=== PATIENT | female | born 1955 | race Caucasian/White ===

== ENCOUNTER 2019-12-22 06:00 | Day surgery (SDC) | payer OTHER ==
[2019-12-20 16:55] VITALS: BMI 16.9
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
[2019-12-22] MEDS ORDERED: KETAMINE HCL 500 MG/10 ML VIAL ONE (09:55)
[2019-12-22] MEDS ORDERED: SUCCINYLCHOLINE CHLORIDE 200 MG/10 ML SYRINGE ONE (10:19)
[2019-12-22 11:52] VITALS: PULSE 69; TEMP 98
[2019-12-22 12:03] VITALS: BP 121/66
== END 2019-12-22 12:00 ==
LOC: FECT 06:00
PROVIDERS: ATTEND Psychiatry & Neurology Psychiatry
PROC: GZB4ZZZ Other Electroconvulsive Therapy (ICD-10-PCS; principal; 2019-12-22 09:00)
DX: F32.9 Major depressive disorder, single episode, unspecified (principal)
CPT/HCPCS: 90870; 94760; U0003

== ENCOUNTER 2019-12-30 06:15 | Day surgery (SDC) | payer OTHER ==
[2019-12-30 07:02] VITALS: TEMP 98.2; BMI 17.0
[2019-12-30] MEDS ORDERED: KETAMINE HCL 500 MG/10 ML VIAL ONE (08:05)
[2019-12-30 09:38] VITALS: BP 124/72; PULSE 72
[2019-12-30] MEDS ORDERED: ONDANSETRON 4 MG/2 ML VIAL IVPUSH PRN (12:57)
[2019-12-30] MEDS ORDERED: LACTATED RINGERS SOLUTION 1,000 ML IV SCH (13:00)
== END 2019-12-30 09:40 | disposition home or self-care (01) ==
LOC: FECT 06:15
PROVIDERS: ATTEND Psychiatry & Neurology Psychiatry
PROC: GZB4ZZZ Other Electroconvulsive Therapy (ICD-10-PCS; principal; 2019-12-30 08:30)
DX: F32.9 Major depressive disorder, single episode, unspecified (principal)
CPT/HCPCS: 90870; 94760; U0003

== ENCOUNTER 2020-01-02 05:56 | Day surgery (SDC) | payer OTHER ==
[2019-12-22 07:53] VITALS: BMI 16.9
[2020-01-02] MEDS ORDERED: PROPOFOL 20 ML ONE ×2 (07:11)
[2020-01-02] MEDS ORDERED: KETAMINE HCL 500 MG/10 ML VIAL ONE (07:12)
[2020-01-02] MEDS ORDERED: SUCCINYLCHOLINE CHLORIDE 200 MG/10 ML SYRINGE ONE (07:12)
[2020-01-02 08:15] VITALS: TEMP 98
[2020-01-02 08:37] VITALS: BP 131/70
[2020-01-02 08:47] VITALS: PULSE 87
== END 2020-01-02 08:48 ==
LOC: FECT 05:56
PROVIDERS: ATTEND Psychiatry & Neurology Psychiatry
PROC: GZB4ZZZ Other Electroconvulsive Therapy (ICD-10-PCS; principal; 2020-01-02 07:30)
DX: F33.2 Major depressive disorder, recurrent severe without psychotic features (principal)
CPT/HCPCS: 90870; 94760; U0003

== ENCOUNTER 2020-01-05 05:49 | Day surgery (SDC) | payer OTHER ==
[2019-12-28 12:06] VITALS: BMI 16.9
[2020-01-05] MEDS ORDERED: KETAMINE HCL 200 MG/20 ML VIAL ONE (07:34)
[2020-01-05] MEDS ORDERED: ONDANSETRON 4 MG/2 ML VIAL ONE (07:50)
[2020-01-05 08:24] VITALS: TEMP 98.4
[2020-01-05 08:52] VITALS: BP 112/76; PULSE 78
== END 2020-01-05 09:00 ==
LOC: FECT 05:49
PROVIDERS: ATTEND Psychiatry & Neurology Psychiatry
PROC: GZB4ZZZ Other Electroconvulsive Therapy (ICD-10-PCS; principal; 2020-01-05 08:00)
DX: F32.9 Major depressive disorder, single episode, unspecified (principal)
CPT/HCPCS: 90870; 94760

== ENCOUNTER 2020-01-06 05:46 | Day surgery (SDC) | payer OTHER ==
[2020-01-05 13:57] VITALS: BMI 16.9
[2020-01-06] MEDS ORDERED: ONDANSETRON 4 MG/2 ML VIAL ONE (07:37)
[2020-01-06] MEDS ORDERED: SUCCINYLCHOLINE CHLORIDE 200 MG/10 ML SYRINGE ONE (07:38)
[2020-01-06] MEDS ORDERED: KETAMINE HCL 500 MG/10 ML VIAL ONE (07:38)
[2020-01-06] MEDS ORDERED: PROPOFOL 20 ML ONE (07:38)
[2020-01-06 08:46] VITALS: TEMP 98
[2020-01-06 08:57] VITALS: BP 122/78; PULSE 69
== END 2020-01-06 09:00 | disposition home or self-care (01) ==
LOC: FECT 05:46
PROVIDERS: ATTEND Psychiatry & Neurology Psychiatry
PROC: GZB4ZZZ Other Electroconvulsive Therapy (ICD-10-PCS; principal; 2020-01-06 11:30)
DX: F32.9 Major depressive disorder, single episode, unspecified (principal)
CPT/HCPCS: 90870; 94760; U0003

== ENCOUNTER 2020-01-10 09:14 | Day surgery (SDC) | payer OTHER ==
[2019-12-21 11:18] VITALS: BMI 16.9
[2020-01-10 12:44] VITALS: TEMP 98.4
[2020-01-10 13:29] VITALS: BP 122/65; PULSE 87
== END 2020-01-10 13:00 | disposition home or self-care (01) ==
LOC: FECT 09:14
PROVIDERS: ATTEND Psychiatry & Neurology Psychiatry
PROC: GZB4ZZZ Other Electroconvulsive Therapy (ICD-10-PCS; principal; 2020-01-10 10:30)
DX: F32.9 Major depressive disorder, single episode, unspecified (principal)
CPT/HCPCS: 90870; 94760; U0003

== ENCOUNTER 2020-01-12 06:10 | Day surgery (SDC) | payer OTHER ==
[2020-01-03 12:29] VITALS: BMI 16.9
[2020-01-12] MEDS ORDERED: KETAMINE HCL 500 MG/10 ML VIAL ONE (07:34)
[2020-01-12 08:41] VITALS: TEMP 98.3
[2020-01-12 08:58] VITALS: BP 118/86; PULSE 75
== END 2020-01-12 09:00 | disposition home or self-care (01) ==
LOC: FECT 06:10
PROVIDERS: ATTEND Psychiatry & Neurology Psychiatry
PROC: GZB4ZZZ Other Electroconvulsive Therapy (ICD-10-PCS; principal; 2020-01-12 09:00)
DX: F32.9 Major depressive disorder, single episode, unspecified (principal)
CPT/HCPCS: 90870; 94760

== ENCOUNTER 2020-01-13 05:56 | Day surgery (SDC) | payer OTHER ==
[2020-01-10 17:27] VITALS: BMI 16.9
[2020-01-13] MEDS ORDERED: KETAMINE HCL 500 MG/10 ML VIAL ONE (07:07)
[2020-01-13] MEDS ORDERED: ONDANSETRON 4 MG/2 ML VIAL ONE (07:16)
[2020-01-13] MEDS ORDERED: ACETAMINOPHEN INJECTION 100 ML IVPB ONE (07:46)
[2020-01-13] MEDS ORDERED: ACETAMINOPHEN 1000 MG/100 ML VIAL (NON FORMULARY) IVPB ONE (07:57)
[2020-01-13 08:12] VITALS: TEMP 97.8
[2020-01-13 08:31] VITALS: BP 128/65; PULSE 76
== END 2020-01-13 09:00 | disposition home or self-care (01) ==
LOC: FECT 05:56
PROVIDERS: ATTEND Psychiatry & Neurology Psychiatry
PROC: GZB4ZZZ Other Electroconvulsive Therapy (ICD-10-PCS; principal; 2020-01-13 10:00)
DX: F32.9 Major depressive disorder, single episode, unspecified (principal)
CPT/HCPCS: 90870; 94760; J0131; U0003

== ENCOUNTER 2020-01-16 06:09 | Day surgery (SDC) | payer OTHER ==
[2020-01-05 08:48] VITALS: BMI 16.9
[2020-01-16] MEDS ORDERED: KETAMINE HCL 500 MG/10 ML VIAL ONE (07:13)
[2020-01-16] MEDS ORDERED: SUCCINYLCHOLINE CHLORIDE 200 MG/10 ML SYRINGE ONE (07:15)
[2020-01-16] MEDS ORDERED: PROPOFOL 20 ML ONE ×2 (07:15)
[2020-01-16] MEDS ORDERED: ONDANSETRON 4 MG/2 ML VIAL ONE (07:20)
[2020-01-16] MEDS ORDERED: KETOROLAC TROMETHAMINE 30 MG/1 ML VIAL ONE (07:48)
[2020-01-16 08:08] VITALS: TEMP 98.7
[2020-01-16 08:26] VITALS: BP 118/70; PULSE 77
[2020-01-16] MEDS ORDERED: KETOROLAC TROMETHAMINE 30 MG/1 ML VIAL IVPUSH ONE (10:41)
== END 2020-01-16 08:35 | disposition home or self-care (01) ==
LOC: FECT 06:09
PROVIDERS: ATTEND Psychiatry & Neurology Psychiatry
PROC: GZB4ZZZ Other Electroconvulsive Therapy (ICD-10-PCS; principal; 2020-01-16 07:30)
DX: F33.2 Major depressive disorder, recurrent severe without psychotic features (principal)
CPT/HCPCS: 90870; 94760; U0003

== ENCOUNTER 2020-01-19 06:04 | Day surgery (SDC) | payer OTHER ==
[2020-01-13 17:40] VITALS: BMI 16.9
[2020-01-19] MEDS ORDERED: KETAMINE HCL 500 MG/10 ML VIAL ONE (07:17)
[2020-01-19] MEDS ORDERED: SUCCINYLCHOLINE CHLORIDE 200 MG/10 ML SYRINGE ONE (07:18)
[2020-01-19] MEDS ORDERED: ACETAMINOPHEN INJECTION 100 ML IVPB ONE (07:41)
[2020-01-19] MEDS ORDERED: ACETAMINOPHEN 1000 MG/100 ML VIAL (NON FORMULARY) IVPB ONE (07:47)
[2020-01-19 08:28] VITALS: TEMP 98.1
[2020-01-19 09:00] VITALS: BP 103/63; PULSE 76
== END 2020-01-19 09:02 | disposition home or self-care (01) ==
LOC: FECT 06:04
PROVIDERS: ATTEND Psychiatry & Neurology Psychiatry
PROC: GZB4ZZZ Other Electroconvulsive Therapy (ICD-10-PCS; principal; 2020-01-19 07:30)
DX: F32.9 Major depressive disorder, single episode, unspecified (principal)
CPT/HCPCS: 90870; 94760; J0131

== ENCOUNTER 2020-01-20 06:49 | Day surgery (SDC) | payer OTHER ==
[2020-01-17 07:35] VITALS: BMI 16.9
[2020-01-20] MEDS ORDERED: LACTATED RINGERS SOLUTION 1,000 ML IV SCH (08:00)
[2020-01-20] MEDS ORDERED: KETAMINE HCL 500 MG/10 ML VIAL ONE (08:36)
[2020-01-20] MEDS ORDERED: PROPOFOL 20 ML ONE (08:48)
[2020-01-20] MEDS ORDERED: KETOROLAC TROMETHAMINE 30 MG/1 ML VIAL ONE ×2 (08:49→09:24)
[2020-01-20] MEDS ORDERED: DEXAMETHASONE SOD PHOSPHATE 4 MG/1 ML VIAL ONE (08:49)
[2020-01-20] MEDS ORDERED: ONDANSETRON 4 MG/2 ML VIAL ONE (08:49)
[2020-01-20 09:53] VITALS: TEMP 97.6
--- NOTE | 2020-01-20 10:19 | HP ---
CHIEF COMPLAINT: Major depressive disorder PCP: Dr. Welch, [facility] Primary Psychiatrist: none at present, needs new outpatient psychiatrist Neurologist: Dr. Chavez, [place] Neurosurgeon: Dr. Hernandez, [facility] HISTORY OF PRESENT ILLNESS: 63 year-old female with a PMH significant for TBI, seizure disorder, s/p vagus nerve stimulator, major depressive disorder with self-harm behaviors, and anorexia. Hospitalized at [facility] in October 2019 and then transferred to [facility] where she currently resides. She presents today for ECT. Recent Events: --pain in left shoulder that radiates at times down back toward shoulder bl marya, at other times down the left arm to fingers with tingling sensation; has been ongoing for several months PAST MEDICAL HISTORY: Traumatic brain injury Seizure disorder Major depressive disorder w/ self-harm behaviors (cutting) Anorexia PAST SURGICAL HISTORY: Vagus nerve stimulator (David, October 2019) Right total knee replacent Rotator cuff repair Social History: former school psychologist, lives alone, 3 dogs Smoking: never Alcohol: monthly or less Drugs: denies Family history: mother 58 rectal cancer; father 73 esophageal cancer; estranged siblings; no children Allergies carbamazepine [From Tegretol] Allergy (Severe, Verified 01/20/20 07:12) DECREASED WBC Penicillins Allergy (Severe, Verified 01/20/20 07:12) Rash vancomycin Allergy (Severe, Verified 01/20/20 07:12) Rash gabapentin Adverse Reaction (Severe, Verified 01/20/20 07:12) Vomiting phenytoin [From Dilantin] Adverse Reaction (Severe, Verified 01/20/20 07:12) Vomiting TAPE Allergy (Intermediate, Uncoded 01/20/20 07:12) Rash HOME MEDICATIONS: Home Medications Medication Instructions Recorded Cholecalciferol (Vitamin D3) 25 mcg PO DAILY 12/20/19 [Vitamin D3] Clonazepam 1 mg PO TID 12/20/19 Diphenhydramine [Benadryl Capsule 50 mg PO HS 12/20/19 -] Famotidine 20 mg PO DAILY 12/20/19 Ferrous Gluconate [Fergon -] 324 mg PO BID 12/20/19 Lamotrigine 100 mg PO BID 12/20/19 Zonisamide 100 mg PO BID 12/20/19 Fluoxetine HCl [Prozac] 60 mg PO DAILY 01/06/20 Prazosin HCl [Minipress -] 1 mg PO HS 01/06/20 traZODone HCL [Trazodone HCl] 100 mg PO HS 01/06/20 REVIEW OF SYSTEMS CONSTITUTIONAL: Absent: fever, chills, diaphoresis, generalized weakness, malaise, loss of appetite, weight change HEENT: Absent: rhinorrhea, nasal congestion, throat pain, throat swelling, difficulty swallowing, mouth swelling, ear pain, eye pain, visual changes CARDIOVASCULAR: Absent: chest pain, syncope, palpitations, irregular heart rate, lightheadedness, peripheral edema RESPIRATORY: Absent: cough, shortness of breath, dyspnea with exertion, orthopnea, wheezing, stridor, hemoptysis GASTROINTESTINAL: Absent: abdominal pain, abdominal distension, nausea, vomiting, diarrhea, constipation, melena, hematochezia GENITOURINARY: Absent: dysuria, frequency, urgency, hesitancy, hematuria, flank pain, genital pain MUSCULOSKELETAL: Absent: myalgia, arthralgia, joint swelling, back pain, neck pain SKIN: Absent: rash, itching, pallor HEMATOLOGIC/IMMUNOLOGIC: Absent: easy bleeding, easy bruising, lymphadenopathy, frequent infections ENDOCRINE: Absent: unexplained weight gain, unexplained weight loss, heat intolerance, cold intolerance NEUROLOGIC: Absent: headache, focal weakness or paresthesias, dizziness, unsteady gait, seizure, mental status changes, bladder or bowel incontinence PHYSICAL EXAMINATION Vital Signs - 24 hr 01/20/20 01/20/20 07:17 09:40 Temperature 98 F 97.6 F Pulse Rate 66 69 Respiratory 18 18 Rate Blood Pressure 115/73 129/75 O2 Sat by Pulse 99 97 Oximetry (%) GENERAL: Awake, alert, and fully oriented, in no acute distress. HEAD: Normal with no signs of trauma. EYES: Pupils equal, round and reactive to light, sclera anicteric, conjunctiva clear. LUNGS: Breath sounds equal, clear to auscultation bilaterally. No wheezes, and no crackles. No accessory muscle use. HEART: Regular rate and rhythm, normal S1 and S2 ABDOMEN: Soft, nontender, not distended MUSCULOSKELETAL: Normal range of motion at all joints. No bony deformities or tenderness. No CVA tenderness. UPPER EXTREMITIES: 2+ pulses, warm, well-perfused. No cyanosis. No clubbing. No peripheral edema. LOWER EXTREMITIES: 2+ pulses, warm, well-perfused. No calf tenderness. No peripheral edema. NEUROLOGICAL: Cranial nerves II-XII intact. Normal speech. Vagus nerve simulator left axilla, mildly tender SKIN: scars on arms and legs, all well-healed ASSESSMENT/PLAN: 63 year-old female with a PMH significant for TBI, seizure disorder, s/p vagus nerve stimulator, major depressive disorder with self-harm behaviors, and anorexia. Presents today for ECT. Neuro --vagus nerve stimulator placed October 2019, shortly thereafter developed left shoulder pain that sometimes radiates down left arm to fingers with paresthesias --needs follow up with Dr. Hernandez --called medical voucher clerk of [place] Dr. Gaston [phone]; will follow up Cardiac --no cardiac history --Revised Cardiac Risk Index for Pre-Operative Risk: 0 points, 0.4% risk of major cardiac event Pulmonary --no pulmonary history Neurological --no neurological or neurosurgical history; no history of trauma Anesthesia --no reported problems with anesthesia ECT is a low risk procedure. The relative benefits of the planned procedure outweigh the relative risks for this patient at this time. Visit type - Emergency Visit Emergency Visit: No - New Patient This patient is new to me today: Yes Date on this admission: 01/20/20 - Critical Care Critical Care patient: No
[2020-01-20 10:29] VITALS: BP 112/62; PULSE 76
== END 2020-01-20 10:20 | disposition home or self-care (01) ==
LOC: FECT 06:49
PROVIDERS: ATTEND Psychiatry & Neurology Psychiatry
PROC: GZB4ZZZ Other Electroconvulsive Therapy (ICD-10-PCS; principal; 2020-01-20 09:00)
DX: F33.2 Major depressive disorder, recurrent severe without psychotic features (principal)
CPT/HCPCS: 90870; 94760; U0003

== ENCOUNTER 2020-01-26 05:54 | Day surgery (SDC) | payer OTHER ==
[2020-01-24 07:58] VITALS: BMI 16.9
[2020-01-26 06:32] VITALS: TEMP 98.1
[2020-01-26] MEDS ORDERED: ePHEDrine SULFATE 50 MG/1 ML AMPULE ONE (06:42)
[2020-01-26] MEDS ORDERED: PROPOFOL 20 ML ONE (06:42)
[2020-01-26] MEDS ORDERED: SUCCINYLCHOLINE CHLORIDE 200 MG/10 ML SYRINGE ONE (06:43)
[2020-01-26] MEDS ORDERED: KETAMINE HCL 200 MG/20 ML VIAL ONE (07:12)
[2020-01-26 08:22] VITALS: BP 112/64; PULSE 71
== END 2020-01-26 08:38 | disposition home or self-care (01) ==
LOC: FECT 05:54
PROVIDERS: ATTEND Psychiatry & Neurology Psychiatry
PROC: GZB4ZZZ Other Electroconvulsive Therapy (ICD-10-PCS; principal; 2020-01-26 07:30)
DX: F32.9 Major depressive disorder, single episode, unspecified (principal)
CPT/HCPCS: 90870; 94760

== ENCOUNTER 2020-01-27 06:08 | Day surgery (SDC) | payer OTHER ==
[2020-01-24 08:02] VITALS: BMI 16.9
[2020-01-27] MEDS ORDERED: PROMETHAZINE HCL 25 MG/1 ML VIAL IVPUSH PRN (06:56)
[2020-01-27] MEDS ORDERED: ACETAMINOPHEN 325 MG TABLET (FP) PO PRN (06:56)
[2020-01-27] MEDS ORDERED: LACTATED RINGERS SOLUTION 1,000 ML IV SCH (07:00)
[2020-01-27] MEDS ORDERED: KETAMINE HCL 500 MG/10 ML VIAL ONE (07:05)
[2020-01-27] MEDS ORDERED: SUCCINYLCHOLINE CHLORIDE 200 MG/10 ML SYRINGE ONE (07:18)
[2020-01-27] MEDS ORDERED: PROPOFOL 20 ML ONE ×2 (07:18)
[2020-01-27] MEDS ORDERED: DEXAMETHASONE SOD PHOSPHATE 4 MG/1 ML VIAL ONE (07:19)
[2020-01-27] MEDS ORDERED: LIDOCAINE HCL/PF 2% SDV 5ML VIAL ONE (07:19)
[2020-01-27] MEDS ORDERED: KETOROLAC TROMETHAMINE 30 MG/1 ML VIAL ONE (07:19)
[2020-01-27] MEDS ORDERED: ONDANSETRON 4 MG/2 ML VIAL ONE (07:19)
[2020-01-27 08:27] VITALS: BP 125/75; PULSE 77; TEMP 98.6
== END 2020-01-27 08:30 ==
LOC: FECT 06:08
PROVIDERS: ATTEND Psychiatry & Neurology Psychiatry
PROC: GZB4ZZZ Other Electroconvulsive Therapy (ICD-10-PCS; principal; 2020-01-27 09:00)
DX: F32.9 Major depressive disorder, single episode, unspecified (principal)
CPT/HCPCS: 90870; 94760; U0003

== ENCOUNTER 2020-01-30 05:54 | Day surgery (SDC) | payer OTHER ==
[2020-01-27 18:08] VITALS: BMI 16.9
[2020-01-30] MEDS ORDERED: KETAMINE HCL 500 MG/10 ML VIAL ONE (07:40)
[2020-01-30] MEDS ORDERED: ACETAMINOPHEN INJECTION 100 ML IVPB ONE (07:58)
[2020-01-30] MEDS ORDERED: ACETAMINOPHEN 1000 MG/100 ML VIAL (NON FORMULARY) IVPB ONE (08:04)
[2020-01-30] MEDS ORDERED: LACTATED RINGERS SOLUTION 1,000 ML IV SCH (08:15)
[2020-01-30 09:11] VITALS: BP 119/61; PULSE 75; TEMP 98
== END 2020-01-30 09:17 | disposition home or self-care (01) ==
LOC: FECT 05:54
PROVIDERS: ATTEND Psychiatry & Neurology Psychiatry
PROC: GZB4ZZZ Other Electroconvulsive Therapy (ICD-10-PCS; principal; 2020-01-30 07:30)
DX: F32.9 Major depressive disorder, single episode, unspecified (principal)
CPT/HCPCS: 90870; 94760; J0131; U0003

== ENCOUNTER 2020-02-02 05:51 | Day surgery (SDC) | payer OTHER ==
[2020-01-30 08:06] VITALS: BMI 16.9
[2020-02-02] MEDS ORDERED: LOCK ITEM NR ONE (06:44)
[2020-02-02] MEDS ORDERED: KETAMINE HCL 500 MG/10 ML VIAL ONE (07:30)
[2020-02-02] MEDS ORDERED: PROPOFOL 20 ML ONE (07:32)
[2020-02-02] MEDS ORDERED: SUCCINYLCHOLINE CHLORIDE 200 MG/10 ML SYRINGE ONE (07:32)
[2020-02-02] MEDS ORDERED: KETOROLAC TROMETHAMINE 30 MG/1 ML VIAL ONE (07:35)
[2020-02-02] MEDS ORDERED: DEXAMETHASONE SOD PHOSPHATE 4 MG/1 ML VIAL ONE (07:35)
[2020-02-02] MEDS ORDERED: ONDANSETRON 4 MG/2 ML VIAL ONE (07:35)
[2020-02-02] MEDS ORDERED: ONDANSETRON 4 MG/2 ML VIAL IVPUSH PRN (08:01)
[2020-02-02] MEDS ORDERED: LACTATED RINGERS SOLUTION 1,000 ML IV SCH (08:15)
[2020-02-02] MEDS ORDERED: ACETAMINOPHEN INJECTION 100 ML IVPB ONE (08:20)
[2020-02-02] MEDS ORDERED: ACETAMINOPHEN 1000 MG/100 ML VIAL (NON FORMULARY) IVPB ONE ×2 (08:23→09:23)
[2020-02-02 08:58] VITALS: TEMP 98.3
[2020-02-02 09:10] VITALS: BP 118/65; PULSE 65
== END 2020-02-02 09:10 ==
LOC: FECT 05:51
PROVIDERS: ATTEND Psychiatry & Neurology Psychiatry
PROC: GZB4ZZZ Other Electroconvulsive Therapy (ICD-10-PCS; principal; 2020-02-02 08:30)
DX: F32.9 Major depressive disorder, single episode, unspecified (principal)
CPT/HCPCS: 90870; 94760; J0131; U0003

== ENCOUNTER 2020-02-03 05:53 | Day surgery (SDC) | payer OTHER ==
[2020-02-03 06:46] VITALS: BMI 18.5
[2020-02-03] MEDS ORDERED: KETAMINE HCL 500 MG/10 ML VIAL ONE (07:13)
[2020-02-03] MEDS ORDERED: KETOROLAC TROMETHAMINE 30 MG/1 ML VIAL ONE (07:15)
[2020-02-03] MEDS ORDERED: PROPOFOL 20 ML ONE (07:15)
[2020-02-03] MEDS ORDERED: DEXAMETHASONE SOD PHOSPHATE 4 MG/1 ML VIAL ONE (07:15)
[2020-02-03] MEDS ORDERED: ONDANSETRON 4 MG/2 ML VIAL ONE (07:15)
[2020-02-03] MEDS ORDERED: LIDOCAINE HCL/PF 2% SDV 5ML VIAL ONE (07:15)
[2020-02-03] MEDS ORDERED: SUCCINYLCHOLINE CHLORIDE 200 MG/10 ML SYRINGE ONE (07:15)
[2020-02-03 08:25] VITALS: TEMP 97.5
[2020-02-03 08:48] VITALS: BP 112/71; PULSE 71
== END 2020-02-03 08:49 | disposition home or self-care (01) ==
LOC: FECT 05:53
PROVIDERS: ATTEND Psychiatry & Neurology Psychiatry
PROC: GZB4ZZZ Other Electroconvulsive Therapy (ICD-10-PCS; principal; 2020-02-03 08:30)
DX: F32.9 Major depressive disorder, single episode, unspecified (principal)
CPT/HCPCS: 90870; 94760

== ENCOUNTER 2020-02-06 05:47 | Day surgery (SDC) | payer OTHER ==
[2020-01-30 16:38] VITALS: BMI 16.9
[2020-02-06] MEDS ORDERED: KETAMINE HCL 500 MG/10 ML VIAL ONE (07:06)
[2020-02-06] MEDS ORDERED: PROPOFOL 20 ML ONE (07:23)
[2020-02-06 08:35] VITALS: TEMP 98.2
[2020-02-06 09:03] VITALS: BP 118/68; PULSE 72
== END 2020-02-06 09:04 | disposition home or self-care (01) ==
LOC: FECT 05:47
PROVIDERS: ATTEND Psychiatry & Neurology Psychiatry
PROC: GZB4ZZZ Other Electroconvulsive Therapy (ICD-10-PCS; principal; 2020-02-06 08:00)
DX: F32.9 Major depressive disorder, single episode, unspecified (principal)
CPT/HCPCS: 90870; 94760; U0003

== ENCOUNTER 2020-02-09 06:37 | Day surgery (SDC) | payer OTHER ==
[2020-01-30 14:28] VITALS: BMI 16.9
--- OUTSIDE RECORDS SUMMARY | 2020-02-09 06:51 | XMS ---
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 means 09:19:00 AM Health - EDT [facility] F22 Delusional Delusional Diagnosis 08/03/2019 [place] disorders disorders 09:19:00 AM Health - EDT [facility] R41.3 Other amnesia Other amnesia Diagnosis 07/15/2019 [place] 12:53:00 PM Health - EDT [facility] R07.81 Pleurodynia Rib pain Diagnosis 06/16/2019 [facility] 03:00:00 PM ([facility]) S06.0x0D Concussion without Head concussion, Diagnosis 06/16/2019 [facility] loss of without loss of 03:00:00 PM ([facility] consciousness, consciousness, [facility] Medica [facility] - [facility] subsequent [facility]) S09.90xA Unspecified injury Injury of head, Diagnosis 06/16/2019 [facility] of head, initial initial encounter 03:00:00 PM ([facility] encounter EST Medical - [facility]) Surgeries/Procedures Procedure Description Date Indications Data Source(s) OFFICE/OUTPATIENT OFFICE/OUTPATIENT 06/16/2019 [facility] EN ([facility] VISIT EST VISIT EST 12:00:00 AM Medical - [facility]) Results ID Date Data Source [id number] 02/02/2020 09:06:00 AM EDT [facility] Name Value Range Interpretation Description Data Sup porting Code Source(s) Document(s ) SARS [facility] coronavirus 2 RNA This lab was ordered by [facility] KAREN paredes [facility] and reported by [facility]. ID Date Data Source [id number] 01/30/2020 09:01:00 AM EDT [facility] Name Value Range Interpretation Description Data Sup porting Code Source(s) Document(s ) SARS [facility] coronavirus 2 RNA This lab was ordered by [facility] KAREN Mares raheel [facility] and reported by [facility]. ID Date Data Source [id number] 01/27/2020 08:37:00 AM EDT [facility] Name Value Range Interpretation Description Data Sup porting Code Source(s) Document(s ) SARS [facility] coronavirus 2 RNA This lab was ordered by [facility] KAREN paredes [facility] and reported by [facility]. ID Date Data Source [id number] 01/23/2020 08:41:00 AM EDT [facility] Name Value Range Interpretation Description Data Sup porting Code Source(s) Document(s ) SARS [facility] coronavirus 2 RNA [facility] and reported by [facility]. ID Date Data Source [id number] 01/20/2020 10:01:00 AM EDT [facility] Name Value Range Interpretation Description Data Sup porting Code Source(s) Document(s ) SARS [facility] coronavirus 2 RNA [facility] and reported by [facility]. ID Date Data Source [id number] 01/16/2020 08:30:00 AM EDT [facility] Name Value Range Interpretation Description Data Sup porting Code Source(s) Document(s ) SARS [facility] coronavirus 2 RNA This lab was ordered by [facility] KAREN paredes [facility] and reported by [facility]. ID Date Data Source [id number] 01/13/2020 10:28:00 AM EDT [facility] Name Value Range Interpretation Description Data Sup porting Code Source(s) Document(s ) SARS [facility] coronavirus 2 RNA [facility] and reported by [facility]. ID Date Data Source [id number] 01/10/2020 01:20:00 PM EDT [facility] Name Value Range Interpretation Description Data Sup porting Code Source(s) Document(s ) SARS [facility] coronavirus 2 RNA [facility] and reported by [facility]. ID Date Data Source [id number] 01/06/2020 08:55:00 AM EDT [facility] Name Value Range Interpretation Description Data Sup porting Code Source(s) Document(s ) SARS [facility] coronavirus 2 RNA [facility] lab [facility] and reported by [facility]. ID Date Data Source [id number] 01/02/2020 08:21:00 AM EDT [facility] Name Value Range Interpretation Description Data Sup porting Code Source(s) Document(s ) SARS [facility] coronavirus 2 RNA [facility] and reported by [facility]. ID Date Data Source [id number] 12/30/2019 10:00:00 AM EDT [facility] Name Value Range Interpretation Description Data Sup porting Code Source(s) Document(s ) SARS [facility] coronavirus 2 RNA [facility] lab [facility] and reported by [facility]. ID Date Data Source [id number] 12/28/2019 12:08:00 PM EDT [facility] Name Value Range Interpretation Description Data Sup porting Code Source(s) Document(s ) SARS [facility] coronavirus 2 RNA This lab was ordered by LEMUEL KAREN paredes [facility] and reported by [facility]. ID Date Data Source [id number] 12/22/2019 11:30:00 AM EDT [facility] Name Value Range Interpretation Description Data Sup porting Code Source(s) Document(s ) SARS [facility] coronavirus 2 RNA This lab was ordered by [facility] KAREN paredes [facility] and reported by [facility]. ID Date Data Source [id number] 12/19/2019 02:48:00 PM EDT [facility] Name Value Range Interpretation Description Data Sup porting Code Source(s) Document(s ) SARS [facility] coronavirus 2 RNA [facility] and reported by [facility]. ID Date Data Source [id number] 12/15/2019 12:00:00 AM EDT [facility] Name Value Range Interpretation Code Description Data Migdalia rce(s) Supporting Document(s ) 2018-nCoV [facility] RNA XXX ELIZABETH+probe- Imp This lab was ordered by [facility] and reported by [employer] ID Date Data Source [id number] 10/14/2019 12:00:00 AM EDT [facility] Name Value Range Interpretation Code Description Data Migdalia rce(s) Supporting Document(s ) 2018-nCoV [facility] RNA XXX ELIZABETH+probe- Imp This lab was ordered by [facility] and reported by [employer] ID Date Data Source [id number] 08/17/2019 08:19:00 AM EDT [facility] Name Value Range Interpretation Description Data Sup porting Code Source(s) Document(s ) Neut Auto 57.1 % 40.0-70.0 NO [facility] Lymph Auto 29.3 % 22.0-44.0 NO [facility] Assumption Auto 10.5 % 4.0-11.0 NO [facility] Eos Auto 2.4 % 0.0-8.0 NO [facility] Baso Auto 0.7 % 0.0-3.0 [facility] Neut 2.3 1.8-7.7 NO [place] Absolute x10(3)/[facility] Lymph 1.2 1.0-4.8 NO [place] Absolute x10(3)/[facility] Assumption 0.4 0.2-1.2 NO [place] Absolute x10(3)/[facility] Eos Absolute 0.1 0.0-0.9 NO [place] x10(3)/[facility] Baso 0.0 0.0-0.3 NO [place] Absolute x10(3)/[facility] ID Date Data Source [id number] 08/17/2019 08:19:00 AM EDT [facility] Name Value Range Interpretation Description Data Sup porting Code Source(s) Document(s ) WBC 3.9 4.5-11.0 LO [place] x10(3)/[facility] RBC 3.39 4.00-5.20 LO [place] x10(6)/[facility] Hgb 10.5 12.0-16.0 LO [place] gm/dL [facility] Hct 31.2 % 36.0-46.0 [facility] MCV 92 fL 80-100 NO [facility] MCH 31.0 pg 26.0-34.0 NO [facility] MCHC 33.8 31.0-37.0 NO [place] gm/dL [facility] RDW 13.3 % 11.5-14.5 [facility] Platelet 222 150-350 NO [place] x10(3)/[facility] MPV 7.8 fL 7.4-10.4 NO [facility] ID Date Data Source [id number] 08/16/2019 08:30:00 AM EDT [facility] Name Value Range Interpretation Description Data Sup porting Code Source(s) Document(s ) Magnesium 2.1 mg/dL 1.6-2.5 NO [facility] ID Date Data Source [id number] 08/16/2019 08:30:00 AM EDT [facility] Added by Discern Rule [id number]_[id number] Name Value Range Interpretation Code Description Data Migdalia rce(s) Supporting Document(s ) eGFR-AA >90 >=60 [facility] mL/min/1.[address] [place] [address] The CKD-EPI equation for non- [place] individuals is used to calculate the estimated glomerular filtration rate (GF R). To estimate the GFR for Americans, multiply the provided GFR res ult by 1.16. The CKD-EPI equation is validated in individuals 18 years of age or older. It is less accurate in patients with extremes of muscle mass, restrictio n of dietary protein, ingestion of creatine, extra-renal metabolism of creatinine, or treatment with medications that affect renal tubular creatinine secretion.GFR Categor ies in Chronic Kidney Disease (CKD)GFR Category: GFR (mL/min/1.73 m2): Inte rpretation: G1 90 or greater Normal or high*G2 60-89 Mild decrease* G3a 45-59 Mild to moderate [id number] 30-44 Moderate to s evere decreaseG4 15-29 Severe decreaseG5 14 or less Kidney fa ilure eGFR-ELIZABEHT >90 mL/min/1.73m2 >=60 NO [facility] The CKD-EPI equation for non- [place] individuals is used to calculate the estimated glomerular filtration rate (GF R). To estimate the GFR for Americans, multiply the provided GFR res ult by 1.16. The CKD-EPI equation is validated in individuals 18 years of age or older. It is less accurate in patients with extremes of muscle mass, restrictio n of dietary protein, ingestion of creatine, extra-renal metabolism of creatinine, or treatment with medications that affect renal tubular creatinine secretion.GFR Categor ies in Chronic Kidney Disease (CKD)GFR Category: GFR (mL/min/1.73 m2): Inte rpretation: G1 90 or greater Normal or high*G2 60-89 Mild decrease* G3a 45-59 Mild to moderate [id number] 30-44 Moderate to s evere decreaseG4 15-29 Severe decreaseG5 14 or less Kidney fa ilure ID Date Data Source [id number] 08/16/2019 08:30:00 AM EDT [facility] Name Value Range Interpretation Description Data Sup porting Code Source(s) Document(s ) Glucose Lvl 97 mg/dL 65-99 NO [facility] BUN 13.0 7.0-21.0 NO [place] mg/dL [facility] Creatinine 0.66 0.40-1.0 NO [place] mg/dL 0 [facility] BUN/Creat 19.7 7.0-29.0 NO [place] Ratio ratio [facility] S[facility] Lvl 136 136-146 [facility] Potassium Lvl 3.8 3.5-5.1 [place] mmol/L [facility] Chloride 104 98-109 NO [place] mmol/L [facility] CO2 23 17-33 [place] mmol/L [facility] AGAP 9 5-15 NO [facility] Calcium Lvl 8.3 8.3-10.2 NO [place] mg/dL [facility] ID Date Data Source [id number] 08/15/2019 04:31:00 PM EDT [facility] Name Value Range Interpretation Code Description Data Supporting Source(s) Document(s ) Physician No PuriVPLZPh3kPg QKJeL [id number] [id number] [facility] [id number] 5cGUv Center Iz3utF4HBI NlRm9 vjO4TFUe7G XRpY2 BwNZ2oa1Pt bmcvV 9jkTF2bfJM uY29k aW2gMx5RXC 5kb2J qCjIgMCBvY moKPD wvRmlsdGVy L0ZsY DWhHDUzj1S lL0xl jtb9rVVqWF 4+c3R yZWFtCnicK +QCAA NoPAaLPF6l c3RyZ WFtCmVuZG9 iagoz MJFyl3BjDc w8L0Z gnAKbvz2Cq GF0ZU MlH71rPG0G ZW5nd GggNjk+PnN 0cmVh iQm8eVOY9K rk0o/ INFAwNFAIS eNyCu EyVDAAQkMF I1MLP XNTBQtDPQs jhZBc Yv3TxTNXuI h+Rad hQemDm8sNB yAXAL GwXg6HHA3s c3RyZ WFtCmVuZG9 iago0 QNLpd8UnKk w8L1B aY1RMr3CgU 1VzZU 5vbmUvTmFt ZXMgN SAwIFIvVHl wZS9D YHXomN7cO8 91dGx pbmVzIDYgM CBSL1 XdA0WtQClz MCBSL 1ZpZXdlclB yZWZl mfVrQ1XwVB ggMCB AXz0LIG7oc 2JqCj cgMCBvYmoK PDwvS 9bdj8s1UWI gUl0v LAknNC3FQG dlcy9 Rk1CxpNHhC 0lUWF CvLp6mSlmt Pj4KZ R8rl1BqBdC gMCBv YmoKPDwvQ2 91bnQ nJE4NvYPjs CAxMC AwIFIvTGFz dCAxM CAwIFI+Pgp lbmRv YmoKMTEgMC BvYmo FAt3XK1QWG XNlZC AxMiAwIFJd CmVuZ S8phhkzVfR wIG9i tcu0CK5VlD x0ZXI vRmxhdGVEZ WNvZG EpYYAzY8Al IDI1O TYvTiAzPj5 zdHJl EF1ZpCoyjt dUU9k Wh8+9N71Qk hCKlN AsbRLLOX05 SJEuK jEJEErAkAA iNkRU cERRkaYIMi jggKN DkbEiioUBU bHrBB fM1RCdOCmJ SWStG d+8ee/Nm98 f935r j80K3Bzzss a6AJD 8gwXCTFgJg AyhWB Qq80PDnKdd YAcBD EWIC1aZ9GQ zs0IW +MGSzUG72A xsmRP 7P186HaY9+ yrTP4 zBAP+flLlZ IjEAU JiM5/L42Vw ZF8k4 PVecJbdPyZ i2NE3 OMErOIlmCM laTc/ VcX5v4hKKC OfMyh KpKp5AL2iI w5Nwn 5641Hu9SvZ AZF+c I+LkyviZjg 3RJhk DGb+SxGXxO NgAok zjx5bZUGHp tY5Io IuHj32hV5S jJX/D JG4nNlvQAI 8XOzF ouEiSniBkm XFOGj ZMTi+HPz03 ni8XM HG36mGLtBs iZGVk w7JHSDj/8W RR5bR myIjvYODk4 MG0tb g3b8Z0x/Ju S93aW XoR/7hlEH/ jD9ld +bI7EoJKhq dn6h2 3cMQAt6oGA u/2Hz WAvAIqyvnU OfXEe unxeUsTiLG crq9z xVAmDf4ixP +jv+p 0Ym2UyoZ4B vt3v5 OS367R3iwY xQ143 rxZ2eiCRpP 7icPk M5p+H+B8H/ nUeFh A0KZ2SA8TE RMumT CBMlrVbyBO IBZlC dvU1y7u8A4 P+pNm 5lona+BHQl lgCpS TdYL0mVQkt ESAJe 6Ou3D12O0X [place]/nN b0DGlH27w6 L+fVe 3ZB4KXxA/j mNHRD A7TiLS5Gd4 WgI0I ABFQAPqQBv oAxPA BLbAEbgAD+ ADAkE oiARxYDHgg hSQAU QgFxSAtaAY lIKtY CeoBnWgETS DNnAY vBXh4ZN2Nj 6By2A J8HYWNX5nh CnwCs xAEISFyBAV Uod0I EPIHLKFWJA b5AMF QxFQHJQIJU NCSAI VQOugUqgcq obqoW boW+godBq6 AA1Dt 1PYwKT0WCs HIzAJ psFasBFsBb NgTzg IjoQXwcnwM jgfLo B6xIPsP1sO 7oRPw 2hoULsDC1R nEYAQ ETqiizARFs JGQpF 4JAkRIauQE qQCaU XpuN7lU0oU SJGny FsUBkVFMVB MlAvK GoDP0fKLzP ahNqO qUQdQnag+1 FXUKG gP7MXZSmtm zdHO6 JE5IXjCeAw uRleg s4Bg3OQhBf Q4+hU Bk1QjqYYJX H9MHC YVswKzGbMb 0445h RnGjGGmsVi sOtYc 64oNxXKwYm wxtgp 8IXiUchV4w n2DI+ X8nSS9Z9p7 Togrx FXgWnAncFd wE7gZ vBLeEO+MD8 Xz8Mv xZfhGfA9+C D+Suzy CjZ5bIteIQ QiphL rYY9KU5G3k LeEEk EvWITsRwoo C4hlh NEAO6Cwnzn iVRSG YkNimBJCFt Ie0nn WSjWb6oj9i GZA9y ROcK3sHuXk 8h3ye /UaAqWCoEK PAUVi vUKHQqXFF4 pohXN QK8CKvtfI8 YoXhE cUjxqRJeyU iJrcR XQbPZh9BC8 YbStD RU2XF6LObM ebNyi /RP4JnKDAB I4kPh UYoo+yhnKG NUhKp CQBA97YLID upZ6j gNQzOmBdBS aaW0b 2iDtCkVioq dSrRK nkqNynEVKR 2hG9E T7Wq1Hssz+ nX6O1 EiDJ3Nzhaw 1TbVK 6gk8wrtmfs x1UrU 1pAV7W5iR9 R91NP Zj1f4qc/TQ GmYaY As4Npp8Bvz 8XQOb R4ICY0ahhl H59zW uOAFCNJ7J9 ju0xz SoOdI8jIGj tKq0j tl3GGxkv9e naq9Q /dF5zAKNhs NR6Cz Q+ekzmOGCs OTkc6 lPRYduuW6w f11Jb m7leG6V5hC elF6h Ixzsuw7Sup s/ST9 Hfq9+lMGOg YhBgU FhDc4OaUCQ MMUw1 2G/YavjYyN Yow2G HUZPTJWMw4 wzjdu Yg5iKdTaG5 lm0mB yzRRjyjJNM 91tet cJDeV3UnWw MRsyh 92tiSRly71 HLdAW ThZCiwaLG0 wS05O Ds4gagkyRQ YMtCy 93AA7JMTyI W22z6 eh5rG8ccT9 daH3H nqNFyFQk70 Pzq62 LQel1rqpkU PJc37 hg95lXbH5e bse32 9I6638yZ0M /wb7X /fGYh0FEsc 1h0tH NCqMe6hTCn 8YKY2 9syTnFL0j9 rXY65 mWN6iNG9Ex Y+RcX fvmzN3fOg7 nG8/j oErnAxgg0w lzrXa NmQGyDu25c Unddd 457g/sDD30 PnkeT c5KpjQiw04 HPZ17 WXiKvDq/Xb Gf2Sv Dyg7Bms9lU e9CH4 hPlU+1z31f PN9m3 0OiYw09sba 8pf7R /kP82/xsBW gHcgO aAqUDHwJWB fUGko WIJ6QWBjy0 CRcE9 MEFLFDt1bA vzDec W95yBbyRS4 O2h98 EWe7bGzA+O CQ8Lr wl/GGETURD Rv4C6 YMmClgWvIr 0iyyL mTIkDAeY3c xWjE6 Kbo1/HeMeU x0hjr KHFts6T05n TxHXH Y+Ev02csoo f6LNy 5uRoTQpO33 foi40 D1jg4l8ify vvj4E sUlnCVHEtG JMYkt fw43eHtXxk TSgKW 2Q5l3zY4d9 hOeB2 1Fc2Hekg/n TyS5J eRiPVr3Dl8 ePJni rtCK2lMLWx QLnqf 9f3lpgi1XT duf9i j1Dm51Q8vC mHFUS BGmCfsytTP zMoez dETJb3RDcW ftXDY tXuP3JBZJb 7K7xT KTg3HLcKFd XjKa4 5ZTk/MmNzr 3SJ5y onSsNSvZ5e 3LJ/J 9879egVrBX dFboF xhmwV6wlpO +lXQq qWrelfrry5 aPb7G m76IuLB2nM t/KLQ cIZ72kF7eC U+RVt AulaC0boed ixWKR oT9KczhnBh I2ijY WVrb1cxwHG 9LeCU PW78SX6fjy +Zuvv rYzTvUF58m krRls PkiaO1InHz h1uvb 3LcdKFcuzy 8f2x6 wuAPPK2dNr pc7l+ k2UHZRUulM sEuyS 1oZXNldZVC 1tep9 gQi7BH8RXV utZu2 c0qa2ugbz7 PHY01 axMRum271a YO/Ne r/6zgajhop 9mH05 +c34Lsn3t0 36url Dr5i03dC+4 X7pgY zLxu0Zzn7m mi1lr XCrpHXyYML By994 h0Gfgmzib8 e3lx4 ChySHHn+b+ O31w0 GHe4+wjrR9 Z/hdb Zq6d4RG1cx eOdWV 0iXtjusePh p4tLf Udmjkb2so1 x/TPV ZiNHM33HyS iaITn 07mn5w+lXX q6enk 22R1P9lqoS k9c60 vvG/wbNDZ8 +d8z5 3p9+w/ed71 /LELz odXInWr5Av kcKlz pV0i4nq5Od oGHQY 3xnnQln52W e4Znj u86tk0jwVR va+eu sZa9hMU/JH h61HX p07KpGP0em v56Fb 8ydi6s67X1 FlzF3 463W9ThTs9 mvcbf sI9tX8nVT4 +6j06 4HICgpth5J EnP2X /3E851RZ7X cWEzk QrS7iOznM9 Jy8/X vh4/EnWk5m nxT8r /6q4lBGJo8 94/DI wFTs1/lz0/ NOvm1 +ov9j/0u5l 73TY9 W7TXa1vWzk 8UX9z 4C3rbf+7mH cTM7n lgb6gK1b+6 PkY9P Wzl8zOd95S 94Tz+ wplbmRzdHJ lYW0K KB6eo3KeYw EzIDA jo1JnKfa9P 0NvbG 5nI7VjO9Uq RGV2a MQuI5OpvG8 IZWln aHQgMjkvU3 VidHl cEC0QuHLbZ S9GaW f1ARRiSrgs dGVEZ WNvZGUvVHl wZS9Y N6YhODO5R0 dpZHR jRGN8Cd7JT W5ndG ggMjgvQml0 c1Blc kNvbXBvbmV udCA4 Tu0yxKRhHB 0KeJz twTEBAAAAw qD+qW eIC8ZABMRU AB4G+ 2OKjwplbmR zdHJl BD2GNP7tn3 JqCjE 2UUCbf0UeH jw8L0 RijB0jQ0Fx Y2VbL 2qVB5Ycn9V kIDEy HWIqKp1vWS VpZ2h 6TAV2E1C3I nR5cG FeIW5mB8Sr Rmlsd CCzL7AoQJK lRGVj x8PlX9B9aI UvWE9 arnOtpU9SP WNvZG VQYXJtczw8 L0Nvb HVtbnMgMTg yL0Nv oR7sxdUwP9 ByZWR nX5UaihZoE S9CaX KpDWUxF28a cG9uZ W50IDg+Pi9 XaWR0 aCAxODIvU0 1hc2s gMTMgMCBSL 0JpdH GHZXKCe08x b25lb sGqEB9HbaG lcnBv kRP8TBP6ph VlL0x jkbx8wEW9P DQ1Pj 8ufCXhDO7T eNrtm wlUVEfWx2/ iJHMm 0bhGWRqatW VzwSW OE+PESEKMi iua0T gaYjQRjQIa AiKgQ NN00/vCqoC ANoLs n9AVwbpBOq FlURF QUUFAQJRFY Kq6ka QdjgkOA43P d97R4 +t671Xd+tW 9/3vr YC8yvDIDC8 r5x2e aH2b8CQQGe eTElf KHr65/12/X xaRXh JUXrKzT1Jl 4qOf/ ciYd2yT6TO M/NQv 03Kd1YiPA4 zc9NW mZV0/Ps75G kRfLF Hk0RHfTxJs Eoj8X fJ3CGzzMoZ z+1fe tO4dEHnxkU ChRQI aXOPdsat1z uL3+1 0nPt9NxVeG pJZWN Y96/hqbHqw +Gw6S lLV12wiyUX ZbxM0 394EMHUHTZ 6hCDy H4uAzvodUK Lc0Cd Sqg4sKcN5E K8rCv 3BjZqbHmam le12v JfxFKRgy0c 7uRl3 hGppTdrGl5 1/+qb Wr/RN9OzHL D0AkN F8YTL2gTk8 ARQp4 MbLPA5NLX5 5ojYe afADFeYQia fzJT4 aYtDLEwmgx I5ID7 /zUZE/JeZU xzo8E ETs9DyGWrc XS6eJ tXp9y78c0A Xja2P MWiPo1wF0Q LudVk /Nx9yL5A5j hyRlQ eigcAEJWpq boXUB mT/DCAwYDr N1f/3 NwWIoWbsRY R2shC 0OehkBOYNc 7/2xg MN1PRu9KnM 9tfcd j7Bf2WYFJw RL/YJ dzqnyrrXVp COPN/ VNnAav3g01 SOLOMON+6 AZ74rU5kNP EaCgk 5TT1zmfl6i p2ujn WOmIuPrlix Gh+uc M6hiVrNUQL QBl+u vv/bJdUaDH k4rIC wmNsHb64f1 h615u GZVTq2nNWq dr60G VPIC6KpEG1 giIFJ gcQJryr4H+ zGkJM SNl1W06MWP 5/X+F yV12Awjl0h 4YUGM dM5ZBA1mO5 UKECH sMETHcGgT6 yKVxP jLqBgz37U6 BRXCk l92Csv+yfO ymJoC KO+lbMiz8O 4vInz dqjPaEgQYV JlrDF Hsl4xO+0cM 90FqQ jrInUHKBqW TQpxt jZ7fgrQNrY SPzCJ jhjqXoLIHh 1rD97 lk/kdPRud0 hNS6z swdUBw62TI 7vNOg ygOhGWHUiL vOa/N G75i0UfPtf SwkUl PLD7T149j0 UiCGX 8+5iSZcTlF gwbhF 6OQR72Mrae m+8L9 YBuzv089wD ZtPDU TCLDePtYJL 9B0s8 TcxP8eE9p+ 0/dlF gwIaPbGDCY TBgfr U33D+uoOtZ W298I cfCNNGIZgt I64QW 8QucTOd6zg Wn3Bh YSJIuG0OQ0 w+Xsa 5AKoAe7Oc6 xxCY6 VFc9ls2cHS 2KTL0 hPHek2r6+K zrvwn IglGyq8gd5 EvF1f IgEphQ/JV5 nKl1M r4+L5A5Wdm +UNKq Awno/OKnmN OJN4Y gylTQE7L2C mdh4j HJIVU2m48K JM40K iiuEF0WQI1 5OGzN 3cGl7vE8Je BywRk LdP1jlxOme 1Wb2k SDtiuoc+Bj mkTjl jybXu9BLr0 TgBID kT1vpdeOC7 p4pMM XW5kqdhMG8 dwNJM SRP4oO5Zbo GLRor 98BBRcgOsd klImv tQOtG8M6hF Q6ifx u/FFbMZ3Z3 XBIA1 0ezPEgrAja 8GuvG ZEu8Yu+Joy IzNsW QWbK1jd9Kh eJJr6 sli99S7Kwp ZiMEp juBDMHhedn 3U9BA +XegtlbA+Q PNN09 3aDCABLHyT dvhEC njB4axsK14 qBGO8 Q0RVXcPqW0 aqt9L SfD0LwkNUv 538a/ cOJyfE5yf2 28ZSH SRe6S5dmjE MHYvA t/CIDJzmg+ 8MIdY kx60O+g6Ya iGP6V fU1Fv0ZbBk UJFN1 TP5LrjW0NU Wqcj7 8ZTXDIQ95N 4xOVL 8nNZBdmcOG glspo lXE1zxemVC euDDN UjK5iTuGuS GaCCk r/7Aqj4Bl3 lJJ/A zSYoOB6+0G /DgA1 BsgpkCb8Pi 7fNAD WDDTc2Kjmd empGB Eb/uUREEE5 s4YL5 eQlyTCMLI5 8iTo7 +XbDEXP946 tfnEK TuE4+l+Wla l+UiC r+Lcob83Oo FXTZu IIgwyV/rosales E3zIE efXEY7yKoB YOu1A iqcsim05nH kPWCE 3tjZsFZXeR 60LO8 fB3feWZv+w qod7E iIwkV+d4TD E6MXO 9UNPkVP+5p vfU3R jy7j/5UkcF RCqSb 1Z4faROAMg uDczk 6DYJBh3JpF wNH9r O+vbk6eQ/h 8hAIb bLbMErQUSN VVxxf +ivlXfrUAx Ck2HB SpMrasznYN q02B5 nC+VEZLtDC nbj+o J/2rU5UWp1 8Cwer AxECstrxDJ cApFx i/yj7CW9JE l9I2E 6wBK46q65u XMHyy Ad/janaImW 8Zk3y yrrRo+IHt/ EMsrr iEo5lQEQeb U6/aL Nrw4sq92r4 FH5xR egJYgG4+h9 SXq/C j3b9mK3PQ3 XWa3d RE0KY62oss oVIkJ ncvQS9rtMR Yf3X/ tzciGCchlc xGOFn i+DC3NzO8X IGPD1 AeP1ItrPNH 1NiSx Mjo20zywYN pGrt+ 4DgYZMtHJ/ tIzaJ liZQAD5kD6 UQHEY VuHxNK7IQN 65ENH crTJDK39s3 VICzc s6sWqbDcn6 JTWS4 r+tbZNtpFg HjVvo J3YfN0sv5q oRkZX 5auDH0AmnI yILuW IvwhFekduL pIq8C P+foWa6Bf0 4mjoM Io+j22MyBy SIo88 mRAI7QHDg+ epnXZ 2OvulAYmIF o0Ttu /8QAhpwdx9 qMzQ2 AS2ncp1RGR 5Aruq aCnFSgDoxy QnAEc KWxBaSt3ek vh3Ka RB1hd7I3Ao YJ6fk Vmw+EgmGXO yl/tq AdYy1v5pMg LUTZM jKjJw0q+K9 LV2e6 M6gheXZ6ND Fkc22 iTh6RZKCKN 8y9bt 67P8GIR/Gp kYnOA 313VD6pYiP I1+Cp awE472em06 3IgrG jehuYvGV0z 2jrdg YtI657rWUi Alamg hbye77wufY vxAit bCui9JZtAi D0Uh4 Im+3/mCMnM OcYey RWi61g21Dp V8AkY 5sf8sLFujV dWdUd xAVbpmNY4I IMSgk ElsGcs4DhB AiOaN FRGejyIsQm QWldf J3+tqtuxOX C+D9w 99Ynampa+r NnL97 cblq+7q8yI mYIiR EYLbnJCO+v HURZQ pe+ic3hiw7 L+VFb CSaKSfsN38 UM+qj h2XpGEh6Hk U71wu ao2aA8i0BX IdD2o uP1K5VKECr KLyqt BseVuFMs7b CXJhG AXVKbeOjwX JVpEX mjAKRh4+ei E1pzX 15RJLlnXKC qBapS U060mNj9+S ccizn kYqczxwkUB xFiBD uGgSkQTd3g +0dvb OxFtHhmTkl 97zQ0 kCtwMgSL8R Y2J3M UCv0jw9izc 5vk13 m9SBBcDXFe 8DAQ8 TGouai7by6 YRoZI bOYujNB71t FiL5H YcuPSFfXM5 z66/C 2OyS+JCLfO 56X09 CrLMPxatbm Oh6/O ZFxH7XCgP9 NzQkd MDz1hUOHAU 7i4GG xpJAf8BRyZ JH+PP Mt4TAu8OBc PI8mT z+Xr8pdtxp lyF9b hOFVrcHyjS ocwD0 Z9dPo5+iX0 iJa66 Zm2JO8ETKL hZZ4e eQtbzOnRBw U1Vh5 JZJVCjAUlR wI7tI QicaIaEmhB xRoSM RjRglR6XbH sFiMS OmwSe/3R5P kXo0d oErBjoEkOV Xup3I Yp0XtzgABh y2S3K T22piICLem kPFnl ZQtmPoWcbX G3mNQ NuBDDM8U6j iyHb0 zR+xld0oi3 2wJlj 8tFEprsnF1 AQkzD a3kEzDq6eG xC8gT E3IBOT1OiP 0+hYQ Gsfwt9jtL1 7yzl3 PkM1Ok8wjc tl6mX Zuz5jb6Slj Z1EEB 2QqnNqhL1a YYQqR J7u4RtaaMK oYgZf C6fMLDKIIz rPe6B 24AT4oNybk ZiOjx h4UBcz2pH7 eU4TS VgA2fJ5b2T m4POM wP0amj13rA ngcoU XdcBhc63Pu t/LGf Dn+Mh1OwOQ O+CJS y9UqT5m5TG lStyS 2zwIwQFY2O Ip/7X DBgrwXGq3R 9yksD GnX8pXzOjl uax6S c/p0sdRN/L FNUXa UjstoyUvxh 4uoDw 3l11Jij1jq GKyX/ hsRPX+2Nxv k3Wli w1K02aWP8I CtrHh 54zIIobe0/ aRftQ eTguiFKbvG eUy8K tKAstCLjsk vwR6Z aHEGYJKnwi ejhRG Ztg+TXkN/a xWC3R GLvYyQNqDL 107Ba APdR0lcTjZ wAJCH F/Sqk5TpSu Z1yMh M+oli9Hhn/ LXZ3d mZ8o8ljVSO brBOA yIAZlCvlD6 Tbk0j BypHItGJdK K+sK6 cb8M5dSmwl jVK8m PQyvFmIFow 23YJ5 tXf36Nb2l3 Q5goy vXQJ2UmM+c 4htff G797q2n6QG 5YA6+ IIeYN32xXJ wMY0c KLntgnemkD ZYMKg T9FlkUZLu0 FlrE9 Y99S1lVgr6 yVpuH bpro4TFcXe uy80j rXApuv+73M LrDyz ZKRM/98S7L agN8j ckqplTQmD8 1YHvO MBMwR/akHh 4AxMJ bkwHdhX4Y2 rhIye RjxAF28UG0 puOmx w2fyPHb5Qv FAXH/ Qm54JECPff q9AXb zuhsEFbceX iIk05 e33z3fIEiR bzQZ5 gzkuKzb/Y9 ra0NK VYn/HGXGl1 1lf/O WbxAbI5AFP Gf0EC G6gTvTYGnJ XFR4v kfaXbfDB7j DT5Xb K42CiOayZK wLKBr r/i5ROV4ZC fISUl xJtYJ2EG31 WhvSE aP97YYj67Y A/6/d obDVWk7jCB TL/Oz e+/oXJjugs erzcM BUKTDj3uyv 97Q/L y1YnTOu0f+ kQVTX IUTuE7PILY OuIJz Ig2smKSpn6 DGx6Z Wp8BEJ/joq PH+8M 8MwDQSqs2F RApMd L4KZy4d4nH FvmYj 4jLG6HHp3j 1PHku D35WSma+oz ppq5G K7NJ86OUN0 /SigJ UiYf2mSZmh vRP9c azlI+mUX3t 9kfX4 PJbOvzS+0r G1HUt 0DJTcpGptb dlHOT Si6CFiXBoU senior visual designer+l R8ujzK77h/ Hs3z+ CkAX3hzIKx fx4fP 8mbWlV/XuL eWj8H hkxmsE6HT9 v2dQ6 +WfX/lfvo2 ZtsU0 JTiiVeO/SX UJYyA VtO7qBH2in 9r7Is a+xTNzlnNF 37wH3 4O1u4eiUvl Gddar rH9uQT2tIc Q1+Jm hkA1DB2/h0 VO6Ee xCBRTv24F2 rhO97 a3fyGaGKKo LX3jt FjoBVTFjpj 7/M1a IiV+8R0Stp a2pbY U0lSc2dJQ+ WvOuw 5nlQOosTs9 r/e8A CPlpUlKBLE jE6p7 F2s34G5e/1 xB8P/ I3CRUsltdr gnJZe Q+vkjy8yMc bOJ1z M31zel/vCq u7VQ8 /bY+yO2/ce lVU2N A4kR7MKDHg ouNt5 XXzTB/UWkV d13Kh 6CEpUnJXos Y6dyG xrf/oWkbeH 5FHf/ Hon67OSpew B4Dp+ zorpe8ekEB ms0D/ JMlHuzvH6A eTtgQ 2U96YQqmR2 CALKb mgwiQLKZEt O8pvS /1cGpB4D5n A552o tOitrmt+sn v8Plv ZB0BolluDt dHJlY Z4JZN0sq7J qCjE1 QDXft8WkPs w8L0d zr9WrDMyjG y9Ucm Gbz1AxraFp Y3kvS YJ4zlYnJ7c gZmFs q5QuG9AsGJ EgMCB ORy7iV13hq GVudH NbMiAwIFIg MTYgM CBSIDMgMCB SXS9U gKTiP8VsX2 UvUmV ui5YrS5CdN DwvQ2 2rl0ZBwOFt ZTw8L 8QiKdR3pDE SR0Ig MTEgMCBSPj 4vUHJ vR4MspXQgX 1BERi WgPAO0iVNa SW1hZ 7TSLL2UnTX nZUMg C3mqBWzwER 0vRm9 prNr2G3xyB m8gMT geVDUXG7se bHYgM HoiXLCBL7s pMCAx QFOvAo5QZC 9iIDE 3TZGbOj4+L 1hPYm ekW1I6OY6w bTM1M hJ7JKW3XYI gUi90 GnN6FfVqZM IwIDA gUj4+Pj4vU GFyZW 50IDkgMCBS L01lZ NmnDd37VaO gMCA2 MTIgNzkyXT 4+CmV kET1nofm5B DAgb2 HfDgu0V3lg ZHNbM TUgMCBSXS9 UeXBl S6TzI1KeQ1 NvdW5 0IDEvUGFyZ W50ID opKWWOWu3Q ZW5kb 2JqCjIwIDA gb2Jq Lxt1G8uiw6 VwPDw gJo0XuiDji 3Bhcm GtB7fbB4Da L0lDQ 6Tvf3CaHYY yIDAg Ul0+Pi9TdW J0eXB aR0Olql7aD mlsdG YfQ5VjMBZg RGVjb 7WfT6T0qAS vWE9i rlKwnK5GHS RyaXh bMSAwIDAgM SAwID KbK5Ygcl2I eXBlI FHiIqWhe3I yY2Vz PDwvUHJvY1 NldFs xMGKGH7Nmy HQvSW 5sB0YGA7pm YWdlQ s0BxAGcUBx dL1hP PpqrR9C7XF 9pbTM 8NlA3JZA4U DAgUj 4+Bu3oLaFg eFswI DAgMTgyIDI 5XS9M YE8szVelVT k+PnN 3hiVkcBj1s NPPzD P5RSb4VZEW BwARc gLfCmVuZHN 0cmVh bQplbmRvYm oKMTY gMCBvYmoKP DwvRm iawVAbF5Nl YXRlR JHbm1DkG6p lbmd0 oEUlJMc1Va 5zdHJ kZD8LzBcTZ Vtv2z YUfu+vILAX G6gVU ndlT/GlrYf ayWyn xbYMgyIztg ZdXF2 Stb9+R5RIy o4tV1 aHNXAtUiTP Od+50 ub5VxWNFXI /1UG6 mbrSFh2E1V 3HtpE CRfKevqO2w MYx+v VNsZqtJUjD JrIMX REOxmoPB9K whbCC xSfZoKsPdB gjeLt 6EvswGjiKB idigl jnN66L9hrc /p9o9 csbhCarNwd ENEex wG9UMuZmvn BPUyr T6EJBI6Ppk ATPiO ADGpZCbHb+ jefFe UB09JB5bHM rEsrE 0TeGwe1zok 2SQKV UxOuIXox6Z OKCzG iUuQEffaBu kG356 G9ws2PLpmH x+3Q2 myxmN/P5W0 7w5m4 x/ubLx3ZzB c3ois Q2CjuVj0Nj 0DM4Y +tyTZoWFtJ kcUQD 2t2Igns2mJ Pecx+ sGm32FxjeG jyMb4 sKFkj9Q60U xSB1e 70L0DnnTU8 Wi3Fn TDyD0IpeFp pzk7R Sn6yeDL5dA zcp6B c3iMxDJRp/ 8SeiG qo+aFRaJ/I fb0dg NqAtBY0y46 2xxiw WxFvqW2kCZ C79Z/ ZMDVD2tXcS xh3C6 mm0NAUQYhx pm4U6 d5RAbxp+Ur GKT5s Q8OFBACmG2 ejDze E9oXpfdKHX U71YV sd4eGnQTzW TLeiX uHJcMZ8wer 4pFmT xdxTy7Qnse GZj8u fW9L9Jlnq8 P8qkV B2uyF0d/GUANAKITO eFq1U XxfKYCJaaS Lcx51 rzeGDyXjVp FSTKJ G5clrXhi7N XVPRT KCDJf84lFK Zx14e UllmeDFkZz 9Ka+M kvg5AnMjfe 27m17 v73EXHqEUV YPA6j vzjc93knDh k6e6S GTRyShL3Yc OED6p ejBPV0obDz rSW+Q 3DgWdIg4b1 pY9M3 HHUuC5pd/A 4F+ck YtgFZ1ydAS VCZRQ 5Hu50dTWo2 VbUS5 WQUM/fFTCK YL8Lq AhGLIF1m7n bL5mm pvpD2Khe7A qCx3T nco+uz7vi6 aFn68 HDO2ItyGsu YKVKo zci3ZxWdYr rQqMy frWQ/8QOKF ht27H 4Dsz+SuRuH 6utfI Ouhmsh6BzK aACU4 Ks45vnT/jX 1Pd8V Mo/wLH0M20 VkPb4 rNlRKUMjv8 z3QFQ P8eQGIuL5S QmSAf oEiURUHBXx UfgV8 dfl/gLZw9A v6jCK hASV6Zf/hy 4D1GI 6uwwmYNoe0 gbCtL 2hZMPidPBq aVTEE f2ZdIRa6nE vwHNQ aKBdlC7u8P J+GTh WAQvO4wucc MezIc R22cJ+ZI8x +N6xo UOJZsArCQ5 pwCJ+ 7jNPX+j8Ks NBAcG AgTbwSSzlk lU0d4 9OdIsnGj2A jk0uL 9aN5yIDfjL ryZtZ UPbEfCYq10 V5Ksz kQCa5NeOOy 3qfpa DZgFYm4kYQ 7uVpN e4orlTqYOp 281kQ geD9hK9ET0 cVkeQ /tLIGcKTS+ XJXSc yGjj4mX9Mg DDVN/ LjPUQ+9TH9 mQznm h8dJFCoLCW hwMaC 180lIs2e70 MRM5c l6Mvq+/wd2 pL9zI Prl7ZSdv9x Ntv3f HzDOO/3YlN EfNxa qZyxmgbNLN Z6bv5 4ad1EJ0F6h Q4lQV nsALPNZiaC 2h1qt QZMUMy4GDB kPvoI R+6Iuekmml USCzW +Q1n2JT0hj BDcne 6REA7SBQMA C91CM lVmNxesfC5 kGZL2 q6NQOTWyZk ZBAHo jR/fhezT0g OX3wZ TCvz3NfUys Y9Wdt FK4TzLjXYb TmZ+p sIAobnSkbq 9S47k u5r2pBEoQ5 WZTSj NsYx7AnDj7 qpyEe +eILKulhcW VdG01 A6VoiK3YM0 urxdc 4OcleFKcXK l1ANr Al6rIYTq4C 6j/wi NcfkLJuqyP zKdCY kIQJXN5OEN t7IXk Z6YskKdANg 5UxXS 13Y1A6LwQb 9ixsC fb3V1BE+52 Olt3W xppIh62KZz WFmhW jnRX5R0642 N6kce rekvErwXy2 /FupD R/9qkIYbNl rbRER SCpulgiBgt dZTUL lPoobPQwI8 20kv8 Z6y8FYu/ym KJXc3 XZIw9XEzTO ZbL0z cxnPVZ9lWx ppKdr tiTr78cofh 5uCcR XKbl+f/ktf 48TV0 r77U0uVXU6 bhd/j rUCk+p6IoR N/Qjp rNPJ1aL2kv PLGAv oSsWsC6/ap 0jAKK whzipBQSAl E1W3p /KI9c0ZsP2 9QI4t YIAEwWbTlv 5WwYX 3cGQDhxMWq eDBfX iMASkGLjpd Ruiln NhRPtc+oUI Zn4gr AgN5hTCYK0 Fz0q1 j1Jy3Y80Pb PUhh6 0T9tJONPQQ 1urC+ J0NVIYS6XE /gyGl b9Kjc9+uHP ldZAX xI/iCmd7o5 TCb4x mrOZGZ9uSL jU7Ta ST+t/y5AKj 1A3rQ j4ag9e9jOy 1N9hH hUEQlAnoZZ Dv5LJ 6DWPwsaq60 1kuLw r5uKeDKwkk 61Ygq dnEr33yXA2 fG4Sc BNTLkjgqUm GwVxT LlG6SeOGfz ENTu+ +Z2lg6u5R/ Rk6we xY10Xs78Et VM6/L sgn91n3pKv ONumn +P0xYXL5GX f043W nmYXXajpMz HR+/r kof8i8GfwE vJ/8C 6SG+cgplbm RzdHJ jPR7ACZ8kc 2JqCj U3KMOun6Yq Cjw8L 05hbWUvSGV PYi9T mMJ9jEOgJ1 R5cGU yT5Z5iHRkQ m9udC 8XCNFjDy6f dC9IZ Jz9NPBgL1T tT2Js uCD4XV6Blf NvZGl bCi2HbW7Fw nNpRW 9cr0Efenw+ Pgplb mRvYmoKMTc gMCBv YmoKPDwvTm FtZS9 LOVGfU9Y9Q nR5cG UvVHlwZTEv VHlwZ B2Ir618V2R hc2VG y731B2yfgB ZldGl zAO6Ag2nrI 0VuY2 1pzV2xU7gf bkFuc 2lFbmNvZGl uZz4+ WyNeHR8vgd oxOCA hPE8bvcn8N C9OYW 0zQ2yknFNg U3Vid HanKU7AcLG lMS9U fTNsV6Peic QvQmF zZUZvbnQvS GVsdm R9nCHyM5Wg Y29ka N0dI0gcjeH uc2lF bmNvZGluZz 4+CmV aEC4mtwn1V DAgb2 MiHfb2Cv7L ZW5kb 2JqCjUgMCB vYmoK PDwvRGVzdH MgMjE jGHBKOh9XD W5kb2 JqCjIyIDAg b2JqC mx1J9GyOET gMCBS J5nHZdSsPp A1OTg gbnVsbF0+P gplbm RvYmoKMjMg MCBvY moKPDwvRFs xNSAw IFIvWFlaID M2IDU 5NSBudWxsX T4+Cm GaOI2rpmdr NCAwI F6wubw8EQ6 EWzE1 LHOfOn5ZJP ogMzY pTxX8IB37s GxdPj 9WJW0rz8Bz CjIxI CDzr1RnIby 8L05h bWVzWyhfYT NlNGU 1MTctYWJkN C00ZT BmLWJiZGQt NDdhN DRhZDhlMWF hKSAy MiAwIFIoXz E0OTN lWkM2BJUpG GUtND DbXS4lVuJe LTNkO WZmNjgwZjF lYykg MjMgMCBSKE 1LTUc nGHx0v4shj WFuIE GtfvI6pIRp IDI0I DAgUl0+Pgp lbmRv YmoKMTAgMC BvYmo KPDwvRGVzd ChNS0 1HLVBoeXNp Y2lhb eBIi86iyIx 0KS9Q YXJlbnQgNi AwIFI kIKr4mNV2Z mVmZj AwNTAwMDY4 MDA3O TAwNzMwMDY 5MDA2 MzAwNjkwMD YxMDA 2ZTAwMjAwM DQzMD E3ByOqYkTf MDczM TD0LKIhHxD wMDc0 Pj4+CmVuZG 9iago rRLEdPS9br go8PC 2Cr4XPYTFh KEQ6M iZyQNT8BVB xOTM5 NTAtMDQnMD AnKS9 DcmVhdGlvb kRhdG UoRDoyMDIw MDQxM hN5Sqb8JOz tNCcw WKlmU2Lyu9 R1Y2V yKEliZXggU ERGIE MtGVF3b5Tc NC45L jAuMTUvODQ zOCBb McVJGB6QT7 I7IG1 vZGlmaWVkI HVzaW 3cJRbMCCx1 IDIuM U29XIB0FVQ UM1hU KT4+CmVuZG 9iagp 4cmVmCjAgM jYKMD AwMDAwMDAw MCA2N TUzNSBmIAo wMDAw RZDfLUV2QC AwMDA oTP8qSiSqC DAwMD AxMDMgMDAw MDAgb iAKMDAwMDA wMDE3 OSAwMDAw BuIAo wMDAwMDAwM zE0ID IsSPKhPR9j CjAwM WSoTKC1GSU gMDAw MDAgbiAKMD AwMDA hINL1UOKbA DAwMC BuIAowMDAw MDAwN GS0QRAuWKY wIG4g CjAwMDAwMT A2ODI gMDAwMDAgb iAKMD AwMDAwODA3 MiAwM DAwBuIAo wMDAw PROhIAP7XR AwMDA mOU5tXtVmZ DAwMD N2UDUwLSVi MDAgb iAKMDAwMDA wMDU3 OCAwMDAwMC BuIAo wMDAwMDAzM jQ3ID OiMNGiRY2u CjAwM AIvLMC2ToA gMDAw MDAgbiAKMD AwMDA wNzczOCAwM DAw BuIAowMDAw MDA4N CS9PKRjODG wIG4g CjAwMDAwMT A0Nzk gMDAwMDAgb iAKMD AwMDAxMDU4 MyAwM DAwMCBuIAo wMDAw MDEwMzcyID AwMDA oVL0bPwGdO DAwMD gxMzcgMDAw MDAgb iAKMDAwMDA xMDg3 NiAwMDAwMC BuIAo wMDAwMDEwN zM1ID IlMIZeME9e CjAwM ALqKIK2HMM gMDAw MDAgbiAKMD AwMDA xMDgyOSAwM DAw BuIAowMDAw MDExM TcxIDAwMDA wIG4g CnRyYWlsZX IKPDw lYD0ludRfF SAwIF IvSUQgWzxh ZmYzZ LtkMXV4MKb xNjll QoRoXAC1FW NjZjI 2OCbbBf61R jEyMz hiYTRlZTE2 NzljO WEwZmUwZmE 1Yzk3 ZTcwMWE+XS 9Sb29 0IDQgMCBSL 1Npem UgMjY+Pgpz dGFyd HhyZWYKMTE zNTEK IAUSI4FO ID Date Data Source [id number] 08/13/2019 07:32:00 AM EDT [facility] Name Value Range Interpretation Code Description Data Supporting Source(s) Document(s ) [facility] [place] c7PD3ZmPD3 [facility] 0B4rQHcJ4H 5cGUv Center Yu6lhV6NFQ NlRm9 ntW6HSMe6H XRpY2 HcCU4sg9Qw bmcvV 4srVR7akRP uY29k rW6gYa9ZYS 5kb2J qCjIgMCBvY moKPD wvRmlsdGVy L0ZsY CZpFIFkl9F lL0xl vut5aNHoRT 4+c3R yZWFtCnicK +QCAA VqNBxDFJ4z c3RyZ WFtCmVuZG9 iagoz KJEdx5HkSj w8L0Z oxEBijd5Av GF0ZU MyE44qOE1G ZW5nd GggNjk+PnN 0cmVh sZw7lKKJ4A rk0o/ INFAwNFAIS eNyCu EyVDAAQkMF I1MLP XNTBQtDPQs jhZBc Wa8LzUFScJ h+Rad MXadDs6wVR yAXAL E1Pf2DGW1g c3RyZ WFtCmVuZG9 iago0 ORXop3EsSd w8L0Z xfJGurb3So GF0ZU XtU22mEC2Q ZW5nd GggMTA+PnN 0cmVh yEo5nHooGq AA7gB 6WgFfXSC0x mVhbQ plbmRvYmoK NSAwI O8xusx2GF8 GaWx0 ZXIvRmxhdG VEZWN vZGUvTGVuZ 3RoID vbSi0jxJUt YW0Ke PhFIYKi7DA PyDRU MDRQCEnjcg rhMlQ wAEJDBSNTC z1zUw BEFt3NY8AF XC6Ng QY8UFEchgp 0BSPN cPqj9xMvKZ 4AtIM G0LdvdtPxa HJlYW 7PAM2lu7Fi CjYgM CBvYmoKPDw vUGFn NW0wVDXgJR NlTm9 vQL4UAH2cq yA3ID FdVw5WlYKb L0Nhd MGgh8xwY5I 0bGlu ZXMgOCAwIF IvUGF nZXMgOSAwI FIvVm yii8ZdOTGt ZmVyZ N6sZQCkLXD gMCBS Rz0IMR4mw0 JqCjk gMCBvYmoKP DwvS2 ers4xtJQZd IFJdL 5V2vQHfGEU nZXMv X228lbZlQr 9JVFh EIBQpWO17J T4+Cm YwFE7xxvk8 IDAgb 8VsTom0K8E vdW50 IDEvRmlyc3 QgMTI kZZUOL4ljs 3QgMT ToWRQSJh0D ZW5kb 2JqCjEzIDA gb2Jq ClsvSUNDQm FzZWQ gMTQgMCBSX Qplbm RvYmoKMTQg MCBvY moKPDwvRml sdGVy O9JkZGJjEZ Vjb2R rS6xdehq8n CAyNT i4L91tJg1+ c3RyZ WFtCnicnZZ 3VFPZ LnsWpDl1GN IQipT Qz3mIKqfYv UiRLi oxCRBKwJAA IjZEV HBEUZGmCDI o4ICj V2VhCzwMOP Gx6wQ ZRNRxcBQbl klkrR nfvHnvzZvf H/d+a 5+6b04n890 WugCQ /IMFwkxYCY AMoVg Q3qxJuZ8KA 2AHAQ zwAANsAOBw s7NCF vhGApkCfNi MbJkT +Rf5rm6h+f sq0z+ MwQD/n5S5W SIxAF CYjOfy+Nlc GRfJO V1WuKR1J6t YtjRN zjBKziJZgj JWk3P jHZb67epgN znzMo Q4RlhhmcJn 8OTcJ +ONORK+jJF gGRfn QHr5Ac6wR0 N0SYZ Axm/ksRl8T jYAKJ XkKnFiP8Hn LWOSK ERVSlD3BID IyV/w 3w8AsX2Ygh /Fzsx rDyNpc8pOO lxTho 3JH7yiq92N 54vFz OYQD18e3fG YmRlZ HOFyAGbP/F kUeW0 MbpP01Ms3N DBtLW 2+KNR/Xfyb kvd2l l6Ef+4ZRB/ 4w/ZX fpkNALCmZb XZ+od taRUAXesBU Lv9h8 4xEmZNqn95 Dn1xH jy4HgLB6li nK6vc 2GbETY6qGI /o7/q oLh7AU6cZM r7d7+ VhePOTOJJ0 MUNeN 25meqZExMj O4nD5 DOafh/gfB/ 51HhY R/CS+iC+UR UTLpk jnPAl9G2xZ iAWZQ Jyoti+J+a+A/ D/qTZ sCcQ7nqZ0N ZYAqU hGkB+HgAoK hEgCX nmM4EggOaF RwP5z YvRmZid+8+ C/n1X uEz+yBYkf4 5jR0Q yuBJRzuya/ FoCNC BQCWHC0gAy 6AMTw RA4qNV6PT/ gAwJB QDcIoDDt1T IUkAF EIBcUgLWgG JSCrW AtnWK0iXI3 gzZwG HSBY+A0OAc ugctg BNwBUjAOno Ap8Ar MQBCEhcgQF VKHdC BDyByyhViQ G+QDB UMRUByUCCV DQkgC FUDroFKoHK qG6qF d8KceXZWkl gANQ7 egUWgS+hV6 ByMwC abBWrARbAW zYE84 VS7YL6KG7O I4Hy6 Im4ZCqCG1T O6ET8 GT7LWUHu+B pxGAE KA0daeyLBv CRkKR eCQJESGrkB KkAml L3hRkqQ+5i kiRp8 hbFAZFRTFQ TJQLy e2BzaZzlkT WoTaj paBUDS4eMc RV1Ch qCvURTUZro s3Rzu uGqKe6ML4G LkZXo ZiWLgly3JW 0OPoV QdUmG3kqyk h/TBw mFbMCsxmzG 9OOOY UZxoxhprFY rDrWH OuKDcVysGJ sMbYK vxD7NfmGD0 59gyP zlMZ3PU4mL E6IK8 QV2QylZ2WM cBO4G nhQ9oLmkV/ F8/DL 3IF4TuvYaz g/jp8 aPWGOGl6MJ EIqYS 6ctjZYKTd8 S3hBJ VV0rM2NeSX AuIZY VYaFUI8eLk 4lUUh mJDYpgSQhb SHtJ5 8d6IP8VTEU RmQPc vqCZQ3Atre fId8n r2JhKpevQU jwFFY x9Vg3SbpNw KaIVz CS9GLjtPgj WKF4R XCF1izOEwf Iia3E ZCofJAK9AN mG0rQ kXpiQMDY6A 3mzco vyBeVHFCzF iOJD4 VGKKPsoZyh jVISq I3LTmkU27B bqWeo 4DUMzpgXQU mmltG 8nu6QoGTzJ nUq0S q1SuisuWGk doRvR A+qr2VV9Nf p1+jt JVXVUTf7rH tU21S ytz2WqvJig 8dVK1 NrVRtTeqTP UfdTT 3Nphm4yt90 BpmGm Ea+Vz3XG3q /F0Dm 3FztxovIX6 h+fc1 qY8dKYwXCs o7tMc 0PzX7eab02 rSqtI 6o/CIf26pq Z2qvU Q3fKxqBhLR TUegs 2NljC5sryt Dk5HO nML9ZrK1WE X9dSW 50mcLafT0p npReo N51Kj51Is6 LP0k/ Q90niaYIcr GIQYF Xv5Xme1nlr zDFMN kdt0Kv11Zd WKMNh d0PY4cVbNF MM43b jW+q7K4cIi ZZtJg xf3LD3riMR PdbXr SKJqzT0cdd zEbMo mWHsrU5puW hy3QF u2UZydTpxt MEtOT ldIvKR3x9n 2DLQs tuyyfWRlYx Vtts+ q3+svpm96o 3Wh9x 7UiK1tCyGQ j86ut iY7Fpmy00t zyXN+ 5q+k1r46sD 27Ht9 stl3Kuwm5p v8G+1 /8Yf0MWqHQ NYdLR wDHRsdbxBo vGCmN vLt86Tek2U a12Ou w42qsVEai0 2PkXF 0BPazoUt0F 5xvP4 8xrnjbnquX Jc612 lkbf7TBa4r lJ3XX uDx9J4Rl40 D55Hk 7rSg8nylgn Bz2de 5b9jxo7g38 xn9kr 2KW/E28+7x HvQh+ AC1YYop92C zzfZt 9V3ys/eb4X fKX+0 f5D/Nv8bAV oB3ID dsPoWn1PGm X1BpK VTAcTIH5WN gkXBP DJfYOMP3fX 78w3n C+d8lUKNzV Dtoff FvZHBfJ0bw gkPC6 7UcwutQ2ZD 0b+Au mDJgpYFryK 9Issi 70SZREmieq MVoxO gd8Cuj2iCu MdIY6 8oO5AozgJZ E8R1x 2Pjo+Ob4qc X+izc xJU4wA6pJS H6IuN FeYsuLNZYn L74+B LFJZwlRxLR iTGJL YnvOaGcBs7 00oCl tUunuGzuLu 4Tngd vB2+S78ov5 08kuS eVOi0Uuk5r njyZ4 h7EllAZhSI UC56n +gwHcd0WM3 3bn/Y dRXp0VCNMk ZhxVE cXpba2ZbAk 8zKHs 5rnpdUxr8a X7Vw2 WGcMJDON4R uyu8U 02c/UgMREs l4ymu OST7BsTuc1 90iec n6ml5Y30lQ Nyyfy ffO/XoFawV 3RW6B bsLZgdKXny vpV0K xve4mM611l Wj2+x m/NgbWEtWl rfyi0 LiwvfLkuZl 1PkVb ZjhIn0C5xL 4sVik IIXhe8gBpx iNoo2 Ec1xf9hcw8 fS3gl T0alBqvK42 /mbr7 2ap8XfK529 pK0Zb DMoWzPVsxW 4dbr2 0x3HKsSKp4 vH9se wi7tC1XLhC 6XO5f djOGsM0M2c 7BLsk taGVzZXWVQ tbXqf SFA0PhWF62 7rWbt ojtZv6g3c+ zx2NN Dw0ADMcfjg 2DvzX q/+k5Ep5rJ fZh9O dalCxS44b/ N+rq5 SaOptOnDfu F+6YG QQ70Mik7JX ZotZa 5du7B83jZW wcvfe H/S5nVxx0+ nt5ce Aockhx5/m/ jt9cN Xv3iMqN22f Wf4XW 0HtaOkE+pc 3jnVl dFq0Z2gLy9 aeLS3 u8Pj40eA5/ cf0z1 Nm1eshEkKb omiE5 9O5p+cPpV1 6unp5 ONhjKu816y JPXOt H8im7OaV3g PnfM+ b8kczS3oa2 fyxC8 0Keo1jJey6 5HCpc 8B+oOMH+x8 6Bh0G O8yqf0njD7 3uGZ4 3fOKK+5XTV 72vnr vQqI3GxAiM 4etR1 2/eSLghvcm 7+ehW +e4kd8Jqi2 xZcxd 9t+Se0r2K+ 5r3G3 40/tRy1sM8 Puo9O gJlaFE5U8s xJz9l //R+vOgh+W HFhM5 Q5bAdU0vax ScvP1 16pZoM0xKI p8U/K /9c+8zk2Xe /ePwy CPJ1Op1d1T zTr5t fqL/Y/9LuZ e902P Z5OigpEj4L vFF/c +At623/u5h 3EzO5 77HvKz+Yfu j5GPT s7lfXZ05+A /eE8/ zOGR7ft9Dk ZWFtC bQkMN2niid xNSAw LO4gosv0QH 9Db2x vclNwYWNlL 0Rldm ljZUdyYXkv U3Vid XflIE9AhKI nZS9I ZWlnaHQgMj kvRml quZIiA7OcL XRlRG Eir6AxB1Q3 cGUvW F1hqnOekO0 XaWR0 aCAxODIvQm l0c1B lckNvbXBvb mVudC Z9D9dxvth8 aCAyO D4+w2RuPGL tCnic 7cExAQAAAM Kg/ql nDB+gAAAAA AAeBv uwzw9MTW3l c3RyZ WFtCmVuZG9 iagox AjGyJP5rgq o8PC9 Cn4alzxHdB WNlWy 9VV5SEXHLb ZCAxN JIoPORaC7X 1YnR5 eMTcBV4aX2 UvSGV eE4p8SID1J 0ZpbH Rxqu1MuPX3 ZURlY 39mTY5OkJW lL1hP MzruG6JfLT Vjb2R cRZYalWF7N C9Db2 j1aO4bSRM9 Mi9Db 4zogoDrMa6 QcmVk dEA0o6BuSQ UvQml 0x2AomgFjk XBvbm EicZV5Wr6w V2lkd LpyOHhmP6C NYXNr PZU9RCHuIy 9MZW5 dzObtRTZ5Q S9Jbn RlcnBvbGF0 ZSB0c eYsU2FtxTK QZXJD h36la37mmv QgOD4 +m8BoNSRfS nja7Z cYCTXN8rbr 4iRzJ aH0HrifueV lc8El jhPjxEhCjI ormtE 3ShN9OJ7OD gIioE XFyUF6whlT gDaC7 IuAArIZwyY BZVER UFFBQECURW CqupG q7GCS3P3+x 3fe0e Zork5Y5qbX vf976 px2n7hPTV/ K+cdn tYv9LTW3EE XkxJX yh6+uf9dv1 8WkV4 PdH5ZtM2n2 +Kjn/ 2oE0vwK2P0 DPzUL ++mWkG8mU8 M3PTV qgEoIs7U+R pEXyx PKcHx8yYaz RKI/F 34CMFnT5TR s/tX3 hPgSYYX11w QoUUC QH7RJoR5HH Li9/t dIUKeCJhMU 6SWVj ZXuk7gtv2f PhsOk waSSfs10bV WW8TN N/lHRP9Q33 eoQg8 h+2uQDRf4j C3NAn L25qUnj45x CvKwr 8aY4qzv1ff pXtdr eCFetZL6TW O7kZd 1BwdD9nlmw df/qm 1q/2COEqVQ w9AJD T9Bkj+r2Xe QEUKe AngDmeQGRO eaI2H mnwAxXmEIm n8yU+ GmLQyxMJoM RICHEY+ /81GRPyXmV Mc6PB Qw1pWbPmex 10uni q4NkGas3+z l42tj 0CLCnOHQ+R C7nVZ P03+mg+zPc YckZU HooHABCVqa m6F1A Zk/wwgMGA6 zdX/9 shMpZUt8SS EdrIQ tDnoZATmDX O/9sY PeUCJFqN9k vbX3H XdzcfBQCAL kS/2C Yg8t2d755o Qjjzf 6TFg01xU+d Dg2Pu mJkAbmt0b9 BGgoJ WIZIXF05ED Kdro5 0soyAo49Mt Rofrn DvMIzbVCmC UAZfr r7/2yXVGgx 5OKyA qLCJhGtuH/ Ieteb kiRSMeMGSJ 3a+tB gQxzPGHByN oIiBS M1YHP4b8tD sxpCT CVst0+9SUR Of1/h ci/g0hSOLL +GFBj ISdxzEdmz9 lChAh 8LFYv3NbL+ silcT 1sr2ZoxLI+ AUVwp JfdgrL/snz spiaA uczm8e2a0L eLyJ8 3nuv1eXNQO SZawx O8RrTFwzET PdBak N1nD3Gnbsj k0Kcb bgvKLamWHx Ej8wi J4E4r2XiA8 timmy/e 2MD1UW0cnb ITUus 2oYREpuPVi +7zTo HvKfBey6Ai 7zmvz WfNL+BJRc8 UsJFJ Rwjdg+99pt lIghl /MiRmnXX5G YMG4R m2VhRMFzbd 5vvC/ Faw6k5hqor mbTw1 Mxae5e4JPF /QdLP ZWax5slgiC tP3ZR URVTb2wquy EwYH6 1N9w/rqDrW VtvfC HHwjTRiGYL SOuEF bXwsFb6VDo Fp9wY I7WLHldZVA cPl7G jXO3EPqa63 McQmO ksaRQ6mJZF diky9 LjFHK+IvPi s678J zoMmHa+2qe RLxdX yIBKYUPyVe ZypdT K+PlugtVa4 /lDSq eZP5Ntni6r TiTeG NpZhNmX5VD ZnYeI qUZMv09Qfq CTONC c7gBBPLEc+ OThsz fIgrPaVNyn QcsEZ GYFeKcoBc6 9Vm9p Ge2GneOGrN 5pE45 bWpy5+mR8u E4ASA 1rnG36F9Ax aeKTD CCdG6QQEWV HcDST DBFdYwOjp6 Ri0aK /fAQUXIDrH ZJSJr 2HzEFk5n8X kOon8 cnor2jQ/Re 1wSAN dHszxIKwI2 vBrrx mRLvGLvjpm iMzbF gyqjPHLeBL XiSa+ jTvafzpj4N WYjBK Q6bCuF8TuK 91PQQ Hd1wUZFyMu DzTdP l4xrkYKc7l 3b4RA o4JhbymHgo 6gRjv UjEW8zJHbq 2qrfS vV6ZB4HLhH Od/Gv 8Wb6tFpb8m tvGUh 1VX+WOZrcV jB2Lw JepoVpd8cM vDCHW JMetDvoOmG ohj+l uC4uRiLKVk lCRTd RMpC9Cj/FA 1qnI+ +EAyiUx+Nl +MTlS /JzWQXZnDh oJbKa Orep49LtSP nrgwz SS4VIITRfT Rmggp K/3umO4KB/ JSSfw S4cOPeiblV vw4AN Ign8MWE+Es +3zQA 1zDmcOVHpK HpqRg RG/7lERBBO bOGC+ XkJckwjCyO fIk6O /hckTzzPeN rX5xC a7hMUdnmvV pflIg q/iabqOfRq hV02b iZXJJro68l BN8yB VH5eafMfUY GDrtQ GrPYz1mVwU pD1gh O4U4hGDO7t etCzv DMhQ8xrV/s KqHex IiMJFfneEw xOjFz rSPZ7XK/ua b31N0 Y8u4/+VJHB UQqkm /TzQ1UOkE1 rg3M5 Z05RMPdEfn cDR/a nes17PuoO8 fIQCG 9e0tFW3PZh VVccX /oa9K179DR QpNhw IcNK9fF22C atNge PpgbTYB7Xa p24/q Cf+0F5a0jk fAsHq iEKZwPs3Sz XAKRc Gy3HOEC+gz pfSNh N7xw++ne9Z lzB8s xPx27b7pVu vGZN8 wm52bPfG4k xDLK6 2wJ+3TRwJM lOv2i y6Z+6YPd4+ BR+cU XoCWIBuPof Ul6vw xsSF9MFiK+ 11mt3 K5uSjtE2JG 6FSJC KFNBLe24QV mH91/ 1s2NhsbASF MRjhZ 4vlxORbUdE iBjw9 TxS6a72aQe NTYks HMcwO2EjKq KRq7f eS5OHNKAbg 7SM2i vBiSJW63iP FEBxG SMMhG8nzRX uuRDR 2cYSx8JjbH VSAs3 K/QX0XiOA+ SU1ku K/vF9AawPZ B41b6 DOiKT/ZHvJ KEZGV 7SdC8tFOFB ciC7l bX7BTSoIcx 6SKvA j/s51n+y7u OJo6D QJVoncW1to EiKPP JTRSdFEQKv nqZ12 chm5vOAPdV aNE7b v+UzVEf3Vi qjM0N ddaeJc6QTT eQK7q wvqxLuD3Qp kJwBH UEJV8cqb86 L4dym iwtppOReFm mCen5 FZsPhIJhlz spf7a fSyz5pJgc9 S1E2T Jicjnu8/iv S1dnu jtXBGl8idp BZHNt olYNiFTzyA PMvW7 dvD+ERhPxq ZGJzg ByNHdrcY08 iNfgq Zphtt/HMNf NyIKx b6UGIvUd+2 to63Y FJTfNdoTjq QJWpo DLardj3LXb b8QIr dvt2uvm6et g9FIe CJvt/5gjJz DnGHs jRWuNsdtgH lfAJG JEWOBpVN5z 3VnVH s7WW8ERNjz CDEoJ Z8tX6DkP4b wIjmj GXNoc2oBPL kFpXX yd/rarbsTl wvg/c MbMR7urXtx zZy/e 3Q3rzk2fDe JmCIk VGS54kNltm x1EWU KXvqqtLKqe y/lRW zZPgHE5cbu 1DPqo 2uTbQSouGK 1O9cL aks4fuiQZG SHQ9q IiOSPFhETq yi8qr H8qoSsCg/Y wlyYR eK2Un5pr0I yVaRF 5owCkYePno hNac1 1eGPU6C8le qgWqU jtfNYxYuPk nHIs5 8NSlL3kKVZ cRYgQ 5TXPkrUD4V ftHb2 usQgD7Ws3U fe80N HB7RG9giw3 WNidz JV6c4eXDvG ub5Nd 3NgjEpBwBZ vAwEP DVK5q4/Xb9 2EaGS QHIVL3VXG7 hYi+R 3QQm0oE1xD c+uvw lrptduJc7x uel9P CxxiN5LbA5 joevz hiYyNzUalN jc0JH ZTS83tsfQp u4uBh q7WS5uJE4X yR/jz xWuUDnNEgs TyPJk 8/i2/W3ror ZchfW 5GjOg8L3p2 qHMA9 SmSE2Jivl4 IiWuu k7/TiugiiU oWWeH uoCE5mf2Ko FNVYe SWSVQowFJU cCO7S EInGiGhJoQ cUaEj BLDYLlPVGj rBYjE oyrZln64iP 5F6NH cPSsY4MTVm V7qdy Rx94U83vXI stkty qLhF6SMWD9 JDxZ5 EHHAe2HtJ6 xt5jU CnhgyWeWNZ osh29 A0ps4Sr9P+ dsCZY +ZFUaXqXC/ AEJMw 7fo7Vc49JH cQvIE iWPCxuQf6v tPoWE BkD8llXWqY u8s5d j6JQXkj39v 7Zepl 07n/XLPU32 mdRBA dS6Ut6IDMI 2GEKk U+Wsz66BmM 6GIGX 1/S3dN5I6a qz3ug ddFk/GlbIa mYjo8 b+fjBjeC9v nlOE0 jcTdbDdItB puDzj TRdkA3c99k p4HKF Md6hOmrAQW Lfyxn w5/a8Fz9X4 zvgiU yzNn0mI0IY 5Urck trcTpzDxvU CKf+1 8yQaq4BH/R /cpLA gYopHheM2M bmsek mV6cJLSAsr xTVF2 wT7QlLaR9G eLqA8 BemKBd7Oyq Bisl/ 4bET1/tjcb 5N1pY qtTfeKkDt0 Arax4 e7myV1ZlsU 2kX7U Cm7YybWg0n nlMvC fZwCBUs94Z L8Eem AtnXfJPc3Z no4UR mrUNz15Td3 sVgt0 Rd95QzKzuy 9dOwW atQ1CHVfnU sACQh yp8OqBFyWE GdcjI HCpWaUP4fn y12d3 YJN3di4bAV G6wTg AjGPPLg1P+ k25NI wcqRyLRiXS ivrCu eyiKSN1Js9 Y1SvJ o9YlsPlLwB Nt2Ce xIyzVLqa50 kOYKM qUjDNypTvn OIbX3 hvH8xIdmBO +WAOv lkXAleuqFF 8DGNH Lj59WR3jvO 2WDCo SQClVt36ve BZaxP Wd/FubSMc9 clabh 3KJTfqDH1Y bsvNI 61wKbr/u9z C6w8s 2SkTP/fEuy 2oDfI 7WZoGM1Dj/ NWB7z nRLGCs5wS9 eAMTC wi2gpfLoMX K4SMn sR18A6djW+ abjps ExCY2QL/TK RQFx/ 2L/dwBUjHL 6vQF2 94rvKQR6Mq 4iJNO FLCU63VBj9 G80Ge LH8Ucv3/2P a2tDS lWJ/xxlxpd dZX/z hZLSFiJX5s hn9BA md1I2pvN2e VxUeL 3fS6w90DrO A0+V2 zkkp892Bbj sCyga 6/8b0CnZDB 3yElJ es4HiHfhUK lob0h HR+9U0YN/B wP+v3 YGwVR3+DANIELLA Uy/zs 2ji5NkK8aM Hq83D S7zPLjMrGC fe0Py 4uwsFUHeMP pEFU1 fiLr1coPTh jriCc xMtLmigbqN Axsem CycREOt16A jx/vD UXse2OcJes kQKTH N9vX1n6bfD Bb5mI /MQmOAGc+m tTx5L dB3Wt3xmsA 6aauR ggaYTj11p/ P0ooC Cxu0Q5ZQ53 70T/X Zw6QAtvM81 fZH1+ WeLsr13gdO xtR1L rZqE3PJiiZ 3ZRzk 915nMCtUk6 3CKPp U0YiOsnnko x7N8/ oXEqQ0fGCR n8eHz /Is5sIt45n 3lo/B 8w4qZasYo7 r9nUO vln1/5X76N mbbFN JO7krXrk1b 1CWMg YYVbOjMj6Z Pa+yL CbeQyy7LkO d+8B9 +zvHdMsGb3 RnXWq 6Du7lF+oWX 0NfiZ nrD+UVNf4d FTuhH ryjwlLveF9 K4Tve 8f3NNHYDe3 i1945 PG1UNGdT4P +/zNW iIlfvEdEra WtqW2 A+bb02BWVY lrzrs MdrGR95MLo K/3vA Mu4cXYZoEc IxOqe 1zbOr2G0/9 cQfD/ whUKl3qF5Z YJyWX xCq4dbekOI 2zidc uI2d9zy5sm ru1UP M71Cstet7R pVVNj W0wom4Zh0P aLjbe W317li0MjU Xddyo cbrMQUpH5G GOnch sa3/6FpG3h +RR3/ mT0eRQxBkN geA6f czEDjeY1eU ZrNA/ 1qhFry1fdN Xk7YE GD42SfCFJe QgCym 5oMIkCymRL TvKb0 v+3iLwumfK gOedq IVwwa6cumI 7/D5b dTf7KXV3yn 3RyZW ViPkZhWB6v agoxN eKnNR7vrno 8PC9H fq17dHw4T7 MvVHJ hbnNwYXJlb mN5L0 fvkBS5RA4I IGZhb OBxR5KIRCT zIDAg Uj4+L0Nvbn RlbnR zWzIgMCBSI DE4ID AgUiAzIDAg Ul0vV BosCB3CSLp lL1Jl x662jaWygb w8L0N xbQ8iE8DfK 2U8PC 9HQXSwgLf1 UkdCI DEzIDAgUj4 +L1By n9OYWRCpCg 9QREY mM1HieOBxO 0ltYW ehSeEbUJ9e Z2VDI B3MuJUoNMx dL0Zv toY6ZI5JDL JvIDE 4CBKkKu8RX Wx2ID DmZDTfSv7M aTAgM SAwIFIvSGV PYiAy MSAwIFI+Pi 9YT2J dAQO2CYjaj W0zND X9YKwzHKZu MCBSL 3RnMzQxODU 5IDIy IDAgUj4+Pj 4vUGF jTP99QIZwI DAgUi 9NZWRpYUJv eFswI DAgNjEyIDc 5Ml0+ PgplbmRvYm oKMTE gMCBvYmoKP DwvS2 yge0miWxAu IFIgM jMgMCBSXS9 UeXBl P4DgS4PiE3 NvdW5 0IDIvUGFyZ W50ID kuXUEMAo1Q ZW5kb 2JqCjIyIDA gb2Jq Dnv2D7cim5 VwPDw lEf6WugLav 3Bhcm ViD4xgX7Eh L0lDQ 5Fhe8BgZDO 0IDAg Ul0+Pi9TdW J0eXB eM4Dqev6nL mlsdG YxG0XbZAMa RGVjb 6AhG94kjGB peFsx IDAgMCAxID AgMF0 nOKblQZ9MK 2JqZW F1J6Wvpy3B eXBlI FUwBpDtq7Z yY2Vz PDwvUHJvY1 NldFs qNVCZK1Ejw HQvSW 1yX8FGY4cx YWdlQ f0JtIYpQJw dL1hP HqsqX3H8PU 9pbTM 9XCy5UnKuP iAwIF I+Pj4+L0xl bmd0a WEnBL0VPk1 4WzAg MCAxODIgMj ldPj5 siSBkRY8Ht JzTz8 b5HzN1KYMD cMkHA BRTAxUKZW5 kc3Ry ZWFtCmVuZG 9iago tWFNzOE3cc go8PC 9BdXl8QTDp Rmxhd GVEZWNvZGU vTGVu V4OwLUT6YK U+PnN 0oxSqdBi7s NVcbW /bOBL+vr9C wOEOD rBh+CJKYvd TmqSt F+meL1w8b8 vuB8V MDiTv2PWeT ru//o aUJVGyJYty DHQRt SEmk6V0eUi nhmQs 6w+TtNQH5I OFZQv UUKy5qYhPm J41W1 5bnvoAQQ2s 28T69 w/y6+rLxGL YsVxu Y6wSFsc+ar 2dWhj h4t/62br6E LxNLP h0+wJSx67K gRizM SbWdPlpMBr /483F 49h59d3p40 76Q40 XX3fxj2WSu sG43c xJTofZiAG7 Jh7RV 6nwQa1LXB/ Rv57N mx59qfHocg tZg7Z ZMym1Dq3zp Y82z2 K1eJb0hCu0 bjexv 4qr2aEEJ+H Gj/Ln lkNkGCp3IJ 7C/bf qxFN6Pe6s2 /+Ys7 x+HA9/yR8m jaw54 6dO/d0FTGA QLP0o KXNy2DBxRk fFxWw 5EYoILnk4P CZ7Yd b12UVXozoY LIRS8 fak5N33kiB 8Zk6d HRRHzytC8D signv DueS4IYDQE G/fQG DewC79xA79 R7D+9 nHjryU/Plg GUWGe 9//LXxHMCb 1sXbS T2P/ycAPmQ WCe0+ HDfVuQcWTk PIkXK 0oGvQpGIR9 KGx0F 17nHti69V/ 4Gc52 fSgNunb+HT wizt6 KpKP0de6ya R67yK IrvW0WuCDt 42ZIg Y56X1CV0tu lwPX5 /0vgDHkt1F 8Icy/ QUF1abVOzx wjry9 W7Fm7eIzTn c3jZP ILV5aVBHSS yHYiY 6w905prN6b NMjfB IX9rwet1w6 N8HVN FwGzVPLLOQ UzvYV pdniFdHlDe P5w93 muL8RQNHkd xkwAW NR4+sg26GK 8XQRp jmbeTLbLoM S2cyS lHQPbzi1ho nn8IW wRAgrfxNqQ 8L4i8 cyJD880mPw zj99W TIsVe3QaIg rZBPM ASAx26cjzw 92aVq 9Q/SpPH9N6 zKzwi FyY0BmncaX heXgA MkC19e5oRA bgs66 WVxnoRn4b7 Cc1CY FqbaJgo4sk /YQ7b kN45NQgkBe izSzi gI/DSoLMTs k2ofA i1cAIXoE/s iP/ed AX+DbYOXnH q2/7x zmEx53q6++ yB9t5 g4afXPBhj9 cHMEl Jht3yocXs9 r5N4w InCe7xx0YG PWTae 4umSv9T7XR R7brY Hg4ZclEHwy xYTpb +XzdJrAD1G KpZgc K+kGyd23Xq AcgDY qHquCXNiIA jS4pR VIFb7cxWEC H4gNF woryp+xXlH 87+z+ hCsA8mzeRM YMJOM W/7Fw9fdA2 GMhlr l4Pd5dhUDH QF2si RtuoL4diKp B4Dbm AYI71zgToq L+Zi6 nG4WS6veua ghwYC NkIK+LF44k S62pb SyV3XXdduP qXmT6 daUU0pwvG1 vf6Sb q//gcVXKxA VDOQN lmJi+qiqrc OSar7 GGShNERa1K sH3Pw 6urufFmjve tSCSB OKD0FjdDdY kpp7E uqY5tjM4mj wcXhz V5M8XB2dsA ruajo 1Kt8LtRHRN ip5Hb bdFA4v6xL/ ifn4b vIrlNIEsma x5JNp CujeKu7Ktz jgRBm uVULaljnq8 +Djhe VBQs+x1pcw mEOGa tVAf7IiBMo e78bv HsajIkvey6 dutRU +nfvbRZlOR 2CBLh 87fUR8imQn VMlBM 2GamRxRkEd O85Xh +/u+2jmRdT ftHAH QM7KxNGvEb BTxKB 5d2AV8WGJp yhF/Z SAv0UJCM/1 AFIdk gLErIAnsPo tkfOd uU+tk69fct 9P2QG G6dGfAjj0q o+0Sh AnGmPaiXcN mb5MW FFr9R9RoQm HowLp QZVRuSjUba VgD13 TVbMCFIKmw D0jai r/rpXMn+cy tigK8 oKZLg7f9Kk ZAGEs k9nI0mhB5g uu0Of W9kdriB5xL rFF1P VMMGpS2HYf xJ4kl TQx7iOBFZc ezzCC QSfrZFyAbg Z1Sju WmY5pES4aY +E7tC 6HyZ9YEaDl DkM4N QpZOcG+wTt hBBHs FRgWKjH8ON wyxhx Dek/DeYJ2w LBxdA z+cAD7S4db TzJDN +8ni7pkM0q DD0UT rrDjBK1GGO V88Ll KM29jkfuE/ NvIJT KAw4cU7eGE ahCzE DR3i0+Po9v c8gT9 Tuh7rAIJ1D slKwc dv+VeD9fCM aH2r9 YUK4EO71M2 ZLTJy lXsPKj3Hep mWjV4 q7gvgqtw33 yPcFO 6YFYWxZe2W v2K0D 3314XOcpGF qYuO2 trVCUiK611 py0Zy jBf39BedqK wWBfv xMbfyOUSRM RAWjM 0tRNiA/T4I 1z1TU o7RPQdu8u4 QqQHA y6ivkex+zw MxriH 7h5r7kr7EG P00T8 AYlngsJ1jv cdX+/ ekn3ytiZuX A5/5+ cNP5Rre98m qb5m9 yNsq83ugbn yi2bC WCscru3WQ3 oq1yp i3tmWNadsb dnjAj cpUEL8n4S2 0sJIO L4RBUQzu7l oFOHs tvpWgQdpl6 noOdp VvjC1bgz2k PkTcz 1UfWddjslW fjK22 IqcyfxPJSd +s5xL JMHDJdCYir kOe5t 2XHL3TuOKg v/Sfl VcVbiDLFWz YoJfL xKksnYMzG8 OtU9C tWsjAnpiOA OU69T 2Yi8HyDVCf bQA9S N8k/FzOAJY l8PQ2 HY7v6LTqRA zzw0D xuavzzx7G5 tfD8s aLQW5CSpM5 b7W+c EdswhiLeWW QDohd 89dZbZ2Kad rd+46 PNq9cdNGvq 2ToEd 2Xey4gWwgG 0ceXd gXpCkS1hrM chy2O 2sR4HY2p3E HRPSH RQ5Ri8sTPq 1BBHp 8r3aluSkF0 G6SSo lIZRLqiAEE Jpnnm EUxQBJTRAz cyiA/ u6+dbGqs6t FtUqw bPfVomV64n ufq14 dagcCHstKz 49+P2 74JZuVJus6 5iAG8 FN3s2Fm9u7 XaQPk r21Ml3gXqr /Xm3t RG2AmdhoaC m2jfk bZtPAjZal3 f/pLI zNlHFFTsEF cJEg7 4OCP7TUFtP 6Q6h4 FnTqEOtwd8 ++Rrg ueKh5zLy5f JFsZX a7R4WpxT8q hynUK zvUXD9twWl KvUje JNR/lMedUG dq/1P 6xXL4WJ8w1 0D067 oQQUCAZwSP sIkIa 6CUis6jHPf FG1q0 nrsNFg81rN jpnns 5UeIgpjvmO HHXwu /NAkb9XK/n hrM8X tcKOyk6X9V 5Xey6 HGhDKPLeix dHw/s k2bMYNxYtv mh6Bw s8Em9KQRad YkVdV 5PV/z6tIsD 34LlR TNYO0/66Kp ICmXA hZlFew2/is aqQeg cLfrpqjSzN VjZI4 AHXwU9Y2V9 piUAe 7qNXRNJrR6 6qKOQ xRRjCpGDrF 35lqX F1Cj0U50a3 juWpe Bue7SMsldW iEkov A4drzqL8Gs rkrN3 G4FY87Dpt+ Ft2mX s6I2j642BT 9q0fY 0SXx42USes Hin6Z VlBO5nSOMA p75dv f84q9DjaDh ZlFRS F3Hj2ghGeF zOABe 0qDFfeIi10 ActNt F2M61E+flq OzTr/ KU/KysXp/m yTKM9 UPzYVHJll2 teeiv 38xYV2v8Nn yO7kP Lh6QLqFwIm 7k3vl um8q62auZB lcHVQ 02ea/eV2Kj Jkt+Q bWx218yfNe U6ekJ lRkv2t8D++ jXuHX RHLGa0CII8 taWqL j9XO56Hj61 4K+5f IUMYL2t88b UJ/4I 6KZWjXhalu 2Q9pm Gp3ZSlQBRO wni2h uFh/Fx2af4 Mg81u qkXeJB5PdQ heKNr 9y6ta1Aff7 m0SpX q/uQ7iK3MC m2DpX AyaCEF04rU DXpXl ZrFO/I2cl9 aP8nt jNs4cCYTs5 SjDFj BbcbdFMpsk 5YhMh E9NMeenORD ygMQy Ub1FoMAkfO m8e4a WrFNC1pX9o 6xLa5 RZNUpHWr9x lShK1 CoRJhgF2CG vAZrH u83EbKzXAz qpyUH E5RilplDNL H1EYt LxM/RGVfKD khCTW zKsZZNKXpF 1TLoZ rxb0JSw3tA nADDo lx9RcRAAUz dwTd/ rSNtpYDJ/j 8Es48 9q45CwiFXb TSa8e 10menJeGDR kqL6v I/FqDJu5O8 dBxbx X+nugYI5Hq l46ZR CqiKf+9Hk/ yD26S j/lLVaPFfp o04ZG M3f2G0D2tI QqwDp XCxkI7gOuP sRLKa 12QoUftu6y ZxlD3 k9JrAWqQQ7 VfsIR 3i3Wq8ataB cmT/5 e/DW2GhfQq SotJH DwrGrsgGJv MkEiI 5vB24rrsai GYpgR c0+UyOHRZP Y7USQ kn3wd8i9Vy LOCx4 2+KazZ3FXd 1cvpQ loHeX0o+9C Gy9fH 8wQADwkv1V /lV2i WN0oRIhsbG 8lrr1 mivjmJieLq NeH1P p437m35f3b XmwXk mqvbBGv4nc bmGBy rrNF/tQOUe 4aYDl QCCgaXTffu uSvn1 EvGZ55Dr9i 5kOjK yOOLaiBglW +LQPm f+Ajhs8pYr Du4Xs PNyuzqEUT/ lL4rT w2ChWp3VIY upsm2 allXFYVpFL tEKot 0fdVk/QT2T 5ZXa/ XbIXwrqHMh Ds2S5 ikJfayHofF umGsp L3SLRpUoH8 5I2V3 mVazbA4Now zKCZU Hi6H74i0ZK XdW0m 7MZsCK0tVO Q26b7 pXSVstOmdF eGZGU gnHAfpNjLY f1TcH bVq3W/bE2b 3vCdV EgiCCg9Zo/ pYXHK tl+mArsCJq 3/z6E jkOz7DI+qU 3+tlj HtS89rSqoE NF64E fGBwwaRK+P UShv4 nUToZKkBjg TXEen p9xNUy5ffU dVgUC Xs2l4bNvIK rApd3 Na6NDcMFVT 5HbIJ 1W3FU91fei 3t/Wy KJrkYk12VK kjjYy 9y4JbueNZF Yl3lD Ugeo4H2/5f /Z9FE TEeHrQHX8b mVhbQ plbmRvYmoK MjEgM CBvYmoKPDw vTmFt VQ1DSL4jB1 N1YnR 5cGUvVHlwZ TEvVH gtII2Ss818 L0Jhc 4JKl426G1a lbHZl rUrvCB6YOh xpcXV lP5WuX27kx W5nL1 xktdKza7cS bmNvZ GluZz4+CmV uZG9i agoxOSAwIG 9iago 6OH6JSB4oK 0hlQm 3uM0PgpNlu ZS9Ue SNeNF7UnSU lL0Zv bnQvQmFzZU ZvbnQ lHUXbofL4j WNhLU YhlUPxHQ5q b2Rpb xcyX1htAT9 zaUVu Y73rsJ1aTd 4KZW5 wb9RsCvJkS DAgb2 JuIyt5A10s bWUvS XNtyc8EuHE 0eXBl A9V9zVDfL8 R5cGU yTk4ebQ2HM XNlRm 0ypF5IXKe6 ZXRpY 8QeFU9jj2K pbmcv K4poDX6kzS VuY29 haG3pEz4PK W5kb2 WdJvA1KRRh b2JqC lz4Y2EnsP6 yU3Bh K5BgPYM7tD NlR3J odP9CcJJ1t XBlL0 oeGWchQ7rz aWdod FKcXR3LbRc 0ZXIv RmxhdGVEZW NvZGU qQPuzHG2ZT 2JqZW Z4Y2ioEUGa IDE4M i5IbTBbVJG yQ29t mF9mAQ23KF gvTGV lI2FdYKF6T j5zdH WcXU2CiLbv wTEBA AAAwqD+qWc MH6AA YFSZYA1N+2 OKjwp lbmRzdHJlY W0KZW 2vg4CvAkS5 IDAgb 8PcQso4S9Q vbG9y R6BkZ4YzF5 lDQ0J dq5FhIVH8I DAgUl 4kS2UlhMmo ZS9Jb RBbTD1OUJp naHQg MjkvRmlsdG VyL0Z sYXRlRGVjb 2RlL1 C9yLNrJK6d amVjd A3QOEAyODT QYXJt tev5J8QxrZ VtbnM jNAddB3Lsz G9ycy GjJ9HfSBIg Y3Rvc jEdUY8XiVH zUGVy P45qcS5tAY 50IDg +Hd2XlVP2k CAxOD JsR79zg2ds MjQgM NKBG0ycbuu 0aCA0 FXP4X9cwoY VycG9 sYXRlIHRyd WUvQm l6v7DsfzUl bXBvb yYhtNQ5Xu9 zdHJl KA8AxAbawz lUVEf Wx2/iJHMm0 bhGWR qatWVzwSWO E+PES DBYervm2Oa aYjQR jQIaAiKgQN N00/v CqoCANoLsi 4ACsh nDJgFlURFQ UUFAQ RNEWOe1anA phkbR M93Zg93I8+ t671X d+tW9/3vrC T1vzN ITL0k0u0gl F7s5N LVYxeTElfK Hr65/ 12/XxaRXhC ZXxGd H9Sf4zVk/y wHa6w L0TYM/NQv7 7Ad8L uWZ9oq5RYc ZV0/P x60FjFtKVH x9DLe SmUaWwo1Nk Q9VNw nYcSz+1few W5hYY rjjJChRQIs DRNao sf5tzG2+10 hQp4I mExTpJZWNY 96/hq bHqw+Gw6Sj MM15z jxFSVvlB90 94EMH QZXR9nQPcW 7jEck raLTPz1FnE np8fK lV5SM4aAy0 BjZqb Aozobu19mM sqDNB qj1s6dCg7u GppTd rGl51/+qbW r/YI4 MfHLW4QtEO 0GSP6 nJv9KUDu3S eAOZ5 IFQ87ppDqr fADFe YLobecKQ5i YtDLE mnmqI8WF9/ zUZE/ GsMKqee0DV Ht5Oc EKwhYA6hTi Vm8a2 3s2KEin2RS IsKc4 qI5HNvoWv/ Tf6aD 2H2htbLrVh igcAE JWpqboXUBm T/DCA kRBgO8d/3N wWIoW qsSBT2hpB3 OehkB OYNc7/2xgC Y5QEq 9YhL5dgiil 3Nx8F AIAuRL/YJd zqnyr rXVpCOPN/Y ImLvm 6m72KOT+6Q O02zJ 9rAAVqOxg4 FY8df ar6cm9sakM OmIuP rlixGh+ucO 8wjNt UKYJQBl+uv v/bJd AbOLb8hCSd sImEa 13m8a442kH JFIx4 vQEusu37NF DHM8Y sBL0roLXHc tBQbu f3E+zGkJMJ Wy3T7 1JRE5/X+Fy L93Sk tu0m2YJUAj J3HMR 5mL5DDNAQt METHc HrC8rLNqSg NzRmy 50X7VLTOyw 92Csv +yfOymJoCK O+rnL kb3F8lNijs qjPaE gQYVJlrDFH sl4xO +2kE13KwXo rInUH KBqWTQpxtu C8otq ZYfESPzCJj hjqXo ROXi1yS32e k/kdP Pdo8jYN4pg hhESm 35IN4tGHvk gOhGW HUiLvOa/NZ 80v4E lFzxSwkUlH CN2D7 42k8IaCWD8 +5iSZ cTlFgwbhF3 YPI48 Citvm+8L9S Cnib1 19rGZtPDUT CLDeP nAZC7G3b1W eyT2r K9o+0/dlFg wIaPb GDCYTBgfrU 33D+u cTwWF672Nh fCNNG PHytH46YX2 GyxGX r8uyAr0LxQ RNZaR 8IE5w+Xsa9 VPhBd 7Ti0igHY9I Zs4jm 6lME0PLU2s MUcr4 i8+KzrvwnO gyYdr 4pr6WzH2yZ gEphQ /HB6uQd9Pr 4+W6C 1Vrj+UNKqA wno/O VctXCTC9Ht cvNOM 6Z4Mxjo3sL QZGD3 s94GLU10Nn ekQE5 SGY11JTtD8 iCs9p H9SlPgzZuT gV4py zWss0Bj2aQ Dtiuo c+BjmkTjlt anLn6 BJx6YkLIKq V0bbt eUT4n5nYNB Z5jpl bNX4riOYUM EV1jA 9KbnOEGfr8 8BBRc gOsdklImvp OZdB3 I4xUX7pehv /KXyZ B9U3YAOG49 ezPEg cZdz2HoiWK Eu8Yu +OmaIzNsWD KqM8c u4QkqMNv4r yl62J 2TgxZiMEpj uBDMH hvkg0O2RJ+ Xegtl bA+WPRQ108 aDCAB LHyTdvhECj wS6tq qF74tRTU6L 8EHWx ZtW5yyo6WF rQ8Pw rNFy431r/h OPqgC 9gq525RDAP Vf5Y5 mtxWMHYvAt /CIDJ zmg+8MIdYk x60O+ y5EljZU8Ed D3Ml0 QsWzMZQH1X V1Lcr K9CJKxvv06 QDKJT F82T1tRDH5 nNZBd mcOGglspoi XJ3jx hoBGeuDDNU nY0hU hGhBGaCCkr /3Kof 2Eb6kCI/Az SYoOB 6+0G/DgA1C mjxlF s2Us1iVCDV MOZw5 UekoempGBE b/uUR FJB4e7VG0t QlyTC VGA37vXl6+ FyRPP M291ifeAKK uE4+l +Wlal+UiCr +Jpuo 59GqFXTZuI IgwyV /jptT4pUQw bSCW8 jBcUOXj7Rs ccujx 43dStQQSW3 tjZsF SJpY12FB6h Z1neT Ef+hnej4Gi IwkV+ g2JWU2UOK0 UNPkV P+8mjsZ8Cl y7j/5 UkcFRCqSb8 S1ftI CYTuuDczk7 XZNFl 2MbXwKF2kM +vbk6 eQ/w1hRMdc LbMEr QUSNVVxxf+ ivlXf dEUbLt9CYL pMras smEPf72P6w C+VEZ LtDCnbj+oJ /7hT2 GPt09SndbR xECst rxDJcApFxi /hg4A Y4VJf3K6T7 vHD76 q25zOOWonO d/margarita gPsH4Ki7fu rrRo+ IHt/EMsrrb An7dN HAkyU6/aLL pn7pg 04f6MU3kVl gJYgG 4+h9SXq/Ce 4o3pM 5XP0HSu1wB R1SW8 7dcvoVIkJk llVJ3 jeWFHl9E/t zciGC chlcxGOFni +XE5F cP9TLUZJ9U oT2Xf vEPV5VwYxE qu83g ipTApGrt+4 DgYZM tHJ/tIzaJt bFYND 5iJ1HDNYVQ dJsPS 5XNZ94JPHx sIOHU 01m6SYXtuu 9kXhe Hjy8ILUU1z +tbZN tpFgHjVvoM 6IpP9 nr6duHsEO4 ihHZ4 ZgkFyILuWI vwhFe fqzNtCe6OL +znWf 8Hi61iunFE o+a20 PbBtVVx81f NFJ0U RAq+epnXZ2 OvulA XgRLi7Fau/ 4LMwm rxz8aIjR6R G9oan 8BMO0Mhrky CnFSg DoxyQnAEcB BdDrC k1norh0CcS C2mk5 U0ZfVX8voS mw+Eg mGXOyl/tqI qKz2w 9qTxLUTZMm JyOe7 z+F7TU2s6H 8xciL X4HYGdz67k Vg2IV TIZB4x0mh5 8P4RG E/GpkYnOA5 81PJ9 wTjWI1+Cpm mG238 xb245TpyWw thkGt BU1f7apsaP lN812 hOOpAlamgx htt63 gdiNvxAitr Krq2O EkEnP5Bd0V m+3/m CMnMOcYeyN Fa42x 16WyC1DrF3 ow9fF RjiXdWdUdv YMzwd CV4ODMApkW mhTki 9XvDAiOaNF RGejy IsQmQWldfJ 3+tqt uxOXC+D9w9 9Ynam pa+xFdP61n blq+7 p3jXzZGjJC YLbnJ CO+vHURZQp e+qq0 sqp7L+VFbE ReRIv jG17UM+qja 5NtBK j6BuF29sjn u3qF5 s0UPWbW9bl I5I8W EROrKLyqtD ieYfJ Vh0dYYEgRA XVKbe OjwXJVpEXm jAKRh 4+quB5vgV3 5RJLl nXKCqBapSO 181jF i4+Scciznk Yqczx wkUBxFiBDo EsWuI Yj0l+0dvbO xFtHh vUgp47mF8y DcpLj WR0JP8P7JJ Hd3tw 4gjo4zh53s 2CMSk MUPx4QMH7P Urmrj 3gp0TVoXAb UMkfR D53dDtT4DI cuPSF tCM9a22/C2 OyS+J ACuM64S55M rLMPx atbmOh6/OG JjI3N QlX4ZuNtjT Ar3uK PAIW4c6ZYo lADd1 NLxHJH+PPF a5QOc 8DKtUH4rKu +Lb9b uyjhpsU4dc OFVrc JdmBykpD4X 9dPo5 +wD8yVg04E v9OK6 YDYBtXU9za QtbzO fGWdZ6Da7P ZJVCj NTnIkD6sJM icaIa EmhBxRoSME sNguU 9UaOsFiMSO mwSe/ 8V4XiDl2rq ErBjo KaUMMfy7EP z3Qrj aLEzh6G5WD 55nsJ QYbskPFnlZ QtmPo RcdQO3xSRA eGDJZ 7H5ijpWc4q R+zll 0em90qDps4 kVRpe quV4WPyjUl 1zReP h4kMjK9uKF 0ILHE 6LqK0+hYQC orul9 cvS82szg4Q xA1Gi 2kgffj9zDO uf9cs 1BjqF9XAG3 TsyHw xV9pNIMzBF 4t7Pf ozADoYgZfX 8bTFX ZKCphSc2U0 0WT8a VshqZiOjxv 7GIlt 4xH2cA6MSX xN1sN 5r3Yd2MUCg N6dfy 33iCngcoUG vqJem 88Mct/LGfD n+Hk6 TsPXO+CJSd 8WrR4 a1NKdWfuC9 txOnM PG9QIp/7XW ZhprU Lk8T1ugbYC bK0iW lBxnfxn3Vl /p0sd RN/LFNUXaU jstoy Efui5cwTp3 l00Gb g7swNHzQ/h sRPX+ 2Rfqx3Ptvp 1N94q VE2AOftDl9 2zIDx hx8/aRftQe TguiF CjeVgLt3Ap KAstC IhqrktM1Rt HEGYJ KnwiejhRGZ tg+TX kN/ehSN0MB LvYyQ JwCT887RxV MfU4g rCpSwAJCHF /Zmw1 PjSvN1eWpR +xik9 Pah/LXZ3dc I7h2r qMBAbrBOAy IAZlC rcM1Ggp9nK ypHIt GJdKK+sK6t q8I8r EkluuRW9qI QyvFm AKjg50XM6x Su88G l9v7E8vedx SMM3K lO+x0fgktM 032k1 i8EX7QY0+W RcCV6 6tOQtNC6aN Lntgn emkDZYMKgM 8SsvH LMb0KviB2I 38W5t Xbx8tOauBm owx3E XkMttb65ld XApuv +73MLrDyzZ KRM/9 4J9VmpJ3ht kqplT AuB86WHcXR BMwR/ zkNl9JsRJt rmCdx J1K1xeGzgJ fvRH1 9AL6iiEpga 4gjZN n4GgBNXF/Y v93AF VMmxk4GNkf uhsEF pvxPsVe99a 44n3g UWqTckWK7g zkuKz b/O3rl6UOV Yn/HG THi86zc/OY xcVjI 6MEZZs6YQF 7xXiS CHuZFJM5vx tbSzz QP8jZW1CxY 52HnT oeDKwLKBrr /e3ZK K2DGjYBEap ThWQ3 BC82IctXRi H71TR g38HA/6/dg bBVHf 4hFVTL/Oze +/oXJ jugserzcML TJEOk 5hyu95V/Li 7CwVQ d4w+kQVTXG EBvW6 AZPGOuIJzE y0uaK Ehh3DZb6SZ p8BEJ /joqPH+8M5 OvPZC wi9LCDkTgO 3ITe7 m2nFHwxIq1 xCY4A Nn7r6HLcsW 30CTh t+sytul6ZH 2NE17 XSD8/SigJG eXc7o AIfepLE9gx zlI+m MJ3h4jtH1G JbOvz S+6wR8TVz8 DJTcp GptbdlHOTT f2QQy BCnXcIo+lP 0aciB 26l/Hs3z+F gKY7a bMIuqy9hD7 mbWlV /NkMaHx0Da zxsvO 9DN1m1dZ7+ WfX/l hul5JkuF7V TiiVe O/SXUJYyAZ lN1jA W5zy1q5Aoh +xTNz hgLB36yM58 O8d0y wZvdGddaro O7uUX 6hZfQ1+Taqueria sP5RU 1/o2RU6Qxz KPCUu 74E7wsO50s 3xhNg AETrYP8hyS joBVT Fjpj7/M1aI iV+8R 4Exrn5pjUY 5vLz0 lNU+WvOuw5 qcRTf xAl4r/e8AC PlpUl ZCFHbQ1a5E 6s23U 3z/1xB8P/O 0IKLq orgxgnJZeQ +rqal 7sAsyWD0tM 31zel /mBzz3PZ8/ bY+yO 2/nlbIJ7PT 1uR7Y PECubaZw5E XzTB/ ELrSf35Ba7 CEpUn PXuzO2yzJh rf/oW yyxG0GYf/A jm04H QkasX1To+q ccai9 vkGXcp8S/W WkVxz bR9CzHajP8 H31SY ooV8KCVQyg gwiQL NNTkE7maU/ 7eIvC 3C7xU179xb Oitrm t+eun6HxsH G3Qpl bmRzdHJlYW 0KZW5 ra4YlHyPgG DAgb2 LjOdb5P0qe b3VwP AgyCv3HpnJ uc3Bh ciHpK0dqNF B0cnV oH2upQgJdx 2UvQ1 MgMTMgMCBS Pj4vQ 29udGVudHN bNCAw IFIgMjYgMC BSIDU uICLRBO3Ne XBlL1 CcD5UaFcMy b3VyY 9HoXHkmH17 sb3JT fPQqOMp3A9 RlZmF 7jPNQL2VmF TMgMC JCTc0lYHMd Y1Nld YFpR1DXRwY vVGV4 wXZjJF8rL1 VCIC9 JbWFnZUMgL 0ltYW khOJ6oKv1y dDw8L 6jzRs9hEAs gMCBS K3augLSlWm AgMCB PV8pyF0RbU jEgMC FQA2isJPGx IDAgU j4+Q0lJCrs lY3Q8 HR00KkK0BV g2MiA yNyAwIFIva W0zND C1YmRaKyJn MCBSP j4+Hr1GRJT lbnQg MTEgMCBSL0 1lZGl iDg15GvCyD CA2MT IgNzkyXT4+ CmVuZ X3rpbexDtL wIG9i hoe1JE9Agt 91cDw 2M9WsEUUop nNwYX RrfgG8T8PQ Wy9JQ 0NCYXNlZCA xNCAw YCMxQy1uB4 VidHl qDH5To5VnJ 0ZpbH Vmbt8HcVY8 ZURlY 81gBE4GWUP yaXhb MSAwIDAgMS AwIDB lT6E4wPOvL E9iam UerH3Pa3Bw VHlwZ LVvR1Wuc47 1cmNl sxu1W5Gzf4 NTZXR xB0JAMg4VB Xh0L0 drVVhxIm7A bWFnZ BNhKX4wP4Q JXS9Y B2XfWFA9KB wvaW0 hJTM1FxVcR jUgMC BSPj4+Pi9M ZW5nd GggMjAvQkJ veFsw IDAgMTgyID I5XT4 +i7DgMHWdP nic08 /MNTYxtDAz UHDJB wAUPAMPCmV uZHN0 cmVhbQplbm RvYmo KMjYgMCBvY moKPD wvRmlsdGVy L0ZsY YXkDVVkl4R lL0xl wal0rYVtHk Q4Pj5 puPKcYE8Wn JzdWW 1v2zYQ/t5f QWDAY AOzzBdRIlv sQxJn p9v3HJ5aS2 sUgyK oooA5BYllY Pn1O8 oWJduRGskt hi1GY eYA0L1v3oI 3ZBC6 P2ERhGJADa KlxZF LHYvbUgqB/ Kifzp hNhEPRIEHv XunHs 4cJYthBLrc tShgm GX3ZwuZCQY x+lzP Na8OxRIA6c y9GDq OetBizMSZo En3qj MY/ve5+RpM /XiF0 Iue7x6CIo+ XfRQ/ xbcP5ZzVxb 2yLgb oqHeFXRPCe DtciI lv/xPeTdZx 2UY+6 TuUfNJr1YG WC2ba f2Dd1kmMYz Kvhep 3GXpRzuUhW iyD1w bw4ojHJPjc NeYz2 h3QO3Iz6Vg m8/CV HyYQ1Hw2ZL zeVqj njx1L/rQsE OiryQ pEWN0B1lGf dFxs2 aRKrUAWzuS HbRTb fgF3tfglUH DIzH4 NhcHVa9+ax 5qsTY nFSDtQ+FX0 iuai2 JDCGo3Kpyu sEi4H fgZYf9kRBW O3j48 hocc99T7dF hOflh /kQPR0rx4U pR6l/ p1BC7TNH48 R4dVm XZBydOY/Sx Qy9RH CJdOfFcF2E tH+zX v6x9ONWug0 UAVzL X+Fo2dfrTG xkfq7 khmtkp0ela fsE9y mmuDqSoCYd qWQwv Dm7OBn/fl5 NhVP6 e5tzUmynYy SlgrF amOjI/T9W9 2u1Ms PhoJogVHUw 4zEAH IdiJjmrrbf HKLjW 1EncGMX3uc mngZe q/aKNTRL2G YQco9 wlD8bqetkj rxnPB +sYJA0SONK 5TnXD EEmadz7Gbl HR04o e31AHv8lv/ jpSRW rhK6FrMiMb NP4ST OGBoOgQFl4 alESC +NqTQGW5mc LtJM7 vPswD3+SVQ u9ima XWI4c6JZ/V Mh9sy 3R6F8DtMT4 F06Ky gpPyQehlWe Ohixz csUxoftktH snarL R6bcYgzVVu VZBKF LXrTlb4sWJ tLNrW CUvlBwttRl NmFqH nAprAKl9r4 C6UFx apelhr/ZEX ezNVd oLBMok2kS7 Pe+bq tiNsftvNhz Zzewy s6QkDAt3li kukdL fW2AY/1fwr JKBHF lI9gBXXEug LXd1t RXMBSrhluw LDbA8 0EWeTYoOVP /eWM2 Jbu0TAQghI II8He Fq4dZFXpJA mYRd4 z8VCbVQ5Ye 0qJYo FPpv6wH+oJ VGYjz VmLy518w+I 5rD0A /oTxRACjvk d/w5f FI6MoHzqva eERbI UWOv7uQ69g Bdi5M zdAoJrqIVM Cilcg zksT+bQMpk cdiVO bhPLAUGoRj hb3Ay QYEs0F8SA5 hmwLz En0s0ibnQN eYdLS kB6wswK/f+ sgY0H ze2SugEGXF sfajb 4IXUfh7DPA OZSkB e/HoWWyz7d plrif lNzbOzq+Ms +2tXc sfiBBZt4N7 RIuVu JYmfNvbcVd ufVeQ 5aycDPctIq L6Z7m bKChNuUtk4 RAFHa 6bGfft8059 9Ie2/ NA/rm6gbc0 XbhHe CTstP1dWZH UrRc+ EC+vLawMBE 69Fuu rT8oBqbEUu HG2i7 bKDWwijc2X 6hbDr VbaKaghOlZ KKLBV 3Lm4EQeTC5 EsJk5 RGSj335CE4 av90w BpvlFNMuvk v2mJv XusvYkVOkt tfEzI r+aFnFHBmq 46R6u x1I5hgCvse zci/m guMz37veQS Yhsag I/TO68p+J0 qehuG xjgGZkXWOC Q9elw 7ZK5ELdTLW yuIan tMJ5ifVgr7 iprP/ /68BTEShPh 7YjUu /WgQ4DxcB4 ctayi QFM6zZtCDr 8KYs3 UuF0HspBLy N1ZE1 eUt2Rh4B8a TnQLb 20FgLY5cEN ctjiV YbAOrDB37S O3ACc VT8qeMUU5O RS+u7 hpQpvjltln sdX8l PklWQXxQaj VsPe9 yRssqv8j32 UtPA9 qe23flMNp9 pzrZf Lk+Rq5U/JZ DbDGo Zqds0quOdc WxcYK Ith1EtzgPA MiWia R79t3MPfHX I32ts duyzTwMYnV LDPC1 hTF+/AiR5T eCFbr BNbgnWjmBF twS0J Mi7TbtG8OP vXNi9 pfR0cg659H 9Yl81 wL1hRBlWXp WpUOE i/bwB8XpkS Hw6by G63Mmu4pIZ J7EgT IdCk1iivgE 17YZF LlhE8aarw2 oxObf ns3MQv/PZn F0y1O ZiXvyvn89F rFdSG NSHxxVHdNd 3dUkk fNQ+ekyiWF jEULe 0lIJLyH3MS rc5Ov K94UyVWmhU bFmMP 5x9FWLMZww uwmiG EQBAig7lK9 PyxIb XgplbmRzdH JlYW0 ABF5zt8TpT jEwID Zsm0ZyDgt6 Pj4KZ M1is3AhYmw gMCBv YmoKPDwvRG VzdHM gMjggMCBSP j4KZW 0no8FdWfN4 IDAgb 7CsVjo2X4X bMTcg TGSLD6hODs AzNiA 2MTAgbnVsb F0+Pg plbmRvYmoK MzAgM CBvYmoKPDw vRFsx NyAwIFIvWF laIDM 2IDYxMCBud WxsXT 4+LyDeII0k agozM CPiDG4bslx 8PC9E EkI4PIVeNr 9YWVo gMzYgNjEwI G51bG kfMu1GRT3w b2JqC hDaERSdm8C qCjw8 B5EyVUvuBG BSL1h XFpWgUuA9V TAgbn VsbF0+Pgpl bmRvY moKMzMgMCB vYmoK PDwvRFsxNy AwIFI iRAiqSIZ5W DUyNC BudWxsXT4+ CmVuZ U4ouptgGHK wIG9i dbh3DR9NEd E3IDA cXr2POSzeD zYgMT o1RB61gDby Pj4KZ Z1pb2BrXnH 1IDAg a3HbAxk1T1 RbMTc dTNJQX4zEH iAzNi AzMjkgbnVs bF0+P gplbmRvYmo KMzYg MCBvYmoKPD wvRFs xNyAwIFIvW FlaID B2HMR5TGRm dWxsX T4+CmVuZG9 iagoz AgWhSJ6kwh o8PC9 HNdS5KYXzD i9YWV ogMzYgMzQ2 IG51b OkuPq0BRW3 kb2Jq VwA4LCEiq5 JqCjw 5T5WrWXvkK CBSL1 hZWiAzNiAz NTggb nVsbF0+Pgp lbmRv YmoKMzkgMC BvYmo KPDwvRFsxN yAwIF IvWFlaIDM2 IDYwN yBudWxsXT4 +CmVu OV8xwag9GQ AwIG9 diqi8IU1QI zIzID NeGk3OVQhx MzYgN tp7SH84xPa dPj4K IZ5hz0UhXw QxIDA he9QpRwn2F 0RbMT giKBNWY9xT WiAzN iAzNTggbnV sbF0+ PgplbmRvYm oKNDI gMCBvYmoKP DwvRF syMyAwIFIv WFlaI VX5LZYoCPN udWxs XT4+CmVuZG 9iago 5GaHuOE6rf go8PC 6ZEaF2BPCt Ui9YW VogMzYgNTc 5IG51 iAmbHu8ZXR 5kb2J aUgS0GZPik 2JqCj u9P7UjOwPs MCBSL 1hZWiAzNiA 1MTQg bnVsbF0+Pg plbmR vYmoKNDUgM CBvYm oKPDwvRFsx NyAwI FIvWFlaIDQ zIDI5 MSBudWxsXT 4+CmV gGE8gfxq3G iAwIG 9gyur1XU4Z WzE3I ZEdSr7FHZz gMzYg UsC4FR12pX xdPj4 QGT5dj6KkH jQ3ID Lsy0TzJtx2 L0RbM LauENARJ0k ZWiAz CoB4YWIbkq VsbF0 +PgplbmRvY moKND ggMCBvYmoK PDwvR FsxNyAwIFI vWFla GWTiHBD3WS BudWx sXT4+CmVuZ G9iag t4ZZScEW2v ago8P A2HFsZ9AUZ gUi9Y WVogMzYgMz U4IG5 5wUwpIr5OQ W5kb2 JqCjUwIDAg b2JqC ye0Z3KkIWi gMCBS I8vWCrKeAo AzMjk gbnVsbF0+P gplbm RvYmoKNTEg MCBvY moKPDwvRFs xNyAw IFIvWFlaID M2IDM 1OCBudWxsX T4+Cm LeIT1qpqu6 MiAwI R3yfzm2LR9 EWzE3 YTKwZp5GMB ogMzY zJeJ7YR60i GxdPj 6GCK5zq7Iw CjUzI YJoh8EyKzh 8L0Rb MTcgMCBSL1 hZWiA sQgM4NQGqh nVsbF 0+PgplbmRv YmoKN TQgMCBvYmo KPDwv RFsxNyAwIF IvWFl hQGK2DST0B CBudW xsXT4+CmVu ZG9ia cy2OOSzMZ3 iago8 ZJ1TRuE0WY AgUi9 YWVogMzYgN TEwIG 00oSipKs1P ZW5kb 4LmRyG4UAS gb2Jq Gof2G6YmDV cgMCB PZ9lYTiGdL iA2MT AgbnVsbF0+ Pgplb mRvYmoKNTc gMCBv YmoKPDwvRF syMyA wIFIvWFlaI DM2ID UzNSBudWxs XT4+C eCyYF9pjzf 1OCAw MB7hezr7HX 9EWzE 0CQDoTm1SK VogMz IrHmLpLB06 bGxdP v3HZI7ba4H qCjU5 NGGgp0AuKh w8L0R bMTcgMCBSL 1hZWi P7BsL4BoCb bnVsb F0+PgplbmR vYmoK NjAgMCBvYm oKPDw vRFsxNyAwI FIvWF ulGJU2OKX5 NiBud WxsXT4+CmV uZG9i epg2BMFwFJ 9iago 4DM7ZFkI9E DAgUi 9YWVogMzYg Mzg1I Y47mZkbXv9 KZW5k h0EtIhVzSI Agb2J aWgg0I5AdJ TcgMC JOQ0wPNaJl NiAzN TggbnVsbF0 +Pgpl bmRvYmoKNj MgMCB vYmoKPDwvR FsyMy AwIFIvWFla IDM2I DUxNCBudWx sXT4+ HiPcHG0phz o2NCA gRF1ygzx5T C9EWz L0BFTrJx1H WVogM bXkXLD7TW5 1bGxd Xh3QAD5ms4 JqCjY 1GLJgr0MgQ jw8L0 RbMjMgMCBS L1hZW nXuIwB3PuN gbnVs bF0+Pgplbm RvYmo KNjYgMCBvY moKPD wvRFsxNyAw IFIvW XwcAPV2VSF yNCBu dWxsXT4+Cm VuZG9 uclj7ZbIlH G9iag o1QZ4PWaD8 IDAgU j1PCGpdMdA gNTUy CG24sHfoKd 4KZW5 cv3JyLhY9O DAgb2 MoGcv7F1Mr MjMgM ULTO0nYPsG zNiA1 MjUgbnVsbF 0+Pgp lbmRvYmoKN jkgMC BvYmoKPDwv RFsyM yAwIFIvWFl aIDM2 IDUzNSBudW xsXT4 +FcZmKJ8nn go3MC OkPC8fysk2 PC9EW sP6HNRlGd6 YWVog MzYgNjEwIG 51bGx jTh2AIM0ul 2JqCj ccHLKze8Pl Cjw8L 0RbMTcgMCB SL1hZ VjGlJlI8YM ggbnV sbF0+Pgplb mRvYm oKNzIgMCBv YmoKP DwvRFsxNyA wIFIv NArbFBY5MD YxMCB udWxsXT4+C mVuZG 5bujj4JbSr IG9ia zr0KF3OXfQ 3IDAg Af5KCCjuBz YgMzU 5HH94wFkrD j4KZW 1yz4NjEkw0 IDAgb 6NzHvj3T8L bMTcg RORGI3oINd AzNiA zNTggbnVsb F0+Pg plbmRvYmoK NzUgM CBvYmoKPDw vRFsx NyAwIFIvWF laIDM 2IDUxMCBud WxsXT 4+QkNhKN5q ago3N jUbIE7sisk 8PC9E WzIzIDAgUi 9YWVo gMzYgNjgwI G51bG iwTy0VQJ9z b2JqC yu1AVXcp2F qCjw8 R7AxNFwrSN BSL1h DFkW5WfO1P DEgbn VsbF0+Pgpl bmRvY moKNzggMCB vYmoK PDwvRFsyMy AwIFI bGVoeKXW6N DUzNS BudWxsXT4+ CmVuZ S9jufp5VNH wIG9i tjc1EP6XHx IzIDA oTm1KODeyE zYgNT Y1KK72gJlf Pj4KZ X7gl7FkKrc wIDAg r5ZpBox9U0 RbMTc xHWCGH0zFN iAzNi F3CIUagcEy bF0+P gplbmRvYmo KODEg MCBvYmoKPD wvRFs xNyAwIFIvW FlaID E9MHTfKWVb dWxsX T4+CmVuZG9 iago4 CrVaAN7boa o8PC9 DUiG1AMZjG i9YWV ogMzYgNTEw IG51b ZlqKq1FVP2 kb2Jq CjgzIDAgb2 JqCjw 5Z0VwBFsuV CBSL1 hZWiAzNiA2 MTAgb nVsbF0+Pgp lbmRv YmoKODQgMC BvYmo KPDwvRFsxN yAwIF IvWFlaIDM2 IDIyN CBudWxsXT4 +CmVu DM3fkjo1CV AwIG9 ctwk0IY4KO zE3ID ZwVb2GTNhh MzYgN XTmMA84yGe dPj4K EZ0no0GqEg g2IDA qx7NoStj9M 0RbMT ifHCULC3lV WiAzN iAzNDYgbnV sbF0+ PgplbmRvYm oKODc gMCBvYmoKP DwvRF sxNyAwIFIv WFlaI UH6KFO6VHU udWxs XT4+CmVuZG 9iago cPQXeOE4fq go8PC 4TLX3pz5lx XzMwZ TX6TWB4WII iY2Qt RMQsQg0vMw Q3LWV nQnFwFpL0E zNjZC kgMjkgMCBS KF81N bAvXNP8Du5 xMTdm LTRlYWUtYT FhMS0 zDed2RBvtX zZmZj EpIDMwIDAg UihfN bH0GHE6YuH tMzFj OI16DMOlWT hlMGM bRNN3D2VnB mE5MT N5VNNaJQUu IFIoX jW9SMs1GZQ lLTZh OTYtNDVhOC 05YzB bDQruGkK6Z jM5ZT UyMikgMzIg MCBSK K87JXMnYRY 1Yi1k NDViLTRiOG EtOTQ gCP4hBFF9B zVmND dkZjEpIDMz IDAgU yqcMgL5BJE wYzIt DCQdFo06Xm A4LWI 4OTAtNWJmZ GQxYj liYTEzKSAz NCAwI FIoXzcxOGQ xZjQy SHO2J2JsEW FjNy1 kJKC1MRQ3C GM0MD R1DRQnKcit MzUgM ADQGH71EDM jMmNj Nu55SECaJX RiMDk iAdN3QA0nZ TUyNG V5I1J0TjIs IDM2I DAgUihfMWN lNDkw YzgtMjZkNy 00MjV xQIh1FDUtY WFlZW L0WUp6DIPt KSAzN yAwIFIoXzF kYTI2 YmUzLTBmMz ktNDk 4Mb93XXI7P TQ2OD onMga3ARRa NSkgM zggMCBSKF8 xNTk1 F4WeVh9fKg RkLTQ 3NDEtYWRhY S0yNz SoTxv4I4F1 Y2YpI RM0MXAdJgn fNjU5 E7T0XdSgWA MzMS0 0NDYyLTlmM WUtMT ZlMTdmYjYw ODI3K HB4SXPdAPO oXzc3 YWEzNDMwLW UyZDI oHWOkRj5rL 2Y4LT djZThkYmUz MWRhM ykgNDEgMCB SKF8z MjdCNjkxRS 1BNTU 4LTQyRDctQ jlFNS 6OKKDdWpK7 NDA2M DIpIDQyIDA gUihf JAr4XMZ5GW ItNjk xNW12GuWnJ ThjZD EtYTVmYWMx OWZhN 0WdCAR8AtT wIFIo QuI4SJWxFU gzLTJ kMjMtNDczM i1hOT x1TUSoUHA1 ODMwY pD0IUxqDXP gMCBS SY6vQMRfVZ gwYi0 4YWFkLTRkO WUtYj O6RO96SgRy OTJiN zU3MATjGUU 1IDAg UihfZGNmYz MyNjI bLaMkAD82X 2YyLW S6OFUlFoH5 N2ZmO TEyYzgyKSA 0NiAw IFIoXzVjYz kwNWV pOLT8TiflN GI2MC 13DCXyUMY9 NjNlN GNmMTAwNik gNDcg DFUKZG7sYz FhMDF sTW7qHWH8O TQwM2 XfDpU5Hg7a NWM0M TcxYzAyMGI pIDQ4 IDAgUihfZm FhZTk wMWQtMzQxN y00ND MxLTgyODQt MjM2M zZmOWJkYmY 5KSA0 OSAwIFIoX2 NkYTU 8Z2NiRQF4C TAtNG PoWF03FPP5 LTkzM FZ3PEC6IAY jNykg NTAgMCBSKF 9kNzI 5CSjsCa13N TM2LT QzYjctOWUx My0yO Ay8DAXkWyD zZGUp IDUxIDAgUi hfOWI 7VLGrH7DmQ Tg3Zi 95OEC9ZMYk ODgtN vr2QIK1Djw lMmUz JMN0FyUzXK IoXzk eIHL2MaXlI TgzMj LeSRCjMh2a NWYwL WYyMmUwMzZ hY2Q4 MSkgNTMgMC BSKF8 2QoI1VMK2Y C03MW I8LIDgJZBx YjdkN Z69YECaIrV zZmYx YoSnEUX5IL AgUih gOozbPRB8R DgtND owWA18P5T7 LTlmM GMtYzgxZDQ 0MjY1 WWl3IXP9ZF AwIFI oXzQzMWYyM jA5LW C3VktbRZxo My04N DFmLTIzYzA 2ZGY3 MzljOSkgNT YgMCB ECG2EVnEvO TQxMy 01ODgzLTRD MDMtO EB8BO9RYIp 1MkM3 RTAxMjQpID U3IDA gUihfMGFjO DI0NW YfTJI6VO96 ZjVkL WJlYmEtYWN jNmQy COK0JtQaSJ A1OCA eYKNkP1JmN 2U0Ym U9YNQiV0Vj NDI3Z E45JZBdBZt lMmM3 IGogOAS2Fv kgNTk gDUIPFT5wZ zFiMG Z9HP9jLrLw LTQ4Y zgtYmViNy0 xZmM5 IwRuPNA5Xg YpIDY wIDAgUihfN mNhYm EwMDEtMjUz Yi00M WMyLWFlOWI tOGEw ZLO5IQW2KM RiKSA 2MSAwIFIoX 2FhMT F0CsKwQMWd NDQtN ZPaUN45JFG jLWQx WeLtMgJ8FE k2ZCk gNjIgMCBSK F82Nj PvBPRfYn7w MzExL TQwZTYtODU zMS03 OGVlNDViNz FkMTg pIDYzIDAgU ihfYj XlLRZ9AADi MDJkY h94ZUAqGDS 0ZTgt S8RqCMDiQE dlMmN wXYA3URDlU FIoXz y4OQAnYzQ8 LTQ3Z GQtNDQwZi1 iZjEw LVZjWdF9Oa dhZTQ yMCkgNjUgM CBSKF 5iATQlNwM3 Yy0yM mNmLTRmODM tODAx Qw3iXlRsCp Q2Njd rOIumLDK8Z DAgUi umWHR8ZJE5 YTUtM SW9Km89HkO 0LWJm ZjctNWMxYW NhODV qMdWsJYS7F yAwIF XtQ0LmOagp MjdkL TliMTYtNGJ hNC05 MmIyLTVkZD E0NmJ mMzgyYSkgN jggMC AYBS5uWoRb ODRlZ Z8rMyAxPYL zNGEt BNO5Iz8zMW E1OWZ jMGVmYmYpI DY5ID AgUihfNWRj NDYwZ EPiVbB3GZ6 0YTE0 LTgwOWUtYj k4ZjM 7AVv5I6NjY SA3MC AwIFIoTUtN Ry0gR DtvZ5lqqsk lIFN1 iB8oxbevYL cxIDA gUihfNzhjN GE0Yj FsLdXuTF42 NTQ3L ThhZGYtOWU wYTI5 LHw3RDV5XT A3MiA jIEVhC4G9R zNhYT TtIPU2A8Uu NDhlZ L90PuCqIKm 5YzA4 ZjNkNzQzYy kgNzM pYIKJQX48J Tk2ZW Z3Rx99IPV5 LTQzN WMtOGUxMC0 xMjQ1 OYP1ZIQmCT IpIDc 0IDAgUihfY TQ3Zj YxMDctODcw Ny00N KZwTMz6TGd tZDFh SUToSkA6VL k5KSA 3NSAwIFIoX 2UzZm JhNzhhLWRl MzMtN XDlRq7oKad hLWQw LKE7GfG1XI JiNCk gNzYgMCBSK F81Nz W6TkYbIx27 ODk4L GI2NDWsPdy 5My03 VURvL4N8Rb U2NTc hRBp7XTMrF ihfM2 FhOTFjNGQt YzllZ P21AiAxZQU 3NjUt NzIyNGZlOD A1ZGE zJBN8MLNkC FIoXz k8IBA4HMIn LTk5Q kItNDVDNS0 4MTk4 HLeQZpR9NZ IwOTU xNSkgNzkgM CBSKF 23W8TzLQOe My1mM 2G2XMCmIML tODM3 Zt1qRjB7In U2MWU kG5CnIMecW DAgUi hfYzExZjk0 YmYtM afnBh49NHL jLWFi ZXTvB8I0QW Q1ZjQ 8WSwjCLH0O SAwIF IbA1RiU5Qb OWMyL SI7RtUsVCW jYS04 YzdhLWRiMm M3YWV iMjgxMSkgO DIgMC LYKK41OMK6 NzA3O T5fMulmYUQ 0ZmQt MQl7JK6zRI E3MWQ 2ZhC3SWOoY DgzID AgUihfYjc0 MTk3Z TctYmUxNy0 0ZWYy LWFmZWItMG ZjZDM 0ZjRlNTFjK SA4NC BwBXRcP3A7 MzZkY mIzLWNkOWI tNDhl FN41SCbsXA ZkOWY 5NTdiNmNkM SkgOD EeNEWXXE3b NjM2N PZxOW95DYR 4LTRm BwKsNMN8Df 1kNTc yNWIyMzYzN TkpID m4KRVyXstm ZTI0M PB3Z7EnLMU zNC00 OTdjLWIzZm QtYTI hQEAfK8DqR jcxKS P0VbXnCQBh Pj4KZ R6mj8DtThF yIDAg c5DzDot3I8 Rlc3Q kCJvNIk4kR GlzY2 hhcmdlIFN1 bW1hc guqP7PkkYx lPGZl EpBbNPS4AM A2OTA wNzMwMDYzM DA2OD AwNjEwMDcy MDA2N zAwNjUwMDI wMDA1 MzAwNzUwMD ZkMDA 2ZDAwNjEwM DcyMD Q6MP6aKPRh ZW50I DggMCBSPj4 KZW5k x5UqQtp7MX Agb2J iIsi5F81eI ERhdG UoRDoyMDIw MDQyM jEwMzUxMy0 wNCcw GRkbQ2GaSD F0aW9 bFBM5IHcHG jIwMj AwNDIyMTAz NTEzK g95YiReXsn vUHJv ZHVjZXIoSW JleCB TCJVjT2PqS XRvci Q6RmamWU7b NS84N ZC5GMzWZSR BXVAv KlfaaN1upF ZpZWQ gdXNpbmcga VRleH YrKg2fFucr YnkgM VQzWFQpPj4 KZW5k u0ZpYkxdHE YKMCA 4OQowMDAwM DAwMD AhATQ4MYS0 IGYgC jAwMDAwMDA wMTUg MDAwMDAgbi AKMDA wMDAwMDEwM yAwMD AwMCBuIAow MDAwM BHbINi9CZL wMDAw UO8eVlThXF AwMDA zMTQgMDAwM DAgbi AKMDAwMDAw MDM5M CAwMDAwMCB uIAow MDAwMDAwNT I2IDA gIVIuYG6qB jAwMD AwMTkzOTAg MDAwM DAgbiAKMDA wMDAw MDcwNCAwMD AwMCB uIAowMDAwM DAwNj QwIDAwMDAw IG4gC jAwMDAwMTk zNjkg MDAwMDAgbi AKMDA zOHEvLAB1H SAwMD AwMCBuIAow MDAwM VV9GLL3QXS wMDAw QC3mHkYdMB AwMDA 3NTcgMDAwM DAgbi AKMDAwMDAw MDc5M iAwMDAwMCB uIAow MDAwMDAzND YxIDA rNUOvJD5fU jAwMD XxHQX4SHYy MDAwM DAgbiAKMDA wMDAw Ack9XmKhIT AwMCB uIAowMDAwM DA4Nj UxIDAwMDAw IG4gC jAwMDAwMTI zMzIg MDAwMDAgbi AKMDA wMDAxMjQzN iAwMD AwMCBuIAow MDAwM DKeLkP3NZX wMDAw TO9eOaGgDA AwMDg zNjIgMDAwM DAgbi AKMDAwMDAx NzAyN iAwMDAwMCB uIAow MDAwMDEyNT M1IDA gYOXcYO2pQ jAwMD KoYDV3YIxr MDAwM DAgbiAKMDA wMDAx KbU8TiQoHN AwMCB uIAowMDAwM DE3Mz YzIDAwMDAw IG4gC jAwMDAwMjI xOTYg MDAwMDAgbi AKMDA wMDAxOTQyM yAwMD AwMCBuIAow MDAwM IE4LGihNMX wMDAw QK8nOkFoHO AwMTk 1MTcgMDAwM DAgbi AKMDAwMDAx OTU2N CAwMDAwMCB uIAow ETXaPYK1Ye ExIDA rBPReFT7uL jAwMD KhIPj2HJlf MDAwM DAgbiAKMDA wMDAx OTcwNSAwMD AwMCB uIAowMDAwM DE5Nz UyIDAwMDAw IG4gC jAwMDAwMTk 3OTkg MDAwMDAgbi AKMDA pSCMqIYi6Q iAwMD AwMCBuIAow MDAwM WM0DAsrGMK wMDAw MJ1yGfOmEI AwMTk 5NDAgMDAwM DAgbi AKMDAwMDAx OTk4N yAwMDAwMCB uIAow MDAwMDIwMD M0IDA aELKiBF3nU jAwMD AwMjAwODEg MDAwM DAgbiAKMDA wMDAy MDEyOCAwMD AwMCB uIAowMDAwM DIwMT j2ZWRfDQDp IG4gC jAwMDAwMjA yMjIg MDAwMDAgbi AKMDA wPMUyQXR1A SAwMD AwMCBuIAow MDAwM CBeNuZ8HYF wMDAw TJ9jHgQfJU AwMjA zNjMgMDAwM DAgbi AKMDAwMDAy MDQxM CAwMDAwMCB uIAow MDAwMDIwND U3IDA kIBMnNA2tM jAwMD BmEiU0TWSd MDAwM DAgbiAKMDA wMDAy WJZ0VJZiUW AwMCB uIAowMDAwM DIwNT a9WNKsTOPy IG4gC jAwMDAwMjA 2NDUg MDAwMDAgbi AKMDA aIAVfVMK4C iAwMD AwMCBuIAow MDAwM CDnJlT7OKI wMDAw CH1vLgPxYE AwMjA 3ODYgMDAwM DAgbi AKMDAwMDAy MDgzM yAwMDAwMCB uIAow MDAwMDIwOD gwIDA hJEThIN2bH jAwMD UtVxH5Ixdt MDAwM DAgbiAKMDA wMDAy STs1KWHvOX AwMCB uIAowMDAwM DIxMD IxIDAwMDAw IG4gC jAwMDAwMjE wNjgg MDAwMDAgbi AKMDA wMDAyMTExN SAwMD AwMCBuIAow MDAwM DIxMTYyIDA wMDAw TW9rJtOpRX AwMjE yMDkgMDAwM DAgbi AKMDAwMDAy MTI1N iAwMDAwMCB uIAow MDAwMDIxMz AzIDA vSLKuCG3xP jAwMD AwMjEzNTAg MDAwM DAgbiAKMDA wMDAy QDD1YdKxYV AwMCB uIAowMDAwM DIxND C6FEHrVXDg IG4gC jAwMDAwMjE 0OTEg MDAwMDAgbi AKMDA wMDAyMTUzO CAwMD AwMCBuIAow MDAwM IGyNMt0PWB wMDAw HB3xXiFtUA AwMjE 2MzIgMDAwM DAgbi AKMDAwMDAy MTY3O SAwMDAwMCB uIAow MDAwMDIxNz I2IDA hTKEsPQ2jI jAwMD VzKqI5BvKn MDAwM DAgbiAKMDA wMDAy MTgyMCAwMD AwMCB uIAowMDAwM DIxOD E9OZTrUUSk IG4gC jAwMDAwMjE 5MTQg MDAwMDAgbi AKMDA dLLSzTVy0H SAwMD AwMCBuIAow MDAwM YVsIXK0VCF wMDAw TT9yNaCpWA AwMjI wNTUgMDAwM DAgbi AKMDAwMDAy MjEwM iAwMDAwMCB uIAow MDAwMDIyMT Q5IDA zOBOoRK5qF jAwMD AwMjUwNjkg MDAwM DAgbiAKdHJ haWxl pcf3YI4Dvn ZvIDg 8LFRaTk2EM CBbPD A4OLSeFTNp NzU3N FMkJdLvS7D 3MTA2 YjBkMzhjYj cyPjx kZmQwOWYyZ jZiNz YxYjQwOTA1 NTdjY 2VhNWYyMzM wND5d U4Pxe3KmTm AwIFI eI6o6DCQ1F T4+Cn A4WVN1cZNl ZgoyN TV2XWbmLKT PRgo= ID Date Data Source [id number] 08/12/2019 12:12:00 PM EDT [facility] Name Value Range Interpretation Code Description Data Supporting Source(s) Document(s ) Physician No [id number] [facility]9MKMSAwI G9iag [facility]5K 5cGUv Center Xm6hdJ6VDJ NlRm9 ugQ0PPKf5W XRpY2 RvPB0ip3Ri bmcvV 4mvWB1rsLY uY29k wG7cHj7UZB 5kb2J qCjIgMCBvY moKPD wvRmlsdGVy L0ZsY SJeUCLwt1O lL0xl kqk2iWDoUL 4+c3R yZWFtCnicK +QCAA NaYHlZCN7k c3RyZ WFtCmVuZG9 iagoz CPAxs3HtSg w8L0Z wvVXezz1Te GF0ZU MzH65lTQ9Z ZW5nd GggNjk+PnN 0cmVh hTt7wOXB6V rk0o/ INFAwNFAIS eNyCu EyVDAAQkMF I1MLP XNTBQtDPQs jhZBc Ge8OtIMTqB h+Rad qSvqIf7qVN yAXAL NaJo1QBM1t c3RyZ WFtCmVuZG9 iago0 VGLir3UhYn w8L1B lZ5NEq8BzU 1VzZU 5vbmUvTmFt ZXMgN SAwIFIvVHl wZS9D LMMezX7fS3 91dGx pbmVzIDYgM CBSL1 DfJ1XsJOzs MCBSL 1ZpZXdlclB yZWZl mkGrN0ZfHV ggMCB EFj1ETG5yw 2JqCj cgMCBvYmoK PDwvS 4stz2x0GBR gUl0v BEjhAR2HBB dlcy9 Op8WxnPCmR 0lUWF HdXk5qHtlc Pj4KZ J0eo4MuJzO gMCBv YmoKPDwvQ2 91bnQ tLW1OlWVzw CAxMC AwIFIvTGFz dCAxM CAwIFI+Pgp lbmRv YmoKMTEgMC BvYmo WJi5CN8XIK XNlZC AxMiAwIFJd CmVuZ Y4cgcnePxE wIG9i szt2DY3FoS x0ZXI vRmxhdGVEZ WNvZG DpXFHuW9Fh IDI1O TYvTiAzPj5 zdHJl RZ9WdLqkoy dUU9k Wh8+9N71Qk hCKlN VjnPCBWX67 SJEuK jEJEErAkAA iNkRU cERRkaYIMi jggKN DkbEiioUBU bHrBB iT3OGbHMgA SWStG d+8ee/Nm98 f935r d63Y2Glgkw a6AJD 8gwXCTFgJg AyhWB Os78DOhIob YAcBD BZNL8hJ2IM zs0IW +WXVgGG69G xsmRP 3S390WaW9+ yrTP4 zBAP+flLlZ IjEAU JiM5/L42Vw ZF8k4 PVecJbdPyZ i2NE3 OMErOIlmCM laTc/ IiC8l2tFXY OfMyh JvYs5KW1vN w5Nwn 6973Ei1AzI AZF+c I+LkyviZjg 3RJhk DGb+SxGXxO NgAok pni1jCQBCi tY5Io XpLh43yY3Y jJX/D YB8nMvmNDN 8XOzF ouEiSniBkm XFOGj ZMTi+HPz03 ni8XM FK18dFRuJi iZGVk y8JBVHu/8W RR5bR myIjvYODk4 MG0tb r1c1A9r/Ju S93aW XoR/7hlEH/ jD9ld +aL5KnTZmf dn6h2 1yKNOg6rRV u/2Hz WAvAIqyvnU OfXEe unxeUsTiLG crq9z bUEiEu3bxO +jv+p 9Kn7YvlF9T vt3v5 CB638X4asM xQ143 lbS0unWDfS 7icPk M5p+H+B8H/ nUeFh J6LM2JI2PY RMumT CBMlrVbyBO IBZlC wvS4o9e7J6 P+pNm 5lona+BHQl lgCpS PrGW1cRTji ESAJe 2Yb9I92T7V [place]/nN t4UJrY14o2 L+fVe 8SF7RIaF/j mNHRD A9EqSJ9Oj0 WgI0I ABFQAPqQBv oAxPA BLbAEbgAD+ ADAkE oiARxYDHgg hSQAU QgFxSAtaAY lIKtY CeoBnWgETS DNnAY pVMo1FQ2Ef 6By2A Y8ASZWQ5ij CnwCs xAEISFyBAV Uod0I EPIHLKFWJA b5AMF QxFQHJQIJU NCSAI VQOugUqgcq obqoW boW+godBq6 AA1Dt 7MBjVU1SYu HIzAJ psFasBFsBb NgTzg IjoQXwcnwM jgfLo K9nQCxX4cC 7oRPw 6onWEjNJ1M nEYAQ ETqiizARFs JGQpF 4JAkRIauQE qQCaU PpyP9eR5aC SJGny FsUBkVFMVB MlAvK JfIN1zLJtL ahNqO qUQdQnag+1 FXUKG dC7LQQRixo zdHO6 GX7FNwPvOx uRleg o5Xq3GJyLg Q4+hU Hc8WoqUNZR H9MHC YVswKzGbMb 0445h RnGjGGmsVi sOtYc 64oNxXKwYm wxtgp 9AHvMyxU4q n2DI+ K0wDC5D3a8 Togrx FXgWnAncFd wE7gZ vBLeEO+MD8 Xz8Mv xZfhGfA9+C D+Suzy OdS6jXvzHE QiphL zMU0LX1L8u LeEEk EvWITsRwoo C4hlh CINQ9Opwaq iVRSG YkNimBJCFt Ie0nn BWzPe2xh4q GZA9y LQqW2yDpOy 8h3ye /UaAqWCoEK PAUVi vUKHQqXFF4 pohXN VZ5HGglkZ7 YoXhE cUjxqRJeyU iJrcR KUlEYt8BM5 YbStD IM6DZ1TUzT ebNyi /RX5WaYYNF I4kPh UYoo+yhnKG NUhKp YCLS96SUAG upZ6j gNQzOmBdBS aaW0b 2iDtCkVioq dSrRK nkqNynEVKR 2hG9E T6Ll5Jsro+ nX6O1 BdGZ0Yocmt 1TbVK 9ch7jsxcvp x1UrU 2iOL0D7hW1 R91NP Ie4r3xc/TQ GmYaY Dh7Qpp9Irh 8XQOb E1XOV5irbe H59zW xZDLHMT6N3 ju0xz QxLqD9oFKp tKq0j ov5YFnew3z naq9Q /mQ4eJJYkr NR6Cz Q+ekzmOGCs OTkc6 sYZPkzpM5n f11Jb h8cqK5S3mB elF6h Umdhve2Gpf s/ST9 Hfq9+lMGOg YhBgU KbJi5EtYWA MMUw1 2G/YavjYyN Yow2G HUZPTJWMw4 wzjdu Zm3pTaDeG8 lm0mB yzRRjyjJNM 91tet vFXtC2FhEy MRsyh 30oiGWge22 HLdAW ThZCiwaLG0 wS05O Nx0umlazIS YMtCy 58HB2FFDsY W22z6 zy3pE4dhW2 daH3H lbCIcTBx17 Pzq62 NHvd7yihtZ PJc37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 treatment with medications that affect renal tubular creatinine secretion.GFR Categor ies in Chronic Kidney Disease (CKD)GFR Category: GFR (mL/min/1.73 m2): Inte rpretation: G1 90 or greater Normal or high*G2 60-89 Mild decrease* G3a 45-59 Mild to moderate [id number] 30-44 Moderate to s evere decreaseG4 15-29 Severe decreaseG5 14 or less Kidney fa ilure Procedure Social History Code Duration Value Status Description Data Source(s ) Smoking 08/03/2019 Never smoked completed Never smoked No [facility] - 12:26:18 PM EDT tobacco tobacco (finding) [facility] (finding) Center Smoking 08/03/2019 Never smoked completed Never smoked No [facility] - 12:26:18 PM EDT tobacco tobacco (finding) [facility] (finding) Center Smoking 08/03/2019 Never smoked completed Never smoked No [facility] - 12:26:18 PM EDT tobacco tobacco (finding) [facility] (finding) [facility] Center Smoking 08/03/2019 Never smoked completed Never smoked No [facility] - 12:26:18 PM EDT tobacco tobacco (finding) [facility] (finding) [facility] Center Vital Signs ID Date Data Source UNK Name Value Range Interpretation Code Description Data Source(s) Diastolic blood 82 mm[Hg] 60-90 mmHg Normal (applies to 82 mm[Hg] N [employer] pressure non-numeric results) - [facility] Systolic blood 124 mm[Hg] 90-130 mmHg Normal (applies to 124 mm[Hg] N [employer] pressure non-numeric results) - [facility] Oxygen therapy No [facility] al[facility] [Minimum Data - [place] Set] Hospital Center Oxygen saturation 100 % 94-100 % Normal (applies to 100 % [employer] in Blood non-numeric results) - [facility] Postductal by Hospital Pulse oximetry Center Diastolic blood 62 mm[Hg] 60-90 mmHg Normal (applies to 62 mm[Hg] N [facility] pressure non-numeric results) - [facility] Systolic blood 116 mm[Hg] 90-130 mmHg Normal (applies to 116 mm[Hg] N [facility] pressure non-numeric results) - [facility] Respiratory rate 18 br/min 14-20 Normal (applies to 18 br/min [facility] br/min non-numeric results) - [facility] Heart rate 64 bpm 60-100 bpm Normal (applies to 64 bpm [facility] e Health non-numeric results) - [facility] Oral temperature 97.1 [degF] 96.4-99.1 Normal (applies to 97.1 [degF ] [facility] DegF non-numeric results) - [facility] Oxygen therapy [facility] al[facility] [Minimum Data - [place] Set] Hospital Center Oxygen saturation 100 % 94-100 % Normal (applies to 100 % [facility] in Blood non-numeric results) - [facility] Postductal by [facility] Pulse oximetry [place] Diastolic blood 71 mm[Hg] 60-90 mmHg Normal (applies to 71 mm[Hg] [facility] pressure non-numeric results) - [facility] Systolic blood 109 mm[Hg] 90-130 mmHg Normal (applies to 109 mm[Hg] [facility] pressure non-numeric results) - [facility] Respiratory rate 18 br/min 14-20 Normal (applies to 18 br/min [facility] br/min non-numeric results) - [facility] Heart rate 67 bpm 60-100 bpm Normal (applies to 67 bpm [facility] non-numeric results) - [facility] Oral temperature 97.5 [degF] 96.4-99.1 Normal (applies to 97.5 [degF ] [facility] DegF non-numeric results) - [facility] Respiratory rate 18 br/min 14-20 Normal (applies to 18 br/min [facility] br/min non-numeric results) - [facility] Oral temperature 97.7 [degF] 96.4-99.1 Normal (applies to 97.7 [degF ] [facility] DegF non-numeric results) - [facility] Oxygen saturation 97 % 94-100 % Normal (applies to 97 % [facility] in Blood non-numeric results) - [facility] Postductal by [place] Pulse oximetry [facility] nt Heart rate 62 bpm 60-100 bpm Normal (applies to 62 bpm [facility] non-numeric results) - [facility] Diastolic blood 74 mm[Hg] 60-90 mmHg Normal (applies to 74 mm[Hg] [facility] pressure non-numeric results) - [facility] Systolic blood 110 mm[Hg] 90-130 mmHg Normal (applies to 110 mm[Hg] [facility] pressure non-numeric results) - [facility] Oxygen therapy [facility] [Minimum Data - [place] [facility] Oral temperature 98.1 [degF] 96.4-99.1 Normal (applies to 98.1 [degF ] [facility] DegF non-numeric results) - [facility] Oxygen saturation 95 % 94-100 % Normal (applies to 95 % [facility] in Blood non-numeric results) - [facility] [place] Pulse oximetry Medical nter Heart rate 75 bpm 60-100 bpm Normal (applies to 75 bpm [facility] non-numeric results) - [facility] Mean blood 80 mm[Hg] 80 mm[Hg] [facility] pressure by - [facility] Diastolic blood 67 mm[Hg] 60-90 mmHg Normal (applies to 67 mm[Hg] [facility] pressure non-numeric results) - [facility] Systolic blood 106 mm[Hg] 90-130 mmHg Normal (applies to 106 mm[Hg] [facility] pressure non-numeric results) - [facility] Oxygen therapy [facility] alth [Minimum Data - [place] Set] [facility] Respiratory rate 18 br/min 14-20 Normal (applies to 18 br/min [facility] br/min non-numeric results) - [facility] Oral temperature 98.4 [degF] 96.4-99.1 Normal (applies to 98.4 [degF ] [facility] DegF non-numeric results) - [facility] Oxygen saturation 99 % 94-100 % Normal (applies to 99 % [facility] in Blood non-numeric results) - [facility] Postductal by [place] Pulse oximetry Medical nter Heart rate 79 bpm 60-100 bpm Normal (applies to 79 bpm [facility] non-numeric results) - [facility] Mean blood 92 mm[Hg] 92 mm[Hg] [facility] pressure by - [facility] Diastolic blood 77 mm[Hg] 60-90 mmHg Normal (applies to 77 mm[Hg] [facility] pressure non-numeric results) - [facility] Systolic blood 122 mm[Hg] 90-130 mmHg Normal (applies to 122 mm[Hg] [facility] pressure non-numeric results) - [facility] Respiratory rate 16 br/min 14-20 Normal (applies to 16 br/min [facility] br/min non-numeric results) - [facility] Body mass index 17.6 kg/m2 17.6 kg/m2 [facility] ea (BMI) [Ratio] - [facility] Body weight 46.75 kg 46.75 kg [facility] h Measured - [facility] Body height 163 cm 163 cm [facility] h - [facility] Body mass index 17.6 kg/m2 17.6 kg/m2 [facility] ealth (BMI) [Ratio] - [facility] Oxygen therapy [facility] alth [Minimum Data - [facility]] [facility] Patient Treatment Plan of Care Planned Activity Planned Date Details Description Data Source (s) Prazosin 1 MG Oral 08/12/2019 11:09:00 [facility] - Capsule AM [facility] olanzapine 10 mg oral 08/12/2019 11:09:00 [facility] - tablet AM [facility] Lorazepam 2 MG Oral 08/12/2019 11:09:00 [facility] - Tablet AM [facility] hydrOXYzine 08/12/2019 11:09:00 [facility] - AM [facility] Vitamin D3 08/03/2019 10:52:00 [facility] - PM [facility] Vitamin D3 08/03/2019 10:52:00 [facility] MG Oral 08/03/2019 04:21:00 [facility] - Capsule PM [facility] zonisamide 100 MG Oral 08/03/2019 04:21:00 [facility] - Capsule PM EDT [facility] clobazam 20 MG Oral 08/03/2019 04:20:00 [facility] - Tablet PM [facility] clobazam 20 MG Oral 08/03/2019 04:20:00 [facility] lacos[facility] 200 MG Oral 08/03/2019 04:19:00 [facility] - Tablet PM [facility] lacosamide 200 MG Oral 08/03/2019 04:19:00 [facility] - Tablet PM EDT [facility]
[2020-02-09] MEDS ORDERED: KETAMINE HCL 500 MG/10 ML VIAL ONE (07:04)
[2020-02-09] MEDS ORDERED: SUCCINYLCHOLINE CHLORIDE 200 MG/10 ML SYRINGE ONE (07:13)
[2020-02-09] MEDS ORDERED: PROPOFOL 20 ML ONE (07:13)
[2020-02-09 08:25] VITALS: TEMP 97.6
[2020-02-09 08:38] VITALS: BP 118/68; PULSE 71
== END 2020-02-09 08:42 | disposition home or self-care (01) ==
LOC: FECT 06:37
PROVIDERS: ATTEND Psychiatry & Neurology Psychiatry
PROC: GZB4ZZZ Other Electroconvulsive Therapy (ICD-10-PCS; principal; 2020-02-09 08:30)
DX: F32.9 Major depressive disorder, single episode, unspecified (principal)
CPT/HCPCS: 90870; 94760

== ENCOUNTER 2020-02-10 05:48 | Day surgery (SDC) | payer OTHER ==
[2020-01-30 14:31] VITALS: BMI 16.9
--- OUTSIDE RECORDS SUMMARY | 2020-02-10 05:54 | XMS ---
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 reported by [employer] ID Date Data Source [id number] 10/14/2019 12:00:00 AM EDT [facility] Name Value Range Interpretation Code Description Data Migdalia rce(s) Supporting Document(s ) 2018-nCoV [facility] RNA XXX ELIZABETH+probe- Imp This lab was ordered by [facility] and reported by [employer] ID Date Data Source [id number] 08/17/2019 08:19:00 AM EDT [facility] Name Value Range Interpretation Description Data Sup porting Code Source(s) Document(s ) Neut Auto 57.1 % 40.0-70.0 NO [facility] Lymph Auto 29.3 % 22.0-44.0 NO [facility] Meriwether Auto 10.5 % 4.0-11.0 NO [facility] Eos Auto 2.4 % 0.0-8.0 NO [facility] Baso Auto 0.7 % 0.0-3.0 NO [facility] Neut 2.3 1.8-7.7 NO [place] Absolute x10(3)/[facility] Lymph 1.2 1.0-4.8 NO [place] Absolute x10(3)/[facility] Meriwether 0.4 0.2-1.2 NO [place] Absolute x10(3)/[facility] Eos Absolute 0.1 0.0-0.9 NO [place] x10(3)/[facility] Baso 0.0 0.0-0.3 NO [place] Absolute x10(3)/[facility] ID Date Data Source [id number] 08/17/2019 08:19:00 AM EDT [facility] Name Value Range Interpretation Description Data Sup porting Code Source(s) Document(s ) WBC 3.9 4.5-11.0 LO [place] x10(3)/[facility] RBC 3.39 4.00-5.20 LO [place] x10(6)/[facility] Hgb 10.5 12.0-16.0 LO [place] gm/dL [facility] Hct 31.2 % 36.0-46.0 [facility] MCV 92 fL 80-100 [facility] MCH 31.0 pg 26.0-34.0 NO [facility] MCHC 33.8 31.0-37.0 NO [place] gm/dL [facility] RDW 13.3 % 11.5-14.5 [facility] Platelet 222 150-350 NO [place] x10(3)/[facility] MPV 7.8 fL 7.4-10.4 NO [facility] ID Date Data Source [id number] 08/16/2019 08:30:00 AM EDT [facility] Name Value Range Interpretation Description Data Sup porting Code Source(s) Document(s ) Magnesium 2.1 mg/dL 1.6-2.5 [facility] ID Date Data Source [id number] 08/16/2019 08:30:00 AM T [facility] Added by Discern Rule GLB_ADD_GFR_BMP Name Value Range Interpretation Code Description Data Migdalia rce(s) Supporting Document(s ) eGFR-AA >90 >=60 [facility] mL/min/[address] The CKD-EPI equation for non- Breann [...] Mild decrease* G3a 45-59 Mild to moderate bqkhlywiN5c 30-44 Moderate to s evere decreaseG4 15-29 Severe decreaseG5 14 or less Kidney fa ilure eGFR-ELIZABETH >90 mL/min/1.73m2 >=60 [facility] The CKD-EPI equation for non- Breann rican [...] Mild decrease* G3a 45-59 Mild to moderate kggfgwycD1i 30-44 Moderate to s evere decreaseG4 15-29 Severe decreaseG5 14 or less Kidney fa ilure ID Date Data Source [id number] 08/16/2019 08:30:00 AM EDT [facility] Name Value Range Interpretation Description Data Sup porting Code Source(s) Document(s ) Glucose Lvl 97 mg/dL 65-99 NO [facility] BUN 13.0 7.0-21.0 NO [place] mg/dL [facility] Creatinine 0.66 0.40-1.0 NO [place] mg/dL 0 [facility] BUN/Creat 19.7 7.0-29.0 NO [place] Ratio ratio [facility] Sodium Lvl 136 136-146 NO [facility] mmol/L [facility] Potassium Lvl 3.8 3.5-5.1 NO [place] mmol/L [facility] Chloride 104 98-109 NO [place] mmol/L [facility] CO2 23 17-33 NO [place] mmol/L [facility] AGAP 9 5-15 NO [facility] Calcium Lvl 8.3 8.3-10.2 NO [place] mg/dL [facility] ID Date Data Source [id number] 08/15/2019 04:31:00 PM EDT [facility] Name Value Range Interpretation Code Description Data Supporting Source(s) Document(s ) Physician No [id number] [facility]AwI G9iag [place] [id number] [facility] 5B7aFZdX9T 5cGUv [place] Dy1ziF4PAF NlRm9 kwO1XXPt1R XRpY2 VxHB5fn0Sy bmcvV 3unZT5qtCQ uY29k dC9sEd1DZH 5kb2J qCjIgMCBvY moKPD wvRmlsdGVy L0ZsY SPuSALpa6Q lL0xl qxk2fZMmVF 4+c3R yZWFtCnicK +QCAA CrUFhPZD5f c3RyZ WFtCmVuZG9 iagoz POHgn5VmPr w8L0Z clCQrts3Bs GF0ZU QiY24lPB9E ZW5nd GggNjk+PnN 0cmVh hXc1zXQE6Q rk0o/ INFAwNFAIS eNyCu EyVDAAQkMF I1MLP XNTBQtDPQs jhZBc Is2DxTSJhR h+Rad dNefGo7vUN yAXAL EnXn5UPG2b c3RyZ WFtCmVuZG9 iago0 JYChm4BpGi w8L1B fP9AKz7OwK 1VzZU 5vbmUvTmFt ZXMgN SAwIFIvVHl wZS9D LIYglW2qM0 91dGx pbmVzIDYgM CBSL1 DiQ8QsYJrl MCBSL 1ZpZXdlclB yZWZl ubGeX8TfIX ggMCB OLm4WON7qd 2JqCj cgMCBvYmoK PDwvS 6jhd8b9ZZD gUl0v BDadRF4JIS dlcy9 Vr1DreTVdY 0lUWF LoJi8jTjlr Pj4KZ I7lk2FvVtQ gMCBv YmoKPDwvQ2 91bnQ bCO1ZqIWek CAxMC AwIFIvTGFz dCAxM CAwIFI+Pgp lbmRv YmoKMTEgMC BvYmo THi3ZC2OPX XNlZC AxMiAwIFJd CmVuZ T5juwfaRsK wIG9i gsu4ZY3PwC x0ZXI vRmxhdGVEZ WNvZG NkMGNxU5Zk IDI1O TYvTiAzPj5 zdHJl AA2VhAnmwo dUU9k Wh8+9N71Qk hCKlN ZfcYHNBQ89 SJEuK jEJEErAkAA iNkRU cERRkaYIMi jggKN DkbEiioUBU bHrBB uO8TTfOHjL SWStG d+8ee/Nm98 f935r x39O4Uzmvj a6AJD 8gwXCTFgJg AyhWB Bd38WVpLjp YAcBD CXHH8fY4KJ zs0IW +IEJbQF63H xsmRP 6Y704QuQ7+ yrTP4 zBAP+flLlZ IjEAU JiM5/L42Vw ZF8k4 PVecJbdPyZ i2NE3 OMErOIlmCM laTc/ UnJ8j0cWDS OfMyh SbIy6WP6dU w5Nwn 2390Ak5NwJ AZF+c I+LkyviZjg 3RJhk DGb+SxGXxO NgAok wai0wBCSKn tY5Io EfJj43vN0T jJX/D WJ3fWnnXTQ 8XOzF ouEiSniBkm XFOGj ZMTi+HPz03 ni8XM PL08gFYoGh iZGVk g3XBOPt/8W RR5bR myIjvYODk4 MG0tb r5a2O4d/Ju S93aW XoR/7hlEH/ jD9ld +vA6HgEDez dn6h2 5sKZMj6aZG u/2Hz WAvAIqyvnU OfXEe unxeUsTiLG crq9z bXNjRc6tbE +jv+p 8Dz9MhsN4R vt3v5 SB193H5zhE xQ143 woR4zsZDlJ 7icPk M5p+H+B8H/ nUeFh A1LN9ER8MD RMumT CBMlrVbyBO IBZlC yfG3u8h5P5 P+pNm 5lona+BHQl lgCpS HiUM1aSFgu ESAJe 0Zd6I25C8N [place]/nN k2OWsF23z1 L+fVe 7IN3PGuU/j mNHRD M5CvPG2Li4 WgI0I ABFQAPqQBv oAxPA BLbAEbgAD+ ADAkE oiARxYDHgg hSQAU QgFxSAtaAY lIKtY CeoBnWgETS DNnAY sITd4KH0Lp 6By2A U4QHSGR2mg CnwCs xAEISFyBAV Uod0I EPIHLKFWJA b5AMF QxFQHJQIJU NCSAI VQOugUqgcq obqoW boW+godBq6 AA1Dt 6JUsHO6NQr HIzAJ psFasBFsBb NgTzg IjoQXwcnwM jgfLo O2qEZtZ5eA 7oRPw 5nmLEbJX6E nEYAQ ETqiizARFs JGQpF 4JAkRIauQE qQCaU JwsC3kJ4tY SJGny FsUBkVFMVB MlAvK OxSR7tDTaR ahNqO qUQdQnag+1 FXUKG vV2GJDVgpk zdHO6 HH1OHcAwIa uRleg k2Md8UInKb Q4+hU Sz0SqlHCBD H9MHC YVswKzGbMb 0445h RnGjGGmsVi sOtYc 64oNxXKwYm wxtgp 1ASkBleX4r n2DI+ X0hMN0E0m3 Togrx FXgWnAncFd wE7gZ vBLeEO+MD8 Xz8Mv xZfhGfA9+C D+Suzy NxI0gTsmEU QiphL vBM6IV3P4x LeEEk EvWITsRwoo C4hlh KRIE6Mclbx iVRSG YkNimBJCFt Ie0nn ABeJf5cq8o GZA9y BWaQ5mXcPc 8h3ye /UaAqWCoEK PAUVi vUKHQqXFF4 pohXN KT3NFsxzL0 YoXhE cUjxqRJeyU iJrcR QIwEJx8OK1 YbStD WS1QL2ZRrS ebNyi /CB0PsBIEL I4kPh UYoo+yhnKG NUhKp EKTH99QTWV upZ6j gNQzOmBdBS aaW0b 2iDtCkVioq dSrRK nkqNynEVKR 2hG9E I8Kf4Skky+ nX6O1 XoJS5Swbno 1TbVK 0ye8vvqjdf x1UrU 8gJQ9I1rX3 R91NP Qy7g7ys/TQ GmYaY Lp8Jbi4Nuu 8XQOb I9UNL8ktfi H59zW qGSDPTC3R1 ju0xz WtUqU3tXUy tKq0j ac2NVepa9g naq9Q /kS6jBVAob NR6Cz Q+ekzmOGCs OTkc6 jZMGhvcU5k f11Jb b8qlQ3J0mC elF6h Oubvfh1Bfx s/ST9 Hfq9+lMGOg YhBgU OdIe8NwSIX MMUw1 2G/YavjYyN Yow2G HUZPTJWMw4 wzjdu Td2fVqNnI3 lm0mB yzRRjyjJNM 91tet tMTtD1AfMi MRsyh 92qbWZit40 HLdAW ThZCiwaLG0 wS05O Aq5svrsnWX YMtCy 82XR0BGBdG W22z6 xx8iS7tmM8 daH3H vpINmOGc36 Pzq62 CFva5swoeI PJc37 kr86iQdE5g bse32 3K4489fQ2G /wb7X /uARa6PTge 1h0tH IJlYs9nKMu 8YKY2 3saDpNN0b1 rXY65 sFR2dHL3Qy Y+RcX rlanL0wQy3 nG8/j aDyvCgrj0k lzrXa BgEGlFw21v Unddd 457g/sDD30 PnkeT t2TmiJzy67 HPZ17 WXiKvDq/Xb Gf2Sv Ryy4Fgu2oS e9CH4 hPlU+1z31f PN9m3 9TsIt99tig 8pf7R /kP82/xsBW gHcgO aAqUDHwJWB fUGko MMC9YJShc3 CRcE9 ASGSPGb6lJ vzDec Z38oLsxAA8 O2h98 ZIk9nQfC+O CQ8Lr wl/GGETURD Rv4C6 YMmClgWvIr 0iyyL qDYzCTbJ0k xWjE6 Kbo1/HeMeU x0hjr YPWtt7M77b TxHXH Y+Mv22xoac f6LNy 5kKhSCjS13 foi40 F8ds0n1een vvj4E sUlnCVHEtG JMYkt lp91aRsJkh TSgKW 1P6y5eM6l7 hOeB2 6Ns9Aomu/n TyS5J vZvMJc2Eg1 ePJni vgWY5nXWUu QLnqf 8c4msjq6LW duf9i i8Cq42I5tB mHFUS BGmCfsytTP zMoez yTVBk9MYcX ftXDY cFfX1PTTQt 7K7xT MVr7PEbAYb XjKa4 5ZTk/MmNzr 3SJ5y ndQwXEhY1h 3LJ/J 9879egVrBX dFboF edltU2drjR +lXQq qWrelfrry5 aPb7G n84QqVP5uP t/KLQ oRF92jS0rS U+RVt TewcH0omas ixWKR yR6LxfciRd I2ijY UAmb2fztYP 9LeCU LI61CZ3ijd +Zuvv cEpMwFS37m krRls KgbhG6FeQd h1uvb 3LcdKFcuzy 8f2x6 aiHDIZ0bMl pc7l+ r1QLSLNufD sEuyS 1oZXNldZVC 1tep9 lOq0VJ5BNA utZu2 z1vn4vqyw8 PHY01 scMFee528a YO/Ne r/6zgajhop 9mH05 +x16Ojb6e0 36url Qf3o69aR+4 X7pgY sTwb0Hmh1z mi1lr XCrpHXyYML By994 r6Bcuiajl5 e3lx4 ChySHHn+b+ O31w0 GHe4+wjrR9 Z/hdb Sd0i3HB2bn eOdWV 0iXtjusePh p4tLf Fcgzms4pb1 x/TPV UlJXV97GmO iaITn 07mn5w+lXX q6enk 39A7S6vuhF k9c60 vvG/wbNDZ8 +d8z5 3p9+w/ed71 /LELz faEWfKe1Id kcKlz nN8r5ra3Sl oGHQY 3bavAwu96N e4Znj n45ov8xbBC va+eu uAm1fAP/JH h61HX i15IxKE9xk v56Fb 3cbz2e21E0 FlzF3 963A3DcJo8 mvcbf vV1gL6zNE3 +6j06 1MIAevub9Z EnP2X /1S272CM5D cWEzk TqZ5sGzmI2 Jy8/X vh4/EnWk5m nxT8r /5p8uLRKr1 94/DI wFTs1/lz0/ NOvm1 +ov9j/0u5l 73TY9 M4JFd2gQta 8UX9z 4C3rbf+7mH cTM7n bot7eL9a+6 PkY9P Nic4uXl97C 94Tz+ wplbmRzdHJ lYW0K AY3il3FjJa EzIDA bw4SjPoz1L 0NvbG 4vW2GqK5Ba RGV2a URxF1EmaQ8 IZWln aHQgMjkvU3 VidHl qKR7TlCYaF S9GaW c0OIHeLejq dGVEZ WNvZGUvVHl wZS9Y P2QaWTP8W8 dpZHR hEBD3Qb4EW W5ndG ggMjgvQml0 c1Blc kNvbXBvbmV udCA4 Xd5cmUTySA 0KeJz twTEBAAAAw qD+qW mGG1XIVHUK AB4G+ 2OKjwplbmR zdHJl WM5ABM1fh0 JqCjE 7NVLqh0NaS jw8L0 SjdU1zY4Fu Y2VbL 4wBH7Yvl3U kIDEy ZRSxSa1aVY VpZ2h 3UWD3E4V0P nR5cG RfZB3rI0Ur Rmlsd YIeY8KwWKE lRGVj i0OzW8T6oW UvWE9 qviRmrQ4RY WNvZG VQYXJtczw8 L0Nvb HVtbnMgMTg yL0Nv vA7kfsFeK0 ByZWR rI6PexoBxW S9CaX FmBMVsL41x cG9uZ W50IDg+Pi9 XaWR0 aCAxODIvU0 1hc2s gMTMgMCBSL 0JpdH APIQCYa27n b25lb aMgGL2FepB lcnBv fRQ4CAB5fr VlL0x fnfg5zUO1N DQ1Pj 0vdCBnRY1V eNrtm wlUVEfWx2/ iJHMm 0bhGWRqatW VzwSW OE+PESEKMi iua0T gaYjQRjQIa AiKgQ NN00/vCqoC ANoLs f6FHxwrVRi FlURF QUUFAQJRFY Kq6ka BjfwmUV64C d97R4 +t671Xd+tW 9/3vr UQ5gaRCFA0 r5x2e gW8f0OSXAn eTElf KHr65/12/X xaRXh HCIqSaM9Xa 4qOf/ cpBm6pN4DX M/NQv 57Ts9ClVK4 zc9NW mZV0/Ps75G kRfLF Ko1CToCsPc Eoj8X gM3UHvtQeY z+1fe zG3sQSovtE ChRQI hLRVwnki9p uL3+1 0rHk9JwPfN pJZWN Y96/hqbHqw +Gw6S sPU43vjfSW ZbxM0 394EMHUHTZ 6hCDy Y0nKldniOH Lc0Cd Qgp3jEvQ7W K8rCv 3BjZqbHmam le12v PhkGLIfs4r 7uRl3 hGppTdrGl5 1/+qb Wr/IB4NnJS D0AkN N3KAO8qEz2 ARQp4 SpGZW8ACY1 5ojYe afADFeYQia fzJT4 aYtDLEwmgx I5ID7 /zUZE/JeZU xzo8E LUh3OcFSlu XS6eJ wHp6v58q3U Xja2P WKzWb7oC5I LudVk /Gb3aZ1Q1k hyRlQ eigcAEJWpq boXUB mT/DCAwYDr N1f/3 NwWIoWbsRY R2shC 0OehkBOYNc 7/2xg VW6OXw7VvU 9tfcd i8Sd1QUJKd RL/YJ dzqnyrrXVp COPN/ PZyZaj2p59 SOLOMON+6 PW03lC8hOI EaCgk 0JU7knbs7x p2ujn WOmIuPrlix Gh+uc V0wpPyDUAF QBl+u vv/bJdUaDH k4rIC wqCkCl30l9 h615u GZCPs6rSSt dr60G AGRL3YjQP4 giIFJ lwYIpnz1T+ zGkJM EXj3T56XCN 5/X+F uR55Ecky4e 4YUGM yQ8YIL4eC2 UKECH sMETHcGgT6 yKVxP qQvFva00A9 BRXCk l92Csv+yfO ymJoC KO+evGjq8G 4vInz dqjPaEgQYV JlrDF Hsl4xO+0cM 90FqQ jrInUHKBqW TQpxt nI9qryRGhC SPzCJ jhjqXoLIHh 1rD97 lk/kdPRud0 hNS6z rdvBGy03CQ 7vNOg ygOhGWHUiL vOa/N F92f7JhUop SwkUl FRP0Q173s5 UiCGX 8+5iSZcTlF gwbhF 2GIJ12Flsm m+8L9 SPhdx699wO ZtPDU TCLDePtYJL 9B0s8 UsnG8aA7q+ 0/dlF gwIaPbGDCY TBgfr U33D+uoOtZ W298I cfCNNGIZgt I64QW 1FqfEDd0le Wn3Bh TDXGlI3EQ5 w+Xsa 0NRgOx7Hz8 xxCY6 BOe9jz0kTG 2KTL0 dZDzt6e2+K zrvwn EmeLrv9ba6 EvF1f IgEphQ/JV5 nKl1M r4+S5R9Tly +UNKq Awno/OKnmN OJN4Y hfeOUK7C5Y mdh4j XONIX2p94R JM40K oqoKJ7JCK2 5OGzN 1aPl9uC0Eq BywRk KiV6dseZsi 1Wb2k SDtiuoc+Bj mkTjl dpbCr2RBq8 TgBID qI4apmrEL1 p4pMM KR5rwcmCU5 dwNJM JWG0sG8Wyn GLRor 98BBRcgOsd klImv kUDsG8G5qN Q6ifx u/FEmMN6D5 XBIA1 0ezPEgrAja 8GuvG ZEu8Yu+Joy IzNsW LVhM7nk1Zu eJJr6 fgc58I6Dzu ZiMEp juBDMHhedn 3U9BA +XegtlbA+Q PNN09 3aDCABLHyT dvhEC ymS8ugeS11 qBGO8 B0WFFdWuB6 aqt9L RpE5UmcXMb 538a/ hMHrcN3co3 28ZSH VYd5R4sldE MHYvA t/CIDJzmg+ 8MIdY kx60O+g6Ya iGP6V nH8Ry8TiVh UJFN1 OP1GyeD7UH Wqcj7 9UWEHVU23P 4xOVL 8nNZBdmcOG glspo hHJ2nrojBL euDDN WsK3tTnGwO GaCCk r/3Zuh4Vh2 lJJ/A zSYoOB6+0G /DgA1 TvvhcJx9Ra 7fNAD RKZQi4Zxbc empGB Eb/uUREEE5 s4YL5 eQlyTCMLI5 8iTo7 +CaTDHY511 tfnEK TuE4+l+Wla l+UiC r+Qvyl97Rf FXTZu IIgwyV/rosales E3zIE qbVZF0aQsD YOu1A qqfecp45yY kPWCE 3tjZsFZXeR 60LO8 jE9tjOHk+w qod7E iIwkV+d4TD E6MXO 9UNPkVP+5p vfU3R jy7j/5UkcF RCqSb 9A1tcRMSHr uDczk 2MCDTi5YhM wNH9r O+vbk6eQ/h 8hAIb bLbMErQUSN VVxxf +ivlXfrUAx Ck2HB SpMrasznYN q02B5 nC+VEZLtDC nbj+o J/8kS8CNg6 8Cwer AxECstrxDJ cApFx i/ka2RY7IW l9I2E 8gTW57y61s XMHyy Ad/janaImW 8Zk3y yrrRo+IHt/ EMsrr wGh8lGFGgj U6/aL Uyk9vv52i4 FH5xR egJYgG4+h9 SXq/C v3q2zY7GU3 XWa3d GN0CW69azk oVIkJ wsrYB0oaJA Yf3X/ tzciGCchlc xGOFn i+QG9JmL6D IGPD1 CsP5JtzWDZ 1NiSx Ndx19btdYB pGrt+ 4DgYZMtHJ/ tIzaJ avLMGK0xZ2 UQHEY WxYmUJ2OBC 65ENH duHIBB64s0 VICzc f4zTgyLqp0 JTWS4 r+tbZNtpFg HjVvo A0IhT8sj2d oRkZX 8evIQ8TnuL yILuW IvwhFekduL pIq8C P+slUo9Aw5 4mjoM Io+k63GzQm SIo88 eMQW7ZHKj+ epnXZ 2OvulAYmIF o0Ttu /4QXyomok0 qMzQ2 XI9yno3AEM 5Aruq aCnFSgDoxy QnAEc UDgXkPk4yc vh3Ka SQ5nk9X2Sg YJ6fk Vmw+EgmGXO yl/tq ZcEe9s8ePa LUTZM gCcWp0f+K9 LV2e6 H6xkpIX1SE Fkc22 kKe6HJTSHW 8y9bt 99X3VKR/Gp kYnOA 708US4yMjA I1+Cp ioD298fq47 3IgrG tnwuOpUJ5x 2jrdg CcG175rBVq Alamg uprk13hymW vxAit zKgw6MSgLw D0Uh4 Im+3/mCMnM OcYey ESn30k63Xy V8AkY 2ds0tGZsqV dWdUd wYRlikYK7C IMSgk IzzBeq3RoV AiOaN FRGejyIsQm QWldf J3+tqtuxOX C+D9w 99Ynampa+r NnL97 cblq+7q8yI mYIiR EYLbnJCO+v HURZQ pe+mh0hto3 L+VFb OAlDScuJ29 UM+qj b7VkEXt3Tq U71wu fy2fM7n1IT IdD2o fE8V3ERHKf KLyqt LapIfLFw4i CXJhG AXVKbeOjwX JVpEX mjAKRh4+ei E1pzX 15RJLlnXKC qBapS U980tSk0+S ccizn kYqczxwkUB xFiBD qGmQfSHy1z +0dvb OxFtHhmTkl 97zQ0 lTsgQfME8D Y2J3M GIw3bs0crc 5vk13 w6IKUgIMMg 8DAQ8 IHfbxg3oe6 YRoZI fJXhdXU33q FiL5H YcuPSFfXM5 z66/C 2OyS+JCLfO 56X09 CrLMPxatbm Oh6/O ZCsE0UBgC2 NzQkd HXk0qAIJDQ 7i4GG owJDs7LZuL JH+PP Lu8UYp3HBn PI8mT z+Tz8sqwuo lyF9b hOFVrcHyjS ocwD0 Z9dPo5+iX0 iJa66 Ts3NF5DBLS hZZ4e eQtbzOnRBw U1Vh5 JZJVCjAUlR wI7tI QicaIaEmhB xRoSM GnVflR0PaD sFiMS OmwSe/3R5P kXo0d oErBjoEkOV Xup3I Jt0ZrckIWv y2S3K W70kfXOPnv kPFnl ZQtmPoWcbX G3mNQ JlIGXB4D2i iyHb0 zR+yez8fq8 2wJlj 0mGLojrvZ5 AQkzD g3qZcJq9dP xC8gT G4EWEW8UiV 0+hYQ Dqgcn4lkG0 7yzl3 XdC7Qa0tdh tl6mX Jda8am5Yei Z1EEB 6KqvRcnD2a YYQqR Y4g6MhtxWK oYgZf A4lSMJYUIn rPe6B 26WJ3mRznk ZiOjx g2KJlh4qQ0 eU4TS WiM7qE8x6H m4POM wR3cfc78dT ngcoU ExrArd84Md t/LGf Dn+Rb8RnZA O+CJS f8GdW1b5TH lStyS 0oaZfMTN1K Ip/7X KMvthYDs2K 9yksD BdX5bVkYqh uax6S c/p0sdRN/L FNUXa UjstoyUvxh 4uoDw 0c89Xbk3ou GKyX/ hsRPX+2Nxv k3Wli t2M16vQB0N CtrHh 26kHQqaj1/ aRftQ eTguiFKbvG eUy8K tKAstCLjsk vwR6Z aHEGYJKnwi ejhRG Ztg+TXkN/a xWC3R GLvYyQNqDL 107Ba ISoO7wnMuW wAJCH F/Uhx6FhIz Z1yMh M+bls4Biv/ LXZ3d eO9x0qtUYI brBOA yIAZlCvlD6 Tbk0j BypHItGJdK K+sK6 oh4U5yOgdj jVK8m PQyvFmIFow 23YJ5 dFw92Qr1g1 Q5goy nVMN8KaX+c 4htff W104a0g0CK 5YA6+ FSiWJ66tFR wMY0c KLntgnemkD ZYMKg L4IxkHPGb7 FlrE9 C31P6mVzx4 yVpuH njlr9ZRbPd uy80j rXApuv+73M LrDyz ZKRM/98S7L agN8j ckqplTQmD8 1YHvO MBMwR/akHh 4AxMJ dmlPxrM3U5 rhIye IbuKL52OO8 puOmx u6koJJv0Gz FAXH/ As69MYJJon q9AXb zuhsEFbceX iIk05 f68b4lXDtZ bzQZ5 gzkuKzb/Y9 ra0NK VYn/HGXGl1 1lf/O DdwHjJ0JNN Gf0EC D5iJnUZScK XFR4v cufXzwQG3u DT5Xb B18JfVbgML wLKBr r/g6LTQ8BH fISUl vAwTI8NJ30 WhvSE fF67CUq61F A/6/d viRVMr5xXM TL/Oz e+/oXJjugs erzcM GTTHSz7qxo 97Q/L e8BcPIg7x+ kQVTX BNTxW7OJRR OuIJz Kk3klQToq8 DGx6Z Wp8BEJ/joq PH+8M 1FyVATyc5T RApMd L4ILp7r6kB FvmYj 7qFG4RWp6i 1PHku B33MLdx+oz ppq5G R1CW99IRU1 /SigJ LcPs8bPKlu vRP9c azlI+mUX3t 9kfX4 PJbOvzS+0r G1HUt 0DJTcpGptb dlHOT Vl6ERtNMhO software program manager+l T7lxeC34m/ Hs3z+ CjXQ9hyTAm fx4fP 8mbWlV/XuL eWj8H cpjhiI4EP2 v2dQ6 +WfX/lfvo2 ZtsU0 JTiiVeO/SX UJYyA GhE3aUR7kd 9r7Is a+xTNzlnNF 37wH3 2R5n3jzSzw Gddar eB4pBP9nSw Q1+Jm yxC0TL0/h0 VO6Ee fJDSWe41V2 rhO97 w6xiJaPTRr LX3jt FjoBVTFjpj 7/M1a IiV+8R0Stp a2pbY N2eMj2jEQ+ WvOuw 1jmYRapKg7 r/e8A CPlpUlKBLE jE6p7 Q8p85K2u/1 xB8P/ D5BGWphqjp gnJZe Q+xlod1uSk bOJ1z M31zel/vCq u7VQ8 /bY+yO2/ce lVU2N M0pS7ULTJy ouNt5 XXzTB/UWkV d13Kh 6CEpUnJXos Y6dyG xrf/oWkbeH 5FHf/ Kat21WMswx B4Dp+ avaik0ykKI ms0D/ IAfQjqjQ6E eTtgQ 7T16IGccE8 CALKb mgwiQLKZEt O8pvS /2iAbY8A8g A552o tOitrmt+sn v8Plv YE2WvgvzPv dHJlY H2OGZ7mc0F qCjE1 WLXmq4FqMc w8L0d dk2CrXUzaZ y9Ucm Wcl9UlgnKa Y3kvS DO2vlWtF5j gZmFs w7YzI2QbYG EgMCB OYu7eK70tk GVudH NbMiAwIFIg MTYgM CBSIDMgMCB SXS9U cIJbG9YjN7 UvUmV wr3UsW3LpI DwvQ2 2up3NEtDXi ZTw8L 3TtTjD2qFO SR0Ig MTEgMCBSPj 4vUHJ eL8IrqCOrP 1BERi EtYDK1lKGk SW1hZ 9FOJV1YlVV nZUMg O0riKMwsWE 0vRm9 yuDb2Y6cpC m8gMT maCNAQR0he bHYgM UazPAQBX9s pMCAx YCTsGb7YLR 9iIDE 1BLXsNj6+L 1hPYm hiG8L8ZH4x bTM1M eY0JGM7JKV gUi90 RtP3SrBhFV IwIDA gUj4+Pj4vU GFyZW 50IDkgMCBS L01lZ IegKg87BjE gMCA2 MTIgNzkyXT 4+CmV pZM1escf9N DAgb2 FzPpo9Y6tk ZHNbM TUgMCBSXS9 UeXBl O3XqJ7LbX3 NvdW5 0IDEvUGFyZ W50ID esXLVIDp7D ZW5kb 2JqCjIwIDA gb2Jq Knd0A0gwf8 VwPDw eJv8EtnLpk 3Bhcm PiT2gvD8Fm L0lDQ 5Rzv4NvTHM yIDAg Ul0+Pi9TdW J0eXB uP4Uref1vD mlsdG RnD4OdCDXo RGVjb 8QnT8R6rOU vWE9i geGqaT8HFF RyaXh bMSAwIDAgM SAwID GoF3Xbdb7Q eXBlI KGePlTzs5B yY2Vz PDwvUHJvY1 NldFs oEKDWE2Kib HQvSW 1aV4FNJ7yi YWdlQ k8PrJMcTZr dL1hP PzmaR6F1QX 9pbTM 2OpP9XUS3I DAgUj 4+Qj9xMhDs eFswI DAgMTgyIDI 5XS9M FA1njLhcVK k+PnN 2ujEteBa7d NPPzD T1JYi6BLWQ BwARc gLfCmVuZHN 0cmVh bQplbmRvYm oKMTY gMCBvYmoKP DwvRm stlKUqT9Qy YXRlR ZKxs2JxI9k lbmd0 hIHpEKs0Ra 5zdHJ tOJ4GnWfHQ Vtv2z YUfu+vILAX G6gVU ndlT/GlrYf ayWyn xbYMgyIztg ZdXF2 Stb9+R5RIy o4tV1 aHNXAtUiTP Od+50 pj3LdUZKAW /1UG6 zigQSy3G9O 3HtpE JWhYzfjC1q MYx+v VNsZqtJUjD JrIMX ZVCidjNR2M whbCC xSfZoKsPdB gjeLt 6EvswGjiKB idigl abO42A5wiq /p9o9 csbhCarNwd ENEex dF2UKvZovb BPUyr G2VVLQ1Vix ATPiO ADGpZCbHb+ jefFe RP19CB1wWC rEsrE 1BqNtf8awr 2SQKV KqXjXXvw4U OKCzG iUuQEffaBu kG356 V1ov7KXwlM x+3Q2 myxmN/P5W0 7w5m4 x/glAe7SvQ c3ois D1ZwoNb1Aj 0DM4Y +tyTZoWFtJ kcUQD 6s0Xlyz4gJ Pecx+ xJf58NaeeL jyMb4 rSUpt2Q44V xSB1e 95V8JfySJ3 Wi3Fn YPkF4WozFx pzk7R Eo2ohHW5pV zcp6B h3zEcDHWk/ 8SeiG qo+aFRaJ/I fb0dg QqFcEB9h62 2xxiw QxNrnM4zJQ C79Z/ UBTQW8zOoN xh3C6 xh2YTGHUpz pm4U6 p5ZWjhp+Ur GKT5s X4VRLQHpT1 ejDze S9nNmhzUGI U71YV jr7lNtQVdL TLeiX wMRzIM0whx 4pFmT kkyUl6Mwhs GZj8u nE8P8Tsqc6 P8qkV U0pdB3g/GUANAKITO eFq1U XxfKYCJaaS Lcx51 rzeGDyXjVp FSTKJ K4qrsFgm7C XVPRT IDRVa19jLD Zx14e UllmeDFkZz 9Ka+M qrs6WiXfzk 27m17 g29UJBxJEM YPA6j fzmh18ylCd k6e6S KTNcHoX2Tb OED6p kdYXT0uaLo rSW+Q 2PlOdKr2m2 pY9M3 WWExE3ab/A 4F+ck HvqSY6fiPB VCZRQ 5Eq86mNPx1 VbUS5 WQUM/fFTCK YL8Lq QqCPEA0q3z bL5mm ihiC1Zuo6Z qCx3T nco+uz7vi6 aFn68 THP3SadXom YKVKo qdh5WrYbGm rQqMy frWQ/8QOKF ht27H 4Dsz+SuRuH 6utfI Uijapd1HuR aACU4 Rl89xcO/jX 1Pd8V Mo/qXY9H10 VkPb4 rNlRKUMjv8 z3QFQ W7fGEUuB7W QmSAf oEiURUHBXx UfgV8 dfl/gLZw9A v6jCK bOZY2Bf/hy 4D1GI 8zkaaMVwe7 gbCtL 2hZMPidPBq aVTEE e9OzSSl8uR vwHNQ kOGykT7c2Y J+GTh EJKzN8yqfq MezIc R22cJ+ZI8x +N6xo UOJZsArCQ5 pwCJ+ 7jNPX+j8Ks NBAcG AgTbwSSzlk lU0d4 2ScKkyCe3B jk0uL 9kD2eMNrsR ryZtZ FJwRwUFh63 V5Ksz mUSn3VsRJa 3qfpa QInFAp4eQU 7uVpN n4tyaYpTMi 281kQ oyT9iE7XW6 cVkeQ /tLIGcKTS+ XJXSc rLwu2aE6Ud DDVN/ LjPUQ+9TH9 mQznm m9sBNBsBSA hwMaC 454cQj5e89 MRM5c l6Mvq+/wd2 pL9zI Gnz1DApq5w Ntv3f HzDOO/3YlN EfNxa qZyxmgbNLN Z6bv5 7db7DT5P4l Q4lQV nsALPNZiaC 2h1qt LWZXBz2YOX kPvoI R+6Iuekmml USCzW +D9m7ZS4ib BDcne 2YYW6MWJMN C91CM lVmNxesfC5 kGZL2 y3CYUJPgTq ZBAHo jR/phugL6t OX3wZ SRlg6EiZaq Y9Wdt OB3DvWxNPd TmZ+p sIAobnSkbq 9S47k w3i2qMLqQ9 WZTSj CxOx2ApMx3 qpyEe +eILKulhcW VdG01 S5UvrY5XC7 urxdc 4OcleFKcXK l1ANr Eh1qYXCh8P 6j/wi NcfkLJuqyP zKdCY jIQIGC3EAK t7IXk F3TceVyZWd 5UxXS 34E5C6UbSt 9ixsC tp1J5QH+52 Olt3W mudJf88AEr WFmhW rtXH9Q3029 N6kce rekvErwXy2 /FupD R/9qkIYbNl rbRER SCpulgiBgt dZTUL lPoobPQwI8 20kv8 T1a5PJe/ym KJXc3 GWSn2AKqZZ ZbL0z qgsNME5qJs ppKdr urWm97zalh 5uCcR XKbl+f/ktf 48TV0 f25R0hDGB2 bhd/j rUCk+p6IoR N/Qjp pFBE4fD0lv PLGAv oSsWsC6/ap 0jAKK whzipBQSAl E1W3p /XP4m2JpA8 9QI4t YIAEwWbTlv 5WwYX 3cGQDhxMWq eDBfX iMASkGLjpd Ruiln NhRPtc+oUI Zn4gr WwY6cYTWA7 Fz0q1 u7Pb6I68Df PUhh6 6R6aGETFEN 1urC+ O5EZLSK5FN /gyGl b9Kjc9+uHP ldZAX xI/cWvf8m1 TCb4x hrRRLP9lLV jU7Ta ST+t/y5AKj 1A3rQ b4hc9l2iBx 1N9hH hUEQlAnoZZ Dv5LJ 5GCVxexq98 1kuLw l8aWtWOfca 61Ygq jrWz40rSR4 fG4Sc BNTLkjgqUm GwVxT MdZ6PoORmn ENTu+ +T2xg0w1X/ Rk6we hM05Dy26Mt VM6/L lhd55i4jZv ONumn +B0dKEU3XD f043W nmYXXajpMz HR+/r buf0n1MfpU vJ/8C 6SG+cgplbm RzdHJ wHO8HUB2el 2JqCj R7ONGra4Ri Cjw8L 05hbWUvSGV PYi9T rCP5xCGqL2 R5cGU sG1K1ySVzR m9udC 0TPWZxXp4c dC9IZ Er8YOWbV5Q tT2Js gNW0BR2Vzw NvZGl uCp9BtI0Uf nNpRW 5lr9Utgfm+ Pgplb mRvYmoKMTc gMCBv YmoKPDwvTm FtZS9 EKSWeY6F3A nR5cG UvVHlwZTEv VHlwZ J5Nn630W8S hc2VG d006G7afbA ZldGl zKW7Yo2yzW 0VuY2 9vcK0vS4os bkFuc 2lFbmNvZGl uZz4+ LkZuHA6jiq oxOCA nSB2fngp3R C9OYW 8aE6hedMYx U3Vid XpkGZ9OqHR lMS9U kPAhB1Wtaz QvQmF zZUZvbnQvS GVsdm S3mZRlJ3Uc Y29ka Y2wO2yqsaT uc2lF bmNvZGluZz 4+CmV kOO8zpgt5A DAgb2 AkHpp9Ds2M ZW5kb 2JqCjUgMCB vYmoK PDwvRGVzdH MgMjE kKIPCLk6AK W5kb2 JqCjIyIDAg b2JqC jr2Y5JeBZP gMCBS W7sHItDfUb A1OTg gbnVsbF0+P gplbm RvYmoKMjMg MCBvY moKPDwvRFs xNSAw IFIvWFlaID M2IDU 5NSBudWxsX T4+Cm CkYF6wqrgw NCAwI D7bsno7QZ2 EWzE1 QWJaHn0KQG ogMzY rIvD2CK18n GxdPj 2GML0uz9Zq CjIxI YAry6RxIcl 8L05h bWVzWyhfYT NlNGU 1MTctYWJkN C00ZT BmLWJiZGQt NDdhN DRhZDhlMWF hKSAy MiAwIFIoXz E0OTN fGjM2MTUeJ GUtND JcYV5lSnPy LTNkO WZmNjgwZjF lYykg MjMgMCBSKE 1LTUc gLFy4m1koo WFuIE EosdK4sTTm IDI0I DAgUl0+Pgp lbmRv YmoKMTAgMC BvYmo KPDwvRGVzd ChNS0 1HLVBoeXNp Y2lhb nKOh78odLf 0KS9Q YXJlbnQgNi AwIFI yECe6tFV5O mVmZj AwNTAwMDY4 MDA3O TAwNzMwMDY 5MDA2 MzAwNjkwMD YxMDA 2ZTAwMjAwM DQzMD O1YkWyUvNz MDczM UH9JQSdJdT wMDc0 Pj4+CmVuZG 9iago gQZFsJQ2wd go8PC 0Jk9FRHJSe KEQ6M gNpSGW0ZPI xOTM5 NTAtMDQnMD AnKS9 DcmVhdGlvb kRhdG UoRDoyMDIw MDQxM tH2Rsd2OMh tNCcw YTauQ7Krp7 R1Y2V yKEliZXggU ERGIE CrKXP7g5Fq NC45L jAuMTUvODQ zOCBb SfUKCB0JV8 I7IG1 vZGlmaWVkI HVzaW 1xHBkGHIp0 IDIuM E97EZH4LUJ UM1hU KT4+CmVuZG 9iagp 4cmVmCjAgM jYKMD AwMDAwMDAw MCA2N TUzNSBmIAo wMDAw AGHyGBJ2MM AwMDA pTP6dHzDnW DAwMD AxMDMgMDAw MDAgb iAKMDAwMDA wMDE3 OSAwMDAwMC BuIAo wMDAwMDAwM zE0ID QkLTDgLU4o CjAwM JWsFZA5LAW gMDAw MDAgbiAKMD AwMDA hXCC0AHBaB DAwMC BuIAowMDAw MDAwN BN5NACvUWH wIG4g CjAwMDAwMT A2ODI gMDAwMDAgb iAKMD AwMDAwODA3 MiAwM DAwMCBuIAo wMDAw OKKcVTR2LX AwMDA mFG3cRfFiD DAwMD D6MHSuUHVr MDAgb iAKMDAwMDA wMDU3 OCAwMDAwMC BuIAo wMDAwMDAzM jQ3ID OmMIMdOD5c CjAwM CTfROJ6StC gMDAw MDAgbiAKMD AwMDA wNzczOCAwM DAwMC BuIAowMDAw MDA4N QA1CGHhBLN wIG4g CjAwMDAwMT A0Nzk gMDAwMDAgb iAKMD AwMDAxMDU4 MyAwM DAwMCBuIAo wMDAw MDEwMzcyID AwMDA vFZ8hGwUzD DAwMD gxMzcgMDAw MDAgb iAKMDAwMDA xMDg3 NiAwMDAwMC BuIAo wMDAwMDEwN zM1ID DcGGSiOK0g CjAwM SVpXMH7XGH gMDAw MDAgbiAKMD AwMDA xMDgyOSAwM DAwMC BuIAowMDAw MDExM TcxIDAwMDA wIG4g CnRyYWlsZX IKPDw qDB6phyJnF SAwIF IvSUQgWzxh ZmYzZ VlmKBQ6GJi xNjll IhGyQKQ9TH NjZjI 2OLgyNm32D jEyMz hiYTRlZTE2 NzljO WEwZmUwZmE 1Yzk3 ZTcwMWE+XS 9Sb29 0IDQgMCBSL 1Npem UgMjY+Pgpz dGFyd HhyZWYKMTE zNTEK SLADL7KC ID Date Data Source [id number] 08/13/2019 07:32:00 AM EDT [facility] Name Value Range Interpretation Code Description Data Supporting Source(s) Document(s ) Discharge [facility] G9iag [place] o2DB6UvHE2 [facility] 2E4jZXbM4Z 5cGUv Center Al3niG0KOM NlRm9 mjU4NOKi8D XRpY2 YkBX0fr5Hz bmcvV 8smIM4vhPB uY29k lH6qRz9GVI 5kb2J qCjIgMCBvY moKPD wvRmlsdGVy L0ZsY OPnGCTgc4V lL0xl myn1mYMtDG 4+c3R yZWFtCnicK +QCAA ZfMQtAMR9o c3RyZ WFtCmVuZG9 iagoz VATlq2NuDx w8L0Z iyQGfvj8Nc GF0ZU RfF13yNW2I ZW5nd GggNjk+PnN 0cmVh vDp5iJFB0A rk0o/ INFAwNFAIS eNyCu EyVDAAQkMF I1MLP XNTBQtDPQs jhZBc Ff1VuTSXiD h+Rad DSqsWs1oBH yAXAL D3Iu8VRB3a c3RyZ WFtCmVuZG9 iago0 DLOsv4CqVw w8L0Z izXDiqq5Im GF0ZU EbG94kDI4Z ZW5nd GggMTA+PnN 0cmVh yFq5iNwmNi AA7gB 0TrHrBRK5l mVhbQ plbmRvYmoK NSAwI Q8wnwy3PX8 GaWx0 ZXIvRmxhdG VEZWN vZGUvTGVuZ 3RoID ziPd8fiGEs YW0Ke LkWCLZr7LV PyDRU MDRQCEnjcg rhMlQ wAEJDBSNTC z1zUw RXCw9BD9MM XC6Ng UN5OJCaoqp 0BSPN bCet4dVtCJ 4AtIM W5NemqoZmq HJlYW 8PUE3in6Jm CjYgM CBvYmoKPDw vUGFn XW7qXCRfDE NlTm9 xOF8HSP3jt yA3ID WmRs3BbZXi L0Nhd RLaw9vhK0U 0bGlu ZXMgOCAwIF IvUGF nZXMgOSAwI FIvVm tbk9DbGJJq ZmVyZ X2gRJFzWTC gMCBS Vn1SDQ2uq4 JqCjk gMCBvYmoKP DwvS2 bpy1zmFLNh IFJdL 0J3gJFxRWS nZXMv T164shLtXk 9JVFh SLYWkSG44B T4+Cm RlTD5yfqo9 IDAgb 9YdYwp9R0V vdW50 IDEvRmlyc3 QgMTI nIQMJT0exd 3QgMT YoFJMZOu8C ZW5kb 2JqCjEzIDA gb2Jq ClsvSUNDQm FzZWQ gMTQgMCBSX Qplbm RvYmoKMTQg MCBvY moKPDwvRml sdGVy E6GoNZIeGO Vjb2R qO8whxsl0g CAyNT u3U97gBa5+ c3RyZ WFtCnicnZZ 3VFPZ FfyQgPr9NM IQipT Qj5hBTplFc UiRLi oxCRBKwJAA IjZEV HBEUZGmCDI o4ICj R0KmUuxAIQ Gx6wQ ZRNRxcBQbl klkrR nfvHnvzZvf H/d+a 5+1t37u498 WugCQ /IMFwkxYCY AMoVg B0rgKjP3WB 2AHAQ zwAANsAOBw s7NCF vhGApkCfNi MbJkT +Lc6lf3k+f sq0z+ MwQD/n5S5W SIxAF CYjOfy+Nlc GRfJO S9NnYB1Y6k YtjRN zjBKziJZgj JWk3P aSTn57qebQ znzMo D7TcyoqfHi 8OTcJ +ONORK+jJF gGRfn KZu0Su6rR3 N0SYZ Axm/ksRl8T jYAKJ EjMvXpK2Eh LWOSK QENLzA4NRT IyV/w 6r3EzN3Ykf /Fzsx aRqUyx7dTZ lxTho 8UY7rsa24N 54vFz MIQB23y0sV YmRlZ HOFyAGbP/F kUeW0 WknY78Kx4H DBtLW 2+KNR/Xfyb kvd2l l6Ef+4ZRB/ 4w/ZX fpkNALCmZb XZ+od taRUAXesBU Lv9h8 8lArHRxz71 Dn1xH ds1QcPJ7qo nK6vc 9EqGTG7bNP /o7/q mWr3KW9eIY r7d7+ VhePOTOJJ0 MUNeN 25meqZExMj O4nD5 DOafh/gfB/ 51HhY R/CS+iC+UR UTLpk ohAGg2R5vH iAWZQ Jyoti+J+a+A/ D/qTZ rTxY2erW2Z ZYAqU hGkB+HgAoK hEgCX axA3PgmMrG RwP5z YvRmZid+8+ C/n1X uEz+yBYkf4 5jR0Q yuBJRzuya/ FoCNC GWEENM2oKv 6AMTw BX1gNL9LS/ gAwJB JOkTxDIw8Y IUkAF EIBcUgLWgG JSCrW HuyXH7cCU2 gzZwG HSBY+A0OAc ugctg BNwBUjAOno Ap8Ar MQBCEhcgQF VKHdC BDyByyhViQ G+QDB UMRUByUCCV DQkgC FUDroFKoHK qG6qF f1NjdIDMzm gANQ7 egUWgS+hV6 ByMwC abBWrARbAW zYE84 HE1BA3AK1F I4Hy6 Sg2OGfWH8V O6ET8 OZ4DBFTj+B pxGAE XH9hyglJGg CRkKR eCQJESGrkB KkAml D5cMasW+5i kiRp8 hbFAZFRTFQ TJQLy z6RsbWqduQ WoTaj waRCZW4pUy RV1Ch qCvURTUZro s3Rzu aXdLs9NL3S LkZXo FmEUwtc0TA 0OPoV JxQlN6enub h/TBw mFbMCsxmzG 9OOOY UZxoxhprFY rDrWH OuKDcVysGJ sMbYK zeO3MslAV1 59gyP nfNG8LM0wJ E6IK8 KX9AmcB9LA cBO4G jvT3qAtzH/ F8/DL 9JF8UxrNhh g/jp8 hGABJJz0QQ EIqYS 5bihAPWZj0 S3hBJ BA3pV7FtWP AuIZY YGsMBR1kBs 4lUUh mJDYpgSQhb SHtJ5 8r5GN4UHQH RmQPc oeXTM9Udmn fId8n o0VlCwzuMG jwFFY k9It2QobEy KaIVz FL5FLpjXaj WKF4R RSU5jbQYvb Iia3E GNztLHC3SL mG0rQ kGptOLCF5K 3mzco vyBeVHFCzF iOJD4 VGKKPsoZyh jVISq H9RMvkI34F bqWeo 4DUMzpgXQU mmltG 3vj3ThCKxE nUq0S y0FnylpBEq doRvR A+ld2LG0Cc p1+jt TMVYFHa9mE tU21S dea3MmgFbl 8dVK1 NrVRtTeqTP UfdTT 3Qtqc4do84 BpmGm Ea+Mr9HK1i /F0Dm 7BtodurCG1 h+fc1 tU6uUUnHGy o7tMc 0WqU9ugx49 rSqtI 6o/VTl13pz Z2qvU L6rTcbUvJF TUegs 2HwzU3gjay Dk5HO fPF6KdL8TP X9dSW 85tpOgmA9u npReo J17Kp28Bt7 LP0k/ Y27tlfEGjl GIQYF Bk1Gms6imt zDFMN oxd3Fj97En WKMNh c6TP9fLdRO MM43b jW+y8H0dCe ZZtJg rw9SF1swWF PdbXr ZHTlwE6scs zEbMo lLIaoA0jjK hy3QF h3SEueEryl MEtOT keGvVZ4f9d 2DLQs tuyyfWRlYx Vtts+ q3+xcfn08j 3Wh9x 1JrU0xCyLE j86ut fB6Qtnm81w zyXN+ 5q+e3d53cZ 27Ht9 igp3Vthl6f v8G+1 /7Pk9BOeFH NYdLR wDHRsdbxBo vGCmN cOd94Atf1K a12Ou q46buQEww1 2PkXF 2OMvnoQl9X 5xvP4 8xrnjbnquX Jc612 glel7VQc7s lJ3XX mKl0W2Lt70 D55Hk 0jKd3xonds Bz2de 7m5hvu4i87 xn9kr 2KW/E28+7x HvQh+ BI4DWxc27I zzfZt 9V3ys/eb4X fKX+0 f5D/Nv8bAV oB3ID qhQoJx5GVn X1BpK LTPvUDQ9TJ gkXBP PLlMTIE6tK 78w3n C+m4hIMEsV Dtoff XsPAHpA4qs gkPC6 4DfkcyU6DN 0b+Au mDJgpYFryK 9Issi 70SZREmieq MVoxO vw9Geq8sJt MdIY6 9aL7GtbeLK E8R1x 2Pjo+Ob4qc X+izc vWP3eA0qGS H6IuN FeYsuLNZYn L74+B LFJZwlRxLR iTGJL YnvOaGcBs7 00oCl tUunuGzuLu 4Tngd vB2+S78ov5 08kuS bZCq2Ajp1k njyZ4 g8SsxRAmHA UC56n +cjKao5ZT7 3bn/Y iBFe2UDTFh ZhxVE qCdbp6SbJi 8zKHs 5huufDmb8m X7Vw2 FMdRSWXW1W uyu8U 02c/UgMREs l4ymu JEN7VfKza3 90iec c5ag0T13jS Nyyfy ffO/XoFawV 3RW6B bsLZgdKXny vpV0K oxw5bU529b Wj2+x m/NgbWEtWl rfyi0 LiwvfLkuZl 1PkVb IamXw9C5zC 4sVik ZMKwa0sYrb iNoo2 Dv0mo2tqv9 fS3gl G5yzEgoP03 /mbr7 5xg2BeV089 pK0Zb DMoWzPVsxW 4dbr2 1y3BDnWJl7 vH9se pp3pH8RSjI 6XO5f vsSHpK8E2j 7BLsk taGVzZXWVQ tbXqf RIF1YmCL34 7rWbt kzmLj6n3k+ zx2NN Gi9ODDvzcj 2DvzX q/+r1Yf8vQ fZh9O uxqFmF39m/ N+rq5 SaOptOnDfu F+6YG VT62Hns6AG ZotZa 5qz5Y65kKY wcvfe H/L0hJxi8+ nt5ce Aockhx5/m/ jt9cN Hc6jRwQ73u Wf4XW 0HtaOkE+pc 3jnVl wYs5P2pMu3 aeLS3 f7Tm84kZ9/ cf0z1 Gk6vpjLpZt omiE5 9O5p+cPpV1 6unp5 KKxpJk412b JPXOt B1np7GrG7r PnfM+ n7urtD3cr2 fyxC8 6Ics0vRpu8 5HCpc 8B+oOMH+x8 6Bh0G H7rht7vqP9 3uGZ4 3fOKK+5XTV 72vnr aHwA4FpYiZ 4etR1 2/eSLghvcm 7+ehW +m6rm0Lov3 xZcxd 9t+Se0r2K+ 5r3G3 40/fFn6pA3 Puo9O vCluXK6E0x xJz9l //R+vOgh+W HFhM5 N3hNaD1htq ScvP1 18lJrV5gMM p8U/K /9c+8zk2Xe /ePwy DOB4Rz1f4N zTr5t fqL/Y/9LuZ e902P I8ScpaGf7L vFF/c +At623/u5h 3EzO5 77HvKz+Yfu j5GPT w5hdWE33+A /eE8/ cNMI1wh4Ki ZWFtC vNgJN7wdza xNSAw ST2cqow9RF 9Db2x vclNwYWNlL 0Rldm ljZUdyYXkv U3Vid DigSZ9QpJL nZS9I ZWlnaHQgMj kvRml ssVIwS9QlU XRlRG Yle4NlG3Z5 cGUvW E0hvbKdrI9 XaWR0 aCAxODIvQm l0c1B lckNvbXBvb mVudC D8H8fwyaa9 aCAyO D4+v6EbMQU tCnic 7cExAQAAAM Kg/ql nDB+gAAAAA AAeBv tzwx9UDP2v c3RyZ WFtCmVuZG9 iagox LgQuYW4izm o8PC9 Av0rlmhRdY WNlWy 5IB0HOUNNe ZCAxN XKlENKkC5C 1YnR5 tKXkZK6hC1 UvSGV eK1x7LFT2A 0ZpbH Dojf2DxHO0 ZURlY 15eOT1ZqOM lL1hP RstyJ5BkNM Vjb2R bISEobAY1M C9Db2 o1nY4iZIR0 Mi9Db 9kdvdBaQn5 QcmVk nUZ3k3SpCK UvQml 7v5CvswPpq XBvbm FtoYK8Dx7q V2lkd LfzOTfwY5Q NYXNr KSL2UTYaQx 9MZW5 beBnuHPV9P S9Jbn RlcnBvbGF0 ZSB0c mMwL3YkzSD QZXJD x63eq74opr QgOD4 +i1JzLIHgL nja7Z sQPZPQ6cgp 4iRzJ rI8UibhizA lc8El jhPjxEhCjI ormtE 0NvE0IK5ZP gIioE KSiHG3jhrM gDaC7 IuAArIZwyY BZVER UFFBQECURW CqupG a4BZU1W3+x 3fe0e Vipb4F2ciY vf976 fo4r7fFYO/ K+cdn rKk9DGG1FA XkxJX yh6+uf9dv1 8WkV4 VdN2TiN4i3 +Kjn/ 1bW8tgO6R7 DPzUL ++hSmK1nA2 M3PTV muWfXd5V+R pEXyx LZzJc3yTfc RKI/F 40HGIrO2SJ s/tX3 oQqUXWU49g QoUUC TM2ZOtW7YG Li9/t dIUKeCJhMU 6SWVj JOsk1qqs8d PhsOk ntYXck05zH WW8TN N/xVCJ4T14 eoQg8 h+5tMMPe7e C3NAn V13rKdn06g CvKwr 1bO4elk7vx pXtdr uPDgaUV0DA O7kZd 1IwoV2bjbn df/qm 1q/2COEqVQ w9AJD T9Bkj+r2Xe QEUKe AngDmeQGRO eaI2H mnwAxXmEIm n8yU+ GmLQyxMJoM RICHEY+ /81GRPyXmV Mc6PB Fe6kAiPqtv 10uni t0MlLlk4+z l42tj 0CLCnOHQ+R C7nVZ P03+mg+zPc YckZU HooHABCVqa m6F1A Zk/wwgMGA6 zdX/9 ovAkCZx2GQ EdrIQ tDnoZATmDX O/9sY CuENKIkN6r vbX3H XdzcfBQCAL kS/2C Oq8v9o240r Qjjzf 9OFa73pC+d Dg2Pu zIpBhsu1j9 BGgoJ TPWWUU77FC Kdro5 0qicYk93Wp Rofrn DvMIzbVCmC UAZfr r7/2yXVGgx 5OKyA qLCJhGtuH/ Ieteb kiRSMeMGSJ 3a+tB gQxzPGHByN oIiBS Y2MPQ1y8jY sxpCT CVst0+9SUR Of1/h ci/j8nVNIO +GFBj ISdxzEdmz9 lChAh 0KSPy9ZtR+ silcT 1dw8JjdLF+ AUVwp JfdgrL/snz spiaA dxbu6a8j0N eLyJ8 4ufu2uCREL SZawx J7DsRGgoMX PdBak T1hP3Tfzke k0Kcb bgvKLamWHx Ej8wi T4S5o9TrO5 timmy/e 9YX5RA5jth ITUus 2oYREpuPVi +7zTo JzTtFhi3Ux 7zmvz WfNL+BJRc8 UsJFJ Rwjdg+99pt lIghl /PoUcqHI3Z YMG4R e7XfXTFydj 5vvC/ Yrg7p7rfds mbTw1 Grhg2e4ROU /QdLP ZWre7qkceA tP3ZR FVLZr1wfry EwYH6 1N9w/rqDrW VtvfC HHwjTRiGYL SOuEF fWbyOx9XMr Fp9wY D1PJAuwTZG cPl7G pWB5YPcy44 McQmO vcnLR7cYKC diky9 LjFHK+IvPi s678J zoMmHa+2qe RLxdX yIBKYUPyVe ZypdT K+PlugtVa4 /lDSq uQT1Ueze3m TiTeG VjVaMmV0IL ZnYeI wXJNa59Mpm CTONC c4nGWTWEr+ OThsz fIgrPaVNyn QcsEZ GYFeKcoBc6 9Vm9p Oj4UvhVUcJ 5pE45 bWpy5+mR8u E4ASA 3siS33A6Fp aeKTD DYjJ6ZMEUV HcDST DBFdYwOjp6 Ri0aK /fAQUXIDrH ZJSJr 6YbCJg7f2X kOon8 ogmc0xJ/Re 1wSAN dHszxIKwI2 vBrrx mRLvGLvjpm iMzbF gyqjPHLeBL XiSa+ qCfjwgoy7Y WYjBK Z3hOtZ3OwP 91PQQ Pg1oTVGbIf DzTdP j3wxyNLw3k 3b4RA t1FjielSem 6gRjv LlJT6gYHpi 2qrfS gC9FA5LJqQ Od/Gv 3Gb0cYbn4f tvGUh 1VX+WOZrcV jB2Lw CawlGvi3pN vDCHW JMetDvoOmG ohj+l iT2nImMYJu lCRTd NQaS2Yo/FA 1qnI+ +EAyiUx+Nl +MTlS /JzWQXZnDh oJbKa Tpnf16LaBK nrgwz EO4LUQUUnJ Rmggp K/0qmL8MA/ JSSfw B7uQAribdQ vw4AN Xxx7BOM+Es +3zQA 1zDmcOVHpK HpqRg RG/7lERBBO bOGC+ XkJckwjCyO fIk6O /hckTzzPeN rX5xC f9uOJmeouJ pflIg q/iabqOfRq hV02b sKVFHle49g BN8yB CK8twfVzTO GDrtQ DoIRz5iMhT pD1gh M6X4xLIK1f etCzv LPjZ0tgE/s KqHex IiMJFfneEw xOjFz zEXV9TQ/ua b31N0 Y8u4/+VJHB UQqkm /PrW0LCsU8 rg3M5 K53PJSrVaz cDR/a iip96AwqI5 fIQCG 6z5pOT6PDe VVccX /jm4J215AJ QpNhw TyAW1eB34F atNge XpnoQJN5Cz p24/q Cf+5T3n6yc fAsHq tXEWqWe6Kd XAKRc Fz1MMKQ+gz pfSNh N7xw++ne9Z lzB8s jHs46g2iCk vGZN8 zd32tBqN3r xDLK6 2wJ+3TRwJM lOv2i y6Z+6YPd4+ BR+cU XoCWIBuPof Ul6vw jmJX5KOfU+ 11mt3 T2uTuxQ4GT 6FSJC NREFSh01FF mH91/ 5d8FrjeSMC MRjhZ 4vlxORbUdE iBjw9 FqI8z87mOn NTYks JOeuO9HrSx KRq7f oA6DBDKUwz 7SM2i vMlFAC21yF FEBxG XHKrM3cdMM uuRDR 9cCOn4PdsY VSAs3 K/RF5HkTS+ SU1ku K/aS1PlpST B41b6 DOiKT/ZHvJ KEZGV 3WyY1qNISZ ciC7l iP8FNVqAve 6SKvA j/s51n+y7u OJo6D AEXutwR7xx EiKPP JTRSdFEQKv nqZ12 pjx4aUCVpM aNE7b v+EgSUu1Kl qjM0N hritHi3BWA eQK7q wbqrLoW1Yl kJwBH DVBM9cks03 L4dym iwtppOReFm mCen5 FZsPhIJhlz spf7a jHtw8xYtv3 S1E2T Jicjnu8/iv S1dnu krABTp1tie BZHNt olYNiFTzyA PMvW7 dvD+ERhPxq ZGJzg ZrSVeqvU57 iNfgq Zphtt/HMNf NyIKx d2XKCiFj+2 to63Y FJTfNdoTjq QJWpo YQtqgu1OAr b8QIr xav3xxn1lt g9FIe CJvt/5gjJz DnGHs jRWuNsdtgH lfAJG AFPTBfZX2x 3VnVH k8JV2SSQcb CDEoJ F8gJ2AgH6p wIjmj NHLit0cALO kFpXX yd/rarbsTl wvg/c QoKY1knSsk zZy/e 6Q0iqy1nCd JmCIk SUA46jLaot x1EWU KXvqqtLKqe y/lRW cCCqBA7new 1DPqo 2uTbQSouGK 1O9cL tch0avkKUC SHQ9q IiOSPFhETq yi8qr R0dqNbPf/Y wlyYR zX1Qb5xg7B yVaRF 5owCkYePno hNac1 9hTMX9F7sm qgWqU jtfNYxYuPk nHIs5 6NJcC8hCTE cRYgQ 2QRSicYW0J ftHb2 exKnZ5Rm7C fe80N PS8GL4awr9 WNidz NW7t8mBRuP ub5Nd 3NgjEpBwBZ vAwEP DVK5q4/Xb9 2EaGS CUYFT4KFZ5 hYi+R 3QJb5jG1kR c+uvw jxwcptUo3z uel9P InpfF3NjX8 joevz hiYyNzUalN jc0JH XON56zhdLq u4uBh h0TC5oUK2W yR/jz xWuUDnNEgs TyPJk 8/i2/W3ror ZchfW 4YkPu6L5e3 qHMA9 CpOE8Clus5 IiWuu k7/TiugiiU oWWeH llNJ9gw9Ks FNVYe SWSVQowFJU cCO7S EInGiGhJoQ cUaEj BLDYLlPVGj rBYjE vdyDvw34vT 5F6NH uLKkK1CBIq V7qdy Fx83Y52yBV stkty xChB1KKMD1 JDxZ5 QVJQl6YgE0 xt5jU CnhgyWeWNZ osh29 E5pd4Vw8Q+ dsCZY +ZFUaXqXC/ AEJMw 8od4Hg19TN cQvIE tIMLjjTt5w tPoWE XbP9ypCRmI u8s5d q6KYSyb70b 7Zepl 07n/XLPU32 mdRBA iC2Er6RUVI 2GEKk U+Hjq26UgT 6GIGX 1/I8fE5X3o qz3ug ddFk/GlbIa mYjo8 b+zuPavT6k nlOE0 jcTdbDdItB puDzj ODvlE5x05v p4HKF Oe5tVmbPNI Lfyxn w5/v9Wy1B2 zvgiU hwFu9qM0GB 5Urck trcTpzDxvU CKf+1 2wNet5QW/R /cpLA xDbmTfuU5L bmsek kQ6cOKAXxn xTVF2 pW3JbSwL2U eLqA8 QwvLZm1Nis Bisl/ 4bET1/tjcb 5N1pY qtTfeKkDt0 Arax4 r7djZ4LrpJ 2kX7U By7TatCv5w nlMvC eOlDEYi19R L8Eem LulQoWVj3U no4UR laHVg10We5 sVgt0 Wq94UtZdti 9dOwW qhQ1YMTpbF sACQh qo5KuTRvPJ GdcjI IWwCiTL9cx y12d3 WDN1ex3cIL G6wTg HwWXJLe1E+ k25NI wcqRyLRiXS ivrCu adxOPJ4Yx3 Y1SvJ q5UsvVtNqR Nt2Ce yIwaZWdj32 kOYKM qUjDNypTvn OIbX3 exE9jUikYQ +WAOv lkXAleuqFF 8DGNH Pm87BB3amV 2WDCo VIAsIg50lm BZaxP Wd/FubSMc9 clabh 4LPXnxNH4S bsvNI 61wKbr/u9z C6w8s 2SkTP/fEuy 2oDfI 5IMuLS2Es/ NWB7z jHKRWe2lL0 eAMTC rd7pquSgZB K4SMn fU38E0ugF+ abjps UgDS8UE/TK RQFx/ 2L/dwBUjHL 6vQF2 07ziAMZ9Vy 4iJNO DZCA01VIz3 G80Ge XS5Zff8/2P a2tDS lWJ/xxlxpd dZX/z mKIWThMS3s hn9BA ph3X0amX3o VxUeL 2xU8s64FqN A0+V2 pzwh527Hux sCyga 6/7i8QpWEX 3yElJ hx0RcTssLY lob0h HR+9U0YN/B wP+v3 YGwVR3+DANIELLA Uy/zs 4di5GaL9vH Hq83D Y8gKJzViGW fe0Py 4uwsFUHeMP pEFU1 bxVa8wqIYl jriCc xMtLmigbqN Axsem UssPVHc10Q jx/vD QXac3BkEvn kQKTH J4oS2q7oiT Bb5mI /MQmOAGc+m tTx5L gE7Yf3npeL 6aauR uqeHBg82h/ P0ooC Xhg7O1BK26 70T/X As1XLeoA64 fZH1+ WbZcl11zgS xtR1L dBbF8TYcyD 3ZRzk 417rHCzCc3 3CKPp Q9BdQtpjuy x7N8/ xKGcX2zKGS n8eHz /Ph8xEg92n 3lo/B 3m2nPtwPc2 r9nUO vln1/5X76N mbbFN NA9aoZtp9f 1CWMg CKHuMyDm1O Pa+yL DfzSic9JoA d+8B9 +zvHdMsGb3 RnXWq 6Du7lF+oWX 0NfiZ nrD+UVNf4d FTuhH ryjwlLveF9 K4Tve 2n9QTXJPg0 i1945 VN6VSJyN5S +/zNW iIlfvEdEra WtqW2 A+bn78UFMN lrzrs EvbTZ45CFf K/3vA Ri0oZPAgLk IxOqe 2xsXz6H4/9 cQfD/ hqAZv9yG6T YJyWX fJd3utmkRV 2zidc uA4p0my6uf ru1UP N14Mfznj1W pVVNj S2zrd1Fv7W aLjbe B289fi5WrJ Xddyo rsiMFZaR8W GOnch sa3/6FpG3h +RR3/ bC9oAZnJiP geA6f paBTlbA2mJ ZrNA/ 6cvGtt0vmW Xk7YE GZ23OgMDPp QgCym 5oMIkCymRL TvKb0 v+3iLwumfK gOedq ZJgfq9eftO 7/D5b wNz9XDR3zw 3RyZW VyRvJkJQ2z agoxN sJrWK7bqvv 8PC9H mf03xZo5P6 MvVHJ hbnNwYXJlb mN5L0 zpkXA2IS8X IGZhb IAfT4QROBZ zIDAg Uj4+L0Nvbn RlbnR zWzIgMCBSI DE4ID AgUiAzIDAg Ul0vV XhpYA3YXCl lL1Jl y522xyVpsx w8L0N gwF0wJ0WzQ 2U8PC 0AMHNilYv3 UkdCI DEzIDAgUj4 +L1By x9XNFERwDh 9QREY jJ7UohGXbS 0ltYW rjLfJdMI5p Z2VDI U6GdYXuMTl dL0Zv ozG2ZX5BTV JvIDE 6NWAeIm7CL Wx2ID PqWHQqGg7P aTAgM SAwIFIvSGV PYiAy MSAwIFI+Pi 9YT2J rVAI5IUndv W0zND E3VFcwUQDg MCBSL 3RnMzQxODU 5IDIy IDAgUj4+Pj 4vUGF bTD75UPSjK DAgUi 9NZWRpYUJv eFswI DAgNjEyIDc 5Ml0+ PgplbmRvYm oKMTE gMCBvYmoKP DwvS2 lyw5vfGsUn IFIgM jMgMCBSXS9 UeXBl H9YeT7UqV5 NvdW5 0IDIvUGFyZ W50ID yoRJFJXs3S ZW5kb 2JqCjIyIDA gb2Jq Umx2M4hrf4 VwPDw kGr6XnaWbx 3Bhcm UlO4ecA5Gy L0lDQ 8Pii5OaZTR 0IDAg Ul0+Pi9TdW J0eXB sG7Aqou7cM mlsdG SuP9LvIVWa RGVjb 5AmO50vzFP peFsx IDAgMCAxID AgMF0 zHNneDQ8XH 2JqZW I8S3Pkzz5P eXBlI SMeZrMhe8E yY2Vz PDwvUHJvY1 NldFs wYXIGV5Qma HQvSW 0tY4WAO0dj YWdlQ f3IiAWvVZw dL1hP VsztE0B0TD 9pbTM 7ZXr7ZjBvN iAwIF I+Pj4+L0xl bmd0a AAaYK6INj8 4WzAg MCAxODIgMj ldPj5 auWCzIG9We JzTz8 l3OeS0DKDS cMkHA BRTAxUKZW5 kc3Ry ZWFtCmVuZG 9iago wMWNpBG4wn go8PC 8TrBt2PILm Rmxhd GVEZWNvZGU vTGVu F1TlEVL2EE U+PnN 6tzZbgGj0h NVcbW /bOBL+vr9C wOEOD rBh+CJKYvd TmqSt F+ytC6x4b2 vuB8V OCgVx9BCdD ru//o aUJVGyJYty DHQRt GVyv3D9qKm nhmQs 6w+ClFXT2E OFZQv MJIz5jZjJj J41W1 2kuvuADW9b 28T69 w/y6+rLxGL YsVxu A7vXKaw+ar 2dWhj h4t/62br6E LxNLP h0+zVGq96R gRizM SbWdPlpMBr /483F 68r35x0w22 76Q40 XK6hpu4USh sG43c xJTofZiAG7 Jh7RV 7hqEp7EDK/ Rv57N po23czYpwr tZg7Z WJgr4Kz8lm Y82z2 T1yEh0cIb0 bjexv 6nv4uWEY+H Gj/Ln gwPlWNv4FR 7C/bf grRQ4Cw1l8 /+Ys7 x+HA9/yR8m jaw54 6dO/d0FTGA QLP0o HLRs6HThKw fFxWw 0NMdROdg9F CZ7Yd b43XUFubdS LIRS8 yri1A79yrN 8Zk6d KYZTdvjI1F signv KkiC4HADGW G/fQG FrvP94zO84 R7D+9 nHjryU/Plg GUWGe 9//LXxHMCb 1sXbS T2P/ycAPmQ WCe0+ HDfVuQcWTk PIkXK 1gTbSxTZD6 KGx0F 92mXdp38O/ 4Gc52 fSgNunb+HT wizt6 WcUM0cf7xj R67yK XvgG4AmPZd 42ZIg S84B5GS0rp lwPX5 /1lzGPqj9E 8Icy/ ZCE9xlNAzr wjry9 E8Kd2pEoVf c3jZP TBU9nDSAZM yHYiY 4d863bfG9t NMjfB HI4fvgx2m6 N8HVN FwGzVPLLOQ UzvYV pdniFdHlDe P5w93 hoZ5VTLLav xkwAW NR4+sg26GK 8XQRp jmbeTLbLoM S2cyS fISPaqs3ux nn8IW wRAgrfxNqQ 8L4i8 hrCU728hBa zj99W DNwVm8MgWx rZBPM LTLe81vmhr 92aVq 9Q/XbOQ6M9 zKzwi AyM3MwmleZ heXgA LhE98q7gPL bgs66 BMhoiIj9m4 Cc1CY LlaoOjh2pi /YQ7b bC54QDixEz izSzi gI/DSoLMTs k2ofA i3sNBZxH/s iP/ed AX+DbYOXnH q2/7x xqMm93t6++ yB9t5 z3aiEJGga7 cHMEl Ffw8wnlQj9 r5N4w UfHc4ll4II PWTae 9ahLq9W9DO R7brY Tg0DgnWIsx xYTpb +JlpVyME7V KpZgc K+oMeb64Ji AcgDY qHquCXNiIA jS4pR NVKp2emCNX H4gNF woryp+xXlH 87+z+ iYdL4aoiPH YMJOM W/1Zy4rnK2 GMhlr l2Yb7ynDZT QF2si GazbU4whGa B4Dbm TER84ieSfx L+Zi6 nB9BB7gvpv ghwYC NkIK+LF44k S62pb EbT8RYitjO qXmT6 alQK1bfnB3 vf6Sb q//gcVXKxA VDOQN lmJi+qiqrc OSar7 DYEtZHEw8C sH3Pw 6urufFmjve tSCSB PWR0MdrDsI kpp7E vsP9zdJ8hn wcXhz M1J6XC9bhN ruajo 1Yw4TgJYQA ip5Hb iuAG9y8qR/ ifn4b vIrlNIEsma x5JNp QbfiEd2Yan jgRBm uVULaljnq8 +Djhe VBQs+x1pcw mEOGa iMCq6KlKIt e78bv HsajIkvey6 dutRU +nfvbRZlOR 2CBLh 50oJA3tyCt VMlBM 2GamRxRkEd O85Xh +/u+2jmRdT ftHAH FF3QrKXeJf BTxKB 3f5BT3GMLj yhF/Z NEv7HQQR/1 AFIdk gLErIAnsPo tkfOd uU+zd09krk 9P2QG Y4uYhKqz5h o+0Sh AnGmPaiXcN mb5MW LEl0T0DeIf HowLp QZVRuSjUba VgD13 TVbMCFIKmw D0jai r/rpXMn+cy tigK8 eBBAl1x7Ru ZAGEs q4gC2vsE4j uu0Of E7soodM2yM rFF1P IGVQsO6CUd xJ4kl QGc3cRUGVz ezzCC QSfrZFyAbg Z1Sju MiW0eJG0hT +E7tC 1TfT8XPrKa DkM4N QpZOcG+wTt hBBHs KMaXVoF8HW wyxhx Dek/DeYJ2w LBxdA z+aKP1Z0xg TzJDN +8ix1oeJ4w DD0UT rrDhRK1ZQW V88Ll IR00mnzmZ/ NvIJT QHt9iK9fOP ahCzE DR3i0+Po9v c8gT9 Qqx8uPWA6M slKwc dv+GwQ4hNH aH2r9 MYQ6EJ40Y3 ZLTJy rRwYMp6Iiy mWjV4 x0zikslc95 yPcFO 3HMFCwZy4R v2K0D 3314XOcpGF qYuO2 lvCQXbD358 py0Zy bZx95KchsF wWBfv xMbfyOUSRM RAWjM 0tRNiA/T4I 1z1TU r3UKHnu2n5 QqQHA p8gsnmr+zw MxriH 1s8y3rl8KM P00T8 QLxeqyS2oy cdX+/ dkb4cblPrX A5/5+ vWC7Ecm83c qb5m9 zXcv49aweu yi2bC VDfcal5IF8 oq1yp j0fnDSpizm dnjAj fkVAO0m9Z1 0sJIO O9FUWFow2e oFOHs tvpWgQdpl6 noOdp RjxB2teb7v PkTcz 1UfWddjslW fjK22 IqcyfxPJSd +s5xL JMHDJdCYir kOe5t 0ZSZ5OgMXm v/Sfl VcVbiDLFWz YoJfL xKksnYMzG8 OtU9C tWsjAnpiOA OU69T 7Ve9VuOSGj bQA9S N8k/FzOAJY l8PQ2 AX5j6SLdQC zzw0D jqgarqr7D2 tfD8s dGJS6NSiI8 b7W+c EdswhiLeWW QDohd 65nGnY5Wyy rd+46 XZf5pwNAdu 2ToEd 6Dij4wWrtC 0ceXd bTvByI5djA chy2O 0nN6LC9w7V HRPSH LR5Pg2eEOp 1BBHp 7a1dofQgC5 G6SSo lIZRLqiAEE Jpnnm EUxQBJTRAz cyiA/ u6+fxTht2e FtUqw dWvMjlB73q ufq14 dagcCHstKz 49+P2 17JDrBJxq2 5iAG8 VT2h5Ob9n2 XaQPk b11Cf4dVyf /Xm3t KG2UgubxjJ m2jfk bZtPAjZal3 f/pLI zNlHFFTsEF cJEg7 2EBB6JHWgT 6Q6h4 FnTqEOtwd8 ++Rrg iaHj6lZz1n JFsZX g5J1FlzX4m hynUK pwKPZ9xdOy KvUje JNR/lMedUG dq/1P 7nUN2JI6a4 0D067 oQQUCAZwSP sIkIa 0QGkt7gMUj FG1q0 eoeHUr05gP jpnns 5UeIgpjvmO HHXwu /EHpl6JV/n hrM8X qcPIrn7K2F 5Xey6 HGhDKPLeix dHw/s r2iWBXpGtj mh6Bw k5Kh9RLGnp YkVdV 5PV/z6tIsD 34LlR TNYO0/66Kp ICmXA hZlFew2/is aqQeg cLfrpqjSzN VjZI4 XQRgV4B6S9 piUAe 9cPWPREvI7 6qKOQ xRRjCpGDrF 35lqX S8Hi2M28j6 juWpe Sah1JLhpjM iEkov M3dwgoB4Un rkrN3 O5DB86Axi+ Ft2mX d4M6f508JF 9q0fY 8PIg17FOwh Hin6Z YvPF4bSXFS p75dv z09d5QukOa ZlFRS I1Jt9wyBoK zOABe 9cBJmaDu21 ActNt F2M61E+flq OzTr/ KU/KysXp/m yTKM9 UPzYVHJll2 teeiv 24uFT1p7Mt yO7kP Wg2CEeTfMa 7k3vl pa6p09jgMX lcHVQ 02ea/eV2Kj Jkt+Q mYl383fyHt U6ekJ rVlj5r2D++ jXuHX POQCf2DPK6 taWqL g8UP06Ky85 4K+5f DOGYO1t84c UJ/4I 6KZWjXhalu 2Q9pm Hc7AUlKZRI wni2h uFh/Fx2af4 Mg81u zkUdRV3StK heKNr 6r3mn1Oid8 m0SpX q/sI1gD8AK m2DpX GbxXFP69vA DXpXl ZrFO/I2cl9 aP8nt sHu1sSQQn5 SjDFj BbcbdFMpsk 5YhMh E6KXakvAWT ygMQy Ls4BmUDvsU m8e4a VtPTE8vJ4e 6xLa5 EIEOmVQm7e lShK1 ItURcnS3ML vAZrH k16PmQqDDm qpyUH M6FvcgaQTE H1EYt LxM/RGVfKD khCTW zKsZZNKXpF 1TLoZ rku5ILm9rI nADDo zq4QiJHMZg dwTd/ rSNtpYDJ/j 8Es48 3e59VedDUk TSa8e 10menJeGDR kqL6v I/GtRId9K5 dBxbx X+dcoIP1Zf l46ZR CqiKf+9Hk/ yD26S j/lLVaPFfp o04ZG N2q1V5F0bE QqwDp DEcoK0hUtT sRLKa 74ZjPenz6g ZxlD3 y8OtILdGX0 VfsIR 5c3Wz9rwrQ cmT/5 e/QM1EuoGl SotJH DwrGrsgGJv MkEiI 4eX78smgjy GYpgR c0+UyOHRZP Y7USQ lx2pf1e4Do LOCx4 2+DzcY0PLi 1cvpQ sjGaR8k+9C Gy9fH 5xSBEylt1U /lV2i XC4yKTyqhU 8lrr1 mivjmJieLq NeH1P d705u53m2k XmwXk xgxyAIp7pe bmGBy rrNF/tQOUe 4aYDl QCCgaXTffu uSvn1 OxQE48Ug1l 5kOjK yOOLaiBglW +LQPm f+Qroi9qNp Du4Xs PNyuzqEUT/ lL4rT p3LrIg6YAJ upsm2 allXFYVpFL tEKot 0fdVk/QT2T 5ZXa/ XbIXwrqHMh Ds2S5 ikJfayHofF umGsp L7EKXfFaH4 5I2V3 eCrxsY4Ncu zKCZU Xn5X06u5ZP XdW0m 2FSoYO1pJU Q26b7 pXSVstOmdF eGZGU gnHAfpNjLY f1TcH bVq3W/bE2b 3vCdV VmzORd1Dr/ pYXHK tl+mArsCJq 3/z6E kfFs2EF+qU 3+tlj MqA54sVcnH NF64E fGBwwaRK+P UShv4 nUToZKkBjg TXEen o0eNTx2jpQ dVgUC Ez2y5zHzKO rApd3 Rl1GYiZKGU 5HbIJ 5A6VG59mld 3t/Wy BEsfFq20EA kjjYy 9d6UhkrWFV Yl3lD Oyjw2L5/5f /Z9FE KJzPrBFK9b mVhbQ plbmRvYmoK MjEgM CBvYmoKPDw vTmFt DZ2NDY7bZ2 N1YnR 5cGUvVHlwZ TEvVH bdNB9Yn672 L0Jhc 7FXf513W0u lbHZl eIeuAK1JDg xpcXV rA8BnV13gv W5nL1 xpzcDem9fS bmNvZ GluZz4+CmV uZG9i agoxOSAwIG 9iago 2AC2BLM3oN 0hlQm 1rS7RtzEaf ZS9Ue FVhDU9OlLL lL0Zv bnQvQmFzZU ZvbnQ wQJZijqY5w WNhLU YceRVnES5z b2Rpb ezmN0upDN0 zaUVu F34heB2tYv 4KZW5 sm8LpNwBkY DAgb2 GrUcs6Z27f bWUvS LYrux0GjFR 0eXBl T9D5pZYrH4 R5cGU jCt4noC4RS XNlRm 6hcJ8CJPw0 ZXRpY 1AnWN6ft2D pbmcv L1itGM6stV VuY29 peJ3jRs4BQ W5kb2 LkKbZ7ERYw b2JqC el9C2LhmG9 yU3Bh G0XuNVK9pU NlR3J cbM9LpLI3r XBlL0 piBYorG2bi aWdod SEsRY1BzZe 0ZXIv RmxhdGVEZW NvZGU mOXapNM6SD 2JqZW N7Q6gtJGKb IDE4M d9QtMSgRVM yQ29t pD7rBJ78AO gvTGV mD2BjAVM0J j5zdH WxIC5TcGco wTEBA AAAwqD+qWc MH6AA RMTVCJ6J+2 OKjwp lbmRzdHJlY W0KZW 2tt5QpPoV4 IDAgb 4DmWxt1Z2I vbG9y H4SzX2CaA0 lDQ0J kl8IxZDA0V DAgUl 4jM2NyzSuq ZS9Jb KLuRF4HKKv naHQg MjkvRmlsdG VyL0Z sYXRlRGVjb 2RlL1 O5qKAmSB8m amVjd J1QGMDlPCS QYXJt bmr4W6QzkO VtbnM hAZbzA4Ngn G9ycy BvO2JiKWWd Y3Rvc wIzBJ5RaXP zUGVy E77weA7nNS 50IDg +Au7PgWP9k CAxOD KdF96kv3oh MjQgM BSWY1rvpre 0aCA0 ORP9Z7ybnQ VycG9 sYXRlIHRyd WUvQm c8n0ZiyrCq bXBvb jJvxWF6Mx8 zdHJl DQ7JcVvfdd lUVEf Wx2/iJHMm0 bhGWR qatWVzwSWO E+PES ECFweyb1Xb aYjQR jQIaAiKgQN N00/v CqoCANoLsi 4ACsh nDJgFlURFQ UUFAQ KUEHEi0uzF phkbR K07Bl72N3+ t671X d+tW9/3vrC T1vzN EHL0q3h4ne F7s5N LVYxeTElfK Hr65/ 12/XxaRXhC ZXxGd M2Qb0xBi/y wHa6w L0TYM/NQv7 7Ad8L oVS4hn3UVd ZV0/P y03JjHxLSY x9DLe EvNyYkj9Xh Q9VNw nYcSz+1few W5hYY rjjJChRQIs DRNao pj3kpE0+10 hQp4I mExTpJZWNY 96/hq bHqw+Gw6Sj MM15z nwWKXdqB05 94EMH PKNU8xJRmD 7jEck nxMBJv9NfH np8fK nN6TO5kMs4 BjZqb Ecmoqi95wA sqDNB hx3w3xRu7x GppTd rGl51/+qbW r/YI4 AyJGV1KdTY 0GSP6 gQb9JFNf6I eAOZ5 RNK20ozYth fADFe AMueftRR9b YtDLE fkybS2TS2/ zUZE/ KlUDhrs6EE Ht5Oc MHrdRH6rPo Vm8a2 4i2FFos6IM IsKc4 xU6JXgtIg/ Tf6aD 4P3hxrVdUe igcAE JWpqboXUBm T/DCA jKJbJ7g/3N wWIoW qqNOL9zqE5 OehkB OYNc7/2xgC Y5QEq 7KcP4patpk 3Nx8F AIAuRL/YJd zqnyr rXVpCOPN/Y ImLvm 9n03VNC+6Q O02zJ 9fXBFrTwn4 FY8df ed8no1mlbS OmIuP rlixGh+ucO 8wjNt UKYJQBl+uv v/bJd HmTSn3vHHh sImEa 09d9v953sP JFIx4 wKBuaz93CL DHM8Y qWD2wpJCGd tBQbu f3E+zGkJMJ Wy3T7 1JRE5/X+Fy L93Sk jo3k1BEOHe J3HMR 7mQ0KXSKQz METHc AdP2bHYdZc NzRmy 05F5ICBCnz 92Csv +yfOymJoCK O+rnL aq6G0sNgzb qjPaE gQYVJlrDFH sl4xO +0oA81BpFy rInUH KBqWTQpxtu C8otq ZYfESPzCJj hjqXo GWTc0aE87s k/kdP Dsx6lGZ4vi hhESm 83SM4jZRox gOhGW HUiLvOa/NZ 80v4E lFzxSwkUlH CN2D7 86z5DsEQY6 +5iSZ cTlFgwbhF3 YPI48 Citvm+8L9S Cnib1 19rGZtPDUT CLDeP wKFJ3P6y7D eyT2r K9o+0/dlFg wIaPb GDCYTBgfrU 33D+u xXlIY179Az fCNNG YFrdX86IX0 GyxGX u1ddEc6MbK RNZaR 8IE5w+Xsa9 VPhBd 6Dv9mpQI8D Zs4jm 7gFV7WVH2e MUcr4 i8+KzrvwnO gyYdr 4ym7LdY7yH gEphQ /WT1dAe0Kj 4+W6C 1Vrj+UNKqA wno/O WacIUKA1Sk cvNOM 2A6Ntge4sL QZGD3 w38WJF52Pc ekQE5 SMJ59LJbD6 iCs9p T2ZzQmkNiU gV4py oFep4Yf1nC Dtiuo c+BjmkTjlt anLn6 IOw4QfAEGm V0bbt iCJ8q6xXYC Z5jpl mKC9gpMGJZ EV1jA 0RgeZIQkk9 8BBRc gOsdklImvp OZdB3 S2uZN4dtto /KXyZ M2V8HBHM28 ezPEg oFbp5ZfbSF Eu8Yu +OmaIzNsWD KqM8c o6RdnFAn3d yl62J 2TgxZiMEpj uBDMH wlvk4N4JO+ Xegtl bA+KTJX996 aDCAB LHyTdvhECj wS6tq dT12pQWN2T 8EHWx OwO4qyn4LM rQ8Pw dBWk950k/h OPqgC 5jp926LHGU Vf5Y5 mtxWMHYvAt /CIDJ zmg+8MIdYk x60O+ d2VvrOJ3Ek D3Ml0 OqJzAJLW8N V1Lcr S4CQFyre00 QDKJT G93P2sHMO6 nNZBd mcOGglspoi XJ3jx hoBGeuDDNU nY0hU hGhBGaCCkr /3Kof 2Zu5qXK/Az SYoOB 6+0G/DgA1C mjxlF t2Pm7sWKYB MOZw5 UekoempGBE b/uUR ATB3y1YQ7l QlyTC NOX75fLk5+ FyRPP F757ocsRAE uE4+l +Wlal+UiCr +Jpuo 59GqFXTZuI IgwyV /wqdR8pQXh bSCW8 oUzZJQl3Fs ccujx 70fYxCDAD5 tjZsF RSyN11KX8d Z1neT Ef+rxgs2Do IwkV+ g2OFA5SSD4 UNPkV P+4bbwN0Xm y7j/5 UkcFRCqSb8 S1ftI CYTuuDczk7 XZNFl 8KpXaQR7gG +vbk6 eQ/z7qMWvp LbMEr QUSNVVxxf+ ivlXf oFRgBz2QGM pMras wqBPj16O0l C+VEZ LtDCnbj+oJ /7hT2 KKt54IibgF xECst rxDJcApFxi /hg4A D8VNx5V0T8 vHD76 n79hQHIkzL d/margarita vRaH9Rf1ko rrRo+ IHt/EMsrrb An7dN HAkyU6/aLL pn7pg 13v9OP6kIu gJYgG 4+h9SXq/Ce 4o3pM 1KM7BOs1iZ R1SW8 7dcvoVIkJk llVJ3 qmJZTy5H/t zciGC chlcxGOFni +XE5F iQ2NXTWN0M oT2Xf pVOS1PyMyG qu83g ipTApGrt+4 DgYZM tHJ/tIzaJt bFYND 5tR1GYTGAR dJsPS 9GYZ10KOAy sIOHU 26g9ABFdws 9kXhe Psf0YIBH5f +tbZN tpFgHjVvoM 6IpP9 gq9zrEhVW8 ihHZ4 ZgkFyILuWI vwhFe jzuCsIs1HL +znWf 2Gv75ckdDA o+a20 XoNzZBs40n NFJ0U RAq+epnXZ2 OvulA StNJr3Fyh/ 4LMwm pha3jXsC7R G9oan 7AUG6Bnhez CnFSg DoxyQnAEcB BdDrC l3xgjs7LyZ C2mk5 G9AqWQ2feA mw+Eg mGXOyl/tqI qKz2w 9qTxLUTZMm JyOe7 z+U8VQ7e5X 8xciL R0SFCap41l Vg2IV BMFF7k3wl4 8P4RG E/GpkYnOA5 81PJ9 wTjWI1+Cpm mG238 gj610DdlLr thkGt TM1z3gfgaJ lN812 hOOpAlamgx htt63 gdiNvxAitr Krq2O ThAhG5Ou9C m+3/m CMnMOcYeyN Fa42x 81ImV3MkH2 ow9fF RjiXdWdUdv YMzwd BV0CFFFnhJ mhTki 9XvDAiOaNF RGejy IsQmQWldfJ 3+tqt uxOXC+D9w9 9Ynam pa+bRqT66b blq+7 y9kFgUVpCF YLbnJ CO+vHURZQp e+qq0 sqp7L+VFbE ReRIv jG17UM+qja 5NtBK j3VcY39hdz u3qF5 a0ADGcK6ys I5I8W EROrKLyqtD ieYfJ Iu8oXGNeXJ XVKbe OjwXJVpEXm jAKRh 4+ejW5lbQ1 5RJLl nXKCqBapSO 181jF i4+Scciznk Yqczx wkUBxFiBDo EsWuI Yj0l+0dvbO xFtHh fKeu15tZ8m DcpLj BF3NE6I4FC Hd3tw 5ivg0uh58g 2CMSk UIGx4KVR0G Urmrj 3tw9SJrSHc UMkfR F70rUiR9BI cuPSF nWM1o30/C2 OyS+J OZfW85K56P rLMPx atbmOh6/OG JjI3N HzE4TbLxsO Ar3uK CFCO1j9LTm lADd1 NLxHJH+PPF a5QOc 3USgGP8zTb +Lb9b qxgyyjV2kc OFVrc BtqHvqwH6K 9dPo5 +xA9rSk36D v9OK6 YAIUmHM4jr QtbzO qLQxL2Di3R ZJVCj WZmWnE3sBA icaIa EmhBxRoSME sNguU 9UaOsFiMSO mwSe/ 3F2ZcJu8uu ErBjo EtHYWoj6ZM z3Qrj mWMpm9R3TA 55nsJ QYbskPFnlZ QtmPo ZycIZ9jFAN eGDJZ 6M2tbxXj5c R+zll 9xo58sXbt0 kVRpe lzI4XTmoJt 1zReP l4pEeB0cBM 0ILHE 6LqK0+hYQC orul9 cdZ55xsp3R xA1Gi 8vaxol9fQA uf9cs 9WpaJ3GVH6 TsyHw oX5sSPQqJV 4t7Pf ozADoYgZfX 8bTFX TGXglZg5W6 0WT8a VshqZiOjxv 7GIlt 3tG4oO7DBQ xN1sN 1t7Xo7ECDc N6dfy 33iCngcoUG vqJem 88Mct/LGfD n+Hk6 TsPXO+CJSd 8WrR4 j0EGiJocK4 txOnM PG9QIp/7XW ZhprU Ex6L4qgxMW bK0iW rJchbrg5Og /p0sd RN/LFNUXaU jstoy Ttgf3ziIs4 l00Gb g4ooRCsD/h sRPX+ 0Awxg5Kwpw 1N94q PL7TMywAv6 2zIDx hx8/aRftQe TguiF WzvDxKd7Yd KAstC UabhbyM5Ut HEGYJ KnwiejhRGZ tg+TX kN/ikZU6XJ LvYyQ AiQJ743SxK MfU4g rCpSwAJCHF /Zmw1 JuUtP3yAeB +xik9 Pah/LXZ3dc I7h2r qMBAbrBOAy IAZlC orG1Sun7wI ypHIt GJdKK+sK6t q8I8r MlfuyFL4oI QyvFm DNbw37FO2v Su88G x3n4P5qdob SMM3K lO+i8zaqfL 032k1 j1DZ8OC3+W RcCV6 4cRWyST2xU Lntgn emkDZYMKgM 8SsvH TCy3IznO8A 38W5t Aiq8zGvqDo owx3E XrNrtl25hc XApuv +73MLrDyzZ KRM/9 4D3AtnZ3ws kqplT DnZ47GNkGQ BMwR/ qjKe8PtDQj rmCdx X9C2kqFwzP fvRH1 2MD5rcEdil 4gjZN z0DxCNVD/Y v93AF QBsyh5EUkn uhsEF avqAwUj95v 44n3g WBiVeyHN1n zkuKz b/S2rv5LZK Yn/HG XAz60mk/OY xcVjI 6HAELr1KLH 7xXiS YXvTJQR5oi tbSzz YV6dNW8YbG 52HnT oeDKwLKBrr /e3ZK B5WEqNYDgn ThWQ3 UP14GduPHl H71TR g38HA/6/dg bBVHf 4hFVTL/Oze +/oXJ jugserzcML TJEOk 9cen42N/Li 7CwVQ d4w+kQVTXG EBvW6 AZPGOuIJzE y0uaK Ump3WZj0PR p8BEJ /joqPH+8M5 OvPZC yb8HFRoPxH 3ITe7 s1cKWhhHs8 xCY4A Rl6u4SWimC 30CTh t+eiiub9RB 2NE17 XSD8/SigJG eXc7o HRnduRI7jr zlI+m PC3w6idV4X JbOvz S+5eX1QOo5 DJTcp GptbdlHOTT f2QQy BCnXcIo+lP 0aciB 26l/Hs3z+F gKY7a kCZpjs1fP5 mbWlV /OiTvYf3Tg zxsvO 5EW9d3nI0+ WfX/l qcr5EjvN2B TiiVe O/SXUJYyAZ lN1jA O3vl3b1Dfo +xTNz ndSW16qE01 O8d0y wZvdGddaro O7uUX 6hZfQ1+Taqueria sP5RU 1/y0IE5Dss KPCUu 84P8zeQ61h 3xhNg KOYfJR8opP joBVT Fjpj7/M1aI iV+8R 1Lrqo3ahTY 5vLz0 lNU+WvOuw5 qcRTf xAl4r/e8AC PlpUl MXNIrY3t6U 6s23U 3z/1xB8P/O 0IKLq orgxgnJZeQ +rqal 4pYmfVU4rM 31zel /gRlh4RC4/ bY+yO 2/vmaUQ8XB 1uR7Y VPFveiIz7R XzTB/ MDoWr75Dn2 CEpUn CMheE6feQm rf/oW gyoZ3OVn/A jm04H VqldT8Kg+q ccai9 rgZOcv8U/W WkVxz aV4EdOwgY4 H31SY pcM2FSDHvk gwiQL TTFfX3cdL/ 7eIvC 1Y4zP122vm Oitrm t+fiw1AauW G3Qpl bmRzdHJlYW 0KZW5 pf0PdAtHkS DAgb2 AnYsj2U7dr b3VwP IgeCk5DurU uc3Bh xbVbQ5nfFS B0cnV zF9auLkPwb 2UvQ1 MgMTMgMCBS Pj4vQ 29udGVudHN bNCAw IFIgMjYgMC BSIDU yASAORD3Yi XBlL1 NaA5AlIaVh b3VyY 8LoTUquI81 sb3JT tCJrOFb3A5 RlZmF 9uLZTX6ZsU TMgMC IQPr6oDYLy Y1Nld GLmN3AKZxB vVGV4 dLRvAB9bN4 VCIC9 JbWFnZUMgL 0ltYW qjPU7jMo4a dDw8L 1rjPj9nUTv gMCBS F2fjhADfWd AgMCB JH1qdL4GeY jEgMC SHB3rwKZLw IDAgU j4+P9jKIbg lY3Q8 DY12GqU0JK g2MiA yNyAwIFIva W0zND I9WrAjUzEy MCBSP j4+El8BUPW lbnQg MTEgMCBSL0 1lZGl eHu94CyYuE CA2MT IgNzkyXT4+ CmVuZ E1ttxfhXnM wIG9i fff0HI4Jjl 91cDw 4N8OoJCVwf nNwYX WkdiJ3C5WT Wy9JQ 0NCYXNlZCA xNCAw GTTxTt8nR0 VidHl kNB9Yv5NaF 0ZpbH Xted1ScTV3 ZURlY 32oWA1EEDA yaXhb MSAwIDAgMS AwIDB kT5O9iEUnQ E9iam MyjP9Zg2Uf VHlwZ SUdR7Mzd53 1cmNl rvk7U8Rmz7 NTZXR hE1VVXk6HL Xh0L0 wwLRtvQs4M bWFnZ FQeTA5jJ8S JXS9Y P3PbHAS7ML wvaW0 gOIL0AoNhM jUgMC BSPj4+Pi9M ZW5nd GggMjAvQkJ veFsw IDAgMTgyID I5XT4 +v8OvCREwZ nic08 /MNTYxtDAz UHDJB wAUPAMPCmV uZHN0 cmVhbQplbm RvYmo KMjYgMCBvY moKPD wvRmlsdGVy L0ZsY DPnZDFmh6A lL0xl mtx3jSNsXh Q4Pj5 izPVvTD9Pn JzdWW 1v2zYQ/t5f QWDAY AOzzBdRIlv sQxJn e1s2TJ9nA5 sUgyK bzbA4IWnaQ Pn1O8 oWJduRGskt hi1GY wQB5G4b3qC 3ZBC6 A9EHbARCUg KlxZF LHYvbUgqB/ Kifzp hNhEPRIEHv XunHs 4cJYthBLrc tShgm AO6AkuCEQE x+lzP Yl4OpQMJ9z y9GDq OetBizMSZo En3qj MY/ve5+RpM /XiF0 Muv6e0OVp+ XfRQ/ uwdU3AcEsh 2yLgb oqHeFXRPCe DtciI lv/xPeTdZx 2UY+6 FwMaEOs2GU WC2ba c4Kk8atOAy Kvhep 3GXpRzuUhW iyD1w pl0eaZOKbn NeYz2 e5TC2Nx5Ks m8/CV ZpIY2Tc5YS zeVqj njx1L/rQsE OiryQ jEMO4U3jMs dFxs2 aRKrUAWzuS HbRTb ebX9xupxCE DIzH4 NhcHVa9+ax 5qsTY nFSDtQ+FX0 iuai2 TXTKw7Ssvf sEi4H tkZWn5eYZQ O3j48 nadw01H4aO hOflh /rODC4gi4N pR6l/ l7IP5DXJ37 R4dVm XZBydOY/Sx Qy9RH YFjRgJtU3S tH+zX j7o4BAXxh5 UAVzL X+Nv2bhuKE xkfq7 jlbhgo3civ fsE9y mmuDqSoCYd qWQwv Dm7OBn/fl5 NhVP6 q9aqTzhfMb SlgrF amOjI/T9W9 2u1Ms PhoJogVHUw 4zEAH IdiJjmrrbf HKLjW 5AjiTGO5fx mngZe q/iKDVKT8N YQco9 ioK0kfbxms rxnPB +sJLQ0DEMX 5TnXD JNuhno4Ras HR04o n17JBz4gs/ jpSRW evL8VaEdVt NP4ST OGBoOgQFl4 alESC +KuXKYM3bz LtJM7 vPswD3+SVQ u9ima TUH1x3PN/V Mh9sy 3Z6J5ZxIL1 F06Ky gpPyQehlWe Ohixz csUxoftktH snarL S6ffTdvTLz VZBKF FRaMtp4dLG tLNrW CUvlBwttRl NmFqH lHbtXFs7f4 C6UFx apelhr/ZEX ezNVd oKTBdj7xR9 Pe+bq tiNsftvNhz Zzewy d1MuYIu2wd kukdL fW2AY/1fwr JKBHF aR1gXTBBbx LXd1t RXMBSrhluw LDbA8 0EWeTYoOVP /eWM2 Ztx3TBNibJ II8He Mn6gFPTzEM mYRd4 c8WWuMQ6Ih 0qJYo ALxp5qN+oJ VGYjz CcLm380e+I 5rD0A /oTxRACjvk d/w5f BP3GxNeapc eERbI XISz7bF55k Bdi5M zdAoJrqIVM Cilcg zksT+bQMpk cdiVO bhPLAUGoRj hb3Ay JIZo1S6HG5 hmwLz Px5p4jkiUU eYdLS bN8vvyV/f+ sgY0H ko3CzqKGPJ sfajb 7BZPnm0QNT OZSkB e/BvGIey8e plrif lNzbOzq+Ms +2tXc uneSABt4A9 RIuVu JYmfNvbcVd ufVeQ 5aycDPctIq L6Z7m bKChNuUtk4 RAFHa 4yKxka5903 9Ie2/ NA/vx4wol1 XbhHe KPtlJ0qLAE UrRc+ EC+vLawMBE 69Fuu pW9vFbcCZx HG2i7 xAXVqnut6R 6hbDr VbaKaghOlZ KKLBV 6Lt5ZFuUN3 EsJk5 ZXWa844SD1 av90w BpvlFNMuvk v2mJv XusvYkVOkt tfEzI r+aFnFHBmq 46R6u v9O5rgNhsg zci/m kwNx70rvFR Yhsag I/TO68p+J0 qehuG xjgGZkXWOC Q9elw 6QB6ALaEGT yuIan mUV5mgNzw1 iprP/ /68BTEShPh 7YjUu /TmG3IvkC5 ctayi EVA9gBjJBj 8KYs3 JdC0JqrZCi N1ZE1 jMm1Ql1E8m TnQLb 01HpJW1lUX ctjiV CzIHzOD94K O3ACc DM5ckOUZ2O RS+u7 hpQpvjltln sdX8l PklWQXxQaj VsPe9 rScqrn8b49 UtPA9 ks66xyOFf0 pzrZf Lk+Rq5U/JZ DbDGo Wlea6ipFey WxcYK Auf9CzbeEW MiWia Y28y5HVaTD I32ts duyzTwMYnV LDPC1 hTF+/AiR5T eCFbr BNbgnWjmBF twS0J Td7BxvV4XW vXNi9 yoJ7tf766D 9Yl81 pY9pWZvNKh WpUOE i/eiB9YbaG Hw6by Z61Aug8zEL J7EgT EjBl8fbbtJ 17YZF HmiU0czwh9 oxObf ns3MQv/PZn F0y1O ZpLzmow77U rFdSG NSHxxVHdNd 3dUkk fNQ+ekyiWF jEULe 1pIHBqD9BQ rc5Ov L35WdVZbzF bFmMP 4z6COKLLkq uwmiG IHTYtb2aY2 PyxIb XgplbmRzdH JlYW0 IML1gw5DbK jEwID Iev5TkWzi8 Pj4KZ Z8co1JrAws gMCBv YmoKPDwvRG VzdHM gMjggMCBSP j4KZW 8ph3QqAjD5 IDAgb 7MkIkd3B5C bMTcg NACSG6iPTb AzNiA 2MTAgbnVsb F0+Pg plbmRvYmoK MzAgM CBvYmoKPDw vRFsx NyAwIFIvWF laIDM 2IDYxMCBud WxsXT 4+HdXjFZ3u agozM AJmJA5yqqt 8PC9E WnN9KSQeHs 9YWVo gMzYgNjEwI G51bG eqEr4IUY7j b2JqC jXwCEYpj3W qCjw8 D8LqGHerJB BSL1h BTaTnXbR6N TAgbn VsbF0+Pgpl bmRvY moKMzMgMCB vYmoK PDwvRFsxNy AwIFI kWFzmWMD6H DUyNC BudWxsXT4+ CmVuZ H3vmgejKBF wIG9i opu6QG0DTw E3IDA sZx8AGCdgC zYgMT q4CV80dLrc Pj4KZ W0jj6PmFeA 1IDAg w3GeFvb4W0 RbMTc oUZRGB9nRG iAzNi AzMjkgbnVs bF0+P gplbmRvYmo KMzYg MCBvYmoKPD wvRFs xNyAwIFIvW FlaID G4ZGT7SFXo dWxsX T4+CmVuZG9 iagoz HxWgOR3jnj o8PC9 IWhA6AGTzD i9YWV ogMzYgMzQ2 IG51b FavWi7AVF6 kb2Jq BmB8JDWma2 JqCjw 1T8AkSYwoI CBSL1 hZWiAzNiAz NTggb nVsbF0+Pgp lbmRv YmoKMzkgMC BvYmo KPDwvRFsxN yAwIF IvWFlaIDM2 IDYwN yBudWxsXT4 +CmVu XB2rexf4TU AwIG9 ofge9KJ0TS zIzID MuXe4WBZkf MzYgN kp7GU84aBh dPj4K EO2kq3ZdYl QxIDA mg3ZwQww8E 0RbMT lrGGTZN0cJ WiAzN iAzNTggbnV sbF0+ PgplbmRvYm oKNDI gMCBvYmoKP DwvRF syMyAwIFIv WFlaI IU1MGIhNXN udWxs XT4+CmVuZG 9iago 7FnAvSE5rh go8PC 3QAdL9LWHq Ui9YW VogMzYgNTc 5IG51 fBkkWr8TKF 5kb2J sCsT2HHVbw 2JqCj g5W0AyFmQe MCBSL 1hZWiAzNiA 1MTQg bnVsbF0+Pg plbmR vYmoKNDUgM CBvYm oKPDwvRFsx NyAwI FIvWFlaIDQ zIDI5 MSBudWxsXT 4+CmV zKK9cqvh7G iAwIG 0hcej7DD6O WzE3I JUgWr4RROm gMzYg KwF5NR90oG xdPj4 SRM4cc1VrN jQ3ID Ijm3VxPjt3 L0RbM NmfPGJZK6p ZWiAz HwN7XAFlmg VsbF0 +PgplbmRvY moKND ggMCBvYmoK PDwvR FsxNyAwIFI vWFla QHTuHLJ7CA BudWx sXT4+CmVuZ G9iag l7MRFnGY8t ago8P G1BMpA7EKF gUi9Y WVogMzYgMz U4IG5 9bOdmNy0FC W5kb2 JqCjUwIDAg b2JqC gr9Z5MaOVm gMCBS B4kVWhWeFk AzMjk gbnVsbF0+P gplbm RvYmoKNTEg MCBvY moKPDwvRFs xNyAw IFIvWFlaID M2IDM 1OCBudWxsX T4+Cm GmOO5eaje1 MiAwI S4wtwi8RZ2 EWzE3 UQKoKb1EGX ogMzY nBxJ3UT12x GxdPj 2QXA5dz4Ik CjUzI XPka3BnPzq 8L0Rb MTcgMCBSL1 hZWiA uJcX2ESEna nVsbF 0+PgplbmRv YmoKN TQgMCBvYmo KPDwv RFsxNyAwIF IvWFl uAIS4POT2Y CBudW xsXT4+CmVu ZG9ia lg6ZTNuBU7 iago8 LZ2PMlT6SZ AgUi9 YWVogMzYgN TEwIG 76aCedRu3R ZW5kb 4WlGqD2CQK gb2Jq Peh8P0WkWO cgMCB MA1tDNaFcG iA2MT AgbnVsbF0+ Pgplb mRvYmoKNTc gMCBv YmoKPDwvRF syMyA wIFIvWFlaI DM2ID UzNSBudWxs XT4+C nUjDO6zhdz 1OCAw KE3rwuh4VT 9EWzE 6TDMfCq6NL VogMz JvPiHeSK36 bGxdP d7NDJ5wu1G qCjU5 LALif1RlFc w8L0R bMTcgMCBSL 1hZWi P9GtI4IfFx bnVsb F0+PgplbmR vYmoK NjAgMCBvYm oKPDw vRFsxNyAwI FIvWF mvPUQ2UVZ9 NiBud WxsXT4+CmV uZG9i shq4TDAbAG 9iago 4MM3LSoJ6Z DAgUi 9YWVogMzYg Mzg1I R66tRqvJz4 KZW5k r3XhRqAxNI Agb2J dVro6Z3AeI TcgMC QKF6bWNwLr NiAzN TggbnVsbF0 +Pgpl bmRvYmoKNj MgMCB vYmoKPDwvR FsyMy AwIFIvWFla IDM2I DUxNCBudWx sXT4+ EiYqHH8jwi o2NCA lGY5pklx4T C9EWz D7EHGvWs5X WVogM qQsJTD5AS2 1bGxd Ep3DTY1dt3 JqCjY 6CDRfb2BoY jw8L0 RbMjMgMCBS L1hZW hVpUkW0YuJ gbnVs bF0+Pgplbm RvYmo KNjYgMCBvY moKPD wvRFsxNyAw IFIvW DmqWEC6PPS yNCBu dWxsXT4+Cm VuZG9 mxir6TgYtE G9iag z5WH1STdP2 IDAgU l8IBAruWlM gNTUy AP02oCmrYj 4KZW5 as8PdBwV0E DAgb2 OpMzd0Q4Nx MjMgM PYHY6jLRuR zNiA1 MjUgbnVsbF 0+Pgp lbmRvYmoKN jkgMC BvYmoKPDwv RFsyM yAwIFIvWFl aIDM2 IDUzNSBudW xsXT4 +DlHbKK4vu go3MC LcBZ7xhdb9 PC9EW wI5KIGaIt2 YWVog MzYgNjEwIG 51bGx gMt8SMD4qs 2JqCj ufOJTpy6Mc Cjw8L 0RbMTcgMCB SL1hZ YcBiFfH8MT ggbnV sbF0+Pgplb mRvYm oKNzIgMCBv YmoKP DwvRFsxNyA wIFIv ZEybWUU7GJ YxMCB udWxsXT4+C mVuZG 8arpz1JlIh IG9ia rk8CV9SYuO 3IDAg Bc0VNIbcUl YgMzU 8KR13dZurL j4KZW 9fc8WkYvv8 IDAgb 9ZkHwy5N0M bMTcg EYXWV0tGIe AzNiA zNTggbnVsb F0+Pg plbmRvYmoK NzUgM CBvYmoKPDw vRFsx NyAwIFIvWF laIDM 2IDUxMCBud WxsXT 4+HaUyDG8f ago3N mXrAB4hoya 8PC9E WzIzIDAgUi 9YWVo gMzYgNjgwI G51bG hkWf0FSU5i b2JqC mc8EPIqj9E qCjw8 C9QkBKvdLP BSL1h EDlM0YxR1Z DEgbn VsbF0+Pgpl bmRvY moKNzggMCB vYmoK PDwvRFsyMy AwIFI xCQoqSGC9H DUzNS BudWxsXT4+ CmVuZ R3arln7MIM wIG9i sim9ES2YTi IzIDA qGs7IAIsvQ zYgNT V7UB35hXat Pj4KZ L2zw1CfBjf wIDAg y2CuDwt4P7 RbMTc uPFLHI5eXP iAzNi N8GPXjocJy bF0+P gplbmRvYmo KODEg MCBvYmoKPD wvRFs xNyAwIFIvW FlaID I1QQWtTDSq dWxsX T4+CmVuZG9 iago4 TvXlHF5ylj o8PC9 XRiF1GBMfO i9YWV ogMzYgNTEw IG51b PogNv4QPI6 kb2Jq CjgzIDAgb2 JqCjw 0F0YxFWcnH CBSL1 hZWiAzNiA2 MTAgb nVsbF0+Pgp lbmRv YmoKODQgMC BvYmo KPDwvRFsxN yAwIF IvWFlaIDM2 IDIyN CBudWxsXT4 +CmVu AB4jbhb6DO AwIG9 fkhh9KA5SF zE3ID LjBu6NKPoj MzYgN QVySZ69sSe dPj4K GU9tj6KwVn g2IDA hj5QfWzh0H 0RbMT rkIHJAD7vZ WiAzN iAzNDYgbnV sbF0+ PgplbmRvYm oKODc gMCBvYmoKP DwvRF sxNyAwIFIv WFlaI PZ6BXO4UTC udWxs XT4+CmVuZG 9iago aTUJbLU0id go8PC 0QXF2nn1xv XzMwZ FJ7ZYP3ZCB iY2Qt XKQpDc2jRm Q3LWV mKkQyMaL8T zNjZC kgMjkgMCBS KF81N qPyUOR5Ug9 xMTdm LTRlYWUtYT FhMS0 qRwr7PFagU zZmZj EpIDMwIDAg UihfN zD5IYU5VkG tMzFj FY10OWBpSO hlMGM eHLD0Q3GkN mE5MT C1AJMpUTUk IFIoX tN6PTq3SMV lLTZh OTYtNDVhOC 05YzB jSJjeWnC6K jM5ZT UyMikgMzIg MCBSK E18ZRPfSAF 1Yi1k NDViLTRiOG EtOTQ aAD4zLBJ0Q zVmND dkZjEpIDMz IDAgU pmpKuR5ABX wYzIt QFKaGm09Md A4LWI 4OTAtNWJmZ GQxYj liYTEzKSAz NCAwI FIoXzcxOGQ xZjQy GHF9Q5SpMT FjNy1 vYLX5HYK4Z GM0MD B0WMDrAldq MzUgM VNRMY15SUG jMmNj Bf27TBHjRE RiMDk gXwF8SS3vO TUyNG T4W5W2GyNm IDM2I DAgUihfMWN lNDkw YzgtMjZkNy 00MjV aLUt0RLMsA WFlZW L5OJv1MNMm KSAzN yAwIFIoXzF kYTI2 YmUzLTBmMz ktNDk 6Fj92TNT5C TQ2OD xxDgj9OFIz NSkgM zggMCBSKF8 xNTk1 R1BaWn7yEz RkLTQ 3NDEtYWRhY S0yNz MeQkh7A3Y9 Y2YpI DC9YLRtMhf fNjU5 Q4B3SlXwZU MzMS0 0NDYyLTlmM WUtMT ZlMTdmYjYw ODI3K YA4LMTcVXE oXzc3 YWEzNDMwLW UyZDI kHSNmUv4yU 2Y4LT djZThkYmUz MWRhM ykgNDEgMCB SKF8z MjdCNjkxRS 1BNTU 4LTQyRDctQ jlFNS 1ILEOpFnA0 NDA2M DIpIDQyIDA gUihf SJf4FOR6JT ItNjk hLG27ZqLmB ThjZD EtYTVmYWMx OWZhN 1FjTBX8WeU wIFIo IvY4HTTaML gzLTJ kMjMtNDczM i1hOT s6UOXdUYX1 ODMwY oK7HJtcOGF gMCBS LX1gMRVgHR gwYi0 4YWFkLTRkO WUtYj Y8JR04EdQd OTJiN xC3QTDoGYW 1IDAg UihfZGNmYz MyNjI sQwQrTD62X 2YyLW S5VLCvDuL0 N2ZmO TEyYzgyKSA 0NiAw IFIoXzVjYz kwNWV eKZA7SramG GI2MC 09HMCbDDE5 NjNlN GNmMTAwNik gNDcg AMFHBX1rJa FhMDF jXN3zBCP6H TQwM2 WbClM7Rf9x NWM0M TcxYzAyMGI pIDQ4 IDAgUihfZm FhZTk wMWQtMzQxN y00ND MxLTgyODQt MjM2M zZmOWJkYmY 5KSA0 OSAwIFIoX2 NkYTU 5D1QfJCA1G TAtNG UlHL08CDO1 LTkzM BG5XQL8CJW jNykg NTAgMCBSKF 9kNzI 8PTzzEf06X TM2LT QzYjctOWUx My0yO Gh9LXGjCrF zZGUp IDUxIDAgUi hfOWI 2ZJYbL8ZqW Tg3Zi 40TMF5TDPd ODgtN df2URF0Zgc lMmUz PEF7RtDwGK IoXzk oJSD3UcDvT TgzMj OjFFTaAm5t NWYwL WYyMmUwMzZ hY2Q4 MSkgNTMgMC BSKF8 2FmD7UFJ4J C03MW L2ICKjTOAb YjdkN R12EPEoUcN zZmYx FfMwSUM6XH AgUih jSnjbGHS8N DgtND ewXK12C6X1 LTlmM GMtYzgxZDQ 0MjY1 JXx7OED4EX AwIFI oXzQzMWYyM jA5LW N4GothTDso My04N DFmLTIzYzA 2ZGY3 MzljOSkgNT YgMCB DDE2XLdNjM TQxMy 01ODgzLTRD MDMtO RD5JI1JSGv 1MkM3 RTAxMjQpID U3IDA gUihfMGFjO DI0NW NbBSP0HQ83 ZjVkL WJlYmEtYWN jNmQy LGZ2BgTbCK A1OCA aZIKsK9OqG 2U0Ym Q2VFQsH5Wx NDI3Z S46BIBoIEx lMmM3 UKqwESM3Bn kgNTk sZAQVYN4tB zFiMG P9GA6fZkJj LTQ4Y zgtYmViNy0 xZmM5 NcOsVXZ3Hv YpIDY wIDAgUihfN mNhYm EwMDEtMjUz Yi00M WMyLWFlOWI tOGEw RYC4WPM4QL RiKSA 2MSAwIFIoX 2FhMT V3NxYxDKCq NDQtN GPbTE58NAE jLWQx EdTjXbI5NU k2ZCk gNjIgMCBSK F82Nj KcZDBfCp1w MzExL TQwZTYtODU zMS03 OGVlNDViNz FkMTg pIDYzIDAgU ihfYj BsFGW8VLZp MDJkY z19NQHgKEZ 0ZTgt Z4SjTWXfXU dlMmN mMUO3HPStG FIoXz e4RSDtYfK2 LTQ3Z GQtNDQwZi1 iZjEw PXJsEbC0Bz dhZTQ yMCkgNjUgM CBSKF 4iBCSaSfQ6 Yy0yM mNmLTRmODM tODAx Xn7eQmPiOb Q2Njd rCZbhNKZ9G DAgUi qdLZI0PDD4 YTUtM WC1Mo17VmT 0LWJm ZjctNWMxYW NhODV lZuKcADZ0W yAwIF SvF0BpEolw MjdkL TliMTYtNGJ hNC05 MmIyLTVkZD E0NmJ mMzgyYSkgN jggMC QIBK6fHzHf ODRlZ G1rIaNyTVC zNGEt MPR5Oh9pVJ E1OWZ jMGVmYmYpI DY5ID AgUihfNWRj NDYwZ HGmYoM7VH1 0YTE0 LTgwOWUtYj k4ZjM 8AJv7P6RpI SA3MC AwIFIoTUtN Ry0gR HhhB3juiyt lIFN1 bX4ilwglOA cxIDA gUihfNzhjN GE0Yj KjRaPkHI43 NTQ3L ThhZGYtOWU wYTI5 IPd8KAI8SQ A3MiA lZCGyE6E8V zNhYT ElRHU3N2Gz NDhlZ H58ZpAtJFx 5YzA4 ZjNkNzQzYy kgNzM rYJKFTK97E Tk2ZW B4Jc62ODP8 LTQzN WMtOGUxMC0 xMjQ1 KZZ8OWPkIK IpIDc 0IDAgUihfY TQ3Zj YxMDctODcw Ny00N BKaPTg3KSj tZDFh RTTcPrB0RR k5KSA 3NSAwIFIoX 2UzZm JhNzhhLWRl MzMtN OOiPz7aIks hLWQw DIF4ToD4HF JiNCk gNzYgMCBSK F81Nz R9CvEyIs66 ODk4L UO8ERCdLyq 5My03 HGAaC3S5Ed U2NTc bBMp3NNXqF ihfM2 FhOTFjNGQt YzllZ G64EmUsZUD 3NjUt NzIyNGZlOD A1ZGE fFAM2YAReT FIoXz x7SQD9ETBg LTk5Q kItNDVDNS0 4MTk4 IWaUQuB0RU IwOTU xNSkgNzkgM CBSKF 24W0KiPCPd My1mM 4G2HTClSZC tODM3 Ok2iLfD8Bd U2MWU mA7HcVMmgC DAgUi hfYzExZjk0 YmYtM kjjYt04JJU jLWFi OEHuH8I9QG Q1ZjQ 0NMlkHVJ5N SAwIF YwK4RoY4Nw OWMyL WF6LuBiZWY jYS04 YzdhLWRiMm M3YWV iMjgxMSkgO DIgMC RIYN12YER3 NzA3O Q6bDmpeUOT 0ZmQt VDi0KF3xQZ E3MWQ 0AiB0FAAbY DgzID AgUihfYjc0 MTk3Z TctYmUxNy0 0ZWYy LWFmZWItMG ZjZDM 0ZjRlNTFjK SA4NC ZiWEZaN8B9 MzZkY mIzLWNkOWI tNDhl GU13RZznVA ZkOWY 5NTdiNmNkM SkgOD UhEVONLB9j NjM2N OEdUX24INU 4LTRm JiMwKCZ0Ac 1kNTc yNWIyMzYzN TkpID n3LFIzVjnf ZTI0M VR0D3FgOMC zNC00 OTdjLWIzZm QtYTI gVUWyE0PeM jcxKS H4UeMwYUMz Pj4KZ J7rv9QoKzV yIDAg o6SnYnc7O9 Rlc3Q tVJfHYj4rP GlzY2 hhcmdlIFN1 bW1hc nnaP3RnvQa lPGZl JaFhYXG3JU A2OTA wNzMwMDYzM DA2OD AwNjEwMDcy MDA2N zAwNjUwMDI wMDA1 MzAwNzUwMD ZkMDA 2ZDAwNjEwM DcyMD M7HQ6eMNKl ZW50I DggMCBSPj4 KZW5k a8FnHyk7BO Agb2J yWur7A52lD ERhdG UoRDoyMDIw MDQyM jEwMzUxMy0 wNCcw QUezN5DeQM F0aW9 aZMM6VPxQP jIwMj AwNDIyMTAz NTEzK c48CcAyBym vUHJv ZHVjZXIoSW JleCB WZAVuD7JaF XRvci Z8KobgZR1h NS84N MK3KWfHAXX BXVAv HwvhnM3onT ZpZWQ gdXNpbmcga VRleH MqSv9oDiuf YnkgM VQzWFQpPj4 KZW5k e5KyOuoyAK YKMCA 4OQowMDAwM DAwMD CgLEW3MTK5 IGYgC jAwMDAwMDA wMTUg MDAwMDAgbi AKMDA wMDAwMDEwM yAwMD AwMCBuIAow MDAwM YQfLVj1NAI wMDAw HM8bAvDvGL AwMDA zMTQgMDAwM DAgbi AKMDAwMDAw MDM5M CAwMDAwMCB uIAow MDAwMDAwNT I2IDA tAOXeEL1dD jAwMD AwMTkzOTAg MDAwM DAgbiAKMDA wMDAw MDcwNCAwMD AwMCB uIAowMDAwM DAwNj QwIDAwMDAw IG4gC jAwMDAwMTk zNjkg MDAwMDAgbi AKMDA wCAWeDTI7M SAwMD AwMCBuIAow MDAwM IY8OQV2CBJ wMDAw YH4iCxBaYK AwMDA 3NTcgMDAwM DAgbi AKMDAwMDAw MDc5M iAwMDAwMCB uIAow MDAwMDAzND YxIDA bGBCpTP4dH jAwMD LsAHY2JAVj MDAwM DAgbiAKMDA wMDAw Mlq7YdSbXH AwMCB uIAowMDAwM DA4Nj UxIDAwMDAw IG4gC jAwMDAwMTI zMzIg MDAwMDAgbi AKMDA wMDAxMjQzN iAwMD AwMCBuIAow MDAwM NMlKyJ1MUG wMDAw UH0iHfRaYD AwMDg zNjIgMDAwM DAgbi AKMDAwMDAx NzAyN iAwMDAwMCB uIAow MDAwMDEyNT M1IDA nIXVnKG3pB jAwMD PuESD6LJls MDAwM DAgbiAKMDA wMDAx LyF5LcHgBD AwMCB uIAowMDAwM DE3Mz YzIDAwMDAw IG4gC jAwMDAwMjI xOTYg MDAwMDAgbi AKMDA wMDAxOTQyM yAwMD AwMCBuIAow MDAwM ZF0ERaxBDU wMDAw KT7jCqOuNU AwMTk 1MTcgMDAwM DAgbi AKMDAwMDAx OTU2N CAwMDAwMCB uIAow HZWeFWJ9Cg ExIDA xQLSqJK5pC jAwMD BhADt8WFkh MDAwM DAgbiAKMDA wMDAx OTcwNSAwMD AwMCB uIAowMDAwM DE5Nz UyIDAwMDAw IG4gC jAwMDAwMTk 3OTkg MDAwMDAgbi AKMDA qVSKdCXk9Z iAwMD AwMCBuIAow MDAwM XK7INbxJDG wMDAw GE6mEkLcRQ AwMTk 5NDAgMDAwM DAgbi AKMDAwMDAx OTk4N yAwMDAwMCB uIAow MDAwMDIwMD M0IDA uIQJwRW7bW jAwMD AwMjAwODEg MDAwM DAgbiAKMDA wMDAy MDEyOCAwMD AwMCB uIAowMDAwM DIwMT z7JCAiUPHl IG4gC jAwMDAwMjA yMjIg MDAwMDAgbi AKMDA iTIZrMUN3D SAwMD AwMCBuIAow MDAwM ZJpOsY5PNS wMDAw IQ2oSzAlNC AwMjA zNjMgMDAwM DAgbi AKMDAwMDAy MDQxM CAwMDAwMCB uIAow MDAwMDIwND U3IDA jFUUqLJ2aK jAwMD EiRaZ3NESv MDAwM DAgbiAKMDA wMDAy BGZ5AOJuFR AwMCB uIAowMDAwM DIwNT r2EBBiWMQd IG4gC jAwMDAwMjA 2NDUg MDAwMDAgbi AKMDA pVSBxZUN1C iAwMD AwMCBuIAow MDAwM VRzDeL7WXW wMDAw AR0vBzWmML AwMjA 3ODYgMDAwM DAgbi AKMDAwMDAy MDgzM yAwMDAwMCB uIAow MDAwMDIwOD gwIDA aYWRlZF9uY jAwMD BcZvR3Exed MDAwM DAgbiAKMDA wMDAy IHi1WKDnRP AwMCB uIAowMDAwM DIxMD IxIDAwMDAw IG4gC jAwMDAwMjE wNjgg MDAwMDAgbi AKMDA wMDAyMTExN SAwMD AwMCBuIAow MDAwM DIxMTYyIDA wMDAw JI2jIcFbYQ AwMjE yMDkgMDAwM DAgbi AKMDAwMDAy MTI1N iAwMDAwMCB uIAow MDAwMDIxMz AzIDA tITIqXL6eQ jAwMD AwMjEzNTAg MDAwM DAgbiAKMDA wMDAy RAG4PkPnEJ AwMCB uIAowMDAwM DIxND F0PQRyRGWt IG4gC jAwMDAwMjE 0OTEg MDAwMDAgbi AKMDA wMDAyMTUzO CAwMD AwMCBuIAow MDAwM DHwYMk9IHN wMDAw HL7nGzWlQG AwMjE 2MzIgMDAwM DAgbi AKMDAwMDAy MTY3O SAwMDAwMCB uIAow MDAwMDIxNz I2IDA wXNUcEW8bX jAwMD PjRvM0GpYv MDAwM DAgbiAKMDA wMDAy MTgyMCAwMD AwMCB uIAowMDAwM DIxOD Z9CZBoCJSm IG4gC jAwMDAwMjE 5MTQg MDAwMDAgbi AKMDA xGBRgNUs2A SAwMD AwMCBuIAow MDAwM TXhTCP0DER wMDAw UV3qTiXwDC AwMjI wNTUgMDAwM DAgbi AKMDAwMDAy MjEwM iAwMDAwMCB uIAow MDAwMDIyMT Q5IDA dQIPvCL9rO jAwMD AwMjUwNjkg MDAwM DAgbiAKdHJ haWxl ojn1AM0Bsc ZvIDg 5LKXoFi6LT CBbPD B3DNUyHQPf NzU3N TBgZxSzB7E 3MTA2 YjBkMzhjYj cyPjx kZmQwOWYyZ jZiNz YxYjQwOTA1 NTdjY 2VhNWYyMzM wND5d B5Oer2QeNi AwIFI lQ4a0VDO5M T4+Cn W6DBJ0gEOm ZgoyN BY9PGfaNTT PRgo= ID Date Data Source [id number] 08/12/2019 12:12:00 PM EDT [facility] Name Value Range Interpretation Code Description Data Supporting Source(s) Document(s ) Physician No QTFIQu6bSx QKJeL [facility] kq6JLKXPoQ G9iag [facility] 4C0vFNxE7O 5cGUv Center Ga2ntF9LWL NlRm9 oeI9NBOb7Z XRpY2 OmNU2du8Ac bmcvV 4pkZK3rbDO uY29k vZ0jXb7AFX 5kb2J qCjIgMCBvY moKPD wvRmlsdGVy L0ZsY WZtXVWsw1Z lL0xl jvm7qEYmPC 4+c3R yZWFtCnicK +QCAA RwOTgJVL2u c3RyZ WFtCmVuZG9 iagoz VULla4EyTo w8L0Z arCSfan3Ts GF0ZU YgB13nCF8J ZW5nd GggNjk+PnN 0cmVh xDp9jXSW4V rk0o/ INFAwNFAIS eNyCu EyVDAAQkMF I1MLP XNTBQtDPQs jhZBc Oc2YhDAZrN h+Rad yJooYo5yXZ yAXAL QxWy0GKO6a c3RyZ WFtCmVuZG9 iago0 VHItv1WuXg w8L1B gN3LKy6RfX 1VzZU 5vbmUvTmFt ZXMgN SAwIFIvVHl wZS9D YBLnbA2aQ6 91dGx pbmVzIDYgM CBSL1 SqV6BwDPlh MCBSL 1ZpZXdlclB yZWZl rgAwT5XtUA ggMCB KPx2UCN2yh 2JqCj cgMCBvYmoK PDwvS 5xbd3c7SKF gUl0v LCukHY0PZY dlcy9 Pn8ZkzDIsW 0lUWF MwQx5mPlkj Pj4KZ T2fw6OhNkK gMCBv YmoKPDwvQ2 91bnQ oMH8ReTWos CAxMC AwIFIvTGFz dCAxM CAwIFI+Pgp lbmRv YmoKMTEgMC BvYmo ZIy4KP4DFW XNlZC AxMiAwIFJd CmVuZ W6pdhocQpF wIG9i daj8EY0MhF x0ZXI vRmxhdGVEZ WNvZG FvTEVqL4Uq IDI1O TYvTiAzPj5 zdHJl OT5TcDzxsn dUU9k Wh8+9N71Qk hCKlN YnqIUVTQ07 SJEuK jEJEErAkAA iNkRU cERRkaYIMi jggKN DkbEiioUBU bHrBB aT4ZFcNOoB SWStG d+8ee/Nm98 f935r y14H3Armch a6AJD 8gwXCTFgJg AyhWB Is92AAiYdd YAcBD AYXE7lW1LN zs0IW +NFYmRO09E xsmRP 4M713YaC6+ yrTP4 zBAP+flLlZ IjEAU JiM5/L42Vw ZF8k4 PVecJbdPyZ i2NE3 OMErOIlmCM laTc/ LuL4j3zDTW OfMyh LdEy9CU6iZ w5Nwn 3000Rw5LiX AZF+c I+LkyviZjg 3RJhk DGb+SxGXxO NgAok zqy2yIGFFu tY5Io TePw31lU8V jJX/D QX9nFpqJRT 8XOzF ouEiSniBkm XFOGj ZMTi+HPz03 ni8XM BX96oCFaXw iZGVk a2BEVAc/8W RR5bR myIjvYODk4 MG0tb t7u8L4p/Ju S93aW XoR/7hlEH/ jD9ld +tS0RhYEdp dn6h2 9wXWBf0jXY u/2Hz WAvAIqyvnU OfXEe unxeUsTiLG crq9z mCUrEi4awR +jv+p 4Ln2LjpO4W vt3v5 GK597I1cnX xQ143 hiO0dtPJqA 7icPk M5p+H+B8H/ nUeFh H5QS3HH1AC RMumT CBMlrVbyBO IBZlC gpD0f4h0P7 P+pNm 5lona+BHQl lgCpS ThGW8mUIxe ESAJe 7Xa9I57V5Q [place]/nN a8TZiM90w5 L+fVe 3NV9YQpV/j mNHRD E0TtVI0Qn5 WgI0I ABFQAPqQBv oAxPA BLbAEbgAD+ ADAkE oiARxYDHgg hSQAU QgFxSAtaAY lIKtY CeoBnWgETS DNnAY yZYo4HU9Zv 6By2A E0WRMQT5cj CnwCs xAEISFyBAV Uod0I EPIHLKFWJA b5AMF QxFQHJQIJU NCSAI VQOugUqgcq obqoW boW+godBq6 AA1Dt 5QCvQD7IUr HIzAJ psFasBFsBb NgTzg IjoQXwcnwM jgfLo G5vPRvZ7bM 7oRPw 1iqZAcOJ2V nEYAQ ETqiizARFs JGQpF 4JAkRIauQE qQCaU RvhX7yB2iC SJGny FsUBkVFMVB MlAvK CxRA6pJBrX ahNqO qUQdQnag+1 FXUKG hS6VNBVpxk zdHO6 OO6EBnKiVm uRleg s4Az4FReKv Q4+hU Vn3FkoVKNM H9MHC YVswKzGbMb 0445h RnGjGGmsVi sOtYc 64oNxXKwYm wxtgp 6HMmThyP3m n2DI+ P2mTH1M1d6 Togrx FXgWnAncFd wE7gZ vBLeEO+MD8 Xz8Mv xZfhGfA9+C D+Suzy SaO6xNsqFW QiphL zDJ3LP0D7y LeEEk EvWITsRwoo C4hlh UBRF9Sahoa iVRSG YkNimBJCFt Ie0nn VDeJl2dd5v GZA9y EYlP3nGfVk 8h3ye /UaAqWCoEK PAUVi vUKHQqXFF4 pohXN AC8NYayaO8 YoXhE cUjxqRJeyU iJrcR YWzGVa2QW2 YbStD OM6RK5VElI ebNyi /FJ9CyPCWH I4kPh UYoo+yhnKG NUhKp NJDA73NEBM upZ6j gNQzOmBdBS aaW0b 2iDtCkVioq dSrRK nkqNynEVKR 2hG9E I6Pr8Uddw+ nX6O1 HcCJ6Wqlzc 1TbVK 5yf5sdnzug x1UrU 5fWR4W9hL6 R91NP Lh2m6nv/TQ GmYaY Oi5Voc2Bpc 8XQOb Z4MKK8bihd H59zW kVLWWVU7A8 ju0xz CtLwM3yJDj tKq0j mc2OLfte6r naq9Q /lT6hJBLzw NR6Cz Q+ekzmOGCs OTkc6 tYSSmppO5f f11Jb y0ryZ4B6cV elF6h Uvxmlw5Hom s/ST9 Hfq9+lMGOg YhBgU EoZi3HpCXJ MMUw1 2G/YavjYyN Yow2G HUZPTJWMw4 wzjdu Ma2bRuGhH5 lm0mB yzRRjyjJNM 91tet jSXgE9PeTn MRsyh 68okRKpy62 HLdAW ThZCiwaLG0 wS05O Oc4fwhfeSA YMtCy 04KQ6JTGjB W22z6 zj5eM4dnY5 daH3H aiCHqHSi22 Pzq62 TGwk4nuzoE PJc37 za22aNoZ4b bse32 1O9549tP7P /wb7X /lORk6SLgm 1h0tH EGtIw9xMLw 8YKY2 1abOzJH0z7 rXY65 yDZ0dFZ8Tf Y+RcX fairD0jQc6 nG8/j hSbePynw0b lzrXa ArEAuMi02l Unddd 457g/sDD30 PnkeT w8JumHmc46 HPZ17 WXiKvDq/Xb Gf2Sv Xix5Mgz8aW e9CH4 hPlU+1z31f PN9m3 6RyIe48ymr 8pf7R /kP82/xsBW gHcgO aAqUDHwJWB fUGko GCR1AKMyy3 CRcE9 NBAFGMj8dA vzDec A01lDuwOU5 O2h98 APw2cJrF+O CQ8Lr wl/GGETURD Rv4C6 YMmClgWvIr 0iyyL nBVbJPaH7m xWjE6 Kbo1/HeMeU x0hjr UTOvx1H50j TxHXH Y+Bt77hjvi f6LNy 9aStIFcD67 foi40 A8hw5w2hjt vvj4E sUlnCVHEtG JMYkt sx61gWdVnz TSgKW 2I7u1cO1q1 hOeB2 8Qg1Kvns/n TyS5J uMdWTi3Dz5 ePJni tvQN0fBJYx QLnqf 3u9qumb2AB duf9i t2Lk78Y9cX mHFUS BGmCfsytTP zMoez eYEJt4ECxP ftXDY xCgQ4ADQXa 7K7xT TJd8RPqRPv XjKa4 5ZTk/MmNzr 3SJ5y yhQbCQdW0n 3LJ/J 9879egVrBX dFboF yeewL9rgnA +lXQq qWrelfrry5 aPb7G t68CoXM3lK t/KLQ vSP78fB2oO U+RVt EtqnA5bttt ixWKR mO5QcehyQw I2ijY RYqt5jkuXH 9LeCU HE78YF9wst +Zuvv tDeDnXK80f krRls OsguV6RuGd h1uvb 3LcdKFcuzy 8f2x6 ngRBMM4bAv pc7l+ n1ZFDTDbtE sEuyS 1oZXNldZVC 1tep9 cBe7QH3LZV utZu2 p7xq5fkyh6 PHY01 vtQXhm751s YO/Ne r/6zgajhop 9mH05 +j77Gtk5h1 36url Lv1w94aT+4 X7pgY dEft8Dby1p mi1lr XCrpHXyYML By994 b3Zcpnkqn6 e3lx4 ChySHHn+b+ O31w0 GHe4+wjrR9 Z/hdb Pv0l1ND0gb eOdWV 0iXtjusePh p4tLf Ofjndn5fu2 x/TPV FoSBV73PaG iaITn 07mn5w+lXX q6enk 01Z2V9qffN k9c60 vvG/wbNDZ8 +d8z5 3p9+w/ed71 /LELz kpDKnLe1Qk kcKlz bL6b5nj1By oGHQY 5ejxStw81W e4Znj k29of2ygCP va+eu jGw4wGA/JH h61HX d13LrDK0wk v56Fb 3asd9o84F5 FlzF3 828V4HiQp3 mvcbf tL5fD7lKC9 +6j06 4JAFepjo6S EnP2X /6V870DU9W cWEzk BnG0gAimH1 Jy8/X vh4/EnWk5m nxT8r /2f6aSILd9 94/DI wFTs1/lz0/ NOvm1 +ov9j/0u5l 73TY9 Z6KVv0qBjt 8UX9z 4C3rbf+7mH cTM7n pro0aX3c+6 PkY9P Vpv1wTs93C 94Tz+ wplbmRzdHJ lYW0K TX5in3RaMi EzIDA yc6WvWsq7J 0NvbG 3aX1MhG0Ka RGV2a SRkA7FxyE0 IZWln aHQgMjkvU3 VidHl wJQ6LkKCxG S9GaW r4YLNvBumz dGVEZ WNvZGUvVHl wZS9Y T8TtTUN3S4 dpZHR aZWX5Ad8Vw XRzUG PcK40rxT2p ZW50I IzqYGHuR2A oIDI4 Hx0loLWzVL 0KeJz twTEBAAAAw qD+qW kNQ7BFOWLJ AB4G+ 2OKjwplbmR zdHJl WK1BNF5ef6 JqCjE 9JLNjm2QtC jw8L0 PgeT3cC7Ji Y2VbL 8iWD3Tdq0T kIDEy PJGmQx7dBX VpZ2h 7TQR4U6Z3Z nR5cG GyDM7hH2Ee Rmlsd IFsI6NrUEN lRGVj c7DdH1OvW1 9kZVB ycm7qOPgrQ 29sdW 1ucyAxODIv Q29sb 3JzIDMvUHJ lZGlj qX2eOBU7H0 JpdHN KJWIUe22sa 25lbn QgOD4+L1R5 cGUvW M4gnrXbbU2 XaWR0 aCAxODIvU0 1hc2s gMTMgMCBSL 0JpdH TMJAQCv67r b25lb vSeZV0IltR lcnBv lSV0NAS6xy VlL0x ckmw0nBG9J DQ1Pj 5zkQEkGV5Q eNrtm wlUVEfWx2/ iJHMm 0bhGWRqatW VzwSW OE+PESEKMi iua0T gaYjQRjQIa AiKgQ NN00/vCqoC ANoLs i3UCvvxQCx FlURF QUUFAQJRFY Kq6ka JjlpeEG97I d97R4 +t671Xd+tW 9/3vr UK6gbCMWU5 r5x2e gM8n2HWTUc eTElf KHr65/12/X xaRXh BYLaPuX5Gs 4qOf/ qjQv8mV0ZW M/NQv 15Pp0ZsUO3 zc9NW mZV0/Ps75G kRfLF Si1YQvPjAj Eoj8X lH4DTqiSeD z+1fe aA4kKNkdgH ChRQI vLQEnugv7d uL3+1 1oYd3WkJrD pJZWN Y96/hqbHqw +Gw6S aHC61semJJ ZbxM0 394EMHUHTZ 6hCDy Z4kHlpbqRM Lc0Cd Dph0mKvL5Y K8rCv 3BjZqbHmam le12v OgwVYEgt8r 7uRl3 hGppTdrGl5 1/+qb Wr/BO1HxWQ D0AkN S5NXV0xPe9 ARQp4 PkFCR4UJA2 5ojYe afADFeYQia fzJT4 aYtDLEwmgx I5ID7 /zUZE/JeZU xzo8E GXj3KbLBwo XS6eJ mTe4r28v5T Xja2P DKpLl5eP3Z LudVk /Lt5iC4E7w hyRlQ eigcAEJWpq boXUB mT/DCAwYDr N1f/3 NwWIoWbsRY R2shC 0OehkBOYNc 7/2xg OE8ZHh0BlN 9tfcd i8Tf3PSYGy RL/YJ dzqnyrrXVp COPN/ UEpZtv5o47 SOLOMON+6 HR40jE7wTT EaCgk 0MR5gben8t p2ujn WOmIuPrlix Gh+uc E2xuCxDPVK QBl+u vv/bJdUaDH k4rIC qoPeIx35o4 h615u OTSZk6gTNh dr60G TVDO2NrMQ8 giIFJ zzBIjbl0Z+ zGkJM PVe9L27GPK 5/X+F xL20Ezpy7b 4YUGM iM5KIC6dP3 UKECH sMETHcGgT6 yKVxP bOsYzd72P6 BRXCk l92Csv+yfO ymJoC KO+dtAet4Q 4vInz dqjPaEgQYV JlrDF Hsl4xO+0cM 90FqQ jrInUHKBqW TQpxt fQ9zzvYNgU SPzCJ jhjqXoLIHh 1rD97 lk/kdPRud0 hNS6z tywSOr25UP 7vNOg ygOhGWHUiL vOa/N H52o4XmRao SwkUl NWL5V337y2 UiCGX 8+5iSZcTlF gwbhF 5DQO20Dyjb m+8L9 YDuop931oU ZtPDU TCLDePtYJL 9B0s8 MbxV2tA8p+ 0/dlF gwIaPbGDCY TBgfr U33D+uoOtZ W298I cfCNNGIZgt I64QW 4JwmDAc1yl Wn3Bh VXXGtG5ZH0 w+Xsa 4CXiPv2Cc5 xxCY6 ZBo4dx5wNP 2KTL0 fHPip6i8+K zrvwn ZihUjr3uz0 EvF1f IgEphQ/JV5 nKl1M r4+E7T9Arc +UNKq Awno/OKnmN OJN4Y urdUAV5P3D mdh4j LIMZG7k55B JM40K hmkSK8AVR8 5OGzN 2kQx7yN2Qg BywRk CnZ1hdlYsw 1Wb2k SDtiuoc+Bj mkTjl vozYo7MVv8 TgBID jK8vwnwJL4 p4pMM SJ6bztdLG9 dwNJM WPL8eN4Mkk GLRor 98BBRcgOsd klImv gLJkV7W7xQ Q6ifx u/PMkOP6W9 XBIA1 0ezPEgrAja 8GuvG ZEu8Yu+Joy IzNsW YVgC9rn1Pj eJJr6 wab33V4Kno ZiMEp juBDMHhedn 3U9BA +XegtlbA+Q PNN09 3aDCABLHyT dvhEC kbM2yivB12 qBGO8 C9YKDoGyD0 aqt9L NeW6VwyKMu 538a/ pESjqY1xf5 28ZSH KAa8L8cjaJ MHYvA t/CIDJzmg+ 8MIdY kx60O+g6Ya iGP6V gR3Ym1VjGn UJFN1 HB5YyoX9OY Wqcj7 8EQZJXW24D 4xOVL 8nNZBdmcOG glspo mAJ5jyvfWP euDDN NlU0cFkCfH GaCCk r/5Byc7Aj7 lJJ/A zSYoOB6+0G /DgA1 CnrdjEq7Fk 7fNAD LORMk8Jmog empGB Eb/uUREEE5 s4YL5 eQlyTCMLI5 8iTo7 +XwOIEG294 tfnEK TuE4+l+Wla l+UiC r+Gjvw96Bl FXTZu IIgwyV/rosales E3zIE tkTLK2nUuS YOu1A ianbum83iU kPWCE 3tjZsFZXeR 60LO8 bP0hdZGc+w qod7E iIwkV+d4TD E6MXO 9UNPkVP+5p vfU3R jy7j/5UkcF RCqSb 4D4ibKKBGp uDczk 7VWTCp0PkT wNH9r O+vbk6eQ/h 8hAIb bLbMErQUSN VVxxf +ivlXfrUAx Ck2HB SpMrasznYN q02B5 nC+VEZLtDC nbj+o J/6aG4NHl3 8Cwer AxECstrxDJ cApFx i/en1SB8PT l9I2E 2lDA77o56r XMHyy Ad/janaImW 8Zk3y yrrRo+IHt/ EMsrr jMj9jSJDdr U6/aL Eir9jj58z9 FH5xR egJYgG4+h9 SXq/C d7w2zA6DK0 XWa3d BE7MF53pst oVIkJ gzpJG5wwZS Yf3X/ tzciGCchlc xGOFn i+XC4BzA3R IGPD1 TvH3EdlNHC 1NiSx Pkj21chjMQ pGrt+ 4DgYZMtHJ/ tIzaJ irJJWW3yP6 UQHEY QkLnEA7AHI 65ENH ouAQHQ69y2 VICzc n3fEjaNgm1 JTWS4 r+tbZNtpFg HjVvo A5QhG6cr8r oRkZX 6sdHR2EbaJ yILuW IvwhFekduL pIq8C P+uoUr3Uh2 4mjoM Io+v18LfOv SIo88 xZTF2WXJq+ epnXZ 2OvulAYmIF o0Ttu /4ANcfekr9 qMzQ2 KO8tcg0OHD 5Aruq aCnFSgDoxy QnAEc TWmDmBq2si vh3Ka TR1if8O5Eq YJ6fk Vmw+EgmGXO yl/tq AbSn5t8sPt LUTZM cGfPo7q+K9 LV2e6 U3rkoKC4UF Fkc22 gWi3XVVOHX 8y9bt 43F0DWX/Gp kYnOA 641HS1zLcQ I1+Cp bdN725tq06 3IgrG ctyxWhHC1f 2jrdg HoJ656jMWr Alamg vfoq27pvqG vxAit wUwq7PQyBw D0Uh4 Im+3/mCMnM OcYey DEz00f91Yf V8AkY 2wn8nACigP dWdUd vXUtqqNR3H IMSgk QdwYhk9IsD AiOaN FRGejyIsQm QWldf J3+tqtuxOX C+D9w 99Ynampa+r NnL97 cblq+7q8yI mYIiR EYLbnJCO+v HURZQ pe+yb9kyq1 L+VFb VBgWMnjV25 UM+qj x9OkBAf1Mc U71wu zr8mG1t5GQ IdD2o wD1O8QHUSs KLyqt CsyKfIRf2y CXJhG AXVKbeOjwX JVpEX mjAKRh4+ei E1pzX 15RJLlnXKC qBapS M646bBu9+S ccizn kYqczxwkUB xFiBD fZmIcNLt4g +0dvb OxFtHhmTkl 97zQ0 kCjvCtOS7F Y2J3M DDm1lj4irr 5vk13 r0GLVpPCOk 8DAQ8 INtamz1gr1 YRoZI iAAqiZN08f FiL5H YcuPSFfXM5 z66/C 2OyS+JCLfO 56X09 CrLMPxatbm Oh6/O QKkD4OPxY9 NzQkd RCt4jGRKUS 7i4GG azKHc0OGuM JH+PP Pe6IYz1TSd PI8mT z+Yr3fuhnc lyF9b hOFVrcHyjS ocwD0 Z9dPo5+iX0 iJa66 Wy0GM5OVQS hZZ4e eQtbzOnRBw U1Vh5 JZJVCjAUlR wI7tI QicaIaEmhB xRoSM NdUdlI9MlB sFiMS OmwSe/3R5P kXo0d oErBjoEkOV Xup3I Gg7FlplYPo y2S3K M70wePKRto kPFnl ZQtmPoWcbX G3mNQ PlTIFT2V8u iyHb0 zR+lqr4gz5 2wJlj 6hEVptowK3 AQkzD v9hNiIr8uJ xC8gT E2DXGY6DlR 0+hYQ Cqiqk5zoP1 7yzl3 VbS9Pr2lnw tl6mX Kml6pj5Xbd Z1EEB 4RpcMjiY8m YYQqR H0z1NikiQC oYgZf Z8bJWBTHAu rPe6B 38PO2iMyyi ZiOjx c8PGcj7wE0 eU4TS VjL0wJ4f9K m4POM rB7oah11bF ngcoU TkaWdn90Fd t/LGf Dn+Jt4OjJX O+CJS j2OiP0f1NX lStyS 7fgEpGAZ2U Ip/7X JGlneBVf8J 9yksD ItX6qXhSkm uax6S c/p0sdRN/L FNUXa UjstoyUvxh 4uoDw 4o82Tpf8px GKyX/ hsRPX+2Nxv k3Wli d1W46gOZ9G CtrHh 26qJJurd2/ aRftQ eTguiFKbvG eUy8K tKAstCLjsk vwR6Z aHEGYJKnwi ejhRG Ztg+TXkN/a xWC3R GLvYyQNqDL 107Ba KNrP7iuYiS wAJCH F/Oqx1BqVg Z1yMh M+ljn1Pco/ LXZ3d dS2d7iyUIH brBOA yIAZlCvlD6 Tbk0j BypHItGJdK K+sK6 zj0M4vByig jVK8m PQyvFmIFow 23YJ5 aDx03Nb7i7 Q5goy mRVF9WoI+c 4htff L128f3w4VI 5YA6+ BBmQL90qLH wMY0c KLntgnemkD ZYMKg J5JyrIRIr8 FlrE9 N91F3cPcr2 yVpuH kfbj8KChSk uy80j rXApuv+73M LrDyz ZKRM/98S7L agN8j ckqplTQmD8 1YHvO MBMwR/akHh 4AxMJ ersUzwR8Y9 rhIye JvvAA54XP5 puOmx c5znDTt9Ay FAXH/ El17EWQNgj q9AXb zuhsEFbceX iIk05 j52h4aKJiN bzQZ5 gzkuKzb/Y9 ra0NK VYn/HGXGl1 1lf/O GvrKaQ8MMY Gf0EC K8pXyOVCmV XFR4v gsbAllCC1a DT5Xb Q46QaByoSJ wLKBr r/a4DYW7ZY fISUl sNzYU0OI32 WhvSE vY32UCi55C A/6/d lhASTz3hRX TL/Oz e+/oXJjugs erzcM BLVGOo5umd 97Q/L o2YwURo0b+ kQVTX WQXsQ0KHWL OuIJz Zs6adYZkh9 DGx6Z Wp8BEJ/joq PH+8M 6WjONIvb2W RApMd W4RBq6w1qQ FvmYj 9zSE6PVt9u 1PHku T88JXvw+oz ppq5G T6MF55GMP0 /SigJ PlIs1eAJnm vRP9c azlI+mUX3t 9kfX4 PJbOvzS+0r G1HUt 0DJTcpGptb dlHOT Lx7QOcCKgN software program manager+l R5gegU91t/ Hs3z+ McKR3eoRKt fx4fP 8mbWlV/XuL eWj8H vvkmeU2IW5 v2dQ6 +WfX/lfvo2 ZtsU0 JTiiVeO/SX UJYyA BdU7nUK9fw 9r7Is a+xTNzlnNF 37wH3 2H4w2cxYnb Gddar oE9cJU2rSp Q1+Jm cmV6ZY8/h0 VO6Ee jDQTKr25V2 rhO97 h7rhNpMQVw LX3jt FjoBVTFjpj 7/M1a IiV+8R0Stp a2pbY H0yZs4jOF+ WvOuw 0ncMFkrCo4 r/e8A CPlpUlKBLE jE6p7 D1y52K7l/1 xB8P/ Q3UOJjejnh gnJZe Q+iqus3zQa bOJ1z M31zel/vCq u7VQ8 /bY+yO2/ce lVU2N P6oY7WJJQp ouNt5 XXzTB/UWkV d13Kh 6CEpUnJXos Y6dyG xrf/oWkbeH 5FHf/ Ppu95AMlif B4Dp+ nipid9prCW ms0D/ LAiJyekK4A eTtgQ 9U59MKzzU9 CALKb mgwiQLKZEt O8pvS /5gXrA7Z7h A552o tOitrmt+sn v8Plv TU6ZalvyVf dHJlY K6VAG6or6J qCjE1 VHDln3YxVi w8L0d bj0RwFBdjF y9Ucm Rgl3YoxbTc Y3kvS DP8ntZrH3t gZmFs s5CgJ5SkBA EgMCB MMx0lC50ln GVudH NbMiAwIFIg MTYgM CBSIDMgMCB SXS9U xXVdT7HhD6 UvUmV ma4GoE0LvV DwvQ2 3gf0JXxQEo ZTw8L 3UiVfI5tSE SR0Ig MTEgMCBSPj 4vUHJ fP1KvwFDqE 1BERi QqWTP9bFFn SW1hZ 9WODC7IsFY nZUMg D3svFRtfVH 0vRm9 dqYk3H1lmH m8gMT xkNHYET1fz bHYgM VuaORAUV2t pMCAx CICsTj8DUT 9iIDE 6KUXxBd0+L 1hPYm saM9X7NU89 ZzEwN qZ6ZxClYFK wIFIv iF6dGBEeVH EgMTQ gMCBSPj4+P i9QYX JlbnQgOSAw IFIvT KJziAZMg1f bMCAw SYKtTaG6PA JdPj4 KGT1ys8TvB jkgMC BvYmoKPDwv S2lkc 1sxNSAwIFJ dL1R5 cGUvUGFnZX MvQ29 4gqPxTR0ZN XJlbn QgNyAwIFI+ Pgplb mRvYmoKMjA gMCBv YmoKPDwvR3 JvdXA 7TW9VF2TuK W5zcG EpHB5vcV4Y U1svS UNDQmFzZWQ gMTIg MCBSXT4+L1 N1YnR 9zPHpZo3om S9GaW q6QTQmGwco dGVEZ WNvZGUvTWF 0cml4 WzEgMCAwID EgMCA gWX1PmMRdQ 1hPYm gtL9HuDp2g bVR5c LKiFW2CBEL vdXJj SAF9LP5Rky 9jU2V 6Pq3OKSDxL GV4dC 9JbWFnZUMv SW1hZ 3VRZ5lnDXk lSV0v WU9oghTcaQ w8L2l eVSM4HXnjD DE0ID AgUj4+Pj4v TGVuZ 4NlOKTgB7M Cb3hb DKKsKYT1Ls AyOV0 +FwW3dhSow Qp4nN UOhCM1YHBk NFRwy QcAFBADCgp lbmRz sSMcPT7SOW 5kb2J vIlZ2GGSom 2JqCj t7Y1RadZSx ci9Gb RU1JGMmM96 kZS9M DI5flCahIR QzND4 +v8CvARUrL nicvV yHj1x1XE9g r9DMv ZiZYiTZkq3 2iQJt mFslX80f5i 43N65 TszlZAsL8g 39/a4 NeF2HI8A8h k1iyJ F017776vyQ 6hohP EYZfKpArbI Y8ym3 fGbM2OGw47 ieCOR YOGmbotzfF cDWYI Jvd1HKJueZ BxIGh 1RAQvC5I0+ YJ9W7 khwzB1+DRz MOoK2 zHcTEmKFj9 ZU1mv 7zr/I2CX98 gNAre wUJ2kobMv1 JDmXC ZE43CaRQ9y gNwdR fNx4EoJAZb E1+t3 4+ibJfmHdS lno+s Chz3dlbiF4 R53K8 FOIQR2/61C Hc3A+ 0MFCH2wSbl jQyTf Pn400fyLzW axog/ c3BWuFqeN3 dvNWD /bjb+rDvzW mjmsL BIzRkMQ9At hYl8h LptPO7W4yB jTZ6l BoHjv6K378 Eutr5 5TEZEmZBN0 jY2DG 8/NG1A5/LV CbEZq eZrj/o9Ilh DxmLc mkqieXsBxi B04Wb bHDkunOvzY xBuCj lngGEq7gK6 h24Ry qjbbQxaK/j PtwNI DwJ+BuPbad NZw4s DtBXWTMqF9 st9b1 fVox1pudNI H7c4V ciVhzSZ3dG ky4tw rdLtq0JILi X1GQM lqCXGcDwf3 PRnn0 r0iaLIE/uB mx1xO MZ3y0Xuj9D dFZkP G2AknLQ8aH e3pjs f9maXMTkvo GMAZ5 9GPE5uLGsL uCvcI 4lP02gA+2G Yy14Q r2S9a/sMaY NcBs+ eXn0N1A8KK GgKKi e2x+v1EQCL E1xuA 8GAVZsKQd0 zyKLd SpZCJsqg/s fpttJ /nIsyIQ0Fn TrM48 sHMF8U7ZAL RyR8z rQ66IuEL9j Glbjr WPgMaZO9Xy 3Ije4 uyeQ4D7VXJ ofpoq ygECTdSUJ1 aDx3E KeGsOKy0sx IZDuz zsZMTTPjSb 6UpVO 4OMtR2yhOV OT6Nr 02CBsZxeuC RlNO1 okMt/IoENE 5045F 2biR/UmYhk +yGuC zGQo8O1igt 6b1YP kue+iYk9/x ug5kq t3Inzi1mih E8A5s TAKhHn7HtZ BJ7Pv C0zOw+t0zd /v1MF VPoJTarvAx 4agLS EZPt6jwMJ/ ZxlEc Ab3FOzlwGI 8q1Wo HeA1XNlZNK La769 oEFFAXwKgQ aIUYx BcQCbUFSnR v/0j0 6P3/BC1h6W f0O0o fK3q6i88PN 4PxGJ hev9bRj9mo gaipz 2heGPiTNjL HOxgE dwtDxmZN8t mbk+p ZhBemn19tf ZO5xO YwEYoRVoub bkuLq 1Ijlk26Z+x P04q6 et2YH9L5fs Qg+t1 1lv4Y/7MEm wgkJw bHNRbf5BBB 1atzl de5VGOjPKx fXCv3 B/vB4CMceu U/Lev kSr+1RLxsU x6VNK 1L6Lo75dZY rS/jw cicdupSpbX zqBeM X3W/pRXtqj pmrcB no/c5PFjM3 EwT8X lb954EpA3/ hYCWN vRV+HdlhXq wvnSQ D+NzP91KIQ 6gvjT qcWRV6wpUG 7OPt7 OJqZHTovdz NyjcH x9Oepv34gJ HOgyJ 2NUfmbh4NB 4KHoo qUfF0eaA9D pdP2u 5n9gjhvRz4 hP7/u eJQITArDX5 VqTDG 4ciGIkDPKJ VGjfd PGN4jHeMgZ JDLYK bfvEsn1NgG AuurX O805Ap3P1F OyyPV lOu21LVqNQ lRud2 nRjWtr4wLc 0rV3i FZ0TsyH9Oo HOZ6I 8c7WtoMbYH qcqHE J4h8+GpUeD Fzpgf otsa3yFR88 L3lVd 9xm3r4qHqc LXKnD gRre6nkw8i LKIbS e6iWwZzCFv y5Jmz tXglTP0cdb d0868 LDkBnneXHa MXzMw a9Fw7wBW0l JctZ/ o/6h3SkRWH kyRbL FOHj3qkOKK Lk4PC OLrx06kFUN QC0JT IBtBow8Rq/ cKIF7 2qNSBqaP9j JS9JS Wl7+vKmtfG vctlC UQr3Bsz6y+ msxwh QsTWiPNg7A k6bw7 9M+cevhCVf Ev0x+ 5ewplbmRzd HJlYW 8YQE9xt6Hg CjE5I EQsf9CeNxp 8L05h bWUvSGVPYi 9TdWJ 5jGIdH8N6i GUxL1 T3qMXdWc3s dC9CY QYfGb0hcK5 IZWx2 JNIsM6DjA0 JsaXF 7AP1JvuAzR GluZy 8MmK0CacOv RW5jb 2Rpbmc+Pgp lbmRv YmoKMTcgMC BvYmo KPDwvTmFtZ S9IZU PnL5M7JaO4 cGUvV HlwZTEvVHl wZS9G r625B6Kem6 VGb25 0Q9cgoNUbq GljYS 7Fw5emR7Xo Y29ka D1yM7txbvD uc2lF bmNvZGluZz 4+CmV qVB6fkoryS CAwIG 4pimt8LU3T YW1lL 6qaxSHmG4R idHlw QZ6ErLQkIV 9UeXB pJ3UstuEkG mFzZU ZvbnQvSGVs dmV0a EVqV8FfM83 kaW5n R4axkjTnk8 lFbmN vZGluZz4+C mVuZG 2rvod9YLAv b2JqC cf2Qk9TRP5 kb2Jq CjUgMCBvYm oKPDw vRGVzdHMgM jEgMC VTUd9KCI3h b2JqC pWfQQKhg3R qCjw8 B0MfRTWrKW BSL1h XUdOnNhI8E TAgbn VsbF0+Pgpl bmRvY moKMjMgMCB vYmoK PDwvRFsxNS AwIFI hYNmtSRK1R DcwOC BudWxsXT4+ CmVuZ U0nozrsTYC wIG9i puf8TN5PHr E1IDA vOw7IUQfrO zYgNj T1EZ56gFag Pj4KZ Q8ec1OcFiC xIDAg w6UnVmi6L1 5hbWV aCgvhN4ZeV jhiMG NpYMUmEW64 ZmZiL ThmNmUtOWU 0NDY3 YYu8WGqgUP AyMiA wIFIoTUtNR y1QaH ndoPTzNS7i Q29uc 3VsdCkgMjM gMCBS XM58Q1PnPB JiMi1 iEUD8ZFEmP DctOD D4PF09YXYj NzYwY 2ZlMTcpIDI 0IDAg Ul0+Pgplbm RvYmo KMTAgMCBvY moKPD wvRGVzdChN S01HL XRwkIWxV9n hbiBD m54axWv2MV 9QYXJ lbnQgNiAwI FIvVG q0fUA5HyAp ZjAwN COvMQW3PTD 3OTAw SxNvRMC2FN A2MzA wNjkwMDYxM DA2ZT AwMjAwMDQz MDA2Z jAwNmUwMDc zMDA3 NTAwNmMwMD c0Pj4 +SoOsOM7oj goyNS GqHD2thhg9 PC9Nb 2REYXRlKEQ 6MjAy XJU2PWRkAl EyMzA tMDQnMDAnK S9Dcm VhdGlvbkRh dGUoR DoyMDIwMDQ xMDEy MTIzMCstNC cwMCc iO9Vsy8T3Z 2VyKE liZXggUERG IENyZ CE5f5IoKW4 5LjAu MTUvODQzOC BbSkF LLD4CT7G8T G1vZG lmaWVkIHVz aW5nI RxJBCp8XGR uMS43 LGG7POOSP0 hUKT4 +YqJbKV5kl gp4cm VmCjAgMjYK MDAwM DAwMDAwMCA 2NTUz NSBmIAowMD AwMDA aODD0GZTcI DAwIG 4gCjAwMDAw MDAxM DMgMDAwMDA gbiAK MDAwMDAwMD E3OSA wMDAwMCBuI AowMD AwMDAwMzE0 IDAwM ROhZE9xPoL wMDAw MTAyNjEgMD AwMDA gbiAKMDAwM DAwMD T0ZKXeCEDc MCBuI AowMDAwMDA wNDI3 IDAwMDAwIG 4gCjA wMDAwMTAyN DEgMD AwMDAgbiAK MDAwM HNoYXZ6BGJ wMDAw MCBuIAowMD AwMDE hVWe2WLPfG DAwIG 4gCjAwMDAw MDA1N DMgMDAwMDA gbiAK MDAwMDAwMD U3OCA wMDAwMCBuI AowMD AwMDAzMjQ3 IDAwM LNdYL5tSbW wMDAw LWG0JlBdUN AwMDA gbiAKMDAwM DAwNz czOCAwMDAw MCBuI AowMDAwMDA 4NDI4 IDAwMDAwIG 4gCjA wMDAwMTAwM zggMD AwMDAgbiAK MDAwM JYgAXV3IvM wMDAw MCBuIAowMD AwMDA 5OTMxIDAwM DAwIG 4gCjAwMDAw MDgxM zkgMDAwMDA gbiAK MDAwMDAxMD QzNSA wMDAwMCBuI AowMD AwMDEwMjk0 IDAwM NFnLH5wYcR wMDAw MTAzNDEgMD AwMDA gbiAKMDAwM DAxMD Q0JZAmFJJy MCBuI AowMDAwMDE wNzMw IDAwMDAwIG 4gCnR yYWlsZXIKP DwvSW 5mbyAyNSAw IFIvS NFpPvnbN6K 4MzJm ZyFmRCN8ZZ ExNjl pVmW5YZDnR 2VhYz RmRq76EyRz YTM2N bJ4IGTyZjY mYjMz HFHbC8OaC3 UzYTA 4ODM+XS9Sb 290ID HlMERKD2Gs emUgM jY+PgpzdGF ydHhy AVAAWQB4TM AKJSV FT0YK ID Date Data Source [id number] 08/12/2019 03:36:00 PM EDT [facility] Name Value Range Interpretation Code Description Data Migdalia rce(s) Supporting Document(s ) CD:[id number] Negative [address] Test Performed by: [facility] Department of Pathology and Laboratory [address] [place] [id number] SMFQ# [id number] Colten Guzman MD, Director CD:[id number] [facility] ID Date Data Source [id number] 08/04/2019 12:22:00 AM EDT [id number] Patient: BG DUTTA S Age: 63 years Sex: Female : 1955 Associated Diagnoses: None Author: Layton Parsons Basic Information Addendum: Pertinent history: While awaiting transf er, patient managed to evade her sitter and left the ED. KEVAN SCHMIDT was called and juan sue was stopped [...] put in pt chart Ebony Pettit [address] [place] [address] 12 [id number] Eloy PPOAPRIL [id number] signed by Layton Allen MD 08/04/2019 00:22 EDTElectronically signed by Abdoulaye Rodriguez 08/03/2019 17:54 EDTElectronically signed by Abdoulaye Rodriguez 08/03/2019 18:11 EDT Name Value Range Interpretation Code Description Data Migdalia rce(s) Supporting Document(s ) ID Date Data Source [id number] 08/03/2019 11:46:00 AM EDT [facility] Patient Name: INDIRA DUTTA SMRN: [id number] General DiagnosticACCESSION EXAM DATE/TIME PROCEDURE ORDERING PROVIDER [id number] 08/03/2019 11:03 EDT XR Chest Portable Jayce , Sherrell Auth (Verified)Holdrege son For Exam(XR Chest Portable) Altered Mental [...] Supporting Document(s ) ID Date Data Source [id number] 08/04/2019 10:55:00 AM EDT [facility] Name Value Range Interpretation Code Description Data Migdalia rce(s) Supporting Document(s ) Hep B Core NA [facility] Test performed by:[employer] SolutionsAxel jewell [place], [place] [address]OgarpqhgCalderon Land M.D. ID Date Data Source [id number] 08/04/2019 08:51:00 AM EDT [facility] Name Value Range Interpretation Code Description Data Migdalia rce(s) Supporting Document(s ) Hep B Core [facility] Test performed by:[employer]One [place], [place] [address]ZqxlghykCalderon Land M.D. ID Date Data Source [id number] 08/03/2019 05:07:00 PM EDT [facility] Name Value Range Interpretation Description Data Sup porting Code Source(s) Document(s ) Hep C Ab. Non Reactive NO [facility] Test performed on the Siemens ADVIA Cent aur XP using a diagnostic immunoassay. ID Date Data Source [id number] 08/03/2019 05:06:00 PM EDT [facility] Name Value Range Interpretation Description Data Sup porting Code Source(s) Document(s ) HIV Non Reactive NA [place] 1/2,p24 [facility] This test was performed on [...] permitted by law ID Date Data Source [id number] 08/03/2019 12:36:00 PM EDT [facility] Name Value Range Interpretation Description Data Sup porting Code Source(s) Document(s ) Glucose Lvl 121 65-99 HI [place] mg/dL [facility] BUN 16.1 6.0-20.0 NO [place] mg/dL [facility] Creatinine 0.73 0.40-1.0 NO [place] mg/dL 0 [facility] BUN/Creat 22.1 7.0-29.0 NO [place] Ratio ratio [facility] Sodium Lvl 138 136-145 NO [place] mmol/L [facility] Potassium Lvl 4.2 3.5-5.1 NO [place] mmol/L [facility] Chloride 103 98-107 NO [place] mmol/L [facility] CO2 25 23-29 NO [place] mmol/L [facility] AGAP 10 5-15 NO [facility] Calcium Lvl 9.4 8.6-10.0 NO [place] mg/dL [facility] Total Protein 6.9 6.0-8.3 NO [place] gm/dL [facility] Albumin Lvl 4.5 3.5-5.0 NO [place] gm/dL [facility] Glob 2.4 2.0-4.5 NO [place] gm/dL [facility] A/G Ratio 1.9 1.0-2.2 NO [place] ratio [facility] Bili Total 0.5 0.3-1.2 NO [place] mg/dL [facility] Alk Phos 63 IU/L 38-126 NO [facility] AST 19 IU/L 15-41 NO [facility] ALT 14 IU/L 7-40 NO [facility] ID Date Data Source [id number] 08/03/2019 12:29:00 PM EDT [facility] Added by Discern Rule [id number] Name Value Range Interpretation Code Description Data Migdalia rce(s) Supporting Document(s ) eGFR-AA >90 >=60 NO [facility] mL/min/1.[address] The CKD-EPI equation for non- Brenan rican individuals is used to calculate the [...] Mild decrease* G3a 45-59 Mild to moderate qssfqzuaW1s 30-44 Moderate to s evere decreaseG4 15-29 Severe decreaseG5 14 or less Kidney fa ilure eGFR-ELIZABETH 81 mL/min/1.73m2 >=60 NO [facility] The CKD-EPI equation for non- [place] [...] Mild decrease* G3a 45-59 Mild to moderate danwvmgmH6c 30-44 Moderate to s evere decreaseG4 15-29 Severe decreaseG5 14 or less Kidney fa ilure ID Date Data Source [id number] 08/03/2019 12:24:00 PM EDT [facility] Name Value Range Interpretation Description Data Sup porting Code Source(s) Document(s ) Hep C Ab. Non Reactive NO [facility] Test performed on the Siemens ADVIA Cent aur XP using a diagnostic immunoassay. ID Date Data Source [id number] 08/03/2019 12:21:00 PM EDT [facility] Name Value Range Interpretation Description Data Sup porting Code Source(s) Document(s ) HIV Non Reactive NA [facility] 05/05,[address] This test was performed on the Siemens [...] permitted by law ID Date Data Source [id number] 08/03/2019 11:50:00 AM EDT [facility] Name Value Range Interpretation Code Description Data Migdalia rce(s) Supporting Document(s ) TSH 1.00 0.34-5.60 NO [facility] mcIU/mL [facility] ID Date Data Source [id number] 08/03/2019 11:36:00 AM EDT [facility] Name Value Range Interpretation Description Data Sup porting Code Source(s) Document(s ) Salicylate Lvl <4.0 4.0-29.9 LO [place] mg/dL [facility] ID Date Data Source [id number] 08/03/2019 11:36:00 AM EDT [facility] Name Value Range Interpretation Code Description Data Migdalia rce(s) Supporting Document(s ) Ethanol Lvl 0-9 NA [facility] Result created by Discern rule. ID Date Data Source [id number] 08/03/2019 11:35:00 AM EDT [facility] Name Value Range Interpretation Description Data Sup porting Code Source(s) Document(s ) Acetaminoph <10.0 10.0-30. LO [place] Lvl mcg/mL 0 [facility] ID Date Data Source [id number] 08/03/2019 11:35:00 AM EDT [facility] Name Value Range Interpretation Code Description Data Supporting Source(s) Document(s ) Troponin- <0.03 <=0.05 NO [place] I ng/mL [facility] ID Date Data Source [id number] 08/03/2019 11:32:00 AM EDT [facility] Name Value Range Interpretation Code Description Data Migdalia rce(s) Supporting Document(s ) Ammonia 27 mcmol/L 11-35 NO [facility] ID Date Data Source [id number] 08/03/2019 11:02:00 AM EDT [facility] Name Value Range Interpretation Description Data Sup porting Code Source(s) Document(s ) Neut Auto 75.7 % 50.0-80.0 NO [facility] Lymph Auto 12.7 % 14.0-44.0 LO [facility] Meriwether Auto 10.5 % 0.0-12.0 NO [facility] Eos Auto 0.5 % 0.0-7.0 NO [facility] Baso Auto 0.6 % 0.0-3.0 NO [facility] Neut 3.9 2.0-8.4 NO [place] Absolute x10(3)/[facility] Lymph 0.7 0.6-4.8 NO [place] Absolute x10(3)/[facility] Meriwether 0.5 0.0-1.1 NO [place] Absolute x10(3)/[facility] Eos Absolute 0.0 0.0-0.5 NO [place] x10(3)/[facility] Baso 0.0 0.0-0.3 NO [place] Absolute x10(3)/[facility] ID Date Data Source [id number] 08/03/2019 11:02:00 AM EDT [facility] Name Value Range Interpretation Description Data Sup porting Code Source(s) Document(s ) WBC 5.1 4.0-10.5 NO [place] x10(3)/[facility] RBC 4.05 3.80-5.20 NO [place] x10(6)/[facility] Hgb 12.9 11.4-15.1 NO [place] gm/dL [facility] Hct 37.7 % 36.0-46.0 NO [facility] MCV 93 fL 80-98 NO [facility] MCH 32.0 pg 26.0-34.0 NO [facility] MCHC 34.3 32.0-36.0 NO [facility] gm/dL [facility] RDW 13.4 % 11.0-15.0 NO [facility] Platelet 266 150-400 NO [facility] x10(3)/[facility] MPV 8.5 fL 8.5-13.0 NO [facility] ID Date Data Source [id number] 08/03/2019 11:32:00 AM EDT [facility] Name Value Range Interpretation Description Data Sup porting Code Source(s) Document(s ) UA Color Yellow NO [facility] UA Appear Clear NO [facility] UA pH 5.0-8.0 NO [facility] UA Spec Grav 1.015 1.005-1.030 NO [facility] UA Glucose Negative NO [facility] UA Ketones Negative [facility] UA Urobilinogen 0.2-1.0 NO [facility] UA Bili Negative NO [facility] UA Blood Negative NO [facility] UA Protein Negative NO [facility] UA Nitrite Negative NO [facility] UA Leuk Est Negative NO [facility] ID Date Data Source [id number] 08/03/2019 11:31:00 AM EDT [facility] Name Value Range Interpretation Description Data Sup porting Code Source(s) Document(s ) U Amph Not Detected NA [facility] Result created by WorkTouch rule.Substance of abuse cutoff levels:Amphetamine...................... .....1000 ng/mlBarbiturate........................ ....200 ng/mlBenzodiazepine..................... ....200 ng/mlCannibinoid........................ .....50 ng/mlCocaine............................ ....300 ng/mlOpiates............................ ....300 ng/mlPhencyclidine (PCP).....................25 ng/mlMethad one..............................300 ng/mlPropoxyphene....................... ....300 ng/mlPlease note: This is a urine screening test only.Positive results are not confirmed by a secondary method.Unconfirmed screening results are to be used only for medical purposes. U Yasemin Scr Not Detected NA [facility] Result created by WorkTouch rule. U Benzodia Scr Not Detected AB [facility] Result created by WorkTouch rule. U Cannab Scr Not Detected NA [facility] Result created by WorkTouch rule. U Cocaine Scr Not Detected NA [facility] Result created by WorkTouch rule. U Opiate Scr Not Detected NA [facility] Result created by Discern rule. U Phencyclidine Not Detected NA [facility] Result created by Discern rule. U Propoxyphene Not Detected NA [facility] Result created by Discern rule. U Methadone Not Detected NA [facility] Result created by Discern rule. ID Date Data Source [id number] 08/03/2019 10:20:00 AM EDT [facility] Patient Name: LUZMARIA AUGUST SMRN: [id number] Computed TomographyACCESSION EXAM DATE/TIME PROCEDURE ORDERING PROVIDER [id number] 08/03/2019 10:[address] Head WO Zen [...] Name Value Range Interpretation Code Description Data [facility](s) Supporting Document(s ) ID Date Data Source {[id number] 08/07/2019 09:32:[address] [facility] Zurdo Nolen [id number] Patient: BG DUTTA S Age: 63 years [...] . No (Modified) . History of Present Edwin s 63-year-old female with past medical history [...] Family/ Social History Medical history: ResolvedFrozen shoulder ([id number]): Resolved.. Surgical history: removal of growth in [...] 75.7 % Lymph Auto 12.7 % LOW [place] Auto 10.5 % Eos Auto 0.5 % B aso Auto 0.6 % Neut Absolute 3.9 x10(3)/mcL Lymph Absolute 0.7 x10(3)/mc L [place] Absolute 0.5 x10(3)/mcL Eos Absolute 0.0 x10(3)/mcL [...] Disposition: Medically cleared, Patient care transitioned to: A javad LAUREN, Layton Biggs, Patient will need inpatient psych [...] n pt chart Ebony snyder [address] [place] [address] [id number] Cross Eloy PPOAPRIL Z [id number] signed by Sherrell Mcdaniel DO 08/07/2019 09:32 EDTElectronically signed by Zen Edwards 08/03/2019 15:44 EDTElectr onically signed by Zen Edwards 08/03/2019 15:45 EDT Name Value Range Interpretation Code Description Data Migdalia rce(s) Supporting Document(s ) ID Date Data Source {[id number] 08/03/2019 09:37:00 AM EDT [facility] [id number]} [facility] Patient: BG DUTTA Age: 63 years Sex: [...] Supporting Document(s ) ID Date Data Source [id number] 07/24/2019 01:44:00 PM EDT [facility] Name Value Range Interpretation Description Data Sup porting Code Source(s) Document(s ) Lacosamide Lvl [facility] Reference Range:Expected concentrations of lacosamide in patientsreceiving recommended daily dosages: Up to15.0 mcg /mL.Toxic range not establishedThis test was developed and its analytical performance characteristics have been determined by [employer] [facility]. I t has not been cleared or approved by the USFood and Drug Administration. This ass ay has been validatedpursuant to the CLIA regulations and is used for clinicalpurp oses.This test performed by:[id number] [place] [address] ID Date Data Source [id number] 07/22/2019 03:27:00 AM EDT [facility] Name Value Range Interpretation Description Data Sup porting Code Source(s) Document(s ) Zonisamide Lvl 10.0-40.0 [facility] This test was developed and its analytic al performancecharacteristics have been determined by [employer] Kiarra yared Martinez. It has not been cleared or approved by the USFood and Drug Administ ration. This assay has been validatedpursuant to the CLIA regulations and is used for clinicalpurposes.This test performed by:[id number] [place] [address] ID Date Data Source [id number] 07/19/2019 08:37:00 AM EDT [facility] Name Value Range Interpretation Code Description Data Migdalia rce(s) Supporting Document(s ) MMA Qnt 87-318 [facility] Test performed by:[employer] SolutionsAxel [place]ell [place], [place] [address]WzzeyzkjCalderon Land M.D. Homocysteine Lvl <10.4 [facility] Homocysteine is increased by functional deficiency of folateor vitamin B12. Testing for methylmalonic aciddifferentiates bet ween these deficiencies. Other causesof increased homocysteine include renal charlotte lure, folateantagonists such as methotrexate and phenytoin, andexposure to nitrous ox walker.Nyla J, et al. Karol Chief Innovation Officer Med. 1999;131(5):331-9.Test performed by:[place], [place] [address]CuhxcqstCalderon Land M.D. ID Date Data Source [id number] 07/16/2019 10:53:00 AM EDT [facility] Name Value Range Interpretation Description Data Sup porting Code Source(s) Document(s ) Hemoglobin A1C 5.6 % <=5.6 NO [facility] 5.7-6.4% Pre-diabetes> 6.4% Diagno stic for diabetes(Summarized from [place] [employer] 2018 Standards)This test was performed using the [employer] Hb 9210 Analyzer utilizing Bor[employer]inity. ID Date Data Source [id number] 07/16/2019 02:28:00 AM EDT [facility] Name Value Range Interpretation Description Data Sup porting Code Source(s) Document(s ) Vitamin D 65.4 30.0-100. NO [facility] 0 [facility] Vitamin D is an immunoassay performed on the [employer] ID Date Data Source [id number] 07/15/2019 10:48:00 PM EDT [facility] Name Value Range Interpretation Description Data Sup porting Code Source(s) Document(s ) Vitamin B12 507 pg/mL 180-914 NO [facility] Lvl [facility] ID Date Data Source [id number] 07/15/2019 10:15:00 PM EDT [facility] Name Value Range Interpretation Description Data Sup porting Code Source(s) Document(s ) Neut Auto 77.4 % 50.0-80.0 NO [facility] Lymph Auto 14.3 % 14.0-44.0 NO [facility] [place]iwether Auto 6.6 % 0.0-12.0 NO [facility] Eos Auto 1.0 % 0.0-7.0 NO [facility] Baso Auto 0.7 % 0.0-3.0 NO [facility] Neut 6.5 2.0-8.4 NO [place] Absolute x10(3)/[facility] Lymph 1.2 0.6-4.8 NO [place] Absolute x10(3)/[facility] Meriwether 0.6 0.0-1.1 NO [place] Absolute x10(3)/[facility] Eos Absolute 0.1 0.0-0.5 NO [place] x10(3)/[facility] Baso 0.1 0.0-0.3 NO [place] Absolute x10(3)/[facility] ID Date Data Source [id number] 07/15/2019 10:15:00 PM EDT [facility] Name Value Range Interpretation Description Data Sup porting Code Source(s) Document(s ) WBC 8.4 4.0-10.5 NO [place] x10(3)/[facility] RBC 4.21 3.80-5.20 NO [place] x10(6)/[facility] Hgb 13.7 11.4-15.1 NO [place] gm/dL [facility] Hct 39.4 % 36.0-46.0 NO [facility] MCV 94 fL 80-98 NO [facility] MCH 32.5 pg 26.0-34.0 NO [facility] MCHC 34.7 32.0-36.0 NO [place] gm/dL [facility] RDW 13.7 % 11.0-15.0 NO [facility] Platelet 263 150-400 NO [place] x10(3)/mc [facility] MPV 9.7 fL 8.5-13.0 NO [facility] ID Date Data Source [id number] 07/15/2019 10:00:00 PM EDT [place] [facility] Name Value Range Interpretation Description Data Sup porting Code Source(s) Document(s ) Glucose Lvl 95 mg/dL 65-99 NO [facility] BUN 23.1 6.0-20.0 HI [place] mg/dL [facility] Creatinine 0.84 0.40-1.0 NO [place] mg/dL 0 [facility] BUN/Creat 27.5 7.0-29.0 NO [place] Ratio ratio [facility] Sodium Lvl 140 136-145 NO [place] mmol/L [facility] Potassium Lvl 3.9 3.5-5.1 NO [place] mmol/L [facility] Chloride 107 98-107 NO [place] mmol/L [facility] CO2 22 23-29 LO [place] mmol/L [facility] AGAP 11 5-15 NO [place] [facility] Calcium Lvl 9.8 8.6-10.0 NO [place] mg/dL [facility] Total Protein 6.5 6.0-8.3 NO [place] gm/dL [facility] Albumin Lvl 4.6 3.5-5.0 NO [place] gm/dL [facility] Glob 1.9 2.0-4.5 LO [place] gm/dL [facility] A/G Ratio 2.4 1.0-2.2 HI [place] ratio [facility] Bili Total 0.5 0.3-1.2 NO [place] mg/dL [facility] Alk Phos 86 IU/L 38-126 [facility] AST 17 IU/L 15-41 NO [facility] ALT 14 IU/L 7-40 [facility] ID Date Data Source [id number] 07/15/2019 09:54:00 PM EDT [facility] Added by Discern Rule [id number] Name Value Range Interpretation Code Description Data Migdalia rce(s) Supporting Document(s ) eGFR-AA 84 >=60 [facility] mL/min/1.[address] The CKD-EPI equation for non- Breann [...] Mild decrease* G3a 45-59 Mild to moderate [id number] 30-44 Moderate to s evere decreaseG4 15-29 Severe decreaseG5 14 or less Kidney fa ilure eGFR-ELIZABETH 69 mL/min/1.73m2 >=60 NO [facility] The CKD-EPI equation for non- Breann [...] Mild decrease* G3a 45-59 Mild to moderate [id number] 30-44 Moderate to s evere decreaseG4 15-29 Severe decreaseG5 14 or less Kidney fa ilure Procedure Social History Code Duration Value Status Description Data Source(s ) Smoking 08/03/2019 Never smoked completed Never smoked [place] [facility] - 12:26:18 PM EDT tobacco tobacco (finding) [facility] (finding) Center Smoking 08/03/2019 Never smoked completed Never smoked [place] Reynaldo alth - 12:26:18 PM EDT tobacco tobacco (finding) [facility] (finding) Center Smoking 08/03/2019 Never smoked completed Never smoked [place] [facility]do [facility] - 12:26:18 PM EDT tobacco tobacco (finding) [facility] (finding) [facility] Smoking 08/03/2019 Never smoked completed Never smoked [place] Reynaldo alth - 12:26:18 PM EDT tobacco tobacco (finding) [facility] (finding) [facility] Center Vital Signs ID Date Data Source UNK Name Value Range Interpretation Code Description Data Source(s) Diastolic blood 82 mm[Hg] 60-90 mmHg Normal (applies to 82 mm[Hg] [facility] pressure non-numeric results) - [facility] Systolic blood 124 mm[Hg] 90-130 mmHg Normal (applies to 124 mm[Hg] [facility] pressure non-numeric results) - [facility] Oxygen therapy No He alth [Minimum Data - [place] Set] Hospital Center Oxygen saturation 100 % 94-100 % Normal (applies to 100 % [facility] Blood non-numeric results) - [facility] Pulse [facility]ximetry Center Diastolic blood 62 mm[Hg] 60-90 mmHg Normal (applies to 62 mm[Hg] [facility] pressure non-numeric results) - [facility] Systolic blood 116 mm[Hg] 90-130 mmHg Normal (applies to 116 mm[Hg] [facility] pressure non-numeric results) - [facility] Respiratory rate 18 br/min 14-20 Normal (applies to 18 br/min [facility] br/min non-numeric results) - [facility] Heart rate 64 bpm 60-100 bpm Normal (applies to 64 bpm [facility] non-numeric results) - [facility] Oral temperature 97.1 [degF] 96.4-99.1 Normal (applies to 97.1 [degF ] [facility] DegF non-numeric results) - [facility] [Minimum Data - [place] Set] [facility] Oxygen saturation 100 % 94-100 % Normal (applies to 100 % [facility] in Blood non-numeric results) - [facility] Pulse oximetry [place] Diastolic blood 71 mm[Hg] 60-90 mmHg Normal (applies to 71 mm[Hg] [facility] pressure non-numeric results) - [facility] Systolic blood 109 mm[Hg] 90-130 mmHg Normal (applies to 109 mm[Hg] [facility] pressure non-numeric results) - [facility] Respiratory rate 18 br/min 14-20 Normal (applies to 18 br/min [facility] br/min non-numeric results) - [facility] Heart rate 67 bpm 60-100 bpm Normal (applies to 67 bpm [facility] non-numeric results) - [facility] Oral temperature 97.5 [degF] 96.4-99.1 Normal (applies to 97.5 [degF ] [facility] DegF non-numeric results) - [facility] Respiratory rate 18 br/min 14-20 Normal (applies to 18 br/min [facility] br/min non-numeric results) - Health system Oral temperature 97.7 [degF] 96.4-99.1 Normal (applies to 97.7 [degF ] [facility] DegF non-numeric results) - Health system Oxygen saturation 97 % 94-100 % Normal (applies to 97 % [facility] in Blood non-numeric results) - [facility] Postductal by [place] Pulse oximetry [facility] Heart rate 62 bpm 60-100 bpm Normal (applies to 62 bpm [facility] non-numeric results) - Health system Diastolic blood 74 mm[Hg] 60-90 mmHg Normal (applies to 74 mm[Hg] [facility] pressure non-numeric results) - Health system Systolic blood 110 mm[Hg] 90-130 mmHg Normal (applies to 110 mm[Hg] [facility] pressure non-numeric results) - Health system Oxygen therapy [facility] [Minimum Data - [place] Set] [facility] Oral temperature 98.1 [degF] 96.4-99.1 Normal (applies to 98.1 [degF ] [facility] DegF non-numeric results) - Health system Oxygen saturation 95 % 94-100 % Normal (applies to 95 % [facility] in Blood non-numeric results) - [facility] by [place] Pulse oximetry [facility] Heart rate 75 bpm 60-100 bpm Normal (applies to 75 bpm [facility] non-numeric results) - Health system Mean blood 80 mm[Hg] 80 mm[Hg] [facility] pressure by - [place] Noninvasive [facility] Diastolic blood 67 mm[Hg] 60-90 mmHg Normal (applies to 67 mm[Hg] [facility] pressure non-numeric results) - Health system Systolic blood 106 mm[Hg] 90-130 mmHg Normal (applies to 106 mm[Hg] [facility] pressure non-numeric results) - Health system Oxygen therapy [facility] [Minimum Data - [place] Set] [facility] Respiratory rate 18 br/min 14-20 Normal (applies to 18 br/min [facility] br/min non-numeric results) - Health system Oral temperature 98.4 [degF] 96.4-99.1 Normal (applies to 98.4 [degF ] [facility] DegF non-numeric results) - Health system Oxygen saturation 99 % 94-100 % Normal (applies to 99 % [facility] in Blood non-numeric results) - [facility] by [place] Pulse oximetry [facility] Heart rate 79 bpm 60-100 bpm Normal (applies to 79 bpm [facility] non-numeric results) - Health system Mean blood 92 mm[Hg] 92 mm[Hg] [facility] pressure by - [place] Noninvasive [facility] Diastolic blood 77 mm[Hg] 60-90 mmHg Normal (applies to 77 mm[Hg] [facility] pressure non-numeric results) - Health system Systolic blood 122 mm[Hg] 90-130 mmHg Normal (applies to 122 mm[Hg] N [facility] Health pressure non-numeric results) - Health system Respiratory rate 16 br/min 14-20 Normal (applies to 16 br/min [facility] Health br/min non-numeric results) - Health system Body mass index 17.6 kg/m2 17.6 kg/m2 [facility] ealt (BMI) [Ratio] - [facility] Body weight 46.75 kg 46.75 kg [facility] h Measured - [facility] Body height 163 cm 163 cm [facility] h - [facility] Body mass index 17.6 kg/m2 17.6 kg/m2 [facility] ealth (BMI) [Ratio] - [facility] Oxygen therapy [facility] [[facility] Data - [facility]] [facility] Patient Treatment Plan of Care Planned Activity Planned Date Details Description Data Source (s) Prazosin 1 MG Oral 08/12/2019 11:09:00 [facility] - Capsule AM [facility] olanzapine 10 mg oral 08/12/2019 11:09:00 [facility] - tablet AM [facility] Lorazepam 2 MG Oral 08/12/2019 11:09:00 [facility] - Tablet AM [facility] hydrOXYzine 08/12/2019 11:09:00 [facility] - AM [facility] Vitamin D3 08/03/2019 10:52:00 [facility] - PM [facility] Vitamin D3 08/03/2019 10:52:00 [facility] MG Oral 08/03/2019 04:21:00 [facility] - Capsule PM [facility] zonisamide 100 MG Oral 08/03/2019 04:21:00 [facility] - Capsule PM [facility] clobazam 20 MG Oral 08/03/2019 04:20:00 [facility] - Tablet PM [facility] clobazam 20 MG Oral 08/03/2019 04:20:00 [facility] - Tablet PM EDT [facility] lacosamide 200 MG Oral 08/03/2019 04:19:00 [facility] - Tablet PM EDT [facility] lacosamide 200 MG Oral 08/03/2019 04:19:00 [facility] - Tablet PM EDT [facility]
[2020-02-10] MEDS ORDERED: LACTATED RINGERS SOLUTION 1,000 ML IV SCH (06:45)
[2020-02-10] MEDS ORDERED: SUCCINYLCHOLINE CHLORIDE 200 MG/10 ML SYRINGE ONE (06:49)
[2020-02-10] MEDS ORDERED: PROPOFOL 20 ML ONE (06:49)
[2020-02-10] MEDS ORDERED: KETAMINE HCL 500 MG/10 ML VIAL ONE (06:49)
[2020-02-10] MEDS ORDERED: ONDANSETRON 4 MG/2 ML VIAL ONE (07:16)
[2020-02-10] MEDS ORDERED: DEXAMETHASONE SOD PHOSPHATE 4 MG/1 ML VIAL ONE (07:16)
[2020-02-10] MEDS ORDERED: KETOROLAC TROMETHAMINE 30 MG/1 ML VIAL ONE (07:16)
[2020-02-10] MEDS ORDERED: LIDOCAINE HCL/PF 2% SDV 5ML VIAL ONE (07:16)
[2020-02-10 08:38] VITALS: TEMP 97.7
[2020-02-10 08:41] VITALS: BP 139/84; PULSE 82
== END 2020-02-10 08:40 ==
LOC: FECT 05:48
PROVIDERS: ATTEND Psychiatry & Neurology Psychiatry
PROC: GZB4ZZZ Other Electroconvulsive Therapy (ICD-10-PCS; principal; 2020-02-10 08:00)
DX: F32.9 Major depressive disorder, single episode, unspecified (principal)
CPT/HCPCS: 90870; 94760; C9803; U0003

== ENCOUNTER 2020-02-13 06:10 | Day surgery (SDC) | payer OTHER ==
--- OUTSIDE RECORDS SUMMARY | 2020-02-09 12:02 | XMS ---
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 0.0-3.0 [facility] Neut 2.3 1.8-7.7 [facility] Absolute x10(3)/[facility] Lymph 1.2 1.0-4.8 NO [place] Absolute x10(3)/[facility] [place] 0.4 0.2-1.2 [place] Absolute x10(3)/[facility] Eos Absolute 0.1 0.0-0.9 [place] x10(3)/[facility] Baso 0.0 0.0-0.3 [place] Absolute x10(3)/[facility] ID Date Data Source [id number] 08/17/2019 08:19:00 AM EDT [facility] Name Value Range Interpretation Description Data Sup porting Code Source(s) Document(s ) WBC 3.9 4.5-11.0 [facility] [place] x10(3)/[facility] RBC 3.39 4.00-5.20 [facility] [place] x10(6)/[facility] Hgb 10.5 12.0-16.0 [facility] [place] gm/dL [facility] Hct 31.2 % 36.0-46.0 [facility] MCV 92 fL 80-100 [facility] MCH 31.0 pg 26.0-34.0 [facility] MCHC 33.8 31.0-37.0 NO [place] gm/dL [facility] RDW 13.3 % 11.5-14.5 [facility] Platelet 222 150-350 NO [place] x10(3)/[facility] MPV 7.8 fL 7.4-10.4 [facility] ID Date Data Source [id number] 08/16/2019 08:30:00 AM EDT [facility] Name Value Range Interpretation Description Data Sup porting Code Source(s) Document(s ) Magnesium 2.1 mg/dL 1.6-2.5 [facility] ID Date Data Source [id number] 08/16/2019 08:30:00 AM EDT [facility] Added by Discern Rule GLB_ADD_GFR_BMP Name Value Range Interpretation Code Description Data Migdalia rce(s) Supporting Document(s ) eGFR-AA >90 >=60 [facility] mL/min/1.[address] [place] [address] The CKD-EPI equation for non- Breann rican [...] Mild decrease* G3a 45-59 Mild to moderate [id number] 30-44 Moderate to s evere decreaseG4 15-29 Severe decreaseG5 14 or less Kidney fa ilure eGFR-ELIZABETH >90 mL/min/1.73m2 >=60 NO [facility] The CKD-EPI equation for non- Bre[place] [...] Mild decrease* G3a 45-59 Mild to moderate erhbzzleC1r 30-44 Moderate to s evere decreaseG4 15-29 Severe decreaseG5 14 or less Kidney fa ilure ID Date Data Source [id number] 08/16/2019 08:30:00 AM EDT [facility] Name Value Range Interpretation Description Data Sup porting Code Source(s) Document(s ) Glucose Lvl 97 mg/dL 65-99 [facility] BUN 13.0 7.0-21.0 NO [place] mg/dL [facility] Creatinine 0.66 0.40-1.0 [place] mg/dL 0 [facility] BUN/Creat 19.7 7.0-29.0 NO [place] Ratio ratio [facility] Sodium Lvl 136 136-146 NO [facility] mmol/L [facility] Potassium Lvl 3.8 3.5-5.1 [place] mmol/L [facility] Chloride 104 98-109 NO [facility] mmol/L [facility] CO2 23 17-33 NO [place] mmol/L [facility] AGAP 9 5-15 [facility] Calcium Lvl 8.3 8.3-10.2 [place] mg/dL [facility] ID Date Data Source [id number] 08/15/2019 04:31:00 PM EDT [facility] Name Value Range Interpretation Code Description Data Supporting Source(s) Document(s ) Physician No PuriFNIGFj1nPv QKJeL [facility] [id number] [facility] 0M0aLKlA7B 5cGUv Center Tc7puG4YQB NlRm9 efX9KXXn3G XRpY2 TtDS6ld9Uo bmcvV 9tqNN2zsSC uY29k mF8dWp8OYR 5kb2J qCjIgMCBvY moKPD wvRmlsdGVy L0ZsY YSaZVHbq3C lL0xl tna3wTSfCT 4+c3R yZWFtCnicK +QCAA XxSAoFQV4b c3RyZ WFtCmVuZG9 iagoz BCLwi3CkFz w8L0Z hiWYndd0Aq GF0ZU XrB43wAW7D ZW5nd GggNjk+PnN 0cmVh eZq9mJYH8J rk0o/ INFAwNFAIS eNyCu EyVDAAQkMF I1MLP XNTBQtDPQs jhZBc Ob7UuUZSiZ h+Rad mQalYn1oGE yAXAL HaKv5VLS0t c3RyZ WFtCmVuZG9 iago0 RXMdk5XlIj w8L1B pZ8SLe5KfU 1VzZU 5vbmUvTmFt ZXMgN SAwIFIvVHl wZS9D SJNasP3yD9 91dGx pbmVzIDYgM CBSL1 KpJ1XcQEmb MCBSL 1ZpZXdlclB yZWZl toFxO5YtLY ggMCB NUf7WQZ7oa 2JqCj cgMCBvYmoK PDwvS 7jef7p5CFK gUl0v NTtiRX0EQB dlcy9 Kq5PnvSSqG 0lUWF BkUp5hVqet Pj4KZ R9cr0LqBnL gMCBv YmoKPDwvQ2 91bnQ pBW2AlWAyx CAxMC AwIFIvTGFz dCAxM CAwIFI+Pgp lbmRv YmoKMTEgMC BvYmo BEi8US9RMG XNlZC AxMiAwIFJd CmVuZ W8ckxroNfF wIG9i dvv4IX4XbA x0ZXI vRmxhdGVEZ WNvZG IiVRIzV5Tc IDI1O TYvTiAzPj5 zdHJl IT0KsJowfc dUU9k Wh8+9N71Qk hCKlN QxcEWJSS29 SJEuK jEJEErAkAA iNkRU cERRkaYIMi jggKN DkbEiioUBU bHrBB bO2QYbPSyX SWStG d+8ee/Nm98 f935r c30G1Hbldr a6AJD 8gwXCTFgJg AyhWB Sn11QUmOfj YAcBD JFZI8jO1MG zs0IW +AZHkRP18P xsmRP 2P823BrD2+ yrTP4 zBAP+flLlZ IjEAU JiM5/L42Vw ZF8k4 PVecJbdPyZ i2NE3 OMErOIlmCM laTc/ FaW6u0uPRJ OfMyh TnVq5ZX7kL w5Nwn 7716Tu2MfS AZF+c I+LkyviZjg 3RJhk DGb+SxGXxO NgAok goq3aUQAAz tY5Io KeSu79tW1Y jJX/D XP5tExkSDL 8XOzF ouEiSniBkm XFOGj ZMTi+HPz03 ni8XM DX12yAUrCp iZGVk q3YGWCz/8W RR5bR myIjvYODk4 MG0tb j8z7B6c/Ju S93aW XoR/7hlEH/ jD9ld +oQ4YjCBfb dn6h2 5eBQJd5zDD u/2Hz WAvAIqyvnU OfXEe unxeUsTiLG crq9z pALpOw1ntO +jv+p 1Fe5WumF8C vt3v5 SG124Y1fgZ xQ143 xdT4ejAZxT 7icPk M5p+H+B8H/ nUeFh I5BB8DC5EY RMumT CBMlrVbyBO IBZlC koI9y0u0J3 P+pNm 5lona+BHQl lgCpS OaNQ4pHUma ESAJe 0Cf0K84O3B [place]/nN j9TVhP87s0 L+fVe 1KO3HCfU/j mNHRD D0CcEC7Dd8 WgI0I ABFQAPqQBv oAxPA BLbAEbgAD+ ADAkE oiARxYDHgg hSQAU QgFxSAtaAY lIKtY CeoBnWgETS DNnAY kWVf1JG1Af 6By2A G4PVJTG4iz CnwCs xAEISFyBAV Uod0I EPIHLKFWJA b5AMF QxFQHJQIJU NCSAI VQOugUqgcq obqoW boW+godBq6 AA1Dt 2EVdQF5VGk HIzAJ psFasBFsBb NgTzg IjoQXwcnwM jgfLo C7wWFuY2cG 7oRPw 0xhSIxKG9F nEYAQ ETqiizARFs JGQpF 4JAkRIauQE qQCaU DhuY6zJ9vK SJGny FsUBkVFMVB MlAvK PmKG2rIHiC ahNqO qUQdQnag+1 FXUKG aJ9MCECouz zdHO6 UW5JIpKqAi uRleg a4Vs7MCoUw Q4+hU Gc2CopBEXL H9MHC YVswKzGbMb 0445h RnGjGGmsVi sOtYc 64oNxXKwYm wxtgp 2NIvUmfV2o n2DI+ O0lHN3L3m2 Togrx FXgWnAncFd wE7gZ vBLeEO+MD8 Xz8Mv xZfhGfA9+C D+Suzy NrA6tFinJX QiphL pTK7IU9T4l LeEEk EvWITsRwoo C4hlh CUFC1Ctqcm iVRSG YkNimBJCFt Ie0nn IZjFs3dc8k GZA9y RPbJ6jMgWc 8h3ye /UaAqWCoEK PAUVi vUKHQqXFF4 pohXN OS5GEssxS5 YoXhE cUjxqRJeyU iJrcR MSqHUa1CA8 YbStD FZ7BT5AEeV ebNyi /TI3OeOESL I4kPh UYoo+yhnKG NUhKp QADG14YSBB upZ6j gNQzOmBdBS aaW0b 2iDtCkVioq dSrRK nkqNynEVKR 2hG9E E1Rv5Nfgy+ nX6O1 PaEW9Mvnao 1TbVK 4gp3oruubm x1UrU 4sJD4M6dU6 R91NP Ev7s6wu/TQ GmYaY Mj4Eih1Xqa 8XQOb N6SZE5wdgf H59zW xMKRDBM5E6 ju0xz IvLcI6rSZv tKq0j jp6GIemg6s naq9Q /zX9tQLQet NR6Cz Q+ekzmOGCs OTkc6 uRZKgqyI2m f11Jb q5heO4V2vL elF6h Leegld8Esf s/ST9 Hfq9+lMGOg YhBgU VsNw0RyOFB MMUw1 2G/YavjYyN Yow2G HUZPTJWMw4 wzjdu Ts6wXvIzO2 lm0mB yzRRjyjJNM 91tet wYNjV1OkYg MRsyh 27kkBAav72 HLdAW ThZCiwaLG0 wS05O Iw3xpxfuYL YMtCy 89VN8ZRGyG W22z6 fn9mY0wnA6 daH3H gaBByGJw98 Pzq62 CDzx0cnzcY PJc37 nj27sJjT1f bse32 9Y0486iL4A /wb7X /sDSq2XTvc 1h0tH UZhBs2dLQw 8YKY2 7suBxME8d6 rXY65 hUE2bSG4Ob Y+RcX pffcZ8iTp4 nG8/j hDyeTnnl8h lzrXa GxPXoCl02i Unddd 457g/sDD30 PnkeT c2NbzSgj01 HPZ17 WXiKvDq/Xb Gf2Sv Pzt5Gvw5cQ e9CH4 hPlU+1z31f PN9m3 3NbOy16mfv 8pf7R /kP82/xsBW gHcgO aAqUDHwJWB fUGko JSM2CGHlf4 CRcE9 SVYOLEr8gZ vzDec W02oYsvFE9 O2h98 LGu1wZeN+O CQ8Lr wl/GGETURD Rv4C6 YMmClgWvIr 0iyyL bXJoBJqR0s xWjE6 Kbo1/HeMeU x0hjr YVUuy8O07e TxHXH Y+Hg88tpxi f6LNy 4mKpBNxD52 foi40 I8xr3r7rkc vvj4E sUlnCVHEtG JMYkt fe98iIcRuy TSgKW 7B9p3nH3x6 hOeB2 7Nl2Clxr/n TyS5J nHtITw3Xe0 ePJni qrYU3dCJXk QLnqf 4r7lvuk4YS duf9i r4Dn22D8wA mHFUS BGmCfsytTP zMoez qIRLm6HAmW ftXDY hKhH8XWTOf 7K7xT UKz8JYlABd XjKa4 5ZTk/MmNzr 3SJ5y flEdKWyG1g 3LJ/J 9879egVrBX dFboF wsqsJ4uirI +lXQq qWrelfrry5 aPb7G q25GdZM2zI t/KLQ tAK92yS9bS U+RVt UeekH3hqoi ixWKR tA4AcwygMz I2ijY DApv2esjGV 9LeCU LJ47UK8ujr +Zuvv rFfBwCE25f krRls DqneW1CpKq h1uvb 3LcdKFcuzy 8f2x6 flNEAF7xKx pc7l+ k3HMVTXmvB sEuyS 1oZXNldZVC 1tep9 uTm3JZ4IQW utZu2 z0sc1izvw4 PHY01 zyEKpo725a YO/Ne r/6zgajhop 9mH05 +j97Hzn0b2 36url Ny4b89aJ+4 X7pgY tSmf7Dzd0d mi1lr XCrpHXyYML By994 f6Fqafkdh2 e3lx4 ChySHHn+b+ O31w0 GHe4+wjrR9 Z/hdb Wt5e5AW5rq eOdWV 0iXtjusePh p4tLf Pgrgjg7du8 x/TPV ReYEX46EcC iaITn 07mn5w+lXX q6enk 07V8H1cceX k9c60 vvG/wbNDZ8 +d8z5 3p9+w/ed71 /LELz szYZkZb6Xg kcKlz rH3m5ze3Xj oGHQY 5acfPmo54B e4Znj v30ix3foGF va+eu pYx2zFP/JH h61HX g41RxHU2xh v56Fb 0cut4d82C2 FlzF3 059Q1ZmHa6 mvcbf aG6sP0zWX0 +6j06 9WGFnbxy4A EnP2X /2S577AB0A cWEzk XqM3aIetN7 Jy8/X vh4/EnWk5m nxT8r /7z2bAGXx4 94/DI wFTs1/lz0/ NOvm1 +ov9j/0u5l 73TY9 H5OMj6sLtf 8UX9z 4C3rbf+7mH cTM7n gof3yH5k+6 PkY9P Voo4rNu93D 94Tz+ wplbmRzdHJ lYW0K FH0lh2QaPl EzIDA nz1XeIen2V 0NvbG 4rH6KwV0Xa RGV2a NUzT3MgiM7 IZWln aHQgMjkvU3 VidHl dBP7TgULpR S9GaW b1NSGhCkqx dGVEZ WNvZGUvVHl wZS9Y E9EkRPD8D9 dpZHR pQGP2Ir9QS W5ndG ggMjgvQml0 c1Blc kNvbXBvbmV udCA4 Si4xxXItAZ 0KeJz twTEBAAAAw qD+qW bCS4TTZTGJ AB4G+ 2OKjwplbmR zdHJl LL3BZP9ct9 JqCjE 2USYxa4YwN jw8L0 AbxM2jN0Gk Y2VbL 2qDF8Lni0R kIDEy MBNmHq9oGB VpZ2h 6SUW0X5A0D nR5cG CgTM9eI1Iz Rmlsd PYwE3ZiCWA lRGVj c0JkQ1D5kF UvWE9 cpfHraX9SG WNvZG VQYXJtczw8 L0Nvb HVtbnMgMTg yL0Nv aC9gicOxK5 ByZWR kZ1IhbuOfD S9CaX EgLJRmQ45h cG9uZ W50IDg+Pi9 XaWR0 aCAxODIvU0 1hc2s gMTMgMCBSL 0JpdH VOQEFMf06i b25lb aKiNL7VjsC lcnBv pUE1WHI8kp VlL0x dfkh4mIO1G DQ1Pj 0icVJaFO3J eNrtm wlUVEfWx2/ iJHMm 0bhGWRqatW VzwSW OE+PESEKMi iua0T gaYjQRjQIa AiKgQ NN00/vCqoC ANoLs g6HKnnrMYg FlURF QUUFAQJRFY Kq6ka FvsufKU42X d97R4 +t671Xd+tW 9/3vr KI7myBTGY1 r5x2e aX5k6MFHDw eTElf KHr65/12/X xaRXh SNNxIlQ7Dy 4qOf/ ubUh8zC6FK M/NQv 04Hd3BpCJ2 zc9NW mZV0/Ps75G kRfLF Rv0EVvYgEs Eoj8X aQ5RLhcDcA z+1fe iV3vNOufmU ChRQI oESEkytd6t uL3+1 7yJo1KtMvB pJZWN Y96/hqbHqw +Gw6S tFW93ansWY ZbxM0 394EMHUHTZ 6hCDy Q4rBlvutKF Lc0Cd Gvb0tJeU4U K8rCv 3BjZqbHmam le12v QtkKSWcr0q 7uRl3 hGppTdrGl5 1/+qb Wr/JC3EnVD D0AkN V1NGB3tPi9 ARQp4 QbHLK3MQY7 5ojYe afADFeYQia fzJT4 aYtDLEwmgx I5ID7 /zUZE/JeZU xzo8E POj4LcRVqn XS6eJ nEv6v46r7F Xja2P TWkBx9aC5R LudVk /Ma6xQ7A9t hyRlQ eigcAEJWpq boXUB mT/DCAwYDr N1f/3 NwWIoWbsRY R2shC 0OehkBOYNc 7/2xg XJ2GVa3RxB 9tfcd n3Ef7OGBSb RL/YJ dzqnyrrXVp COPN/ SFeHoj9u80 SOLOMON+6 BH27jE3pTT EaCgk 7BQ6ljds0x p2ujn WOmIuPrlix Gh+uc N0elNzUXMS QBl+u vv/bJdUaDH k4rIC pmRbNk90j3 h615u MRTZi7bXPi dr60G YZUT6XnWR4 giIFJ xmGLtku0G+ zGkJM UZb6V85ZDB 5/X+F oI14Jldy3u 4YUGM aU1JNW2zQ1 UKECH sMETHcGgT6 yKVxP jVeYmc13Q1 BRXCk l92Csv+yfO ymJoC KO+etSjl0B 4vInz dqjPaEgQYV JlrDF Hsl4xO+0cM 90FqQ jrInUHKBqW TQpxt gF9vqsXRfY SPzCJ jhjqXoLIHh 1rD97 lk/kdPRud0 hNS6z xnjTYr83CU 7vNOg ygOhGWHUiL vOa/N C18d5EoPpv SwkUl RHL8A394n3 UiCGX 8+5iSZcTlF gwbhF 5EKP41Pbya m+8L9 FClbl893xJ ZtPDU TCLDePtYJL 9B0s8 PvvF2mB7n+ 0/dlF gwIaPbGDCY TBgfr U33D+uoOtZ W298I cfCNNGIZgt I64QW 4RxaZEp2ax Wn3Bh QKHEyM6LG4 w+Xsa 2PPzJw4El7 xxCY6 PXx2cq7sOV 2KTL0 dEQpu9f4+K zrvwn NtlGrd5fp9 EvF1f IgEphQ/JV5 nKl1M r4+N2U9Upr +UNKq Awno/OKnmN OJN4Y iygQDY1L5K mdh4j ZPTYP2s12P JM40K zagQI5PQB0 5OGzN 3eUt4sM1Rs BywRk JqI5qqqQix 1Wb2k SDtiuoc+Bj mkTjl ufsAc2EVf7 TgBID zV5eprzDL5 p4pMM TD2ghowVA7 dwNJM AJM0wO1Ogx GLRor 98BBRcgOsd klImv oFLkT8A7cH Q6ifx u/OZlUV4D4 XBIA1 0ezPEgrAja 8GuvG ZEu8Yu+Joy IzNsW OAcA0uj4Lh eJJr6 vcw56H7Lnh ZiMEp juBDMHhedn 3U9BA +XegtlbA+Q PNN09 3aDCABLHyT dvhEC ieU9qfiX81 qBGO8 K8PIYoQsG8 aqt9L YsY1UywZNk 538a/ sDGhfV5lj4 28ZSH CTi2I2aiyN MHYvA t/CIDJzmg+ 8MIdY kx60O+g6Ya iGP6V rF0Nq2OgIc UJFN1 YQ1AciS0LJ Wqcj7 2URXJCT64I 4xOVL 8nNZBdmcOG glspo hEO7pvnoIO euDDN OoK4qEuOpL GaCCk r/3Jtc7Ly1 lJJ/A zSYoOB6+0G /DgA1 OsjdfVj7Xu 7fNAD CPIXx8Edap empGB Eb/uUREEE5 s4YL5 eQlyTCMLI5 8iTo7 +CpDGTS426 tfnEK TuE4+l+Wla l+UiC r+Tbum02Gs FXTZu IIgwyV/rosales E3zIE tgOZN6lVoF YOu1A nixptw03jU kPWCE 3tjZsFZXeR 60LO8 hS2xeROu+w qod7E iIwkV+d4TD E6MXO 9UNPkVP+5p vfU3R jy7j/5UkcF RCqSb 1V7fuTTWRn uDczk 0ZUCFj9GbC wNH9r O+vbk6eQ/h 8hAIb bLbMErQUSN VVxxf +ivlXfrUAx Ck2HB SpMrasznYN q02B5 nC+VEZLtDC nbj+o J/3zM7HXe4 8Cwer AxECstrxDJ cApFx i/dl1AJ3ID l9I2E 8rQS21b26z XMHyy Ad/janaImW 8Zk3y yrrRo+IHt/ EMsrr kOt1iSBHer U6/aL Ntn5pd59y1 FH5xR egJYgG4+h9 SXq/C f6r7iP0BM0 XWa3d LW8RO41fpu oVIkJ yzhVQ8psZE Yf3X/ tzciGCchlc xGOFn i+ZR9WeE1H IGPD1 ZlW3WcyQCC 1NiSx Cxa10bhhUG pGrt+ 4DgYZMtHJ/ tIzaJ whOCHK9zR9 UQHEY WrTfIX2JRF 65ENH ncZJVP84b1 VICzc e5nAcmXxw3 JTWS4 r+tbZNtpFg HjVvo S5ZpE9ql5e oRkZX 1yoPP6GjnE yILuW IvwhFekduL pIq8C P+zcAb7Ds0 4mjoM Io+q66UhLg SIo88 bBLS4FMBe+ epnXZ 2OvulAYmIF o0Ttu /1YBbxgjf6 qMzQ2 OB4wts2CEW 5Aruq aCnFSgDoxy QnAEc FMoUzIt0sk vh3Ka TP6uy0N4Ko YJ6fk Vmw+EgmGXO yl/tq IzZe5z4lEc LUTZM dFzGb8c+K9 LV2e6 F0yvfFI9HU Fkc22 iUc6VQUNTB 8y9bt 44F6EQH/Gp kYnOA 880LH2yMcS I1+Cp ruE332lt43 3IgrG tgaeNzUQ8l 2jrdg KnD793uPVc Alamg kmgo32qcyH vxAit uFnk5QTcBf D0Uh4 Im+3/mCMnM OcYey EWp12w30Ep V8AkY 7nm6cUEpkD dWdUd sPUvftSJ2J IMSgk IhjBsf4ZqX AiOaN FRGejyIsQm QWldf J3+tqtuxOX C+D9w 99Ynampa+r NnL97 cblq+7q8yI mYIiR EYLbnJCO+v HURZQ pe+xe5jlf5 L+VFb KIsHInxH04 UM+qj d9FaVIw3Ev U71wu zt5xA1h5AB IdD2o dR7L2MHPCm KLyqt JgbIvMKs9i CXJhG AXVKbeOjwX JVpEX mjAKRh4+ei E1pzX 15RJLlnXKC qBapS H167dFh7+S ccizn kYqczxwkUB xFiBD tKaLpDJp0j +0dvb OxFtHhmTkl 97zQ0 sBqxYiGH1Q Y2J3M OLu3xd4yum 5vk13 x2AXCsOSCn 8DAQ8 OPmkze3bz7 YRoZI fGKqxRT76p FiL5H YcuPSFfXM5 z66/C 2OyS+JCLfO 56X09 CrLMPxatbm Oh6/O VBxB7NKnM5 NzQkd EYi1gSRRAF 7i4GG ydJSk3PZpN JH+PP Tc5RVi5RAf PI8mT z+Bh7cnvyz lyF9b hOFVrcHyjS ocwD0 Z9dPo5+iX0 iJa66 Jh0GZ7GEDO hZZ4e eQtbzOnRBw U1Vh5 JZJVCjAUlR wI7tI QicaIaEmhB xRoSM LvLtzS8DnW sFiMS OmwSe/3R5P kXo0d oErBjoEkOV Xup3I Xe6TcxpTCp y2S3K M43fqJZEct kPFnl ZQtmPoWcbX G3mNQ KuLQAN3R9b iyHb0 zR+oct6fu7 2wJlj 1uRLmokyM6 AQkzD r5uPaVt2nZ xC8gT J6GXKS0DjW 0+hYQ Vnkmt4dkX3 7yzl3 ZuC3Mb1cbo tl6mX Lnd5jx9Zfl Z1EEB 6YgpRegL1m YYQqR A8p8UdubDB oYgZf B1jRKEKMSa rPe6B 85RZ5cLvej ZiOjx e1XHof6gK7 eU4TS FnT9gL9a8B m4POM aL4wxi93pX ngcoU UbaGgm74Op t/LGf Dn+Cb2RtEC O+CJS j5VzC0d6DH lStyS 5daTfUWX6P Ip/7X JSbknCMr4D 9yksD YnU5jTiMxf uax6S c/p0sdRN/L FNUXa UjstoyUvxh 4uoDw 8c37Khr3px GKyX/ hsRPX+2Nxv k3Wli s5U48eED3H CtrHh 00yFGutl5/ aRftQ eTguiFKbvG eUy8K tKAstCLjsk vwR6Z aHEGYJKnwi ejhRG Ztg+TXkN/a xWC3R GLvYyQNqDL 107Ba YTzQ8cdCeY wAJCH F/Dap9WnGj Z1yMh M+vhb7Uzp/ LXZ3d pZ5g3iiZXI brBOA yIAZlCvlD6 Tbk0j BypHItGJdK K+sK6 ab5Y2jAdde jVK8m PQyvFmIFow 23YJ5 aBk04Gd2u5 Q5goy yIOZ1EhN+c 4htff A449t2p4DR 5YA6+ ZTdMW20uQB wMY0c KLntgnemkD ZYMKg Q1QzoLILn2 FlrE9 N11C8xUbb6 yVpuH sdby1OJzLj uy80j rXApuv+73M LrDyz ZKRM/98S7L agN8j ckqplTQmD8 1YHvO MBMwR/akHh 4AxMJ pkoTstB7J9 rhIye AxbWN56RL0 puOmx w8idAVu9Yl FAXH/ Cp93DFWUvy q9AXb zuhsEFbceX iIk05 y70i2kCMuV bzQZ5 gzkuKzb/Y9 ra0NK VYn/HGXGl1 1lf/O EztIwO7FNL Gf0EC W3hOiOAZaU XFR4v wyyYoeZX0s DT5Xb H83BiYzpRD wLKBr r/b5TJP5JH fISUl gYjJD1IE71 WhvSE vT09IIj88B A/6/d mfLXCv1xDL TL/Oz e+/oXJjugs erzcM AHOXUv0ikw 97Q/L l9OkRUa6v+ kQVTX HYUmQ1OLBF OuIJz Ug1maIQpt9 DGx6Z Wp8BEJ/joq PH+8M 0FiZTIew4B RApMd T9PGi3m9vW FvmYj 8yMZ1UQp1a 1PHku X56KQsd+oz ppq5G D8IX18IFV8 /SigJ VfCy8gRBjm vRP9c azlI+mUX3t 9kfX4 PJbOvzS+0r G1HUt 0DJTcpGptb dlHOT Jd5MKsQTyH senior [employer] consultant+l J7pgpV91z/ Hs3z+ GhIY1pyHZm fx4fP 8mbWlV/XuL eWj8H whoauY6CG8 v2dQ6 +WfX/lfvo2 ZtsU0 JTiiVeO/SX UJYyA GuD0yKE4fb 9r7Is a+xTNzlnNF 37wH3 1H8t7smNsf Gddar bN9nMM3kMv Q1+Jm fyZ3EP3/h0 VO6Ee pTLAVt10S7 rhO97 a6buXdTEQc LX3jt FjoBVTFjpj 7/M1a IiV+8R0Stp a2pbY B8nFp2eIC+ WvOuw 2lcYQxxDm4 r/e8A CPlpUlKBLE jE6p7 K6s50S2s/1 xB8P/ I2YYHbfvnw gnJZe Q+gmih1hMm bOJ1z M31zel/vCq u7VQ8 /bY+yO2/ce lVU2N M6vN4FELNq ouNt5 XXzTB/UWkV d13Kh 6CEpUnJXos Y6dyG xrf/oWkbeH 5FHf/ Fee13NGgua B4Dp+ qmzrl8zqIB ms0D/ QRgVqblA4E eTtgQ 4F44AEvuS6 CALKb mgwiQLKZEt O8pvS /2fUsP0K2n A552o tOitrmt+sn v8Plv ML8FdedqBc dHJlY Q7EUX1xa1M qCjE1 FDOio5FaCf w8L0d qk5LaGTbuL y9Ucm Lgh0ZkssLu Y3kvS TJ5aoFjM5i gZmFs w3UxB9GcQY EgMCB UGc1dP93nl GVudH NbMiAwIFIg MTYgM CBSIDMgMCB SXS9U pNHgV9LnL6 UvUmV ht4LqD0ZgH DwvQ2 0ka0QHvXAc ZTw8L 9TjIwL4aEU SR0Ig MTEgMCBSPj 4vUHJ aA1DdgQZbG 1BERi EpEIA0oGNi SW1hZ 2KAIP8DeGS nZUMg J0osXQiyRP 0vRm9 nsXq4J7efQ m8gMT foQGPUB0ko bHYgM TzgDHQWW4q pMCAx NPKxPf3ALQ 9iIDE 3TTUpRk0+L 1hPYm igS0X6HA5x bTM1M zC1ZIW7RFJ gUi90 MwA4QtBiBQ IwIDA gUj4+Pj4vU GFyZW 50IDkgMCBS L01lZ FjtLg29HxU gMCA2 MTIgNzkyXT 4+CmV pLJ7veci8H DAgb2 LhKwz4U1qk ZHNbM TUgMCBSXS9 UeXBl Z1JiR1XkB6 NvdW5 0IDEvUGFyZ W50ID lnQYDKQi6F ZW5kb 2JqCjIwIDA gb2Jq Zyr6Z0nus2 VwPDw aSx1ZlgOgi 3Bhcm JzG8lkC9Kp L0lDQ 2Wyn6DaTXZ yIDAg Ul0+Pi9TdW J0eXB hU1Pqei2hV mlsdG BaU4IgJXLq RGVjb 2GvN3Y3uLY vWE9i czArxC9BRN RyaXh bMSAwIDAgM SAwID NnU3Vsns5P eXBlI JXbClMwf2A yY2Vz PDwvUHJvY1 NldFs sSCXMT8Ete HQvSW 7kL4XNT9gy YWdlQ n4KiBMeDRb dL1hP PoqmE2Q1CH 9pbTM 7ZyN7VJH0S DAgUj 4+Tg0gNzUg eFswI DAgMTgyIDI 5XS9M AV3arMvzPQ k+PnN 7mkIzgWg4q NPPzD X4VRw3ZZOF BwARc gLfCmVuZHN 0cmVh bQplbmRvYm oKMTY gMCBvYmoKP DwvRm ibdQWrE3Fw YXRlR IUsd0KqN6a lbmd0 kXTfDFk6Hj 5zdHJ cGR8SeBaSQ Vtv2z YUfu+vILAX G6gVU ndlT/GlrYf ayWyn xbYMgyIztg ZdXF2 Stb9+R5RIy o4tV1 aHNXAtUiTP Od+50 xd2BxIXXIR /1UG6 fbuBRg5C0J 3HtpE IByPxqhG2w MYx+v VNsZqtJUjD JrIMX RGGmqaQS2M whbCC xSfZoKsPdB gjeLt 6EvswGjiKB idigl piL47V8iau /p9o9 csbhCarNwd ENEex bN2KAtOkwz BPUyr H2QXRQ0Zvu ATPiO ADGpZCbHb+ jefFe VD81NT0uRX rEsrE 8RfGyd7bjt 2SQKV QtGjXFrz4L OKCzG iUuQEffaBu kG356 K2vy8YHfhZ x+3Q2 myxmN/P5W0 7w5m4 x/peZg2BaJ c3ois U1CphNa9Mx 0DM4Y +tyTZoWFtJ kcUQD 2f0Ipsw9pP Pecx+ kRo20PurlL jyMb4 dRLqc4K37T xSB1e 42Y6DnoKR8 Wi3Fn WFsO1FoiZy pzk7R Yz9omIB7gQ zcp6B s0aZhBEHk/ 8SeiG qo+aFRaJ/I fb0dg NyGdPG1t95 2xxiw TcVkrM2kWV C79Z/ PFTGW7jDzM xh3C6 rd0XJIPQos pm4U6 y9EQhrt+Ur GKT5s P1QLLBJkN4 ejDze B1tEgomURZ U71YV zs5eKaHYmH TLeiX qCEiFN5kue 4pFmT shlBf8Qguj GZj8u wG2O3Psqd5 P8qkV P1akN5z/GUANAKITO eFq1U XxfKYCJaaS Lcx51 rzeGDyXjVp FSTKJ Y3tccVda5D XVPRT DFHJg45nXR Zx14e UllmeDFkZz 9Ka+M asr9FbRjtb 27m17 i92ZFQeSPN YPA6j ezcm77mkLj k6e6S MLKoZcB4Mt OED6p oiKMJ8zrKs rSW+Q 2McWzLh9s2 pY9M3 NRGwL6kx/A 4F+ck ZchKR7dkSX VCZRQ 9Kv81eBWf3 VbUS5 WQUM/fFTCK YL8Lq CgXIWE4u6v bL5mm cbwM2Ntq9U qCx3T nco+uz7vi6 aFn68 KJX1ZhoErp YKVKo orb9TaAtXt rQqMy frWQ/8QOKF ht27H 4Dsz+SuRuH 6utfI Ovozcf0JqX aACU4 Ru59kpT/jX 1Pd8V Mo/nAY8J91 VkPb4 rNlRKUMjv8 z3QFQ O5yLVJaT7D QmSAf oEiURUHBXx UfgV8 dfl/gLZw9A v6jCK bSMA8Xk/hy 4D1GI 4llfoPBpb4 gbCtL 2hZMPidPBq aVTEE u4HzIAh3rH vwHNQ xZOgaD6t1G J+GTh EHIbY9uzmk MezIc R22cJ+ZI8x +N6xo UOJZsArCQ5 pwCJ+ 7jNPX+j8Ks NBAcG AgTbwSSzlk lU0d4 0FmZpgWk3U jk0uL 9wZ5wTFwlC ryZtZ ZWpCjBNh02 V5Ksz fRRq3SaKRa 3qfpa GAzIOe8uHJ 7uVpN s5hhcQxSIy 281kQ cvS9yL0LR7 cVkeQ /tLIGcKTS+ XJXSc xQqt2dS4Bz DDVN/ LjPUQ+9TH9 mQznm v3zOSXzFCM hwMaC 223tDc3j91 MRM5c l6Mvq+/wd2 pL9zI Jhw5QIct4a Ntv3f HzDOO/3YlN EfNxa qZyxmgbNLN Z6bv5 5ok3EP2N3z Q4lQV nsALPNZiaC 2h1qt XWXASk4OEQ kPvoI R+6Iuekmml USCzW +G5v9DS6bc BDcne 3DBI3ABODM C91CM lVmNxesfC5 kGZL2 n5VHQAFfWh ZBAHo jR/awlyC4k OX3wZ CUiy1HdGvt Y9Wdt DL0MqZlJJz TmZ+p sIAobnSkbq 9S47k i7m0vMEaO2 WZTSj IrIb0FhKz2 qpyEe +eILKulhcW VdG01 A1AkdU7NU4 urxdc 4OcleFKcXK l1ANr Ks0iDIIg5J 6j/wi NcfkLJuqyP zKdCY oIRDDG4FPF t7IXk W4YvhGpBWp 5UxXS 47M7O6StLo 9ixsC ff5Q8UK+52 Olt3W qafMv28OUp WFmhW fuDK3M7902 N6kce rekvErwXy2 /FupD R/9qkIYbNl rbRER SCpulgiBgt dZTUL lPoobPQwI8 20kv8 G5x2PIh/ym KJXc3 EIQa8QMlVE ZbL0z ntvROQ1fSm ppKdr rjDr49tqxi 5uCcR XKbl+f/ktf 48TV0 v66K8sQEN3 bhd/j rUCk+p6IoR N/Qjp aLGA1lG8se PLGAv oSsWsC6/ap 0jAKK whzipBQSAl E1W3p /UF3b4PdG3 9QI4t YIAEwWbTlv 5WwYX 3cGQDhxMWq eDBfX iMASkGLjpd Ruiln NhRPtc+oUI Zn4gr QiI9qSNJX8 Fz0q1 d4Ad4S25Zc PUhh6 6K2lJDLSDB 1urC+ W5OPSYZ2WT /gyGl b9Kjc9+uHP ldZAX xI/xNzr0c4 TCb4x tcEMLE7zRB jU7Ta ST+t/y5AKj 1A3rQ r0pb5n2rVg 1N9hH hUEQlAnoZZ Dv5LJ 4YHSrgam12 1kuLw f0gEiFAyrj 61Ygq nyJj46oNV6 fG4Sc BNTLkjgqUm GwVxT UuZ8RbBEen ENTu+ +M3of2i9P/ Rk6we gG92Oj61Hu VM6/L ghm24g6uEz ONumn +B2nXVB5ZH f043W nmYXXajpMz HR+/r oxb5e2HmhZ vJ/8C 6SG+cgplbm RzdHJ hCD1RFO6nx 2JqCj U2UKGdp5Jw Cjw8L 05hbWUvSGV PYi9T kCS9bLCrL6 R5cGU nJ4Y8eLUhW m9udC 1ZVOSnQt9a dC9IZ Gr2OBLhZ3B tT2Js nTZ7BU3Tgp NvZGl sEj2MaI9Ot nNpRW 3hf6Ilcml+ Pgplb mRvYmoKMTc gMCBv YmoKPDwvTm FtZS9 CWXFdF3S7O nR5cG UvVHlwZTEv VHlwZ N7Sa561W6D hc2VG l069W5zaeK ZldGl aCJ6On9yrI 0VuY2 4ntF0eY0lj bkFuc 2lFbmNvZGl uZz4+ SdVgDD7orp oxOCA sNI5lghm1W C9OYW 9dG8yggRLg U3Vid CrjMP2KkFU lMS9U sNJmB6Vffs QvQmF zZUZvbnQvS GVsdm H9nQKaZ9Ve Y29ka O9aC4ppyvU uc2lF bmNvZGluZz 4+CmV dWY0bqsn9A DAgb2 VqGly5Pk3J ZW5kb 2JqCjUgMCB vYmoK PDwvRGVzdH MgMjE pEEGXAg8QT W5kb2 JqCjIyIDAg b2JqC yw4N4AeVFC gMCBS G4xCWlSlOi A1OTg gbnVsbF0+P gplbm RvYmoKMjMg MCBvY moKPDwvRFs xNSAw IFIvWFlaID M2IDU 5NSBudWxsX T4+Cm FiOL8dvgqa NCAwI R0ldqo3TK2 EWzE1 GRLuLb1EQB ogMzY lEdP2FR93g GxdPj 4FAD3gz5Mb CjIxI ZZrk9SbRjh 8L05h bWVzWyhfYT NlNGU 1MTctYWJkN C00ZT BmLWJiZGQt NDdhN DRhZDhlMWF hKSAy MiAwIFIoXz E0OTN bSfI3OKTbH GUtND TaCV5mCjCf LTNkO WZmNjgwZjF lYykg MjMgMCBSKE 1LTUc xERq0s3kia WFuIE BhuuP3iYDm IDI0I DAgUl0+Pgp lbmRv YmoKMTAgMC BvYmo KPDwvRGVzd ChNS0 1HLVBoeXNp Y2lhb gVYy99jvXy 0KS9Q YXJlbnQgNi AwIFI vCAf7ySV0W mVmZj AwNTAwMDY4 MDA3O TAwNzMwMDY 5MDA2 MzAwNjkwMD YxMDA 2ZTAwMjAwM DQzMD M6LsYfKpAw MDczM CE6DAMoBjX wMDc0 Pj4+CmVuZG 9iago uYCGqAD0ex go8PC 5Gm3CJMTRq KEQ6M cRtOHH2PNI xOTM5 NTAtMDQnMD AnKS9 DcmVhdGlvb kRhdG UoRDoyMDIw MDQxM oY9Ijw1RBw tNCcw OMvfJ5Cmz9 R1Y2V yKEliZXggU ERGIE InZHA5y4Bb NC45L jAuMTUvODQ zOCBb VtWCGK6YH1 I7IG1 vZGlmaWVkI HVzaW 9sJLsRFBr9 IDIuM M05ABT6TJB UM1hU KT4+CmVuZG 9iagp 4cmVmCjAgM jYKMD AwMDAwMDAw MCA2N TUzNSBmIAo wMDAw JNOjVOT1EP AwMDA sJU9xCuPgD DAwMD AxMDMgMDAw MDAgb iAKMDAwMDA wMDE3 OSAwMDAw BuIAo wMDAwMDAwM zE0ID FdBBZjUX4q CjAwM LQwHKM8OFS gMDAw MDAgbiAKMD AwMDA mOCI0ZDAkQ DAw BuIAowMDAw MDAwN AB8ILTuTXK wIG4g CjAwMDAwMT A2ODI gMDAwMDAgb iAKMD AwMDAwODA3 MiAwM DAwBuIAo wMDAw IKQaBMM1GM AwMDA eXE8qXcLoE DAwMD K4BYPpUCGv MDAgb iAKMDAwMDA wMDU3 OCAwMDAw BuIAo wMDAwMDAzM jQ3ID YjLGOnPG4z CjAwM UTkPQY6KfY gMDAw MDAgbiAKMD AwMDA wNzczOCAwM DAw BuIAowMDAw MDA4N VK9HYEoDPW wIG4g CjAwMDAwMT A0Nzk gMDAwMDAgb iAKMD AwMDAxMDU4 MyAwM DAwMCBuIAo wMDAw MDEwMzcyID AwMDA lHR4vDbQeZ DAwMD gxMzcgMDAw MDAgb iAKMDAwMDA xMDg3 NiAwMDAwMC BuIAo wMDAwMDEwN zM1ID QyJNPyFD8p CjAwM RCpEGW8PJE gMDAw MDAgbiAKMD AwMDA xMDgyOSAwM DAwMC BuIAowMDAw MDExM TcxIDAwMDA wIG4g CnRyYWlsZX IKPDw ePQ3tjmZbP SAwIF IvSUQgWzxh ZmYzZ WrlENK7BXc xNjll PdAmMBJ8JE NjZjI 1VOdhJu32Z jEyMz hiYTRlZTE2 NzljO WEwZmUwZmE 1Yzk3 ZTcwMWE+XS 9Sb29 0IDQgMCBSL 1Npem UgMjY+Pgpz dGFyd HhyZWYKMTE zNTEK [id number] ID Date Data Source [id number] 08/13/2019 07:32:00 AM EDT [facility] Name Value Range Interpretation Code Description Data Supporting Source(s) Document(s ) [facility] - ip6ETOAIzO G9iag [place] [facility] 5cGUv Center Ba6ytM4RBW NlRm9 siY8AXIp2T XRpY2 UyPQ8pt2Yd bmcvV 6eoFM0hoGM uY29k eZ6zZl9DWI 5kb2J qCjIgMCBvY moKPD wvRmlsdGVy L0ZsY RXiASDer4C lL0xl dfy6kGDuAW 4+c3R yZWFtCnicK +QCAA PrTWnHEE6v c3RyZ WFtCmVuZG9 iagoz QJSkz2LxLt w8L0Z grIAmcv1Ng GF0ZU PsF90rBL7Y ZW5nd GggNjk+PnN 0cmVh uIz9fBLP5I rk0o/ INFAwNFAIS eNyCu EyVDAAQkMF I1MLP XNTBQtDPQs jhZBc Mg6LkDALfG h+Rad YKyqMi8rRD yAXAL I9Qk2OYG6v c3RyZ WFtCmVuZG9 iago0 NGOen7DwDu w8L0Z uwRJvvb6Rr GF0ZU CuP99pGO7E ZW5nd GggMTA+PnN 0cmVh oFz9iTlaPk AA7gB 8IcRwTGJ3w mVhbQ plbmRvYmoK NSAwI U6vswz4BL6 GaWx0 ZXIvRmxhdG VEZWN vZGUvTGVuZ 3RoID woCn1rkWGi YW0Ke UsSLXIq7BI PyDRU MDRQCEnjcg rhMlQ wAEJDBSNTC z1zUw CFOo4FM9HS XC6Ng LQ6AYVhxhq 0BSPN mWte9mXfDW 4AtIM A6PikbuWhz HJlYW 6NVB6ki4Vq CjYgM CBvYmoKPDw vUGFn SQ4eYOBdSE NlTm9 dKN3ESR7hp yA3ID XuHx2XbGOj L0Nhd TZtk9yzG7T 0bGlu ZXMgOCAwIF IvUGF nZXMgOSAwI FIvVm jgg2KiSRTg ZmVyZ L1sSONfNKE gMCBS Kw6NEZ3yt1 JqCjk gMCBvYmoKP DwvS2 phf1bbLENu IFJdL 1Q6bQJzLWT nZXMv V541qsXsIy 9JVFh LSGExLQ93V T4+Cm MhCP9nilp0 IDAgb 3GsQmp8X8C vdW50 IDEvRmlyc3 QgMTI lKRTMO5oox 3QgMT LhPHDPJa2Q ZW5kb 2JqCjEzIDA gb2Jq ClsvSUNDQm FzZWQ gMTQgMCBSX Qplbm RvYmoKMTQg MCBvY moKPDwvRml sdGVy O3WtWJAmHQ Vjb2R aI1uocft8i CAyNT c1X22tCj9+ c3RyZ WFtCnicnZZ 3VFPZ MurQzKm2PZ IQipT It6tHMwmZs UiRLi oxCRBKwJAA IjZEV HBEUZGmCDI o4ICj D9SfBwrJLD Gx6wQ ZRNRxcBQbl klkrR nfvHnvzZvf H/d+a 5+5g43y762 WugCQ /IMFwkxYCY AMoVg W5xjLkJ4CG 2AHAQ zwAANsAOBw s7NCF vhGApkCfNi MbJkT +Tv4fe0f+f sq0z+ MwQD/n5S5W SIxAF CYjOfy+Nlc GRfJO K4SoRY7W0v YtjRN zjBKziJZgj JWk3P jFSt01bmmC znzMo X0EhrbznRo 8OTcJ +ONORK+jJF gGRfn VKn9Fy2sQ6 N0SYZ Axm/ksRl8T jYAKJ FfLzHaZ4Ta LWOSK YHTLiR9VXF IyV/w 6y1OoS1Qla /Fzsx mCwNft2fWV lxTho 5MQ1nwv81I 54vFz TSAW97h2hA YmRlZ HOFyAGbP/F kUeW0 NvdM61Jd2J DBtLW 2+KNR/Xfyb kvd2l l6Ef+4ZRB/ 4w/ZX fpkNALCmZb XZ+od taRUAXesBU Lv9h8 9gQhZUap26 Dn1xH xe1VhSP1vh nK6vc 2XaJOJ7mWE /o7/q oKa2KJ4wOY r7d7+ VhePOTOJJ0 MUNeN 25meqZExMj O4nD5 DOafh/gfB/ 51HhY R/CS+iC+UR UTLpk chFUx5A2oG iAWZQ Jyoti+J+a+A/ D/qTZ xTaP2qjF4R ZYAqU hGkB+HgAoK hEgCX ieX1NkwTwK RwP5z YvRmZid+8+ C/n1X uEz+yBYkf4 5jR0Q yuBJRzuya/ FoCNC MVDKJH1oDx 6AMTw KQ2cMQ9XB/ gAwJB NVyWuCVs6R IUkAF EIBcUgLWgG JSCrW BwmAT8fJR1 gzZwG HSBY+A0OAc ugctg BNwBUjAOno Ap8Ar MQBCEhcgQF VKHdC BDyByyhViQ G+QDB UMRUByUCCV DQkgC FUDroFKoHK qG6qF h4XvjPONjm gANQ7 egUWgS+hV6 ByMwC abBWrARbAW zYE84 YN3YY6IL4L I4Hy6 Pk0ZYoTD2O O6ET8 BT1DQXKv+B pxGAE UT2drerNBl CRkKR eCQJESGrkB KkAml J6cEjuD+5i kiRp8 hbFAZFRTFQ TJQLy o5ClmZvwtF WoTaj mhCOSQ9tQr RV1Ch qCvURTUZro s3Rzu pHvRg7AL6M LkZXo VqOSgzu3YP 0OPoV GhGhC0mfft h/TBw mFbMCsxmzG 9OOOY UZxoxhprFY rDrWH OuKDcVysGJ sMbYK vvC4GexAC0 59gyP beDJ5OY3uB E6IK8 VL7WntL8EP cBO4G isS3uIhuH/ F8/DL 7UM8XcmGye g/jp8 pTKVTAu4HF EIqYS 4xumIIRWv9 S3hBJ MB2vT1YpLH AuIZY ISsMOD1bAs 4lUUh mJDYpgSQhb SHtJ5 8t5BT9IXCC RmQPc kxRZZ9Tjgg fId8n i8VyOtbnLT jwFFY a5Pq8VvrUe KaIVz VR2PTokHwt WKF4R AVM3ewNKab Iia3E QIxgKXQ2WG mG0rQ jNibLBND3K 3mzco vyBeVHFCzF iOJD4 VGKKPsoZyh jVISq O8BNouD55L bqWeo 4DUMzpgXQU mmltG 0jw9GcXBfS nUq0S j9MweccORr doRvR A+mq3KG4Ei p1+jt KGQXBVc8tW tU21S cjv0UzzFqu 8dVK1 NrVRtTeqTP UfdTT 4Yzer6cq72 BpmGm Ea+Sm9XY0c /F0Dm 1VitshxJR4 h+fc1 cU3gPNuAVj o7tMc 4QkO9qyc79 rSqtI 6o/WPo76qv Z2qvU P2nRwtCwZD TUegs 4EynO2fvfw Dk5HO pDC6SrK0KZ X9dSW 58icCjbE0p npReo N75Dg73Yl8 LP0k/ Z39gxwOZyr GIQYF Vo2Khh3qrg zDFMN pbu3Lw17Gd WKMNh m0XV9hShCL MM43b jW+z1W9mOr ZZtJg bv2DF1naNU PdbXr GOMjwY6cio zEbMo kGGetT8ayB hy3QF z9OFlhCvgn MEtOT rlBzPM0c7s 2DLQs tuyyfWRlYx Vtts+ q3+ohsh29o 3Wh9x 9JjV2dKvTK j86ut yU8Obxl04m zyXN+ 5q+c1e60tB 27Ht9 iaj6Sgwf3m v8G+1 /5Qf2NOtEB NYdLR wDHRsdbxBo vGCmN eHt68Bka9T a12Ou w55ikLSor4 2PkXF 3DJcrvLf2F 5xvP4 8xrnjbnquX Jc612 opjx9LPg7z lJ3XX wXs1L5Em20 D55Hk 7dWs0xtvja Bz2de 7a5von6v22 xn9kr 2KW/E28+7x HvQh+ EN6PUxu00I zzfZt 9V3ys/eb4X fKX+0 f5D/Nv8bAV oB3ID nmAgZa5BXr X1BpK CZHcMLB6OH gkXBP WFlXUTX9gU 78w3n C+h0nPOXiM Dtoff ZoUVIbE0yf gkPC6 7CoxmyR3FJ 0b+Au mDJgpYFryK 9Issi 70SZREmieq MVoxO yr3Isg8cAg MdIY6 5uG1UhtsFZ E8R1x 2Pjo+Ob4qc X+izc rTM6uX1zWB H6IuN FeYsuLNZYn L74+B LFJZwlRxLR iTGJL YnvOaGcBs7 00oCl tUunuGzuLu 4Tngd vB2+S78ov5 08kuS xYIj2Vtx8n njyZ4 g0BygOYiKJ UC56n +yjEgc6GL1 3bn/Y nNSg3BPJBm ZhxVE oWazf7AeJe 8zKHs 0vexpZwk1u X7Vw2 AWiFYDJM9Q uyu8U 02c/UgMREs l4ymu ZFA5WkCrr7 90iec b2cq3X60yS Nyyfy ffO/XoFawV 3RW6B bsLZgdKXny vpV0K cpf2hY923m Wj2+x m/NgbWEtWl rfyi0 LiwvfLkuZl 1PkVb ChjTd8F1iX 4sVik BSVyf9cYpq iNoo2 Wo5bd4kut0 fS3gl U9lnIsaW88 /mbr7 2cw7PsB945 pK0Zb DMoWzPVsxW 4dbr2 4l7TMcAGq7 vH9se nr1fM7LWnI 6XO5f pcYUqB0Z2v 7BLsk taGVzZXWVQ tbXqf OOE8ZtRB46 7rWbt euaRb0v1l+ zx2NN Jm0BFXijhs 2DvzX q/+u6Wh6wP fZh9O zxwPgZ08x/ N+rq5 SaOptOnDfu F+6YG PP30Jxd3JC ZotZa 2vh7B65oHU wcvfe H/F0jYce2+ nt5ce Aockhx5/m/ jt9cN Gr1zNyW86w Wf4XW 0HtaOkE+pc 3jnVl eEj6V5lBu8 aeLS3 y0Ir21fO8/ cf0z1 Ae2ihxOpHm omiE5 9O5p+cPpV1 6unp5 VIvqSm329j JPXOt V2zo2ClC3m PnfM+ w8lgjR4dd1 fyxC8 8Pib8dNqi4 5HCpc 8B+oOMH+x8 6Bh0G P7bym5raE5 3uGZ4 3fOKK+5XTV 72vnr hDnR1StGbW 4etR1 2/eSLghvcm 7+ehW +s7bo3Hty3 xZcxd 9t+Se0r2K+ 5r3G3 40/fOu5hP2 Puo9O bWzvLC0D8d xJz9l //R+vOgh+W HFhM5 N5yZxV5fmf ScvP1 28hPcF9eXR p8U/K /9c+8zk2Xe /ePwy CKR0Xg5q6K zTr5t fqL/Y/9LuZ e902P H6NbzyRi5J vFF/c +At623/u5h 3EzO5 77HvKz+Yfu j5GPT g3mvAT02+A /eE8/ xBTR2pc7Um ZWFtC yNgNB4exyb xNSAw QJ9nzvb2NG 9Db2x vclNwYWNlL 0Rldm ljZUdyYXkv U3Vid DxfEW3PsZC nZS9I ZWlnaHQgMj kvRml eaTOeV2GbT XRlRG Gqw7KbF0M7 cGUvW P2mzfNucC4 XaWR0 aCAxODIvQm l0c1B lckNvbXBvb mVudC D6L4mtoez3 aCAyO D4+q4CiEPN tCnic 7cExAQAAAM Kg/ql nDB+gAAAAA AAeBv jyps9EEM4m c3RyZ WFtCmVuZG9 iagox AeDkMX6gvc o8PC9 Te5fsmbNmI WNlWy 3FG5GJECAa ZCAxN CSjZHLiB1U 1YnR5 dGJlDQ0pO0 UvSGV oS2y2GOA5R 0ZpbH Rygw5WiPN2 ZURlY 97ePL2AmCT lL1hP JakcD5DgVG Vjb2R cIXSidAT6A C9Db2 p7dT8eANL9 Mi9Db 5atvzHiDs2 QcmVk gMS2w0HfZQ UvQml 6m0YeulCgu XBvbm YquLW3Qe6d V2lkd DdqZXdoK3I NYXNr NCI1AXHdLj 9MZW5 rvMegMEN6T S9Jbn RlcnBvbGF0 ZSB0c nBdT6AweRI QZXJD t59kv83ofk QgOD4 +t6TqBEFvY nja7Z bDEDQQ8lkv 4iRzJ yH8VxvhhyO lc8El jhPjxEhCjI ormtE 6ItQ2MT3EX gIioE JDlOQ4gldS gDaC7 IuAArIZwyY BZVER UFFBQECURW CqupG f0YOV9M1+x 3fe0e Ewoq4H0toO vf976 nb1s1aBTF/ K+cdn nFw0VCF5HQ XkxJX yh6+uf9dv1 8WkV4 PgX4MzI2g4 +Kjn/ 3tE8khD0F6 DPzUL ++jEhG4tX6 M3PTV ulUwTf8B+R pEXyx FDtYa3gQga RKI/F 85MBStV3YA s/tX3 xBzXAFM82a QoUUC NS1ZHsR1NG Li9/t dIUKeCJhMU 6SWVj XUhy0qmz8d PhsOk heIJpa09zM WW8TN N/lABI4H34 eoQg8 h+6cDOJj0k C3NAn J83jIev05y CvKwr 0nI3psf3ql pXtdr uXNckCN7WY O7kZd 3CgkM2izne df/qm 1q/2COEqVQ w9AJD T9Bkj+r2Xe QEUKe AngDmeQGRO eaI2H mnwAxXmEIm n8yU+ GmLQyxMJoM RICHEY+ /81GRPyXmV Mc6PB Gg6yZiBvdr 10uni g8UqTrk9+z l42tj 0CLCnOHQ+R C7nVZ P03+mg+zPc YckZU HooHABCVqa m6F1A Zk/wwgMGA6 zdX/9 tbDoGYb4JF EdrIQ tDnoZATmDX O/9sY KtVKTYyJ8t vbX3H XdzcfBQCAL kS/2C Vh9b5w713k Qjjzf 9OOq97kA+d Dg2Pu bGeSanc2p5 BGgoJ PUXKZC98ZT Kdro5 4jtgYm65Qi Rofrn DvMIzbVCmC UAZfr r7/2yXVGgx 5OKyA qLCJhGtuH/ Ieteb kiRSMeMGSJ 3a+tB gQxzPGHByN oIiBS Y8STJ4c6fG sxpCT CVst0+9SUR Of1/h ci/i0jOTAW +GFBj ISdxzEdmz9 lChAh 0NWPn6ZzT+ silcT 5uq2JugBP+ AUVwp JfdgrL/snz spiaA nffg7v2y8Y eLyJ8 4xei3cJTNB SZawx B2FoWUitRJ PdBak S7jH4Weojf k0Kcb bgvKLamWHx Ej8wi L1R5k0GaY0 timmy/e 2YZ7VW7auo ITUus 2oYREpuPVi +7zTo JiApWpz4Nx 7zmvz WfNL+BJRc8 UsJFJ Rwjdg+99pt lIghl /VkSgnFE6B YMG4R w8SoBZVepd 5vvC/ Zej1z0orlf mbTw1 Sjjw6p5LNG /QdLP VZyd3gptuT tP3ZR CFDWw8rvpi EwYH6 1N9w/rqDrW VtvfC HHwjTRiGYL SOuEF zNfjGv5WEz Fp9wY G8SKBndFQS cPl7G xCJ6IJst53 McQmO kywRE9zOIV diky9 LjFHK+IvPi s678J zoMmHa+2qe RLxdX yIBKYUPyVe ZypdT K+PlugtVa4 /lDSq sMZ3Pros1r TiTeG AcLhDeH7TO ZnYeI zKIRr75Jdo CTONC i6pMPFSIv+ OThsz fIgrPaVNyn QcsEZ GYFeKcoBc6 9Vm9p Gv8NpjMMqG 5pE45 bWpy5+mR8u E4ASA 9vbJ50B7Bp aeKTD IJpI7SZDGX HcDST DBFdYwOjp6 Ri0aK /fAQUXIDrH ZJSJr 5TfBBz1w5I kOon8 kzcq8vT/Re 1wSAN dHszxIKwI2 vBrrx mRLvGLvjpm iMzbF gyqjPHLeBL XiSa+ nEwbutoz6W WYjBK V9iWvI1YnA 91PQQ Dg2nTSNqZu DzTdP c8ipxQVs0h 3b4RA i7QroblYpr 6gRjv VkIN5vJCvu 2qrfS pN7WA5LDnX Od/Gv 0Pd6xNkg8t tvGUh 1VX+WOZrcV jB2Lw NolsAej0dZ vDCHW JMetDvoOmG ohj+l lK2eYvEKFt lCRTd MNnQ1Rf/FA 1qnI+ +EAyiUx+Nl +MTlS /JzWQXZnDh oJbKa Ukhg42FiGX nrgwz XM0OQDLUgP Rmggp K/0afZ7YA/ JSSfw K5hKXluqoK vw4AN Arn8KOG+Es +3zQA 1zDmcOVHpK HpqRg RG/7lERBBO bOGC+ XkJckwjCyO fIk6O /hckTzzPeN rX5xC o4vETaulmR pflIg q/iabqOfRq hV02b xHXZQgt94u BN8yB HZ6mtoAuFJ GDrtQ LcLTg8fBjE pD1gh I2Z6dMWA6t etCzv SBkI1liX/s KqHex IiMJFfneEw xOjFz fACX5CT/ua b31N0 Y8u4/+VJHB UQqkm /OfI7GHrW7 rg3M5 V99YHQfFay cDR/a por37UtfV9 fIQCG 4g0eTI8RDz VVccX /tw2N440WE QpNhw UmFA6mL85K atNge NqrtKNP6Au p24/q Cf+6Z8w3gm fAsHq rFKPtQc4Ec XAKRc Zb9SAMR+gz pfSNh N7xw++ne9Z lzB8s qCh09s1wRd vGZN8 vk01iZaE3n xDLK6 2wJ+3TRwJM lOv2i y6Z+6YPd4+ BR+cU XoCWIBuPof Ul6vw ijYT6CBoG+ 11mt3 S7yJdlK2CF 6FSJC CIWPOs66HA mH91/ 7s7BqcqMNT MRjhZ 4vlxORbUdE iBjw9 JtM3k37kCu NTYks DImyX5RpMr KRq7f xR0JSFUAtl 7SM2i sDlFGM50tW FEBxG EPXyA1omSC uuRDR 9wMBv4WdeE VSAs3 K/OY4VyTG+ SU1ku K/aS6YvgZX B41b6 DOiKT/ZHvJ KEZGV 9KrZ0iEXJT ciC7l nW7OEXbDmq 6SKvA j/s51n+y7u OJo6D RMVvrcL1th EiKPP JTRSdFEQKv nqZ12 qzu1wWCUyI aNE7b v+GtVYy2Kw qjM0N hgcuHi2ILR eQK7q zvqvEkL1Zh kJwBH OWCS3jgz68 L4dym iwtppOReFm mCen5 FZsPhIJhlz spf7a qZod4xJax4 S1E2T Jicjnu8/iv S1dnu olAHNj4rwz BZHNt olYNiFTzyA PMvW7 dvD+ERhPxq ZGJzg GrHRfblO39 iNfgq Zphtt/HMNf NyIKx b9MIWoGj+2 to63Y FJTfNdoTjq QJWpo QBxqxl9FDb b8QIr clb5bji9zr g9FIe CJvt/5gjJz DnGHs jRWuNsdtgH lfAJG QQEKVjIL4w 3VnVH w5OH7LBLzs CDEoJ E2cR2HaS8y wIjmj RLHss0rXFN kFpXX yd/rarbsTl wvg/c IrKF8fuJek zZy/e 4Z8qcg3oKk JmCIk JPH04iIsoj x1EWU KXvqqtLKqe y/lRW qBIcAD5eer 1DPqo 2uTbQSouGK 1O9cL ret3mtuIAN SHQ9q IiOSPFhETq yi8qr N0frGbDu/Y wlyYR aX5Sd2zn6K yVaRF 5owCkYePno hNac1 8iIKA3D8ky qgWqU jtfNYxYuPk nHIs5 3SOvX2aJRW cRYgQ 0CDZtjHS3O ftHb2 oxNlP2Hg4E fe80N YV5UC2rsb7 WNidz UX7z9oJWlR ub5Nd 3NgjEpBwBZ vAwEP DVK5q4/Xb9 2EaGS AALXW2DVH7 hYi+R 8XIe5aP3jS c+uvw gbiezeFo6h uel9P OhddQ4RfP3 joevz hiYyNzUalN jc0JH SDM92wmvUy u4uBh i0EA4aCK7M yR/jz xWuUDnNEgs TyPJk 8/i2/W3ror ZchfW 4XqDm8J0n0 qHMA9 UfPM3Xrim0 IiWuu k7/TiugiiU oWWeH uuHM4lw6Pq FNVYe SWSVQowFJU cCO7S EInGiGhJoQ cUaEj BLDYLlPVGj rBYjE blrDff50yA 5F6NH mLZdR2EOFq V7qdy Dd06S67eJV stkty vTdK5ZVNG8 JDxZ5 VUPOu1UeP4 xt5jU CnhgyWeWNZ osh29 Y4aw3Dp3W+ dsCZY +ZFUaXqXC/ AEJMw 7vp9Xy40IW cQvIE uCLAupNc7w tPoWE QiZ2vlBUcC u8s5d c1AAMxm61j 7Zepl 07n/XLPU32 mdRBA dY2Gz1NRGH 2GEKk U+Apw92OfN 6GIGX 1/S3uO0R6t qz3ug ddFk/GlbIa mYjo8 b+zhQwkE0l nlOE0 jcTdbDdItB puDzj VBydZ5s53x p4HKF Yo6wThjVPM Lfyxn w5/i8Of2Y2 zvgiU wsJv8tE6EP 5Urck trcTpzDxvU CKf+1 9gNzh3FF/R /cpLA hWhbHkhA1B bmsek aO1pQACBwv xTVF2 iW5QmXmC4O eLqA8 SkeUJg6Xpp Bisl/ 4bET1/tjcb 5N1pY qtTfeKkDt0 Arax4 v1dhW1RwwF 2kX7U Ul0SnkMz9m nlMvC gWeOPJi67R L8Eem GtbXvFPn8X no4UR yaFZv10Lb3 sVgt0 Kk40ElYwfz 9dOwW vzF3HTKixT sACQh zs5PrUBxBO GdcjI BSkAeNK0my y12d3 KMF1xm8hVP G6wTg CoLWKUh6F+ k25NI wcqRyLRiXS ivrCu xtyBDE5Jp8 Y1SvJ g7NqfHbWkO Nt2Ce fLfpWOhc47 kOYKM qUjDNypTvn OIbX3 tbM0fVqmIE +WAOv lkXAleuqFF 8DGNH By70SL6iiW 2WDCo PQHyAy30dp BZaxP Wd/FubSMc9 clabh 9NUTdeAL5Q bsvNI 61wKbr/u9z C6w8s 2SkTP/fEuy 2oDfI 2TKrVH9Np/ NWB7z rOEFDm8dU5 eAMTC gs5fijBvKF K4SMn dB67P7jtA+ abjps AuIX3FF/TK RQFx/ 2L/dwBUjHL 6vQF2 45jrAAZ8Xp 4iJNO SDSG06AEt7 G80Ge PD8Fet5/2P a2tDS lWJ/xxlxpd dZX/z nVEJIbLW2f hn9BA ic6X9qzV9u VxUeL 1xE9h19ViT A0+V2 eudh833Kgk sCyga 6/0l4DsFXI 3yElJ lh2ZpJzfFQ lob0h HR+9U0YN/B wP+v3 YGwVR3+DANIELLA Uy/zs 8nh1SwT1rQ Hq83D X2yGTkWoQU fe0Py 4uwsFUHeMP pEFU1 ueSj1maLZx jriCc xMtLmigbqN Axsem UeyZXSm88V jx/vD NFfr8CvGwp kQKTH P7bV4z4adM Bb5mI /MQmOAGc+m tTx5L fE1Ql5kxoM 6aauR kleJTc34p/ P0ooC Srs7E6VL21 70T/X Gu4ZUiuE98 fZH1+ LzEna27sqO xtR1L sNqE3EGudU 3ZRzk 855zZWcUm9 3CKPp K3HxRlkeyg x7N8/ lKPqH7eOWI n8eHz /Cc3dTo13n 3lo/B 0s3wTzqDa2 r9nUO vln1/5X76N mbbFN ZP8wsMfe3w 1CWMg TGVbExZh7P Pa+yL AmaNhe4BxV d+8B9 +zvHdMsGb3 RnXWq 6Du7lF+oWX 0NfiZ nrD+UVNf4d FTuhH ryjwlLveF9 K4Tve 3r5TFFJLl3 i1947 HU8YEVfW8R +/zNW iIlfvEdEra WtqW2 A+zf07PDCE lrzrs TyuDC11JPs K/3vA Jg2bEBBwWm IxOqe 6ubVs8D6/9 cQfD/ koDLf9oD0Y YJyWX tQd1tgraDI 2zidc lL3r9hv1ut ru1UP P52Gzotc1U pVVNj R9tww1Vy4G aLjbe G180kt1GfQ Xddyo hjrYBHyY4O GOnch sa3/6FpG3h +RR3/ pW3kSBbFbB geA6f gxTItaW3sH ZrNA/ 5xoFru6zxS Xk7YE XB35BbNVRd QgCym 5oMIkCymRL TvKb0 v+3iLwumfK gOedq TOvww6xfhR 7/D5b oOc7CEI9kr 3RyZW OyCdDxJI1i agoxN nVeIU4lzxd 8PC9H sa78mLb8A2 MvVHJ hbnNwYXJlb mN5L0 zcoQI7CJ5D IGZhb BDpW0LHHSH zIDAg Uj4+L0Nvbn RlbnR zWzIgMCBSI DE4ID AgUiAzIDAg Ul0vV RfyBL4AKHy lL1Jl h262uoExfy w8L0N cbT5sL3OiT 2U8PC 3QOCIqlXp2 UkdCI DEzIDAgUj4 +L1By u1BEFECnHd 9QREY rU2ZcxJNvC 0ltYW wrKtNmFO7s Z2VDI W9UdVLgGNc dL0Zv duV7UM2AVL JvIDE 6VVKxWa2VA Wx2ID ZgEXJaFn2L aTAgM SAwIFIvSGV PYiAy MSAwIFI+Pi 9YT2J mEZB9CInkv W0zND D7TYceELLr MCBSL 3RnMzQxODU 5IDIy IDAgUj4+Pj 4vUGF hHG42NUUqP DAgUi 9NZWRpYUJv eFswI DAgNjEyIDc 5Ml0+ PgplbmRvYm oKMTE gMCBvYmoKP DwvS2 dhp7kgIzUr IFIgM jMgMCBSXS9 UeXBl F6QgS3DxM5 NvdW5 0IDIvUGFyZ W50ID fqVQHGEj8W ZW5kb 2JqCjIyIDA gb2Jq Jyh9A1gvq9 VwPDw kNl0NogRoy 3Bhcm QpO8neE0Ta L0lDQ 9Zbo4JsLCW 0IDAg Ul0+Pi9TdW J0eXB rG1Bpag3uK mlsdG OfD9VjNQKo RGVjb 9QmA07irAH peFsx IDAgMCAxID AgMF0 zYLxkOC9PC 2JqZW K7H0Pood3B eXBlI ZIcOnBry4Z yY2Vz PDwvUHJvY1 NldFs gITYNO0Tbt HQvSW 7jF1MMD0ok YWdlQ g8JcHBgAKb dL1hP PsezQ8G5CF 9pbTM 9KDq9HrDsF iAwIF I+Pj4+L0xl bmd0a NDfNN6IKn4 4WzAg MCAxODIgMj ldPj5 knDEdOF9Xk JzTz8 x9QgG5MXYB cMkHA BRTAxUKZW5 kc3Ry ZWFtCmVuZG 9iago yQRJjAD2hm go8PC 5TlWu2ROFu Rmxhd GVEZWNvZGU vTGVu I5VgBRH9YY U+PnN 3niXnfNm2y NVcbW /bOBL+vr9C wOEOD rBh+CJKYvd TmqSt F+qgE9r0w7 vuB8V DUfMi8BClW ru//o aUJVGyJYty DHQRt VRgt0D9jDh nhmQs 6w+OyEYO3K OFZQv WBUb5gRcFs J41W1 1infhBBO3c 28T69 w/y6+rLxGL YsVxu J7jGSuw+ar 2dWhj h4t/62br6E LxNLP h0+cPWq17J gRizM SbWdPlpMBr /483F 79t81d1e18 76Q40 EI8ywr1ORn sG43c xJTofZiAG7 Jh7RV 6esKm3NHP/ Rv57N hq85nqFiva tZg7Z VQjj2Yd9ti Y82z2 V7eOn4mZm4 bjexv 5rm7nAVG+H Gj/Ln rkOcQZc2KS 7C/bf bzKW4Kj2b5 /+Ys7 x+HA9/yR8m jaw54 6dO/d0FTGA QLP0o PTRr6XZmTv fFxWw 3HVhALot2Q CZ7Yd s22LZTwqnJ LIRS8 cqm5W35mkS 8Zk6d BZCVbhiQ7N signv KxnM9BTSKH G/fQG XktO22vU22 R7D+9 nHjryU/Plg GUWGe 9//LXxHMCb 1sXbS T2P/ycAPmQ WCe0+ HDfVuQcWTk PIkXK 6tKeEtRFD6 KGx0F 34qBlq65M/ 4Gc52 fSgNunb+HT wizt6 JuOH8dy8gz R67yK UzhM7KnWFd 42ZIg H56P8DM3im lwPX5 /9fnVFsk4M 8Icy/ YNR3pjCEbg wjry9 F4Oe4kFeKw c3jZP VJQ9zQKHLX yHYiY 6w057nwX4a NMjfB BJ0sato0w9 N8HVN FwGzVPLLOQ UzvYV pdniFdHlDe P5w93 pnJ4LQVStl xkwAW NR4+sg26GK 8XQRp jmbeTLbLoM S2cyS jUXGmkf1rn nn8IW wRAgrfxNqQ 8L4i8 ryBH558fIu zj99W TYoDj3RgAh rZBPM SYKm55fuga 92aVq 9Q/IhZG4H0 zKzwi EgE8TihwwS heXgA ZqE14w8fHE bgs66 SIdbyCp5j9 Cc1CY EuqxNrn1kv /YQ7b cY45DFyuPi izSzi gI/DSoLMTs k2ofA u5oEXWuH/s iP/ed AX+DbYOXnH q2/7x mjRr64z4++ yB9t5 c2xvLULsw4 cHMEl Wiz5ckfIh8 r5N4w DlFy7fy4WL PWTae 3xzAs7L7VM R7brY Av9QesANft xYTpb +SxhSiJP7E KpZgc K+tXfr68Cx AcgDY qHquCXNiIA jS4pR OLXp4ytTWK H4gNF woryp+xXlH 87+z+ aDeT9iwrFY YMJOM W/8Ov1hcL6 GMhlr n8At1opZVF QF2si ZdexU0opAy B4Dbm MFP66qkGwf L+Zi6 mQ8AI2xynx ghwYC NkIK+LF44k S62pb AzB5KScmhF qXmT6 aaCE9lvhZ7 vf6Sb q//gcVXKxA VDOQN lmJi+qiqrc OSar7 SWYjNQJa6I sH3Pw 6urufFmjve tSCSB SJV0JfgBpT kpp7E mpX0mfG7uz wcXhz X7R5CY2wqS ruajo 0So9BwMUGN ip5Hb duXH0l6aJ/ ifn4b vIrlNIEsma x5JNp PfulKg5Sxc jgRBm uVULaljnq8 +Djhe VBQs+x1pcw mEOGa bLZj2BpXJa e78bv HsajIkvey6 dutRU +nfvbRZlOR 2CBLh 25aYQ3soBq VMlBM 2GamRxRkEd O85Xh +/u+2jmRdT ftHAH TC8PoPIbHb BTxKB 5l3DR5KCMb yhF/Z HDd3XNTS/1 AFIdk gLErIAnsPo tkfOd uU+qe27qiq 9P2QG Q0kKfSjr3i o+0Sh AnGmPaiXcN mb5MW RUe9F5KrHc HowLp QZVRuSjUba VgD13 TVbMCFIKmw D0jai r/rpXMn+cy tigK8 wGJSo0j7Iy ZAGEs r6pJ4ueH2s uu0Of D0umftI7hY rFF1P PEARwF1JYh xJ4kl ETy5eWIWKt ezzCC QSfrZFyAbg Z1Sju PhK4rDT8gX +E7tC 7MgK5YDrUl DkM4N QpZOcG+wTt hBBHs GMhWUrV6CP wyxhx Dek/DeYJ2w LBxdA z+zSB8G9xk TzJDN +8lt9jrD7s DD0UT aqNnVH1PBP V88Ll GN52gfxbD/ NvIJT VMk5fC7hJT ahCzE DR3i0+Po9v c8gT9 Scq4uICG5T slKwc dv+VhP4wQZ aH2r9 EXZ4NB33A3 ZLTJy jMmLOl6Cwq mWjV4 y9nncdzj88 yPcFO 7WTZOvUf0D v2K0D 3314XOcpGF qYuO2 uxGYHhY665 py0Zy iNf63AuhnA wWBfv xMbfyOUSRM RAWjM 0tRNiA/T4I 1z1TU f6LRDiy4b0 QqQHA r9opblj+zw MxriH 1z4f6rk4GH P00T8 PQskfxT5zz cdX+/ lhu8lxbKnV A5/5+ xJX3Ojt48h qb5m9 fBjd41tcuq yi2bC ZCisqg4VG0 oq1yp u4qzSWngdu dnjAj riWBI2d7J7 0sJIO W5WBUTsq3t oFOHs tvpWgQdpl6 noOdp DxaX0nwu2h PkTcz 1UfWddjslW fjK22 IqcyfxPJSd +s5xL JMHDJdCYir kOe5t 3ZHB8RtREw v/Sfl VcVbiDLFWz YoJfL xKksnYMzG8 OtU9C tWsjAnpiOA OU69T 0Kf7EjEGLm bQA9S N8k/FzOAJY l8PQ2 EJ4q0RLxDV zzw0D sahjebt7S0 tfD8s iUOB2AQsL8 b7W+c EdswhiLeWW QDohd 33rOcO1Dhm rd+46 ZLo9hsPVxq 2ToEd 2Vok9oAqkC 0ceXd gYiYrJ0oiJ chy2O 2hU5OG7b0F HRPSH TV1So0eSGz 1BBHp 3d5panGzA4 G6SSo lIZRLqiAEE Jpnnm EUxQBJTRAz cyiA/ u6+laWea3i FtUqw xPuOzuU23g ufq14 dagcCHstKz 49+P2 82QUxUVzo8 5iAG8 XO4q2Ne3w1 XaQPk w37Oe5mZef /Xm3t HH0MgtszwA m2jfk bZtPAjZal3 f/pLI zNlHFFTsEF cJEg7 5IEQ8TOAaR 6Q6h4 FnTqEOtwd8 ++Rrg alAq4uXx7n JFsZX c1C9LhqE2i hynUK saCTF1xsVq KvUje JNR/lMedUG dq/1P 9mAU7RD1q6 0D067 oQQUCAZwSP sIkIa 7XAab5pFNo FG1q0 keaMJl46dG jpnns 5UeIgpjvmO HHXwu /ZRgo4XE/n hrM8X qxRKoq8U7L 5Xey6 HGhDKPLeix dHw/s u3vLQHiGoa mh6Bw u2Hp4OIFat YkVdV 5PV/z6tIsD 34LlR TNYO0/66Kp ICmXA hZlFew2/is aqQeg cLfrpqjSzN VjZI4 ZKYnT1K1N4 piUAe 5pJDEQYdA5 6qKOQ xRRjCpGDrF 35lqX D7Ne1K07k8 juWpe Jaj6VUgesJ iEkov G5wcemF5Ux rkrN3 H4WU29Vrj+ Ft2mX u1B5s216JM 9q0fY 4IGb34OAng Hin6Z YgJM8qSYDZ p75dv z07c8ZwqRp ZlFRS N6Up6xyBhD zOABe 9xLEryWt56 ActNt F2M61E+flq OzTr/ KU/KysXp/m yTKM9 UPzYVHJll2 teeiv 74gGP3b6Bb yO7kP Vb7DTsQrRl 7k3vl yr1f37mrID lcHVQ 02ea/eV2Kj Jkt+Q zTe805nsTw U6ekJ hRco8k5Z++ jXuHX AJBKm4PIJ3 taWqL d5BU83Zu68 4K+5f LCAYB0f47e UJ/4I 6KZWjXhalu 2Q9pm Le1LAnGCJM wni2h uFh/Fx2af4 Mg81u nxAeDJ9RmI heKNr 0b0iy7Aqe6 m0SpX q/kU0pD0JB m2DpX JbkVRG39pD DXpXl ZrFO/I2cl9 aP8nt gMm6nSHGs3 SjDFj BbcbdFMpsk 5YhMh L0ZSeetXXD ygMQy Iu8BrVErqF m8e4a PmDQB5qJ1a 6xLa5 OFPOnQVs5v lShK1 ZqTIzhZ0TQ vAZrH c93CcZeTXz qpyUH Q6YhcmlSGR H1EYt LxM/RGVfKD khCTW zKsZZNKXpF 1TLoZ vmt1VMr0uZ nADDo gz0QgPJNAx dwTd/ rSNtpYDJ/j 8Es48 8j83VtjHSc TSa8e 10menJeGDR kqL6v I/OvDGe1R7 dBxbx X+pipSR4Jp l46ZR CqiKf+9Hk/ yD26S j/lLVaPFfp o04ZG I1a9K8M7gA QqwDp WYowJ4yCzD sRLKa 17YkBdiv7l ZxlD3 v9GcBNuNM1 VfsIR 5k1To1wqnR cmT/5 e/MK7FizAm SotJH DwrGrsgGJv MkEiI 2rD65ufjrw GYpgR c0+UyOHRZP Y7USQ li7io9d0Cl LOCx4 2+RibN9JJy 1cvpQ qsPgY9w+9C Gy9fH 4wKUGfjr8U /lV2i QD6aGFajbG 8lrr1 mivjmJieLq NeH1P p308z34p3x XmwXk vwpdOVz8rm bmGBy rrNF/tQOUe 4aYDl QCCgaXTffu uSvn1 UcFW54Ry7u 5kOjK yOOLaiBglW +LQPm f+Mddf6oXt Du4Xs PNyuzqEUT/ lL4rT a0RmVd1YDY upsm2 allXFYVpFL tEKot 0fdVk/QT2T 5ZXa/ XbIXwrqHMh Ds2S5 ikJfayHofF umGsp B3BFWlSoZ4 5I2V3 zCiiyE3Pnb zKCZU Vf7Q11b3JY XdW0m 8ZYaPP6sYV Q26b7 pXSVstOmdF eGZGU gnHAfpNjLY f1TcH bVq3W/bE2b 3vCdV PsxFWg0So/ pYXHK tl+mArsCJq 3/z6E izKe1AM+qU 3+tlj SuO30bYlbN NF64E fGBwwaRK+P UShv4 nUToZKkBjg TXEen j4uNUs0xpN dVgUC Rr3g5lGiMF rApd3 Ke1WIqXNUD 5HbIJ 8L4SD86jei 3t/Wy WEmeXw09GO kjjYy 3b5QvqfSRJ Yl3lD Jkml1X2/5f /Z9FE HXkHwHQD3s mVhbQ plbmRvYmoK MjEgM CBvYmoKPDw vTmFt IV3FDA2xQ6 N1YnR 5cGUvVHlwZ TEvVH oaUH0Qj753 L0Jhc 5GGy348F6o lbHZl cQmvBV4VMe xpcXV gF6LiS11tp W5nL1 rmbsWmn0vI bmNvZ GluZz4+CmV uZG9i agoxOSAwIG 9iago 9NM1ZKX6rP 0hlQm 8sR7MwzZlo ZS9Ue VOlWD8XfNL lL0Zv bnQvQmFzZU ZvbnQ kHYPzpbU5h WNhLU MgoARwIW4y b2Rpb jyxV5rkYH4 zaUVu A27beP2aWm 4KZW5 nf8NrThQpM DAgb2 SfAot0B51f bWUvS NVizi9MkFY 0eXBl L9B5hWVzM5 R5cGU jTl7jrR9SS XNlRm 4zsS8FASa0 ZXRpY 2AbQE7vr0W pbmcv K3oqTJ4pgZ VuY29 ygG5rLk0QG W5kb2 GqWoS2XIOd b2JqC fu1P9DkuV4 yU3Bh P7JwIGL1iI NlR3J rcZ4VfSL3h XBlL0 nrPJpmX3nu aWdod ZLxOC0ZvZb 0ZXIv RmxhdGVEZW NvZGU yNHykXW8NU 2JqZW O4A1jxQILn IDE4M w8SfPBzDMI yQ29t gF4nQD13AR gvTGV zT3WhHHF6G j5zdH SmRL0ElWie wTEBA AAAwqD+qWc MH6AA AEVZTB9I+2 OKjwp lbmRzdHJlY W0KZW 5pw5VfEkL0 IDAgb 5RiNlz8J4Y vbG9y N8DyH0WhH8 lDQ0J ke3GoGFU6G DAgUl 1mA6DzeEqf ZS9Jb PZeFT1ZHYj naHQg MjkvRmlsdG VyL0Z sYXRlRGVjb 2RlL1 X4kZLxCC0v amVjd B4LXOQcGNF QYXJt zeg5W8QhhR VtbnM kDRofN3Aud G9ycy ClX5JjKZZd Y3Rvc xEhEA0WdIM zUGVy V06nfR0tNG 50IDg +Yl2FeFG6g CAxOD EzR93kd6wn MjQgM BVFV9iamob 0aCA0 PVU9B3bepC VycG9 sYXRlIHRyd WUvQm j5s8YhfkOx bXBvb dJynZI4Ar2 zdHJl CW0CyIpwbr lUVEf Wx2/iJHMm0 bhGWR qatWVzwSWO E+PES AXFjqkx6Eo aYjQR jQIaAiKgQN N00/v CqoCANoLsi 4ACsh nDJgFlURFQ UUFAQ WBPDHo8lyF phkbR T06Ur56H2+ t671X d+tW9/3vrC T1vzN AYH3l9e8gv F7s5N LVYxeTElfK Hr65/ 12/XxaRXhC ZXxGd H4Dx1uCr/y wHa6w L0TYM/NQv7 7Ad8L mSR4qn6RPu ZV0/P i15TzMfDKW x9DLe VkCeBeg8Ni Q9VNw nYcSz+1few W5hYY rjjJChRQIs DRNao if2rxV9+10 hQp4I mExTpJZWNY 96/hq bHqw+Gw6Sj MM15z heQXUnyP02 94EMH AMWO6lQWvI 7jEck ngVJYc8MsS np8fK aO1XM3jWg9 BjZqb Zrrvoj05zJ sqDNB tr4y3yYi7i GppTd rGl51/+qbW r/YI4 TmEGQ6UrPJ 0GSP6 hOa8VMXi6Y eAOZ5 WMT55rxUwg fADFe CIklceWR4g YtDLE bgkzT6MB9/ zUZE/ QrENbgj9NN Ht5Oc SNqvQV8kEj Vm8a2 4n6FLtb7HR IsKc4 rZ7GRpzXe/ Tf6aD 9F0uckAqHb igcAE JWpqboXUBm T/DCA rMKwK6j/3N wWIoW joOSX7hhX9 OehkB OYNc7/2xgC Y5QEq 9SbG2tqblh 3Nx8F AIAuRL/YJd zqnyr rXVpCOPN/Y ImLvm 5t19AIX+6Q O02zJ 7eFNTmRdx8 FY8df rl7iu0mufB OmIuP rlixGh+ucO 8wjNt UKYJQBl+uv v/bJd XoWLs3vWTx sImEa 50k0d169aQ JFIx4 nDKevo24AG DHM8Y qKN8fvWJWm tBQbu f3E+zGkJMJ Wy3T7 1JRE5/X+Fy L93Sk vy9b4SZAKc J3HMR 6hM1ZYZQYs METHc NnO1iWXtQj NzRmy 86V9RFAEej 92Csv +yfOymJoCK O+rnL mu6K0sQepw qjPaE gQYVJlrDFH sl4xO +0wF31PmAe rInUH KBqWTQpxtu C8otq ZYfESPzCJj hjqXo TZUd2rO80l k/kdP Blc1gHU7mb hhESm 02JS2iTDik gOhGW HUiLvOa/NZ 80v4E lFzxSwkUlH CN2D7 44g7AjOTW7 +5iSZ cTlFgwbhF3 YPI48 Citvm+8L9S Cnib1 19rGZtPDUT CLDeP aSWU8S2t1C eyT2r K9o+0/dlFg wIaPb GDCYTBgfrU 33D+u nNrSB642Ao fCNNG HVnoA17KO6 GyxGX r2bwEf6MpQ RNZaR 8IE5w+Xsa9 VPhBd 3Gs4cvRQ7A Zs4jm 2dCQ1OOK1m MUcr4 i8+KzrvwnO gyYdr 3cs9GgR9aN gEphQ /JN2hYd6Bg 4+W6C 1Vrj+UNKqA wno/O AblLBCQ7Il cvNOM 2T1Zrkl7qC QZGD3 v82ROS67Fx ekQE5 UVB37JCnU4 iCs9p H8OiCamEwX gV4py uYsj1Pg4zR Dtiuo c+BjmkTjlt anLn6 MPd9HbSPCx V0bbt rVD7b7wYNN Z5jpl aID2gzMPYW EV1jA 2QawNRMih2 8BBRc gOsdklImvp OZdB3 C5aMU9jsqx /KXyZ A2R2HRJL99 ezPEg kAlo9EdaBO Eu8Yu +OmaIzNsWD KqM8c v4WabBBf7p yl62J 2TgxZiMEpj uBDMH eshw8L1WQ+ Xegtl bA+SQIY662 aDCAB LHyTdvhECj wS6tq sZ09gXZE9X 8EHWx FuN2uch2YU rQ8Pw uVRe154w/h OPqgC 2yl623FOKD Vf5Y5 mtxWMHYvAt /CIDJ zmg+8MIdYk x60O+ x1GceOS6Pp D3Ml0 KqSsLUPW8J V1Lcr A0YBTuly26 QDKJT V21S6pCUC5 nNZBd mcOGglspoi XJ3jx hoBGeuDDNU nY0hU hGhBGaCCkr /3Kof 2Mn4oRI/Az SYoOB 6+0G/DgA1C mjxlF s1Kn8iDWGL MOZw5 UekoempGBE b/uUR NUK7k7NB4a QlyTC LWI89dMf2+ FyRPP Z488jidPKZ uE4+l +Wlal+UiCr +Jpuo 59GqFXTZuI IgwyV /heyQ5hYNu bSCW8 hHqFZLg2Mk ccujx 69bZaWXKJ4 tjZsF KWdY38AA2u Z1neT Ef+mcvs5Yc IwkV+ u8DHU2SUW5 UNPkV P+8rgmZ0Dz y7j/5 UkcFRCqSb8 S1ftI CYTuuDczk7 XZNFl 9DhBqSJ0pW +vbk6 eQ/j7fLBmg LbMEr QUSNVVxxf+ ivlXf uCKrJj6NHQ pMras azSLw27J3d C+VEZ LtDCnbj+oJ /7hT2 RTp16LvhbT xECst rxDJcApFxi /hg4A M1KIe7F7L6 vHD76 v02yBVQpeW d/margarita fQuJ4Vy0nq rrRo+ IHt/EMsrrb An7dN HAkyU6/aLL pn7pg 48j8HI9bZk gJYgG 4+h9SXq/Ce 4o3pM 5JP8OJi9pX R1SW8 7dcvoVIkJk llVJ3 ayGTZh6L/t zciGC chlcxGOFni +XE5F xY4MUFPY9V oT2Xf hQUV0BfVtS qu83g ipTApGrt+4 DgYZM tHJ/tIzaJt bFYND 0kJ1MZUCOU dJsPS 3RJY50VDWs sIOHU 45v6HAKlil 9kXhe Uhk5OCYA6c +tbZN tpFgHjVvoM 6IpP9 mf2kfBhST0 ihHZ4 ZgkFyILuWI vwhFe dgjXwSj4AA +znWf 8Sb54pqhJP o+a20 GdIgPBw91d NFJ0U RAq+epnXZ2 OvulA LjLLw8Qsf/ 4LMwm pup7yVvR9H G9oan 9BIX4Vcitq CnFSg DoxyQnAEcB BdDrC g2ayeu0UjH C2mk5 J3GgDU1raD mw+Eg mGXOyl/tqI qKz2w 9qTxLUTZMm JyOe7 z+V7GQ6d0P 8xciL F1EGTix35r Vg2IV JFMA2u4hb0 8P4RG E/GpkYnOA5 81PJ9 wTjWI1+Cpm mG238 gx689LdcLf thkGt QK9s4clihN lN812 hOOpAlamgx htt63 gdiNvxAitr Krq2O UeKfO4Dx8S m+3/m CMnMOcYeyN Fa42x 96OrB5QoW9 ow9fF RjiXdWdUdv YMzwd EE7TIFKyzO mhTki 9XvDAiOaNF RGejy IsQmQWldfJ 3+tqt uxOXC+D9w9 9Ynam pa+wYwO82o blq+7 w7iEeQDwFH YLbnJ CO+vHURZQp e+qq0 sqp7L+VFbE ReRIv jG17UM+qja 5NtBK b5AmA03hby u3qF5 f3VQNmX5ry I5I8W EROrKLyqtD ieYfJ Gr4tVESeNI XVKbe OjwXJVpEXm jAKRh 4+fpA1jlN4 5RJLl nXKCqBapSO 181jF i4+Scciznk Yqczx wkUBxFiBDo EsWuI Yj0l+0dvbO xFtHh hVlk67jK5m DcpLj KN9TG4T4VW Hd3tw 5jup7no88q 2CMSk HFRw1VWN6G Urmrj 4zu1MEfXQv UMkfR U07tZhH3BN cuPSF yHO8f18/C2 OyS+J ADmQ72Q93H rLMPx atbmOh6/OG JjI3N WvX5DrSrpS Ar3uK CKZT3z6TZr lADd1 NLxHJH+PPF a5QOc 7APoFR6xUm +Lb9b amacgkC2rg OFVrc XecKsghF8E 9dPo5 +iO7zLd22D v9OK6 PWTUfTI5br QtbzO oAEjX5Nf5V ZJVCj DZuTwT8iGQ icaIa EmhBxRoSME sNguU 9UaOsFiMSO mwSe/ 5P6TfFg6iv ErBjo MhKRYqr5NO z3Qrj fATyj4C3DG 55nsJ QYbskPFnlZ QtmPo GefWG3gRUK eGDJZ 3U2uohSa3y R+zll 7kp86uYpz2 kVRpe llT8SScgHe 1zReP x6tSkC8jED 0ILHE 6LqK0+hYQC orul9 cuD12kpa9E xA1Gi 3sokma6iRI uf9cs 0VcnU2CTM2 TsyHw gY8aYCLmTK 4t7Pf ozADoYgZfX 8bTFX BMHooEg6A8 0WT8a VshqZiOjxv 7GIlt 6kP2tN5EBQ xN1sN 3j2Kg6XEAg N6dfy 33iCngcoUG vqJem 88Mct/LGfD n+Hk6 TsPXO+CJSd 8WrR4 r1DNhLhpF9 txOnM PG9QIp/7XW ZhprU Qm4C0rvrOR bK0iW nWsuemc8Hx /p0sd RN/LFNUXaU jstoy Bpeo2anAx2 l00Gb w4pxXKbX/h sRPX+ 6Xcyj6Jctv 1N94q MV3PCbcKf2 2zIDx hx8/aRftQe TguiF EawVmXn6Yx KAstC BfelgwQ3Kv HEGYJ KnwiejhRGZ tg+TX kN/hvNE8AC LvYyQ PlDS505JnL MfU4g rCpSwAJCHF /Zmw1 IrVwV5zTuC +xik9 Pah/LXZ3dc I7h2r qMBAbrBOAy IAZlC uyK5Dhl4mE ypHIt GJdKK+sK6t q8I8r UemsqUO9xF QyvFm LSno55PO6l Su88G w0l0O8qyua SMM3K lO+w5gpihX 032k1 o4VE5XA9+W RcCV6 8sSIyOU6jZ Lntgn emkDZYMKgM 8SsvH TDf0SrjB0H 38W5t Jsj8lJetRx owx3E IeWqjf52za XApuv +73MLrDyzZ KRM/9 7S6RrqG6sb kqplT CtA25NUpMD BMwR/ ayQe9LhMWd rmCdx W0E1pvFkbM fvRH1 4CU3tzAfpb 4gjZN q6AoOTSW/Y v93AF ZEgia4HUfi uhsEF fqvXxYj94r 44n3g LRvSjjYW1x zkuKz b/O6jn7FOZ Yn/HG YEq05uc/OY xcVjI 3BFRWl0GOW 7xXiS OKfWYFI5gy tbSzz LV0gDI2KhD 52HnT oeDKwLKBrr /e3ZK H0ZCxVQPjb ThWQ3 IT00XrgIKg H71TR g38HA/6/dg bBVHf 4hFVTL/Oze +/oXJ jugserzcML TJEOk 8kvd42Q/Li 7CwVQ d4w+kQVTXG EBvW6 AZPGOuIJzE y0uaK Xjb3HBm6OS p8BEJ /joqPH+8M5 OvPZC iu4AUCbDaW 3ITe7 i4qNCvhVk2 xCY4A Vi2v3SJacS 30CTh t+imefx6GI 2NE17 XSD8/SigJG eXc7o IExrqKR9ca zlI+m VJ3m7piG6B JbOvz S+5sX5VXx3 DJTcp GptbdlHOTT f2QQy BCnXcIo+lP 0aciB 26l/Hs3z+F gKY7a tZCbhx5sU4 mbWlV /UwPpZa8Dn zxsvO 6QY8p6xB7+ WfX/l pdp2NklR1M TiiVe O/SXUJYyAZ lN1jA G1uu8j0Itt +xTNz lnFR65nG67 O8d0y wZvdGddaro O7uUX 6hZfQ1+Taqueria sP5RU 1/z0VH7Ols KPCUu 45A4yhS90b 3xhNg UIQlNA1gnU joBVT Fjpj7/M1aI iV+8R 9Xjyr8xmPX 5vLz0 lNU+WvOuw5 qcRTf xAl4r/e8AC PlpUl SVPKrE7o8H 6s23U 3z/1xB8P/O 0IKLq orgxgnJZeQ +rqal 0gKwgKA6mK 31zel /fWxi9SJ7/ bY+yO 2/lkdZB3PC 1uR7Y LAKmxrPt7K XzTB/ BWyCg67Vx6 CEpUn NHnrC0mhRg rf/oW vdeO1SGp/A jm04H ZdyyB5Jp+q ccai9 tfEMqf8J/W WkVxz sY5RmXbfI1 H31SY huH4DYAHid gwiQL XDXsG0xvM/ 7eIvC 3L9jI960oq Oitrm t+zyq8SdwZ G3Qpl bmRzdHJlYW 0KZW5 vb1ZdZsTcW DAgb2 GpYqf7K4tc b3VwP EyqMe4KwvG uc3Bh hpKyN0ktVW B0cnV mZ3ogWfWre 2UvQ1 MgMTMgMCBS Pj4vQ 29udGVudHN bNCAw IFIgMjYgMC BSIDU lVNVIMV1Ha XBlL1 RxX7XrYcLx b3VyY 7BgCLovW93 sb3JT dVZvXRf9A8 RlZmF 8sZOFI2MuB TMgMC CLHv6yQGZp Y1Nld FJwJ1PIBoN vVGV4 mHKmWM1lC1 VCIC9 JbWFnZUMgL 0ltYW zlAB2vKj9p dDw8L 4wyYb5zNIw gMCBS T7pzzXByDn AgMCB HZ8ntV3XxG jEgMC GWN4qbYJEi IDAgU j4+X5gJHyt lY3Q8 HU23LyV1GS g2MiA yNyAwIFIva W0zND S4UmBbUtIz MCBSP j4+Wu6CDCS lbnQg MTEgMCBSL0 1lZGl bXs54FbPjY CA2MT IgNzkyXT4+ CmVuZ L5nmnopFuR wIG9i cwj0VM9Skc 91cDw 2F4VjICOpe nNwYX ZjyrP2M6KT Wy9JQ 0NCYXNlZCA xNCAw GWFqEm1qB4 VidHl xGI8Ms0DgE 0ZpbH Vdic0WoGT1 ZURlY 00aKY0JGDA yaXhb MSAwIDAgMS AwIDB uT9R0hQTaD E9iam UcaG1Ch4Kg VHlwZ XRnH9Seo62 1cmNl ccq0G8Qxq3 NTZXR jZ2RWBt1QQ Xh0L0 ffHWzsAz8H bWFnZ UUtUC6lG8E JXS9Y V7ByDPX8ND wvaW0 lCGR9BbGxA jUgMC BSPj4+Pi9M ZW5nd GggMjAvQkJ veFsw IDAgMTgyID I5XT4 +w3FyPBAhR nic08 /MNTYxtDAz UHDJB wAUPAMPCmV uZHN0 cmVhbQplbm RvYmo KMjYgMCBvY moKPD wvRmlsdGVy L0ZsY AMoWTAou4B lL0xl mib6xFZvUx Q4Pj5 hkUWjSR2Qm JzdWW 1v2zYQ/t5f QWDAY AOzzBdRIlv sQxJn k5o2QE9iP4 sUgyK porR2DGvnS Pn1O8 oWJduRGskt hi1GY jNQ2A0p4rP 3ZBC6 T3YPlYORFk KlxZF LHYvbUgqB/ Kifzp hNhEPRIEHv XunHs 4cJYthBLrc tShgm RI3TcyFVJY x+lzP Cp4ElRLQ6k y9GDq OetBizMSZo En3qj MY/ve5+RpM /XiF0 Mxv3u9QSd+ XfRQ/ cmbZ6NqQzt 2yLgb oqHeFXRPCe DtciI lv/xPeTdZx 2UY+6 MvVxZMx6JP WC2ba x5Qo8uoDQy Kvhep 3GXpRzuUhW iyD1w ub4hrQMQex NeYz2 p2MK5Fv9Yh m8/CV EpQB2Ct3ZZ zeVqj njx1L/rQsE OiryQ cAYA1V6yKl dFxs2 aRKrUAWzuS HbRTb rrB0gokvUX DIzH4 NhcHVa9+ax 5qsTY nFSDtQ+FX0 iuai2 HCFPh2Brft sEi4H xnHEx4eZNX O3j48 hxoo37G5qH hOflh /uVFZ3xg3P pR6l/ k6JZ6NWT31 R4dVm XZBydOY/Sx Qy9RH ROmJuVaR1Z tH+zX s0a9HZJvu9 UAVzL X+Eq9rckLQ xkfq7 iytehb5xbw fsE9y mmuDqSoCYd qWQwv Dm7OBn/fl5 NhVP6 j8hpJbwgEz SlgrF amOjI/T9W9 2u1Ms PhoJogVHUw 4zEAH IdiJjmrrbf HKLjW 1NjxKAX0hk mngZe q/pFDPOR0P YQco9 zuD4hobtcj rxnPB +yXDB8NAUJ 5TnXD PEolqh4Svl HR04o s31VNv3nt/ jpSRW wcB7FcVlCl NP4ST OGBoOgQFl4 alESC +DfLKKP8bo LtJM7 vPswD3+SVQ u9ima HXW5e2OW/V Mh9sy 2B0N2FuCE0 F06Ky gpPyQehlWe Ohixz csUxoftktH snarL A0prYrnCNp VZBKF IAyGsk7aEK tLNrW CUvlBwttRl NmFqH lFvqHWu7w5 C6UFx apelhr/ZEX ezNVd pBREtk3vZ7 Pe+bq tiNsftvNhz Zzewy i1ZnGAy3at kukdL fW2AY/1fwr JKBHF wW0kIWQByn LXd1t RXMBSrhluw LDbA8 0EWeTYoOVP /eWM2 Oyx6ZCYasO II8He Tt5jXEDeZL mYRd4 m2EEvIJ8Wk 0qJYo QJrj7eP+oJ VGYjz KcJr408p+I 5rD0A /oTxRACjvk d/w5f PG6TyOvkdx eERbI CIKr0lJ32i Bdi5M zdAoJrqIVM Cilcg zksT+bQMpk cdiVO bhPLAUGoRj hb3Ay TPXo7E8VY6 hmwLz Hf0u3tzlBT eYdLS zT9xlrY/f+ sgY0H ty3GjhZEYD sfajb 3NWMzn9ETH OZSkB e/DnIGfk0t plrif lNzbOzq+Ms +2tXc garAIHq9F2 RIuVu JYmfNvbcVd ufVeQ 5aycDPctIq L6Z7m bKChNuUtk4 RAFHa 5uYjyc1465 9Ie2/ NA/xx2fog4 XbhHe ESflV4vWCU UrRc+ EC+vLawMBE 69Fuu yO8vJdmDXn HG2i7 zAYPipau6Z 6hbDr VbaKaghOlZ KKLBV 2Nv4GQuXA1 EsJk5 ZWOa859QB0 av90w BpvlFNMuvk v2mJv XusvYkVOkt tfEzI r+aFnFHBmq 46R6u r8U0trBczr zci/m xfWx51vrDV Yhsag I/TO68p+J0 qehuG xjgGZkXWOC Q9elw 6LV9BEcYQO yuIan zTT6ltKlj4 iprP/ /68BTEShPh 7YjUu /TaQ8XgbT9 ctayi VXT5tTfZCc 8KYs3 CoX9BypXCq N1ZE1 lDf4Fy7M1n TnQLb 58CyQE3zXV ctjiV GyECbKQ29P O3ACc EC8dxZMB0W RS+u7 hpQpvjltln sdX8l PklWQXxQaj VsPe9 fTonhh3t03 UtPA9 fs50nmXQz3 pzrZf Lk+Rq5U/JZ DbDGo Ricn0lvFtd WxcYK Xtp6CcmhFA MiWia A07s8PRrCR I32ts duyzTwMYnV LDPC1 hTF+/AiR5T eCFbr BNbgnWjmBF twS0J Vy1MwiQ7RM vXNi9 fxF0zk620Q 9Yl81 fG4sDUiJNm WpUOE i/ouD8ZmaR Hw6by X52Vzu5sKF J7EgT ZsJw0glgzP 17YZF RiiK8gcja3 oxObf ns3MQv/PZn F0y1O CrZniuo51R rFdSG NSHxxVHdNd 3dUkk fNQ+ekyiWF jEULe 0yOHDsU1QI rc5Ov U59WsDVndK bFmMP 3p4BPYRIee uwmiG WIJBqq6vR9 PyxIb XgplbmRzdH JlYW0 NQL9cp5XrY jEwID Hhw2MbVud0 Pj4KZ U2cv0OmRlw gMCBv YmoKPDwvRG VzdHM gMjggMCBSP j4KZW 3ra7PpTvM4 IDAgb 2BiAph0B4Z bMTcg CRDVJ8dKFk AzNiA 2MTAgbnVsb F0+Pg plbmRvYmoK MzAgM CBvYmoKPDw vRFsx NyAwIFIvWF laIDM 2IDYxMCBud WxsXT 4+QpPhKB6l agozM WMwEC8ykdy 8PC9E YaW2PLUnKt 9YWVo gMzYgNjEwI G51bG ytSe3AOC3u b2JqC tQvDADzw9S qCjw8 T4CdWNigHK BSL1h DRbRgYqZ6C TAgbn VsbF0+Pgpl bmRvY moKMzMgMCB vYmoK PDwvRFsxNy AwIFI iVKafRWQ5A DUyNC BudWxsXT4+ CmVuZ H9xtkmmMCS wIG9i gua4KA0TSp E3IDA eCy7OKSnhW zYgMT t4QY71dPyf Pj4KZ C9uc5OiDeC 1IDAg o4CeFmd9G2 RbMTc mTMCHE8nCW iAzNi AzMjkgbnVs bF0+P gplbmRvYmo KMzYg MCBvYmoKPD wvRFs xNyAwIFIvW FlaID P2XLU2XWVg dWxsX T4+CmVuZG9 iagoz UlRuSD3wgk o8PC9 KJpB6JVFuJ i9YWV ogMzYgMzQ2 IG51b KwdMh0ELA4 kb2Jq MjQ4IOBoy1 JqCjw 4F4McQPzsE CBSL1 hZWiAzNiAz NTggb nVsbF0+Pgp lbmRv YmoKMzkgMC BvYmo KPDwvRFsxN yAwIF IvWFlaIDM2 IDYwN yBudWxsXT4 +CmVu NX3hzqt6HN AwIG9 nsll5TY8JT zIzID ZjSj0KNXen MzYgN qd9JP95wYt dPj4K VK1rf1LuGb QxIDA wx4CgUxr7V 0RbMT ahBLGZT4nT WiAzN iAzNTggbnV sbF0+ PgplbmRvYm oKNDI gMCBvYmoKP DwvRF syMyAwIFIv WFlaI VS2SJIvITR udWxs XT4+CmVuZG 9iago 4SdSgVK9du go8PC 3WVbO3JDVa Ui9YW VogMzYgNTc 5IG51 iLtvNj0BTY 5kb2J dKaQ2VYTax 2JqCj i4M8RvEfTg MCBSL 1hZWiAzNiA 1MTQg bnVsbF0+Pg plbmR vYmoKNDUgM CBvYm oKPDwvRFsx NyAwI FIvWFlaIDQ zIDI5 MSBudWxsXT 4+CmV zAE9incf9J iAwIG 8wcfk3OP8B WzE3I QItAg1AFUa gMzYg AuB2QC81wC xdPj4 OIJ9qb2AbD jQ3ID Aqk3SvPcr2 L0RbM QiuVQAFZ3v ZWiAz VqG8JGSqch VsbF0 +PgplbmRvY moKND ggMCBvYmoK PDwvR FsxNyAwIFI vWFla QVBgZDU0KS BudWx sXT4+CmVuZ G9iag j9UYHyGL1y ago8P A9JAdK1ERB gUi9Y WVogMzYgMz U4IG5 1oVigCr6XA W5kb2 JqCjUwIDAg b2JqC rn2Q1HtYEi gMCBS J6dYQuWcFa AzMjk gbnVsbF0+P gplbm RvYmoKNTEg MCBvY moKPDwvRFs xNyAw IFIvWFlaID M2IDM 1OCBudWxsX T4+Cm GhTZ0qawf5 MiAwI F4wcfs6BR4 EWzE3 VLOaPb3UMY ogMzY xOpE9AI01s GxdPj 5XGX1ug5Co CjUzI ICrz5YzHsq 8L0Rb MTcgMCBSL1 hZWiA oBjX6VHCdf nVsbF 0+PgplbmRv YmoKN TQgMCBvYmo KPDwv RFsxNyAwIF IvWFl pZBG7JWN3L CBudW xsXT4+CmVu ZG9ia fb3HMOiDD0 iago8 RD4XXvV6SF AgUi9 YWVogMzYgN TEwIG 76hSiwTe2J ZW5kb 3BvHkK2XTY gb2Jq Bkb0E3GeOU cgMCB RE2yNSgKmU iA2MT AgbnVsbF0+ Pgplb mRvYmoKNTc gMCBv YmoKPDwvRF syMyA wIFIvWFlaI DM2ID UzNSBudWxs XT4+C mBpLA8pyzh 1OCAw DI7vbgz1XP 9EWzE 0QXWpQg4CY VogMz JqLlBvUP82 bGxdP i7MMZ3sx6M qCjU5 LDAfv3NjUa w8L0R bMTcgMCBSL 1hZWi M3QoE5TsVq bnVsb F0+PgplbmR vYmoK NjAgMCBvYm oKPDw vRFsxNyAwI FIvWF ekKRW4GXL1 NiBud WxsXT4+CmV uZG9i jaa9ZWGzKE 9iago 1RY4EIpL1C DAgUi 9YWVogMzYg Mzg1I G58hWsbCd5 KZW5k r2VbWaTwAY Agb2J oYnu0H9WeV TcgMC ZUR4pHRsHh NiAzN TggbnVsbF0 +Pgpl bmRvYmoKNj MgMCB vYmoKPDwvR FsyMy AwIFIvWFla IDM2I DUxNCBudWx sXT4+ HoJeJU6dcy o2NCA yWZ2zvss4S C9EWz E3ECXjJi7D WVogM gXpBIU1HU3 1bGxd Az7BVX0tr2 JqCjY 1HTPzo7OwS jw8L0 RbMjMgMCBS L1hZW fCtCkO2JtJ gbnVs bF0+Pgplbm RvYmo KNjYgMCBvY moKPD wvRFsxNyAw IFIvW TnmGPV6ABL yNCBu dWxsXT4+Cm VuZG9 sljn8BqUeI G9iag l4VU5UPsK7 IDAgU e5KGVccBrO gNTUy DV51kUupSl 4KZW5 ok8GzUeR5U DAgb2 WjFcs5C9Xn MjMgM GXEO0xARnM zNiA1 MjUgbnVsbF 0+Pgp lbmRvYmoKN jkgMC BvYmoKPDwv RFsyM yAwIFIvWFl aIDM2 IDUzNSBudW xsXT4 +WnFsBI2ke go3MC HkDN4rtxr2 PC9EW iR4TNDhEn7 YWVog MzYgNjEwIG 51bGx jYt3PSS3qz 2JqCj srLMEfj7Il Cjw8L 0RbMTcgMCB SL1hZ YqEtSsY3IZ ggbnV sbF0+Pgplb mRvYm oKNzIgMCBv YmoKP DwvRFsxNyA wIFIv SXqbDSE3BM YxMCB udWxsXT4+C mVuZG 5mprw6HzQi IG9ia jn1SJ8TOrR 3IDAg Cs9SXUcwVn YgMzU 0ZM77nAaeU j4KZW 0jn8YcVod0 IDAgb 5IvIki1N0D bMTcg RBEHX8tMAd AzNiA zNTggbnVsb F0+Pg plbmRvYmoK NzUgM CBvYmoKPDw vRFsx NyAwIFIvWF laIDM 2IDUxMCBud WxsXT 4+CrFaHH5g ago3N tOsBJ3wcph 8PC9E WzIzIDAgUi 9YWVo gMzYgNjgwI G51bG yqAz2TDT2l b2JqC du9DRBvm8K qCjw8 E7IaEBdeYB BSL1h VPbX1FdG2T DEgbn VsbF0+Pgpl bmRvY moKNzggMCB vYmoK PDwvRFsyMy AwIFI oSWalVPI6V DUzNS BudWxsXT4+ CmVuZ G5rpow0UIL wIG9i uby5WA7PGl IzIDA iWz2QKOgsL zYgNT C2MK65dBks Pj4KZ Y0kf0XaAkf wIDAg j8JvOjc5A7 RbMTc cBBIEF4mHX iAzNi G8AMSggbVg bF0+P gplbmRvYmo KODEg MCBvYmoKPD wvRFs xNyAwIFIvW FlaID H7ABVdDEBu dWxsX T4+CmVuZG9 iago4 IvUzFI1elx o8PC9 TFoM2EBKzF i9YWV ogMzYgNTEw IG51b CxaSb0JDG7 kb2Jq CjgzIDAgb2 JqCjw 5V4JsCIahW CBSL1 hZWiAzNiA2 MTAgb nVsbF0+Pgp lbmRv YmoKODQgMC BvYmo KPDwvRFsxN yAwIF IvWFlaIDM2 IDIyN CBudWxsXT4 +CmVu HD9vjjv8WS AwIG9 sxpq7OQ3PJ zE3ID VqHg2EOWka MzYgN GBwSJ11aWx dPj4K GQ7ee6CmXl g2IDA zy4AvSqg3T 0RbMT czKISHC9bK WiAzN iAzNDYgbnV sbF0+ PgplbmRvYm oKODc gMCBvYmoKP DwvRF sxNyAwIFIv WFlaI MG6JFL0YBU udWxs XT4+CmVuZG 9iago aWRRtSR9cx go8PC 3NEK6jl0ko XzMwZ OH2NUV4FMG iY2Qt ZIZkDc7sYs Q3LWV vIbOqMpH4X zNjZC kgMjkgMCBS KF81N hVyTLU8Vg6 xMTdm LTRlYWUtYT FhMS0 bPue4MIjoI zZmZj EpIDMwIDAg UihfN tS8RFI2QzI tMzFj RX84MIRhAU hlMGM xBKR4H3YcC mE5MT N0MBZhVWXy IFIoX yB7FBp1BYX lLTZh OTYtNDVhOC 05YzB iZYltKpN5O jM5ZT UyMikgMzIg MCBSK P98AQBxNEO 1Yi1k NDViLTRiOG EtOTQ fXY8mUIH7Y zVmND dkZjEpIDMz IDAgU wtoQwH9FUE wYzIt NGXdXe66Ec A4LWI 4OTAtNWJmZ GQxYj liYTEzKSAz NCAwI FIoXzcxOGQ xZjQy WTH0E7XfDR FjNy1 rYTG6QJB1K GM0MD A2IRKvJlah MzUgM AXHFV37CUP jMmNj Ho49MUJsXW RiMDk iXfD8SZ8gB TUyNG C0F4Z3EgFp IDM2I DAgUihfMWN lNDkw YzgtMjZkNy 00MjV kKNe7CGQmI WFlZW J4IVv7NEEl KSAzN yAwIFIoXzF kYTI2 YmUzLTBmMz ktNDk 0Zj04DZE1G TQ2OD wmEiu3GUXz NSkgM zggMCBSKF8 xNTk1 O0NvWm7kLx RkLTQ 3NDEtYWRhY S0yNz KtLpz4G8H8 Y2YpI UB6CIHtArd fNjU5 V5T0PiPzHA MzMS0 0NDYyLTlmM WUtMT ZlMTdmYjYw ODI3K QF8CKNhTKP oXzc3 YWEzNDMwLW UyZDI cXMXcCh9sS 2Y4LT djZThkYmUz MWRhM ykgNDEgMCB SKF8z MjdCNjkxRS 1BNTU 4LTQyRDctQ jlFNS 6JDYMaXvX4 NDA2M DIpIDQyIDA gUihf RLc7TUU2QS ItNjk qAT06TtBxD ThjZD EtYTVmYWMx OWZhN 0QcUWL5TiU wIFIo SiY1VTMgIX gzLTJ kMjMtNDczM i1hOT w5QJHiVCF3 ODMwY yG3CEviQOY gMCBS JM3oFRHuRV gwYi0 4YWFkLTRkO WUtYj W4WF60AcAb OTJiN lP4YPCwLFH 1IDAg UihfZGNmYz MyNjI aIvXuYC28M 2YyLW O8TDQgPlG6 N2ZmO TEyYzgyKSA 0NiAw IFIoXzVjYz kwNWV nSLQ8ObodH GI2MC 12IBZjHLM6 NjNlN GNmMTAwNik gNDcg BCHTQK1bBn FhMDF fRV7pWPD7X TQwM2 CkGqC1Jl5v NWM0M TcxYzAyMGI pIDQ4 IDAgUihfZm FhZTk wMWQtMzQxN y00ND MxLTgyODQt MjM2M zZmOWJkYmY 5KSA0 OSAwIFIoX2 NkYTU 5R6TcXST6G TAtNG HgPT22YMV1 LTkzM AS4YEP6ZCJ jNykg NTAgMCBSKF 9kNzI 4WFksRj74O TM2LT QzYjctOWUx My0yO Ps0OLJkMaE zZGUp IDUxIDAgUi hfOWI 1COMbH0StE Tg3Zi 97UXL6GGLg ODgtN ln2EDQ2Fdq lMmUz LOI0UoIlVK IoXzk cRQD3HtOfF TgzMj VzBWWqNa5x NWYwL WYyMmUwMzZ hY2Q4 MSkgNTMgMC BSKF8 9UoG2SCX9O C03MW B5CTVwIEYb YjdkN L82BESvCzV zZmYx CaHqUCD4OH AgUih qEhdhFDQ7W DgtND rnSE77B2A0 LTlmM GMtYzgxZDQ 0MjY1 GHk8WBH9CQ AwIFI oXzQzMWYyM jA5LW B6XkiaTTpm My04N DFmLTIzYzA 2ZGY3 MzljOSkgNT YgMCB SOH1HZgDsH TQxMy 01ODgzLTRD MDMtO BU2CN2SRLa 1MkM3 RTAxMjQpID U3IDA gUihfMGFjO DI0NW WnWMQ4XM03 ZjVkL WJlYmEtYWN jNmQy DKG4GoKuQF A1OCA tKLPbU1PlP 2U0Ym E8XJOyX6Vo NDI3Z P29OSFfLZn lMmM3 ZXqpAGR6Kq kgNTk gVVQTEG2yA zFiMG J9JB8rMxZm LTQ4Y zgtYmViNy0 xZmM5 XvLkFJF5Pa YpIDY wIDAgUihfN mNhYm EwMDEtMjUz Yi00M WMyLWFlOWI tOGEw OZO7MMB1FM RiKSA 2MSAwIFIoX 2FhMT R6RqMaMYWf NDQtN UOjJL29ROV jLWQx VyFvTuO0IC k2ZCk gNjIgMCBSK F82Nj VwPVMiHc2k MzExL TQwZTYtODU zMS03 OGVlNDViNz FkMTg pIDYzIDAgU ihfYj GuQYJ2NPGs MDJkY g32WLGzZSM 0ZTgt I8BsPIEeXH dlMmN mLAG1JUGxW FIoXz f5UWZeJuC5 LTQ3Z GQtNDQwZi1 iZjEw ENEcSdF9Sp dhZTQ yMCkgNjUgM CBSKF 4pYBDlPrG6 Yy0yM mNmLTRmODM tODAx Ll9xMvUlSw Q2Njd tMSthSJR8A DAgUi rxYXC0YJB8 YTUtM AM4Bz74VoI 0LWJm ZjctNWMxYW NhODV rYkFaPKL8F yAwIF PyN1VqHklr MjdkL TliMTYtNGJ hNC05 MmIyLTVkZD E0NmJ mMzgyYSkgN jggMC DSIZ5iGxUw ODRlZ W0pFvOjEDI zNGEt WTH5Qt6zFX E1OWZ jMGVmYmYpI DY5ID AgUihfNWRj NDYwZ GNdGdJ3MA5 0YTE0 LTgwOWUtYj k4ZjM 9FXr3N0KdZ SA3MC AwIFIoTUtN Ry0gR JjkM2alzem lIFN1 kU9zokflBQ cxIDA gUihfNzhjN GE0Yj BvEpAbKD76 NTQ3L ThhZGYtOWU wYTI5 TDi3ZKS5XS A3MiA cJQYpG4W7Q zNhYT CjSND9L9Lv NDhlZ L99WhTvMCf 5YzA4 ZjNkNzQzYy kgNzM hFNWCWT06M Tk2ZW D8Kb47VDH9 LTQzN WMtOGUxMC0 xMjQ1 ERY2OCMcLF IpIDc 0IDAgUihfY TQ3Zj YxMDctODcw Ny00N LOzYHb8OXi tZDFh XRGrWeA9EM k5KSA 3NSAwIFIoX 2UzZm JhNzhhLWRl MzMtN ABgPh7vMdz hLWQw CAQ2LwC8KF JiNCk gNzYgMCBSK F81Nz L9BbPoAr54 ODk4L EV2DYFiAml 5My03 XONeP1H2Qj U2NTc bNPi8WZIwP ihfM2 FhOTFjNGQt YzllZ G15KqYeEXE 3NjUt NzIyNGZlOD A1ZGE pSZC5IXNzA FIoXz b2BXV4OTFh LTk5Q kItNDVDNS0 4MTk4 RAjBUqD2CT IwOTU xNSkgNzkgM CBSKF 61K8DlLBRs My1mM 6V7CDSjKTN tODM3 Yz5jRoJ8Kb U2MWU hK1OmADbiN DAgUi hfYzExZjk0 YmYtM henKb41PDB jLWFi AQZmN4W8AJ Q1ZjQ 2JOdqDCM8P SAwIF MlR2PhF2Qe OWMyL SH1HpWvUUH jYS04 YzdhLWRiMm M3YWV iMjgxMSkgO DIgMC ZGTS78BHU1 NzA3O M3bKpxvWCT 0ZmQt RXp4CB8pDT E3MWQ 8QkP0FSWuR DgzID AgUihfYjc0 MTk3Z TctYmUxNy0 0ZWYy LWFmZWItMG ZjZDM 0ZjRlNTFjK SA4NC InQJMnC5V5 MzZkY mIzLWNkOWI tNDhl RP22EFmeVS ZkOWY 5NTdiNmNkM SkgOD CzSFMUYS0m NjM2N VPpXL25SLO 4LTRm VvVdOYR8Ti 1kNTc yNWIyMzYzN TkpID v1PRZvUgpf ZTI0M AK3A4HwORX zNC00 OTdjLWIzZm QtYTI oHVSkG1ZoL jcxKS V3NcEiTKZb Pj4KZ Z3wf7MvBoB yIDAg d9XgErf4Z0 Rlc3Q gPNfYVc8xO GlzY2 hhcmdlIFN1 bW1hc jdaU2UleTe lPGZl KlOnISL5KS A2OTA wNzMwMDYzM DA2OD AwNjEwMDcy MDA2N zAwNjUwMDI wMDA1 MzAwNzUwMD ZkMDA 2ZDAwNjEwM DcyMD U0UU2zMGEz ZW50I DggMCBSPj4 KZW5k u0NpUlp5IG Agb2J nCsr0K36gJ ERhdG UoRDoyMDIw MDQyM jEwMzUxMy0 wNCcw ABdjP7QaTW F0aW9 hYQP2OVtRG jIwMj AwNDIyMTAz NTEzK b89RxRdXyl vUHJv ZHVjZXIoSW JleCB HTVXvV0MqH XRvci K9UttnYV2l NS84N IX2UQkJANN BXVAv LommgA1ueU ZpZWQ gdXNpbmcga VRleH VnPb7fOedu YnkgM VQzWFQpPj4 KZW5k x5IpEjthCD YKMCA 4OQowMDAwM DAwMD JzZKD4MSM6 IGYgC jAwMDAwMDA wMTUg MDAwMDAgbi AKMDA wMDAwMDEwM yAwMD AwMCBuIAow MDAwM BUrTQh4HDP wMDAw LP3hOaHqZA AwMDA zMTQgMDAwM DAgbi AKMDAwMDAw MDM5M CAwMDAwMCB uIAow MDAwMDAwNT I2IDA zOTJwBN0hZ jAwMD AwMTkzOTAg MDAwM DAgbiAKMDA wMDAw MDcwNCAwMD AwMCB uIAowMDAwM DAwNj QwIDAwMDAw IG4gC jAwMDAwMTk zNjkg MDAwMDAgbi AKMDA dFSByATS3D SAwMD AwMCBuIAow MDAwM CP1IQU9HVX wMDAw FZ5bAkEfIX AwMDA 3NTcgMDAwM DAgbi AKMDAwMDAw MDc5M iAwMDAwMCB uIAow MDAwMDAzND YxIDA jWKOgCF9zS jAwMD YrSKY3OOQw MDAwM DAgbiAKMDA wMDAw Kwm9TnIoVP AwMCB uIAowMDAwM DA4Nj UxIDAwMDAw IG4gC jAwMDAwMTI zMzIg MDAwMDAgbi AKMDA wMDAxMjQzN iAwMD AwMCBuIAow MDAwM FYtNfB3DUW wMDAw RF5yNfDsHV AwMDg zNjIgMDAwM DAgbi AKMDAwMDAx NzAyN iAwMDAwMCB uIAow MDAwMDEyNT M1IDA aOMObEN8bW jAwMD YgCEI7ENhc MDAwM DAgbiAKMDA wMDAx EoI3FoJlEQ AwMCB uIAowMDAwM DE3Mz YzIDAwMDAw IG4gC jAwMDAwMjI xOTYg MDAwMDAgbi AKMDA wMDAxOTQyM yAwMD AwMCBuIAow MDAwM FI1MZowRJD wMDAw WD7eIlOyOD AwMTk 1MTcgMDAwM DAgbi AKMDAwMDAx OTU2N CAwMDAwMCB uIAow HIZpMSM0Hb ExIDA gYIHzFA2lO jAwMD DmCXq0KXxa MDAwM DAgbiAKMDA wMDAx OTcwNSAwMD AwMCB uIAowMDAwM DE5Nz UyIDAwMDAw IG4gC jAwMDAwMTk 3OTkg MDAwMDAgbi AKMDA mIYLsVFp8K iAwMD AwMCBuIAow MDAwM TQ8VJqyZZS wMDAw RW5fVvHtJZ AwMTk 5NDAgMDAwM DAgbi AKMDAwMDAx OTk4N yAwMDAwMCB uIAow MDAwMDIwMD M0IDA qQTEiTN0fT jAwMD AwMjAwODEg MDAwM DAgbiAKMDA wMDAy MDEyOCAwMD AwMCB uIAowMDAwM DIwMT v9LQWlNMGo IG4gC jAwMDAwMjA yMjIg MDAwMDAgbi AKMDA eTHUtMON3B SAwMD AwMCBuIAow MDAwM YMnOlI7BCZ wMDAw BI1iJfOjHT AwMjA zNjMgMDAwM DAgbi AKMDAwMDAy MDQxM CAwMDAwMCB uIAow MDAwMDIwND U3IDA xXMWkXZ1jY jAwMD DjHcV7ELFq MDAwM DAgbiAKMDA wMDAy AEB5TQJlHD AwMCB uIAowMDAwM DIwNT s0NHTjEACe IG4gC jAwMDAwMjA 2NDUg MDAwMDAgbi AKMDA gHMOsRRK0J iAwMD AwMCBuIAow MDAwM SLnHbG5NAG wMDAw OR5hPkXyOT AwMjA 3ODYgMDAwM DAgbi AKMDAwMDAy MDgzM yAwMDAwMCB uIAow MDAwMDIwOD gwIDA vUEIyAJ9vJ jAwMD VoFtE0Rzem MDAwM DAgbiAKMDA wMDAy OWq2OWOzPZ AwMCB uIAowMDAwM DIxMD IxIDAwMDAw IG4gC jAwMDAwMjE wNjgg MDAwMDAgbi AKMDA wMDAyMTExN SAwMD AwMCBuIAow MDAwM DIxMTYyIDA wMDAw UB2xItFpVQ AwMjE yMDkgMDAwM DAgbi AKMDAwMDAy MTI1N iAwMDAwMCB uIAow MDAwMDIxMz AzIDA iHBKxBK6fZ jAwMD AwMjEzNTAg MDAwM DAgbiAKMDA wMDAy PER8YySgTS AwMCB uIAowMDAwM DIxND M8LYZhVWLx IG4gC jAwMDAwMjE 0OTEg MDAwMDAgbi AKMDA wMDAyMTUzO CAwMD AwMCBuIAow MDAwM BDgPFe3DFY wMDAw MB1hBtSqFG AwMjE 2MzIgMDAwM DAgbi AKMDAwMDAy MTY3O SAwMDAwMCB uIAow MDAwMDIxNz I2IDA jUFHaCF9vK jAwMD HgYwV5EzRa MDAwM DAgbiAKMDA wMDAy MTgyMCAwMD AwMCB uIAowMDAwM DIxOD Y6KYCmWAWt IG4gC jAwMDAwMjE 5MTQg MDAwMDAgbi AKMDA lGIMhZDq7U SAwMD AwMCBuIAow MDAwM RInHWG7JMB wMDAw JI2iUrXbRX AwMjI wNTUgMDAwM DAgbi AKMDAwMDAy MjEwM iAwMDAwMCB uIAow MDAwMDIyMT Q5IDA wDLYiFQ8aL jAwMD AwMjUwNjkg MDAwM DAgbiAKdHJ haWxl spr3YB2Cgf ZvIDg 0SSIaFp0GX CBbPD O8HNOzGZBk NzU3N ICuTwBkG7C 3MTA2 YjBkMzhjYj cyPjx kZmQwOWYyZ jZiNz YxYjQwOTA1 NTdjY 2VhNWYyMzM wND5d H3Xgl7FrRd AwIFI oV9v8AOK5G T4+Cn J7SZA4eEJo ZgoyN [id number] PRgo= ID Date Data Source [id number] 08/12/2019 12:12:00 PM EDT [facility] Name Value Range Interpretation Code Description Data Supporting Source(s) Document(s ) Physician No [id number] [facility] [id number] G9iag [place] [id number] 5cGUv Center Ty7nzD3TEA NlRm9 wxI1OMWj2E XRpY2 JaFI1ze9Pf bmcvV 4sgJU7xgQG uY29k rI4tUs9TLF 5kb2J qCjIgMCBvY moKPD wvRmlsdGVy L0ZsY SYrXWVey3Z lL0xl szv9dYRcTC 4+c3R yZWFtCnicK +QCAA XhCMbAGA4j c3RyZ WFtCmVuZG9 iagoz SRJet3PxGw w8L0Z qbELjdq0Mz GF0ZU HnQ70wXB9W ZW5nd GggNjk+PnN 0cmVh pMe6jBUY6S rk0o/ INFAwNFAIS eNyCu EyVDAAQkMF I1MLP XNTBQtDPQs jhZBc Bn7NgJASdR h+Rad uBpvWn4iKY yAXAL GvKj1MPL2z c3RyZ WFtCmVuZG9 iago0 OGDmp9QlLw w8L1B wB6GAz2XgI 1VzZU 5vbmUvTmFt ZXMgN SAwIFIvVHl wZS9D VYYiuE6gC4 91dGx pbmVzIDYgM CBSL1 PkK3CdEIys MCBSL 1ZpZXdlclB yZWZl eiUdC1VbSX ggMCB UJp6GUL7zc 2JqCj cgMCBvYmoK PDwvS 8bfc2e1YUM gUl0v FFfrEH0SYF dlcy9 Wk9JzbECrI 0lUWF JpFa5oThhy Pj4KZ X6fk7QlIgL gMCBv YmoKPDwvQ2 91bnQ zDK2RqXMhj CAxMC AwIFIvTGFz dCAxM CAwIFI+Pgp lbmRv YmoKMTEgMC BvYmo CGa4VW5RDF XNlZC AxMiAwIFJd CmVuZ U0uqngpWuD wIG9i qqq5IE9KbP x0ZXI vRmxhdGVEZ WNvZG BdULWpS8Vl IDI1O TYvTiAzPj5 zdHJl YK8HqQzawk dUU9k Wh8+9N71Qk hCKlN GsrRWDUN40 SJEuK jEJEErAkAA iNkRU cERRkaYIMi jggKN DkbEiioUBU bHrBB wK1RJmHTsC SWStG d+8ee/Nm98 f935r z70L2Esazk a6AJD 8gwXCTFgJg AyhWB Jd04XYcGak YAcBD GONA6rT8NM zs0IW +EWCaOM62D xsmRP 3L583JlZ5+ yrTP4 zBAP+flLlZ IjEAU JiM5/L42Vw ZF8k4 PVecJbdPyZ i2NE3 OMErOIlmCM laTc/ TqY7u3wRQT OfMyh ZfGc9FU8eU w5Nwn 0574Hb3RlL AZF+c I+LkyviZjg 3RJhk DGb+SxGXxO NgAok gob8lYZWAm tY5Io GxQd94nN9A jJX/D SK0nZriSVW 8XOzF ouEiSniBkm XFOGj ZMTi+HPz03 ni8XM QJ35iFAyTe iZGVk i5BAOMv/8W RR5bR myIjvYODk4 MG0tb s4i1Z0r/Ju S93aW XoR/7hlEH/ jD9ld +oE3MaAAwc dn6h2 0sSPRh8zBM u/2Hz WAvAIqyvnU OfXEe unxeUsTiLG crq9z tYLhWq4mdT +jv+p 9Zs7VsbF5D vt3v5 VY198M5iaQ xQ143 yxJ6ptKJtX 7icPk M5p+H+B8H/ nUeFh N2TG4LH2NQ RMumT CBMlrVbyBO IBZlC baW2l1u9U3 P+pNm 5lona+BHQl lgCpS PyXL1tNXld ESAJe 3Hx8I37F8I [place]/nN v4LHeP44k0 L+fVe 8AP8BIoT/j mNHRD K8TzKQ0Xe2 WgI0I ABFQAPqQBv oAxPA BLbAEbgAD+ ADAkE oiARxYDHgg hSQAU QgFxSAtaAY lIKtY CeoBnWgETS DNnAY sUQe9HB9Qb 6By2A Y3LYIUR8de CnwCs xAEISFyBAV Uod0I EPIHLKFWJA b5AMF QxFQHJQIJU NCSAI VQOugUqgcq obqoW boW+godBq6 AA1Dt 1BYsED6FXs HIzAJ psFasBFsBb NgTzg IjoQXwcnwM jgfLo B8cSJzB4xJ 7oRPw 3grREsBE9D nEYAQ ETqiizARFs JGQpF 4JAkRIauQE qQCaU DanX3eO8hJ SJGny FsUBkVFMVB MlAvK SpFA9nPVyF ahNqO qUQdQnag+1 FXUKG yC5KSESwfw zdHO6 BY5QBiQhXq uRleg t3Iq6UOuAu Q4+hU Ia9OifCPWN H9MHC YVswKzGbMb 0445h RnGjGGmsVi sOtYc 64oNxXKwYm wxtgp 3WFhBweH6g n2DI+ O4kWQ7W1u4 Togrx FXgWnAncFd wE7gZ vBLeEO+MD8 Xz8Mv xZfhGfA9+C D+Suzy PhI9uQoaJP QiphL qES3HY9L8e LeEEk EvWITsRwoo C4hlh COKX3Svmmf iVRSG YkNimBJCFt Ie0nn NYoVo1eo1x GZA9y ATtE7sEcCl 8h3ye /UaAqWCoEK PAUVi vUKHQqXFF4 pohXN UE0DNhejV0 YoXhE cUjxqRJeyU iJrcR FGcCEe7UF9 YbStD LP0RP8ILvH ebNyi /YI5XyJPUH I4kPh UYoo+yhnKG NUhKp CMJS41ADUM upZ6j gNQzOmBdBS aaW0b 2iDtCkVioq dSrRK nkqNynEVKR 2hG9E T9Mt4Zivm+ nX6O1 TkML1Hrxuo 1TbVK 5dr8rfklzr x1UrU 9hAV2W2mJ8 R91NP Mj5i8na/TQ GmYaY Vd0Tzd9Uke 8XQOb E0MRM4gwgz H59zW uUYXIGQ8D4 ju0xz YyJpC2cCDl tKq0j qf5NDogu1c naq9Q /sH7fKXVip NR6Cz Q+ekzmOGCs OTkc6 jDRQiflH8e f11Jb a9icY3C9oV elF6h Lmopet4Clw s/ST9 Hfq9+lMGOg YhBgU UuSc6WaLUM MMUw1 2G/YavjYyN Yow2G HUZPTJWMw4 wzjdu Kn1cLeEmZ3 lm0mB yzRRjyjJNM 91tet qLPnR0PmOg MRsyh 06buGVxy58 HLdAW ThZCiwaLG0 wS05O Hw9uktkbJI YMtCy 53US8QYIkL W22z6 ly0qS1adN5 daH3H gfJBoLLv48 Pzq62 NZil2aipwS PJc37 bt31fTqZ8u bse32 1U6684rR3E /wb7X /zBYx9NBav 1h0tH MVhFl6wNDj 8YKY2 5meIzIT6d7 rXY65 gLV7yJA1Dp Y+RcX ymksG8bOy6 nG8/j bZpqKrmp1p lzrXa QaDFiNy75b Unddd 457g/sDD30 PnkeT c0OueXlr81 HPZ17 WXiKvDq/Xb Gf2Sv Vwm3Mcy7uY e9CH4 hPlU+1z31f PN9m3 2QdJw58yta 8pf7R /kP82/xsBW gHcgO aAqUDHwJWB fUGko WFW7YIHxx8 CRcE9 YRSKVRk6tU vzDec A04mUfpQV4 O2h98 UQy4iReC+O CQ8Lr wl/GGETURD Rv4C6 YMmClgWvIr 0iyyL yQBzRZsL6c xWjE6 Kbo1/HeMeU x0hjr HLPjb2T80p TxHXH Y+Zd86ypao f6LNy 1dVbHOeZ18 foi40 K0tv6c9rgb vvj4E sUlnCVHEtG JMYkt gi38wIwBac TSgKW 5W2i3qC8d5 hOeB2 0Kr2Ufus/n TyS5J nMtQEj0It5 ePJni ejQC4fVBBp QLnqf 3z0msxj9TM duf9i c2Ns21H1cX mHFUS BGmCfsytTP zMoez dZJRd6TNeI ftXDY yApT6PNLDf 7K7xT QEq6RXgGJp XjKa4 5ZTk/MmNzr 3SJ5y nhMvUPfS7a 3LJ/J 9879egVrBX dFboF cfnpY3jdxZ +lXQq qWrelfrry5 aPb7G s71XzJJ7zQ t/KLQ nRD37lY4wQ U+RVt UgkfF1sssg ixWKR eO6NxxxzQb I2ijY GPwh3qqzEH 9LeCU VG02PM3jkg +Zuvv iQjTcAU85x krRls HmjxN9RqKw h1uvb 3LcdKFcuzy 8f2x6 vwDNAO0tZa pc7l+ c2NDIAPstI sEuyS 1oZXNldZVC 1tep9 oCh0YB9OHX utZu2 h2mh1evyi6 PHY01 ijXIce447p YO/Ne r/6zgajhop 9mH05 +z87Fll0l2 36url Bx4x50tC+4 X7pgY rAri7Xor0n mi1lr XCrpHXyYML By994 i5Lanfwim2 [id number] ChySHHn+b+ O31w0 GHe4+wjrR9 Z/hdb Lm3s4VI6pn eOdWV 0iXtjusePh p4tLf Ihglli7af1 x/TPV DlTXR49HsB iaITn 07mn5w+lXX q6enk 63E7Q5mqvI k9c60 vvG/wbNDZ8 +d8z5 3p9+w/ed71 /LELz opDPnTd3Zo kcKlz mF3i8oi4Lk oGHQY 6rkoWsv38A e4Znj q43aa1wmHE va+eu bIq3nMH/JH h61HX x71MiLF6ic v56Fb 4usc2z96Y0 FlzF3 646O4CrZz8 mvcbf gD0eL8rKM6 +6j06 3GFFdbxc7X EnP2X /9I549PX8S cWEzk KuY4tHwnZ1 Jy8/X vh4/EnWk5m nxT8r /0g4xNFJr8 94/DI wFTs1/lz0/ NOvm1 +ov9j/0u5l 73TY9 O3ZXk9oJpn 8UX9z 4C3rbf+7mH cTM7n kuo2wP8e+6 PkY9P Vtj1nAm00C 94Tz+ wplbmRzdHJ lYW0K ZP9zq2ThPp EzIDA bq7BbCfh2E 0NvbG 2yX0LlQ5Jp RGV2a WLyV4QsaR7 IZWln aHQgMjkvU3 VidHl oGB9XaAIsM S9GaW u6NESsAmtx dGVEZ WNvZGUvVHl wZS9Y I3YzPWD1P9 dpZHR aRXD8Uj8Zx XRzUG KbS58hjJ3r ZW50I FepNYHaA9X oIDI4 Sd5eiAFzYU 0KeJz twTEBAAAAw qD+qW nYC9XRPGPS AB4G+ 2OKjwplbmR zdHJl BB9IZJ1hk1 JqCjE 7AODyd6LuZ jw8L0 WbpM3eP5Jp Y2VbL 0wLB9Lst6O kIDEy WOOdOj2yKB VpZ2h 9GKP1O5V3Q nR5cG QnRH0sF0Jr Rmlsd GYuY3SnKTO lRGVj w6GgW5DaU2 9kZVB smr2yPSluG 29sdW 1ucyAxODIv Q29sb 3JzIDMvUHJ lZGlj jZ5uXRF4Z1 JpdHN YJEWFg57ew 25lbn QgOD4+L1R5 cGUvW C1vfjGolF7 XaWR0 aCAxODIvU0 1hc2s gMTMgMCBSL 0JpdH XDYOQDe57d b25lb fWiLQ1FffJ lcnBv lSQ0VQO1so VlL0x mpkq7rSR1N DQ1Pj 8zpNRhNN8G eNrtm wlUVEfWx2/ iJHMm 0bhGWRqatW VzwSW OE+PESEKMi iua0T gaYjQRjQIa AiKgQ NN00/vCqoC ANoLs s4IBxnxEAw FlURF QUUFAQJRFY Kq6ka BzwsbGO94T d97R4 +t671Xd+tW 9/3vr KX2cjQHBX4 r5x2e oX3h1SJJSl eTElf KHr65/12/X xaRXh SNJcSuH5Nj 4qOf/ czXl2vV4IU M/NQv 15Md0WuFK4 zc9NW mZV0/Ps75G kRfLF Tg4BPhMrEx Eoj8X lT1JLxnCfY z+1fe gD9pDWbepL ChRQI gUJAzgqe3b uL3+1 2lMn8MtGbA pJZWN Y96/hqbHqw +Gw6S hJL94qloIK ZbxM0 394EMHUHTZ 6hCDy V0vMpsdtVF Lc0Cd Brb5nGfJ2T K8rCv 3BjZqbHmam le12v EspAVEum9i 7uRl3 hGppTdrGl5 1/+qb Wr/WY4QzPL D0AkN P8TMX0aQx2 ARQp4 YmVVF9COV3 5ojYe afADFeYQia fzJT4 aYtDLEwmgx I5ID7 /zUZE/JeZU xzo8E GEo8FiWHvb XS6eJ rTk3i18c6R Xja2P SIwLv5cU9T LudVk /Vn1zE6A2l hyRlQ eigcAEJWpq boXUB mT/DCAwYDr N1f/3 NwWIoWbsRY R2shC 0OehkBOYNc 7/2xg VD2VBl9LcG 9tfcd t5Rw5EGJLj RL/YJ dzqnyrrXVp COPN/ ZUxOhv0u93 SOLOMON+6 RW54iI1pWC EaCgk 6QC5oyit3f p2ujn WOmIuPrlix Gh+uc S3ytTsVMFC QBl+u vv/bJdUaDH k4rIC bdNvLj37t8 h615u UNSOc0oOJg dr60G LKYB3KeIC6 giIFJ bqTGdpj0I+ zGkJM SHl4G82RDN 5/X+F dV18Jvtp9x 4YUGM eT0IHS4fA5 UKECH sMETHcGgT6 yKVxP kEvVdo49I8 BRXCk l92Csv+yfO ymJoC KO+fkSnw7U 4vInz dqjPaEgQYV JlrDF Hsl4xO+0cM 90FqQ jrInUHKBqW TQpxt sP5omhXLgM SPzCJ jhjqXoLIHh 1rD97 lk/kdPRud0 hNS6z cktUPp50OF 7vNOg ygOhGWHUiL vOa/N L97y8TwIwk SwkUl HEH7X827x1 UiCGX 8+5iSZcTlF gwbhF 8MMZ30Kgqa m+8L9 PMgzf236pM ZtPDU TCLDePtYJL 9B0s8 DucK1yN0b+ 0/dlF gwIaPbGDCY TBgfr U33D+uoOtZ W298I cfCNNGIZgt I64QW 6PjmLSr5kd Wn3Bh ABDFrO9PD0 w+Xsa 8LMhQu8Em2 xxCY6 GTm8el1aOT 2KTL0 xJSrz2f1+K zrvwn SrcQrl3fw3 EvF1f IgEphQ/JV5 nKl1M r4+J5W0Wvq +UNKq Awno/OKnmN OJN4Y ilwWXM2H3M mdh4j AWDWZ5x29Y JM40K vfoYZ4IZS0 5OGzN 1xLz7fW8Ff BywRk CaP1hoyRjw 1Wb2k SDtiuoc+Bj mkTjl hyhCy6KIh0 TgBID fT3uqmaCT8 p4pMM IV0kusnGT0 dwNJM RJB6mL5Tcd GLRor 98BBRcgOsd klImv kGOcA2U5dO Q6ifx u/CPgIW7H6 XBIA1 0ezPEgrAja 8GuvG ZEu8Yu+Joy IzNsW NDkB0sn1Qa eJJr6 fcu25W3Aad ZiMEp juBDMHhedn 3U9BA +XegtlbA+Q PNN09 3aDCABLHyT dvhEC odI6cokL52 qBGO8 D4LLCbTgE8 aqt9L UuU1MsxRTp 538a/ qSKpjF5yu7 28ZSH BGv2H9ppwB MHYvA t/CIDJzmg+ 8MIdY kx60O+g6Ya iGP6V lU0Qk5DxXs UJFN1 VQ0MyuE5TE Wqcj7 3DTTGFA86G 4xOVL 8nNZBdmcOG glspo dPC1buwpPL euDDN EjI9gGiLjI GaCCk r/8Gym9Rt6 lJJ/A zSYoOB6+0G /DgA1 DmyrjQm1Ei 7fNAD WRYTo5Lmyk empGB Eb/uUREEE5 s4YL5 eQlyTCMLI5 8iTo7 +BkFYPB418 tfnEK TuE4+l+Wla l+UiC r+Mwqq55Ef FXTZu IIgwyV/rosales E3zIE deSPW0hPcT YOu1A ohzfgz40aR kPWCE 3tjZsFZXeR 60LO8 iO5kpUGj+w qod7E iIwkV+d4TD E6MXO 9UNPkVP+5p vfU3R jy7j/5UkcF RCqSb 8Q6meQGVOd uDczk 0KWOYe7BaU wNH9r O+vbk6eQ/h 8hAIb bLbMErQUSN VVxxf +ivlXfrUAx Ck2HB SpMrasznYN q02B5 nC+VEZLtDC nbj+o J/6eX3JDg6 8Cwer AxECstrxDJ cApFx i/kq5RL0ES l9I2E 0jAN05m73x XMHyy Ad/janaImW 8Zk3y yrrRo+IHt/ EMsrr sVn2xXCSnk U6/aL Ncn1xi37s7 FH5xR egJYgG4+h9 SXq/C k8r7vW1XA8 XWa3d IL6US21cvo oVIkJ vafMF2qbLU Yf3X/ tzciGCchlc xGOFn i+AP3MeJ4D IGPD1 UrN8TraORG 1NiSx Fig46sayBP pGrt+ 4DgYZMtHJ/ tIzaJ cqYMVH3bO0 UQHEY VkCcDX3CNB 65ENH nyHPIE54q1 VICzc f7eEkiDpo8 JTWS4 r+tbZNtpFg HjVvo O1JgZ1dl2v oRkZX 6wcKS2MelS yILuW IvwhFekduL pIq8C P+qsCn5Xc6 4mjoM Io+l57GgAc SIo88 hDRN4YJCh+ epnXZ 2OvulAYmIF o0Ttu /1SUwhxvo3 qMzQ2 VI3jic0DIS 5Aruq aCnFSgDoxy QnAEc YNuAoWi7ic vh3Ka OV1xy0Y2Dh YJ6fk Vmw+EgmGXO yl/tq SjLy8o6jLq LUTZM vDsIi8x+K9 LV2e6 J0sisZG7WF Fkc22 aOo3BUIEBG 8y9bt 67I7HGC/Gp kYnOA 443HQ2oQeA I1+Cp krY589jo31 3IgrG fnuhUoWD0w 2jrdg JqI826nEPq Alamg wvos67gjeH vxAit bYrw2IZdCa D0Uh4 Im+3/mCMnM OcYey SDg82f85Pt V8AkY 1vg5kKFidO dWdUd wQDthxFI0E IMSgk MdgDix2KhD AiOaN FRGejyIsQm QWldf J3+tqtuxOX C+D9w 99Ynampa+r NnL97 cblq+7q8yI mYIiR EYLbnJCO+v HURZQ pe+tw6ujs6 L+VFb PWwKObjC01 UM+qj h6ShPSl2Xa U71wu jx1tD3r3ZP IdD2o dI0G5BOPMd KLyqt LpbMcOYc4m CXJhG AXVKbeOjwX JVpEX mjAKRh4+ei E1pzX 15RJLlnXKC qBapS G600wDg2+S ccizn kYqczxwkUB xFiBD iGnKjFLi2c +0dvb OxFtHhmTkl 97zQ0 uTmgUcUD3W Y2J3M IYu1tc3rmk 5vk13 j7GKHkFHAr 8DAQ8 TKahky8qt4 YRoZI pCLkgRM59r FiL5H YcuPSFfXM5 z66/C 2OyS+JCLfO 56X09 CrLMPxatbm Oh6/O THxA1ZNuN5 NzQkd TZn6qLEDPP 7i4GG tyYHo8BBtM JH+PP Hk6KBx6YXp PI8mT z+Ic7mwzuo lyF9b hOFVrcHyjS ocwD0 Z9dPo5+iX0 iJa66 Ja1CX5QBVE hZZ4e eQtbzOnRBw U1Vh5 JZJVCjAUlR wI7tI QicaIaEmhB xRoSM XaYwqU9KlA sFiMS OmwSe/3R5P kXo0d oErBjoEkOV Xup3I Qh5KiccSUm y2S3K I88kbWFEjo kPFnl ZQtmPoWcbX G3mNQ DoCLFI0Z0j iyHb0 zR+qpz1hd0 2wJlj 2xVApwpbG8 AQkzD v0tAqGw7cZ xC8gT P8HCDP3DuX 0+hYQ Hpzfi6oiL4 7yzl3 WzV5Pm3xcl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 gm/dL [facility] Albumin Lvl 4.6 3.5-5.0 NO [place] gm/dL [facility] Glob 1.9 2.0-4.5 LO [place] gm/dL [facility] A/G Ratio 2.4 1.0-2.2 HI [place] ratio [facility] Bili Total 0.5 0.3-1.2 NO [place] mg/dL [facility] Alk Phos 86 IU/L 38-126 NO [facility] AST 17 IU/L 15-41 NO [facility] ALT 14 IU/L 7-40 NO [facility] ID Date Data Source [id number] 07/15/2019 09:54:00 PM EDT No [facility] Added by Discern Rule [id number] Name Value Range Interpretation Code Description Data Migdalia rce(s) Supporting Document(s ) eGFR-AA 84 >=60 NO [facility] mL/min/1.7 [facility] 3m2 [facility] The CKD-EPI equation for non- Breann rican [...] Mild decrease* G3a 45-59 Mild to moderate [id number] 30-44 Moderate to s evere decreaseG4 15-29 Severe decreaseG5 14 or less Kidney fa ilure eGFR-ELIZABETH 69 mL/min/1.73m2 >=60 NO [facility] The CKD-EPI equation for non- Bre[place] rican [...] Mild decrease* G3a 45-59 Mild to moderate [id number] 30-44 Moderate to s evere decreaseG4 15-29 Severe decreaseG5 14 or less Kidney fa ilure Procedure Social History Code Duration Value Status Description Data Source(s ) Smoking 08/03/2019 Never smoked completed Never smoked No [facility] - 12:26:18 PM EDT tobacco tobacco (finding) [facility] (finding) Center Smoking 08/03/2019 Never smoked completed Never smoked No [facility] - 12:26:18 PM EDT tobacco tobacco (finding) [facility] (finding) Center Smoking 08/03/2019 Never smoked completed Never smoked No [facility] - 12:26:18 PM EDT tobacco tobacco (finding) [facility] (finding) [facility] Center Smoking 08/03/2019 Never smoked completed Never smoked No [facility] - 12:26:18 PM EDT tobacco tobacco (finding) [facility] (finding) Medical Center Vital Signs ID Date Data Source UNK Name Value Range Interpretation Code Description Data Source(s) Diastolic blood 82 mm[Hg] 60-90 mmHg Normal (applies to 82 mm[Hg] N OtherInboxe Health pressure non-numeric results) - [facility] Systolic blood 124 mm[Hg] 90-130 mmHg Normal (applies to 124 mm[Hg] N Ringleadr.comnce readeo pressure non-numeric results) - [facility] Oxygen therapy No [facility] [Minimum Data - [place] Set] Hospital Center Oxygen saturation 100 % 94-100 % Normal (applies to 100 % Zignals in Blood non-numeric results) - [facility] Postductal by Hospital Pulse oximetry Center Diastolic blood 62 mm[Hg] 60-90 mmHg Normal (applies to 62 mm[Hg] N [facility]nce [facility] pressure non-numeric results) - [facility] Systolic blood 116 mm[Hg] 90-130 mmHg Normal (applies to 116 mm[Hg] N [facility]nce [facility] pressure non-numeric results) - [facility] Respiratory rate 18 br/min 14-20 Normal (applies to 18 br/min [facility] br/min non-numeric results) - [facility] Heart rate 64 bpm 60-100 bpm Normal (applies to 64 bpm [facility] non-numeric results) - [facility] Oral temperature 97.1 [degF] 96.4-99.1 Normal (applies to 97.1 [degF ] [facility] DegF non-numeric results) - [facility] Oxygen therapy [facility] al[facility] [Minimum Data - [place] Set] Hospital Center Oxygen saturation 100 % 94-100 % Normal (applies to 100 % [facility] in Blood non-numeric results) - [facility] Postductal by [facility] Pulse oximetry [place] Diastolic blood 71 mm[Hg] 60-90 mmHg Normal (applies to 71 mm[Hg] N [facility] pressure non-numeric results) - [facility] Systolic blood 109 mm[Hg] 90-130 mmHg Normal (applies to 109 mm[Hg] [facility] pressure non-numeric results) - [facility] Respiratory rate 18 br/min 14-20 Normal (applies to 18 br/min [facility] br/min non-numeric results) - [facility] Heart rate 67 bpm 60-100 bpm Normal (applies to 67 bpm [facility] non-numeric results) - [facility] Oral temperature 97.5 [degF] 96.4-99.1 Normal (applies to 97.5 [degF ] [facility] DegF non-numeric results) - [facility] Respiratory rate 18 br/min 14-20 Normal (applies to 18 br/min [facility] br/min non-numeric results) - [facility] Oral temperature 97.7 [degF] 96.4-99.1 Normal (applies to 97.7 [degF ] [facility] DegF non-numeric results) - [facility] Oxygen saturation 97 % 94-100 % Normal (applies to 97 % [facility] in Blood non-numeric results) - [facility] Postductal by [place] Pulse oximetry Medical nt Heart rate 62 bpm 60-100 bpm Normal (applies to 62 bpm [facility] non-numeric results) - [facility] Diastolic blood 74 mm[Hg] 60-90 mmHg Normal (applies to 74 mm[Hg] [facility] pressure non-numeric results) - [facility] Systolic blood 110 mm[Hg] 90-130 mmHg Normal (applies to 110 mm[Hg] N [facility] pressure non-numeric results) - [facility] Oxygen therapy [facility] [Minimum Data - [place] Set] [facility] Oral temperature 98.1 [degF] 96.4-99.1 Normal (applies to 98.1 [degF ] [facility] DegF non-numeric results) - [facility] Oxygen saturation 95 % 94-100 % Normal (applies to 95 % [facility] in Blood non-numeric results) - [facility] [place] Pulse oximetry Medical nter Heart rate 75 bpm 60-100 bpm Normal (applies to 75 bpm [facility] non-numeric results) - [facility] Mean blood 80 mm[Hg] 80 mm[Hg] [facility] pressure by - [place] Noninvasive [facility] Diastolic blood 67 mm[Hg] 60-90 mmHg Normal (applies to 67 mm[Hg] [facility] pressure non-numeric results) - [facility] Systolic blood 106 mm[Hg] 90-130 mmHg Normal (applies to 106 mm[Hg] [facility] pressure non-numeric results) - [facility] Oxygen therapy [facility] [Minimum Data - [place] Set] [facility] Respiratory rate 18 br/min 14-20 Normal (applies to 18 br/min [facility] br/min non-numeric results) - [facility] Oral temperature 98.4 [degF] 96.4-99.1 Normal (applies to 98.4 [degF ] [facility] DegF non-numeric results) - [facility] Oxygen saturation 99 % 94-100 % Normal (applies to 99 % [facility] in Blood non-numeric results) - [facility] by [place] Pulse oximetry Medical nter Heart rate 79 bpm 60-100 bpm Normal (applies to 79 bpm [facility] non-numeric results) - [facility] Mean blood 92 mm[Hg] 92 mm[Hg] [facility] pressure by - [place] Noninvasive [facility] Diastolic blood 77 mm[Hg] 60-90 mmHg Normal (applies to 77 mm[Hg] [facility] pressure non-numeric results) - [facility] Systolic blood 122 mm[Hg] 90-130 mmHg Normal (applies to 122 mm[Hg] [facility] pressure non-numeric results) - [facility] Respiratory rate 16 br/min 14-20 Normal (applies to 16 br/min [facility] br/min non-numeric results) - [facility] Body mass index 17.6 kg/m2 17.6 kg/m2 [facility] Nancie chester (BMI) [Ratio] - [facility] Body weight 46.75 kg 46.75 kg [facility] h Measured - [facility] Body height 163 cm 163 cm [facility] h - [facility] Body mass index 17.6 kg/m2 17.6 kg/m2 [facility] (BMI) [Ratio] - [facility] [Minimum Data - [facility]] [facility] Patient Treatment Plan of Care Planned Activity Planned Date Details Description Data Source (s) Prazosin 1 MG Oral 08/12/2019 11:09:00 [facility] - Capsule AM [facility] olanzapine 10 mg oral 08/12/2019 11:09:00 [facility] - tablet AM [facility] Lorazepam 2 MG Oral 08/12/2019 11:09:00 [facility] - Tablet AM [facility] hydrOXYzine 08/12/2019 11:09:00 [facility] - AM [facility] Vitamin D3 08/03/2019 10:52:00 [facility] - PM [facility] Vitamin D3 08/03/2019 10:52:00 [facility] MG Oral 08/03/2019 04:21:00 [facility] - Capsule PM [facility] zonisamide 100 MG Oral 08/03/2019 04:21:00 [facility] - Capsule PM EDT [facility] clobazam 20 MG Oral 08/03/2019 04:20:00 [facility] - Tablet PM [facility] clobazam 20 MG Oral 08/03/2019 04:20:00 [facility] - Tablet PM [facility] lacosamide 200 MG Oral 08/03/2019 04:19:00 [facility] - Tablet PM [facility] lacosamide 200 MG Oral 08/03/2019 04:19:00 [facility] - [facility] PM EDT [facility]
[2020-02-09 16:16] VITALS: BMI 16.9
--- OUTSIDE RECORDS SUMMARY | 2020-02-13 06:15 | XMS ---
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 Description Data Migdalia rce(s) Supporting Document(s ) 2018-nCoV [facility] RNA XXX ELIZABETH+probe- Imp This lab was ordered by [facility] and reported by [employer] ID Date Data Source [id number] 10/14/2019 12:00:00 AM EDT [facility] Name Value Range Interpretation Code Description Data Migdalia rce(s) Supporting Document(s ) 2018-nCoV [facility] RNA XXX ELIZABETH+probe- Imp This lab was ordered by [facility] and reported by [employer] ID Date Data Source [id number] 08/17/2019 08:19:00 AM EDT [facility] Name Value Range Interpretation Description Data Sup porting Code Source(s) Document(s ) Neut Auto 57.1 % 40.0-70.0 NO [facility] Lymph Auto 29.3 % 22.0-44.0 NO [facility] [place] Auto 10.5 % 4.0-11.0 NO [facility] Eos Auto 2.4 % 0.0-8.0 NO [facility] Baso Auto 0.7 % 0.0-3.0 NO [facility] Neut 2.3 1.8-7.7 NO [place] Absolute x10(3)/[facility] Lymph 1.2 1.0-4.8 NO [place] Absolute x10(3)/[facility] [place] 0.4 0.2-1.2 NO [place] Absolute x10(3)/[facility] Eos Absolute 0.1 0.0-0.9 NO [place] x10(3)/[facility] Baso 0.0 0.0-0.3 NO [place] Absolute x10(3)/[facility] ID Date Data Source [id number] 08/17/2019 08:19:00 AM EDT [facility] Name Value Range Interpretation Description Data Sup porting Code Source(s) Document(s ) WBC 3.9 4.5-11.0 LO [place] x10(3)/[facility] RBC 3.39 4.00-5.20 LO [place] x10(6)/[facility] Hgb 10.5 12.0-16.0 LO [place] gm/dL [facility] Hct 31.2 % 36.0-46.0 LO [facility] MCV 92 fL 80-100 NO [facility] MCH 31.0 pg 26.0-34.0 NO [facility] MCHC 33.8 31.0-37.0 NO [place] gm/dL [facility] RDW 13.3 % 11.5-14.5 NO [facility] Platelet 222 150-350 NO [place] x10(3)/[facility] MPV 7.8 fL 7.4-10.4 NO [facility] ID Date Data Source [id number] 08/16/2019 08:30:00 AM EDT [facility] Name Value Range Interpretation Description Data Sup porting Code Source(s) Document(s ) Magnesium 2.1 mg/dL 1.6-2.5 [facility] ID Date Data Source [id number] 08/16/2019 08:30:00 AM [facility] Added by Discern Rule GLB_ADD_GFR_BMP Name Value Range Interpretation Code Description Data Migdalia rce(s) Supporting Document(s ) eGFR-AA >90 >=60 NO [facility] mL/min/[address] The CKD-EPI equation for non- [facility] rican individuals is used to calculate the [...] Mild decrease* G3a 45-59 Mild to moderate [id number] 30-44 Moderate to s evere decreaseG4 15-29 Severe decreaseG5 14 or less Kidney fa ilure eGFR-ELIZABETH >90 mL/min/1.73m2 >=60 NO [facility] The CKD-EPI equation for non- [place] [...] Mild decrease* G3a 45-59 Mild to moderate tbjxfhykV1k 30-44 Moderate to s evere decreaseG4 15-29 Severe decreaseG5 14 or less Kidney fa ilure ID Date Data Source [id number] 08/16/2019 08:30:00 AM EDT [facility] Name Value Range Interpretation Description Data Sup porting Code Source(s) Document(s ) Glucose Lvl 97 mg/dL 65-99 NO [facility] BUN 13.0 7.0-21.0 NO [place] mg/dL [facility] Creatinine 0.66 0.40-1.0 NO [place] mg/dL 0 [facility] BUN/Creat 19.7 7.0-29.0 NO [place] Ratio ratio [facility] Sodium Lvl 136 136-146 NO [facility] mmol/L [facility] Potassium Lvl 3.8 3.5-5.1 NO [place] mmol/L [facility] Chloride 104 98-109 [facility] mmol[facility]L [facility] CO2 23 17-33 NO [place] mmol/L [facility] AGAP 9 5-15 NO [facility] Calcium Lvl 8.3 8.3-10.2 NO [place] mg/dL [facility] ID Date Data Source [id number] 08/15/2019 04:31:00 PM EDT [facility] Name Value Range Interpretation Code Description Data Supporting Source(s) Document(s ) Physician No [id number] [facility]9MKMS[facility]I [facility] [id number] [facility] [id number] 5cGUv [place] Dv1mnY1MYG NlRm9 neW6HDIh2Y XRpY2 YgXR5sb2Bx bmcvV 5piYV7gdHS uY29k kF8xWc7YPL 5kb2J qCjIgMCBvY moKPD wvRmlsdGVy L0ZsY GKpAWOqk7M lL0xl fyz8jZTlDO 4+c3R yZWFtCnicK +QCAA AxYQwLLT1h c3RyZ WFtCmVuZG9 iagoz UAQpx3ZrGh w8L0Z zwZGivw8Yh GF0ZU SjU35hQQ0I ZW5nd GggNjk+PnN 0cmVh hUa6eKAJ9P rk0o/ INFAwNFAIS eNyCu EyVDAAQkMF I1MLP XNTBQtDPQs jhZBc Il1KuDIDtC h+Rad jZanZz3bNI yAXAL RrTf7YJA7l c3RyZ WFtCmVuZG9 iago0 JISoo3ZsKc w8L1B lD3URy2OjC 1VzZU 5vbmUvTmFt ZXMgN SAwIFIvVHl wZS9D RCYqwQ5pO5 91dGx pbmVzIDYgM CBSL1 FlN8HqCAzo MCBSL 1ZpZXdlclB yZWZl nuJsE0PoML ggMCB DJb6EOA2th 2JqCj cgMCBvYmoK PDwvS 8qtg9x6VWH gUl0v HKftAE2ZPS dlcy9 Bw7MkpHIxL 0lUWF DhDj9qTemh Pj4KZ P3kz8MxXfB gMCBv YmoKPDwvQ2 91bnQ tVS5JkLFiu CAxMC AwIFIvTGFz dCAxM CAwIFI+Pgp lbmRv YmoKMTEgMC BvYmo BZf5SW7HRR XNlZC AxMiAwIFJd CmVuZ T1kmbhaUkM wIG9i llu9BI6XhH x0ZXI vRmxhdGVEZ WNvZG EwUCArJ6Tu IDI1O TYvTiAzPj5 zdHJl MQ5QpUsthz dUU9k Wh8+9N71Qk hCKlN LreGEPJL60 SJEuK jEJEErAkAA iNkRU cERRkaYIMi jggKN DkbEiioUBU bHrBB uW4WTeOCxV SWStG d+8ee/Nm98 f935r y17C6Gttms a6AJD 8gwXCTFgJg AyhWB Us33OGnCsd YAcBD GFAF6gI4CQ zs0IW +ZSKbVE23U xsmRP 3X537SbV3+ yrTP4 zBAP+flLlZ IjEAU JiM5/L42Vw ZF8k4 PVecJbdPyZ i2NE3 OMErOIlmCM laTc/ DjY4h1hOSC OfMyh BeRs4SH6pS w5Nwn 6770Sz9BbO AZF+c I+LkyviZjg 3RJhk DGb+SxGXxO NgAok lza9aDZNOu tY5Io ViYa17gE1R jJX/D DX7kMfnVFY 8XOzF ouEiSniBkm XFOGj ZMTi+HPz03 ni8XM NT98uVOuUx iZGVk o1FNYZg/8W RR5bR myIjvYODk4 MG0tb p3q3T8f/Ju S93aW XoR/7hlEH/ jD9ld +yW6SmDZce dn6h2 7pINCb0iPI u/2Hz WAvAIqyvnU OfXEe unxeUsTiLG crq9z mYCdUz9haY +jv+p 2Wt2YlgX2K vt3v5 LJ748W1nkW xQ143 wqK7fkSHrF 7icPk M5p+H+B8H/ nUeFh M3SD5YO3EY RMumT CBMlrVbyBO IBZlC pjT3a3t8D9 P+pNm 5lona+BHQl lgCpS DoNT5gHBhe ESAJe 1Ru9V99O8D [place]/nN p9HIiD30q9 L+fVe 1NG4GNrT/j mNHRD V6VwVD8Xg3 WgI0I ABFQAPqQBv oAxPA BLbAEbgAD+ ADAkE oiARxYDHgg hSQAU QgFxSAtaAY lIKtY CeoBnWgETS DNnAY nUBg6WP8El 6By2A E2QQPMX6dz CnwCs xAEISFyBAV Uod0I EPIHLKFWJA b5AMF QxFQHJQIJU NCSAI VQOugUqgcq obqoW boW+godBq6 AA1Dt 1TYtZD0DDh HIzAJ psFasBFsBb NgTzg IjoQXwcnwM jgfLo Q6yDSyQ4yV 7oRPw 0ajPGpTF4J nEYAQ ETqiizARFs JGQpF 4JAkRIauQE qQCaU ByiE2zJ1hM SJGny FsUBkVFMVB MlAvK LrYU2kQUhA ahNqO qUQdQnag+1 FXUKG wS8CGIPnlp zdHO6 TO6QIpOsUm uRleg x4Cz5NSlDx Q4+hU Vz4XpkYDUQ H9MHC YVswKzGbMb 0445h RnGjGGmsVi sOtYc 64oNxXKwYm wxtgp 8EDvHyyV0p n2DI+ U9fCI4M2e6 Togrx FXgWnAncFd wE7gZ vBLeEO+MD8 Xz8Mv xZfhGfA9+C D+Suzy DpQ9lLeqLT QiphL iVQ0YC0X3k LeEEk EvWITsRwoo C4hlh ZWFC3Vqutj iVRSG YkNimBJCFt Ie0nn RShPi2xa3g GZA9y XZuZ0dCcDx 8h3ye /UaAqWCoEK PAUVi vUKHQqXFF4 pohXN QY5PArsdG4 YoXhE cUjxqRJeyU iJrcR GPqISu2BT4 YbStD DJ0ES4EZlO ebNyi /IJ5HfXOPQ I4kPh UYoo+yhnKG NUhKp JUGK88KJLY upZ6j gNQzOmBdBS aaW0b 2iDtCkVioq dSrRK nkqNynEVKR 2hG9E D9Ac0Ljon+ nX6O1 PtYT3Biksv 1TbVK 9ni8qvgjid x1UrU 5qLY0T3rR7 R91NP Qv9k4jn/TQ GmYaY Ys8Mwi1Tvs 8XQOb Q9ZWK1jfid H59zW oRRRPPU8V5 ju0xz YkOdH3dXXw tKq0j iu6HGkre4k naq9Q /cM5jPQYvl NR6Cz Q+ekzmOGCs OTkc6 eWGBpacG3v f11Jb n3tpT8X5sD elF6h Gsmidw3Wpn s/ST9 Hfq9+lMGOg YhBgU XbQs8MbABE MMUw1 2G/YavjYyN Yow2G HUZPTJWMw4 wzjdu Sd9gIlDbS4 lm0mB yzRRjyjJNM 91tet qKErF8OlAj MRsyh 78dsZRnz29 HLdAW ThZCiwaLG0 wS05O Jh9qgzlzNV YMtCy 04GX6ETZnC W22z6 iy5wZ0soF8 daH3H ubFCrEVk83 Pzq62 EYqx7uewsI PJc37 tx32dBqX8o bse32 1V4767cZ8E /wb7X /zMLc9LFoo 1h0tH UMeSk8rIMj 8YKY2 2zlZuHF8a7 rXY65 hLB0eTP7Vw Y+RcX msjwY3gMp8 nG8/j xYjqOakb5e lzrXa AxZUrUp24w Unddd 457g/sDD30 PnkeT g7FdeSuy14 HPZ17 WXiKvDq/Xb Gf2Sv Gqn2Gwg1jE e9CH4 hPlU+1z31f PN9m3 3AmJd01occ 8pf7R /kP82/xsBW gHcgO aAqUDHwJWB fUGko MIO6ZTXbc0 CRcE9 YZKVFMa7qY vzDec N24xUgdWZ5 O2h98 KGe7wRjK+O CQ8Lr wl/GGETURD Rv4C6 YMmClgWvIr 0iyyL zCHpWVuI3b xWjE6 Kbo1/HeMeU x0hjr BRTqe5A73d TxHXH Y+To98tzth f6LNy 0cZwJNyK46 foi40 G4nr0n4gve vvj4E sUlnCVHEtG JMYkt hj05yElBvj TSgKW 8T9u9nX5z0 hOeB2 9Bk5Wjfj/n TyS5J jDnHYi4Ua5 ePJni frCE0gAXTo QLnqf 9b5xjsd5CX duf9i e1Lf45H1qJ mHFUS BGmCfsytTP zMoez aWTKu4AAzS ftXDY wVoF1MSJZr 7K7xT ZGv9FTtGPb XjKa4 5ZTk/MmNzr 3SJ5y kqXsUQmI8b 3LJ/J 9879egVrBX dFboF qpnrK4vvjW +lXQq qWrelfrry5 aPb7G y96ScGG3lU t/KLQ iDI06bH5aA U+RVt YbvmP4qopr ixWKR eX2LjprjHj I2ijY DJqg4hjaFJ 9LeCU YC91NC5okc +Zuvv dWnKvWU50r krRls OsigS2BkTs h1uvb 3LcdKFcuzy 8f2x6 adYYAW4rZe pc7l+ x7SPSCLnhH sEuyS 1oZXNldZVC 1tep9 pEy4PT6VQK utZu2 i5nn0upkj5 PHY01 uxQEjh344u YO/Ne r/6zgajhop 9mH05 +c08Atd3o4 36url Cv4f65bF+4 X7pgY yPsd4Amn7l mi1lr XCrpHXyYML By994 l0Azdfrps6 e3lx4 ChySHHn+b+ O31w0 GHe4+wjrR9 Z/hdb Am7b2CG6zr eOdWV 0iXtjusePh p4tLf Ftvcnu7sk0 x/TPV VgPAQ87WvU iaITn 07mn5w+lXX q6enk 35M7X1lttY k9c60 vvG/wbNDZ8 +d8z5 3p9+w/ed71 /LELz biYBoCq2Hd kcKlz jG3c3ro5Dn oGHQY 3azmNrx39M e4Znj u47gy9fxRL va+eu tQj2rOY/JH h61HX b62VmVD0qt v56Fb 7vll7w92P5 FlzF3 683W6JeHg7 mvcbf eZ7iP5kGD2 +6j06 1NJJbuor6I EnP2X /0W616KH7O cWEzk CjC2yJlwZ6 Jy8/X vh4/EnWk5m nxT8r /1r3fPLNj8 94/DI wFTs1/lz0/ NOvm1 +ov9j/0u5l 73TY9 J3GFh2lJrf 8UX9z 4C3rbf+7mH cTM7n ypg2uG8i+6 PkY9P Bjk6oVg51V 94Tz+ wplbmRzdHJ lYW0K NR2ne4FnMo EzIDA fq6EyHtv7H 0NvbG 4nE5FvU5Md RGV2a NEdA1FynY4 IZWln aHQgMjkvU3 VidHl lOT4MoWEgN S9GaW g4RIWbVmxr dGVEZ WNvZGUvVHl wZS9Y V4BkYOA0N4 dpZHR qRGQ9Jf9KQ W5ndG ggMjgvQml0 c1Blc kNvbXBvbmV udCA4 Hm4ndALvXW 0KeJz twTEBAAAAw qD+qW uJB9MGPUHV AB4G+ 2OKjwplbmR zdHJl SV3MPE6tw5 JqCjE 5LGQml5BxU jw8L0 NabG1wN5Np Y2VbL 2wOH6Jph7M kIDEy DSCmBf0vOI VpZ2h 9GLI7A4E9Z nR5cG QlNU5tK0Mp Rmlsd UDsW1IuAMG lRGVj a9XlP5V2yW UvWE9 wrnSveS8HY WNvZG VQYXJtczw8 L0Nvb HVtbnMgMTg yL0Nv jK7mhjJnP4 ByZWR kR9IaefGdO S9CaX NfMCDnG85b cG9uZ W50IDg+Pi9 XaWR0 aCAxODIvU0 1hc2s gMTMgMCBSL 0JpdH ZCQJOJz02z b25lb oDqUK2MesE lcnBv eVE6YHH1lv VlL0x vyds1bDL6A DQ1Pj 3pnNYwHJ9P eNrtm wlUVEfWx2/ iJHMm 0bhGWRqatW VzwSW OE+PESEKMi iua0T gaYjQRjQIa AiKgQ NN00/vCqoC ANoLs t4TKxhjDPl FlURF QUUFAQJRFY Kq6ka TcyfnLJ49D d97R4 +t671Xd+tW 9/3vr AK8cvWMIH9 r5x2e cQ3m9PYAUi eTElf KHr65/12/X xaRXh YBOuXmH3Vf 4qOf/ jfYb3uJ0WF M/NQv 97Jg2NeUQ0 zc9NW mZV0/Ps75G kRfLF Eb0YNlWeVf Eoj8X fB4WNryCuJ z+1fe tL3tDEgxbC ChRQI xDNMvvzs1u uL3+1 7fLs5GzVjA pJZWN Y96/hqbHqw +Gw6S kTW98vipBP ZbxM0 394EMHUHTZ 6hCDy Q0bThlpxVR Lc0Cd Qht4gHfZ6T K8rCv 3BjZqbHmam le12v JfzYNDpm9o 7uRl3 hGppTdrGl5 1/+qb Wr/ZD3GyHD D0AkN H4BBJ8qQo7 ARQp4 FiWYR0ZDF9 5ojYe afADFeYQia fzJT4 aYtDLEwmgx I5ID7 /zUZE/JeZU xzo8E QVk0AbIAcb XS6eJ aKe6q26b7N Xja2P FJbYk2nH7X LudVk /Sp7cT8D5g hyRlQ eigcAEJWpq boXUB mT/DCAwYDr N1f/3 NwWIoWbsRY R2shC 0OehkBOYNc 7/2xg TW6ZYh2DrT 9tfcd t6Ih2EHYVk RL/YJ dzqnyrrXVp COPN/ ZOdNmd2x49 SOLOMON+6 BU47rW7sQC EaCgk 1XR6xciz2u p2ujn WOmIuPrlix Gh+uc P2haRtYKGQ QBl+u vv/bJdUaDH k4rIC ypRdOm31m9 h615u ESJWu3dMJv dr60G FBPE0EqXK1 giIFJ zvLYvfl7C+ zGkJM QXr7R81TPJ 5/X+F aQ67Ayhy2a 4YUGM rD3DJR7wV4 UKECH sMETHcGgT6 yKVxP yDqKyt34K0 BRXCk l92Csv+yfO ymJoC KO+uoJlk4U 4vInz dqjPaEgQYV JlrDF Hsl4xO+0cM 90FqQ jrInUHKBqW TQpxt oP7zhwYHtK SPzCJ jhjqXoLIHh 1rD97 lk/kdPRud0 hNS6z eqlNEs54YU 7vNOg ygOhGWHUiL vOa/N B31b5FrNkm SwkUl DRJ7M924m1 UiCGX 8+5iSZcTlF gwbhF 2SQH45Gsgt m+8L9 NPdbb626mS ZtPDU TCLDePtYJL 9B0s8 ZddV8zC9j+ 0/dlF gwIaPbGDCY TBgfr U33D+uoOtZ W298I cfCNNGIZgt I64QW 4UbvHKc5re Wn3Bh SPOTtB1YR8 w+Xsa 3BFnUb4My6 xxCY6 HJt5kk2qSU 2KTL0 jHCpj7q2+K zrvwn KaaYmz6en6 EvF1f IgEphQ/JV5 nKl1M r4+X2N5Bnx +UNKq Awno/OKnmN OJN4Y wesVLU3H1Y mdh4j SKGSO4c16G JM40K kckAH5RFZ4 5OGzN 4mYf9mH8As BywRk JxZ4uojKge 1Wb2k SDtiuoc+Bj mkTjl bqbEj8PUc4 TgBID pW9vpykXN1 p4pMM OZ1ybzvBU6 dwNJM ZWB8bD0Xjw GLRor 98BBRcgOsd klImv nOHlA8G1qR Q6ifx u/WJpFI7C2 XBIA1 0ezPEgrAja 8GuvG ZEu8Yu+Joy IzNsW VNkG5ln9Mv eJJr6 usy27I6Tfx ZiMEp juBDMHhedn 3U9BA +XegtlbA+Q PNN09 3aDCABLHyT dvhEC koC6bsyK68 qBGO8 O3FSCsHpZ5 aqt9L CyD3WrpTPu 538a/ bLMwyS7vt3 28ZSH PIp3V7yerC MHYvA t/CIDJzmg+ 8MIdY kx60O+g6Ya iGP6V eH5Ub0EeDq UJFN1 DZ6DiwU4AN Wqcj7 1DOLVMQ51B 4xOVL 8nNZBdmcOG glspo vOQ8odcbSP euDDN NfL1aYyNuP GaCCk r/3Otx8Ko5 lJJ/A zSYoOB6+0G /DgA1 VdrzsDc7Sl 7fNAD KCRWx0Fdup empGB Eb/uUREEE5 s4YL5 eQlyTCMLI5 8iTo7 +PkCIWB479 tfnEK TuE4+l+Wla l+UiC r+Flkw77Hu FXTZu IIgwyV/rosales E3zIE qjVQH1eAgN YOu1A ydsobm32yN kPWCE 3tjZsFZXeR 60LO8 nG4irYZo+w qod7E iIwkV+d4TD E6MXO 9UNPkVP+5p vfU3R jy7j/5UkcF RCqSb 9X1cbWSTAe uDczk 0ABEAs0CkX wNH9r O+vbk6eQ/h 8hAIb bLbMErQUSN VVxxf +ivlXfrUAx Ck2HB SpMrasznYN q02B5 nC+VEZLtDC nbj+o J/1tS8JHu3 8Cwer AxECstrxDJ cApFx i/dc2VX0VI l9I2E 5aVL78w88c XMHyy Ad/janaImW 8Zk3y yrrRo+IHt/ EMsrr iGq3pFXFjw U6/aL Qkx6to85j0 FH5xR egJYgG4+h9 SXq/C s4a4lK1TH7 XWa3d MN3UO38mnt oVIkJ edsHP0hnGJ Yf3X/ tzciGCchlc xGOFn i+ZJ8KgL6B IGPD1 BsM2ReaERD 1NiSx Edj12rcqLE pGrt+ 4DgYZMtHJ/ tIzaJ jwNSFV8mY6 UQHEY JrInUV8MLI 65ENH poIHEX19p5 VICzc z0tAqnVtn2 JTWS4 r+tbZNtpFg HjVvo Q5VxZ9es1f oRkZX 3wmOR1LzoH yILuW IvwhFekduL pIq8C P+qmSr1Py1 4mjoM Io+o99MjNz SIo88 mDDJ2ZWKc+ epnXZ 2OvulAYmIF o0Ttu /7TXbctmt3 qMzQ2 LZ3cgq9CDI 5Aruq aCnFSgDoxy QnAEc CFzNnHd1oq vh3Ka LS2if5M4No YJ6fk Vmw+EgmGXO yl/tq EhJk3t6xBd LUTZM vBzTn9h+K9 LV2e6 A7exkFB5IF Fkc22 cSf5RJTOFV 8y9bt 58A4JOE/Gp kYnOA 334OY7hSoN I1+Cp rgC534ps66 3IgrG vmrsYaQE1l 2jrdg LgQ191gFHt Alamg kepn88btoP vxAit bKga8DGlXh D0Uh4 Im+3/mCMnM OcYey POg66o70Fq V8AkY 1dc4xQPiuX dWdUd jOUjoxOB0W IMSgk PvhKen0CcK AiOaN FRGejyIsQm QWldf J3+tqtuxOX C+D9w 99Ynampa+r NnL97 cblq+7q8yI mYIiR EYLbnJCO+v HURZQ pe+pr2gwl9 L+VFb CPhAOidY38 UM+qj q9YcGJd5Ne U71wu py8xC1b2VT IdD2o eR0W3NUEWa KLyqt GbbLaDQa0s CXJhG AXVKbeOjwX JVpEX mjAKRh4+ei E1pzX 15RJLlnXKC qBapS W523fGp3+S ccizn kYqczxwkUB xFiBD cZgXdSZm4f +0dvb OxFtHhmTkl 97zQ0 fSobPfHA9B Y2J3M OFe0dc0vec 5vk13 b4ARFoMXPd 8DAQ8 PDdxgq9sz3 YRoZI fDJzhIL90y FiL5H YcuPSFfXM5 z66/C 2OyS+JCLfO 56X09 CrLMPxatbm Oh6/O FCwB8THtW7 NzQkd DZi8jBIOLP 7i4GG laBNg6QCoB JH+PP Co5AQt3SKo PI8mT z+Pp7oocyc lyF9b hOFVrcHyjS ocwD0 Z9dPo5+iX0 iJa66 Qn0PD4KOWZ hZZ4e eQtbzOnRBw U1Vh5 JZJVCjAUlR wI7tI QicaIaEmhB xRoSM HxDrkA2JcX sFiMS OmwSe/3R5P kXo0d oErBjoEkOV Xup3I Sx9JmdvZWe y2S3K J73tqASEik kPFnl ZQtmPoWcbX G3mNQ UiLVEQ6V6f iyHb0 zR+cwq5mu0 2wJlj 0wPAnukzU7 AQkzD n3rZgNi1wT xC8gT Q7MCRQ6BwG 0+hYQ Mnmra3viD6 7yzl3 ExD4Xq9hoc tl6mX Kpk9aj4Xgi Z1EEB 4JlyTttQ5r YYQqR O9p8JppwML oYgZf Q4nDOHGQYe rPe6B 31JD4zNeif ZiOjx p6OWvq5vZ4 eU4TS OhR4rT8q0K m4POM hZ5ych28yM ngcoU SneQjp75Dx t/LGf Dn+Kv1EiUT O+CJS t7OgE7l0UJ lStyS 6rhBpWIY9O Ip/7X LNnxfBYx7M 9yksD FiV4gFpYbu uax6S c/p0sdRN/L FNUXa UjstoyUvxh 4uoDw 5e98Lie7fw GKyX/ hsRPX+2Nxv k3Wli m2L26vXR7B CtrHh 68zPTasp3/ aRftQ eTguiFKbvG eUy8K tKAstCLjsk vwR6Z aHEGYJKnwi ejhRG Ztg+TXkN/a xWC3R GLvYyQNqDL 107Ba ZUzI5qsUgC wAJCH F/Qev3BiOf Z1yMh M+rjo1Tqs/ LXZ3d fN7k2kzRXN brBOA yIAZlCvlD6 Tbk0j BypHItGJdK K+sK6 yh3X2oLntg jVK8m PQyvFmIFow 23YJ5 rCz71Nv2s3 Q5goy dSRL0IcW+c 4htff J755k7r4JR 5YA6+ MEhVE23vWT wMY0c KLntgnemkD ZYMKg O7OolLQIo9 FlrE9 B57R6mIdk9 yVpuH fghb7CRzOr uy80j rXApuv+73M LrDyz ZKRM/98S7L agN8j ckqplTQmD8 1YHvO MBMwR/akHh 4AxMJ glrFsyR3W8 rhIye CpdVE02FP7 puOmx s9zfJHw2Dg FAXH/ Ee50JNYFnk q9AXb zuhsEFbceX iIk05 o71l1qKYbZ bzQZ5 gzkuKzb/Y9 ra0NK VYn/HGXGl1 1lf/O YoeOlJ2DWY Gf0EC A7fKfZLWpO XFR4v tddVggDV5x DT5Xb Y69JyNsoOT wLKBr r/t7VQG3NZ fISUl yLhQT3SW09 WhvSE tR12SJs96U A/6/d gvCUWq6vPH TL/Oz e+/oXJjugs erzcM BLIKTi7sef 97Q/L e3BnGSp9s+ kQVTX NUKjP3IUVF OuIJz Ll3oxTXmm1 DGx6Z Wp8BEJ/joq PH+8M 2RiCLDjo7Q RApMd G7WVa1t6sM FvmYj 4jHE0IHq9g 1PHku L88ZMxa+oz ppq5G J8BL09IKB1 /SigJ VtGy1dSRhk vRP9c azlI+mUX3t 9kfX4 PJbOvzS+0r G1HUt 0DJTcpGptb dlHOT Rv3FHbPSzE contact lens inspector+l F8nhsF94g/ Hs3z+ TuQG0niFMf fx4fP 8mbWlV/XuL eWj8H txlioX0JR6 v2dQ6 +WfX/lfvo2 ZtsU0 JTiiVeO/SX UJYyA WvS4mSP1yl 9r7Is a+xTNzlnNF 37wH3 2K8s0dyLpt Gddar pF1rPD2cQo Q1+Jm viO0PG0/h0 VO6Ee wQRAGq97H5 rhO97 n5jxRzGOCo LX3jt FjoBVTFjpj 7/M1a IiV+8R0Stp a2pbY B0lJi4vFD+ WvOuw 0tlMUgaMx9 r/e8A CPlpUlKBLE jE6p7 D4k53W6r/1 xB8P/ Y6CXZqqivi gnJZe Q+hkrz8gMh bOJ1z M31zel/vCq u7VQ8 /bY+yO2/ce lVU2N W2bB0TXWTc ouNt5 XXzTB/UWkV d13Kh 6CEpUnJXos Y6dyG xrf/oWkbeH 5FHf/ Wcw29TYdar B4Dp+ qiowa0eaCY ms0D/ OPcQpuxL3W eTtgQ 8J73GDcjZ6 CALKb mgwiQLKZEt O8pvS /2hMvC0T5x A552o tOitrmt+sn v8Plv HJ8UxaczWz dHJlY U4KLB1gd6C qCjE1 SSVyh5WoVh w8L0d it2BpGVraL y9Ucm Ymq7RqsoWc Y3kvS AK3xgZzI2b gZmFs k8FdO9SyRB EgMCB ICo7iL42lf GVudH NbMiAwIFIg MTYgM CBSIDMgMCB SXS9U lCEfK7FcU6 UvUmV ew9OoY7NwJ DwvQ2 2pn4EQkUEc ZTw8L 5WfPiA5nMY SR0Ig MTEgMCBSPj 4vUHJ tD5TajPDyF 1BERi PiVSX9aBRc SW1hZ 9PTPJ7DbTE nZUMg S3dnVKnbAK 0vRm9 woOm4K0yuB m8gMT uqUFWKU5zz bHYgM JqmTGUWA4m pMCAx YUBcAv6EDX 9iIDE 9DPLcBx1+L 1hPYm nlU4X8QR9s bTM1M cE0YVG8DQZ gUi90 SpI0GcXbKE IwIDA gUj4+Pj4vU GFyZW 50IDkgMCBS L01lZ LmlKz22QhF gMCA2 MTIgNzkyXT 4+CmV aQU2tflh8U DAgb2 IdPfj2C7an ZHNbM TUgMCBSXS9 UeXBl M1MgN3NoT8 NvdW5 0IDEvUGFyZ W50ID ylMRWLWv9G ZW5kb 2JqCjIwIDA gb2Jq Mak7K9wxm3 VwPDw iJk2DmsTgb 3Bhcm OsE9aoC4Ga L0lDQ 7Lct3IyYIG yIDAg Ul0+Pi9TdW J0eXB aG6Ixjr4eP mlsdG NkZ6KvVGMg RGVjb 6QgY6C8lZT vWE9i onBqcK0VTQ RyaXh bMSAwIDAgM SAwID GzO7Nbxi4O eXBlI JRoLbXpo7H yY2Vz PDwvUHJvY1 NldFs eNNMED9Rgz HQvSW 3gZ7SJH6pl YWdlQ r1AdCEeXXw dL1hP GtfxH9H0VV 9pbTM 9SzC8PXV8X DAgUj 4+Sb5yCbJr eFswI DAgMTgyIDI 5XS9M HT5tnBexUQ k+PnN 1vmDrtFx8u NPPzD R4CWw7HLJE BwARc gLfCmVuZHN 0cmVh bQplbmRvYm oKMTY gMCBvYmoKP DwvRm hyjRJmH1Kc YXRlR QByr7WtJ2g lbmd0 yISbIWa6Rj 5zdHJ zUS7EqShRY Vtv2z YUfu+vILAX G6gVU ndlT/GlrYf ayWyn xbYMgyIztg ZdXF2 Stb9+R5RIy o4tV1 aHNXAtUiTP Od+50 pz4QmSNZKC /1UG6 zbtGBj1S2U 3HtpE OFbPuarV3a MYx+v VNsZqtJUjD JrIMX SYUvxoDD9J whbCC xSfZoKsPdB gjeLt 6EvswGjiKB idigl vnR27R1mvm /p9o9 csbhCarNwd ENEex mS0MXbBsqa BPUyr Z1VGMR6Plb ATPiO ADGpZCbHb+ jefFe LB79XC5mZZ rEsrE 4UmKcn5mdo 2SQKV StKlXOhb8B OKCzG iUuQEffaBu kG356 S0qt4YYbhH x+3Q2 myxmN/P5W0 7w5m4 x/kqSg2PiC c3ois U6KfjVr2Mz 0DM4Y +tyTZoWFtJ kcUQD 6y0Logh3oI Pecx+ oCi19PvrlE jyMb4 gYDky8D38K xSB1e 75F9RogTO2 Wi3Fn NRcS3JkaGf pzk7R Ko1cnJO6mU zcp6B c4zKsSYQr/ 8SeiG qo+aFRaJ/I fb0dg EtKdZK6i45 2xxiw AdPpmM0oQH C79Z/ MHFTE2mKiU xh3C6 ys7BXKBJsd pm4U6 u9DZzxc+Ur GKT5s Q0ILORCuG9 ejDze G9yCmjhVCX U71YV wo5sRuAWjZ TLeiX aNBkVI8esv 4pFmT uoyTm2Oyah GZj8u rW5K2Yept7 P8qkV J8lqS5q/GUANAKITO eFq1U XxfKYCJaaS Lcx51 rzeGDyXjVp FSTKJ V5ttcLzu2C XVPRT GBXIs13rCA Zx14e UllmeDFkZz 9Ka+M mmu6KyFnva 27m17 k03ISYoYLJ YPA6j rvza69qcSj k6e6S XUNkCbA6Lw OED6p evIPU9slDb rSW+Q 3WeJwHj5v5 pY9M3 FBMrQ4ej/A 4F+ck MmpCK4wuLA VCZRQ 8Od67eWSs8 VbUS5 WQUM/fFTCK YL8Lq ZoFHFK7f0p bL5mm eefP6Jcf4J qCx3T nco+uz7vi6 aFn68 GYY1LsjAak YKVKo qpc0FbDsKt rQqMy frWQ/8QOKF ht27H 4Dsz+SuRuH 6utfI Zrihtm3BsN aACU4 Io51kqI/jX 1Pd8V Mo/hCK4L39 VkPb4 rNlRKUMjv8 z3QFQ T2nNYWrV5G QmSAf oEiURUHBXx UfgV8 dfl/gLZw9A v6jCK cOUZ9Li/hy 4D1GI 0koxsIBbn1 gbCtL 2hZMPidPBq aVTEE k0QbYKi6jT vwHNQ iVIizT4o7D J+GTh AKCjJ3jwsa MezIc R22cJ+ZI8x +N6xo UOJZsArCQ5 pwCJ+ 7jNPX+j8Ks NBAcG AgTbwSSzlk lU0d4 4NgTdwQq1D jk0uL 8eL0aCFdwX ryZtZ ZUdUiHXn73 V5Ksz fRQi6IeUGm 3qfpa ZCcSXo5iUL 7uVpN w6jsoZwUPn 281kQ rsK8lF4DI0 cVkeQ /tLIGcKTS+ XJXSc qQrm3wW9Ct DDVN/ LjPUQ+9TH9 mQznm d6dSJLdUPO hwMaC 940mNp5e29 MRM5c l6Mvq+/wd2 pL9zI Voz0ZWai8n Ntv3f HzDOO/3YlN EfNxa qZyxmgbNLN Z6bv5 5ce5UU8Q3m Q4lQV nsALPNZiaC 2h1qt VDMQCh9LCY kPvoI R+6Iuekmml USCzW +U7g4PK1tt BDcne 3BIG2PYKDN C91CM lVmNxesfC5 kGZL2 r4YITPRnTt ZBAHo jR/twsfT2e OX3wZ FZjo7BsKcb Y9Wdt VE5PdLvCNg TmZ+p sIAobnSkbq 9S47k o0w8dQCpO7 WZTSj OnIk1LnFj8 qpyEe +eILKulhcW VdG01 H3AsuF0BS3 urxdc 4OcleFKcXK l1ANr Oe5sKXIq2M 6j/wi NcfkLJuqyP zKdCY pMQTJD1UUU t7IXk S9ZbqEhAHa 5UxXS 92I3T9TdQb 9ixsC kk5U6CC+52 Olt3W lsaVu69UIg WFmhW luNN1K7801 N6kce rekvErwXy2 /FupD R/9qkIYbNl rbRER SCpulgiBgt dZTUL lPoobPQwI8 20kv8 J5u1XEa/ym KJXc3 HRNn8DXqID ZbL0z cpzMTL4rDx ppKdr pnNq94ygvm 5uCcR XKbl+f/ktf 48TV0 [id number] bhd/j rUCk+p6IoR N/Qjp aYSM5pX0zb PLGAv oSsWsC6/ap 0jAKK whzipBQSAl E1W3p /GS4y9TcU2 9QI4t YIAEwWbTlv 5WwYX 3cGQDhxMWq eDBfX iMASkGLjpd Ruiln NhRPtc+oUI Zn4gr WjN1aBRJO6 Fz0q1 q4Mb9R13Ii PUhh6 9V4rLTGBZV 1urC+ Z0WHRXK6PK /gyGl b9Kjc9+uHP ldZAX xI/dUhc2z5 TCb4x euZGTB6tPC jU7Ta ST+t/y5AKj 1A3rQ o2gq3f8aTu 1N9hH hUEQlAnoZZ Dv5LJ 0VYSdodj02 1kuLw h8aZtSLrpt 61Ygq ekGw66tKS8 fG4Sc BNTLkjgqUm GwVxT DqI7WeXDgu ENTu+ +N3rn4p0W/ Rk6we fK85Jm16Ig VM6/L ofw78f2oEd ONumn +Z1jSBO8SL f043W nmYXXajpMz HR+/r phr4q1PitL vJ/8C 6SG+cgplbm RzdHJ aRW4ZOZ7ab 2JqCj X2NDAgk6Mb Cjw8L 05hbWUvSGV PYi9T hNL1lTLbR9 R5cGU sR0F4hZAyM m9udC 8XUMUeYy1g dC9IZ Rd7OZLzG3D tT2Js vWR1UU6Pab NvZGl tGv1CvH8Ph nNpRW 7pi8Qujxj+ Pgplb mRvYmoKMTc gMCBv YmoKPDwvTm FtZS9 REQXiE9E2M nR5cG UvVHlwZTEv VHlwZ M0Qf343A7P hc2VG j372O2rbjU ZldGl dFE5Fc8kyM 0VuY2 8pxT3iV4gc bkFuc 2lFbmNvZGl uZz4+ CdQjIS2cjh oxOCA yJT2qqfd3F C9OYW 0uG3cxmWEp U3Vid IpeVG0NoXF lMS9U nSXrV1Xjny QvQmF zZUZvbnQvS GVsdm P8bYArR0Ys Y29ka T2vV7svqbA uc2lF bmNvZGluZz 4+CmV qUL1ofsn3H DAgb2 NcSfu1Kr2H ZW5kb 2JqCjUgMCB vYmoK PDwvRGVzdH MgMjE rMMSDOj9EV W5kb2 JqCjIyIDAg b2JqC mw8F6GxEVW gMCBS I4eLVxCfSm A1OTg gbnVsbF0+P gplbm RvYmoKMjMg MCBvY moKPDwvRFs xNSAw IFIvWFlaID M2IDU 5NSBudWxsX T4+Cm EcVN2sxuag NCAwI N6rccq8CU9 EWzE1 FLImGy4QYG ogMzY mLgU3GC85i GxdPj 6TWK6rq3Il CjIxI IJuz6BjNir 8L05h bWVzWyhfYT NlNGU 1MTctYWJkN C00ZT BmLWJiZGQt NDdhN DRhZDhlMWF hKSAy MiAwIFIoXz E0OTN eGpJ1LVXjE GUtND IuRC6nJiWh LTNkO WZmNjgwZjF lYykg MjMgMCBSKE 1LTUc oNPj7k8oue WFuIE CuycX2tUQs IDI0I DAgUl0+Pgp lbmRv YmoKMTAgMC BvYmo KPDwvRGVzd ChNS0 1HLVBoeXNp Y2lhb zCQp98jjRc 0KS9Q YXJlbnQgNi AwIFI aFGf2xZE6N mVmZj AwNTAwMDY4 MDA3O TAwNzMwMDY 5MDA2 MzAwNjkwMD YxMDA 2ZTAwMjAwM DQzMD H0GxAeMrMn MDczM IU3UFCeJuX wMDc0 Pj4+CmVuZG 9iago uJAQmVR7eb go8PC 7Qv8VAORYk KEQ6M fCtFXW1JEY xOTM5 NTAtMDQnMD AnKS9 DcmVhdGlvb kRhdG UoRDoyMDIw MDQxM nY5Lhz6FPm tNCcw WRktC2Sdc8 R1Y2V yKEliZXggU ERGIE GiMJS6a7Hl NC45L jAuMTUvODQ zOCBb ZxACKW7JG8 I7IG1 vZGlmaWVkI HVzaW 5sBEiFWJe2 IDIuM S31POZ6ZUF UM1hU KT4+CmVuZG 9iagp 4cmVmCjAgM jYKMD AwMDAwMDAw MCA2N TUzNSBmIAo wMDAw WPTiNLX6PV AwMDA cHZ3fOxAmZ DAwMD AxMDMgMDAw MDAgb iAKMDAwMDA wMDE3 OSAwMDAwMC BuIAo wMDAwMDAwM zE0ID TmEOPoRJ5f CjAwM BGdIIB8JVN gMDAw MDAgbiAKMD AwMDA iQMV0JRAhQ DAwMC BuIAowMDAw MDAwN YG9HDGtCPH wIG4g CjAwMDAwMT A2ODI gMDAwMDAgb iAKMD AwMDAwODA3 MiAwM DAwMCBuIAo wMDAw HTOpBCA2KB AwMDA qCG2sAcNiO DAwMD Q7MPMsBVHi MDAgb iAKMDAwMDA wMDU3 OCAwMDAwMC BuIAo wMDAwMDAzM jQ3ID XhEBMlNA4t CjAwM JPuECY0LsA gMDAw MDAgbiAKMD AwMDA wNzczOCAwM DAwMC BuIAowMDAw MDA4N PJ7MEHcDMO wIG4g CjAwMDAwMT A0Nzk gMDAwMDAgb iAKMD AwMDAxMDU4 MyAwM DAwBuIAo wMDAw MDEwMzcyID AwMDA fEN0mJlSdY DAwMD gxMzcgMDAw MDAgb iAKMDAwMDA xMDg3 NiAwMDAw BuIAo wMDAwMDEwN zM1ID EbBCBsGF5s CjAwM XInGCP4NGS gMDAw MDAgbiAKMD AwMDA xMDgyOSAwM DAwMC BuIAowMDAw MDExM TcxIDAwMDA wIG4g CnRyYWlsZX IKPDw qAI8xweWzW SAwIF IvSUQgWzxh ZmYzZ BnkOJB7BBb xNjll ZlTiRMZ5QD NjZjI 4QUhzXh02H jEyMz hiYTRlZTE2 NzljO WEwZmUwZmE 1Yzk3 ZTcwMWE+XS 9Sb29 0IDQgMCBSL 1Npem UgMjY+Pgpz dGFyd HhyZWYKMTE zNTEK UTZSV7VK ID Date Data Source [id number] 08/13/2019 07:32:00 AM EDT [facility] Center Name Value Range Interpretation Code Description Data Supporting Source(s) Document(s ) Discharge [facility]ag [place] h5NZ5NlUX9 [facility] 1Q3tNVlT3S 5cGUv Center Xw1wkB9CSS NlRm9 tvK1YLFr9W XRpY2 FdRQ3oh5Co bmcvV 1ceNP7hhPQ uY29k kC8jFa6LZC 5kb2J qCjIgMCBvY moKPD wvRmlsdGVy L0ZsY UPbWVAnl7M lL0xl mjj9fSCiMQ 4+c3R yZWFtCnicK +QCAA NeFYoTRL3a c3RyZ WFtCmVuZG9 iagoz EGFya8SmVn w8L0Z twBFxkb5Iy GF0ZU WkZ68yQL0B ZW5nd GggNjk+PnN 0cmVh yKz3cJYA1N rk0o/ INFAwNFAIS eNyCu EyVDAAQkMF I1MLP XNTBQtDPQs jhZBc Wk0EoPZIhC h+Rad RCyxRk7bUV yAXAL G0Li8UHD2n c3RyZ WFtCmVuZG9 iago0 SBDjk6BhRf w8L0Z xsLIqia9Tq GF0ZU BcO02hKJ2F ZW5nd GggMTA+PnN 0cmVh iEx8jZsuYx AA7gB 6AmXtVJP4e mVhbQ plbmRvYmoK NSAwI W7peso5YV2 GaWx0 ZXIvRmxhdG VEZWN vZGUvTGVuZ 3RoID qfXf6epMKr YW0Ke XoIRBBd7UB PyDRU MDRQCEnjcg rhMlQ wAEJDBSNTC z1zUw IANg9DY1UT XC6Ng PV7IFHdwgn 0BSPN hAct6vNgBY 4AtIM K0TqgroQug HJlYW 9NUG6pa4Vs CjYgM CBvYmoKPDw vUGFn ZK5tIDXsQI NlTm9 lSP6LPO4qb yA3ID IkDz8NjAMl L0Nhd FXid5amO3T 0bGlu ZXMgOCAwIF IvUGF nZXMgOSAwI FIvVm csy9RzQEXa ZmVyZ V2nVXCsNPJ gMCBS Sv1OUZ5mp0 JqCjk gMCBvYmoKP DwvS2 okm5ntGRJe IFJdL 3N8kKSbMQL nZXMv X833vaVdPh 9JVFh MDMFaNO51D T4+Cm CbAP1rjyu7 IDAgb 5MgGfa7T6K vdW50 IDEvRmlyc3 QgMTI xRYGQW0isx 3QgMT FwUJEMNu3G ZW5kb 2JqCjEzIDA gb2Jq ClsvSUNDQm FzZWQ gMTQgMCBSX Qplbm RvYmoKMTQg MCBvY moKPDwvRml sdGVy Z6KfVSCpYR Vjb2R tP9fixit1t CAyNT g7X87lBk8+ c3RyZ WFtCnicnZZ 3VFPZ TcwXiYo7EQ IQipT Vw7iKFeqKi UiRLi oxCRBKwJAA IjZEV HBEUZGmCDI o4ICj E4SfTdaEZY Gx6wQ ZRNRxcBQbl klkrR nfvHnvzZvf H/d+a 5+6e33p275 WugCQ /IMFwkxYCY AMoVg P4fbAuX0AM 2AHAQ zwAANsAOBw s7NCF vhGApkCfNi MbJkT +Aa8ho7z+f sq0z+ MwQD/n5S5W SIxAF CYjOfy+Nlc GRfJO R9FaJV6D7e YtjRN zjBKziJZgj JWk3P wNVa05uruR znzMo Q8NkgrhiJp 8OTcJ +ONORK+jJF gGRfn SGd1Ea8pE6 N0SYZ Axm/ksRl8T jYAKJ KyZfJtJ5Of LWOSK HBSXzY6FXH IyV/w 0x8XkO3Vln /Fzsx hAuQjd3mUG lxTho 2LG5aat21T 54vFz FUIP01e7lX YmRlZ HOFyAGbP/F kUeW0 AavO94Rj7N DBtLW 2+KNR/Xfyb kvd2l l6Ef+4ZRB/ 4w/ZX fpkNALCmZb XZ+od taRUAXesBU Lv9h8 4sCbRXed00 Dn1xH oq2TuAJ7je nK6vc 9WmSRY7hEZ /o7/q oPo0CB4zYK r7d7+ VhePOTOJJ0 MUNeN 25meqZExMj O4nD5 DOafh/gfB/ 51HhY R/CS+iC+UR UTLpk axHLu3K5oU iAWZQ Jyoti+J+a+A/ D/qTZ pSnZ7wvF7J ZYAqU hGkB+HgAoK hEgCX awY2XkkIwB RwP5z YvRmZid+8+ C/n1X uEz+yBYkf4 5jR0Q yuBJRzuya/ FoCNC ZKXZFE4uHw 6AMTw KN3tMJ3DB/ gAwJB MItHyGIe9D IUkAF EIBcUgLWgG JSCrW YcaBW1oHX2 gzZwG HSBY+A0OAc ugctg BNwBUjAOno Ap8Ar MQBCEhcgQF VKHdC BDyByyhViQ G+QDB UMRUByUCCV DQkgC FUDroFKoHK qG6qF d3FnuYJTge gANQ7 egUWgS+hV6 ByMwC abBWrARbAW zYE84 GN6TE8JY8W I4Hy6 Bn0HDeVQ0G O6ET8 VO6PVKOz+B pxGAE YT4xheyVPc CRkKR eCQJESGrkB KkAml I5kWrrP+5i kiRp8 hbFAZFRTFQ TJQLy j9ZnzGaekK WoTaj xqLKOY7sCz RV1Ch qCvURTUZro s3Rzu yTjXx3RL5S LkZXo CfNDgax6GN 0OPoV TrAmQ0ajlc h/TBw mFbMCsxmzG 9OOOY UZxoxhprFY rDrWH OuKDcVysGJ sMbYK nlF4RoeBV7 59gyP alSQ7SV6tD E6IK8 NP9KsuK0ND cBO4G irS0pZrbB/ F8/DL 7WP0OwrRph g/jp8 yODGPQc4FC EIqYS 1jwzDOCNb5 S3hBJ UV5tD3ZaLQ AuIZY SJiDST5sNg 4lUUh mJDYpgSQhb SHtJ5 1g0HD0APUZ RmQPc vwMPS9Ehvb fId8n y6KoKtioFU jwFFY a6Nr9NvqNx KaIVz VA6TGpwTqu WKF4R XFZ4tfJKsv Iia3E LNwnVNN0KA mG0rQ sOinBLJU5V 3mzco vyBeVHFCzF iOJD4 VGKKPsoZyh jVISq G5MModS03X bqWeo 4DUMzpgXQU mmltG 3hf1JzFPfY nUq0S c2NnvqjYRp doRvR A+ip9GZ4Hb p1+jt PWBMVUu4nL tU21S osx7JmeMsw 8dVK1 NrVRtTeqTP UfdTT 0Eghx6hh18 BpmGm Ea+Nx3FI1v /F0Dm 2OqxnjaBN2 h+fc1 yN9eCSrYTs o7tMc 1VqR5hwp23 rSqtI 6o/NLw41hi Z2qvU H7gLjeNcMI TUegs 5KfnB3afwf Dk5HO xDL7GrD6IP X9dSW 94amSsxD4m npReo H25Mv08Tq5 LP0k/ B89gzkYMya GIQYF Vw5Skc7ztx zDFMN yty7Lt15Wf WKMNh t2PC7rFyBI MM43b jW+y1W0bUe ZZtJg nh6AJ8giJC PdbXr ECQuaI1xcv zEbMo sSYjeD3pbA hy3QF x9LBfrHmwf MEtOT uxOrNW1g1u 2DLQs tuyyfWRlYx Vtts+ q3+cuce05k 3Wh9x 0LsR8xOoQH j86ut eP5Dqpo58t zyXN+ 5q+p4m69nN 27Ht9 abw8Oxoe4b v8G+1 /3Bt0SEdMY NYdLR wDHRsdbxBo vGCmN jJx83Gms9R a12Ou b62ckEGgh3 2PkXF 4YIgkcTm3K 5xvP4 8xrnjbnquX Jc612 fvax9JKj2w lJ3XX mRw3K5Jd61 D55Hk 0mGp6okqaw Bz2de 7o0roh6m86 xn9kr 2KW/E28+7x HvQh+ AL2EDts51V zzfZt 9V3ys/eb4X fKX+0 f5D/Nv8bAV oB3ID bgPfQy8GEk X1BpK RTFdJIQ3PD gkXBP ISeJCJY3uF 78w3n C+z2oUVOpL Dtoff CoOXRqI8jj gkPC6 5EpvpaJ8PB 0b+Au mDJgpYFryK 9Issi 70SZREmieq MVoxO jw0Yrv0pNs MdIY6 4oC5QkqgSR E8R1x 2Pjo+Ob4qc X+izc gFR5xG5gZC H6IuN FeYsuLNZYn L74+B LFJZwlRxLR iTGJL YnvOaGcBs7 00oCl tUunuGzuLu 4Tngd vB2+S78ov5 08kuS yDMh6Ilh5q njyZ4 g2EvcWBrNL UC56n +bgYee4PE6 3bn/Y kEHn1ESHQf ZhxVE zRlau2GnBu 8zKHs 0zuwnUnd7k X7Vw2 QYhHVKUF1Z uyu8U 02c/UgMREs l4ymu KXV8RfFli0 90iec k8vz6H73mN Nyyfy ffO/XoFawV 3RW6B bsLZgdKXny vpV0K ksa7lL340q Wj2+x m/NgbWEtWl rfyi0 LiwvfLkuZl 1PkVb GfqGq9P2aA 4sVik PNFil5fBvf iNoo2 Zy9rp6lzq2 fS3gl M6xfIzqG34 /mbr7 5jx8YkG776 pK0Zb DMoWzPVsxW 4dbr2 9y7PGqWZf8 vH9se fn6lB0FPoF 6XO5f xbUAtH0S2b 7BLsk taGVzZXWVQ tbXqf PNO2IuQV92 7rWbt whdGe4t9o+ zx2NN Qn2GIMgopl 2DvzX q/+q8Gr0yA fZh9O islJsZ74y/ N+rq5 SaOptOnDfu F+6YG JF56Ean8JA ZotZa 1mt6O95qVS wcvfe H/A4vGif9+ nt5ce Aockhx5/m/ jt9cN Tl4gIwL78n Wf4XW 0HtaOkE+pc 3jnVl dPl5H5iDq6 aeLS3 r6Iw26iP1/ cf0z1 Rj5tqzNwYv omiE5 9O5p+cPpV1 6unp5 BCacKh118k JPXOt R1kx6OxW2a PnfM+ j5etpS9gz9 fyxC8 0Qjr7hDnv6 5HCpc 8B+oOMH+x8 6Bh0G L8wlu4yeP9 3uGZ4 3fOKK+5XTV 72vnr bJgN4BsImK 4etR1 2/eSLghvcm 7+ehW +j1gi1Twx2 xZcxd 9t+Se0r2K+ 5r3G3 40/eUg8fE9 Puo9O iCrbXO8C6a xJz9l //R+vOgh+W HFhM5 N3zXbO2cwa ScvP1 49rZaG7eIG p8U/K /9c+8zk2Xe /ePwy AZU5Up1e8U zTr5t fqL/Y/9LuZ e902P R3KnlhFb4B vFF/c +At623/u5h 3EzO5 77HvKz+Yfu j5GPT n7zhTL68+A /eE8/ jUFP9eh6Zj ZWFtC cThVT1kwnv xNSAw VA2mmgj9YA 9Db2x vclNwYWNlL 0Rldm ljZUdyYXkv U3Vid QelCQ7ZjOF nZS9I ZWlnaHQgMj kvRml fuOCkV1AsB XRlRG Rtl9TwG8R2 cGUvW C0smoSizQ4 XaWR0 aCAxODIvQm l0c1B lckNvbXBvb mVudC J9H9bxsmr4 aCAyO D4+v9DuSAE tCnic 7cExAQAAAM Kg/ql nDB+gAAAAA AAeBv swep8OMJ6l c3RyZ WFtCmVuZG9 iagox IhOqVP1gac o8PC9 As7cyziCxJ WNlWy 3GO2OVPEEm ZCAxN ATqPFHsV0L 1YnR5 bYGeQM2mR6 UvSGV uC3r3EVV3X 0ZpbH Uldb6ElMN3 ZURlY 15lHA7ElDU lL1hP CgkkJ5YnKB Vjb2R eFQSfpCC4T C9Db2 k3hV5hSWI1 Mi9Db 9qgmpAyBz1 QcmVk aMD6a2MeNM UvQml 1i1PvknGjb XBvbm BmkQO6Jx2x V2lkd QriVEkwW7A NYXNr MHE5EARkZf 9MZW5 jqHfdBGS5W S9Jbn RlcnBvbGF0 ZSB0c wHyF0NamSO QZXJD w24gm84abt QgOD4 +c2UmMXTzM nja7Z aSOFBI8zmy 4iRzJ vC2PwwvduL lc8El jhPjxEhCjI ormtE 2BoS6QD5PX gIioE XNlAW9bxuV gDaC7 IuAArIZwyY BZVER UFFBQECURW CqupG n2SIC6V8+x 3fe0e Jhaw2A2odR vf976 wz2u0uUFT/ K+cdn jYd9GZI2KF XkxJX yh6+uf9dv1 8WkV4 BwB5LeI6t6 +Kjn/ 9rI9pdE4V7 DPzUL ++wVgQ3aY8 M3PTV hmOfSo2Y+R pEXyx QRbNy7gMcb RKI/F 28BJKgX8YU s/tX3 mGiWSQF34j QoUUC MD6XXlP4IW Li9/t dIUKeCJhMU 6SWVj BRew9etu6y PhsOk fzOOtg16wU WW8TN N/tUMA9Z22 eoQg8 h+9jXOKx9j C3NAn V21cItc11f CvKwr 6bY8pww4fx pXtdr bUCbiAN6EI O7kZd 9LwqL4asfd df/qm 1q/2COEqVQ w9AJD T9Bkj+r2Xe QEUKe AngDmeQGRO eaI2H mnwAxXmEIm n8yU+ GmLQyxMJoM RICHEY+ /81GRPyXmV Mc6PB We7eMkMxns 10uni y8GxPtl2+z l42tj 0CLCnOHQ+R C7nVZ P03+mg+zPc YckZU HooHABCVqa m6F1A Zk/wwgMGA6 zdX/9 icJbBXd4ZG EdrIQ tDnoZATmDX O/9sY SfHVQKyF9x vbX3H XdzcfBQCAL kS/2C Dg5r8v997d Qjjzf 6WCr61aP+d Dg2Pu gWhWddp8q5 BGgoJ CNVCIU45IU Kdro5 5pkhMk84Pg Rofrn DvMIzbVCmC UAZfr r7/2yXVGgx 5OKyA qLCJhGtuH/ Ieteb kiRSMeMGSJ 3a+tB gQxzPGHByN oIiBS B3ZTT0u4eN sxpCT CVst0+9SUR Of1/h ci/i9yBJYA +GFBj ISdxzEdmz9 lChAh 2NLGz2YlG+ silcT 5wi5ZykCT+ AUVwp JfdgrL/snz spiaA kljy3r9s5G eLyJ8 0vho9uEHRW SZawx R2RlLMcgEE PdBak Q9fB7Vccux k0Kcb bgvKLamWHx Ej8wi O4G1z9HnY3 timmy/e 3NL7YL7ftk ITUus 2oYREpuPVi +7zTo LrRgNel5Tx 7zmvz WfNL+BJRc8 UsJFJ Rwjdg+99pt lIghl /QoUneSM7P YMG4R l9HwAIZqsg 5vvC/ Uod1b4nerd mbTw1 Mgih7q6WWY /QdLP SXeh1lqhiF tP3ZR AIPRa6cxgs EwYH6 1N9w/rqDrW VtvfC HHwjTRiGYL SOuEF gGsnZj5OWr Fp9wY O3GTJjoSCF cPl7G rAY6BGnx09 McQmO vgnFN9pULL diky9 LjFHK+IvPi s678J zoMmHa+2qe RLxdX yIBKYUPyVe ZypdT K+PlugtVa4 /lDSq yER5Dpdu9f TiTeG AeXpOxI4UA ZnYeI mGUDd10Olr CTONC c9cFKOPFt+ OThsz fIgrPaVNyn QcsEZ GYFeKcoBc6 9Vm9p Qx8MhuRBgN 5pE45 bWpy5+mR8u E4ASA 0nvV60B5Yg aeKTD QDyQ3RVWTI HcDST DBFdYwOjp6 Ri0aK /fAQUXIDrH ZJSJr 0XjPUw1n3C kOon8 iqxr3cV/Re 1wSAN dHszxIKwI2 vBrrx mRLvGLvjpm iMzbF gyqjPHLeBL XiSa+ lDkyqgrj2F WYjBK F1wWfL9MqP 91PQQ Da3fXHIzXf DzTdP g3edpJXx6b 3b4RA p9TzsftPpl 6gRjv AkJJ9vEQvy 2qrfS rA6UK3QXtU Od/Gv 2Lb0cYss5n tvGUh 1VX+WOZrcV jB2Lw JdjoTzp8zO vDCHW JMetDvoOmG ohj+l qN4nBfBAIo lCRTd QErZ1Kq/FA 1qnI+ +EAyiUx+Nl +MTlS /JzWQXZnDh oJbKa Slct06QkYA nrgwz NM5GYIBRyV Rmggp K/0sqO1ZG/ JSSfw A0eVRajwxN vw4AN Wav8QTO+Es +3zQA 1zDmcOVHpK HpqRg RG/7lERBBO bOGC+ XkJckwjCyO fIk6O /hckTzzPeN rX5xC c7pECeiswT pflIg q/iabqOfRq hV02b xAIKGya14x BN8yB SF7qslEuJQ GDrtQ VtERc2hZuK pD1gh S3Q0zXFM2y etCzv SLeP3ccJ/s KqHex IiMJFfneEw xOjFz oPNF3TP/ua b31N0 Y8u4/+VJHB UQqkm /JpZ7ACsU2 rg3M5 I29DKDjOhe cDR/a qom14GjmR5 fIQCG 8t9dBC0RXr VVccX /zt4C031IT QpNhw UaWZ2gB01N atNge AgfiARW6Dv p24/q Cf+9U6v2ya fAsHq bRTBzFo7Jt XAKRc Ji6EYYX+gz pfSNh N7xw++ne9Z lzB8s iAj41s4nAq vGZN8 sc83pSwG5q xDLK6 2wJ+3TRwJM lOv2i y6Z+6YPd4+ BR+cU XoCWIBuPof Ul6vw luMN9XDaG+ 11mt3 X8xVjpS6ZJ 6FSJC EUVJBj91YF mH91/ 8s2YxghDUQ MRjhZ 4vlxORbUdE iBjw9 LtA2u94nLt NTYks SCwlB9JtYz KRq7f fL5HPKOSwm 7SM2i lLvYID02sD FEBxG BQBsF1otKK uuRDR 7sIMl8AadM VSAs3 K/WN4OcSJ+ SU1ku K/wP4UnjMQ B41b6 DOiKT/ZHvJ KEZGV 5IwD8jZLBA ciC7l gG7LTStOzk 6SKvA j/s51n+y7u OJo6D PSFozzC0mc EiKPP JTRSdFEQKv nqZ12 myz7hILSaC aNE7b v+ZxKKq9Io qjM0N cuaoEx6TQV eQK7q sdlrRwK8Tx kJwBH CFUD8glw80 L4dym iwtppOReFm mCen5 FZsPhIJhlz spf7a jYxv9dNyb0 S1E2T Jicjnu8/iv S1dnu ndIYAj9qbf BZHNt olYNiFTzyA PMvW7 dvD+ERhPxq ZGJzg TrBCjlpL32 iNfgq Zphtt/HMNf NyIKx z6WMAgOr+2 to63Y FJTfNdoTjq QJWpo UBvahm9KWk b8QIr osi7hon6oi g9FIe CJvt/5gjJz DnGHs jRWuNsdtgH lfAJG EBXWCaTX9c 3VnVH h1JH1STEhi CDEoJ Q6dF9VzR9f wIjmj RVWaw1sCAN kFpXX yd/rarbsTl wvg/c RcDT1wgXmi zZy/e 4T1qod7gQo JmCIk JRE62xImay x1EWU KXvqqtLKqe y/lRW qKQwWX3orv 1DPqo 2uTbQSouGK 1O9cL rjr6dzvKSD SHQ9q IiOSPFhETq yi8qr M2pjRwIg/Y wlyYR qZ8Cj5hb0O yVaRF 5owCkYePno hNac1 0wBOI4L5gp qgWqU jtfNYxYuPk nHIs5 1GHbG9gPNQ cRYgQ 7IZYrqFI1A ftHb2 frKwN2Ex1J fe80N SA0YD5sjt0 WNidz VE6f0tZArI ub5Nd 3NgjEpBwBZ vAwEP DVK5q4/Xb9 2EaGS DEFOV5YDZ9 hYi+R 4XAt0yX2hR c+uvw rpzhjtTf1b uel9P GfjuB6PdN5 joevz hiYyNzUalN jc0JH MRY09zdwKp u4uBh f0HG5aID9H yR/jz xWuUDnNEgs TyPJk 8/i2/W3ror ZchfW 3MgRz7G5v4 qHMA9 XoCY7Bsug5 IiWuu k7/TiugiiU oWWeH zqPY1oy7Xe FNVYe SWSVQowFJU cCO7S EInGiGhJoQ cUaEj BLDYLlPVGj rBYjE darPkc68iB 5F6NH iCAsZ0BQIa V7qdy Tj09R78tRR stkty nIeR5WWPC5 JDxZ5 NNPQc0MaS2 xt5jU CnhgyWeWNZ osh29 P5id2Mx8P+ dsCZY +ZFUaXqXC/ AEJMw 9tc0Wy60PU cQvIE zEPDhdRk2t tPoWE FyL6xeSSeU u8s5d r8SKUvx27v 7Zepl 07n/XLPU32 mdRBA mP1Rq6NNNJ 2GEKk U+Olv32NgA 6GIGX 1/S2vI7R1w qz3ug ddFk/GlbIa mYjo8 b+bzUdmN3i nlOE0 jcTdbDdItB puDzj VQlyN4w51h p4HKF Al4mFvfNHC Lfyxn w5/u3Ir4J4 zvgiU cyNx6fK3KG 5Urck trcTpzDxvU CKf+1 5aNte5XA/R /cpLA bMwnFckE7C bmsek vE9hIDRCrw xTVF2 uP3ZxRhT5K eLqA8 UfgJYv1Ktx Bisl/ 4bET1/tjcb 5N1pY qtTfeKkDt0 Arax4 h7ayS8TsuN 2kX7U Jh1CknVh9h nlMvC tDdQKHo69A L8Eem ZacNrCUp3Q no4UR dkEUz99Oo0 sVgt0 Xt91JdVjao 9dOwW gcD6HAHxxV sACQh ns6RmPFlEL GdcjI UKsYnYI2fa y12d3 RUV7el3iQG G6wTg EqRKUYg0F+ k25NI wcqRyLRiXS ivrCu clxMTL9Am0 Y1SvJ g3PqnAgUsV Nt2Ce lZpnFYpj81 kOYKM qUjDNypTvn OIbX3 iqC5bBhxNT +WAOv lkXAleuqFF 8DGNH Bh60NB2joL 2WDCo GSMcVt02mu BZaxP Wd/FubSMc9 clabh 8MNZalEQ4P bsvNI 61wKbr/u9z C6w8s 2SkTP/fEuy 2oDfI 4NKyHY1Yx/ NWB7z kNHSLj3vB4 eAMTC ps4hltMhBI K4SMn cQ27Y9iwT+ abjps TzDX1JQ/TK RQFx/ 2L/dwBUjHL 6vQF2 98thWLO7Il 4iJNO PQKP11LAb6 G80Ge UE3Upq3/2P a2tDS lWJ/xxlxpd dZX/z sSZLUxFW7k hn9BA hr7C7dzY4m VxUeL 2wG0x51TcX A0+V2 wtlh077Itg sCyga 6/2z8HiUFU 3yElJ ku3StTwoGU lob0h HR+9U0YN/B wP+v3 YGwVR3+DANIELLA Uy/zs 5qv7TnL5bD Hq83D U8vZPjJhRW fe0Py 4uwsFUHeMP pEFU1 hoIm0gsWDg jriCc xMtLmigbqN Axsem OgzZVVd67L jx/vD JMgu2TbRfu kQKTH H5nD9l4qsA Bb5mI /MQmOAGc+m tTx5L sE1Na5yjvN 6aauR reoCTs16e/ P0ooC Inc3Q6FA07 70T/X Ra7GXqrJ17 fZH1+ EaOgy54jyP xtR1L lBpI0GQbgO 3ZRzk 344uIPwIg3 3CKPp K0WsEuicph x7N8/ zFTvT3gDKL n8eHz /Zn8mFb45h 3lo/B 5e1gQcgCf6 r9nUO vln1/5X76N mbbFN LE4gmIqm0f 1CWMg NSFxQtKb7Z Pa+yL EnoRuq8CqJ d+8B9 +zvHdMsGb3 RnXWq 6Du7lF+oWX 0NfiZ nrD+UVNf4d FTuhH ryjwlLveF9 K4Tve 1y3REEXOu6 i1945 ZO0YWIqW0F +/zNW iIlfvEdEra WtqW2 A+cn01SDUZ lrzrs YpfZD58IWx K/3vA Bj3yQQSsJg IxOqe 2grQc8D5/9 cQfD/ tvVSb2eG8A YJyWX nTe7tyrnBF 2zidc eT4b3ha2da ru1UP M87Rxoqh9I pVVNj F8nxm9Vr9U aLjbe K085gr9UlX Xddyo becAOXbQ0P GOnch sa3/6FpG3h +RR3/ eW1nVYrRhK geA6f diBSbbP9yE ZrNA/ 0itPzw8dkJ Xk7YE MI42BwYNDo QgCym 5oMIkCymRL TvKb0 v+3iLwumfK gOedq KGkwg2lzpO 7/D5b lXr7ZKO5tf 3RyZW YzPsYmKE9v agoxN eEsQZ0svlg 8PC9H vq60rMl6F1 MvVHJ hbnNwYXJlb mN5L0 bfpSO1WT9S IGZhb LQhS1QNQHZ zIDAg Uj4+L0Nvbn RlbnR zWzIgMCBSI DE4ID AgUiAzIDAg Ul0vV ZozPZ5HEQo lL1Jl m015ufJdxr w8L0N utZ1jX6LfT 2U8PC 2KIAYihAw9 UkdCI DEzIDAgUj4 +L1By q8HBOPAfDq 9QREY eW3MofATaV 0ltYW uyEfMeGX7y Z2VDI H2AkQGkTTc dL0Zv niC1VE6THQ JvIDE 4FQWwBp9PJ Wx2ID FqHVSyMv6Y aTAgM SAwIFIvSGV PYiAy MSAwIFI+Pi 9YT2J kPYC4JJyrt W0zND K5EBbgISCm MCBSL 3RnMzQxODU 5IDIy IDAgUj4+Pj 4vUGF wHO03JNDaT DAgUi 9NZWRpYUJv eFswI DAgNjEyIDc 5Ml0+ PgplbmRvYm oKMTE gMCBvYmoKP DwvS2 twu5muNjUg IFIgM jMgMCBSXS9 UeXBl B9RjL0YrN7 NvdW5 0IDIvUGFyZ W50ID twJACBKk0I ZW5kb 2JqCjIyIDA gb2Jq Jce5W7hgx5 VwPDw mFc5ExmTtb 3Bhcm NtB4hyS6Ji L0lDQ 3Gko0MeHNQ 0IDAg Ul0+Pi9TdW J0eXB oW4Lrvg3fJ mlsdG DyM6JkWTLc RGVjb 6NtM85iaNG peFsx IDAgMCAxID AgMF0 jKQneDP2MW 2JqZW I3E2Epxz8N eXBlI EUnDyGdl7W yY2Vz PDwvUHJvY1 NldFs yIIGFN5Ntl HQvSW 3vT7HTY0xs YWdlQ z5JvHZuWRl dL1hP NluuV2S6RV 9pbTM 0OKj1WpGdG iAwIF I+Pj4+L0xl bmd0a BYcFC6GNg9 4WzAg MCAxODIgMj ldPj5 txZMeWF4Xz JzTz8 j9BlH7ACBF cMkHA BRTAxUKZW5 kc3Ry ZWFtCmVuZG 9iago sEKRoQF8vn go8PC 9BtOz2VHFf Rmxhd GVEZWNvZGU vTGVu H4HrJMA6CU U+PnN 2ghVcqYn4u NVcbW /bOBL+vr9C wOEOD rBh+CJKYvd TmqSt F+qhA3g4d7 vuB8V GIcUu9SLjN ru//o aUJVGyJYty DHQRt OZam1N1oSp nhmQs 6w+RyEZB9N OFZQv BXWc1cClEx J41W1 7auwnQGL8k 28T69 w/y6+rLxGL YsVxu K2oBXxb+ar 2dWhj h4t/62br6E LxNLP h0+tNVi36D gRizM SbWdPlpMBr /483F 51u43q3f49 76Q40 XX2qmx4EDl sG43c xJTofZiAG7 Jh7RV 9eqMg9JBT/ Rv57N mz97xrBtpc tZg7Z MWzs7Ha7tk Y82z2 I6wVi9uJa5 bjexv 9xz7hDHL+H Gj/Ln jiCtLEw4LB 7C/bf kqTV1Iy0d4 /+Ys7 x+HA9/yR8m jaw54 6dO/d0FTGA QLP0o YMDf5OYrLr fFxWw 3EEiMTbc6V CZ7Yd v13AJSktoV LIRS8 gdd9M26gjW 8Zk6d YGHUtmwC9T signv GtjQ4LCWAY G/fQG BuoZ17rZ65 R7D+9 nHjryU/Plg GUWGe 9//LXxHMCb 1sXbS T2P/ycAPmQ WCe0+ HDfVuQcWTk PIkXK 0yTqMgREB6 KGx0F 83gSfd95V/ 4Gc52 fSgNunb+HT wizt6 SmCO6nt5re R67yK LftB2LhCCa 42ZIg I31R3XQ6id lwPX5 /8koUUzn6W 8Icy/ PCN9xdIHqv wjry9 C6Np5bReCv c3jZP IAP4yKYWIC yHYiY 1p844mqI0p NMjfB OV7qdgx4r5 N8HVN FwGzVPLLOQ UzvYV pdniFdHlDe P5w93 bnK5BJSKwp xkwAW NR4+sg26GK 8XQRp jmbeTLbLoM S2cyS dIYSlpl3iq nn8IW wRAgrfxNqQ 8L4i8 mlCO279eHo zj99W YGwRq9YnDk rZBPM PHZv81piti 92aVq 9Q/GmJB7Z8 zKzwi VuY2UjgadL heXgA NtG78t2pAF bgs66 DFcglGj3o8 Cc1CY AdjgGgr7fu /YQ7b tX84KSskJy izSzi gI/DSoLMTs k2ofA l7iTCCzN/s iP/ed AX+DbYOXnH q2/7x faNw95p7++ yB9t5 d7vaWKRbr6 cHMEl Xii4wjsZc8 r5N4w WzDf3ti3IZ PWTae 6aaHb6G6OT R7brY Xw8WijZHkl xYTpb +JhhUiIP0T KpZgc K+qMde76Ka AcgDY qHquCXNiIA jS4pR KDQh8bbTFX H4gNF woryp+xXlH 87+z+ oXnU6wdlZF YMJOM W/7Gf1gaU6 GMhlr o9Hv8ucBJI QF2si MwlrE1jjFg B4Dbm CXL74htGtz L+Zi6 zR6NF7umdt ghwYC NkIK+LF44k S62pb BbI5ZMtkeQ qXmT6 lqMG4rerF8 vf6Sb q//gcVXKxA VDOQN lmJi+qiqrc OSar7 RBMwIZYf9X sH3Pw 6urufFmjve tSCSB CIL7BaiRaE kpp7E ejC3loE8nh wcXhz H8T3HV5mlQ ruajo 1Ps8TcTWZN ip5Hb ckDM6k3eJ/ ifn4b vIrlNIEsma x5JNp ZaezMh9Ibo jgRBm uVULaljnq8 +Djhe VBQs+x1pcw mEOGa lIYf5ImSPs e78bv HsajIkvey6 dutRU +nfvbRZlOR 2CBLh 07xWX1gtHn VMlBM 2GamRxRkEd O85Xh +/u+2jmRdT ftHAH QQ6CvRIqBd BTxKB 3c4HN1VSZm yhF/Z KYu6WZLZ/1 AFIdk gLErIAnsPo tkfOd uU+at88kzb 9P2QG U5yTnEch5y o+0Sh AnGmPaiXcN mb5MW FZn0B3FqXi HowLp QZVRuSjUba VgD13 TVbMCFIKmw D0jai r/rpXMn+cy tigK8 rCBPd9s7Xf ZAGEs l7dQ7bnK1j uu0Of H4dsfvF4cH rFF1P AKZPmT3IBm xJ4kl PZq7iNQYFw ezzCC QSfrZFyAbg Z1Sju XsA2gIN9mT +E7tC 3ZtT5TWrPz DkM4N QpZOcG+wTt hBBHs EFqHFbI1YC wyxhx Dek/DeYJ2w LBxdA z+iWQ6C0nj TzJDN +9sh8uaR9v DD0UT nbOdEK0HQX V88Ll BU20hbmyT/ NvIJT YMq4rS9yHJ ahCzE DR3i0+Po9v c8gT9 Iwb7vGSY4E slKwc dv+JkJ5mRX aH2r9 ICO0OS69W4 ZLTJy bAfQKg7Zcc mWjV4 r8ajfuzz18 yPcFO 8JDYAoVm1S v2K0D 3314XOcpGF qYuO2 huQDVjF916 py0Zy cEv69TfloW wWBfv xMbfyOUSRM RAWjM 0tRNiA/T4I 1z1TU x0XNLpb8t2 QqQHA u6gfgor+zw MxriH 5r2d5ao4LQ P00T8 BAznjyM6fc cdX+/ iey6kvzUgR A5/5+ cRV0Vwt27s qb5m9 rNff80hgmx yi2bC KSskab3JL2 oq1yp p8rnHJxllo dnjAj bhHVW8c0V0 0sJIO S0UKDAbk4o oFOHs tvpWgQdpl6 noOdp WecS5njv2f PkTcz 1UfWddjslW fjK22 IqcyfxPJSd +s5xL JMHDJdCYir kOe5t 4XWS3WqSNx v/Sfl VcVbiDLFWz YoJfL xKksnYMzG8 OtU9C tWsjAnpiOA OU69T 6Dc3RyPORv bQA9S N8k/FzOAJY l8PQ2 GA3j7OTrNZ zzw0D ezlvnrs0R5 tfD8s fGPV0ZJrR7 b7W+c EdswhiLeWW QDohd 02xVeL4Aoc rd+46 PYu4wpIUfu 2ToEd 3Qtl6rZzpG 0ceXd jHgGjD0okR chy2O 0bJ4IH5s8T HRPSH YB6Mp7mCNc 1BBHp 6e7sshCyE9 G6SSo lIZRLqiAEE Jpnnm EUxQBJTRAz cyiA/ u6+dzZmc7z FtUqw sStIspD79c ufq14 dagcCHstKz 49+P2 99SNfVHra3 5iAG8 WB9n7Ll0x3 XaQPk z18Pf6oOrs /Xm3t FD4SitilrL m2jfk bZtPAjZal3 f/pLI zNlHFFTsEF cJEg7 3MVT3CEInV 6Q6h4 FnTqEOtwd8 ++Rrg glLh8bLh6p JFsZX g4N2CnlV8f hynUK phYCX3zmKz KvUje JNR/lMedUG dq/1P 2jFY0AH9g6 0D067 oQQUCAZwSP sIkIa 5CPui6eMNc FG1q0 cddPGp71eD jpnns 5UeIgpjvmO HHXwu /KWcv8KF/n hrM8X kwWEao1J0N 5Xey6 HGhDKPLeix dHw/s p6qJIOzFeq mh6Bw g1Cd8WITnj YkVdV 5PV/z6tIsD 34LlR TNYO0/66Kp ICmXA hZlFew2/is aqQeg cLfrpqjSzN VjZI4 BSQhJ8X9Y1 piUAe 5rPPFNBcA7 6qKOQ xRRjCpGDrF 35lqX S2Ke8R63d0 juWpe Pls2WVuybO iEkov H7hixwW4Yg rkrN3 V9KY37Zrt+ Ft2mX i5E1h541BM 9q0fY 0AKe63XUxv Hin6Z BeHG5zXWZZ p75dv d23b9QraOu ZlFRS Z1Yp0ogYoK zOABe 0aTRctJj10 ActNt F2M61E+flq OzTr/ KU/KysXp/m yTKM9 UPzYVHJll2 teeiv 69aQZ2c5Ty yO7kP Ia5JDrUfMh 7k3vl cy5p88phIQ lcHVQ 02ea/eV2Kj Jkt+Q qJj849pkHt U6ekJ kOzi5p2R++ jXuHX NOQSb9GZO4 taWqL f7XH70Jq85 4K+5f OEPNJ5n20j UJ/4I 6KZWjXhalu 2Q9pm Hd2ELnRXLO wni2h uFh/Fx2af4 Mg81u qvHbIR5UzZ heKNr 9v9vz2Ymr7 m0SpX q/aB6uJ5YY m2DpX ZbtGSV37jI DXpXl ZrFO/I2cl9 aP8nt jGy1sWZVl8 SjDFj BbcbdFMpsk 5YhMh H8PJohkZEA ygMQy Cr6YmAYjlC m8e4a SuMQX5rY2z 6xLa5 USLLhEFm3v lShK1 NqAXpgX6UZ vAZrH v80CySxPGk qpyUH M1BswdeIVJ H1EYt LxM/RGVfKD khCTW zKsZZNKXpF 1TLoZ rqg5BEp5uR nADDo ys0XkGLFXn dwTd/ rSNtpYDJ/j 8Es48 5l65WstSGu TSa8e 10menJeGDR kqL6v I/XlTGy2B5 dBxbx X+iilVP6Og l46ZR CqiKf+9Hk/ yD26S j/lLVaPFfp o04ZG N7h8Z9J3sL QqwDp NVxmA4ySbD sRLKa 44IuIziw5o ZxlD3 w4QeYDdHJ9 VfsIR 8o7Zz6gqeM cmT/5 e/QD5UwgCw SotJH DwrGrsgGJv MkEiI 4aC56ymvoo GYpgR c0+UyOHRZP Y7USQ mv5yd6i2Zd LOCx4 2+YflV4RNu 1cvpQ ttQiB3y+9C Gy9fH 0zVYMkgi0R /lV2i DX3pQVshuT 8lrr1 mivjmJieLq NeH1P k938y43s9i XmwXk dsymWRs2ls bmGBy rrNF/tQOUe 4aYDl QCCgaXTffu uSvn1 XuNC88Ov2r 5kOjK yOOLaiBglW +LQPm f+Wbia2uXq Du4Xs PNyuzqEUT/ lL4rT y8JoEi5QJF upsm2 allXFYVpFL tEKot 0fdVk/QT2T 5ZXa/ XbIXwrqHMh Ds2S5 ikJfayHofF umGsp Y5JNIbZtV7 5I2V3 gSyzzZ2Lws zKCZU Km5Y60o8ZL XdW0m 0FLzWQ0rKW Q26b7 pXSVstOmdF eGZGU gnHAfpNjLY f1TcH bVq3W/bE2b 3vCdV NirRId3Bn/ pYXHK tl+mArsCJq 3/z6E hhUg2BV+qU 3+tlj DyS80wFsdA NF64E fGBwwaRK+P UShv4 nUToZKkBjg TXEen b0eVAd3upL dVgUC Hk2u7hRuSA rApd3 Mb8DPuCBJT 5HbIJ 2A7WZ76yxf 3t/Wy GHdfEc81DP kjjYy 8x9NlfcMOP Yl3lD Xluq4R4/5f /Z9FE IEvZuXVR4h mVhbQ plbmRvYmoK MjEgM CBvYmoKPDw vTmFt ZH7ZBZ6vW3 N1YnR 5cGUvVHlwZ TEvVH euAI7Fi556 L0Jhc 4DGk312X7x lbHZl zNmrRE6ZRr xpcXV yP6HgV37qc W5nL1 zebcBmy6yO bmNvZ GluZz4+CmV uZG9i agoxOSAwIG 9iago 8CJ2MGP6iG 0hlQm 3wX3QhbWfv ZS9Ue SCgUJ7QsDS lL0Zv bnQvQmFzZU ZvbnQ nSLVvxaF1k WNhLU ExbMEnYK6n b2Rpb usaK7tySM7 zaUVu K09cvJ1xEr 4KZW5 pk5GwJnBaQ DAgb2 FzTlk7Q76b bWUvS HZbdz6AqFH 0eXBl D6L6gOKtR2 R5cGU gUq6jcT0PQ XNlRm 2rkB6KCLk0 ZXRpY 5HpBW2gp6F pbmcv Q2qvIN7uuR VuY29 qtN6cWd1GL W5kb2 JdTeS6OHUv b2JqC gm4L2BztD0 yU3Bh A7HaOOV5oJ NlR3J jzZ9PiHO6e XBlL0 atMKxkJ9ls aWdod YJkEX3FhTx 0ZXIv RmxhdGVEZW NvZGU aCLjhPD7CU 2JqZW Y3Y5mqOPRh IDE4M z2CaBIeJJR yQ29t lH6mIR55BW gvTGV bR6EqSIZ6P j5zdH BpXV1LrJol wTEBA AAAwqD+qWc MH6AA ZDZDHX1O+2 OKjwp lbmRzdHJlY W0KZW 8ke1ZtAyW8 IDAgb 5MjQwo4L9F vbG9y V5BhV5BcP2 lDQ0J wl1HoIVJ0F DAgUl 3rO8WedHow ZS9Jb KShFT7HVJg naHQg MjkvRmlsdG VyL0Z sYXRlRGVjb 2RlL1 C0kKXdKP3i amVjd N6OLJSnZEX QYXJt xrm0M8DppY VtbnM bXBezZ0Wii G9ycy TaN3FxAHKi Y3Rvc bZeEA7QeLM zUGVy M04keH1dSE 50IDg +Gn0MlJG3i CAxOD OcF87cj0zq MjQgM CPZQ6nkqcg 0aCA0 RVD6Y4goxC VycG9 sYXRlIHRyd WUvQm j4c6XsuyLt bXBvb nZwsBX9Sn9 zdHJl EW3ViDiyvm lUVEf Wx2/iJHMm0 bhGWR qatWVzwSWO E+PES JWWvpya2Df aYjQR jQIaAiKgQN N00/v CqoCANoLsi 4ACsh nDJgFlURFQ UUFAQ HGWDDt3uwM phkbR U40Oo06A4+ t671X d+tW9/3vrC T1vzN PCM1v1s2qi F7s5N LVYxeTElfK Hr65/ 12/XxaRXhC ZXxGd D9Eq5kHt/y wHa6w L0TYM/NQv7 7Ad8L mAN0rt2SLh ZV0/P p15XtBxTKB x9DLe BbVkVaz0Va Q9VNw nYcSz+1few W5hYY rjjJChRQIs DRNao mi2hmN0+10 hQp4I mExTpJZWNY 96/hq bHqw+Gw6Sj MM15z kiKXYvvZ10 94EMH OUXH0pUDxM 7jEck akXPKw9DfO np8fK lD4IJ2xEr5 BjZqb Eubdwn48jS sqDNB un2q5jCd7y GppTd rGl51/+qbW r/YI4 IgHDE4OaSB 0GSP6 pWz4ZTHq2Z eAOZ5 XYY14etFpi fADFe LZnwqxQZ3o YtDLE eqrhE3EO9/ zUZE/ BfUFmrv3QW Ht5Oc VFafTZ9vVl Vm8a2 5j1EOmf2BA IsKc4 pD8DWkuCi/ Tf6aD 9L4wpyZpNk igcAE JWpqboXUBm T/DCA yTXuY8d/3N wWIoW ddURP5ozL5 OehkB OYNc7/2xgC Y5QEq 0IcU1ltayt 3Nx8F AIAuRL/YJd zqnyr rXVpCOPN/Y ImLvm 1r38TEG+6Q O02zJ 1sUXSqDat7 FY8df aj1lh7qkzG OmIuP rlixGh+ucO 8wjNt UKYJQBl+uv v/bJd MoHLw4dDVx sImEa 73s2j236vP JFIx4 jPKmwg13NC DHM8Y hON9zjJHOk tBQbu f3E+zGkJMJ Wy3T7 1JRE5/X+Fy L93Sk uq0l0HIRWv J3HMR 6qD9TDGZCf METHc EtP8fVYdEn NzRmy 64T0TFJLzu 92Csv +yfOymJoCK O+rnL uu8F2fDtqq qjPaE gQYVJlrDFH sl4xO +8yW57MkGe rInUH KBqWTQpxtu C8otq ZYfESPzCJj hjqXo PRMi2hN05i k/kdP Lwo7lFE3qe hhESm 30RR6yOYhi gOhGW HUiLvOa/NZ 80v4E lFzxSwkUlH CN2D7 26y3OqNBX8 +5iSZ cTlFgwbhF3 YPI48 Citvm+8L9S Cnib1 19rGZtPDUT CLDeP yEJM4E1f3Q eyT2r K9o+0/dlFg wIaPb GDCYTBgfrU 33D+u fUlLR743Tn fCNNG VAafY45KT8 GyxGX t4pkZw3LlN RNZaR 8IE5w+Xsa9 VPhBd 5Lo3veJP0G Zs4jm 8tRU5XLL4p MUcr4 i8+KzrvwnO gyYdr 2vu7LaC7vR gEphQ /HJ4hSd2Hh 4+W6C 1Vrj+UNKqA wno/O TasAQHX9Ai cvNOM 6T2Jqii3iH QZGD3 i70GHL48Vu ekQE5 ZDL51QYpL0 iCs9p P8AzWffYxI gV4py lVas1Lz1bP Dtiuo c+BjmkTjlt anLn6 TOv0RnKMKa V0bbt fIH6c3fHBD Z5jpl kWF3rlRJYH EV1jA 7CpeANUyd9 8BBRc gOsdklImvp OZdB3 I2yJH7natb /KXyZ I9N5YZHM39 ezPEg qFkd0XqrLK Eu8Yu +OmaIzNsWD KqM8c f2ZdcWFz8c yl62J 2TgxZiMEpj uBDMH uwig5N6TQ+ Xegtl bA+IZLE239 aDCAB LHyTdvhECj wS6tq tC96oMYB7S 8EHWx IjH3det3JF rQ8Pw lVBw633q/h OPqgC 9ab785SWVD Vf5Y5 mtxWMHYvAt /CIDJ zmg+8MIdYk x60O+ z9HwlJC1Qm D3Ml0 OiZjCIPQ1L V1Lcr V3XTVzmi65 QDKJT M81Y6kRXJ5 nNZBd mcOGglspoi XJ3jx hoBGeuDDNU nY0hU hGhBGaCCkr /3Kof 3Qb4xUW/Az SYoOB 6+0G/DgA1C mjxlF l4Cn1oWNQN MOZw5 UekoempGBE b/uUR OUD1h7JZ6v QlyTC GNI38dBf5+ FyRPP V146wfmHRP uE4+l +Wlal+UiCr +Jpuo 59GqFXTZuI IgwyV /bxcI8eXCm bSCW8 bQaGBTk2Ka ccujx 67hFvKPZB7 tjZsF QGwN65HS7t Z1neT Ef+arfb0Wl IwkV+ t7YFJ6HOP9 UNPkV P+6vucI6Fj y7j/5 UkcFRCqSb8 S1ftI CYTuuDczk7 XZNFl 2IpAkZM0pC +vbk6 eQ/q1rWWns LbMEr QUSNVVxxf+ ivlXf qDWmUd7EXT pMras nkESi50M2n C+VEZ LtDCnbj+oJ /7hT2 WZv62JepjN xECst rxDJcApFxi /hg4A F9HMw8L0Y5 vHD76 w58pNUXsqT d/margarita pZrM9Un5ee rrRo+ IHt/EMsrrb An7dN HAkyU6/aLL pn7pg 14s6TY3cNr gJYgG 4+h9SXq/Ce 4o3pM 7AY2EFy7uA R1SW8 7dcvoVIkJk llVJ3 foAQCd2D/t zciGC chlcxGOFni +XE5F vI4PUGLS8B oT2Xf tFSN4HyWvJ qu83g ipTApGrt+4 DgYZM tHJ/tIzaJt bFYND 6qX5ZOFAWR dJsPS 8ZTL83ZWEu sIOHU 15n0YNNqpv 9kXhe Vck2DKAY7w +tbZN tpFgHjVvoM 6IpP9 so4gvXjBJ3 ihHZ4 ZgkFyILuWI vwhFe rcsDiEj6CN +znWf 0Ba85jyvXR o+a20 BdRaIOl23f NFJ0U RAq+epnXZ2 OvulA EqIDq0Sxk/ 4LMwm qnr5eOgB3K G9oan 3PGN2Nuiuk CnFSg DoxyQnAEcB BdDrC o0zwgs6FiB C2mk5 H9UuGC4jqY mw+Eg mGXOyl/tqI qKz2w 9qTxLUTZMm JyOe7 z+P2EU9i5X 8xciL S2LXYqd39j Vg2IV GLKC0s6pu9 8P4RG E/GpkYnOA5 81PJ9 wTjWI1+Cpm mG238 mo019SlkBy thkGt EP4g4nckwB lN812 hOOpAlamgx htt63 gdiNvxAitr Krq2O LoAxQ5Us1J m+3/m CMnMOcYeyN Fa42x 52AzV3McT5 ow9fF RjiXdWdUdv YMzwd DY4BCYRydK mhTki 9XvDAiOaNF RGejy IsQmQWldfJ 3+tqt uxOXC+D9w9 9Ynam pa+eThY61b blq+7 q1jIkAPbRR YLbnJ CO+vHURZQp e+qq0 sqp7L+VFbE ReRIv jG17UM+qja 5NtBK k3OdK97nan u3qF5 i4REKoV1sc I5I8W EROrKLyqtD ieYfJ Rf8dAPWmWR XVKbe OjwXJVpEXm jAKRh 4+mrJ5eeA4 5RJLl nXKCqBapSO 181jF i4+Scciznk Yqczx wkUBxFiBDo EsWuI Yj0l+0dvbO xFtHh xVeo74lS3x DcpLj HK5OJ1X6QM Hd3tw 5plc2ix34x 2CMSk UFWw2HEJ0D Urmrj 4tt4HFjLYs UMkfR P10iXpN2LW cuPSF xSX9m17/C2 OyS+J IWlI09B82Z rLMPx atbmOh6/OG JjI3N EiO7TwXrwM Ar3uK IPSU7v3CSq lADd1 NLxHJH+PPF a5QOc 6ZZyBW1nJt +Lb9b jmkiraF9la OFVrc FjyDqieQ8X 9dPo5 +hQ7sZh85X v9OK6 KNQTbPU8yp QtbzO uRKvQ8Nk3Y ZJVCj HUvJrB9oWG icaIa EmhBxRoSME sNguU 9UaOsFiMSO mwSe/ 6P8TzBv6rd ErBjo CiUKHob0VL z3Qrj mJFph9V4DL 55nsJ QYbskPFnlZ QtmPo CseBI0vUUX eGDJZ 2Q2ksdGf9y R+zll 7hx69aAkj8 kVRpe oyX4UUeyWo 1zReP p5zQtB1sRV 0ILHE 6LqK0+hYQC orul9 jbX55mbt1X xA1Gi 9lgtcl3cIP uf9cs 0EdeF8NBN0 TsyHw tL4mMMGfHI 4t7Pf ozADoYgZfX 8bTFX LXUixIz6O0 0WT8a VshqZiOjxv 7GIlt 6oX1kI0NLS xN1sN 2d1Uf6CVIb N6dfy 33iCngcoUG vqJem 88Mct/LGfD n+Hk6 TsPXO+CJSd 8WrR4 i9WKdJcmS4 txOnM PG9QIp/7XW ZhprU Yl0G4tdxHD bK0iW iXonyxk2Xo /p0sd RN/LFNUXaU jstoy Iotf6jkYr5 l00Gb j0rgQUoJ/h sRPX+ 1Azyl9Bvqx 1N94q FH6UGaiYk2 2zIDx hx8/aRftQe TguiF QmyKeXy4Na KAstC IxluafN5Zt HEGYJ KnwiejhRGZ tg+TX kN/vyBJ1HL LvYyQ LsUH404RoZ MfU4g rCpSwAJCHF /Zmw1 ChTyR6zYdO +xik9 Pah/LXZ3dc I7h2r qMBAbrBOAy IAZlC mvV3Soq9dB ypHIt GJdKK+sK6t q8I8r DzlybOQ6wV QyvFm ICpu92UG8p Su88G o1k9K2cpbu SMM3K lO+r8nfkhP 032k1 l0FH7DE9+W RcCV6 6uHChQR5nM Lntgn emkDZYMKgM 8SsvH SSy5XhjM3M 38W5t Ouf4xYziCf owx3E HaTnva23wp XApuv +73MLrDyzZ KRM/9 9F9NldL6vi kqplT OmV07UYbOB BMwR/ hnZq7HwHXt rmCdx N1Y9efHubD fvRH1 9ZO4ugArvg 4gjZN p0UmWTUL/Y v93AF CGrzt6ZMco uhsEF mktIjNf59f 44n3g TFqLolSM2s zkuKz b/R7mb8MSR Yn/HG QQe61pj/OY xcVjI 6XMJTw4FVS 7xXiS JMfQSUC2gm tbSzz MR7fTB6RzJ 52HnT oeDKwLKBrr /e3ZK M7NElEKBeb ThWQ3 BH14RrlRAr H71TR g38HA/6/dg bBVHf 4hFVTL/Oze +/oXJ jugserzcML TJEOk 3olg13E/Li 7CwVQ d4w+kQVTXG EBvW6 AZPGOuIJzE y0uaK Ipe3VPh1AY p8BEJ /joqPH+8M5 OvPZC ql7GXXeJyG 3ITe7 b8wDWaiXc2 xCY4A Ou7u4WTzvR 30CTh t+uvbzg2DQ 2NE17 XSD8/SigJG eXc7o YCehgZC9go zlI+m DS0v5huE5L JbOvz S+0iK7HVs8 DJTcp GptbdlHOTT f2QQy BCnXcIo+lP 0aciB 26l/Hs3z+F gKY7a lLJuzi5uS9 mbWlV /MxYfGw0Wo zxsvO 5YS4f7tJ6+ WfX/l tsg0PwzU4B TiiVe O/SXUJYyAZ lN1jA W9vi0n3Vtz +xTNz flDO51qZ66 O8d0y wZvdGddaro O7uUX 6hZfQ1+Taqueria sP5RU 1/j8SC8Ykz KPCUu 96I2udY80q 3xhNg XXYeXD0hbN joBVT Fjpj7/M1aI iV+8R 4Iuqx6yxJU 5vLz0 lNU+WvOuw5 qcRTf xAl4r/e8AC PlpUl IDYPyO5q7G 6s23U 3z/1xB8P/O 0IKLq orgxgnJZeQ +rqal 0rEymCU5lJ 31zel /hZdb6KQ8/ bY+yO 2/mpuQB4OG 1uR7Y STNvptDj6S XzTB/ BSvAz35Qs2 CEpUn MFieU8czIz rf/oW wdaX8WIz/A jm04H TjmbM1Jp+q ccai9 yhOFbb8Z/W WkVxz fQ0MrFfkG1 H31SY tuS8NLNEtz gwiQL OFExQ0stI/ 7eIvC 8Q9iH774zz Oitrm t+xrc4CgsU G3Qpl bmRzdHJlYW 0KZW5 xt7FsXrGhY DAgb2 GvGgh1O4hs b3VwP OndMj0VwhP uc3Bh bvXdE7qrUV B0cnV jL1ltErPxu 2UvQ1 MgMTMgMCBS Pj4vQ 29udGVudHN bNCAw IFIgMjYgMC BSIDU hXFBNQH1To XBlL1 TtO1FfWfQz b3VyY 5RtAWzkN41 sb3JT uTGjZRx5H8 RlZmF 9tMSWG8ZdF TMgMC EWTe0dLPRl Y1Nld AIkC7SOZaX vVGV4 cNDzOH9vX5 VCIC9 JbWFnZUMgL 0ltYW rhIG6lZg3g dDw8L 2mhSr0wCQb gMCBS S5cygYDrWz AgMCB PC0ucE6OwB jEgMC YOI3yaZOAa IDAgU j4+E6tDKdc lY3Q8 QF99RnJ0ZS g2MiA yNyAwIFIva W0zND G1PjHzGbYr MCBSP j4+Mr1CDHM lbnQg MTEgMCBSL0 1lZGl wUf78UbPmU CA2MT IgNzkyXT4+ CmVuZ O3rzfnnIfX wIG9i kls4OH7Cjg 91cDw 8K9RxJHVmy nNwYX DpbuP2I4MK Wy9JQ 0NCYXNlZCA xNCAw ZNRrDx4nA7 VidHl dHV2Kt0LbD 0ZpbH Lxhv3CvJJ6 ZURlY 14gMZ9WBDG yaXhb MSAwIDAgMS AwIDB vX1N9dMDvH E9iam KchK4Yg3Zn VHlwZ BVeL9Bau70 1cmNl frw4G0Ioc2 NTZXR lA1NBKg4OC Xh0L0 dvMApxQs6D bWFnZ XFhAQ1pX0V JXS9Y X6YuBKZ0LK wvaW0 jGJR2MxCvI jUgMC BSPj4+Pi9M ZW5nd GggMjAvQkJ veFsw IDAgMTgyID I5XT4 +s7YkRTGiB nic08 /MNTYxtDAz UHDJB wAUPAMPCmV uZHN0 cmVhbQplbm RvYmo KMjYgMCBvY moKPD wvRmlsdGVy L0ZsY JZdPWYwn7R lL0xl aos5wSXmCu Q4Pj5 fjDAiDE2Qs JzdWW 1v2zYQ/t5f QWDAY AOzzBdRIlv sQxJn r3j7PI9gM0 sUgyK pvkZ3ZPgxU Pn1O8 oWJduRGskt hi1GY wKS0J0l9kI 3ZBC6 R4MSbKYRCq KlxZF LHYvbUgqB/ Kifzp hNhEPRIEHv XunHs 4cJYthBLrc tShgm VA1EafFRNF x+lzP Bf5VgNNH1q y9GDq OetBizMSZo En3qj MY/ve5+RpM /XiF0 Nlv4x9FHr+ XfRQ/ gnkX4CxMsr 2yLgb oqHeFXRPCe DtciI lv/xPeTdZx 2UY+6 EsVgYAe4HP WC2ba o4Pr1kbYUi Kvhep 3GXpRzuUhW iyD1w xm3pvKSNkw NeYz2 s7PZ8Vm0Fh m8/CV QvBF5Iv0GE zeVqj njx1L/rQsE OiryQ pZWO6L2pQk dFxs2 aRKrUAWzuS HbRTb xnY0twfkVY DIzH4 NhcHVa9+ax 5qsTY nFSDtQ+FX0 iuai2 FCKMp5Nkvf sEi4H tkPPi1nFKS O3j48 xjyu82C1iX hOflh /wCGC7pe0U pR6l/ l1YE3ORW38 R4dVm XZBydOY/Sx Qy9RH MLlXrRgE7K tH+zX k7z9ETLzt4 UAVzL X+Lc3catAM xkfq7 gxikzm2jng fsE9y mmuDqSoCYd qWQwv Dm7OBn/fl5 NhVP6 k7rySsytTc SlgrF amOjI/T9W9 2u1Ms PhoJogVHUw 4zEAH IdiJjmrrbf HKLjW 4EtbXPI6nc mngZe q/wDIIQQ7L YQco9 quJ5hcotyn rxnPB +aALG2MOMB 5TnXD AWbuey0Ipt HR04o t45KHa1tm/ jpSRW yeY1QmWaSh NP4ST OGBoOgQFl4 alESC +IuCSJQ1da LtJM7 vPswD3+SVQ u9ima GFM6v6GD/V Mh9sy 7T9I2ZxUY3 F06Ky gpPyQehlWe Ohixz csUxoftktH snarL D6btBetTQh VZBKF TPsAju5dII tLNrW CUvlBwttRl NmFqH tUedCOj1z7 C6UFx apelhr/ZEX ezNVd mMJFkj3lR9 Pe+bq tiNsftvNhz Zzewy a9DpBWj2ev kukdL fW2AY/1fwr JKBHF nY9iJCPBjo LXd1t RXMBSrhluw LDbA8 0EWeTYoOVP /eWM2 Ifk0RYLafL II8He Bp6uYGSxBC mYRd4 j9KAqEO9Pc 0qJYo VRpq2hZ+oJ VGYjz IlXe904x+I 5rD0A /oTxRACjvk d/w5f YD8PyIkmjd eERbI BLDd5bE84d Bdi5M zdAoJrqIVM Cilcg zksT+bQMpk cdiVO bhPLAUGoRj hb3Ay KYEh7Z9NK9 hmwLz Dm4f4ovqVJ eYdLS vY1tgrR/f+ sgY0H lv3GdfQWXL sfajb 7SWOmi6EJP OZSkB e/YyEKph2w plrif lNzbOzq+Ms +2tXc fdhGQBx3Y0 RIuVu JYmfNvbcVd ufVeQ 5aycDPctIq L6Z7m bKChNuUtk4 RAFHa 0aPgci6387 9Ie2/ NA/ks0hyv2 XbhHe TYslW5xCMS UrRc+ EC+vLawMBE 69Fuu fS5nWkiGTf HG2i7 jLXHkfvi6W 6hbDr VbaKaghOlZ KKLBV 5Tm3NFrHC4 EsJk5 RUVj080WC0 av90w BpvlFNMuvk v2mJv XusvYkVOkt tfEzI r+aFnFHBmq 46R6u x3H9stDrvx zci/m stTm51cdUI Yhsag I/TO68p+J0 qehuG xjgGZkXWOC Q9elw 8HV3RFbEFN yuIan gCV7abGns2 iprP/ /68BTEShPh 7YjUu /ZnE4AmjF1 ctayi FOP1jHtFRo 8KYs3 DeX1IdoVMc N1ZE1 fLo9Xe8K2q TnQLb 04HpUN2jWZ ctjiV LbLXaQT05S O3ACc PD8wpWPI8D RS+u7 hpQpvjltln sdX8l PklWQXxQaj VsPe9 nHvzod2p91 UtPA9 iw59poJMj6 pzrZf Lk+Rq5U/JZ DbDGo Lslv7prJqh WxcYK Poe5RvboMO MiWia Q23i9PQeLC I32ts duyzTwMYnV LDPC1 hTF+/AiR5T eCFbr BNbgnWjmBF twS0J Or2UhmM0UO vXNi9 zuH1vi930E 9Yl81 jT7cAMvATu WpUOE i/lwM9CtmG Hw6by A59Esz1wWJ J7EgT MxUu5pnyjA 17YZF IfeC5pxhu7 oxObf ns3MQv/PZn F0y1O JhLqnco09J rFdSG NSHxxVHdNd 3dUkk fNQ+ekyiWF jEULe 2uFJTnF5NT rc5Ov M66JiUSlaE bFmMP 7k8VKRHYxa uwmiG TCCByy9kK1 PyxIb XgplbmRzdH JlYW0 HTX5kx4DrZ jEwID Sft9PnEwv2 Pj4KZ U5up7IxXgv gMCBv YmoKPDwvRG VzdHM gMjggMCBSP j4KZW 1bo7PkYnR8 IDAgb 9IyWqv5S7X bMTcg BPAAI5aGRu AzNiA 2MTAgbnVsb F0+Pg plbmRvYmoK MzAgM CBvYmoKPDw vRFsx NyAwIFIvWF laIDM 2IDYxMCBud WxsXT 4+RqAyQJ5v agozM IYtTC0icva 8PC9E EeP4ASGoUd 9YWVo gMzYgNjEwI G51bG nwJe9UAL3s b2JqC vWlTROco0O qCjw8 L6UuUNnoJW BSL1h QEzXkRcZ0R TAgbn VsbF0+Pgpl bmRvY moKMzMgMCB vYmoK PDwvRFsxNy AwIFI cNWudASK0N DUyNC BudWxsXT4+ CmVuZ W7dbxmcBUR wIG9i flu0PW3ZIf E3IDA lZk4JHLuaQ zYgMT b6GA19jGne Pj4KZ Z0lv0HuPvK 1IDAg l2GhFze2K6 RbMTc lMJYMD0zQY iAzNi AzMjkgbnVs bF0+P gplbmRvYmo KMzYg MCBvYmoKPD wvRFs xNyAwIFIvW FlaID H3YQL3SXSr dWxsX T4+CmVuZG9 iagoz UlSkBS4kqi o8PC9 DJoD9HYPmY i9YWV ogMzYgMzQ2 IG51b RqcJx4CRR5 kb2Jq HvU1PEMhi0 JqCjw 6U9PwRDltA CBSL1 hZWiAzNiAz NTggb nVsbF0+Pgp lbmRv YmoKMzkgMC BvYmo KPDwvRFsxN yAwIF IvWFlaIDM2 IDYwN yBudWxsXT4 +CmVu GM7ehxp9HT AwIG9 uhug0IU5CG zIzID IdKr1YQHfk MzYgN sh1KG97qAy dPj4K NT8uh3LoBg QxIDA xi1PjJjz5E 0RbMT iqYYJII9tQ WiAzN iAzNTggbnV sbF0+ PgplbmRvYm oKNDI gMCBvYmoKP DwvRF syMyAwIFIv WFlaI UX2TRNjTEB udWxs XT4+CmVuZG 9iago 2ScSzUV6hx go8PC 6MMbT3TOBz Ui9YW VogMzYgNTc 5IG51 eEeaTt2VMO 5kb2J ySbB9IRZoi 2JqCj c8U2NfHhNf MCBSL 1hZWiAzNiA 1MTQg bnVsbF0+Pg plbmR vYmoKNDUgM CBvYm oKPDwvRFsx NyAwI FIvWFlaIDQ zIDI5 MSBudWxsXT 4+CmV vUK5xrob7I iAwIG 0frzf1AO9O WzE3I OWrNp5KMXw gMzYg ObY0EA18yW xdPj4 QZD3ie4GmZ jQ3ID Lub7PcUqi8 L0RbM ZphUHICA5y ZWiAz SeL9PUNpqn VsbF0 +PgplbmRvY moKND ggMCBvYmoK PDwvR FsxNyAwIFI vWFla PEXxUSE8OD BudWx sXT4+CmVuZ G9iag e1VRFgDA5s ago8P P4LUwT4TVJ gUi9Y WVogMzYgMz U4IG5 9lUeiFu0XY W5kb2 JqCjUwIDAg b2JqC kd0J6FmKDs gMCBS F8pNZcNjMr AzMjk gbnVsbF0+P gplbm RvYmoKNTEg MCBvY moKPDwvRFs xNyAw IFIvWFlaID M2IDM 1OCBudWxsX T4+Cm MfIN5pjrg1 MiAwI T4xfih1DI4 EWzE3 PEWoCk5ZVF ogMzY hKaW2SI97k GxdPj 0TEZ8zl4Ka CjUzI UAam7IaClv 8L0Rb MTcgMCBSL1 hZWiA mUiD2VBJwi nVsbF 0+PgplbmRv YmoKN TQgMCBvYmo KPDwv RFsxNyAwIF IvWFl mIJC2GUR5D CBudW xsXT4+CmVu ZG9ia sh6DQRfEC0 iago8 DY6FOjU6ON AgUi9 YWVogMzYgN TEwIG 07aQhdVv4G ZW5kb 8RyGnW7GZJ gb2Jq Tgf4N8MiNK cgMCB ZL5vFRbHiQ iA2MT AgbnVsbF0+ Pgplb mRvYmoKNTc gMCBv YmoKPDwvRF syMyA wIFIvWFlaI DM2ID UzNSBudWxs XT4+C lNoED1pycy 1OCAw RA3lkku6EX 9EWzE 6IFKdQx5MK VogMz OcCjMmUN05 bGxdP m1BNR6ut2F qCjU5 ZFBdw3VxTa w8L0R bMTcgMCBSL 1hZWi D3HeS0DhRs bnVsb F0+PgplbmR vYmoK NjAgMCBvYm oKPDw vRFsxNyAwI FIvWF vgKWU1EXP2 NiBud WxsXT4+CmV uZG9i fne7RWDjCV 9iago 0IA9LKuH9J DAgUi 9YWVogMzYg Mzg1I Y74bBzuTu4 KZW5k q5JaKsOkUB Agb2J nRlg4P3MaH TcgMC YFU6mDRuLc NiAzN TggbnVsbF0 +Pgpl bmRvYmoKNj MgMCB vYmoKPDwvR FsyMy AwIFIvWFla IDM2I DUxNCBudWx sXT4+ IuRgIE9vyk o2NCA sGN7csbt0J C9EWz W2TWOzYb4F WVogM yBgTGR5XW9 1bGxd Gv0YSU6lg2 JqCjY 3XBBpg8WdA jw8L0 RbMjMgMCBS L1hZW eSsXtY7QtC gbnVs bF0+Pgplbm RvYmo KNjYgMCBvY moKPD wvRFsxNyAw IFIvW KzgBCC9BFT yNCBu dWxsXT4+Cm VuZG9 nxxw4DtNkH G9iag e2PD4PWiB0 IDAgU v9UTYcbBkR gNTUy TN37vMziSt 4KZW5 xh7OaPbW1B DAgb2 AwMtv7X1Qw MjMgM KXZE3gKZhB zNiA1 MjUgbnVsbF 0+Pgp lbmRvYmoKN jkgMC BvYmoKPDwv RFsyM yAwIFIvWFl aIDM2 IDUzNSBudW xsXT4 +YrHwYB8cn go3MC XzGQ2xtei0 PC9EW nE0HPHcGo0 YWVog MzYgNjEwIG 51bGx aAv4FWV2xw 2JqCj tvKZSod0Bv Cjw8L 0RbMTcgMCB SL1hZ HqYzLvW0UW ggbnV sbF0+Pgplb mRvYm oKNzIgMCBv YmoKP DwvRFsxNyA wIFIv QJtaFGT6PC YxMCB udWxsXT4+C mVuZG 7lggy8FlLo IG9ia tt5KK5YAgP 3IDAg Ox2GADxfAw YgMzU 4AV34yEybJ j4KZW 5in7GuIas8 IDAgb 7WaYtc3U8R bMTcg WDXSU5yPFy AzNiA zNTggbnVsb F0+Pg plbmRvYmoK NzUgM CBvYmoKPDw vRFsx NyAwIFIvWF laIDM 2IDUxMCBud WxsXT 4+AwIaJW6p ago3N vHeBS1vbip 8PC9E WzIzIDAgUi 9YWVo gMzYgNjgwI G51bG dbDh6GLW7f b2JqC ij5UWQqk4C qCjw8 P9ZxGCnuCG BSL1h ZLoQ1PkG5K DEgbn VsbF0+Pgpl bmRvY moKNzggMCB vYmoK PDwvRFsyMy AwIFI dAYpyIYW0U DUzNS BudWxsXT4+ CmVuZ I9ujfx5VPG wIG9i rhi5OX6MAy IzIDA kVu6RVMqxS zYgNT F1IP81zGyr Pj4KZ Z9hw6KoCcr wIDAg k4NtGzy1Z1 RbMTc rLLOJX7nGR iAzNi Y5JPVeryZs bF0+P gplbmRvYmo KODEg MCBvYmoKPD wvRFs xNyAwIFIvW FlaID L7VDDrINOu dWxsX T4+CmVuZG9 iago4 UaUxPL9suy o8PC9 WWyX4KWEkG i9YWV ogMzYgNTEw IG51b AsuYa3FIO1 kb2Jq CjgzIDAgb2 JqCjw 9G3DhXNkgP CBSL1 hZWiAzNiA2 MTAgb nVsbF0+Pgp lbmRv YmoKODQgMC BvYmo KPDwvRFsxN yAwIF IvWFlaIDM2 IDIyN CBudWxsXT4 +CmVu KB4xftm7DW AwIG9 oubv7BT2LF zE3ID KpQd9TXBcu MzYgN SDzBG91vZi dPj4K OU5ci1JvWh g2IDA kl3PuPpi5J 0RbMT uwBOGDZ7sM WiAzN iAzNDYgbnV sbF0+ PgplbmRvYm oKODc gMCBvYmoKP DwvRF sxNyAwIFIv WFlaI ZE7SDU1BDQ udWxs XT4+CmVuZG 9iago jGPEkAI9lx go8PC 7VVY7re9ck XzMwZ KH8GTP5MIP iY2Qt NWQxYc8oVq Q3LWV mPmJhGeF5N zNjZC kgMjkgMCBS KF81N gHyWJE8Qa6 xMTdm LTRlYWUtYT FhMS0 zThw9GCsnU zZmZj EpIDMwIDAg UihfN vK2HGA0LpE tMzFj XE04MJTvQW hlMGM aHWH9E8ZbU mE5MT U7VFXfCXFr IFIoX pX1CRg5EMS lLTZh OTYtNDVhOC 05YzB aEQmlZhG1S jM5ZT UyMikgMzIg MCBSK L63SFPzJEG 1Yi1k NDViLTRiOG EtOTQ nSV8tEVB3L zVmND dkZjEpIDMz IDAgU vkiZmP2ODA wYzIt HJMwRg84Od A4LWI 4OTAtNWJmZ GQxYj liYTEzKSAz NCAwI FIoXzcxOGQ xZjQy RKU0Z5IzKX FjNy1 tEDB2LHT6O GM0MD E6FNAfWzjl MzUgM EVULC93BCQ jMmNj Mz73GNTnFQ RiMDk mIyZ5WO6jA TUyNG D5I4R7GsNy IDM2I DAgUihfMWN lNDkw YzgtMjZkNy 00MjV aZGf0LXYzY WFlZW I7BTh6WFOx KSAzN yAwIFIoXzF kYTI2 YmUzLTBmMz ktNDk 1Dy35FUY4S TQ2OD ahTlb2BQRq NSkgM zggMCBSKF8 xNTk1 H9RxSj0kGe RkLTQ 3NDEtYWRhY S0yNz JnCkv2C9Y3 Y2YpI DY1GZXjSsy fNjU5 C1Z2KpGjAL MzMS0 0NDYyLTlmM WUtMT ZlMTdmYjYw ODI3K VQ0DOLwJIL oXzc3 YWEzNDMwLW UyZDI qGUIhRy2tZ 2Y4LT djZThkYmUz MWRhM ykgNDEgMCB SKF8z MjdCNjkxRS 1BNTU 4LTQyRDctQ jlFNS 1WSXTpJiF6 NDA2M DIpIDQyIDA gUihf ZAs8UNT5SB ItNjk hCW02TdQqP ThjZD EtYTVmYWMx OWZhN 5SqBFH5OjD wIFIo ZtW3ZDTdUW gzLTJ kMjMtNDczM i1hOT z0ESOgZNP0 ODMwY aK1FFezGOE gMCBS KT3tSWYwDW gwYi0 4YWFkLTRkO WUtYj M9KR68ExWt OTJiN iL2KSVxMMD 1IDAg UihfZGNmYz MyNjI eViAnZJ90W 2YyLW K9JPSoApQ3 N2ZmO TEyYzgyKSA 0NiAw IFIoXzVjYz kwNWV aOMN8HhstT GI2MC 80LATzAAN3 NjNlN GNmMTAwNik gNDcg NDJYUE5uGd FhMDF qRF5xZLY3D TQwM2 PqVzP0Ne4z NWM0M TcxYzAyMGI pIDQ4 IDAgUihfZm FhZTk wMWQtMzQxN y00ND MxLTgyODQt MjM2M zZmOWJkYmY 5KSA0 OSAwIFIoX2 NkYTU 4B0OyHAY9H TAtNG KxOK50KOY8 LTkzM CE4ZCI0XVT jNykg NTAgMCBSKF 9kNzI 2MHihYf78O TM2LT QzYjctOWUx My0yO Lp1GTLvOjL zZGUp IDUxIDAgUi hfOWI 6BWCvX9YvW Tg3Zi 09NWM5RSNu ODgtN kt6YCH5Xrz lMmUz EBK0PpLyAY IoXzk yUUU6WgOwI TgzMj NaSPSjAt6x NWYwL WYyMmUwMzZ hY2Q4 MSkgNTMgMC BSKF8 6VwC3YPQ9W C03MW L5BYRqNOWl YjdkN Y87WWNlRfJ zZmYx PeOhFFH3XO AgUih gYtmyVSF7L DgtND bmMM34H6B5 LTlmM GMtYzgxZDQ 0MjY1 CXf4UEQ8YK AwIFI oXzQzMWYyM jA5LW C7ZfdzDHwl My04N DFmLTIzYzA 2ZGY3 MzljOSkgNT YgMCB UFK1PIbOpY TQxMy 01ODgzLTRD MDMtO TT7JT9CWGu 1MkM3 RTAxMjQpID U3IDA gUihfMGFjO DI0NW PuZGP8NT29 ZjVkL WJlYmEtYWN jNmQy NMB9SuUtMY A1OCA mZCHwO0HoM 2U0Ym Z3ZLMyA5Ma NDI3Z O64HLFgSTt lMmM3 LOnpVKB4Xp kgNTk fHZWCQP5qG zFiMG A6PN7qLqFx LTQ4Y zgtYmViNy0 xZmM5 IcJyQUU6Vk YpIDY wIDAgUihfN mNhYm EwMDEtMjUz Yi00M WMyLWFlOWI tOGEw GOW2TEW8BY RiKSA 2MSAwIFIoX 2FhMT Z6PfAbPPPo NDQtN TRmMY15IOV jLWQx TdZnWkQ0ZH k2ZCk gNjIgMCBSK F82Nj ErKEAjEn5n MzExL TQwZTYtODU zMS03 OGVlNDViNz FkMTg pIDYzIDAgU ihfYj AbBZW1AQQj MDJkY h10MPSwLNJ 0ZTgt C7WiEKCtQV dlMmN oWDJ2FOQiK FIoXz a9XBZjYrC3 LTQ3Z GQtNDQwZi1 iZjEw IMCuCvV1Oi dhZTQ yMCkgNjUgM CBSKF 0hPNHvFwO3 Yy0yM mNmLTRmODM tODAx Vy3cMfQmAt Q2Njd bMJywIKC4E DAgUi mhUNL0YGL2 YTUtM OQ1Iq56RyO 0LWJm ZjctNWMxYW NhODV tZsQhSTO4D yAwIF VgV6DwSyms MjdkL TliMTYtNGJ hNC05 MmIyLTVkZD E0NmJ mMzgyYSkgN jggMC RYPM6wTuRh ODRlZ A6jItLjRAU zNGEt RKJ6Rg0jSL E1OWZ jMGVmYmYpI DY5ID AgUihfNWRj NDYwZ BJwNfS1SC8 0YTE0 LTgwOWUtYj k4ZjM 4CCz4S0WhX SA3MC AwIFIoTUtN Ry0gR VxiE5cukxh lIFN1 xX8gnlzgSY cxIDA gUihfNzhjN GE0Yj WpWlZzGL30 NTQ3L ThhZGYtOWU wYTI5 QDc3WUX1AK A3MiA sTBZcP7F3K zNhYT ZuYSS4H7Wu NDhlZ K89DeUtKNj 5YzA4 ZjNkNzQzYy kgNzM aYPQDZM05G Tk2ZW L1Sj19UMO1 LTQzN WMtOGUxMC0 xMjQ1 GPT9AMEeVV IpIDc 0IDAgUihfY TQ3Zj YxMDctODcw Ny00N KFvEAr7KKx tZDFh JLYrZzA5NF k5KSA 3NSAwIFIoX 2UzZm JhNzhhLWRl MzMtN ANwAd6xYxq hLWQw DNE6IlY6CE JiNCk gNzYgMCBSK F81Nz D8MtXwFa67 ODk4L TV2LJEnFup 5My03 XWZyB9V7Nk U2NTc sVOc0XIUzA ihfM2 FhOTFjNGQt YzllZ Y56PeOrHLU 3NjUt NzIyNGZlOD A1ZGE hKPH6VGYtF FIoXz l5WSF4GLRp LTk5Q kItNDVDNS0 4MTk4 EFqSDhT1LR IwOTU xNSkgNzkgM CBSKF 78J8StCLEv My1mM 0K3OZPzEKE tODM3 Go0iUaJ5Vs U2MWU qH9HvANgiH DAgUi hfYzExZjk0 YmYtM ufuXu48LLZ jLWFi TBTrZ0B2SZ Q1ZjQ 7RQzqBKW8V SAwIF EdK7ItQ3Wc OWMyL IF0VlGlZEB jYS04 YzdhLWRiMm M3YWV iMjgxMSkgO DIgMC DSSG97HPU9 NzA3O Z2nDumaUYX 0ZmQt NGi7YN6sOD E3MWQ 9GsR7QWTvL DgzID AgUihfYjc0 MTk3Z TctYmUxNy0 0ZWYy LWFmZWItMG ZjZDM 0ZjRlNTFjK SA4NC SuEWPoH6P3 MzZkY mIzLWNkOWI tNDhl KC90YYodBB ZkOWY 5NTdiNmNkM SkgOD NnEGZDEL2h NjM2N APwBS16YFY 4LTRm SyAhFNK5Eu 1kNTc yNWIyMzYzN TkpID g6VVGwOfdf ZTI0M OF8J4MoBVR zNC00 OTdjLWIzZm QtYTI vSWRzD5CiS jcxKS N3HcZxTJAu Pj4KZ C9op3RzPtB yIDAg x1IgOea5Y0 Rlc3Q nZJwQDm6lG GlzY2 hhcmdlIFN1 bW1hc odwF6IvwKa lPGZl BfYyYMQ8FV A2OTA wNzMwMDYzM DA2OD AwNjEwMDcy MDA2N zAwNjUwMDI wMDA1 MzAwNzUwMD ZkMDA 2ZDAwNjEwM DcyMD V9DL5nCQWs ZW50I DggMCBSPj4 KZW5k s8XpCrg4QO Agb2J kWjb7S84tM ERhdG UoRDoyMDIw MDQyM jEwMzUxMy0 wNCcw EVdiL5HrUE F0aW9 aYEY9ECeSX jIwMj AwNDIyMTAz NTEzK r32ApHeRjm vUHJv ZHVjZXIoSW JleCB QRBZfJ4CqY XRvci I5LbiqOR3r NS84N XV1HPrZNBT BXVAv WfrdxK7ptC ZpZWQ gdXNpbmcga VRleH JuYm6wJuvk YnkgM VQzWFQpPj4 KZW5k a5FbOxedKZ YKMCA 4OQowMDAwM DAwMD NmMOH1OZB3 IGYgC jAwMDAwMDA wMTUg MDAwMDAgbi AKMDA wMDAwMDEwM yAwMD AwMCBuIAow MDAwM ATvDOa0FWE wMDAw BQ0bHnUhSJ AwMDA zMTQgMDAwM DAgbi AKMDAwMDAw MDM5M CAwMDAwMCB uIAow MDAwMDAwNT I2IDA tXDMdHD2sV jAwMD AwMTkzOTAg MDAwM DAgbiAKMDA wMDAw MDcwNCAwMD AwMCB uIAowMDAwM DAwNj QwIDAwMDAw IG4gC jAwMDAwMTk zNjkg MDAwMDAgbi AKMDA bQYRbRNN0D SAwMD AwMCBuIAow MDAwM UZ3VTA9DCI wMDAw XW0sRlLiMJ AwMDA 3NTcgMDAwM DAgbi AKMDAwMDAw MDc5M iAwMDAwMCB uIAow MDAwMDAzND YxIDA xYLPdZX2xK jAwMD UpRLA4XCIa MDAwM DAgbiAKMDA wMDAw Kol2GeIuYI AwMCB uIAowMDAwM DA4Nj UxIDAwMDAw IG4gC jAwMDAwMTI zMzIg MDAwMDAgbi AKMDA wMDAxMjQzN iAwMD AwMCBuIAow MDAwM CScPjH3ILG wMDAw UZ8bKgLvHG AwMDg zNjIgMDAwM DAgbi AKMDAwMDAx NzAyN iAwMDAwMCB uIAow MDAwMDEyNT M1IDA kMHHyBJ4tP jAwMD EkFNQ8WCcg MDAwM DAgbiAKMDA wMDAx HpU7VnSuAG AwMCB uIAowMDAwM DE3Mz YzIDAwMDAw IG4gC jAwMDAwMjI xOTYg MDAwMDAgbi AKMDA wMDAxOTQyM yAwMD AwMCBuIAow MDAwM QG6MVbtPWD wMDAw ZS7lItVhDD AwMTk 1MTcgMDAwM DAgbi AKMDAwMDAx OTU2N CAwMDAwMCB uIAow JLVeHLR8Va ExIDA nHSWbZW1eK jAwMD VtTAn0UZij MDAwM DAgbiAKMDA wMDAx OTcwNSAwMD AwMCB uIAowMDAwM DE5Nz UyIDAwMDAw IG4gC jAwMDAwMTk 3OTkg MDAwMDAgbi AKMDA tVAUjVJi8W iAwMD AwMCBuIAow MDAwM WS1RKqaAUY wMDAw LC1yFwWqGD AwMTk 5NDAgMDAwM DAgbi AKMDAwMDAx OTk4N yAwMDAwMCB uIAow MDAwMDIwMD M0IDA cDXSyVQ0nQ jAwMD AwMjAwODEg MDAwM DAgbiAKMDA wMDAy MDEyOCAwMD AwMCB uIAowMDAwM DIwMT y8FRHpAEQq IG4gC jAwMDAwMjA yMjIg MDAwMDAgbi AKMDA ePCSgTBC6S SAwMD AwMCBuIAow MDAwM DJfSxB6GKV wMDAw TW4iLqFqKN AwMjA zNjMgMDAwM DAgbi AKMDAwMDAy MDQxM CAwMDAwMCB uIAow MDAwMDIwND U3IDA sHHJaOC1mB jAwMD JsCcE5CYHm MDAwM DAgbiAKMDA wMDAy LKE9HLDaTX AwMCB uIAowMDAwM DIwNT n1IEQeRQBi IG4gC jAwMDAwMjA 2NDUg MDAwMDAgbi AKMDA bEUGtIEE2S iAwMD AwMCBuIAow MDAwM JPwZhS1LEB wMDAw DL1fGtSqSM AwMjA 3ODYgMDAwM DAgbi AKMDAwMDAy MDgzM yAwMDAwMCB uIAow MDAwMDIwOD gwIDA nCHAjLM1cU jAwMD RtXoM7Zmot MDAwM DAgbiAKMDA wMDAy XBz1JGRfEK AwMCB uIAowMDAwM DIxMD IxIDAwMDAw IG4gC jAwMDAwMjE wNjgg MDAwMDAgbi AKMDA wMDAyMTExN SAwMD AwMCBuIAow MDAwM DIxMTYyIDA wMDAw BM7sEcGxBR AwMjE yMDkgMDAwM DAgbi AKMDAwMDAy MTI1N iAwMDAwMCB uIAow MDAwMDIxMz AzIDA kXESwSL8aU jAwMD AwMjEzNTAg MDAwM DAgbiAKMDA wMDAy QJV2OxVmVT AwMCB uIAowMDAwM DIxND M0CNFyQXJs IG4gC jAwMDAwMjE 0OTEg MDAwMDAgbi AKMDA wMDAyMTUzO CAwMD AwMCBuIAow MDAwM ZCcREk5TVI wMDAw HW6uXdSdBZ AwMjE 2MzIgMDAwM DAgbi AKMDAwMDAy MTY3O SAwMDAwMCB uIAow MDAwMDIxNz I2IDA tEEUkMV4uU jAwMD XcMyJ5EhXs MDAwM DAgbiAKMDA wMDAy MTgyMCAwMD AwMCB uIAowMDAwM DIxOD G5YNVtARTr IG4gC jAwMDAwMjE 5MTQg MDAwMDAgbi AKMDA bYTLmWLv7N SAwMD AwMCBuIAow MDAwM KAgIZT5WUE wMDAw KJ8bPtOkYO AwMjI wNTUgMDAwM DAgbi AKMDAwMDAy MjEwM iAwMDAwMCB uIAow MDAwMDIyMT Q5IDA eVAZiVL2sL jAwMD AwMjUwNjkg MDAwM DAgbiAKdHJ haWxl jhp2MM0Kva ZvIDg 9PFQcYo6HC CBbPD I9ZLFiRUOg NzU3N LYcBxNjL0E 3MTA2 YjBkMzhjYj cyPjx kZmQwOWYyZ jZiNz YxYjQwOTA1 NTdjY 2VhNWYyMzM wND5d Y5Hjd0RbFv AwIFI uV7g4KCJ7R T4+Cn S6OVL0cJFw ZgoyN EU1ZTbtENX PRgo= ID Date Data Source [id number] 08/12/2019 12:12:00 PM EDT [facility] Center Name Value Range Interpretation Code Description Data Supporting Source(s) Document(s ) Physician No OGQNVf2dJu QKJeL [facility] vj2BGNTNqU G9iag [place] [facility] 5cGUv Center Eq3miZ6UGE NlRm9 rzE8GRNq8U XRpY2 AjAY6zl9Tf bmcvV 9syYR5jxZQ uY29k dB4zAe0FLQ 5kb2J qCjIgMCBvY moKPD wvRmlsdGVy L0ZsY UErLKXet6T lL0xl sua5sVEuGE 4+c3R yZWFtCnicK +QCAA QdDGqRWH5p c3RyZ WFtCmVuZG9 iagoz XWMts4PdRa w8L0Z kgRDery3Fx GF0ZU YyL42kFW8O ZW5nd GggNjk+PnN 0cmVh hKj2oPQM2B rk0o/ INFAwNFAIS eNyCu EyVDAAQkMF I1MLP XNTBQtDPQs jhZBc Ix2UfYFKmI h+Rad nKjeWe1vSY yAXAL YrNq6RGU0k c3RyZ WFtCmVuZG9 iago0 MUDut6RdJl w8L1B rI2HOe6GdK 1VzZU 5vbmUvTmFt ZXMgN SAwIFIvVHl wZS9D VUOgdN5aX2 91dGx pbmVzIDYgM CBSL1 WhS0KlUGuo MCBSL 1ZpZXdlclB yZWZl kmGfA6IrJT ggMCB WAe7NUJ2qz 2JqCj cgMCBvYmoK PDwvS 0fbk6k0BWQ gUl0v QPueBH2QYO dlcy9 Sn0EqlIPiI 0lUWF SfIc3oFpch Pj4KZ F5rc3LlDzA gMCBv YmoKPDwvQ2 91bnQ rQP0EoQBwy CAxMC AwIFIvTGFz dCAxM CAwIFI+Pgp lbmRv YmoKMTEgMC BvYmo GRf0MT4CSE XNlZC AxMiAwIFJd CmVuZ K4diytgXkC wIG9i rdv3FO6EyU x0ZXI vRmxhdGVEZ WNvZG IuFOScK4Ok IDI1O TYvTiAzPj5 zdHJl IU8KpIvebo dUU9k Wh8+9N71Qk hCKlN OaiDBTDH94 SJEuK jEJEErAkAA iNkRU cERRkaYIMi jggKN DkbEiioUBU bHrBB lA9CAvAUvJ SWStG d+8ee/Nm98 f935r d32G6Fldnp a6AJD 8gwXCTFgJg AyhWB Mo85ASdOvn YAcBD JHOG2nA5OY zs0IW +SRAeDE53G xsmRP 0V496DsG7+ yrTP4 zBAP+flLlZ IjEAU JiM5/L42Vw ZF8k4 PVecJbdPyZ i2NE3 OMErOIlmCM laTc/ YfT5q3nFFO OfMyh GwFq8UN0yH w5Nwn 8105Mf4UgC AZF+c I+LkyviZjg 3RJhk DGb+SxGXxO NgAok qbo0fPLFOp tY5Io NoZy15kM9S jJX/D WW0uBmnIZL 8XOzF ouEiSniBkm XFOGj ZMTi+HPz03 ni8XM PR28rJWmRc iZGVk i5BTFNd/8W RR5bR myIjvYODk4 MG0tb f4g0R5v/Ju S93aW XoR/7hlEH/ jD9ld +sJ9JjSMvt dn6h2 2nAGYk8vDV u/2Hz WAvAIqyvnU OfXEe unxeUsTiLG crq9z gAFjDd6tzV +jv+p 7Kt3NfeW8I vt3v5 SI543F9leI xQ143 ltB5nhILuU 7icPk M5p+H+B8H/ nUeFh H6LD4AL2UD RMumT CBMlrVbyBO IBZlC dmH0a1j7B7 P+pNm 5lona+BHQl lgCpS HiGV2sETvh ESAJe 8Oj2X67Q1N [place]/nN c8HWeD02o7 L+fVe 2WB1NIxZ/j mNHRD F2JbVX0Wf3 WgI0I ABFQAPqQBv oAxPA BLbAEbgAD+ ADAkE oiARxYDHgg hSQAU QgFxSAtaAY lIKtY CeoBnWgETS DNnAY aQIo3KA4Nv 6By2A M9ANJDF1ru CnwCs xAEISFyBAV Uod0I EPIHLKFWJA b5AMF QxFQHJQIJU NCSAI VQOugUqgcq obqoW boW+godBq6 AA1Dt 0JFoBQ1QKk HIzAJ psFasBFsBb NgTzg IjoQXwcnwM jgfLo Z5kJWgV6yX 7oRPw 4mnOJvOC6P nEYAQ ETqiizARFs JGQpF 4JAkRIauQE qQCaU DxmD2uD9oZ SJGny FsUBkVFMVB MlAvK FhNM4vBAbS ahNqO qUQdQnag+1 FXUKG cH0IVPSfwh zdHO6 ZN9LDfZcHh uRleg e1Ce9ZHgGi Q4+hU Sr0XmpOMLR H9MHC YVswKzGbMb 0445h RnGjGGmsVi sOtYc 64oNxXKwYm wxtgp 1OMhMcxD9f n2DI+ H5gQY7F0s2 Togrx FXgWnAncFd wE7gZ vBLeEO+MD8 Xz8Mv xZfhGfA9+C D+Suzy KyE8vNonCM QiphL kUC2LR3T2p LeEEk EvWITsRwoo C4hlh GPOM3Sedeo iVRSG YkNimBJCFt Ie0nn AEcMn6qc8y GZA9y IMdH2yLdJk 8h3ye /UaAqWCoEK PAUVi vUKHQqXFF4 pohXN QD1URgqoR7 YoXhE cUjxqRJeyU iJrcR POmCMr9RM4 YbStD NZ8SH2LPiR ebNyi /YL6AvWUOZ I4kPh UYoo+yhnKG NUhKp UOYC18KTTP upZ6j gNQzOmBdBS aaW0b 2iDtCkVioq dSrRK nkqNynEVKR 2hG9E H9Op8Xnal+ nX6O1 OnLG0Ccyqq 1TbVK 9xg0lcbyly x1UrU 2nDG4I1yL2 R91NP Be1n9lf/TQ GmYaY Hz4Cgn0Jij 8XQOb O0BQV7xqks H59zW aMNPXTW0Q1 ju0xz StLfS3nUBp tKq0j rd3ULjfy5d naq9Q /wO0lWEHga NR6Cz Q+ekzmOGCs OTkc6 hPPRgigN9n f11Jb i7voE9O8oZ elF6h Lunwel5Ltf s/ST9 Hfq9+lMGOg YhBgU ExLj9CmMTI MMUw1 2G/YavjYyN Yow2G HUZPTJWMw4 wzjdu Uu3gHlUdO6 lm0mB yzRRjyjJNM 91tet vGJvV4RaRm MRsyh 73wrVGuv41 HLdAW ThZCiwaLG0 wS05O Fs0fwcryBL YMtCy 29AB7XWRzC W22z6 ye9uX5hqG8 daH3H tuNBxKJc08 Pzq62 FJij1whohU PJc37 qb21vCuX7d bse32 2D2618uM7D /wb7X /sFUs6KEwi 1h0tH MVdYq4eCVe 8YKY2 9zhViAA2u3 rXY65 uSA9gQO0Lh Y+RcX ttbpY6lDb4 nG8/j tOdxDbrh5m lzrXa GdDDjRc34w Unddd 457g/sDD30 PnkeT o5IwpHuu98 HPZ17 WXiKvDq/Xb Gf2Sv Boj4Jde9yL e9CH4 hPlU+1z31f PN9m3 2HgMe93fbw 8pf7R /kP82/xsBW gHcgO aAqUDHwJWB fUGko HKE0OPVsl3 CRcE9 BCDZKMi6cW vzDec B17xVueKN4 O2h98 HSa1tUfM+O CQ8Lr wl/GGETURD Rv4C6 YMmClgWvIr 0iyyL hFCmTOhQ2p xWjE6 Kbo1/HeMeU x0hjr BKFrl8C25z TxHXH Y+Hc47pnvu f6LNy 6tOpOLxY31 foi40 G0jl9f7rto vvj4E sUlnCVHEtG JMYkt ya71fXkIoz TSgKW 1J0l7tS5p6 hOeB2 3Wp8Khdf/n TyS5J dEnLId8Bo1 ePJni pwCT2zXIQh QLnqf 6s6brlc4UH duf9i x2Jb34M9wD mHFUS BGmCfsytTP zMoez pZGPi8HGjU ftXDY eIpG4PJLQu 7K7xT XZf2JGrCDz XjKa4 5ZTk/MmNzr 3SJ5y pkEbKAtJ4w 3LJ/J 9879egVrBX dFboF uvynP3lyvN +lXQq qWrelfrry5 aPb7G z21IzTP7qI t/KLQ uCE88vV0rD U+RVt PwvoB9cwmk ixWKR nZ9RvodyDa I2ijY HSsc2eayOH 9LeCU JU77YG5tib +Zuvv yKyDgUV86f krRls ImfwO5EzKk h1uvb 3LcdKFcuzy 8f2x6 zuRZMX1oVy pc7l+ x6RUPZHwvS sEuyS 1oZXNldZVC 1tep9 kOf8CU9OYT utZu2 t9yf7aagh4 PHY01 jhWRvj444o YO/Ne r/6zgajhop 9mH05 +k56Tvn7m1 36url Oo0b16pW+4 X7pgY eShh0Unp8x mi1lr XCrpHXyYML By994 o8Ohmogpe1 e3lx4 ChySHHn+b+ O31w0 GHe4+wjrR9 Z/hdb Hc7h3WS3ja eOdWV 0iXtjusePh p4tLf Xxmgyq6ub9 x/TPV OtSGI18HzC iaITn 07mn5w+lXX q6enk 06V8T3caiD k9c60 vvG/wbNDZ8 +d8z5 3p9+w/ed71 /LELz csHOwKk4Pe kcKlz hE9f5sm7Yv oGHQY 0qgjDaa19R e4Znj a80fp5blQK va+eu iQt2dSK/JH h61HX p09RdMW2bq v56Fb 9gbo1y43Y4 FlzF3 786K8AcXt0 mvcbf zN0kL6xHS9 +6j06 8LXXumyu9J EnP2X /7M743TP7W cWEzk VeK7nYygO9 Jy8/X vh4/EnWk5m nxT8r /7d2pBNZu7 94/DI wFTs1/lz0/ NOvm1 +ov9j/0u5l 73TY9 R8CDz5cTjo 8UX9z 4C3rbf+7mH cTM7n ocn1aQ2p+6 PkY9P Acl1yMd71V 94Tz+ wplbmRzdHJ lYW0K IR3ii5AgMz EzIDA qd0ReJhf0F 0NvbG 0vX6ZxL3Nn RGV2a JWyM3MayR4 IZWln aHQgMjkvU3 VidHl jUF5HkWGoL S9GaW j4WXUhPyln dGVEZ WNvZGUvVHl wZS9Y V9FqCYL8W4 dpZHR lPLU8Lb3Jy XRzUG CqJ64yaT1i ZW50I OicJEVfA7V oIDI4 Tc8anGZxKZ 0KeJz twTEBAAAAw qD+qW dAL0UIUFCN AB4G+ 2OKjwplbmR zdHJl QD2MFK6cm5 JqCjE 2RJQga5LfG jw8L0 VpaB5wC3Bb Y2VbL 4aTK9Nyh9Z kIDEy BPPbLx0uXA VpZ2h 8PGE5H0M1Y nR5cG TgCP5aN9Cw Rmlsd BMzU1AzYPK lRGVj p0LmE0JaZ2 9kZVB opr6pMKrhK 29sdW 1ucyAxODIv Q29sb 3JzIDMvUHJ lZGlj fZ7yNED0R2 JpdHN PYHONt15ia 25lbn QgOD4+L1R5 cGUvW G4iqgBqfO3 XaWR0 aCAxODIvU0 1hc2s gMTMgMCBSL 0JpdH RPYBJEx32x b25lb aHqBZ5ZcnA lcnBv aCC9OME3xs VlL0x irna9dKH7A DQ1Pj 7zjLJhTQ4N eNrtm wlUVEfWx2/ iJHMm 0bhGWRqatW VzwSW OE+PESEKMi iua0T gaYjQRjQIa AiKgQ NN00/vCqoC ANoLs x9GKfluTPj FlURF QUUFAQJRFY Kq6ka ZkrupWQ45I d97R4 +t671Xd+tW 9/3vr TH2seFTTD8 r5x2e pC8v3KTZPd eTElf KHr65/12/X xaRXh EATxEwL1Qo 4qOf/ eoRn8rI9AM M/NQv 72Ef2YjKV3 zc9NW mZV0/Ps75G kRfLF Wh2DEeLnRz Eoj8X zI9OEbfVsO z+1fe nP3lBNiouV ChRQI fLBAfmmf7g uL3+1 8sXe4VoGwG pJZWN Y96/hqbHqw +Gw6S vVP35aupJU ZbxM0 394EMHUHTZ 6hCDy E1jOcwmqWM Lc0Cd Nzm6lWrQ5F K8rCv 3BjZqbHmam le12v KigDVOcp8i 7uRl3 hGppTdrGl5 1/+qb Wr/SN1JiZO D0AkN E1AUX6wJo3 ARQp4 ToOPO3RAY5 5ojYe afADFeYQia fzJT4 aYtDLEwmgx I5ID7 /zUZE/JeZU xzo8E BDu5BpKNyb XS6eJ vFq1m14n9N Xja2P CBuCh9nK3T LudVk /Ub7zQ3E0r hyRlQ eigcAEJWpq boXUB mT/DCAwYDr N1f/3 NwWIoWbsRY R2shC 0OehkBOYNc 7/2xg SF4PGr2TpD 9tfcd h3Ng2NWQQc RL/YJ dzqnyrrXVp COPN/ LFkLmi9x99 SOLOMON+6 AQ99kO8xQW EaCgk 1FE6gwpl2j p2ujn WOmIuPrlix Gh+uc C2qnJlAVTI QBl+u vv/bJdUaDH k4rIC vtHxPq04k7 h615u VZLJe0qFBa dr60G EAUP2ScGI0 giIFJ wdHVkym9Z+ zGkJM LJx4X39CHT 5/X+F vB58Yygg9f 4YUGM aC6EGO1lR6 UKECH sMETHcGgT6 yKVxP cWmByc15S1 BRXCk l92Csv+yfO ymJoC KO+cnIoi0Y 4vInz dqjPaEgQYV JlrDF Hsl4xO+0cM 90FqQ jrInUHKBqW TQpxt uR1vsjIZpP SPzCJ jhjqXoLIHh 1rD97 lk/kdPRud0 hNS6z hgpCZo25ZF 7vNOg ygOhGWHUiL vOa/N A37s0KsJez SwkUl NDN3G117i4 UiCGX 8+5iSZcTlF gwbhF 9VYU32Noqd m+8L9 ZVkij417xJ ZtPDU TCLDePtYJL 9B0s8 KsgK3jS5z+ 0/dlF gwIaPbGDCY TBgfr U33D+uoOtZ W298I cfCNNGIZgt I64QW 8DkpYPq2vp Wn3Bh ZVNRpB3AU5 w+Xsa 5IElJw2Ug7 xxCY6 KJr8ee9sVV 2KTL0 lWBap4d2+K zrvwn OyzVmt5yl3 EvF1f IgEphQ/JV5 nKl1M r4+K3X2Esc +UNKq Awno/OKnmN OJN4Y bsaUSE1A9S mdh4j DEHZZ5o26X JM40K ducWN8IIS0 5OGzN 1hPy7nL2Bb BywRk CaZ0vlrDoz 1Wb2k SDtiuoc+Bj mkTjl dyaXy7HWf9 TgBID nS5elpvGM4 p4pMM BB4donmBJ0 dwNJM UQG9iW2Kjh GLRor 98BBRcgOsd klImv dJEzF0K3jL Q6ifx u/AHpAN4H5 XBIA1 0ezPEgrAja 8GuvG ZEu8Yu+Joy IzNsW YFtD4ap4Mm eJJr6 mkv28T2Ysk ZiMEp juBDMHhedn 3U9BA +XegtlbA+Q PNN09 3aDCABLHyT dvhEC dnT1vhmQ46 qBGO8 J7HDBcShX0 aqt9L SnV4OpgAOc 538a/ xSSgtS6ja2 28ZSH FLa7Q2jedK MHYvA t/CIDJzmg+ 8MIdY kx60O+g6Ya iGP6V cL4Kf0XbFf UJFN1 QB2PdhH8EH Wqcj7 5VHMGWK48X 4xOVL 8nNZBdmcOG glspo bBM6kdwkZY euDDN ViZ8qZpXeZ GaCCk r/4Gkz5Gx2 lJJ/A zSYoOB6+0G /DgA1 IcylgJw9Hy 7fNAD QYERx6Jrtj empGB Eb/uUREEE5 s4YL5 eQlyTCMLI5 8iTo7 +JrYSYJ472 tfnEK TuE4+l+Wla l+UiC r+Dohd60Ed FXTZu IIgwyV/orsales E3zIE iyLGF6zXqB YOu1A lichgc84wH kPWCE 3tjZsFZXeR 60LO8 aW0xzPMk+w qod7E iIwkV+d4TD E6MXO 9UNPkVP+5p vfU3R jy7j/5UkcF RCqSb 3Z1ccBYJGl uDczk 3JBBFq5PpF wNH9r O+vbk6eQ/h 8hAIb bLbMErQUSN VVxxf +ivlXfrUAx Ck2HB SpMrasznYN q02B5 nC+VEZLtDC nbj+o J/9mS6NZo5 8Cwer AxECstrxDJ cApFx i/xb1QC8NV l9I2E 8rHO26a22e XMHyy Ad/janaImW 8Zk3y yrrRo+IHt/ EMsrr zVi7rHJXps U6/aL Fhm9hl03m8 FH5xR egJYgG4+h9 SXq/C h6o1lM0TE2 XWa3d HC0VG46nzc oVIkJ vnfEI7adJS Yf3X/ tzciGCchlc xGOFn i+TA3LxY2C IGPD1 RvP4SauYOQ 1NiSx Hny79jpoAI pGrt+ 4DgYZMtHJ/ tIzaJ mvOSNM4rO8 UQHEY SnCrRK0DET 65ENH sjWZVM88b7 VICzc r7rTnoYgi6 JTWS4 r+tbZNtpFg HjVvo C2SlT6ve4n oRkZX 8htZH8HwrP yILuW IvwhFekduL pIq8C P+hfDl1Up3 4mjoM Io+n45AhRw SIo88 vXGL0RSFx+ epnXZ 2OvulAYmIF o0Ttu /4EPtcboa0 qMzQ2 ML9lng4MWQ 5Aruq aCnFSgDoxy QnAEc IHfOtGq2mb vh3Ka ZI3gy6V9Fi YJ6fk Vmw+EgmGXO yl/tq AgKq1l5yHb LUTZM eSlYp8z+K9 LV2e6 L4abtSI8DB Fkc22 wRu0CLNGOW 8y9bt 44P5GSM/Gp kYnOA 972RV4tMoH I1+Cp qsM533za65 3IgrG rmrfMrAO7x 2jrdg SkJ979nNHj Alamg nnnm66ifcZ vxAit tNbk7HXzNn D0Uh4 Im+3/mCMnM OcYey YLl95h15Yf V8AkY 2cc2uQEvwJ dWdUd qKKkhsAY9S IMSgk LvqXpk9FjV AiOaN FRGejyIsQm QWldf J3+tqtuxOX C+D9w 99Ynampa+r NnL97 cblq+7q8yI mYIiR EYLbnJCO+v HURZQ pe+jo1zcr5 L+VFb GEcHIdbK58 UM+qj b0CtCLy9Ve U71wu ab7tG3y6UO IdD2o fH6B3ETSIy KLyqt UnhNdRYk0n CXJhG AXVKbeOjwX JVpEX mjAKRh4+ei E1pzX 15RJLlnXKC qBapS L673sHr3+S ccizn kYqczxwkUB xFiBD uUgGkWRp2b +0dvb OxFtHhmTkl 97zQ0 yZqfMtKS0L Y2J3M EPg8az9nsv 5vk13 d1OFVyGBIf 8DAQ8 WElvtt0gc5 YRoZI aBKmdQY82f FiL5H YcuPSFfXM5 z66/C 2OyS+JCLfO 56X09 CrLMPxatbm Oh6/O YBhT3WLeK6 NzQkd BGc9sBNGSF 7i4GG jiNMx4RMlQ JH+PP Wt2TKp0FAo PI8mT z+Wh1qsgns lyF9b hOFVrcHyjS ocwD0 Z9dPo5+iX0 iJa66 Dg5RC6VPJM hZZ4e eQtbzOnRBw U1Vh5 JZJVCjAUlR wI7tI QicaIaEmhB xRoSM TyJtjN7GaG sFiMS OmwSe/3R5P kXo0d oErBjoEkOV Xup3I Ul5HotgXNt y2S3K N66wtQBWnr kPFnl ZQtmPoWcbX G3mNQ IuDQRB9E4b iyHb0 zR+pzc3hi4 2wJlj 1qCHbskaJ3 AQkzD y5wOsIl2oI xC8gT W6LGUC6FnB 0+hYQ Tnkia7wxA1 7yzl3 SzF8Bh2zsr tl6mX Teg7re0Koj Z1EEB 3VylJfyN6p YYQqR C2a1LfhkJS oYgZf H3zKTICGOr rPe6B 71YK7nRnsa ZiOjx d8SWji7iI4 eU4TS UfU0yU9i4C m4POM oL5lvm54oJ ngcoU MecLjy08Zl t/LGf Dn+Eb5AbZP O+CJS b3QxX0n1AZ lStyS 9hdUqDLE0V Ip/7X RVknxCPf0B 9yksD GtA4wFvSqy uax6S c/p0sdRN/L FNUXa UjstoyUvxh 4uoDw 8t97Jni9tm GKyX/ hsRPX+2Nxv k3Wli o0P26yNX2U CtrHh 98eKHxeu0/ aRftQ eTguiFKbvG eUy8K tKAstCLjsk vwR6Z aHEGYJKnwi ejhRG Ztg+TXkN/a xWC3R GLvYyQNqDL 107Ba ZXpT5hnPyQ wAJCH F/Obj3QdWk Z1yMh M+hnq4Jub/ LXZ3d mV3l7jtEIA brBOA yIAZlCvlD6 Tbk0j BypHItGJdK K+sK6 te3W1rFfca jVK8m PQyvFmIFow 23YJ5 dOt47Dy2w4 Q5goy bRAD1GuU+c 4htff R251b4h2VT 5YA6+ FAnQE12cAQ wMY0c KLntgnemkD ZYMKg C5JetWYPn9 FlrE9 E86D5kRdi7 yVpuH bzgp6QIgKw uy80j rXApuv+73M LrDyz ZKRM/98S7L agN8j ckqplTQmD8 1YHvO MBMwR/akHh 4AxMJ rrpVxoJ0D8 rhIye AfcMG64QU9 puOmx e1akNOs9Mw FAXH/ Jj44XKIYfe q9AXb zuhsEFbceX iIk05 p99k0tMXrE bzQZ5 gzkuKzb/Y9 ra0NK VYn/HGXGl1 1lf/O LvsLvL7GBM Gf0EC V5jIqBAVuZ XFR4v jugOstKE1h DT5Xb V08KqYnwZP wLKBr r/b5SWZ0UA fISUl eJkYF2OA80 WhvSE wJ27MCr09Q A/6/d dgXFFq6mHH TL/Oz e+/oXJjugs erzcM MUITUq0ccb 97Q/L d5DmQRy7e+ kQVTX UDDyW6WYGU OuIJz Ba0ouXJqv1 DGx6Z Wp8BEJ/joq PH+8M 8BaEAFex1C RApMd F5MJv1c1cH FvmYj 3xAN5TBm3u 1PHku K32AUov+oz ppq5G O9DF87GVU0 /SigJ JtUe6yTJjx vRP9c azlI+mUX3t 9kfX4 PJbOvzS+0r G1HUt 0DJTcpGptb dlHOT Ko3EUnHAtJ contact lens inspector+l X3drtK67p/ Hs3z+ BfHZ6acLXa fx4fP 8mbWlV/XuL eWj8H tcjxbC7FW4 v2dQ6 +WfX/lfvo2 ZtsU0 JTiiVeO/SX UJYyA PaS8dNM8uu 9r7Is a+xTNzlnNF 37wH3 6O4y0mzIkc Gddar sT9qEA9zGf Q1+Jm djS0RB4/h0 VO6Ee dPRXSx97K6 rhO97 p8lpKxOHDr LX3jt FjoBVTFjpj 7/M1a IiV+8R0Stp a2pbY Y9sQi0dSM+ WvOuw 2eyJSfuQr9 r/e8A CPlpUlKBLE jE6p7 I6q43E9m/1 xB8P/ P5MHCipvxy gnJZe Q+sliw1iFg bOJ1z M31zel/vCq u7VQ8 /bY+yO2/ce lVU2N O9yT9MADDn ouNt5 XXzTB/UWkV d13Kh 6CEpUnJXos Y6dyG xrf/oWkbeH 5FHf/ Gce03YQumz B4Dp+ pfyod7ceQS ms0D/ ZEaAjmaW4O eTtgQ 6D21UTxxE0 CALKb mgwiQLKZEt O8pvS /8jVeH1U7f A552o tOitrmt+sn v8Plv SP4HtarfEu dHJlY R8CFG5ns7B qCjE1 MRKua4ZxXs w8L0d ln7IvVZffZ y9Ucm Qpb6KzotPt Y3kvS FA4mgZpL1t gZmFs n5CsG0EuFM EgMCB ZFe6fR46xd GVudH NbMiAwIFIg MTYgM CBSIDMgMCB SXS9U uVHqX5NsI7 UvUmV ze6PiR7LbH DwvQ2 6ce1MUcXZx ZTw8L 2IjDfL2sJY SR0Ig MTEgMCBSPj 4vUHJ dY8QkfLNrW 1BERi AbPYY4sGRx SW1hZ 8XTAF6RsPE nZUMg Z2hgFSeuWZ 0vRm9 cnAd5N8spZ m8gMT wzUDXUB5ap bHYgM DijWJCZQ4u pMCAx SUIdKo4KOJ 9iIDE 6GAMdZz7+L 1hPYm nzQ2C3XD60 ZzEwN kR4LmUuKTW wIFIv tK5tFLIjAN EgMTQ gMCBSPj4+P i9QYX JlbnQgOSAw IFIvT UWhmCRWw7t bMCAw SIQvOmX2KU JdPj4 AWT8gp3KpP jkgMC BvYmoKPDwv S2lkc 1sxNSAwIFJ dL1R5 cGUvUGFnZX MvQ29 9xaOpQB4BH XJlbn QgNyAwIFI+ Pgplb mRvYmoKMjA gMCBv YmoKPDwvR3 JvdXA 6IV8RK0JqC W5zcG FaQN6mjN3R U1svS UNDQmFzZWQ gMTIg MCBSXT4+L1 N1YnR 0gZYeMi1cq S9GaW s8FKYgYair dGVEZ WNvZGUvTWF 0cml4 WzEgMCAwID EgMCA sIK9LbIUhG 1hPYm bmG9DsZi4t bVR5c KOwVD9XCQC vdXJj CMJ2RS0Kaf 9jU2V 5Tp8GHYVyM GV4dC 9JbWFnZUMv SW1hZ 1GSN0gtEUr lSV0v PS1zphOtmO w8L2l eGEV7CVwgP DE0ID AgUj4+Pj4v TGVuZ 9YsVTTyS5L Cb3hb MQPtDJP4Sm AyOV0 +KsE4bmXve Qp4nN RHuUY4LWSq NFRwy QcAFBADCgp lbmRz bBJiXM3FPO 5kb2J zZfW6RGLvs 2JqCj m0N4SivOCn ci9Gb IM1SQHwT09 kZS9M UI4kyCbiLZ QzND4 +w2DmVIBxZ nicvV dTa3t4VJ6t r9DMv ZiZYiTZkq3 2iQJt nLoxV86s7f 43N65 YkzqJVtF5y 39/a4 CzN2UP5B4o k1iyJ E763817grP 6hohP EYZfKpArbI Y8ym3 lZmK3ATr96 ieCOR YOGmbotzfF cDWYI Zbg1XHRvkC BxIGh 8YKXvH4N7+ YJ9W7 khwzB1+DRz MOoK2 zHcTEmKFj9 ZU1mv 7zr/I2CX98 gNAre eKG2jlmIo9 JDmXC MM90DgZU3f gNwdR wGd2JoXBQg E1+t3 4+ibJfmHdS lno+s Cru6nnlaK2 R53K8 FOIQR2/61C Hc3A+ 2OTRH8gAlj jQyTf Or626ftYpC axog/ i0SXjDggL4 dvNWD /bjb+rDvzW mjmsL SMcIcRJ6Dv hYl8h HkdRP4M0bH jTZ6l QvJdg0Z388 Eutr5 8ZZBSxVRT8 jY2DG 8/NG1A5/LV CbEZq eZrj/o9Ilh DxmLc mkqieXsBxi B04Wb bHDkunOvzY xBuCj pvfNWh4yZ1 h24Ry qjbbQxaK/j PtwNI DwJ+BuPbad NZw4s DtBXWTMqF9 st9b1 dWgt4rsiQK H7c4V uaVmcHC5vP ky4tw elZgc4GPFv X1GQM lqCXGcDwf3 PRnn0 t8rtVDR/uB mx1xO QJ0y2Qmc3A dFZkP I4DmrTB0tV e3pjs l9mdUBAmnu GMAZ5 1WZX8mJPhF uCvcI 2uO88uF+2G Yy14Q r2S9a/sMaY NcBs+ rCt5R9Y7LO GgKKi e2x+v1EQCL E1xuA 9SUSAvMHh4 zyKLd SpZCJsqg/s fpttJ /qYdpBM3Zy TrM48 gXED6E8BRI RyR8z lJ60KeAT6g Glbjr QOtAwRF3Sv 3Ije4 faeF7S2QFM ofpoq ygECTdSUJ1 aDx3E NzLaBPa3if IZDuz zsZMTTPjSb 6UpVO 0RUgD8gqTY OT6Nr 02CBsZxeuC RlNO1 okMt/IoENE 5045F 2biR/UmYhk +yGuC eEVn0J3kzv 6b1YP kue+iYk9/x ug5kq o8Ydcl9ldt E8A5s XREaJv9OlV BJ7Pv C0zOw+t0zd /v1MF VPoJTarvAx 4agLS LYPc3ioZE/ ZxlEc Fb8FKfnsOV 8q1Wo AaL6TAjQBQ La769 oEFFAXwKgQ aIUYx BcQCbUFSnR v/0j0 6P3/BC1h6W f0O0o mN6n5o73WB 4PxGJ jom0wFs5tn gaipz 2heGPiTNjL HOxgE wolHbaVF9s mbk+p WwHqco79ej ZO5xO YwEYoRVoub bkuLq 5Riit77G+x P04q6 op4LN0S8ui Qg+t1 1lv4Y/7MEm wgkJw aYBFej1HLT 1atzl er9BKHxOGt fXCv3 B/iC9VJjda U/Lev kSr+1RLxsU x6VNK 8U7Mw80pOQ rS/jw cicdupSpbX zqBeM X3W/pRXtqj pmrcB no/s9MCvA5 EwT8X yn785SxW7/ hYCWN vRV+HdlhXq wvnSQ D+MaU29AGJ 6gvjT tzBCK6yaDW 7OPt7 OJqZHTovdz NyjcH w5Jnym34sT HOgyJ 2ETkykd9HM 4KHoo sSyV5sdS6U pdP2u 9f5esdsTu5 hP7/u eJQITArDX5 VqTDG 4ciGIkDPKJ VGjfd WNZ2sHlRqG JDLYK uuiBao5BdE AuurX S296Va0C0N OyyPV sIc90KWpUM lRud2 eLaHpb5cTq 0rV3i EH2XjeW5Gj HOZ6I 0y6KyuLrMG qcqHE J4h8+GpUeD Fzpgf wwyb4eMI01 L3lVd 4qo9k9ePfi LXKnD vTit0oxg8u LKIbS j3iOxUwLQu y5Jmz hGssSP2cyp d0868 LDkBnneXHa MXzMw l4Ce7nVR9m JctZ/ o/1b7KjKJV kyRbL OHPg2xlJXN Lk4PC FYdn08xFWT QC0JT TDhAnl0Nm/ cKIF7 0vAINewP7u JS9JS Wl7+vKmtfG vctlC QFa4Nhy9i+ msxwh WdAMzIOh2Y k6bw7 9M+cevhCVf Ev0x+ 5ewplbmRzd HJlYW 2HRM5wv5Wn CjE5I NMpc9LkPhm 8L05h bWUvSGVPYi 9TdWJ 2qHKfE6V7u GUxL1 Y0aYRgSk6l dC9CY MTjUr8quS8 IZWx2 HQDlV8VkT0 JsaXF 3BN9PcvMjQ GluZy 0JvX1KcdPu RW5jb 2Rpbmc+Pgp lbmRv YmoKMTcgMC BvYmo KPDwvTmFtZ S9IZU JaX4B8VuB4 cGUvV HlwZTEvVHl wZS9G j621A0Odg7 VGb25 0R4wojHMpo GljYS 3Vk2fpQ6Lm Y29ka P3pB0lpnfL uc2lF bmNvZGluZz 4+CmV fCS8miifmG CAwIG 5pgyo4RN3W YW1lL 2kjoLKbK5H idHlw WG7IaNDoVR 9UeXB zK2TbkdVwD mFzZU ZvbnQvSGVs dmV0a WUtD5CcL06 kaW5n U7wxboAto5 lFbmN vZGluZz4+C mVuZG 8fcvz0XIMu b2JqC wo6Pm7ZZA1 kb2Jq CjUgMCBvYm oKPDw vRGVzdHMgM jEgMC OMOy3RZP9y b2JqC gNgWSLpw9X qCjw8 T4QdVOTzAS BSL1h FNmBeYwU8Q TAgbn VsbF0+Pgpl bmRvY moKMjMgMCB vYmoK PDwvRFsxNS AwIFI mUCedDMR2D DcwOC BudWxsXT4+ CmVuZ X2vwtvfAWR wIG9i scc7WZ9QOm E1IDA lFi3ROLgsX zYgNj V8UL37aUcl Pj4KZ B8tk0IvEuJ xIDAg v5PuBod2B9 5hbWV bDdvjX2WyY jhiMG OnDMLcHZ98 ZmZiL ThmNmUtOWU 0NDY3 EBc7KPmgGK AyMiA wIFIoTUtNR y1QaH iueNTdZW6s Q29uc 3VsdCkgMjM gMCBS TI93G2CuEF JiMi1 bEAX0NUPoX DctOD L0BX71OFFo NzYwY 2ZlMTcpIDI 0IDAg Ul0+Pgplbm RvYmo KMTAgMCBvY moKPD wvRGVzdChN S01HL ZFiwOXxH2n hbiBD v66jhCf5BP 9QYXJ lbnQgNiAwI FIvVG i1rHJ5ZaZu ZjAwN GAcMLZ5UPU 3OTAw AuYyBSL0KZ A2MzA wNjkwMDYxM DA2ZT AwMjAwMDQz MDA2Z jAwNmUwMDc zMDA3 NTAwNmMwMD c0Pj4 +MdAcHY5na goyNS SgLT8vvyk6 PC9Nb 2REYXRlKEQ 6MjAy RYC9YTSnMn EyMzA tMDQnMDAnK S9Dcm VhdGlvbkRh dGUoR DoyMDIwMDQ xMDEy MTIzMCstNC cwMCc rX0Cvp6P4M 2VyKE liZXggUERG IENyZ OI3c0UbJR8 5LjAu MTUvODQzOC BbSkF DWT1HB5B7M G1vZG lmaWVkIHVz aW5nI PrBMJt9FOZ uMS43 PPR8MIGFM7 hUKT4 +MbKeUI3br gp4cm VmCjAgMjYK MDAwM DAwMDAwMCA 2NTUz NSBmIAowMD AwMDA xERM1NVYcJ DAwIG 4gCjAwMDAw MDAxM DMgMDAwMDA gbiAK MDAwMDAwMD E3OSA wMDAwMCBuI AowMD AwMDAwMzE0 IDAwM LChLH6ePwZ wMDAw MTAyNjEgMD AwMDA gbiAKMDAwM DAwMD L9KFWsFHYt MCBuI AowMDAwMDA wNDI3 IDAwMDAwIG 4gCjA wMDAwMTAyN DEgMD AwMDAgbiAK MDAwM IVtFTX3PAU wMDAw MCBuIAowMD AwMDE vJNn9ORWnH DAwIG 4gCjAwMDAw MDA1N DMgMDAwMDA gbiAK MDAwMDAwMD U3OCA wMDAwMCBuI AowMD AwMDAzMjQ3 IDAwM MTzCA0iNmU wMDAw DRQ0JdTwHV AwMDA gbiAKMDAwM DAwNz czOCAwMDAw MCBuI AowMDAwMDA 4NDI4 IDAwMDAwIG 4gCjA wMDAwMTAwM zggMD AwMDAgbiAK MDAwM HXxRHK3FrI wMDAw MCBuIAowMD AwMDA 5OTMxIDAwM DAwIG 4gCjAwMDAw MDgxM zkgMDAwMDA gbiAK MDAwMDAxMD QzNSA wMDAwMCBuI AowMD AwMDEwMjk0 IDAwM UAzOM1cVzI wMDAw MTAzNDEgMD AwMDA gbiAKMDAwM DAxMD Z7MCCsAFJg MCBuI AowMDAwMDE wNzMw IDAwMDAwIG 4gCnR yYWlsZXIKP DwvSW 5mbyAyNSAw IFIvS KByJwofL3Z 4MzJm OdMrUWK3VR ExNjl vElQ6PMVkD 2VhYz IoNp14SiSg YTM2N gV8BAMkUkR mYjMz CXPhO6AwQ2 UzYTA 4ODM+XS9Sb 290ID VeYINQN5Qd emUgM jY+PgpzdGF ydHhy UCKMCDC5JF AKJSV FT0YK ID Date Data Source [id number] 08/12/2019 03:36:00 PM EDT [facility] Name Value Range Interpretation Code Description Data Migdalia rce(s) Supporting Document(s ) CD:[id number] Negative [address] Test Performed by: [facility] Department of Pathology and Laboratory [address] [place] [id number] YPIB# [id number] Colten Guzman MD, Director CD:[id number] Formerly [facility] ID Date Data Source {[id number] 08/04/2019 12:22:00 AM EDT [facility] [id number]} [facility] Patient: BG DUTTA [place] S Age: [...] for and in t he presence of,, Tiffany LAUREN, Layton Biggs. Provider Attestation: I personally perfo rmed the [...] put in pt chart Ebony Pettit L[address] 12 [id number] PPOAPRIL [id number] signed by Layton Allen MD 08/04/2019 00:22 EDTElectronically signed by Abdoulaye Rodriguez 08/03/2019 17:54 EDTElectronically signed by Abdoulaye Rodriguez 08/03/2019 18:11 EDT Name Value Range Interpretation Code Description Data Migdalia rce(s) Supporting Document(s ) ID Date Data Source [id number] 08/03/2019 11:46:00 AM EDT [facility] Patient Name: INDIRA DUTTA SMRN: [id number] General DiagnosticACCESSION EXAM DATE/TIME PROCEDURE ORDERING PROVIDER [id number] 08/03/2019 11:03 EDT XR Chest Portable Violeta DO, Sherrell Auth (Verified)Radha son For Exam(XR Chest Portable) Altered [...] Supporting Document(s ) ID Date Data Source [id number] 08/04/2019 10:55:00 AM EDT [facility] Name Value Range Interpretation Code Description Data Migdalia rce(s) Supporting Document(s ) Hep B Core NA [facility] Test performed by:[place], [place] [address]SixfgcgmCalderon Land M.D. ID Date Data Source [id number] 08/04/2019 08:51:00 AM EDT [facility] Name Value Range Interpretation Code Description Data Migdalia rce(s) Supporting Document(s ) Hep B Core NA [facility] Test performed by:[facility] [place], [place] [address]Siihrlnxjosiah Land M.D. ID Date Data Source [id number] 08/03/2019 05:07:00 PM EDT [facility] Name Value Range Interpretation Description Data Sup porting Code Source(s) Document(s ) Hep C Ab. Non Reactive NO [facility] Test performed on the Siemens ADVIA Cent aur XP using a diagnostic immunoassay. ID Date Data Source [id number] 08/03/2019 05:06:00 PM EDT [facility] Name Value Range Interpretation Description Data Sup porting Code Source(s) Document(s ) [facility] This test was performed on the Siemens A QuantumSphereia Centaur XP using a two-wash antigen/antibody sandwich [...] permitted by law ID Date Data Source [id number] 08/03/2019 12:36:00 PM EDT [facility] Name Value Range Interpretation Description Data Sup porting Code Source(s) Document(s ) Glucose Lvl 121 65-99 [place] mg/dL [facility] BUN 16.1 6.0-20.0 [place] mg/dL [facility] Creatinine 0.73 0.40-1.0 [place] mg/dL 0 [facility] BUN/Creat 22.1 7.0-29.0 [place] Ratio ratio [facility] Sodium Lvl 138 136-145 [place] mmol/L [facility] Potassium Lvl 4.2 3.5-5.1 [place] mmol/L [facility] Chloride 103 98-107 [place] mmol/L [facility] CO2 25 23-29 [place] mmol/L [facility] AGAP 10 5-15 NO [facility] Calcium Lvl 9.4 8.6-10.0 [place] mg/dL [facility] Total Protein 6.9 6.0-8.3 [place] gm/dL [facility] Albumin Lvl 4.5 3.5-5.0 [place] gm/dL [facility] Glob 2.4 2.0-4.5 [place] gm/dL [facility] A/G Ratio 1.9 1.0-2.2 [place] ratio [facility] Bili Total 0.5 0.3-1.2 [place] mg/dL [facility] Alk Phos 63 IU/L 38-126 NO [facility] AST 19 IU/L 15-41 NO [facility] ALT 14 IU/L 7-40 NO [facility] ID Date Data Source [id number] 08/03/2019 12:29:00 PM EDT [facility] Added by Discern Rule [id number] Name Value Range Interpretation Code Description Data Migdalia rce(s) Supporting Document(s ) eGFR-AA >90 >=60 NO [facility] mL/min/1.[address] The CKD-EPI equation for non- Breann [...] Mild decrease* G3a 45-59 Mild to moderate [id number] 30-44 Moderate to s evere decreaseG4 15-29 Severe decreaseG5 14 or less Kidney fa ilure eGFR-ELIZABETH 81 mL/min/1.73m2 >=60 NO [facility] The CKD-EPI equation for non- Breann [...] Mild decrease* G3a 45-59 Mild to moderate [id number] 30-44 Moderate to s evere decreaseG4 15-29 Severe decreaseG5 14 or less Kidney fa ilure ID Date Data Source [id number] 08/03/2019 12:24:00 PM EDT [facility] Name Value Range Interpretation Description Data Sup porting Code Source(s) Document(s ) Hep C Ab. Non Reactive NO [facility] Test performed on the Siemens ADVIA Cent aur XP using a diagnostic immunoassay. ID Date Data Source [id number] 08/03/2019 12:21:00 PM EDT [facility] Name Value Range Interpretation Description Data Sup porting Code Source(s) Document(s ) HIV Non Reactive NA [facility] 1/2,[address] This test was performed on the [...] permitted by law ID Date Data Source [id number] 08/03/2019 11:50:00 AM EDT [facility] Name Value Range Interpretation Code Description Data Migdalia rce(s) Supporting Document(s ) TSH 1.00 0.34-5.60 NO [facility] mcIU/mL [facility] ID Date Data Source [id number] 08/03/2019 11:36:00 AM EDT [facility] Name Value Range Interpretation Description Data Sup porting Code Source(s) Document(s ) Salicylate Lvl <4.0 4.0-29.9 [place] mg/dL [facility] ID Date Data Source [id number] 08/03/2019 11:36:00 AM EDT [facility] Name Value Range Interpretation Code Description Data Migdalia rce(s) Supporting Document(s ) Ethanol Lvl 0-9 NA [facility] Result created by Discern rule. ID Date Data Source [id number] 08/03/2019 11:35:00 AM EDT [facility] Name Value Range Interpretation Description Data Sup porting Code Source(s) Document(s ) Acetaminoph <10.0 10.0-30. [place] Lvl mcg/mL 0 [facility] ID Date Data Source [id number] 08/03/2019 11:35:00 AM EDT [facility] Name Value Range Interpretation Code Description Data Supporting Source(s) Document(s ) Troponin- <0.03 <=0.05 NO [place] I ng/mL [facility] ID Date Data Source [id number] 08/03/2019 11:32:00 AM EDT [facility] Name Value Range Interpretation Code Description Data Migdlaia rce(s) Supporting Document(s ) Ammonia 27 mcmol/L 11-35 NO [facility] ID Date Data Source [id number] 08/03/2019 11:02:00 AM EDT [facility] Name Value Range Interpretation Description Data Sup porting Code Source(s) Document(s ) Neut Auto 75.7 % 50.0-80.0 NO [facility] Lymph Auto 12.7 % 14.0-44.0 LO [facility] [place] Auto 10.5 % 0.0-12.0 NO [facility] Eos Auto 0.5 % 0.0-7.0 NO [facility] Baso Auto 0.6 % 0.0-3.0 NO [facility] Neut 3.9 2.0-8.4 NO [place] Absolute x10(3)/[facility] Lymph 0.7 0.6-4.8 NO [place] Absolute x10(3)/[facility] [place] 0.5 0.0-1.1 NO [place] Absolute x10(3)/[facility] Eos Absolute 0.0 0.0-0.5 NO [place] x10(3)/[facility] Baso 0.0 0.0-0.3 NO [place] Absolute x10(3)/[facility] ID Date Data Source [id number] 08/03/2019 11:02:00 AM EDT [facility] Name Value Range Interpretation Description Data Sup porting Code Source(s) Document(s ) WBC 5.1 4.0-10.5 NO [place] x10(3)/[facility] RBC 4.05 3.80-5.20 NO [place] x10(6)/[facility] Hgb 12.9 11.4-15.1 [place] gm/dL [facility] Hct 37.7 % 36.0-46.0 NO [facility] MCV 93 fL 80-98 NO [facility] MCH 32.0 pg 26.0-34.0 NO [facility] MCHC 34.3 32.0-36.0 [place] gm/dL [facility] RDW 13.4 % 11.0-15.0 NO [facility] Platelet 266 150-400 NO [place] x10(3)/[facility] MPV 8.5 fL 8.5-13.0 NO [facility] ID Date Data Source [id number] 08/03/2019 11:32:00 AM EDT [facility] Name Value Range Interpretation Description Data Sup porting Code Source(s) Document(s ) UA Color Yellow NO [facility] UA Appear Clear NO [facility] UA pH 5.0-8.0 NO [facility] UA Spec Grav 1.015 1.005-1.030 NO [facility] UA Glucose Negative NO [facility] UA Ketones Negative [facility] UA Urobilinogen 0.2-1.0 NO [facility] UA Bili Negative NO [facility] UA Blood Negative NO [facility] UA Protein Negative NO [facility] UA Nitrite Negative NO [facility] UA Leuk Est Negative NO [facility] ID Date Data Source [id number] 08/03/2019 11:31:00 AM EDT [facility] Name Value Range Interpretation Description Data Sup porting Code Source(s) Document(s ) U Amph Not Detected NA [place] Scr [facility] Result created by [facility] rule.Substance of abuse cutoff levels:Amphetamine...................... .....1000 ng/mlBarbiturate........................ ....200 ng/mlBenzodiazepine..................... ....200 ng/mlCannibinoid........................ .....50 ng/mlCocaine............................ ....300 ng/mlOpiates............................ ....300 ng/mlPhencyclidine (PCP).....................25 ng/mlMethad one..............................300 ng/mlPropoxyphene....................... ....300 ng/mlPlease note: This is a urine screening test only.Positive results are not confirmed by a secondary method.Unconfirmed screening results are to be used only for medical purposes. U Yasemin Scr Not Detected NA [facility] Result created by [facility] rule. U Benzodia Scr Not Detected AB [facility] Result created by [facility] rule. U Cannab Scr Not Detected NA [facility] Result created by [facility] rule. U Cocaine Scr Not Detected [facility] Result created by Discern rule. U Opiate Scr Not Detected NA [facility] Result created by Discern rule. U Phencyclidine Not Detected NA [facility] Result created by Discern rule. U Propoxyphene Not Detected NA [facility] Result created by Discern rule. U Methadone Not Detected NA [facility] Result created by Discern rule. ID Date Data Source [id number] 08/03/2019 10:20:00 AM EDT [facility] Patient Name: LUZMARIA AUGUST SMRN: [id number] Computed TomographyACCESSION EXAM DATE/TIME PROCEDURE ORDERING PROVIDER [id number] 08/03/2019 10:[address] Head WO Zen [...] Name Value Range Interpretation Code Description Data [facility](s) Supporting Document(s ) ID Date Data Source {[id number] 08/07/2019 09:32:00 AM EDT [facility] [id number]} [facility] Patient: BG DUTTA S Age: 63 [...] Family/ Social History Medical history: ResolvedFrozen shoulder ([id number]): Resolved.. Surgical history: removal of growth in cervix.pe g tube.Comments:07/14/2013 12:31 EDT - Yuliana Waltonremoved 10 years 06/09/2013 15:00 EST - Shruti Goldsmith Lremoved years agort knee [...] 75.7 % Lymph Auto 12.7 % LOW [place] Auto 10.5 % Eos Auto 0.5 % B aso Auto 0.6 % Neut Absolute 3.9 x10(3)/mcL Lymph Absolute 0.7 x10(3)/mc L [place] Absolute 0.5 x10(3)/mcL Eos Absolute 0.0 x10(3)/mcL [...] psych admission. Will be alejandro [facility]red to [facility]. I personally saw and examined the patient. [...] pt chart Ebony snyder [address] [place] [address] [id number] [place] PPOAPRIL Z [id number] signed by Sherrell Mcdaniel DO 08/07/2019 09:32 EDTElectronically signed by Abdalla MBBS, Marwa H 08/03/2019 15:44 EDTElectr onically signed by Zen Edwards 08/03/2019 15:45 EDT Name Value Range Interpretation Code Description Data Migdalia rce(s) Supporting Document(s ) ID Date Data Source [id number] 08/03/2019 09:37:00 AM EDT [facility] [place] [facility] [id number][facility] Patient: BG DUTTA Age: 63 years Sex: [...] Supporting Document(s ) ID Date Data Source [id number] 07/24/2019 01:44:00 PM EDT [facility] Name Value Range Interpretation Description Data Sup porting Code Source(s) Document(s ) Lacosamide Lvl [facility] Reference Range:Expected concentrations of lacosamide in patientsreceiving recommended daily dosages: Up to15.0 mcg /mL.Toxic range not establishedThis test was developed and its analytical performance characteristics have been determined by [employer] Manny Martinez. I t has not been cleared or approved by the USFood and Drug Administration. This ass ay has been validatedpursuant to the CLIA regulations and is used for clinicalpurp oses.This test performed by:[facility] [id number] [place] [address] ID Date Data Source [id number] 07/22/2019 03:27:00 AM EDT [facility] Name Value Range Interpretation Description Data Sup porting Code Source(s) Document(s ) Zonisamide Lvl 10.0-40.0 [facility] This test was developed and its analytic al performancecharacteristics have been determined by [facility] Kiarra Martinez. It has not been cleared or approved by the USFood and Drug Administ [facility]. This assay has been validatedpursuant to the CLIA regulations and is used for clinicalpurposes.This test performed by:[facility] [id number] [place] [address] ID Date Data Source [id number] 07/19/2019 08:37:00 AM EDT [facility] Name Value Range Interpretation Code Description Data Migdalia rce(s) Supporting Document(s ) MMA Qnt 87-318 [facility] Test performed by:MEDOVENTAxel jewell [place], [place] [address]HwvkfxraCalderon Land M.D. Homocysteine Lvl <10.4 [facility] Homocysteine is increased by functional deficiency of folateor vitamin B12. Testing for methylmalonic aciddifferentiates bet ween these deficiencies. Other causesof increased homocysteine include renal charlotte lure, folateantagonists such as methotrexate and phenytoin, andexposure to nitrous ox walker.Nyla Puri, et al. Karol Loom [employer] Med. 1999;131(5):331-9.Test performed by:Carolyn [place]oV[place], [place] [address]VkeyqdyqCalderon Land M.D. ID Date Data Source [id number] 07/16/2019 10:53:00 AM EDT [facility] Name Value Range Interpretation Description Data Sup porting Code Source(s) Document(s ) Hemoglobin A1C 5.6 % <=5.6 NO [facility] 5.7-6.4% Pre-diabetes> 6.4% Diagno stic for diabetes(Summarized from [place] [employer] 2018 Standards)This test was performed using the [employer] Hb 9210 Analyzer utilizing Boronate Affinity. ID Date Data Source [id number] 07/16/2019 02:28:00 AM EDT [facility] Name Value Range Interpretation Description Data Sup porting Code Source(s) Document(s ) Vitamin D 65.4 30.0-100. NO [facility] Lvl, Total ng/mL 0 [facility] Vitamin D is an immunoassay performed on the [employer] ID Date Data Source [id number] 07/15/2019 10:48:00 PM EDT [facility] Name Value Range Interpretation Description Data Sup porting Code Source(s) Document(s ) Vitamin B12 507 pg/mL 180-914 [facility] ID Date Data Source [id number] 07/15/2019 10:15:00 PM EDT [facility] Name Value Range Interpretation Description Data Sup porting Code Source(s) Document(s ) Neut Auto 77.4 % 50.0-80.0 NO [facility] Lymph Auto 14.3 % 14.0-44.0 NO [facility] [place] Auto 6.6 % 0.0-12.0 NO [facility] Eos Auto 1.0 % 0.0-7.0 NO [facility] Baso Auto 0.7 % 0.0-3.0 NO [facility] Neut 6.5 2.0-8.4 NO [place] Absolute x10(3)/[facility] Lymph 1.2 0.6-4.8 NO [place] Absolute x10(3)/[facility] [place] 0.6 0.0-1.1 NO [place] Absolute x10(3)/[facility] Eos Absolute 0.1 0.0-0.5 NO [place] x10(3)/[facility] Baso 0.1 0.0-0.3 NO [place] Absolute x10(3)/[facility] ID Date Data Source [id number] 07/15/2019 10:15:00 PM EDT [facility] Name Value Range Interpretation Description Data Sup porting Code Source(s) Document(s ) WBC 8.4 4.0-10.5 NO [place] x10(3)/[facility] RBC 4.21 3.80-5.20 NO [place] x10(6)/[facility] Hgb 13.7 11.4-15.1 NO [place] gm/dL [facility] Hct 39.4 % 36.0-46.0 NO [facility] MCV 94 fL 80-98 NO [facility] MCH 32.5 pg 26.0-34.0 NO [facility] MCHC 34.7 32.0-36.0 NO [place] gm/dL [facility] RDW 13.7 % 11.0-15.0 NO [facility] Platelet 263 150-400 NO [place] x10(3)/mc [facility] MPV 9.7 fL 8.5-13.0 NO [facility] ID Date Data Source [id number] 07/15/2019 10:00:00 PM EDT [facility] Name Value Range Interpretation Description Data Sup porting Code Source(s) Document(s ) Glucose Lvl 95 mg/dL 65-99 NO [facility] BUN 23.1 6.0-20.0 HI [place] mg/dL [facility] Creatinine 0.84 0.40-1.0 NO [place] mg/dL 0 [facility] BUN/Creat 27.5 7.0-29.0 NO [place] Ratio ratio [facility] Sodium Lvl 140 136-145 NO [place] mmol/L [facility] Potassium Lvl 3.9 3.5-5.1 NO [place] mmol/L [facility] Chloride 107 98-107 NO [place] mmol/L [facility] CO2 22 23-29 LO [place] mmol/L [facility] AGAP 11 5-15 NO [facility] Calcium Lvl 9.8 8.6-10.0 NO [place] mg/dL [facility] Total Protein 6.5 6.0-8.3 NO [place] gm/dL [facility] Albumin Lvl 4.6 3.5-5.0 NO [place] gm/dL [facility] Glob 1.9 2.0-4.5 LO [place] gm/dL [facility] A/G Ratio 2.4 1.0-2.2 HI [place] ratio [facility] Bili Total 0.5 0.3-1.2 NO [place] mg/dL [facility] Alk Phos 86 IU/L 38-126 NO [facility] AST 17 IU/L 15-41 NO [facility] ALT 14 IU/L 7-40 [facility] ID Date Data Source [id number] 07/15/2019 09:54:00 PM EDT [facility] Added by Discern Rule [id number] Name Value Range Interpretation Code Description Data Migdalia rce(s) Supporting Document(s ) eGFR-AA 84 >=60 [facility] mL/min/1.[address] The CKD-EPI equation for non- Breann [...] Mild decrease* G3a 45-59 Mild to moderate [id number] 30-44 Moderate to s evere decreaseG4 15-29 Severe decreaseG5 14 or less Kidney fa ilure eGFR-ELIZABETH 69 mL/min/1.73m2 >=60 NO [facility] The CKD-EPI equation for non- Breann [...] Mild decrease* G3a 45-59 Mild to moderate [id number] 30-44 Moderate to s evere decreaseG4 15-29 Severe decreaseG5 14 or less Kidney fa ilure Procedure Social History Code Duration Value Status Description Data Source(s ) Smoking 08/03/2019 Never smoked completed Never smoked [facility] - 12:26:18 PM EDT tobacco tobacco (finding) [facility] (finding) Center Smoking 08/03/2019 Never smoked completed Never smoked [place] [facility] - 12:26:18 PM EDT tobacco tobacco (finding) [facility] (finding) Center Smoking 08/03/2019 Never smoked completed Never smoked [place] [facility] - 12:26:18 PM EDT tobacco tobacco (finding) [facility]finding[facility] Smoking 08/03/2019 Never smoked completed Never smoked [place] [facility]do [facility] - 12:26:18 PM EDT tobacco tobacco (finding) [facility] (finding[facility] Vital Signs ID Date Data Source UNK Name Value Range Interpretation Code Description Data Source(s) Diastolic blood 82 mm[Hg] 60-90 mmHg Normal (applies to 82 mm[Hg] N [facility] pressure non-numeric results) - [facility] Systolic blood 124 mm[Hg] 90-130 mmHg Normal (applies to 124 mm[Hg] N [facility] pressure non-numeric results) - [facility] [Minimum Data - [place] Set] [facility] Center Oxygen saturation 100 % 94-100 % Normal (applies to 100 % BemDireto in Blood non-numeric results) - [facility] Postductal by Hospital Pulse oximetry Center Diastolic blood 62 mm[Hg] 60-90 mmHg Normal (applies to 62 mm[Hg] N [employer] [facility] pressure non-numeric results) - [facility] Systolic blood 116 mm[Hg] 90-130 mmHg Normal (applies to 116 mm[Hg] N [facility] pressure non-numeric results) - [facility] Respiratory rate 18 br/min 14-20 Normal (applies to 18 br/min [facility] br/min non-numeric results) - [facility] Heart rate 64 bpm 60-100 bpm Normal (applies to 64 bpm [facility] non-numeric results) - [facility] Oral temperature 97.1 [degF] 96.4-99.1 Normal (applies to 97.1 [degF ] [facility] DegF non-numeric results) - [facility] Oxygen therapy [place] alth [Minimum Data - [place] Set] [facility] [place] Oxygen saturation 100 % 94-100 % Normal (applies to 100 % [facility] in Blood non-numeric results) - [facility] Postductal by [facility] Pulse oximetry [place] Diastolic blood 71 mm[Hg] 60-90 mmHg Normal (applies to 71 mm[Hg] N [facility] pressure non-numeric results) - [facility] Systolic blood 109 mm[Hg] 90-130 mmHg Normal (applies to 109 mm[Hg] N [facility] pressure non-numeric results) - [facility] Respiratory rate 18 br/min 14-20 Normal (applies to 18 br/min [facility] br/min non-numeric results) - [facility] Heart rate 67 bpm 60-100 bpm Normal (applies to 67 bpm [facility] non-numeric results) - [facility] Oral temperature 97.5 [degF] 96.4-99.1 Normal (applies to 97.5 [degF ] [facility] DegF non-numeric results) - [facility] Respiratory rate 18 br/min 14-20 Normal (applies to 18 br/min [facility] br/min non-numeric results) - [facility] Oral temperature 97.7 [degF] 96.4-99.1 Normal (applies to 97.7 [degF ] [facility] DegF non-numeric results) - [facility] Oxygen saturation 97 % 94-100 % Normal (applies to 97 % [facility] in Blood non-numeric results) - [facility] Postductal by [place] Pulse oximetry [facility] Heart rate 62 bpm 60-100 bpm Normal (applies to 62 bpm [facility] non-numeric results) - [facility] Diastolic blood 74 mm[Hg] 60-90 mmHg Normal (applies to 74 mm[Hg] N [facility] pressure non-numeric results) - [facility] Systolic blood 110 mm[Hg] 90-130 mmHg Normal (applies to 110 mm[Hg] N [facility] pressure non-numeric results) - [facility] Oxygen therapy No He alth [Minimum Data - [place] Set] [facility] Oral temperature 98.1 [degF] 96.4-99.1 Normal (applies to 98.1 [degF ] [facility] DegF non-numeric results) - [facility] Oxygen saturation 95 % 94-100 % Normal (applies to 95 % [facility] in Blood non-numeric results) - [facility] Postductal by [place] Pulse oximetry Medical Ce nter Heart rate 75 bpm 60-100 bpm Normal (applies to 75 bpm [facility] non-numeric results) - [facility] Mean blood 80 mm[Hg] 80 mm[Hg] [facility] pressure by - [place] Noninvasive [facility] Diastolic blood 67 mm[Hg] 60-90 mmHg Normal (applies to 67 mm[Hg] N [facility] pressure non-numeric results) - [facility] Systolic blood 106 mm[Hg] 90-130 mmHg Normal (applies to 106 mm[Hg] N [facility] pressure non-numeric results) - [facility] Oxygen therapy No He alth [Minimum Data - [place] Set] [facility] Respiratory rate 18 br/min 14-20 Normal (applies to 18 br/min [facility] br/min non-numeric results) - [facility] Oral temperature 98.4 [degF] 96.4-99.1 Normal (applies to 98.4 [degF ] [facility] DegF non-numeric results) - [facility] Oxygen saturation 99 % 94-100 % Normal (applies to 99 % [facility] in Blood non-numeric results) - [facility] Postductal by [place] Pulse oximetry Medical Ce nter Heart rate 79 bpm 60-100 bpm Normal (applies to 79 bpm [facility] non-numeric results) - [facility] Mean blood 92 mm[Hg] 92 mm[Hg] [facility] pressure by - [place] [facility] Diastolic blood 77 mm[Hg] 60-90 mmHg Normal (applies to 77 mm[Hg] N [facility] pressure non-numeric results) - [facility] Systolic blood 122 mm[Hg] 90-130 mmHg Normal (applies to 122 mm[Hg] N [facility] pressure non-numeric results) - [facility] Respiratory rate 16 br/min 14-20 Normal (applies to 16 br/min [facility] Health br/min non-numeric results) - [facility] Body mass index 17.6 kg/m2 17.6 kg/m2 [facility] ealt (BMI) [Ratio] - [facility] Body weight 46.75 kg 46.75 kg [facility] h Measured - [facility] Body height 163 cm 163 cm [facility] h - [facility] Body mass index 17.6 kg/m2 17.6 kg/m2 [facility] ealth (BMI) [Ratio] - [facility] Oxygen therapy [facility] [Minimum Data - [facility]] [facility] Patient Treatment Plan of Care Planned Activity Planned Date Details Description Data Source (s) Prazosin 1 MG Oral 08/12/2019 11:09:00 [facility] - Capsule AM [facility] olanzapine 10 mg oral 08/12/2019 11:09:00 [facility] - tablet AM [facility] Lorazepam 2 MG Oral 08/12/2019 11:09:00 [facility] Tablet [facility] hydrOXYzine 08/12/2019 11:09:00 [facility] - AM [facility] Vitamin D3 08/03/2019 10:52:00 [facility] - PM [facility] Vitamin D3 08/03/2019 10:52:00 [facility] - PM [facility] zonisamide 100 MG Oral 08/03/2019 04:21:00 [facility] - Capsule PM [facility] zonisamide 100 MG Oral 08/03/2019 04:21:00 [facility] - Capsule PM [facility] clobazam 20 MG Oral 08/03/2019 04:20:00 [facility] - Tablet PM [facility] clobazam 20 MG Oral 08/03/2019 04:20:00 [facility] - Tablet PM EDT [facility] lacosamide 200 MG Oral 08/03/2019 04:19:00 [facility] - Tablet PM EDT [facility] lacosamide 200 MG Oral 08/03/2019 04:19:00 [facility] - Tablet PM EDT [facility]
[2020-02-13] MEDS ORDERED: ONDANSETRON 4 MG/2 ML VIAL ONE (07:18)
[2020-02-13] MEDS ORDERED: KETOROLAC TROMETHAMINE 30 MG/1 ML VIAL ONE (07:18)
[2020-02-13] MEDS ORDERED: DEXAMETHASONE SOD PHOSPHATE 4 MG/1 ML VIAL ONE (07:18)
[2020-02-13] MEDS ORDERED: SUCCINYLCHOLINE CHLORIDE 200 MG/10 ML SYRINGE ONE (07:18)
[2020-02-13] MEDS ORDERED: PROPOFOL 20 ML ONE ×2 (07:31)
[2020-02-13 08:48] VITALS: TEMP 97.9
[2020-02-13 08:49] VITALS: BP 116/79; PULSE 70
[2020-02-13] MEDS ORDERED: ONDANSETRON 4 MG/2 ML VIAL IVPUSH PRN (09:21)
== END 2020-02-13 08:51 | disposition home or self-care (01) ==
LOC: FECT 06:10
PROVIDERS: ATTEND Psychiatry & Neurology Psychiatry
PROC: GZB4ZZZ Other Electroconvulsive Therapy (ICD-10-PCS; principal; 2020-02-13 10:30)
DX: F32.9 Major depressive disorder, single episode, unspecified (principal)
CPT/HCPCS: 90870; 94760; C9803; U0003

== ENCOUNTER 2020-02-20 05:55 | Day surgery (SDC) | payer OTHER ==
--- OUTSIDE RECORDS SUMMARY | 2020-02-13 11:19 | XMS ---
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 EDT [facility] Name Value Range Interpretation Code Description Data Migdalia rce(s) Supporting Document(s ) 2018-nCoV [facility] RNA XXX ELIZABETH+probe- Imp This lab was ordered by [facility] and reported by [employer] ID Date Data Source [id number] 08/17/2019 08:19:00 AM EDT [facility] Name Value Range Interpretation Description Data Sup porting Code Source(s) Document(s ) Neut Auto 57.1 % 40.0-70.0 NO [facility] Lymph Auto 29.3 % 22.0-44.0 NO [facility] Lamb Auto 10.5 % 4.0-11.0 NO [facility] Eos Auto 2.4 % 0.0-8.0 NO [facility] Baso Auto 0.7 % 0.0-3.0 NO [facility] Neut 2.3 1.8-7.7 NO [place] [facility] x10(3)/[facility] Lymph 1.2 1.0-4.8 NO [place] [facility] x10(3)/[facility] Lamb 0.4 0.2-1.2 NO [place] [facility] x10(3)/[facility] Eos Absolute 0.1 0.0-0.9 NO [place] x10(3)/[facility] Baso 0.0 0.0-0.3 NO [place] Absolute x10(3)/[facility] ID Date Data Source [id number] 08/17/2019 08:19:00 AM EDT [facility] Name Value Range Interpretation Description Data Sup porting Code Source(s) Document(s ) WBC 3.9 4.5-11.0 LO [place] x10(3)/[facility] RBC 3.39 4.00-5.20 LO [place] x10(6)/[facility] Hgb 10.5 12.0-16.0 LO [place] gm/dL [facility] Hct 31.2 % 36.0-46.0 LO [facility] MCV 92 fL 80-100 NO [facility] MCH 31.0 pg 26.0-34.0 NO [facility] MCHC 33.8 31.0-37.0 NO [place] gm/dL [facility] RDW 13.3 % 11.5-14.5 NO [facility] Platelet 222 150-350 NO [facility] x10(3)/[facility] MPV 7.8 fL 7.4-10.4 NO [facility] ID Date Data Source [id number] 08/16/2019 08:30:00 AM T [facility] Name Value Range Interpretation Description Data Sup porting Code Source(s) Document(s ) Magnesium 2.1 mg/dL 1.6-2.5 NO [facility] ID Date Data Source [id number] 08/16/2019 08:30:00 AM [facility] Added by Discern Rule GLB_ADD_GFR_BMP Name Value Range Interpretation Code Description Data Migdalia rce(s) Supporting Document(s ) eGFR-AA >90 >=60 [facility] mL/min/[address] The CKD-EPI equation for non- [facility] rican individuals is used to calculate the [...] Mild decrease* G3a 45-59 Mild to moderate kxiazwxaN8l 30-44 Moderate to s evere decreaseG4 15-29 Severe decreaseG5 14 or less Kidney fa ilure eGFR-ELIZABETH >90 mL/min/1.73m2 >=60 NO [facility] The CKD-EPI equation for non- [place] [...] Mild decrease* G3a 45-59 Mild to moderate shemsbuxS6j 30-44 Moderate to s evere decreaseG4 15-29 Severe decreaseG5 14 or less Kidney fa ilure ID Date Data Source [id number] 08/16/2019 08:30:00 AM EDT [facility] Name Value Range Interpretation Description Data Sup porting Code Source(s) Document(s ) Glucose Lvl 97 mg/dL 65-99 NO [facility] BUN 13.0 7.0-21.0 NO [place] mg/dL [facility] Creatinine 0.66 0.40-1.0 NO [place] mg/dL 0 [facility] BUN/Creat 19.7 7.0-29.0 NO [place] Ratio ratio [facility] Sodium Lvl 136 136-146 NO [place] mmol/L [facility] Potassium Lvl 3.8 3.5-5.1 NO [place] mmol/L [facility] Chloride 104 98-109 NO [place] mmol/L [facility] CO2 23 17-33 NO [place] mmol/L [facility] AGAP 9 5-15 NO [facility] Calcium Lvl 8.3 8.3-10.2 NO [place] mg/dL [facility] ID Date Data Source [id number] 08/15/2019 04:31:00 PM EDT [facility] Name Value Range Interpretation Code Description Data Supporting Source(s) Document(s ) Physician No [id number] QKJeL [facility] / [id number] G9iag Galt [id number] [facility] 0H5lEBvD6D 5cGUv Center Ca8cxN5IQB NlRm9 ruK3QYCp8N XRpY2 DkPZ1wc8Rg bmcvV 7puMI1nrGJ uY29k sS6kAj8QRD 5kb2J qCjIgMCBvY moKPD wvRmlsdGVy L0ZsY UJdPRXub5R lL0xl lbs8cKIhCG 4+c3R yZWFtCnicK +QCAA DkDIfLXV4i c3RyZ WFtCmVuZG9 iagoz JWLop1VuKm w8L0Z bhRLllk3Jo GF0ZU TrY83yCR9H ZW5nd GggNjk+PnN 0cmVh mNc0eDWW7U rk0o/ INFAwNFAIS eNyCu EyVDAAQkMF I1MLP XNTBQtDPQs jhZBc Dz3EwRDCtL h+Rad oCvhLz6xKX yAXAL HtOp8HRU6b c3RyZ WFtCmVuZG9 iago0 WWMre5KtBc w8L1B bJ6LZx2ToP 1VzZU 5vbmUvTmFt ZXMgN SAwIFIvVHl wZS9D GCDpkZ8dK1 91dGx pbmVzIDYgM CBSL1 OtN6SeQInn MCBSL 1ZpZXdlclB yZWZl blAnE7GmUM ggMCB LDd6WHU8lg 2JqCj cgMCBvYmoK PDwvS 7lkr0e9LVV gUl0v EZwoIE5WDZ dlcy9 Ul2PmdBOoD 0lUWF MhNl1uPloi Pj4KZ T1dr4DmXcZ gMCBv YmoKPDwvQ2 91bnQ fXH7ZmGDsv CAxMC AwIFIvTGFz dCAxM CAwIFI+Pgp lbmRv YmoKMTEgMC BvYmo OIc2VY1CYL XNlZC AxMiAwIFJd CmVuZ J7kydrjDxI wIG9i sen7TN7KfK x0ZXI vRmxhdGVEZ WNvZG HmKKUoX6Yu IDI1O TYvTiAzPj5 zdHJl XN3RzEuoir dUU9k Wh8+9N71Qk hCKlN LzpVQKPM94 SJEuK CatarinoJESindhu iNkRU cERRkaYIMi jggKN DkbEiioUBU bHrBB sP4TEvBWxV SWStG d+8ee/Nm98 f935r i01H8Sdjno a6AJD 8gwXCTFgJg AyhWB Hx56YQjDij YAcBD SNPI5hI4AO zs0IW +PUSaTB07Z xsmRP 4I844KtC5+ yrTP4 zBAP+flLlZ IjEAU JiM5/L42Vw ZF8k4 PVecJbdPyZ i2NE3 OMErOIlmCM laTc/ KdT9y2uEWN OfMyh WxTz5OS3xF w5Nwn 7415Wa1EcM AZF+c I+LkyviZjg 3RJhk DGb+SxGXxO NgAok adb6jVEDGc tY5Io VqYr28tX3I jJX/D UT7dKmeKAE 8XOzF ouEiSniBkm XFOGj ZMTi+HPz03 ni8XM TA63eTPwUi iZGVk k5AIHQd/8W RR5bR myIjvYODk4 MG0tb z3g5J2l/Ju S93aW XoR/7hlEH/ jD9ld +qS8SpBEkx dn6h2 1jPIWd9yKF u/2Hz WAvAIqyvnU OfXEe unxeUsTiLG crq9z dSTyHs5xnZ +jv+p 4Lz5McyZ7Q vt3v5 TW845J4omN xQ143 sjN4dvYMqU 7icPk M5p+H+B8H/ nUeFh V2OB0TB5ZN RMumT CBMlrVbyBO IBZlC rwE2b6z0I3 P+pNm 5lona+BHQl lgCpS RzHC7zBHed ESAJe 8Zr8R38W9Z [place]/nN u7UTnQ20r0 L+fVe 1ZB5RFfO/j mNHRD Q8YhCG6Ax8 WgI0I ABFQAPqQBv oAxPA BLbAEbgAD+ ADAkE oiARxYDHgg hSQAU QgFxSAtaAY lIKtY CeoBnWgETS DNnAY cWVr6YT3Oo 6By2A G9OHIAZ1co CnwCs xAEISFyBAV Uod0I EPIHLKFWJA b5AMF QxFQHJQIJU NCSAI VQOugUqgcq obqoW boW+godBq6 AA1Dt 4LXtVL3HGg HIzAJ psFasBFsBb NgTzg IjoQXwcnwM jgfLo H0gDAnQ8bB 7oRPw 3sxFNoKR9X nEYAQ ETqiizARFs JGQpF 4JAkRIauQE qQCaU UcrS1qE4xL SJGny FsUBkVFMVB MlAvK RoPQ5bIFcJ ahNqO qUQdQnag+1 FXUKG jG3MQZJkaw zdHO6 SX2YQdPhVx uRleg o2Vo8DHtZv Q4+hU Yx1MeiCTHJ H9MHC YVswKzGbMb 0445h RnGjGGmsVi sOtYc 64oNxXKwYm wxtgp 1LHhPiwR7f n2DI+ W9aTT2G1x6 Togrx FXgWnAncFd wE7gZ vBLeEO+MD8 Xz8Mv xZfhGfA9+C D+Suzy XmU8wZnfSE QiphL kTI1DS0U9i LeEEk EvWITsRwoo C4hlh YYMT2Osssf iVRSG YkNimBJCFt Ie0nn CRaVw4wy0r GZA9y DOaN6jKqJr 8h3ye /UaAqWCoEK PAUVi vUKHQqXFF4 pohXN SP1BBuitB4 YoXhE cUjxqRJeyU iJrcR CNkNAf8AE8 YbStD UK5FD7XHxD ebNyi /VR9MaFNQF I4kPh UYoo+yhnKG NUhKp WIYF31BWDD upZ6j gNQzOmBdBS aaW0b 2iDtCkVioq dSrRK nkqNynEVKR 2hG9E A3Yr2Tqxa+ nX6O1 VhFJ9Gbthu 1TbVK 0af3liiput x1UrU 5uRS5W4dL4 R91NP Sz2h4pu/TQ GmYaY Et6Vmz0Wsi 8XQOb B8URU3aggl H59zW rRXANRC3P8 ju0xz RgCxQ5wVMn tKq0j vc5LLfpt9v naq9Q /jL8wWQUqb NR6Cz Q+ekzmOGCs OTkc6 qGUTzyzJ0p f11Jb q9vfQ2D1lW elF6h Davjwl1Qdf s/ST9 Hfq9+lMGOg YhBgU HxIc8HgSHY MMUw1 2G/YavjYyN Yow2G HUZPTJWMw4 wzjdu Et1wYcEaK3 lm0mB yzRRjyjJNM 91tet pVPwG9LqJt MRsyh 42gcCFqy65 HLdAW ThZCiwaLG0 wS05O Fi7lfzqjGE YMtCy 01WM8TBJnS W22z6 mz5fF7hkR3 daH3H cgHXzNMt55 Pzq62 TJif7aelaO PJc37 af72iVkS6u bse32 4S4371fT2L /wb7X /tLUw2UAix 1h0tH HIwCb7gRIq 8YKY2 9osPgZF7q0 rXY65 jMC4lEI1Ln Y+RcX iiosP0aSv8 nG8/j aYtmJxvr7w lzrXa YvRZiHx86k Unddd 457g/sDD30 PnkeT r2TmnUpm70 HPZ17 WXiKvDq/Xb Gf2Sv Spi3Btg3xG e9CH4 hPlU+1z31f PN9m3 5PrIh35xou 8pf7R /kP82/xsBW gHcgO aAqUDHwJWB fUGko DRF3OWTqy4 CRcE9 KFTUADa0nL vzDec A41bJexIQ9 O2h98 DQf9mHzA+O CQ8Lr wl/GGETURD Rv4C6 YMmClgWvIr 0iyyL mKTjWEyI7j xWjE6 Kbo1/HeMeU x0hjr FPPlb1W46r TxHXH Y+Hr27jpgw f6LNy 1lToDZpW21 foi40 J0qo1c5ssk vvj4E sUlnCVHEtG JMYkt xq80fJaQmj TSgKW 5L8g1eE0e0 hOeB2 0Ez9Jrrs/n TyS5J oUyFLx1Ml4 ePJni iiBY0kQZRa QLnqf 1m3lxwn7HN duf9i c4En02L3mV mHFUS BGmCfsytTP zMoez qEUNc1UXzS ftXDY dJkG2YDRPc 7K7xT ZOl5KSlZTw XjKa4 5ZTk/MmNzr 3SJ5y fnKvGEmZ2f 3LJ/J 9879egVrBX dFboF avwcX4okvP +lXQq qWrelfrry5 aPb7G l40XvAE8wG t/KLQ gTJ77vO7uX U+RVt LxppK8svwh ixWKR kZ8HnzcoNp I2ijY TIhc2pfxGD 9LeCU EK34NP6cgg +Zuvv yEoRiYS58t krRls PyvbB2LaUj h1uvb 3LcdKFcuzy 8f2x6 gvEXQK9uDz pc7l+ j0NMTDOdvV sEuyS 1oZXNldZVC 1tep9 oAa2GT2CLC utZu2 e6ta3qiyk6 PHY01 faSOwy584m YO/Ne r/6zgajhop 9mH05 +g40Xkv5p8 36url Ql1w06yX+4 X7pgY yUto7Mxo4o mi1lr XCrpHXyYML By994 e3Xuiqgru4 e3lx4 ChySHHn+b+ O31w0 GHe4+wjrR9 Z/hdb Ea1w1TF1zd eOdWV 0iXtjusePh p4tLf Wosndo2nf9 x/TPV VhGWY62WxD iaITn 07mn5w+lXX q6enk 72X5D6poiE k9c60 vvG/wbNDZ8 +d8z5 3p9+w/ed71 /LELz njRKyOd6Fq kcKlz kD6c3ly9Ks oGHQY 3jlqJun45G e4Znj z45ty4geFA va+eu xVz9gKK/JH h61HX z07MwOO0bm v56Fb 8vpq4o11E4 FlzF3 864K9KvDz4 mvcbf aZ7yA5cZU4 +6j06 9PDUrgmf2L EnP2X /2U297KR6A cWEzk KcV2iWslA3 Jy8/X vh4/EnWk5m nxT8r /8f4wWGEe2 94/DI wFTs1/lz0/ NOvm1 +ov9j/0u5l 73TY9 T4ZVs2jMkd 8UX9z 4C3rbf+7mH cTM7n ohr8nX8c+6 PkY9P Xom7kFc32Q 94Tz+ wplbmRzdHJ lYW0K UA8pd1SgWs EzIDA ds8MyZgo6H 0NvbG 6lI0LwT5Me RGV2a LUsV6EchZ6 IZWln aHQgMjkvU3 VidHl tWK0MlPGfL S9GaW v0LQDkYqoj dGVEZ WNvZGUvVHl wZS9Y K5LlXCL4N1 dpZHR zZAQ7Tl7WQ W5ndG ggMjgvQml0 c1Blc kNvbXBvbmV udCA4 Lb3lcFPbTD 0KeJz twTEBAAAAw qD+qW rHJ1IVMTRA AB4G+ 2OKjwplbmR zdHJl UV1ROI8lg6 JqCjE 2YPHbl7CfM jw8L0 XieT9cA5Ns Y2VbL 7vVA4Kxw4G kIDEy MMDeLx8eCT VpZ2h 7KGU4T6H5X nR5cG EnZQ3oS0Ph Rmlsd NKzP4RgJFL lRGVj v4EuJ7Q3yC UvWE9 jmfMrrU6EV WNvZG VQYXJtczw8 L0Nvb HVtbnMgMTg yL0Nv pQ9srrTrF9 ByZWR iM1XvnkWgV S9CaX YpCZPbQ19f cG9uZ W50IDg+Pi9 XaWR0 aCAxODIvU0 1hc2s gMTMgMCBSL 0JpdH HNWMMGs36l b25lb dFbRJ1HcwC lcnBv lDQ4VQD0kp VlL0x arbw7zSW8S DQ1Pj 3hmYTzLB4U eNrtm wlUVEfWx2/ iJHMm 0bhGWRqatW VzwSW OE+PESEKMi iua0T gaYjQRjQIa AiKgQ NN00/vCqoC ANoLs l1RJvizATb FlURF QUUFAQJRFY Kq6ka HejitTV06D d97R4 +t671Xd+tW 9/3vr EV7bnOBRZ4 r5x2e qH5f7YQHNc eTElf KHr65/12/X xaRXh YPJqKcB4Pq 4qOf/ chEr2gF5GJ M/NQv 29Cl7JaBZ8 zc9NW mZV0/Ps75G kRfLF Wp5JLqRoSa Eoj8X zP5UPldUlO z+1fe iS3qOYfxgU ChRQI yNSFdhoz3k uL3+1 5zMt9CkDtQ pJZWN Y96/hqbHqw +Gw6S iNM34ldpCM ZbxM0 394EMHUHTZ 6hCDy V0rWguejTR Lc0Cd Mis8hHhL3V K8rCv 3BjZqbHmam le12v UlxUGPnw1j 7uRl3 hGppTdrGl5 1/+qb Wr/YC4RyPO D0AkN J5ZLH7uDi6 ARQp4 SgZIS4KYW3 5ojYe afADFeYQia fzJT4 aYtDLEwmgx I5ID7 /zUZE/JeZU xzo8E ENc8YgRCts XS6eJ pIa7p92q9O Xja2P BKdTb8tA8B LudVk /Ka0oW9D1c hyRlQ eigcAEJWpq boXUB mT/DCAwYDr N1f/3 NwWIoWbsRY R2shC 0OehkBOYNc 7/2xg MP5IGp6QnG 9tfcd w7Xk2LZCYw RL/YJ dzqnyrrXVp COPN/ MZcAcz2e91 SOLOMON+6 AG58fF0mLD EaCgk 7GJ9nhhq1x p2ujn WOmIuPrlix Gh+uc M4ojNyTPTB QBl+u vv/bJdUaDH k4rIC aeYeCg23c6 h615u PHKNy4iCLn dr60G IRXH7PgMZ8 giIFJ xzMZoxq4B+ zGkJM JXb4J58ISE 5/X+F yV85Vkzx4y 4YUGM zZ6WXQ5aF5 UKECH sMETHcGgT6 yKVxP fXvXmz06G5 BRXCk l92Csv+yfO ymJoC KO+uxShi1P 4vInz dqjPaEgQYV JlrDF Hsl4xO+0cM 90FqQ jrInUHKBqW TQpxt jT0rgoCUdD SPzCJ jhjqXoLIHh 1rD97 lk/kdPRud0 hNS6z gurRTe24CI 7vNOg ygOhGWHUiL vOa/N S40m6JhMgk SwkUl UOZ1D577q2 UiCGX 8+5iSZcTlF gwbhF 7PKK49Brvs m+8L9 ESorf465fJ ZtPDU TCLDePtYJL 9B0s8 ZdhJ6oM5z+ 0/dlF gwIaPbGDCY TBgfr U33D+uoOtZ W298I cfCNNGIZgt I64QW 8QfkBDv7qq Wn3Bh YKURpX7RH2 w+Xsa 3GAkDn0Ko4 xxCY6 XFw2ai6oEB 2KTL0 nUGwq8d0+K zrvwn QgbKyc0yk9 EvF1f IgEphQ/JV5 nKl1M r4+H8F2Xcj +UNKq Awno/OKnmN OJN4Y srwTMQ4T8O mdh4j ZYFXH8q01K JM40K imwTE1ZHT6 5OGzN 3rOn9yS8Jc BywRk SvB1gxsWgi 1Wb2k SDtiuoc+Bj mkTjl eliQz8FBr2 TgBID sW9xkckPL1 p4pMM PM4kcdiQS4 dwNJM NUI8uV9Rcp GLRor 98BBRcgOsd klImv dVLjL8I9cK Q6ifx u/FUuZK1R4 XBIA1 0ezPEgrAja 8GuvG ZEu8Yu+Joy IzNsW RRmC2sk2Cq eJJr6 gzg98P1Kbu ZiMEp juBDMHhedn 3U9BA +XegtlbA+Q PNN09 3aDCABLHyT dvhEC rsH8sgtN29 qBGO8 V8RTSmQzG5 aqt9L YjN8DdrYUp 538a/ qOJfmV6ix7 28ZSH KFa9F1qjqP MHYvA t/CIDJzmg+ 8MIdY kx60O+g6Ya iGP6V mC6Dr1ArTk UJFN1 CA7ZybY2IM Wqcj7 8ADKYAR09Y 4xOVL 8nNZBdmcOG glspo zDK4ypmtIE euDDN FcX1qQmCiW GaCCk r/5Tsg9Zh6 lJJ/A zSYoOB6+0G /DgA1 UutniDt6Hu 7fNAD KKQFh3Rtmv empGB Eb/uUREEE5 s4YL5 eQlyTCMLI5 8iTo7 +QiRBBW018 tfnEK TuE4+l+Wla l+UiC r+Rrrr56Mu FXTZu IIgwyV/rosales E3zIE cfGIQ4hGfF YOu1A hhmxwt24gV kPWCE 3tjZsFZXeR 60LO8 gP6dzIFv+w qod7E iIwkV+d4TD E6MXO 9UNPkVP+5p vfU3R jy7j/5UkcF RCqSb 3G1eiIZUOx uDczk 1PKKWr1NtJ wNH9r O+vbk6eQ/h 8hAIb bLbMErQUSN VVxxf +ivlXfrUAx Ck2HB SpMrasznYN q02B5 nC+VEZLtDC nbj+o J/1nC2GSt0 8Cwer AxECstrxDJ cApFx i/gd9DG7IY l9I2E 3yCU91y68d XMHyy Ad/janaImW 8Zk3y yrrRo+IHt/ EMsrr fFl9aFWAss U6/aL Jsk2de84q5 FH5xR egJYgG4+h9 SXq/C b1x6aK4AT5 XWa3d BT8MR32dgi oVIkJ bpfQI5gmXB Yf3X/ tzciGCchlc xGOFn i+II0DmU9T IGPD1 PtN8MvcAPL 1NiSx Fla42lstQQ pGrt+ 4DgYZMtHJ/ tIzaJ xtZPKV5oY3 UQHEY BuIyXU0HST 65ENH xmEUWF15u9 VICzc q9nMigJkl3 JTWS4 r+tbZNtpFg HjVvo O6NjL5yg7e oRkZX 2uwYS1ByxH yILuW IvwhFekduL pIq8C P+roIk5Wd0 4mjoM Io+r88TeOq SIo88 uWJH5MMHi+ epnXZ 2OvulAYmIF o0Ttu /8CQhwxnu5 qMzQ2 PQ0owe4OON 5Aruq aCnFSgDoxy QnAEc KTuTfNb6sp vh3Ka ZY9ya1R7Ef YJ6fk Vmw+EgmGXO yl/tq UbNg7d0wBl LUTZM tHcBd3o+K9 LV2e6 A1eupBR3HC Fkc22 yIb2MODJIR 8y9bt 91Y6GWC/Gp kYnOA 126PI0uOeK I1+Cp laZ357gc75 3IgrG mhhwMeGE0g 2jrdg QiK924tBOj Alamg tytt74lrrJ vxAit fIhp0LIlHg D0Uh4 Im+3/mCMnM OcYey ZDm43b08Tq V8AkY 0mn2nKLbvX dWdUd nMZhujQN6R IMSgk TeuNso6CyC AiOaN FRGejyIsQm QWldf J3+tqtuxOX C+D9w 99Ynampa+r NnL97 cblq+7q8yI mYIiR EYLbnJCO+v HURZQ pe+oj7ooo3 L+VFb FNeHQbdU88 UM+qj z8MoDDo5Jp U71wu ym4nT7h0RB IdD2o qB9D3XSENz KLyqt TkfSeCSq8z CXJhG AXVKbeOjwX JVpEX mjAKRh4+ei E1pzX 15RJLlnXKC qBapS U355yEe3+S ccizn kYqczxwkUB xFiBD vSlRiGEx1q +0dvb OxFtHhmTkl 97zQ0 cBimKjVC4N Y2J3M NMk7rv7mwp 5vk13 l2BGPxONVi 8DAQ8 GMftkq3uw9 YRoZI zAGkfTL37w FiL5H YcuPSFfXM5 z66/C 2OyS+JCLfO 56X09 CrLMPxatbm Oh6/O LYtY1MKrF6 NzQkd YIi8cKISYY 7i4GG duEOe7AXuI JH+PP Zh4EPn1YLk PI8mT z+Sr9kejcw lyF9b hOFVrcHyjS ocwD0 Z9dPo5+iX0 iJa66 Yx7SJ8VZCO hZZ4e eQtbzOnRBw U1Vh5 JZJVCjAUlR wI7tI QicaIaEmhB xRoSM HkLlxS2GqY sFiMS OmwSe/3R5P kXo0d oErBjoEkOV Xup3I Ap4YmdfUVq y2S3K E14pbTTJxf kPFnl ZQtmPoWcbX G3mNQ GmZCMS1E4c iyHb0 zR+sfj8yv2 2wJlj 9iGMcsrtG6 AQkzD z8zQjAo7oB xC8gT G7KKVN2TzT 0+hYQ Lniof4xjR2 7yzl3 VeH8Rm3fjl tl6mX Fmq9fp7Irw Z1EEB 0RruEilE3o YYQqR B0e3IhbmQR oYgZf W9wPYVJQVg rPe6B 90PH0iUznm ZiOjx r9GPoc0jF3 eU4TS WyL2dG8g9R m4POM tZ0eie35hX ngcoU IgrAjb78Mo t/LGf Dn+On8XyPP O+CJS q7RtJ7m6YO lStyS 0bqDpWVX7C Ip/7X KZjncXAh3Y 9yksD GvJ8rPjVik uax6S c/p0sdRN/L FNUXa UjstoyUvxh 4uoDw 7r79Uew4rl GKyX/ hsRPX+2Nxv k3Wli f8C15iQD2P CtrHh 39lODehl4/ aRftQ eTguiFKbvG eUy8K tKAstCLjsk vwR6Z aHEGYJKnwi ejhRG Ztg+TXkN/a xWC3R GLvYyQNqDL 107Ba YZgK5hzEhH wAJCH F/Ebr0CrEb Z1yMh M+vsf0Iok/ LXZ3d oA2y9rjVET brBOA yIAZlCvlD6 Tbk0j BypHItGJdK K+sK6 py2Y6sXvmt jVK8m PQyvFmIFow 23YJ5 wWw70Gt5c5 Q5goy uACX9LdG+c 4htff G957c2h6BL 5YA6+ IPuAL97mZU wMY0c KLntgnemkD ZYMKg F2RqhVYZd4 FlrE9 Y74U6mJlt2 yVpuH mqlj5LNyVj uy80j rXApuv+73M LrDyz ZKRM/98S7L agN8j ckqplTQmD8 1YHvO MBMwR/akHh 4AxMJ cqcIluB9W8 rhIye KvnRN05QQ7 puOmx a7gbZRy6Hv FAXH/ Qe32UXWAce q9AXb zuhsEFbceX iIk05 s68u1pYHqU bzQZ5 gzkuKzb/Y9 ra0NK VYn/HGXGl1 1lf/O XrcCaG9WGA Gf0EC P7vDqDYRrQ XFR4v wgzLdfQE4w DT5Xb R00AqOyuBV wLKBr r/p0RAT0CB fISUl jBgLN9CO22 WhvSE xM23MUs03U A/6/d smTLIf6rAV TL/Oz e+/oXJjugs erzcM MRTJXa4olv 97Q/L t1DqDBx3o+ kQVTX UGIiT5OLEK OuIJz Lg9epPCxl4 DGx6Z Wp8BEJ/joq PH+8M 6XpAAQcz1I RApMd Q3MAq1k6jJ FvmYj 0hKB3SJc4h 1PHku C09ZVub+oz ppq5G P9SI48PWK5 /SigJ DsNk8cFIft vRP9c azlI+mUX3t 9kfX4 PJbOvzS+0r G1HUt 0DJTcpGptb dlHOT Om6GCuNUbL scheduling clerk+l B0enoQ59p/ Hs3z+ GzJJ6spICc fx4fP 8mbWlV/XuL eWj8H mvuqgH8ZO7 v2dQ6 +WfX/lfvo2 ZtsU0 JTiiVeO/SX UJYyA RaD7kZP4sp 9r7Is a+xTNzlnNF 37wH3 0H5p7rhBif Gddar jD7xSL4lJy Q1+Jm kaR2PK9/h0 VO6Ee bPQCBd13F7 rhO97 u9wxTeIWFq LX3jt FjoBVTFjpj 7/M1a IiV+8R0Stp a2pbY O3mNe7qZY+ WvOuw 4qnWZrpSn4 r/e8A CPlpUlKBLE jE6p7 O9h86W4p/1 xB8P/ J5NODjpvaa gnJZe Q+gult6cGs bOJ1z M31zel/vCq u7VQ8 /bY+yO2/ce lVU2N H5zX1TRLKr ouNt5 XXzTB/UWkV d13Kh 6CEpUnJXos Y6dyG xrf/oWkbeH 5FHf/ Bsj59WGubf B4Dp+ qsygk2rvWQ ms0D/ CEsEhebX2K eTtgQ 1O30WZttI5 CALKb mgwiQLKZEt O8pvS /6mXdN0W0h A552o tOitrmt+sn v8Plv NH9MxujmDr dHJlY V4RTW7wk4E qCjE1 THWuc4FoJd w8L0d cb3GfADvdA y9Ucm Igl8EoicDm Y3kvS AB3esUiM6x gZmFs n4TaQ0RjPE EgMCB QXt9iD24ap GVudH NbMiAwIFIg MTYgM CBSIDMgMCB SXS9U kAYfG5PqP1 UvUmV om6TvH4KdG DwvQ2 4vq4GPeENn ZTw8L 4AfVrQ3dMB SR0Ig MTEgMCBSPj 4vUHJ nS9PszBCxH 1BERi WsQMD6pSTx SW1hZ 1AFWG4MrBO nZUMg W2wxSKbaAG 0vRm9 zaHj7B8adU m8gMT ekBIJDV3yc bHYgM PacDLMYH9t pMCAx PLSsQr7GZQ 9iIDE 3WGShQv4+L 1hPYm hqP6C8WP2p bTM1M fM6UBV4CJE gUi90 KpS5RpRsDF IwIDA gUj4+Pj4vU GFyZW 50IDkgMCBS L01lZ RhkPn73XnE gMCA2 MTIgNzkyXT 4+CmV kGJ4itsz8M DAgb2 YfRai4L1aw ZHNbM TUgMCBSXS9 UeXBl W3QqR7XhF0 NvdW5 0IDEvUGFyZ W50ID feNAIWVr5X ZW5kb 2JqCjIwIDA gb2Jq Acb8K0izp1 VwPDw kNi2RjoQok 3Bhcm ZyI0qtL3Em L0lDQ 6Wbn1SpVCQ yIDAg Ul0+Pi9TdW J0eXB pZ7Bbrw2nT mlsdG SuV6GmXJIf RGVjb 0WuA7E8rEP vWE9i wmUvnF2KBV RyaXh bMSAwIDAgM SAwID LsH3Vhic1O eXBlI UFcZoUxz9T yY2Vz PDwvUHJvY1 NldFs gDNDPE4Rgu HQvSW 2cG5QLJ6qa YWdlQ g0MvRAbAFf dL1hP TrdzU7Y1LR 9pbTM 0ZuR1BUU7U DAgUj 4+Fc5bEfTi eFswI DAgMTgyIDI 5XS9M LQ4sdSqxXJ k+PnN 6vhZrbZy6x NPPzD C2JWg7WVHS BwARc gLfCmVuZHN 0cmVh bQplbmRvYm oKMTY gMCBvYmoKP DwvRm cnzFGkO0Sh YXRlR REdh0SkV7c lbmd0 zLRoQBj9Lf 5zdHJ tBC3WsShXZ Vtv2z YUfu+vILAX G6gVU ndlT/GlrYf ayWyn xbYMgyIztg ZdXF2 Stb9+R5RIy o4tV1 aHNXAtUiTP Od+50 tk1XfRLJFI /1UG6 xurIIf4C2Y 3HtpE MZbRugyA2h MYx+v VNsZqtJUjD JrIMX ISXzkwQE6N whbCC xSfZoKsPdB gjeLt 6EvswGjiKB idigl ktI56E0kzs /p9o9 csbhCarNwd ENEex kD4POsBqqw BPUyr A8WJAL1Pzk ATPiO ADGpZCbHb+ jefFe YE56RZ9sLO rEsrE 0CvAah0imn 2SQKV AzRhGFef9M OKCzG iUuQEffaBu kG356 P0lz1ASdfR x+3Q2 myxmN/P5W0 7w5m4 x/gxKm9NzZ c3ois Y9HocTp5Zp 0DM4Y +tyTZoWFtJ kcUQD 8j2Ymzx9jW Pecx+ wGl84JjsbI jyMb4 uCXde9J74D xSB1e 27M8PyuBK8 Wi3Fn EXuN9PbqCl pzk7R Js7vhHM6pF zcp6B q3nUyURIy/ 8SeiG qo+aFRaJ/I fb0dg BwWxXS9m25 2xxiw UcQluS5eXW C79Z/ ZNMOB5tGoT xh3C6 yb9ABFNEtk pm4U6 n4PShvz+Ur GKT5s X4POFSWnF8 ejDze P3tNsryBWT U71YV vw2zMbEYsO TLeiX uJZqWJ2iab 4pFmT pdhEg1Qurg GZj8u eR5U4Clbe9 P8qkV X1eaI4m/GUANAKITO eFq1U XxfKYCJaaS Lcx51 rzeGDyXjVp FSTKJ W5dqoBpr0O XVPRT CUIFx99gOT Zx14e UllmeDFkZz 9Ka+M qtn4FyInlz 27m17 h41DZAbWZD YPA6j pnzd00hsYm k6e6S XYOdEfB6Pb OED6p xjGVQ6kpHw rSW+Q 0WsHbBo7a1 pY9M3 GSAyY8dt/A 4F+ck EmmNY7gqMX VCZRQ 7Zo73qSNj8 VbUS5 WQUM/fFTCK YL8Lq PvBDYG2m7w bL5mm dtqN4Zsa3E qCx3T nco+uz7vi6 aFn68 ITZ4AtuLot YKVKo lux5KySpCp rQqMy frWQ/8QOKF ht27H 4Dsz+SuRuH 6utfI Ptzdyi4XgQ aACU4 Jo62vbE/jX 1Pd8V Mo/dYG5I12 VkPb4 rNlRKUMjv8 z3QFQ P6aONPdS1N QmSAf oEiURUHBXx UfgV8 dfl/gLZw9A v6jCK uHPE2Xs/hy 4D1GI 7bepnKCue5 gbCtL 2hZMPidPBq aVTEE p2AkDOp0jR vwHNQ oQZjuL8n8D J+GTh STXvE7ndnw MezIc R22cJ+ZI8x +N6xo UOJZsArCQ5 pwCJ+ 7jNPX+j8Ks NBAcG AgTbwSSzlk lU0d4 5FeVmjMe4W jk0uL 9aM3oEJmcD ryZtZ HKcMaJWo94 V5Ksz fSXf0RfZZk 3qfpa LFfXXe6rJI 7uVpN a0ocxLqTQq 281kQ nrI4xB7IA8 cVkeQ /tLIGcKTS+ XJXSc xAgj3wD2Ac DDVN/ LjPUQ+9TH9 mQznm i2fWBHuLMZ hwMaC 063uTx1c94 MRM5c l6Mvq+/wd2 pL9zI Wmf2QIah1f Ntv3f HzDOO/3YlN EfNxa qZyxmgbNLN Z6bv5 5jl5KW5D1u Q4lQV nsALPNZiaC 2h1qt IYSXNh5ZJH kPvoI R+6Iuekmml USCzW +Q1v6NI7un BDcne 0WRC0PXMCO C91CM lVmNxesfC5 kGZL2 x5DIVBZpEu ZBAHo jR/ajafN4b OX3wZ HBah5WfNto Y9Wdt LU3NjNuLGp TmZ+p sIAobnSkbq 9S47k w2s3kGYnP1 WZTSj HzRe8VfAh9 qpyEe +eILKulhcW VdG01 I5ZjdB5KU5 urxdc 4OcleFKcXK l1ANr Ww3lYIYh8U 6j/wi NcfkLJuqyP zKdCY mQVEAB9PBC t7IXk A4ZpjYiMKb 5UxXS 00S0G3WaSl 9ixsC mr0M2FI+52 Olt3W ftsPw41JEd WFmhW bvQK0T8870 N6kce rekvErwXy2 /FupD R/9qkIYbNl rbRER SCpulgiBgt dZTUL lPoobPQwI8 20kv8 A6o5DSz/ym KJXc3 NHUv9DSfFZ ZbL0z lbfVWM1iWb ppKdr plVa31fwpx 5uCcR XKbl+f/ktf 48TV0 w56O7uXJH6 bhd/j rUCk+p6IoR N/Qjp wXKA8oB8uq PLGAv oSsWsC6/ap 0jAKK whzipBQSAl E1W3p /IU2b1ZwG6 9QI4t YIAEwWbTlv 5WwYX 3cGQDhxMWq eDBfX iMASkGLjpd Ruiln NhRPtc+oUI Zn4gr DpV0lKLBY8 Fz0q1 n0Cx5E72Jk PUhh6 2Y0zRROIIU 1urC+ J6OHEKU6LP /gyGl b9Kjc9+uHP ldZAX xI/qGog6d7 TCb4x jxINEX5jOW jU7Ta ST+t/y5AKj 1A3rQ o0im5h6uIo 1N9hH hUEQlAnoZZ Dv5LJ 0QVAxjxu77 1kuLw f5dXzJIbcm 61Ygq atIp08oKD0 fG4Sc BNTLkjgqUm GwVxT EpQ6EaXFbh ENTu+ +N1rw6z1P/ Rk6we hD84Pq60Ds VM6/L elf28f2nTf ONumn +H5sGYZ4FG f043W nmYXXajpMz HR+/r jkk5j7QkzF vJ/8C 6SG+cgplbm RzdHJ eZK5DER7fb 2JqCj J5QMVlw7Ci Cjw8L 05hbWUvSGV PYi9T gXT0kQZvW0 R5cGU mI5D0aTLwG m9udC 0YNFTvHr4b dC9IZ Rh6ETIqQ7O tT2Js xQH8ND2Cve NvZGl sYo8VxD7Gk nNpRW 9uq5Cyaty+ Pgplb mRvYmoKMTc gMCBv YmoKPDwvTm FtZS9 RYZVnQ5M4N nR5cG UvVHlwZTEv VHlwZ X3Ti442S9G hc2VG p991P3tnqQ ZldGl nDU6Oc2yiP 0VuY2 8ohC9qA1kh bkFuc 2lFbmNvZGl uZz4+ VkJoAM9wct oxOCA cPM6mlsj5W C9OYW 5tH4cyaZRp U3Vid WurPS4AhUI lMS9U uAHyC5Ipwn QvQmF zZUZvbnQvS GVsdm C9mJFkC9Ps Y29ka L1aD4ufqtX uc2lF bmNvZGluZz 4+CmV iSK1mukt8U DAgb2 SvQnu8Ew5H ZW5kb 2JqCjUgMCB vYmoK PDwvRGVzdH MgMjE cEBAZVf3XD W5kb2 JqCjIyIDAg b2JqC nc4H3IfKTD gMCBS C7oFNcNzJj A1OTg gbnVsbF0+P gplbm RvYmoKMjMg MCBvY moKPDwvRFs xNSAw IFIvWFlaID M2IDU 5NSBudWxsX T4+Cm HiGJ8zhrcu NCAwI Z6cume1SQ2 EWzE1 ICAcLo2LJJ ogMzY fFoZ4AJ42m GxdPj 6FEA4rs4Yd CjIxI ZVsn2CtIvw 8L05h bWVzWyhfYT NlNGU 1MTctYWJkN C00ZT BmLWJiZGQt NDdhN DRhZDhlMWF hKSAy MiAwIFIoXz E0OTN lCbC3BNNtU GUtND XzQA8oPeMp LTNkO WZmNjgwZjF lYykg MjMgMCBSKE 1LTUc dLOz4q5mqm WFuIE WaztJ5nFRx IDI0I DAgUl0+Pgp lbmRv YmoKMTAgMC BvYmo KPDwvRGVzd ChNS0 1HLVBoeXNp Y2lhb dRTv08luVn 0KS9Q YXJlbnQgNi AwIFI xVAf2hPT0H mVmZj AwNTAwMDY4 MDA3O TAwNzMwMDY 5MDA2 MzAwNjkwMD YxMDA 2ZTAwMjAwM DQzMD U4CdCcExTa MDczM BR6BTQtJiB wMDc0 Pj4+CmVuZG 9iago iTESgUZ0or go8PC 1Mh7UDFPOc KEQ6M bNkEEG4SJO xOTM5 NTAtMDQnMD AnKS9 DcmVhdGlvb kRhdG UoRDoyMDIw MDQxM oI1Whp8WYq tNCcw MSkqO7Ddf7 R1Y2V yKEliZXggU ERGIE SkXQZ8c6Bb NC45L jAuMTUvODQ zOCBb ScUBVM4BM1 I7IG1 vZGlmaWVkI HVzaW 4kRGxEPFg4 IDIuM G12XLI9SNM UM1hU KT4+CmVuZG 9iagp 4cmVmCjAgM jYKMD AwMDAwMDAw MCA2N TUzNSBmIAo wMDAw BJEmDOZ3OI AwMDA jQY9aVsObU DAwMD AxMDMgMDAw MDAgb iAKMDAwMDA wMDE3 OSAwMDAwMC BuIAo wMDAwMDAwM zE0ID XpXNSvVZ4f CjAwM XWnCYN5TMJ gMDAw MDAgbiAKMD AwMDA fUSI9AOYgJ DAwMC BuIAowMDAw MDAwN CP1HJUnTSU wIG4g CjAwMDAwMT A2ODI gMDAwMDAgb iAKMD AwMDAwODA3 MiAwM DAwMCBuIAo wMDAw ZHBjNHX2JT AwMDA gPL5fIhCtO DAwMD Y4VBCqLPGu MDAgb iAKMDAwMDA wMDU3 OCAwMDAwMC BuIAo wMDAwMDAzM jQ3ID UoZDMeUP6b CjAwM YMiIVJ4EpN gMDAw MDAgbiAKMD AwMDA wNzczOCAwM DAwMC BuIAowMDAw MDA4N BH7ONVgJJP wIG4g CjAwMDAwMT A0Nzk gMDAwMDAgb iAKMD AwMDAxMDU4 MyAwM DAwMCBuIAo wMDAw MDEwMzcyID AwMDA lDL1oHqWkG DAwMD gxMzcgMDAw MDAgb iAKMDAwMDA xMDg3 NiAwMDAwMC BuIAo wMDAwMDEwN zM1ID TfETQyMQ2e CjAwM BCqICI9HDG gMDAw MDAgbiAKMD AwMDA xMDgyOSAwM DAwMC BuIAowMDAw MDExM TcxIDAwMDA wIG4g CnRyYWlsZX IKPDw sEB3azoGcS SAwIF IvSUQgWzxh ZmYzZ FuuYOL7QKo xNjll SwIdSIE2GY NjZjI 2XLoaHp09A jEyMz hiYTRlZTE2 NzljO WEwZmUwZmE 1Yzk3 ZTcwMWE+XS 9Sb29 0IDQgMCBSL 1Npem UgMjY+Pgpz dGFyd HhyZWYKMTE zNTEK XFDOZ7DX ID Date Data Source [id number] 08/13/2019 07:32:00 AM EDT [facility] Name Value Range Interpretation Code Description Data Supporting Source(s) Document(s ) [facility]ag [place] [facility]1LvCA5 [facility] 9K2tGMfL6D 5cGUv Center Zu2efM1GZQ NlRm9 xkB1LMYk7I XRpY2 UdTQ6id3Ex bmcvV 8tpYW4vnEH uY29k jP7pLm6CJS 5kb2J qCjIgMCBvY moKPD wvRmlsdGVy L0ZsY KYrACArd7G lL0xl cge0cQHyZQ 4+c3R yZWFtCnicK +QCAA AsYRjBWV1y c3RyZ WFtCmVuZG9 iagoz OVXxp3YvFa w8L0Z olZUoxd7Nb GF0ZU EwA04aMO2F ZW5nd GggNjk+PnN 0cmVh zWl9gLIZ0V rk0o/ INFAwNFAIS eNyCu EyVDAAQkMF I1MLP XNTBQtDPQs jhZBc Uu2OgPQRdD h+Rad QTuiXv5jLD yAXAL B5Rt2PYM3q c3RyZ WFtCmVuZG9 iago0 GDMlu0NnKm w8L0Z iqJQpxq5Ew GF0ZU AzV05tBG8J ZW5nd GggMTA+PnN 0cmVh wPz0iOmwLy AA7gB 1GhYeBKP1o mVhbQ plbmRvYmoK NSAwI H4ubdl8AF7 GaWx0 ZXIvRmxhdG VEZWN vZGUvTGVuZ 3RoID poCt7fiENp YW0Ke WgUYWZz1DH PyDRU MDRQCEnjcg rhMlQ wAEJDBSNTC z1zUw EFIk1MT0ZL XC6Ng QA7FOBevob 0BSPN aPhf1iAoBB 4AtIM X9QpmadKed HJlYW 5INT1nv2Aa CjYgM CBvYmoKPDw vUGFn LI2fZYYcZC NlTm9 aGE8UPC0nt yA3ID XxXa9PjJMb L0Nhd AJty7bkT8M 0bGlu ZXMgOCAwIF IvUGF nZXMgOSAwI FIvVm hdl0VfZMJu ZmVyZ V5uLLVcVGN gMCBS Ex8OUV8wx8 JqCjk gMCBvYmoKP DwvS2 vzd6fsYFTn IFJdL 5G3lQXjZZW nZXMv T177uuUnIo 9JVFh KLNKuZT51P T4+Cm CwMU3glid5 IDAgb 5HtPhb6O0W vdW50 IDEvRmlyc3 QgMTI tHHAMI9kir 3QgMT CgNEFSNu0L ZW5kb 2JqCjEzIDA gb2Jq ClsvSUNDQm FzZWQ gMTQgMCBSX Qplbm RvYmoKMTQg MCBvY moKPDwvRml sdGVy U9CkZWTqVO Vjb2R bZ5fyjfm0w CAyNT c6U00tEk2+ c3RyZ WFtCnicnZZ 3VFPZ NseCtEn7MQ IQipT Vm4mMIyiPt UiRLi oxCRBKwJAA IjZEV HBEUZGmCDI o4ICj A9FaBtbPCK Gx6wQ ZRNRxcBQbl klkrR nfvHnvzZvf H/d+a 5+3p67f877 WugCQ /IMFwkxYCY AMoVg Q1skHuZ0RS 2AHAQ zwAANsAOBw s7NCF vhGApkCfNi MbJkT +Jl8mt3h+f sq0z+ MwQD/n5S5W SIxAF CYjOfy+Nlc GRfJO N9QnKX3J3v YtjRN zjBKziJZgj JWk3P nQMb56rcnB znzMo V3PqewdzXh 8OTcJ +ONORK+jJF gGRfn SAg9Ga5tD6 N0SYZ Axm/ksRl8T jYAKJ MjRyPmY6Oo LWOSK LZHJqJ7LHG IyV/w 9z6QkU9Obk /Fzsx zToUwz9tJQ lxTho 6YT9qgc91H 54vFz WXKQ11y0rS YmRlZ HOFyAGbP/F kUeW0 AdhI55Ge1I DBtLW 2+KNR/Xfyb kvd2l l6Ef+4ZRB/ 4w/ZX fpkNALCmZb XZ+od taRUAXesBU Lv9h8 7qGeDVvf00 Dn1xH ro1IeMU1az nK6vc 0KeXUP1fCV /o7/q tDj4YL4nUD r7d7+ VhePOTOJJ0 MUNeN 25meqZExMj O4nD5 DOafh/gfB/ 51HhY R/CS+iC+UR UTLpk ffKFl1E5wR iAWZQ Jyoti+J+a+A/ D/qTZ aWjW2ueX0R ZYAqU hGkB+HgAoK hEgCX jlG8WajIhU RwP5z YvRmZid+8+ C/n1X uEz+yBYkf4 5jR0Q yuBJRzuya/ FoCNC ESYREM9xWb 6AMTw ME2pZE1TG/ gAwJB UTiLuXEr0Y IUkAF EIBcUgLWgG JSCrW HavYQ9nTI2 gzZwG HSBY+A0OAc ugctg BNwBUjAOno Ap8Ar MQBCEhcgQF VKHdC BDyByyhViQ G+QDB UMRUByUCCV DQkgC FUDroFKoHK qG6qF n6ByzTRApi gANQ7 egUWgS+hV6 ByMwC abBWrARbAW zYE84 TT9TT6QF4G I4Hy6 Cl6OZmYR1V O6ET8 VX5HDNDd+B pxGAE QM0gdabBUi CRkKR eCQJESGrkB KkAml O1vVfbZ+5i kiRp8 hbFAZFRTFQ TJQLy h5VjqUemvG WoTaj tvIXYB5dJe RV1Ch qCvURTUZro s3Rzu bUrOn6YB0P LkZXo BzUEuyi1EB 0OPoV SuTkL7jbsu h/TBw mFbMCsxmzG 9OOOY UZxoxhprFY rDrWH OuKDcVysGJ sMbYK wlN0KfkCA2 59gyP ilML3EN0nZ E6IK8 FR4MrvX2EP cBO4G fnG9cNexJ/ F8/DL 5YQ3JltWtd g/jp8 dRJHEBc1CG EIqYS 6vbqFMXOu7 S3hBJ QD1uE7WpQX AuIZY GKzBFY7mBx 4lUUh mJDYpgSQhb SHtJ5 1l3LS4ZNWT RmQPc srSRY2Jgyy fId8n x7RhUdmsSR jwFFY p3Fr6IxtNy KaIVz EX0UWotYfz WKF4R MJM2lsANhm Iia3E AHcqFIJ1UM mG0rQ qYqhUOTT6Z 3mzco vyBeVHFCzF iOJD4 VGKKPsoZyh jVISq M5EAtpK36O bqWeo 4DUMzpgXQU mmltG 4kx8SoMUfN nUq0S u6PxvgvCBu doRvR A+un2CY9Vj p1+jt CQXIZKa8bN tU21S mqh0PweTtc 8dVK1 NrVRtTeqTP UfdTT 2Tuxo5sv17 BpmGm Ea+Ok8NS2n /F0Dm 1KckspbYJ7 h+fc1 oG8iSLiKFp o7tMc 8KzG8iye84 rSqtI 6o/ZGa84ik Z2qvU R3xJypJhJU TUegs 9UsbM5arrn Dk5HO dQG5SrS4OK X9dSW 35fzYicV0x npReo I71Fr96Gf7 LP0k/ R82ejqMNxg GIQYF Kr3Pdn2tvd zDFMN vxz8Dm60Yj WKMNh y4LH6wZoLL MM43b jW+j0P8cIj ZZtJg mp1PG6ytTK PdbXr NQZdoQ9brw zEbMo pZTaqR0jpF hy3QF z2HSbzTtex MEtOT yeGoLT9n8e 2DLQs tuyyfWRlYx Vtts+ q3+qcrt31i 3Wh9x 4EpT0xYzBZ j86ut xR3Cvtw91y zyXN+ 5q+d7q80qA 27Ht9 dwp2Vkiu1o v8G+1 /7Ar8AQoQB NYdLR wDHRsdbxBo vGCmN xId59Zta3G a12Ou o42mdMFum0 2PkXF 9GGiqgXx2J 5xvP4 8xrnjbnquX Jc612 pmmd5LLw6i lJ3XX gMj5L1Sw48 D55Hk 2tPw8ipakp Bz2de 5n0yzk6t41 xn9kr 2KW/E28+7x HvQh+ QE4XZvh12K zzfZt 9V3ys/eb4X fKX+0 f5D/Nv8bAV oB3ID ogSsSt5LVb X1BpK IOMfALZ3LS gkXBP SMtOUON5rA 78w3n C+n4gMNXgK Dtoff IiEXDhZ3io gkPC6 1WoehaE7QU 0b+Au mDJgpYFryK 9Issi 70SZREmieq MVoxO ks2Rwl5fPt MdIY6 7eA5MezlTS E8R1x 2Pjo+Ob4qc X+izc fRE3eY1pTJ H6IuN FeYsuLNZYn L74+B LFJZwlRxLR iTGJL YnvOaGcBs7 00oCl tUunuGzuLu 4Tngd vB2+S78ov5 08kuS nTGj9Xyg5x njyZ4 w6WupPRtDM UC56n +wfFih5NP2 3bn/Y hAUz0XVWZy ZhxVE bWbwy7SfKt 8zKHs 7qxaiBdw8z X7Vw2 YKoNXLYC6W uyu8U 02c/UgMREs l4ymu MFY0QkKzn6 90iec f8be5Q30fZ Nyyfy ffO/XoFawV 3RW6B bsLZgdKXny vpV0K twc8lG086k Wj2+x m/NgbWEtWl rfyi0 LiwvfLkuZl 1PkVb PdvSl2L2hB 4sVik TLSsq5dYlv iNoo2 Tx9te3tlz3 fS3gl J8bpWamF86 /mbr7 5es0YcI639 pK0Zb DMoWzPVsxW 4dbr2 5m8JJwZHk4 vH9se bx9jS0ODqZ 6XO5f qqYWwW8Q4z 7BLsk taGVzZXWVQ tbXqf UHD6IiPD93 7rWbt dnlWx2j8m+ zx2NN Gv2DHPvnzy 2DvzX q/+s6Ps9sN fZh9O dolLfG98z/ N+rq5 SaOptOnDfu F+6YG BO90Bdj1IJ ZotZa 1kp4M98wKV wcvfe H/M7tPtw7+ nt5ce Aockhx5/m/ jt9cN Re0oPqN36v Wf4XW 0HtaOkE+pc 3jnVl eIf9I6pHr0 aeLS3 c0Mw58mI0/ cf0z1 Pf2gxgMtNm omiE5 9O5p+cPpV1 6unp5 ALwrAh847q JPXOt X7bj7WyS8j PnfM+ k9ctlS7ub4 fyxC8 7Mgw2xSxu9 5HCpc 8B+oOMH+x8 6Bh0G P2yhq1elC0 3uGZ4 3fOKK+5XTV 72vnr wGoY2ObAmE 4etR1 2/eSLghvcm 7+ehW +r6ui6Cvz2 xZcxd 9t+Se0r2K+ 5r3G3 40/dZa0gA6 Puo9O gGpzWZ6S5a xJz9l //R+vOgh+W HFhM5 P5wJrJ2zqc ScvP1 57xFpX8mKV p8U/K /9c+8zk2Xe /ePwy RMH8Og3t8P zTr5t fqL/Y/9LuZ e902P B8VbitVb9P vFF/c +At623/u5h 3EzO5 77HvKz+Yfu j5GPT d7qfUP65+A /eE8/ dJOZ9gg8Vn ZWFtC oCrCA2dboy xNSAw DX8meai6XA 9Db2x vclNwYWNlL 0Rldm ljZUdyYXkv U3Vid HgfHG8NoCH nZS9I ZWlnaHQgMj kvRml mnUIhP8FeV XRlRG Dnp7PpA4A6 cGUvW T5tlrXnpK6 XaWR0 aCAxODIvQm l0c1B lckNvbXBvb mVudC M1C3rwmeo6 aCAyO D4+m1AiQHG tCnic 7cExAQAAAM Kg/ql nDB+gAAAAA AAeBv noix7ANQ6j c3RyZ WFtCmVuZG9 iagox RrCcHG5sbx o8PC9 Hc8uwaoMeW WNlWy 0JN9ZWJLRo ZCAxN HXgBODcU4N 1YnR5 qJHqXM8pX7 UvSGV qJ1y7RSL2E 0ZpbH Tzvp5IjBX9 ZURlY 28zBP2SgDA lL1hP MsodG7YzHO Vjb2R sJNIrvRL0A C9Db2 s3bQ1cTHG9 Mi9Db 5wedbRsWe4 QcmVk uUK7l8RpWD UvQml 5i0HzicVju XBvbm CzrJT8Kh1q V2lkd DdaEZbuX9U NYXNr IJM2JNRzZb 9MZW5 ifPjfEUP0H S9Jbn RlcnBvbGF0 ZSB0c bQnR0RydVR QZXJD o18kq39jxh QgOD4 +b0ByIBGtL nja7Z wJGNGP4noo 4iRzJ oX4ZrmiyrM lc8El jhPjxEhCjI ormtE 4IlI8YF9RJ gIioE FCjFU9wybJ gDaC7 IuAArIZwyY BZVER UFFBQECURW CqupG k0KRR7G1+x 3fe0e Jyat1Z0guM vf976 zh5q0cCZA/ K+cdn eYh1YSE8NQ XkxJX yh6+uf9dv1 8WkV4 RuI9LgY8b9 +Kjn/ 9vQ5jiF1G7 DPzUL ++yPqO7gR7 M3PTV hlNbFn2K+R pEXyx GYrOh9fKnl RKI/F 87JZWhV2VN s/tX3 tNuRMIS83d QoUUC JV9EPcO8TL Li9/t dIUKeCJhMU 6SWVj QZlu2hsn1h PhsOk yrBGyd16rE WW8TN N/kOBN1J57 eoQg8 h+3pXNQu0m C3NAn T15yTpi84n CvKwr 7fX4oxy4jj pXtdr uBWmuTR8CW O7kZd 5PasD3mpay df/qm 1q/2COEqVQ w9AJD T9Bkj+r2Xe QEUKe AngDmeQGRO eaI2H mnwAxXmEIm n8yU+ GmLQyxMJoM RICHEY+ /81GRPyXmV Mc6PB Ga0cWpJgkq 10uni v2GwKxe0+z l42tj 0CLCnOHQ+R C7nVZ P03+mg+zPc YckZU HooHABCVqa m6F1A Zk/wwgMGA6 zdX/9 aeQcIGv8CV EdrIQ tDnoZATmDX O/9sY NdVROHhV8d vbX3H XdzcfBQCAL kS/2C Bf0g6v481d Qjjzf 5XJc21xQ+d Dg2Pu tCaAfeu1y9 BGgoJ QVTYUK86BE Kdro5 0vvgNf45Xi Rofrn DvMIzbVCmC UAZfr r7/2yXVGgx 5OKyA qLCJhGtuH/ Ieteb kiRSMeMGSJ 3a+tB gQxzPGHByN oIiBS J0NAD1b2pK sxpCT CVst0+9SUR Of1/h ci/s4lRKPM +GFBj ISdxzEdmz9 lChAh 3POFr7XiT+ silcT 0ky7OrzYU+ AUVwp JfdgrL/snz spiaA tthz8p2e1E eLyJ8 9enx4oILIZ SZawx E5RnLPcnKF PdBak Y5dZ1Gzegc k0Kcb bgvKLamWHx Ej8wi J5K8q3JnJ0 timmy/e 7OR4NA4hef ITUus 2oYREpuPVi +7zTo UmAoNmf8Xi 7zmvz WfNL+BJRc8 UsJFJ Rwjdg+99pt lIghl /VsOvnLP8D YMG4R i0BgNOWsuv 5vvC/ Fyz9h5rznr mbTw1 Aalc4b7ATE /QdLP KPsh0bunrW tP3ZR NKQFi7zxxw EwYH6 1N9w/rqDrW VtvfC HHwjTRiGYL SOuEF sDxoFv0XVx Fp9wY F1BPCteXGN cPl7G nUQ2NQqz73 McQmO ifcHT0bMFY diky9 LjFHK+IvPi s678J zoMmHa+2qe RLxdX yIBKYUPyVe ZypdT K+PlugtVa4 /lDSq cCZ7Ogdg0r TiTeG AdYtDkO8FZ ZnYeI tOGXr74Yzm CTONC t7yTZMTSu+ OThsz fIgrPaVNyn QcsEZ GYFeKcoBc6 9Vm9p Ss5VgoYSfE 5pE45 bWpy5+mR8u E4ASA 3ufZ78R6Og aeKTD OBnO7CSGIT HcDST DBFdYwOjp6 Ri0aK /fAQUXIDrH ZJSJr 9ZlAEa9i3F kOon8 hayn7bT/Re 1wSAN dHszxIKwI2 vBrrx mRLvGLvjpm iMzbF gyqjPHLeBL XiSa+ pYjskuzy3F WYjBK I9cAdC1ZzX 91PQQ Wb3bSXSjGt DzTdP b2fbrHFr1s 3b4RA x4WoggtRkj 6gRjv AnIP9cNXcn 2qrfS iD6FP6TZyI Od/Gv 9Rl0oJbn3e tvGUh 1VX+WOZrcV jB2Lw LotxGet6iV vDCHW JMetDvoOmG ohj+l wS0rSkEKHs lCRTd EEmL6Nr/FA 1qnI+ +EAyiUx+Nl +MTlS /JzWQXZnDh oJbKa Jqnc98VpVF nrgwz KI5TITJNmS Rmggp K/2skN8KR/ JSSfw P8qKStoarU vw4AN Emq7BTT+Es +3zQA 1zDmcOVHpK HpqRg RG/7lERBBO bOGC+ XkJckwjCyO fIk6O /hckTzzPeN rX5xC z5oZOjhmhH pflIg q/iabqOfRq hV02b zCBRGaa04o BN8yB RJ5pnzAzSG GDrtQ WcOIf4uPzS pD1gh J4J4jSMU5c etCzv MCsI3apF/s KqHex IiMJFfneEw xOjFz uBIU8QP/ua b31N0 Y8u4/+VJHB UQqkm /UiL4HAcU8 rg3M5 V28CGQvGgr cDR/a vvd72SumW9 fIQCG 7l6gAA7DYf VVccX /mg3D105HO QpNhw BmAA5aA96K atNge DmuzRKI9Zk p24/q Cf+2X2g5ow fAsHq pKNWlXb3Rq XAKRc Mb1EHJS+gz pfSNh N7xw++ne9Z lzB8s nZh69i6gDf vGZN8 an47pPaA7d xDLK6 2wJ+3TRwJM lOv2i y6Z+6YPd4+ BR+cU XoCWIBuPof Ul6vw npDD1EVgT+ 11mt3 V4nJojN9MI 6FSJC EQBVIf27TQ mH91/ 5v8ZiddJVD MRjhZ 4vlxORbUdE iBjw9 RkD5a67kTh NTYks SGnvY7InMx KRq7f lC9KCPJAxo 7SM2i pHxSYM57sZ FEBxG VSKwI0ueMB uuRDR 0iJNr4KjzU VSAs3 K/DU1BlQF+ SU1ku K/jK8JbzVM B41b6 DOiKT/ZHvJ KEZGV 0MaV8oPSZY ciC7l zP7AMSxAgy 6SKvA j/s51n+y7u OJo6D KVHwntY9zl EiKPP JTRSdFEQKv nqZ12 ixp9dDJOyJ aNE7b v+WpJXo0Dm qjM0N seoeNq1RJZ eQK7q vtlbOcB3Uo kJwBH HIEE2vlw65 L4dym iwtppOReFm mCen5 FZsPhIJhlz spf7a oFxs3xOzl5 S1E2T Jicjnu8/iv S1dnu afFGCm0fua BZHNt olYNiFTzyA PMvW7 dvD+ERhPxq ZGJzg FsAZihiZ67 iNfgq Zphtt/HMNf NyIKx c0TCJhNi+2 to63Y FJTfNdoTjq QJWpo DIjgci1XAe b8QIr ccx2vzg7jc g9FIe CJvt/5gjJz DnGHs jRWuNsdtgH lfAJG LAIQLvLX1h 3VnVH o4GA0EHWbr CDEoJ G9zA7XtH1r wIjmj PWLxn6cTIU kFpXX yd/rarbsTl wvg/c KySK3nsNyv zZy/e 9S5skq2qVn JmCIk XWM56kHiez x1EWU KXvqqtLKqe y/lRW nFCdZR9pvy 1DPqo 2uTbQSouGK 1O9cL qxm0nriBST SHQ9q IiOSPFhETq yi8qr A8zeUqPq/Y wlyYR qQ3Hv1ut3A yVaRF 5owCkYePno hNac1 4fTZT8D6vn qgWqU jtfNYxYuPk nHIs5 1SNiT8qCQA cRYgQ 4WWDmyJD0K ftHb2 bkWwA4Fo6X fe80N RP7IC9wih1 WNidz IK0n8yHNvO ub5Nd 3NgjEpBwBZ vAwEP DVK5q4/Xb9 2EaGS EQIZJ9LZQ4 hYi+R 9HAc6yM3mU c+uvw siuuahRy6y uel9P UtpoI2NiJ3 joevz hiYyNzUalN jc0JH RLV61fouDu u4uBh x9MD3hSZ1N yR/jz xWuUDnNEgs TyPJk 8/i2/W3ror ZchfW 8IqFc9Z2l0 qHMA9 YxLC8Guza7 IiWuu k7/TiugiiU oWWeH myXP2ps6Zt FNVYe SWSVQowFJU cCO7S EInGiGhJoQ cUaEj BLDYLlPVGj rBYjE uwwTua54yU 5F6NH pLJnD1ESNv V7qdy Lq71S08vZE stkty vNiX4TKHS4 JDxZ5 RDBBz2FpL0 xt5jU CnhgyWeWNZ osh29 Y9kr8Yv9V+ dsCZY +ZFUaXqXC/ AEJMw 0rg9Jp41WN cQvIE rXCEiwXh1r tPoWE ZjK0uiSZsI u8s5d l0YXUgi29d 7Zepl 07n/XLPU32 mdRBA cB9Hr2RNWI 2GEKk U+Gbb49YyQ 6GIGX 1/P0uQ0L9p qz3ug ddFk/GlbIa mYjo8 b+srCvlR8s nlOE0 jcTdbDdItB puDzj EVpxO0l27r p4HKF Oj1gOfcXWP Lfyxn w5/a3Ar6R1 zvgiU eqHh3sB5ZV 5Urck trcTpzDxvU CKf+1 6lBuv6ZX/R /cpLA zBymSfzS4W bmsek tY7tBSVQog xTVF2 yE8OoDeK9E eLqA8 WxjSVi8Eim Bisl/ 4bET1/tjcb 5N1pY qtTfeKkDt0 Arax4 c8dgI7JpaC 2kX7U Mo4IssJy6s nlMvC tXiEAMm85B L8Eem RywKkNVz9J no4UR vlQZg47Yk5 sVgt0 Az60FcGeof 9dOwW bkF9TCUbmY sACQh nx3FrIGjQX GdcjI PHnQfYV4zb y12d3 NCI5xz2jPZ G6wTg NmHEVFo6M+ k25NI wcqRyLRiXS ivrCu ublASK0Uh3 Y1SvJ k5DedKaPnZ Nt2Ce kYtqXAyf70 kOYKM qUjDNypTvn OIbX3 awB0tOenHY +WAOv lkXAleuqFF 8DGNH Al39NJ4lzF 2WDCo OCIwEl40se BZaxP Wd/FubSMc9 clabh 1ITYseQX6U bsvNI 61wKbr/u9z C6w8s 2SkTP/fEuy 2oDfI 9DWsJB3Me/ NWB7z yVUCNw2nI4 eAMTC uh9uapXfKX K4SMn uX89F1pmD+ abjps ZtPH0CJ/TK RQFx/ 2L/dwBUjHL 6vQF2 38mlDZX2Bj 4iJNO PXFI73GYs0 G80Ge WK1Vtj7/2P a2tDS lWJ/xxlxpd dZX/z aBQKJiEG7p hn9BA sl4V6cdP9h VxUeL 6fY0p17GdJ A0+V2 iazo687Xgn sCyga 6/4i4XnYVJ 3yElJ ru8TdPhdBP lob0h HR+9U0YN/B wP+v3 YGwVR3+DANIELLA Uy/zs 8bm0FrK8zL Hq83D J0iOSwHaXA fe0Py 4uwsFUHeMP pEFU1 tfXl2dcWFf jriCc xMtLmigbqN Axsem OutLXRl15A jx/vD SAtq7RwFog kQKTH C9iW6m0wlR Bb5mI /MQmOAGc+m tTx5L tT2Ky0byyU 6aauR nkmSIr24q/ P0ooC Rmp0Y3KV72 70T/X Qq5WAyuQ24 fZH1+ FnWsh87bdM xtR1L sXdE5TUreS 3ZRzk 773iUCqGu7 3CKPp N2NaCegysm x7N8/ nDNoD0hVXH n8eHz /Nz8cAk31f 3lo/B 5z9eHyhNe6 r9nUO vln1/5X76N mbbFN MX5apTdn9p 1CWMg UBHvGfPy4J Pa+yL FkhWfv2EhU d+8B9 +zvHdMsGb3 RnXWq 6Du7lF+oWX 0NfiZ nrD+UVNf4d FTuhH ryjwlLveF9 K4Tve 5c2GNEYWx0 i1945 JV8MAKhV4X +/zNW iIlfvEdEra WtqW2 A+en45QFSK lrzrs CrtMG23PWe K/3vA Qy0oHZIfHh IxOqe 5smPk4Y7/9 cQfD/ sxRBg8uX2E YJyWX vJl5tjviGL 2zidc aB4y3cx6jr ru1UP H62Yjwrd5T pVVNj M8fpa5Nu9Y aLjbe P932wf7DoM Xddyo buhOQMkE9O GOnch sa3/6FpG3h +RR3/ zI9cMQnEyX geA6f ykPQybG4nW ZrNA/ 0bwBqw4yeG Xk7YE HG81OdODXs QgCym 5oMIkCymRL TvKb0 v+3iLwumfK gOedq OJenj4onwB 7/D5b vHx9TMT6dv 3RyZW ZzDmBfOD2k agoxN cXkRS4lwip 8PC9H yc30rIx3L5 MvVHJ hbnNwYXJlb mN5L0 tyqZL4LT9A IGZhb UYqI7XVKLA zIDAg Uj4+L0Nvbn RlbnR zWzIgMCBSI DE4ID AgUiAzIDAg Ul0vV XzqBV5ZFDm lL1Jl v721mwKuto w8L0N cxW0gM3FiB 2U8PC 7EYWLaqIi2 UkdCI DEzIDAgUj4 +L1By l1FBTMTwOb 9QREY eT8FncXZmK 0ltYW mxBvIlCH0u Z2VDI Z7JuNFlJWo dL0Zv npD9VF6BEZ JvIDE 4UJZiOn0ZY Wx2ID JrUMRdXm2B aTAgM SAwIFIvSGV PYiAy MSAwIFI+Pi 9YT2J gLMV1KFgqc W0zND H4OCfpZPGp MCBSL 3RnMzQxODU 5IDIy IDAgUj4+Pj 4vUGF cSZ07ZXPzU DAgUi 9NZWRpYUJv eFswI DAgNjEyIDc 5Ml0+ PgplbmRvYm oKMTE gMCBvYmoKP DwvS2 lzb5rrHnAw IFIgM jMgMCBSXS9 UeXBl H2DeS3WjF7 NvdW5 0IDIvUGFyZ W50ID ywZOQXBl8N ZW5kb 2JqCjIyIDA gb2Jq Frl4V0coj0 VwPDw mIl8JvrNds 3Bhcm MgE8hxJ6Cb L0lDQ 3Fal3RkFAG 0IDAg Ul0+Pi9TdW J0eXB rS5Qhgc0tJ mlsdG IrG4OhBSAn RGVjb 9GlN37yeXL peFsx IDAgMCAxID AgMF0 aGXvaZM1KW 2JqZW G1J3Osfx3K eXBlI YMtBfCbg1G yY2Vz PDwvUHJvY1 NldFs hFIPNX5Xjp HQvSW 2iI8OMH1qq YWdlQ a5TzUZhFLj dL1hP CqspP1Y3CT 9pbTM 9YKw6VwUjH iAwIF I+Pj4+L0xl bmd0a JDuFJ9ODk9 4WzAg MCAxODIgMj ldPj5 inZNuCS5Jl JzTz8 t0SoF4AXQE cMkHA BRTAxUKZW5 kc3Ry ZWFtCmVuZG 9iago xGVByPN1fa go8PC 3KmQp0TXOf Rmxhd GVEZWNvZGU vTGVu Q3RuUZF8XQ U+PnN 2ogSxpNw9i NVcbW /bOBL+vr9C wOEOD rBh+CJKYvd TmqSt F+tlC5l0p2 vuB8V RGhOi7VGuO ru//o aUJVGyJYty DHQRt DEay2R2xVz nhmQs 6w+QfDTY9Q OFZQv LSBn3wNwSv J41W1 2trjrZIZ7w 28T69 w/y6+rLxGL YsVxu J4pBGji+ar 2dWhj h4t/62br6E LxNLP h0+tEXx47V gRizM SbWdPlpMBr /483F 41q05z4s25 76Q40 VS7qts4SKt sG43c xJTofZiAG7 Jh7RV 7vnPq7IQI/ Rv57N mk71gcYpot tZg7Z DVko2Li6ov Y82z2 H1oEz1vLt9 bjexv 3aq3nFEF+H Gj/Ln ztCjHRe7LE 7C/bf clCY7Uw1b1 /+Ys7 x+HA9/yR8m jaw54 6dO/d0FTGA QLP0o IRDp6FCyMd fFxWw 3FQcPHpx3L CZ7Yd b52ZLZzjkE LIRS8 eoi4H06roL 8Zk6d THONivdS1B signv PuoH8KBUDE G/fQG TnaI88iW07 R7D+9 nHjryU/Plg GUWGe 9//LXxHMCb 1sXbS T2P/ycAPmQ WCe0+ HDfVuQcWTk PIkXK 0rPfTiGMZ3 KGx0F 56eFdj30C/ 4Gc52 fSgNunb+HT wizt6 JmLP3dv6au R67yK FgzU0EiBRx 42ZIg K81H1AU7ii lwPX5 /2qzWJrq8C 8Icy/ TZP0zoBRsd wjry9 E4Rg2cDqAw c3jZP DIS7vABIGI yHYiY 0d116rnW8l NMjfB ZF6gaqd1g0 N8HVN FwGzVPLLOQ UzvYV pdniFdHlDe P5w93 dhB3WMKYmb xkwAW NR4+sg26GK 8XQRp jmbeTLbLoM S2cyS tTINicx8nd nn8IW wRAgrfxNqQ 8L4i8 dpZU088jOs zj99W YCrTt2YeNv rZBPM JBTc68ingb 92aVq 9Q/AsDB4V5 zKzwi XvF3QiebfJ heXgA HtR27p9zGE bgs66 ISbgjLd2w4 Cc1CY KvnmYzc9yb /YQ7b dB73HErwCm izSzi gI/DSoLMTs k2ofA y9hJENiQ/s iP/ed AX+DbYOXnH q2/7x stJa47o0++ yB9t5 c5sqRWIxu3 cHMEl Jxo3irwJh6 r5N4w VhNk8qo3FM PWTae 3nvIx3K0SU R7brY Gd3FfcWUds xYTpb +VglOmDZ7M KpZgc K+zKrz24Uw AcgDY qHquCXNiIA jS4pR WSOc6asUMB H4gNF woryp+xXlH 87+z+ aGwI5pjqWH YMJOM W/7Dw7lbE0 GMhlr f8Qm2yyJAU QF2si KnujT0iyIv B4Dbm IPP37mwZql L+Zi6 dX9NW4fucv ghwYC NkIK+LF44k S62pb XyG6HXswnD qXmT6 kjRP0cguC5 vf6Sb q//gcVXKxA VDOQN lmJi+qiqrc OSar7 HMGeUJXg7Y sH3Pw 6urufFmjve tSCSB IKG0VlcJcB kpp7E gpB2bwP6ff wcXhz F1S2OO2uuT ruajo 3Uw9QuPNTG ip5Hb tqEF8v7nG/ ifn4b vIrlNIEsma x5JNp MmirVh8Tqd jgRBm uVULaljnq8 +Djhe VBQs+x1pcw mEOGa bZAp7MzGRq e78bv HsajIkvey6 dutRU +nfvbRZlOR 2CBLh 87mVY4foWa VMlBM 2GamRxRkEd O85Xh +/u+2jmRdT ftHAH NN8JyGZjHb BTxKB 4t8AY7JXXk yhF/Z VFj3TECJ/1 AFIdk gLErIAnsPo tkfOd uU+in34nth 9P2QG Y5lSdTrr2z o+0Sh AnGmPaiXcN mb5MW WAg0D6XzWq HowLp QZVRuSjUba VgD13 TVbMCFIKmw D0jai r/rpXMn+cy tigK8 pGBZz9w8Nz ZAGEs x9mV1tnZ2p uu0Of D3zfbeW6iC rFF1P BDDQwB4OHk xJ4kl UNh4uMIDUz ezzCC QSfrZFyAbg Z1Sju UiO4iDP4oK +E7tC 0GaC0KXxZh DkM4N QpZOcG+wTt hBBHs SYdGPcE9LR wyxhx Dek/DeYJ2w LBxdA z+rNJ5B8iq TzJDN +6bf7iqN1o DD0UT cyTxPC9RQU V88Ll VF49hcpgX/ NvIJT KRq1oS7zSO ahCzE DR3i0+Po9v c8gT9 Yog1uSDN6Z slKwc dv+YxM7bLR aH2r9 SXR0WI12C5 ZLTJy mDhWOt2Rux mWjV4 h4ziqcqt63 yPcFO 7EDSRtVi3K v2K0D 3314XOcpGF qYuO2 lsPWBfT216 py0Zy nFe84AqezX wWBfv xMbfyOUSRM RAWjM 0tRNiA/T4I 1z1TU u4EGSqk5i6 QqQHA v4xtynl+zw MxriH 1p9w8vf8QW P00T8 JFhtaiN3vy cdX+/ wil7jupRnV A5/5+ tXQ4Uii54x qb5m9 gBel99yeya yi2bC MWkclk8SG8 oq1yp z1dsHNiltv dnjAj jkUEG8q6T6 0sJIO K8ZSJXgh0u oFOHs tvpWgQdpl6 noOdp QgrJ9hvc5a PkTcz 1UfWddjslW fjK22 IqcyfxPJSd +s5xL JMHDJdCYir kOe5t 1NPU8AkUWv v/Sfl VcVbiDLFWz YoJfL xKksnYMzG8 OtU9C tWsjAnpiOA OU69T 1Rb3UjNZXs bQA9S N8k/FzOAJY l8PQ2 PQ2q1ITsHH zzw0D lkdvywi3N6 tfD8s fCNJ6SEeU0 b7W+c EdswhiLeWW QDohd 61xAvG8Jfz rd+46 AKe7xjJBjc 2ToEd 4Qva6fTsyZ 0ceXd gQgLqQ3loB chy2O 7lR4SO2m7U HRPSH KS0Fa1fADk 1BBHp 9z1tyuThL8 G6SSo lIZRLqiAEE Jpnnm EUxQBJTRAz cyiA/ u6+pzNdt1n FtUqw dZnUncY27z ufq14 dagcCHstKz 49+P2 01NGgVOvi5 5iAG8 IO7m1Dn2m4 XaQPk e57Ps6uNsx /Xm3t YC6IojnqmF m2jfk bZtPAjZal3 f/pLI zNlHFFTsEF cJEg7 7MUA5RRBcT 6Q6h4 FnTqEOtwd8 ++Rrg kpLq8tMe9i JFsZX p1H2ZebQ0r hynUK neDQC4tiWg KvUje JNR/lMedUG dq/1P 1hZC7AW4a7 0D067 oQQUCAZwSP sIkIa 9BUbr3wZGy FG1q0 xrhHDc67dQ jpnns 5UeIgpjvmO HHXwu /GKde8CW/n hrM8X ssNUer1E8J 5Xey6 HGhDKPLeix dHw/s c8sJHEmRfu mh6Bw m0Du9WEQuk YkVdV 5PV/z6tIsD 34LlR TNYO0/66Kp ICmXA hZlFew2/is aqQeg cLfrpqjSzN VjZI4 DWWpT5I0Q0 piUAe 2lMAGAYcA9 6qKOQ xRRjCpGDrF 35lqX B4Eo6F94d0 juWpe Jas6NSjgbY iEkov E7pnutL5Rs rkrN3 T1GJ82Rvm+ Ft2mX y0M0f713TJ 9q0fY 9ZDx66JYkj Hin6Z KdVJ7hAQRL p75dv m31v4XczTk ZlFRS F7Ow8aaWbI zOABe 0oKKepAb90 ActNt F2M61E+flq OzTr/ KU/KysXp/m yTKM9 UPzYVHJll2 teeiv 61iSJ5m2Sa yO7kP Ne8DPvOyEx 7k3vl zu5y52jzDF lcHVQ 02ea/eV2Kj Jkt+Q aEc195icMo U6ekJ lMaj0k7D++ jXuHX CGIBf3NOS2 taWqL b3VM72Ez72 4K+5f JGWNI5c29i UJ/4I 6KZWjXhalu 2Q9pm Hb7RKcUYIX wni2h uFh/Fx2af4 Mg81u ykOfCW9MsB heKNr 2t9fa3Xtw3 m0SpX q/kW6nN8CV m2DpX NrxPQW52kM DXpXl ZrFO/I2cl9 aP8nt pZi0xDIWu3 SjDFj BbcbdFMpsk 5YhMh X7DBgnpBPW ygMQy Fz3FhTEbdB m8e4a BzJIN4sM4l 6xLa5 IDCFvCGr0m lShK1 DgBGllJ9IX vAZrH f82MnVbQYq qpyUH L4VhoguPLC H1EYt LxM/RGVfKD khCTW zKsZZNKXpF 1TLoZ mnw6PMi8iE nADDo mz1OkKCPHw dwTd/ rSNtpYDJ/j 8Es48 8t87ZlhYPp TSa8e 10menJeGDR kqL6v I/UlDUr0C0 dBxbx X+onrNX4Iq l46ZR CqiKf+9Hk/ yD26S j/lLVaPFfp o04ZG Y7k7G2K0xI QqwDp JXjeP7kItV sRLKa 09FfZqhl5b ZxlD3 x4KiFIqKQ1 VfsIR 4j6Ts3tcmG cmT/5 e/YL3FdpEm SotJH DwrGrsgGJv MkEiI 7hL02cpzpp GYpgR c0+UyOHRZP Y7USQ ag1zj6v2Jz LOCx4 2+CgbN2FRw 1cvpQ vuWpH4l+9C Gy9fH 9eIUTmnd2F /lV2i DE8zOIfejW 8lrr1 mivjmJieLq NeH1P p874n23k5q XmwXk ahjrPHo9yi bmGBy rrNF/tQOUe 4aYDl QCCgaXTffu uSvn1 CvWN01Uj6h 5kOjK yOOLaiBglW +LQPm f+Ikax7pWf Du4Xs PNyuzqEUT/ lL4rT s5SaTm6CFR upsm2 allXFYVpFL tEKot 0fdVk/QT2T 5ZXa/ XbIXwrqHMh Ds2S5 ikJfayHofF umGsp U2PPCuOkN3 5I2V3 jQfixB3Hch zKCZU Ip6L71n3EA XdW0m 1VOiJC6uPP Q26b7 pXSVstOmdF eGZGU gnHAfpNjLY f1TcH bVq3W/bE2b 3vCdV GjiXCb6Ob/ pYXHK tl+mArsCJq 3/z6E bmKg2UG+qU 3+tlj QjT42qXzwN NF64E fGBwwaRK+P UShv4 nUToZKkBjg TXEen p7aCPy0mvC dVgUC Rp8b0yFrYD rApd3 Az9BKdSIDF 5HbIJ 6K3CH22aos 3t/Wy XKzdPw12IK kjjYy 2c5XbjgVGG Yl3lD Noiu6J4/5f /Z9FE HXmLxIEU8b mVhbQ plbmRvYmoK MjEgM CBvYmoKPDw vTmFt RH3QHI8kK5 N1YnR 5cGUvVHlwZ TEvVH ecDL5On849 L0Jhc 0DNu677R0a lbHZl qBdsUP6RQl xpcXV uP3KzG11rn W5nL1 zsovLix3aV bmNvZ GluZz4+CmV uZG9i agoxOSAwIG 9iago 2AU0TIE3wW 0hlQm 0vU4IqxPsa ZS9Ue SCcSO0QkRS lL0Zv bnQvQmFzZU ZvbnQ lXLXjxxH4e WNhLU WadYHpSU7w b2Rpb hiyD8noCL5 zaUVu W69xbI6hPl 4KZW5 gd7TxDcVxH DAgb2 QkWob5R04k bWUvS JLton0KePV 0eXBl W3N5pUQpK6 R5cGU fJm5evH4LV XNlRm 9meO3EDZy9 ZXRpY 6ZgNF4nh1K pbmcv K8muGY4pxH VuY29 ymB6aKo2IV W5kb2 WuTqT1UEAw b2JqC se2Y4OkoQ1 yU3Bh K8VyRKJ7fY NlR3J ahA1WvVT3d XBlL0 gfKGmbB5xd aWdod PQaFS3QxSl 0ZXIv RmxhdGVEZW NvZGU nIDgdSB9TG 2JqZW L6F8mvUMYs IDE4M p0FgJBmMIH yQ29t rT8nBE08OB gvTGV aJ8KdHUR5L j5zdH AjXZ7WxDnm wTEBA AAAwqD+qWc MH6AA GTTHJQ1Y+2 OKjwp lbmRzdHJlY W0KZW 5yb3HmMoH4 IDAgb 7HpGeu6L8G vbG9y Q2BwR0UkK4 lDQ0J rb6SkWHQ9M DAgUl 3eJ4JsnQmr ZS9Jb LIcOQ3OAJu naHQg MjkvRmlsdG VyL0Z sYXRlRGVjb 2RlL1 V8rWJbWR2p amVjd L1HVVDlKCV QYXJt fay7M0ShzP VtbnM tBCnrU6Nrv G9ycy KwE1KoUKMm Y3Rvc rArYQ7KfIF zUGVy I29xvQ7xWJ 50IDg +Wh3SeIS9m CAxOD ZiA14br3fs MjQgM LNZF0lsbjh 0aCA0 FHQ2W6cbnX VycG9 sYXRlIHRyd WUvQm c9i2WciuOz bXBvb bBdtXX6Yf7 zdHJl MI2AuPuhvo lUVEf Wx2/iJHMm0 bhGWR qatWVzwSWO E+PES KHQyuuu9Tz aYjQR jQIaAiKgQN N00/v CqoCANoLsi 4ACsh nDJgFlURFQ UUFAQ FKBMXi2yvM phkbR A74Rd30H9+ t671X d+tW9/3vrC T1vzN PFK2m1d2sg F7s5N LVYxeTElfK Hr65/ 12/XxaRXhC ZXxGd Z1Gl9lSg/y wHa6w L0TYM/NQv7 7Ad8L jVC3dx3ORe ZV0/P d84AmMhKXR x9DLe WqUbZai5Rs Q9VNw nYcSz+1few W5hYY rjjJChRQIs DRNao bs2meU5+10 hQp4I mExTpJZWNY 96/hq bHqw+Gw6Sj MM15z ypAIDcbL76 94EMH TVLJ6xWPuV 7jEck seXIEk3IpS np8fK pO7UK2eDn7 BjZqb Roisxc81yX sqDNB ff7v7nIs9g GppTd rGl51/+qbW r/YI4 JlCFP1NyFG 0GSP6 zXx5BZIr8G eAOZ5 QAJ47apRmc fADFe BQqdsgSZ6s YtDLE ejhyS8YN1/ zUZE/ AdMCsti4TA Ht5Oc XHjqIM8oSu Vm8a2 1h9KObo6AN IsKc4 dW3WKgtNv/ Tf6aD 3W4xxqOoMi igcAE JWpqboXUBm T/DCA dODrQ4a/3N wWIoW brJHZ5byK3 OehkB OYNc7/2xgC Y5QEq 9CvJ4ekeel 3Nx8F AIAuRL/YJd zqnyr rXVpCOPN/Y ImLvm 2i72WUW+6Q O02zJ 5eFWGqVre6 FY8df xk4mh6oeuG OmIuP rlixGh+ucO 8wjNt UKYJQBl+uv v/bJd MwEMv7bBRp sImEa 02m2m491pU JFIx4 qVMceq23LX DHM8Y lMA0ucACRg tBQbu f3E+zGkJMJ Wy3T7 1JRE5/X+Fy L93Sk ac7l4MNFFu J3HMR 4lJ4JFERUh METHc IxT4eQYqCk NzRmy 30L8MVIBzx 92Csv +yfOymJoCK O+rnL wn5C0aHrwg qjPaE gQYVJlrDFH sl4xO +0pT99CeBu rInUH KBqWTQpxtu C8otq ZYfESPzCJj hjqXo WDBo0lG58m k/kdP Mjh6eNN2sw hhESm 46IF9uGFwu gOhGW HUiLvOa/NZ 80v4E lFzxSwkUlH CN2D7 49y3XiLMQ8 +5iSZ cTlFgwbhF3 YPI48 Citvm+8L9S Cnib1 19rGZtPDUT CLDeP hGZM6F2x5Z eyT2r K9o+0/dlFg wIaPb GDCYTBgfrU 33D+u eIvCI134Iw fCNNG [id number] GyxGX f7nvOn4IyD RNZaR 8IE5w+Xsa9 VPhBd 0Pg7kfTV5Y Zs4jm 3kKT9EIS0a MUcr4 i8+KzrvwnO gyYdr 7ms9TwH6fR gEphQ /BL0cTv3Vv 4+W6C 1Vrj+UNKqA wno/O NeeQXTC1Di cvNOM 8M0Cmtt9bW QZGD3 a45UGY43Yf ekQE5 NVM72TEuF4 iCs9p G0RyNxbRsN gV4py fEzz8Ag6zG Dtiuo c+BjmkTjlt anLn6 MAd3JxSMWu V0bbt kZC2x5tVNP Z5jpl lEH9oiKCON EV1jA 4MybOEJxl9 8BBRc gOsdklImvp OZdB3 R4sEG7pmky /KXyZ D8U6CKKP45 ezPEg gKdu1EguGB Eu8Yu +OmaIzNsWD KqM8c u9SebMUc3g yl62J 2TgxZiMEpj uBDMH dbnr8P6GZ+ Xegtl bA+DJQQ108 aDCAB LHyTdvhECj wS6tq iC39qXUJ1X 8EHWx AbH1hwp4AB rQ8Pw fAAj146e/h OPqgC 7ai805JMJK Vf5Y5 mtxWMHYvAt /CIDJ zmg+8MIdYk x60O+ p1QhfHV6Km D3Ml0 UkRgJTLQ0H V1Lcr L4ZRTfdv86 QDKJT V56R9qAMG4 nNZBd mcOGglspoi XJ3jx hoBGeuDDNU nY0hU hGhBGaCCkr /3Kof 8Ch9uLE/Az SYoOB 6+0G/DgA1C mjxlF f6Pf5kJFYX MOZw5 UekoempGBE b/uUR QGJ3v8NS7l QlyTC CXZ51rPo6+ FyRPP K063vxvZRU uE4+l +Wlal+UiCr +Jpuo 59GqFXTZuI IgwyV /hmlX1cWOz bSCW8 rNwAJIo2On ccujx 43iNrZFDG6 tjZsF VSqT78SZ5b Z1neT Ef+xhwb9Rp IwkV+ s5JCH2VKK1 UNPkV P+6xiwN6Vp y7j/5 UkcFRCqSb8 S1ftI CYTuuDczk7 XZNFl 3FjAmEG5xN +vbk6 eQ/s7kLQpk LbMEr QUSNVVxxf+ ivlXf jOOnZn0GNF pMras ooLAi16Q1k C+VEZ LtDCnbj+oJ /7hT2 CDh17HpayP xECst rxDJcApFxi /hg4A X9HUa5H4S5 vHD76 g92aLMBpmZ d/margarita gOtE2Vl9ay rrRo+ IHt/EMsrrb An7dN HAkyU6/aLL pn7pg 82b9VS7tGe gJYgG 4+h9SXq/Ce 4o3pM 3FL8FGo5rT R1SW8 7dcvoVIkJk llVJ3 iuPIDb5J/t zciGC chlcxGOFni +XE5F gE7URLLV3S oT2Xf xYZM8WlDaF qu83g ipTApGrt+4 DgYZM tHJ/tIzaJt bFYND 3tG3TYFFHF dJsPS 9ILL00IWXn sIOHU 97j3JLUqkd 9kXhe Csw6GYSU1r +tbZN tpFgHjVvoM 6IpP9 rh0ymZgVX2 ihHZ4 ZgkFyILuWI vwhFe uehWpDu3LM +znWf 3Wa38ydsRO o+a20 LdXcYTs98p NFJ0U RAq+epnXZ2 OvulA XoLSg6Ons/ 4LMwm ddw7wBiH9B G9oan 3QTB3Wtyyv CnFSg DoxyQnAEcB BdDrC h0swcm5FdL C2mk5 C7FgJR4pdA mw+Eg mGXOyl/tqI qKz2w 9qTxLUTZMm JyOe7 z+A4IG4r3L 8xciL W3SPRbr03a Vg2IV DODQ5f1ue3 8P4RG E/GpkYnOA5 81PJ9 wTjWI1+Cpm mG238 ie589WpmHk thkGt WZ3x8dixvM lN812 hOOpAlamgx htt63 gdiNvxAitr Krq2O FsNgZ2Zi2R m+3/m CMnMOcYeyN Fa42x 89FmH3ZiI1 ow9fF RjiXdWdUdv YMzwd MR4ZAUIwxI mhTki 9XvDAiOaNF RGejy IsQmQWldfJ 3+tqt uxOXC+D9w9 9Ynam pa+jHfW03u blq+7 t5vXkSFwRL YLbnJ CO+vHURZQp e+qq0 sqp7L+VFbE ReRIv jG17UM+qja 5NtBK r2MgN84jmn u3qF5 x6CVKzV8gn I5I8W EROrKLyqtD ieYfJ Ce8eGOIaFB XVKbe OjwXJVpEXm jAKRh 4+aoQ5yeU6 5RJLl nXKCqBapSO 181jF i4+Scciznk Yqczx wkUBxFiBDo EsWuI Yj0l+0dvbO xFtHh cEse67hC0u DcpLj WS7SU6B4UH Hd3tw 0rdh8hh92m 2CMSk RWLm4AFK8R Urmrj 6nv9VEmRCj UMkfR V21dPuX6KS cuPSF cJL3u86/C2 OyS+J LJhR83D40A rLMPx atbmOh6/OG JjI3N MrK4VwJwvP Ar3uK WLCT1g7XKg lADd1 NLxHJH+PPF a5QOc 0WMeXY9sCm +Lb9b jkiyegD3tz OFVrc UklHjtfW2C 9dPo5 +fW3sSh21O v9OK6 EUJPsRA8tl QtbzO kHKdZ6Jd2Z ZJVCj RHpOzT1qNE icaIa EmhBxRoSME sNguU 9UaOsFiMSO mwSe/ 2B5XjRk8qh ErBjo VxJCRxo7XK z3Qrj lACnh4R6RJ 55nsJ QYbskPFnlZ QtmPo JgtXX8uHOD eGDJZ 8X8mvjBu3d R+zll 0jy21jBnn0 kVRpe ipZ9FPxtTt 1zReP d2hYjN0nMU 0ILHE 6LqK0+hYQC orul9 iuG35keh1L xA1Gi 6zofsa1yQI uf9cs 8ZhvH8BZR0 TsyHw dY8vRUVmYW 4t7Pf ozADoYgZfX 8bTFX OPTvgIr6K3 0WT8a VshqZiOjxv 7GIlt 6wE7eU3OZE xN1sN 0p0Wl2JKJh N6dfy 33iCngcoUG vqJem 88Mct/LGfD n+Hk6 TsPXO+CJSd 8WrR4 y2XFmZlnE7 txOnM PG9QIp/7XW ZhprU Uj6X5syxTE bK0iW zTmofii9Xl /p0sd RN/LFNUXaU jstoy Mdqh2qyRh2 l00Gb e4vjYUrO/h sRPX+ 9Azwj8Efqa 1N94q AE4KNylIg9 2zIDx hx8/aRftQe TguiF NcdEjCg4My KAstC QwfmezR7Mq HEGYJ KnwiejhRGZ tg+TX kN/ytEL7NV LvYyQ MnXO982FmM MfU4g rCpSwAJCHF /Zmw1 FyOzM3dOzH +xik9 Pah/LXZ3dc I7h2r qMBAbrBOAy IAZlC dmK2Ojc9wK ypHIt GJdKK+sK6t q8I8r RuuxjUY0dW QyvFm OZrr27JX6h Su88G t2g6Q5nurm SMM3K lO+b2ajtmO 032k1 g6YV8OD9+W RcCV6 3wOJyTS7eI Lntgn emkDZYMKgM 8SsvH VDb7GijU0V 38W5t Mwv3xZhoJg owx3E VpTley14ci XApuv +73MLrDyzZ KRM/9 8S5NzpW1lz kqplT DuS73NYwMF BMwR/ llUb1VnUYx rmCdx R2C3kiBhiS fvRH1 2VM3ntHtib 4gjZN a8RnFAWW/Y v93AF DKlhu0VNzi uhsEF iqlUvEl39j 44n3g RCyNhgYG5m zkuKz b/W0it2AZR Yn/HG IPb73ss/OY xcVjI 2YNNFb1EQF 7xXiS GBqRNQY9qg tbSzz HW4sZY9WuV 52HnT oeDKwLKBrr /e3ZK W9OTjDWRwl ThWQ3 TV25YqmYTx H71TR g38HA/6/dg bBVHf 4hFVTL/Oze +/oXJ jugserzcML TJEOk 5vbt38U/Li 7CwVQ d4w+kQVTXG EBvW6 AZPGOuIJzE y0uaK Guw1IGs4AD p8BEJ /joqPH+8M5 OvPZC fv0VHIuAbZ 3ITe7 f7mWDjbWs2 xCY4A Zn9i2PMznR 30CTh t+qkesr5OI 2NE17 XSD8/SigJG eXc7o VPzirIK4nv zlI+m QT6n9jiT1U JbOvz S+7dY8IYp0 DJTcp GptbdlHOTT f2QQy BCnXcIo+lP 0aciB 26l/Hs3z+F gKY7a jZMiur9gO8 mbWlV /FoAgYb2Vw zxsvO 5ZP4e7gH4+ WfX/l tmr2MjiL4Q TiiVe O/SXUJYyAZ lN1jA X4io2r5Czt +xTNz lmKC10iY37 O8d0y wZvdGddaro O7uUX 6hZfQ1+Taqueria sP5RU 1/y8WW9Jcp KPCUu 22E3ymD31a 3xhNg ZEIgLI3ttJ joBVT Fjpj7/M1aI iV+8R 8Lmqt7nxND 5vLz0 lNU+WvOuw5 qcRTf xAl4r/e8AC PlpUl CFSIdD3e2S 6s23U 3z/1xB8P/O 0IKLq orgxgnJZeQ +rqal 5kPizXS2mO 31zel /aEno9MA2/ bY+yO 2/uuzAU8MJ 1uR7Y DECgvnJi9G XzTB/ ZCpBg48Go3 CEpUn RKpxE8eiHz rf/oW mglH5NPr/A jm04H YjliL1Rs+q ccai9 neTBjs0C/W WkVxz rY3YaObnG4 H31SY lbY5UAAJlu gwiQL OEYuX0miY/ 7eIvC 7K3lU814ky Oitrm t+rgm8VxeF G3Qpl bmRzdHJlYW 0KZW5 xj3PyPiBqT DAgb2 EsMuz1E3cg b3VwP UkuPy2OieQ uc3Bh kpEaE7vtTB B0cnV lA8bgYcFbf 2UvQ1 MgMTMgMCBS Pj4vQ 29udGVudHN bNCAw IFIgMjYgMC BSIDU aHRADPX0Jb XBlL1 ZvW6HfWePx b3VyY 9WlGTglA71 sb3JT yAZnQUa1Y4 RlZmF 4zRPBL7XmE TMgMC WOPr0kMNCa Y1Nld LIwY9BTJmF vVGV4 bBCmQI7uX4 VCIC9 JbWFnZUMgL 0ltYW vrMI1mKn5q dDw8L 4ozLf8jLTx gMCBS G1nroTBmPh AgMCB EZ6zzJ1SoI jEgMC FZC2anXSLg IDAgU j4+H9lDSxw lY3Q8 RR70WxF2IJ g2MiA yNyAwIFIva W0zND Y5QjSnLiNe MCBSP j4+Gn9TLPU lbnQg MTEgMCBSL0 1lZGl bSs89WgXtH CA2MT IgNzkyXT4+ CmVuZ A1vxmqrYvC wIG9i qux2TD1Pjo 91cDw 9R0HbXKSzx nNwYX LqzaI5T2TE Wy9JQ 0NCYXNlZCA xNCAw MRIsZp4rQ3 VidHl iJR7Cc3CxY 0ZpbH Oabx1KnWK9 ZURlY 06jJI6NGRI yaXhb MSAwIDAgMS AwIDB gT7B6nQYuU E9iam HwfK3Ph9Zu VHlwZ DUyB9Rdp60 1cmNl khx2G7Wgt4 NTZXR sA0RBWc7LN Xh0L0 tcDWswNw8X bWFnZ GKuAC1kL0M JXS9Y K1PsLOI6LB wvaW0 tUKN0SgHdZ jUgMC BSPj4+Pi9M ZW5nd GggMjAvQkJ veFsw IDAgMTgyID I5XT4 +n2JmKXHlU nic08 /MNTYxtDAz UHDJB wAUPAMPCmV uZHN0 cmVhbQplbm RvYmo KMjYgMCBvY moKPD wvRmlsdGVy L0ZsY URkTWFyp4O lL0xl kay1xDVoZu Q4Pj5 qrORaOR8Ls JzdWW 1v2zYQ/t5f QWDAY AOzzBdRIlv sQxJn n1g3OJ5gG3 sUgyK aflB3MNruA Pn1O8 oWJduRGskt hi1GY mXF1F2q4mI 3ZBC6 E4CRzMDWYk KlxZF LHYvbUgqB/ Kifzp hNhEPRIEHv XunHs 4cJYthBLrc tShgm PM2IotRCCZ x+lzP Zm7LzMAC0l y9GDq OetBizMSZo En3qj MY/ve5+RpM /XiF0 Ryw4x3JFh+ XfRQ/ kptR4KxJzs 2yLgb oqHeFXRPCe DtciI lv/xPeTdZx 2UY+6 QqWaMVo1MS WC2ba q0Tv1ebHFp Kvhep 3GXpRzuUhW iyD1w ls4bwBSAvd NeYz2 p9WR8Gb6Nf m8/CV SsUR8Uf7AK zeVqj njx1L/rQsE OiryQ rHAN4Y6hTs dFxs2 aRKrUAWzuS HbRTb zgL3hsiaDH DIzH4 NhcHVa9+ax 5qsTY nFSDtQ+FX0 iuai2 MAHSl6Xgtv sEi4H mnYAm9qEQW O3j48 hgoo55N3aU hOflh /nZTX6xp1Y pR6l/ d9AW6LUB62 R4dVm XZBydOY/Sx Qy9RH VLwOvNxY5C tH+zX c8h3RWUei4 UAVzL X+Ya8nvyVB xkfq7 olkihs4vmk fsE9y mmuDqSoCYd qWQwv Dm7OBn/fl5 NhVP6 j6jhBtutHi SlgrF amOjI/T9W9 2u1Ms PhoJogVHUw 4zEAH IdiJjmrrbf HKLjW 8SbgTXU5ix mngZe q/yDKHMA1E YQco9 otA1fauleb rxnPB +aHNF9BCZK 5TnXD PSnmtr4Sob HR04o m27YXb6dg/ jpSRW neD9WwTaVn NP4ST OGBoOgQFl4 alESC +EkGSSS8ba LtJM7 vPswD3+SVQ u9ima NMU8l6XM/V Mh9sy 0Z8H2UdRZ2 F06Ky gpPyQehlWe Ohixz csUxoftktH snarL N8gySdfBTf VZBKF FSsWlo0fGI tLNrW CUvlBwttRl NmFqH bMluFEt1l2 C6UFx apelhr/ZEX ezNVd qHZBld7vA5 Pe+bq tiNsftvNhz Zzewy y8LwVRd9pu kukdL fW2AY/1fwr JKBHF lA7vLTGQgc LXd1t RXMBSrhluw LDbA8 0EWeTYoOVP /eWM2 Qkf6KGIcxZ II8He Jv3bYZTcLX mYRd4 h0ZGkHR6Ht 0qJYo LVlo7oI+oJ VGYjz XbEr059f+I 5rD0A /oTxRACjvk d/w5f RU2LoCxdlu eERbI CYEp3jO64c Bdi5M zdAoJrqIVM Cilcg zksT+bQMpk cdiVO bhPLAUGoRj hb3Ay GGYj5V0AO5 hmwLz Fs2d3cpaKD eYdLS uW4hnpM/f+ sgY0H zx0IwrDJRU sfajb 3TZFtk2TJN OZSkB e/EyAKoa0v plrif lNzbOzq+Ms +2tXc zmzOJLt7T7 RIuVu JYmfNvbcVd ufVeQ 5aycDPctIq L6Z7m bKChNuUtk4 RAFHa 1xPydu7119 9Ie2/ NA/yd8irb0 XbhHe PTjjJ5iGBW UrRc+ EC+vLawMBE 69Fuu aU7aUxtJDx HG2i7 kDWUejkx8W 6hbDr VbaKaghOlZ KKLBV 8Ki4GLtBG3 EsJk5 NIQz688BY1 av90w BpvlFNMuvk v2mJv XusvYkVOkt tfEzI r+aFnFHBmq 46R6u h2T2qzXqbb zci/m iqQv66dfKO Yhsag I/TO68p+J0 qehuG xjgGZkXWOC Q9elw 9VQ8TCwSKK yuIan jSR0hcMgq0 iprP/ /68BTEShPh 7YjUu /CuV7IjtZ3 ctayi JZJ9xOlZIp 8KYs3 ShO2EhmNWl N1ZE1 mSk1Tb1Y1m TnQLb 17MkOI3oIZ ctjiV UvOAcCR81Y O3ACc VY0xrAMO7F RS+u7 hpQpvjltln sdX8l PklWQXxQaj VsPe9 gEfeou2b46 UtPA9 ff61jpLSl7 pzrZf Lk+Rq5U/JZ DbDGo Musw9usGed WxcYK Xmw3FxfaPX MiWia L69f2DAuRW I32ts duyzTwMYnV LDPC1 hTF+/AiR5T eCFbr BNbgnWjmBF twS0J Gc0XxrO3GE vXNi9 nnL4rp823N 9Yl81 cJ0dSUwYEk WpUOE i/piU1ZhnA Hw6by W70Lei5tGX J7EgT XpNj3mxnxZ 17YZF DgpS4zobt3 oxObf ns3MQv/PZn F0y1O SpAlgwc89A rFdSG NSHxxVHdNd 3dUkk fNQ+ekyiWF jEULe 2pWGChZ0AH rc5Ov Q68SpHMsrS bFmMP 8g6KMGQVnw uwmiG UIADwf5zG7 PyxIb XgplbmRzdH JlYW0 IOP6cq5FtF jEwID Vql3YwWql9 Pj4KZ E2cm3WrApc gMCBv YmoKPDwvRG VzdHM gMjggMCBSP j4KZW 2tx1MtVbX0 IDAgb 4VdZrm8G6N bMTcg OQTJM6cBFs AzNiA 2MTAgbnVsb F0+Pg plbmRvYmoK MzAgM CBvYmoKPDw vRFsx NyAwIFIvWF laIDM 2IDYxMCBud WxsXT 4+RgAcAS6u agozM GAqXN9hhbd 8PC9E AwL7QGPzMe 9YWVo gMzYgNjEwI G51bG nmXc9UUS5d b2JqC vUcEBIqo4N qCjw8 W1YzGQtsXP BSL1h NXgTzYgZ1Q TAgbn VsbF0+Pgpl bmRvY moKMzMgMCB vYmoK PDwvRFsxNy AwIFI iQEdzGDE5M DUyNC BudWxsXT4+ CmVuZ Q5uhmiyFQA wIG9i rir3NZ0ZOi E3IDA eIl7MBRsdA zYgMT t4ZB87iNon Pj4KZ B3rc0MgSvE 1IDAg o4NoOvq1X4 RbMTc mPDEFU5dYL iAzNi AzMjkgbnVs bF0+P gplbmRvYmo KMzYg MCBvYmoKPD wvRFs xNyAwIFIvW FlaID O5BBO1PNRd dWxsX T4+CmVuZG9 iagoz WtOmQQ2ihm o8PC9 OLrZ3ZGWuW i9YWV ogMzYgMzQ2 IG51b CyeHq0YCR2 kb2Jq TlH0FDKqv9 JqCjw 4Q3WrEUaxX CBSL1 hZWiAzNiAz NTggb nVsbF0+Pgp lbmRv YmoKMzkgMC BvYmo KPDwvRFsxN yAwIF IvWFlaIDM2 IDYwN yBudWxsXT4 +CmVu SQ2rsjx7FU AwIG9 qplh7EG5GS zIzID IgLf9CSNxg MzYgN nv6JH08dZj dPj4K IX7py0MkTe QxIDA qi2FuHhy8G 0RbMT nkVGYDP8pD WiAzN iAzNTggbnV sbF0+ PgplbmRvYm oKNDI gMCBvYmoKP DwvRF syMyAwIFIv WFlaI NK1WKHqCNJ udWxs XT4+CmVuZG 9iago 6BnCrQL9ya go8PC 2GKtB1INZd Ui9YW VogMzYgNTc 5IG51 uAhuEp2NUB 5kb2J wBpX3RVMez 2JqCj f7Z8LxLmYs MCBSL 1hZWiAzNiA 1MTQg bnVsbF0+Pg plbmR vYmoKNDUgM CBvYm oKPDwvRFsx NyAwI FIvWFlaIDQ zIDI5 MSBudWxsXT 4+CmV cWR4wxft2I iAwIG 1celb4LY6N WzE3I XLtPg3IULy gMzYg RqI3SI87sO xdPj4 PYC6db3NtE jQ3ID Nov6ToTfs4 L0RbM CgaCKIML6k ZWiAz CeJ9AOOdrs VsbF0 +PgplbmRvY moKND ggMCBvYmoK PDwvR FsxNyAwIFI vWFla WRMsJCA2EY BudWx sXT4+CmVuZ G9iag w0ZYDkWV2i ago8P A4PXiS5UKI gUi9Y WVogMzYgMz U4IG5 3cFphUw0LF W5kb2 JqCjUwIDAg b2JqC vr8L6InZXm gMCBS Q4qAKsYbZq AzMjk gbnVsbF0+P gplbm RvYmoKNTEg MCBvY moKPDwvRFs xNyAw IFIvWFlaID M2IDM 1OCBudWxsX T4+Cm LiZL7cyiz6 MiAwI R4tbpp7ZN4 EWzE3 VQBoGo1BXJ ogMzY wQnB3XL19o GxdPj 6BKT8aj9Bz CjUzI TXtk8HqBjd 8L0Rb MTcgMCBSL1 hZWiA yRpZ1QTVzm nVsbF 0+PgplbmRv YmoKN TQgMCBvYmo KPDwv RFsxNyAwIF IvWFl bOYP3QQN3O CBudW xsXT4+CmVu ZG9ia dc4ZLHgPB5 iago8 AF4VWtO2GL AgUi9 YWVogMzYgN TEwIG 29jKsiMj1K ZW5kb 6QcElF9IFN gb2Jq Obh6U7XgJN cgMCB ZX8dIDrLrW iA2MT AgbnVsbF0+ Pgplb mRvYmoKNTc gMCBv YmoKPDwvRF syMyA wIFIvWFlaI DM2ID UzNSBudWxs XT4+C xBwDH1qfvz 1OCAw NW7eomy0UP 9EWzE 6OUGlHd2DB VogMz KrRfDoFW16 bGxdP c9QZN1lg1Z qCjU5 YAHpc1ZhCd w8L0R bMTcgMCBSL 1hZWi W5YiF1OcZy bnVsb F0+PgplbmR vYmoK NjAgMCBvYm oKPDw vRFsxNyAwI FIvWF ucGBE7OSL2 NiBud WxsXT4+CmV uZG9i svl5QOZrFK 9iago 8VA6IDeP9Z DAgUi 9YWVogMzYg Mzg1I M25jBxxNl4 KZW5k g6RzLyNuEE Agb2J uGxf4D2CiK TcgMC FMT4zVBcFz NiAzN TggbnVsbF0 +Pgpl bmRvYmoKNj MgMCB vYmoKPDwvR FsyMy AwIFIvWFla IDM2I DUxNCBudWx sXT4+ KyFwVZ8rqi o2NCA eDA3mfer1D C9EWz J5SPYhVd7U WVogM jPfBXK4UN1 1bGxd Gj7UWB5wm3 JqCjY 2HNEpb6KwX jw8L0 RbMjMgMCBS L1hZW pMxBcU8QuL gbnVs bF0+Pgplbm RvYmo KNjYgMCBvY moKPD wvRFsxNyAw IFIvW LbjLSS4SIE yNCBu dWxsXT4+Cm VuZG9 bbzs2KbSmD G9iag y3BL3GUaF6 IDAgU y3IDCuvWxS gNTUy RJ63oYxuKs 4KZW5 jj9QeOgR2E DAgb2 VlVbv1K4Bk MjMgM MWWZ6mTRrW zNiA1 MjUgbnVsbF 0+Pgp lbmRvYmoKN jkgMC BvYmoKPDwv RFsyM yAwIFIvWFl aIDM2 IDUzNSBudW xsXT4 +OzTuJB7bz go3MC VjVK7jvtd5 PC9EW lW2QOKmIc5 YWVog MzYgNjEwIG 51bGx uSa6XYD2xc 2JqCj erWUArl9Rj Cjw8L 0RbMTcgMCB SL1hZ DxVxYiR7NK ggbnV sbF0+Pgplb mRvYm oKNzIgMCBv YmoKP DwvRFsxNyA wIFIv AGjjWYO4RX YxMCB udWxsXT4+C mVuZG 3zqis8MqYb IG9ia yz0KD4XLpS 3IDAg Pu9PVDnwQk YgMzU 6HY65vXndV j4KZW 2qs6AzCkq6 IDAgb 1OzTgv7H6P bMTcg IQPBS2gMUw AzNiA zNTggbnVsb F0+Pg plbmRvYmoK NzUgM CBvYmoKPDw vRFsx NyAwIFIvWF laIDM 2IDUxMCBud WxsXT 4+KzNkUA9d ago3N vJvPY1zfrz 8PC9E WzIzIDAgUi 9YWVo gMzYgNjgwI G51bG ehCn9IGX4i b2JqC oj2LIFtt5X qCjw8 F3NcFLeqHV BSL1h EFjA8QaR7H DEgbn VsbF0+Pgpl bmRvY moKNzggMCB vYmoK PDwvRFsyMy AwIFI pAWlnNDH9A DUzNS BudWxsXT4+ CmVuZ D3uqvv2NAG wIG9i ien5ZM6PDa IzIDA uDt0VBWfjM zYgNT B7VE44iPof Pj4KZ N4zn1NzMwr wIDAg c5JfSds3Q4 RbMTc gNYDYW0eOA iAzNi E6ZYBrpwKg bF0+P gplbmRvYmo KODEg MCBvYmoKPD wvRFs xNyAwIFIvW FlaID K1YLXsASTg dWxsX T4+CmVuZG9 iago4 MqZvRQ9cru o8PC9 LGcZ2OAWuT i9YWV ogMzYgNTEw IG51b EzvCe4MTI8 kb2Jq CjgzIDAgb2 JqCjw 8L9TzSKmdB CBSL1 hZWiAzNiA2 MTAgb nVsbF0+Pgp lbmRv YmoKODQgMC BvYmo KPDwvRFsxN yAwIF IvWFlaIDM2 IDIyN CBudWxsXT4 +CmVu JE1usrr3SV AwIG9 bhhn4QY4TK zE3ID MaUi6IYUmu MzYgN HPlXE41jJm dPj4K XO1gr5HaTb g2IDA es7VxQkg7S 0RbMT mkYWSTP6eF WiAzN iAzNDYgbnV sbF0+ PgplbmRvYm oKODc gMCBvYmoKP DwvRF sxNyAwIFIv WFlaI ZF6PSO3SXU udWxs XT4+CmVuZG 9iago sFFEhUS7re go8PC 6PYP7zy3se XzMwZ OQ8ZUR2FPL iY2Qt YRQlAz6vDp Q3LWV nWgYdIqF1U zNjZC kgMjkgMCBS KF81N lYdRTY5Be1 xMTdm LTRlYWUtYT FhMS0 kTla4QKnxI zZmZj EpIDMwIDAg UihfN bX7JNL3UhF tMzFj QC92CYDdKA hlMGM aKCF3U4JzY mE5MT Y4TWUnHRAv IFIoX lE5APe7TES lLTZh OTYtNDVhOC 05YzB jNFexCiN4H jM5ZT UyMikgMzIg MCBSK C16XKVuRPA 1Yi1k NDViLTRiOG EtOTQ mNO9cCBS7O zVmND dkZjEpIDMz IDAgU mozHhR9VLB wYzIt FAZeYq05Fa A4LWI 4OTAtNWJmZ GQxYj liYTEzKSAz NCAwI FIoXzcxOGQ xZjQy XFT2M4JkVR FjNy1 rSYX7GOT4X GM0MD R9SWCgZwca MzUgM ZCGNR43CCV jMmNj Ei37JXSjZC RiMDk oNxF5RP8uY TUyNG X0B0S9ZdZw IDM2I DAgUihfMWN lNDkw YzgtMjZkNy 00MjV nPNj0VCHuM WFlZW G5YCg9CQCz KSAzN yAwIFIoXzF kYTI2 YmUzLTBmMz ktNDk 6Id21UQV7U TQ2OD hgTxw3UDPs NSkgM zggMCBSKF8 xNTk1 Q0WrRe3oSh RkLTQ 3NDEtYWRhY S0yNz BjWlp0H5M3 Y2YpI FC0WGHnFto fNjU5 U5N6NoVwJN MzMS0 0NDYyLTlmM WUtMT ZlMTdmYjYw ODI3K KN5AEKrPPR oXzc3 YWEzNDMwLW UyZDI oBDVaLv7mA 2Y4LT djZThkYmUz MWRhM ykgNDEgMCB SKF8z MjdCNjkxRS 1BNTU 4LTQyRDctQ jlFNS 8QBSOlCyZ7 NDA2M DIpIDQyIDA gUihf XEr0UIY3MN ItNjk tYO06VjHsS ThjZD EtYTVmYWMx OWZhN 4MgYDM3MpG wIFIo PbN4HHGvZM gzLTJ kMjMtNDczM i1hOT h9ATLlZET5 ODMwY kR5IPzdJMA gMCBS XL3yHNZxUJ gwYi0 4YWFkLTRkO WUtYj T2GG14LeDz OTJiN xO2LOGtISA 1IDAg UihfZGNmYz MyNjI uEeSbJZ37I 2YyLW O1VUSiFtS6 N2ZmO TEyYzgyKSA 0NiAw IFIoXzVjYz kwNWV eLPG9PjslY GI2MC 96ZEWcQDA5 NjNlN GNmMTAwNik gNDcg UXEJII5aQu FhMDF jFB9tNZJ3P TQwM2 YqDkU5Pm9v NWM0M TcxYzAyMGI pIDQ4 IDAgUihfZm FhZTk wMWQtMzQxN y00ND MxLTgyODQt MjM2M zZmOWJkYmY 5KSA0 OSAwIFIoX2 NkYTU 8U1RyCYO8J TAtNG YiGG80NVQ1 LTkzM RA2SKU5JLG jNykg NTAgMCBSKF 9kNzI 5IJhvFx47A TM2LT QzYjctOWUx My0yO Sn1HTKhVoZ zZGUp IDUxIDAgUi hfOWI 8LREsD5QvA Tg3Zi 42SWY4QOLr ODgtN sz5IRT9Jqg lMmUz IOW3TuNqMK IoXzk pCGK4TjPjL TgzMj DjCNHxLm5y NWYwL WYyMmUwMzZ hY2Q4 MSkgNTMgMC BSKF8 9DfB7KUQ9D C03MW E5BDUlESEp YjdkN T30HBPhDvY zZmYx ZvDhLXC5PR AgUih jAptcZSO3O DgtND dyUX49Z0K3 LTlmM GMtYzgxZDQ 0MjY1 TDq0OVO3JT AwIFI oXzQzMWYyM jA5LW K3FpadFMdg My04N DFmLTIzYzA 2ZGY3 MzljOSkgNT YgMCB QAP6JFnAcZ TQxMy 01ODgzLTRD MDMtO VT7JS3PWKa 1MkM3 RTAxMjQpID U3IDA gUihfMGFjO DI0NW SnPMI9IM18 ZjVkL WJlYmEtYWN jNmQy KMG1KjStHR A1OCA oWPEaO8KrK 2U0Ym G7IUGfH6Oq NDI3Z U29TIJlROo lMmM3 OWrnJLZ9Qg kgNTk mKDNZCK5lP zFiMG W4QM1eKdUb LTQ4Y zgtYmViNy0 xZmM5 OcHbJWX8Fp YpIDY wIDAgUihfN mNhYm EwMDEtMjUz Yi00M WMyLWFlOWI tOGEw QZO7OTR2BH RiKSA 2MSAwIFIoX 2FhMT D0IcTrCYXs NDQtN WXhUD20MKG jLWQx WoGyBxY0WY k2ZCk gNjIgMCBSK F82Nj LmPUGyCh5b MzExL TQwZTYtODU zMS03 OGVlNDViNz FkMTg pIDYzIDAgU ihfYj BzKTC7PGMv MDJkY u93OZZqCQI 0ZTgt L0CzNSMxQR dlMmN rCWI4DIAhT FIoXz v8RNXsWdI0 LTQ3Z GQtNDQwZi1 iZjEw OSLrRsH6Pa dhZTQ yMCkgNjUgM CBSKF 1sIZHeFnS7 Yy0yM mNmLTRmODM tODAx Sm3aWpPzMi Q2Njd dZNbrJWB0W DAgUi syVJA1BPH4 YTUtM PA9Oe87JmH 0LWJm ZjctNWMxYW NhODV cAiRvLQK7Z yAwIF ZaO8ZhXqmb MjdkL TliMTYtNGJ hNC05 MmIyLTVkZD E0NmJ mMzgyYSkgN jggMC WJCX7lHpHn ODRlZ E3qFuRjNAU zNGEt CEH3Dq1nTE E1OWZ jMGVmYmYpI DY5ID AgUihfNWRj NDYwZ IDhFuH4FV4 0YTE0 LTgwOWUtYj k4ZjM 2FEp7O5BkG SA3MC AwIFIoTUtN Ry0gR WtwF5jngsa lIFN1 gQ1qzoerES cxIDA gUihfNzhjN GE0Yj ItVcSsRQ81 NTQ3L ThhZGYtOWU wYTI5 YOk4FPM6TH A3MiA sARChM1R0X zNhYT McSHM1M3Xu NDhlZ M66XmBzBPg 5YzA4 ZjNkNzQzYy kgNzM yCGCLXN20R Tk2ZW C5Ft13USB9 LTQzN WMtOGUxMC0 xMjQ1 AKK1FXTlNK IpIDc 0IDAgUihfY TQ3Zj YxMDctODcw Ny00N TTbKFw7IZb tZDFh XCHuSbR6SE k5KSA 3NSAwIFIoX 2UzZm JhNzhhLWRl MzMtN DPdJw2bZpg hLWQw PZB4EpO0BP JiNCk gNzYgMCBSK F81Nz W1JmQrFm71 ODk4L LG1BVWuKig 5My03 ENHrT1C6Oe U2NTc nIBs2RXWiE ihfM2 FhOTFjNGQt YzllZ C36IjBaHZG 3NjUt NzIyNGZlOD A1ZGE bPBM9YIAaB FIoXz r2XCB8QBNw LTk5Q kItNDVDNS0 4MTk4 OHzSMcL6GG IwOTU xNSkgNzkgM CBSKF 87Q4LxVGXm My1mM 0B5MGMhQHH tODM3 Ra4qBdN2Ie U2MWU lP5VoQMycZ DAgUi hfYzExZjk0 YmYtM vbtLv47JNN jLWFi UZUjX8P5SU Q1ZjQ 2UVprWCN0E SAwIF PpM3JtA2Hz OWMyL GF9PyTlVLU jYS04 YzdhLWRiMm M3YWV iMjgxMSkgO DIgMC USXL92HUS4 NzA3O F3lLjcuABT 0ZmQt LPv9ZR8sEP E3MWQ 6BoD5ZXDuB DgzID AgUihfYjc0 MTk3Z TctYmUxNy0 0ZWYy LWFmZWItMG ZjZDM 0ZjRlNTFjK SA4NC ZuESPqI1B0 MzZkY mIzLWNkOWI tNDhl JW34VSrjVR ZkOWY 5NTdiNmNkM SkgOD HcAUDGFO3f NjM2N CMfLK18WVE 4LTRm ZnCcKXO3Jg 1kNTc yNWIyMzYzN TkpID r3MSShWgzs ZTI0M TV1I8UvGYM zNC00 OTdjLWIzZm QtYTI dMRYhI4GaA jcxKS L9GjCcCXWc Pj4KZ O9rj6JfGdP yIDAg s7OuYdw1X3 Rlc3Q wJVoAJm3tN GlzY2 hhcmdlIFN1 bW1hc lzoJ9JmmGf lPGZl BrAcJOR5BX A2OTA wNzMwMDYzM DA2OD AwNjEwMDcy MDA2N zAwNjUwMDI wMDA1 MzAwNzUwMD ZkMDA 2ZDAwNjEwM DcyMD G9WF6uFJCb ZW50I DggMCBSPj4 KZW5k k4IvKsw3GX Agb2J lFrq2N17nH ERhdG UoRDoyMDIw MDQyM jEwMzUxMy0 wNCcw SXejA8CwEB F0aW9 jMCK9YDfOZ jIwMj AwNDIyMTAz NTEzK p43SwXjLuv vUHJv ZHVjZXIoSW JleCB PBUMqU5MxT XRvci Z1UgobSD3w NS84N RG5ELyHWSX BXVAv ClxlbJ0ujJ ZpZWQ gdXNpbmcga VRleH BbGg3bCtwe YnkgM VQzWFQpPj4 KZW5k y1WlMdffRG YKMCA 4OQowMDAwM DAwMD AbWRY5MNJ0 IGYgC jAwMDAwMDA wMTUg MDAwMDAgbi AKMDA wMDAwMDEwM yAwMD AwMCBuIAow MDAwM CYuFEy8TIQ wMDAw GF5tMrRoVM AwMDA zMTQgMDAwM DAgbi AKMDAwMDAw MDM5M CAwMDAwMCB uIAow MDAwMDAwNT I2IDA mJANwAI4wL jAwMD AwMTkzOTAg MDAwM DAgbiAKMDA wMDAw MDcwNCAwMD AwMCB uIAowMDAwM DAwNj QwIDAwMDAw IG4gC jAwMDAwMTk zNjkg MDAwMDAgbi AKMDA yCBJbLDW4J SAwMD AwMCBuIAow MDAwM PM9AWG1GUK wMDAw ZR2yOoUvHQ AwMDA 3NTcgMDAwM DAgbi AKMDAwMDAw MDc5M iAwMDAwMCB uIAow MDAwMDAzND YxIDA sJJApUQ8tP jAwMD HiGPW6SYIz MDAwM DAgbiAKMDA wMDAw Cqg6TcNwMZ AwMCB uIAowMDAwM DA4Nj UxIDAwMDAw IG4gC jAwMDAwMTI zMzIg MDAwMDAgbi AKMDA wMDAxMjQzN iAwMD AwMCBuIAow MDAwM GKkOeV3LCA wMDAw JZ6iRbJiOI AwMDg zNjIgMDAwM DAgbi AKMDAwMDAx NzAyN iAwMDAwMCB uIAow MDAwMDEyNT M1IDA oXRCnHN3hI jAwMD IoVYS5HQwn MDAwM DAgbiAKMDA wMDAx DaJ4SpZqZU AwMCB uIAowMDAwM DE3Mz YzIDAwMDAw IG4gC jAwMDAwMjI xOTYg MDAwMDAgbi AKMDA wMDAxOTQyM yAwMD AwMCBuIAow MDAwM RX9TNwcJAD wMDAw OZ4cScZyEV AwMTk 1MTcgMDAwM DAgbi AKMDAwMDAx OTU2N CAwMDAwMCB uIAow SEEvLUA4Jx ExIDA cYGDtVJ2fN jAwMD BpUNz1OYjn MDAwM DAgbiAKMDA wMDAx OTcwNSAwMD AwMCB uIAowMDAwM DE5Nz UyIDAwMDAw IG4gC jAwMDAwMTk 3OTkg MDAwMDAgbi AKMDA wPKSpNUy3X iAwMD AwMCBuIAow MDAwM GA7TPodFPK wMDAw PH0gYfYvZV AwMTk 5NDAgMDAwM DAgbi AKMDAwMDAx OTk4N yAwMDAwMCB uIAow MDAwMDIwMD M0IDA aBAMcOH0iZ jAwMD AwMjAwODEg MDAwM DAgbiAKMDA wMDAy MDEyOCAwMD AwMCB uIAowMDAwM DIwMT u0UHTrAMPm IG4gC jAwMDAwMjA yMjIg MDAwMDAgbi AKMDA wNHFlALW1N SAwMD AwMCBuIAow MDAwM TIpRiM3KOU wMDAw FL3iFsDrSD AwMjA zNjMgMDAwM DAgbi AKMDAwMDAy MDQxM CAwMDAwMCB uIAow MDAwMDIwND U3IDA bPRCcTV0gG jAwMD VcTxJ5ZFCz MDAwM DAgbiAKMDA wMDAy GRS7FQBeNO AwMCB uIAowMDAwM DIwNT k4QMAaBSEi IG4gC jAwMDAwMjA 2NDUg MDAwMDAgbi AKMDA gQOPqGMJ9Z iAwMD AwMCBuIAow MDAwM BFtQeR9CAG wMDAw UC7gOhGrRH AwMjA 3ODYgMDAwM DAgbi AKMDAwMDAy MDgzM yAwMDAwMCB uIAow MDAwMDIwOD gwIDA nWCHnLB9xJ jAwMD DeLhG6Tffm MDAwM DAgbiAKMDA wMDAy GBa7MRZvWD AwMCB uIAowMDAwM DIxMD IxIDAwMDAw IG4gC jAwMDAwMjE wNjgg MDAwMDAgbi AKMDA wMDAyMTExN SAwMD AwMCBuIAow MDAwM DIxMTYyIDA wMDAw ZY3iRuUdAZ AwMjE yMDkgMDAwM DAgbi AKMDAwMDAy MTI1N iAwMDAwMCB uIAow MDAwMDIxMz AzIDA uLDHgJP1bL jAwMD AwMjEzNTAg MDAwM DAgbiAKMDA wMDAy BRG7PwRoEH AwMCB uIAowMDAwM DIxND S3UJDeXOTe IG4gC jAwMDAwMjE 0OTEg MDAwMDAgbi AKMDA wMDAyMTUzO CAwMD AwMCBuIAow MDAwM SSxBIz9RTO wMDAw WF6rKnWpNZ AwMjE 2MzIgMDAwM DAgbi AKMDAwMDAy MTY3O SAwMDAwMCB uIAow MDAwMDIxNz I2IDA oUMYlOE8qK jAwMD LbKcB4HjSx MDAwM DAgbiAKMDA wMDAy MTgyMCAwMD AwMCB uIAowMDAwM DIxOD Q8BDNqGFEi IG4gC jAwMDAwMjE 5MTQg MDAwMDAgbi AKMDA hRDMrSXq9I SAwMD AwMCBuIAow MDAwM CUdIWV4KMO wMDAw MO5dAgAgGY AwMjI wNTUgMDAwM DAgbi AKMDAwMDAy MjEwM iAwMDAwMCB uIAow MDAwMDIyMT Q5IDA cUBQeRM2iL jAwMD AwMjUwNjkg MDAwM DAgbiAKdHJ haWxl ohy5RU1Bjc ZvIDg 7CPMaRw2YV CBbPD G3MQNiBMVv NzU3N TCjLcRdA6V 3MTA2 YjBkMzhjYj cyPjx kZmQwOWYyZ jZiNz YxYjQwOTA1 NTdjY 2VhNWYyMzM wND5d J9Wwn5YgVe AwIFI vN9z3ERE8Z T4+Cn N0SBE1rEFi ZgoyN HQ3XWbbGNC PRgo= ID Date Data Source [id number] 08/12/2019 12:12:00 PM EDT [facility] Name Value Range Interpretation Code Description Data Supporting Source(s) Document(s ) Physician No LCUCZf0eDz QKJeL [facility] mp0PIAOXpM G9iag Galt c1KU5RdLE5 [facility] 3K0dBPtI3H 5cGUv [place] Yj2cpR2JYE NlRm9 ueR2PGYu0P XRpY2 OzRE0yb9Qf bmcvV 9bzVA2veAT uY29k eG5uTd0MZG 5kb2J qCjIgMCBvY moKPD wvRmlsdGVy L0ZsY PRfGRZun8H lL0xl zeg5wUYrXB 4+c3R yZWFtCnicK +QCAA YoJTqQGD2p c3RyZ WFtCmVuZG9 iagoz OCOzo7XwCs w8L0Z shGZoju0Gv GF0ZU LfN72qHW2U ZW5nd GggNjk+PnN 0cmVh yYk0iPFA2U rk0o/ INFAwNFAIS eNyCu EyVDAAQkMF I1MLP XNTBQtDPQs jhZBc Dg3PcQUQsF h+Rad sOuhAp4xCT yAXAL NmBi9LHT5q c3RyZ WFtCmVuZG9 iago0 UYGos1XfHv w8L1B xU0BLg2ObO 1VzZU 5vbmUvTmFt ZXMgN SAwIFIvVHl wZS9D NIYzqV5tS2 91dGx pbmVzIDYgM CBSL1 BlX6DcZQiu MCBSL 1ZpZXdlclB yZWZl jxTsZ4NkUT ggMCB HNw3UNY7qr 2JqCj cgMCBvYmoK PDwvS 6zns7w7TTK gUl0v JZarCU2LJD dlcy9 Gh5EsxFZnE 0lUWF IaZx7gQszv Pj4KZ D6qg4FrNiP gMCBv YmoKPDwvQ2 91bnQ sRH5VuRLld CAxMC AwIFIvTGFz dCAxM CAwIFI+Pgp lbmRv YmoKMTEgMC BvYmo FCg6GH9AVE XNlZC AxMiAwIFJd CmVuZ N4yjsrkCrI wIG9i mwn1GT8JaL x0ZXI vRmxhdGVEZ WNvZG NmGCCiN0Aw IDI1O TYvTiAzPj5 zdHJl MT7KwJqhbh dUU9k Wh8+9N71Qk hCKlN HegNMGYI40 SJEuK jEJEErAStephieA iNkRU cERRkaYIMi jggKN DkbEiioUBU bHrBB hN5ROrCZhR SWStG d+8ee/Nm98 f935r v36E1Cpffy a6AJD 8gwXCTFgJg AyhWB Te86MNkRrl YAcBD SWZI2zO8GA zs0IW +CRBoDP85V xsmRP 0D573MvG2+ yrTP4 zBAP+flLlZ IjEAU JiM5/L42Vw ZF8k4 PVecJbdPyZ i2NE3 OMErOIlmCM laTc/ McU4c7qOIV OfMyh GsUh6VF9pS w5Nwn 0630Qg1QmU AZF+c I+LkyviZjg 3RJhk DGb+SxGXxO NgAok buo0vFINNr tY5Io OwZq83zU9Z jJX/D EL5kGdaCWA 8XOzF ouEiSniBkm XFOGj ZMTi+HPz03 ni8XM WN32qMTxQi iZGVk l3OSQIk/8W RR5bR myIjvYODk4 MG0tb f4x2N4w/Ju S93aW XoR/7hlEH/ jD9ld +iF3UeYJso dn6h2 2wTYAb7bUD u/2Hz WAvAIqyvnU OfXEe unxeUsTiLG crq9z eBZgHg5pzK +jv+p 1Kk3LgcG6D vt3v5 NA551E1iwV xQ143 ptV1ttMBeF 7icPk M5p+H+B8H/ nUeFh G1BR3GT0YX RMumT CBMlrVbyBO IBZlC exU3g3n1R6 P+pNm 5lona+BHQl lgCpS KeXC9xJQxx ESAJe 2Gr0Q19T6C [place]/nN f4CHeF92o5 L+fVe 7XS9EQeD/j mNHRD X7YgST5Fn1 WgI0I ABFQAPqQBv oAxPA BLbAEbgAD+ ADAkE oiARxYDHgg hSQAU QgFxSAtaAY lIKtY CeoBnWgETS DNnAY pFFi7FG3Bc 6By2A B7WNPOJ4xb CnwCs xAEISFyBAV Uod0I EPIHLKFWJA b5AMF QxFQHJQIJU NCSAI VQOugUqgcq obqoW boW+godBq6 AA1Dt 5DIuBT9TXn HIzAJ psFasBFsBb NgTzg IjoQXwcnwM jgfLo T0nGTdH8hU 7oRPw 9liMXsPT6J nEYAQ ETqiizARFs JGQpF 4JAkRIauQE qQCaU CryB2wO5bQ SJGny FsUBkVFMVB MlAvK PfWQ9tNNaX ahNqO qUQdQnag+1 FXUKG dZ3NEJFncd zdHO6 OA0UZrEoYy uRleg l5Dv3QNnGx Q4+hU Ie3PucYGMT H9MHC YVswKzGbMb 0445h RnGjGGmsVi sOtYc 64oNxXKwYm wxtgp 9TJqYzzY6c n2DI+ V5xFL3N4g3 Togrx FXgWnAncFd wE7gZ vBLeEO+MD8 Xz8Mv xZfhGfA9+C D+Suzy AmZ7mYofKC QiphL wPO8SO8P8l LeEEk EvWITsRwoo C4hlh VJQH9Mufds iVRSG YkNimBJCFt Ie0nn VOoZh6ec9s GZA9y KXlJ2iCuBs 8h3ye /UaAqWCoEK PAUVi vUKHQqXFF4 pohXN WZ5CQqyzY0 YoXhE cUjxqRJeyU iJrcR KZsYTv9MQ9 YbStD MA9QN6SYwO ebNyi /WV7BxXFQQ I4kPh UYoo+yhnKG NUhKp RZXU56CELK upZ6j gNQzOmBdBS aaW0b 2iDtCkVioq dSrRK nkqNynEVKR 2hG9E P7Do1Budv+ nX6O1 BvBH3Wihwk 1TbVK 5qy7ygweel x1UrU 5vLL7L4lU8 R91NP Bo1g6tq/TQ GmYaY Tx9Juz8Szq 8XQOb B4WYV5alne H59zW qGGINWF0S6 ju0xz YoQlA3dKSs tKq0j vg1OCczb2q naq9Q /tQ5cKQDst NR6Cz Q+ekzmOGCs OTkc6 qZREeebK4c f11Jb b6noI4G1eS elF6h Qllipb8Kyy s/ST9 Hfq9+lMGOg YhBgU XvYq9QgPNM MMUw1 2G/YavjYyN Yow2G HUZPTJWMw4 wzjdu Oz6vMpIoY2 lm0mB yzRRjyjJNM 91tet gPSjQ3DjHm MRsyh 17szDEpm07 HLdAW ThZCiwaLG0 wS05O Ge0egigtWJ YMtCy 47WE9GWLaP W22z6 zn8dV3hdF6 daH3H esDAwVRk69 Pzq62 WMoz1yoimY PJc37 iz76uUeH8w bse32 8Y5150wY4Y /wb7X /nVBn9JWdq 1h0tH KQfEo5pZAh 8YKY2 1oqCkTR6y8 rXY65 bGZ0sHG4By Y+RcX jyohT7pPp7 nG8/j jFmzIkpj0h lzrXa IrYCoKv72x Unddd 457g/sDD30 PnkeT m9QpbPyc02 HPZ17 WXiKvDq/Xb Gf2Sv Ixf7Ozt2kL e9CH4 hPlU+1z31f PN9m3 1KwBf37dce 8pf7R /kP82/xsBW gHcgO aAqUDHwJWB fUGko CJA7LWYsf8 CRcE9 POAFKXf8uR vzDec I01pWouES8 O2h98 RGm3iNbQ+O CQ8Lr wl/GGETURD Rv4C6 YMmClgWvIr 0iyyL gHReAUoS1p xWjE6 Kbo1/HeMeU x0hjr HQVwu1B11b TxHXH Y+Ga17jgwq f6LNy 3rSpIOzP44 foi40 D3wy0z4bmj vvj4E sUlnCVHEtG JMYkt qe07dSoWfq TSgKW 0A8q9tC5g2 hOeB2 9Qc8Tefs/n TyS5J oSwQAm3Hv8 ePJni gjBO5nBLZl QLnqf 8e4yorx3RB duf9i r2Iv98A7cH mHFUS BGmCfsytTP zMoez vPPEu7WNqF ftXDY vUaV9PRUOh 7K7xT UUz1DJtZNv XjKa4 5ZTk/MmNzr 3SJ5y yjAqZOpB0c 3LJ/J 9879egVrBX dFboF nnaaD9egqP +lXQq qWrelfrry5 aPb7G k44InGG5uM t/KLQ oCH77rL1lV U+RVt EwjiT7mgrp ixWKR mU8VxkzwHa I2ijY TYfb5tomJV 9LeCU GR08UB6ewn +Zuvv oAbKrAY99v krRls LgctZ3JoSq h1uvb 3LcdKFcuzy 8f2x6 xvJFUA9wZk pc7l+ a4RTXLClaE sEuyS 1oZXNldZVC 1tep9 tOb5LG2HCK utZu2 p1ob4sipv7 PHY01 ziJBdh674t YO/Ne r/6zgajhop 9mH05 +r95Uwy6k5 36url Ns9i77nC+4 X7pgY lCex2Cfo9r mi1lr XCrpHXyYML By994 t9Fxvpcxs9 e3lx4 ChySHHn+b+ O31w0 GHe4+wjrR9 Z/hdb Bd0f2KY4pf eOdWV 0iXtjusePh p4tLf Lholuc1ff3 x/TPV SpWKW28AlB iaITn 07mn5w+lXX q6enk 78Q1F9bbwI k9c60 vvG/wbNDZ8 +d8z5 3p9+w/ed71 /LELz viFLwSe8Us kcKlz oN6w6jm7Ji oGHQY 4ojmZma88F e4Znj n56zz8yiKG va+eu gBg7tMK/JH h61HX u54YcER1sa v56Fb 5cwu0s06A9 FlzF3 249H8BgSv2 mvcbf tE7jF3gSQ5 +6j06 8UTNtrxc6Y EnP2X /0I349BB5N cWEzk TbJ7lBneH2 Jy8/X vh4/EnWk5m nxT8r /3u4kZIGs5 94/DI wFTs1/lz0/ NOvm1 +ov9j/0u5l 73TY9 E5RBj4kTzm 8UX9z 4C3rbf+7mH cTM7n hev2lH8x+6 PkY9P Wwp3bPx68T 94Tz+ wplbmRzdHJ lYW0K GF6nr9PrGb EzIDA zq1GgLek6F 0NvbG 2nO9XnA6Gm RGV2a SWhN3VdxT8 IZWln aHQgMjkvU3 VidHl lHI5PeWGlQ S9GaW q2GBTaWcqh dGVEZ WNvZGUvVHl wZS9Y E4KzQNR5F7 dpZHR wZZG0Rf5Ln XRzUG PmY19mdC0q ZW50I AlkHIIsD4S oIDI4 La8nxTAsJJ 0KeJz twTEBAAAAw qD+qW pSF9RITWPM AB4G+ 2OKjwplbmR zdHJl ZB2KQX2zq3 JqCjE 1PWKdh2OlL jw8L0 MvuY3rJ2Oh Y2VbL 7kZU1Lod1F kIDEy DPKpSm2eBK VpZ2h 9HKT8C8D5Y nR5cG UfHT7uH0Ua Rmlsd YYfV1QcOKY lRGVj e0WhY5HmA0 9kZVB eur1nNMmzK 29sdW 1ucyAxODIv Q29sb 3JzIDMvUHJ lZGlj lN8nSNA2I9 JpdHN QBLDKv46lz 25lbn QgOD4+L1R5 cGUvW Z5ssvCfaO3 XaWR0 aCAxODIvU0 1hc2s gMTMgMCBSL 0JpdH KHBHNWy74f b25lb iLlCD9OepD lcnBv oEC6MFW9nw VlL0x jgze6gZW5H DQ1Pj 6iqUDjVN1Z eNrtm wlUVEfWx2/ iJHMm 0bhGWRqatW VzwSW OE+PESEKMi iua0T gaYjQRjQIa AiKgQ NN00/vCqoC ANoLs n6RCummYFb FlURF QUUFAQJRFY Kq6ka EfuonXS14T d97R4 +t671Xd+tW 9/3vr WZ6rhHTAJ6 r5x2e mM4r0XSJOi eTElf KHr65/12/X xaRXh YESxBxF4Uq 4qOf/ hdXq3qG6FM M/NQv 74Ft3FvBC3 zc9NW mZV0/Ps75G kRfLF Dt9DIjDqTu Eoj8X nR7OKjaDyQ z+1fe hG7wUWebaI ChRQI yBVNlgtp1q uL3+1 7xKg6NfUvZ pJZWN Y96/hqbHqw +Gw6S aAW16unaCH ZbxM0 394EMHUHTZ 6hCDy Y3aItcajME Lc0Cd Jyw4qNzG4L K8rCv 3BjZqbHmam le12v HkpLQFlc8b 7uRl3 hGppTdrGl5 1/+qb Wr/BR2AdPZ D0AkN S8VSA0gPc7 ARQp4 AfKTO0VCD3 5ojYe afADFeYQia fzJT4 aYtDLEwmgx I5ID7 /zUZE/JeZU xzo8E KIx9EiIGcw XS6eJ gZm7q72s1I Xja2P GPcAw0aZ7G LudVk /Rm1sR8T7o hyRlQ eigcAEJWpq boXUB mT/DCAwYDr N1f/3 NwWIoWbsRY R2shC 0OehkBOYNc 7/2xg MG2DCw5CpH 9tfcd d8Dd0BOHBq RL/YJ dzqnyrrXVp COPN/ AXtNxz5g36 SOLOMON+6 ZL94fF4cAK EaCgk 5CV2flhk6x p2ujn WOmIuPrlix Gh+uc R0xyHcFZSC QBl+u vv/bJdUaDH k4rIC veMjPj69g6 h615u VZUBl5pYSo dr60G LTJL0StYD4 giIFJ dpGTtaf1K+ zGkJM LWm4I56EIF 5/X+F uK30Xbnv5m 4YUGM dR9MZY7gP0 UKECH sMETHcGgT6 yKVxP aOdLdl28G2 BRXCk l92Csv+yfO ymJoC KO+hkGfq7J 4vInz dqjPaEgQYV JlrDF Hsl4xO+0cM 90FqQ jrInUHKBqW TQpxt qH6suxUGtG SPzCJ jhjqXoLIHh 1rD97 lk/kdPRud0 hNS6z zwkJLx12RE 7vNOg ygOhGWHUiL vOa/N Q70k4UaNdj SwkUl YYB9T304t0 UiCGX 8+5iSZcTlF gwbhF 3ITB32Nsaf m+8L9 BKzla468uL ZtPDU TCLDePtYJL 9B0s8 EvoI0gQ4s+ 0/dlF gwIaPbGDCY TBgfr U33D+uoOtZ W298I cfCNNGIZgt I64QW 4UqvNVe3lh Wn3Bh AVPSfG3XZ2 w+Xsa 6ADuKj9Kc7 xxCY6 WIy4vn9uRN 2KTL0 cBFln1v9+K zrvwn FkrSxl9og0 EvF1f IgEphQ/JV5 nKl1M r4+X2P2Pui +UNKq Awno/OKnmN OJN4Y djtHXP6E8O mdh4j OAKNF6d39M JM40K typVI7WQG8 5OGzN 7eDc6wG7Kh BywRk RyK4eoeNji 1Wb2k SDtiuoc+Bj mkTjl defOz5KBw8 TgBID oQ2bxccNM1 p4pMM BM3sgqhCG5 dwNJM NTW0sD9Knp GLRor 98BBRcgOsd klImv sGReQ1O9nW Q6ifx u/JLvEF6C0 XBIA1 0ezPEgrAja 8GuvG ZEu8Yu+Joy IzNsW ILyM4hy4Wu eJJr6 wef54U3Ubm ZiMEp juBDMHhedn 3U9BA +XegtlbA+Q PNN09 3aDCABLHyT dvhEC shE5iqkU06 qBGO8 M2AKWrJwY0 aqt9L UlS5CpcIHl 538a/ zHJjbY2yo5 28ZSH BBm9N7nnjJ MHYvA t/CIDJzmg+ 8MIdY kx60O+g6Ya iGP6V jY4Vy3SmXq UJFN1 IR7NmmX7YH Wqcj7 6RGZACF03Q 4xOVL 8nNZBdmcOG glspo yAG0ccyqVT euDDN ZsS2vFsNmN GaCCk r/0Nad3Cq3 lJJ/A zSYoOB6+0G /DgA1 XizwqBz5Qc 7fNAD ANRYz9Rgui empGB Eb/uUREEE5 s4YL5 eQlyTCMLI5 8iTo7 +ToFIPX640 tfnEK TuE4+l+Wla l+UiC r+Wzwe26Mp FXTZu IIgwyV/rosales E3zIE lpDIW4fRyS YOu1A qvacag95eP kPWCE 3tjZsFZXeR 60LO8 dF1ebTZv+w qod7E iIwkV+d4TD E6MXO 9UNPkVP+5p vfU3R jy7j/5UkcF RCqSb 2V7lbFUOXk uDczk 1PKVCb9RnK wNH9r O+vbk6eQ/h 8hAIb bLbMErQUSN VVxxf +ivlXfrUAx Ck2HB SpMrasznYN q02B5 nC+VEZLtDC nbj+o J/9eZ2KJx9 8Cwer AxECstrxDJ cApFx i/rv4OS9JI l9I2E 8aNP08b17q XMHyy Ad/janaImW 8Zk3y yrrRo+IHt/ EMsrr cNp9pNZFuv U6/aL Aoo4em79u6 FH5xR egJYgG4+h9 SXq/C c1g9qC3MC5 XWa3d KU5ZX94nvv oVIkJ crzII2vzUZ Yf3X/ tzciGCchlc xGOFn i+OX0UuD6L IGPD1 XhG7VrbKRT 1NiSx Ssx23lxbPG pGrt+ 4DgYZMtHJ/ tIzaJ tdHHJK8dI0 UQHEY KcXuMQ2NLT 65ENH yjIEFS46n2 VICzc c0dYlaOnj3 JTWS4 r+tbZNtpFg HjVvo N2WqP1zx4e oRkZX 2uhWA8EblD yILuW IvwhFekduL pIq8C P+foUu2Ru4 4mjoM Io+g86TuXb SIo88 jSSK4YGNx+ epnXZ 2OvulAYmIF o0Ttu /7EOvrhug3 qMzQ2 EY9uns6TAZ 5Aruq aCnFSgDoxy QnAEc RSuApAq1zx vh3Ka DX5yq2I2Bt YJ6fk Vmw+EgmGXO yl/tq DzBr7g0zCf LUTZM wZpPk2n+K9 LV2e6 D9anoHA5PU Fkc22 jAr9BOOQJY 8y9bt 30O8FBN/Gp kYnOA 151QC0kWkH I1+Cp akW210iy94 3IgrG iujeStIO1c 2jrdg EgI688lEVa Alamg cnwq11ogaR vxAit nZqm1SSaRy D0Uh4 Im+3/mCMnM OcYey PHd90q74Fb V8AkY 1ko6rAWocV dWdUd pPWncsQV3U IMSgk AwfMpc6KoO AiOaN FRGejyIsQm QWldf J3+tqtuxOX C+D9w 99Ynampa+r NnL97 cblq+7q8yI mYIiR EYLbnJCO+v HURZQ pe+gl5gyc3 L+VFb MBgZLvdE14 UM+qj m0KxWYm9Ix U71wu mg0kO1q3CU IdD2o kP8F7JLAEf KLyqt PrtDhXZq8g CXJhG AXVKbeOjwX JVpEX mjAKRh4+ei E1pzX 15RJLlnXKC qBapS U680jFq6+S ccizn kYqczxwkUB xFiBD fBkEbCGx6d +0dvb OxFtHhmTkl 97zQ0 qKcbVyYP7Y Y2J3M SSb3ay2zti 5vk13 f3RZBqMFEb 8DAQ8 OMvwat1si0 YRoZI nPOdtGT42a FiL5H YcuPSFfXM5 z66/C 2OyS+JCLfO 56X09 CrLMPxatbm Oh6/O PZeM7EGbY4 NzQkd URb2oNAGBD 7i4GG vpANr1OZkZ JH+PP Pn1UHp8LSh PI8mT z+We8rszgn lyF9b hOFVrcHyjS ocwD0 Z9dPo5+iX0 iJa66 Ps1ZU8UWNV hZZ4e eQtbzOnRBw U1Vh5 JZJVCjAUlR wI7tI QicaIaEmhB xRoSM HfTgwD3LuY sFiMS OmwSe/3R5P kXo0d oErBjoEkOV Xup3I Yl3TbqdELj y2S3K B41krOWOca kPFnl ZQtmPoWcbX G3mNQ QhLUUU6V2n iyHb0 zR+vlc1pa2 2wJlj 3aNIfecbX1 AQkzD w7fMqIf9oW xC8gT D1SACG5BoT 0+hYQ Wisdw4seQ3 7yzl3 RtY7Gb4taa tl6mX Iww0eg5Upf Z1EEB 6CyzOsoI4i YYQqR I9m6YhpcNO oYgZf G2qSVSZFSx rPe6B 73PQ5hVasv ZiOjx x9TZih2pE8 eU4TS KoW5eB7g8T m4POM qT8fbp16iR ngcoU GtmKvm23Mk t/LGf Dn+Gc0VxEB O+CJS e1TyI0n7PJ lStyS 5agRyUOA5M Ip/7X VJgexZCd7P 9yksD KfG4gZhTyg uax6S c/p0sdRN/L FNUXa UjstoyUvxh 4uoDw 8k00Usw0ij GKyX/ hsRPX+2Nxv k3Wli b7K51nGU4Q CtrHh 74kWRsbh6/ aRftQ eTguiFKbvG eUy8K tKAstCLjsk vwR6Z aHEGYJKnwi ejhRG Ztg+TXkN/a xWC3R GLvYyQNqDL 107Ba WUfN5yrYiJ wAJCH F/Lhs6UxTm Z1yMh M+cgq3Mdp/ LXZ3d yD1k9puUZO brBOA yIAZlCvlD6 Tbk0j BypHItGJdK K+sK6 cg7Q6cBzdl jVK8m PQyvFmIFow 23YJ5 xJr77Zh4b0 Q5goy sIQE6HdA+c 4htff P987z4v0QZ 5YA6+ GQlMJ31lXP wMY0c KLntgnemkD ZYMKg F0DrzQLRi5 FlrE9 O78M9rMbh5 yVpuH pmdp9NKiJt uy80j rXApuv+73M LrDyz ZKRM/98S7L agN8j ckqplTQmD8 1YHvO MBMwR/akHh 4AxMJ fsuDarV6J7 rhIye HjhJR44DK1 puOmx g2saPKv2Po FAXH/ Qo26AWMZew q9AXb zuhsEFbceX iIk05 u19q5zCFcE bzQZ5 gzkuKzb/Y9 ra0NK VYn/HGXGl1 1lf/O BgcGzH3VST Gf0EC J1cUtIBUgB XFR4v deiXmrTV0x DT5Xb S85LzBvuPJ wLKBr r/n8OZL7EG fISUl qKtHI5YM35 WhvSE eL70QRb16K A/6/d uuBJNd6qMP TL/Oz e+/oXJjugs erzcM ONADVx6soc 97Q/L h7WfUDj1g+ kQVTX NXAtS3BYHG OuIJz Yc2zvPLnw4 DGx6Z Wp8BEJ/joq PH+8M 0EqBTEac0X RApMd E2ZNv4y1dX FvmYj 6jEH8NRd5e 1PHku A76AFjh+oz ppq5G L3FO27GDW8 /SigJ MnYq9vMCcg vRP9c azlI+mUX3t 9kfX4 PJbOvzS+0r G1HUt 0DJTcpGptb dlHOT Zu6TQeJHuS scheduling clerk+l U1yeiL98u/ Hs3z+ AjZZ6pkZMe fx4fP 8mbWlV/XuL eWj8H ppzrvL2EW7 v2dQ6 +WfX/lfvo2 ZtsU0 JTiiVeO/SX UJYyA QoV7oYE8tr 9r7Is a+xTNzlnNF 37wH3 7D1b0vkRkd Gddar aM6bRG7sXo Q1+Jm rfJ4LA9/h0 VO6Ee tDSSPw70H4 rhO97 p4akLmJQYd LX3jt FjoBVTFjpj 7/M1a IiV+8R0Stp a2pbY Y0eIl0mZH+ WvOuw 4wxUSxwWa9 r/e8A CPlpUlKBLE jE6p7 I3p57J0r/1 xB8P/ R6MVPnwoqv gnJZe Q+hbyl5qBo bOJ1z M31zel/vCq u7VQ8 /bY+yO2/ce lVU2N R0sZ8ECGMk ouNt5 XXzTB/UWkV d13Kh 6CEpUnJXos Y6dyG xrf/oWkbeH 5FHf/ Sem52ZKpqb B4Dp+ goafs0ngON ms0D/ PAfUkdbF5O eTtgQ 2N27REogQ1 CALKb mgwiQLKZEt O8pvS /9aJaT7S6x A552o tOitrmt+sn v8Plv WX9NaslzTt dHJlY A0UQZ2xf0P qCjE1 MHGyx8DzUm w8L0d ns3OuPAfcS y9Ucm Qzh0YqyuXk Y3kvS GD0yvEkQ4a gZmFs i1IkG3EsQU EgMCB XQs9wN91zh GVudH NbMiAwIFIg MTYgM CBSIDMgMCB SXS9U qIOiP3EdP5 UvUmV qs9KaE5RdP DwvQ2 4eq5LHoTRw ZTw8L 3KlXeQ1ySJ SR0Ig MTEgMCBSPj 4vUHJ mS1ZbsNGzY 1BERi NgURQ7gAWt SW1hZ 3MWXF3TlPE nZUMg K9ujUBkzAW 0vRm9 dmAg6P8ifW m8gMT zvKCHHS0ul bHYgM IcoDQSCW8a pMCAx KHCwCi5XNL 9iIDE 5DPQlGw2+L 1hPYm qxI8K7MX21 ZzEwN rZ2NmUmDEI wIFIv gG3bPLHdNC EgMTQ gMCBSPj4+P i9QYX JlbnQgOSAw IFIvT IQfwGZFe3k bMCAw YBYzIeJ9LC JdPj4 UDL7qe5OqP jkgMC BvYmoKPDwv S2lkc 1sxNSAwIFJ dL1R5 cGUvUGFnZX MvQ29 2zoYsDH6ET XJlbn QgNyAwIFI+ Pgplb mRvYmoKMjA gMCBv YmoKPDwvR3 JvdXA 9RG3VJ0MmH W5zcG VpKI6eeX7W U1svS UNDQmFzZWQ gMTIg MCBSXT4+L1 N1YnR 6wJPuQz9cs S9GaW f5CZUsVdit dGVEZ WNvZGUvTWF 0cml4 WzEgMCAwID EgMCA nOG6EvVHyI 1hPYm ovU0NtHp4u bVR5c VMsNQ2ZRBI vdXJj BNX5EY9Wir 9jU2V 7Ag2EZESsC GV4dC 9JbWFnZUMv SW1hZ 0QYR1rlWDt lSV0v ZU6oynSdmT w8L2l yWQN7OPkcR DE0ID AgUj4+Pj4v TGVuZ 3WiPIOkE7Q Cb3hb DZTvOUP3Af AyOV0 +FkX3ahIjf Qp4nN WCiPN6VQZz NFRwy QcAFBADCgp lbmRz pJKqKL9SLN 5kb2J cZgM6WBPht 2JqCj w9L2QgxUWy ci9Gb QI9RUOdN73 kZS9M ER7uyUhiCJ QzND4 +c9WiSGYmJ nicvV wKs0i4IH7x r9DMv ZiZYiTZkq3 2iQJt lRlfR68n9g 43N65 UbsfINaV4c 39/a4 TpX3GZ1R5p k1iyJ K011184jjK 6hohP EYZfKpArbI Y8ym3 hRgN2NXa89 ieCOR YOGmbotzfF cDWYI Bbn1HTSrkO BxIGh 9ZNQyX4H3+ YJ9W7 khwzB1+DRz MOoK2 zHcTEmKFj9 ZU1mv 7zr/I2CX98 gNAre jFE6tskSf1 JDmXC ZQ69ZxTS3j gNwdR oEn3LjHNNc E1+t3 4+ibJfmHdS lno+s Vrv2pxduJ9 R53K8 FOIQR2/61C Hc3A+ 7KEHC0xWpf jQyTf Lr099nyVuG axog/ l1ULcSppH5 dvNWD /bjb+rDvzW mjmsL AFeOmFF4Dc hYl8h LlyFF4V9jR jTZ6l EbZre2R058 Eutr5 7CKSMwUFO8 jY2DG 8/NG1A5/LV CbEZq eZrj/o9Ilh DxmLc mkqieXsBxi B04Wb bHDkunOvzY xBuCj htdDIy8nR3 h24Ry qjbbQxaK/j PtwNI DwJ+BuPbad NZw4s DtBXWTMqF9 st9b1 nIpv5kubHF H7c4V ezJgrFG1jQ ky4tw fnUnz3FFAv X1GQM lqCXGcDwf3 PRnn0 t3rvIWI/uB mx1xO XD1z1Xux7Z dFZkP T3CsmUV8cV e3pjs y6arJNYhor GMAZ5 8KOG3xOTeG uCvcI 0aU37bP+2G Yy14Q r2S9a/sMaY NcBs+ sPg1G9J5XV GgKKi e2x+v1EQCL E1xuA 9XFGSwUWj5 zyKLd SpZCJsqg/s fpttJ /qWqvEA3Rv TrM48 gHCP0A5QQU RyR8z lW92GoHJ7y Glbjr DHxZaMQ0Ez 3Ije4 pjyY0R6KEY ofpoq ygECTdSUJ1 aDx3E DfJqBTq4ct IZDuz zsZMTTPjSb 6UpVO 0KSaN6kiYG OT6Nr 02CBsZxeuC RlNO1 okMt/IoENE 5045F 2biR/UmYhk +yGuC vANb0T7atr 6b1YP kue+iYk9/x ug5kq y6Wudj7djh E8A5s BHBsFb6PsL BJ7Pv C0zOw+t0zd /v1MF VPoJTarvAx 4agLS TBNt4mnGN/ ZxlEc Mh7XNitoZQ 8q1Wo GnY2DXsHAI La769 oEFFAXwKgQ aIUYx BcQCbUFSnR v/0j0 6P3/BC1h6W f0O0o aE2i9v89CC 4PxGJ ouu1qDx8yl gaipz 2heGPiTNjL HOxgE mbnDtoIX5y mbk+p LqZtnf51gn ZO5xO YwEYoRVoub bkuLq 0Shre31Y+x P04q6 kn3ZX8Z2io Qg+t1 1lv4Y/7MEm wgkJw vGOAwx1GOI 1atzl ht4JSCoGCd fXCv3 B/sX7MXozc U/Lev kSr+1RLxsU x6VNK 2P4Bv53nQS rS/jw cicdupSpbX zqBeM X3W/pRXtqj pmrcB no/f8ADqU0 EwT8X je367SjP2/ hYCWN vRV+HdlhXq wvnSQ D+GxV32RZG 6gvjT ooGTV3tdAO 7OPt7 OJqZHTovdz NyjcH k0Ljkv65yO HOgyJ 0EQvhne2RE 4KHoo wXuS9tyK6U pdP2u 9o6fwqySm8 hP7/u eJQITArDX5 VqTDG 4ciGIkDPKJ VGjfd OVW9hDrKpD JDLYK csvIyh3QdU AuurX T538Zw0U2V OyyPV pDi13TVwBX lRud2 zKfSac9sOx 0rV3i XK3XcmI5Ss HOZ6I 6u3XlxQbXJ qcqHE J4h8+GpUeD Fzpgf intm8uSJ99 L3lVd 9zy1v0eOcw LXKnD mTlb8saq0y LKIbS j4dJxQbUOp y5Jmz oEriHN9qsz d0868 LDkBnneXHa MXzMw t0Gh7aXG4g JctZ/ o/2t1NxHFL kyRbL XJZd7kfKBD Lk4PC XVaa50yQQI QC0JT TZcJbs2Uu/ cKIF7 9aSPShsF4s JS9JS Wl7+vKmtfG vctlC GFr2Brf7v+ msxwh ZcKFtZQh5S k6bw7 9M+cevhCVf Ev0x+ 5ewplbmRzd HJlYW 2BUN2xr2Al CjE5I TDav0QnMjd 8L05h bWUvSGVPYi 9TdWJ 4xJTsK0Z4g GUxL1 Q4rBQyVw4z dC9CY UAhIm4znQ3 IZWx2 KYXoK5WuC7 JsaXF 5ZH8XhgFoY GluZy 0ZiN1HlgWt RW5jb 2Rpbmc+Pgp lbmRv YmoKMTcgMC BvYmo KPDwvTmFtZ S9IZU UvG3Q6UpN7 cGUvV HlwZTEvVHl wZS9G j004M2Rbf3 VGb25 0V8ebrCAxy GljYS 9Mx7fiK8Io Y29ka Z2fY5fjffQ uc2lF bmNvZGluZz 4+CmV bEL8liqymY CAwIG 4hgpq4QZ1T YW1lL 1yltRFqU3T idHlw JL9YbSZdVG 9UeXB rP8ApgwYwR mFzZU ZvbnQvSGVs dmV0a TDtY0CzO76 kaW5n Z2kqfvWqa4 lFbmN vZGluZz4+C mVuZG 0xsmy6LNUb b2JqC xf8Tf5PSM9 kb2Jq CjUgMCBvYm oKPDw vRGVzdHMgM jEgMC BRFa0TMQ3l b2JqC yXgEMFts9G qCjw8 N3TmKTYzBH BSL1h SIhHjJsM5W TAgbn VsbF0+Pgpl bmRvY moKMjMgMCB vYmoK PDwvRFsxNS AwIFI hUWiwXEH0M DcwOC BudWxsXT4+ CmVuZ Y4mrxesLTG wIG9i cti1WZ0MPj E1IDA hYs0HRWrjM zYgNj B2AX22wSpv Pj4KZ V7gr2UkMqO xIDAg r7MhYir1V5 5hbWV fQzfgS7OvW jhiMG TkXPMgSO31 ZmZiL ThmNmUtOWU 0NDY3 WCy7ORpqHO AyMiA wIFIoTUtNR y1QaH ikfJEyUM4y Q29uc 3VsdCkgMjM gMCBS KC19P1EaMN JiMi1 zDLJ2FJXqA DctOD Y0DP30HPGz NzYwY 2ZlMTcpIDI 0IDAg Ul0+Pgplbm RvYmo KMTAgMCBvY moKPD wvRGVzdChN S01HL DJmbTVbQ0o hbiBD q87ouQt4SK 9QYXJ lbnQgNiAwI FIvVG c4aJQ3UlPp ZjAwN GRyETR8AQW 3OTAw TjQpJHL2EH A2MzA wNjkwMDYxM DA2ZT AwMjAwMDQz MDA2Z jAwNmUwMDc zMDA3 NTAwNmMwMD c0Pj4 +YhIrQI7sg goyNS UvCI2aprn3 PC9Nb 2REYXRlKEQ 6MjAy IFH7YEPlFw EyMzA tMDQnMDAnK S9Dcm VhdGlvbkRh dGUoR DoyMDIwMDQ xMDEy MTIzMCstNC cwMCc rW3Sci6C7U 2VyKE liZXggUERG IENyZ XZ3j1XaRM3 5LjAu MTUvODQzOC BbSkF OCG5AJ8J6R G1vZG lmaWVkIHVz aW5nI TySVTy3NIF uMS43 JRU4FESTH4 hUKT4 +DoXhNE8bb gp4cm VmCjAgMjYK MDAwM DAwMDAwMCA 2NTUz NSBmIAowMD AwMDA kCFE3QCMbZ DAwIG 4gCjAwMDAw MDAxM DMgMDAwMDA gbiAK MDAwMDAwMD E3OSA wMDAwMCBuI AowMD AwMDAwMzE0 IDAwM RNoAR2kLwJ wMDAw MTAyNjEgMD AwMDA gbiAKMDAwM DAwMD W5HYSmTMCj MCBuI AowMDAwMDA wNDI3 IDAwMDAwIG 4gCjA wMDAwMTAyN DEgMD AwMDAgbiAK MDAwM KUmZPD0DKW wMDAw MCBuIAowMD AwMDE sIHx7HRGeB DAwIG 4gCjAwMDAw MDA1N DMgMDAwMDA gbiAK MDAwMDAwMD U3OCA wMDAwMCBuI AowMD AwMDAzMjQ3 IDAwM DBfLM9vOjU wMDAw BHQ4WyAsDP AwMDA gbiAKMDAwM DAwNz czOCAwMDAw MCBuI AowMDAwMDA 4NDI4 IDAwMDAwIG 4gCjA wMDAwMTAwM zggMD AwMDAgbiAK MDAwM OKrEJC6FoC wMDAw MCBuIAowMD AwMDA 5OTMxIDAwM DAwIG 4gCjAwMDAw MDgxM zkgMDAwMDA gbiAK MDAwMDAxMD QzNSA wMDAwMCBuI AowMD AwMDEwMjk0 IDAwM HEfTZ7gWmW wMDAw MTAzNDEgMD AwMDA gbiAKMDAwM DAxMD S4VYEvUWOy MCBuI AowMDAwMDE wNzMw IDAwMDAwIG 4gCnR yYWlsZXIKP DwvSW 5mbyAyNSAw IFIvS UObTlbrQ0C 4MzJm BqMvSTB8FA ExNjl hYzZ9IVKbO 2VhYz YwRk99ZkOp YTM2N vX4XCHcQkR mYjMz PSPfJ0DeU8 UzYTA 4ODM+XS9Sb 290ID SkCDSYG9Xy emUgM jY+PgpzdGF ydHhy JOUZNQD2AU AKJSV FT0YK ID Date Data Source [id number] 08/12/2019 03:36:00 PM EDT [facility] Name Value Range Interpretation Code Description Data Migdalia rce(s) Supporting Document(s ) [id number] Negative [address] Test Performed by: [facility] Department of Pathology and Laboratory [address] [place] [address] REHB# [id number] Colten Guzman MD, Director CD:[id number] [facility] ID Date Data Source [id number] 08/04/2019 12:22:00 AM EDT [facility] [id number]} [facility] Patient: BG DUTTA S Age: 63 years Sex: Female : 1955 Associated Diagnoses: None Author: Tiffany Hartman, Layton Biggs Basic Information Addendum: Pertinent history: While awaiting [...] put in pt chart Ebony Pettit [id number] [address] [id number] PPOAPRIL [id number] signed by Layton Allen MD 08/04/2019 00:22 EDTElectronically signed by Abdoulaye Rodriguez 08/03/2019 17:54 EDTElectronically signed by Abdoulaye Rodriguez 08/03/2019 18:11 EDT Name Value Range Interpretation Code Description Data Imgdalia rce(s) Supporting Document(s ) ID Date Data Source [id number] 08/03/2019 11:46:00 AM EDT [facility] Patient Name: LUZMARIAAugust SMRN: [id number] General DiagnosticACCESSION EXAM DATE/TIME PROCEDURE ORDERING PROVIDER [id number] 08/03/2019 11:03 EDT XR Chest Portable Violeta DO, Sherrell Auth (Verified)[facility] son For Exam(XR Chest Portable) Altered Mental [...] Supporting Document(s ) ID Date Data Source [id number] 08/04/2019 10:55:00 AM EDT [facility] Name Value Range Interpretation Code Description Data Migdalia rce(s) Supporting Document(s ) Hep B Core NA [facility] Test performed by:Rainmaker SystemsAxel Felipe [place], [place] [address]YktipwodCalderon Land M.D. ID Date Data Source [id number] 08/04/2019 08:51:00 AM EDT [facility] Name Value Range Interpretation Code Description Data Migdalia rce(s) Supporting Document(s ) Hep B Core NA [facility] Test performed by:[place] Systems[place], [place] [address]Hzxzwtdxjosiah Land M.D. ID Date Data Source [id number] 08/03/2019 05:07:00 PM EDT [facility] Name Value Range Interpretation Description Data Sup porting Code Source(s) Document(s ) Hep C Ab. Non Reactive NO [facility] Test performed on the Siemens ADVIA Cent aur XP using a diagnostic immunoassay. ID Date Data Source [id number] 08/03/2019 05:06:00 PM EDT [facility] Name Value Range Interpretation Description Data Sup porting Code Source(s) Document(s ) HIV Non Reactive NA [facility] 1/2,p24 [facility] This test was performed on the Siemens [employer] Centaur XP using a two-wash antigen/antibody sandwich [...] permitted by law ID Date Data Source [id number] 08/03/2019 12:36:00 PM EDT [facility] Name Value Range Interpretation Description Data Sup porting Code Source(s) Document(s ) Glucose Lvl 121 65-99 [place] mg/dL [facility] BUN 16.1 6.0-20.0 [place] mg/dL [facility] Creatinine 0.73 0.40-1.0 [place] mg/dL 0 [facility] BUN/Creat 22.1 7.0-29.0 [place] Ratio ratio [facility] Sodium Lvl 138 136-145 [place] mmol/L [facility] Potassium Lvl 4.2 3.5-5.1 [place] mmol/L [facility] Chloride 103 98-107 [place] mmol/L [facility] CO2 25 23-29 [place] mmol/L [facility] AGAP 10 5-15 NO [place] [facility] Calcium Lvl 9.4 8.6-10.0 [place] mg/dL [facility] Total Protein 6.9 6.0-8.3 [place] gm/dL [facility] Albumin Lvl 4.5 3.5-5.0 [place] gm/dL [facility] Glob 2.4 2.0-4.5 [place] gm/dL [facility] A/G Ratio 1.9 1.0-2.2 [place] ratio [facility] Bili Total 0.5 0.3-1.2 [place] mg/dL [facility] Alk Phos 63 IU/L 38-126 NO [facility] AST 19 IU/L 15-41 NO [facility] ALT 14 IU/L 7-40 NO [facility] ID Date Data Source [id number] 08/03/2019 12:29:00 PM EDT [facility] Added by Discern Rule [id number] Name Value Range Interpretation Code Description Data Migdalia rce(s) Supporting Document(s ) eGFR-AA >90 >=60 [facility] mL/min/1.[address] [place] [address] The CKD-EPI equation for non- Breann rican [...] Mild decrease* G3a 45-59 Mild to moderate [id number] 30-44 Moderate to s evere decreaseG4 15-29 Severe decreaseG5 14 or less Kidney fa ilure eGFR-ELIZABETH 81 mL/min/1.73m2 >=60 NO [facility] The CKD-EPI equation for non- [...] Mild decrease* G3a 45-59 Mild to moderate [id number] 30-44 Moderate to s evere decreaseG4 15-29 Severe decreaseG5 14 or less Kidney fa ilure ID Date Data Source [id number] 08/03/2019 12:24:00 PM EDT [facility] Name Value Range Interpretation Description Data Sup porting Code Source(s) Document(s ) Hep C Ab. Non Reactive NO [facility] Test performed on the [employer] aur XP using a diagnostic immunoassay. ID Date Data Source [id number] 08/03/2019 12:21:00 PM EDT [facility] Name Value Range Interpretation Description Data Sup porting Code Source(s) Document(s ) HIV Non Reactive NA [place] 1/2,p24 [facility] This test was performed on the [employer] Centaur XP using a two-wash antigen/antibody sandwich [...] permitted by law ID Date Data Source [id number] 08/03/2019 11:50:00 AM EDT [facility] Name Value Range Interpretation Code Description Data Migdalia rce(s) Supporting Document(s ) TSH 1.00 0.34-5.60 [facility] ID Date Data Source [id number] 08/03/2019 11:36:00 AM EDT [facility] Name Value Range Interpretation Description Data Sup porting Code Source(s) Document(s ) Salicylate Lvl <4.0 4.0-29.9 [place] mg/dL [facility] ID Date Data Source [id number] 08/03/2019 11:36:00 AM EDT [facility] Name Value Range Interpretation Code Description Data Migdalia rce(s) Supporting Document(s ) Ethanol Lvl 0-9 NA [facility] Result created by Discern rule. ID Date Data Source [id number] 08/03/2019 11:35:00 AM EDT [facility] Name Value Range Interpretation Description Data Sup porting Code Source(s) Document(s ) Acetaminoph <10.0 10.0-30. [place] Lvl mcg/mL 0 [facility] ID Date Data Source [id number] 08/03/2019 11:35:00 AM EDT [facility] Name Value Range Interpretation Code Description Data Supporting Source(s) Document(s ) Troponin- <0.03 <=0.05 NO [facility] I ng/mL [facility] ID Date Data Source [id number] 08/03/2019 11:32:00 AM EDT [facility] Name Value Range Interpretation Code Description Data Migdalia rce(s) Supporting Document(s ) Ammonia 27 mcmol/L 11-35 NO [facility] ID Date Data Source [id number] 08/03/2019 11:02:00 AM EDT [facility] Name Value Range Interpretation Description Data Sup porting Code Source(s) Document(s ) Neut Auto 75.7 % 50.0-80.0 NO [facility] Lymph Auto 12.7 % 14.0-44.0 LO [facility] Lamb Auto 10.5 % 0.0-12.0 NO [facility] Eos Auto 0.5 % 0.0-7.0 NO [facility] Baso Auto 0.6 % 0.0-3.0 NO [facility] Neut 3.9 2.0-8.4 NO [place] Absolute x10(3)/[facility] Lymph 0.7 0.6-4.8 NO [place] Absolute x10(3)/[facility] Lamb 0.5 0.0-1.1 NO [place] Absolute x10(3)/[facility] Eos Absolute 0.0 0.0-0.5 NO [place] x10(3)/[facility] Baso 0.0 0.0-0.3 NO [place] Absolute x10(3)/[facility] ID Date Data Source [id number] 08/03/2019 11:02:00 AM EDT [facility] Name Value Range Interpretation Description Data Sup porting Code Source(s) Document(s ) WBC 5.1 4.0-10.5 [place] x10(3)/[facility] RBC 4.05 3.80-5.20 NO [place] x10(6)/[facility] Hgb 12.9 11.4-15.1 [place] gm/dL [facility] Hct 37.7 % 36.0-46.0 NO [facility] MCV 93 fL 80-98 NO [facility] MCH 32.0 pg 26.0-34.0 NO [facility] MCHC 34.3 32.0-36.0 [place] gm/dL [facility] RDW 13.4 % 11.0-15.0 NO [facility] Platelet 266 150-400 [facility] MPV 8.5 fL 8.5-13.0 NO [facility] ID Date Data Source [id number] 08/03/2019 11:32:00 AM EDT [facility] Name Value Range Interpretation Description Data Sup porting Code Source(s) Document(s ) UA Color Yellow NO [facility] UA Appear Clear NO [facility] UA pH 5.0-8.0 NO [facility] UA Spec Grav 1.015 1.005-1.030 NO [facility] UA Glucose Negative NO [facility] UA Ketones Negative NO [facility] UA Urobilinogen 0.2-1.0 NO [facility] UA Bili Negative NO [facility] UA Blood Negative NO [facility] UA Protein Negative NO [facility] UA Nitrite Negative NO [facility] UA Leuk Est Negative NO [facility] ID Date Data Source [id number] 08/03/2019 11:31:00 AM EDT [facility] Name Value Range Interpretation Description Data Sup porting Code Source(s) Document(s ) U Amph Not Detected NA [facility] Result created by [employer] rule.Substance of abuse cutoff levels:Amphetamine...................... .....1000 ng/mlBarbiturate........................ ....200 ng/mlBenzodiazepine..................... ....200 ng/mlCannibinoid........................ .....50 ng/mlCocaine............................ ....300 ng/mlOpiates............................ ....300 ng/mlPhencyclidine (PCP).....................25 ng/mlMethad one..............................300 ng/mlPropoxyphene....................... ....300 ng/mlPlease note: This is a urine screening test only.Positive results are not confirmed by a secondary method.Unconfirmed screening results are to be used only for medical purposes. U Yasemin Scr Not Detected NA [facility] Result created by CompareMyFare rule. U Benzodia Scr Not Detected AB [facility] Result created by Discern rule. U Cannab Scr Not Detected NA [facility] Result created by Discern rule. U Cocaine Scr Not Detected NA [facility] Result created by Discern rule. U Opiate Scr Not Detected NA [facility] Result created by Discern rule. U Phencyclidine Not Detected NA [facility] Result created by Discern rule. U Propoxyphene Not Detected NA [facility] Result created by Discern rule. U Methadone Not Detected NA [facility] Result created by Discern rule. ID Date Data Source [id number] 08/03/2019 10:20:00 AM EDT [facility] Patient Name: LUZMARIA AUGUST SMRN: [id number] Computed TomographyACCESSION EXAM DATE/TIME PROCEDURE ORDERING PROVIDER [id number] 08/03/2019 10:[address] Head WO Zen [...] Supporting Document(s ) ID Date Data Source [id number] 08/07/2019 09:32:00 AM EDT [facility] Zurdo Menoners [id number] Patient: LUZMARIA Aug S Age: 63 years [...] have been torturing me in my dogs. Nani ent is a poor historian, she seems [...] Family/ Social History Medical history: ResolvedFrozen shoulder ([id number]): Resolved.. Surgical history: removal of growth in cervix.pe g tube.Comments:07/14/2013 12:31 EDT - John Walton 10 years 06/09/2013 15:00 SHANELLE Shruti Villafana Lremoved years agort knee surgery.vagus nerve stimulator.Rota [...] 75.7 % Lymph Auto 12.7 % LOW Lamb Auto 10.5 % Eos Auto 0.5 % B aso Auto 0.6 % Neut Absolute 3.9 x10(3)/mcL Lymph Absolute 0.7 x10(3)/mc L Lamb Absolute 0.5 x10(3)/mcL Eos Absolute 0.0 x10(3)/mcL [...] psych admission. Will be alejandro sferred to [facility]. I personally saw and examined the [...] n pt chart Ebony snyder [address] [place] [address] [id number] [facility] PPOAPRIL Z [id number] signed by Sherrell Mcdaniel DO 08/07/2019 09:32 EDTElectronically signed by Charissa LEON, [facility] 08/03/2019 15:44 EDTElectr onically signed by Charissa LEON, [facility] 08/03/2019 15:45 EDT Name Value Range Interpretation Code Description Data Migdalia rce(s) Supporting Document(s ) ID Date Data Source [id number] 08/03/2019 09:37:00 AM EDT [facility] [id number]} [facility] Patient: BG DUTTA S Age: 63 years Sex: Female : 1955 Associated Diagnoses: None Author: Nimo LOPEZ, Juan Carlos Harrell. Basic Information Vital Signs Vital Signs 08/03/2019 [...] Supporting Document(s ) ID Date Data Source [id number] 07/24/2019 01:44:00 PM EDT [facility] Name Value Range Interpretation Description Data Sup porting Code Source(s) Document(s ) Lacosamide Lvl [facility] Reference Range:Expected concentrations of lacosamide in patientsreceiving recommended daily dosages: Up to15.0 mcg /mL.Toxic range not establishedThis test was developed and its analytical performance characteristics have been determined by [employer] [facility] Martinez. I t has not been cleared or approved by the USFood and Drug Administration. This ass ay has been validatedpursuant to the CLIA regulations and is used for clinicalpurp oses.This test performed by:[id number] [place] [address] ID Date Data Source [id number] 07/22/2019 03:27:00 AM EDT [facility] Name Value Range Interpretation Description Data Sup porting Code Source(s) Document(s ) Zonisamide Lvl 10.0-40.0 [facility] This test was developed and its analytic al performancecharacteristics have been determined by [employer] Kiarra yared Martinez. It has not been cleared or approved by the USFood and Drug Administ ration. This assay has been validatedpursuant to the CLIA regulations and is used for clinicalpurposes.This test performed by:[id number] [place] [address] ID Date Data Source [id number] 07/19/2019 08:37:00 AM EDT [facility] Name Value Range Interpretation Code Description Data Migdalia rce(s) Supporting Document(s ) MMA Qnt 87-318 [facility] Test performed by:[employer] SystemsAxel lakshmiLaura Ville [id number] Land M.D. Homocysteine Lvl <10.4 NA [facility] Homocysteine is increased by functional deficiency of folateor vitamin B12. Testing for methylmalonic aciddifferentiates bet ween these deficiencies. Other causesof increased homocysteine include renal charlotte lure, folateantagonists such as methotrexate and phenytoin, andexposure to nitrous ox walker.Nyla Puri, et al. Karol Crab Butcher Med. 1999;131(5):331-9.Test performed by:[place], [place] [address]XozfruakCalderon Land M.D. ID Date Data Source [id number] 07/16/2019 10:53:00 AM EDT [facility] Name Value Range Interpretation Description Data Sup porting Code Source(s) Document(s ) Hemoglobin A1C 5.6 % <=5.6 NO [facility] 5.7-6.4% Pre-diabetes> 6.4% Diagno stic for diabetes(Summarized from [place] [employer] 2018 Standards)This test was performed using the [employer] Hb 9210 Analyzer utilizing Bor[employer] Affinity. ID Date Data Source [id number] 07/16/2019 02:28:00 AM EDT [facility] Name Value Range Interpretation Description Data Sup porting Code Source(s) Document(s ) Vitamin D 65.4 30.0-100. NO [facility] Lvl, Total ng/mL 0 [facility] Vitamin D is an immunoassay performed on the [employer] XP ID Date Data Source [id number] 07/15/2019 10:48:00 PM EDT [facility] Name Value Range Interpretation Description Data Sup porting Code Source(s) Document(s ) Vitamin B12 507 pg/mL 180-914 NO [place] Lvl [facility] ID Date Data Source [id number] 07/15/2019 10:15:00 PM EDT [facility] Name Value Range Interpretation Description Data Sup porting Code Source(s) Document(s ) Neut Auto 77.4 % 50.0-80.0 NO [facility] Lymph Auto 14.3 % 14.0-44.0 NO [facility] Lamb Auto 6.6 % 0.0-12.0 NO [facility] Eos Auto 1.0 % 0.0-7.0 NO [facility] Baso Auto 0.7 % 0.0-3.0 NO [facility] Neut 6.5 2.0-8.4 NO [place] Absolute x10(3)/[facility] Lymph 1.2 0.6-4.8 NO [place] Absolute x10(3)/[facility] Lamb 0.6 0.0-1.1 NO [place] Absolute x10(3)/[facility] Eos Absolute 0.1 0.0-0.5 NO [place] x10(3)/[facility] Baso 0.1 0.0-0.3 NO [place] Absolute x10(3)/[facility] ID Date Data Source [id number] 07/15/2019 10:15:00 PM EDT [facility] Name Value Range Interpretation Description Data Sup porting Code Source(s) Document(s ) WBC 8.4 4.0-10.5 NO [place] x10(3)/[facility] RBC 4.21 3.80-5.20 NO [place] x10(6)/[facility] Hgb 13.7 11.4-15.1 NO [place] gm/dL [facility] Hct 39.4 % 36.0-46.0 NO [facility] MCV 94 fL 80-98 NO [facility] MCH 32.5 pg 26.0-34.0 NO [place] [facility] MCHC 34.7 32.0-36.0 NO [place] gm/dL [facility] RDW 13.7 % 11.0-15.0 NO [facility] Platelet 263 150-400 NO [place] x10(3)/mc [facility] MPV 9.7 fL 8.5-13.0 NO [facility] ID Date Data Source [id number] 07/15/2019 10:00:00 PM EDT [facility] Name Value Range Interpretation Description Data Sup porting Code Source(s) Document(s ) Glucose Lvl 95 mg/dL 65-99 [facility] BUN 23.1 6.0-20.0 HI [place] mg/dL [facility] Creatinine 0.84 0.40-1.0 NO [place] mg/dL 0 [facility] BUN/Creat 27.5 7.0-29.0 NO [place] Ratio ratio [facility] Sodium Lvl 140 136-145 NO [place] mmol/L [facility] Potassium Lvl 3.9 3.5-5.1 NO [place] mmol/L [facility] Chloride 107 98-107 NO [place] mmol/L [facility] CO2 22 23-29 LO [place] mmol/L [facility] AGAP 11 5-15 [facility] Calcium Lvl 9.8 8.6-10.0 NO [place] mg/dL [facility] Total Protein 6.5 6.0-8.3 NO [place] gm/dL [facility] Albumin Lvl 4.6 3.5-5.0 NO [place] gm/dL [facility] Glob 1.9 2.0-4.5 LO [place] gm/dL [facility] A/G Ratio 2.4 1.0-2.2 HI [place] ratio [facility] Bili Total 0.5 0.3-1.2 NO [place] mg/dL [facility] Alk Phos 86 IU/L 38-126 NO [facility] AST 17 IU/L 15-41 NO [facility] ALT 14 IU/L 7-40 NO [facility] ID Date Data Source [id number] 07/15/2019 09:54:00 PM EDT [facility] Added by Discern Rule [id number] Name Value Range Interpretation Code Description Data Migdalia rce(s) Supporting Document(s ) eGFR-AA 84 >=60 [facility] mL/min/1.[address] [place] [address] The CKD-EPI equation for non- Breann rican [...] Mild decrease* G3a 45-59 Mild to moderate wlojalmlP6m 30-44 Moderate to s evere decreaseG4 15-29 Severe decreaseG5 14 or less Kidney fa ilure eGFR-ELIZABETH 69 mL/min/1.73m2 >=60 NO [facility] The CKD-EPI equation for non- [...] Mild decrease* G3a 45-59 Mild to moderate [id number] 30-44 Moderate to s evere decreaseG4 15-29 Severe decreaseG5 14 or less Kidney fa ilure Procedure Social History Code Duration Value Status Description Data Source(s ) Smoking 08/03/2019 Never smoked completed Never smoked No alth - 12:26:18 PM EDT tobacco tobacco (finding) [facility] (finding) Center Smoking 08/03/2019 Never smoked completed Never smoked [facility] alth - 12:26:18 PM EDT tobacco tobacco (finding) [facility] (finding) Center Smoking 08/03/2019 Never smoked completed Never smoked [employer] alth - 12:26:18 PM EDT tobacco tobacco (finding) [facility] (finding) [facility] Smoking 08/03/2019 Never smoked completed Never smoked [place] alth - 12:26:18 PM EDT tobacco tobacco (finding) [facility] (finding) [facility] Vital Signs ID Date Data Source UNK Name Value Range Interpretation Code Description Data Source(s) Diastolic blood 82 mm[Hg] 60-90 mmHg Normal (applies to 82 mm[Hg] N [employer] pressure non-numeric results) - [facility] Systolic blood 124 mm[Hg] 90-130 mmHg Normal (applies to 124 mm[Hg] N [email or web address] pressure non-numeric results) - [facility] Oxygen therapy [facility] alth [Minimum Data - [place] Set] Hospital Center Oxygen saturation 100 % 94-100 % Normal (applies to 100 % Stufflepowells pointAtlas Powered in Blood non-numeric results) - [facility] Postductal by Hospital Pulse oximetry Center Diastolic blood 62 mm[Hg] 60-90 mmHg Normal (applies to 62 mm[Hg] N [employer] pressure non-numeric results) - [facility] Systolic blood 116 mm[Hg] 90-130 mmHg Normal (applies to 116 mm[Hg] [facility] pressure non-numeric results) - [facility] Respiratory rate 18 br/min 14-20 Normal (applies to 18 br/min [place] [facility] br/min non-numeric results) - [facility] Heart rate 64 bpm 60-100 bpm Normal (applies to 64 bpm [place] [facility] non-numeric results) - [facility] Oral temperature 97.1 [degF] 96.4-99.1 Normal (applies to 97.1 [degF ] [facility] DegF non-numeric results) - [facility] Oxygen therapy [facility] alth [Minimum Data - [place] Set] [facility] Oxygen saturation 100 % 94-100 % Normal (applies to 100 % [place] [facility] in Blood non-numeric results) - [facility] Postductal by [facility] Pulse oximetry [place] Diastolic blood 71 mm[Hg] 60-90 mmHg Normal (applies to 71 mm[Hg] [facility] pressure non-numeric results) - [facility] Systolic blood 109 mm[Hg] 90-130 mmHg Normal (applies to 109 mm[Hg] [facility] pressure non-numeric results) - [facility] Respiratory rate 18 br/min 14-20 Normal (applies to 18 br/min [place] br/min non-numeric results) - [facility] Heart rate 67 bpm 60-100 bpm Normal (applies to 67 bpm [place] [facility] non-numeric results) - [facility] Oral temperature 97.5 [degF] 96.4-99.1 Normal (applies to 97.5 [degF ] [facility] DegF non-numeric results) - [facility] Respiratory rate 18 br/min 14-20 Normal (applies to 18 br/min [place] br/min non-numeric results) - [facility] Oral temperature 97.7 [degF] 96.4-99.1 Normal (applies to 97.7 [degF ] [facility] DegF non-numeric results) - [facility] Oxygen saturation 97 % 94-100 % Normal (applies to 97 % [facility] in Blood non-numeric results) - [facility] Postductal by [place] Pulse oximetry [facility] Heart rate 62 bpm 60-100 bpm Normal (applies to 62 bpm [facility] e Health non-numeric results) - [facility] Diastolic blood 74 mm[Hg] 60-90 mmHg Normal (applies to 74 mm[Hg] N [facility] Health pressure non-numeric results) - [facility] Systolic blood 110 mm[Hg] 90-130 mmHg Normal (applies to 110 mm[Hg] N [facility] Health pressure non-numeric results) - [facility] Oxygen therapy [place] [facility] alth [Minimum Data - Zurdo Set] [facility] Oral temperature 98.1 [degF] 96.4-99.1 Normal (applies to 98.1 [degF ] [facility] DegF non-numeric results) - [facility] Oxygen saturation 95 % 94-100 % Normal (applies to 95 % Zaarly in Blood non-numeric results) - [facility] Postductal by [place] Pulse oximetry Medical Ce nter Heart rate 75 bpm 60-100 bpm Normal (applies to 75 bpm [employer] non-numeric results) - [facility] Mean blood 80 mm[Hg] 80 mm[Hg] [facility] pressure by - [place] Noninvasive [facility] Diastolic blood 67 mm[Hg] 60-90 mmHg Normal (applies to 67 mm[Hg] N [facility] pressure non-numeric results) - [facility] Systolic blood 106 mm[Hg] 90-130 mmHg Normal (applies to 106 mm[Hg] N [facility] pressure non-numeric results) - [facility] Oxygen therapy [facility] He alth [Minimum Data - Zur[place] Set] [facility] Respiratory rate 18 br/min 14-20 Normal (applies to 18 br/min [facility] br/min non-numeric results) - [facility] Oral temperature 98.4 [degF] 96.4-99.1 Normal (applies to 98.4 [degF ] [facility] DegF non-numeric results) - [facility] Oxygen saturation 99 % 94-100 % Normal (applies to 99 % [facility] in Blood non-numeric results) - [facility] Postductal by [place] Pulse oximetry Medical Ce nter Heart rate 79 bpm 60-100 bpm Normal (applies to 79 bpm [facility] non-numeric results) - [facility] Mean blood 92 mm[Hg] 92 mm[Hg] Health System pressure by - [facility] Diastolic blood 77 mm[Hg] 60-90 mmHg Normal (applies to 77 mm[Hg] N [facility] pressure non-numeric results) - [facility] Systolic blood 122 mm[Hg] 90-130 mmHg Normal (applies to 122 mm[Hg] N [facility] pressure non-numeric results) - [facility] Respiratory rate 16 br/min 14-20 Normal (applies to 16 br/min Health System br/min non-numeric results) - [facility] Body mass index 17.6 kg/m2 17.6 kg/m2 [facility] ealt (BMI) [Ratio] - [facility] Body weight 46.75 kg 46.75 kg [facility] Measured - [facility] Body height 163 cm 163 cm [facility] - [facility] Body mass index 17.6 kg/m2 17.6 kg/m2 [facility] ealth (BMI) [Ratio] - [facility] Oxygen therapy [facility] [[facility] Data - [facility]] [facility] Patient Treatment Plan of Care Planned Activity Planned Date Details Description Data Source (s) Prazosin 1 MG Oral 08/12/2019 11:09:00 [facility] olanzapine 10 mg oral 08/12/2019 11:09:00 [facility] Health - tablet AM [facility] Lorazepam 2 MG Oral 08/12/2019 11:09:00 [facility] Tablet AM [facility] hydrOXYzine 08/12/2019 11:09:00 [facility] - AM [facility] Vitamin D3 08/03/2019 10:52:00 [facility] - PM [facility] Vitamin D3 08/03/2019 10:52:00 [facility] zonisamide 100 MG Oral 08/03/2019 04:21:00 [facility] Pivot - Capsule PM [facility] zonisamide 100 MG Oral 08/03/2019 04:21:00 [place] - Capsule PM EDT [facility] clobazam 20 MG Oral 08/03/2019 04:20:00 [facility] - Tablet PM EDT [facility] clobazam 20 MG Oral 08/03/2019 04:20:00 [facility] - Tablet PM EDT [facility] lacosamide 200 MG Oral 08/03/2019 04:19:00 [place] - Tablet PM EDT [facility] lacosamide 200 MG Oral 08/03/2019 04:19:00 [place] - Tablet PM EDT [facility]
[2020-02-14 07:52] VITALS: BMI 16.9
--- OUTSIDE RECORDS SUMMARY | 2020-02-20 05:59 | XMS ---
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 [id number] 12/19/2019 02:48:00 PM EDT [facility] Name Value Range Interpretation Description Data Sup porting Code Source(s) Document(s ) SARS [facility] coronavirus 2 RNA This lab was ordered by [facility] and reported by [facility]. ID Date Data Source [id number] 12/15/2019 12:00:00 AM EDT [facility] Name Value Range Interpretation Code Description Data Migdalia rce(s) Supporting Document(s ) 2019-nCoV [facility] RNA XXX ELIZABETH+probe- Imp This lab was ordered by [facility] and reported by [employer] ID Date Data Source [id number] 10/14/2019 12:00:00 AM EDT [facility] Name Value Range Interpretation Code Description Data Migdalia rce(s) Supporting Document(s ) 2018-nCoV [facility] RNA XXX ELIZABETH+probe- Imp This lab was ordered by [facility] and reported by [employer] ID Date Data Source [id number] 08/17/2019 08:19:00 AM EDT [facility] Name Value Range Interpretation Description Data Sup porting Code Source(s) Document(s ) Neut Auto 57.1 % 40.0-70.0 NO [facility] Lymph Auto 29.3 % 22.0-44.0 NO [facility] [place] Auto 10.5 % 4.0-11.0 NO [facility] Eos Auto 2.4 % 0.0-8.0 NO [facility] Baso Auto 0.7 % 0.0-3.0 NO [facility] Neut 2.3 1.8-7.7 NO [place] Absolute x10(3)/[facility] Lymph 1.2 1.0-4.8 NO [place] Absolute x10(3)/[facility] [place] 0.4 0.2-1.2 NO [place] Absolute x10(3)/[facility] Eos Absolute 0.1 0.0-0.9 NO [place] x10(3)/[facility] Baso 0.0 0.0-0.3 NO [place] Absolute x10(3)/[facility] ID Date Data Source [id number] 08/17/2019 08:19:00 AM EDT [facility] Name Value Range Interpretation Description Data Sup porting Code Source(s) Document(s ) WBC 3.9 4.5-11.0 LO [place] x10(3)/[facility] RBC 3.39 4.00-5.20 LO [place] x10(6)/[facility] Hgb 10.5 12.0-16.0 [facility] Hct 31.2 % 36.0-46.0 LO [facility] MCV 92 fL 80-100 NO [facility] MCH 31.0 pg 26.0-34.0 NO [facility] MCHC 33.8 31.0-37.0 NO [facility] gm/dL [facility] RDW 13.3 % 11.5-14.5 NO [facility] Platelet 222 150-350 NO [facility] x10(3)/[facility] MPV 7.8 fL 7.4-10.4 [facility] ID Date Data Source [id number] 08/16/2019 08:30:00 AM [facility] Name Value Range Interpretation Description Data Sup porting Code Source(s) Document(s ) Magnesium 2.1 mg/dL 1.6-2.5 NO [facility] ID Date Data Source [id number] 08/16/2019 08:30:00 AM [facility] Added by Discern Rule GLB_ADD_GFR_BMP Name Value Range Interpretation Code Description Data Migdalia rce(s) Supporting Document(s ) eGFR-AA >90 >=60 NO [facility] mL/min/1.[address] [place] [address] The CKD-EPI equation for non- Breann rican [...] Mild decrease* G3a 45-59 Mild to moderate pwftztjaS0t 30-44 Moderate to s evere decreaseG4 15-29 Severe decreaseG5 14 or less Kidney fa ilure eGFR-ELIZABETH >90 mL/min/1.73m2 >=60 NO [facility] The CKD-EPI equation for non- Bre[place] r[place] [...] Mild decrease* G3a 45-59 Mild to moderate acqwmrblF4m 30-44 Moderate to s evere decreaseG4 15-29 Severe decreaseG5 14 or less Kidney fa ariana ID Date Data Source [id number] 08/16/2019 08:30:00 AM EDT [facility] Name Value Range Interpretation Description Data Sup porting Code Source(s) Document(s ) Glucose Lvl 97 mg/dL 65-99 NO [facility] BUN 13.0 7.0-21.0 NO [place] mg/dL [facility] Creatinine 0.66 0.40-1.0 NO [place] mg/dL 0 [facility] BUN/Creat 19.7 7.0-29.0 NO [place] Ratio ratio [facility] Sodium Lvl 136 136-146 NO [place] mmol/L [facility] Potassium Lvl 3.8 3.5-5.1 NO [place] mmol/L [facility] Chloride 104 98-109 NO [place] mmol/L [facility] CO2 23 17-33 NO [place] mmol/L [facility] AGAP 9 5-15 NO [facility] Calcium Lvl 8.3 8.3-10.2 NO [place] mg/dL [facility] ID Date Data Source [id number] 08/15/2019 04:31:00 PM EDT [facility] Name Value Range Interpretation Code Description Data Supporting Source(s) Document(s ) Physician No [id number] QKJeL [id number] [id number] eXBlL [facility] [id number] 5cGUv Center Hx1rpX2OFA NlRm9 fbP0QBAm5J XRpY2 GwPZ8fc7Xp bmcvV 6frDN5anSP uY29k qM2qPa0TAH 5kb2J qCjIgMCBvY moKPD wvRmlsdGVy L0ZsY AHxYYOae7J lL0xl etc3dCRqWH 4+c3R yZWFtCnicK +QCAA IiDQmXWK7w c3RyZ WFtCmVuZG9 iagoz MJBpp3GwSh w8L0Z dfZNtkx9Kh GF0ZU SyT31qDE1D ZW5nd GggNjk+PnN 0cmVh iXf8aUKO5C rk0o/ INFAwNFAIS eNyCu EyVDAAQkMF I1MLP XNTBQtDPQs jhZBc In6BvXKQvZ h+Rad mUepMi8mNU yAXAL JvTc3PGD3g c3RyZ WFtCmVuZG9 iago0 JFQtk0WsGb w8L1B pN8PXu9HhP 1VzZU 5vbmUvTmFt ZXMgN SAwIFIvVHl wZS9D VKTbhY4vR0 91dGx pbmVzIDYgM CBSL1 VzJ1FyXJpl MCBSL 1ZpZXdlclB yZWZl kePaM4OyIB ggMCB UPn6ISD2tx 2JqCj cgMCBvYmoK PDwvS 6rbo7l1HUO gUl0v GUovFF1GMJ dlcy9 Pu8QvtAEkD 0lUWF RnHd7eYnde Pj4KZ F5dv0InMxF gMCBv YmoKPDwvQ2 91bnQ aVX4DcNOzq CAxMC AwIFIvTGFz dCAxM CAwIFI+Pgp lbmRv YmoKMTEgMC BvYmo YJq2AF5PDU XNlZC AxMiAwIFJd CmVuZ A5yxrqaHaX wIG9i wdp5XT2UhR x0ZXI vRmxhdGVEZ WNvZG StPAXwW5Gt IDI1O TYvTiAzPj5 zdHJl MN2YgXunxw dUU9k Wh8+9N71Qk hCKlN PppWZFXT79 SJEuK jEJEErAkAA iNkRU cERRkaYIMi jggKN DkbEiioUBU bHrBB vT6OCxDIwT SWStG d+8ee/Nm98 f935r a20W0Ieptx a6AJD 8gwXCTFgJg AyhWB Bh73FDdWrv YAcBD ZUSN0rW0PF zs0IW +PSFrRI11P xsmRP 5G186FjN1+ yrTP4 zBAP+flLlZ IjEAU JiM5/L42Vw ZF8k4 PVecJbdPyZ i2NE3 OMErOIlmCM laTc/ ReF9k3cAJH OfMyh AmSc9ZH0nW w5Nwn 7552Cz7OdE AZF+c I+LkyviZjg 3RJhk DGb+SxGXxO NgAok cxe2wJAQIm tY5Io GbMn78sE3Q jJX/D NQ8eMboBWZ 8XOzF ouEiSniBkm XFOGj ZMTi+HPz03 ni8XM NR94dQWqOo iZGVk e0SFKBh/8W RR5bR myIjvYODk4 MG0tb l4p7H3m/Ju S93aW XoR/7hlEH/ jD9ld +pB1QnKHiw dn6h2 6gSBHg1xGY u/2Hz WAvAIqyvnU OfXEe unxeUsTiLG crq9z bHUlWx5lsA +jv+p 5Ta6ZlqJ7L vt3v5 UG720X6vcX xQ143 abI3cjROaB 7icPk M5p+H+B8H/ nUeFh L2XX4LS0KK RMumT CBMlrVbyBO IBZlC yaM9g4i2F8 P+pNm 5lona+BHQl lgCpS TjSB4uJCcr ESAJe 9Yy2D74E0W [place]/nN z2EGuL09g1 L+fVe 0QN4KDhG/j mNHRD Q7UeLJ0Th7 WgI0I ABFQAPqQBv oAxPA BLbAEbgAD+ ADAkE oiARxYDHgg hSQAU QgFxSAtaAY lIKtY CeoBnWgETS DNnAY wHDn3HA8Nk 6By2A F1TAVBX2fp CnwCs xAEISFyBAV Uod0I EPIHLKFWJA b5AMF QxFQHJQIJU NCSAI VQOugUqgcq obqoW boW+godBq6 AA1Dt 2WAjMY4JOf HIzAJ psFasBFsBb NgTzg IjoQXwcnwM jgfLo P3dSGpT5iG 7oRPw 0axLBmBZ6F nEYAQ ETqiizARFs JGQpF 4JAkRIauQE qQCaU YgwX2kN2iO SJGny FsUBkVFMVB MlAvK IgTM0cPMqN ahNqO qUQdQnag+1 FXUKG yX3TXIFmat zdHO6 DH6IOoZkQi uRleg h3Dk2XFrMy Q4+hU Dy7FqiDQHG H9MHC YVswKzGbMb 0445h RnGjGGmsVi sOtYc 64oNxXKwYm wxtgp 2KClPkrI9x n2DI+ F3iET5X1h5 Togrx FXgWnAncFd wE7gZ vBLeEO+MD8 Xz8Mv xZfhGfA9+C D+Suzy LwD4xJbuXL QiphL mOH9VA5K5p LeEEk EvWITsRwoo C4hlh NJPA2Xwtte iVRSG YkNimBJCFt Ie0nn BKyKb1sa0s GZA9y PAhJ3qCaIi 8h3ye /UaAqWCoEK PAUVi vUKHQqXFF4 pohXN OJ6ZHetpI8 YoXhE cUjxqRJeyU iJrcR PBuLRi6BF2 YbStD IH4UI4CRbH ebNyi /TS9MjRZEG I4kPh UYoo+yhnKG NUhKp ULDM26CPGP upZ6j gNQzOmBdBS aaW0b 2iDtCkVioq dSrRK nkqNynEVKR 2hG9E G2Ev0Fpkz+ nX6O1 YbWR6Mwkib 1TbVK 1lv8txcfgl x1UrU 6bDJ4Q4wB7 R91NP Lh0b2be/TQ GmYaY Zk8Jca8Bfz 8XQOb Q6NPP4pwyx H59zW pEZZATO3Z5 ju0xz UmNuR0gADi tKq0j ke7OFxor8j naq9Q /zX9mKCRav NR6Cz Q+ekzmOGCs OTkc6 eKOAskmN2h f11Jb b6oaQ1T6uA elF6h Gwxlxu1Yri s/ST9 Hfq9+lMGOg YhBgU EsDn7KrFDN MMUw1 2G/YavjYyN Yow2G HUZPTJWMw4 wzjdu Fv3bHdFuD2 lm0mB yzRRjyjJNM 91tet cYUyI2ZiMw MRsyh 23feSWcm90 HLdAW ThZCiwaLG0 wS05O Vw2wcfdsEH YMtCy 79UJ8KDUiN W22z6 ar2uU3hdJ6 daH3H usMYiKMd17 Pzq62 ULfc9ylnuX PJc37 hj49rKhX6d bse32 7W3317mV0M /wb7X /kCMi8JOpg 1h0tH UXqOu4hKBy 8YKY2 1irQyVG9n4 rXY65 fYR8zVD9In Y+RcX wjqhZ7uSz4 nG8/j iNdjAgch4g lzrXa XiZQrJw67o Unddd 457g/sDD30 PnkeT j0GmzBig39 HPZ17 WXiKvDq/Xb Gf2Sv Ctv9Nzw7mI e9CH4 hPlU+1z31f PN9m3 8SjFp14gxi 8pf7R /kP82/xsBW gHcgO aAqUDHwJWB fUGko LVB1BELka0 CRcE9 YBQOTKy3tF vzDec R31pHmmBM8 O2h98 AXy4xSuP+O CQ8Lr wl/GGETURD Rv4C6 YMmClgWvIr 0iyyL mAErCUrS2g xWjE6 Kbo1/HeMeU x0hjr WKCbh6Q26c TxHXH Y+Tf59vety f6LNy 3sEvSPlM41 foi40 H7qp2w1yah vvj4E sUlnCVHEtG JMYkt tn89eJjVbf TSgKW 8D2k4iO0t5 hOeB2 3Qf3Wuqi/n TyS5J lJoRTu9Ct8 ePJni gjEH2wFGKx QLnqf 2f4jwgz8AZ duf9i d2Uv88B3cX mHFUS BGmCfsytTP zMoez tMLTy4YQnC ftXDY yGcW1VGKNv 7K7xT ULe7INjGDd XjKa4 5ZTk/MmNzr 3SJ5y txIuMOeG6y 3LJ/J 9879egVrBX dFboF hhavY3yeyV +lXQq qWrelfrry5 aPb7G a14ExPS5qE t/KLQ ySM14tJ8wI U+RVt TxdnL3tkmo ixWKR uT4ZgsgzSj I2ijY KPem2shkCE 9LeCU EK26AT6rzo +Zuvv kEgWhUZ39g krRls KvohK2UtJo h1uvb 3LcdKFcuzy 8f2x6 onIOHC5sQp pc7l+ g9SYQLUgiF sEuyS 1oZXNldZVC 1tep9 wIo7JH5MEB utZu2 c4mr7encp0 PHY01 fcLHqw242o YO/Ne r/6zgajhop 9mH05 +q49Iyf1h7 36url Pl3v66uE+4 X7pgY wDhw5Kxs4q mi1lr XCrpHXyYML By994 h2Ieircju6 e3lx4 ChySHHn+b+ O31w0 GHe4+wjrR9 Z/hdb Rl5v0YF4km eOdWV 0iXtjusePh p4tLf Dvnhck4bj2 x/TPV TrNQG09OpW iaITn 07mn5w+lXX q6enk 04J2Q4zniB k9c60 vvG/wbNDZ8 +d8z5 3p9+w/ed71 /LELz rpFYmGo8Hf kcKlz qO2f5hv7Tm oGHQY 6ecjOzl87P e4Znj y34is0muHP va+eu jFh2cRZ/JH h61HX b42RsJZ9zt v56Fb 5wlt6w55N0 FlzF3 876I2XvXz4 mvcbf uO8wM5wHA1 +6j06 3WAJxhrx2H EnP2X /2Y824QX3R cWEzk AlR0kZtfO6 Jy8/X vh4/EnWk5m nxT8r /1f5sTHEi6 94/DI wFTs1/lz0/ NOvm1 +ov9j/0u5l 73TY9 P3MEw9gOyq 8UX9z 4C3rbf+7mH cTM7n csr0lJ4s+6 PkY9P Glw3jNm24A 94Tz+ wplbmRzdHJ lYW0K NU4th6ReTc EzIDA iz7BuWse6C 0NvbG 1dU4IqO3Rf RGV2a DRsR3LbpG9 IZWln aHQgMjkvU3 VidHl kEY2TjAAqN S9GaW y2MVBqOdqt dGVEZ WNvZGUvVHl wZS9Y Y8SiCDQ5Z6 dpZHR sRIS8Lx4FJ W5ndG ggMjgvQml0 c1Blc kNvbXBvbmV udCA4 Os4wzEXnFR 0KeJz twTEBAAAAw qD+qW gXC0JLKSJA AB4G+ 2OKjwplbmR zdHJl NN4XQV5yz0 JqCjE 2KUHnx7ZtE jw8L0 BxqC3hU8Lu Y2VbL 9sQD2Yup1G kIDEy EORxKi3kFI VpZ2h 1UEY2W8G0H nR5cG UaXA5vH2Tx Rmlsd UHbJ1EsOXX lRGVj y0GrM9K3sW UvWE9 chjVvtA0PX WNvZG VQYXJtczw8 L0Nvb HVtbnMgMTg yL0Nv zM2vvaCzJ5 ByZWR qT1BynyOvT S9CaX CrELUiU30b cG9uZ W50IDg+Pi9 XaWR0 aCAxODIvU0 1hc2s gMTMgMCBSL 0JpdH FLWGHOn70k b25lb hKwKI2VpwG lcnBv wQX0BXS3hm VlL0x rfkc4zEK9Z DQ1Pj 9ssQTaTL2I eNrtm wlUVEfWx2/ iJHMm 0bhGWRqatW VzwSW OE+PESEKMi iua0T gaYjQRjQIa AiKgQ NN00/vCqoC ANoLs r6FQfnfFLv FlURF QUUFAQJRFY Kq6ka NmggbSP71Z d97R4 +t671Xd+tW 9/3vr GR2cuFADJ4 r5x2e zN6e4VVUGc eTElf KHr65/12/X xaRXh QKAlAfT8Ol 4qOf/ bqXe2iZ7WG M/NQv 34Ef6ZpAB2 zc9NW mZV0/Ps75G kRfLF Ly2WPeKhMm Eoj8X oM1OUleTuW z+1fe nI5vYUplfZ ChRQI lHJJandk4l uL3+1 1lZt0RwWbO pJZWN Y96/hqbHqw +Gw6S yGT93tzkGZ ZbxM0 394EMHUHTZ 6hCDy R5xZqcdlXE Lc0Cd Dcw8qWwP9B K8rCv 3BjZqbHmam le12v XmzHZSsy2m 7uRl3 hGppTdrGl5 1/+qb Wr/IG5LsTH D0AkN P7RFJ8aPd3 ARQp4 XmNLN8DAJ9 5ojYe afADFeYQia fzJT4 aYtDLEwmgx I5ID7 /zUZE/JeZU xzo8E CYk0DaBRdg XS6eJ bAi2l88m0K Xja2P UNiSi9vS3N LudVk /Cq8hT4S9t hyRlQ eigcAEJWpq boXUB mT/DCAwYDr N1f/3 NwWIoWbsRY R2shC 0OehkBOYNc 7/2xg WS8KUr6KhY 9tfcd h5Ts6NESTj RL/YJ dzqnyrrXVp COPN/ GOjJjv8r70 SOLOMON+6 OZ13wO0yNO EaCgk 9MX1tbny1w p2ujn WOmIuPrlix Gh+uc I2bjEqBRSI QBl+u vv/bJdUaDH k4rIC ijDnXs25p8 h615u GTNDe6cOQq dr60G QUQH5JgYZ6 giIFJ orBCakc0Z+ zGkJM QGo7P54WHL 5/X+F gM30Iijv6b 4YUGM oR0TWG3sR2 UKECH sMETHcGgT6 yKVxP vUgJcy93Z5 BRXCk l92Csv+yfO ymJoC KO+muFlm5R 4vInz dqjPaEgQYV JlrDF Hsl4xO+0cM 90FqQ jrInUHKBqW TQpxt iM1wsfRScJ SPzCJ jhjqXoLIHh 1rD97 lk/kdPRud0 hNS6z yrfDOy49KZ 7vNOg ygOhGWHUiL vOa/N J37g9PjZvg SwkUl GQT1E973z8 UiCGX 8+5iSZcTlF gwbhF 0EPV55Vlvs m+8L9 YUmxk721nM ZtPDU TCLDePtYJL 9B0s8 EjsT6nL9k+ 0/dlF gwIaPbGDCY TBgfr U33D+uoOtZ W298I cfCNNGIZgt I64QW 9KylAPk7qm Wn3Bh PKFMfP8AS8 w+Xsa 2QWjIp9Cc8 xxCY6 HVn7aj2pSE 2KTL0 wYZyu4a4+K zrvwn LreVit0gz7 EvF1f IgEphQ/JV5 nKl1M r4+W0Z2Fzn +UNKq Awno/OKnmN OJN4Y hljTBZ6A1J mdh4j LRUAW8v73R JM40K yuyQG1VEU6 5OGzN 8gGc2lB5Ng BywRk LeX3hdrJba 1Wb2k SDtiuoc+Bj mkTjl lclYk7ALx7 TgBID qU3djdiCA2 p4pMM LL8xbtrAP1 dwNJM BEH2bT8Smu GLRor 98BBRcgOsd klImv qWZiS8U3kJ Q6ifx u/RWcWP3J9 XBIA1 0ezPEgrAja 8GuvG ZEu8Yu+Joy IzNsW UEiK1rv3Eh eJJr6 uqw00L2Arr ZiMEp juBDMHhedn 3U9BA +XegtlbA+Q PNN09 3aDCABLHyT dvhEC ttZ5lnyT65 qBGO8 I9GMAjIiM6 aqt9L NsC3WluKOy 538a/ hERgsU5cv7 28ZSH SMn9L1sylY MHYvA t/CIDJzmg+ 8MIdY kx60O+g6Ya iGP6V lZ1Wr4MuTq UJFN1 PW1YfnN9UQ Wqcj7 5NACVJP00Q 4xOVL 8nNZBdmcOG glspo pTI3xxceRK euDDN TbG6mCqXhK GaCCk r/8Col2Bp3 lJJ/A zSYoOB6+0G /DgA1 EytdsOo4Hg 7fNAD QCXGh6Yiox empGB Eb/uUREEE5 s4YL5 eQlyTCMLI5 8iTo7 +NjCOYI399 tfnEK TuE4+l+Wla l+UiC r+Ekvg11Ai FXTZu IIgwyV/rosales E3zIE rqDYW0sJnZ YOu1A lybzba04yZ kPWCE 3tjZsFZXeR 60LO8 aJ4vaFDf+w qod7E iIwkV+d4TD E6MXO 9UNPkVP+5p vfU3R jy7j/5UkcF RCqSb 2H8stIWNKe uDczk 1IMLWf0AiE wNH9r O+vbk6eQ/h 8hAIb bLbMErQUSN VVxxf +ivlXfrUAx Ck2HB SpMrasznYN q02B5 nC+VEZLtDC nbj+o J/1oC1YZo8 8Cwer AxECstrxDJ cApFx i/hl0LF3VS l9I2E 3oOH57x33m XMHyy Ad/janaImW 8Zk3y yrrRo+IHt/ EMsrr yJf3nKJByb U6/aL Ckj7py52q8 FH5xR egJYgG4+h9 SXq/C f8b0yS7EC3 XWa3d TU7WQ63hrt oVIkJ grwKV2soOM Yf3X/ tzciGCchlc xGOFn i+PB3EeV2K IGPD1 YhS7IfrYUA 1NiSx Czq91pzbTQ pGrt+ 4DgYZMtHJ/ tIzaJ wkLVMW1zD8 UQHEY IiJkYU1UJG 65ENH mgNKKU95a2 VICzc s5gCdlCig5 JTWS4 r+tbZNtpFg HjVvo N4LiZ6qr9q oRkZX 5eyLU0VwoB yILuW IvwhFekduL pIq8C P+zePd8Cy7 4mjoM Io+s72MiRg SIo88 eEDS7SUGj+ epnXZ 2OvulAYmIF o0Ttu /5JZmxynv4 qMzQ2 QP6nou9OWQ 5Aruq aCnFSgDoxy QnAEc KLfSuGo6vu vh3Ka FI4gc3D6El YJ6fk Vmw+EgmGXO yl/tq VyZa3d8eOz LUTZM nVtLu6a+K9 LV2e6 N8oeoME6QF Fkc22 sOy7JMIMJU 8y9bt 23Q9CGV/Gp kYnOA 715EF5fFwQ I1+Cp iiO600ct77 3IgrG cdnuJaPF0m 2jrdg DnI168jLTb Alamg judc80axkQ vxAit hVhi4JGgZh D0Uh4 Im+3/mCMnM OcYey VCh50g10Cv V8AkY 3ud2zHYetY dWdUd eACeokHP7U IMSgk CjgUpp9SdD AiOaN FRGejyIsQm QWldf J3+tqtuxOX C+D9w 99Ynampa+r NnL97 cblq+7q8yI mYIiR EYLbnJCO+v HURZQ pe+rm0any1 L+VFb QFkEIezW82 UM+qj v5TzOOz9Qs U71wu hz5nQ0w4LO IdD2o xV0U7CHKEa KLyqt MpuZhXQv0r CXJhG AXVKbeOjwX JVpEX mjAKRh4+ei E1pzX 15RJLlnXKC qBapS Z509uGd3+S ccizn kYqczxwkUB xFiBD pFvMeXKs5w +0dvb OxFtHhmTkl 97zQ0 sHvlEpCV1K Y2J3M JWa2tf5ktg 5vk13 u1LAYrNDHs 8DAQ8 GFhwtn1pa4 YRoZI cWRxcHM24k FiL5H YcuPSFfXM5 z66/C 2OyS+JCLfO 56X09 CrLMPxatbm Oh6/O SXbZ0CPjN9 NzQkd WPx5fAUYCI 7i4GG kvEHf8OMsJ JH+PP Pi4HFa5OWr PI8mT z+Sk1ibrmm lyF9b hOFVrcHyjS ocwD0 Z9dPo5+iX0 iJa66 Zl0ZP9UXME hZZ4e eQtbzOnRBw U1Vh5 JZJVCjAUlR wI7tI QicaIaEmhB xRoSM CsXiiV7SeF sFiMS OmwSe/3R5P kXo0d oErBjoEkOV Xup3I Vb6QbimITv y2S3K S96ypRALcm kPFnl ZQtmPoWcbX G3mNQ SgMJHF3R7z iyHb0 zR+pkh4bg0 2wJlj 5jBYacquR5 AQkzD g1dHmYu5aD xC8gT T2PIEO4LoF 0+hYQ Yxrmf9vnC8 7yzl3 DpO6Bn0pqu tl6mX Gcp5gv9Nmy Z1EEB 8WwhDefD9x YYQqR Q0w1SxhpUM oYgZf R4pXRHDGAm rPe6B 83XB6bSfxp ZiOjx q1CKcd6bG8 eU4TS McF9gE5k6L m4POM fS4ftt50tI ngcoU BbfGtu19Fw t/LGf Dn+Zo8ZmAI O+CJS d1CdF7b7HE lStyS 2llLhFBM5D Ip/7X VKpvpXLc2Y 9yksD OoV9tDnFvx uax6S c/p0sdRN/L FNUXa UjstoyUvxh 4uoDw 1x71Gio8iz GKyX/ hsRPX+2Nxv k3Wli r1E04iIZ4I CtrHh 53wAMioz9/ aRftQ eTguiFKbvG eUy8K tKAstCLjsk vwR6Z aHEGYJKnwi ejhRG Ztg+TXkN/a xWC3R GLvYyQNqDL 107Ba CIrF1xzTdF wAJCH F/Evp2ZoOk Z1yMh M+smn6Aik/ LXZ3d dU5d1klAMS brBOA yIAZlCvlD6 Tbk0j BypHItGJdK K+sK6 wv0S0vTnxz jVK8m PQyvFmIFow 23YJ5 pSw63Dk5x0 Q5goy bCBS5RfH+c 4htff J402y3s8RL 5YA6+ YBkNM07yAO wMY0c KLntgnemkD ZYMKg N2NmySGEm0 FlrE9 E53C0fRqp6 yVpuH vhum0PUpGx uy80j rXApuv+73M LrDyz ZKRM/98S7L agN8j ckqplTQmD8 1YHvO MBMwR/akHh 4AxMJ vkxIjdH4K4 rhIye KtkXW42AI0 puOmx m0cxPQy4Bw FAXH/ Yp87LJTIls q9AXb zuhsEFbceX iIk05 g72z0fQOfX bzQZ5 gzkuKzb/Y9 ra0NK VYn/HGXGl1 1lf/O TioRmD5QPV Gf0EC N5tGpIHQpO XFR4v yigAmrJO4g DT5Xb Q46FnAslKN wLKBr r/b6YVT4HK fISUl vSlJY1ST13 WhvSE nL78TFo11I A/6/d wkOADu7nKF TL/Oz e+/oXJjugs erzcM LNLJDg0svn 97Q/L m4EnMKr0j+ kQVTX UZSlK5OEXF OuIJz Kr4iaYLug9 DGx6Z Wp8BEJ/joq PH+8M 8QtGPOjm5Q RApMd Z1OEx1a1nS FvmYj 8jZC8HZi1c 1PHku M78IRwn+oz ppq5G U9OO02CFH5 /SigJ WqFc2zJLoz vRP9c azlI+mUX3t 9kfX4 PJbOvzS+0r G1HUt 0DJTcpGptb dlHOT Xp9YGjYJmJ avionics safety inspector+l D3gowU51e/ Hs3z+ InTW5fjDPw fx4fP 8mbWlV/XuL eWj8H vysixP1VL4 v2dQ6 +WfX/lfvo2 ZtsU0 JTiiVeO/SX UJYyA TmY4jRH4jv 9r7Is a+xTNzlnNF 37wH3 1M9h1iuMmo Gddar pZ9oZR7sFe Q1+Jm dwN3FR3/h0 VO6Ee fDMUJx30Y1 rhO97 a2baScGKRg LX3jt FjoBVTFjpj 7/M1a IiV+8R0Stp a2pbY W6dCm6fVF+ WvOuw 3erHKvhLo8 r/e8A CPlpUlKBLE jE6p7 L8s63J9p/1 xB8P/ D2YBIpgsyu gnJZe Q+zwzk2lSn bOJ1z M31zel/vCq u7VQ8 /bY+yO2/ce lVU2N A8uX8YOATb ouNt5 XXzTB/UWkV d13Kh 6CEpUnJXos Y6dyG xrf/oWkbeH 5FHf/ Rnd08XKmts B4Dp+ sohak3jeKP ms0D/ HGpOzvxX1T eTtgQ 4D26WPtmE6 CALKb mgwiQLKZEt O8pvS /5dOkK5O3w A552o tOitrmt+sn v8Plv YA7UqnpgHm dHJlY X5CGZ3tf2B qCjE1 QRLpq5WuUf w8L0d lb0LmEPhzK y9Ucm Sup7XwryBg Y3kvS XD6tiOnC6v gZmFs c7VaV3JbBO EgMCB GNb7hH99po GVudH NbMiAwIFIg MTYgM CBSIDMgMCB SXS9U yVDiC5RvY5 UvUmV es0DvT3XzO DwvQ2 2it8HNjKFq ZTw8L 2SmJqE6rTK SR0Ig MTEgMCBSPj 4vUHJ dK6DyvGZmP 1BERi VxBDY9gVKm SW1hZ 5RMHA9BfGJ nZUMg X9usZDwxRS 0vRm9 bdZp9C4ccZ m8gMT cyNIXRS6vv bHYgM YqdSPIMR3d pMCAx ALPxUy6XAA 9iIDE 6PCCsBc1+L 1hPYm bwO9G3VN0m bTM1M fG8BLY8NDF gUi90 XyY3AcTuIV IwIDA gUj4+Pj4vU GFyZW 50IDkgMCBS L01lZ HzoQv30IdU gMCA2 MTIgNzkyXT 4+CmV pIR4ujex8Y DAgb2 ArTcm7U8jk ZHNbM TUgMCBSXS9 UeXBl D0TbE5UvH7 NvdW5 0IDEvUGFyZ W50ID yxCLKUOq9X ZW5kb 2JqCjIwIDA gb2Jq Uki8V0dwt4 VwPDw oBj6BozSnr 3Bhcm EaZ7mdH1Vc L0lDQ 2Gdk2ZrZUD yIDAg Ul0+Pi9TdW J0eXB iT2Yrks1fD mlsdG UiP2LkXWQh RGVjb 9XhF3B4bMQ vWE9i esYgvC9HPV RyaXh bMSAwIDAgM SAwID MvE2Swju5P eXBlI JVvZjZdn8W yY2Vz PDwvUHJvY1 NldFs wKFFVS7Tpz HQvSW 3lJ1DFD0yj YWdlQ s2FqZZwDZm dL1hP RdcoG7N8JH 9pbTM 7TwY8FNN4G DAgUj 4+Uv3bLbYt eFswI DAgMTgyIDI 5XS9M JV6gqOucCO k+PnN 5xjWbkOg5m NPPzD R8PVa5HFFK BwARc gLfCmVuZHN 0cmVh bQplbmRvYm oKMTY gMCBvYmoKP DwvRm fapYYaD8Go YXRlR KXqb4WnU7c lbmd0 tKFrNXs0Ks 5zdHJ kBN9GwAvUC Vtv2z YUfu+vILAX G6gVU ndlT/GlrYf ayWyn xbYMgyIztg ZdXF2 Stb9+R5RIy o4tV1 aHNXAtUiTP Od+50 zr4RpMHQGG /1UG6 lnlWBx1P1E 3HtpE XTlNmcgP0w MYx+v VNsZqtJUjD JrIMX EDHlzkOZ5J whbCC xSfZoKsPdB gjeLt 6EvswGjiKB idigl cwX76H8rls /p9o9 csbhCarNwd ENEex qF4FYbZdia BPUyr R6UFCU3Mjr ATPiO ADGpZCbHb+ jefFe ET25NX4aJW rEsrE 3BaItg8nob 2SQKV MfBcUUcn6G OKCzG iUuQEffaBu kG356 L0ag5SZoiO x+3Q2 myxmN/P5W0 7w5m4 x/qbTa0LjO c3ois F4FwlEq3Uf 0DM4Y +tyTZoWFtJ kcUQD 9z3Aybq5xT Pecx+ nMe02AibkD jyMb4 gYZwu4T32M xSB1e 55X6AxpEO3 Wi3Fn RBeN9EorRs pzk7R Bl2qoWG3jL zcp6B j0oItTRAl/ 8SeiG qo+aFRaJ/I fb0dg MxNrXZ1s88 2xxiw VyGpvY3lGR C79Z/ BBZRD6hGnA xh3C6 kj1AUNAFcf pm4U6 b8VZsyw+Ur GKT5s X1DAVLUlJ7 ejDze V5nWammTJB U71YV br3hTbFUlD TLeiX rKEdPQ9mbd 4pFmT tuwCt0Ccav GZj8u eX9A3Pnjp8 P8qkV B5xpX8y/GUANAKITO eFq1U XxfKYCJaaS Lcx51 rzeGDyXjVp FSTKJ Y1rgeUbz7B XVPRT MIVQo94rJO Zx14e UllmeDFkZz 9Ka+M emj6TrRycs 27m17 o80KKJpDCG YPA6j waca59vpOh k6e6S CCLeKyP5Mc OED6p bgKES7njHc rSW+Q 4YyNlXs9v5 pY9M3 TTImF0vs/A 4F+ck ZyhEN3pbGC VCZRQ 5Wl12sHAs4 VbUS5 WQUM/fFTCK YL8Lq UcWTPR6r5e bL5mm pwjK9Gpl4Y qCx3T nco+uz7vi6 aFn68 XCT9IxvYsj YKVKo qsc1IgOmIl rQqMy frWQ/8QOKF ht27H 4Dsz+SuRuH 6utfI Coyzea0HxF aACU4 Jd26mnC/jX 1Pd8V Mo/pGG7R84 VkPb4 rNlRKUMjv8 z3QFQ N7iHEMsG8U QmSAf oEiURUHBXx UfgV8 dfl/gLZw9A v6jCK bXUM3Rq/hy 4D1GI 2goykROvf6 gbCtL 2hZMPidPBq aVTEE z9FbXEy8mE vwHNQ wAQnoH2h6O J+GTh GHJaO0kloa MezIc R22cJ+ZI8x +N6xo UOJZsArCQ5 pwCJ+ 7jNPX+j8Ks NBAcG AgTbwSSzlk lU0d4 3TlCikEs0K jk0uL 1zH0iBNyjM ryZtZ YIlNbSFb69 V5Ksz uKIw6WxBRg 3qfpa SXqOLh5tTC 7uVpN d7rffMqWYi 281kQ mpO9cG1RZ9 cVkeQ /tLIGcKTS+ XJXSc kWcj9mE6Xe DDVN/ LjPUQ+9TH9 mQznm z5aEAIaRNF hwMaC 725hLw5y37 MRM5c l6Mvq+/wd2 pL9zI Jzx3MHcp8n Ntv3f HzDOO/3YlN EfNxa qZyxmgbNLN Z6bv5 3rd2BM0H2v Q4lQV nsALPNZiaC 2h1qt TRMYKc8LDD kPvoI R+6Iuekmml USCzW +H6l7KY8gi BDcne 1CCB5SVLPF C91CM lVmNxesfC5 kGZL2 v5MFHGPoCi ZBAHo jR/hgmhV3z OX3wZ LPue9DfLne Y9Wdt HA2ZxCxTXo TmZ+p sIAobnSkbq 9S47k o1e2vPHlO1 WZTSj JuHq1WdAg8 qpyEe +eILKulhcW VdG01 M3DblO9FD3 urxdc 4OcleFKcXK l1ANr Tc3fBKXq8F 6j/wi NcfkLJuqyP zKdCY eHFBUM5WEA t7IXk E6KyqGyRLu 5UxXS 18Z9H2OnCl 9ixsC ww9L4ZM+52 Olt3W fyiYv81DMx WFmhW [id number] N6kce rekvErwXy2 /FupD R/9qkIYbNl rbRER SCpulgiBgt dZTUL lPoobPQwI8 20kv8 G3q4MHk/ym KJXc3 RGQq6LCuOX ZbL0z xcjOQI9yZc ppKdr ylUh76epyt 5uCcR XKbl+f/ktf 48TV0 c65T6uDEQ8 bhd/j rUCk+p6IoR N/Qjp yHEX1fB4ie PLGAv oSsWsC6/ap 0jAKK whzipBQSAl E1W3p /XU0g6EtD9 9QI4t YIAEwWbTlv 5WwYX 3cGQDhxMWq eDBfX iMASkGLjpd Ruiln NhRPtc+oUI Zn4gr UzI3xZTPU7 Fz0q1 a5Fv5T61Hi PUhh6 1D5iSNOSBJ 1urC+ D2BXIRO6JR /gyGl b9Kjc9+uHP ldZAX xI/fHlm0v3 TCb4x xzFHEZ3vOM jU7Ta ST+t/y5AKj 1A3rQ f5ip2n8hMi 1N9hH hUEQlAnoZZ Dv5LJ 8BIPormz38 1kuLw j0bImDKnup 61Ygq odDc49xQS4 fG4Sc BNTLkjgqUm GwVxT LxT8ZxAPtu ENTu+ +I8eq1p3F/ Rk6we pW33By58Ve VM6/L tnk51r5zWc ONumn +J8uXJP2UZ f043W nmYXXajpMz HR+/r ybz5f0TxjN vJ/8C 6SG+cgplbm RzdHJ gAH7MPG5rf 2JqCj B5WIEko3Yo Cjw8L 05hbWUvSGV PYi9T kCI2zHRlX7 R5cGU mO7K2yKKfA m9udC 7HDMZdQr9p dC9IZ Xx7QSXpQ8Y tT2Js vOH9JZ9Ofp NvZGl kOl1LjF5Bm nNpRW 2wg5Hpjax+ Pgplb mRvYmoKMTc gMCBv YmoKPDwvTm FtZS9 CYKVnC8M4Z nR5cG UvVHlwZTEv VHlwZ Z6Zg901U3T hc2VG t971D0jdtN ZldGl lOH6Tv0ytK 0VuY2 2wlB7uA9ot bkFuc 2lFbmNvZGl uZz4+ MjQvXS3str oxOCA rPK2xjht5R C9OYW 1fB4azhYRj U3Vid JcyBV9ZvZE lMS9U eYMvZ8Eldd QvQmF zZUZvbnQvS GVsdm X6kLFsQ7Nq Y29ka X1pK5cjyiK uc2lF bmNvZGluZz 4+CmV qTK0gjqn0V DAgb2 TbDlt3Kt8P ZW5kb 2JqCjUgMCB vYmoK PDwvRGVzdH MgMjE qVDYSRf4TY W5kb2 JqCjIyIDAg b2JqC ii8T4IzSVD gMCBS A3jXNuBvJn A1OTg gbnVsbF0+P gplbm RvYmoKMjMg MCBvY moKPDwvRFs xNSAw IFIvWFlaID M2IDU 5NSBudWxsX T4+Cm DkDF2jqyta NCAwI L1ygbp6ZU1 EWzE1 BBDcZf3UII ogMzY lUtQ6HK39v GxdPj 8DLV8nu5Jk CjIxI OFof3DjFgk 8L05h bWVzWyhfYT NlNGU 1MTctYWJkN C00ZT BmLWJiZGQt NDdhN DRhZDhlMWF hKSAy MiAwIFIoXz E0OTN rUeV1OIIgN GUtND NvKN3jQxNz LTNkO WZmNjgwZjF lYykg MjMgMCBSKE 1LTUc kBCe5g6rcn WFuIE ZfipT5mYOt IDI0I DAgUl0+Pgp lbmRv YmoKMTAgMC BvYmo KPDwvRGVzd ChNS0 1HLVBoeXNp Y2lhb nXNr16pwPd 0KS9Q YXJlbnQgNi AwIFI fUHr8jYP7H mVmZj AwNTAwMDY4 MDA3O TAwNzMwMDY 5MDA2 MzAwNjkwMD YxMDA 2ZTAwMjAwM DQzMD G4YkFbEsXc MDczM EJ8QQDtJmV wMDc0 Pj4+CmVuZG 9iago fEQDaRN7ds go8PC 0Ek3VOQDMk KEQ6M iAvECZ0FZS xOTM5 NTAtMDQnMD AnKS9 DcmVhdGlvb kRhdG UoRDoyMDIw MDQxM gC4Djh0SMd tNCcw TVjdT1Npl0 R1Y2V yKEliZXggU ERGIE TyYEP4i0Ay NC45L jAuMTUvODQ zOCBb QvQGRH9UL6 I7IG1 vZGlmaWVkI HVzaW 9fUTwFNEf6 IDIuM Q06VQN9USU UM1hU KT4+CmVuZG 9iagp 4cmVmCjAgM jYKMD AwMDAwMDAw MCA2N TUzNSBmIAo wMDAw RADyDTN2EQ AwMDA aJC9uHyVeJ DAwMD AxMDMgMDAw MDAgb iAKMDAwMDA wMDE3 OSAwMDAw BuIAo wMDAwMDAwM zE0ID FzPOKwXO9r CjAwM XFoQZF3YGQ gMDAw MDAgbiAKMD AwMDA fOTI0OMNhF DAw BuIAowMDAw MDAwN KK0AQZeDKT wIG4g CjAwMDAwMT A2ODI gMDAwMDAgb iAKMD AwMDAwODA3 MiAwM DAwBuIAo wMDAw ASOwTPY9TP AwMDA lEO3nFhYtW DAwMD N7MRObNPSy MDAgb iAKMDAwMDA wMDU3 OCAwMDAw BuIAo wMDAwMDAzM jQ3ID BhJIBxIE1t CjAwM HNdRKQ7EdF gMDAw MDAgbiAKMD AwMDA wNzczOCAwM DAw BuIAowMDAw MDA4N YI9KOUwCEF wIG4g CjAwMDAwMT A0Nzk gMDAwMDAgb iAKMD AwMDAxMDU4 MyAwM DAwBuIAo wMDAw MDEwMzcyID AwMDA zMM7sXrWjY DAwMD gxMzcgMDAw MDAgb iAKMDAwMDA xMDg3 NiAwMDAw BuIAo wMDAwMDEwN zM1ID KbQUPhDT7r CjAwM DKwUGU7DME gMDAw MDAgbiAKMD AwMDA xMDgyOSAwM DAw BuIAowMDAw MDExM TcxIDAwMDA wIG4g CnRyYWlsZX IKPDw eUH3wyjYvY SAwIF IvSUQgWzxh ZmYzZ DutFQI3BDj xNjll SePgITW6UO NjZjI 6RBdyNq95R jEyMz hiYTRlZTE2 NzljO WEwZmUwZmE 1Yzk3 ZTcwMWE+XS 9Sb29 0IDQgMCBSL 1Npem UgMjY+Pgpz dGFyd HhyZWYKMTE zNTEK YVMAK4NB ID Date Data Source [id number] 08/13/2019 07:32:00 AM EDT [facility] Name Value Range Interpretation Code Description Data Supporting Source(s) Document(s ) [place] CVVZIy0tIz QKJeL [facility] - mb5ZCTYDrC [facility] [place] [facility] 5c[facility]v Center Oq9hqX3SKO NlRm9 nlG2AASg6C XRpY2 FbIT4mf2Rx bmcvV 3mwTY0jgWM uY29k tO7uAr8YBN 5kb2J qCjIgMCBvY moKPD wvRmlsdGVy L0ZsY CEaOBKpi0E lL0xl cqx2cTCtGK 4+c3R yZWFtCnicK +QCAA ArCOyVZB6k c3RyZ WFtCmVuZG9 iagoz JGWme5RlRx w8L0Z icZOgvw3Qj GF0ZU OpF64iDO8L ZW5nd GggNjk+PnN 0cmVh rBo9kOSE1R rk0o/ INFAwNFAIS eNyCu EyVDAAQkMF I1MLP XNTBQtDPQs jhZBc Zl7KfDYOuG h+Rad OJsvDz3tMJ yAXAL J7Qu6CUI9h c3RyZ WFtCmVuZG9 iago0 MCCyo3YxVd w8L0Z ezFPtzs6Ma GF0ZU XeV79zMO9S ZW5nd GggMTA+PnN 0cmVh dPj1cBvyDd AA7gB 7KxGxVUQ8m mVhbQ plbmRvYmoK NSAwI F6ixcc3XF2 GaWx0 ZXIvRmxhdG VEZWN vZGUvTGVuZ 3RoID kbTb3fzVDd YW0Ke BzGPDJk7PE PyDRU MDRQCEnjcg rhMlQ wAEJDBSNTC z1zUw XAZj3OY6JO XC6Ng BT8KFHubur 0BSPN nBzl7mPvFC 4AtIM C8CbsfnChi HJlYW 6TOY5wo8Qf CjYgM CBvYmoKPDw vUGFn KA3uDJZlNJ NlTm9 bVY1VSR0kd yA3ID ZiIa6SwGQh L0Nhd IJaz3xaE3R 0bGlu ZXMgOCAwIF IvUGF nZXMgOSAwI FIvVm wst4HzHDMc ZmVyZ R8uMPEuAZY gMCBS Td7UXD7gc0 JqCjk gMCBvYmoKP DwvS2 wao3xbESQg IFJdL 3X9lWBbGLY nZXMv F954isVdVi 9JVFh TBSGfPA63G T4+Cm CpEA5omde9 IDAgb 7ZcJrc7V9O vdW50 IDEvRmlyc3 QgMTI bNXXRZ0img 3QgMT TnNQCCGr4O ZW5kb 2JqCjEzIDA gb2Jq ClsvSUNDQm FzZWQ gMTQgMCBSX Qplbm RvYmoKMTQg MCBvY moKPDwvRml sdGVy B0AhHRFhDR Vjb2R gW7dcnii0j CAyNT d5L76fBe5+ c3RyZ WFtCnicnZZ 3VFPZ ZzhRaHp0HV IQipT Gp7iEAzvFj UiRLi oxCRBKwJAA IjZEV HBEUZGmCDI o4ICj R4FyNtfPZH Gx6wQ ZRNRxcBQbl klkrR nfvHnvzZvf H/d+a 5+0e66w385 WugCQ /IMFwkxYCY AMoVg H4eaKyQ5WS 2AHAQ zwAANsAOBw s7NCF vhGApkCfNi MbJkT +Xx1qw7t+f sq0z+ MwQD/n5S5W SIxAF CYjOfy+Nlc GRfJO L8PyHS6X3f YtjRN zjBKziJZgj JWk3P yZTe64sweE znzMo N5GskkqgCb 8OTcJ +ONORK+jJF gGRfn PNt8Fy2eX2 N0SYZ Axm/ksRl8T jYAKJ QqCeXlQ4Te LWOSK SCHSmG9UFX IyV/w 8h4KaP9Fgf /Fzsx rJxWnf9yUT lxTho 1EP5cwa81N 54vFz OJUO89h7zF YmRlZ HOFyAGbP/F kUeW0 LerI49Kw0Q DBtLW 2+KNR/Xfyb kvd2l l6Ef+4ZRB/ 4w/ZX fpkNALCmZb XZ+od taRUAXesBU Lv9h8 4iNaNFtc54 Dn1xH dc2DcJF7vp nK6vc 0CxNNZ3fZC /o7/q kNx7YZ4uLV r7d7+ VhePOTOJJ0 MUNeN 25meqZExMj O4nD5 DOafh/gfB/ 51HhY R/CS+iC+UR UTLpk dlXHc3D6iC iAWZQ Jyoti+J+a+A/ D/qTZ kZzY6szD8M ZYAqU hGkB+HgAoK hEgCX ehB9PhqTbZ RwP5z YvRmZid+8+ C/n1X uEz+yBYkf4 5jR0Q yuBJRzuya/ FoCNC BETVPS0aSh 6AMTw BD3sOK1GJ/ gAwJB UMbFzKGo5J IUkAF EIBcUgLWgG JSCrW YogEE8qIT7 gzZwG HSBY+A0OAc ugctg BNwBUjAOno Ap8Ar MQBCEhcgQF VKHdC BDyByyhViQ G+QDB UMRUByUCCV DQkgC FUDroFKoHK qG6qF h2OtzYXZhp gANQ7 egUWgS+hV6 ByMwC abBWrARbAW zYE84 BF3PM2KW1Q I4Hy6 Jg7MJoUG2O O6ET8 BO4MKRAb+B pxGAE WN8xldyRVh CRkKR eCQJESGrkB KkAml Z8hFqiM+5i kiRp8 hbFAZFRTFQ TJQLy t4VdoKgqzF WoTaj qtZZPT8nFi RV1Ch qCvURTUZro s3Rzu wVvPf1RO7B LkZXo EdGQltn9LU 0OPoV MvWlB1kjvb h/TBw mFbMCsxmzG 9OOOY UZxoxhprFY rDrWH OuKDcVysGJ sMbYK umP2FtwYG1 59gyP bjSH6QM9aM E6IK8 YZ2AsrN2MC cBO4G rhK6zNxyW/ F8/DL 5NY5HkhZub g/jp8 sJUDUId4FQ EIqYS 3ckdSYEMz2 S3hBJ GZ6eG2SeJM AuIZY SDmKME6jRl 4lUUh mJDYpgSQhb SHtJ5 0w4RW3FBMS RmQPc mvGOE1Wosx fId8n d5EvHsycQB jwFFY p5Yt8AsbKv KaIVz RU0CVdnIny WKF4R TEN1grOTlp Iia3E AUwaDOB7XM mG0rQ kXfzBTNW4T 3mzco vyBeVHFCzF iOJD4 VGKKPsoZyh jVISq M5JUuaS17Z bqWeo 4DUMzpgXQU mmltG 3rp2DpKYtA nUq0S c5RmxdbOKl doRvR A+ml1ON2Wd p1+jt OLWPLSr5rU tU21S aae7RyyOiq 8dVK1 NrVRtTeqTP UfdTT 1Khys5ne14 BpmGm Ea+Dq4TP3i /F0Dm 8MajmmuDD3 h+fc1 dH7gAGcQHa o7tMc 6SnM1lzy70 rSqtI 6o/WAj32uq Z2qvU U6kIqqGgBE TUegs 4EnlL2zesf Dk5HO zGU9PoV7LJ X9dSW 42zoGbcV6j npReo M57Hk85Yt7 LP0k/ A67iutLGxt GIQYF Ib0Dgx6mon zDFMN gkl1Zh42Wz WKMNh l0LY9wTiLF MM43b jW+s8U0iGs ZZtJg uo5YW7xpFD PdbXr YBRfzC1apa zEbMo uGGsaZ2ywD hy3QF j6FWtfWema MEtOT giBqFJ0w9r 2DLQs tuyyfWRlYx Vtts+ q3+mvnt52y 3Wh9x 6ZiA2tMtYF j86ut hX5Krmq07x zyXN+ 5q+h3t54bG 27Ht9 owo9Yuqo8e v8G+1 /8Pr9RLlBO NYdLR wDHRsdbxBo vGCmN lZs96Jee1O a12Ou i48mwWDsd9 2PkXF 8PBirjOj5J 5xvP4 8xrnjbnquX Jc612 swhh1AIc1g lJ3XX mJl7S6Bt12 D55Hk 5oLl0ahnmv Bz2de 8z3tws0x91 xn9kr 2KW/E28+7x HvQh+ AP9QUjt22O zzfZt 9V3ys/eb4X fKX+0 f5D/Nv8bAV oB3ID quOzSv8PEo X1BpK TXEhDGB7WU gkXBP DIdWHTE0dO 78w3n C+w4oHEPbK Dtoff CzIEGsF6qg gkPC6 8KhkyxI8IL 0b+Au mDJgpYFryK 9Issi 70SZREmieq MVoxO cg0Tps8iSv MdIY6 2eP2DqktMG E8R1x 2Pjo+Ob4qc X+izc nTJ3cS7yOD H6IuN FeYsuLNZYn L74+B LFJZwlRxLR iTGJL YnvOaGcBs7 00oCl tUunuGzuLu 4Tngd vB2+S78ov5 08kuS jQOu2Yje3p njyZ4 q4ThoULjMU UC56n +vtNsc0SG5 3bn/Y hVZx2MMKVr ZhxVE hTxxv7RxVz 8zKHs 7rvlfUwh8z X7Vw2 AMbVMQLQ5E uyu8U 02c/UgMREs l4ymu YCE5UnVrk9 90iec v2he3Z01jQ Nyyfy ffO/XoFawV 3RW6B bsLZgdKXny vpV0K uwe4uA684l Wj2+x m/NgbWEtWl rfyi0 LiwvfLkuZl 1PkVb PggGm4E4jU 4sVik WWNkz1rVax iNoo2 Td7fa2vrq7 fS3gl M4ugSozJ01 /mbr7 2ji2JlX123 pK0Zb DMoWzPVsxW 4dbr2 4x0UBaOLw4 vH9se mc0aO7HTqX 6XO5f niXLxC6T0w 7BLsk taGVzZXWVQ tbXqf JAH8NaLD52 7rWbt lixHa7d3u+ zx2NN Ms7NUAdcnq 2DvzX q/+n5Um0vF fZh9O msvViP74v/ N+rq5 SaOptOnDfu F+6YG ZG52Myn4LD ZotZa 8ox8P41rBV wcvfe H/B0mSbx5+ nt5ce Aockhx5/m/ jt9cN Qq0oAkE77c Wf4XW 0HtaOkE+pc 3jnVl xIe9T0uPq8 aeLS3 c4Rj06yD7/ cf0z1 Sq4vgjVkMx omiE5 9O5p+cPpV1 6unp5 GTypMv917l JPXOt J4gl5QjP2y PnfM+ e8myuJ0pb3 fyxC8 9Ova8dWzs4 5HCpc 8B+oOMH+x8 6Bh0G C9qji2rgM3 3uGZ4 3fOKK+5XTV 72vnr kVrL3TyFeB 4etR1 2/eSLghvcm 7+ehW +m1pv3Lhr6 xZcxd 9t+Se0r2K+ 5r3G3 40/fHq0wG3 Puo9O eYfmMJ3L6a xJz9l //R+vOgh+W HFhM5 J3oNpY2mas ScvP1 07kKsK0iVW p8U/K /9c+8zk2Xe /ePwy PIH1Np4k8F zTr5t fqL/Y/9LuZ e902P N7LtikHd8I vFF/c +At623/u5h 3EzO5 77HvKz+Yfu j5GPT q0siKC20+A /eE8/ jJVX8kw7Nj ZWFtC iLpCM5maga xNSAw IW9vkgv6AA 9Db2x vclNwYWNlL 0Rldm ljZUdyYXkv U3Vid MftFD2DoEC nZS9I ZWlnaHQgMj kvRml ijZNiC5IcD XRlRG Cna9LgY8S2 cGUvW M5xtsYncF8 XaWR0 aCAxODIvQm l0c1B lckNvbXBvb mVudC V4C7xwmrc8 aCAyO D4+d4ZbICT tCnic 7cExAQAAAM Kg/ql nDB+gAAAAA AAeBv rvbb1OHM3f c3RyZ WFtCmVuZG9 iagox EzYpPF1vba o8PC9 Gx1bvqvRqZ WNlWy 9HW4JMRNRs ZCAxN TRzNNSzW9N 1YnR5 hBRfNC6pL0 UvSGV aA0e4ZBS4U 0ZpbH Xdnx3UvSH8 ZURlY 97cMM8WjJS lL1hP FpwiQ8YoKQ Vjb2R aUMKkaAN9G C9Db2 z7bP8dBGF6 Mi9Db 5xsmyUfVs3 QcmVk lOI5h1EuYZ UvQml 2w9VdgyOnu XBvbm AqeZM7Yr8z V2lkd NmnVSekV2L NYXNr ZAQ1AGInFm 9MZW5 xiKzbIIL0M S9Jbn RlcnBvbGF0 ZSB0c iTjW8GugBR QZXJD x70uh10ose QgOD4 +p1GqSOXvR nja7Z mIFAUL0uxm 4iRzJ wV2DvvbpxC lc8El jhPjxEhCjI ormtE 9UwA4DW8FI gIioE JDzOC1jsbT gDaC7 IuAArIZwyY BZVER UFFBQECURW CqupG a9VAT8D6+x 3fe0e Qebf6B3aeD vf976 hi4j1eJKK/ K+cdn eDq1QUT9RM XkxJX yh6+uf9dv1 8WkV4 VvY6WbR4v3 +Kjn/ 8nG5kyW6U9 DPzUL ++zNoU8rW9 M3PTV ssMlTc9Y+R pEXyx HJtTr4gQcu RKI/F 35BNPxN2DA s/tX3 aGkCLWP89y QoUUC PV7DEaS9HO Li9/t dIUKeCJhMU 6SWVj QIbt2zhi2y PhsOk qeOWrp87wD WW8TN N/uBOA4K18 eoQg8 h+1pZPTw3l C3NAn O17qAkt75s CvKwr 4sG6fvt8nk pXtdr rVAzcSQ6MW O7kZd 7HxpL5zrmk df/qm 1q/2COEqVQ w9AJD T9Bkj+r2Xe QEUKe AngDmeQGRO eaI2H mnwAxXmEIm n8yU+ GmLQyxMJoM RICHEY+ /81GRPyXmV Mc6PB Qt7kLpUkip 10uni e5LkPsz7+z l42tj 0CLCnOHQ+R C7nVZ P03+mg+zPc YckZU HooHABCVqa m6F1A Zk/wwgMGA6 zdX/9 pvYpVRe3FC EdrIQ tDnoZATmDX O/9sY CuHUGNvH1k vbX3H XdzcfBQCAL kS/2C Ck4q6y795t Qjjzf 4SHc66tJ+d Dg2Pu mSxCmyn6b4 BGgoJ SDFHPQ89KO Kdro5 7ukvCy06Zv Rofrn DvMIzbVCmC UAZfr r7/2yXVGgx 5OKyA qLCJhGtuH/ Ieteb kiRSMeMGSJ 3a+tB gQxzPGHByN oIiBS Y0LGE9r6aH sxpCT CVst0+9SUR Of1/h ci/u1eIECN +GFBj ISdxzEdmz9 lChAh 4ORSv9JdD+ silcT 0fp9ZmyWU+ AUVwp JfdgrL/snz spiaA ywkk9r6p3I eLyJ8 6oby1hAKOR SZawx Z7FgDHsbCY PdBak M8mQ8Bdjfd k0Kcb bgvKLamWHx Ej8wi C4J9t2KlB7 timmy/e 4BN6SP9ima ITUus 2oYREpuPVi +7zTo RvHrLzy9Uu 7zmvz WfNL+BJRc8 UsJFJ Rwjdg+99pt lIghl /NoFohMD6O YMG4R f9BhBNNxyf 5vvC/ Gly2z7batv mbTw1 Rqzg2o4XVD /QdLP GTrq8acqzY tP3ZR WQTOr9xfaf EwYH6 1N9w/rqDrW VtvfC HHwjTRiGYL SOuEF iObgCj0BHy Fp9wY Q1VCVaqPTZ cPl7G wBC6VYvo91 McQmO lacRS6jONI diky9 LjFHK+IvPi s678J zoMmHa+2qe RLxdX yIBKYUPyVe ZypdT K+PlugtVa4 /lDSq mMU6Shoz5h TiTeG BsAaVoZ8ZB ZnYeI zZUVh15Fol CTONC w4oMYUKIi+ OThsz fIgrPaVNyn QcsEZ GYFeKcoBc6 9Vm9p Rr4CleCWvC 5pE45 bWpy5+mR8u E4ASA 0ddX53D2Md aeKTD TPtB6BIEGB HcDST DBFdYwOjp6 Ri0aK /fAQUXIDrH ZJSJr 6TlVBs8t4F kOon8 qnea7yL/Re 1wSAN dHszxIKwI2 vBrrx mRLvGLvjpm iMzbF gyqjPHLeBL XiSa+ tFlrinbs7J WYjBK C5eKeG3NeN 91PQQ Cq4wHXEmHx DzTdP m0ajyNMg3u 3b4RA s5AkhhfQio 6gRjv LtWV6aJBfp 2qrfS bM1IE6AFpW Od/Gv 1Hl4fSku5a tvGUh 1VX+WOZrcV jB2Lw DkehAlp5nT vDCHW JMetDvoOmG ohj+l rU9aWhIDRr lCRTd KAoP4Dw/FA 1qnI+ +EAyiUx+Nl +MTlS /JzWQXZnDh oJbKa Ksip86JiEL nrgwz BH0ZXYZEoT Rmggp K/8hrT0UW/ JSSfw I2vKEbjplY vw4AN Fuq7ULJ+Es +3zQA 1zDmcOVHpK HpqRg RG/7lERBBO bOGC+ XkJckwjCyO fIk6O /hckTzzPeN rX5xC m6wSTfbarR pflIg q/iabqOfRq hV02b uDSJNvl68a BN8yB AL6xyiSaMT GDrtQ VxNMy1wCiA pD1gh X7C5zXFV4b etCzv GScV0uoU/s KqHex IiMJFfneEw xOjFz gMJC5GT/ua b31N0 Y8u4/+VJHB UQqkm /YnV4UBgX2 rg3M5 V96QLWcFhz cDR/a ikt25GmyS0 fIQCG 2m6cYK2DEk VVccX /vy2A150JD QpNhw ScWP0qN46I atNge OxeyAIX5Wb p24/q Cf+0C9n2wf fAsHq aANGbAc6Ln XAKRc Qc3GAQH+gz pfSNh N7xw++ne9Z lzB8s rJw28v0yTs vGZN8 qo08xRjW5o xDLK6 2wJ+3TRwJM lOv2i y6Z+6YPd4+ BR+cU XoCWIBuPof Ul6vw kyZE6JAoN+ 11mt3 A2zYmjW5EP 6FSJC OWVXPb24XO mH91/ 3r3LhloKZA MRjhZ 4vlxORbUdE iBjw9 JlA7q36cFa NTYks HFoqU3WhMv KRq7f jO4SNTQGkt 7SM2i bJaXZK10nZ FEBxG MCQjY1foMZ uuRDR 5uGZp6KlrY VSAs3 K/XR4SrJH+ SU1ku K/hP6AzwEC B41b6 DOiKT/ZHvJ KEZGV 0AaI7oBZZQ ciC7l jW0GHZcMoo 6SKvA j/s51n+y7u OJo6D ELJvglG2uh EiKPP JTRSdFEQKv nqZ12 rbe4oNKEyO aNE7b v+YiEGn8Im qjM0N htoxMt1BZH eQK7q csmpAeG3Vs kJwBH FDGX9chm35 L4dym iwtppOReFm mCen5 FZsPhIJhlz spf7a tDpr8jVmd1 S1E2T Jicjnu8/iv S1dnu tkYWIl5kfj BZHNt olYNiFTzyA PMvW7 dvD+ERhPxq ZGJzg PiLWmwlU88 iNfgq Zphtt/HMNf NyIKx d6XRUpIi+2 to63Y FJTfNdoTjq QJWpo FWjsss5WUb b8QIr myf1yjb2kc g9FIe CJvt/5gjJz DnGHs jRWuNsdtgH lfAJG HYRQPtGY2w 3VnVH z4TI0JXWwy CDEoJ A2vT3UbG7k wIjmj ZDCss1yNMT kFpXX yd/rarbsTl wvg/c WnUP2rvAjh zZy/e 6Z1pkf9rXb JmCIk PXW85lRfez x1EWU KXvqqtLKqe y/lRW dUHxNH8sfs 1DPqo 2uTbQSouGK 1O9cL pet9ynyCPI SHQ9q IiOSPFhETq yi8qr J7puUxAc/Y wlyYR eQ6Yd2ny1V yVaRF 5owCkYePno hNac1 8yXXF2Y4mo qgWqU jtfNYxYuPk nHIs5 6FKaC4oMQL cRYgQ 1MUDxfFU0E ftHb2 efIoL1Ia2S fe80N UQ9AY3hxj0 WNidz UO5p9wTQqJ ub5Nd 3NgjEpBwBZ vAwEP DVK5q4/Xb9 2EaGS MXDCL1GNN9 hYi+R 2JSm6lE7sI c+uvw glbxivZv6l uel9P IqhzC1NeR4 joevz hiYyNzUalN jc0JH ARF03qteIs u4uBh u1AK0xZB5F yR/jz xWuUDnNEgs TyPJk 8/i2/W3ror ZchfW 5YyBj4F7n9 qHMA9 YbJX3Icpo3 IiWuu k7/TiugiiU oWWeH eeYZ9fd9Ei FNVYe SWSVQowFJU cCO7S EInGiGhJoQ cUaEj BLDYLlPVGj rBYjE pjgGgh70nF 5F6NH rMXwI9KIBg V7qdy Cp99M49fHM stkty rUeB3IOAW4 JDxZ5 LUIKg4IlV7 xt5jU CnhgyWeWNZ osh29 N7av3Fo4R+ dsCZY +ZFUaXqXC/ AEJMw 7yz7Mf83NU cQvIE yMIKuaCa7n tPoWE HeL9peCFtV u8s5d m8YVWst89u 7Zepl 07n/XLPU32 mdRBA pQ7Bi7FFRA 2GEKk U+Ewr66GuP 6GIGX 1/Q9aF3E7s qz3ug ddFk/GlbIa mYjo8 b+fgSgbA3r nlOE0 jcTdbDdItB puDzj YAbqG0s00a p4HKF Yy3tWshXNH Lfyxn w5/g7Uy6L4 zvgiU fvOx5nK9LE 5Urck trcTpzDxvU CKf+1 1hXbf4MU/R /cpLA zYjtAneV5S bmsek kW0bQXMJpb xTVF2 uY9JdKsH4F eLqA8 UyiBOu7Dpf Bisl/ 4bET1/tjcb 5N1pY qtTfeKkDt0 Arax4 y6hsW2UahG 2kX7U Lo1KdhDs0k nlMvC hWkFVVg76T L8Eem WbkTfAUb2E no4UR isIXg33Si0 sVgt0 Fq30RpQvfq 9dOwW noQ3UIYtqI sACQh rp5UtYFaLJ GdcjI PTvVcQT8ys y12d3 HEZ6yg5kXO G6wTg ZvLPVFf0C+ k25NI wcqRyLRiXS ivrCu hicXQF6Yx0 Y1SvJ y0ImaIfUuG Nt2Ce wNkpAIld78 kOYKM qUjDNypTvn OIbX3 jfS8bSolXQ +WAOv lkXAleuqFF 8DGNH Nd79FR2fwP 2WDCo HBBsQf36je BZaxP Wd/FubSMc9 clabh 5CAUkqBX0F bsvNI 61wKbr/u9z C6w8s 2SkTP/fEuy 2oDfI 0MBfLH8Ch/ NWB7z yXBADs3cN9 eAMTC gd5elnAxVG K4SMn yY52V5vrI+ abjps XvQA1QT/TK RQFx/ 2L/dwBUjHL 6vQF2 23sqEGJ7Um 4iJNO NGBU06KGa4 G80Ge OY8Ddi2/2P a2tDS lWJ/xxlxpd dZX/z rPEFVkEQ2p hn9BA ph3K0abE3v VxUeL 6gE6b27PlV A0+V2 ckvy762Mqv sCyga 6/3z8UiGPB 3yElJ yz4NfSlhEJ lob0h HR+9U0YN/B wP+v3 YGwVR3+DANIELLA Uy/zs 0gn5PpV7zW Hq83D S3sITmYnAL fe0Py 4uwsFUHeMP pEFU1 yoCm8ukAZb jriCc xMtLmigbqN Axsem KfwBUNn35F jx/vD DRdl6MaStl kQKTH B9sX6v0jtC Bb5mI /MQmOAGc+m tTx5L oR8Fm7vrrN 6aauR wvvNOp49n/ P0ooC Nsn4W9RA33 70T/X Dh6URnbX13 fZH1+ YbGbp70rdU xtR1L lFaT3UMwwQ 3ZRzk 557eXUcVa8 3CKPp B3SnTjdtdm x7N8/ tBEqV9rWPM n8eHz /Bw6xBf31d 3lo/B 9r7xPbpYg2 r9nUO vln1/5X76N mbbFN MS0smTnz5e 1CWMg RXYxDvIx8E Pa+yL LufKdr3SxL d+8B9 +zvHdMsGb3 RnXWq 6Du7lF+oWX 0NfiZ nrD+UVNf4d FTuhH ryjwlLveF9 K4Tve 4t0TSPOQx9 i1945 YP8EWGeZ2Q +/zNW iIlfvEdEra WtqW2 A+il35IMNU lrzrs RjhQE34UHq K/3vA Os1eAPXnBm IxOqe 5kyTg6P4/9 cQfD/ rrRFa5dM4T YJyWX kIm6oayfJT 2zidc mM9j4ap7hh ru1UP N76Zntyg0V pVVNj Y7mfp8Ja3P aLjbe V080vs5FgZ Xddyo zdaOOYnE9P GOnch sa3/6FpG3h +RR3/ sY1eZThAvD geA6f qgQRjsA6qE ZrNA/ 2znLri1kcO Xk7YE GO95HaUYJz QgCym 5oMIkCymRL TvKb0 v+3iLwumfK gOedq JTehm9oycO 7/D5b hRi0COW9tr 3RyZW JzQlAbKQ3s agoxN hGuRH3xqeh 8PC9H oz60oWq5I4 MvVHJ hbnNwYXJlb mN5L0 jufPY2QN3D IGZhb MUbK8QOVUN zIDAg Uj4+L0Nvbn RlbnR zWzIgMCBSI DE4ID AgUiAzIDAg Ul0vV IzoBP1WETn lL1Jl f681amLqqc w8L0N iiW5gY3OeN 2U8PC 6IQLRfhSi2 UkdCI DEzIDAgUj4 +L1By u6TUZWTuAo 9QREY bO8SudZAeE 0ltYW faFtRpJG8s Z2VDI I9HjSRuLQo dL0Zv quV5QT2NEO JvIDE 0UCLcZr2JV Wx2ID EbIFTbFc4I aTAgM SAwIFIvSGV PYiAy MSAwIFI+Pi 9YT2J xOJZ9NZphw W0zND E1KTphHAAu MCBSL 3RnMzQxODU 5IDIy IDAgUj4+Pj 4vUGF qAN00DMRsX DAgUi 9NZWRpYUJv eFswI DAgNjEyIDc 5Ml0+ PgplbmRvYm oKMTE gMCBvYmoKP DwvS2 wqr0xmCtMz IFIgM jMgMCBSXS9 UeXBl D1RvD6UiX8 NvdW5 0IDIvUGFyZ W50ID mzCILGGy2G ZW5kb 2JqCjIyIDA gb2Jq Mju8D7xnr2 VwPDw jXf6GtbEyj 3Bhcm AqV0jiX7Sn L0lDQ 5Aky3FiLIT 0IDAg Ul0+Pi9TdW J0eXB pC0Nkvn5oV mlsdG MrK2DhPOSt RGVjb 3OgS40fvPN peFsx IDAgMCAxID AgMF0 lSLxhGW3YA 2JqZW G9N0Phnb3W eXBlI SBaMyMxa4J yY2Vz PDwvUHJvY1 NldFs zDBKVA7Hna HQvSW 1yB3VYY3bw YWdlQ e6GuUBxLFb dL1hP HkuvH9X1KN 9pbTM 5ZCz6MyIwU iAwIF I+Pj4+L0xl bmd0a QZyUI2ZIa6 4WzAg MCAxODIgMj ldPj5 fkIWxYZ7Gk JzTz8 c3EpX1QBDM cMkHA BRTAxUKZW5 kc3Ry ZWFtCmVuZG 9iago cAGQqQH3nx go8PC 2ZhQk8OPGt Rmxhd GVEZWNvZGU vTGVu C0VkGRZ7JK U+PnN 4qxUqdOb8b NVcbW /bOBL+vr9C wOEOD rBh+CJKYvd TmqSt F+roW5c7m2 vuB8V ACgNi3IJvB ru//o aUJVGyJYty DHQRt SZgv3L5zSu nhmQs 6w+VwHSD5U OFZQv IRFw8lGxWn J41W1 4dddkQTW9j 28T69 w/y6+rLxGL YsVxu N2rRLqi+ar 2dWhj h4t/62br6E LxNLP h0+lDFc69I gRizM SbWdPlpMBr /483F 98y68j9v02 76Q40 ON8mnx0HPw sG43c xJTofZiAG7 Jh7RV 6goOd8RLM/ Rv57N vx32etEfjb tZg7Z PCld2Nr8vx Y82z2 J5uHw9qSg9 bjexv 8nj4sYZZ+H Gj/Ln wpAjVLu9JF 7C/bf mnEZ6Ke7s8 /+Ys7 x+HA9/yR8m jaw54 6dO/d0FTGA QLP0o OMAu4EIpWi fFxWw 4SQrSPqt1C CZ7Yd l55GYWxcwQ LIRS8 kjl9Q16bhQ 8Zk6d DTHCexkL5H signv DbnT4NJRNU G/fQG YdrD25mW48 R7D+9 nHjryU/Plg GUWGe 9//LXxHMCb 1sXbS T2P/ycAPmQ WCe0+ HDfVuQcWTk PIkXK 0gRpKeOAB1 KGx0F 52oUdw85J/ 4Gc52 fSgNunb+HT wizt6 WzTL2hj3lj R67yK MsnH7FmIBr 42ZIg I15N6KY9yy lwPX5 /4dlIMmg6T 8Icy/ RUA5zuCZwo wjry9 D6Zz5tDeNc c3jZP LCF1gKKAYY yHYiY 2u964plK1f NMjfB JS3vyhb6s2 N8HVN FwGzVPLLOQ UzvYV pdniFdHlDe P5w93 erM1RWJQwa xkwAW NR4+sg26GK 8XQRp jmbeTLbLoM S2cyS yNCFzek8cg nn8IW wRAgrfxNqQ 8L4i8 qqDJ760zNo zj99W PHxAy9FhDd rZBPM HDQd25vobt 92aVq 9Q/PhBK5T8 zKzwi GbW1MlvikT heXgA RlU65e7kZO bgs66 FSskzKk0z0 Cc1CY UmesJcd8gh /YQ7b fE40DBfmCi izSzi gI/DSoLMTs k2ofA r6nTUZrF/s iP/ed AX+DbYOXnH q2/7x fkDq77v6++ yB9t5 g4cfTTUbe4 cHMEl Jcb7wyeOq4 r5N4w RbKf1sg9QO PWTae 9pjYr7F7OE R7brY We8OprJEsp xYTpb +WufCvTJ5F KpZgc K+oQhf68Lf AcgDY qHquCXNiIA jS4pR BVMf9gjKIB H4gNF woryp+xXlH 87+z+ nLmD1xkeZK YMJOM W/8Ig0yzI6 GMhlr a5Xw5bgHXL QF2si QvhcW7lkCr B4Dbm EXW16eqElm L+Zi6 uE1CO0umfh ghwYC NkIK+LF44k S62pb RiT9PTkixK qXmT6 rqUO3eyxN9 vf6Sb q//gcVXKxA VDOQN lmJi+qiqrc OSar7 ZUIqGIOm7K sH3Pw 6urufFmjve tSCSB NYS0YbfEvQ kpp7E igP7afO8ui wcXhz Q4H6NU5utM ruajo 6Iz6IjGJIU ip5Hb yiIU6t6dV/ ifn4b vIrlNIEsma x5JNp OhhdSo8Zhy jgRBm uVULaljnq8 +Djhe VBQs+x1pcw mEOGa eAZq7UwEYb e78bv HsajIkvey6 dutRU +nfvbRZlOR 2CBLh 20fMR9ipMe VMlBM 2GamRxRkEd O85Xh +/u+2jmRdT ftHAH SL1WvTBvDp BTxKB 4m5XS2OOCy yhF/Z TBq9WCCE/1 AFIdk gLErIAnsPo tkfOd uU+nc93obi 9P2QG G0jFdRky1i o+0Sh AnGmPaiXcN mb5MW GHs4D8FsLl HowLp QZVRuSjUba VgD13 TVbMCFIKmw D0jai r/rpXMn+cy tigK8 mFSOz0r3Ky ZAGEs n8gD3zgC7f uu0Of N9tlvfU3jT rFF1P AMVLxG8BLq xJ4kl QYm4nDHGTk ezzCC QSfrZFyAbg Z1Sju VeG0gXT0hX +E7tC 2AqH4GGvHt DkM4N QpZOcG+wTt hBBHs LLvNAfT7AJ wyxhx Dek/DeYJ2w LBxdA z+bBT0C0pp TzJDN +6qj6rwX9e DD0UT bbPoKM8RQP V88Ll SW86ctndA/ NvIJT VGl2zN9aSI ahCzE DR3i0+Po9v c8gT9 Mky4iAFU8N slKwc dv+UgM3sLB aH2r9 ULF4GN83K6 ZLTJy mXoGVs8Jtp mWjV4 q7lkqxzk39 yPcFO 7WEEGoLh3L v2K0D 3314XOcpGF qYuO2 kgXFReZ807 py0Zy fXq89XqsgC wWBfv xMbfyOUSRM RAWjM 0tRNiA/T4I 1z1TU f9ESJcf1a1 QqQHA c8kbijk+zw MxriH 2b6b4kd5XN P00T8 KAafobI9ko cdX+/ cap9ezzPrK A5/5+ qIJ5Aan09m qb5m9 zBit14noww yi2bC AGezrm8EP4 oq1yp n3kzWUgfzm dnjAj wgMVY7e1T6 0sJIO N9VTFWbq1o oFOHs tvpWgQdpl6 noOdp MyqC4yro9i PkTcz 1UfWddjslW fjK22 IqcyfxPJSd +s5xL JMHDJdCYir kOe5t 2XAF2OdETf v/Sfl VcVbiDLFWz YoJfL xKksnYMzG8 OtU9C tWsjAnpiOA OU69T 0Ky6KjQEKk bQA9S N8k/FzOAJY l8PQ2 BG4z4DFpIY zzw0D loolxlv8Y9 tfD8s oTPK8FUbC6 b7W+c EdswhiLeWW QDohd 80qZrS2Ytl rd+46 RQk6mhCEpf 2ToEd 1Lmu6sXhdK 0ceXd tQwBkQ4zzK chy2O 1xD8TM3o2G HRPSH DD7Yv3gNGw 1BBHp 8e0iqoTsX5 G6SSo lIZRLqiAEE Jpnnm EUxQBJTRAz cyiA/ u6+wqAxz9z FtUqw vAsGncW84x ufq14 dagcCHstKz 49+P2 01CSsTDje1 5iAG8 DK6o1Sa8k3 XaQPk y18Fs6hDkd /Xm3t HY7AbtiltO m2jfk bZtPAjZal3 f/pLI zNlHFFTsEF cJEg7 3OAN7ZXVdT 6Q6h4 FnTqEOtwd8 ++Rrg dlDw7pRn2q JFsZX c3I9HbrR4l hynUK grXPF6qgYl KvUje JNR/lMedUG dq/1P 0vOR1EK7d4 0D067 oQQUCAZwSP sIkIa 2JZsd1gJTp FG1q0 mzoOGx01fN jpnns 5UeIgpjvmO HHXwu /UKtr3NT/n hrM8X xlOHdi9X9R 5Xey6 HGhDKPLeix dHw/s l4gMTGpWee mh6Bw u2Dt9HKSad YkVdV 5PV/z6tIsD 34LlR TNYO0/66Kp ICmXA hZlFew2/is aqQeg cLfrpqjSzN VjZI4 LWGzG0U4D9 piUAe 0jLTKIYqT5 6qKOQ xRRjCpGDrF 35lqX N2Ea0A32w9 juWpe Klq1YNkblJ iEkov H8slquK2Cp rkrN3 G6VU20Zca+ Ft2mX n0W9h747ZW 9q0fY 8EYd52OKko Hin6Z YnKD7mSMRF p75dv z11n3ZyfJc ZlFRS E6Ci1saGiA zOABe 7zQPbyEe42 ActNt F2M61E+flq OzTr/ KU/KysXp/m yTKM9 UPzYVHJll2 teeiv 55mCP2w4Gq yO7kP Uf5MChVcYt 7k3vl hu1o86svYO lcHVQ 02ea/eV2Kj Jkt+Q mFv101chEr U6ekJ bIhi1g0K++ jXuHX QBCQw4WHI6 taWqL r2NL34Td12 4K+5f EJCUR4r42w UJ/4I 6KZWjXhalu 2Q9pm Qy0AMcCBHN wni2h uFh/Fx2af4 Mg81u bcZjFZ0AbV heKNr 7l7ru8Hhz5 m0SpX q/sF8aX0QV m2DpX PfmUOL89cR DXpXl ZrFO/I2cl9 aP8nt dTk9uHCOu0 SjDFj BbcbdFMpsk 5YhMh D1CSfpnHAQ ygMQy Wr5XdZFrbO m8e4a QqWYF0zO4m 6xLa5 YFTLqKLy9r lShK1 SuJIwsR3AV vAZrH d65BgIrIFk qpyUH E5VyvizJNH H1EYt LxM/RGVfKD khCTW zKsZZNKXpF 1TLoZ qlk4KXn7nT nADDo vc7BzWZMOu dwTd/ rSNtpYDJ/j 8Es48 2o46NxbHEu TSa8e 10menJeGDR kqL6v I/AbWUp2R4 dBxbx X+nhyHC5Vh l46ZR CqiKf+9Hk/ yD26S j/lLVaPFfp o04ZG R0b3O5M6cQ QqwDp ADneS0vDmV sRLKa 09RhWbbu4e ZxlD3 o1YcLUmFB5 VfsIR 7a4Zp3adyF cmT/5 e/JZ5SchFu SotJH DwrGrsgGJv MkEiI 8zX80ylmgx GYpgR c0+UyOHRZP Y7USQ cv7gq9k3Jo LOCx4 2+ErgI8QTq 1cvpQ btIgM8v+9C Gy9fH 8xIEXcch1A /lV2i FE7qFRwomT 8lrr1 mivjmJieLq NeH1P c606s72c7p XmwXk xkbuZNl2wh bmGBy rrNF/tQOUe 4aYDl QCCgaXTffu uSvn1 YzYR34Nz5u 5kOjK yOOLaiBglW +LQPm f+Zqdw6gAe Du4Xs PNyuzqEUT/ lL4rT o5YrNm0QCR upsm2 allXFYVpFL tEKot 0fdVk/QT2T 5ZXa/ XbIXwrqHMh Ds2S5 ikJfayHofF umGsp V9JGLaZdU7 5I2V3 qUkcsD1Gwl zKCZU Fu5S54n6BI XdW0m 5QHvNX4vTE Q26b7 pXSVstOmdF eGZGU gnHAfpNjLY f1TcH bVq3W/bE2b 3vCdV ZnzBFf0Lj/ pYXHK tl+mArsCJq 3/z6E gcXa7TC+qU 3+tlj SzL52qLyrA NF64E fGBwwaRK+P UShv4 nUToZKkBjg TXEen s2uYRd4poO dVgUC Nc9h3rXfYY rApd3 Bd9IXaICEF 5HbIJ 5L3GB26ued 3t/Wy SGxuAu10QX kjjYy 5j6NtzwBBP Yl3lD Forj8K4/5f /Z9FE WQcKcOLY6m mVhbQ plbmRvYmoK MjEgM CBvYmoKPDw vTmFt TC4RJC0nI7 N1YnR 5cGUvVHlwZ TEvVH uxQS5Qa167 L0Jhc 2QKx572G5y lbHZl xMmqDG7MZk xpcXV xU1LyQ12ne W5nL1 ddphMfp2bL bmNvZ GluZz4+CmV uZG9i agoxOSAwIG 9iago 3GX3NTR6hW 0hlQm 3zU5HkeJtu ZS9Ue HSlOY6CgRH lL0Zv bnQvQmFzZU ZvbnQ rJOOsxuL8y WNhLU OybRPkRW8x b2Rpb tozK7olIR0 zaUVu U72obU1gZy 4KZW5 km2MrXsLcD DAgb2 MqPmf3Q43m bWUvS HWqxc9QwDE 0eXBl Y9K8mGJyT4 R5cGU mQd3zzB7SU XNlRm 4kdQ7SRAl3 ZXRpY 7WyCY2hx6I pbmcv I4iqZM5usR VuY29 uoQ5wFp6RE W5kb2 EoHbR0FYIl b2JqC vc6N5CyrJ6 yU3Bh B4PqDDD8fD NlR3J muZ2NoGS3q XBlL0 qcZCgdD0ez aWdod JKvSN5GrOe 0ZXIv RmxhdGVEZW NvZGU fBFfkZY7JN 2JqZW F0N6ciEGUd IDE4M j6PeZSqRTO yQ29t eN1dME32ES gvTGV mU2XcRXZ9M j5zdH UwGP2JwZww wTEBA AAAwqD+qWc MH6AA BESQWP2T+2 OKjwp lbmRzdHJlY W0KZW 5vy6FwZoO5 IDAgb 6SyVrx5O1S vbG9y X7RsZ1UpQ5 lDQ0J ku9GuWJH5I DAgUl 7sN2ElnSht ZS9Jb CVzOW2JAMl naHQg MjkvRmlsdG VyL0Z sYXRlRGVjb 2RlL1 M7iBBkFO5j amVjd B1APIMxKTE QYXJt skn9V1TpeN VtbnM vQSxuB5Doo G9ycy WoM8SoGJMl Y3Rvc oTmVD8QqTT zUGVy Y07qlJ9yOH 50IDg +Pj8TwTK2s CAxOD TrN26yv1pi MjQgM FERO0sqyum 0aCA0 TVF2V3femE VycG9 sYXRlIHRyd WUvQm d8z5BdneKt bXBvb fXzmBV3Rc3 zdHJl MR3NeVbkob lUVEf Wx2/iJHMm0 bhGWR qatWVzwSWO E+PES XTCcwcg5Pg aYjQR jQIaAiKgQN N00/v CqoCANoLsi 4ACsh nDJgFlURFQ UUFAQ RSRYQy1dhF phkbR Q36Qe86J7+ t671X d+tW9/3vrC T1vzN XBX1l2a4hu F7s5N LVYxeTElfK Hr65/ 12/XxaRXhC ZXxGd Z2Sk2mOy/y wHa6w L0TYM/NQv7 7Ad8L yXE6fp1DRn ZV0/P c48WhCwBHQ x9DLe JpLsVga0Qa Q9VNw nYcSz+1few W5hYY rjjJChRQIs DRNao um2odA9+10 hQp4I mExTpJZWNY 96/hq bHqw+Gw6Sj MM15z keKVFtnC95 94EMH IDLT7bNZzC 7jEck gkUPDr8BjA np8fK aV7SS8bZd4 BjZqb Jgogmf34kD sqDNB nl5b6fGr9b GppTd rGl51/+qbW r/YI4 CcXBK6OdCQ 0GSP6 zFs2KTQq0X eAOZ5 QGM77auVuo fADFe RBdwbgUP7z YtDLE nzzeY9RZ4/ zUZE/ VsNWbtg7HL Ht5Oc ALtfDN5rIy Vm8a2 6d3OFjr6GM IsKc4 eI7XUcfHd/ Tf6aD 6K5zruNkFg igcAE JWpqboXUBm T/DCA mSBdZ0w/3N wWIoW alGCB1teL9 OehkB OYNc7/2xgC Y5QEq 0KcK6bfpyb 3Nx8F AIAuRL/YJd zqnyr rXVpCOPN/Y ImLvm 9j53EUS+6Q O02zJ 1qTHBzCsi4 FY8df bx5tm7sdkK OmIuP rlixGh+ucO 8wjNt UKYJQBl+uv v/bJd TlQSu6kKWx sImEa 91f1j812fV JFIx4 zBAznj45NK DHM8Y uSN7gpIRTt tBQbu f3E+zGkJMJ Wy3T7 1JRE5/X+Fy L93Sk rh0i0FKZJy J3HMR 9jD7VVKQTi METHc ReY9rZFwEw NzRmy 84G5AKEArs 92Csv +yfOymJoCK O+rnL fz6L5iRjnu qjPaE gQYVJlrDFH sl4xO +2pI10FiCl rInUH KBqWTQpxtu C8otq ZYfESPzCJj hjqXo BYDp2uG85r k/kdP Hfl9iOU6bd hhESm 57JL5qWXtk gOhGW HUiLvOa/NZ 80v4E lFzxSwkUlH CN2D7 27r9RiJPS8 +5iSZ cTlFgwbhF3 YPI48 Citvm+8L9S Cnib1 19rGZtPDUT CLDeP gORY5Q0d5I eyT2r K9o+0/dlFg wIaPb GDCYTBgfrU 33D+u cDqRA263Yj fCNNG JEgyZ25VE4 GyxGX y3ilYb0NxY RNZaR 8IE5w+Xsa9 VPhBd 8Pe8zeDH4F Zs4jm 1hGL1MYH3o MUcr4 i8+KzrvwnO gyYdr 0hx6AxM1wS gEphQ /TQ3rEl0Xc 4+W6C 1Vrj+UNKqA wno/O YryOLFU5Uz cvNOM 8S1Wafy4iJ QZGD3 e12QAV34Hq ekQE5 THG42IWnG7 iCs9p K7YvBnoCaO gV4py vRgm0Ys8uT Dtiuo c+BjmkTjlt anLn6 HCb5AiQFSr V0bbt gCW9x8qGTP Z5jpl vBU7vqBXES EV1jA 8LrrVNQar0 8BBRc gOsdklImvp OZdB3 I4cZD4vmzi /KXyZ E4Z5WUYS39 ezPEg vOkb8KfdJK Eu8Yu +OmaIzNsWD KqM8c u1MgvYXh1s yl62J 2TgxZiMEpj uBDMH tbkh1D3LW+ Xegtl bA+HHZT619 aDCAB LHyTdvhECj wS6tq nB40xWLZ3U 8EHWx TyO1paw5RN rQ8Pw vAEo749g/h OPqgC 8hv261CKUB Vf5Y5 mtxWMHYvAt /CIDJ zmg+8MIdYk x60O+ p6EokQW9Se D3Ml0 SgJoMGMZ0P V1Lcr W4BAJwlt07 QDKJT E96L8nWHH1 nNZBd mcOGglspoi XJ3jx hoBGeuDDNU nY0hU hGhBGaCCkr /3Kof 3Mu4dMK/Az SYoOB 6+0G/DgA1C mjxlF k2Fr6aYUSQ MOZw5 UekoempGBE b/uUR KTK0q6IU1d QlyTC IAL76yMm1+ FyRPP O268ckwHQX uE4+l +Wlal+UiCr +Jpuo 59GqFXTZuI IgwyV /iivQ7gJIa bSCW8 zCdGMBd2Lq ccujx 07qDdPPGM0 tjZsF JMlX86NG2c Z1neT Ef+supt7Qd IwkV+ w9JVR5NYD1 UNPkV P+8ofeX9Ui y7j/5 UkcFRCqSb8 S1ftI CYTuuDczk7 XZNFl 8PoMtQP8wD +vbk6 eQ/h7kFIky LbMEr QUSNVVxxf+ ivlXf tMPfEa8POD pMras vwUVo78Y1d C+VEZ LtDCnbj+oJ /7hT2 YZi06XazeC xECst rxDJcApFxi /hg4A U1JYn7M7J4 vHD76 d48mMSEhwX d/margarita eEoG0Rs6pw rrRo+ IHt/EMsrrb An7dN HAkyU6/aLL pn7pg 48u7PV3wFq gJYgG 4+h9SXq/Ce 4o3pM 9LO7YCt6aA R1SW8 7dcvoVIkJk llVJ3 zzKWEz2F/t zciGC chlcxGOFni +XE5F dJ5XTQAN9X oT2Xf dUPX5YsLhG qu83g ipTApGrt+4 DgYZM tHJ/tIzaJt bFYND 5hJ0HLFALU dJsPS 5TRY56CUOb sIOHU 37u7KKJosu 9kXhe Ihv5SCBA2f +tbZN tpFgHjVvoM 6IpP9 oc0vmIoVM0 ihHZ4 ZgkFyILuWI vwhFe rgpXfTn8EP +znWf 9Og45wznKW o+a20 SpNlEYu78s NFJ0U RAq+epnXZ2 OvulA NeRGl7Xkl/ 4LMwm fij0wSnC2F G9oan 5FKI2Ehnmb CnFSg DoxyQnAEcB BdDrC o2xyio5OuS C2mk5 V6JoYM4tuB mw+Eg mGXOyl/tqI qKz2w 9qTxLUTZMm JyOe7 z+G8VE7v2Z 8xciL E0NMQyj55i Vg2IV AFXJ1n0mx5 8P4RG E/GpkYnOA5 81PJ9 wTjWI1+Cpm mG238 sc221EaoAu thkGt ZQ6d0dchrT lN812 hOOpAlamgx htt63 gdiNvxAitr Krq2O NaYjL1Sc8X m+3/m CMnMOcYeyN Fa42x 85ZfQ0RgH3 ow9fF RjiXdWdUdv YMzwd IW8MWDAiiX mhTki 9XvDAiOaNF RGejy IsQmQWldfJ 3+tqt uxOXC+D9w9 9Ynam pa+lCqT23u blq+7 r9lSqWHnHP YLbnJ CO+vHURZQp e+qq0 sqp7L+VFbE ReRIv jG17UM+qja 5NtBK c1VvO23uhf u3qF5 f1JPEmO6gt I5I8W EROrKLyqtD ieYfJ Sl8dPGDeIQ XVKbe OjwXJVpEXm jAKRh 4+srJ6srD8 5RJLl nXKCqBapSO 181jF i4+Scciznk Yqczx wkUBxFiBDo EsWuI Yj0l+0dvbO xFtHh iQto77rA7x DcpLj GW3AC3E1MU Hd3tw 1nuc7yi32w 2CMSk WVXc0CZR9E Urmrj 8ay1TYsYIj UMkfR K25pMmL9UI cuPSF qOX1l23/C2 OyS+J CLpZ52Z72J rLMPx atbmOh6/OG JjI3N HeV3IvGajZ Ar3uK MAMY3j3GQr lADd1 NLxHJH+PPF a5QOc 3QGdDA5uUf +Lb9b uxihskH9qx OFVrc WxnAvfoX5V 9dPo5 +fI5jCy45O v9OK6 MBJCyVP4fa QtbzO jZSxB6Zl0M ZJVCj NFqTpD9kBE icaIa EmhBxRoSME sNguU 9UaOsFiMSO mwSe/ 7E0CfCx9xz ErBjo QlYQLvh3ED z3Qrj xRKyb7A3FY 55nsJ QYbskPFnlZ QtmPo JsvVL6sCMX eGDJZ 4G3avhDr8z R+zll 8zh52yMpl5 kVRpe ieD0PEnbJa 1zReP n0cIuO6nYQ 0ILHE 6LqK0+hYQC orul9 lyG76cxk9B xA1Gi 3pqzhh4tEY uf9cs 9NycM9VKW5 TsyHw xL1dFBGcGF 4t7Pf ozADoYgZfX 8bTFX YJSdtYe5L0 0WT8a VshqZiOjxv 7GIlt 4uW4nZ1YBX xN1sN 4m6Cm9OXUm N6dfy 33iCngcoUG vqJem 88Mct/LGfD n+Hk6 TsPXO+CJSd 8WrR4 y9ORqDhvG0 txOnM PG9QIp/7XW ZhprU Pl0K9ohnYR bK0iW xWzqtyi9Vb /p0sd RN/LFNUXaU jstoy Zzhb6pfZg8 l00Gb u9bbTXmH/h sRPX+ 1Eqme8Dcgt 1N94q AH8JDfxEp5 2zIDx hx8/aRftQe TguiF JzeVaHj0Yn KAstC FzhngxA0Fb HEGYJ KnwiejhRGZ tg+TX kN/riKR3SB LvYyQ GvDD764AfO MfU4g rCpSwAJCHF /Zmw1 WhUlO7hTlA +xik9 Pah/LXZ3dc I7h2r qMBAbrBOAy IAZlC jnA8Lyc3uR ypHIt GJdKK+sK6t q8I8r NyyvpQD3iX QyvFm LEvr46NH5t Su88G e2m8O5lurw SMM3K lO+k8gjolF 032k1 f0IP9YC9+W RcCV6 4aDAkEY8nV Lntgn emkDZYMKgM 8SsvH PLv1BcqJ0F 38W5t Yad3vWyfZv owx3E WwYnxk47jy XApuv +73MLrDyzZ KRM/9 2J4ZovM1ws kqplT XwO27HFdCT BMwR/ lcAo5IvPIa rmCdx Y9B1zdRcsL fvRH1 4JL1ypNxfl 4gjZN s2JvFNXW/Y v93AF WUeyq9WKvr uhsEF wtaXvNh08i 44n3g FOyXbtMV2u zkuKz b/Q2iy6DWH Yn/HG GAb75mc/OY xcVjI 1SVFPj1IGA 7xXiS XDzTXYB0vy tbSzz RU6qUB7VjE 52HnT oeDKwLKBrr /e3ZK Q8DQmUOVxm ThWQ3 XF24AibXWh H71TR g38HA/6/dg bBVHf 4hFVTL/Oze +/oXJ jugserzcML TJEOk 1sdg98N/Li 7CwVQ d4w+kQVTXG EBvW6 AZPGOuIJzE y0uaK Pft7EUh3KP p8BEJ /joqPH+8M5 OvPZC je3UKHkOnE 3ITe7 a3oNVlvRu8 xCY4A Et7f2EXzeU 30CTh t+fqjca2TN 2NE17 XSD8/SigJG eXc7o FTaviTH4sg zlI+m XE3e6tgK1W JbOvz S+9zM7FDn0 DJTcp GptbdlHOTT f2QQy BCnXcIo+lP 0aciB 26l/Hs3z+F gKY7a bYSllx3oD2 mbWlV /SrYsRu5Zo zxsvO 9DK7r4jG5+ WfX/l zbp0ZqpI8K TiiVe O/SXUJYyAZ lN1jA V7vb0f5Xia +xTNz hgYH39zE04 O8d0y wZvdGddaro O7uUX 6hZfQ1+Taqueria sP5RU 1/a0EH5Gcs KPCUu 81A1ssQ23g 3xhNg KGYoOU4dgC joBVT Fjpj7/M1aI iV+8R 2Gqeh7bzEF 5vLz0 lNU+WvOuw5 qcRTf xAl4r/e8AC PlpUl UGLIbX8f5M 6s23U 3z/1xB8P/O 0IKLq orgxgnJZeQ +rqal 1zSjfJH2zN 31zel /lWtk1BP0/ bY+yO 2/jbeLK6SW 1uR7Y UIHbqmUq7A XzTB/ FVeHt77Qr5 CEpUn SWzvT3zsOh rf/oW aooK3RRn/A jm04H CmlrO1Xj+q ccai9 mxXNam7G/W WkVxz vD3DtOffD9 H31SY ujS5MHJBqf gwiQL DXClO6ldA/ 7eIvC 7G8uE578gk Oitrm t+ygc7HzdH G3Qpl bmRzdHJlYW 0KZW5 yd5SzCrDoK DAgb2 PrCxc2Y2xf b3VwP RdrBt5TigP uc3Bh geWyC7ziQI B0cnV xQ1ejQbSyn 2UvQ1 MgMTMgMCBS Pj4vQ 29udGVudHN bNCAw IFIgMjYgMC BSIDU cKAKRGM9Jb XBlL1 RvI5NyCqOh b3VyY 8CjJKjmP76 sb3JT qMUkCTr3X1 RlZmF 4mCACT4ElN TMgMC XWWm9fIMRc Y1Nld HCqU0IKCeE vVGV4 cWBlVG3kE3 VCIC9 JbWFnZUMgL 0ltYW ieZY8rIc5v dDw8L 4agZn2pGLb gMCBS I9scmSVcBk AgMCB CR3ngP4XbU jEgMC LJD0rhAJNi IDAgU j4+I4wSVkt lY3Q8 EC62KhY7ZQ g2MiA yNyAwIFIva W0zND E1KnWeFiUf MCBSP j4+Ra7TGZV lbnQg MTEgMCBSL0 1lZGl oCe83VqCdC CA2MT IgNzkyXT4+ CmVuZ L8eurqjBgW wIG9i vam9AD2Zkh 91cDw 9B2VfIJQap nNwYX DqsfE5P8CC Wy9JQ 0NCYXNlZCA xNCAw WQOpPp1tQ0 VidHl vCF3Bs7NqD 0ZpbH Ionu9LgZB3 ZURlY 03qDU4VYGN yaXhb MSAwIDAgMS AwIDB sN6K7rQAwF E9iam YbwK5Sf3Bb VHlwZ MOsU2Vwf69 1cmNl jje5B7Nlx1 NTZXR bB7IIPg8UN Xh0L0 ljVLkeIt5I bWFnZ DRkNM6oH5F JXS9Y H7IhZZM9PP wvaW0 jCCR2WyCuI jUgMC BSPj4+Pi9M ZW5nd GggMjAvQkJ veFsw IDAgMTgyID I5XT4 +s4RqVCCfW nic08 /MNTYxtDAz UHDJB wAUPAMPCmV uZHN0 cmVhbQplbm RvYmo KMjYgMCBvY moKPD wvRmlsdGVy L0ZsY NCeXYQmh2V lL0xl acf8fODdEh Q4Pj5 yhGHiRC0Fq JzdWW 1v2zYQ/t5f QWDAY AOzzBdRIlv sQxJn w9u4RX2xC2 sUgyK nduM0OVehW Pn1O8 oWJduRGskt hi1GY zKQ0J2w8fD 3ZBC6 A5ZStMYJQw KlxZF LHYvbUgqB/ Kifzp hNhEPRIEHv XunHs 4cJYthBLrc tShgm WZ9RvxNPBH x+lzP Dq5NpDGJ3u y9GDq OetBizMSZo En3qj MY/ve5+RpM /XiF0 Ysz5s6UNc+ XfRQ/ mhvS1FeYde 2yLgb oqHeFXRPCe DtciI lv/xPeTdZx 2UY+6 ZpVyBQe5JI WC2ba d5Ub1rgRZa Kvhep 3GXpRzuUhW iyD1w fu9ojFBAkr NeYz2 y0RE9Fe7Xr m8/CV EbRG1Dr9HE zeVqj njx1L/rQsE OiryQ mUUD1S0nNf dFxs2 aRKrUAWzuS HbRTb izW8rtkiWI DIzH4 NhcHVa9+ax 5qsTY nFSDtQ+FX0 iuai2 FPIPz0Cxcr sEi4H bqTPv9vUZS O3j48 rtqo31Y0qE hOflh /hJLS9lf1A pR6l/ s5DJ0HFD75 R4dVm XZBydOY/Sx Qy9RH DPeQuBjE3T tH+zX k9o6KKQur9 UAVzL X+Sb2qyqNM xkfq7 zbyako1fei fsE9y mmuDqSoCYd qWQwv Dm7OBn/fl5 NhVP6 e1oeZjegXl SlgrF amOjI/T9W9 2u1Ms PhoJogVHUw 4zEAH IdiJjmrrbf HKLjW 8IgdYGL4nj mngZe q/nMJMNT6A YQco9 lqX4dgdcve rxnPB +nXII9OUKL 5TnXD DRlacb3Czp HR04o a13RYm4dy/ jpSRW dyK9AuIyYg NP4ST OGBoOgQFl4 alESC +PaIZXG9qr LtJM7 vPswD3+SVQ u9ima XCZ2l6FV/V Mh9sy 7G2J8ClGK2 F06Ky gpPyQehlWe Ohixz csUxoftktH snarL H3qoHuwDTo VZBKF XFuVwo1lPG tLNrW CUvlBwttRl NmFqH vQgrHVj5z8 C6UFx apelhr/ZEX ezNVd vKJHxs3zM7 Pe+bq tiNsftvNhz Zzewy s8PoEZk5ei kukdL fW2AY/1fwr JKBHF jJ9uFYSMyf LXd1t RXMBSrhluw LDbA8 0EWeTYoOVP /eWM2 Hpk8TWCvwI II8He Lb2qFAGxXT mYRd4 o4OCgPL0Ld 0qJYo FZwi6rD+oJ VGYjz NiIr597c+I 5rD0A /oTxRACjvk d/w5f VG5SlDimfg eERbI AYHc0vZ57k Bdi5M zdAoJrqIVM Cilcg zksT+bQMpk cdiVO bhPLAUGoRj hb3Ay QAJw0Q9GL7 hmwLz Wu7q2pnvBY eYdLS sL2cinW/f+ sgY0H fm7TelHESW sfajb 7WILck6LMC OZSkB e/ZxVIfx4m plrif lNzbOzq+Ms +2tXc wstYRVn9Z3 RIuVu JYmfNvbcVd ufVeQ 5aycDPctIq L6Z7m bKChNuUtk4 RAFHa 9mRlpp4097 9Ie2/ NA/pu9tgx5 XbhHe DSvbD5gSTX UrRc+ EC+vLawMBE 69Fuu hP4vCgfXXj HG2i7 yTHOaiym9X 6hbDr VbaKaghOlZ KKLBV 9Zi5PSnUY5 EsJk5 LOZd154XK2 av90w BpvlFNMuvk v2mJv XusvYkVOkt tfEzI r+aFnFHBmq 46R6u y6R8iiBikr zci/m zqAl72nmRC Yhsag I/TO68p+J0 qehuG xjgGZkXWOC Q9elw 2HS4BSzEVB yuIan hNE6ooCrz2 iprP/ /68BTEShPh 7YjUu /GtB5ZqfF0 ctayi ANS1oXwJUl 8KYs3 CaH7VepRLa N1ZE1 hYh9Yf8Y6t TnQLb 08RrYO9tBN ctjiV DuHHqYU55F O3ACc ID0jcACD4A RS+u7 hpQpvjltln sdX8l PklWQXxQaj VsPe9 wInudb2t26 UtPA9 yn20thRGu8 pzrZf Lk+Rq5U/JZ DbDGo Obgs9ofSdc WxcYK Nwj4GtxnFU MiWia X99g0CQzIS I32ts duyzTwMYnV LDPC1 hTF+/AiR5T eCFbr BNbgnWjmBF twS0J Eu1UlkM6QZ vXNi9 yiG7no431D 9Yl81 dL6fZXwLWd WpUOE i/qfT1IuhT Hw6by T02Msk7zGT J7EgT KyNc6aftaK 17YZF HscL9xyik1 oxObf ns3MQv/PZn F0y1O QeKwswe36E rFdSG NSHxxVHdNd 3dUkk fNQ+ekyiWF jEULe 2qZJCyU7QA rc5Ov U97PvVWgiL bFmMP 7w8DZMHJwh uwmiG RTWGpd6jE9 PyxIb XgplbmRzdH JlYW0 EAL5gy6FpE jEwID Tpk7MxVkx6 Pj4KZ T1zq9XbJjo gMCBv YmoKPDwvRG VzdHM gMjggMCBSP j4KZW 7pp3HxIqD8 IDAgb 9QjRhk4S9O bMTcg PDVDH1zUIo AzNiA 2MTAgbnVsb F0+Pg plbmRvYmoK MzAgM CBvYmoKPDw vRFsx NyAwIFIvWF laIDM 2IDYxMCBud WxsXT 4+FuAaTZ7m agozM YAvMD9gsco 8PC9E OhZ5WSZtLo 9YWVo gMzYgNjEwI G51bG oaCh8JIH3k b2JqC mUuXMHje0F qCjw8 S9InEUvyPO BSL1h YMaUbQuX2F TAgbn VsbF0+Pgpl bmRvY moKMzMgMCB vYmoK PDwvRFsxNy AwIFI uTEupASF1I DUyNC BudWxsXT4+ CmVuZ I2qpmiaLSV wIG9i igv5BQ4BYa E3IDA uYv8ZXBxmY zYgMT y8KG93wXou Pj4KZ X0hm3WeWoG 1IDAg v5CpErj3G4 RbMTc fZJEBB8xRA iAzNi AzMjkgbnVs bF0+P gplbmRvYmo KMzYg MCBvYmoKPD wvRFs xNyAwIFIvW FlaID T2KMJ8GCDx dWxsX T4+CmVuZG9 iagoz UiFrPC3ezv o8PC9 MRiP3FWHiG i9YWV ogMzYgMzQ2 IG51b HjoJz5AQV5 kb2Jq AwP5MJOpz4 JqCjw 0B7RjDImpU CBSL1 hZWiAzNiAz NTggb nVsbF0+Pgp lbmRv YmoKMzkgMC BvYmo KPDwvRFsxN yAwIF IvWFlaIDM2 IDYwN yBudWxsXT4 +CmVu KI1zgzb7BG AwIG9 qpln4EK5OI zIzID BqLn1KLYaf MzYgN fu6DS26zWu dPj4K YI9sf0QcTu QxIDA gk5EuSej7R 0RbMT ylVWOIR2iE WiAzN iAzNTggbnV sbF0+ PgplbmRvYm oKNDI gMCBvYmoKP DwvRF syMyAwIFIv WFlaI HM1UQLjQQP udWxs XT4+CmVuZG 9iago 8RgEtXD7ik go8PC 5EDvT1GUJu Ui9YW VogMzYgNTc 5IG51 xEsxHu4TQZ 5kb2J sRlN4VXHhi 2JqCj o8L6GqZmFy MCBSL 1hZWiAzNiA 1MTQg bnVsbF0+Pg plbmR vYmoKNDUgM CBvYm oKPDwvRFsx NyAwI FIvWFlaIDQ zIDI5 MSBudWxsXT 4+CmV jRJ1dgat9Y iAwIG 4xhin0RW3I WzE3I YRuBx1UARo gMzYg WwH6SE67nP xdPj4 CKB2ls5PpU jQ3ID Drg0HlKhx8 L0RbM BegVOUXL0h ZWiAz OlX4TSRomo VsbF0 +PgplbmRvY moKND ggMCBvYmoK PDwvR FsxNyAwIFI vWFla YGEvDQH5CB BudWx sXT4+CmVuZ G9iag n4GRWzCT6g ago8P D6NGbL3KCR gUi9Y WVogMzYgMz U4IG5 5lPldNl2OI W5kb2 JqCjUwIDAg b2JqC ku4Z9MdEHi gMCBS R7mCYtDoXl AzMjk gbnVsbF0+P gplbm RvYmoKNTEg MCBvY moKPDwvRFs xNyAw IFIvWFlaID M2IDM 1OCBudWxsX T4+Cm QaIE4midn6 MiAwI Y3cghv9QR3 EWzE3 ETKyHi5DWE ogMzY oIrJ0WZ03m GxdPj 8TOS2vo1Tc CjUzI VVat3LuMez 8L0Rb MTcgMCBSL1 hZWiA nEnA9NRCxm nVsbF 0+PgplbmRv YmoKN TQgMCBvYmo KPDwv RFsxNyAwIF IvWFl dTTK3TCQ1B CBudW xsXT4+CmVu ZG9ia uj5VQWiLU6 iago8 OO8EAyA6IY AgUi9 YWVogMzYgN TEwIG 48rLigEw3R ZW5kb 0YqBkB4JSL gb2Jq Wed6P6ZlIU cgMCB BT9rGNhObJ iA2MT AgbnVsbF0+ Pgplb mRvYmoKNTc gMCBv YmoKPDwvRF syMyA wIFIvWFlaI DM2ID UzNSBudWxs XT4+C dJfMA2yxor 1OCAw KU7itax7GT 9EWzE 9SODqMq0VS VogMz IxKlBnOG92 bGxdP s4IRK0ts1G qCjU5 DCTjn2ZyYx w8L0R bMTcgMCBSL 1hZWi T2GjM2XfFr bnVsb F0+PgplbmR vYmoK NjAgMCBvYm oKPDw vRFsxNyAwI FIvWF lcOHL8FRY1 NiBud WxsXT4+CmV uZG9i bgs2XPGxSE 9iago 6FY5IXfQ1B DAgUi 9YWVogMzYg Mzg1I V40lSkcTe5 KZW5k e5WeKhJyAE Agb2J zFeb0P4AzS TcgMC GQA7xEEvIa NiAzN TggbnVsbF0 +Pgpl bmRvYmoKNj MgMCB vYmoKPDwvR FsyMy AwIFIvWFla IDM2I DUxNCBudWx sXT4+ JhFwOS7uoz o2NCA rDB9deki5B C9EWz O1HJYlQj5C WVogM aDfGLQ1MJ2 1bGxd Kx7CKZ1li5 JqCjY 2ZTTvx2LsO jw8L0 RbMjMgMCBS L1hZW gBhRwW6OlP gbnVs bF0+Pgplbm RvYmo KNjYgMCBvY moKPD wvRFsxNyAw IFIvW CugXZQ3RGJ yNCBu dWxsXT4+Cm VuZG9 rtjn4YdDsB G9iag p9IV5VSgF3 IDAgU y4FTUybBcS gNTUy DK13sHkcFk 4KZW5 ud8ZeYaQ2H DAgb2 FnNxo2L9Pk MjMgM NSOJ6kXIiJ zNiA1 MjUgbnVsbF 0+Pgp lbmRvYmoKN jkgMC BvYmoKPDwv RFsyM yAwIFIvWFl aIDM2 IDUzNSBudW xsXT4 +WpEvID5rn go3MC YmSX0iqtr1 PC9EW pP2LJTpNk7 YWVog MzYgNjEwIG 51bGx eGx9JXG2av 2JqCj diWPInb3Il Cjw8L 0RbMTcgMCB SL1hZ LhPlQbJ9SD ggbnV sbF0+Pgplb mRvYm oKNzIgMCBv YmoKP DwvRFsxNyA wIFIv XMvzYUB9YR YxMCB udWxsXT4+C mVuZG 4ectj9QkDh IG9ia ks3FP4MDeO 3IDAg Ec5VCKssFn YgMzU 3TO67zCavB j4KZW 4hr7HmGol7 IDAgb 1HiUof4N4G bMTcg JIUTD2vSFb AzNiA zNTggbnVsb F0+Pg plbmRvYmoK NzUgM CBvYmoKPDw vRFsx NyAwIFIvWF laIDM 2IDUxMCBud WxsXT 4+RhRoXP5v ago3N vRkVG7odgv 8PC9E WzIzIDAgUi 9YWVo gMzYgNjgwI G51bG duCn7XBW1h b2JqC ug2GYVdo8W qCjw8 W8FwTAdrGW BSL1h LGtA0BzB6C DEgbn VsbF0+Pgpl bmRvY moKNzggMCB vYmoK PDwvRFsyMy AwIFI xRMzfKKU4L DUzNS BudWxsXT4+ CmVuZ Y2gygv4PCG wIG9i dlt6SS0DYa IzIDA zEo8HLGlvN zYgNT O6YT86pWaw Pj4KZ B3oc5MbTrt wIDAg e4LhUtc2E2 RbMTc lAZRVZ9sPG iAzNi G5WSHplnNb bF0+P gplbmRvYmo KODEg MCBvYmoKPD wvRFs xNyAwIFIvW FlaID Z4AOAeDHJu dWxsX T4+CmVuZG9 iago4 GqYnCV2cpj o8PC9 HZtL0AVSrV i9YWV ogMzYgNTEw IG51b OgdXm9AJB4 kb2Jq CjgzIDAgb2 JqCjw 4M1KqICajK CBSL1 hZWiAzNiA2 MTAgb nVsbF0+Pgp lbmRv YmoKODQgMC BvYmo KPDwvRFsxN yAwIF IvWFlaIDM2 IDIyN CBudWxsXT4 +CmVu BN5bido7YF AwIG9 kvps1LN9RH zE3ID BsEv8NTFgt MzYgN UOoQL36vGb dPj4K BT5kz4DbAe g2IDA iy0BeUpm7G 0RbMT rfHYNRC6gS WiAzN iAzNDYgbnV sbF0+ PgplbmRvYm oKODc gMCBvYmoKP DwvRF sxNyAwIFIv WFlaI UQ1LFQ2XQG udWxs XT4+CmVuZG 9iago hNCKsCL4ah go8PC 8IVR1ax4bu XzMwZ VY9IDQ3VBT iY2Qt JKSpQd2yFt Q3LWV zNvAbLtT8W zNjZC kgMjkgMCBS KF81N lViZIF8Bc2 xMTdm LTRlYWUtYT FhMS0 xOmu2LFtxC zZmZj EpIDMwIDAg UihfN yJ2FIM9RqO tMzFj LL97PAQqVG hlMGM zQIP4Z1ExT mE5MT V7CLJnKKYz IFIoX eW3QCq5XJV lLTZh OTYtNDVhOC 05YzB sHTyyTbV4A jM5ZT UyMikgMzIg MCBSK E98VACmIKW 1Yi1k NDViLTRiOG EtOTQ dHR5oWGK4F zVmND dkZjEpIDMz IDAgU hrxJtF0JNK wYzIt XTUuHj65Tb A4LWI 4OTAtNWJmZ GQxYj liYTEzKSAz NCAwI FIoXzcxOGQ xZjQy JVA2Q6HiMJ FjNy1 oBTN3UIR2I GM0MD F9TTFiAzxy MzUgM QDBJA56LQU jMmNj Vu58ZZZuIY RiMDk tYwG3TJ9lU TUyNG T4N7G8XnKi IDM2I DAgUihfMWN lNDkw YzgtMjZkNy 00MjV tHRf2EJKoZ WFlZW W5ZNs0OVKn KSAzN yAwIFIoXzF kYTI2 YmUzLTBmMz ktNDk 7Lh48PQW2G TQ2OD lhVmv2CFHs NSkgM zggMCBSKF8 xNTk1 Y9GuKk2jSe RkLTQ 3NDEtYWRhY S0yNz KtUbs4A5F0 Y2YpI PX1MHCcDia fNjU5 I5K9KrZqLD MzMS0 0NDYyLTlmM WUtMT ZlMTdmYjYw ODI3K ML3KNDqVMO oXzc3 YWEzNDMwLW UyZDI vEJNtRt3cT 2Y4LT djZThkYmUz MWRhM ykgNDEgMCB SKF8z MjdCNjkxRS 1BNTU 4LTQyRDctQ jlFNS 1JHSKvVqT5 NDA2M DIpIDQyIDA gUihf RJx4IXT0AU ItNjk zUU41FpVfC ThjZD EtYTVmYWMx OWZhN 2UyEYE0ZjF wIFIo AxK3GJIuYH gzLTJ kMjMtNDczM i1hOT r0SVLrRFI4 ODMwY tY6IIqsDFJ gMCBS CD2qELSgTT gwYi0 4YWFkLTRkO WUtYj M8WN51YqLg OTJiN tI1GQOgETZ 1IDAg UihfZGNmYz MyNjI iNrYrNJ38U 2YyLW Q7WWLfKxE6 N2ZmO TEyYzgyKSA 0NiAw IFIoXzVjYz kwNWV oYWK3HlyvH GI2MC 52MRWwOLF2 NjNlN GNmMTAwNik gNDcg JUYEZV5oAn FhMDF vIS9jNQI2G TQwM2 KmOtB2Dv9i NWM0M TcxYzAyMGI pIDQ4 IDAgUihfZm FhZTk wMWQtMzQxN y00ND MxLTgyODQt MjM2M zZmOWJkYmY 5KSA0 OSAwIFIoX2 NkYTU 0C8XqGGA2K TAtNG CyFJ90DVW1 LTkzM RI6HQL6OYJ jNykg NTAgMCBSKF 9kNzI 9SJyeZu99S TM2LT QzYjctOWUx My0yO Dx1CEFhBvZ zZGUp IDUxIDAgUi hfOWI 7ZQOnO3ScU Tg3Zi 93CJS2TZJh ODgtN qt3VNW5Quc lMmUz VVM2VsOlBI IoXzk gLQX8KoErV TgzMj LsBMLbWr6h NWYwL WYyMmUwMzZ hY2Q4 MSkgNTMgMC BSKF8 1GsF4QCW7U C03MW B4VKUpBJKs YjdkN Y20BGZkAeE zZmYx LbQgZGU0KU AgUih nNwetYHH1C DgtND vbGZ27Q7A3 LTlmM GMtYzgxZDQ 0MjY1 OUc5EIY4QE AwIFI oXzQzMWYyM jA5LW W6IhwjSPdo My04N DFmLTIzYzA 2ZGY3 MzljOSkgNT YgMCB ZJM9VQmRlF TQxMy 01ODgzLTRD MDMtO OH0FY7YAQe 1MkM3 RTAxMjQpID U3IDA gUihfMGFjO DI0NW EyRJT3ZA89 ZjVkL WJlYmEtYWN jNmQy QBE6NxUfAZ A1OCA zULIzQ2SeP 2U0Ym I0JWZvF6Hc NDI3Z G52ONHwYFf lMmM3 KDxoQOE6Lz kgNTk gBHCJWI7cO zFiMG P8YG0eFvHk LTQ4Y zgtYmViNy0 xZmM5 BjCpFOV0Vh YpIDY wIDAgUihfN mNhYm EwMDEtMjUz Yi00M WMyLWFlOWI tOGEw VAW8FSK7RE RiKSA 2MSAwIFIoX 2FhMT Y9LyCxWDJn NDQtN OKmME27EGS jLWQx DdAoFqI1CM k2ZCk gNjIgMCBSK F82Nj LvGTCfLy8s MzExL TQwZTYtODU zMS03 OGVlNDViNz FkMTg pIDYzIDAgU ihfYj AsIBF3PFLg MDJkY x62ZACxJAG 0ZTgt U1FcSOLxBZ dlMmN eUGW6PNBjB FIoXz u5UBDiKoJ9 LTQ3Z GQtNDQwZi1 iZjEw KFOiAlR3At dhZTQ yMCkgNjUgM CBSKF 6tCRQyQlQ9 Yy0yM mNmLTRmODM tODAx Gk7bTuMwGs Q2Njd qNOeiUGX8U DAgUi fcDOW1ZRA7 YTUtM AK7Vs51RxF 0LWJm ZjctNWMxYW NhODV wLwIdSJK8O yAwIF UcB5RdIlbz MjdkL TliMTYtNGJ hNC05 MmIyLTVkZD E0NmJ mMzgyYSkgN jggMC SWFR4kRkVq ODRlZ S6vFxHeMKX zNGEt KII1Fy3aTO E1OWZ jMGVmYmYpI DY5ID AgUihfNWRj NDYwZ YXwUqR3QG4 0YTE0 LTgwOWUtYj k4ZjM 7YWy9D8JzU SA3MC AwIFIoTUtN Ry0gR UpgU6cogqj lIFN1 aN9zqrdeAD cxIDA gUihfNzhjN GE0Yj WqCrIvKV12 NTQ3L ThhZGYtOWU wYTI5 HXu5SOF8QL A3MiA jCXPdA9H9X zNhYT NkFMX6R0Kx NDhlZ I36XqNmAFo 5YzA4 ZjNkNzQzYy kgNzM lNOLIYW08U Tk2ZW S5Pd28FVX0 LTQzN WMtOGUxMC0 xMjQ1 EUI1XWLuHN IpIDc 0IDAgUihfY TQ3Zj YxMDctODcw Ny00N YDqXOt2MBc tZDFh ROWxKwK8YE k5KSA 3NSAwIFIoX 2UzZm JhNzhhLWRl MzMtN SCiWr5eVtx hLWQw JGV4VoB5FZ JiNCk gNzYgMCBSK F81Nz Q2XjZaMm08 ODk4L EO5RKIpGyi 5My03 XAIcK4A0We U2NTc aXMo6JCOaE ihfM2 FhOTFjNGQt YzllZ T43NyOoRMM 3NjUt NzIyNGZlOD A1ZGE kBHC2LWEjC FIoXz r1QNI3WHSv LTk5Q kItNDVDNS0 4MTk4 DPdNXiG6DY IwOTU xNSkgNzkgM CBSKF 99L3FpXEDy My1mM 9B7MBFzQGU tODM3 Dc6rVwO8Ze U2MWU qS6QkABvzO DAgUi hfYzExZjk0 YmYtM yevNt20HJM jLWFi QSAlP1I8OF Q1ZjQ 8MSnzYIT5M SAwIF UfX2WqL8Mz OWMyL QU4ZgTcIQP jYS04 YzdhLWRiMm M3YWV iMjgxMSkgO DIgMC AZYV74AGY5 NzA3O O1zQmbwGZC 0ZmQt SOp9UB0eEK E3MWQ 4PuT9PSKbT DgzID AgUihfYjc0 MTk3Z TctYmUxNy0 0ZWYy LWFmZWItMG ZjZDM 0ZjRlNTFjK SA4NC CaGTJoN8K5 MzZkY mIzLWNkOWI tNDhl FK61ZKohWJ ZkOWY 5NTdiNmNkM SkgOD PeSARJWR9f NjM2N UWeME73MMS 4LTRm VwRqPGM7Jd 1kNTc yNWIyMzYzN TkpID k3CQSqZxzq ZTI0M ZW9R4XoRSI zNC00 OTdjLWIzZm QtYTI gEPMuJ3RhU jcxKS M1CkMyQXFc Pj4KZ J7bu8TmWxS yIDAg i9VfUqf5R0 Rlc3Q rEYgFWa9iM GlzY2 hhcmdlIFN1 bW1hc opdB6WnuTf lPGZl PlRuXOW1HJ A2OTA wNzMwMDYzM DA2OD AwNjEwMDcy MDA2N zAwNjUwMDI wMDA1 MzAwNzUwMD ZkMDA 2ZDAwNjEwM DcyMD Z2MA7tJMSt ZW50I DggMCBSPj4 KZW5k f2FvQfq5VS Agb2J iEva0C39rU ERhdG UoRDoyMDIw MDQyM jEwMzUxMy0 wNCcw KJypP2DjVB F0aW9 mPPM0WOyMJ jIwMj AwNDIyMTAz NTEzK p54PeFdYva vUHJv ZHVjZXIoSW JleCB NNEBqA0FrQ XRvci J1HfyeCD6p NS84N QT5GMyEKKY BXVAv RtcmhP7rpN ZpZWQ gdXNpbmcga VRleH GtSw8yRutp YnkgM VQzWFQpPj4 KZW5k j9EeRqnkSU YKMCA 4OQowMDAwM DAwMD TtLCL6DIO4 IGYgC jAwMDAwMDA wMTUg MDAwMDAgbi AKMDA wMDAwMDEwM yAwMD AwMCBuIAow MDAwM JVuEOa1EOM wMDAw NV3bFgJjVL AwMDA zMTQgMDAwM DAgbi AKMDAwMDAw MDM5M CAwMDAwMCB uIAow MDAwMDAwNT I2IDA mSBPxZG1jF jAwMD AwMTkzOTAg MDAwM DAgbiAKMDA wMDAw MDcwNCAwMD AwMCB uIAowMDAwM DAwNj QwIDAwMDAw IG4gC jAwMDAwMTk zNjkg MDAwMDAgbi AKMDA dIVZnMDT1Z SAwMD AwMCBuIAow MDAwM TD0WEN2IXK wMDAw NX2dWeIcDE AwMDA 3NTcgMDAwM DAgbi AKMDAwMDAw MDc5M iAwMDAwMCB uIAow MDAwMDAzND YxIDA oCYFeUG2nY jAwMD TuUCG7DUIy MDAwM DAgbiAKMDA wMDAw Mox8LtCgXG AwMCB uIAowMDAwM DA4Nj UxIDAwMDAw IG4gC jAwMDAwMTI zMzIg MDAwMDAgbi AKMDA wMDAxMjQzN iAwMD AwMCBuIAow MDAwM YRdPjA6OAU wMDAw MP8gUaHnPW AwMDg zNjIgMDAwM DAgbi AKMDAwMDAx NzAyN iAwMDAwMCB uIAow MDAwMDEyNT M1IDA wUZQzRD3sF jAwMD RxPBU2RWec MDAwM DAgbiAKMDA wMDAx EfQ1ZtNmVT AwMCB uIAowMDAwM DE3Mz YzIDAwMDAw IG4gC jAwMDAwMjI xOTYg MDAwMDAgbi AKMDA wMDAxOTQyM yAwMD AwMCBuIAow MDAwM RU1BCxmZOE wMDAw TA0lUxMeKZ AwMTk 1MTcgMDAwM DAgbi AKMDAwMDAx OTU2N CAwMDAwMCB uIAow VQUrTTA8Vs ExIDA pWVMsXS4lC jAwMD CvTEh4VQfk MDAwM DAgbiAKMDA wMDAx OTcwNSAwMD AwMCB uIAowMDAwM DE5Nz UyIDAwMDAw IG4gC jAwMDAwMTk 3OTkg MDAwMDAgbi AKMDA hWEPhHAj6C iAwMD AwMCBuIAow MDAwM IO0BEdwECR wMDAw TF3mIkSaEO AwMTk 5NDAgMDAwM DAgbi AKMDAwMDAx OTk4N yAwMDAwMCB uIAow MDAwMDIwMD M0IDA pKDRdLY2lL jAwMD AwMjAwODEg MDAwM DAgbiAKMDA wMDAy MDEyOCAwMD AwMCB uIAowMDAwM DIwMT a3CMQvKTRw IG4gC jAwMDAwMjA yMjIg MDAwMDAgbi AKMDA oBTSdQDJ5I SAwMD AwMCBuIAow MDAwM MVeXjK6NEO wMDAw FM2cIiSfJU AwMjA zNjMgMDAwM DAgbi AKMDAwMDAy MDQxM CAwMDAwMCB uIAow MDAwMDIwND U3IDA lCZIdQT9yL jAwMD TjNpL3NYDy MDAwM DAgbiAKMDA wMDAy DGC7CQTdAD AwMCB uIAowMDAwM DIwNT m9YREtOTDu IG4gC jAwMDAwMjA 2NDUg MDAwMDAgbi AKMDA jCVXsVUN3V iAwMD AwMCBuIAow MDAwM FSfFuN9ZCF wMDAw LX7tPmQcIR AwMjA 3ODYgMDAwM DAgbi AKMDAwMDAy MDgzM yAwMDAwMCB uIAow MDAwMDIwOD gwIDA fGGZjVC8fQ jAwMD MpRoM6Yyom MDAwM DAgbiAKMDA wMDAy SXr1MNXmDB AwMCB uIAowMDAwM DIxMD IxIDAwMDAw IG4gC jAwMDAwMjE wNjgg MDAwMDAgbi AKMDA wMDAyMTExN SAwMD AwMCBuIAow MDAwM DIxMTYyIDA wMDAw TN5uGlNfSM AwMjE yMDkgMDAwM DAgbi AKMDAwMDAy MTI1N iAwMDAwMCB uIAow MDAwMDIxMz AzIDA aBVFwFM7cI jAwMD AwMjEzNTAg MDAwM DAgbiAKMDA wMDAy HWL0VbJnUO AwMCB uIAowMDAwM DIxND S9NXNgTXSv IG4gC jAwMDAwMjE 0OTEg MDAwMDAgbi AKMDA wMDAyMTUzO CAwMD AwMCBuIAow MDAwM OSvBMx4FXF wMDAw NU8jJtZpRD AwMjE 2MzIgMDAwM DAgbi AKMDAwMDAy MTY3O SAwMDAwMCB uIAow MDAwMDIxNz I2IDA lBMPoPW7gO jAwMD JeBtD1QpQp MDAwM DAgbiAKMDA wMDAy MTgyMCAwMD AwMCB uIAowMDAwM DIxOD J1NWCiPZAr IG4gC jAwMDAwMjE 5MTQg MDAwMDAgbi AKMDA jKBCyJEt4S SAwMD AwMCBuIAow MDAwM FJbHEX1HVY wMDAw PV0lLoNyAW AwMjI wNTUgMDAwM DAgbi AKMDAwMDAy MjEwM iAwMDAwMCB uIAow MDAwMDIyMT Q5IDA tXHAjQW8cC jAwMD AwMjUwNjkg MDAwM DAgbiAKdHJ haWxl uog2CC3Cqn ZvIDg 1QHAoZu9UZ CBbPD U1VQAqRTLy NzU3N SKjNtEcE5S 3MTA2 YjBkMzhjYj cyPjx kZmQwOWYyZ jZiNz YxYjQwOTA1 NTdjY 2VhNWYyMzM wND5d Y3Sol0YbAz AwIFI iY1e3JGG7Y T4+Cn K7NXC9bOTq ZgoyN UB4BXepKKV PRgo= ID Date Data Source [id number] 08/12/2019 12:12:00 PM EDT No [facility] Name Value Range Interpretation Code Description Data Supporting Source(s) Document(s ) Physician No UAQAHu2hRe QKJeL [facility] - mb3RBLREkV G9iag Coos h4BP3EuLQ9 [facility] 9J3lUVlB7L 5cGUv Center Dg4akD2BJW NlRm9 kfS5EJMk4Y XRpY2 HmWJ1wm7Jy bmcvV 5prWF3nbLI uY29k mW7dDy6MRW 5kb2J qCjIgMCBvY moKPD wvRmlsdGVy L0ZsY TDsSLHjg5M lL0xl exs2iTMbJW 4+c3R yZWFtCnicK +QCAA GuBTkDRW3a c3RyZ WFtCmVuZG9 iagoz TBDpp7EiQh w8L0Z ajTGqap3Px GF0ZU PnM54eYQ8W ZW5nd GggNjk+PnN 0cmVh bFd6zUUH5S rk0o/ INFAwNFAIS eNyCu EyVDAAQkMF I1MLP XNTBQtDPQs jhZBc Ws8NrYXUbS h+Rad tTpsYj2mGY yAXAL PsEm8BKE4u c3RyZ WFtCmVuZG9 iago0 ZANbm9KdCn w8L1B aR8CTz3CuC 1VzZU 5vbmUvTmFt ZXMgN SAwIFIvVHl wZS9D UYPsjA5cL9 91dGx pbmVzIDYgM CBSL1 NwL2RzVXoq MCBSL 1ZpZXdlclB yZWZl daKoG7IsZV ggMCB NEh2SIG3kj 2JqCj cgMCBvYmoK PDwvS 7sor3y4UKI gUl0v XAgdLS6GHQ dlcy9 Pr0EcjLKgO 0lUWF VaFp9qJzle Pj4KZ Y2qy1DwDnY gMCBv YmoKPDwvQ2 91bnQ mKA3PxFIkw CAxMC AwIFIvTGFz dCAxM CAwIFI+Pgp lbmRv YmoKMTEgMC BvYmo SQo8JV1FJE XNlZC AxMiAwIFJd CmVuZ C3jtvslDhB wIG9i tqz0ET9OjK x0ZXI vRmxhdGVEZ WNvZG QoSIEfC0Js IDI1O TYvTiAzPj5 zdHJl CV2NeQgnhd dUU9k Wh8+9N71Qk hCKlN RlxTTWIB74 SJEuK jEJEErAkAA iNkRU cERRkaYIMi jggKN DkbEiioUBU bHrBB gL5LQeYOsQ SWStG d+8ee/Nm98 f935r i07N3Piseg a6AJD 8gwXCTFgJg AyhWB Cl59XGrZxh YAcBD WOEA1sS6ZL zs0IW +MEIsEG32B xsmRP 2I294BfU3+ yrTP4 zBAP+flLlZ IjEAU JiM5/L42Vw ZF8k4 PVecJbdPyZ i2NE3 OMErOIlmCM laTc/ VxK3x9tHVY OfMyh UgUo0JW7iU w5Nwn 3220Dq5UjY AZF+c I+LkyviZjg 3RJhk DGb+SxGXxO NgAok ijp6iYKJVy tY5Io YxTi97cZ3B jJX/D HW2cQgjDZD 8XOzF ouEiSniBkm XFOGj ZMTi+HPz03 ni8XM IX39iOYtCq iZGVk f4VQPKh/8W RR5bR myIjvYODk4 MG0tb c6g7X7p/Ju S93aW XoR/7hlEH/ jD9ld +oS0ZiXSsz dn6h2 3nFYJk9hJD u/2Hz WAvAIqyvnU OfXEe unxeUsTiLG crq9z cFBkZp5vvR +jv+p 6Ue6DpqH0G vt3v5 TZ584J1lyT xQ143 jyF1meSPhJ 7icPk M5p+H+B8H/ nUeFh V5AJ1RP9RJ RMumT CBMlrVbyBO IBZlC keM1c6y2H0 P+pNm 5lona+BHQl lgCpS VrYG9dZBbp ESAJe 3Sj8D18C5F [place]/nN b9FTuX72c4 L+fVe 6YZ9CEiM/j mNHRD S9NcZJ7Yx6 WgI0I ABFQAPqQBv oAxPA BLbAEbgAD+ ADAkE oiARxYDHgg hSQAU QgFxSAtaAY lIKtY CeoBnWgETS DNnAY aWJe7WC9Xn 6By2A Q7OBURZ8sj CnwCs xAEISFyBAV Uod0I EPIHLKFWJA b5AMF QxFQHJQIJU NCSAI VQOugUqgcq obqoW boW+godBq6 AA1Dt 4QYyWS9CUf HIzAJ psFasBFsBb NgTzg IjoQXwcnwM jgfLo O2sBBzD8cS 7oRPw 9rwEYfMC4Y nEYAQ ETqiizARFs JGQpF 4JAkRIauQE qQCaU NzkO1aZ7wJ SJGny FsUBkVFMVB MlAvK DzMQ3xISjZ ahNqO qUQdQnag+1 FXUKG nE1ARTGedn zdHO6 PU5YMdOnUf uRleg l5Xo7ATwJr Q4+hU Yx4RygBDBM H9MHC YVswKzGbMb 0445h RnGjGGmsVi sOtYc 64oNxXKwYm wxtgp 8QYuDvbS1a n2DI+ L7yXT1N0g7 Togrx FXgWnAncFd wE7gZ vBLeEO+MD8 Xz8Mv xZfhGfA9+C D+Suzy QvT9zZyaII QiphL iDE3ZQ9K0t LeEEk EvWITsRwoo C4hlh TTXS9Aphme iVRSG YkNimBJCFt Ie0nn DPzGs3jh4y GZA9y FVjB7rPjIk 8h3ye /UaAqWCoEK PAUVi vUKHQqXFF4 pohXN CB2TSsceY1 YoXhE cUjxqRJeyU iJrcR PMrWNv9GJ5 YbStD HG6NM8SLbX ebNyi /TU4FfOJOA I4kPh UYoo+yhnKG NUhKp IXTW94HARQ upZ6j gNQzOmBdBS aaW0b 2iDtCkVioq dSrRK nkqNynEVKR 2hG9E D7Gl7Erdo+ nX6O1 NaEG0Erifq 1TbVK 4di2cbycxv x1UrU 2gJS2D2lI7 R91NP An4j5uc/TQ GmYaY Ho0Tqm0Puz 8XQOb M8BIY3stwa H59zW xVIMVOV3T8 ju0xz DjNgJ9qPVd tKq0j nq3ZPbsv0s naq9Q /nN3aFELow NR6Cz Q+ekzmOGCs OTkc6 eQLGqejF4l f11Jb y5lqK1R7aF elF6h Dhajrr8Wus s/ST9 Hfq9+lMGOg YhBgU GrWo1FxYQA MMUw1 2G/YavjYyN Yow2G HUZPTJWMw4 wzjdu Qb5pVrZiA2 lm0mB yzRRjyjJNM 91tet sTQhJ7GlVq MRsyh 99ziIVni89 HLdAW ThZCiwaLG0 wS05O Ag2wcbdsMD YMtCy 02DS0ZDFjQ W22z6 jw9aG7koT9 daH3H wdQJyTEk84 Pzq62 HIrc5cdjlS PJc37 pj52zZaO3j bse32 0C9646xJ6H /wb7X /eNBp1VDid 1h0tH XHqUc0gVYv 8YKY2 4diQlEB6k5 rXY65 dRK4sQS7Vg Y+RcX flesC8sFr1 nG8/j aJsxRoox9q lzrXa RzGHtNk69w Unddd 457g/sDD30 PnkeT p0PcmLat85 HPZ17 WXiKvDq/Xb Gf2Sv Qcn4Ofd5yG e9CH4 hPlU+1z31f PN9m3 4OgNm56lty 8pf7R /kP82/xsBW gHcgO aAqUDHwJWB fUGko XKQ5ULRhw7 CRcE9 XPOWFSg3hM vzDec S52kSamIW9 O2h98 CIa2eVhR+O CQ8Lr wl/GGETURD Rv4C6 YMmClgWvIr 0iyyL iPSrNMrS7p xWjE6 Kbo1/HeMeU x0hjr XUFsq5Z96i TxHXH Y+Uy65xfas f6LNy 3dPwSRgC54 foi40 N7xl4v0qdw vvj4E sUlnCVHEtG JMYkt zd28zZzQeq TSgKW 0M6r9yS6e4 hOeB2 0Ca2Qeuh/n TyS5J hHyQFe2Oe6 ePJni rtLM6sMYNq QLnqf 2e4rljf3QM duf9i c5Va67X4iY mHFUS BGmCfsytTP zMoez yGHKm5KIaC ftXDY bNyT6PDTDr 7K7xT ILh6IUySQy XjKa4 5ZTk/MmNzr 3SJ5y poWhDThQ5u 3LJ/J 9879egVrBX dFboF ybmqB9nppC +lXQq qWrelfrry5 aPb7G g45VkVF7lZ t/KLQ aYR77dT2tI U+RVt AhhgN1ccmu ixWKR eA9HxrsfLl I2ijY AWlu1saiBS 9LeCU GU15IO6plo +Zuvv zKoFtZO88q krRls OymlQ7AfRs h1uvb 3LcdKFcuzy 8f2x6 bnVIPA9cNy pc7l+ v4PSHKYqkI sEuyS 1oZXNldZVC 1tep9 wRi4PI6EWJ utZu2 w9js3elkt1 PHY01 qlLJvy124w YO/Ne r/6zgajhop 9mH05 +v64Mhr5n7 36url Ft9b50tC+4 X7pgY yBfu7Uvv0l mi1lr XCrpHXyYML By994 a2Tmgvuva3 e3lx4 ChySHHn+b+ O31w0 GHe4+wjrR9 Z/hdb Sl7z8XD1dn eOdWV 0iXtjusePh p4tLf Nnfxkl5yb8 x/TPV KkMLQ34MbX iaITn 07mn5w+lXX q6enk 44T6F9tppG k9c60 vvG/wbNDZ8 +d8z5 3p9+w/ed71 /LELz nsAThMu5Ol kcKlz uN0h0np5Gk oGHQY 4afoIdp92V e4Znj f76uf0bbSA va+eu iMd2jSV/JH h61HX x56OmAX1qe v56Fb 7izv1o13P8 FlzF3 315R4DeRk7 mvcbf yC2vQ4bWX5 +6j06 8FADjrnp8Q EnP2X /9L577QD6Y cWEzk AdK1fRtuX9 Jy8/X vh4/EnWk5m nxT8r /7t8nOJKs4 94/DI wFTs1/lz0/ NOvm1 +ov9j/0u5l 73TY9 F2YDm0jCnh 8UX9z 4C3rbf+7mH cTM7n utc5oG1d+6 PkY9P Wdw1fIq89F 94Tz+ wplbmRzdHJ lYW0K KU3qa4JaEq EzIDA wk6YyEqb0S 0NvbG 3fT9XaB6Fc RGV2a FHiY0DxmJ5 IZWln aHQgMjkvU3 VidHl uVR1XiPSlL S9GaW s7TQLhHcoe dGVEZ WNvZGUvVHl wZS9Y B4QlICX8T6 dpZHR cPJE3Su7Vl XRzUG PwC79spO3t ZW50I AjyIJNiG6H oIDI4 Nr5ixHGkMN 0KeJz twTEBAAAAw qD+qW cMU5SKGVAT AB4G+ 2OKjwplbmR zdHJl DR4CDE1nv9 JqCjE 0IDKaz9QeM jw8L0 AjcG4mS2Yx Y2VbL 9fSJ2Wwa1I kIDEy OIQlMv8hWX VpZ2h 2RPH3I8C1X nR5cG WmRI2wD7Ej Rmlsd FVqW4UrKFF lRGVj l0IzQ7VkW5 9kZVB lib3bBBnlU 29sdW 1ucyAxODIv Q29sb 3JzIDMvUHJ lZGlj fU9oXJV8J8 JpdHN KIBTWr39rx 25lbn QgOD4+L1R5 cGUvW C1nyqHybM0 XaWR0 aCAxODIvU0 1hc2s gMTMgMCBSL 0JpdH BSRGXMe35f b25lb wEoWC5XftI lcnBv iTL5MRL6lv VlL0x cncz8yXI5L DQ1Pj 1qqMKrLD5A eNrtm wlUVEfWx2/ iJHMm 0bhGWRqatW VzwSW OE+PESEKMi iua0T gaYjQRjQIa AiKgQ NN00/vCqoC ANoLs z0QWldeFDp FlURF QUUFAQJRFY Kq6ka GhjcsMF17D d97R4 +t671Xd+tW 9/3vr UO8nxZHLZ2 r5x2e aB3d1HCLWz eTElf KHr65/12/X xaRXh YAYxVyC7Di 4qOf/ glDl7kD6WA M/NQv 09Kq1OjXK1 zc9NW mZV0/Ps75G kRfLF Yd3UXxWdPj Eoj8X wN9YYbkVpW z+1fe dJ7wBIpzxR ChRQI sPKNnjjl1d uL3+1 9kKn2SqAaN pJZWN Y96/hqbHqw +Gw6S pKB21eucSZ ZbxM0 394EMHUHTZ 6hCDy R7dKzrzuOC Lc0Cd Ggk7eZiD8F K8rCv 3BjZqbHmam le12v TnzLYSbg3l 7uRl3 hGppTdrGl5 1/+qb Wr/NZ2OlOL D0AkN C4IYS0tBj2 ARQp4 MuQIF7GZJ7 5ojYe afADFeYQia fzJT4 aYtDLEwmgx I5ID7 /zUZE/JeZU xzo8E MIa3ZcALcf XS6eJ jNk3l99l4H Xja2P LAbNa0sL8T LudVk /Vc1rD1Q5m hyRlQ eigcAEJWpq boXUB mT/DCAwYDr N1f/3 NwWIoWbsRY R2shC 0OehkBOYNc 7/2xg AD9SAr6RqW 9tfcd e0Se7OJQAw RL/YJ dzqnyrrXVp COPN/ NCxMad1x81 SOLOMON+6 QR49xD0bXD EaCgk 6JP0mnja9e p2ujn WOmIuPrlix Gh+uc J8fsFsNXRP QBl+u vv/bJdUaDH k4rIC avIbTg27l3 h615u TDAHc9iSWj dr60G ZXOO5GjTY9 giIFJ mjCTflf1T+ zGkJM CJg2G01VPE 5/X+F lR14Nxsj2a 4YUGM eP6QEU2zP4 UKECH sMETHcGgT6 yKVxP gDwGxb27G4 BRXCk l92Csv+yfO ymJoC KO+dqIev9R 4vInz dqjPaEgQYV JlrDF Hsl4xO+0cM 90FqQ jrInUHKBqW TQpxt uT2epcPNdV SPzCJ jhjqXoLIHh 1rD97 lk/kdPRud0 hNS6z cugHFk74QF 7vNOg ygOhGWHUiL vOa/N J30d7PwYuy SwkUl GCH0G589f9 UiCGX 8+5iSZcTlF gwbhF 8YMO32Yvde m+8L9 QFttt524rA ZtPDU TCLDePtYJL 9B0s8 HswM2zB0o+ 0/dlF gwIaPbGDCY TBgfr U33D+uoOtZ W298I cfCNNGIZgt I64QW 5QraMSy1nj Wn3Bh JGFUgT0CO5 w+Xsa 8HKbYk2Va4 xxCY6 SMw2tl5oDX 2KTL0 nYJwz2f1+K zrvwn DvaPfz7kb8 EvF1f IgEphQ/JV5 nKl1M r4+W2J1Hek +UNKq Awno/OKnmN OJN4Y cllGVJ4R5R mdh4j ZRLOI8b51F JM40K pzjCZ1AJU1 5OGzN 8zBm8iU3Ql BywRk XpI6iduJhn 1Wb2k SDtiuoc+Bj mkTjl lywRw8GGc7 TgBID uO4eysiLP1 p4pMM CI9ywavHQ2 dwNJM UOD5wX5Ebl GLRor 98BBRcgOsd klImv hKDiJ4R8rY Q6ifx u/UQnKZ8K2 XBIA1 0ezPEgrAja 8GuvG ZEu8Yu+Joy IzNsW ODuE8bv7Gd eJJr6 nna70V5Cgx ZiMEp juBDMHhedn 3U9BA +XegtlbA+Q PNN09 3aDCABLHyT dvhEC huI7oqvZ37 qBGO8 I6UJEaShO0 aqt9L KeL9LiuLPo 538a/ jJQpzU3ei9 28ZSH STw6O7oqvJ MHYvA t/CIDJzmg+ 8MIdY kx60O+g6Ya iGP6V bT0Jh8YnPq UJFN1 TK2AdcZ9AW Wqcj7 5UQBKXS32I 4xOVL 8nNZBdmcOG glspo pZC8rawhWJ euDDN LgD6gCfAdU GaCCk r/0Dah0Gt2 lJJ/A zSYoOB6+0G /DgA1 JgxoyXu5Lz 7fNAD TOXHv2Ojfy empGB Eb/uUREEE5 s4YL5 eQlyTCMLI5 8iTo7 +WgWBCT118 tfnEK TuE4+l+Wla l+UiC r+Phdx73Dg FXTZu IIgwyV/rosales E3zIE jeEUT3vZnV YOu1A gaodvs18cF kPWCE 3tjZsFZXeR 60LO8 lX8qdXIn+w qod7E iIwkV+d4TD E6MXO 9UNPkVP+5p vfU3R jy7j/5UkcF RCqSb 4V9pyZLTQh uDczk 0UEAIr5EqF wNH9r O+vbk6eQ/h 8hAIb bLbMErQUSN VVxxf +ivlXfrUAx Ck2HB SpMrasznYN q02B5 nC+VEZLtDC nbj+o J/4nF3IFp5 8Cwer AxECstrxDJ cApFx i/wp5PW2DT l9I2E 2wUH02a31k XMHyy Ad/janaImW 8Zk3y yrrRo+IHt/ EMsrr qYv1bETLiq U6/aL Mxt6nx10s2 FH5xR egJYgG4+h9 SXq/C z1k7nZ8TK2 XWa3d JK9WG75sjl oVIkJ nnxUU6obQO Yf3X/ tzciGCchlc xGOFn i+JF0TeB5C IGPD1 ZfN9XjnKXV 1NiSx Bwk53xdeFW pGrt+ 4DgYZMtHJ/ tIzaJ pxQPXG1jR9 UQHEY JwNsPZ3JEG 65ENH xlNSHD10n8 VICzc q3nXbpImb0 JTWS4 r+tbZNtpFg HjVvo P0FcN7bf0n oRkZX 4jzRV5VpeH yILuW IvwhFekduL pIq8C P+tnPi3Hx4 4mjoM Io+t63HmSj SIo88 rMHQ8ZDRr+ epnXZ 2OvulAYmIF o0Ttu /0OFeobxr3 qMzQ2 HU7kkq6PFL 5Aruq aCnFSgDoxy QnAEc FCkCzNj8df vh3Ka NF4ze7G9Fb YJ6fk Vmw+EgmGXO yl/tq LzIg6d3pXy LUTZM fUwXd3s+K9 LV2e6 E6qiiRN8HW Fkc22 hOs2YVFWCM 8y9bt 63K5BJW/Gp kYnOA 662XR3mShK I1+Cp vhR932ra87 3IgrG rxpzPxXM6l 2jrdg EgO512iWZy Alamg fxne81tyfW vxAit gLym9ZKiGp D0Uh4 Im+3/mCMnM OcYey WKu28q21Gr V8AkY 6ly2tXAmkU dWdUd lMCddwWT0C IMSgk YeyEae0XoQ AiOaN FRGejyIsQm QWldf J3+tqtuxOX C+D9w 99Ynampa+r NnL97 cblq+7q8yI mYIiR EYLbnJCO+v HURZQ pe+vy0cbz6 L+VFb RMaQWfaX14 UM+qj f9OzDTa3Gf U71wu vn2qD2o7PB IdD2o qB5B6FSPMy KLyqt HrkOkTSm2v CXJhG AXVKbeOjwX JVpEX mjAKRh4+ei E1pzX 15RJLlnXKC qBapS E049nHu3+S ccizn kYqczxwkUB xFiBD yEmHjEVm8u +0dvb OxFtHhmTkl 97zQ0 fCceIvOZ3T Y2J3M BUp2lr3wxr 5vk13 i1LFEzVNOk 8DAQ8 IFvxkk2fw4 YRoZI kRTovYA09d FiL5H YcuPSFfXM5 z66/C 2OyS+JCLfO 56X09 CrLMPxatbm Oh6/O OAkI6BQaM1 NzQkd BUw3gGHWVT 7i4GG zlEPl2RMzX JH+PP Pk2IIv0MXn PI8mT z+Ac9eldfc lyF9b hOFVrcHyjS ocwD0 Z9dPo5+iX0 iJa66 Zh5FZ0XGDA hZZ4e eQtbzOnRBw U1Vh5 JZJVCjAUlR wI7tI QicaIaEmhB xRoSM QbAgkB3BiI sFiMS OmwSe/3R5P kXo0d oErBjoEkOV Xup3I Ie7TyejCOt y2S3K F56syIPNpk kPFnl ZQtmPoWcbX G3mNQ MsZYMY6O9f iyHb0 zR+vhc2dw0 2wJlj 6jSPmresY8 AQkzD l8fZzWu5vM xC8gT E1FCPE2OeS 0+hYQ Sjxff8bzU7 7yzl3 EtI2Jl9zxa tl6mX Vsz2qo3Xmq Z1EEB 9QufHioO8v YYQqR J0c2EkfgHM oYgZf I3yIUUANXx rPe6B 58EG1fCqku ZiOjx z0UIab9tA8 eU4TS FuT2lD5h8T m4POM aT8gpb87zE ngcoU LmyDnp91Ed t/LGf Dn+El2IoUP O+CJS h7LuL2t4JD lStyS 4pxNjFRA2R Ip/7X KFtxcHNf9R 9yksD LgG4fJoOdu uax6S c/p0sdRN/L FNUXa UjstoyUvxh 4uoDw 3d72Arc8sb GKyX/ hsRPX+2Nxv k3Wli y8W36lSJ4V CtrHh 92qGRsns3/ aRftQ eTguiFKbvG eUy8K tKAstCLjsk vwR6Z aHEGYJKnwi ejhRG Ztg+TXkN/a xWC3R GLvYyQNqDL 107Ba YAhO9mcIfM wAJCH F/Ual8LkXh Z1yMh M+xxe7Hcz/ LXZ3d hZ4n9jgAKF brBOA yIAZlCvlD6 Tbk0j BypHItGJdK K+sK6 hw7H5bPvgs jVK8m PQyvFmIFow 23YJ5 yJp46So0b7 Q5goy uLQK2WsK+c 4htff I544n7e2MT 5YA6+ LZkWU81uHO wMY0c KLntgnemkD ZYMKg P4OyyKXTx0 FlrE9 C43B6qElb0 yVpuH qwgg4JXcYn uy80j rXApuv+73M LrDyz ZKRM/98S7L agN8j ckqplTQmD8 1YHvO MBMwR/akHh 4AxMJ isjQcwP8Z7 rhIye TvfZT92IZ2 puOmx a7miODq2Ry FAXH/ Lq69CAOPwh q9AXb zuhsEFbceX iIk05 d65j1cVSaW bzQZ5 gzkuKzb/Y9 ra0NK VYn/HGXGl1 1lf/O YfsLzY2SZM Gf0EC P5hPmBQBkD XFR4v slhBwbMQ7l DT5Xb H06FjIrbMA wLKBr r/i0KHW8YG fISUl pXqKO7FZ94 WhvSE sW86WXi45U A/6/d nyNSFx2vEB TL/Oz e+/oXJjugs erzcM HGNABf8khn 97Q/L m8CbVAq4r+ kQVTX KXFsM4GKDP OuIJz Xp5qqYUim5 DGx6Z Wp8BEJ/joq PH+8M 5GrFKIwr9T RApMd M1XDt4h2kY FvmYj 6dKH8FPc3c 1PHku I20JYjs+oz ppq5G O8VW04GKG2 /SigJ ZtAw3zYMwx vRP9c azlI+mUX3t 9kfX4 PJbOvzS+0r G1HUt 0DJTcpGptb dlHOT Aa5QVsUXbS avionics safety inspector+l X9rrbY62a/ Hs3z+ XsNQ6qjRTl fx4fP 8mbWlV/XuL eWj8H gbiydW3QC1 v2dQ6 +WfX/lfvo2 ZtsU0 JTiiVeO/SX UJYyA CmD7qST2zk 9r7Is a+xTNzlnNF 37wH3 1Y2w3bhVmt Gddar iH2mNZ4rZv Q1+Jm xeO9CU6/h0 VO6Ee fYVEPz02S5 rhO97 k7mgFnDHWv LX3jt FjoBVTFjpj 7/M1a IiV+8R0Stp a2pbY V5vLe7dFH+ WvOuw 8tcYScqLy9 r/e8A CPlpUlKBLE jE6p7 J1i38Z9a/1 xB8P/ I4SUChmkux gnJZe Q+ydys1fVp bOJ1z M31zel/vCq u7VQ8 /bY+yO2/ce lVU2N N3jP6QIZYr ouNt5 XXzTB/UWkV d13Kh 6CEpUnJXos Y6dyG xrf/oWkbeH 5FHf/ Sma83SQqbb B4Dp+ yqotj4prZU ms0D/ ZOvGibrX0C eTtgQ 3F45SPenY3 CALKb mgwiQLKZEt O8pvS /6nCtT7O8a A552o tOitrmt+sn v8Plv VO0NmbxzAi dHJlY H6OCH9kz6F qCjE1 WTGnk8UaJi w8L0d lb8XgUGaiR y9Ucm Hya8HvqjRs Y3kvS IC1fqXzN8s gZmFs d5OtW4YbKK EgMCB DRp7kG51xi GVudH NbMiAwIFIg MTYgM CBSIDMgMCB SXS9U mPOeM7HlI2 UvUmV kx8VyQ9OqA DwvQ2 8we3IIkWSv ZTw8L 1ElEoT5rWU SR0Ig MTEgMCBSPj 4vUHJ sR5DniGLwI 1BERi SnCMB0eINp SW1hZ 7QMZM6HgFX nZUMg G2lpCGhdEY 0vRm9 krDk5B2iwM m8gMT rnSQYNF0oi bHYgM XusIJPCU2h pMCAx AHCsBe4SBC 9iIDE 1NAFzEt9+L 1hPYm weA8F9KX27 ZzEwN aP9HvEpGON wIFIv sP8lBZGpJV EgMTQ gMCBSPj4+P i9QYX JlbnQgOSAw IFIvT DEfjOAFq0q bMCAw OIWuCgT9NP JdPj4 TPV4dk5HyP jkgMC BvYmoKPDwv S2lkc 1sxNSAwIFJ dL1R5 cGUvUGFnZX MvQ29 4rqCsXE7GG XJlbn QgNyAwIFI+ Pgplb mRvYmoKMjA gMCBv YmoKPDwvR3 JvdXA 3NL8NP9BwC W5zcG FjHT5hzX2Z U1svS UNDQmFzZWQ gMTIg MCBSXT4+L1 N1YnR 4zKXaAw8qf S9GaW y8VQDmNaip dGVEZ WNvZGUvTWF 0cml4 WzEgMCAwID EgMCA yDP4SaAPiE 1hPYm tqG4PzAf4f bVR5c URqYJ9PLCD vdXJj RJC3NQ9Fxm 9jU2V 5Sv3DQKNrA GV4dC 9JbWFnZUMv SW1hZ 6JFI5fdWOw lSV0v NA7llyJbpM w8L2l vXWR2ABzgT DE0ID AgUj4+Pj4v TGVuZ 9ZaDMReW1J Cb3hb QWUuPUP9Tg AyOV0 +HjQ4duNjj Qp4nN ONuEZ3SKLr NFRwy QcAFBADCgp lbmRz pADgXZ8MHC 5kb2J jDzG6VSHva 2JqCj w7V8OoeNQj ci9Gb TC8ATYtV87 kZS9M RK4mkHugQC QzND4 +q9EuHIPgX nicvV wVj2r7XU9f r9DMv ZiZYiTZkq3 2iQJt fAieD55q6k 43N65 DmxpIFmO5a 39/a4 LoC5VM2S4z k1iyJ W681966rvS 6hohP EYZfKpArbI Y8ym3 jHwR5CIq79 ieCOR YOGmbotzfF cDWYI Yce0UFWxiH BxIGh 1HSHqI5V2+ YJ9W7 khwzB1+DRz MOoK2 zHcTEmKFj9 ZU1mv 7zr/I2CX98 gNAre nFU9zlsBi6 JDmXC CD04OlXE1h gNwdR vDp4HzJCWw E1+t3 4+ibJfmHdS lno+s Cuy6juyjP8 R53K8 FOIQR2/61C Hc3A+ 9IERA2jKpw jQyTf Ha153jsQgL axog/ s1JOfOjtJ8 dvNWD /bjb+rDvzW mjmsL PGzMgJQ4So hYl8h LewWH4B9zO jTZ6l BpGtn0W168 Eutr5 6UEYNzVLX5 jY2DG 8/NG1A5/LV CbEZq eZrj/o9Ilh DxmLc mkqieXsBxi B04Wb bHDkunOvzY xBuCj mzhZNj2nY9 h24Ry qjbbQxaK/j PtwNI DwJ+BuPbad NZw4s DtBXWTMqF9 st9b1 oUts0cruTD H7c4V sjNtwOZ1fM ky4tw daGbf8FAFw X1GQM lqCXGcDwf3 PRnn0 l7voJNP/uB mx1xO IK4m8Htw8T dFZkP G5HhdNO1gW e3pjs g2kmHOAwun GMAZ5 9ZUP4zBVmE uCvcI 6rA85fT+2G Yy14Q r2S9a/sMaY NcBs+ zEp5Z5Y1NQ GgKKi e2x+v1EQCL E1xuA 6HRNFjXTx4 zyKLd SpZCJsqg/s fpttJ /lZyxGX4Vh TrM48 fOGG6V7DKC RyR8z fB18WjLM8i Glbjr EZtNjGB3Ha 3Ije4 gwhD9J9PXM ofpoq ygECTdSUJ1 aDx3E ZvAbPBk6wt IZDuz zsZMTTPjSb 6UpVO 9XIcN5dxMC OT6Nr 02CBsZxeuC RlNO1 okMt/IoENE 5045F 2biR/UmYhk +yGuC wIXc4Y4bxj 6b1YP kue+iYk9/x ug5kq r6Oaac4agj E8A5s VHFiRz1BvF BJ7Pv C0zOw+t0zd /v1MF VPoJTarvAx 4agLS EINy3mjGF/ ZxlEc Uu2CQmwzFA 8q1Wo KdF5OGqYHF La769 oEFFAXwKgQ aIUYx BcQCbUFSnR v/0j0 6P3/BC1h6W f0O0o xR3o0i57UN 4PxGJ vaj5eKb8kr gaipz 2heGPiTNjL HOxgE yinWpwJK0o mbk+p CqLtgp26dj ZO5xO YwEYoRVoub bkuLq 3Sxry32S+x P04q6 xn1YY7R7nh Qg+t1 1lv4Y/7MEm wgkJw qFKBlz6RTW 1atzl dp4XCZeMUz fXCv3 B/sX1IFepp U/Lev kSr+1RLxsU x6VNK 1T4Hn75qRC rS/jw cicdupSpbX zqBeM X3W/pRXtqj pmrcB no/l2BTaC0 EwT8X uv456PhM6/ hYCWN vRV+HdlhXq wvnSQ D+JzX58TKF 6gvjT kbGWP0hlEW 7OPt7 OJqZHTovdz NyjcH w1Oezw81aD HOgyJ 6AWqjza8EO 4KHoo bDiP5ywQ9N pdP2u 4m7zghbIf6 hP7/u eJQITArDX5 VqTDG 4ciGIkDPKJ VGjfd VOX2nKcHgY JDLYK gavRgq1HyM AuurX H206Ri8M2H OyyPV mNu25FXvBA lRud2 yLjCqw8dVz 0rV3i SH4JgsW7Wq HOZ6I 2w3MjdEbKS qcqHE J4h8+GpUeD Fzpgf pcsu0sXT38 L3lVd 8vk9b0zGgw LXKnD dPym3tan2s LKIbS p7zVuQrOJe y5Jmz oSxiHB8txv d0868 LDkBnneXHa MXzMw k2Cl5kMG9v JctZ/ o/5e4UaGBH kyRbL ITDc0hyBCS Lk4PC NCah11lRBZ QC0JT YYaLkp8Uf/ cKIF7 6sFRZbbC4x JS9JS Wl7+vKmtfG vctlC XRb5Bal5n+ msxwh BqFQiBGb5F k6bw7 9M+cevhCVf Ev0x+ 5ewplbmRzd HJlYW 1MVA7ge6Of CjE5I KXvt1ExXkw 8L05h bWUvSGVPYi 9TdWJ 1pPKzZ1E0f GUxL1 R5zWOiJd1s dC9CY IMxPf9mhN7 IZWx2 PVMuE7HwI2 JsaXF 0UH1TnpNvA GluZy 0PjG6LreCl RW5jb 2Rpbmc+Pgp lbmRv YmoKMTcgMC BvYmo KPDwvTmFtZ S9IZU SnX6P7AjZ7 cGUvV HlwZTEvVHl wZS9G h666K6Nqu3 VGb25 2W2rvtWNwh GljYS 4Oe5gmR9Md Y29ka Q8xK5kecbY uc2lF bmNvZGluZz 4+CmV iNN1scrorW CAwIG 9smbl5FK6V YW1lL 2lmpMCcA9P idHlw WA6AqHQtVV 9UeXB gX2NjvmOzP mFzZU ZvbnQvSGVs dmV0a NUqJ6KxK44 kaW5n G1wvigWja1 lFbmN vZGluZz4+C mVuZG 7vciz7VJRx b2JqC tk8Ho3ZXO4 kb2Jq CjUgMCBvYm oKPDw vRGVzdHMgM jEgMC FUAm5BSJ9q b2JqC wYzKSNyl8K qCjw8 F2GnPGFdNP BSL1h JTqTqGwS7N TAgbn VsbF0+Pgpl bmRvY moKMjMgMCB vYmoK PDwvRFsxNS AwIFI vCVtrADJ2I DcwOC BudWxsXT4+ CmVuZ A4heahvTPG wIG9i njn1NY7JMk E1IDA nQe6AARnaS zYgNj A2PE54fXhi Pj4KZ Q3el8FzCjT xIDAg l2UvHsp4S0 5hbWV jZtanH2UeF jhiMG JpZASsYX74 ZmZiL ThmNmUtOWU 0NDY3 NPr5PGoaMF AyMiA wIFIoTUtNR y1QaH kxnVSkZF1c Q29uc 3VsdCkgMjM gMCBS UH48T0WmKR JiMi1 uULG9YDPlP DctOD F6AY58SPAp NzYwY 2ZlMTcpIDI 0IDAg Ul0+Pgplbm RvYmo KMTAgMCBvY moKPD wvRGVzdChN S01HL ZEulXStJ9t hbiBD w72nsMz0QL 9QYXJ lbnQgNiAwI FIvVG h5gYE2HyUz ZjAwN UJjLFA8KSF 3OTAw FqXqFKN8UN A2MzA wNjkwMDYxM DA2ZT AwMjAwMDQz MDA2Z jAwNmUwMDc zMDA3 NTAwNmMwMD c0Pj4 +FeRrKQ4np goyNS OoLW7zijl0 PC9Nb 2REYXRlKEQ 6MjAy MYA3BKYhFn EyMzA tMDQnMDAnK S9Dcm VhdGlvbkRh dGUoR DoyMDIwMDQ xMDEy MTIzMCstNC cwMCc tP1Nba4C7I 2VyKE liZXggUERG IENyZ DK3m7PeCS1 5LjAu MTUvODQzOC BbSkF TON9LI2O4M G1vZG lmaWVkIHVz aW5nI MjBLBh1VCW uMS43 RUT6CYLDQ3 hUKT4 +IzWzUW3za gp4cm VmCjAgMjYK MDAwM DAwMDAwMCA 2NTUz NSBmIAowMD AwMDA oFAL1WSZkR DAwIG 4gCjAwMDAw MDAxM DMgMDAwMDA gbiAK MDAwMDAwMD E3OSA wMDAwMCBuI AowMD AwMDAwMzE0 IDAwM PMnLD6dJqX wMDAw MTAyNjEgMD AwMDA gbiAKMDAwM DAwMD G3BAFdVIPv MCBuI AowMDAwMDA wNDI3 IDAwMDAwIG 4gCjA wMDAwMTAyN DEgMD AwMDAgbiAK MDAwM UEoWDR0JFR wMDAw MCBuIAowMD AwMDE eTQd6RXAmC DAwIG 4gCjAwMDAw MDA1N DMgMDAwMDA gbiAK MDAwMDAwMD U3OCA wMDAwMCBuI AowMD AwMDAzMjQ3 IDAwM BMzNY9xMiG wMDAw DZE2ZbWzAJ AwMDA gbiAKMDAwM DAwNz czOCAwMDAw MCBuI AowMDAwMDA 4NDI4 IDAwMDAwIG 4gCjA wMDAwMTAwM zggMD AwMDAgbiAK MDAwM PWvGVK5JtN wMDAw MCBuIAowMD AwMDA 5OTMxIDAwM DAwIG 4gCjAwMDAw MDgxM zkgMDAwMDA gbiAK MDAwMDAxMD QzNSA wMDAwMCBuI AowMD AwMDEwMjk0 IDAwM VFbNJ1aZxV wMDAw MTAzNDEgMD AwMDA gbiAKMDAwM DAxMD I0HUSwHHCz MCBuI AowMDAwMDE wNzMw IDAwMDAwIG 4gCnR yYWlsZXIKP DwvSW 5mbyAyNSAw IFIvS LWvWaebB0D 4MzJm WnAsKTT6KF ExNjl pAsO7GSGsX 2VhYz UeDu55GmCl YTM2N kP2WDTxAaA mYjMz HKJbI5ZbN7 UzYTA 4ODM+XS9Sb 290ID VaAFENJ7Nm emUgM jY+PgpzdGF ydHhy XITOTYN6KR AKJSV FT0YK ID Date Data Source [id number] 08/12/2019 03:36:00 PM EDT [facility] Name Value Range Interpretation Code Description Data Migdalia rce(s) Supporting Document(s ) [id number] Negative [address] Test Performed by: [facility] Department of Pathology and Laboratory [address] [place], [place] [id number] SVNM# [id number] Colten Guzman MD, Director CD:[id number] [facility] ID Date Data Source {[id number] 08/04/2019 12:22:00 AM EDT [facility] Brothpk [id number]} [facility] Patient: BG DUTTA Age: [...] it accurately records my words and actions., Tiffany LAUREN, Layton Biggs.1:1cm aware08/03/2019 10:10:06 Comment by: Ebony Pettit spoke [...] in pt chart Ebony Pettit [address] [place] [address] [id number] [place] PPOAPRIL [id number] signed by Layton Allen MD 08/04/2019 00:22 EDTElectronically signed by Daneshvar, Abdoulaye 08/03/2019 17:54 EDTElectronically signed by Daneshvar, Abdoulaye 08/03/2019 18:11 EDT Name Value Range Interpretation Code Description Data Migdalia rce(s) Supporting Document(s ) ID Date Data Source [id number] 08/03/2019 11:46:00 AM EDT [facility] Patient Name: LUZMARIAAugust SMRN: [id number] General DiagnosticACCESSION EXAM DATE/TIME PROCEDURE ORDERING PROVIDER [id number] 08/03/2019 11:03 EDT XR Chest Portable Sherrell Mcdaniel DO (Verified)[place] son For Exam(XR Chest Portable) Altered Mental [...] evaluation of this patient. Final Dictate d: Marilyn LAUREN, Oral Colunga 08/03/19 11:43Signed: Oral Sanders MD 08/03/19 11:46Transcribed by: ADM Name Value Range Interpretation Code Description Data Migdalia rce(s) Supporting Document(s ) ID Date Data Source [id number] 08/04/2019 10:55:00 AM EDT [facility] Name Value Range Interpretation Code Description Data Migdalia rce(s) Supporting Document(s ) Hep B Core [facility] Test performed by:[employer] [place], [place] Cindy Land M.D. ID Date Data Source [id number] 08/04/2019 08:51:00 AM EDT [facility] Name Value Range Interpretation Code Description Data Migdalia rce(s) Supporting Document(s ) Hep B Core NA [facility] Test performed by:[employer] [place] Cindy Land M.D. ID Date Data Source [id number] 08/03/2019 05:07:00 PM EDT [facility] Name Value Range Interpretation Description Data Sup porting Code Source(s) Document(s ) Hep C Ab. Non Reactive NO [facility] Test performed on the Siemens ADVIA Cent aur XP using a diagnostic immunoassay. ID Date Data Source [id number] 08/03/2019 05:06:00 PM EDT [facility] Name Value Range Interpretation Description Data Sup porting Code Source(s) Document(s ) HIV Non Reactive [facility] 1/2,p24 [facility] This test was performed on the [...] permitted by law ID Date Data Source [id number] 08/03/2019 12:36:00 PM EDT [facility] Name Value Range Interpretation Description Data Sup porting Code Source(s) Document(s ) Glucose Lvl 121 65-99 HI [place] mg/dL [facility] BUN 16.1 6.0-20.0 NO [place] mg/dL [facility] Creatinine 0.73 0.40-1.0 NO [place] mg/dL 0 [facility] BUN/Creat 22.1 7.0-29.0 NO [place] Ratio ratio [facility] Sodium Lvl 138 136-145 NO [place] mmol/L [facility] Potassium Lvl 4.2 3.5-5.1 NO [place] mmol/L [facility] Chloride 103 98-107 NO [place] mmol/L [facility] CO2 25 23-29 NO [place] mmol/L [facility] AGAP 10 5-15 NO [place] [facility] Calcium Lvl 9.4 8.6-10.0 NO [place] mg/dL [facility] Total Protein 6.9 6.0-8.3 NO [place] gm/dL [facility] Albumin Lvl 4.5 3.5-5.0 NO [place] gm/dL [facility] Glob 2.4 2.0-4.5 NO [place] gm/dL [facility] A/G Ratio 1.9 1.0-2.2 NO [place] ratio [facility] Bili Total 0.5 0.3-1.2 NO [place] mg/dL [facility] Alk Phos 63 IU/L 38-126 NO [place] [facility] AST 19 IU/L 15-41 NO [place] [facility] ALT 14 IU/L 7-40 [facility] ID Date Data Source [id number] 08/03/2019 12:29:00 PM EDT [facility] Added by Discern Rule [id number] Name Value Range Interpretation Code Description Data Migdalia rce(s) Supporting Document(s ) eGFR-AA >90 >=60 NO [facility] mL/min/1.[address] The CKD-EPI equation for non- Breann [...] Mild decrease* G3a 45-59 Mild to moderate [id number] 30-44 Moderate to s evere decreaseG4 15-29 Severe decreaseG5 14 or less Kidney fa ilure eGFR-ELIZABETH 81 mL/min/1.73m2 >=60 NO [facility] The CKD-EPI equation for non- [...] Mild decrease* G3a 45-59 Mild to moderate [id number] 30-44 Moderate to s evere decreaseG4 15-29 Severe decreaseG5 14 or less Kidney fa ilure ID Date Data Source [id number] 08/03/2019 12:24:00 PM EDT [facility] Name Value Range Interpretation Description Data Sup porting Code Source(s) Document(s ) Hep C Ab. Non Reactive NO [facility] Test performed on the Siemens ADVIA Cent aur XP using a diagnostic immunoassay. ID Date Data Source [id number] 08/03/2019 12:21:00 PM EDT [facility] Name Value Range Interpretation Description Data Sup porting Code Source(s) Document(s ) HIV Non Reactive NA [facility] 1/2,p24 [facility] This test was performed on the Siemens A Genesantia Centaur XP using a two-wash antigen/antibody sandwich [...] permitted by law ID Date Data Source [id number] 08/03/2019 11:50:00 AM EDT [facility] Name Value Range Interpretation Code Description Data Migdalia rce(s) Supporting Document(s ) TSH 1.00 0.34-5.60 NO [facility] mcIU/[facility] ID Date Data Source [id number] 08/03/2019 11:36:00 AM EDT [facility] Name Value Range Interpretation Description Data Sup porting Code Source(s) Document(s ) Salicylate Lvl <4.0 4.0-29.9 LO [facility] mg/dL [facility] ID Date Data Source [id number] 08/03/2019 11:36:00 AM EDT [facility] Name Value Range Interpretation Code Description Data Migdalia rce(s) Supporting Document(s ) Ethanol Lvl 0-9 NA [facility] Result created by Discern rule. ID Date Data Source [id number] 08/03/2019 11:35:00 AM EDT [facility] Name Value Range Interpretation Description Data Sup porting Code Source(s) Document(s ) Acetaminoph <10.0 10.0-30. LO [place] Lvl mcg/mL 0 [facility] ID Date Data Source [id number] 08/03/2019 11:35:00 AM EDT [facility] Name Value Range Interpretation Code Description Data Supporting Source(s) Document(s ) Troponin- <0.03 <=0.05 NO [place] I ng/mL [facility] ID Date Data Source [id number] 08/03/2019 11:32:00 AM EDT [facility] Name Value Range Interpretation Code Description Data Migdalia rce(s) Supporting Document(s ) Ammonia 27 mcmol/L 11-35 NO [facility] ID Date Data Source [id number] 08/03/2019 11:02:00 AM EDT [facility] Name Value Range Interpretation Description Data Sup porting Code Source(s) Document(s ) Neut Auto 75.7 % 50.0-80.0 NO [facility] Lymph Auto 12.7 % 14.0-44.0 LO [facility] [place] Auto 10.5 % 0.0-12.0 NO [facility] Eos Auto 0.5 % 0.0-7.0 NO [facility] Baso Auto 0.6 % 0.0-3.0 NO [facility] Neut 3.9 2.0-8.4 NO [place] Absolute x10(3)/[facility] Lymph 0.7 0.6-4.8 NO [place] Absolute x10(3)/[facility] [place] 0.5 0.0-1.1 NO [place] Absolute x10(3)/[facility] Eos Absolute 0.0 0.0-0.5 NO [place] x10(3)/[facility] Baso 0.0 0.0-0.3 NO [place] Absolute x10(3)/[facility] ID Date Data Source [id number] 08/03/2019 11:02:00 AM EDT [facility] Name Value Range Interpretation Description Data Sup porting Code Source(s) Document(s ) WBC 5.1 4.0-10.5 NO [place] x10(3)/[facility] RBC 4.05 3.80-5.20 NO [place] x10(6)/[facility] Hgb 12.9 11.4-15.1 NO [place] gm/dL [facility] Hct 37.7 % 36.0-46.0 NO [facility] MCV 93 fL 80-98 NO [facility] MCH 32.0 pg 26.0-34.0 NO [facility] MCHC 34.3 32.0-36.0 NO [place] gm/dL [facility] RDW 13.4 % 11.0-15.0 NO [facility] Platelet 266 150-400 NO [place] x10(3)/[facility] MPV 8.5 fL 8.5-13.0 NO [facility] ID Date Data Source [id number] 08/03/2019 11:32:00 AM EDT [facility] Name Value Range Interpretation Description Data Sup porting Code Source(s) Document(s ) UA Color Yellow NO [facility] UA Appear Clear NO [facility] UA pH 5.0-8.0 NO [facility] UA Spec Grav 1.015 1.005-1.030 NO [facility] UA Glucose Negative NO [facility] UA Ketones Negative NO [facility] UA Urobilinogen 0.2-1.0 NO [facility] UA Bili Negative NO [facility] UA Blood Negative NO [facility] UA Protein Negative NO [facility] UA Nitrite Negative NO [facility] UA Leuk Est Negative NO [facility] ID Date Data Source [id number] 08/03/2019 11:31:00 AM EDT [facility] Name Value Range Interpretation Description Data Sup porting Code Source(s) Document(s ) U Amph Not Detected NA [facility] Result created by Discern rule.Substance of abuse cutoff levels:Amphetamine...................... .....1000 ng/mlBarbiturate........................ ....200 ng/mlBenzodiazepine..................... ....200 ng/mlCannibinoid........................ .....50 ng/mlCocaine............................ ....300 ng/mlOpiates............................ ....300 ng/mlPhencyclidine (PCP).....................25 ng/mlMethad one..............................300 ng/mlPropoxyphene....................... ....300 ng/mlPlease note: This is a urine screening test only.Positive results are not confirmed by a secondary method.Unconfirmed screening results are to be used only for medical purposes. U Yasemin Scr Not Detected NA [facility] Result created by Discern rule. U Benzodia Scr Not Detected AB [facility] Result created by Discern rule. U Cannab Scr Not Detected NA [facility] Result created by Discern rule. U Cocaine Scr Not Detected NA [facility] Result created by Discern rule. U Opiate Scr Not Detected NA [facility] Result created by Discern rule. U Phencyclidine Not Detected NA [facility] Result created by Discern rule. U Propoxyphene Not Detected [facility] Result created by Discern rule. U Methadone Not Detected [facility] Result created by Discern rule. ID Date Data Source [id number] 08/03/2019 10:20:00 AM EDT [facility] Patient Name: LUZMARIA AUGUST SMRN: [id number] Computed TomographyACCESSION EXAM DATE/TIME PROCEDURE ORDERING PROVIDER [id number] 08/03/2019 10:[address] Head WO Zen [...] Supporting Document(s ) ID Date Data Source {[id number] 08/07/2019 09:32:00 AM EDT [id number] Patient: LUZMARIA Aug S Age: 63 years [...] been torturing me in my dogs. Anni england is a poor historian, she seems paranoid. [...] Family/ Social History Medical history: ResolvedFrozen shoulder ([id number]): Resolved.. Surgical history: removal of growth in cervix.pe g tube.Comments:07/14/2013 12:31 EDT - Isabelle Antoniocharlieremoved 10 years 06/09/2013 15:00 EST - Shruti [...] 75.7 % Lymph Auto 12.7 % LOW [place] Auto 10.5 % Eos Auto 0.5 % B aso Auto 0.6 % Neut Absolute 3.9 x10(3)/mcL Lymph Absolute 0.7 x10(3)/mc L [place] Absolute 0.5 x10(3)/mcL Eos Absolute 0.0 x10(3)/mcL [...] admission. Will be alejandro sferred to [facility]. I personally saw and examined the [...] i n pt chart Ebony snyder [id number] [id number] [place] PPOAPRIL Z [id number] signed by Sherrell Mcdaniel DO 08/07/2019 09:32 EDTElectronically signed by Charissa LEON [facility] 08/03/2019 15:44 EDTElectr onically signed by Charissa LEON [facility] 08/03/2019 15:45 EDT Name Value Range Interpretation Code Description Data Migdalia rce(s) Supporting Document(s ) ID Date Data Source [id number] 08/03/2019 09:37:00 AM EDT [facility] [id number]} [facility] Patient: BG DUTTA S Age: 63 years Sex: Female : 1955 Associated Diagnoses: None Author: Nimo LOPEZ, Juan Carlos Deluna Basic Information Vital Signs Vital Signs 08/03/2019 9:30 EDT Temp erature Oral 98.4 DegF Systolic Blood Pressure 122 mmHg Diastolic Blood Press ure 77 mmHg Mean Arterial Pressure, Cuff 92 mmHg Heart Rate Monitored 79 bpm . Jose modi Oxygen Information 08/03/2019 9:30 EDT SpO2 99 [...] Supporting Document(s ) ID Date Data Source [id number] 07/24/2019 01:44:00 PM EDT [facility] Name Value Range Interpretation Description Data Sup porting Code Source(s) Document(s ) Lacosamide Lvl [facility] Reference Range:Expected concentrations of lacosamide in patientsreceiving recommended daily dosages: Up to15.0 mcg /mL.Toxic range not establishedThis test was developed and its analytical performance characteristics have been determined by [employer] Manny Martinez. I t has not been cleared or approved by the USFood and Drug Administration. This ass ay has been validatedpursuant to the CLIA regulations and is used for clinicalpurp oses.This test performed by:[facility] [place] [address] ID Date Data Source [id number] 07/22/2019 03:27:00 AM EDT [facility] Name Value Range Interpretation Description Data Sup porting Code Source(s) Document(s ) Zonisamide Lvl 10.0-40.0 [facility] This test was developed and its analytic al performancecharacteristics have been determined by [facility] Kiarra Martinez. It has not been cleared or approved by the USFood and Drug Administ ration. This assay has been validatedpursuant to the CLIA regulations and is used for clinicalpurposes.This test performed by:[facility] [place] [address] ID Date Data Source [id number] 07/19/2019 08:37:00 AM EDT [facility] Name Value Range Interpretation Code Description Data Migdalia rce(s) Supporting Document(s ) MMA Qnt 87-318 NA [facility] Test performed by:[employer] [place], [place] Cindy Land M.D. Homocysteine Lvl <10.4 NA [facility] Homocysteine is increased by functional deficiency of folateor vitamin B12. Testing for methylmalonic aciddifferentiates bet ween these deficiencies. Other causesof increased homocysteine include renal charlotte lure, folateantagonists such as methotrexate and phenytoin, andexposure to nitrous ox walker.Nyla Puri, et al. Karol Rim Turning Machine Operator Med. 1999;131(5):331-9.Test performed by:[employer] [place], [place] [address]CqixzcxtJose A Land M.D. ID Date Data Source [id number] 07/16/2019 10:53:00 AM EDT [facility] Name Value Range Interpretation Description Data Sup porting Code Source(s) Document(s ) Hemoglobin A1C 5.6 % <=5.6 NO [facility] 5.7-6.4% Pre-diabetes> 6.4% Diagno stic for diabetes(Summarized from [place] [employer] 2018 Standards)This test was performed using the [employer] Hb 9210 Analyzer utilizing [employer]. ID Date Data Source [id number] 07/16/2019 02:28:00 AM EDT [facility] Name Value Range Interpretation Description Data Sup porting Code Source(s) Document(s ) Vitamin D 65.4 30.0-100. NO [place] Lvl, Total ng/mL 0 [facility] Vitamin D is an immunoassay performed on the S B Er XP ID Date Data Source [id number] 07/15/2019 10:48:00 PM EDT [facility] Name Value Range Interpretation Description Data Sup porting Code Source(s) Document(s ) Vitamin B12 507 pg/mL 180-914 NO [facility] ID Date Data Source [id number] 07/15/2019 10:15:00 PM EDT [facility] Name Value Range Interpretation Description Data Sup porting Code Source(s) Document(s ) Neut Auto 77.4 % 50.0-80.0 NO [facility] Lymph Auto 14.3 % 14.0-44.0 NO [facility] [place] Auto 6.6 % 0.0-12.0 NO [facility] Eos Auto 1.0 % 0.0-7.0 NO [facility] Baso Auto 0.7 % 0.0-3.0 NO [facility] Neut 6.5 2.0-8.4 NO [place] Absolute x10(3)/[facility] Lymph 1.2 0.6-4.8 NO [place] Absolute x10(3)/[facility] [place] 0.6 0.0-1.1 NO [place] Absolute x10(3)/[facility] Eos Absolute 0.1 0.0-0.5 NO [place] x10(3)/[facility] Baso 0.1 0.0-0.3 NO [place] Absolute x10(3)/[facility] ID Date Data Source [id number] 07/15/2019 10:15:00 PM EDT [facility] Name Value Range Interpretation Description Data Sup porting Code Source(s) Document(s ) WBC 8.4 4.0-10.5 NO [place] x10(3)/[facility] RBC 4.21 3.80-5.20 NO [place] x10(6)/[facility] Hgb 13.7 11.4-15.1 NO [place] gm/dL [facility] Hct 39.4 % 36.0-46.0 NO [facility] MCV 94 fL 80-98 NO [facility] MCH 32.5 pg 26.0-34.0 NO [facility] MCHC 34.7 32.0-36.0 NO [place] gm/dL [facility] RDW 13.7 % 11.0-15.0 NO [facility] Platelet 263 150-400 NO [place] x10(3)/[facility] MPV 9.7 fL 8.5-13.0 NO [facility] ID Date Data Source [id number] 07/15/2019 10:00:00 PM EDT [facility] Name Value Range Interpretation Description Data Sup porting Code Source(s) Document(s ) Glucose Lvl 95 mg/dL 65-99 NO [facility] BUN 23.1 6.0-20.0 HI [place] mg/dL [facility] Creatinine 0.84 0.40-1.0 NO [place] mg/dL 0 [facility] BUN/Creat 27.5 7.0-29.0 NO [place] Ratio ratio [facility] Sodium Lvl 140 136-145 NO [place] mmol/L [facility] Potassium Lvl 3.9 3.5-5.1 NO [place] mmol/L [facility] Chloride 107 98-107 NO [place] mmol/L [facility] CO2 22 23-29 LO [place] mmol/L [facility] AGAP 11 5-15 NO [facility] Calcium Lvl 9.8 8.6-10.0 NO [place] mg/dL [facility] Total Protein 6.5 6.0-8.3 NO [place] gm/dL [facility] Albumin Lvl 4.6 3.5-5.0 NO [place] gm/dL [facility] Glob 1.9 2.0-4.5 LO [place] gm/dL [facility] A/G Ratio 2.4 1.0-2.2 HI [place] ratio [facility] Bili Total 0.5 0.3-1.2 NO [place] mg/dL [facility] Alk Phos 86 IU/L 38-126 NO [facility] AST 17 IU/L 15-41 NO [facility] ALT 14 IU/L 7-40 NO [facility] ID Date Data Source [id number] 07/15/2019 09:54:00 PM EDT [facility] Added by Discern Rule [id number] Name Value Range Interpretation Code Description Data Migdalia rce(s) Supporting Document(s ) eGFR-AA 84 >=60 [facility] The CKD-EPI equation for non- Breann [...] Mild decrease* G3a 45-59 Mild to moderate appuhegtC8x 30-44 Moderate to s evere decreaseG4 15-29 Severe decreaseG5 14 or less Kidney fa ilure eGFR-ELIZABETH 69 mL/min/1.73m2 >=60 NO [facility] The CKD-EPI equation for non- [...] Mild decrease* G3a 45-59 Mild to moderate [id number] 30-44 Moderate to s evere decreaseG4 15-29 Severe decreaseG5 14 or less Kidney fa ilure Procedure Social History Code Duration Value Status Description Data Source(s ) Smoking 08/03/2019 Never smoked completed Never smoked [place] [facility] - 12:26:18 PM EDT tobacco tobacco (finding) [facility] (finding) Center Smoking 08/03/2019 Never smoked completed Never smoked [place] [facility] - 12:26:18 PM EDT tobacco tobacco (finding) [facility] (finding) Center Smoking 08/03/2019 Never smoked completed Never smoked [place] [facility] - 12:26:18 PM EDT tobacco tobacco (finding) [facility] (finding) [facility] Smoking 08/03/2019 Never smoked completed Never smoked [place] [facility] - 12:26:18 PM EDT tobacco tobacco (finding) [facility] (finding) [facility] Vital Signs ID Date Data Source UNK Name Value Range Interpretation Code Description Data Source(s) Diastolic blood 82 mm[Hg] 60-90 mmHg Normal (applies to 82 mm[Hg] N [facility] pressure non-numeric results) - [facility] Systolic blood 124 mm[Hg] 90-130 mmHg Normal (applies to 124 mm[Hg] [facility] pressure non-numeric results) - [facility] Oxygen therapy [facility] [Minimum Data - [place] Set] [facility] Center Oxygen saturation 100 % 94-100 % Normal (applies to 100 % [facility] in Blood non-numeric results) - [facility] Pulse oximetry Center Diastolic blood 62 mm[Hg] 60-90 mmHg Normal (applies to 62 mm[Hg] [facility] pressure non-numeric results) - [facility] Systolic blood 116 mm[Hg] 90-130 mmHg Normal (applies to 116 mm[Hg] [facility] pressure non-numeric results) - [facility] Respiratory rate 18 br/min 14-20 Normal (applies to 18 br/min [facility] br/min non-numeric results) - [facility] Heart rate 64 bpm 60-100 bpm Normal (applies to 64 bpm [facility] non-numeric results) - [facility] Oral temperature 97.1 [degF] 96.4-99.1 Normal (applies to 97.1 [degF ] [facility] DegF non-numeric results) - [facility] Oxygen therapy [facility] [Minimum Data - [place] Set] Hospital Center Oxygen saturation 100 % 94-100 % Normal (applies to 100 % [facility] in Blood non-numeric results) - [facility] hospital Postductal by [facility] Pulse oximetry Center Diastolic blood 71 mm[Hg] 60-90 mmHg Normal (applies to 71 mm[Hg] [facility] pressure non-numeric results) - [facility] Systolic blood 109 mm[Hg] 90-130 mmHg Normal (applies to 109 mm[Hg] [facility] pressure non-numeric results) - [facility] Respiratory rate 18 br/min 14-20 Normal (applies to 18 br/min [facility] br/min non-numeric results) - [facility] Heart rate 67 bpm 60-100 bpm Normal (applies to 67 bpm [facility] non-numeric results) - [facility] Oral temperature 97.5 [degF] 96.4-99.1 Normal (applies to 97.5 [degF ] [facility] DegF non-numeric results) - [facility] Respiratory rate 18 br/min 14-20 Normal (applies to 18 br/min [facility] br/min non-numeric results) - [facility] Oral temperature 97.7 [degF] 96.4-99.1 Normal (applies to 97.7 [degF ] [facility] DegF non-numeric results) - [facility] Oxygen saturation 97 % 94-100 % Normal (applies to 97 % [facility] in Blood non-numeric results) [facility] [place] P[facility]xim[facility] Heart rate 62 bpm 60-100 bpm Normal (applies to 62 bpm [facility] non-numeric results) - [facility] Diastolic blood 74 mm[Hg] 60-90 mmHg Normal (applies to 74 mm[Hg] [facility] pressure non-numeric results) - [facility] Systolic blood 110 mm[Hg] 90-130 mmHg Normal (applies to 110 mm[Hg] [facility] pressure non-numeric results) - [facility] Oxygen therapy [facility] [Minimum Data - [place] Set] [facility] Oral temperature 98.1 [degF] 96.4-99.1 Normal (applies to 98.1 [degF ] [facility] DegF non-numeric results) - [facility] Oxygen saturation 95 % 94-100 % Normal (applies to 95 % [facility] in Blood non-numeric results) - [facility] [place] P[facility]xim[facility] Heart rate 75 bpm 60-100 bpm Normal (applies to 75 bpm [facility] non-numeric results) - [facility] Mean blood 80 mm[Hg] 80 mm[Hg] [facility] pressure by - [facility] Diastolic blood 67 mm[Hg] 60-90 mmHg Normal (applies to 67 mm[Hg] [facility] pressure non-numeric results) - [facility] Systolic blood 106 mm[Hg] 90-130 mmHg Normal (applies to 106 mm[Hg] [facility] pressure non-numeric results) - [facility] Oxygen therapy [facility] [Minimum Data - [place] Set] [facility] Respiratory rate 18 br/min 14-20 Normal (applies to 18 br/min [facility] br/min non-numeric results) - [facility] Oral temperature 98.4 [degF] 96.4-99.1 Normal (applies to 98.4 [degF ] [facility] DegF non-numeric results) - [facility] Oxygen saturation 99 % 94-100 % Normal (applies to 99 % [facility] in Blood non-numeric results) - [facility] Postductal by [place] Pulse oximetry Medical nter Heart rate 79 bpm 60-100 bpm Normal (applies to 79 bpm [facility] non-numeric results) - [facility] Mean blood 92 mm[Hg] 92 mm[Hg] [facility] pressure by - [facility] Diastolic blood 77 mm[Hg] 60-90 mmHg Normal (applies to 77 mm[Hg] N [facility] pressure non-numeric results) - [facility] Systolic blood 122 mm[Hg] 90-130 mmHg Normal (applies to 122 mm[Hg] N [facility] pressure non-numeric results) - [facility] Respiratory rate 16 br/min 14-20 Normal (applies to 16 br/min [facility] br/min non-numeric results) - [facility] Body mass index 17.6 kg/m2 17.6 kg/m2 [facility] ealt (BMI) [Ratio] - [facility] Body weight 46.75 kg 46.75 kg [facility] Measured - [facility] Body height [address] [facility] h - [facility] Body mass index 17.6 kg/m2 17.6 kg/m2 [facility] ealth (BMI) [Ratio] - [facility] Oxygen therapy No pranav [Minimum Data - [place] Set] [facility] Patient Treatment Plan of Care Planned Activity Planned Date Details Description Data Source (s) Prazosin 1 MG Oral 08/12/2019 11:09:00 [facility] Capsule [facility] olanzapine 10 mg oral 08/12/2019 11:09:00 [facility] - tablet AM EDT [facility] Lorazepam 2 MG Oral 08/12/2019 11:09:00 [facility] - Tablet AM EDT [facility] hydrOXYzine 08/12/2019 11:09:00 [facility] - AM EDT [facility] Vitamin D3 08/03/2019 10:52:00 [facility] - PM EDT [facility] Vitamin D3 08/03/2019 10:52:00 [facility] - PM EDT [facility] zonisamide 100 MG Oral 08/03/2019 04:21:00 [facility] - Capsule PM EDT [facility] zonisamide 100 MG Oral 08/03/2019 04:21:00 [facility] - Capsule PM EDT [facility] clobazam 20 MG Oral 08/03/2019 04:20:00 [facility] - Tablet PM EDT [facility] clobazam 20 MG Oral 08/03/2019 04:20:00 [facility] - Tablet PM EDT [facility] lacosamide 200 MG Oral 08/03/2019 04:19:00 [facility] - Tablet PM EDT [facility] lacosamide 200 MG Oral 08/03/2019 04:19:00 [facility] - Tablet PM EDT [facility]
[2020-02-20] MEDS ORDERED: SUCCINYLCHOLINE CHLORIDE 200 MG/10 ML SYRINGE ONE (07:33)
[2020-02-20] MEDS ORDERED: PROPOFOL 20 ML ONE (07:33)
[2020-02-20 08:21] VITALS: PULSE 67; TEMP 98
[2020-02-20 09:40] VITALS: BP 113/72
== END 2020-02-20 09:10 | disposition home or self-care (01) ==
LOC: FECT 05:55
PROVIDERS: ATTEND Psychiatry & Neurology Psychiatry
PROC: GZB4ZZZ Other Electroconvulsive Therapy (ICD-10-PCS; principal; 2020-02-20 07:30)
DX: F32.9 Major depressive disorder, single episode, unspecified (principal)
CPT/HCPCS: 90870; 94760; C9803; U0003

== ENCOUNTER 2020-02-23 06:05 | Day surgery (SDC) | payer OTHER ==
--- OUTSIDE RECORDS SUMMARY | 2020-02-13 11:21 | XMS ---
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 Vishnu paredes [facility] and reported by [facility]. ID Date Data Source [id number] 12/15/2019 12:00:00 AM EDT [facility] Name Value Range Interpretation Code Description Data Migdalia rce(s) Supporting Document(s ) 2018-nCoV [facility] RNA XXX ELIZABETH+probe- Imp This lab was ordered by [facility] and reported by [employer] ID Date Data Source [id number] 10/14/2019 12:00:00 AM EDT [facility] Name Value Range Interpretation Code Description Data Migdalia rce(s) Supporting Document(s ) 2018-nCoV [facility] RNA XXX ELIZABETH+probe- Imp This lab was ordered by [facility] and reported by [employer] ID Date Data Source [id number] 08/17/2019 08:19:00 AM EDT [facility] Name Value Range Interpretation Description Data Sup porting Code Source(s) Document(s ) Neut Auto 57.1 % 40.0-70.0 NO [facility] Lymph Auto 29.3 % 22.0-44.0 NO [facility] Chambers Auto 10.5 % 4.0-11.0 NO [facility] Eos Auto 2.4 % 0.0-8.0 NO [facility] Baso Auto 0.7 % 0.0-3.0 NO [facility] Neut 2.3 1.8-7.7 NO [place] Absolute x10(3)/[facility] Lymph 1.2 1.0-4.8 NO [place] Absolute x10(3)/[facility] Chambers 0.4 0.2-1.2 NO [place] Absolute x10(3)/[facility] Eos Absolute 0.1 0.0-0.9 NO [place] x10(3)/[facility] Baso 0.0 0.0-0.3 NO [place] Absolute x10(3)/[facility] ID Date Data Source [id number] 08/17/2019 08:19:00 AM EDT [facility] Name Value Range Interpretation Description Data Sup porting Code Source(s) Document(s ) WBC 3.9 4.5-11.0 LO [place] x10(3)/[facility] RBC 3.39 4.00-5.20 LO [place] x10(6)/[facility] Hgb 10.5 12.0-16.0 LO [place] gm/dL [facility] Hct 31.2 % 36.0-46.0 LO [facility] MCV 92 fL 80-100 NO [facility] MCH 31.0 pg 26.0-34.0 NO [facility] MCHC 33.8 31.0-37.0 NO [place] gm/dL [facility] RDW 13.3 % 11.5-14.5 NO [facility] Platelet 222 150-350 NO [facility] x10(3)/[facility] MPV 7.8 fL 7.4-10.4 NO [facility] ID Date Data Source [id number] 08/16/2019 08:30:00 AM T [facility] Name Value Range Interpretation Description Data Sup porting Code Source(s) Document(s ) Magnesium 2.1 mg/dL 1.6-2.5 NO [facility] ID Date Data Source [id number] 08/16/2019 08:30:00 AM [facility] Added by Discern Rule GLB_ADD_GFR_BMP Name Value Range Interpretation Code Description Data Mgidalia rce(s) Supporting Document(s ) eGFR-AA >90 >=60 [facility] mL/min/[address] The CKD-EPI equation for non- [employer] rican individuals is used to calculate the [...] Mild decrease* G3a 45-59 Mild to moderate gjprgdoxC2k 30-44 Moderate to s evere decreaseG4 15-29 Severe decreaseG5 14 or less Kidney fa ilure eGFR-ELIZABETH >90 mL/min/1.73m2 >=60 NO [facility] The CKD-EPI equation for non- [...] Mild decrease* G3a 45-59 Mild to moderate uhqnvkypV6o 30-44 Moderate to s evere decreaseG4 15-29 Severe decreaseG5 14 or less Kidney fa ilure ID Date Data Source [id number] 08/16/2019 08:30:00 AM EDT [facility] Name Value Range Interpretation Description Data Sup porting Code Source(s) Document(s ) Glucose Lvl 97 mg/dL 65-99 NO [facility] BUN 13.0 7.0-21.0 NO [place] mg/dL [facility] Creatinine 0.66 0.40-1.0 NO [place] mg/dL 0 [facility] BUN/Creat 19.7 7.0-29.0 NO [place] Ratio ratio [facility] Sodium Lvl 136 136-146 NO [place] mmol/L [facility] Potassium Lvl 3.8 3.5-5.1 NO [place] mmol/L [facility] Chloride 104 98-109 NO [place] mmol/L [facility] CO2 23 17-33 NO [place] mmol/L [facility] AGAP 9 5-15 NO [facility] Calcium Lvl 8.3 8.3-10.2 NO [place] mg/dL [facility] ID Date Data Source [id number] 08/15/2019 04:31:00 PM EDT [facility] Name Value Range Interpretation Code Description Data Supporting Source(s) Document(s ) Physician No [id number] [place] [id number] [facility] 0U2wAGeB7F 5cGUv Center Ov2hnV0LPQ NlRm9 syN5BUSr1H XRpY2 SuNP6rd1Um bmcvV 4clVN7moJP uY29k bO0lGa4BZA 5kb2J qCjIgMCBvY moKPD wvRmlsdGVy L0ZsY NQkVZAph5P lL0xl gge3aTHrIN 4+c3R yZWFtCnicK +QCAA XjBRzKDW2d c3RyZ WFtCmVuZG9 iagoz AVQtg9TjDc w8L0Z rsYHmsg9Nj GF0ZU CwG11rNC2A ZW5nd GggNjk+PnN 0cmVh lGm7cHWQ3R rk0o/ INFAwNFAIS eNyCu EyVDAAQkMF I1MLP XNTBQtDPQs jhZBc Rq7UmJTWmD h+Rad pUiaLo3qGH yAXAL EsQw5VUE0v c3RyZ WFtCmVuZG9 iago0 IRAia7NhDm w8L1B uN7VXb5KfO 1VzZU 5vbmUvTmFt ZXMgN SAwIFIvVHl wZS9D CXSalQ5pD1 91dGx pbmVzIDYgM CBSL1 CzE5EbDWpc MCBSL 1ZpZXdlclB yZWZl zmYnS6QlMH ggMCB BMb6RIP3em 2JqCj cgMCBvYmoK PDwvS 0hyj3n5CQR gUl0v TSihKA3VFW dlcy9 Og2OvgIBaI 0lUWF WkSh6zXlfo Pj4KZ N9ov6OuByT gMCBv YmoKPDwvQ2 91bnQ hUL2JiQBke CAxMC AwIFIvTGFz dCAxM CAwIFI+Pgp lbmRv YmoKMTEgMC BvYmo PXz0WS9SHS XNlZC AxMiAwIFJd CmVuZ I2qhkjnZzR wIG9i yxu1QH4LaT x0ZXI vRmxhdGVEZ WNvZG UuRWZgF9Kb IDI1O TYvTiAzPj5 zdHJl IW8UvGbvvq dUU9k Wh8+9N71Qk hCKlN ScbSSIZR45 SJEuK CatarinoJESindhu iNkRU cERRkaYIMi jggKN DkbEiioUBU bHrBB xE1BDnQTpZ SWStG d+8ee/Nm98 f935r c77U7Trhmp a6AJD 8gwXCTFgJg AyhWB No66TGjAhf YAcBD CZTQ9xZ1UR zs0IW +WLStWA10M xsmRP 7O187CjA8+ yrTP4 zBAP+flLlZ IjEAU JiM5/L42Vw ZF8k4 PVecJbdPyZ i2NE3 OMErOIlmCM laTc/ SkE3j9kLOD OfMyh IaYe0HV6rK w5Nwn 8690Iq6XzZ AZF+c I+LkyviZjg 3RJhk DGb+SxGXxO NgAok nsq3uUULOi tY5Io YfPu41nF2S jJX/D AM6nSmnDYO 8XOzF ouEiSniBkm XFOGj ZMTi+HPz03 ni8XM XU19uLUsTm iZGVk s3EEKMu/8W RR5bR myIjvYODk4 MG0tb y9b8K0d/Ju S93aW XoR/7hlEH/ jD9ld +tW7UwJMnk dn6h2 8nDARa8fDX u/2Hz WAvAIqyvnU OfXEe unxeUsTiLG crq9z xABnEx4slZ +jv+p 4Cc4SomQ6C vt3v5 SR914O6xqK xQ143 leB7rtGKzB 7icPk M5p+H+B8H/ nUeFh V1MI0RG1EG RMumT CBMlrVbyBO IBZlC gnO5e5i2H5 P+pNm 5lona+BHQl lgCpS OkBG2rQKcs ESAJe 9Lx4Y78C8X [place]/nN x4QOwA10v2 L+fVe 1EV6XScH/j mNHRD X4EbPA6Hw6 WgI0I ABFQAPqQBv oAxPA BLbAEbgAD+ ADAkE oiARxYDHgg hSQAU QgFxSAtaAY lIKtY CeoBnWgETS DNnAY cXRe2QQ7Ep 6By2A C9DOHUB0kv CnwCs xAEISFyBAV Uod0I EPIHLKFWJA b5AMF QxFQHJQIJU NCSAI VQOugUqgcq obqoW boW+godBq6 AA1Dt 9QLpKQ0ZXm HIzAJ psFasBFsBb NgTzg IjoQXwcnwM jgfLo M7jAFtC0xS 7oRPw 0kxXWoHT5M nEYAQ ETqiizARFs JGQpF 4JAkRIauQE qQCaU FeaF1qN1gM SJGny FsUBkVFMVB MlAvK DkSR0wKJcS ahNqO qUQdQnag+1 FXUKG wB8MGIJlvp zdHO6 IF3UQeBrXj uRleg j9Tg9JCwKu Q4+hU Px1DglNZFL H9MHC YVswKzGbMb 0445h RnGjGGmsVi sOtYc 64oNxXKwYm wxtgp 8ZTtEorL2l n2DI+ S4kIL1T9e6 Togrx FXgWnAncFd wE7gZ vBLeEO+MD8 Xz8Mv xZfhGfA9+C D+Suzy FcQ1aRjmKD QiphL cTG7FE0D5i LeEEk EvWITsRwoo C4hlh YHRH1Emmqk iVRSG YkNimBJCFt Ie0nn VHaJu0zu1c GZA9y OWyV4nMeUh 8h3ye /UaAqWCoEK PAUVi vUKHQqXFF4 pohXN RB6ZLbbdX8 YoXhE cUjxqRJeyU iJrcR LSmEBl3OR5 YbStD FZ1KQ3QFnE ebNyi /EG1DuBREN I4kPh UYoo+yhnKG NUhKp EIMX29AORO upZ6j gNQzOmBdBS aaW0b 2iDtCkVioq dSrRK nkqNynEVKR 2hG9E Q0Bc2Poxv+ nX6O1 FcFG4Lfijp 1TbVK 3td0wsqbli x1UrU 9eOB2J8oI8 R91NP Rw9q0fr/TQ GmYaY Xr4Ggd0Xsl 8XQOb I8HAT2vrhs H59zW kWANRYG5M6 ju0xz ElFlY6rDEl tKq0j pn8JOxam4u naq9Q /gP8kRRQwy NR6Cz Q+ekzmOGCs OTkc6 zGKKwghW2f f11Jb v3xeT1Q1uG elF6h Ejxntb2Zcj s/ST9 Hfq9+lMGOg YhBgU ZiIs2HyJNS MMUw1 2G/YavjYyN Yow2G HUZPTJWMw4 wzjdu Tl0oAcHaX8 lm0mB yzRRjyjJNM 91tet eTCpH9WeOk MRsyh 27wpIJgx33 HLdAW ThZCiwaLG0 wS05O Lu8pffvvBI YMtCy 81CH6UEBbY W22z6 tb7bR9flB7 daH3H euYWjAQe05 Pzq62 FGfv9jtxxJ PJc37 km20uCdU1i bse32 1Z9668dU7G /wb7X /wGZg1XJhi 1h0tH BFmZo9wRXd 8YKY2 9ddQeST0f6 rXY65 wBF9rEO0Ra Y+RcX qgspH8rNr8 nG8/j vOcjVzea6j lzrXa ZmHZuYu20u Unddd 457g/sDD30 PnkeT i4AmiMmn07 HPZ17 WXiKvDq/Xb Gf2Sv Sow3Twg7lK e9CH4 hPlU+1z31f PN9m3 0CiIv41hop 8pf7R /kP82/xsBW gHcgO aAqUDHwJWB fUGko ORL2PXXgu8 CRcE9 IFYUYLx3rF vzDec E79zGanHE9 O2h98 NMh0yTgH+O CQ8Lr wl/GGETURD Rv4C6 YMmClgWvIr 0iyyL jPCcUHxR5z xWjE6 Kbo1/HeMeU x0hjr SETgn1Q95r TxHXH Y+Im07dhhz f6LNy 3aChQKfN10 foi40 C3wv9e4ztb vvj4E sUlnCVHEtG JMYkt ba25xOlPhv TSgKW 6S5a2sR1s5 hOeB2 4Gc4Hovl/n TyS5J pCsOAd8Pu4 ePJni mxTT1kJNQt QLnqf 4h5zhki2YD duf9i c9Jf26S7hA mHFUS BGmCfsytTP zMoez aPRFx6PQpX ftXDY oPdQ2MQTIe 7K7xT IMb6NDqYMs XjKa4 5ZTk/MmNzr 3SJ5y tlLtNXmR8q 3LJ/J 9879egVrBX dFboF xjhiL7hatR +lXQq qWrelfrry5 aPb7G s53VeEX8eI t/KLQ zVG55mC0oX U+RVt NqerP1vxrb ixWKR cR3HytwyLa I2ijY USyp6kwkWK 9LeCU FZ67YH7crq +Zuvv oMpNsRC73g krRls VzuqZ0DgWq h1uvb 3LcdKFcuzy 8f2x6 qbTRDU3iWg pc7l+ u2GVQYAxiG sEuyS 1oZXNldZVC 1tep9 mJo2KO1NRU utZu2 r7nf3zemq4 PHY01 utEWnr611h YO/Ne r/6zgajhop 9mH05 +w69Lbu5u8 36url Ma4u76zF+4 X7pgY yAxp7Tla1j mi1lr XCrpHXyYML By994 s0Cjshlzy8 e3lx4 ChySHHn+b+ O31w0 GHe4+wjrR9 Z/hdb Vn4r9NA5ju eOdWV 0iXtjusePh p4tLf Vputre7ga5 x/TPV WeHYJ25FuC iaITn 07mn5w+lXX q6enk 03W9P0osjK k9c60 vvG/wbNDZ8 +d8z5 3p9+w/ed71 /LELz vtUPxDh2Dt kcKlz kG7v0kv7Lr oGHQY 0duiMfk98U e4Znj n41mp8ljDR va+eu uIv0kVD/JH h61HX i82QaVN1pb v56Fb 3scc1t77Z0 FlzF3 510P1MqYi4 mvcbf bL6zJ2xDD7 +6j06 7BTWpwka0J EnP2X /1Q903MP1N cWEzk YeE9fTjdS6 Jy8/X vh4/EnWk5m nxT8r /5p8xIRTw9 94/DI wFTs1/lz0/ NOvm1 +ov9j/0u5l 73TY9 Y4QAg8sFfy 8UX9z 4C3rbf+7mH cTM7n skc7hI9x+6 PkY9P Vny4pPa91O 94Tz+ wplbmRzdHJ lYW0K JX6xl6CzUo EzIDA jy3SqErb7F 0NvbG 8uM7PvT5Gh RGV2a VPbQ8QjmY7 IZWln aHQgMjkvU3 VidHl yWA3GuBUuR S9GaW c3DCPxNhlc dGVEZ WNvZGUvVHl wZS9Y K1RpBRY2S2 dpZHR jSHY8Hc1NJ W5ndG ggMjgvQml0 c1Blc kNvbXBvbmV udCA4 At3fhBRlQW 0KeJz twTEBAAAAw qD+qW hYY2AQXHNP AB4G+ 2OKjwplbmR zdHJl FZ1HXT1sh7 JqCjE 9OEPch2LaN jw8L0 BbzS0tY9Mm Y2VbL 9oUY8Yfe5J kIDEy BJFdXo5jZO VpZ2h 0ESA3C7M9M nR5cG LrLN4jV7Sg Rmlsd CDkL2WeSOW lRGVj p2NiF0Q4bI UvWE9 bfnNvxS3MY WNvZG VQYXJtczw8 L0Nvb HVtbnMgMTg yL0Nv mH8wlrDjH5 ByZWR gY8MpnuLzB S9CaX GhDSBgP15h cG9uZ W50IDg+Pi9 XaWR0 aCAxODIvU0 1hc2s gMTMgMCBSL 0JpdH GWBLJAv28r b25lb dHsAX9ZdtE lcnBv pPR3CTF3kt VlL0x adoi3sMO9V DQ1Pj 9mhNVeKH7W eNrtm wlUVEfWx2/ iJHMm 0bhGWRqatW VzwSW OE+PESEKMi iua0T gaYjQRjQIa AiKgQ NN00/vCqoC ANoLs h7EVjafYWs FlURF QUUFAQJRFY Kq6ka UvxssJA45P d97R4 +t671Xd+tW 9/3vr ME8xzWDNQ2 r5x2e oP5q3VZQDw eTElf KHr65/12/X xaRXh ZPDlXtU8Lr 4qOf/ qdRr8hZ1XA M/NQv 11Oa2GpSO1 zc9NW mZV0/Ps75G kRfLF Rb6VAwRgDc Eoj8X gG4QDbuKrI z+1fe fC0uNVfxtX ChRQI lWFKodql6x uL3+1 5kHr2PlGaT pJZWN Y96/hqbHqw +Gw6S lBH01cpuKF ZbxM0 394EMHUHTZ 6hCDy M2dOmozmAG Lc0Cd Ldu1kUdG1R K8rCv 3BjZqbHmam le12v UhrIOPux0q 7uRl3 hGppTdrGl5 1/+qb Wr/CD2ZkLN D0AkN E0EXB1vFy2 ARQp4 JsJLV9SZY4 5ojYe afADFeYQia fzJT4 aYtDLEwmgx I5ID7 /zUZE/JeZU xzo8E MWw0LhGIhx XS6eJ kAa8c56s6S Xja2P YIvPz4xX4D LudVk /Vn8zO0B5a hyRlQ eigcAEJWpq boXUB mT/DCAwYDr N1f/3 NwWIoWbsRY R2shC 0OehkBOYNc 7/2xg UB0BEz2ZvG 9tfcd j7Ug1VQQYm RL/YJ dzqnyrrXVp COPN/ LUvSna3z50 SOLOMON+6 EX32zG8vAW EaCgk 9VS1unbo5o p2ujn WOmIuPrlix Gh+uc P5udJuGIMD QBl+u vv/bJdUaDH k4rIC hnOcUk14o3 h615u KOZBt0yFRv dr60G HXEM3ImFT7 giIFJ rhQDduy5O+ zGkJM AVm0F20MEP 5/X+F wK67Iufp3l 4YUGM mZ2FVM5iK1 UKECH sMETHcGgT6 yKVxP hQoIcz56A7 BRXCk l92Csv+yfO ymJoC KO+prCpr5J 4vInz dqjPaEgQYV JlrDF Hsl4xO+0cM 90FqQ jrInUHKBqW TQpxt kE4yezRNrQ SPzCJ jhjqXoLIHh 1rD97 lk/kdPRud0 hNS6z lulCAb33GY 7vNOg ygOhGWHUiL vOa/N T20l9XaXua SwkUl RQR6R005k8 UiCGX 8+5iSZcTlF gwbhF 2MWN97Levy m+8L9 ZSkau698qU ZtPDU TCLDePtYJL 9B0s8 MviR3wN4z+ 0/dlF gwIaPbGDCY TBgfr U33D+uoOtZ W298I cfCNNGIZgt I64QW 8HjrZRe3lu Wn3Bh EQCNuZ7VK0 w+Xsa 0PMkGl1Og5 xxCY6 AEp1vv0vJO 2KTL0 mCOwt5c0+K zrvwn VjeHim2uq7 EvF1f IgEphQ/JV5 nKl1M r4+P4B5Skr +UNKq Awno/OKnmN OJN4Y xtfYGE6L6M mdh4j HDJDG5w68Z JM40K skuNG6ETX1 5OGzN 7kUo9hS3Wg BywRk SjQ4ismHkm 1Wb2k SDtiuoc+Bj mkTjl beuLh9QTm9 TgBID rM2ksynSL1 p4pMM UI7xznjYX2 dwNJM NCD8qT2Hki GLRor 98BBRcgOsd klImv gWCpV5A2dI Q6ifx u/CBnQQ7R9 XBIA1 0ezPEgrAja 8GuvG ZEu8Yu+Joy IzNsW KPeE9ff9Xl eJJr6 ypu28A7The ZiMEp juBDMHhedn 3U9BA +XegtlbA+Q PNN09 3aDCABLHyT dvhEC naS5gdnZ81 qBGO8 O9PTSzBhV1 aqt9L IkR9TpjJBh 538a/ vVZrgP2wm5 28ZSH KJa6D7zrwR MHYvA t/CIDJzmg+ 8MIdY kx60O+g6Ya iGP6V vP8Gi3NzGg UJFN1 LA6ZecI7PQ Wqcj7 3XZXBHJ71J 4xOVL 8nNZBdmcOG glspo hFJ7ieskZT euDDN SeP6qKmSnX GaCCk r/1Ryy3Qd1 lJJ/A zSYoOB6+0G /DgA1 CklfuMr9Hu 7fNAD MMGUl6Ioak empGB Eb/uUREEE5 s4YL5 eQlyTCMLI5 8iTo7 +GsGGWY346 tfnEK TuE4+l+Wla l+UiC r+Kevc67Db FXTZu IIgwyV/rosales E3zIE tnBSO2sLmY YOu1A frivbh63gU kPWCE 3tjZsFZXeR 60LO8 yP9miKZs+w qod7E iIwkV+d4TD E6MXO 9UNPkVP+5p vfU3R jy7j/5UkcF RCqSb 4A5zmYLWBe uDczk 9PVKDr4JuM wNH9r O+vbk6eQ/h 8hAIb bLbMErQUSN VVxxf +ivlXfrUAx Ck2HB SpMrasznYN q02B5 nC+VEZLtDC nbj+o J/5wC0FNe0 8Cwer AxECstrxDJ cApFx i/wr8IS2JA l9I2E 6oNP99v97w XMHyy Ad/janaImW 8Zk3y yrrRo+IHt/ EMsrr vHp9oIKLor U6/aL Cvf8er05d4 FH5xR egJYgG4+h9 SXq/C a8l1hL7CC8 XWa3d PK5BV83nte oVIkJ sllXB1kjKM Yf3X/ tzciGCchlc xGOFn i+UF1HeO9R IGPD1 HqQ8AkdCBI 1NiSx Sxu95octUM pGrt+ 4DgYZMtHJ/ tIzaJ myQCFH4gJ4 UQHEY EtPhFX7VXS 65ENH ciIOMW20r5 VICzc g1oEbbFnn5 JTWS4 r+tbZNtpFg HjVvo K1IxP7vw3r oRkZX 8ecEZ1AyuL yILuW IvwhFekduL pIq8C P+xaZj2Gh8 4mjoM Io+n23OnPl SIo88 jDEJ1BUGl+ epnXZ 2OvulAYmIF o0Ttu /8BTrjcgi9 qMzQ2 DN9dms1NIS 5Aruq aCnFSgDoxy QnAEc CKmWgOb5ga vh3Ka SM7hq8T6Po YJ6fk Vmw+EgmGXO yl/tq XhNo4b9lHy LUTZM iAtLx0n+K9 LV2e6 Q9vmuGC8ZP Fkc22 dZq2PHXGES 8y9bt 52N5EVL/Gp kYnOA 920EA7uXjF I1+Cp diD412ub80 3IgrG irogIiEO2c 2jrdg DrG981rTDk Alamg suot64ztzH vxAit oOmo9VZmHj D0Uh4 Im+3/mCMnM OcYey GEu08m33Gb V8AkY 0lj0vBCgnN dWdUd fEKizrIX1E IMSgk QhfKor7IqN AiOaN FRGejyIsQm QWldf J3+tqtuxOX C+D9w 99Ynampa+r NnL97 cblq+7q8yI mYIiR EYLbnJCO+v HURZQ pe+hb8anj6 L+VFb XEcWFvuU96 UM+qj b8FyMHi7Db U71wu zo5iG7a4KT IdD2o tS3Y6HUOPp KLyqt SqzSiGIj5z CXJhG AXVKbeOjwX JVpEX mjAKRh4+ei E1pzX 15RJLlnXKC qBapS P992aEv2+S ccizn kYqczxwkUB xFiBD aDnXgVFw4q +0dvb OxFtHhmTkl 97zQ0 dFucEbQV9C Y2J3M MZx3jy0xzq 5vk13 a1TLMcDUWs 8DAQ8 DGckuh7bc5 YRoZI qXItlJN40q FiL5H YcuPSFfXM5 z66/C 2OyS+JCLfO 56X09 CrLMPxatbm Oh6/O FEjG8ICaV3 NzQkd OGa3wKYATO 7i4GG ujEZw5BBtD JH+PP Ne0MTc4XIt PI8mT z+Lp5vgjlw lyF9b hOFVrcHyjS ocwD0 Z9dPo5+iX0 iJa66 Ts8IA2VUHW hZZ4e eQtbzOnRBw U1Vh5 JZJVCjAUlR wI7tI QicaIaEmhB xRoSM UgNelS9NkY sFiMS OmwSe/3R5P kXo0d oErBjoEkOV Xup3I Dg9DzfwTYl y2S3K Q28fxTKGal kPFnl ZQtmPoWcbX G3mNQ JdBTNM7M2g iyHb0 zR+yxi2cu9 2wJlj 9oCQibcfB4 AQkzD a1dMyRg5fS xC8gT J9XWQA9TtN 0+hYQ Fzpfi4rlL8 7yzl3 XzL4An9lci tl6mX Jpy3ky8Evc Z1EEB 7XcxHdmL1k YYQqR Y9i2HacuDM oYgZf B6bQJSTWMi rPe6B 93ZJ0hSztw ZiOjx k4TWvi6cH4 eU4TS KdC4kE0f3K m4POM rU1ziy21oJ ngcoU GsnJma04Az t/LGf Dn+Vg7NlLX O+CJS p3XhA2z5FJ lStyS 9zvCyQJB8Z Ip/7X WLlpmSGk4F 9yksD WcA4eDiYrt uax6S c/p0sdRN/L FNUXa UjstoyUvxh 4uoDw 5n30Gki2sf GKyX/ hsRPX+2Nxv k3Wli u4W30nQR8B CtrHh 89rMAfxn7/ aRftQ eTguiFKbvG eUy8K tKAstCLjsk vwR6Z aHEGYJKnwi ejhRG Ztg+TXkN/a xWC3R GLvYyQNqDL 107Ba MUoC7mrNcW wAJCH F/Ndf8ImHl Z1yMh M+wrt7Rtp/ LXZ3d aP6t6afEEL brBOA yIAZlCvlD6 Tbk0j BypHItGJdK K+sK6 co3G1iZary jVK8m PQyvFmIFow 23YJ5 sGn36Lj7b3 Q5goy vBQU2JmA+c 4htff G609l5w7DY 5YA6+ WXpBS94pVC wMY0c KLntgnemkD ZYMKg E9BxlTGEg8 FlrE9 L24I2mZiz8 yVpuH gjnp4UQbYl uy80j rXApuv+73M LrDyz ZKRM/98S7L agN8j ckqplTQmD8 1YHvO MBMwR/akHh 4AxMJ hrdWyoD1V8 rhIye WevDT20IX5 puOmx r8ouENv0Pw FAXH/ Ks14PNTBqk q9AXb zuhsEFbceX iIk05 s26c6iYIcN bzQZ5 gzkuKzb/Y9 ra0NK VYn/HGXGl1 1lf/O DqtEwG5YAP Gf0EC D4mVvLMTjD XFR4v xscAjpLM9d DT5Xb B13YoDdzVF wLKBr r/y9YZH7IA fISUl kFqUL6CD49 WhvSE fG34SQo06R A/6/d qmRHJa7rCW TL/Oz e+/oXJjugs erzcM LQYZSo5hmt 97Q/L c8WvPFn4f+ kQVTX VAKvU2ORVU OuIJz Bw7epHKxe6 DGx6Z Wp8BEJ/joq PH+8M 1HcXLUjs9I RApMd I4LYe7j1bS FvmYj 0wAB9VJh3w 1PHku E61VJdu+oz ppq5G Y1ZX61THZ5 /SigJ FgCn5kWDum vRP9c azlI+mUX3t 9kfX4 PJbOvzS+0r G1HUt 0DJTcpGptb dlHOT Dn9IPeXXtO city council member+l T5lxsS35z/ Hs3z+ IeED6sbCAm fx4fP 8mbWlV/XuL eWj8H xaisaI0WV9 v2dQ6 +WfX/lfvo2 ZtsU0 JTiiVeO/SX UJYyA CrD5vVO4yh 9r7Is a+xTNzlnNF 37wH3 8B1o9lgCys Gddar iW1vRT2oTc Q1+Jm afL0OY2/h0 VO6Ee jKBUHz70Q2 rhO97 o1uxBfQERl LX3jt FjoBVTFjpj 7/M1a IiV+8R0Stp a2pbY X3tQh7mFU+ WvOuw 1gnRFigSh3 r/e8A CPlpUlKBLE jE6p7 S5p11T7j/1 xB8P/ U7VIUoabtw gnJZe Q+tnmu9uPa bOJ1z M31zel/vCq u7VQ8 /bY+yO2/ce lVU2N O2cU2LSLZn ouNt5 XXzTB/UWkV d13Kh 6CEpUnJXos Y6dyG xrf/oWkbeH 5FHf/ Wwg62UNkoj B4Dp+ lujvb3kiVT ms0D/ AMfCtytV0F eTtgQ 8I66LFqxG3 CALKb mgwiQLKZEt O8pvS /0iEnH1P5l A552o tOitrmt+sn v8Plv DC1ExplnDq dHJlY J9EAE9er6T qCjE1 ZFAxw5VpCs w8L0d ml3IeLYlgH y9Ucm Xgn1NqoaHz Y3kvS PK2qlQiV4y gZmFs d8NwG8DnRN EgMCB BSq3yN45ap GVudH NbMiAwIFIg MTYgM CBSIDMgMCB SXS9U sOCvQ8RoK6 UvUmV qb8BqQ7KlV DwvQ2 1uv3YYgLPs ZTw8L 9ThFoX1gEW SR0Ig MTEgMCBSPj 4vUHJ mS2MarTFfH 1BERi ApZLB9yKCn SW1hZ 4IESP4FhIY nZUMg K7kmOFmlUR 0vRm9 yuRs3S2jtE m8gMT qhLNJSR8if bHYgM WpyUHYSI1s pMCAx CBGgIu9BAM 9iIDE 7JIAqSq6+L 1hPYm vpV3I6AY0o bTM1M cN5YWZ4AXS gUi90 LdL7LkUcUM IwIDA gUj4+Pj4vU GFyZW 50IDkgMCBS L01lZ QueXv00GtS gMCA2 MTIgNzkyXT 4+CmV cBM0zdrk8X DAgb2 FfYcg9P1my ZHNbM TUgMCBSXS9 UeXBl B6VlD7FzV5 NvdW5 0IDEvUGFyZ W50ID oeIRLLWj5W ZW5kb 2JqCjIwIDA gb2Jq Isd8X2wym4 VwPDw hZx6PboUcr 3Bhcm PiC4rfP3Jq L0lDQ 3Teb6ToCVZ yIDAg Ul0+Pi9TdW J0eXB jZ4Oqht2lN mlsdG TnQ1KvOCBb RGVjb 1IyW4W0qGM vWE9i bjAktX5WPH RyaXh bMSAwIDAgM SAwID GfE7Mqbc8H eXBlI EUxFfDxg8U yY2Vz PDwvUHJvY1 NldFs bCGBFF6Grm HQvSW 2wJ7ZMK4ag YWdlQ i5SnZWtPIa dL1hP UfirQ0C4BO 9pbTM 7JvH2SRM1X DAgUj 4+Pz4qRtBg eFswI DAgMTgyIDI 5XS9M QU0ihSqtWN k+PnN 1tmNafBv2u NPPzD F2WEj4JICC BwARc gLfCmVuZHN 0cmVh bQplbmRvYm oKMTY gMCBvYmoKP DwvRm zmlDFrU7Xa YXRlR XOfp7EeS6h lbmd0 yUIfDAz8On 5zdHJ rJP7LfAwVQ Vtv2z YUfu+vILAX G6gVU ndlT/GlrYf ayWyn xbYMgyIztg ZdXF2 Stb9+R5RIy o4tV1 aHNXAtUiTP Od+50 pf4JpIIFGP /1UG6 mfpUDe6Z1W 3HtpE LLmRxalU7s MYx+v VNsZqtJUjD JrIMX KCMnpuHD3T whbCC xSfZoKsPdB gjeLt 6EvswGjiKB idigl ssC11S2gud /p9o9 csbhCarNwd ENEex fT0IMaItcd BPUyr D9GNYG6Svu ATPiO ADGpZCbHb+ jefFe XM92QV2gDX rEsrE 5EeMsd2stx 2SQKV WxOxTBpb9Q OKCzG iUuQEffaBu kG356 N6of7RMttS x+3Q2 myxmN/P5W0 7w5m4 x/mrOx6ImC c3ois I4XeoXh0Rl 0DM4Y +tyTZoWFtJ kcUQD 0b0Kjlc6eR Pecx+ kYl92DpspA jyMb4 fSRsi3W32W xSB1e 92V3GbzUG1 Wi3Fn CYlZ6SrvEs pzk7R Lj7kuPW5zM zcp6B o9vAiIJGp/ 8SeiG qo+aFRaJ/I fb0dg RaEsUQ6i54 2xxiw HxCgzY0gFZ C79Z/ JRCGV1nXkN xh3C6 wp5SDWGFvz pm4U6 d2JCqvj+Ur GKT5s F2NPFSNtF6 ejDze F2uOlonVRT U71YV ci9vImYTkQ TLeiX zGErGV7emx 4pFmT rijQx2Bcrx GZj8u aI8J7Algp0 P8qkV M7vuT7f/GUANAKITO eFq1U XxfKYCJaaS Lcx51 rzeGDyXjVp FSTKJ W4mfpJwu6K XVPRT LMFXe90tIE Zx14e UllmeDFkZz 9Ka+M xaz8VlVwwl 27m17 d26EXLpQSQ YPA6j dyvs71isVm k6e6S GGJlNjE3Bp OED6p vjENN8dlJk rSW+Q 2EuPwVp7r2 pY9M3 CITfS2om/A 4F+ck XdxZQ7hjGO VCZRQ 1Ci09tTYp2 VbUS5 WQUM/fFTCK YL8Lq LoAUAS2p4l bL5mm oqcV7Qzk9G qCx3T nco+uz7vi6 aFn68 LYF3UgvHcs YKVKo zla0NzNgZi rQqMy frWQ/8QOKF ht27H 4Dsz+SuRuH 6utfI Kfviby5RvF aACU4 Od82jjE/jX 1Pd8V Mo/yOH7T38 VkPb4 rNlRKUMjv8 z3QFQ U9iKODnG1E QmSAf oEiURUHBXx UfgV8 dfl/gLZw9A v6jCK rWEB7Zk/hy 4D1GI 9sbnqELgp2 gbCtL 2hZMPidPBq aVTEE q0HyXDx2fQ vwHNQ kGRbbY6i6R J+GTh FRQgK2tyiq MezIc R22cJ+ZI8x +N6xo UOJZsArCQ5 pwCJ+ 7jNPX+j8Ks NBAcG AgTbwSSzlk lU0d4 5SwVgfXy6J jk0uL 8iU7hWJryU ryZtZ OYgCqIOr97 V5Ksz lPAr7GcDCd 3qfpa DUbAPf1bNC 7uVpN o0sfaDdQKi 281kQ bfV4eS0KW0 cVkeQ /tLIGcKTS+ XJXSc gBsa7gW0Du DDVN/ LjPUQ+9TH9 mQznm a6rMKFzLBW hwMaC 674pAy8q52 MRM5c l6Mvq+/wd2 pL9zI Rjk0GUrv2e Ntv3f HzDOO/3YlN EfNxa qZyxmgbNLN Z6bv5 8sg0GH5X1h Q4lQV nsALPNZiaC 2h1qt VWVAUh6UAF kPvoI R+6Iuekmml USCzW +V7l0JY5gh BDcne 9ZMA7RIHEU C91CM lVmNxesfC5 kGZL2 w5UHTKKmId ZBAHo jR/itwiI9m OX3wZ YKsh7UoGzf Y9Wdt SB7ZyCeLHk TmZ+p sIAobnSkbq 9S47k m9z0gNXhR2 WZTSj BnYw1FaJb3 qpyEe +eILKulhcW VdG01 D8BqsX4YH5 urxdc 4OcleFKcXK l1ANr Xk8uUUNv2S 6j/wi NcfkLJuqyP zKdCY lJOSDH1TDH t7IXk O1VehIxRIe 5UxXS 85D3F6HmGc 9ixsC dp4S7PK+52 Olt3W mruCx27HYo WFmhW tsZR8A9885 N6kce rekvErwXy2 /FupD R/9qkIYbNl rbRER SCpulgiBgt dZTUL lPoobPQwI8 20kv8 D6d5XOb/ym KJXc3 THRz7KQyTY ZbL0z htlTJN8rNz ppKdr trTs36swba 5uCcR XKbl+f/ktf 48TV0 q97O4dGHX8 bhd/j rUCk+p6IoR N/Qjp hKWX1uD9uq PLGAv oSsWsC6/ap 0jAKK whzipBQSAl E1W3p /JR4m3RxV9 9QI4t YIAEwWbTlv 5WwYX 3cGQDhxMWq eDBfX iMASkGLjpd Ruiln NhRPtc+oUI Zn4gr LnO8nXBGG4 Fz0q1 j8Ms6L76Wu PUhh6 7L2qDVSFGI 1urC+ K1SMJBK7NZ /gyGl b9Kjc9+uHP ldZAX xI/rFzp5j2 TCb4x qmZWDM8uPH jU7Ta ST+t/y5AKj 1A3rQ i0mb7r3fBj 1N9hH hUEQlAnoZZ Dv5LJ 4TUVavmz70 1kuLw l6eSjDIike 61Ygq xwNl40kSO5 fG4Sc BNTLkjgqUm GwVxT JdM4LcWGim ENTu+ +U9oh4m4X/ Rk6we zY30Eq82Co VM6/L qgl76n0uCg ONumn +W0fQEI6CY f043W nmYXXajpMz HR+/r pbk4g7AwlR vJ/8C 6SG+cgplbm RzdHJ uLA5EJO5os 2JqCj T5WUHmy5Cz Cjw8L 05hbWUvSGV PYi9T hIM5rEOnQ8 R5cGU wU6N8jLBxP m9udC 4FJNGiQf6x dC9IZ Zb1WWBoQ0E tT2Js sDF6CX1Jtr NvZGl rWi3JbT7Hr nNpRW 0zq7Fsaoc+ Pgplb mRvYmoKMTc gMCBv YmoKPDwvTm FtZS9 ANOGeC4P3S nR5cG UvVHlwZTEv VHlwZ H0Wb594R5K hc2VG n576P9sfwH ZldGl yWH1An0fsU 0VuY2 1szQ9aH5kv bkFuc 2lFbmNvZGl uZz4+ XcWlXT7eui oxOCA xOP4ejyq8N C9OYW 8eW9ocgNXa U3Vid MawRA5YpEF lMS9U cXXjY6Tbeb QvQmF zZUZvbnQvS GVsdm B2vIUcO8Ra Y29ka J3mX9wpukW uc2lF bmNvZGluZz 4+CmV wEH2ybls5D DAgb2 QfSjr0Uq5K ZW5kb 2JqCjUgMCB vYmoK PDwvRGVzdH MgMjE nFUTADt6CE W5kb2 JqCjIyIDAg b2JqC pl3B8PpRFM gMCBS F0wUJnVzLd A1OTg gbnVsbF0+P gplbm RvYmoKMjMg MCBvY moKPDwvRFs xNSAw IFIvWFlaID M2IDU 5NSBudWxsX T4+Cm FeFB0cbynn NCAwI I2kvwq2TG5 EWzE1 WGKeCw7LNY ogMzY rHaU8IM89i GxdPj 8PDB5st2Fh CjIxI LVfc0LeGeh 8L05h bWVzWyhfYT NlNGU 1MTctYWJkN C00ZT BmLWJiZGQt NDdhN DRhZDhlMWF hKSAy MiAwIFIoXz E0OTN qOoR7WMDsB GUtND WqSV0fAlXh LTNkO WZmNjgwZjF lYykg MjMgMCBSKE 1LTUc tWZj5u0xyu WFuIE IdboW2wQJi IDI0I DAgUl0+Pgp lbmRv YmoKMTAgMC BvYmo KPDwvRGVzd ChNS0 1HLVBoeXNp Y2lhb nKQj18gnCc 0KS9Q YXJlbnQgNi AwIFI tXDn4oOQ5L mVmZj AwNTAwMDY4 MDA3O TAwNzMwMDY 5MDA2 MzAwNjkwMD YxMDA 2ZTAwMjAwM DQzMD W3BmKkGmEi MDczM WM2DKOsZmB wMDc0 Pj4+CmVuZG 9iago qSKZrDA2xq go8PC 5Wj3NIJQDz KEQ6M aJpUBS7ZUH xOTM5 NTAtMDQnMD AnKS9 DcmVhdGlvb kRhdG UoRDoyMDIw MDQxM uV4Vrm2QZg tNCcw GFlpG6Jhl1 R1Y2V yKEliZXggU ERGIE UkKYS0v9Bf NC45L jAuMTUvODQ zOCBb LnMWKE0JB1 I7IG1 vZGlmaWVkI HVzaW 9fFUmXVIq2 IDIuM Z98RVU7RCI UM1hU KT4+CmVuZG 9iagp 4cmVmCjAgM jYKMD AwMDAwMDAw MCA2N TUzNSBmIAo wMDAw XULnTKX0RY AwMDA cQN9eVeEuS DAwMD AxMDMgMDAw MDAgb iAKMDAwMDA wMDE3 OSAwMDAwMC BuIAo wMDAwMDAwM zE0ID MfJQRtGK4k CjAwM ULqOSN1IGI gMDAw MDAgbiAKMD AwMDA qAUT7PHVeL DAwMC BuIAowMDAw MDAwN OU3BZArBZN wIG4g CjAwMDAwMT A2ODI gMDAwMDAgb iAKMD AwMDAwODA3 MiAwM DAwMCBuIAo wMDAw JSGnXJK2LF AwMDA oXZ4wSyFqF DAwMD U7QWCuPTWm MDAgb iAKMDAwMDA wMDU3 OCAwMDAwMC BuIAo wMDAwMDAzM jQ3ID QdWTVuPO7c CjAwM NPfSBE0UzE gMDAw MDAgbiAKMD AwMDA wNzczOCAwM DAwMC BuIAowMDAw MDA4N MI2EEQnLVS wIG4g CjAwMDAwMT A0Nzk gMDAwMDAgb iAKMD AwMDAxMDU4 MyAwM DAwMCBuIAo wMDAw MDEwMzcyID AwMDA hIN4dAlVqH DAwMD gxMzcgMDAw MDAgb iAKMDAwMDA xMDg3 NiAwMDAwMC BuIAo wMDAwMDEwN zM1ID WsIWFlNH9n CjAwM XOgBCA5JOS gMDAw MDAgbiAKMD AwMDA xMDgyOSAwM DAwMC BuIAowMDAw MDExM TcxIDAwMDA wIG4g CnRyYWlsZX IKPDw cXQ8btpWlF SAwIF IvSUQgWzxh ZmYzZ ZfeUIZ7YUp xNjll RrGhRRZ3HP NjZjI 1YZxeCx01R jEyMz hiYTRlZTE2 NzljO WEwZmUwZmE 1Yzk3 ZTcwMWE+XS 9Sb29 0IDQgMCBSL 1Npem UgMjY+Pgpz dGFyd HhyZWYKMTE zNTEK RXUDP2OM ID Date Data Source [id number] 08/13/2019 07:32:00 AM EDT [facility] Name Value Range Interpretation Code Description Data Supporting Source(s) Document(s ) [facility] [place] [facility]4c[facility]kQ5I 5cGUv Center Ay8mvK2PRS NlRm9 gxZ0DAQe9Y XRpY2 ThZX6ij7Tm bmcvV 7zyFZ0lwUO uY29k gI8xYm3PAA 5kb2J qCjIgMCBvY moKPD wvRmlsdGVy L0ZsY TKxZDXkp0H lL0xl pkm5zNXzWA 4+c3R yZWFtCnicK +QCAA FkARiVJY6d c3RyZ WFtCmVuZG9 iagoz ODRce9GvNg w8L0Z aoFFfab2Au GF0ZU TuZ11bUE9B ZW5nd GggNjk+PnN 0cmVh nZn7lLLY0J rk0o/ INFAwNFAIS eNyCu EyVDAAQkMF I1MLP XNTBQtDPQs jhZBc Ng5IgYZOmP h+Rad LEfgPo6qKT yAXAL B9Nd9UIY2r c3RyZ WFtCmVuZG9 iago0 OVHap9PvVq w8L0Z qhPUxie2Yq GF0ZU HuY85kFZ2H ZW5nd GggMTA+PnN 0cmVh xUy0nQbtZu AA7gB 9RsEaBGH6h mVhbQ plbmRvYmoK NSAwI R2mewk5WX6 GaWx0 ZXIvRmxhdG VEZWN vZGUvTGVuZ 3RoID seXt2njUNv YW0Ke EtOJCPo5OB PyDRU MDRQCEnjcg rhMlQ wAEJDBSNTC z1zUw LMOm4PM7NT XC6Ng IP5HPFdome 0BSPN xMfd4uXaWK 4AtIM P2BtlieRud HJlYW 5NLT5fg1Rp CjYgM CBvYmoKPDw vUGFn PN8kZWJnQL NlTm9 kQU7SFJ0mt yA3ID GbWi7KhKWc L0Nhd GMip4ibW7J 0bGlu ZXMgOCAwIF IvUGF nZXMgOSAwI FIvVm ccc4WtLQEs ZmVyZ Z9iJEAxBGX gMCBS Tw2MAR0ct0 JqCjk gMCBvYmoKP DwvS2 qow8rrGYUi IFJdL 3W3iFMjPOG nZXMv F278qjAoMv 9JVFh SCXShGQ52Z T4+Cm UiIF1rsdh6 IDAgb 2AdNjp5W7X vdW50 IDEvRmlyc3 QgMTI iFBMQK8qss 3QgMT CsQWXCHt1L ZW5kb 2JqCjEzIDA gb2Jq ClsvSUNDQm FzZWQ gMTQgMCBSX Qplbm RvYmoKMTQg MCBvY moKPDwvRml sdGVy E0KuUCBqYS Vjb2R vY7xqkct8n CAyNT x6B68cBt3+ c3RyZ WFtCnicnZZ 3VFPZ DvtRqXy6YN IQipT Mk2iHTcuOz UiRLi oxCRBKwJAA IjZEV HBEUZGmCDI o4ICj I1OjEwjQUO Gx6wQ ZRNRxcBQbl klkrR nfvHnvzZvf H/d+a 5+3i26h695 WugCQ /IMFwkxYCY AMoVg B5uwVbX5GS 2AHAQ zwAANsAOBw s7NCF vhGApkCfNi MbJkT +Fc1pd5r+f sq0z+ MwQD/n5S5W SIxAF CYjOfy+Nlc GRfJO W5JzAJ7D4t YtjRN zjBKziJZgj JWk3P aXCg66bxqV znzMo Q5JfkvyhUq 8OTcJ +ONORK+jJF gGRfn SAx3Zu4rP5 N0SYZ Axm/ksRl8T jYAKJ FmOnEiK4Yr LWOSK NBMCvY5VOS IyV/w 3b2EuA8Lkc /Fzsx oXtOck2dDI lxTho 9WC3hhq53R 54vFz ZSVG50g8mN YmRlZ HOFyAGbP/F kUeW0 KgaV27Iz3H DBtLW 2+KNR/Xfyb kvd2l l6Ef+4ZRB/ 4w/ZX fpkNALCmZb XZ+od taRUAXesBU Lv9h8 2aDsUGbl40 Dn1xH ho3LnFV2kc nK6vc 1ZkILS5mKA /o7/q xFt0WR0sAC r7d7+ VhePOTOJJ0 MUNeN 25meqZExMj O4nD5 DOafh/gfB/ 51HhY R/CS+iC+UR UTLpk iiPGy3Q7nB iAWZQ Jyoti+J+a+A/ D/qTZ wJdJ7mbV4S ZYAqU hGkB+HgAoK hEgCX kyP5MwnJcR RwP5z YvRmZid+8+ C/n1X uEz+yBYkf4 5jR0Q yuBJRzuya/ FoCNC KVCSPW5kYj 6AMTw GV7vBH0VZ/ gAwJB QYlJhKYc0S IUkAF EIBcUgLWgG JSCrW SofUW9dLE1 gzZwG HSBY+A0OAc ugctg BNwBUjAOno Ap8Ar MQBCEhcgQF VKHdC BDyByyhViQ G+QDB UMRUByUCCV DQkgC FUDroFKoHK qG6qF c9OyqEUNwp gANQ7 egUWgS+hV6 ByMwC abBWrARbAW zYE84 LT4OI0FI0G I4Hy6 Gy9BLhMG7T O6ET8 MQ2ZLTGs+B pxGAE KB4vaboEXb CRkKR eCQJESGrkB KkAml X2nQefA+5i kiRp8 hbFAZFRTFQ TJQLy h5SdhZdejA WoTaj fdDMFD8pRt RV1Ch qCvURTUZro s3Rzu tExUs9BP3D LkZXo SvNFooa5QG 0OPoV JxFiD3biyc h/TBw mFbMCsxmzG 9OOOY UZxoxhprFY rDrWH OuKDcVysGJ sMbYK clQ2CcaAL2 59gyP mqUU1EG6vO E6IK8 DZ6GziW6GQ cBO4G mqO0gWmnH/ F8/DL 9DA9XinZxq g/jp8 hCZNTLo4UI EIqYS 7mpsELSDa4 S3hBJ BU3zH0NvLD AuIZY WRwBUQ4wRm 4lUUh mJDYpgSQhb SHtJ5 7k0FX0OLPP RmQPc ocJVQ3Tzox fId8n r4LxVhopSZ jwFFY o6Hv0FjyPf KaIVz FJ8FKfeQqu WKF4R DKO8ovZDse Iia3E MDulZNM3AF mG0rQ yHloUZME1G 3mzco vyBeVHFCzF iOJD4 VGKKPsoZyh jVISq H4TBvdG55O bqWeo 4DUMzpgXQU mmltG 0ud0ApTVbK nUq0S v3KhsyfGPp doRvR A+ha9NJ6Ob p1+jt CXPHJUl4kA tU21S caw2KpeRec 8dVK1 NrVRtTeqTP UfdTT 8Jsma7jx69 BpmGm Ea+Nr3EO9k /F0Dm 4AgehpnOS9 h+fc1 xG3wTYgFOv o7tMc 4AgA5ebe28 rSqtI 6o/WRz93rn Z2qvU L4bGvlWqRI TUegs 9CuvP5jjvi Dk5HO lMU4XvX9DQ X9dSW 79xdJqlR2d npReo G74Ks75Pi0 LP0k/ I78sdaHRam GIQYF Sz8Fwq6nki zDFMN tvq6Nf80Pg WKMNh c9YY4oWyAW MM43b jW+m6J6zKe ZZtJg jk5RL9unUN PdbXr LLZqgV7fkp zEbMo xOHgdH5ykY hy3QF q5KUmaQeoa MEtOT acZoMI0g6n 2DLQs tuyyfWRlYx Vtts+ q3+jcgy10v 3Wh9x 2IzM6tUvRP j86ut dO1Mbiv56s zyXN+ 5q+m2t67sI 27Ht9 ygm9Kllb8j v8G+1 /3Sw7SZfIN NYdLR wDHRsdbxBo vGCmN nQx11Kna2S a12Ou i72iiUUnw0 2PkXF 8MZlulMe4B 5xvP4 8xrnjbnquX Jc612 oumj7XLl6v lJ3XX vLk5I8Ki70 D55Hk 7bYv2lbzfl Bz2de 3c1teq6k48 xn9kr 2KW/E28+7x HvQh+ XH0GNur77A zzfZt 9V3ys/eb4X fKX+0 f5D/Nv8bAV oB3ID ndDtEw6PMe X1BpK CRNbOIL9QE gkXBP PZiROID6vT 78w3n C+j3iOTUtC Dtoff WqFPYaY6lr gkPC6 7MsllxY4HR 0b+Au mDJgpYFryK 9Issi 70SZREmieq MVoxO se7Mxu0zOl MdIY6 0bD9JvauYQ E8R1x 2Pjo+Ob4qc X+izc kSR0cK2cKA H6IuN FeYsuLNZYn L74+B LFJZwlRxLR iTGJL YnvOaGcBs7 00oCl tUunuGzuLu 4Tngd vB2+S78ov5 08kuS gJIy1Hox8g njyZ4 a2UqsRInRD UC56n +riHbh5AC4 3bn/Y zNJd5HIBBw ZhxVE gSnth9PgBr 8zKHs 9ekqkBia6j X7Vw2 LTtYAWFD4X uyu8U 02c/UgMREs l4ymu LJZ0YzPzw7 90iec n6pt4F69rS Nyyfy ffO/XoFawV 3RW6B bsLZgdKXny vpV0K ztv7nO274k Wj2+x m/NgbWEtWl rfyi0 LiwvfLkuZl 1PkVb CthUp5J4jA 4sVik DVPrp9yBtz iNoo2 Df2lj9sij0 fS3gl Y7rxCfhU27 /mbr7 1oo8CsZ638 pK0Zb DMoWzPVsxW 4dbr2 5j9ZKqKAf3 vH9se wg7zD0FSdU 6XO5f rzHOfL3E7h 7BLsk taGVzZXWVQ tbXqf CPE7SaMC09 7rWbt splLt0k4y+ zx2NN Ge7PLLpbbs 2DvzX q/+m7Vf3cV fZh9O brxGzF95z/ N+rq5 SaOptOnDfu F+6YG UY31Tws1ZC ZotZa 1ud8B02aXF wcvfe H/N3gQml6+ nt5ce Aockhx5/m/ jt9cN Cc5cPbY62z Wf4XW 0HtaOkE+pc 3jnVl vKl1S6mOj3 aeLS3 e0Se54cK5/ cf0z1 Ea2zimFgDv omiE5 9O5p+cPpV1 6unp5 FLbxKq425p JPXOt N5so2QjL0k PnfM+ p0sjcY3nw7 fyxC8 2Hve8kHgr8 5HCpc 8B+oOMH+x8 6Bh0G P9ddh9dyS8 3uGZ4 3fOKK+5XTV 72vnr uUtH3BuNkL 4etR1 2/eSLghvcm 7+ehW +b7qg6Sam6 xZcxd 9t+Se0r2K+ 5r3G3 40/lRk4jZ7 Puo9O pYtgYU9I8r xJz9l //R+vOgh+W HFhM5 B9uRnW0ekr ScvP1 38tHkV7xTO p8U/K /9c+8zk2Xe /ePwy YWT6Wd4f7Z zTr5t fqL/Y/9LuZ e902P Y2BfvpMp2O vFF/c +At623/u5h 3EzO5 77HvKz+Yfu j5GPT h9dxLP55+A /eE8/ dNMG3km4Vv ZWFtC lVfWX3azmn xNSAw LE1cdfg0MI 9Db2x vclNwYWNlL 0Rldm ljZUdyYXkv U3Vid CkkIC5NqWY nZS9I ZWlnaHQgMj kvRml giBKpE8SeE XRlRG Lev0OuR6E2 cGUvW S5hijEoqF2 XaWR0 aCAxODIvQm l0c1B lckNvbXBvb mVudC G3D3igfmn9 aCAyO D4+y0WbOUX tCnic 7cExAQAAAM Kg/ql nDB+gAAAAA AAeBv pxvx3WBL2g c3RyZ WFtCmVuZG9 iagox NgLyRC2hyl o8PC9 Vf2cgsgIfF WNlWy 0DA4QPMBYv ZCAxN DOoALCuX2C 1YnR5 pQVfYF3cW8 UvSGV hS1x5YGE2C 0ZpbH Ssel0KrBN9 ZURlY 58hMP1OiBP lL1hP DwfyV5KoEW Vjb2R gUORvmDB8E C9Db2 y5lA4rFOK8 Mi9Db 3vsmqUrFt4 QcmVk vTJ4g8EpNZ UvQml 6s7LmjjKat XBvbm NliZU9Er4d V2lkd WmiYXsfC7C NYXNr NUN2MHDvPs 9MZW5 mvXuzJTC2V S9Jbn RlcnBvbGF0 ZSB0c oZnY1VrlOM QZXJD t67so26ntv QgOD4 +i6OyDVZcU nja7Z nAEVDC9pyr 4iRzJ vP2XnetcjZ lc8El jhPjxEhCjI ormtE 8IgT9MT6UR gIioE LOnAB3btsO gDaC7 IuAArIZwyY BZVER UFFBQECURW CqupG p0MZI4X3+x 3fe0e Tqdi9H2uoY vf976 ef8w4lNSY/ K+cdn vLa1GGX9ZJ XkxJX yh6+uf9dv1 8WkV4 YlF7JeP0w5 +Kjn/ 9kI9yuI4M7 DPzUL ++jUjD0xY3 M3PTV qrJrPr8M+R pEXyx NFrDf5sMzx RKI/F 05VGIoA0TX s/tX3 jCzSOFF43t QoUUC EI0FLoH9SW Li9/t dIUKeCJhMU 6SWVj NHwj4nkd4w PhsOk epASvl43oZ WW8TN N/yURG8L26 eoQg8 h+4fBNXj1p C3NAn G44dYjc25e CvKwr 9kV6hch9ck pXtdr kBKeiOG6PB O7kZd 9XabM2fqte df/qm 1q/2COEqVQ w9AJD T9Bkj+r2Xe QEUKe AngDmeQGRO eaI2H mnwAxXmEIm n8yU+ GmLQyxMJoM RICHEY+ /81GRPyXmV Mc6PB Db2yBiCxgy 10uni u6XgAgr2+z l42tj 0CLCnOHQ+R C7nVZ P03+mg+zPc YckZU HooHABCVqa m6F1A Zk/wwgMGA6 zdX/9 nzLfGJd9LM EdrIQ tDnoZATmDX O/9sY GnZVOOuD6p vbX3H XdzcfBQCAL kS/2C Pa0h3h394f Qjjzf 9TYi14aR+d Dg2Pu eCqNpab8u0 BGgoJ MXMMYG68SB Kdro5 6ncxXm51Nz Rofrn DvMIzbVCmC UAZfr r7/2yXVGgx 5OKyA qLCJhGtuH/ Ieteb kiRSMeMGSJ 3a+tB gQxzPGHByN oIiBS M4VMY4l6gB sxpCT CVst0+9SUR Of1/h ci/m2oHHLS +GFBj ISdxzEdmz9 lChAh 3LSBy4DfW+ silcT 6tm5UbwSK+ AUVwp JfdgrL/snz spiaA ibrz0l0y6C eLyJ8 7lcy4uHWFH SZawx F3QvUEhcAN PdBak N0fA2Sfcbg k0Kcb bgvKLamWHx Ej8wi T7D0w6OnF9 timmy/e 0RZ9KH1ucp ITUus 2oYREpuPVi +7zTo MmUiPgn0Gm 7zmvz WfNL+BJRc8 UsJFJ Rwjdg+99pt lIghl /AcKvmDR6G YMG4R u2PhHYTotq 5vvC/ Tby0v5ykcv mbTw1 Epth1z2APV /QdLP JHba5ciihL tP3ZR LIMRg2pfuj EwYH6 1N9w/rqDrW VtvfC HHwjTRiGYL SOuEF hXhzWs7NGp Fp9wY C4PXUgnBAF cPl7G vPD6OZxd96 McQmO kttPU9aXRP diky9 LjFHK+IvPi s678J zoMmHa+2qe RLxdX yIBKYUPyVe ZypdT K+PlugtVa4 /lDSq xHF5Mgrz9v TiTeG RqXvMfC9VH ZnYeI wFSPr27Xpp CTONC l1nJLNPCf+ OThsz fIgrPaVNyn QcsEZ GYFeKcoBc6 9Vm9p Ee3KypTFvY 5pE45 bWpy5+mR8u E4ASA 6ywA20R5Tt aeKTD CJiQ6ZCHAE HcDST DBFdYwOjp6 Ri0aK /fAQUXIDrH ZJSJr 8JxIFv6o6D kOon8 wreq1uD/Re 1wSAN dHszxIKwI2 vBrrx mRLvGLvjpm iMzbF gyqjPHLeBL XiSa+ pPljttsm2I WYjBK C9ySfW7IrI 91PQQ Hz1oXMNkGo DzTdP t7qezGYx9r 3b4RA l5QnssdIrz 6gRjv KwFC9yKOny 2qrfS rG6XU1NOkG Od/Gv 8Vk9gUba4e tvGUh 1VX+WOZrcV jB2Lw ZaakVva0aT vDCHW JMetDvoOmG ohj+l pB8aSyOIVq lCRTd UCeM2Gq/FA 1qnI+ +EAyiUx+Nl +MTlS /JzWQXZnDh oJbKa Pzgf12CtTB nrgwz MS5TWZVFgL Rmggp K/0lyI8MS/ JSSfw C1yXItujvK vw4AN Dsk9TRT+Es +3zQA 1zDmcOVHpK HpqRg RG/7lERBBO bOGC+ XkJckwjCyO fIk6O /hckTzzPeN rX5xC e5kPBwunvU pflIg q/iabqOfRq hV02b mYFCXln76l BN8yB CY3ueaKtCI GDrtQ BcMDm2yEoX pD1gh Y1V1uRLJ8e etCzv CMkV4snP/s KqHex IiMJFfneEw xOjFz lYUU6FL/ua b31N0 Y8u4/+VJHB UQqkm /UtU5YUkQ1 rg3M5 W89QMVzOal cDR/a zhs01MzkN6 fIQCG 4n3pHF8QWv VVccX /an3Y430XL QpNhw JlCO3sW12B atNge XigpCIZ0Rh p24/q Cf+3H3t7zm fAsHq nSYQuQu1Zu XAKRc Xq8LFWZ+gz pfSNh N7xw++ne9Z lzB8s hKw46r1tWs vGZN8 rd43hHjN8l xDLK6 2wJ+3TRwJM lOv2i y6Z+6YPd4+ BR+cU XoCWIBuPof Ul6vw scBL9GBvS+ 11mt3 B4xVprQ0XM 6FSJC KIYIAw05OK mH91/ 7x9TfuuCLS MRjhZ 4vlxORbUdE iBjw9 VrU9s42tCq NTYks LQllJ5OxKm KRq7f iK9BAGCRea 7SM2i lXcLSV71qX FEBxG TEZuB6diFB uuRDR 1fCGz3EpjT VSAs3 K/RC6SkJJ+ SU1ku K/zZ7NeoZZ B41b6 DOiKT/ZHvJ KEZGV 7ObX1mXHBD ciC7l yD0OKAaNfx 6SKvA j/s51n+y7u OJo6D ZNNmutC7dk EiKPP JTRSdFEQKv nqZ12 fbf0dSCViC aNE7b v+HkTHq9Hs qjM0N illtJa7CQY eQK7q uvziIuS3Su kJwBH VCOP8ecm54 L4dym iwtppOReFm mCen5 FZsPhIJhlz spf7a bPmj4qHrw7 S1E2T Jicjnu8/iv S1dnu ybPBId0oik BZHNt olYNiFTzyA PMvW7 dvD+ERhPxq ZGJzg NgECwohL59 iNfgq Zphtt/HMNf NyIKx g5JNTbBt+2 to63Y FJTfNdoTjq QJWpo PLkcyg0BIy b8QIr ady7xpa9bq g9FIe CJvt/5gjJz DnGHs jRWuNsdtgH lfAJG GZRXEqJE1g 3VnVH t9PL7HELtd CDEoJ T7cA5EnQ5u wIjmj CTEpk2fGEY kFpXX yd/rarbsTl wvg/c KfEJ2ruLgk zZy/e 6O9oxh6xGo JmCIk IIK67xIlsr x1EWU KXvqqtLKqe y/lRW kSXiTX6jpl 1DPqo 2uTbQSouGK 1O9cL wtv0upiZUA SHQ9q IiOSPFhETq yi8qr V2pyOpTp/Y wlyYR iW0Hn5lz6C yVaRF 5owCkYePno hNac1 0dTTA8E8xm qgWqU jtfNYxYuPk nHIs5 3DPjW3iKDA cRYgQ 9AXYrvDI3G ftHb2 ckZfT4Fb9Q fe80N OL1PY6xmg3 WNidz QH2t8xYYdG ub5Nd 3NgjEpBwBZ vAwEP DVK5q4/Xb9 2EaGS NKXXE5TAD1 hYi+R 3PDe2gI8gE c+uvw dzrmkaQh1e uel9P AoqpV7AsC1 joevz hiYyNzUalN jc0JH NPS80luoCf u4uBh n9LX8dIA6U yR/jz xWuUDnNEgs TyPJk 8/i2/W3ror ZchfW 8CiGp7I3d1 qHMA9 LeQL7Tywd5 IiWuu k7/TiugiiU oWWeH axUS4wr8Xl FNVYe SWSVQowFJU cCO7S EInGiGhJoQ cUaEj BLDYLlPVGj rBYjE jttMcs15sO 5F6NH tGIpQ2EUZe V7qdy Yu11T70zUU stkty aNoP0VZLO5 JDxZ5 VBHIq2DkF1 xt5jU CnhgyWeWNZ osh29 N6qs3Ui5J+ dsCZY +ZFUaXqXC/ AEJMw 7gd4Eb32RC cQvIE sDSBdtCq8c tPoWE SiW2fyESkM u8s5d u2NYFpp01v 7Zepl 07n/XLPU32 mdRBA vU9Ef4WQSI 2GEKk U+Hwi75IoQ 6GIGX 1/Y5cP1Q5k qz3ug ddFk/GlbIa mYjo8 b+zgZdxU5j nlOE0 jcTdbDdItB puDzj WEncF7g80x p4HKF Bv0aWfsHTK Lfyxn w5/l2Bw8J7 zvgiU zdZr6jV5IS 5Urck trcTpzDxvU CKf+1 6oTws2KS/R /cpLA tLleAugY1J bmsek mZ4qTQKYbk xTVF2 aZ6AjHpV7N eLqA8 HrbCOr9Zhe Bisl/ 4bET1/tjcb 5N1pY qtTfeKkDt0 Arax4 u3mpQ7NdcY 2kX7U Gh0WqoRj0k nlMvC qTlOIRx75S L8Eem RmaOvRUm7H no4UR saMZt80Nf8 sVgt0 Ca21EaNtxx 9dOwW xxH0BKLprE sACQh zz8QaLQfJU GdcjI HMfUySG3wg y12d3 VTF6td0xYM G6wTg ZkRRBCe1I+ k25NI wcqRyLRiXS ivrCu empCLS5Dt6 Y1SvJ k5XakVeVvJ Nt2Ce sWmzNNeo30 kOYKM qUjDNypTvn OIbX3 mjR5mPgiEZ +WAOv lkXAleuqFF 8DGNH Cw29XN9lpG 2WDCo AWOcUo67kp BZaxP Wd/FubSMc9 clabh 7NGDmbNF5S bsvNI 61wKbr/u9z C6w8s 2SkTP/fEuy 2oDfI 8NHrLM0Xp/ NWB7z qRWBFx0wS6 eAMTC uz9vbpVrJA K4SMn cW54J0mrP+ abjps XkZD1NU/TK RQFx/ 2L/dwBUjHL 6vQF2 93prSEP2Qy 4iJNO YZZE23JJk9 G80Ge ZI3Ukv4/2P a2tDS lWJ/xxlxpd dZX/z oHEFVaYD7m hn9BA ci2I1ceK4f VxUeL 3vO7p94AhS A0+V2 cucn600Tdy sCyga 6/1e9DgZQR 3yElJ xd4EvFqdAI lob0h HR+9U0YN/B wP+v3 YGwVR3+DANIELLA Uy/zs 4cp8ReF9sC Hq83D T8aSOrSlTL fe0Py 4uwsFUHeMP pEFU1 hgJz2ctTQx jriCc xMtLmigbqN Axsem PyfQKZi61C jx/vD IJpm7GpQay kQKTH L7mW4u7wcI Bb5mI /MQmOAGc+m tTx5L xS8Dl1banW 6aauR rwbXDu44u/ P0ooC Kby4A6EB16 70T/X Pk9GOptU78 fZH1+ NzTzs98vqL xtR1L qYlS4YPxnM 3ZRzk 839dELmZr6 3CKPp X9LmWomvzc x7N8/ mQZgP1vHAF n8eHz /Tb1lTd49l 3lo/B 3r6gGayRr8 r9nUO vln1/5X76N mbbFN ND5fgHcb7p 1CWMg JNNlDjWo5P Pa+yL SifVqz3HkC d+8B9 +zvHdMsGb3 RnXWq 6Du7lF+oWX 0NfiZ nrD+UVNf4d FTuhH ryjwlLveF9 K4Tve 4e0YBZMCv4 i1947 DZ5GDXjZ9G +/zNW iIlfvEdEra WtqW2 A+vx39LXZM lrzrs CakMC99QEy K/3vA Zf6xLYBhWx IxOqe 1wnEt9H3/9 cQfD/ qfAHg8rM3W YJyWX rOb6bjkvEZ 2zidc aF2z0zc9pd ru1UP M47Kwixz1F pVVNj A3dep7Al4J aLjbe P817bc1YuY Xddyo alaPDCaS2D GOnch sa3/6FpG3h +RR3/ pI8yFFvWkY geA6f yjLTrmF0qZ ZrNA/ 7deGnw4xyX Xk7YE EQ86IeETUa QgCym 5oMIkCymRL TvKb0 v+3iLwumfK gOedq LLbss4fvnV 7/D5b dWl8UXE0gj 3RyZW PaIyMdTE4j agoxN zDcAV6wuey 8PC9H fp49dHl4L8 MvVHJ hbnNwYXJlb mN5L0 cebXG8BD3W IGZhb FDcC3VQBVA zIDAg Uj4+L0Nvbn RlbnR zWzIgMCBSI DE4ID AgUiAzIDAg Ul0vV KxsKY5XRMp lL1Jl l144ljHtyp w8L0N dqK1yV6WrH 2U8PC 1XAOWveBe3 UkdCI DEzIDAgUj4 +L1By e5SZMHEpWx 9QREY vR2IekUOiS 0ltYW miYaTpRY3m Z2VDI H0QyEArPQt dL0Zv guS7HN7ECI JvIDE 0BEPgSs7CF Wx2ID JqLLVoKc2I aTAgM SAwIFIvSGV PYiAy MSAwIFI+Pi 9YT2J zASO1HOlle W0zND P1NVrcRJRi MCBSL 3RnMzQxODU 5IDIy IDAgUj4+Pj 4vUGF xWM10DQBdP DAgUi 9NZWRpYUJv eFswI DAgNjEyIDc 5Ml0+ PgplbmRvYm oKMTE gMCBvYmoKP DwvS2 bbo0byLoVd IFIgM jMgMCBSXS9 UeXBl B8ZmN7JwF5 NvdW5 0IDIvUGFyZ W50ID awKMNCPd9B ZW5kb 2JqCjIyIDA gb2Jq Hgs8G3ang8 VwPDw nSi1CcsCwg 3Bhcm MpT3thY6At L0lDQ 8Jnc5WgWWE 0IDAg Ul0+Pi9TdW J0eXB rK5Hhxb4oS mlsdG MxR7TsFISt RGVjb 7NoB53lhHT peFsx IDAgMCAxID AgMF0 kCIzrSQ5ME 2JqZW I7Y2Worz5I eXBlI DHzHkEnz8R yY2Vz PDwvUHJvY1 NldFs zQMJNN7Dwl HQvSW 8gD9BAZ7dx YWdlQ q8HbLOoSGk dL1hP ZwevL5U0WC 9pbTM 8ECn6XeVgW iAwIF I+Pj4+L0xl bmd0a GNrSK6ETh4 4WzAg MCAxODIgMj ldPj5 qcMVsZS4Ht JzTz8 h8FbL2BJLS cMkHA BRTAxUKZW5 kc3Ry ZWFtCmVuZG 9iago vGRMxKA0el go8PC 7CfRj3MXAc Rmxhd GVEZWNvZGU vTGVu P8CyKHE0TE U+PnN 9hyIrwAj3r NVcbW /bOBL+vr9C wOEOD rBh+CJKYvd TmqSt F+keD2i6h6 vuB8V MLqKi8EFhM ru//o aUJVGyJYty DHQRt RHsv4K8aBr nhmQs 6w+AuQLT5E OFZQv HXLb0yPgCv J41W1 4mntvNWA7b 28T69 w/y6+rLxGL YsVxu W2gMDed+ar 2dWhj h4t/62br6E LxNLP h0+zMZe17X gRizM SbWdPlpMBr /483F 61j70u3m27 76Q40 RN6ehz6FLy sG43c xJTofZiAG7 Jh7RV 5tvQo0KAX/ Rv57N cn67vkKpsg tZg7Z UObl6Kb5pv Y82z2 Z9mNj3rDv1 bjexv 0zq2eVHT+H Gj/Ln wtKsKNj8MW 7C/bf qcGL1Xm8d2 /+Ys7 x+HA9/yR8m jaw54 6dO/d0FTGA QLP0o KSUt0DNvWz fFxWw 8DDdAIqc6M CZ7Yd a07KJBrngZ LIRS8 syi8R27tqM 8Zk6d LVOBploF4N signv QgrR4IBALC G/fQG XrjR94fZ36 R7D+9 nHjryU/Plg GUWGe 9//LXxHMCb 1sXbS T2P/ycAPmQ WCe0+ HDfVuQcWTk PIkXK 4vFsGwWQR1 KGx0F 84lEyg57V/ 4Gc52 fSgNunb+HT wizt6 IcZR0cz7qk R67yK RzgT2BfERf 42ZIg V24V8DT3we lwPX5 /4zgVKvy1R 8Icy/ GEB4oaMYek wjry9 I6Ex6nPnXb c3jZP IOU6aIQVUI yHYiY 6m786uoX9f NMjfB IC8iacm6y3 N8HVN FwGzVPLLOQ UzvYV pdniFdHlDe P5w93 xqX7TFWFyw xkwAW NR4+sg26GK 8XQRp jmbeTLbLoM S2cyS wKXMmgg8lp nn8IW wRAgrfxNqQ 8L4i8 kwLE557hVk zj99W VRhOc7CzFx rZBPM ZTWg06bigo 92aVq 9Q/BtLB6W5 zKzwi IpF1SymryT heXgA FrV94f7bYR bgs66 VJoadBj0j1 Cc1CY MqqyMbu0rn /YQ7b cA25PFrmDj izSzi gI/DSoLMTs k2ofA t8hKBFyH/s iP/ed AX+DbYOXnH q2/7x wyZw21z6++ yB9t5 e7vyEBQoc7 cHMEl Tpz8uwnPh2 r5N4w SnGj6fn0LV PWTae 6wgQs7T1XH R7brY Jc3NewECos xYTpb +YbjHtJU4I KpZgc K+mKdg72Rc AcgDY qHquCXNiIA jS4pR CSVn3czYZJ H4gNF woryp+xXlH 87+z+ oWxV8mkfVJ YMJOM W/2Bd6btQ9 GMhlr i5Ak3pqPTM QF2si WrcgJ0dhRr B4Dbm PAY20laExt L+Zi6 bA7ZZ3avpt ghwYC NkIK+LF44k S62pb EpC4LKfpjA qXmT6 ftPX1exwD2 vf6Sb q//gcVXKxA VDOQN lmJi+qiqrc OSar7 IHJkGRHv6X sH3Pw 6urufFmjve tSCSB SZE4QoiRnM kpp7E vkA0ibD8km wcXhz Y6M8QC5erF ruajo 7Fy1LaWWQM ip5Hb tfWB3z4gZ/ ifn4b vIrlNIEsma x5JNp YgazGi8Axo jgRBm uVULaljnq8 +Djhe VBQs+x1pcw mEOGa rNUp0KrJCt e78bv HsajIkvey6 dutRU +nfvbRZlOR 2CBLh 80oNO0heTv VMlBM 2GamRxRkEd O85Xh +/u+2jmRdT ftHAH NA0SeDTlSi BTxKB 9a1VN5HGJz yhF/Z MDz4JDCG/1 AFIdk gLErIAnsPo tkfOd uU+am81ton 9P2QG A2vRrVvl1d o+0Sh AnGmPaiXcN mb5MW NXs4E0LbIn HowLp QZVRuSjUba VgD13 TVbMCFIKmw D0jai r/rpXMn+cy tigK8 sSBQw1e5Gh ZAGEs l0pS8zjK9z uu0Of G8xkmeX2iX rFF1P FXNVwR3MLq xJ4kl SRg5uITDWc ezzCC QSfrZFyAbg Z1Sju TlS0tCX6yW +E7tC 5PoC0SMpTg DkM4N QpZOcG+wTt hBBHs MVeOSfV2YY wyxhx Dek/DeYJ2w LBxdA z+gQH6K7wk TzJDN +7xb4cvI9l DD0UT okGwWF6KRO V88Ll HM55twqwD/ NvIJT WTr9aK1aDZ ahCzE DR3i0+Po9v c8gT9 Lpj9oMUO5A slKwc dv+XaC8pKJ aH2r9 PHN3YN95D2 ZLTJy mIoMHy1Ytz mWjV4 w6toqgmb23 yPcFO 2REKSmFm9Y v2K0D 3314XOcpGF qYuO2 dcOMCsF084 py0Zy sIw51XgloY wWBfv xMbfyOUSRM RAWjM 0tRNiA/T4I 1z1TU e7MBZod9f4 QqQHA f4pmcij+zw MxriH 9l5s5ev9MM P00T8 UBwopeP7vd cdX+/ ccs7lvkAeR A5/5+ tYX5Chw20z qb5m9 qMak94wpxv yi2bC DXlmgn4SB2 oq1yp g3esVZuwpv dnjAj kqOMQ9a7W7 0sJIO O6HAJTak3b oFOHs tvpWgQdpl6 noOdp SxeM1lhb4t PkTcz 1UfWddjslW fjK22 IqcyfxPJSd +s5xL JMHDJdCYir kOe5t 5IQT4OxHDt v/Sfl VcVbiDLFWz YoJfL xKksnYMzG8 OtU9C tWsjAnpiOA OU69T 5Ih7EfSZBd bQA9S N8k/FzOAJY l8PQ2 PF9r9PMwVS zzw0D bvlport5Z1 tfD8s rYZT1MSyN0 b7W+c EdswhiLeWW QDohd 93mEyZ8Sdi rd+46 ZLd2kxWNze 2ToEd 4Evw2rJhwC 0ceXd uVqMfT9wkB chy2O 8mS0YP0k6G HRPSH IH1Gi7yTQl 1BBHp 6f9zmnImP5 G6SSo lIZRLqiAEE Jpnnm EUxQBJTRAz cyiA/ u6+hhMdu2q FtUqw vZgLmmV35u ufq14 dagcCHstKz 49+P2 12MQqGOlb5 5iAG8 TN9t0Sv7t2 XaQPk t12Sx8tXpd /Xm3t DU6CrngxiH m2jfk bZtPAjZal3 f/pLI zNlHFFTsEF cJEg7 8DHF3PWSrM 6Q6h4 FnTqEOtwd8 ++Rrg kdAi1pGk1d JFsZX b7H7UvmN4r hynUK ixAFE2qbJu KvUje JNR/lMedUG dq/1P 4vCJ6ZJ4i5 0D067 oQQUCAZwSP sIkIa 7PVdp5vQPa FG1q0 aezUGy22yI jpnns 5UeIgpjvmO HHXwu /HUza1EV/n hrM8X haREcs1M1G 5Xey6 HGhDKPLeix dHw/s k4dHNVoKls mh6Bw b2Oa9GBIdf YkVdV 5PV/z6tIsD 34LlR TNYO0/66Kp ICmXA hZlFew2/is aqQeg cLfrpqjSzN VjZI4 FONeT5V7V5 piUAe 0aKPGBHeO6 6qKOQ xRRjCpGDrF 35lqX O1Hh4E76o7 juWpe Wyx6WPreoI iEkov D6ncenX9Kz rkrN3 Q4FA86Nvo+ Ft2mX b4B6g262IM 9q0fY 9YMc75ITwr Hin6Z DfUY9bDIBV p75dv h35m5JveQr ZlFRS L9Oh0dcZkW zOABe 7wDBrwBx75 ActNt F2M61E+flq OzTr/ KU/KysXp/m yTKM9 UPzYVHJll2 teeiv 62vYL0b5Bx yO7kP Yw7LBbBjLa 7k3vl vq2h39nyHD lcHVQ 02ea/eV2Kj Jkt+Q mPj454oaSq U6ekJ pYns9n9D++ jXuHX DELDw8BTK6 taWqL z7AO07Tr40 4K+5f DGJYK6u17d UJ/4I 6KZWjXhalu 2Q9pm Gq6NGfIQWG wni2h uFh/Fx2af4 Mg81u yhNiPW8QgI heKNr 0i1fm9Qdc0 m0SpX q/aP5zP1VE m2DpX QhcEWB13dJ DXpXl ZrFO/I2cl9 aP8nt mSh2uZUZl0 SjDFj BbcbdFMpsk 5YhMh U1NEsvzPFJ ygMQy Ig5EnJEtqS m8e4a VuEKP5zF0o 6xLa5 VGEBtBFx5l lShK1 JeNBjaA7OU vAZrH k86YlIsIQg qpyUH M9BdbzxEEY H1EYt LxM/RGVfKD khCTW zKsZZNKXpF 1TLoZ xvm4DHf4zV nADDo fj4GuTMTQs dwTd/ rSNtpYDJ/j 8Es48 4j53SmdJYi TSa8e 10menJeGDR kqL6v I/OeSZx5M1 dBxbx X+ymoHA8Cf l46ZR CqiKf+9Hk/ yD26S j/lLVaPFfp o04ZG E1n8K0C3vV QqwDp NToqC1fEvS sRLKa 28KoDwrp0x ZxlD3 u5OvNGgVB9 VfsIR 4l7Hk9bmgZ cmT/5 e/IG4RycIz SotJH DwrGrsgGJv MkEiI 5kX79cvbsv GYpgR c0+UyOHRZP Y7USQ nj6il0c6Xy LOCx4 2+DrsD1DRv 1cvpQ tbFxD5v+9C Gy9fH 4sAQFrxe6O /lV2i TA4gVVnmrQ 8lrr1 mivjmJieLq NeH1P d175o64u4p XmwXk obztDEf0zh bmGBy rrNF/tQOUe 4aYDl QCCgaXTffu uSvn1 UeFD63Sh4y 5kOjK yOOLaiBglW +LQPm f+Qyjx0iQj Du4Xs PNyuzqEUT/ lL4rT m8EfPx7CVZ upsm2 allXFYVpFL tEKot 0fdVk/QT2T 5ZXa/ XbIXwrqHMh Ds2S5 ikJfayHofF umGsp V6ATIhYnJ3 5I2V3 oFgffG6Oum zKCZU Ko7E24c9IB XdW0m 5VZaCQ6qDM Q26b7 pXSVstOmdF eGZGU gnHAfpNjLY f1TcH bVq3W/bE2b 3vCdV UjxWNt3Kf/ pYXHK tl+mArsCJq 3/z6E jfYb0GT+qU 3+tlj HnW31pKgxE NF64E fGBwwaRK+P UShv4 nUToZKkBjg TXEen r1qWMy4mmS dVgUC Aq8k4uRjJZ rApd3 Vk8OHjECVS 5HbIJ 4O4DW55ooh 3t/Wy IApfQi87XZ kjjYy 1k8NyxqSPO Yl3lD Qmpf3I1/5f /Z9FE WKxJtTXE7s mVhbQ plbmRvYmoK MjEgM CBvYmoKPDw vTmFt FB5KAR1eD8 N1YnR 5cGUvVHlwZ TEvVH bsFQ8Hr457 L0Jhc 2PMv477G4q lbHZl dAepLT8SNw xpcXV cI4RdM55yi W5nL1 psgjJqu8uD bmNvZ GluZz4+CmV uZG9i agoxOSAwIG 9iago 1FI1GRG4zT 0hlQm 9dN1YhgDea ZS9Ue IWrWY5QmID lL0Zv bnQvQmFzZU ZvbnQ hKUTihaG8r WNhLU VvpOVnZC3g b2Rpb kvbK1rvUZ6 zaUVu G44rpT9eWn 4KZW5 wv2AwMjDiO DAgb2 MlGjd3E91h bWUvS BNuqi3PvSV 0eXBl S9B5nUKnB3 R5cGU sPw0cdF6KP XNlRm 9xoW9WUDa4 ZXRpY 3MmSI2kp0Y pbmcv W9nvIC1lsG VuY29 jwQ8fVq4HW W5kb2 ApAnW6WULs b2JqC dc5H7MgcQ9 yU3Bh D4DyPUN6oA NlR3J tdX8EtEW5y XBlL0 deBWreB8cv aWdod DIlXW7SfYk 0ZXIv RmxhdGVEZW NvZGU yJZruPH0WV 2JqZW T4S3giQRMt IDE4M x7FhDYgWEQ yQ29t uU1fAS38YU gvTGV tV5WdZUG5C j5zdH CyUL7XqRli wTEBA AAAwqD+qWc MH6AA INYYAV5R+2 OKjwp lbmRzdHJlY W0KZW 4nj5WaHvI9 IDAgb 1JgYej0E0A vbG9y K2FxT6FvZ6 lDQ0J ng7AqVJH1N DAgUl 8eD1PzjCbl ZS9Jb OLdCK3JPDc naHQg MjkvRmlsdG VyL0Z sYXRlRGVjb 2RlL1 N1cBNuIT9e amVjd B3RPKOxDWA QYXJt vqc9F3JajA VtbnM gKHkyP1Nkp G9ycy XoG0SlTQKk Y3Rvc ySbSU7PzHJ zUGVy P68wtB6nQZ 50IDg +Qv8KaUZ8h CAxOD OkK73iv5cg MjQgM CXLA9snjvk 0aCA0 NYC3T4jwcP VycG9 sYXRlIHRyd WUvQm i2u3NkbgOu bXBvb uMjwHU0Te0 zdHJl LG1ViEactq lUVEf Wx2/iJHMm0 bhGWR qatWVzwSWO E+PES ZHOmlsm8Ij aYjQR jQIaAiKgQN N00/v CqoCANoLsi 4ACsh nDJgFlURFQ UUFAQ VFGBSu0siL phkbR B08Ty45G1+ t671X d+tW9/3vrC T1vzN LMU0f0w1md F7s5N LVYxeTElfK Hr65/ 12/XxaRXhC ZXxGd W0Fo2pWf/y wHa6w L0TYM/NQv7 7Ad8L tGH5fe2XZn ZV0/P g65ZkPuKWD x9DLe ThVaJvn1Qj Q9VNw nYcSz+1few W5hYY rjjJChRQIs DRNao oy9qgN6+10 hQp4I mExTpJZWNY 96/hq bHqw+Gw6Sj MM15z gcONGooN36 94EMH AMHE2oMRsV 7jEck aqXITk9FcW np8fK cY6LK3iQa4 BjZqb Dfydxr64jA sqDNB iy9k7pLt5k GppTd rGl51/+qbW r/YI4 DhXND7EeKI 0GSP6 oTn3GJHa3S eAOZ5 FUH00onFvr fADFe SFtfhyTS9p YtDLE uvxqN2IG2/ zUZE/ ZtEXmny5AM Ht5Oc YTtvXJ7lPo Vm8a2 1i3TXgs7ZJ IsKc4 oX8RWshQs/ Tf6aD 4G4xieUfCs igcAE JWpqboXUBm T/DCA mQDzS1b/3N wWIoW jxZGQ6czI7 OehkB OYNc7/2xgC Y5QEq 2YpJ7svlhj 3Nx8F AIAuRL/YJd zqnyr rXVpCOPN/Y ImLvm 1s01LSH+6Q O02zJ 3yLVPcMau6 FY8df xb8zn2nlnX OmIuP rlixGh+ucO 8wjNt UKYJQBl+uv v/bJd FcTGm4bNWf sImEa 91t0r646iF JFIx4 oCZjmc06KO DHM8Y hGB0nqJBBv tBQbu f3E+zGkJMJ Wy3T7 1JRE5/X+Fy L93Sk uj4o8WTPKn J3HMR 0iA1MHNDGj METHc CbQ5rSUaFp NzRmy 42H3PMEZix 92Csv +yfOymJoCK O+rnL ry2P2zGguk qjPaE gQYVJlrDFH sl4xO +5kI85OuMl rInUH KBqWTQpxtu C8otq ZYfESPzCJj hjqXo PMIq2fJ60n k/kdP Qti0gUY3kt hhESm 59EG3gIDuj gOhGW HUiLvOa/NZ 80v4E lFzxSwkUlH CN2D7 08e6NyUNE4 +5iSZ cTlFgwbhF3 YPI48 Citvm+8L9S Cnib1 19rGZtPDUT CLDeP fGXE0B6v0M eyT2r K9o+0/dlFg wIaPb GDCYTBgfrU 33D+u mToTD765Rf fCNNG VAwvJ54CF1 GyxGX v8yfPa3VaC RNZaR 8IE5w+Xsa9 VPhBd 0Kt9ykCR4I Zs4jm 0mQF9DNT5a MUcr4 i8+KzrvwnO gyYdr 7nr7CqT2wT gEphQ /RH8oVv9Tc 4+W6C 1Vrj+UNKqA wno/O YxtJRBU2Ro cvNOM 8Y4Remu3xJ QZGD3 u77ZBB76Ea ekQE5 GES68DYkH5 iCs9p X5TvSfeUuU gV4py fRee0Cj7cT Dtiuo c+BjmkTjlt anLn6 VPg6JsCBPs V0bbt oYU8i8hWST Z5jpl xVP7tbPZUY EV1jA 7PllYVOew7 8BBRc gOsdklImvp OZdB3 J5mXI7dpgj /KXyZ O6P4SMAL64 ezPEg wDmm1DwqPD Eu8Yu +OmaIzNsWD KqM8c d7GpzQDm6h yl62J 2TgxZiMEpj uBDMH rttw7K5UC+ Xegtl bA+LMAI978 aDCAB LHyTdvhECj wS6tq zO90dXGE9J 8EHWx LkN8onx1LJ rQ8Pw tNXp048s/h OPqgC 7os325DVDH Vf5Y5 mtxWMHYvAt /CIDJ zmg+8MIdYk x60O+ p2FzjZD9Kr D3Ml0 EnZwRUSE5P V1Lcr J2HGDpru16 QDKJT Z71U6tTDO7 nNZBd mcOGglspoi XJ3jx hoBGeuDDNU nY0hU hGhBGaCCkr /3Kof 9Qs1yDU/Az SYoOB 6+0G/DgA1C mjxlF m2Vd5hSRJS MOZw5 UekoempGBE b/uUR QSK4x5CK9k QlyTC EUJ18rZz6+ FyRPP X670wzvAOC uE4+l +Wlal+UiCr +Jpuo 59GqFXTZuI IgwyV /kfaS5oCJp bSCW8 oQuZLQo8Zo ccujx 23xTbVWUC2 tjZsF DThR98RE1z Z1neT Ef+hnab7Qz IwkV+ b0LKZ8FXO1 UNPkV P+6xaoA7Qa y7j/5 UkcFRCqSb8 S1ftI CYTuuDczk7 XZNFl 3LxTgLY0gE +vbk6 eQ/h2tJHde LbMEr QUSNVVxxf+ ivlXf jCQoVq7REM pMras qnXZe02V1r C+VEZ LtDCnbj+oJ /7hT2 IWq17GnncQ xECst rxDJcApFxi /hg4A T1UMt4O6L6 vHD76 q62bCPCrbN d/margarita nGiY8Oc1dl rrRo+ IHt/EMsrrb An7dN HAkyU6/aLL pn7pg 20k0TE0fEe gJYgG 4+h9SXq/Ce 4o3pM 8ZZ1RZj5vA R1SW8 7dcvoVIkJk llVJ3 biEOGx5E/t zciGC chlcxGOFni +XE5F qK3MPKNQ5H oT2Xf yREN0CjGbT qu83g ipTApGrt+4 DgYZM tHJ/tIzaJt bFYND 7mR5PVHXLD dJsPS 8QUQ37BTIm sIOHU 68r8FZIbjd 9kXhe Aql4KKRL0v +tbZN tpFgHjVvoM 6IpP9 pq4ceJfTC9 ihHZ4 ZgkFyILuWI vwhFe fomOvFx5PH +znWf 9Jf50jhxVE o+a20 KyZmNYw29u NFJ0U RAq+epnXZ2 OvulA KxTOx1Ppa/ 4LMwm ysc4sZnO7M G9oan 9RXY1Ewmhk CnFSg DoxyQnAEcB BdDrC a6fnpv2GsC C2mk5 G5DkRH9ucW mw+Eg mGXOyl/tqI qKz2w 9qTxLUTZMm JyOe7 z+Z8BA6a3L 8xciL S4AWEzo91l Vg2IV CWJE3u3om2 8P4RG E/GpkYnOA5 81PJ9 wTjWI1+Cpm mG238 ov349OfjHi thkGt KM2a9cqboR lN812 hOOpAlamgx htt63 gdiNvxAitr Krq2O JaNkK0Eu1H m+3/m CMnMOcYeyN Fa42x 24RvD8SvA4 ow9fF RjiXdWdUdv YMzwd TZ0QDIBnzD mhTki 9XvDAiOaNF RGejy IsQmQWldfJ 3+tqt uxOXC+D9w9 9Ynam pa+dCmO24w blq+7 e0mIzNGhOF YLbnJ CO+vHURZQp e+qq0 sqp7L+VFbE ReRIv jG17UM+qja 5NtBK w0XmC26piq u3qF5 d0CSFvJ4tn I5I8W EROrKLyqtD ieYfJ Tm6lBMJiCB XVKbe OjwXJVpEXm jAKRh 4+wbD0awB3 5RJLl nXKCqBapSO 181jF i4+Scciznk Yqczx wkUBxFiBDo EsWuI Yj0l+0dvbO xFtHh jWng02iF2z DcpLj JE4CU4Y2OX Hd3tw 6ffp7zs53i 2CMSk QIDj2SVV8H Urmrj 2al6SIpBIk UMkfR C92xVvF3HL cuPSF rAB2w11/C2 OyS+J NNkJ25G15I rLMPx atbmOh6/OG JjI3N BlN0JrNxjI Ar3uK GJTT0j8SMn lADd1 NLxHJH+PPF a5QOc 0RSzYX5pMi +Lb9b qlzarwF3vg OFVrc MzqXpeuW3I 9dPo5 +hI9fXk86N v9OK6 HLVVoQW9vc QtbzO bYHyP0Px9H ZJVCj LXoYtV5hKU icaIa EmhBxRoSME sNguU 9UaOsFiMSO mwSe/ 4C1VgCd2df ErBjo GtIYXte2VK z3Qrj iADrq6I9TR 55nsJ QYbskPFnlZ QtmPo CxfUM4wMQX eGDJZ 0P5fllLq7j R+zll 8eg60lBcn2 kVRpe zbL5PItbLs 1zReP z6rTiC1xRV 0ILHE 6LqK0+hYQC orul9 zjC83pag1R xA1Gi 2upwoj0tUG uf9cs 5WvuR0CNN1 TsyHw lZ7cNXHtQN 4t7Pf ozADoYgZfX 8bTFX ZOHhgNp1Z4 0WT8a VshqZiOjxv 7GIlt 0tA3qJ8HAR xN1sN 6i8Yf0NVXj N6dfy 33iCngcoUG vqJem 88Mct/LGfD n+Hk6 TsPXO+CJSd 8WrR4 d0OUbZnqS2 txOnM PG9QIp/7XW ZhprU Ks2U1aekBZ bK0iW rKryjel3Lz /p0sd RN/LFNUXaU jstoy Rtrf9hfLz9 l00Gb h5clSVvG/h sRPX+ 6Suqk3Okei 1N94q XN4YJbxCn2 2zIDx hx8/aRftQe TguiF PkwQzCh5Jw KAstC SekjqiA7Dc HEGYJ KnwiejhRGZ tg+TX kN/qjAF6SY LvYyQ FoRQ816BnV MfU4g rCpSwAJCHF /Zmw1 BkZpD8wFcZ +xik9 Pah/LXZ3dc I7h2r qMBAbrBOAy IAZlC ncP5Rwm8lY ypHIt GJdKK+sK6t q8I8r IosxaOB0mX QyvFm DPhs19GX1s Su88G o2g7R2bbas SMM3K lO+c9xbnkJ 032k1 k1JO1VH5+W RcCV6 5hGUnCP8jV Lntgn emkDZYMKgM 8SsvH UKj1SwvH5C 38W5t Prm6vEirDa owx3E TcZhvg78vj XApuv +73MLrDyzZ KRM/9 5E2JlzO1lv kqplT CsA87OLqMH BMwR/ ydIb5MjSKo rmCdx Q9Z0cmZprS fvRH1 3YE8enBphr 4gjZN s8ExXZUF/Y v93AF YRuin0TStv uhsEF lguKqJg33z 44n3g FSiNhgAA6g zkuKz b/H0oa1BQQ Yn/HG IAc27im/OY xcVjI 2PMTHj7ADL 7xXiS NFoKSED4fo tbSzz UT2hPU0OyE 52HnT oeDKwLKBrr /e3ZK Q7DBlTSZbd ThWQ3 IA08SgcMNd H71TR g38HA/6/dg bBVHf 4hFVTL/Oze +/oXJ jugserzcML TJEOk 7hlg23J/Li 7CwVQ d4w+kQVTXG EBvW6 AZPGOuIJzE y0uaK Jwm2CEv1YL p8BEJ /joqPH+8M5 OvPZC xk7XNQoGgI 3ITe7 n1oRUzoKm4 xCY4A Dc7y9QKidA 30CTh t+jsflb1EL 2NE17 XSD8/SigJG eXc7o MRcqhJP3og zlI+m XG2e4bhA9F JbOvz S+7gY4DQc4 DJTcp GptbdlHOTT f2QQy BCnXcIo+lP 0aciB 26l/Hs3z+F gKY7a dGSzyw2vD2 mbWlV /TcTuTa7Ey zxsvO 9KK7v6qM7+ WfX/l kct6KcvU6V TiiVe O/SXUJYyAZ lN1jA N6oq7h3Hbc +xTNz avZS14nB00 O8d0y wZvdGddaro O7uUX 6hZfQ1+Taqueria sP5RU 1/h5UD6Xne KPCUu 51G3hzS31z 3xhNg ENEyOT4wwO joBVT Fjpj7/M1aI iV+8R 4Nmla3uoSG 5vLz0 lNU+WvOuw5 qcRTf xAl4r/e8AC PlpUl DVFDwI9w4N 6s23U 3z/1xB8P/O 0IKLq orgxgnJZeQ +rqal 7cEtkXN5aG 31zel /sXvi5QF6/ bY+yO 2/exzYH5KE 1uR7Y ESKrovLe7A XzTB/ VQgPe63Xo8 CEpUn LNnnQ7zbFp rf/oW ijzB0KTy/A jm04H QrvqS0Wz+q ccai9 dqCGwb2P/W WkVxz nE8UoAhqR9 H31SY idJ2YIJDat gwiQL WSVlP1lyU/ 7eIvC 9G8rY433fk Oitrm t+jvm7ZzjY G3Qpl bmRzdHJlYW 0KZW5 ob9IuZkEkI DAgb2 RxAnq4H3cm b3VwP ZfaFt2HzhP uc3Bh iaMaR6shEQ B0cnV vP2jrNtAxs 2UvQ1 MgMTMgMCBS Pj4vQ 29udGVudHN bNCAw IFIgMjYgMC BSIDU lWAQBYV7Gj XBlL1 KrA6QeHvCj b3VyY 2RwIOkdM16 sb3JT zJToTGo7Z6 RlZmF 2fGGYY5KwA TMgMC MAGw8nYNJe Y1Nld TYmO6EDZpJ vVGV4 jRLvJA6lR8 VCIC9 JbWFnZUMgL 0ltYW hcEK4zHe1m dDw8L 8zpOo1aPKi gMCBS J4uhbNUnTa AgMCB ON3ybW4SwL jEgMC KWN3raAQQw IDAgU j4+R6aNMyq lY3Q8 AB80TfE3AF g2MiA yNyAwIFIva W0zND C1QlFaXuSl MCBSP j4+Vb5VEKQ lbnQg MTEgMCBSL0 1lZGl tPv36HwCeB CA2MT IgNzkyXT4+ CmVuZ I1lnwybFrK wIG9i hyl5BW1Kdc 91cDw 7B6QmGCZly nNwYX KrthN9S3YZ Wy9JQ 0NCYXNlZCA xNCAw IRHyQa9eB2 VidHl eBO6Mz3ZaV 0ZpbH Mous4AnRF6 ZURlY 27xRP1TNGP yaXhb MSAwIDAgMS AwIDB bI6Q7bSIbL E9iam YpyT6Qe3Yt VHlwZ TKtS6Qco12 1cmNl eow8J5Iuu2 NTZXR sP5HOMc0GZ Xh0L0 afOQcsGz0V bWFnZ LLlXW3iT7R JXS9Y U7CvUAS6XQ wvaW0 wKXY1QdAdO jUgMC BSPj4+Pi9M ZW5nd GggMjAvQkJ veFsw IDAgMTgyID I5XT4 +w5UuKHGgG nic08 /MNTYxtDAz UHDJB wAUPAMPCmV uZHN0 cmVhbQplbm RvYmo KMjYgMCBvY moKPD wvRmlsdGVy L0ZsY CYbGPSfj0H lL0xl nax7kHCtUh Q4Pj5 txWXqND3Ja JzdWW 1v2zYQ/t5f QWDAY AOzzBdRIlv sQxJn r5m4OU7qX2 sUgyK uejC6UVcdL Pn1O8 oWJduRGskt hi1GY vNA4M2v1hY 3ZBC6 N6CHjHCAQb KlxZF LHYvbUgqB/ Kifzp hNhEPRIEHv XunHs 4cJYthBLrc tShgm AA3NyvFRQA x+lzP Zz7KeOWN0g y9GDq OetBizMSZo En3qj MY/ve5+RpM /XiF0 Hgv4d4QJe+ XfRQ/ brmP1LqDix 2yLgb oqHeFXRPCe DtciI lv/xPeTdZx 2UY+6 AbSqWPx6KK WC2ba c9Pw3psEGc Kvhep 3GXpRzuUhW iyD1w oz5gxPBBbf NeYz2 w1VF7Kg9Xo m8/CV TwCS5Nz9JK zeVqj njx1L/rQsE OiryQ lOKA0R9dOl dFxs2 aRKrUAWzuS HbRTb nhA1zopfPP DIzH4 NhcHVa9+ax 5qsTY nFSDtQ+FX0 iuai2 OJZMf7Nylq sEi4H ocODz7tILI O3j48 kgkn34L9iC hOflh /qYNL3kl0N pR6l/ g4HH4LUL56 R4dVm XZBydOY/Sx Qy9RH VEvGvNeS0D tH+zX o6g4TVUtp2 UAVzL X+Sh3uqvLB xkfq7 ypyxge9fed fsE9y mmuDqSoCYd qWQwv Dm7OBn/fl5 NhVP6 w3mnGaqbMz SlgrF amOjI/T9W9 2u1Ms PhoJogVHUw 4zEAH IdiJjmrrbf HKLjW 3VtwNUO0hi mngZe q/cSEAGH9V YQco9 bmF1jfumhu rxnPB +rLEV3GONO 5TnXD NBgvmm3Sol HR04o z05SEt4ju/ jpSRW kdG8HgSoUv NP4ST OGBoOgQFl4 alESC +QhDLYF3wa LtJM7 vPswD3+SVQ u9ima JLO6j4XQ/V Mh9sy 8I6M9FnBU7 F06Ky gpPyQehlWe Ohixz csUxoftktH snarL M4zhAieSYc VZBKF DVvTmx1hIV tLNrW CUvlBwttRl NmFqH jRrhUDh3g4 C6UFx apelhr/ZEX ezNVd eVDYos2dH8 Pe+bq tiNsftvNhz Zzewy t8PdKAo0bd kukdL fW2AY/1fwr JKBHF aY6qDLRHwo LXd1t RXMBSrhluw LDbA8 0EWeTYoOVP /eWM2 Uai9CEDbqV II8He Gq2uIWElSO mYRd4 m6DOwXS0Dj 0qJYo NSpy2sO+oJ VGYjz SlCm215x+I 5rD0A /oTxRACjvk d/w5f MP3WgBekrz eERbI AIDz3gE54s Bdi5M zdAoJrqIVM Cilcg zksT+bQMpk cdiVO bhPLAUGoRj hb3Ay AXNy3V4SM4 hmwLz Bq2f2xluFB eYdLS pR7vabB/f+ sgY0H qm3JjxJTOB sfajb 9NQQcs2FOF OZSkB e/WjAAlv2z plrif lNzbOzq+Ms +2tXc rjmYGDx4M5 RIuVu JYmfNvbcVd ufVeQ 5aycDPctIq L6Z7m bKChNuUtk4 RAFHa 0pWujz8551 9Ie2/ NA/bn1iiz8 XbhHe FYgaI2bPAD UrRc+ EC+vLawMBE 69Fuu gC8iInoRDo HG2i7 wRHCrqij8T 6hbDr VbaKaghOlZ KKLBV 2Wp2JUsIL5 EsJk5 QYYv317GR3 av90w BpvlFNMuvk v2mJv XusvYkVOkt tfEzI r+aFnFHBmq 46R6u a1N3yiOfzb zci/m ueOs68koKZ Yhsag I/TO68p+J0 qehuG xjgGZkXWOC Q9elw 9PX2QIhQTL yuIan eVE3gyOqc8 iprP/ /68BTEShPh 7YjUu /BxQ7YepB8 ctayi CQA2rLiQEu 8KYs3 BaS6SoqSSh N1ZE1 fDu2Aq0L1n TnQLb 53YaNL0aBW ctjiV ZdKIiXF07T O3ACc MD6rcQZM2K RS+u7 hpQpvjltln sdX8l PklWQXxQaj VsPe9 xNwaoe1c40 UtPA9 fx35lhRXf8 pzrZf Lk+Rq5U/JZ DbDGo Nepx4pyTux WxcYK Tgm0GkhaMC MiWia I75j1EPsRH I32ts duyzTwMYnV LDPC1 hTF+/AiR5T eCFbr BNbgnWjmBF twS0J Vq1XezQ3LL vXNi9 miJ5ec415X 9Yl81 jO3bESqDUo WpUOE i/chJ6FuqM Hw6by Z77Rdq3eNW J7EgT AaLg4lokcF 17YZF YoxT5jhvt0 oxObf ns3MQv/PZn F0y1O PbAewcm24R rFdSG NSHxxVHdNd 3dUkk fNQ+ekyiWF jEULe 1sXQEsI6KJ rc5Ov K69CvBHsuX bFmMP 7x0UQGLVey uwmiG SUTLll5oW4 PyxIb XgplbmRzdH JlYW0 WBZ2md6TkS jEwID Ate7NzXab5 Pj4KZ S7jq6RrIpb gMCBv YmoKPDwvRG VzdHM gMjggMCBSP j4KZW 5aa6LlFbV2 IDAgb 5McNst8E6S bMTcg IVZFI9vETd AzNiA 2MTAgbnVsb F0+Pg plbmRvYmoK MzAgM CBvYmoKPDw vRFsx NyAwIFIvWF laIDM 2IDYxMCBud WxsXT 4+VuOpEH3q agozM XYmTZ7ircf 8PC9E ErP7QTPfHd 9YWVo gMzYgNjEwI G51bG pyMr2AAG1j b2JqC qQaIMGyl6B qCjw8 R2UzSDegTQ BSL1h DIoNyXeR5K TAgbn VsbF0+Pgpl bmRvY moKMzMgMCB vYmoK PDwvRFsxNy AwIFI xCHdaLHJ5O DUyNC BudWxsXT4+ CmVuZ D6qrazkUAW wIG9i ztc0AE1BTz E3IDA gRd4AEPoaO zYgMT b6LJ62tLin Pj4KZ H7bb9ZrTkR 1IDAg z1VpJoa2O2 RbMTc dMXZVB6vAW iAzNi AzMjkgbnVs bF0+P gplbmRvYmo KMzYg MCBvYmoKPD wvRFs xNyAwIFIvW FlaID K8CIQ6UYPe dWxsX T4+CmVuZG9 iagoz JmHoWP1odj o8PC9 NZbS0DTIyY i9YWV ogMzYgMzQ2 IG51b XcsVf3FBG5 kb2Jq JfQ8UCUmm5 JqCjw 8P9LoOKddN CBSL1 hZWiAzNiAz NTggb nVsbF0+Pgp lbmRv YmoKMzkgMC BvYmo KPDwvRFsxN yAwIF IvWFlaIDM2 IDYwN yBudWxsXT4 +CmVu RJ8pnhz6RC AwIG9 xcpp8LT4VO zIzID BuAh8CAIut MzYgN ed6BU59tHj dPj4K BE8io8KaSv QxIDA pz3SnPvs8X 0RbMT snYZKPK5jT WiAzN iAzNTggbnV sbF0+ PgplbmRvYm oKNDI gMCBvYmoKP DwvRF syMyAwIFIv WFlaI GG9HHRmBKA udWxs XT4+CmVuZG 9iago 9IbTeGX0hg go8PC 6WEiI4PLQo Ui9YW VogMzYgNTc 5IG51 oHxmHi2PYB 5kb2J eLaJ0SJAmc 2JqCj w5P3EbNtAo MCBSL 1hZWiAzNiA 1MTQg bnVsbF0+Pg plbmR vYmoKNDUgM CBvYm oKPDwvRFsx NyAwI FIvWFlaIDQ zIDI5 MSBudWxsXT 4+CmV sGM2jnwi9V iAwIG 2pzat3CS0H WzE3I ISsSt0PMDp gMzYg HoX7AE88bC xdPj4 JIK7gn3BgV jQ3ID Hbt3CeYuh7 L0RbM AklQNBWB0l ZWiAz HuB9HNSqrq VsbF0 +PgplbmRvY moKND ggMCBvYmoK PDwvR FsxNyAwIFI vWFla GLCwQJT8UU BudWx sXT4+CmVuZ G9iag n9YGLkVF3f ago8P M9SCfI1RLX gUi9Y WVogMzYgMz U4IG5 8fHwcDh9ZL W5kb2 JqCjUwIDAg b2JqC pl5R3UaRFc gMCBS H6wUCbGmAg AzMjk gbnVsbF0+P gplbm RvYmoKNTEg MCBvY moKPDwvRFs xNyAw IFIvWFlaID M2IDM 1OCBudWxsX T4+Cm RgVK7yfic2 MiAwI V8hfha4LW2 EWzE3 WDGpKa5QRE ogMzY bJiI9XE60y GxdPj 2UTD8bc3Rg CjUzI HMla1KdCcl 8L0Rb MTcgMCBSL1 hZWiA rWwU3EVPru nVsbF 0+PgplbmRv YmoKN TQgMCBvYmo KPDwv RFsxNyAwIF IvWFl pMPX7ZRN9B CBudW xsXT4+CmVu ZG9ia ya7OVWaAD3 iago8 AE7FBqQ4VW AgUi9 YWVogMzYgN TEwIG 05yFgnNk1V ZW5kb 1KsNeM3BNI gb2Jq Ifi5F1ZgXH cgMCB DP7rGKnWzO iA2MT AgbnVsbF0+ Pgplb mRvYmoKNTc gMCBv YmoKPDwvRF syMyA wIFIvWFlaI DM2ID UzNSBudWxs XT4+C kPyNN3lmgi 1OCAw JM7olfg5ZT 9EWzE 4KIYmYv5VD VogMz LcMoUmXE91 bGxdP j9SXK5er5Y qCjU5 THFtw9DfDx w8L0R bMTcgMCBSL 1hZWi Q4QsH2AiIn bnVsb F0+PgplbmR vYmoK NjAgMCBvYm oKPDw vRFsxNyAwI FIvWF xkCRP2HZG0 NiBud WxsXT4+CmV uZG9i dax8KSVuYY 9iago 7FC1EBiD2Z DAgUi 9YWVogMzYg Mzg1I X12hKyrWr3 KZW5k g0RjSrThPX Agb2J zHpc0A8PuL TcgMC WAE1pGKnZi NiAzN TggbnVsbF0 +Pgpl bmRvYmoKNj MgMCB vYmoKPDwvR FsyMy AwIFIvWFla IDM2I DUxNCBudWx sXT4+ MpVnPT3mow o2NCA wTM2ctfu5A C9EWz B2IJNlKm6B WVogM hVpESG3BB9 1bGxd Sn7MLE0yh6 JqCjY 9KICmp4WwX jw8L0 RbMjMgMCBS L1hZW wTqNeH3AzP gbnVs bF0+Pgplbm RvYmo KNjYgMCBvY moKPD wvRFsxNyAw IFIvW SdpACU9JLU yNCBu dWxsXT4+Cm VuZG9 bpho5SdMoJ G9iag p7IU0YJcG0 IDAgU f1XKGuzGlN gNTUy HS61xZetFs 4KZW5 pz1GgXrS4N DAgb2 KeTgk2D4My MjMgM HFQQ8eKOvK zNiA1 MjUgbnVsbF 0+Pgp lbmRvYmoKN jkgMC BvYmoKPDwv RFsyM yAwIFIvWFl aIDM2 IDUzNSBudW xsXT4 +NeZxUE6jf go3MC AzBX3vpiy1 PC9EW bC9RXSyFi5 YWVog MzYgNjEwIG 51bGx eFn4AEN5cc 2JqCj xaQHAok2Ny Cjw8L 0RbMTcgMCB SL1hZ TgEzYfS0LB ggbnV sbF0+Pgplb mRvYm oKNzIgMCBv YmoKP DwvRFsxNyA wIFIv FNhzKTO1SE YxMCB udWxsXT4+C mVuZG 8ligl9AnSo IG9ia gf5JW0JSiD 3IDAg Zs8QTYqdMl YgMzU 2QO34dRlwD j4KZW 8fv7VuMpm4 IDAgb 4RgZfr4D2C bMTcg VEJGU7vLTw AzNiA zNTggbnVsb F0+Pg plbmRvYmoK NzUgM CBvYmoKPDw vRFsx NyAwIFIvWF laIDM 2IDUxMCBud WxsXT 4+VvBnFK8o ago3N iKjOH5zjbd 8PC9E WzIzIDAgUi 9YWVo gMzYgNjgwI G51bG pbWr1TGU5q b2JqC xk2CFYeb1P qCjw8 E8GlXDmqMR BSL1h YToT8EcK9S DEgbn VsbF0+Pgpl bmRvY moKNzggMCB vYmoK PDwvRFsyMy AwIFI yWZzsZOX6A DUzNS BudWxsXT4+ CmVuZ G6srjh3MTY wIG9i pzi5GG7AMp IzIDA yHs0HLZwsQ zYgNT O5VB51wRtk Pj4KZ B7nm5DsIly wIDAg s5CxIso6G0 RbMTc nFZPKZ4jJD iAzNi P6ZXYetkFp bF0+P gplbmRvYmo KODEg MCBvYmoKPD wvRFs xNyAwIFIvW FlaID H8ZWJrNCTw dWxsX T4+CmVuZG9 iago4 TpEbZY0vjy o8PC9 VBfJ4EDJiW i9YWV ogMzYgNTEw IG51b EjmTu1OUP8 kb2Jq CjgzIDAgb2 JqCjw 6P7XaXQkeQ CBSL1 hZWiAzNiA2 MTAgb nVsbF0+Pgp lbmRv YmoKODQgMC BvYmo KPDwvRFsxN yAwIF IvWFlaIDM2 IDIyN CBudWxsXT4 +CmVu TJ5allb4NR AwIG9 kmfs7OY6GL zE3ID RdIt6LFXzw MzYgN DZoWX10fPi dPj4K KD3jc4AhAu g2IDA pg4AbAem0L 0RbMT lpSEAEF5aN WiAzN iAzNDYgbnV sbF0+ PgplbmRvYm oKODc gMCBvYmoKP DwvRF sxNyAwIFIv WFlaI XS5QXJ5NZP udWxs XT4+CmVuZG 9iago nXARhFR0ai go8PC 2MLH4ir5zs XzMwZ XU9GCH5AFF iY2Qt JBHbHn4dQw Q3LWV bEtSpWmL6K zNjZC kgMjkgMCBS KF81N bHnCAD0Lp1 xMTdm LTRlYWUtYT FhMS0 qXqy1GNwbK zZmZj EpIDMwIDAg UihfN rC8OUK7QnK tMzFj ZP46HLTcKS hlMGM eGZQ7X5SjC mE5MT G3HURxNTLs IFIoX jS5FBy1QHQ lLTZh OTYtNDVhOC 05YzB gPYugGeW9U jM5ZT UyMikgMzIg MCBSK M70GZSkDZP 1Yi1k NDViLTRiOG EtOTQ vPP1iNUC2M zVmND dkZjEpIDMz IDAgU rzaBeI2TBC wYzIt GIXuKl93Vh A4LWI 4OTAtNWJmZ GQxYj liYTEzKSAz NCAwI FIoXzcxOGQ xZjQy VYT5J9UxPN FjNy1 yTRQ7LGT5U GM0MD L0TZJgDpgt MzUgM BWYRG51PFV jMmNj Uu87SNAeFJ RiMDk kCyG1RD7nJ TUyNG A8C7K7LfXf IDM2I DAgUihfMWN lNDkw YzgtMjZkNy 00MjV jYHh1QVUoJ WFlZW C1VMw5BYPj KSAzN yAwIFIoXzF kYTI2 YmUzLTBmMz ktNDk 1Ez65DUS3X TQ2OD nbPbr9STRq NSkgM zggMCBSKF8 xNTk1 J9NgEu6bRa RkLTQ 3NDEtYWRhY S0yNz SbJfw6C7K3 Y2YpI UK3BHGnRkm fNjU5 H3B8EiUpGZ MzMS0 0NDYyLTlmM WUtMT ZlMTdmYjYw ODI3K PS3WNFnEKH oXzc3 YWEzNDMwLW UyZDI rXZToCu4oS 2Y4LT djZThkYmUz MWRhM ykgNDEgMCB SKF8z MjdCNjkxRS 1BNTU 4LTQyRDctQ jlFNS 4RENPmYhH3 NDA2M DIpIDQyIDA gUihf PJn1PTN0FE ItNjk cVG33ChSbP ThjZD EtYTVmYWMx OWZhN 6NkMIT5MsI wIFIo ElG3NDMsPQ gzLTJ kMjMtNDczM i1hOT h6IFOkSSK5 ODMwY oE0OHuzCPM gMCBS RO0tHBDfFU gwYi0 4YWFkLTRkO WUtYj M2ZZ67IaLn OTJiN cD3HYHbETW 1IDAg UihfZGNmYz MyNjI sUtAgCS67O 2YyLW V0ZUWnDuE0 N2ZmO TEyYzgyKSA 0NiAw IFIoXzVjYz kwNWV mYAN5KjrpF GI2MC 84BIMjXMY4 NjNlN GNmMTAwNik gNDcg QCIHVW4aXu FhMDF gNM6aCMZ0E TQwM2 HrMkC5Uc2a NWM0M TcxYzAyMGI pIDQ4 IDAgUihfZm FhZTk wMWQtMzQxN y00ND MxLTgyODQt MjM2M zZmOWJkYmY 5KSA0 OSAwIFIoX2 NkYTU 5X0IwIJZ4O TAtNG ZcKW88PCH3 LTkzM ZD5OHP7LLU jNykg NTAgMCBSKF 9kNzI 1EJriJk66H TM2LT QzYjctOWUx My0yO Ct7CBEjWrJ zZGUp IDUxIDAgUi hfOWI 3CATjA4WvT Tg3Zi 11VZG7ZRZq ODgtN tc8WPO4Apn lMmUz JBS8LtLjCL IoXzk wDNU7ZdKpH TgzMj BvZHXoGq8r NWYwL WYyMmUwMzZ hY2Q4 MSkgNTMgMC BSKF8 0HpK3MGY3R C03MW D2ZKLwHQWk YjdkN R69ATGiWuI zZmYx JjVaQZR0RD AgUih qUvmkPKN1Z DgtND snWT96W8Y2 LTlmM GMtYzgxZDQ 0MjY1 BPh1XEP3CA AwIFI oXzQzMWYyM jA5LW Z4EzzeRIke My04N DFmLTIzYzA 2ZGY3 MzljOSkgNT YgMCB TER5QGcDfE TQxMy 01ODgzLTRD MDMtO MS9TD9TNXa 1MkM3 RTAxMjQpID U3IDA gUihfMGFjO DI0NW QmBEH3KY75 ZjVkL WJlYmEtYWN jNmQy GVL0IaMdRY A1OCA zNQFfE0WtF 2U0Ym Q0IFBqG4Wc NDI3Z G10ZTKdSCt lMmM3 AMbwCTQ3Tt kgNTk iZEUGVE7lV zFiMG H4LB4bXxDl LTQ4Y zgtYmViNy0 xZmM5 MqSwSFJ8Fh YpIDY wIDAgUihfN mNhYm EwMDEtMjUz Yi00M WMyLWFlOWI tOGEw FJJ2SYS8RD RiKSA 2MSAwIFIoX 2FhMT Q8SqBtIBVv NDQtN AZeRA88YJZ jLWQx McPsWuW3UP k2ZCk gNjIgMCBSK F82Nj HnMFJhFa3b MzExL TQwZTYtODU zMS03 OGVlNDViNz FkMTg pIDYzIDAgU ihfYj SzMEM6EJKp MDJkY w81IOYiBVP 0ZTgt Z7BgNDPqNM dlMmN gMLZ9UFHfJ FIoXz b3PDBzRjP5 LTQ3Z GQtNDQwZi1 iZjEw XOPsYvB6Cg dhZTQ yMCkgNjUgM CBSKF 5sURVeZaK7 Yy0yM mNmLTRmODM tODAx Rv1aXqFqMj Q2Njd rNDacVGO2C DAgUi dbLUC6LEI2 YTUtM QT8Wk25AvG 0LWJm ZjctNWMxYW NhODV rFxZoLMC3W yAwIF EhU5PxSkcy MjdkL TliMTYtNGJ hNC05 MmIyLTVkZD E0NmJ mMzgyYSkgN jggMC KEQW8uIfGj ODRlZ A2ySpTaETX zNGEt KAJ9Ie0uNM E1OWZ jMGVmYmYpI DY5ID AgUihfNWRj NDYwZ TKqMhD9BN3 0YTE0 LTgwOWUtYj k4ZjM 1QXd1W8DhU SA3MC AwIFIoTUtN Ry0gR BxkW3qyppg lIFN1 gD4wdoacTZ cxIDA gUihfNzhjN GE0Yj YdPmZxEM72 NTQ3L ThhZGYtOWU wYTI5 XWh9DYW7QK A3MiA lVADnY0R3T zNhYT GpLQD0Y9Pb NDhlZ H66CkBpYJt 5YzA4 ZjNkNzQzYy kgNzM mWGNEMH85B Tk2ZW Q8Fv23MWC8 LTQzN WMtOGUxMC0 xMjQ1 COU7HXWdLW IpIDc 0IDAgUihfY TQ3Zj YxMDctODcw Ny00N ZViHOb3KZe tZDFh LGNgPvC6ME k5KSA 3NSAwIFIoX 2UzZm JhNzhhLWRl MzMtN CMzCn0cBoo hLWQw OAO0WiN0AB JiNCk gNzYgMCBSK F81Nz Q0UiAmTz39 ODk4L EZ9CZFqTpf 5My03 CNPbQ1M4Wk U2NTc iJLf1IGKrX ihfM2 FhOTFjNGQt YzllZ Q63BsJwSYK 3NjUt NzIyNGZlOD A1ZGE kOQZ2EQMjU FIoXz j3FFU8COOo LTk5Q kItNDVDNS0 4MTk4 HBrBLcR5NY IwOTU xNSkgNzkgM CBSKF 55G0QaIHNr My1mM 3J3YXPwAPD tODM3 Ug4cOnY9Pr U2MWU kH2TsQTrmI DAgUi hfYzExZjk0 YmYtM dykGz41VMR jLWFi ZURyZ9T6QC Q1ZjQ 5SGiqCQE8L SAwIF TfG3NwZ4Sh OWMyL MD3CmNuJVT jYS04 YzdhLWRiMm M3YWV iMjgxMSkgO DIgMC WOCG34WIN4 NzA3O Q0uJcezWML 0ZmQt BZp0LM4tNZ E3MWQ 7HeV6GXIjG DgzID AgUihfYjc0 MTk3Z TctYmUxNy0 0ZWYy LWFmZWItMG ZjZDM 0ZjRlNTFjK SA4NC TiISEgG3S6 MzZkY mIzLWNkOWI tNDhl FT61TLnxIO ZkOWY 5NTdiNmNkM SkgOD MeNLNVON8f NjM2N NBoZH89BGF 4LTRm YyAgACQ3Le 1kNTc yNWIyMzYzN TkpID s9NWWhKmvl ZTI0M GK3N5KqJFV zNC00 OTdjLWIzZm QtYTI xDHWqC3PaJ jcxKS J8EwTaBHCc Pj4KZ W6us5CxJqG yIDAg q5IyBug8N5 Rlc3Q xJBkNIt8fZ GlzY2 hhcmdlIFN1 bW1hc ujrR1FgsBw lPGZl ShNfVVO0CU A2OTA wNzMwMDYzM DA2OD AwNjEwMDcy MDA2N zAwNjUwMDI wMDA1 MzAwNzUwMD ZkMDA 2ZDAwNjEwM DcyMD J3FA2vPRBy ZW50I DggMCBSPj4 KZW5k f1PfNui3EH Agb2J dNst5W34dO ERhdG UoRDoyMDIw MDQyM jEwMzUxMy0 wNCcw UXxrI6LcBW F0aW9 vXRF8LZdLS jIwMj AwNDIyMTAz NTEzK u88HoXvCtl vUHJv ZHVjZXIoSW JleCB HYSAyR0QtT XRvci H8VyxkRT0m NS84N AM1LZuNWFK BXVAv CzkncS4qgZ ZpZWQ gdXNpbmcga VRleH QbGr8zFfxw YnkgM VQzWFQpPj4 KZW5k h8HhHukuRE YKMCA 4OQowMDAwM DAwMD YvOWQ2UXL7 IGYgC jAwMDAwMDA wMTUg MDAwMDAgbi AKMDA wMDAwMDEwM yAwMD AwMCBuIAow MDAwM QErWEu3XAN wMDAw EE9kWjAdJV AwMDA zMTQgMDAwM DAgbi AKMDAwMDAw MDM5M CAwMDAwMCB uIAow MDAwMDAwNT I2IDA aAMCoQK9eF jAwMD AwMTkzOTAg MDAwM DAgbiAKMDA wMDAw MDcwNCAwMD AwMCB uIAowMDAwM DAwNj QwIDAwMDAw IG4gC jAwMDAwMTk zNjkg MDAwMDAgbi AKMDA tAHYtKLU6T SAwMD AwMCBuIAow MDAwM BG3JQG6BMT wMDAw OL6gDxErVD AwMDA 3NTcgMDAwM DAgbi AKMDAwMDAw MDc5M iAwMDAwMCB uIAow MDAwMDAzND YxIDA gIASwAY9sK jAwMD SuBPA0ZGAd MDAwM DAgbiAKMDA wMDAw Ceq5OpNmYF AwMCB uIAowMDAwM DA4Nj UxIDAwMDAw IG4gC jAwMDAwMTI zMzIg MDAwMDAgbi AKMDA wMDAxMjQzN iAwMD AwMCBuIAow MDAwM QGcGzZ4RYP wMDAw KH9ePgMyOL AwMDg zNjIgMDAwM DAgbi AKMDAwMDAx NzAyN iAwMDAwMCB uIAow MDAwMDEyNT M1IDA kRWMwVW6jG jAwMD QlHRT5ZFpk MDAwM DAgbiAKMDA wMDAx PdG3WpAqWM AwMCB uIAowMDAwM DE3Mz YzIDAwMDAw IG4gC jAwMDAwMjI xOTYg MDAwMDAgbi AKMDA wMDAxOTQyM yAwMD AwMCBuIAow MDAwM WR8KAlhULT wMDAw LA5tVmWxFU AwMTk 1MTcgMDAwM DAgbi AKMDAwMDAx OTU2N CAwMDAwMCB uIAow BCOuGMS6Qn ExIDA nHLGwLE7lA jAwMD MoRHn0VTnz MDAwM DAgbiAKMDA wMDAx OTcwNSAwMD AwMCB uIAowMDAwM DE5Nz UyIDAwMDAw IG4gC jAwMDAwMTk 3OTkg MDAwMDAgbi AKMDA kHRXkDFc3J iAwMD AwMCBuIAow MDAwM KF8ALmzCBL wMDAw IG1qViHkKH AwMTk 5NDAgMDAwM DAgbi AKMDAwMDAx OTk4N yAwMDAwMCB uIAow MDAwMDIwMD M0IDA jGDCpYO1jO jAwMD AwMjAwODEg MDAwM DAgbiAKMDA wMDAy MDEyOCAwMD AwMCB uIAowMDAwM DIwMT g1EMAsKDSw IG4gC jAwMDAwMjA yMjIg MDAwMDAgbi AKMDA dXTIqYQW3K SAwMD AwMCBuIAow MDAwM LUyCaN8RHD wMDAw KO9qXzKmAS AwMjA zNjMgMDAwM DAgbi AKMDAwMDAy MDQxM CAwMDAwMCB uIAow MDAwMDIwND U3IDA yBBYeMC8rP jAwMD NnJxH9XVRc MDAwM DAgbiAKMDA wMDAy CGD0IVFqIO AwMCB uIAowMDAwM DIwNT r2TOPiSWJn IG4gC jAwMDAwMjA 2NDUg MDAwMDAgbi AKMDA uQAYgFPL7M iAwMD AwMCBuIAow MDAwM UFnFyT6ZJK wMDAw QA9tTgDkES AwMjA 3ODYgMDAwM DAgbi AKMDAwMDAy MDgzM yAwMDAwMCB uIAow MDAwMDIwOD gwIDA jFQDtCW7oI jAwMD XfSnC1Fafp MDAwM DAgbiAKMDA wMDAy JJz1NBDwYO AwMCB uIAowMDAwM DIxMD IxIDAwMDAw IG4gC jAwMDAwMjE wNjgg MDAwMDAgbi AKMDA wMDAyMTExN SAwMD AwMCBuIAow MDAwM DIxMTYyIDA wMDAw AP7hJrWjQD AwMjE yMDkgMDAwM DAgbi AKMDAwMDAy MTI1N iAwMDAwMCB uIAow MDAwMDIxMz AzIDA mURKzYF6bP jAwMD AwMjEzNTAg MDAwM DAgbiAKMDA wMDAy BFF3KwTbSE AwMCB uIAowMDAwM DIxND B7WRFpWTKy IG4gC jAwMDAwMjE 0OTEg MDAwMDAgbi AKMDA wMDAyMTUzO CAwMD AwMCBuIAow MDAwM XBsFKf0FZL wMDAw EB0nFwSsEU AwMjE 2MzIgMDAwM DAgbi AKMDAwMDAy MTY3O SAwMDAwMCB uIAow MDAwMDIxNz I2IDA eSKRxGD3iH jAwMD QgGlO3ZyCh MDAwM DAgbiAKMDA wMDAy MTgyMCAwMD AwMCB uIAowMDAwM DIxOD Q8XOAuLKNe IG4gC jAwMDAwMjE 5MTQg MDAwMDAgbi AKMDA cJDDkQXe9L SAwMD AwMCBuIAow MDAwM OLiNIP4EEG wMDAw HJ8rJaRrGM AwMjI wNTUgMDAwM DAgbi AKMDAwMDAy MjEwM iAwMDAwMCB uIAow MDAwMDIyMT Q5IDA iVEZrXT6vY jAwMD AwMjUwNjkg MDAwM DAgbiAKdHJ haWxl qbw3RF9Wvq ZvIDg 2OFGvQh3TX CBbPD D5ABGrDUXs NzU3N CEfDqYfE7P 3MTA2 YjBkMzhjYj cyPjx kZmQwOWYyZ jZiNz YxYjQwOTA1 NTdjY 2VhNWYyMzM wND5d X2Bav2MlGg AwIFI gA9i6JYI1D T4+Cn L2BIX3gMHr ZgoyN SA2HTcbAXB PRgo= ID Date Data Source [id number] 08/12/2019 12:12:00 PM EDT [facility] Name Value Range Interpretation Code Description Data Supporting Source(s) Document(s ) Physician No [id number] QKJeL [facility] ox2SDFLQuE G9iag [place] g4FA1SqBJ3 [facility] 6S9wGUzC3V 5cGUv [place] Is0ijM8LZA NlRm9 isE8BOVx2E XRpY2 XgVR2es4Ij bmcvV 9taHC5xkYC uY29k oK3eWx3HNC 5kb2J qCjIgMCBvY moKPD wvRmlsdGVy L0ZsY OSsVUUxp2E lL0xl fkh0nTFsQX 4+c3R yZWFtCnicK +QCAA OrWUaHNQ0v c3RyZ WFtCmVuZG9 iagoz YRZif4PwVc w8L0Z giPRlez8Md GF0ZU FtN18wGC5I ZW5nd GggNjk+PnN 0cmVh uGe1mOBV7E rk0o/ INFAwNFAIS eNyCu EyVDAAQkMF I1MLP XNTBQtDPQs jhZBc Ls2UxKEHfK h+Rad kIgdUv1aMR yAXAL WhWf4SHE9w c3RyZ WFtCmVuZG9 iago0 PERnl9NmBe w8L1B lD0VHc6IrK 1VzZU 5vbmUvTmFt ZXMgN SAwIFIvVHl wZS9D DNGfdH6oI5 91dGx pbmVzIDYgM CBSL1 FuR3PyHSaa MCBSL 1ZpZXdlclB yZWZl euQnE6NpHI ggMCB VHm9LJV8ni 2JqCj cgMCBvYmoK PDwvS 3nnx9a6FJJ gUl0v MVzsAA1LBL dlcy9 Lq8ItqLDaE 0lUWF FeRi5oZduf Pj4KZ W2gr5LrLoG gMCBv YmoKPDwvQ2 91bnQ yRY5BjPTbw CAxMC AwIFIvTGFz dCAxM CAwIFI+Pgp lbmRv YmoKMTEgMC BvYmo NJa2DY8EQS XNlZC AxMiAwIFJd CmVuZ Q4izuehUfU wIG9i sqg1AY1OzE x0ZXI vRmxhdGVEZ WNvZG OeOICpH9Gl IDI1O TYvTiAzPj5 zdHJl US4DgDvaog dUU9k Wh8+9N71Qk hCKlN TxeXANZB42 SJEuK jEJEErAStephieA iNkRU cERRkaYIMi jggKN DkbEiioUBU bHrBB oF9EHpVAwV SWStG d+8ee/Nm98 f935r j86X9Slxgl a6AJD 8gwXCTFgJg AyhWB Zt21FVjZku YAcBD DHLZ3hS4FJ zs0IW +CJUpNO24P xsmRP 8U432EkK1+ yrTP4 zBAP+flLlZ IjEAU JiM5/L42Vw ZF8k4 PVecJbdPyZ i2NE3 OMErOIlmCM laTc/ FgF3c4zIOQ OfMyh RrXb0XE0dR w5Nwn 4984Kr9RnB AZF+c I+LkyviZjg 3RJhk DGb+SxGXxO NgAok xrc7dSJMZl tY5Io GzAh31dT8P jJX/D LD5tBkoKGD 8XOzF ouEiSniBkm XFOGj ZMTi+HPz03 ni8XM YY62cUQtQs iZGVk q1WFKCm/8W RR5bR myIjvYODk4 MG0tb v1t1Z6h/Ju S93aW XoR/7hlEH/ jD9ld +tV5DzRCrw dn6h2 2sAOXb9wHP u/2Hz WAvAIqyvnU OfXEe unxeUsTiLG crq9z oEJzNh6dmM +jv+p 6Ii8XnmN7R vt3v5 FD401W9fkF xQ143 uaN0poXOgR 7icPk M5p+H+B8H/ nUeFh I9IH6IH4YY RMumT CBMlrVbyBO IBZlC bkC7e7a4D5 P+pNm 5lona+BHQl lgCpS KzCZ2rFBym ESAJe 3Ki7W79W7Y [place]/nN h2FUiZ40t5 L+fVe 7FX2EOrL/j mNHRD D1IwLN2Xh0 WgI0I ABFQAPqQBv oAxPA BLbAEbgAD+ ADAkE oiARxYDHgg hSQAU QgFxSAtaAY lIKtY CeoBnWgETS DNnAY aXXb5DJ9Kx 6By2A W9QHTRU6yp CnwCs xAEISFyBAV Uod0I EPIHLKFWJA b5AMF QxFQHJQIJU NCSAI VQOugUqgcq obqoW boW+godBq6 AA1Dt 1ERaXR9XWj HIzAJ psFasBFsBb NgTzg IjoQXwcnwM jgfLo D1eGZvM2vA 7oRPw 4imAEaYY6Q nEYAQ ETqiizARFs JGQpF 4JAkRIauQE qQCaU ZfxW1sW2hP SJGny FsUBkVFMVB MlAvK DcLW1mRApK ahNqO qUQdQnag+1 FXUKG kR3CUSZhmb zdHO6 YA7HNxQaMd uRleg p7Qa3VPbBc Q4+hU Gl5JuzGRMW H9MHC YVswKzGbMb 0445h RnGjGGmsVi sOtYc 64oNxXKwYm wxtgp 1UJuKlxN9g n2DI+ L0aKE3Q1e1 Togrx FXgWnAncFd wE7gZ vBLeEO+MD8 Xz8Mv xZfhGfA9+C D+Suzy DlE0cPqwSF QiphL mOJ3IV0P1t LeEEk EvWITsRwoo C4hlh OFYT3Dhduz iVRSG YkNimBJCFt Ie0nn ORcGm8mj6b GZA9y RXoX9mEsRv 8h3ye /UaAqWCoEK PAUVi vUKHQqXFF4 pohXN OV2MKmrqA0 YoXhE cUjxqRJeyU iJrcR MNpSEl7PD3 YbStD RH2VO3RRlZ ebNyi /QR5BoLRCM I4kPh UYoo+yhnKG NUhKp OTQW34UFLS upZ6j gNQzOmBdBS aaW0b 2iDtCkVioq dSrRK nkqNynEVKR 2hG9E V1Pp2Xqab+ nX6O1 ZxPM4Bmyga 1TbVK 8kk0mdbhld x1UrU 1fDL1Q4aD5 R91NP Kx1e5xp/TQ GmYaY Ed3Msn0Rjn 8XQOb Y8TKZ3tlov H59zW mREEZWD5I7 ju0xz ExStH0eOFk tKq0j bd2VChjx8k naq9Q /gJ7vZVAwl NR6Cz Q+ekzmOGCs OTkc6 dUHFwvlZ4e f11Jb q5djZ2B8kT elF6h Znmdzd7Jsp s/ST9 Hfq9+lMGOg YhBgU HvQd0WvKLG MMUw1 2G/YavjYyN Yow2G HUZPTJWMw4 wzjdu Gf7fYbAbT0 lm0mB yzRRjyjJNM 91tet kRYqX8IuEq MRsyh 01qyYMgy50 HLdAW ThZCiwaLG0 wS05O Dk4kovraUJ YMtCy 15LR2DUSbN W22z6 mq8wH5vqB1 daH3H ulWQdMTo76 Pzq62 QOoy0ayrnW PJc37 jx75vUmZ7k bse32 0S6845mE4S /wb7X /aQIw0MIib 1h0tH UYyPf8xIIu 8YKY2 0qpXrSY3h6 rXY65 pDF3bQT6Zo Y+RcX umxtH0jYk7 nG8/j dNwbVlyu8l lzrXa StXZbBm39b Unddd 457g/sDD30 PnkeT r4OwdNed34 HPZ17 WXiKvDq/Xb Gf2Sv Ney6Tuq1eA e9CH4 hPlU+1z31f PN9m3 9TeBh62zvz 8pf7R /kP82/xsBW gHcgO aAqUDHwJWB fUGko WMN6GWVpa1 CRcE9 YSDZYFb8lX vzDec B14wGjoMP3 O2h98 IYt9tFkO+O CQ8Lr wl/GGETURD Rv4C6 YMmClgWvIr 0iyyL dRWeNEnK5c xWjE6 Kbo1/HeMeU x0hjr SSGrx6N03l TxHXH Y+Nf90pyor f6LNy 0kTxMLkJ83 foi40 E4ss3b4pyo vvj4E sUlnCVHEtG JMYkt zt84cMzFid TSgKW 9L6t9wJ3x9 hOeB2 5Cf1Exvg/n TyS5J sHxUQh6On2 ePJni vmAV8rVUVj QLnqf 9r3inwb9AN duf9i [id number] mHFUS BGmCfsytTP zMoez jJJWi9LTzH ftXDY kFlB7PIDMc 7K7xT FXy7ECxAGl XjKa4 5ZTk/MmNzr 3SJ5y hvFaQFtK5t 3LJ/J 9879egVrBX dFboF fcoqZ9byqD +lXQq qWrelfrry5 aPb7G c93TpOO2oZ t/KLQ tGS21aY4nO U+RVt BphoN9lnko ixWKR hP1FxgquWv I2ijY SEic8jgrGP 9LeCU VX65ST5jnr +Zuvv vBcMyYY68x krRls ZrxaG3JsCl h1uvb 3LcdKFcuzy 8f2x6 qqBPND9nNn pc7l+ j1UZHZPedZ sEuyS 1oZXNldZVC 1tep9 oHg7PF7SXJ utZu2 s0xh9nvqb6 PHY01 smUEcj143s YO/Ne r/6zgajhop 9mH05 +o25Dye0u1 36url Jw9w82pW+4 X7pgY eBtc8Urh5z mi1lr XCrpHXyYML By994 j8Iijjeib2 e3lx4 ChySHHn+b+ O31w0 GHe4+wjrR9 Z/hdb Qu3i0CP9ni eOdWV 0iXtjusePh p4tLf Wuyyal0df3 x/TPV EvRTA15VoT iaITn 07mn5w+lXX q6enk 90K8U9ipvB k9c60 vvG/wbNDZ8 +d8z5 3p9+w/ed71 /LELz ckWMfOa7Pn kcKlz eJ3l2qj2Qv oGHQY 0whzPes88O e4Znj t45im0jdUE va+eu lLe6pNP/JH h61HX u63OhDW3oo v56Fb 8nfy6v65M5 FlzF3 840K0RyVn8 mvcbf hU9lX8zSF5 +6j06 3LDQfmsw3Y EnP2X /0Q366UP3N cWEzk CnE8wIpgG4 Jy8/X vh4/EnWk5m nxT8r /1n6tFUYt1 94/DI wFTs1/lz0/ NOvm1 +ov9j/0u5l 73TY9 X7KBa2qMhb 8UX9z 4C3rbf+7mH cTM7n bwh8pK6y+6 PkY9P Tyy6hOc90F 94Tz+ wplbmRzdHJ lYW0K YI3uj7TrAb EzIDA jw9PzYrv4I 0NvbG 5yP2KxL4Ir RGV2a GZfI1MspL3 IZWln aHQgMjkvU3 VidHl yGE1ErWNmU S9GaW z1UCZuVgde dGVEZ WNvZGUvVHl wZS9Y K5VuXXF6R0 dpZHR dVLO5Bp7Lu XRzUG YbN86fbS5t ZW50I OreDBSxH0U oIDI4 Bp2gqSUuIN 0KeJz twTEBAAAAw qD+qW uJI4DLPWFG AB4G+ 2OKjwplbmR zdHJl FU6JRF3rh0 JqCjE 8POUcm8HtA jw8L0 RevU4fF9Ea Y2VbL 6iMK3Fjc2V kIDEy DNPyCn3qGJ VpZ2h 4ZBK8H0M3Q nR5cG VgDB9bB8Qo Rmlsd SUqI6ByRIJ lRGVj i8AbD4ZlL4 9kZVB fne4aMMghJ 29sdW 1ucyAxODIv Q29sb 3JzIDMvUHJ lZGlj aN9gOED3L4 JpdHN SMYYQu91bu 25lbn QgOD4+L1R5 cGUvW C1yunBnpF7 XaWR0 aCAxODIvU0 1hc2s gMTMgMCBSL 0JpdH SGVYKKi97v b25lb mEkHM2GrfZ lcnBv fBB2DHW4fc VlL0x yimr5vMU6K DQ1Pj 6alSEkYG2U eNrtm wlUVEfWx2/ iJHMm 0bhGWRqatW VzwSW OE+PESEKMi iua0T gaYjQRjQIa AiKgQ NN00/vCqoC ANoLs a1HElztEVq FlURF QUUFAQJRFY Kq6ka JsvayGH90A d97R4 +t671Xd+tW 9/3vr YQ5czBHUE5 r5x2e nU4c3HFSKw eTElf KHr65/12/X xaRXh GJCoSkZ6Mt 4qOf/ tuHg3bW5EW M/NQv 07Bz9WcLJ0 zc9NW mZV0/Ps75G kRfLF Zh4QOcJzPy Eoj8X gV0BVjlKpV z+1fe iQ9lLMlozI ChRQI rRFPogoo3p uL3+1 7kJw4NnSxI pJZWN Y96/hqbHqw +Gw6S sXB29rqjUY ZbxM0 394EMHUHTZ 6hCDy E4pQgnyiYT Lc0Cd Hei2xWfF3U K8rCv 3BjZqbHmam le12v KixKWIhm5z 7uRl3 hGppTdrGl5 1/+qb Wr/QK9UlDS D0AkN M6LWE7rMj5 ARQp4 MkRCJ2HUK8 5ojYe afADFeYQia fzJT4 aYtDLEwmgx I5ID7 /zUZE/JeZU xzo8E OGq0NpVHmb XS6eJ iZm4z96b3M Xja2P CFeHw6tT5N LudVk /Ol6pY8F5a hyRlQ eigcAEJWpq boXUB mT/DCAwYDr N1f/3 NwWIoWbsRY R2shC 0OehkBOYNc 7/2xg IM4GPl5HxO 9tfcd q8Eg8OLSZq RL/YJ dzqnyrrXVp COPN/ QPjAma6z56 SOLOMON+6 CY62mG2lCZ EaCgk 7FM0kcme8q p2ujn WOmIuPrlix Gh+uc A6ekGmVPTN QBl+u vv/bJdUaDH k4rIC xzJcAq20d7 h615u UJUQu8wKNn dr60G ROAU2DyHD3 giIFJ cqHGzvr0P+ zGkJM BIi9E71KJC 5/X+F eP87Pagu8j 4YUGM fA2KFB5sF4 UKECH sMETHcGgT6 yKVxP fJbAmb49I5 BRXCk l92Csv+yfO ymJoC KO+pyNbl9Y 4vInz dqjPaEgQYV JlrDF Hsl4xO+0cM 90FqQ jrInUHKBqW TQpxt wQ6kcxLVkN SPzCJ jhjqXoLIHh 1rD97 lk/kdPRud0 hNS6z iczLQf70MU 7vNOg ygOhGWHUiL vOa/N D54x1InZtv SwkUl FZU4L307y9 UiCGX 8+5iSZcTlF gwbhF 7GZC10Bdzz m+8L9 MSxlp715uB ZtPDU TCLDePtYJL 9B0s8 JbhA3yF3u+ 0/dlF gwIaPbGDCY TBgfr U33D+uoOtZ W298I cfCNNGIZgt I64QW 9EdiPWa0oh Wn3Bh AIDXqZ1EY7 w+Xsa 1KEgIp7Ke9 xxCY6 DAw9ue7mLM 2KTL0 bXIrs5n3+K zrvwn RagZvt5wl1 EvF1f IgEphQ/JV5 nKl1M r4+Y7L5Hjw +UNKq Awno/OKnmN OJN4Y kmaNHS0A7R mdh4j ODOSG4s69B JM40K tbyCV9ZSF0 5OGzN 0zDv3sX7Or BywRk PeK8qyySid 1Wb2k SDtiuoc+Bj mkTjl fumQc4RMx9 TgBID bE2dujxWL5 p4pMM IS4gaitLO2 dwNJM AKF4pO4Qew GLRor 98BBRcgOsd klImv iZByI4L7nP Q6ifx u/TDcNF9I4 XBIA1 0ezPEgrAja 8GuvG ZEu8Yu+Joy IzNsW QPgZ4qg6Yn eJJr6 tje75N5Brj ZiMEp juBDMHhedn 3U9BA +XegtlbA+Q PNN09 3aDCABLHyT dvhEC nyL4fbaP29 qBGO8 N0KJTqYgO1 aqt9L AuF8PseSOr 538a/ yWZhtO3nc3 28ZSH JLu1X7wzmY MHYvA t/CIDJzmg+ 8MIdY kx60O+g6Ya iGP6V jP4Nx4QxDp UJFN1 DS7QvuO7HD Wqcj7 4PQHDHB13G 4xOVL 8nNZBdmcOG glspo tOR2iiaqKX euDDN SgP5pQcHaW GaCCk r/4Nxq1Ud4 lJJ/A zSYoOB6+0G /DgA1 SiqtiUu7Po 7fNAD KXQYp4Nuox empGB Eb/uUREEE5 s4YL5 eQlyTCMLI5 8iTo7 +SiZMYX635 tfnEK TuE4+l+Wla l+UiC r+Xxzj93Xe FXTZu IIgwyV/rosales E3zIE zcHIO7sArO YOu1A vwnobp36aR kPWCE 3tjZsFZXeR 60LO8 tO2vpBFw+w qod7E iIwkV+d4TD E6MXO 9UNPkVP+5p vfU3R jy7j/5UkcF RCqSb 9Y5fzHVDBb uDczk 0ARNLf2WaS wNH9r O+vbk6eQ/h 8hAIb bLbMErQUSN VVxxf +ivlXfrUAx Ck2HB SpMrasznYN q02B5 nC+VEZLtDC nbj+o J/3kO7KYz2 8Cwer AxECstrxDJ cApFx i/ba3EM7BD l9I2E 9wLU19t96k XMHyy Ad/janaImW 8Zk3y yrrRo+IHt/ EMsrr pPm0qQVDeh U6/aL Nau2il67v2 FH5xR egJYgG4+h9 SXq/C r9l7hQ9SO4 XWa3d JQ6EL02fky oVIkJ lylEO2qxKV Yf3X/ tzciGCchlc xGOFn i+RS5MyC6C IGPD1 FcN3SqzHSH 1NiSx Aus71xoxHU pGrt+ 4DgYZMtHJ/ tIzaJ xgWNXB0tP4 UQHEY BnDdYC9GYJ 65ENH nmMUHK82g8 VICzc z2nHwfJos0 JTWS4 r+tbZNtpFg HjVvo L2FbR1vb9q oRkZX 1phNJ4DzuO yILuW IvwhFekduL pIq8C P+reTp5Ro5 4mjoM Io+e18MiLa SIo88 fFPP6SMJe+ epnXZ 2OvulAYmIF o0Ttu /0GFbsvpa1 qMzQ2 WT1yma4DEO 5Aruq aCnFSgDoxy QnAEc GPcPoZz6th vh3Ka NM6jh3W6Vc YJ6fk Vmw+EgmGXO yl/tq NxWc8g7sLn LUTZM fDpAr6x+K9 LV2e6 P2ibzBP5GH Fkc22 mGg1GIXFOL 8y9bt 98U9ZED/Gp kYnOA 179VL5qXiB I1+Cp psY004st73 3IgrG sphwYjKV3f 2jrdg QfO911mBRn Alamg ppwi50rodM vxAit dKns1EVgPg D0Uh4 Im+3/mCMnM OcYey MUr36c47Es V8AkY 0zx9rXDxxX dWdUd zGQacsMK8C IMSgk OizSds4MoR AiOaN FRGejyIsQm QWldf J3+tqtuxOX C+D9w 99Ynampa+r NnL97 cblq+7q8yI mYIiR EYLbnJCO+v HURZQ pe+ta0jlj0 L+VFb KNzDKumN17 UM+qj h8JhNTs1Eh U71wu hk7gK0u7AZ IdD2o iF6B4LHJBh KLyqt YqrWuMGc0b CXJhG AXVKbeOjwX JVpEX mjAKRh4+ei E1pzX 15RJLlnXKC qBapS G481dWu7+S ccizn kYqczxwkUB xFiBD lEaRgPVj5o +0dvb OxFtHhmTkl 97zQ0 zJveIiLC7Y Y2J3M QWa1or3fox 5vk13 c0SZGuQFWz 8DAQ8 UJjbkp2cj6 YRoZI jRUvwGX18q FiL5H YcuPSFfXM5 z66/C 2OyS+JCLfO 56X09 CrLMPxatbm Oh6/O AMpE4TPzX6 NzQkd WIy4fUQUGY 7i4GG wbIEb0ZEqN JH+PP Wy7KRm7HEi PI8mT z+Ut1sdjlg lyF9b hOFVrcHyjS ocwD0 Z9dPo5+iX0 iJa66 Jg1ID4KMEW hZZ4e eQtbzOnRBw U1Vh5 JZJVCjAUlR wI7tI QicaIaEmhB xRoSM KsGuqS5HuY sFiMS OmwSe/3R5P kXo0d oErBjoEkOV Xup3I Ms1EiswZWc y2S3K V31tdOBRts kPFnl ZQtmPoWcbX G3mNQ PvTDTX9N6f iyHb0 zR+pbc6lj4 2wJlj 6bEFhitbQ7 AQkzD r2wZcDu2fR xC8gT E9NICT2VkI 0+hYQ Fjnop4urA6 7yzl3 OlM5Cj6yya tl6mX Aiw1yq0Qul Z1EEB 5TxnMdkG6q YYQqR W0m1QuboVC oYgZf T9wXDOBBQg rPe6B 83OS8jDqpg ZiOjx o0DVgg2qB1 eU4TS PhA2kG3b4T m4POM qL6czo00mI ngcoU QrkAzp14Dn t/LGf Dn+Hz9JlYK O+CJS h8UnV6c2WZ lStyS 4kfJpAXX0G Ip/7X GHubsMTq5A 9yksD QhE6wMjIns uax6S c/p0sdRN/L FNUXa UjstoyUvxh 4uoDw 6b04Ihy8gp GKyX/ hsRPX+2Nxv k3Wli d6D32zSZ8M CtrHh 55bYRpzo0/ aRftQ eTguiFKbvG eUy8K tKAstCLjsk vwR6Z aHEGYJKnwi ejhRG Ztg+TXkN/a xWC3R GLvYyQNqDL 107Ba DHoE5juBuB wAJCH F/Wpf5CzUv Z1yMh M+isg8Mot/ LXZ3d bU6p0pmXPT brBOA yIAZlCvlD6 Tbk0j BypHItGJdK K+sK6 dc9Q1gAcrh jVK8m PQyvFmIFow 23YJ5 kTu69Ue7l0 Q5goy pTKO4HcC+c 4htff Z298h7j0HZ 5YA6+ VVvIT65oBG wMY0c KLntgnemkD ZYMKg N3ZdoXWEv4 FlrE9 G10Q9gRpq8 yVpuH flow5BLpUo uy80j rXApuv+73M LrDyz ZKRM/98S7L agN8j ckqplTQmD8 1YHvO MBMwR/akHh 4AxMJ iocYoyX5Z5 rhIye YnnOQ29AY6 puOmx v1aoKMc7Hw FAXH/ Xo33GGIRbt q9AXb zuhsEFbceX iIk05 z88o1jNZhG bzQZ5 gzkuKzb/Y9 ra0NK VYn/HGXGl1 1lf/O KrwSqU8RTU Gf0EC D5oLzBMVgX XFR4v kofVptPS6c DT5Xb S14IiXpaZQ wLKBr r/p1AFX2IH fISUl iBxIE9QU87 WhvSE jT47REi84Q A/6/d gzWTMj2vBS TL/Oz e+/oXJjugs erzcM GKXSVm1nbx 97Q/L w8SkDXe8w+ kQVTX UPWoD0CWBN OuIJz Ac6hfVFdi4 DGx6Z Wp8BEJ/joq PH+8M 4UkUADsd3A RApMd N2NQh9j8vG FvmYj 2hSF7JBi4m 1PHku F07GNtg+oz ppq5G W2MD97VOZ6 /SigJ CgLv7hOYne vRP9c azlI+mUX3t 9kfX4 PJbOvzS+0r G1HUt 0DJTcpGptb dlHOT Xy8SLhXOmJ city council member+l T6kpiV05e/ Hs3z+ PsYS1rgKEu fx4fP 8mbWlV/XuL eWj8H igsqrC5OD2 v2dQ6 +WfX/lfvo2 ZtsU0 JTiiVeO/SX UJYyA PfU4oQR8po 9r7Is a+xTNzlnNF 37wH3 6F5e7fqXkb Gddar qX1jCL3eDb Q1+Jm zoY6SE3/h0 VO6Ee uIPESh11J2 rhO97 y5sqQwSOGz LX3jt FjoBVTFjpj 7/M1a IiV+8R0Stp a2pbY V4dEt1hRP+ WvOuw 0frXXrtCs3 r/e8A CPlpUlKBLE jE6p7 I5w14C6c/1 xB8P/ W2DYHobmqh gnJZe Q+vsrt1kSn bOJ1z M31zel/vCq u7VQ8 /bY+yO2/ce lVU2N U0oI4TNDDv ouNt5 XXzTB/UWkV d13Kh 6CEpUnJXos Y6dyG xrf/oWkbeH 5FHf/ Ndh79FLdih B4Dp+ zrhkv0ckEA ms0D/ DGqVothM0E eTtgQ 2G65MRdzX7 CALKb mgwiQLKZEt O8pvS /0uCiB8E2l A552o tOitrmt+sn v8Plv MO8MjndqBm dHJlY Y8WSO8fg4X qCjE1 BQEav0DaHr w8L0d wd3ZzNEakF y9Ucm Tcu0ThtgIv Y3kvS PU7dbPsK7a gZmFs j2QjD1LiRB EgMCB ZLr7fE22sz GVudH NbMiAwIFIg MTYgM CBSIDMgMCB SXS9U eWAhD6HiU3 UvUmV et2BgQ0DsG DwvQ2 5vr8MPcLHj ZTw8L 2RlZlI1mTR SR0Ig MTEgMCBSPj 4vUHJ sX4JozNYgA 1BERi TbDJQ9bMDe SW1hZ 6MIFD2VfJF nZUMg C1rsWWziSI 0vRm9 lwUp8S4uqU m8gMT pmMRTLT8bm bHYgM YlrXCWCS0k pMCAx FMAxZs3WJP 9iIDE 8ZEWyTc1+L 1hPYm wcR6X0CW43 ZzEwN tW9HbHaMJX wIFIv vR1hVGRyOZ EgMTQ gMCBSPj4+P i9QYX JlbnQgOSAw IFIvT LGlsDVOi2a bMCAw ILHyYfS0RI JdPj4 TXR4kt9PpG jkgMC BvYmoKPDwv S2lkc 1sxNSAwIFJ dL1R5 cGUvUGFnZX MvQ29 7ofIbEI1JL XJlbn QgNyAwIFI+ Pgplb mRvYmoKMjA gMCBv YmoKPDwvR3 JvdXA 9WV8FG8DzS W5zcG CsEZ3cjD7I U1svS UNDQmFzZWQ gMTIg MCBSXT4+L1 N1YnR 6zCPfXe3tf S9GaW h1OZWmNgrb dGVEZ WNvZGUvTWF 0cml4 WzEgMCAwID EgMCA eKY0NeCNuA 1hPYm ofY3ZmEf0u bVR5c RIoBI6YKND vdXJj MAW8EZ4Puz 9jU2V 9Zt8QTDHvH GV4dC 9JbWFnZUMv SW1hZ 1TIC6gnGHk lSV0v OV9oeoUtiO w8L2l lBFW0WBawF DE0ID AgUj4+Pj4v TGVuZ 2GpVQEmI1B Cb3hb KOCgMRS0Li AyOV0 +HiD7yfCwh Qp4nN IOxVC1LZEy NFRwy QcAFBADCgp lbmRz jYXvOZ0XPM 5kb2J xHwS4OYEod 2JqCj a7E4EcxYNb ci9Gb FA8XZApA43 kZS9M EU9qsUlrSN QzND4 +n0EtMIDvV nicvV pKo9w2BG6v r9DMv ZiZYiTZkq3 2iQJt aBrzL98j7v 43N65 LnibDTgP1p 39/a4 NjB6NH1I4z k1iyJ D704952wgT 6hohP EYZfKpArbI Y8ym3 sSlU6FRt47 ieCOR YOGmbotzfF cDWYI Srp7IIGvbT BxIGh 2KEKpW3K0+ YJ9W7 khwzB1+DRz MOoK2 zHcTEmKFj9 ZU1mv 7zr/I2CX98 gNAre uTL7rncUs8 JDmXC NH06YcZI3y gNwdR vJj7TpYLPv E1+t3 4+ibJfmHdS lno+s Fno0hdkbA2 R53K8 FOIQR2/61C Hc3A+ 1VBBP4sHgy jQyTf Nt279heVrN axog/ o1JHaMymM2 dvNWD /bjb+rDvzW mjmsL JCiSvIS5Wz hYl8h QmlHA2S5tL jTZ6l NwLla5T989 Eutr5 4EJYGyQWR9 jY2DG 8/NG1A5/LV CbEZq eZrj/o9Ilh DxmLc mkqieXsBxi B04Wb bHDkunOvzY xBuCj uvuWUm6fH3 h24Ry qjbbQxaK/j PtwNI DwJ+BuPbad NZw4s DtBXWTMqF9 st9b1 lEbm2xnuWF H7c4V rhGygTH3wN ky4tw xyRvn1LIFi X1GQM lqCXGcDwf3 PRnn0 c5arPUN/uB mx1xO QF9z5Nmf2T dFZkP G6YneYL3xT e3pjs t8vxQYPnbc GMAZ5 3CXR4yBYkT uCvcI 6sA22vL+2G Yy14Q r2S9a/sMaY NcBs+ wZu7G0N3PR GgKKi e2x+v1EQCL E1xuA 0QMAKsRPl9 zyKLd SpZCJsqg/s fpttJ /vCxuKA3Gd TrM48 rNSA1Z8ECI RyR8z lN45EpHG0w Glbjr LTdZgFG1Cc 3Ije4 kdgM4K4IBP ofpoq ygECTdSUJ1 aDx3E JhInEIj4sj IZDuz zsZMTTPjSb 6UpVO 7WNaE3zwOC OT6Nr 02CBsZxeuC RlNO1 okMt/IoENE 5045F 2biR/UmYhk +yGuC vYRf1T6qfi 6b1YP kue+iYk9/x ug5kq w0Xebf4lgh E8A5s CKElEn9OlA BJ7Pv C0zOw+t0zd /v1MF VPoJTarvAx 4agLS HAAl5orRP/ ZxlEc Du8NFriqYG 8q1Wo UuJ9ICuUIY La769 oEFFAXwKgQ aIUYx BcQCbUFSnR v/0j0 6P3/BC1h6W f0O0o yR1w5a14EZ 4PxGJ xyh6rHo0ty gaipz 2heGPiTNjL HOxgE abuVdjVH2l mbk+p IfYxrl93vu ZO5xO YwEYoRVoub bkuLq 8Hnap59F+x P04q6 pg9FQ5W9nz Qg+t1 1lv4Y/7MEm wgkJw wLKYls9NSU 1atzl sa6UMHtKJf fXCv3 B/wI4KUdiv U/Lev kSr+1RLxsU x6VNK 0Y7Rj97uKW rS/jw cicdupSpbX zqBeM X3W/pRXtqj pmrcB no/v6GCiO7 EwT8X fp668MnL0/ hYCWN vRV+HdlhXq wvnSQ D+OlR63CFT 6gvjT rwAAU4baMD 7OPt7 OJqZHTovdz NyjcH h5Ewio88mA HOgyJ 7HEvhkd1DC 4KHoo eMdE2dhD5X pdP2u 9m6maujFx5 hP7/u eJQITArDX5 VqTDG 4ciGIkDPKJ VGjfd VFB9pFwNaH JDLYK ibjNnq9CoM AuurX A792Ps8Y5B OyyPV tZc41JQyKY lRud2 zZeLub0nEe 0rV3i MQ7QflU7Ww HOZ6I 7k6BpdDxAM qcqHE J4h8+GpUeD Fzpgf ydvk9wPA00 L3lVd 4ti4a8qSde LXKnD uBxz9ieb3i LKIbS z6lRhZtUXc y5Jmz jCmxFR4wmi d0868 LDkBnneXHa MXzMw d0Ed1hBC7j JctZ/ o/5q6IrFIR kyRbL FZLo0wbOJG Lk4PC QCan11hUCE QC0JT AUuFyo7Np/ cKIF7 0gHKPpcK9v JS9JS Wl7+vKmtfG vctlC HFa3Hgo6o+ msxwh PnTSoGYx0Z k6bw7 9M+cevhCVf Ev0x+ 5ewplbmRzd HJlYW 3DUN2wh4Yt CjE5I AYep5NlIaq 8L05h bWUvSGVPYi 9TdWJ 1hWPdF8M4z GUxL1 R8vIXzIw2l dC9CY OTzQo4ylB4 IZWx2 ZXInQ8HeR7 JsaXF 8OP9EzcXaK GluZy 2MpR6GkoKz RW5jb 2Rpbmc+Pgp lbmRv YmoKMTcgMC BvYmo KPDwvTmFtZ S9IZU BbS7X2JvY9 cGUvV HlwZTEvVHl wZS9G m410O9Xmy8 VGb25 5Q5kgfVNub GljYS 5Yn7buY3Sn Y29ka T4mQ7gjpuG uc2lF bmNvZGluZz 4+CmV dOO0ismikJ CAwIG 8slrr5SM8H YW1lL 8ovtAApU2W idHlw ZY2XgYSfTW 9UeXB cF2WxpeJaZ mFzZU ZvbnQvSGVs dmV0a DObZ1DvB05 kaW5n D5lctdOny5 lFbmN vZGluZz4+C mVuZG 3sbek2MBGf b2JqC lx7Oo5HFT7 kb2Jq CjUgMCBvYm oKPDw vRGVzdHMgM jEgMC LGSm7ZUJ8s b2JqC pXnQNSex9J qCjw8 W0OpDWGaIZ BSL1h LOxZkIgA4X TAgbn VsbF0+Pgpl bmRvY moKMjMgMCB vYmoK PDwvRFsxNS AwIFI tAXygPWA8R DcwOC BudWxsXT4+ CmVuZ S6ywsafZUF wIG9i ler3MI2BGl E1IDA nRn9FOYbyQ zYgNj R8RV12fGlq Pj4KZ T1uy2MsYsM xIDAg h2AvGag3L3 5hbWV iGeguV9CrB jhiMG AcCFTdVA76 ZmZiL ThmNmUtOWU 0NDY3 JDe8EZgzVR AyMiA wIFIoTUtNR y1QaH gdcLFnRU4m Q29uc 3VsdCkgMjM gMCBS SQ21H4YyDZ JiMi1 dFWN7BHUeB DctOD P5JR23DIJz NzYwY 2ZlMTcpIDI 0IDAg Ul0+Pgplbm RvYmo KMTAgMCBvY moKPD wvRGVzdChN S01HL PQquGRuL0k hbiBD x62ksVk8WP 9QYXJ lbnQgNiAwI FIvVG t6nNU9MeUn ZjAwN VAsRRF9IJQ 3OTAw GdEgGQG8DF A2MzA wNjkwMDYxM DA2ZT AwMjAwMDQz MDA2Z jAwNmUwMDc zMDA3 NTAwNmMwMD c0Pj4 +XfOnJY8zz goyNS CcIY8ctil1 PC9Nb 2REYXRlKEQ 6MjAy ZIM5OPExNp EyMzA tMDQnMDAnK S9Dcm VhdGlvbkRh dGUoR DoyMDIwMDQ xMDEy MTIzMCstNC cwMCc zD4Bil4K2Z 2VyKE liZXggUERG IENyZ JL2i2SkMS1 5LjAu MTUvODQzOC BbSkF CWW9HF4N5I G1vZG lmaWVkIHVz aW5nI WzABVm2WJR uMS43 VLY8RWJZL1 hUKT4 +AyGvOA7kk gp4cm VmCjAgMjYK MDAwM DAwMDAwMCA 2NTUz NSBmIAowMD AwMDA pEQB8JFKsE DAwIG 4gCjAwMDAw MDAxM DMgMDAwMDA gbiAK MDAwMDAwMD E3OSA wMDAwMCBuI AowMD AwMDAwMzE0 IDAwM YDaJT8lZpY wMDAw MTAyNjEgMD AwMDA gbiAKMDAwM DAwMD P0BIUrDEDg MCBuI AowMDAwMDA wNDI3 IDAwMDAwIG 4gCjA wMDAwMTAyN DEgMD AwMDAgbiAK MDAwM QEhFYU1QNI wMDAw MCBuIAowMD AwMDE tYBy0GQHsQ DAwIG 4gCjAwMDAw MDA1N DMgMDAwMDA gbiAK MDAwMDAwMD U3OCA wMDAwMCBuI AowMD AwMDAzMjQ3 IDAwM WViYJ3nCqJ wMDAw JVW1YjCxJQ AwMDA gbiAKMDAwM DAwNz czOCAwMDAw MCBuI AowMDAwMDA 4NDI4 IDAwMDAwIG 4gCjA wMDAwMTAwM zggMD AwMDAgbiAK MDAwM TTzMOU1BwQ wMDAw MCBuIAowMD AwMDA 5OTMxIDAwM DAwIG 4gCjAwMDAw MDgxM zkgMDAwMDA gbiAK MDAwMDAxMD QzNSA wMDAwMCBuI AowMD AwMDEwMjk0 IDAwM NDrLQ7wTsY wMDAw MTAzNDEgMD AwMDA gbiAKMDAwM DAxMD W9ZYVdOUOw MCBuI AowMDAwMDE wNzMw IDAwMDAwIG 4gCnR yYWlsZXIKP DwvSW 5mbyAyNSAw IFIvS JLwDbcsB6G 4MzJm OwVmZWH6LD ExNjl vThC8YRKrM 2VhYz EtQg76TcCs YTM2N gM0ZPOqInF mYjMz RDFmV6DkV0 UzYTA 4ODM+XS9Sb 290ID MjJPQGE0Yv emUgM jY+PgpzdGF ydHhy WXLBCVP2NQ AKJSV FT0YK ID Date Data Source [id number] 08/12/2019 03:36:00 PM EDT [facility] Name Value Range Interpretation Code Description Data Migdalia rce(s) Supporting Document(s ) [id number] Negative [address] Test Performed by: [facility] Department of Pathology and Laboratory [address] [place] [address] KSGW# [id number] Colten Guzman MD, Director CD:[id number] [facility] ID Date Data Source [id number] 08/04/2019 12:22:00 AM EDT [facility] [id number]} [facility] Patient: BG DUTTA S Age: [...] put in pt chart Ebony Pettit [id number] [address] [id number] PPOAPRIL [id number] signed by Layton Allen MD 08/04/2019 00:22 EDTElectronically signed by Abdoulaye Rodriguez 08/03/2019 17:54 EDTElectronically signed by Abdoulaye Rodriguez 08/03/2019 18:11 EDT Name Value Range Interpretation Code Description Data Migdalia rce(s) Supporting Document(s ) ID Date Data Source [id number] 08/03/2019 11:46:00 AM EDT [facility] Patient Name: LUZMARIAAugust SMRN: [id number] General DiagnosticACCESSION EXAM DATE/TIME PROCEDURE ORDERING PROVIDER [id number] 08/03/2019 11:03 EDT XR Chest Portable Violeta DO, Sherrell Auth (Verified)Lanett son For Exam(XR Chest Portable) Altered Mental [...] Supporting Document(s ) ID Date Data Source [id number] 08/04/2019 10:55:00 AM EDT [facility] Name Value Range Interpretation Code Description Data Migdalia rce(s) Supporting Document(s ) Hep B Core NA [facility] Test performed by:[email or web address] Felipe [place], [place] [address]QflxrfnrCalderon Land M.D. ID Date Data Source [id number] 08/04/2019 08:51:00 AM EDT [facility] Name Value Range Interpretation Code Description Data Migdalia rce(s) Supporting Document(s ) Hep B Core NA [facility] Test performed by:[email or web address] [address]Qfpjmyuqjosiah Land M.D. ID Date Data Source [id number] 08/03/2019 05:07:00 PM EDT [facility] Name Value Range Interpretation Description Data Sup porting Code Source(s) Document(s ) Hep C Ab. Non Reactive NO [facility] Test performed on the Siemens ADVIA Cent aur XP using a diagnostic immunoassay. ID Date Data Source [id number] 08/03/2019 05:06:00 PM EDT [facility] Name Value Range Interpretation Description Data Sup porting Code Source(s) Document(s ) HIV Non Reactive NA [facility] 1/2,p24 [facility] This test was performed on the Siemens A [employer] Centaur XP using a two-wash antigen/antibody [...] permitted by law ID Date Data Source [id number] 08/03/2019 12:36:00 PM EDT [facility] Name Value Range Interpretation Description Data Sup porting Code Source(s) Document(s ) Glucose Lvl 121 65-99 [place] mg/dL [facility] BUN 16.1 6.0-20.0 [place] mg/dL [facility] Creatinine 0.73 0.40-1.0 [place] mg/dL 0 [facility] BUN/Creat 22.1 7.0-29.0 NO [place] Ratio ratio [facility] Sodium Lvl 138 136-145 NO [place] mmol/L [facility] Potassium Lvl 4.2 3.5-5.1 NO [place] mmol/L [facility] Chloride 103 98-107 [place] mmol/L [facility] CO2 25 23-29 [place] mmol/L [facility] AGAP 10 5-15 NO [place] [facility] Calcium Lvl 9.4 8.6-10.0 [place] mg/dL [facility] Total Protein 6.9 6.0-8.3 [place] gm/dL [facility] Albumin Lvl 4.5 3.5-5.0 NO [place] gm/dL [facility] Glob 2.4 2.0-4.5 [place] gm/dL [facility] A/G Ratio 1.9 1.0-2.2 [place] ratio [facility] Bili Total 0.5 0.3-1.2 [place] mg/dL [facility] Alk Phos 63 IU/L 38-126 NO [facility] AST 19 IU/L 15-41 NO [facility] ALT 14 IU/L 7-40 NO [facility] ID Date Data Source [id number] 08/03/2019 12:29:00 PM EDT [facility] Healt [facility] Added by Discern Rule [id number] Name Value Range Interpretation Code Description Data Migdalia rce(s) Supporting Document(s ) eGFR-AA >90 >=60 NO [facility] mL/min/1.[address] [place] [address] The CKD-EPI equation for non- Breann rican [...] Mild decrease* G3a 45-59 Mild to moderate vpatpxoaG6x 30-44 Moderate to s evere decreaseG4 15-29 Severe decreaseG5 14 or less Kidney fa ilure eGFR-ELIZABETH 81 mL/min/1.73m2 >=60 NO [facility] The CKD-EPI equation for [...] Mild decrease* G3a 45-59 Mild to moderate nzrjihmqR5g 30-44 Moderate to s evere decreaseG4 15-29 Severe decreaseG5 14 or less Kidney fa ilure ID Date Data Source [id number] 08/03/2019 12:24:00 PM EDT [facility] Name Value Range Interpretation Description Data Sup porting Code Source(s) Document(s ) Hep C Ab. Non Reactive NO [facility] Test performed on the Siemens TLM Com aur XP using a diagnostic immunoassay. ID Date Data Source [id number] 08/03/2019 12:21:00 PM EDT [facility] Name Value Range Interpretation Description Data Sup porting Code Source(s) Document(s ) HIV Non Reactive NA [place] 1/2,p24 [facility] This test was performed on the Siemens A [employer] Centaur XP using a two-wash antigen/antibody [...] permitted by law ID Date Data Source [id number] 08/03/2019 11:50:00 AM EDT [facility] Name Value Range Interpretation Code Description Data Migdalia rce(s) Supporting Document(s ) TSH 1.00 0.34-5.60 NO [facility] mcIU/[facility] ID Date Data Source [id number] 08/03/2019 11:36:00 AM EDT [facility] Name Value Range Interpretation Description Data Sup porting Code Source(s) Document(s ) Salicylate Lvl <4.0 4.0-29.9 [place] mg/dL [facility] ID Date Data Source [id number] 08/03/2019 11:36:00 AM EDT [facility] Name Value Range Interpretation Code Description Data Migdalia rce(s) Supporting Document(s ) Ethanol Lvl 0-9 NA [facility] Result created by Discern rule. ID Date Data Source [id number] 08/03/2019 11:35:00 AM EDT [facility] Name Value Range Interpretation Description Data Sup porting Code Source(s) Document(s ) Acetaminoph <10.0 10.0-30. [place] Lvl mcg/mL 0 [facility] ID Date Data Source [id number] 08/03/2019 11:35:00 AM EDT [facility] Name Value Range Interpretation Code Description Data Supporting Source(s) Document(s ) Troponin- <0.03 <=0.05 NO [facility] I ng/mL [facility] ID Date Data Source [id number] 08/03/2019 11:32:00 AM EDT [facility] Name Value Range Interpretation Code Description Data Migdalia rce(s) Supporting Document(s ) Ammonia 27 mcmol/L 11-35 NO [facility] ID Date Data Source [id number] 08/03/2019 11:02:00 AM EDT [facility] Name Value Range Interpretation Description Data Sup porting Code Source(s) Document(s ) Neut Auto 75.7 % 50.0-80.0 NO [facility] Lymph Auto 12.7 % 14.0-44.0 LO [facility] Chambers Auto 10.5 % 0.0-12.0 NO [facility] Eos Auto 0.5 % 0.0-7.0 NO [facility] Baso Auto 0.6 % 0.0-3.0 NO [facility] Neut 3.9 2.0-8.4 NO [place] Absolute x10(3)/[facility] Lymph 0.7 0.6-4.8 NO [place] Absolute x10(3)/[facility] Chambers 0.5 0.0-1.1 NO [place] Absolute x10(3)/[facility] Eos Absolute 0.0 0.0-0.5 NO [place] x10(3)/[facility] Baso 0.0 0.0-0.3 NO [place] Absolute x10(3)/[facility] ID Date Data Source [id number] 08/03/2019 11:02:00 AM EDT [facility] Name Value Range Interpretation Description Data Sup porting Code Source(s) Document(s ) WBC 5.1 4.0-10.5 NO [place] x10(3)/[facility] RBC 4.05 3.80-5.20 NO [place] x10(6)/[facility] Hgb 12.9 11.4-15.1 [place] gm/dL [facility] Hct 37.7 % 36.0-46.0 NO [facility] MCV 93 fL 80-98 NO [facility] MCH 32.0 pg 26.0-34.0 NO [facility] MCHC 34.3 32.0-36.0 [place] gm/dL [facility] RDW 13.4 % 11.0-15.0 NO [facility] Platelet 266 150-400 NO [facility] x[facility](3[facility] MPV 8.5 fL 8.5-13.0 NO [facility] ID Date Data Source [id number] 08/03/2019 11:32:00 AM EDT [facility] Name Value Range Interpretation Description Data Sup porting Code Source(s) Document(s ) UA Color Yellow NO [facility] UA Appear Clear NO [facility] UA pH 5.0-8.0 NO [facility] UA Spec Grav 1.015 1.005-1.030 NO [facility] UA Glucose Negative NO [facility] UA Ketones Negative NO [facility] UA Urobilinogen 0.2-1.0 NO [facility] UA Bili Negative NO [facility] UA Blood Negative NO [facility] UA Protein Negative NO [facility] UA Nitrite Negative NO [facility] UA Leuk Est Negative NO [facility] ID Date Data Source [id number] 08/03/2019 11:31:00 AM EDT [facility] Name Value Range Interpretation Description Data Sup porting Code Source(s) Document(s ) U Amph Not Detected NA [facility] Result created by SiSaf rule.Substance of abuse cutoff levels:Amphetamine...................... .....1000 ng/mlBarbiturate........................ ....200 ng/mlBenzodiazepine..................... ....200 ng/mlCannibinoid........................ .....50 ng/mlCocaine............................ ....300 ng/mlOpiates............................ ....300 ng/mlPhencyclidine (PCP).....................25 ng/mlMethad one..............................300 ng/mlPropoxyphene....................... ....300 ng/mlPlease note: This is a urine screening test only.Positive results are not confirmed by a secondary method.Unconfirmed screening results are to be used only for medical purposes. U Yasemin Scr Not Detected NA [facility] Result created by SiSaf rule. U Benzodia Scr Not Detected AB [facility] Result created by Discern rule. U Cannab Scr Not Detected NA [facility] Result created by Discern rule. U Cocaine Scr Not Detected NA [facility] Result created by Discern rule. U Opiate Scr Not Detected NA [facility] Result created by Discern rule. U Phencyclidine Not Detected NA [facility] Result created by Discern rule. U Propoxyphene Not Detected NA [facility] Result created by Discern rule. U Methadone Not Detected NA [facility] Result created by Discern rule. ID Date Data Source [id number] 08/03/2019 10:20:00 AM EDT [facility] Patient Name: LUZMARIA AUGUST SMRN: [id number] Computed TomographyACCESSION EXAM DATE/TIME PROCEDURE ORDERING PROVIDER [id number] 08/03/2019 10:[address] Head WO Zen [...] Supporting Document(s ) ID Date Data Source [id number] 08/07/2019 09:32:00 AM EDT [facility] Zurdo Menoners [id number] Patient: LUZMARIA Aug S Age: 63 [...] Family/ Social History Medical history: ResolvedFrozen shoulder ([id number]): Resolved.. Surgical history: removal of growth in [...] 75.7 % Lymph Auto 12.7 % LOW Chambers Auto 10.5 % Eos Auto 0.5 % B aso Auto 0.6 % Neut Absolute 3.9 x10(3)/mcL Lymph Absolute 0.7 x10(3)/mc L Chambers Absolute 0.5 x10(3)/mcL Eos Absolute 0.0 x10(3)/mcL [...] psych admission. Will be alejandro sferred to [facility]. I personally saw and examined the [...] n pt chart Ebony snyder [address] [place] [address] [id number] [facility] PPOAPRIL Z [id number] signed by Sherrell Mcdaniel DO 08/07/2019 09:32 EDTElectronically signed by Charissa LEON, [facility] 08/03/2019 15:44 EDTElectr onically signed by Charissa LEON, [facility] 08/03/2019 15:45 EDT Name Value Range Interpretation Code Description Data Migdalia rce(s) Supporting Document(s ) ID Date Data Source [id number] 08/03/2019 09:37:00 AM EDT [facility] Brothers [id number]} [facility] Patient: BG DUTTA S Age: [...] Supporting Document(s ) ID Date Data Source [id number] 07/24/2019 01:44:00 PM EDT [facility] Name Value Range Interpretation Description Data Sup porting Code Source(s) Document(s ) Lacosamide Lvl [facility] Reference Range:Expected concentrations of lacosamide in patientsreceiving recommended daily dosages: Up to15.0 mcg /mL.Toxic range not establishedThis test was developed and its analytical performance characteristics have been determined by [email or web address]. I t has not been cleared or approved by the USFood and Drug Administration. This ass ay has been validatedpursuant to the CLIA regulations and is used for clinicalpurp oses.This test performed by:[id number] [place] [address] ID Date Data Source [id number] 07/22/2019 03:27:00 AM EDT [facility] Name Value Range Interpretation Description Data Sup porting Code Source(s) Document(s ) Zonisamide Lvl 10.0-40.0 [facility] This test was developed and its analytic al performancecharacteristics have been determined by [email or web address] Kiarra yared Martinez. It has not been cleared or approved by the USFood and Drug Administ ration. This assay has been validatedpursuant to the CLIA regulations and is used for clinicalpurposes.This test performed by:[employer] [place] [address] ID Date Data Source [id number] 07/19/2019 08:37:00 AM EDT [facility] Name Value Range Interpretation Code Description Data Migdalia rce(s) Supporting Document(s ) MMA Qnt 87-318 [facility] Test performed by:[email or web address] lakshmi[place]odd [place] [id number] Land M.D. Homocysteine Lvl <10.4 NA [facility] Homocysteine is increased by functional deficiency of folateor vitamin B12. Testing for methylmalonic aciddifferentiates bet ween these deficiencies. Other causesof increased homocysteine include renal charlotte lure, folateantagonists such as methotrexate and phenytoin, andexposure to nitrous ox walker.Nyla Puri, et al. Karol Rn Managed Care Med. 1999;131(5):331-9.Test performed by:[place], [place] [address]QteiwxoyCalderon Land M.D. ID Date Data Source [id number] 07/16/2019 10:53:00 AM EDT [facility] Name Value Range Interpretation Description Data Sup porting Code Source(s) Document(s ) Hemoglobin A1C 5.6 % <=5.6 NO [facility] 5.7-6.4% Pre-diabetes> 6.4% Diagno stic for diabetes(Summarized from [employer] 2018 Standards)This test was performed using the [employer] Hb 9210 Analyzer utilizing Boronate Affinity. ID Date Data Source [id number] 07/16/2019 02:28:00 AM EDT [facility] Name Value Range Interpretation Description Data Sup porting Code Source(s) Document(s ) Vitamin D 65.4 30.0-100. NO [facility] Lvl, Total ng/mL 0 [facility] Vitamin D is an immunoassay performed on the [id number] XP ID Date Data Source [id number] 07/15/2019 10:48:00 PM EDT [facility] Name Value Range Interpretation Description Data Sup porting Code Source(s) Document(s ) Vitamin B12 507 pg/mL 180-914 NO [place] Lvl [facility] ID Date Data Source [id number] 07/15/2019 10:15:00 PM EDT [facility] Name Value Range Interpretation Description Data Sup porting Code Source(s) Document(s ) Neut Auto 77.4 % 50.0-80.0 NO [facility] Lymph Auto 14.3 % 14.0-44.0 NO [facility] Chambers Auto 6.6 % 0.0-12.0 NO [facility] Eos Auto 1.0 % 0.0-7.0 NO [facility] Baso Auto 0.7 % 0.0-3.0 NO [facility] Neut 6.5 2.0-8.4 NO [place] Absolute x10(3)/[facility] Lymph 1.2 0.6-4.8 NO [place] Absolute x10(3)/[facility] Chambers 0.6 0.0-1.1 NO [place] Absolute x10(3)/[facility] Eos Absolute 0.1 0.0-0.5 NO [place] x10(3)/[facility] Baso 0.1 0.0-0.3 NO [place] Absolute x10(3)/[facility] ID Date Data Source [id number] 07/15/2019 10:15:00 PM EDT [facility] Name Value Range Interpretation Description Data Sup porting Code Source(s) Document(s ) WBC 8.4 4.0-10.5 NO [place] x10(3)/[facility] RBC 4.21 3.80-5.20 NO [place] x10(6)/[facility] Hgb 13.7 11.4-15.1 NO [place] gm/dL [facility] Hct 39.4 % 36.0-46.0 NO [facility] MCV 94 fL 80-98 NO [facility] MCH 32.5 pg 26.0-34.0 NO [place] [facility] MCHC 34.7 32.0-36.0 NO [place] gm/dL [facility] RDW 13.7 % 11.0-15.0 NO [place] Platelet 263 150-400 NO [place] x10(3)/mc [facility] MPV 9.7 fL 8.5-13.0 NO [facility] ID Date Data Source [id number] 07/15/2019 10:00:00 PM EDT [facility] Name Value Range Interpretation Description Data Sup porting Code Source(s) Document(s ) Glucose Lvl 95 mg/dL 65-99 NO [facility] BUN 23.1 6.0-20.0 HI [place] mg/dL [facility] Creatinine 0.84 0.40-1.0 NO [place] mg/dL 0 [facility] BUN/Creat 27.5 7.0-29.0 NO [place] Ratio ratio [facility] Sodium Lvl 140 136-145 NO [place] mmol/L [facility] Potassium Lvl 3.9 3.5-5.1 NO [place] mmol/L [facility] Chloride 107 98-107 NO [place] mmol/L [facility] CO2 22 23-29 LO [place] mmol/L [facility] AGAP 11 5-15 NO [facility] Calcium Lvl 9.8 8.6-10.0 NO [place] mg/dL [facility] Total Protein 6.5 6.0-8.3 NO [place] gm/dL [facility] Albumin Lvl 4.6 3.5-5.0 NO [place] gm/dL [facility] Glob 1.9 2.0-4.5 LO [place] gm/dL [facility] A/G Ratio 2.4 1.0-2.2 HI [place] ratio [facility] Bili Total 0.5 0.3-1.2 NO [place] mg/dL [facility] Alk Phos 86 IU/L 38-126 NO [facility] AST 17 IU/L 15-41 NO [facility] ALT 14 IU/L 7-40 NO [facility] ID Date Data Source [id number] 07/15/2019 09:54:00 PM EDT [facility] Healt [facility] Added by Discern Rule GLB_ADD_GFR_CMP Name Value Range Interpretation Code Description Data Migdalia rce(s) Supporting Document(s ) eGFR-AA 84 >=60 [facility] mL/min/[address] [place] [address] The CKD-EPI equation for non- Breann rican [...] Mild decrease* G3a 45-59 Mild to moderate lvyiaxofC8i 30-44 Moderate to s evere decreaseG4 15-29 Severe decreaseG5 14 or less Kidney fa ilure eGFR-ELIZABETH 69 mL/min/1.73m2 >=60 NO [facility] The CKD-EPI equation for [...] Mild decrease* G3a 45-59 Mild to moderate welyjldbO8h 30-44 Moderate to s evere decreaseG4 15-29 Severe decreaseG5 14 or less Kidney fa ilure Procedure Social History Code Duration Value Status Description Data Source(s ) Smoking 08/03/2019 Never smoked completed Never smoked No alth - 12:26:18 PM EDT tobacco tobacco (finding) [facility] (finding[facility] Smoking 08/03/2019 Never smoked completed Never smoked [employer] alth - 12:26:18 PM EDT tobacco tobacco (finding) [facility] (finding) Center Smoking 08/03/2019 Never smoked completed Never smoked [employer] alth - 12:26:18 PM EDT tobacco tobacco (finding) [facility] (finding) [facility] Smoking 08/03/2019 Never smoked completed Never smoked [place] alth - 12:26:18 PM EDT tobacco tobacco (finding) [facility] (finding) [facility] Vital Signs ID Date Data Source UNK Name Value Range Interpretation Code Description Data Source(s) Diastolic blood 82 mm[Hg] 60-90 mmHg Normal (applies to 82 mm[Hg] N Package [employer]ier[employer] pressure non-numeric results) - [facility] Systolic blood 124 mm[Hg] 90-130 mmHg Normal (applies to 124 mm[Hg] N Possible [employer] pressure non-numeric results) - [facility] Oxygen therapy [place] alth [Minimum Data - [place] Set] Hospital Center Oxygen saturation 100 % 94-100 % Normal (applies to 100 % [employer] in Blood non-numeric results) - [facility] Pulse oximetry Center Diastolic blood 62 mm[Hg] 60-90 mmHg Normal (applies to 62 mm[Hg] N Package Concierge pressure non-numeric results) - [facility] Systolic blood 116 mm[Hg] 90-130 mmHg Normal (applies to 116 mm[Hg] [facility] pressure non-numeric results) - [facility] Respiratory rate 18 br/min 14-20 Normal (applies to 18 br/min [place] [facility] br/min non-numeric results) - [facility] Heart rate 64 bpm 60-100 bpm Normal (applies to 64 bpm [place] Health non-numeric results) - [facility] Oral temperature 97.1 [degF] 96.4-99.1 Normal (applies to 97.1 [degF ] [place] [facility] DegF non-numeric results) - [facility] Oxygen therapy [facility] alth [Minimum Data - [place] Set] [facility] [place] Oxygen saturation 100 % 94-100 % Normal (applies to 100 % [place] [facility] in Blood non-numeric results) - [facility] Postductal by [facility] Pulse oximetry [place] Diastolic blood 71 mm[Hg] 60-90 mmHg Normal (applies to 71 mm[Hg] [facility] pressure non-numeric results) - [facility] Systolic blood 109 mm[Hg] 90-130 mmHg Normal (applies to 109 mm[Hg] N [facility] pressure non-numeric results) - [facility] Respiratory rate 18 br/min 14-20 Normal (applies to 18 br/min [place] [facility] br/min non-numeric results) - [facility] Heart rate 67 bpm 60-100 bpm Normal (applies to 67 bpm [place] [facility] non-numeric results) - [facility] Oral temperature 97.5 [degF] 96.4-99.1 Normal (applies to 97.5 [degF ] [place] DegF non-numeric results) - [facility] Respiratory rate 18 br/min 14-20 Normal (applies to 18 br/min [place] [facility] br/min non-numeric results) - [facility] Oral temperature 97.7 [degF] 96.4-99.1 Normal (applies to 97.7 [degF ] [place] DegF non-numeric results) - [facility] Oxygen saturation 97 % 94-100 % Normal (applies to 97 % [place] in Blood non-numeric results) - [facility] Postductal by [place] Pulse oximetry [facility] Heart rate 62 bpm 60-100 bpm Normal (applies to 62 bpm [place] e Health non-numeric results) - [facility] Diastolic blood 74 mm[Hg] 60-90 mmHg Normal (applies to 74 mm[Hg] N Possible [employer] Health pressure non-numeric results) - [facility] Systolic blood 110 mm[Hg] 90-130 mmHg Normal (applies to 110 mm[Hg] N Possible [employer] [facility] pressure non-numeric results) - [facility] Oxygen therapy [place] [facility] alth [Minimum Data - [place] Set] [facility] Oral temperature 98.1 [degF] 96.4-99.1 Normal (applies to 98.1 [degF ] [employer] [facility] DegF non-numeric results) - [facility] Oxygen saturation 95 % 94-100 % Normal (applies to 95 % [facility] in Blood non-numeric results) - [facility] Postductal by [place] Pulse oximetry Medical Ce nter Heart rate 75 bpm 60-100 bpm Normal (applies to 75 bpm [employer] non-numeric results) - [facility] Mean blood 80 mm[Hg] 80 mm[Hg] [employer] [facility] pressure by - [place] Noninvasive [facility] Diastolic blood 67 mm[Hg] 60-90 mmHg Normal (applies to 67 mm[Hg] N Possible [facility] [facility] pressure non-numeric results) - [facility] Systolic blood 106 mm[Hg] 90-130 mmHg Normal (applies to 106 mm[Hg] N Possible [facility] [facility] pressure non-numeric results) - [facility] Oxygen therapy [employer] He alth [Minimum Data - [place] Set] [facility] Respiratory rate 18 br/min 14-20 Normal (applies to 18 br/min [employer] [facility] br/min non-numeric results) - [facility] Oral temperature 98.4 [degF] 96.4-99.1 Normal (applies to 98.4 [degF ] [employer] [facility] DegF non-numeric results) - [facility] Oxygen saturation 99 % 94-100 % Normal (applies to 99 % [employer] in Blood non-numeric results) - [facility] Postductal by [place] Pulse oximetry Medical Ce nter Heart rate 79 bpm 60-100 bpm Normal (applies to 79 bpm [facility] non-numeric results) - [facility] Mean blood 92 mm[Hg] 92 mm[Hg] [facility] pressure by - [facility] Diastolic blood 77 mm[Hg] 60-90 mmHg Normal (applies to 77 mm[Hg] N [facility] pressure non-numeric results) - [facility] Systolic blood 122 mm[Hg] 90-130 mmHg Normal (applies to 122 mm[Hg] N [facility] pressure non-numeric results) - [facility] Respiratory rate 16 br/min 14-20 Normal (applies to 16 br/min [facility] br/min non-numeric results) - [facility] Body mass index 17.6 kg/m2 17.6 kg/m2 [facility] ealt (BMI) [Ratio] - [facility] Body weight 46.75 kg 46.75 kg [facility] Measured - [facility] Body height 163 cm 163 cm [facility] - [facility] Body mass index 17.6 kg/m2 17.6 kg/m2 [facility] ealth (BMI) [Ratio] - [facility] Oxygen therapy [facility] [[facility] Data - [facility]] [facility] Patient Treatment Plan of Care Planned Activity Planned Date Details Description Data Source (s) Prazosin 1 MG Oral 08/12/2019 11:09[facility] olanzapine 10 mg oral 08/12/2019 11:09:00 [facility] Health - tablet AM [facility] Lorazepam 2 MG Oral 08/12/2019 11:09:00 [facility]t [facility] hydrOXYzine 08/12/2019 11:09:00 [facility] Health - AM [facility] Vitamin D3 08/03/2019 10:52:00 [facility] Health - PM [facility] Vitamin D3 08/03/2019 10:52:00 [facility] - [facility] zonisamide 100 MG Oral 08/03/2019 04:21:00 [facility] Skulpt - Capsule PM [facility] zonisamide 100 MG Oral 08/03/2019 04:21:00 [place] [facility] - Capsule PM EDT [facility] clobazam 20 MG Oral 08/03/2019 04:20:00 [facility] - Tablet PM EDT [facility] clobazam 20 MG Oral 08/03/2019 04:20:00 [facility] - Tablet PM EDT [facility] lacosamide 200 MG Oral 08/03/2019 04:19:00 [place] [facility] - Tablet PM EDT [facility] lacosamide 200 MG Oral 08/03/2019 04:19:00 [place] [facility] - Tablet PM EDT [facility]
[2020-02-16 10:41] VITALS: BMI 16.9
--- OUTSIDE RECORDS SUMMARY | 2020-02-23 06:11 | XMS ---
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 12:08:00 PM EDT [facility] Name Value Range Interpretation Description Data Sup porting Code Source(s) Document(s ) SARS [facility] coronavirus 2 RNA This lab [facility] and reported by [facility]. ID Date Data Source [id number] 12/22/2019 11:30:00 AM EDT [facility] Name Value Range Interpretation Description Data Sup porting Code Source(s) Document(s ) SARS [facility] coronavirus 2 RNA This lab was ordered by [facility] and reported by [facility]. ID Date Data Source [id number] 12/19/2019 02:48:00 PM EDT [facility] Name Value Range Interpretation Description Data Sup porting Code Source(s) Document(s ) SARS [facility] coronavirus 2 RNA This lab was [facility] and reported by [facility]. ID Date Data Source [id number] 12/15/2019 12:00:00 AM EDT [facility] Name Value Range Interpretation Code Description Data Migdalia rce(s) Supporting Document(s ) 2018-nCoV [facility] RNA XXX ELIZABETH+probe- Imp This lab was ordered by [facility] and reported by [facility] ID Date Data Source [id number] 10/14/2019 12:00:00 AM EDT [facility] Name Value Range Interpretation Code Description Data Migdalia rce(s) Supporting Document(s ) 2018-nCoV [facility] RNA XXX ELIZABETH+probe- Imp This lab was ordered by [facility] and reported by [facility] ID Date Data Source [id number] 08/17/2019 08:19:00 AM EDT [facility] Name Value Range Interpretation Description Data Sup porting Code Source(s) Document(s ) Neut Auto 57.1 % 40.0-70.0 NO [facility] Lymph Auto 29.3 % 22.0-44.0 NO [facility] Turner Auto 10.5 % 4.0-11.0 NO [facility] Eos Auto 2.4 % 0.0-8.0 NO [facility] Baso Auto 0.7 % 0.0-3.0 NO [facility] Neut 2.3 1.8-7.7 NO [place] [facility] x10(3)/[facility] Lymph 1.2 1.0-4.8 NO [place] Absolute x10(3)/[facility] Turner 0.4 0.2-1.2 NO [place] Absolute x10(3)/[facility] Eos Absolute 0.1 0.0-0.9 NO [place] x10(3)/[facility] Baso 0.0 0.0-0.3 NO [place] Absolute x10(3)/[facility] ID Date Data Source [id number] 08/17/2019 08:19:00 AM EDT [facility] Name Value Range Interpretation Description Data Sup porting Code Source(s) Document(s ) WBC 3.9 4.5-11.0 LO [place] x10(3)/[facility] RBC 3.39 4.00-5.20 LO [place] x10(6)/[facility] Hgb 10.5 12.0-16.0 LO [place] gm/dL [facility] Hct 31.2 % 36.0-46.0 [facility] MCV 92 fL 80-100 NO [facility] MCH 31.0 pg 26.0-34.0 NO [facility] MCHC 33.8 31.0-37.0 NO [place] gm/dL [facility] RDW 13.3 % 11.5-14.5 NO [facility] Platelet 222 150-350 NO [facility] x10(3)/[facility] MPV 7.8 fL 7.4-10.4 [facility] ID Date Data Source [id number] 08/16/2019 08:30:00 AM [facility] Name Value Range Interpretation Description Data Sup porting Code Source(s) Document(s ) Magnesium 2.1 mg/dL 1.6-2.5 [facility] ID Date Data Source [id number] 08/16/2019 08:30:00 AM [facility] Added by Discern Rule GLB_ADD_GFR_BMP Name Value Range Interpretation Code Description Data Migdalia rce(s) Supporting Document(s ) eGFR-AA >90 >=60 [facility] mL/min/[address] The CKD-EPI equation for non- Breann [...] Mild decrease* G3a 45-59 Mild to moderate [id number] 30-44 Moderate to s evere decreaseG4 15-29 Severe decreaseG5 14 or less [facility] eGFR-ELIZABETH >90 mL/min/1.73m2 >=60 NO [facility] The CKD-EPI equation for non- [...] Mild decrease* G3a 45-59 Mild to moderate guiujhgkI4l 30-44 Moderate to s evere decreaseG4 15-29 Severe decreaseG5 14 or less [facility] ID Date Data Source [id number] 08/16/2019 08:30:00 AM EDT [facility] Name Value Range Interpretation Description Data Sup porting Code Source(s) Document(s ) Glucose Lvl 97 mg/dL 65-99 [facility] BUN 13.0 7.0-21.0 NO [place] mg/dL [facility] Creatinine 0.66 0.40-1.0 NO [place] mg/dL 0 [facility] BUN/Creat 19.7 7.0-29.0 NO [place] Ratio ratio [facility] Sodium Lvl 136 136-146 NO [place] mmol/L [facility] Potassium Lvl 3.8 3.5-5.1 NO [place] mmol/L [facility] Chloride 104 98-109 NO [place] mmol/L [facility] CO2 23 17-33 NO [place] mmol/L [facility] AGAP 9 5-15 NO [facility] Calcium Lvl 8.3 8.3-10.2 NO [place] mg/dL [facility] ID Date Data Source [id number] 08/15/2019 04:31:00 PM EDT [facility] Name Value Range Interpretation Code Description Data Supporting Source(s) Document(s ) Physician No [id number] QKJeL [id number] [id number] eXBlL [facility] [id number] 5cGUv Center [id number] NlRm9 cbQ9TEHy7D XRpY2 LyTS8gg8In bmcvV 8wzHE7aqFF uY29k pO4pFv9GSI 5kb2J qCjIgMCBvY moKPD wvRmlsdGVy L0ZsY TPnFLNgo5M lL0xl vok7cHNzNR 4+c3R yZWFtCnicK +QCAA YkJUjTIO2d c3RyZ WFtCmVuZG9 iagoz QXJcu3IpEx w8L0Z hwQJmac7Am GF0ZU LcQ04nVW3K ZW5nd GggNjk+PnN 0cmVh nIb8oVJU7C rk0o/ INFAwNFAIS eNyCu EyVDAAQkMF I1MLP XNTBQtDPQs jhZBc Rz7NdGVMbI h+Rad rFmgSa8tJC yAXAL EdGi4QUG8z c3RyZ WFtCmVuZG9 iago0 WJNfm0LaBu w8L1B kJ7QZr5WjR 1VzZU 5vbmUvTmFt ZXMgN SAwIFIvVHl wZS9D QJZxcY5vD4 91dGx pbmVzIDYgM CBSL1 OoL1ZeEPcp MCBSL 1ZpZXdlclB yZWZl ldJgP8MkSH ggMCB TSe1PKM2mz 2JqCj cgMCBvYmoK PDwvS 3yjt8r3SXF gUl0v HAniVD1VNX dlcy9 Qh1WquXNuT 0lUWF FfZu7rGabj Pj4KZ C5xf5QfEhR gMCBv YmoKPDwvQ2 91bnQ jZI9SaYToh CAxMC AwIFIvTGFz dCAxM CAwIFI+Pgp lbmRv YmoKMTEgMC BvYmo TBg6TM8MBH XNlZC AxMiAwIFJd CmVuZ Z6drlvgVcF wIG9i got3XB6PaJ x0ZXI vRmxhdGVEZ WNvZG JnFIQrX4Wl IDI1O TYvTiAzPj5 zdHJl HC2JmBppso dUU9k Wh8+9N71Qk hCKlN RfkJZMCD90 SJEuK jEJEErAkAA iNkRU cERRkaYIMi jggKN DkbEiioUBU bHrBB lT2SQyUTbG SWStG d+8ee/Nm98 f935r g64G1Jogdh a6AJD 8gwXCTFgJg AyhWB Ai90FMhCzb YAcBD CIAF0fX1FV zs0IW +BPBbAP78B xsmRP 5L342AgD2+ yrTP4 zBAP+flLlZ IjEAU JiM5/L42Vw ZF8k4 PVecJbdPyZ i2NE3 OMErOIlmCM laTc/ NgF8b0tHEM OfMyh DvQh8SB2cZ w5Nwn 2685Tg6SiS AZF+c I+LkyviZjg 3RJhk DGb+SxGXxO NgAok qhf0uMCXKw tY5Io GaCp50dL6I jJX/D BO9nYnuDNW 8XOzF ouEiSniBkm XFOGj ZMTi+HPz03 ni8XM EG80eHSwEm iZGVk f1RBUEb/8W RR5bR myIjvYODk4 MG0tb v8w7F4d/Ju S93aW XoR/7hlEH/ jD9ld +hA8WaUBzo dn6h2 6sUVMc6gZF u/2Hz WAvAIqyvnU OfXEe unxeUsTiLG crq9z jQEqCf0ciP +jv+p 7Rp0JaiL9T vt3v5 HP014T2tmS xQ143 bgA5paOYvE 7icPk M5p+H+B8H/ nUeFh L9MU0PR3ZN RMumT CBMlrVbyBO IBZlC rgV0o6b3C2 P+pNm 5lona+BHQl lgCpS OjAH4pKLcp ESAJe 7Fn9Q10Q5H [place]/nN c9VUqS05y8 L+fVe 9YX7LRsA/j mNHRD G5MmBA9Zy5 WgI0I ABFQAPqQBv oAxPA BLbAEbgAD+ ADAkE oiARxYDHgg hSQAU QgFxSAtaAY lIKtY CeoBnWgETS DNnAY kXMd8DP2Zk 6By2A K8TLCMJ9sm CnwCs xAEISFyBAV Uod0I EPIHLKFWJA b5AMF QxFQHJQIJU NCSAI VQOugUqgcq obqoW boW+godBq6 AA1Dt 1EBnQA6TTa HIzAJ psFasBFsBb NgTzg IjoQXwcnwM jgfLo P6cLKfW3vD 7oRPw 2nuCTlEY7G nEYAQ ETqiizARFs JGQpF 4JAkRIauQE qQCaU StlS4tK3oJ SJGny FsUBkVFMVB MlAvK OrDA5dZUvP ahNqO qUQdQnag+1 FXUKG cE5NCDDkdb zdHO6 WG4XOhIcNj uRleg k0Op9BAgWz Q4+hU Ea7YjuCRSL H9MHC YVswKzGbMb 0445h RnGjGGmsVi sOtYc 64oNxXKwYm wxtgp 5UGiQwsR5j n2DI+ U6rDW8N1o6 Togrx FXgWnAncFd wE7gZ vBLeEO+MD8 Xz8Mv xZfhGfA9+C D+Suzy EcY8kKmzCU QiphL bNX6LZ2L8e LeEEk EvWITsRwoo C4hlh ZMQB1Lnxqj iVRSG YkNimBJCFt Ie0nn RAiUb0bt0l GZA9y MRwL8hZvXf 8h3ye /UaAqWCoEK PAUVi vUKHQqXFF4 pohXN NB2DFqpxD1 YoXhE cUjxqRJeyU iJrcR PBtYNi2KJ8 YbStD HN2YZ7GSqG ebNyi /SR3LxUPUR I4kPh UYoo+yhnKG NUhKp FUDP98CAPK upZ6j gNQzOmBdBS aaW0b 2iDtCkVioq dSrRK nkqNynEVKR 2hG9E J7Ip1Qbig+ nX6O1 LrYI1Esvjd 1TbVK 1mq0sqyrmd x1UrU 5wXA5I2oN8 R91NP Qa7h8fp/TQ GmYaY Vk9Pjl6Hne 8XQOb I4WYU2erms H59zW uVQARCA5J1 ju0xz TnUoV1yCXc tKq0j zl1QLwow1g naq9Q /qO8jKONoo NR6Cz Q+ekzmOGCs OTkc6 yQMImunR3e f11Jb s7mkK2P5aP elF6h Kzaxba1Ysj s/ST9 Hfq9+lMGOg YhBgU LzXy8DuJZY MMUw1 2G/YavjYyN Yow2G HUZPTJWMw4 wzjdu Hx3mQdJqI8 lm0mB yzRRjyjJNM 91tet qRYcV6KtXr MRsyh 10nlLIkx18 HLdAW ThZCiwaLG0 wS05O Lc7febcdVS YMtCy 36NJ6OFLjB W22z6 up0xZ0ogR5 daH3H nyYFiHOv58 Pzq62 OPrg6belcN PJc37 vu75wPoY7g bse32 8A0998gR5G /wb7X /hTLw8AHum 1h0tH HPsBs6nOFl 8YKY2 9ohPmQO6d4 rXY65 qKU3wNJ2Cf Y+RcX nnndS5kYi0 nG8/j sGpgGxpw6c lzrXa ZcKXfZp30a Unddd 457g/sDD30 PnkeT i8PdkUwx15 HPZ17 WXiKvDq/Xb Gf2Sv Ytl5Zwe6vW e9CH4 hPlU+1z31f PN9m3 3FdVf73mym 8pf7R /kP82/xsBW gHcgO aAqUDHwJWB fUGko GMW7PJWyw9 CRcE9 KTQQCSd2yU vzDec D46yHguXG0 O2h98 IUv5oGtN+O CQ8Lr wl/GGETURD Rv4C6 YMmClgWvIr 0iyyL rQZuYVgP3s xWjE6 Kbo1/HeMeU x0hjr ZBPhi7P77n TxHXH Y+Pc18tech f6LNy 1yZmAHfY94 foi40 H9xm1h6mwe vvj4E sUlnCVHEtG JMYkt hw92kPmSrl TSgKW 0Q4e5yK8h7 hOeB2 7Xn2Wdxz/n TyS5J fCkIZq1Iy1 ePJni jlKG0sANCu QLnqf 8m8pmbs6OG duf9i w1Id64N4mI mHFUS BGmCfsytTP zMoez uWGDf1BOwV ftXDY lRtM2TCWAy 7K7xT HJs8LSaHId XjKa4 5ZTk/MmNzr 3SJ5y laVcNMoP3a 3LJ/J 9879egVrBX dFboF tverL3prgQ +lXQq qWrelfrry5 aPb7G a14GcFU6eX t/KLQ tDZ66mL8lV U+RVt LschO1ppzl ixWKR iH8TajtxWl I2ijY YYfj4kwtKI 9LeCU BL22CA5lmq +Zuvv zDmKqGA77z krRls OezmM4LdMn h1uvb 3LcdKFcuzy 8f2x6 yrANEN1iRd pc7l+ x0GWQWPikJ sEuyS 1oZXNldZVC 1tep9 pEj4HG2FIZ utZu2 n0wl6opzd8 PHY01 nkBNvw424h YO/Ne r/6zgajhop 9mH05 +e91Jcq9f6 36url Ls0r49mP+4 X7pgY ePzo7Ion4v mi1lr XCrpHXyYML By994 z5Cqyzxgx5 e3lx4 ChySHHn+b+ O31w0 GHe4+wjrR9 Z/hdb Rg2j5FV3rp eOdWV 0iXtjusePh p4tLf Htwwgp1sq0 x/TPV OdJGD53QjE iaITn 07mn5w+lXX q6enk 33R0A0mnwG k9c60 vvG/wbNDZ8 +d8z5 3p9+w/ed71 /LELz gsHAgDn4Jr kcKlz qJ1w7sg0Pb oGHQY 9suiIem89G e4Znj l05qb8ymOE va+eu aCy0wTH/JH h61HX b46HuNL9lp v56Fb 5sgd6l06L4 FlzF3 793V9JpEn4 mvcbf dZ3kY5vVX0 +6j06 3JHJsoqy5W EnP2X /3S298ZN2B cWEzk JpW2fThmH1 Jy8/X vh4/EnWk5m nxT8r /1c5wOQKj2 94/DI wFTs1/lz0/ NOvm1 +ov9j/0u5l 73TY9 N4XAf9iQca 8UX9z 4C3rbf+7mH cTM7n ikx1fM1v+6 PkY9P Hke6mLx42U 94Tz+ wplbmRzdHJ lYW0K KY4hx0EcKn EzIDA mk1FdXnp8Y 0NvbG 0bP4XkE5Qb RGV2a TKfN7VstC1 IZWln aHQgMjkvU3 VidHl rRM5DkZPvR S9GaW z9WDKrYdis dGVEZ WNvZGUvVHl wZS9Y G6RmUJU9N0 dpZHR aJHK0Cu8EE W5ndG ggMjgvQml0 c1Blc kNvbXBvbmV udCA4 Tm6kvFVoXU 0KeJz twTEBAAAAw qD+qW lPW0WPGTKP AB4G+ 2OKjwplbmR zdHJl SC7NEX5qp2 JqCjE 9QECyy8XkX jw8L0 IriE5zZ0Zy Y2VbL 8oOJ4Mao7M kIDEy OZFoPy3pNP VpZ2h 6GIG8A0X9G nR5cG IrUC3cC9Qw Rmlsd VKvZ5EbSPA lRGVj w1VbR2B7yR UvWE9 xxsSnnO6FB WNvZG VQYXJtczw8 L0Nvb HVtbnMgMTg yL0Nv aE5biuFeW9 ByZWR cU4TvykGtT S9CaX VtOMDfF29i cG9uZ W50IDg+Pi9 XaWR0 aCAxODIvU0 1hc2s gMTMgMCBSL 0JpdH PHCZURf41w b25lb yThZT8SzsN lcnBv hHO4LED3sv VlL0x qzzi1gPB0Q DQ1Pj 4goPIqPV5D eNrtm wlUVEfWx2/ iJHMm 0bhGWRqatW VzwSW OE+PESEKMi iua0T gaYjQRjQIa AiKgQ NN00/vCqoC ANoLs w2WHwsoZEf FlURF QUUFAQJRFY Kq6ka XdwygCC06V d97R4 +t671Xd+tW 9/3vr OD7uoHSEN6 r5x2e aJ5z7ZGEQh eTElf KHr65/12/X xaRXh VMIeEsG5Aj 4qOf/ maUd0hA8WU M/NQv 10Up4RgYK0 zc9NW mZV0/Ps75G kRfLF Xi8UUpUpYx Eoj8X xJ8HDxnJvB z+1fe dF7nIKgmrW ChRQI sLOOwgma4p uL3+1 5dLv1NpFgJ pJZWN Y96/hqbHqw +Gw6S oEQ36onvJV ZbxM0 394EMHUHTZ 6hCDy S5nBhnlaMI Lc0Cd Eqi8tZjB4Q K8rCv 3BjZqbHmam le12v JrcZVJrd4y 7uRl3 hGppTdrGl5 1/+qb Wr/WQ6OyFS D0AkN B7PGU2nRw1 ARQp4 JuHDK1TPA2 5ojYe afADFeYQia fzJT4 aYtDLEwmgx I5ID7 /zUZE/JeZU xzo8E NCo1WlBVpu XS6eJ gHj7x10r3Q Xja2P HAgBg0iO7I LudVk /Oc8dM6T7p hyRlQ eigcAEJWpq boXUB mT/DCAwYDr N1f/3 NwWIoWbsRY R2shC 0OehkBOYNc 7/2xg NV4KCu1AvW 9tfcd a6Um2RKVOm RL/YJ dzqnyrrXVp COPN/ DMcTte2z40 SOLOMON+6 RP90rM1xBM EaCgk 2VM0chph3u p2ujn WOmIuPrlix Gh+uc R7txPhKJVV QBl+u vv/bJdUaDH k4rIC etRrTl98j3 h615u FHSAu7xWYf dr60G VMHO1MwLU6 giIFJ leGPyvj1A+ zGkJM OWr3O40PQQ 5/X+F bX34Ycyf3i 4YUGM sP2HNZ7hY4 UKECH sMETHcGgT6 yKVxP bKeTsf62O8 BRXCk l92Csv+yfO ymJoC KO+isNyc1E 4vInz dqjPaEgQYV JlrDF Hsl4xO+0cM 90FqQ jrInUHKBqW TQpxt eP1jytIMxQ SPzCJ jhjqXoLIHh 1rD97 lk/kdPRud0 hNS6z oatXRt09OF 7vNOg ygOhGWHUiL vOa/N L70u2GnAdg SwkUl PLU1C677x7 UiCGX 8+5iSZcTlF gwbhF 4ASK19Qxxu m+8L9 HMhxj246oC ZtPDU TCLDePtYJL 9B0s8 ExdD1fD3x+ 0/dlF gwIaPbGDCY TBgfr U33D+uoOtZ W298I cfCNNGIZgt I64QW 1QruLTm8vc Wn3Bh BTKHmE7SU0 w+Xsa 4NWpMz6Mu8 xxCY6 ITm5bf4wGW 2KTL0 pDOqd8u9+K zrvwn ZijZiq7nh5 EvF1f IgEphQ/JV5 nKl1M r4+S3H1Qap +UNKq Awno/OKnmN OJN4Y xltKSK2L4C mdh4j WRLBZ3k66M JM40K geeOY2WSV5 5OGzN 4lIo4aU3Gi BywRk HfO3bweWld 1Wb2k SDtiuoc+Bj mkTjl evkZm1AWb2 TgBID sY1nrqnWV9 p4pMM OL2aefgLI2 dwNJM QCE9sL3Liv GLRor 98BBRcgOsd klImv vLVfX1P7sN Q6ifx u/UNgYG2U0 XBIA1 0ezPEgrAja 8GuvG ZEu8Yu+Joy IzNsW LEgJ4yt5Fy eJJr6 fih47C3Rvg ZiMEp juBDMHhedn 3U9BA +XegtlbA+Q PNN09 3aDCABLHyT dvhEC grB5lejF96 qBGO8 D1LMGdBqO8 aqt9L LcH5JwfPWp 538a/ tYXcyF7wy9 28ZSH QKk2D7mheU MHYvA t/CIDJzmg+ 8MIdY kx60O+g6Ya iGP6V xY8Qt2AzLm UJFN1 EC5OgvG1IH Wqcj7 0EPWHAH13B 4xOVL 8nNZBdmcOG glspo oXK6yopzXP euDDN BtB9rUtKsF GaCCk r/9Mee9Oq5 lJJ/A zSYoOB6+0G /DgA1 VkiuoJq0Vj 7fNAD XZIBy3Rqtf empGB Eb/uUREEE5 s4YL5 eQlyTCMLI5 8iTo7 +JoMGYK284 tfnEK TuE4+l+Wla l+UiC r+Rrwf63Ho FXTZu IIgwyV/rosales E3zIE xfIEW9dFdN YOu1A dwxkzx58xG kPWCE 3tjZsFZXeR 60LO8 rU2hcHDc+w qod7E iIwkV+d4TD E6MXO 9UNPkVP+5p vfU3R jy7j/5UkcF RCqSb 5G3qpTMQLm uDczk 1VGEMp8UrZ wNH9r O+vbk6eQ/h 8hAIb bLbMErQUSN VVxxf +ivlXfrUAx Ck2HB SpMrasznYN q02B5 nC+VEZLtDC nbj+o J/6mN7QSd3 8Cwer AxECstrxDJ cApFx i/iy9OQ0LT l9I2E 8sPE10a12n XMHyy Ad/janaImW 8Zk3y yrrRo+IHt/ EMsrr qOz0fUIStj U6/aL Deb1vn06k8 FH5xR egJYgG4+h9 SXq/C w7r0nL5TR2 XWa3d EH7QC51ucq oVIkJ eoeTL6maAZ Yf3X/ tzciGCchlc xGOFn i+SC4WbS1B IGPD1 BfR9UcmMZP 1NiSx Gah31sbnIS pGrt+ 4DgYZMtHJ/ tIzaJ haRSKL1yL5 UQHEY EfUqBP5NKB 65ENH beOCWE79a5 VICzc s2kWmfMme8 JTWS4 r+tbZNtpFg HjVvo P5YnP4go4j oRkZX 1rlGZ7FpwZ yILuW IvwhFekduL pIq8C P+dkYc6Ns9 4mjoM Io+f28CzXi SIo88 hFLY5RPXh+ epnXZ 2OvulAYmIF o0Ttu /5HNzqfly0 qMzQ2 LY6cjp8KOU 5Aruq aCnFSgDoxy QnAEc SAcYvIu4hy vh3Ka WA8fb0R5Go YJ6fk Vmw+EgmGXO yl/tq TuZc1e4mXe LUTZM cPpBd0q+K9 LV2e6 B1ngdCG8VL Fkc22 cQv6CJETVM 8y9bt 13N7VMN/Gp kYnOA 838HT4cThX I1+Cp jsA456oa33 3IgrG bfqwEgXL1z 2jrdg AfA379qDIm Alamg oiwi36wdoK vxAit rKnk7GBcFr D0Uh4 Im+3/mCMnM OcYey YWt74d45Mm V8AkY 2xq4zNLueM dWdUd zXZycjIF9E IMSgk HyuMoq7NcA AiOaN FRGejyIsQm QWldf J3+tqtuxOX C+D9w 99Ynampa+r NnL97 cblq+7q8yI mYIiR EYLbnJCO+v HURZQ pe+tl6lpn2 L+VFb XXoKEhpT78 UM+qj y9ZtZXk7Em U71wu al9rC1h8NY IdD2o lT6C7AFNAy KLyqt SkgXcGJu2b CXJhG AXVKbeOjwX JVpEX mjAKRh4+ei E1pzX 15RJLlnXKC qBapS I111bYf0+S ccizn kYqczxwkUB xFiBD wYkQmWCs6s +0dvb OxFtHhmTkl 97zQ0 nXyfTmDV4K Y2J3M JJb9ax3lzm 5vk13 p2AHKuRJRd 8DAQ8 CAwvui3wy6 YRoZI nXRkwHE43p FiL5H YcuPSFfXM5 z66/C 2OyS+JCLfO 56X09 CrLMPxatbm Oh6/O KEhS4ILnG4 NzQkd YCz6oYERIB 7i4GG ufEGm9NIcC JH+PP Nh2RAf6JQl PI8mT z+Cl9ehwvw lyF9b hOFVrcHyjS ocwD0 Z9dPo5+iX0 iJa66 Yn9BV9WTJQ hZZ4e eQtbzOnRBw U1Vh5 JZJVCjAUlR wI7tI QicaIaEmhB xRoSM EeJcwE1RvH sFiMS OmwSe/3R5P kXo0d oErBjoEkOV Xup3I Vo4PikuLWg y2S3K N12ghQHRkk kPFnl ZQtmPoWcbX G3mNQ HcEPHB6P5t iyHb0 zR+ema2pl8 2wJlj 9aNEqewdJ3 AQkzD i6jDrXq1kA xC8gT B7CJUG6RiO 0+hYQ Xihfz8ooP7 7yzl3 UgZ9Po5coh tl6mX Rpj9tc0Vno Z1EEB 2OkeTekS1a YYQqR J9j5KedyXD oYgZf W9lGSVYWRm rPe6B 65IX9hUbwt ZiOjx w6TBfx6rM7 eU4TS MiI2jX2y9S m4POM zN3jik80nG ngcoU UjmOdc23Ng t/LGf Dn+Yf7RlNL O+CJS y5RwO6y5PK lStyS 3lrYkNID1B Ip/7X OXrxlSOk1Z 9yksD FgN6oMyWmj uax6S c/p0sdRN/L FNUXa UjstoyUvxh 4uoDw 3p83Dbi3jt GKyX/ hsRPX+2Nxv k3Wli k9O87sQN7V CtrHh 79gXDybq1/ aRftQ eTguiFKbvG eUy8K tKAstCLjsk vwR6Z aHEGYJKnwi ejhRG Ztg+TXkN/a xWC3R GLvYyQNqDL 107Ba CJjY2dfXdZ wAJCH F/Azk6SaEh Z1yMh M+jsy8Vne/ LXZ3d sU5g6aqSSH brBOA yIAZlCvlD6 Tbk0j BypHItGJdK K+sK6 ss2H4tEcxa jVK8m PQyvFmIFow 23YJ5 zGh78Wd5v7 Q5goy tYXT8HkC+c 4htff P542d9p1IQ 5YA6+ VUhKF57wND wMY0c KLntgnemkD ZYMKg E2ZweBNCd6 FlrE9 T29K6eMyo7 yVpuH bqpr1LWjYk uy80j rXApuv+73M LrDyz ZKRM/98S7L agN8j ckqplTQmD8 1YHvO MBMwR/akHh 4AxMJ shpMydN7C9 rhIye CjfNO92KL6 puOmx f7bbWNk9Rs FAXH/ Mz71UTVMnm q9AXb zuhsEFbceX iIk05 s05o6gUZeO bzQZ5 gzkuKzb/Y9 ra0NK VYn/HGXGl1 1lf/O NfwVyE6QJX Gf0EC Q3bJwKVZaB XFR4v ytvIfyBD6k DT5Xb K01VwEdnPX wLKBr r/r5ZDW4XN fISUl dQkJF4DB58 WhvSE tA42PXe35N A/6/d jyQGPk0tRK TL/Oz e+/oXJjugs erzcM MTZIUp7bkg 97Q/L i7UnDSh6s+ kQVTX DEQmA1JCDV OuIJz Qz7ikRAec1 DGx6Z Wp8BEJ/joq PH+8M 5LmRUQgj4O RApMd G5QSe7l3iZ FvmYj 2jUT4TJq8o 1PHku L68PBtc+oz ppq5G B3OH53IUA6 /SigJ HcZo0pIWuu vRP9c azlI+mUX3t 9kfX4 PJbOvzS+0r G1HUt 0DJTcpGptb dlHOT Yq3UUhKDhP public area supervisor+l H0tjiC10p/ Hs3z+ CcIU5qqWTb fx4fP 8mbWlV/XuL eWj8H zdjwgA1UZ3 v2dQ6 +WfX/lfvo2 ZtsU0 JTiiVeO/SX UJYyA IbP0bZY6nr 9r7Is a+xTNzlnNF 37wH3 3D1u2xcKvt Gddar rF7tRU6wNq Q1+Jm quP5JQ9/h0 VO6Ee tFWKFe09J0 rhO97 q4xuSuPRAi LX3jt FjoBVTFjpj 7/M1a IiV+8R0Stp a2pbY S5bAv4hHS+ WvOuw 5gyXIclYm0 r/e8A CPlpUlKBLE jE6p7 C4q06B4b/1 xB8P/ V8GEPwejpy gnJZe Q+uvfp1fJr bOJ1z M31zel/vCq u7VQ8 /bY+yO2/ce lVU2N Y5wT5JZYRl ouNt5 XXzTB/UWkV d13Kh 6CEpUnJXos Y6dyG xrf/oWkbeH 5FHf/ Dls30GZicc B4Dp+ wjsnl4jpEG ms0D/ GSaBgtiA2C eTtgQ 0O84MYfzI3 CALKb mgwiQLKZEt O8pvS /3dYmJ4T8s A552o tOitrmt+sn v8Plv PL0XmarsAp dHJlY Z0XZB8xm8L qCjE1 KKTly1QiLo w8L0d pw8ZqIYdgY y9Ucm Hgb3QekeIj Y3kvS NE4mjGyT8o gZmFs z2DfJ9AqTP EgMCB BZc6bD81kz GVudH NbMiAwIFIg MTYgM CBSIDMgMCB SXS9U pPOaT5XhY3 UvUmV oa1XjG4YpZ DwvQ2 1wt2IQlGEi ZTw8L 2UxDmZ2lUX SR0Ig MTEgMCBSPj 4vUHJ dK8IlxNOaR 1BERi OaTXQ4lHVm SW1hZ 6XUZC8DcMT nZUMg M8xzHYxzNN 0vRm9 ywLe1E3rqL m8gMT reRNIIX5oq bHYgM MfeMMJSU0a pMCAx DQIsHt6VGB 9iIDE 0FYKaXc5+L 1hPYm jmA2M9CV0m bTM1M rF4XLW8INU gUi90 JzW8DhLaBV IwIDA gUj4+Pj4vU GFyZW 50IDkgMCBS L01lZ HguOs32UwJ gMCA2 MTIgNzkyXT 4+CmV yBQ1wwah4M DAgb2 XsMaq0E0ql ZHNbM TUgMCBSXS9 UeXBl N2MuD9UmB9 NvdW5 0IDEvUGFyZ W50ID iyWKYNGe7E ZW5kb 2JqCjIwIDA gb2Jq Cly9S5kka1 VwPDw fXc6UpkBwd 3Bhcm IzV4mcV7Kv L0lDQ 5Wve2UpWJJ yIDAg Ul0+Pi9TdW J0eXB iR4Igpb3lQ mlsdG TwD7McAQSk RGVjb 3JmD9I5vOK vWE9i wrFppP8YDW RyaXh bMSAwIDAgM SAwID DqV5Yrss0P eXBlI ZVbLpKwt3O yY2Vz PDwvUHJvY1 NldFs bKSBHH8Nkt HQvSW 2aZ9ITT4es YWdlQ s1QdXAiMXi dL1hP BmorW5B1MX 9pbTM 6KiQ2LLL4B DAgUj 4+Ue6bQgHc eFswI DAgMTgyIDI 5XS9M AE9grNkqRT k+PnN 7inBzaFk7f NPPzD H6RYu9FEXU BwARc gLfCmVuZHN 0cmVh bQplbmRvYm oKMTY gMCBvYmoKP DwvRm sbtODjE1Qo YXRlR MVxd9WoE6z lbmd0 iKRjSIx0Rs 5zdHJ qNN1ZwJfSN Vtv2z YUfu+vILAX G6gVU ndlT/GlrYf ayWyn xbYMgyIztg ZdXF2 Stb9+R5RIy o4tV1 aHNXAtUiTP Od+50 ty2FzDIZBL /1UG6 vrlXTf0L8I 3HtpE SGtWaurG0n MYx+v VNsZqtJUjD JrIMX YLAhemNR3X whbCC xSfZoKsPdB gjeLt 6EvswGjiKB idigl tjU88S0fwe /p9o9 csbhCarNwd ENEex mJ8OOdQolw BPUyr W9UYEC2Vhm ATPiO ADGpZCbHb+ jefFe CH62XM6eQG rEsrE 3VySxd1kcv 2SQKV YnHhITuf3X OKCzG iUuQEffaBu kG356 C3do7HSwqW x+3Q2 myxmN/P5W0 7w5m4 x/dxHi6HgV c3ois I0CbuNg5Vx 0DM4Y +tyTZoWFtJ kcUQD 3l9Renm5rA Pecx+ aVb31MntlQ jyMb4 uAHrl7X73L xSB1e 42B2XjqUI7 Wi3Fn GQdI3RlgUa pzk7R Yz4ksQP9qP zcp6B v6zCpYINi/ 8SeiG qo+aFRaJ/I fb0dg EsRjKC8f67 2xxiw KoYenS0tTS C79Z/ EIOWA7gMwI xh3C6 ak1JTSZTiw pm4U6 r8WAxsw+Ur GKT5s S9CPEVDfB6 ejDze C3aOuofXPL U71YV gx9xUnOGcK TLeiX jUFmAW8mez 4pFmT cysGa5Vkkl GZj8u zL6Y4Qldn3 P8qkV J4yuK6f/GUANAKITO eFq1U XxfKYCJaaS Lcx51 rzeGDyXjVp FSTKJ N2ttcIsz6V XVPRT JBKOq51xYI Zx14e UllmeDFkZz 9Ka+M zsd8TvYdyi 27m17 n65TQTwILB YPA6j gcwu42orJm k6e6S ROWgVjQ0Lv OED6p kvWEX2wuYk rSW+Q 2PaFtGy9b9 pY9M3 OISwA8ij/A 4F+ck QwiPS1xzZD VCZRQ 1Qv88pVNg6 VbUS5 WQUM/fFTCK YL8Lq BjMYUM8x3m bL5mm wtvU5Pwz9P qCx3T nco+uz7vi6 aFn68 JYK4TrlHze YKVKo ydq4OiOnCx rQqMy frWQ/8QOKF ht27H 4Dsz+SuRuH 6utfI Vjopmx6PrP aACU4 Mk07pzC/jX 1Pd8V Mo/tLF6D19 VkPb4 rNlRKUMjv8 z3QFQ K8bMZSjQ9R QmSAf oEiURUHBXx UfgV8 dfl/gLZw9A v6jCK hSKW3Kn/hy 4D1GI 4hvbgKCfi1 gbCtL 2hZMPidPBq aVTEE x8CkHRy5fA vwHNQ cWKdtX5z8T J+GTh OYBrU0lkos MezIc R22cJ+ZI8x +N6xo UOJZsArCQ5 pwCJ+ 7jNPX+j8Ks NBAcG AgTbwSSzlk lU0d4 5JnVqyQo4L jk0uL 1zO4lJIxqV ryZtZ JPjYnGXe63 V5Ksz vURi2XrASa 3qfpa ZBbQAo8uPX 7uVpN g6eekAyATd 281kQ huQ1oN6AW0 cVkeQ /tLIGcKTS+ XJXSc wMlr7wC0Lz DDVN/ LjPUQ+9TH9 mQznm m6lIMKvSMJ hwMaC 213nYw9z46 MRM5c l6Mvq+/wd2 pL9zI Wwm4VTql5i Ntv3f HzDOO/3YlN EfNxa qZyxmgbNLN Z6bv5 9co1MA6M8c Q4lQV nsALPNZiaC 2h1qt DKIYRj7JTW kPvoI R+6Iuekmml USCzW +F6r2AD2hj BDcne 1JPL5KETUB C91CM lVmNxesfC5 kGZL2 y5AQBDWiJl ZBAHo jR/eggzI7q OX3wZ JZko9PxMtt Y9Wdt YG8FqGgQQa TmZ+p sIAobnSkbq 9S47k n2e0lWFhF4 WZTSj EgJv3FxRm5 qpyEe +eILKulhcW VdG01 [id number] urxdc 4OcleFKcXK l1ANr Ki8xTKOz1X 6j/wi NcfkLJuqyP zKdCY tMXSBP2MFX t7IXk Q8BydHlYZi 5UxXS 01A1Y2JkSz 9ixsC ik2D1EJ+52 Olt3W gdpRx07YLt WFmhW ffCL1K8154 N6kce rekvErwXy2 /FupD R/9qkIYbNl rbRER SCpulgiBgt dZTUL lPoobPQwI8 20kv8 A7f4DZu/ym KJXc3 BGYj4ZSjUO ZbL0z mukIBP5lOv ppKdr nkEd93azmf 5uCcR XKbl+f/ktf 48TV0 i58N0bLWZ3 bhd/j rUCk+p6IoR N/Qjp hYAC5hZ8fp PLGAv oSsWsC6/ap 0jAKK whzipBQSAl E1W3p /YL5h2AeY7 9QI4t YIAEwWbTlv 5WwYX 3cGQDhxMWq eDBfX iMASkGLjpd Ruiln NhRPtc+oUI Zn4gr MuG1xRXTW7 Fz0q1 s4Kl5F37Lp PUhh6 2Y6pQUOJDZ 1urC+ D6HGUYK6LB /gyGl b9Kjc9+uHP ldZAX xI/pQdq1x2 TCb4x dfAPYN0pWI jU7Ta ST+t/y5AKj 1A3rQ j7pm1k6bAy 1N9hH hUEQlAnoZZ Dv5LJ 6BANcbfo76 1kuLw q3lZeQDjtg 61Ygq wkSl41dIR0 fG4Sc BNTLkjgqUm GwVxT CyX2ZaOCgr ENTu+ +C2mw7w2A/ Rk6we gR12Sp69Rh VM6/L vji01a9hQi ONumn +Q1zBVZ4HR f043W nmYXXajpMz HR+/r dhd3y5FqyV vJ/8C 6SG+cgplbm RzdHJ qSC1GZK7pd 2JqCj K1WNWum9Cc Cjw8L 05hbWUvSGV PYi9T rTO9pHJfZ2 R5cGU kH1C9gXKgC m9udC 8ZBILrPu5a dC9IZ Us2WDNuH9P tT2Js nKB5XQ4Coh NvZGl oUi2QaK6Ki nNpRW 5oq5Znnxz+ Pgplb mRvYmoKMTc gMCBv YmoKPDwvTm FtZS9 SLPLlT9B5A nR5cG UvVHlwZTEv VHlwZ C0Zi916D7D hc2VG z270P3jxaT ZldGl lVZ0Xg5msD 0VuY2 0xyS5hO4ys bkFuc 2lFbmNvZGl uZz4+ LfXtJB1qvn oxOCA dMV4wktq5A C9OYW 1dE4fuxJTg U3Vid TsxJQ3PuGT lMS9U zXVwG4Qveu QvQmF zZUZvbnQvS GVsdm R5iGSfN2Tz Y29ka J7wC6coimF uc2lF bmNvZGluZz 4+CmV xXC6nkhv6H DAgb2 UxIda3Wh0Z ZW5kb 2JqCjUgMCB vYmoK PDwvRGVzdH MgMjE rNEJQKh9UF W5kb2 JqCjIyIDAg b2JqC de4J2NuGVZ gMCBS K5sVBeOoTz A1OTg gbnVsbF0+P gplbm RvYmoKMjMg MCBvY moKPDwvRFs xNSAw IFIvWFlaID M2IDU 5NSBudWxsX T4+Cm EpOB8iptzu NCAwI Z3hahp7DO5 EWzE1 BJOsHr0HET ogMzY kDlI5ZM31r GxdPj 7ZKK6cs2Rz CjIxI BTse0BaFsf 8L05h bWVzWyhfYT NlNGU 1MTctYWJkN C00ZT BmLWJiZGQt NDdhN DRhZDhlMWF hKSAy MiAwIFIoXz E0OTN lGzT0TVYgQ GUtND TsUK8zWhEz LTNkO WZmNjgwZjF lYykg MjMgMCBSKE 1LTUc pLKm9a4tlg WFuIE ZvudO4nHHr IDI0I DAgUl0+Pgp lbmRv YmoKMTAgMC BvYmo KPDwvRGVzd ChNS0 1HLVBoeXNp Y2lhb vQFv00vdTc 0KS9Q YXJlbnQgNi AwIFI jXIm3aFS6F mVmZj AwNTAwMDY4 MDA3O TAwNzMwMDY 5MDA2 MzAwNjkwMD YxMDA 2ZTAwMjAwM DQzMD I7CtVhIoZk MDczM HF0NBHmAfY wMDc0 Pj4+CmVuZG 9iago oERExZF0av go8PC 3Xb8VCKMCz KEQ6M oXlNNM3IQF xOTM5 NTAtMDQnMD AnKS9 DcmVhdGlvb kRhdG UoRDoyMDIw MDQxM mY2Vfx9SZc tNCcw NRxsZ7Erw9 R1Y2V yKEliZXggU ERGIE InNEN1x0Wa NC45L jAuMTUvODQ zOCBb VyJZSF7WZ4 I7IG1 vZGlmaWVkI HVzaW 9sIDmEUXx6 IDIuM D68YEG8JAG UM1hU KT4+CmVuZG 9iagp 4cmVmCjAgM jYKMD AwMDAwMDAw MCA2N TUzNSBmIAo wMDAw BHAqVYN4GA AwMDA mLM5eScHaK DAwMD AxMDMgMDAw MDAgb iAKMDAwMDA wMDE3 OSAwMDAw BuIAo wMDAwMDAwM zE0ID QtCEZdOG4o CjAwM ZXmEFZ5RNV gMDAw MDAgbiAKMD AwMDA eJGS5ONKqR DAw BuIAowMDAw MDAwN BE5CMFtZND wIG4g CjAwMDAwMT A2ODI gMDAwMDAgb iAKMD AwMDAwODA3 MiAwM DAwBuIAo wMDAw PWFvBAO4OB AwMDA hBM2jAkBdA DAwMD E4TPQrDQVs MDAgb iAKMDAwMDA wMDU3 OCAwMDAw BuIAo wMDAwMDAzM jQ3ID QfNMPwCK3k CjAwM FMiHXF5OmV gMDAw MDAgbiAKMD AwMDA wNzczOCAwM DAw BuIAowMDAw MDA4N YL1ZUNnMDF wIG4g CjAwMDAwMT A0Nzk gMDAwMDAgb iAKMD AwMDAxMDU4 MyAwM DAwBuIAo wMDAw MDEwMzcyID AwMDA qBV3cDpByS DAwMD gxMzcgMDAw MDAgb iAKMDAwMDA xMDg3 NiAwMDAw BuIAo wMDAwMDEwN zM1ID TvLJCqHW8g CjAwM LJxORT7QZX gMDAw MDAgbiAKMD AwMDA xMDgyOSAwM DAw BuIAowMDAw MDExM TcxIDAwMDA wIG4g CnRyYWlsZX IKPDw jQN1qnpYgH SAwIF IvSUQgWzxh ZmYzZ UkaBMH6WQy xNjll NuSdQVN1NW NjZjI 6GDxaXq87F jEyMz hiYTRlZTE2 NzljO WEwZmUwZmE 1Yzk3 ZTcwMWE+XS 9Sb29 0IDQgMCBSL 1Npem UgMjY+Pgpz dGFyd HhyZWYKMTE zNTEK KXWGB0TN ID Date Data Source [id number] 08/13/2019 07:32:00 AM EDT [facility] Name Value Range Interpretation Code Description Data Supporting Source(s) Document(s ) Discharge William RKEXBm7gUd QKJeL [facility] - sj5INIRYnW G9iag Makaweli y8KC6FwVN0 [facility] 2P3fHCrB0J 5cGUv Center Na8vxK0EVT NlRm9 maC6ZHWd6R XRpY2 AhHL3rq5If bmcvV 9pbSY4oiLV uY29k aU6aZu9INI 5kb2J qCjIgMCBvY moKPD wvRmlsdGVy L0ZsY JRxAWZef7P lL0xl rax8nOXcAV 4+c3R yZWFtCnicK +QCAA QyXYgHNW2b c3RyZ WFtCmVuZG9 iagoz QJGan1KzGt w8L0Z amNZkof3Xg GF0ZU UzQ69eXA0D ZW5nd GggNjk+PnN 0cmVh lFs6lZBC2A rk0o/ INFAwNFAIS eNyCu EyVDAAQkMF I1MLP XNTBQtDPQs jhZBc Qa0VmQZJkU h+Rad XPtiAx5hMK yAXAL W8He4OXP6u c3RyZ WFtCmVuZG9 iago0 TYKou1JiLu w8L0Z xxUKrts2Og GF0ZU NoQ35cHO9T ZW5nd GggMTA+PnN 0cmVh tBn4gNdeTy AA7gB 1VaEsUYA2a mVhbQ plbmRvYmoK NSAwI O1ftgz1BK3 GaWx0 ZXIvRmxhdG VEZWN vZGUvTGVuZ 3RoID tnHs5nuUTi YW0Ke SzPARNc2LC PyDRU MDRQCEnjcg rhMlQ wAEJDBSNTC z1zUw IKRt7YG5RG XC6Ng FN2FXPezkq 0BSPN aDsy2tIdPM 4AtIM K7OzgcwEzf HJlYW 8QGH9or4Qp CjYgM CBvYmoKPDw vUGFn QB7oUMEfOD NlTm9 jVU1DRS7nw yA3ID VgEo2BaFRs L0Nhd VAim5hyP5I 0bGlu ZXMgOCAwIF IvUGF nZXMgOSAwI FIvVm ibi1YtGULq ZmVyZ T1rQZVjDOL gMCBS Qb2HUK7gy7 JqCjk gMCBvYmoKP DwvS2 thj7ydYEJn IFJdL 8E0xOClWPL nZXMv M767zuHyAl 9JVFh FDCApHO34O T4+Cm NpFS0sttg8 IDAgb 0YfNdl9U3W vdW50 IDEvRmlyc3 QgMTI gSXHBP4uzq 3QgMT UuMYPCJg8W ZW5kb 2JqCjEzIDA gb2Jq ClsvSUNDQm FzZWQ gMTQgMCBSX Qplbm RvYmoKMTQg MCBvY moKPDwvRml sdGVy V8YfKUMgAY Vjb2R oN7dblpk5q CAyNT j8Q46hJt6+ c3RyZ WFtCnicnZZ 3VFPZ AokKrMo3DV IQipT Kb5xDHnoOg UiRLi oxCRBKwJAA IjZEV HBEUZGmCDI o4ICj I5BsQasRZD Gx6wQ ZRNRxcBQbl klkrR nfvHnvzZvf H/d+a 5+9k20f903 WugCQ /IMFwkxYCY AMoVg E1ezNzE8NI 2AHAQ zwAANsAOBw s7NCF vhGApkCfNi MbJkT +Ea3ua1g+f sq0z+ MwQD/n5S5W SIxAF CYjOfy+Nlc GRfJO C4HrGH8P1s YtjRN zjBKziJZgj JWk3P iOOp37cqhT znzMo B1MoacjhTr 8OTcJ +ONORK+jJF gGRfn JUc8Jt5hC4 N0SYZ Axm/ksRl8T jYAKJ OqWwFgJ8Gb LWOSK ZPPNuN6PAB IyV/w 7d6StX1Jnz /Fzsx lJbDfa3bQC lxTho 3LK0dvw40V 54vFz HNIR78o8hB YmRlZ HOFyAGbP/F kUeW0 KpuM34Xd0O DBtLW 2+KNR/Xfyb kvd2l l6Ef+4ZRB/ 4w/ZX fpkNALCmZb XZ+od taRUAXesBU Lv9h8 5kXdVOvv50 Dn1xH qa1MkSB8bb nK6vc 6MbRWS1dXW /o7/q xXz9XM2wMP r7d7+ VhePOTOJJ0 MUNeN 25meqZExMj O4nD5 DOafh/gfB/ 51HhY R/CS+iC+UR UTLpk kxIGs8K4hC iAWZQ Jyoti+J+a+A/ D/qTZ cSxU4uqT5C ZYAqU hGkB+HgAoK hEgCX miJ5BjhDoV RwP5z YvRmZid+8+ C/n1X uEz+yBYkf4 5jR0Q yuBJRzuya/ FoCNC ZUDDNW5xKa 6AMTw HV0oDY9PI/ gAwJB KLyAjOHc6H IUkAF EIBcUgLWgG JSCrW ZbaZR8fOY0 gzZwG HSBY+A0OAc ugctg BNwBUjAOno Ap8Ar MQBCEhcgQF VKHdC BDyByyhViQ G+QDB UMRUByUCCV DQkgC FUDroFKoHK qG6qF m7WbbQOGcy gANQ7 egUWgS+hV6 ByMwC abBWrARbAW zYE84 OT6ZX1NU3V I4Hy6 Ao0FFpDG7D O6ET8 GL1CDPVk+B pxGAE SO2frodLYh CRkKR eCQJESGrkB KkAml X2cOyeV+5i kiRp8 hbFAZFRTFQ TJQLy l4VimWqjcX WoTaj ixQIWF0iWe RV1Ch qCvURTUZro s3Rzu nBcNe2ES6L LkZXo KsTMhmd6VQ 0OPoV QbZrM5bvtr h/TBw mFbMCsxmzG 9OOOY UZxoxhprFY rDrWH OuKDcVysGJ sMbYK reO6WvaTU2 59gyP cuSX6VF2aT E6IK8 BO6EqvI1KX cBO4G ldZ5oVeyY/ F8/DL 2HW8HnhAzv g/jp8 zLIVEMf4ER EIqYS 6kvxWTSYa7 S3hBJ HT1mO4HpXT AuIZY UGjFUB3hIw 4lUUh mJDYpgSQhb SHtJ5 9a2PG8KKLJ RmQPc ciGTE0Tdtw fId8n i9ZhQdqtZL jwFFY g7Nw6CxxLb KaIVz AE1QBcjOua WKF4R OMB3otQMha Iia3E ORunXDO6DS mG0rQ gVntPZYG1W 3mzco vyBeVHFCzF iOJD4 VGKKPsoZyh jVISq Y1QNhbP20S bqWeo 4DUMzpgXQU mmltG 0bs1IeBRzG nUq0S x2KnziqQFg doRvR A+xn2KM5Tn p1+jt OOKMAXw3bX tU21S iek5VkdFak 8dVK1 NrVRtTeqTP UfdTT 2Dpmu3xo98 BpmGm Ea+Td9UO6w /F0Dm 3BqqqkeXK7 h+fc1 dL1rMGaVGs o7tMc 0JtJ0tuc79 rSqtI 6o/YLx29ym Z2qvU X4eLftUmTH TUegs 1TjlV3khsl Dk5HO qTK0EyL9PC X9dSW 05hyDirM2k npReo W48Lo90Kk3 LP0k/ G27fkwUJjp GIQYF Jc3Fyt0hwo zDFMN egp3Pa79Vq WKMNh t7SA2iPlJP MM43b jW+h7L9aZw ZZtJg fb5BV5dhDH PdbXr NQTodN6jwp zEbMo yNAcqT6qcG hy3QF d3OJqmOxje MEtOT luFkAU6a9u 2DLQs tuyyfWRlYx Vtts+ q3+brre99v 3Wh9x 2OxB9tCmXT j86ut dS6Gtkx13c zyXN+ 5q+x0e86jY 27Ht9 off2Cjcd6v v8G+1 /8Ia7TYgLY NYdLR wDHRsdbxBo vGCmN gHx20Tzl9Y a12Ou w45tbKRvv0 2PkXF 3SIlueQw3A 5xvP4 8xrnjbnquX Jc612 tfwi7NKy0t lJ3XX oBg3S1Hd88 D55Hk 0rXk7pqhpz Bz2de 3m4pvl3x14 xn9kr 2KW/E28+7x HvQh+ UJ1RRpi11P zzfZt 9V3ys/eb4X fKX+0 f5D/Nv8bAV oB3ID tqOhMa2YSu X1BpK SALoZCI1HH gkXBP XAbNYBW4wT 78w3n C+t6yXIGuC Dtoff AwKWVeS2dv gkPC6 9YixoiK4JS 0b+Au mDJgpYFryK 9Issi 70SZREmieq MVoxO py2Gqo4qJv MdIY6 5uM8UnamCV E8R1x 2Pjo+Ob4qc X+izc gNC8mY9eAS H6IuN FeYsuLNZYn L74+B LFJZwlRxLR iTGJL YnvOaGcBs7 00oCl tUunuGzuLu 4Tngd vB2+S78ov5 08kuS xZBv5Ymv5r njyZ4 d9WhcGLxTZ UC56n +bvOye3RL9 3bn/Y tTCj5XWDFu ZhxVE hInoz6YeWu 8zKHs 6mqbnTpf1u X7Vw2 ESiGMJQM2A uyu8U 02c/UgMREs l4ymu DQN6AoGyj5 90iec y2bd8X38zE Nyyfy ffO/XoFawV 3RW6B bsLZgdKXny vpV0K mfv5bK270b Wj2+x m/NgbWEtWl rfyi0 LiwvfLkuZl 1PkVb VwfBf6H0bQ 4sVik WNFsa5rPrm iNoo2 Cm4er6ekq6 fS3gl N2vzSajN73 /mbr7 3yu9LaE259 pK0Zb DMoWzPVsxW 4dbr2 0m6JLsCRb0 vH9se ck6sL2IZiT 6XO5f mbIYlG2M8m 7BLsk taGVzZXWVQ tbXqf LJV6TaKD89 7rWbt useQz0e0i+ zx2NN Pd8UMFfthk 2DvzX q/+c7Da9bF fZh9O wcoBmW97t/ N+rq5 SaOptOnDfu F+6YG ZQ69Txn8UM ZotZa 1wt0R14cJX wcvfe H/A7oUbw4+ nt5ce Aockhx5/m/ jt9cN Bm9hWzK40m Wf4XW 0HtaOkE+pc 3jnVl eKh1F5lAu1 aeLS3 a3Kj19dY3/ cf0z1 Vp8zuoVhSy omiE5 9O5p+cPpV1 6unp5 WDhfBc310o JPXOt H2yp0WjR5s PnfM+ j7ovhG3xg1 fyxC8 9Jva5rDvz0 5HCpc 8B+oOMH+x8 6Bh0G M4clc5bpZ1 3uGZ4 3fOKK+5XTV 72vnr yRiI3GhXkQ 4etR1 2/eSLghvcm 7+ehW +l0hv8Xpg7 xZcxd 9t+Se0r2K+ 5r3G3 40/aNx6nP4 Puo9O zQgfWZ3U0l xJz9l //R+vOgh+W HFhM5 L4dAzE3egi ScvP1 19nRsJ1vVR p8U/K /9c+8zk2Xe /ePwy ZKO1Hw3p8Z zTr5t fqL/Y/9LuZ e902P N8RijvZg5U vFF/c +At623/u5h 3EzO5 77HvKz+Yfu j5GPT b7xlHW24+A /eE8/ fGIO1zt6Ry ZWFtC jOhKZ5qskk xNSAw ZL7uafo8WJ 9Db2x vclNwYWNlL 0Rldm ljZUdyYXkv U3Vid EzzQZ2HiMP nZS9I ZWlnaHQgMj kvRml ytAOcH1HlC XRlRG Itu7VqT0L7 cGUvW T6sdxKgyV8 XaWR0 aCAxODIvQm l0c1B lckNvbXBvb mVudC W5X5tjkxr6 aCAyO D4+o4DcBTL tCnic 7cExAQAAAM Kg/ql nDB+gAAAAA AAeBv fpvz0LSU3c c3RyZ WFtCmVuZG9 iagox EiKtOR7ysc o8PC9 Hf6bvjfSxM WNlWy 5VM0MHZFNw ZCAxN DTtRHWfW9L 1YnR5 wLMpXH3sY7 UvSGV xC9w2TGC6R 0ZpbH Kgnq0MaYJ3 ZURlY 45vCT5MrGL lL1hP KllwR7TmID Vjb2R uVACajPT5U C9Db2 s2aH6oUCS3 Mi9Db 2kjwlIdRr0 QcmVk wIL4z1QzPJ UvQml 1d2MeqzBdo XBvbm KkhJL7Pk3p V2lkd XsjQIfwO3P NYXNr EAQ3YAKyCj 9MZW5 ooVqhBCN0U S9Jbn RlcnBvbGF0 ZSB0c oIsZ8XkyFB QZXJD g26pb33drq QgOD4 +x6YcGWTwG nja7Z mZJZFC4rgf 4iRzJ yL9ThwklhM lc8El jhPjxEhCjI ormtE 9RiQ6SK6CB gIioE LCiPU9mndH gDaC7 IuAArIZwyY BZVER UFFBQECURW CqupG o0WMG8M2+x 3fe0e Ihsx4G9pjT vf976 ky3z0jCCW/ K+cdn fUb5ADP8ZL XkxJX yh6+uf9dv1 8WkV4 LmR5SuR1h6 +Kjn/ 1fV6lwP5M2 DPzUL ++lNbB8vZ8 M3PTV rqNmQk9I+R pEXyx QUnJo7rUuu RKI/F 35SCPbP6UE s/tX3 cCsMHOE98j QoUUC LO8RZjQ9SH Li9/t dIUKeCJhMU 6SWVj OCpe3rps9a PhsOk fcHWtz27lM WW8TN N/yZXL5U68 eoQg8 h+0dQDKq1t C3NAn S02hGtz84p CvKwr 9bH0jqp5is pXtdr gPGwpJW1QF O7kZd 4QrpE1kowu df/qm 1q/2COEqVQ w9AJD T9Bkj+r2Xe QEUKe AngDmeQGRO eaI2H mnwAxXmEIm n8yU+ GmLQyxMJoM RICHEY+ /81GRPyXmV Mc6PB Xi3mYjLrdu 10uni c9EmFdr7+z l42tj 0CLCnOHQ+R C7nVZ P03+mg+zPc YckZU HooHABCVqa m6F1A Zk/wwgMGA6 zdX/9 jkPsRNh1JA EdrIQ tDnoZATmDX O/9sY NkJYWDsP8q vbX3H XdzcfBQCAL kS/2C Dc1p1y467u Qjjzf 7ZPj31dM+d Dg2Pu jMeDnqp5f1 BGgoJ ERPQMI48KY Kdro5 8bkcAq85Jl Rofrn DvMIzbVCmC UAZfr r7/2yXVGgx 5OKyA qLCJhGtuH/ Ieteb kiRSMeMGSJ 3a+tB gQxzPGHByN oIiBS Z4UOX7h0fU sxpCT CVst0+9SUR Of1/h ci/g6qUCMA +GFBj ISdxzEdmz9 lChAh 5CTPf6AdS+ silcT 5wa8AtpAF+ AUVwp JfdgrL/snz spiaA issr1o7t2R eLyJ8 7tkl3hKBLE SZawx E0NvGUaqXR PdBak W4hZ5Uzpvt k0Kcb bgvKLamWHx Ej8wi C1Q0c2CwA5 timmy/e 7GY5IG8mtm ITUus 2oYREpuPVi +7zTo WmYmSga6Rs 7zmvz WfNL+BJRc8 UsJFJ Rwjdg+99pt lIghl /FzCpeDR5X YMG4R u4YsVZRsho 5vvC/ Wwc4w6mrhy mbTw1 Ubqy5q6WSZ /QdLP BXyr2lpgcT tP3ZR YLRVr7zxkw EwYH6 1N9w/rqDrW VtvfC HHwjTRiGYL SOuEF qGhqWc1ONg Fp9wY G4PHFhnALA cPl7G bTG8RNdh52 McQmO iuoUT8dIYW diky9 LjFHK+IvPi s678J zoMmHa+2qe RLxdX yIBKYUPyVe ZypdT K+PlugtVa4 /lDSq iAI8Qmla8e TiTeG FyYaXwE3OW ZnYeI iISDw96Wcu CTONC r4pXEDYBh+ OThsz fIgrPaVNyn QcsEZ GYFeKcoBc6 9Vm9p Rt3ImgXJzY 5pE45 bWpy5+mR8u E4ASA 2uoL73I5Fg aeKTD FVsA2RRJHQ HcDST DBFdYwOjp6 Ri0aK /fAQUXIDrH ZJSJr 0KwMEz5j9D kOon8 jiuc8aV/Re 1wSAN dHszxIKwI2 vBrrx mRLvGLvjpm iMzbF gyqjPHLeBL XiSa+ iYrtaosm8E WYjBK F1ePqB6HkV 91PQQ Zv2lHJSuWg DzTdP a9sfiMKs1m 3b4RA b5HmnahEsl 6gRjv FmIN6aZFky 2qrfS iG3ZW8IAlR Od/Gv 8Vu7nCcn5k tvGUh 1VX+WOZrcV jB2Lw CkgkLrx7hD vDCHW JMetDvoOmG ohj+l jC5qMqWKVo lCRTd UQqW9Jo/FA 1qnI+ +EAyiUx+Nl +MTlS /JzWQXZnDh oJbKa Bmoc40BuHI nrgwz SQ2ESIUFiS Rmggp K/3hlA8PK/ JSSfw F3jMEjtaoG vw4AN Mab6MMY+Es +3zQA 1zDmcOVHpK HpqRg RG/7lERBBO bOGC+ XkJckwjCyO fIk6O /hckTzzPeN rX5xC v8jDJehlvJ pflIg q/iabqOfRq hV02b dGEWZpm06u BN8yB YI8mavTnFL GDrtQ YiHJh8cDuV pD1gh M5Y6dQVP4w etCzv DTvJ2flZ/s KqHex IiMJFfneEw xOjFz dHMU0HJ/ua b31N0 Y8u4/+VJHB UQqkm /CiT1VNzY2 rg3M5 J95PBKcVee cDR/a fke97QumQ3 fIQCG 1d8aZQ5ADc VVccX /gw6I266WZ QpNhw GrOD1oQ28C atNge RukbYWJ4Og p24/q Cf+2C8w6sv fAsHq hWSMvFw0Cr XAKRc My0DVKU+gz pfSNh N7xw++ne9Z lzB8s jGk31z0sUi vGZN8 kl91iFvI0p xDLK6 2wJ+3TRwJM lOv2i y6Z+6YPd4+ BR+cU XoCWIBuPof Ul6vw fsSH3HRsG+ 11mt3 J1aZoiV3QV 6FSJC OEPZOw20YE mH91/ 7e9QpitJNI MRjhZ 4vlxORbUdE iBjw9 LnW5h64dEg NTYks YXwjG5KtHk KRq7f xK1ZPYYTet 7SM2i lCfQKU70xB FEBxG ZXBcQ4pqVE uuRDR 5dGId9YvbS VSAs3 K/MW9PiOX+ SU1ku K/qS1UgxUE B41b6 DOiKT/ZHvJ KEZGV 8BzI3gRHGO ciC7l kC6ZNBcFwd 6SKvA j/s51n+y7u OJo6D SYQvgjE1ut EiKPP JTRSdFEQKv nqZ12 ulm2gTPWzE aNE7b v+XiEJf7Yl qjM0N tebvFc8SSX eQK7q gmpkTmT6Dc kJwBH VXDO2xtp82 L4dym iwtppOReFm mCen5 FZsPhIJhlz spf7a nNde5uDrp8 S1E2T Jicjnu8/iv S1dnu ybNMWw8dzv BZHNt olYNiFTzyA PMvW7 dvD+ERhPxq ZGJzg NcUDlpfR30 iNfgq Zphtt/HMNf NyIKx o0EZLcPe+2 to63Y FJTfNdoTjq QJWpo TCjtvd3RVh b8QIr bvd9qnj5ng g9FIe CJvt/5gjJz DnGHs jRWuNsdtgH lfAJG NRWSDbPF7v 3VnVH p9FT3AZVym CDEoJ D5zD1BvS1g wIjmj SFEqa7dGYW kFpXX yd/rarbsTl wvg/c KtIK1duUuo zZy/e 4C0fhu4zAs JmCIk UNJ62lStoc x1EWU KXvqqtLKqe y/lRW pBHaTT5pbj 1DPqo 2uTbQSouGK 1O9cL vqr1ygeECD SHQ9q IiOSPFhETq yi8qr C6qwLqHj/Y wlyYR bI1Ls4nv9B yVaRF 5owCkYePno hNac1 8jAOR8G7ut qgWqU jtfNYxYuPk nHIs5 4BObR1cBVC cRYgQ 2KMHydHW2Q ftHb2 peSoO8Yk2V fe80N AX5AW9xrj1 WNidz YY8c3qZSvM ub5Nd 3NgjEpBwBZ vAwEP DVK5q4/Xb9 2EaGS TZMJV2VZR6 hYi+R 0LJs9jL2aU c+uvw ktxjloWh8g uel9P ZzioJ2EqN4 joevz hiYyNzUalN jc0JH IIB19urnQk u4uBh m4BA7aNU1O yR/jz xWuUDnNEgs TyPJk 8/i2/W3ror ZchfW 0GbAi1Y1h2 qHMA9 AjFR8Doiq2 IiWuu k7/TiugiiU oWWeH bxTD8tc6Tt FNVYe SWSVQowFJU cCO7S EInGiGhJoQ cUaEj BLDYLlPVGj rBYjE rfuCcw54dN 5F6NH oAAkJ9HXLq V7qdy Is08I28zBN stkty uYfW8FZUD4 JDxZ5 KWMNj7JeA7 xt5jU CnhgyWeWNZ osh29 T8ht8Ze4V+ dsCZY +ZFUaXqXC/ AEJMw 7qs1Le77MA cQvIE yMASohFa1x tPoWE WzF9hqYSmJ u8s5d w8JFBra27t 7Zepl 07n/XLPU32 mdRBA bG8Uq4DRXB 2GEKk U+Zpa79QjX 6GIGX 1/K8dC4X4y qz3ug ddFk/GlbIa mYjo8 b+gyQyoQ8j nlOE0 jcTdbDdItB puDzj PFdhI2s97m p4HKF Xi0xOrhQDM Lfyxn w5/n7Xc3Y6 zvgiU jrWs8pS2ZL 5Urck trcTpzDxvU CKf+1 0oFcj8XN/R /cpLA pIznJycX4U bmsek vA6wBGGEqv xTVF2 sZ6SuQwC8M eLqA8 RlsINs2Jss Bisl/ 4bET1/tjcb 5N1pY qtTfeKkDt0 Arax4 n0ewE5WefT 2kX7U Ej9RsnPp7w nlMvC sDtELZn46D L8Eem HwqNlEYm1W no4UR bpMIh82Ft1 sVgt0 Jy72YgIfcr 9dOwW wnB2FURbeW sACQh bk5NfDFcZI GdcjI UEdRbKF6ud y12d3 ILM7si2kUR G6wTg WvUQTAo8T+ k25NI wcqRyLRiXS ivrCu debKBB3Cn6 Y1SvJ j2SeiCoCkI Nt2Ce aSezXDha84 kOYKM qUjDNypTvn OIbX3 fnM2oJsjAK +WAOv lkXAleuqFF 8DGNH Sj65PJ9gdP 2WDCo SRCtPb12mb BZaxP Wd/FubSMc9 clabh 9EVUkaZZ7R bsvNI 61wKbr/u9z C6w8s 2SkTP/fEuy 2oDfI 2XLeEC6Oi/ NWB7z wONKFz1nY3 eAMTC vu1dxlYvTR K4SMn eU31O3jcU+ abjps JzWD1VE/TK RQFx/ 2L/dwBUjHL 6vQF2 99npJQU9Fo 4iJNO XHEQ79OGz7 G80Ge OV7Yju0/2P a2tDS lWJ/xxlxpd dZX/z cWPGCbPW7j hn9BA cf2M1ieY2o VxUeL 7qH7t08LaO A0+V2 zncf754Vul sCyga 6/3m6DiFIZ 3yElJ kt1AfClkTX lob0h HR+9U0YN/B wP+v3 YGwVR3+DANIELLA Uy/zs 5lk3QtH7dC Hq83D I2yTMkGuWV fe0Py 4uwsFUHeMP pEFU1 oyFo7djUJj jriCc xMtLmigbqN Axsem WcvNKEv33L jx/vD NBig3SsLdg kQKTH L6tF1m5ecQ Bb5mI /MQmOAGc+m tTx5L uW6Xb4nmlX 6aauR tdwNTm98u/ P0ooC Ehr7E4PW75 70T/X Ys2NIjqU87 fZH1+ JpLee73glZ xtR1L nGpG4HKhcN 3ZRzk 638xNLxTg6 3CKPp Q2WvVmcyod x7N8/ sUBsS5pCVI n8eHz /Wz8cSx84n 3lo/B 0t0gHotOr2 r9nUO vln1/5X76N mbbFN MO1djGuk5d 1CWMg VORtKiSo1S Pa+yL FusQvs6UqA d+8B9 +zvHdMsGb3 RnXWq 6Du7lF+oWX 0NfiZ nrD+UVNf4d FTuhH ryjwlLveF9 K4Tve 7i8DGFNNf4 i1947 MQ0SMXuQ9R +/zNW iIlfvEdEra WtqW2 A+pb63PIAN lrzrs TvkKO55KKc K/3vA Vh0rPMHaQz IxOqe 3mrRv2A0/9 cQfD/ toTUk2eR8V YJyWX pMy0vbmbQI 2zidc hO4h2ht7fn ru1UP B36Ibtea8D pVVNj V8dqt9Ad1X aLjbe W096sg8YrF Xddyo gunICJwI8W GOnch sa3/6FpG3h +RR3/ mV4kRSbIlP geA6f shDIjaR6sP ZrNA/ 6tuPqz3bfQ Xk7YE MN15CrDWJj QgCym 5oMIkCymRL TvKb0 v+3iLwumfK gOedq KTswj4tvvC 7/D5b cBb2VAJ0fi 3RyZW HjMrIeWZ8u agoxN fXbFK6vlmh 8PC9H da38xIp4F1 MvVHJ hbnNwYXJlb mN5L0 dffPG0BY5E IGZhb QYoN9HAOTZ zIDAg Uj4+L0Nvbn RlbnR zWzIgMCBSI DE4ID AgUiAzIDAg Ul0vV YanQS6RYVr lL1Jl g811odJbyb w8L0N tjQ1oG8VlC 2U8PC 2PCRPddRf4 UkdCI DEzIDAgUj4 +L1By d7ARATXbEi 9QREY kF9DvaAIiS 0ltYW rmEmLdAD5l Z2VDI C9YvWLfSQd dL0Zv wrT2MY4PPH JvIDE 5MOMiTv3KO Wx2ID TxFOMlRu9Y aTAgM SAwIFIvSGV PYiAy MSAwIFI+Pi 9YT2J tOZN9JWmef W0zND M3QYzyMCBl MCBSL 3RnMzQxODU 5IDIy IDAgUj4+Pj 4vUGF lBL36KHMrZ DAgUi 9NZWRpYUJv eFswI DAgNjEyIDc 5Ml0+ PgplbmRvYm oKMTE gMCBvYmoKP DwvS2 yna3ruNfCy IFIgM jMgMCBSXS9 UeXBl F0PaL5WsO4 NvdW5 0IDIvUGFyZ W50ID rbFAAJLn6M ZW5kb 2JqCjIyIDA gb2Jq Ajm2T5yoe4 VwPDw mOg6EvtSxd 3Bhcm JoY6gqL3Jf L0lDQ 4Jxh3ZzNHL 0IDAg Ul0+Pi9TdW J0eXB hC9Jovc7cY mlsdG PjF7JsRLAx RGVjb 7ScI15kfZG peFsx IDAgMCAxID AgMF0 eRUzkWP1CF 2JqZW U3S7Lwon6R eXBlI DLeYkJxj1K yY2Vz PDwvUHJvY1 NldFs tRESEI9Wkv HQvSW 5fS1ZUP7id YWdlQ y0NtMXxLUr dL1hP YyvzP2I4DA 9pbTM 2PSa3CsWhA iAwIF I+Pj4+L0xl bmd0a HToVX7NTj7 4WzAg MCAxODIgMj ldPj5 wqWBaNE0Py JzTz8 w5DdV2IYCX cMkHA BRTAxUKZW5 kc3Ry ZWFtCmVuZG 9iago oVXHsSC0bs go8PC 3ZwRn2NWAg Rmxhd GVEZWNvZGU vTGVu T1FcLBK3BT U+PnN 9uvBsvLp4l NVcbW /bOBL+vr9C wOEOD rBh+CJKYvd TmqSt F+sdS8v1m6 vuB8V GJtKv1TWkE ru//o aUJVGyJYty DHQRt BFel7B6zZg nhmQs 6w+GjWYN5K OFZQv QWIn2bLcOh J41W1 0yjztOAW8k 28T69 w/y6+rLxGL YsVxu A9iAHso+ar 2dWhj h4t/62br6E LxNLP h0+gWNh02E gRizM SbWdPlpMBr /483F 21h75m7x73 76Q40 BT4xkt6VZd sG43c xJTofZiAG7 Jh7RV 7ltOx5SVD/ Rv57N xc33pmJoen tZg7Z HYos7Tq9so Y82z2 H4dYs3eAa3 bjexv 6yn5gFZX+H Gj/Ln dyZdJMr8UL 7C/bf giFX0Dg1l7 /+Ys7 x+HA9/yR8m jaw54 6dO/d0FTGA QLP0o WWVy0SOhIo fFxWw 6PGfATea8U CZ7Yd s00ZRSmgsA LIRS8 vlu3K16gpQ 8Zk6d HIBFahlE9H signv TesC5WRGHV G/fQG YhbV47wA02 R7D+9 nHjryU/Plg GUWGe 9//LXxHMCb 1sXbS T2P/ycAPmQ WCe0+ HDfVuQcWTk PIkXK 6cYxZtJBU6 KGx0F 05tIik50D/ 4Gc52 fSgNunb+HT wizt6 LyQJ6tm9bn R67yK UhcV0RxMJc 42ZIg Y49W3YL6mv lwPX5 /0pmXVql8L 8Icy/ XII7bbKLwf wjry9 C0Ow2uRxHi c3jZP YAA5vOYMSA yHYiY 3v006rnP9s NMjfB QW6qeqe5e9 N8HVN FwGzVPLLOQ UzvYV pdniFdHlDe P5w93 riB5MWHPou xkwAW NR4+sg26GK 8XQRp jmbeTLbLoM S2cyS tDYBrxq5mj nn8IW wRAgrfxNqQ 8L4i8 oqOD146rHi zj99W PCjZj0VoVm rZBPM KZAh05yyuc 92aVq 9Q/XgXE2I5 zKzwi ReP8ElnkhT heXgA VoR70p5mVQ bgs66 GCpgwJn1k8 Cc1CY GamcQya9ee /YQ7b zQ62TIjtHy izSzi gI/DSoLMTs k2ofA w5wYYYaW/s iP/ed AX+DbYOXnH q2/7x ikTn39b2++ yB9t5 g9xrMKYxm1 cHMEl Xte3hpdEs2 r5N4w WoMa4cp0SP PWTae 6bdMd6N4BI R7brY Ac2SxwJWmz xYTpb +SedByXY8W KpZgc K+oDer28Kw AcgDY qHquCXNiIA jS4pR HWJy9azJBW H4gNF woryp+xXlH 87+z+ iQaO9jldTF YMJOM W/5Bn4ajI8 GMhlr w9En3gtHHA QF2si JggdX4vrKt B4Dbm JZA25xdXcx L+Zi6 tV8VM8mffk ghwYC NkIK+LF44k S62pb XtX9FRjgsE qXmT6 ajTH3pznE7 vf6Sb q//gcVXKxA VDOQN lmJi+qiqrc OSar7 GXSpSOBj8Q sH3Pw 6urufFmjve tSCSB VDU7GldGxV kpp7E xrV3zpF0ib wcXhz Y0E7WW9wsZ ruajo 3Qm1FkDQIW ip5Hb eaIL8f1kH/ ifn4b vIrlNIEsma x5JNp LgcjAc3Qme jgRBm uVULaljnq8 +Djhe VBQs+x1pcw mEOGa qXCy5BeXLq e78bv HsajIkvey6 dutRU +nfvbRZlOR 2CBLh 32gVY9ywSn VMlBM 2GamRxRkEd O85Xh +/u+2jmRdT ftHAH XD6ZzUFjTi BTxKB 4z8XH3BJCd yhF/Z CCf9VLBM/1 AFIdk gLErIAnsPo tkfOd uU+er14jek 9P2QG S2eZfNqt8m o+0Sh AnGmPaiXcN mb5MW WKj9F6WeXk HowLp QZVRuSjUba VgD13 TVbMCFIKmw D0jai r/rpXMn+cy tigK8 fAJHg7i7Yl ZAGEs q8vA0vrF5v uu0Of P5byqtE9mL rFF1P OTNPpX7GGj xJ4kl ILy2nJMVKk ezzCC QSfrZFyAbg Z1Sju JrV1mTK1jG +E7tC 0DzD7RZsZo DkM4N QpZOcG+wTt hBBHs YEtGNdV4PT wyxhx Dek/DeYJ2w LBxdA z+hTA2E0jr TzJDN +6rd0nbK7l DD0UT egBcVE2FEY V88Ll XT30uktcH/ NvIJT BYn8lP3gPD ahCzE DR3i0+Po9v c8gT9 Iub5oYEJ6A slKwc dv+NrO5oXV aH2r9 JAV3YY78E7 ZLTJy wPsWTp6Lhp mWjV4 k1utswio64 yPcFO 1ZLUGpNr0V v2K0D 3314XOcpGF qYuO2 oyAUPlK646 py0Zy kIg06JausQ wWBfv xMbfyOUSRM RAWjM 0tRNiA/T4I 1z1TU s3CCLeh1g1 QqQHA c2uowne+zw MxriH 9z9y2pe1OM P00T8 YIcxabI7dg cdX+/ twp6ptnVeO A5/5+ wGN1Ijx45e qb5m9 eZay64giti yi2bC JCndeu7GU8 oq1yp u5rbTFoyfg dnjAj zuCGI3j4X1 0sJIO Y0CRLQdk2g oFOHs tvpWgQdpl6 noOdp RmaX0ald2h PkTcz 1UfWddjslW fjK22 IqcyfxPJSd +s5xL JMHDJdCYir kOe5t 0NVW9YyNVk v/Sfl VcVbiDLFWz YoJfL xKksnYMzG8 OtU9C tWsjAnpiOA OU69T 4Gc0UiQIAz bQA9S N8k/FzOAJY l8PQ2 HZ5e7YLsMR zzw0D ehqsqtx0C9 tfD8s dETR2YDvD3 b7W+c EdswhiLeWW QDohd 81vGvU2Bwd rd+46 SZg4uhIBtf 2ToEd 5Zql8xBhbJ 0ceXd oGtKuI3vxA chy2O 9jG0CH6c9L HRPSH RS8Bd1sSDc 1BBHp 5z3wfdSbP0 G6SSo lIZRLqiAEE Jpnnm EUxQBJTRAz cyiA/ u6+nmSjp3f FtUqw jJhTdaP86r ufq14 dagcCHstKz 49+P2 12KDuBVic1 5iAG8 EW6j7Bo2e3 XaQPk x55Id3qWvi /Xm3t VZ4LzkbgmL m2jfk bZtPAjZal3 f/pLI zNlHFFTsEF cJEg7 6QXV9ZCHeU 6Q6h4 FnTqEOtwd8 ++Rrg dnVv1rXq6b JFsZX u0F8VgvY2z hynUK egVDC5irQg KvUje JNR/lMedUG dq/1P 3pLT9TY3e3 0D067 oQQUCAZwSP sIkIa 8OYsp2zSNv FG1q0 tyyKSk16tW jpnns 5UeIgpjvmO HHXwu /RHke7DH/n hrM8X pyRJnp6L5P 5Xey6 HGhDKPLeix dHw/s y7eRBSpKha mh6Bw x4Bi2KJVjw YkVdV 5PV/z6tIsD 34LlR TNYO0/66Kp ICmXA hZlFew2/is aqQeg cLfrpqjSzN VjZI4 LOFyZ6L8X2 piUAe 4nUWRCZcD1 6qKOQ xRRjCpGDrF 35lqX B4Ai9W06o1 juWpe Prg8XUuuiR iEkov Y9tofeY2Tn rkrN3 L7KX79Lou+ Ft2mX l6F5e991XR 9q0fY 0PPg62OZhj Hin6Z BeMA8uVZXL p75dv z31t1RzoPt ZlFRS M9Yj2caGdX zOABe 2sCMwpWb61 ActNt F2M61E+flq OzTr/ KU/KysXp/m yTKM9 UPzYVHJll2 teeiv 89wYV5x6Ls yO7kP Ij2BBaWaWv 7k3vl jd5c41ukKL lcHVQ 02ea/eV2Kj Jkt+Q kKq270lkZb U6ekJ uEho9i9V++ jXuHX MVTMl4DTL4 taWqL n1TS00Td54 4K+5f QJAZO9p92v UJ/4I 6KZWjXhalu 2Q9pm Em9CEjGFKG wni2h uFh/Fx2af4 Mg81u eeLaMY6EaQ heKNr 9a6ni1Kxu8 m0SpX q/aD7sE8DW m2DpX MznTHY93dT DXpXl ZrFO/I2cl9 aP8nt aYa0oHWPg6 SjDFj BbcbdFMpsk 5YhMh C0YVxgsPMX ygMQy Sv6UnPJueN m8e4a EkOOZ2fV3r 6xLa5 SADVtDPr3h lShK1 ZuUThdA0UV vAZrH w46DpKhSPf qpyUH D4UrparRPW H1EYt LxM/RGVfKD khCTW zKsZZNKXpF 1TLoZ cth2JDr1uK nADDo rw3BgTKAEg dwTd/ rSNtpYDJ/j 8Es48 8g16HyxCHy TSa8e 10menJeGDR kqL6v I/GwRVb5F5 dBxbx X+vrjWW9Zk l46ZR CqiKf+9Hk/ yD26S j/lLVaPFfp o04ZG L3t2S7D1pV QqwDp SYllD8jWkL sRLKa 90DuJthr8u ZxlD3 t3RpXGgMZ0 VfsIR 9n7Cq7sisJ cmT/5 e/WA8LpqSe SotJH DwrGrsgGJv MkEiI 2jU86yguvr GYpgR c0+UyOHRZP Y7USQ fe3oi5h3Gc LOCx4 2+KdsI1GRd 1cvpQ nhRhK8a+9C Gy9fH 6yCUZuev0U /lV2i FW4iIOtshJ 8lrr1 mivjmJieLq NeH1P y253s79z2a XmwXk rkztDXe3qx bmGBy rrNF/tQOUe 4aYDl QCCgaXTffu uSvn1 OqOQ43Fs6d 5kOjK yOOLaiBglW +LQPm f+Iizt3gTj Du4Xs PNyuzqEUT/ lL4rT e4GxBa2CFW upsm2 allXFYVpFL tEKot 0fdVk/QT2T 5ZXa/ XbIXwrqHMh Ds2S5 ikJfayHofF umGsp M0ZRWhWvL5 5I2V3 iYzkhX4Sir zKCZU Kh8S79d4QM XdW0m 3MMkIM2hEH Q26b7 pXSVstOmdF eGZGU gnHAfpNjLY f1TcH bVq3W/bE2b 3vCdV ZnwOTw5Oo/ pYXHK tl+mArsCJq 3/z6E vkXi1MJ+qU 3+tlj JpU78eFdzI NF64E fGBwwaRK+P UShv4 nUToZKkBjg TXEen o3eHQr4cxF dVgUC Tz5c8vSqXR rApd3 Na8QAfKOWN 5HbIJ 5G2GW41bsn 3t/Wy HAugQd14XK kjjYy 7z6JqhyAGC Yl3lD Anll6P1/5f /Z9FE KFdTjVEW6c mVhbQ plbmRvYmoK MjEgM CBvYmoKPDw vTmFt DD6WDF7aZ3 N1YnR 5cGUvVHlwZ TEvVH olIJ2Zb291 L0Jhc 2GCl420T1x lbHZl kXxsNR1YGu xpcXV rA5MeU73ao W5nL1 jyrvUcn7hI bmNvZ GluZz4+CmV uZG9i agoxOSAwIG 9iago 1FN5PQN9cY 0hlQm 2sY1ZrlIxy ZS9Ue ZDlPY7TxUP lL0Zv bnQvQmFzZU ZvbnQ rKRAefiY0e WNhLU KyfIFaCQ8o b2Rpb vexM1zjGW9 zaUVu Z79dlA3iOa 4KZW5 rh7RbVfFcL DAgb2 WgPxw2N01e bWUvS TWarb8RnLO 0eXBl T0J4wTJcM8 R5cGU nAi0qwR4YG XNlRm 5miP7JWKi9 ZXRpY 1VoPG9wd3S pbmcv F7cgVA8xdB VuY29 zgF6hHe8IZ W5kb2 SwFdB7VGVw b2JqC po3E6TjdI3 yU3Bh P7FxWRD1lV NlR3J bhP8DbHH6w XBlL0 qdDEoqP6rl aWdod UJoTG4RcVr 0ZXIv RmxhdGVEZW NvZGU dJEqjNO0YD 2JqZW Z1M1eaZJEa IDE4M v9EfNLdMWI yQ29t eQ1zEB79ZS gvTGV aK9EdQFH3Z j5zdH EfPV9BuHaa wTEBA AAAwqD+qWc MH6AA MKQGWB3U+2 OKjwp lbmRzdHJlY W0KZW 0wi7TwFeM6 IDAgb 8BgVdh9O4C vbG9y P0ZsF8MlE2 lDQ0J ev3EgEXY1N DAgUl 1oF2BboJwm ZS9Jb LCsDT8NNZm naHQg MjkvRmlsdG VyL0Z sYXRlRGVjb 2RlL1 O9bHPmSH3g amVjd Y6JGMQtKID QYXJt nfr2I0AkeJ VtbnM kMMdpI2Rbh G9ycy VkW0BbEUKk Y3Rvc uExTU0IwWF zUGVy B35dcR0xVG 50IDg +Sy5RjGR4v CAxOD TlF93uy3ya MjQgM QHZM5gleqf 0aCA0 MYH7R3ngiD VycG9 sYXRlIHRyd WUvQm r3g2UhixLj bXBvb pYodWQ9Mz9 zdHJl IC6PcGrvcw lUVEf Wx2/iJHMm0 bhGWR qatWVzwSWO E+PES NVGgfox5Wl aYjQR jQIaAiKgQN N00/v CqoCANoLsi 4ACsh nDJgFlURFQ UUFAQ MEEDBv2aiR phkbR X06Sq70P5+ t671X d+tW9/3vrC T1vzN MJW3i7o4ze F7s5N LVYxeTElfK Hr65/ 12/XxaRXhC ZXxGd Q6Xk7eAj/y wHa6w L0TYM/NQv7 7Ad8L vRJ7yk1ZPc ZV0/P n54DrDfSLX x9DLe KcTeEle1Cu Q9VNw nYcSz+1few W5hYY rjjJChRQIs DRNao zl7syJ2+10 hQp4I mExTpJZWNY 96/hq bHqw+Gw6Sj MM15z muFTKdyD74 94EMH DYYV1qRJjX 7jEck mdMPVv4LeL np8fK sM2YV9rJz3 BjZqb Rlbwou31lB sqDNB vr3n2sXg4p GppTd rGl51/+qbW r/YI4 KyBFI8QiMI 0GSP6 pFg5HDSl0J eAOZ5 DUU54txTcx fADFe LSzfwmTC0x YtDLE rdakC1WF6/ zUZE/ PoHGsml3UB Ht5Oc PXkqGV5mMi Vm8a2 5o3NYzw3NH IsKc4 sT2JFsvFt/ Tf6aD 5I8wzpKzJc igcAE JWpqboXUBm T/DCA hULhU6a/3N wWIoW yvECO7mpB0 OehkB OYNc7/2xgC Y5QEq 1IgQ2tusvh 3Nx8F AIAuRL/YJd zqnyr rXVpCOPN/Y ImLvm 8z06VXU+6Q O02zJ 9tMSXlUgz8 FY8df bi4zw0vzoW OmIuP rlixGh+ucO 8wjNt UKYJQBl+uv v/bJd KaHPs7eJGh sImEa 57z5v392lU JFIx4 rGCnog31MZ DHM8Y qMZ1xeJWAh tBQbu f3E+zGkJMJ Wy3T7 1JRE5/X+Fy L93Sk lr1i6TUWSi J3HMR 1yX0YMOMGs METHc PeN1uLYlQm NzRmy 40Q5JHGNku 92Csv +yfOymJoCK O+rnL ef1O7aQrhk qjPaE gQYVJlrDFH sl4xO +1jO90ZtFs rInUH KBqWTQpxtu C8otq ZYfESPzCJj hjqXo OXEl3xC48y k/kdP Glz5dOV2yr hhESm 20BT2jITqw gOhGW HUiLvOa/NZ 80v4E lFzxSwkUlH CN2D7 88f0QnADP4 +5iSZ cTlFgwbhF3 YPI48 Citvm+8L9S Cnib1 19rGZtPDUT CLDeP dQTV5H7u5Q eyT2r K9o+0/dlFg wIaPb GDCYTBgfrU 33D+u pBbSQ938Mh fCNNG TJmiK30HG1 GyxGX r3iyQx9HuM RNZaR 8IE5w+Xsa9 VPhBd 1Ha0wsRI6W Zs4jm 6aZM2OZY6t MUcr4 i8+KzrvwnO gyYdr 3mv3UdR5gX gEphQ /JU5tSw0Sc 4+W6C 1Vrj+UNKqA wno/O JnmRFXI3Yh cvNOM 7M5Ibcj5kU QZGD3 l42RIS60Bh ekQE5 LKI05QFpJ6 iCs9p B5OvHeaTeI gV4py sSnv2Om3sX Dtiuo c+BjmkTjlt anLn6 ULz2UnLQLx V0bbt pHQ7i6uWBU Z5jpl cMG6voAOTT EV1jA 4FnwOPQcd9 8BBRc gOsdklImvp OZdB3 S3fMT3bwuk /KXyZ A0N6QAMW67 ezPEg vZle2LcbPG Eu8Yu +OmaIzNsWD KqM8c h7WmsPWw9l yl62J 2TgxZiMEpj uBDMH dddv0E6EB+ Xegtl bA+PBEN808 aDCAB LHyTdvhECj wS6tq hV38qZOF5Y 8EHWx HdK0cnk8UD rQ8Pw oQGs590y/h OPqgC 6mg910DZMV Vf5Y5 mtxWMHYvAt /CIDJ zmg+8MIdYk x60O+ p4ElgQT3Ey D3Ml0 ZmJoLVZQ4K V1Lcr K0CFDmmu13 QDKJT E78B6hKXF1 nNZBd mcOGglspoi XJ3jx hoBGeuDDNU nY0hU hGhBGaCCkr /3Kof 1Qw3rTK/Az SYoOB 6+0G/DgA1C mjxlF k5Ao1zKAPI MOZw5 UekoempGBE b/uUR PQP2h2WZ5s QlyTC FIY05dMi4+ FyRPP U419lanERO uE4+l +Wlal+UiCr +Jpuo 59GqFXTZuI IgwyV /uijL4vGDx bSCW8 aFoDOPj7Yf ccujx 25wQrNJPH4 tjZsF VKgO41NZ7p Z1neT Ef+kccn9Ej IwkV+ b2GYE7PTI6 UNPkV P+1vmiT8Kj y7j/5 UkcFRCqSb8 S1ftI CYTuuDczk7 XZNFl 9UuUyFF1jC +vbk6 eQ/j5uZVid LbMEr QUSNVVxxf+ ivlXf jGWhFr6OED pMras odEDy38G9w C+VEZ LtDCnbj+oJ /7hT2 OTx51JqvlC xECst rxDJcApFxi /hg4A Y2COp7Q4E9 vHD76 b95gEEAsgO d/margarita uWdI3Ih2ta rrRo+ IHt/EMsrrb An7dN HAkyU6/aLL pn7pg 92y3PG3cDn gJYgG 4+h9SXq/Ce 4o3pM 7HD1JUt7qQ R1SW8 7dcvoVIkJk llVJ3 wjMDKg2K/t zciGC chlcxGOFni +XE5F nE6GMZGA8R oT2Xf tWVO5XwJdH qu83g ipTApGrt+4 DgYZM tHJ/tIzaJt bFYND 3wZ9FKWNYC dJsPS 6CRR52FXCc sIOHU 13g2KESadz 9kXhe Vlw6BUVV9z +tbZN tpFgHjVvoM 6IpP9 xw3vdIkKS2 ihHZ4 ZgkFyILuWI vwhFe svkNvFs8ZQ +znWf 3Of12usxGQ o+a20 CbNiAHh81i NFJ0U RAq+epnXZ2 OvulA HhOVq0Wsk/ 4LMwm kph5uLfL4M G9oan 4YIO3Aqmxy CnFSg DoxyQnAEcB BdDrC k3mezp5NmC C2mk5 J4ZvLK4uzM mw+Eg mGXOyl/tqI qKz2w 9qTxLUTZMm JyOe7 z+G7TE4f7M 8xciL B7LYCda58x Vg2IV KHVO9z8zk1 8P4RG E/GpkYnOA5 81PJ9 wTjWI1+Cpm mG238 si604LklIg thkGt IE2b2jlssT lN812 hOOpAlamgx htt63 gdiNvxAitr Krq2O FiUqF7Ee8J m+3/m CMnMOcYeyN Fa42x 90EqW9WaU9 ow9fF RjiXdWdUdv YMzwd MV9XYOVxtN mhTki 9XvDAiOaNF RGejy IsQmQWldfJ 3+tqt uxOXC+D9w9 9Ynam pa+dTeT47l blq+7 x6eRlOKdRX YLbnJ CO+vHURZQp e+qq0 sqp7L+VFbE ReRIv jG17UM+qja 5NtBK i5XzS80mqp u3qF5 n7UYOxZ5bp I5I8W EROrKLyqtD ieYfJ Ho3vVWQvYZ XVKbe OjwXJVpEXm jAKRh 4+kfQ5fsA7 5RJLl nXKCqBapSO 181jF i4+Scciznk Yqczx wkUBxFiBDo EsWuI Yj0l+0dvbO xFtHh uStg25eS0c DcpLj ZC0TR6E3DF Hd3tw 7yhw6az48t 2CMSk UBVz0SJH6Z Urmrj 4bp4HCvPUe UMkfR X86qHdE8HJ cuPSF aJH2d71/C2 OyS+J TMqH70Y84S rLMPx atbmOh6/OG JjI3N EjT5GkAnzO Ar3uK POYG3p2PRo lADd1 NLxHJH+PPF a5QOc 1XLnTH4qFo +Lb9b isycrlK6of OFVrc AumLpelJ6Q 9dPo5 +sL1zBf04F v9OK6 AHCWuZH8be QtbzO fNMeS5Em1E ZJVCj GItJzC0dRH icaIa EmhBxRoSME sNguU 9UaOsFiMSO mwSe/ 4H3MvWo9nb ErBjo DzFQPgv1GH z3Qrj dKAvb2S7SM 55nsJ QYbskPFnlZ QtmPo ZmnRJ2mNFR eGDJZ 7T7rleVl6w R+zll 3pb51oNgf7 kVRpe doU5VPgtKc 1zReP k7kPnL9iOT 0ILHE 6LqK0+hYQC orul9 ctB75hqs6O xA1Gi 9ygaby2nWJ uf9cs 9SayQ2YQV3 TsyHw dH6cECQhJA 4t7Pf ozADoYgZfX 8bTFX ZRPajUr6A8 0WT8a VshqZiOjxv 7GIlt 1kV5rQ7OHS xN1sN 0n4Yu2HRPi N6dfy 33iCngcoUG vqJem 88Mct/LGfD n+Hk6 TsPXO+CJSd 8WrR4 y2PNtUzrU1 txOnM PG9QIp/7XW ZhprU Iy7X3deaIO bK0iW pNayhmb7Xz /p0sd RN/LFNUXaU jstoy Zoha5tlCs4 l00Gb e3lxAIrY/h sRPX+ 3Wnit6Ximq 1N94q QC5GNsiFb1 2zIDx hx8/aRftQe TguiF BksHqMh3Dm KAstC UkvjwvX2Qa HEGYJ KnwiejhRGZ tg+TX kN/ncGT4JE LvYyQ CbWB706BmL MfU4g rCpSwAJCHF /Zmw1 DzJlM0pEaG +xik9 Pah/LXZ3dc I7h2r qMBAbrBOAy IAZlC ggG3Hjz5cI ypHIt GJdKK+sK6t q8I8r PfwymIK1mJ QyvFm ZOgg14UF3o Su88G g0d8L9vjtn SMM3K lO+k8zhuwZ 032k1 q4FA0EK4+W RcCV6 0iMObDM1zE Lntgn emkDZYMKgM 8SsvH OCz3ZgpL5G 38W5t Hsl8yIbxOj owx3E RxDwtx22tx XApuv +73MLrDyzZ KRM/9 4P1EshL1iy kqplT RqT91GMrQE BMwR/ rtTl9BlHXm rmCdx E5T6xzXwkB fvRH1 3OL6mdCzxx 4gjZN c8VwHGRO/Y v93AF XTmqx7QEqe uhsEF cflGoWg55s 44n3g KIePcpHQ0e zkuKz b/L4sd5KYG Yn/HG FIe49jm/OY xcVjI 4YVTFu8OTQ 7xXiS DUzQVIT0xn tbSzz OK8iAH7IgN 52HnT oeDKwLKBrr /e3ZK O8UAdELZpg ThWQ3 XG80KnaLMt H71TR g38HA/6/dg bBVHf 4hFVTL/Oze +/oXJ jugserzcML TJEOk 6aju35N/Li 7CwVQ d4w+kQVTXG EBvW6 AZPGOuIJzE y0uaK Esq7FHo8GE p8BEJ /joqPH+8M5 OvPZC sl0MYIqJiC 3ITe7 i5cBUbxRr3 xCY4A Ow8c9CBbiA 30CTh t+kuvwd4DS 2NE17 XSD8/SigJG eXc7o SGkeqBG6gb zlI+m RN0h9mqI1R JbOvz S+6lB5ALq8 DJTcp GptbdlHOTT f2QQy BCnXcIo+lP 0aciB 26l/Hs3z+F gKY7a rAKrhk4yP6 mbWlV /BeYsIt6Oz zxsvO 2TR4r2fX1+ WfX/l bws9VhjF4W TiiVe O/SXUJYyAZ lN1jA S9di3a5Okk +xTNz rwWE83aX45 O8d0y wZvdGddaro O7uUX 6hZfQ1+Taqueria sP5RU 1/t1PE9Zvx KPCUu 65W8zmL78v 3xhNg KOHoYC2hjQ joBVT Fjpj7/M1aI iV+8R 6Kumd0zeRQ 5vLz0 lNU+WvOuw5 qcRTf xAl4r/e8AC PlpUl KIUAcW7x2C 6s23U 3z/1xB8P/O 0IKLq orgxgnJZeQ +rqal 6gTbkRA2dV 31zel /qZam1PA6/ bY+yO 2/kxpLK4SS 1uR7Y VMGsomCr5R XzTB/ QGnFb78Tx7 CEpUn EEmbW1soXn rf/oW ykiH3LTb/A jm04H GgrjK0Yj+q ccai9 fzOOno3A/W WkVxz pR2SzFpxP0 H31SY zgF1OTGMis gwiQL DTPrW5qyO/ 7eIvC 4F0gJ223ua Oitrm t+yvl8UerQ G3Qpl bmRzdHJlYW 0KZW5 lj2ErRqYoD DAgb2 YuPve3G7gy b3VwP ZdaEi8UdcA uc3Bh bgKlA0ujEN B0cnV hE7hkCjQhb 2UvQ1 MgMTMgMCBS Pj4vQ 29udGVudHN bNCAw IFIgMjYgMC BSIDU bAIVQCU1Zr XBlL1 BoP6IfYjTl b3VyY 4LkIPxoX94 sb3JT wSCpIFs4Q9 RlZmF 1tBXXL1AiO TMgMC MFHg7gLMRf Y1Nld UOfL0RPNhK vVGV4 wVCyBS6cY9 VCIC9 JbWFnZUMgL 0ltYW ciTZ6gEk7r dDw8L 2buWv9bNWt gMCBS Q7bifECeQm AgMCB WV3kzY8OpN jEgMC YUX5eiUNLz IDAgU j4+H0qJUfs lY3Q8 BY72HxO2WP g2MiA yNyAwIFIva W0zND G9FaEiQzQf MCBSP j4+Oy6UWQC lbnQg MTEgMCBSL0 1lZGl gYt33ByOiY CA2MT IgNzkyXT4+ CmVuZ U6snueqEcH wIG9i fyp4TG3Cnq 91cDw 4W8EbEZBxa nNwYX FisfL2C8II Wy9JQ 0NCYXNlZCA xNCAw AMAaQc7aO2 VidHl xFK0Is7ZcD 0ZpbH Jsye8XzQN3 ZURlY 23sZH4GVBY yaXhb MSAwIDAgMS AwIDB yA8C8wMPhJ E9iam JvkZ6Ed2Na VHlwZ QDyD8Lag47 1cmNl zep2L3Xnb1 NTZXR fM7COGo8HG Xh0L0 kjTZfgZs1U bWFnZ QMjLQ6zH6N JXS9Y T1GfJJD7NG wvaW0 sHDW8PtIgR jUgMC BSPj4+Pi9M ZW5nd GggMjAvQkJ veFsw IDAgMTgyID I5XT4 +n6HrUYXfS nic08 /MNTYxtDAz UHDJB wAUPAMPCmV uZHN0 cmVhbQplbm RvYmo KMjYgMCBvY moKPD wvRmlsdGVy L0ZsY QQmEBOog8N lL0xl mwk7cMLkXg Q4Pj5 xnIQnEC3Ra JzdWW 1v2zYQ/t5f QWDAY AOzzBdRIlv sQxJn y6z2NO3eQ6 sUgyK yolS5TCvpZ Pn1O8 oWJduRGskt hi1GY yQJ2M9r6bL 3ZBC6 T4JVxOXJLb KlxZF LHYvbUgqB/ Kifzp hNhEPRIEHv XunHs 4cJYthBLrc tShgm JK3PepEOUA x+lzP Rv6RnZAL5i y9GDq OetBizMSZo En3qj MY/ve5+RpM /XiF0 Eic8s1TSr+ XfRQ/ djpV7HkStq 2yLgb oqHeFXRPCe DtciI lv/xPeTdZx 2UY+6 HoMvUBu7TT WC2ba e8Dc1jhVLw Kvhep 3GXpRzuUhW iyD1w uw3idNHZsx NeYz2 l7IF2Xn7Mp m8/CV KnPK2Rn1VG zeVqj njx1L/rQsE OiryQ pIHY0X5nEx dFxs2 aRKrUAWzuS HbRTb ppO6wpcjXG DIzH4 NhcHVa9+ax 5qsTY nFSDtQ+FX0 iuai2 VFIQx2Nkfi sEi4H vhRHj6vZFB O3j48 ojgn18D0bY hOflh /wLUZ5fq8P pR6l/ l8AH2GWL65 R4dVm XZBydOY/Sx Qy9RH QXqVfPeO4F tH+zX h0v0YFRbw4 UAVzL X+Wo8glhYY xkfq7 pixxeh9uje fsE9y mmuDqSoCYd qWQwv Dm7OBn/fl5 NhVP6 i0bqQlmfUo SlgrF amOjI/T9W9 2u1Ms PhoJogVHUw 4zEAH IdiJjmrrbf HKLjW 9LdaKRF6us mngZe q/gECVOE0O YQco9 rzD7vkusse rxnPB +zVJX1NDBQ 5TnXD XFgcvd0Xxr HR04o u36KEs7qb/ jpSRW boT4NyXrLz NP4ST OGBoOgQFl4 alESC +TsJVGZ1bf LtJM7 vPswD3+SVQ u9ima XQL8v3PA/V Mh9sy 1C1Y4CwNI4 F06Ky gpPyQehlWe Ohixz csUxoftktH snarL Y9avJpwCTg VZBKF IQbMki7aGW tLNrW CUvlBwttRl NmFqH gJvxORu6a5 C6UFx apelhr/ZEX ezNVd rKZYpf1nU5 Pe+bq tiNsftvNhz Zzewy v2CfEJu0lz kukdL fW2AY/1fwr JKBHF mT0zBTVKcw LXd1t RXMBSrhluw LDbA8 0EWeTYoOVP /eWM2 Crk5VKBauW II8He Nm5vYXOcDP mYRd4 z0SSbKG7Qn 0qJYo MJcm5eP+oJ VGYjz ZjYr364l+I 5rD0A /oTxRACjvk d/w5f AD9ElZtvpp eERbI OWGz3vX38c Bdi5M zdAoJrqIVM Cilcg zksT+bQMpk cdiVO bhPLAUGoRj hb3Ay OTRm9I9LT4 hmwLz Mg2v2ikuNN eYdLS rL5ywjY/f+ sgY0H sf6NaxRJAO sfajb 3INRkk5DEU OZSkB e/RaVZnm3q plrif lNzbOzq+Ms +2tXc mvaWFGx1G4 RIuVu JYmfNvbcVd ufVeQ 5aycDPctIq L6Z7m bKChNuUtk4 RAFHa 8hSwpd0536 9Ie2/ NA/oq6xsn8 XbhHe QUbtN9zDUA UrRc+ EC+vLawMBE 69Fuu zC7pShaKUu HG2i7 pPHAmbcw2J 6hbDr VbaKaghOlZ KKLBV 6Tp3RQbTT9 EsJk5 PRAv633UF5 av90w BpvlFNMuvk v2mJv XusvYkVOkt tfEzI r+aFnFHBmq 46R6u p7A4ghXvfg zci/m mhPw79lrKT Yhsag I/TO68p+J0 qehuG xjgGZkXWOC Q9elw 0KP3SGfJTW yuIan zMK2lvEdu2 iprP/ /68BTEShPh 7YjUu /OgI6SreL2 ctayi YTW9zMuMMz 8KYs3 XaA8VdsVKh N1ZE1 jZb3Fj3J3z TnQLb 59OaVU9jSK ctjiV HfLRuWR76B O3ACc KZ9diLOW1X RS+u7 hpQpvjltln sdX8l PklWQXxQaj VsPe9 qFgajf6n44 UtPA9 ro41imHDz5 pzrZf Lk+Rq5U/JZ DbDGo Rixu3mqPzv WxcYK Fkn5AmynKZ MiWia W25q0WUmFG I32ts duyzTwMYnV LDPC1 hTF+/AiR5T eCFbr BNbgnWjmBF twS0J Cj6ApuM9AR vXNi9 uuK9bk138A 9Yl81 kO2rADtTIr WpUOE i/wbX3TkdZ Hw6by X98Ghi5zRS J7EgT ZwKb9rnfrL 17YZF PsqI6zzbd5 oxObf ns3MQv/PZn F0y1O OrRvjzd62K rFdSG NSHxxVHdNd 3dUkk fNQ+ekyiWF jEULe 1lSYOtM2XF rc5Ov W75GrXAodY bFmMP 4c3FDFRXhg uwmiG KRABtw8kQ5 PyxIb XgplbmRzdH JlYW0 CCY7jp1BsA jEwID Oak8OxFrt4 Pj4KZ U9ac6YpRjm gMCBv YmoKPDwvRG VzdHM gMjggMCBSP j4KZW 8em4TrRoE6 IDAgb 1GnLya9D1Q bMTcg MZGJB8mICw AzNiA 2MTAgbnVsb F0+Pg plbmRvYmoK MzAgM CBvYmoKPDw vRFsx NyAwIFIvWF laIDM 2IDYxMCBud WxsXT 4+QqUoOP6c agozM PXcGZ3pvux 8PC9E ZdQ2NGJgLj 9YWVo gMzYgNjEwI G51bG bcTw7XVN5n b2JqC wMbBPQjx7G qCjw8 P7AcKXgqWL BSL1h CJvBsVpS8Z TAgbn VsbF0+Pgpl bmRvY moKMzMgMCB vYmoK PDwvRFsxNy AwIFI cUMnuJRR0F DUyNC BudWxsXT4+ CmVuZ E2eoeahYYG wIG9i ebt8HL9USo E3IDA eJf4NOWjaE zYgMT h5KV80kKgy Pj4KZ J0yw3IpEeQ 1IDAg i9UaJnu5C0 RbMTc dWWMYW0mQR iAzNi AzMjkgbnVs bF0+P gplbmRvYmo KMzYg MCBvYmoKPD wvRFs xNyAwIFIvW FlaID O5EPH1MPRc dWxsX T4+CmVuZG9 iagoz NmKfOE8tig o8PC9 BYnM1NUIuQ i9YWV ogMzYgMzQ2 IG51b OcoRw9CDB7 kb2Jq TpN7LZMqt3 JqCjw 0V6DbRQxhA CBSL1 hZWiAzNiAz NTggb nVsbF0+Pgp lbmRv YmoKMzkgMC BvYmo KPDwvRFsxN yAwIF IvWFlaIDM2 IDYwN yBudWxsXT4 +CmVu WF7nucu8RM AwIG9 lyit6VN5GP zIzID QcCa2HMEqf MzYgN fj2EM44nZr dPj4K FO1ix5NuPf QxIDA rg6GoFbl4X 0RbMT qfQBQKH2bI WiAzN iAzNTggbnV sbF0+ PgplbmRvYm oKNDI gMCBvYmoKP DwvRF syMyAwIFIv WFlaI EH5CTHcBFY udWxs XT4+CmVuZG 9iago 8XkVbAU2os go8PC 8JHeF5TKBj Ui9YW VogMzYgNTc 5IG51 vTstFm5HIY 5kb2J pGvP8QDEac 2JqCj a7H2CiVdUm MCBSL 1hZWiAzNiA 1MTQg bnVsbF0+Pg plbmR vYmoKNDUgM CBvYm oKPDwvRFsx NyAwI FIvWFlaIDQ zIDI5 MSBudWxsXT 4+CmV tIV0rnpj7V iAwIG 1ajli4LZ6G WzE3I LQmKi4LTMk gMzYg RfN7SW11lK xdPj4 CTE5bi0GuX jQ3ID Xpn8DiNky5 L0RbM MbsUTJMM8n ZWiAz VtT2MRGuon VsbF0 +PgplbmRvY moKND ggMCBvYmoK PDwvR FsxNyAwIFI vWFla THAeNPK6LC BudWx sXT4+CmVuZ G9iag u4MTGiUI7h ago8P W5AAuL6EWF gUi9Y WVogMzYgMz U4IG5 7yXfsCo6JC W5kb2 JqCjUwIDAg b2JqC ky0B6UfWRs gMCBS P0rAPbYfNy AzMjk gbnVsbF0+P gplbm RvYmoKNTEg MCBvY moKPDwvRFs xNyAw IFIvWFlaID M2IDM 1OCBudWxsX T4+Cm MlEM9wzmj7 MiAwI A6sgsg5UA7 EWzE3 CRInHx1GKJ ogMzY mKhP9QU34q GxdPj 8UHC5en7Pa CjUzI MLgx2RgLzy 8L0Rb MTcgMCBSL1 hZWiA iMiY8ZRRjj nVsbF 0+PgplbmRv YmoKN TQgMCBvYmo KPDwv RFsxNyAwIF IvWFl nEFN4KEG6Q CBudW xsXT4+CmVu ZG9ia vi8JYXuLG1 iago8 OV7SVdP8KJ AgUi9 YWVogMzYgN TEwIG 59gCxmTi6C ZW5kb 7QtFoJ1LAD gb2Jq Kpp9T2PgJM cgMCB DL0mREdCvC iA2MT AgbnVsbF0+ Pgplb mRvYmoKNTc gMCBv YmoKPDwvRF syMyA wIFIvWFlaI DM2ID UzNSBudWxs XT4+C nAtOP7rezh 1OCAw KO7yxdq2LD 9EWzE 1LDZuCa2UF VogMz NtTsAzJJ11 bGxdP p7WCB1fj8U qCjU5 CPFgb4ArSm w8L0R bMTcgMCBSL 1hZWi Y8MrW0UcAc bnVsb F0+PgplbmR vYmoK NjAgMCBvYm oKPDw vRFsxNyAwI FIvWF asXIF3ITF7 NiBud WxsXT4+CmV uZG9i nxh7GRIdDC 9iago 1JA9WBbX3M DAgUi 9YWVogMzYg Mzg1I V64dIctDc1 KZW5k m6OjDsYcXK Agb2J rCrg8E6BcL TcgMC JXY2gWOmHh NiAzN TggbnVsbF0 +Pgpl bmRvYmoKNj MgMCB vYmoKPDwvR FsyMy AwIFIvWFla IDM2I DUxNCBudWx sXT4+ SnRnMU8gis o2NCA eOP5gvis4U C9EWz T4JHWvHh0Q WVogM eKnAUT1II5 1bGxd Mg6BIG5ao7 JqCjY 6UBOuc5ZbD jw8L0 RbMjMgMCBS L1hZW kTnDkE8AjT gbnVs bF0+Pgplbm RvYmo KNjYgMCBvY moKPD wvRFsxNyAw IFIvW GrkZDM3UXV yNCBu dWxsXT4+Cm VuZG9 puot6PxQkZ G9iag r6LB4XMcT3 IDAgU s2OQKqrFbX gNTUy NF70sIhlQc 4KZW5 wy0FwFaK5D DAgb2 IqMye6X8Wd MjMgM QGCE6aZAzD zNiA1 MjUgbnVsbF 0+Pgp lbmRvYmoKN jkgMC BvYmoKPDwv RFsyM yAwIFIvWFl aIDM2 IDUzNSBudW xsXT4 +TkWeSU0bg go3MC MaQK6bkam1 PC9EW jG2TKEeAx6 YWVog MzYgNjEwIG 51bGx dSp6FVJ0fm 2JqCj kbLIPtb1Ua Cjw8L 0RbMTcgMCB SL1hZ VnUkEjU2VA ggbnV sbF0+Pgplb mRvYm oKNzIgMCBv YmoKP DwvRFsxNyA wIFIv AWrfXSA7QH YxMCB udWxsXT4+C mVuZG 3rqor0OrHf IG9ia rn5IQ9RAwM 3IDAg Fp7PPCnfJy YgMzU 8KV64qDnsW j4KZW 9ne7GfQdo6 IDAgb 5UjFmo4N5A bMTcg LZPLK0zDWc AzNiA zNTggbnVsb F0+Pg plbmRvYmoK NzUgM CBvYmoKPDw vRFsx NyAwIFIvWF laIDM 2IDUxMCBud WxsXT 4+EkUkSX8k ago3N hEcRP5guye 8PC9E WzIzIDAgUi 9YWVo gMzYgNjgwI G51bG qvAw1BJB9g b2JqC ia8IESls0I qCjw8 N1HoOBcuQI BSL1h SYzM1QpZ2K DEgbn VsbF0+Pgpl bmRvY moKNzggMCB vYmoK PDwvRFsyMy AwIFI lQNcjNKX2X DUzNS BudWxsXT4+ CmVuZ O7nctc8BPN wIG9i qbo6PC4NGb IzIDA dZl5DRGpfD zYgNT U2ZZ75lZhv Pj4KZ B4yf5UpWsm wIDAg q6WfGks3L9 RbMTc qDFONT9kVL iAzNi D2YFWculHr bF0+P gplbmRvYmo KODEg MCBvYmoKPD wvRFs xNyAwIFIvW FlaID F9UJSfWVQl dWxsX T4+CmVuZG9 iago4 WgCrKN8tlu o8PC9 XMpU8QCVwK i9YWV ogMzYgNTEw IG51b LqqAu0MPO8 kb2Jq CjgzIDAgb2 JqCjw 7B9MaWBzwB CBSL1 hZWiAzNiA2 MTAgb nVsbF0+Pgp lbmRv YmoKODQgMC BvYmo KPDwvRFsxN yAwIF IvWFlaIDM2 IDIyN CBudWxsXT4 +CmVu HM4eyog7DI AwIG9 tisn5UA2TJ zE3ID OgTs0IEBfe MzYgN WDxPN91aDp dPj4K GV5hp3SeZz g2IDA ga3UiElb1A 0RbMT fvNPNWY0eO WiAzN iAzNDYgbnV sbF0+ PgplbmRvYm oKODc gMCBvYmoKP DwvRF sxNyAwIFIv WFlaI WI3BJW3TOK udWxs XT4+CmVuZG 9iago dBBYbXQ7ij go8PC 5BRX3rb5xs XzMwZ IP1XRT7SWH iY2Qt VJRlBp4oMc Q3LWV iSmYxCiS0I zNjZC kgMjkgMCBS KF81N gRnLTI8Nr4 xMTdm LTRlYWUtYT FhMS0 wJme4YUfjY zZmZj EpIDMwIDAg UihfN iL4CYY2VmL tMzFj KX81ZPReTQ hlMGM mIER6I6RyV mE5MT Z4RSMaFBBg IFIoX uN1JNu6KVI lLTZh OTYtNDVhOC 05YzB pSPzzNlC9F jM5ZT UyMikgMzIg MCBSK E63NYMhKJR 1Yi1k NDViLTRiOG EtOTQ fLC1cGQD4Z zVmND dkZjEpIDMz IDAgU lltHnU2ZCL wYzIt BVNzYn26Ws A4LWI 4OTAtNWJmZ GQxYj liYTEzKSAz NCAwI FIoXzcxOGQ xZjQy ATZ4J2EsGE FjNy1 fFMC7GTO4E GM0MD L3VUXaUnxx MzUgM UXWRV41WWL jMmNj Bv39WQXfTQ RiMDk pFvG0UW1pR TUyNG P5A2E0AbEn IDM2I DAgUihfMWN lNDkw YzgtMjZkNy 00MjV jCDh7UHHlU WFlZW G1RBn5YANf KSAzN yAwIFIoXzF kYTI2 YmUzLTBmMz ktNDk 7Bl98LRA5C TQ2OD xaVqx5XUDz NSkgM zggMCBSKF8 xNTk1 X1PwFv1qXq RkLTQ 3NDEtYWRhY S0yNz PrObo8T4K0 Y2YpI NZ7RBLpDpd fNjU5 R5V8SsFpPX MzMS0 0NDYyLTlmM WUtMT ZlMTdmYjYw ODI3K DR2GXBxPWL oXzc3 YWEzNDMwLW UyZDI hFTCrXy7cS 2Y4LT djZThkYmUz MWRhM ykgNDEgMCB SKF8z MjdCNjkxRS 1BNTU 4LTQyRDctQ jlFNS 2QYZPfSmW1 NDA2M DIpIDQyIDA gUihf JFq7KIW8YI ItNjk vLB14LpUvK ThjZD EtYTVmYWMx OWZhN 9IiQZF1UrC wIFIo NuJ8JHFgMG gzLTJ kMjMtNDczM i1hOT s4WLLhFFR6 ODMwY xP2YLxzLZF gMCBS YJ4pGEZtPM gwYi0 4YWFkLTRkO WUtYj Z7VB76GtPa OTJiN iB5XDUjPIZ 1IDAg UihfZGNmYz MyNjI eOrQfFL57J 2YyLW F0JSQiSkE7 N2ZmO TEyYzgyKSA 0NiAw IFIoXzVjYz kwNWV nDIA2XxaaE GI2MC 57UBSeEUK5 NjNlN GNmMTAwNik gNDcg IJBVTG0uUc FhMDF kVA8rWYN5C TQwM2 NuSzX4Si6f NWM0M TcxYzAyMGI pIDQ4 IDAgUihfZm FhZTk wMWQtMzQxN y00ND MxLTgyODQt MjM2M zZmOWJkYmY 5KSA0 OSAwIFIoX2 NkYTU 7P0DaTOK5F TAtNG OgQR78ZDU3 LTkzM GS4UCJ5VUK jNykg NTAgMCBSKF 9kNzI 3QDpnHq61G TM2LT QzYjctOWUx My0yO On5WNCaNkS zZGUp IDUxIDAgUi hfOWI 9UYTaI2DiH Tg3Zi 72FYH2GBOe ODgtN dc4EFQ4Akr lMmUz HZG4XrCeMT IoXzk eDBC2GxBvW TgzMj FpMBLkFg4z NWYwL WYyMmUwMzZ hY2Q4 MSkgNTMgMC BSKF8 3DnS5OJJ5X C03MW B8GDEiWOYj YjdkN A77SMFcNyJ zZmYx QnCdIEP0JH AgUih kGrdrRZW7G DgtND tiPA51F3Q6 LTlmM GMtYzgxZDQ 0MjY1 OGs2JLL6GT AwIFI oXzQzMWYyM jA5LW U4JogvELpf My04N DFmLTIzYzA 2ZGY3 MzljOSkgNT YgMCB XAI6AImPaW TQxMy 01ODgzLTRD MDMtO ST5HL1NNGw 1MkM3 RTAxMjQpID U3IDA gUihfMGFjO DI0NW DiUJU1GE30 ZjVkL WJlYmEtYWN jNmQy HMF0QmOiPM A1OCA bFVDmP0FlJ 2U0Ym I0YHCaI7Oa NDI3Z M06VTCqEEt lMmM3 AMorNUL9Qx kgNTk nJSRQFB8fR zFiMG F6RF7pFcId LTQ4Y zgtYmViNy0 xZmM5 TfIzNNJ9Fa YpIDY wIDAgUihfN mNhYm EwMDEtMjUz Yi00M WMyLWFlOWI tOGEw RMJ7GHO7ZD RiKSA 2MSAwIFIoX 2FhMT W4PkUyNXOt NDQtN EGkFF38NUP jLWQx HsHpOcP4GM k2ZCk gNjIgMCBSK F82Nj YiUAPzEk1t MzExL TQwZTYtODU zMS03 OGVlNDViNz FkMTg pIDYzIDAgU ihfYj GcJTN3IPRx MDJkY p18WIMdEIW 0ZTgt P6IjCMRqER dlMmN yNSH9XBCxN FIoXz f6MDKjSiM7 LTQ3Z GQtNDQwZi1 iZjEw OSJsDxP2Np dhZTQ yMCkgNjUgM CBSKF 6eINVxXhM9 Yy0yM mNmLTRmODM tODAx Ir2hRfOoKw Q2Njd cBRdoTRM3N DAgUi jhRWG3AQH6 YTUtM YN8Jg29HuE 0LWJm ZjctNWMxYW NhODV bBhAlJNM3H yAwIF XyH4ZtKfqs MjdkL TliMTYtNGJ hNC05 MmIyLTVkZD E0NmJ mMzgyYSkgN jggMC OFZH3kHcCt ODRlZ T3rZpRtKVL zNGEt XCE9Pu0qYW E1OWZ jMGVmYmYpI DY5ID AgUihfNWRj NDYwZ DYmFkQ9HT1 0YTE0 LTgwOWUtYj k4ZjM 6QPo6L7RiM SA3MC AwIFIoTUtN Ry0gR RrnP6tmqns lIFN1 hZ9jkgtfGY cxIDA gUihfNzhjN GE0Yj NgWyLxJO81 NTQ3L ThhZGYtOWU wYTI5 JYp9ICN6HA A3MiA dXDWiV9U1R zNhYT ZgYBV4X0Sf NDhlZ O96PaXoBOt 5YzA4 ZjNkNzQzYy kgNzM rBPBSDZ89V Tk2ZW S0Nh74IGF9 LTQzN WMtOGUxMC0 xMjQ1 ZNZ6NIRhDK IpIDc 0IDAgUihfY TQ3Zj YxMDctODcw Ny00N IVrPTw8QGg tZDFh COBzZtS4HX k5KSA 3NSAwIFIoX 2UzZm JhNzhhLWRl MzMtN XYzIy8hOrx hLWQw PIE2XgL8EK JiNCk gNzYgMCBSK F81Nz Z4JnXmNg25 ODk4L GX7ULZqCcj 5My03 GCLmQ5S0Ux U2NTc kPTo2BRPvB ihfM2 FhOTFjNGQt YzllZ W93UvThKDE 3NjUt NzIyNGZlOD A1ZGE jYPR6JDLqX FIoXz q5HET3JOWl LTk5Q kItNDVDNS0 4MTk4 AZaHKcO8WY IwOTU xNSkgNzkgM CBSKF 52L4LsHNYc My1mM 1O5DZHiYBY tODM3 Hw8iVwW6Qn U2MWU zD3BiUHuwW DAgUi hfYzExZjk0 YmYtM afuJf82FNA jLWFi RQNiY0H3WU Q1ZjQ 4BKvcDVX3M SAwIF ElC4EaF8Ao OWMyL DA9TcMpFFJ jYS04 YzdhLWRiMm M3YWV iMjgxMSkgO DIgMC ORVE62FJD2 NzA3O O3oYliqBAR 0ZmQt JDm9NR2vIF E3MWQ 3WnV4HWFeU DgzID AgUihfYjc0 MTk3Z TctYmUxNy0 0ZWYy LWFmZWItMG ZjZDM 0ZjRlNTFjK SA4NC GpSBBrX5W0 MzZkY mIzLWNkOWI tNDhl EO50BYffXO ZkOWY 5NTdiNmNkM SkgOD KkFXHCBB2d NjM2N QWaGU96SUZ 4LTRm GdEnIEF8Xe 1kNTc yNWIyMzYzN TkpID z5LGKhZtjx ZTI0M ZL9N9MnTYP zNC00 OTdjLWIzZm QtYTI mQGTiK2YbM jcxKS K0TqIrVTQp Pj4KZ A5ff0GsRaI yIDAg y4KuFno3U5 Rlc3Q tCQoRLz8kD GlzY2 hhcmdlIFN1 bW1hc jdrW7NjrBj lPGZl TuIzLZL5AS A2OTA wNzMwMDYzM DA2OD AwNjEwMDcy MDA2N zAwNjUwMDI wMDA1 MzAwNzUwMD ZkMDA 2ZDAwNjEwM DcyMD C9DS8aNGFi ZW50I DggMCBSPj4 KZW5k f2QjPgq9MI Agb2J zMsn3G58sY ERhdG UoRDoyMDIw MDQyM jEwMzUxMy0 wNCcw MPhtV5LkWN F0aW9 rPLW4ENiVX jIwMj AwNDIyMTAz NTEzK q95NqUdVea vUHJv ZHVjZXIoSW JleCB FRZMxU0XrZ XRvci R5ZqzmDG3n NS84N MA4ATsTWWU BXVAv RspfoE9rnP ZpZWQ gdXNpbmcga VRleH VgWr9kCinq YnkgM VQzWFQpPj4 KZW5k p5PuFkhbDC YKMCA 4OQowMDAwM DAwMD VlWBE7CRK9 IGYgC jAwMDAwMDA wMTUg MDAwMDAgbi AKMDA wMDAwMDEwM yAwMD AwMCBuIAow MDAwM UQcCYz6NXJ wMDAw TW8fDaArTC AwMDA zMTQgMDAwM DAgbi AKMDAwMDAw MDM5M CAwMDAwMCB uIAow MDAwMDAwNT I2IDA qCZKwTC7iC jAwMD AwMTkzOTAg MDAwM DAgbiAKMDA wMDAw MDcwNCAwMD AwMCB uIAowMDAwM DAwNj QwIDAwMDAw IG4gC jAwMDAwMTk zNjkg MDAwMDAgbi AKMDA tIXYnPGF1K SAwMD AwMCBuIAow MDAwM RI9IGM7MWU wMDAw KS2rLyGgYO AwMDA 3NTcgMDAwM DAgbi AKMDAwMDAw MDc5M iAwMDAwMCB uIAow MDAwMDAzND YxIDA fRBItDS8hL jAwMD WfGEV9GJZt MDAwM DAgbiAKMDA wMDAw Edz0VqGkGW AwMCB uIAowMDAwM DA4Nj UxIDAwMDAw IG4gC jAwMDAwMTI zMzIg MDAwMDAgbi AKMDA wMDAxMjQzN iAwMD AwMCBuIAow MDAwM GXrAaV7QXU wMDAw TP7rThPmVB AwMDg zNjIgMDAwM DAgbi AKMDAwMDAx NzAyN iAwMDAwMCB uIAow MDAwMDEyNT M1IDA qIVXlSE0jC jAwMD KcOON4UEho MDAwM DAgbiAKMDA wMDAx SkE2OoDpGY AwMCB uIAowMDAwM DE3Mz YzIDAwMDAw IG4gC jAwMDAwMjI xOTYg MDAwMDAgbi AKMDA wMDAxOTQyM yAwMD AwMCBuIAow MDAwM JI6TBkwKDK wMDAw RV9tHsWkUL AwMTk 1MTcgMDAwM DAgbi AKMDAwMDAx OTU2N CAwMDAwMCB uIAow BTFeLGW9Xn ExIDA hRLEwIA4oM jAwMD TkSQs6YJen MDAwM DAgbiAKMDA wMDAx OTcwNSAwMD AwMCB uIAowMDAwM DE5Nz UyIDAwMDAw IG4gC jAwMDAwMTk 3OTkg MDAwMDAgbi AKMDA aKKFgPEs7A iAwMD AwMCBuIAow MDAwM EL9RXmkAYP wMDAw UO4gZmCxGA AwMTk 5NDAgMDAwM DAgbi AKMDAwMDAx OTk4N yAwMDAwMCB uIAow MDAwMDIwMD M0IDA cQPGrLZ7pF jAwMD AwMjAwODEg MDAwM DAgbiAKMDA wMDAy MDEyOCAwMD AwMCB uIAowMDAwM DIwMT a1RGVvIFMw IG4gC jAwMDAwMjA yMjIg MDAwMDAgbi AKMDA sJMGkVUU2T SAwMD AwMCBuIAow MDAwM AOoChU7GDL wMDAw KN1gVxNdPD AwMjA zNjMgMDAwM DAgbi AKMDAwMDAy MDQxM CAwMDAwMCB uIAow MDAwMDIwND U3IDA mKHJeGD2pJ jAwMD MhQbG8MMHp MDAwM DAgbiAKMDA wMDAy XCI4OACzRF AwMCB uIAowMDAwM DIwNT d0EHEpQHRc IG4gC jAwMDAwMjA 2NDUg MDAwMDAgbi AKMDA dSDMkYGC9N iAwMD AwMCBuIAow MDAwM IPdSaL6TOW wMDAw PI8kWkNqBO AwMjA 3ODYgMDAwM DAgbi AKMDAwMDAy MDgzM yAwMDAwMCB uIAow MDAwMDIwOD gwIDA oJLLaOJ4oT jAwMD CsJsB7Yopm MDAwM DAgbiAKMDA wMDAy ZFo9HSPcVE AwMCB uIAowMDAwM DIxMD IxIDAwMDAw IG4gC jAwMDAwMjE wNjgg MDAwMDAgbi AKMDA wMDAyMTExN SAwMD AwMCBuIAow MDAwM DIxMTYyIDA wMDAw RG6pBdQvOC AwMjE yMDkgMDAwM DAgbi AKMDAwMDAy MTI1N iAwMDAwMCB uIAow MDAwMDIxMz AzIDA sMXTnVI9aX jAwMD AwMjEzNTAg MDAwM DAgbiAKMDA wMDAy HBG8VhGyND AwMCB uIAowMDAwM DIxND C6AZNyEWQg IG4gC jAwMDAwMjE 0OTEg MDAwMDAgbi AKMDA wMDAyMTUzO CAwMD AwMCBuIAow MDAwM SCuRTz3QGB wMDAw LF6yUhHbNT AwMjE 2MzIgMDAwM DAgbi AKMDAwMDAy MTY3O SAwMDAwMCB uIAow MDAwMDIxNz I2IDA oJMTpFU9eL jAwMD EnWsJ8CcQr MDAwM DAgbiAKMDA wMDAy MTgyMCAwMD AwMCB uIAowMDAwM DIxOD F2QDZfBUUh IG4gC jAwMDAwMjE 5MTQg MDAwMDAgbi AKMDA tEEOnBKy7G SAwMD AwMCBuIAow MDAwM SQeZFS9WJO wMDAw MI6hIjXnPA AwMjI wNTUgMDAwM DAgbi AKMDAwMDAy MjEwM iAwMDAwMCB uIAow MDAwMDIyMT Q5IDA fBQQqYL0lP jAwMD AwMjUwNjkg MDAwM DAgbiAKdHJ haWxl urv4SE9Tav ZvIDg 3AHPsAs2EP CBbPD N9ADCpMTOu NzU3N LCbClJdC4K 3MTA2 YjBkMzhjYj cyPjx kZmQwOWYyZ jZiNz YxYjQwOTA1 NTdjY 2VhNWYyMzM wND5d C9Xhf4FqPd AwIFI eL3k2VXI5O T4+Cn L2BXK8zQTk ZgoyN [id number] PRgo= ID Date Data Source [id number] 08/12/2019 12:12:00 PM EDT [facility] Name Value Range Interpretation Code Description Data Supporting Source(s) Document(s ) Physician No PuriIASHCd3hFp QKJeL [facility] te8GIVUVwB G9iag Makaweli [facility] 5cGUv Center Gd4nhC3JKK NlRm9 dxH1QATe7E XRpY2 BwYV4as5Yq bmcvV 1ywQR7sdTE uY29k cC7iMh2FTP 5kb2J qCjIgMCBvY moKPD wvRmlsdGVy L0ZsY UPeOEGyc4Y lL0xl bod1jFEfZF 4+c3R yZWFtCnicK +QCAA SoQCnUZL7g c3RyZ WFtCmVuZG9 iagoz ZYQsa5UtPb w8L0Z zbCXljq6Gg GF0ZU OyO43tUE2R ZW5nd GggNjk+PnN 0cmVh rDm7vWDE7W rk0o/ INFAwNFAIS eNyCu EyVDAAQkMF I1MLP XNTBQtDPQs jhZBc Ir2RoUVJeC h+Rad yLusYo8lDM yAXAL QnQe8FOY1z c3RyZ WFtCmVuZG9 iago0 HJZxk4GdRo w8L1B wT6BRl2WgE 1VzZU 5vbmUvTmFt ZXMgN SAwIFIvVHl wZS9D UXSglL2aJ9 91dGx pbmVzIDYgM CBSL1 CvC6OsRSar MCBSL 1ZpZXdlclB yZWZl zpSxH6WwMG ggMCB OTy6IUM6jz 2JqCj cgMCBvYmoK PDwvS 5ksr2a5DXO gUl0v PCrfWR9OLC dlcy9 Sd0AgbXZtK 0lUWF ElGu6oAdsp Pj4KZ A7rb2MxOnU gMCBv YmoKPDwvQ2 91bnQ vKP2OlDVki CAxMC AwIFIvTGFz dCAxM CAwIFI+Pgp lbmRv YmoKMTEgMC BvYmo OEs0AC5IUK XNlZC AxMiAwIFJd CmVuZ S5rdxnwRaO wIG9i nyt6OU5VfM x0ZXI vRmxhdGVEZ WNvZG FwPQCfS4Uy IDI1O TYvTiAzPj5 zdHJl IA3HyHilxc dUU9k Wh8+9N71Qk hCKlN HepMYXMX31 SJEuK jEJEErAkAA iNkRU cERRkaYIMi jggKN DkbEiioUBU bHrBB mC5DFzOTyA SWStG d+8ee/Nm98 f935r i38I9Xsraj a6AJD 8gwXCTFgJg AyhWB As21UAiUte YAcBD QKFE5qV1EE zs0IW +NCAtTL63Y xsmRP 0U986JaH8+ yrTP4 zBAP+flLlZ IjEAU JiM5/L42Vw ZF8k4 PVecJbdPyZ i2NE3 OMErOIlmCM laTc/ ZkT3s6zORH OfMyh GtVt0DX3lG w5Nwn 8451Sp0HgZ AZF+c I+LkyviZjg 3RJhk DGb+SxGXxO NgAok npa6hZRFHa tY5Io XuLa84fZ5I jJX/D EN7cFerOPS 8XOzF ouEiSniBkm XFOGj ZMTi+HPz03 ni8XM CG44oHWuKo iZGVk i5HNOXk/8W RR5bR myIjvYODk4 MG0tb l9d3E2t/Ju S93aW XoR/7hlEH/ jD9ld +rO2WoWFke dn6h2 5tAMCu9oZH u/2Hz WAvAIqyvnU OfXEe unxeUsTiLG crq9z jNIwFj1ujW +jv+p 3Xs9OovR2U vt3v5 EB636Z4yzW xQ143 ceK5jnBFzV 7icPk M5p+H+B8H/ nUeFh Z3VO2MU8YW RMumT CBMlrVbyBO IBZlC guV8l0n7M1 P+pNm 5lona+BHQl lgCpS RoGF1oUBfq ESAJe 8Uc0Q07V8V [place]/nN z9YHcF86j5 L+fVe 6UX7DYrM/j mNHRD X0CaQK2Jc8 WgI0I ABFQAPqQBv oAxPA BLbAEbgAD+ ADAkE oiARxYDHgg hSQAU QgFxSAtaAY lIKtY CeoBnWgETS DNnAY dQUs1YU2Fa 6By2A U4RALGF1oe CnwCs xAEISFyBAV Uod0I EPIHLKFWJA b5AMF QxFQHJQIJU NCSAI VQOugUqgcq obqoW boW+godBq6 AA1Dt 2UWjXX2IWd HIzAJ psFasBFsBb NgTzg IjoQXwcnwM jgfLo R2uWFhD9oP 7oRPw 9beDOzDK2O nEYAQ ETqiizARFs JGQpF 4JAkRIauQE qQCaU LufX8fX6hW SJGny FsUBkVFMVB MlAvK NcJO8iRKiG ahNqO qUQdQnag+1 FXUKG wA6AJJCwmn zdHO6 GR9PRqEyKu uRleg m8Xe4WOeYh Q4+hU Ql9VabCAOH H9MHC YVswKzGbMb 0445h RnGjGGmsVi sOtYc 64oNxXKwYm wxtgp 6HMkQxnE1c n2DI+ A4bUP4M3d4 Togrx FXgWnAncFd wE7gZ vBLeEO+MD8 Xz8Mv xZfhGfA9+C D+Suzy JyN6gSqfIG QiphL sBW6DB6T9c LeEEk EvWITsRwoo C4hlh ALTB7Eguwd iVRSG YkNimBJCFt Ie0nn FGbZd9ws9b GZA9y FWlY7gBgDy 8h3ye /UaAqWCoEK PAUVi vUKHQqXFF4 pohXN TE1OIcjpC8 YoXhE cUjxqRJeyU iJrcR HQwQRv5TT6 YbStD IJ7DM1SYfW ebNyi /QT6HdWWLY I4kPh UYoo+yhnKG NUhKp RFFD06PGFX upZ6j gNQzOmBdBS aaW0b 2iDtCkVioq dSrRK nkqNynEVKR 2hG9E A3Jk9Vwgd+ nX6O1 TyFQ5Wdeyh 1TbVK 3ac2jjwksf x1UrU 0mLT9H5jG8 R91NP Pf5r0it/TQ GmYaY Ck1Pre2Sus 8XQOb K9HHP6dgwn H59zW tPDGYCS3W6 ju0xz QhEqI8bZPp tKq0j nm6RVneo5u naq9Q /sC4gMGKsi NR6Cz Q+ekzmOGCs OTkc6 oVIPamjS6g f11Jb z2qdT9L0mD elF6h Gphsid9Mkn s/ST9 Hfq9+lMGOg YhBgU CoHq5VgYUS MMUw1 2G/YavjYyN Yow2G HUZPTJWMw4 wzjdu Fe9lPmNfN1 lm0mB yzRRjyjJNM 91tet pKBnE7QjEb MRsyh 44zyWCra68 HLdAW ThZCiwaLG0 wS05O Nv5uozklGP YMtCy 13IY5TWKdS W22z6 vl0vX8lqU7 daH3H efFOaXJg21 Pzq62 ZBec5icfoZ PJc37 vp16wVcM8k bse32 8Y4763jF4Z /wb7X /uMIa2PJph 1h0tH WDtKv6sITb 8YKY2 1yzWnAY9y8 rXY65 rYN1rDK1We Y+RcX xxoeU2lOw8 nG8/j lPdeIlxq6k lzrXa SxQZzZv29x Unddd 457g/sDD30 PnkeT p4FxsEir24 HPZ17 WXiKvDq/Xb Gf2Sv Ffd4Lpj7uJ e9CH4 hPlU+1z31f PN9m3 7VjEw54vlv 8pf7R /kP82/xsBW gHcgO aAqUDHwJWB fUGko ZWH1XUDfs7 CRcE9 LWKSVOr8gY vzDec X22oAvoQP2 O2h98 EYq9mCfD+O CQ8Lr wl/GGETURD Rv4C6 YMmClgWvIr 0iyyL bQJhPCrB8y xWjE6 Kbo1/HeMeU x0hjr NIIuv2U47a TxHXH Y+Uc19jhyn f6LNy 1fBaTVeN09 foi40 H8kg4f2aya vvj4E sUlnCVHEtG JMYkt ym92sKpGyo TSgKW 5K6h6jJ9y3 hOeB2 8Oa8Exnm/n TyS5J kLwERd0Nt6 ePJni qhUU2fCQGj QLnqf 8p6kbiy2CP duf9i n3Ow41M5eU mHFUS BGmCfsytTP zMoez kJIIa3OEpN ftXDY eYkN4DCYDy 7K7xT AWm9HUzBUm XjKa4 5ZTk/MmNzr 3SJ5y zeUpYCqL1r 3LJ/J 9879egVrBX dFboF snirA0peaP +lXQq qWrelfrry5 aPb7G c36WjRK0qH t/KLQ kZJ46nF9oN U+RVt ScldQ2ejkn ixWKR wW8AgpfbIz I2ijY UJfi6fvnAA 9LeCU NU51RB0eqe +Zuvv rZdLtYT05d krRls KjnbK5YhMs h1uvb 3LcdKFcuzy 8f2x6 rbTRXV8oAu pc7l+ x9NNTLUitN sEuyS 1oZXNldZVC 1tep9 cAy2KH2QYQ utZu2 y8eq8odnh0 PHY01 iqFXtn694j YO/Ne r/6zgajhop 9mH05 +g34Tdi7r6 36url Dj8l02pL+4 X7pgY gCrt1Wek6h mi1lr XCrpHXyYML By994 c1Yysqslr9 e3lx4 ChySHHn+b+ O31w0 GHe4+wjrR9 Z/hdb Xj4j9GR6lf eOdWV 0iXtjusePh p4tLf Cvasqv4xu9 x/TPV GgPBA87JrZ iaITn 07mn5w+lXX q6enk 59H0M8obsR k9c60 vvG/wbNDZ8 +d8z5 3p9+w/ed71 /LELz uyFWyVa3Mb kcKlz dQ2i7vq4Ap oGHQY 4xmqEua54G e4Znj w62zr3rcOT va+eu sAf3fDE/JH h61HX f85RgVM5ec v56Fb 3fxh2y49H0 FlzF3 132C8SkMv5 mvcbf kG8uE4sAY3 +6j06 9RZDzyka3Q EnP2X /4F689FU7A cWEzk TeY1cXbdQ7 Jy8/X vh4/EnWk5m nxT8r /5h1fITJj3 94/DI wFTs1/lz0/ NOvm1 +ov9j/0u5l 73TY9 T6NEy2oGyi 8UX9z 4C3rbf+7mH cTM7n nfa1gZ1x+6 PkY9P Xzt2uRj04C 94Tz+ wplbmRzdHJ lYW0K GQ5op3CnIk EzIDA gg7CvFom6F 0NvbG 9wQ5NfU8Rp RGV2a ACdQ0VzvK2 IZWln aHQgMjkvU3 VidHl lKO1HuTIpE S9GaW x5MPTrZmur dGVEZ WNvZGUvVHl wZS9Y U6TzLBU8E2 dpZHR zFIC0Et4Ju XRzUG KbQ48ocU1b ZW50I IvnDCKiI7L oIDI4 Px7agCAmZX 0KeJz twTEBAAAAw qD+qW mXG2KIYFVY AB4G+ 2OKjwplbmR zdHJl WR1KJA4ce7 JqCjE 6HZSuv1ZeP jw8L0 WasZ4eA2Kp Y2VbL 0rXQ2Aeb5U kIDEy FTEiUq5jWE VpZ2h 2HKI3X5A3Z nR5cG DtSY8qM4Kw Rmlsd PWzX5PeKWK lRGVj g0NzM2AaL4 9kZVB kpo0kQGtgT 29sdW 1ucyAxODIv Q29sb 3JzIDMvUHJ lZGlj vN0vAIT0T5 JpdHN FIUPSu93ws 25lbn QgOD4+L1R5 cGUvW S9aksChxK7 XaWR0 aCAxODIvU0 1hc2s gMTMgMCBSL 0JpdH GCIOUFl05x b25lb tOqAR6RnlR lcnBv fCV4MHH9lz VlL0x xvje0rTC2Y DQ1Pj 9yjOMrXU7L eNrtm wlUVEfWx2/ iJHMm 0bhGWRqatW VzwSW OE+PESEKMi iua0T gaYjQRjQIa AiKgQ NN00/vCqoC ANoLs h9LRkcfROk FlURF QUUFAQJRFY Kq6ka WwpyyKD99A d97R4 +t671Xd+tW 9/3vr XH9juDXTJ3 r5x2e uZ0q6BIXEw eTElf KHr65/12/X xaRXh TPGrFkN2Nk 4qOf/ teDb7iI0TP M/NQv 58Ym5RvFM2 zc9NW mZV0/Ps75G kRfLF Ov4XKrPkFa Eoj8X oL2RFbxNqV z+1fe zF5eBRuwpS ChRQI fKIVntcs3a uL3+1 1dOo0SxXdS pJZWN Y96/hqbHqw +Gw6S iLM70akbED ZbxM0 394EMHUHTZ 6hCDy E8oXwlyvUS Lc0Cd Puh5jDpW3B K8rCv 3BjZqbHmam le12v SddALJpb9v 7uRl3 hGppTdrGl5 1/+qb Wr/OY8OkJV D0AkN K9BIZ7mYt1 ARQp4 TrTVY5PYB1 5ojYe afADFeYQia fzJT4 aYtDLEwmgx I5ID7 /zUZE/JeZU xzo8E FAs8QuMDta XS6eJ jDq7d47k7M Xja2P CUgIv8oX8O LudVk /Pj5dD5X5b hyRlQ eigcAEJWpq boXUB mT/DCAwYDr N1f/3 NwWIoWbsRY R2shC 0OehkBOYNc 7/2xg UM2WOd2NjY 9tfcd n4Fh9CXOVt RL/YJ dzqnyrrXVp COPN/ GZqZde2w64 SOLOMON+6 KJ12oA5kBI EaCgk 0HO4cdfq9p p2ujn WOmIuPrlix Gh+uc N5isIwKQGT QBl+u vv/bJdUaDH k4rIC uoSyKs64b7 h615u KXFYt8qCLh dr60G GIIW6CpOQ1 giIFJ ylZByht7N+ zGkJM DBx7Z47BZB 5/X+F dF03Uggy9t 4YUGM bK8ELB0wM5 UKECH sMETHcGgT6 yKVxP gSzAfb57G4 BRXCk l92Csv+yfO ymJoC KO+lrDwg9M 4vInz dqjPaEgQYV JlrDF Hsl4xO+0cM 90FqQ jrInUHKBqW TQpxt gI3ukpIJgH SPzCJ jhjqXoLIHh 1rD97 lk/kdPRud0 hNS6z tvcSFx21FL 7vNOg ygOhGWHUiL vOa/N C11r6DrVbm SwkUl ADR2W455t1 UiCGX 8+5iSZcTlF gwbhF 9TYI19Cfka m+8L9 MTznv343kV ZtPDU TCLDePtYJL 9B0s8 YbfH8cP2e+ 0/dlF gwIaPbGDCY TBgfr U33D+uoOtZ W298I cfCNNGIZgt I64QW 7AmuWKj1ks Wn3Bh MJRVlD7NV6 w+Xsa 8ONwZy3Le2 xxCY6 DZw3yr1yIF 2KTL0 qCPxm1j4+K zrvwn UoxLsk3rm1 EvF1f IgEphQ/JV5 nKl1M r4+V4J6Jmt +UNKq Awno/OKnmN OJN4Y iaqOKB5K4P mdh4j FJXTJ7p39M JM40K kciVB2JBI2 5OGzN 0eFb2hA4Gk BywRk OwW2vbmWrj 1Wb2k SDtiuoc+Bj mkTjl njtYw4UKq2 TgBID bR2jjnbQD4 p4pMM CI1fhiwTS6 dwNJM IJC4qU3Aew GLRor 98BBRcgOsd klImv bXNdL8E5kU Q6ifx u/TAwHL2W7 XBIA1 0ezPEgrAja 8GuvG ZEu8Yu+Joy IzNsW EWiY6ew9Fb eJJr6 djy86F2Fea ZiMEp juBDMHhedn 3U9BA +XegtlbA+Q PNN09 3aDCABLHyT dvhEC lrP8pcuH43 qBGO8 M5GFBhOaK3 aqt9L GgD5BhgGYt 538a/ mDEczY6qs2 28ZSH QYf4Q7rlkH MHYvA t/CIDJzmg+ 8MIdY kx60O+g6Ya iGP6V jX7Hv4CoWo UJFN1 GN1KxfA4XC Wqcj7 0CIOYYQ82P 4xOVL 8nNZBdmcOG glspo jKQ0jivrKW euDDN QqS0yViZpB GaCCk r/2Vkz7Ik3 lJJ/A zSYoOB6+0G /DgA1 KmzivEl2Fp 7fNAD CUZNh7Mopu empGB Eb/uUREEE5 s4YL5 eQlyTCMLI5 8iTo7 +EgKWWX281 tfnEK TuE4+l+Wla l+UiC r+Szqh93Lz FXTZu IIgwyV/rosales E3zIE stDQM5aRoM YOu1A kkokez56eV kPWCE 3tjZsFZXeR 60LO8 vF0wwSTc+w qod7E iIwkV+d4TD E6MXO 9UNPkVP+5p vfU3R jy7j/5UkcF RCqSb 0M5lgMLEPp uDczk 0BBQIq1TdM wNH9r O+vbk6eQ/h 8hAIb bLbMErQUSN VVxxf +ivlXfrUAx Ck2HB SpMrasznYN q02B5 nC+VEZLtDC nbj+o J/8kZ3AFf2 8Cwer AxECstrxDJ cApFx i/fu4CF2PB l9I2E 7aSW45w93r XMHyy Ad/janaImW 8Zk3y yrrRo+IHt/ EMsrr xHx1iTANgs U6/aL Zuq5xn21e2 FH5xR egJYgG4+h9 SXq/C s1e2tM4LS5 XWa3d PV5VH83vsx oVIkJ avqTG6lyCX Yf3X/ tzciGCchlc xGOFn i+BC8QkN9Z IGPD1 NyC2CixSBJ 1NiSx Dcn52dgaTB pGrt+ 4DgYZMtHJ/ tIzaJ nmOYZX7cG5 UQHEY FdMrXW7LFR 65ENH vsXMZE36g3 VICzc n5fYmyZyv8 JTWS4 r+tbZNtpFg HjVvo R8FcZ2xi6u oRkZX 3vzVJ4HcmE yILuW IvwhFekduL pIq8C P+wwYi4Qw9 4mjoM Io+v56EtPm SIo88 oWTX9USNd+ epnXZ 2OvulAYmIF o0Ttu /7HHtyrwo9 qMzQ2 PW8atm5HHY 5Aruq aCnFSgDoxy QnAEc ZEqJwKz8ia vh3Ka SE0qm0Z0Au YJ6fk Vmw+EgmGXO yl/tq EcFe5n2oIq LUTZM aHxOg2x+K9 LV2e6 Q6oedRQ0TX Fkc22 qYf2ULHQXE 8y9bt 12Y3RYQ/Gp kYnOA 901YK8bWqB I1+Cp pbZ083up72 3IgrG wvpuUwPI1o 2jrdg GmZ817lBGg Alamg bdlk81hxnF vxAit dMyz4SAbYq D0Uh4 Im+3/mCMnM OcYey UJy75q43Aw V8AkY 2ca4bUWykY dWdUd zUQpndXD4M IMSgk RxwRmw5KoX AiOaN FRGejyIsQm QWldf J3+tqtuxOX C+D9w 99Ynampa+r NnL97 cblq+7q8yI mYIiR EYLbnJCO+v HURZQ pe+ew2tub1 L+VFb KSeGBraQ56 UM+qj c8IuHRa3Jf U71wu pw3kN9i4VN IdD2o sO7J6VKDOr KLyqt UffLwCFj3h CXJhG AXVKbeOjwX JVpEX mjAKRh4+ei E1pzX 15RJLlnXKC qBapS P376tNm8+S ccizn kYqczxwkUB xFiBD jZoBmQZs5f +0dvb OxFtHhmTkl 97zQ0 xPqgLbUX7O Y2J3M KIw3op5vii 5vk13 x6LHRtLIDl 8DAQ8 DWlavq8ah9 YRoZI uSQssWQ59h FiL5H YcuPSFfXM5 z66/C 2OyS+JCLfO 56X09 CrLMPxatbm Oh6/O XFeY1HQmM0 NzQkd NJv6dXRFHH 7i4GG dyAEu7XXgF JH+PP Sv9OVf7WMr PI8mT z+Iu2vutwb lyF9b hOFVrcHyjS ocwD0 Z9dPo5+iX0 iJa66 Ww7EP3MAEO hZZ4e eQtbzOnRBw U1Vh5 JZJVCjAUlR wI7tI QicaIaEmhB xRoSM RlSpoM5ZuS sFiMS OmwSe/3R5P kXo0d oErBjoEkOV Xup3I Iy4SdlySAo y2S3K U37lcJSCpn kPFnl ZQtmPoWcbX G3mNQ XrZVBG2L7b iyHb0 zR+gxk7dd0 2wJlj 1pASxrgvB2 AQkzD y8zIgCg3rK xC8gT B2IABK9PhZ 0+hYQ Hvqxi6dnQ1 7yzl3 ZnU6Vf8jgx tl6mX Akd3zn4Kup Z1EEB 6CldMphP0i YYQqR D0i4PeqgQB oYgZf J2aRCOWJQo rPe6B 14DT3fHhhp ZiOjx p7MYgv0uQ0 eU4TS HbX2xY8a0D m4POM bJ7hqq20yT ngcoU YyqGoh76Ph t/LGf Dn+Cy5LnHT O+CJS v8FeU0l3RI lStyS 8dfXhKVY0Y Ip/7X PXuozYSf4J 9yksD ScG5qWhNtq uax6S c/p0sdRN/L FNUXa UjstoyUvxh 4uoDw 2b10Eqd4xl GKyX/ hsRPX+2Nxv k3Wli s4B79uZP1Z CtrHh 73lXOrqj0/ aRftQ eTguiFKbvG eUy8K tKAstCLjsk vwR6Z aHEGYJKnwi ejhRG Ztg+TXkN/a xWC3R GLvYyQNqDL 107Ba BDoZ6axQyL wAJCH F/Otu8VzYe Z1yMh M+bgd1Zxe/ LXZ3d cV5l2chPWR brBOA yIAZlCvlD6 Tbk0j BypHItGJdK K+sK6 sf5C5cIpvr jVK8m PQyvFmIFow 23YJ5 sZp99Jc9s0 Q5goy wHPG8KvC+c 4htff G705b5u3NT 5YA6+ FNqHL89sHA wMY0c KLntgnemkD ZYMKg T1NfpRPKa0 FlrE9 O14B5zWwd9 yVpuH ujku0SRgIt uy80j rXApuv+73M LrDyz ZKRM/98S7L agN8j ckqplTQmD8 1YHvO MBMwR/akHh 4AxMJ qsjKiuU0N3 rhIye CdqMF86MF5 puOmx j1bfTUi8Ra FAXH/ Ku72SDXTop q9AXb zuhsEFbceX iIk05 i82z8hSIiR bzQZ5 gzkuKzb/Y9 ra0NK VYn/HGXGl1 1lf/O LvpHvA4EOO Gf0EC K4tZtBJJvN XFR4v rexQreBF7h DT5Xb E64LlOnhJH wLKBr r/m8KUU0BN fISUl wHfWV7UM29 WhvSE nG52HQi56A A/6/d kvLBWc3fQT TL/Oz e+/oXJjugs erzcM UYGASh7bie 97Q/L e2ZsEDd1y+ kQVTX LSFgO3WHOC OuIJz Gt3liSOtu6 DGx6Z Wp8BEJ/joq PH+8M 7AwZMJaf6D RApMd E8VFt3k1dP FvmYj 2xXT6OLu0l 1PHku B08SPjt+oz ppq5G Z5YN52INL5 /SigJ YhGd4fBIdr vRP9c azlI+mUX3t 9kfX4 PJbOvzS+0r G1HUt 0DJTcpGptb dlHOT Hm6SSzGSyD public area supervisor+l E5dplW32v/ Hs3z+ SyWG8vhDOr fx4fP 8mbWlV/XuL eWj8H kuwvzN4RX2 v2dQ6 +WfX/lfvo2 ZtsU0 JTiiVeO/SX UJYyA TuW5fTW2ar 9r7Is a+xTNzlnNF 37wH3 0E0l8zgIus Gddar yQ9nGY4eSu Q1+Jm yjZ2QK9/h0 VO6Ee mBFGEy30G8 rhO97 t8mnBpJDOn LX3jt FjoBVTFjpj 7/M1a IiV+8R0Stp a2pbY I5dWl5nEN+ WvOuw 9oyDDgzUq9 r/e8A CPlpUlKBLE jE6p7 T3t58I4p/1 xB8P/ I8VKCvcpvv gnJZe Q+mfsh1lNd bOJ1z M31zel/vCq u7VQ8 /bY+yO2/ce lVU2N E7uU4LTGQr ouNt5 XXzTB/UWkV d13Kh 6CEpUnJXos Y6dyG xrf/oWkbeH 5FHf/ Rzh01TXmcu B4Dp+ itzkv9uoQU ms0D/ KJoDrtrA6I eTtgQ 7I77SSdbS6 CALKb mgwiQLKZEt O8pvS /8iNqV2J6t A552o tOitrmt+sn v8Plv KI5VzngrPr dHJlY O4YDZ0yk7F qCjE1 HKCra0NuYz w8L0d tf6NeKKblO y9Ucm Hxe8CjzrVt Y3kvS RC9lfYaL0v gZmFs x5PsR1HyRJ EgMCB NDh9tF21mt GVudH NbMiAwIFIg MTYgM CBSIDMgMCB SXS9U yZYmQ6FgJ4 UvUmV pe2RoY2CzT DwvQ2 3cc7HQgFNc ZTw8L 9VxXkG1xON SR0Ig MTEgMCBSPj 4vUHJ qS6IwaNBgP 1BERi FgJPZ5qJYo SW1hZ 4LSYL5PeCW nZUMg Y3phCZmvTX 0vRm9 yeKs3R0ajQ m8gMT lmXONOB3wc bHYgM ErzDNRQG8l pMCAx PFHgKf6EGW 9iIDE 7FNUbVn4+L 1hPYm qpS4O8UU92 ZzEwN lE5WtDvUGY wIFIv tK0jGSUjNX EgMTQ gMCBSPj4+P i9QYX JlbnQgOSAw IFIvT WMdhKLSj6u bMCAw WEVcKrZ5ON JdPj4 ATA8mj5RlJ jkgMC BvYmoKPDwv S2lkc 1sxNSAwIFJ dL1R5 cGUvUGFnZX MvQ29 7xqHfTZ6QD XJlbn QgNyAwIFI+ Pgplb mRvYmoKMjA gMCBv YmoKPDwvR3 JvdXA 3IB6MH9ThQ W5zcG GnNV3ihJ3G U1svS UNDQmFzZWQ gMTIg MCBSXT4+L1 N1YnR 6fGLqOq5bl S9GaW f2MUBdEdsz dGVEZ WNvZGUvTWF 0cml4 WzEgMCAwID EgMCA xHQ7PcQHhR 1hPYm wgV4LbTj6z bVR5c QMsOV3DLEO vdXJj PMK5OJ7Gnz 9jU2V 2Pj7ALETiI GV4dC 9JbWFnZUMv SW1hZ 4AZB6weMZe lSV0v JD1yzjFtfF w8L2l iARL2TQygH DE0ID AgUj4+Pj4v TGVuZ 0DyJLPvH7O Cb3hb NXGhLXQ8Hf AyOV0 +QuM5ulRxz Qp4nN QUtAT0YWXd NFRwy QcAFBADCgp lbmRz cUFuZH2PIV 5kb2J vLyC2NZChz 2JqCj h8B4OfyEWy ci9Gb JC5NCGrN83 kZS9M UC3nlFyaXT QzND4 +b0IkUNLrX nicvV qKy1m5CL3t r9DMv ZiZYiTZkq3 2iQJt lCbyH62j2t 43N65 TidsZUaQ3d 39/a4 BnV5IU4I7h k1iyJ M747440zrQ 6hohP EYZfKpArbI Y8ym3 aHvU5QSk13 ieCOR YOGmbotzfF cDWYI Exr8SGDqhH BxIGh 4RWYgH6A8+ YJ9W7 khwzB1+DRz MOoK2 zHcTEmKFj9 ZU1mv 7zr/I2CX98 gNAre iRG0xltNo1 JDmXC AX23PuMK7l gNwdR aDp1DjJKGv E1+t3 4+ibJfmHdS lno+s Jxz0zrwdX0 R53K8 FOIQR2/61C Hc3A+ 3YLNG8rKjn jQyTf Gj221jpIgX axog/ w7NOmKwjX0 dvNWD /bjb+rDvzW mjmsL XMjSoGE0Dx hYl8h EgnRM9J5iW jTZ6l OyKcx9B642 Eutr5 8KVOFkFIU8 jY2DG 8/NG1A5/LV CbEZq eZrj/o9Ilh DxmLc mkqieXsBxi B04Wb bHDkunOvzY xBuCj vfuBXd6vC4 h24Ry qjbbQxaK/j PtwNI DwJ+BuPbad NZw4s DtBXWTMqF9 st9b1 hVsz5dpdVZ H7c4V qkZopBY2kI ky4tw wsBdi2LKFp X1GQM lqCXGcDwf3 PRnn0 c6tpFPD/uB mx1xO XA4d9Iuy2W dFZkP Y8MprGF1mB e3pjs s7ysNOAvty GMAZ5 2YZW6rQPkY uCvcI 3qL81oF+2G Yy14Q r2S9a/sMaY NcBs+ bSg5K1N9IS GgKKi e2x+v1EQCL E1xuA 4AEDFaJTs3 zyKLd SpZCJsqg/s fpttJ /yRpeZO3Ot TrM48 qDTZ1E1HIG RyR8z aB11VdXP9y Glbjr RLlOwGS5Ex 3Ije4 kjiT5T5YLM ofpoq ygECTdSUJ1 aDx3E MfGbYSl9rx IZDuz zsZMTTPjSb 6UpVO 8GPhY9xmMY OT6Nr 02CBsZxeuC RlNO1 okMt/IoENE 5045F 2biR/UmYhk +yGuC yYGz3V5wbu 6b1YP kue+iYk9/x ug5kq w4Kkzg9ryr E8A5s JPAaEa5PcE BJ7Pv C0zOw+t0zd /v1MF VPoJTarvAx 4agLS NKVw3riCZ/ ZxlEc Bq5TGjhtBE 8q1Wo KsV1IVuESW La769 oEFFAXwKgQ aIUYx BcQCbUFSnR v/0j0 6P3/BC1h6W f0O0o jU9y9o54XL 4PxGJ ajc4yCi8id gaipz 2heGPiTNjL HOxgE xfzMfoFH0p mbk+p LhSlus25on ZO5xO YwEYoRVoub bkuLq 7Mkeu59B+x P04q6 oo7UW4A6hl Qg+t1 1lv4Y/7MEm wgkJw mMGPta9IRY 1atzl yc3IXDlLIn fXCv3 B/wT0HGdso U/Lev kSr+1RLxsU x6VNK 7D4Cw58uUP rS/jw cicdupSpbX zqBeM X3W/pRXtqj pmrcB no/j8GBwN2 EwT8X kr020MfI4/ hYCWN vRV+HdlhXq wvnSQ D+FgY23CIK 6gvjT usEDR0vbSL 7OPt7 OJqZHTovdz NyjcH j4Wboq42vZ HOgyJ 1QVntkd1GM 4KHoo yAaM4ifP2H pdP2u 4s9xlthVh8 hP7/u eJQITArDX5 VqTDG 4ciGIkDPKJ VGjfd NPF8nWtGhF JDLYK sfuZcn9CdN AuurX P091Sy2Y6D OyyPV mXg89YZvYN lRud2 wIrIaj7yRe 0rV3i UR2YqlM8Tw HOZ6I 1r8YbtQnTU qcqHE J4h8+GpUeD Fzpgf bvnp0uEF80 L3lVd 2jc5j3iHxv LXKnD lCsn7mwd3v LKIbS g7uYlLoZUb y5Jmz kIrcAC4lnu d0868 LDkBnneXHa MXzMw e6Gk5qSS3i JctZ/ o/5r1GvTOP kyRbL YPTm2qzPZA Lk4PC TXyk19pBLL QC0JT GRmQuw6Wa/ cKIF7 8oTWWfhR8y JS9JS Wl7+vKmtfG vctlC ATt8Yjo2h+ msxwh KwQUnFFx2Q k6bw7 9M+cevhCVf Ev0x+ 5ewplbmRzd HJlYW 6KWF8uu1Fk CjE5I MOfy3CfCna 8L05h bWUvSGVPYi 9TdWJ 4pVAcW8L0a GUxL1 D4zNCqRh2z dC9CY CStOf4ozR9 IZWx2 LFUrO6YsD0 JsaXF 3LE4NtjNmV GluZy 6GtP7EabCx RW5jb 2Rpbmc+Pgp lbmRv YmoKMTcgMC BvYmo KPDwvTmFtZ S9IZU QaX7J5UoN5 cGUvV HlwZTEvVHl wZS9G i474Z1Abs3 VGb25 8I7douIInk GljYS 7Wq5pvX8Rx Y29ka D9oT0bzmfG uc2lF bmNvZGluZz 4+CmV eAU7byoqvW CAwIG 9tpxn4NN4V YW1lL 1hpxVVkZ1E idHlw HB3NlOFmOA 9UeXB eJ1NmtvKbJ mFzZU ZvbnQvSGVs dmV0a RXeE9WeH55 kaW5n T8bifaXxn6 lFbmN vZGluZz4+C mVuZG 4lerh8LNCf b2JqC mc8Jz1USY1 kb2Jq CjUgMCBvYm oKPDw vRGVzdHMgM jEgMC PQHp3IEW5n b2JqC oXzACBvj3P qCjw8 X2MdHJRbXY BSL1h BFzGzHgO3B TAgbn VsbF0+Pgpl bmRvY moKMjMgMCB vYmoK PDwvRFsxNS AwIFI dSTyoHRM4E DcwOC BudWxsXT4+ CmVuZ O6pgubdVUO wIG9i qnn9BM8PFg E1IDA aJe4AOPrhW zYgNj U1ZI44hUeg Pj4KZ K1nr9UqMfX xIDAg l6UvIgk0D9 5hbWV jTiouG9OjA jhiMG ChWHHhOP67 ZmZiL ThmNmUtOWU 0NDY3 BTg6GAcwXG AyMiA wIFIoTUtNR y1QaH jwwFEwOH5v Q29uc 3VsdCkgMjM gMCBS ID16V6PlID JiMi1 xWHZ9CLPyT DctOD D4GM59JFIn NzYwY 2ZlMTcpIDI 0IDAg Ul0+Pgplbm RvYmo KMTAgMCBvY moKPD wvRGVzdChN S01HL EJxtSIcD3h hbiBD k80yeNd7LG 9QYXJ lbnQgNiAwI FIvVG p7oRM6ScEh ZjAwN UFkPQT1JKE 3OTAw JtRcKVR9WX A2MzA wNjkwMDYxM DA2ZT AwMjAwMDQz MDA2Z jAwNmUwMDc zMDA3 NTAwNmMwMD c0Pj4 +DnQpTF4qn goyNS GlKS5ragx6 PC9Nb 2REYXRlKEQ 6MjAy BUQ2KIYbXm EyMzA tMDQnMDAnK S9Dcm VhdGlvbkRh dGUoR DoyMDIwMDQ xMDEy MTIzMCstNC cwMCc aU2Gjw2S7Q 2VyKE liZXggUERG IENyZ AZ5x8WmNG0 5LjAu MTUvODQzOC BbSkF XVX1GM6X1K G1vZG lmaWVkIHVz aW5nI WzXCOg1YUY uMS43 UZO3RNQMI7 hUKT4 +HnJbNN4te gp4cm VmCjAgMjYK MDAwM DAwMDAwMCA 2NTUz NSBmIAowMD AwMDA yLVW9ACWsV DAwIG 4gCjAwMDAw MDAxM DMgMDAwMDA gbiAK MDAwMDAwMD E3OSA wMDAwMCBuI AowMD AwMDAwMzE0 IDAwM MExZI1nAkF wMDAw MTAyNjEgMD AwMDA gbiAKMDAwM DAwMD B0RBPkOWFt MCBuI AowMDAwMDA wNDI3 IDAwMDAwIG 4gCjA wMDAwMTAyN DEgMD AwMDAgbiAK MDAwM FPoXGS0BVW wMDAw MCBuIAowMD AwMDE kGVx6LFYsC DAwIG 4gCjAwMDAw MDA1N DMgMDAwMDA gbiAK MDAwMDAwMD U3OCA wMDAwMCBuI AowMD AwMDAzMjQ3 IDAwM FFmMI3uOvK wMDAw HHK0BnPeBL AwMDA gbiAKMDAwM DAwNz czOCAwMDAw MCBuI AowMDAwMDA 4NDI4 IDAwMDAwIG 4gCjA wMDAwMTAwM zggMD AwMDAgbiAK MDAwM SQsVNT9BfP wMDAw MCBuIAowMD AwMDA 5OTMxIDAwM DAwIG 4gCjAwMDAw MDgxM zkgMDAwMDA gbiAK MDAwMDAxMD QzNSA wMDAwMCBuI AowMD AwMDEwMjk0 IDAwM MDtLN9xVeB wMDAw MTAzNDEgMD AwMDA gbiAKMDAwM DAxMD M2UOXlWFXw MCBuI AowMDAwMDE wNzMw IDAwMDAwIG 4gCnR yYWlsZXIKP DwvSW 5mbyAyNSAw IFIvS OFnFvllG7Q 4MzJm MhSaHVO3PS ExNjl qJlK2HPQwT 2VhYz GoTp78KpDz YTM2N pB8TEVwWfC mYjMz QIEjF9ZcX0 UzYTA 4ODM+XS9Sb 290ID BaDFEXS9Ej emUgM jY+PgpzdGF ydHhy SIKZKAG9DO AKJSV FT0YK ID Date Data Source [id number] 08/12/2019 03:36:00 PM EDT formerly [facility] Name Value Range Interpretation Code Description Data Migdalia rce(s) Supporting Document(s ) [id number] Negative [address] Test Performed by: [facility] Department of Pathology and Laboratory [address] [place], [place] [id number] WGNU# [id number] Colten Guzman MD, Director CD:[id number] [facility] ID Date Data Source [id number] 08/04/2019 12:22:00 AM EDT [facility] [id number]} [facility] Patient: [facility]: [id number] Age: 63 years Sex: Female : 1955 [...] in pt chart Ebony Pettit [address] [place] [address] 12 [id number] [place] PPOAPRIL [id number] signed by Layton Allen MD 08/04/2019 00:22 EDTElectronically signed by Daneshvar, Abdoulaye 08/03/2019 17:54 EDTElectronically signed by Daneshvar, Abdoulaye 08/03/2019 18:11 EDT Name Value Range Interpretation Code Description Data Migdalia rce(s) Supporting Document(s ) ID Date Data Source [id number] 08/03/2019 11:46:00 AM EDT [facility] Patient Name: LUZMARIAAugust SMRN: [id number] General DiagnosticACCESSION EXAM DATE/TIME PROCEDURE ORDERING PROVIDER [id number] 08/03/2019 11:03 EDT XR Chest Portable Violeta [...] Supporting Document(s ) ID Date Data Source [id number] 08/04/2019 10:55:00 AM EDT [facility] Name Value Range Interpretation Code Description Data Migdalia rce(s) Supporting Document(s ) Hep B Core NA [facility] Test performed by:[employer] [place], [place] [address]YexoxwcvJose A Land M.D. ID Date Data Source [id number] 08/04/2019 08:51:00 AM EDT [facility] Name Value Range Interpretation Code Description Data Migdalia rce(s) Supporting Document(s ) Hep B Core NA [facility] Test performed by:[employer] [place], [place] [address]JetfuhhvJose A Land M.D. ID Date Data Source [id number] 08/03/2019 05:07:00 PM EDT [facility] Name Value Range Interpretation Description Data Sup porting Code Source(s) Document(s ) Hep C Ab. Non Reactive [facility] Test performed on the Siemens ADVIA Cent aur XP using a diagnostic immunoassay. ID Date Data Source [id number] 08/03/2019 05:06:00 PM EDT [facility] Name Value Range Interpretation Description Data Sup porting Code Source(s) Document(s ) HIV Non Reactive [facility] 1/2,[address] This test was performed on the [...] permitted by law ID Date Data Source [id number] 08/03/2019 12:36:00 PM EDT No [facility]alt [facility] Name Value Range Interpretation Description Data Sup porting Code Source(s) Document(s ) Glucose Lvl 121 65-99 [place] mg/dL [facility] BUN 16.1 6.0-20.0 [place] mg/dL [facility] Creatinine 0.73 0.40-1.0 [place] mg/dL 0 [facility] BUN/Creat 22.1 7.0-29.0 [place] Ratio ratio [facility] Sodium Lvl 138 136-145 [place] mmol/L [facility] Potassium Lvl 4.2 3.5-5.1 [place] mmol/L [facility] Chloride 103 98-107 [place] mmol/L [facility] CO2 25 23-29 [place] mmol/L [facility] AGAP 10 5-15 [facility] Calcium Lvl 9.4 8.6-10.0 [place] mg/dL [facility] Total Protein 6.9 6.0-8.3 [place] gm/dL [facility] Albumin Lvl 4.5 3.5-5.0 [place] gm/dL [facility] Glob 2.4 2.0-4.5 [place] gm/dL [facility] A/G Ratio 1.9 1.0-2.2 [place] ratio [facility] Bili Total 0.5 0.3-1.2 [place] mg/dL [facility] Alk Phos 63 IU/L 38-126 [place] [facility] AST 19 IU/L 15-41 [place] [facility] ALT 14 IU/L 7-40 [facility] ID Date Data Source [id number] 08/03/2019 12:29:00 PM EDT [facility] Added by Discern Rule [id number] Name Value Range Interpretation Code Description Data Migdalia rce(s) Supporting Document(s ) eGFR-AA >90 >=60 [facility] mL/min/1.[address] The CKD-EPI equation for non- Breann [...] Mild decrease* G3a 45-59 Mild to moderate miwnridiZ7c 30-44 Moderate to s evere decreaseG4 15-29 Severe decreaseG5 14 or less Kidney fa ilure eGFR-ELIZABETH 81 mL/min/1.73m2 >=60 [facility] The CKD-EPI equation for non- Breann [...] Mild decrease* G3a 45-59 Mild to moderate arrcihwhA5m 30-44 Moderate to s evere decreaseG4 15-29 Severe decreaseG5 14 or less Kidney fa ilure ID Date Data Source [id number] 08/03/2019 12:24:00 PM EDT [facility] Name Value Range Interpretation Description Data Sup porting Code Source(s) Document(s ) Hep C Ab. Non Reactive [facility] Test performed on the Siemens ADVIA Cent aur XP using a diagnostic immunoassay. ID Date Data Source [id number] 08/03/2019 12:21:00 PM EDT [facility] Name Value Range Interpretation Description Data Sup porting Code Source(s) Document(s ) HIV Non Reactive NA [facility] 1/2,p24 [facility] This test was performed on the Siemens A Wedding Realityia Centaur XP using a two-wash antigen/antibody sandwich [...] permitted by law ID Date Data Source [id number] 08/03/2019 11:50:00 AM EDT [facility] Name Value Range Interpretation Code Description Data Migdalia rce(s) Supporting Document(s ) TSH 1.00 0.34-5.60 NO [facility] mcIU[facility] ID Date Data Source [id number] 08/03/2019 11:36:00 AM EDT [facility] Name Value Range Interpretation Description Data Sup porting Code Source(s) Document(s ) Salicylate Lvl <4.0 4.0-29.9 LO [facility] mg/dL [facility] ID Date Data Source [id number] 08/03/2019 11:36:00 AM EDT [facility] Name Value Range Interpretation Code Description Data Migdalia rce(s) Supporting Document(s ) Ethanol Lvl 0-9 [facility] Result created by Discern rule. ID Date Data Source [id number] 08/03/2019 11:35:00 AM EDT [facility] Name Value Range Interpretation Description Data Sup porting Code Source(s) Document(s ) Acetaminoph <10.0 10.0-30. [place] Lvl mcg/mL 0 [facility] ID Date Data Source [id number] 08/03/2019 11:35:00 AM EDT [facility] Name Value Range Interpretation Code Description Data Supporting Source(s) Document(s ) Troponin- <0.03 <=0.05 [facility] ID Date Data Source [id number] 08/03/2019 11:32:00 AM EDT [facility] Name Value Range Interpretation Code Description Data Migdalia rce(s) Supporting Document(s ) Ammonia 27 mcmol/L 11-35 [facility] ID Date Data Source [id number] 08/03/2019 11:02:00 AM EDT [facility] Name Value Range Interpretation Description Data Sup porting Code Source(s) Document(s ) Neut Auto 75.7 % 50.0-80.0 [facility] Lymph Auto 12.7 % 14.0-44.0 [facility] Turner Auto 10.5 % 0.0-12.0 [facility] Eos Auto 0.5 % 0.0-7.0 [facility] Baso Auto 0.6 % 0.0-3.0 [facility] Neut 3.9 2.0-8.4 [place] Absolute x10(3)/[facility] Lymph 0.7 0.6-4.8 [place] Absolute x10(3)/[facility] Turner 0.5 0.0-1.1 [place] Absolute x10(3)/[facility] Eos Absolute 0.0 0.0-0.5 [place] x10(3)/[facility] Baso 0.0 0.0-0.3 [place] Absolute x10(3)/[facility] ID Date Data Source [id number] 08/03/2019 11:02:00 AM EDT [facility] Name Value Range Interpretation Description Data Sup porting Code Source(s) Document(s ) WBC 5.1 4.0-10.5 [place] x10(3)/[facility] RBC 4.05 3.80-5.20 [place] x10(6)/[facility] Hgb 12.9 11.4-15.1 [place] gm/dL [facility] Hct 37.7 % 36.0-46.0 [facility] MCV 93 fL 80-98 [facility] MCH 32.0 pg 26.0-34.0 [facility] MCHC 34.3 32.0-36.0 [place] gm/dL [facility] RDW 13.4 % 11.0-15.0 [facility] Platelet 266 150-400 [place] x10(3)/[facility] MPV 8.5 fL 8.5-13.0 [facility] ID Date Data Source [id number] 08/03/2019 11:32:00 AM EDT [facility] Name Value Range Interpretation Description Data Sup porting Code Source(s) Document(s ) UA Color Yellow [facility] UA Appear Clear [facility] UA pH 5.0-8.0 [facility] UA Spec Grav 1.015 1.005-1.030 [facility] UA Glucose Negative [facility] UA Ketones Negative [facility] UA Urobilinogen 0.2-1.0 [facility] UA Bili Negative [facility] UA Blood Negative [facility] UA Protein Negative [facility] UA Nitrite Negative [facility] UA Leuk Est Negative [facility] ID Date Data Source [id number] 08/03/2019 11:31:00 AM EDT [facility] Name Value Range Interpretation Description Data Sup porting Code Source(s) Document(s ) U Amph Not Detected NA [facility] Result created by Discern rule.Substance of abuse cutoff levels:Amphetamine...................... .....1000 ng/mlBarbiturate........................ ....200 ng/mlBenzodiazepine..................... ....200 ng/mlCannibinoid........................ .....50 ng/mlCocaine............................ ....300 ng/mlOpiates............................ ....300 ng/mlPhencyclidine (PCP).....................25 ng/mlMethad one..............................300 ng/mlPropoxyphene....................... ....300 ng/mlPlease note: This is a urine screening test only.Positive results are not confirmed by a secondary method.Unconfirmed screening results are to be used only for medical purposes. U Yasemin Scr Not Detected [facility] Result created by Discern rule. U Benzodia Scr Not Detected [facility] Result created by Discern rule. U Cannab Scr Not Detected [facility] Result created by Discern rule. U Cocaine Scr Not Detected NA [facility] Result created by Discern rule. U Opiate Scr Not Detected [facility] Result created by Discern rule. U Phencyclidine Not Detected [facility] Result created by Discern rule. U Propoxyphene Not Detected [facility] Result created by Discern rule. U Methadone Not Detected [facility] Result created by Discern rule. ID Date Data Source [id number] 08/03/2019 10:20:00 AM EDT [facility] Patient Name: LUZMARIA AUGUST SMRN: [id number] Computed TomographyACCESSION EXAM DATE/TIME PROCEDURE ORDERING PROVIDER [id number] 08/03/2019 10:[address] Head WO Zen Edwards (Verified) HReason For Exam(CT Head WO ) [...] Supporting Document(s ) ID Date Data Source [id number] 08/07/2019 09:32:00 AM EDT [facility] [id number] Patient: BG DUTTA S Age: 63 [...] been torturing me in my dogs. Anni tomás is a poor historian, she seems paranoid. [...] Family/ Social History Medical history: ResolvedFrozen shoulder ([id number]): Resolved.. Surgical history: removal of growth in [...] 75.7 % Lymph Auto 12.7 % LOW [place] Auto 10.5 % Eos Auto 0.5 % B aso Auto 0.6 % Neut Absolute 3.9 x10(3)/mcL Lymph Absolute 0.7 x10(3)/mc L [place] Absolute 0.5 x10(3)/mcL Eos Absolute 0.0 x10(3)/mcL [...] Medically cleared, Patient care transitioned to: A jvaad LAUREN, Layton Biggs, Patient will need inpatient psych admission. Will be alejandro sferred to [facility]. I personally saw and examined [...] reg 08/03/2019 09:57:52 Comment by: Ebony Pettit c onsent from poa/ verf info ins from prev/ crime rosales per poa /papers put i n pt chart Ebony snyder [id number] [id number] [place] PPOAPRIL Z [id number] signed by Sherrell Mcdaniel DO 08/07/2019 09:32 EDTElectronically signed by Charissa LEON [facility] 08/03/2019 15:44 EDTElectr onically signed by Charissa [facility], [facility] 08/03/2019 15:45 EDT Name Value Range Interpretation Code Description Data Migdalia rce(s) Supporting Document(s ) ID Date Data Source [id number] 08/03/2019 09:37:00 AM EDT [facility] [id number]} [facility] Patient: BG DUTTA Age: 63 years Sex: Female : 1955 Associated Diagnoses: None Author: Nimo LOPEZ, Juan Carlos Deluna Basic Information Vital Signs Vital Signs 08/03/2019 9:30 EDT Temp erature Oral 98.4 DegF Systolic Blood Pressure 122 mmHg Diastolic Blood Press ure 77 mmHg Mean Arterial Pressure, Cuff 92 mmHg Heart Rate Monitored 79 bpm . Basnyla modi Oxygen Information 08/03/2019 9:30 EDT SpO2 [...] Supporting Document(s ) ID Date Data Source [id number] 07/24/2019 01:44:00 PM EDT [facility] Name Value Range Interpretation Description Data Sup porting Code Source(s) Document(s ) Lacosamide Lvl [facility] Reference Range:Expected concentrations of lacosamide in patientsreceiving recommended daily dosages: Up to15.0 mcg /mL.Toxic range not establishedThis test was developed and its analytical performance characteristics have been determined by [facility]. I t has not been cleared or approved by the USFood and Drug Administration. This ass ay has been validatedpursuant to the CLIA regulations and is used for clinicalpurp oses.This test performed by:[facility] [place] [address] ID Date Data Source [id number] 07/22/2019 03:27:00 AM EDT [facility] Name Value Range Interpretation Description Data Sup porting Code Source(s) Document(s ) Zonisamide Lvl 10.0-40.0 [facility] This test was developed and its analytic al performancecharacteristics have been determined by [facility] Kiarra Martinez. It has not been cleared or approved by the USFood and Drug Administ ration. This assay has been validatedpursuant to the CLIA regulations and is used for clinicalpurposes.This test performed by:[facility] [place] [address] ID Date Data Source [id number] 07/19/2019 08:37:00 AM EDT [facility] Name Value Range Interpretation Code Description Data Migdalia rce(s) Supporting Document(s ) MMA Qnt 87-318 [facility] Test performed by:[facility] Felipe [place], [place] Cindy Land M.D. Homocysteine Lvl <10.4 NA [facility] Homocysteine is increased by functional deficiency of folateor vitamin B12. Testing for methylmalonic aciddifferentiates bet ween these deficiencies. Other causesof increased homocysteine include renal charlotte lure, folateantagonists such as methotrexate and phenytoin, andexposure to nitrous ox walker.Nyla Puri, et al. Karol Assistant Hall Director Med. 1999;131(5):331-9.Test performed by:[facility] [place], [place] Cindy Land M.D. ID Date Data Source [id number] 07/16/2019 10:53:00 AM EDT [facility] Name Value Range Interpretation Description Data Sup porting Code Source(s) Document(s ) Hemoglobin A1C 5.6 % <=5.6 [facility] 5.7-6.4% Pre-diabetes> 6.4% Diagno stic for diabetes(Summarized from [place] [employer] 2018 Standards)This test was performed using the [employer] Hb 9210 Analyzer utilizing Boronate Affinity. ID Date Data Source [id number] 07/16/2019 02:28:00 AM EDT [facility] Name Value Range Interpretation Description Data Sup porting Code Source(s) Document(s ) Vitamin D 65.4 30.0-100. [facility], Total ng/mL 0 [facility] Vitamin D is an immunoassay performed on the [employer]oster[employer] XP ID Date Data Source [id number] 07/15/2019 10:48:00 PM EDT [facility] Name Value Range Interpretation Description Data Sup porting Code Source(s) Document(s ) Vitamin B12 507 pg/mL 180-914 [facility] ID Date Data Source [id number] 07/15/2019 10:15:00 PM EDT [facility] Name Value Range Interpretation Description Data Sup porting Code Source(s) Document(s ) Neut Auto 77.4 % 50.0-80.0 [facility] Lymph Auto 14.3 % 14.0-44.0 [facility] Turner Auto 6.6 % 0.0-12.0 [facility] Eos Auto 1.0 % 0.0-7.0 [facility] Baso Auto 0.7 % 0.0-3.0 [facility] Neut 6.5 2.0-8.4 NO [place] Absolute x10(3)/[facility] Lymph 1.2 0.6-4.8 NO [place] Absolute x10(3)/[facility] Turner 0.6 0.0-1.1 NO [place] Absolute x10(3)/[facility] Eos Absolute 0.1 0.0-0.5 NO [place] x10(3)/[facility] Baso 0.1 0.0-0.3 NO [place] Absolute x10(3)/[facility] ID Date Data Source [id number] 07/15/2019 10:15:00 PM EDT [facility] Name Value Range Interpretation Description Data Sup porting Code Source(s) Document(s ) WBC 8.4 4.0-10.5 NO [place] x10(3)/[facility] RBC 4.21 3.80-5.20 NO [place] x10(6)/[facility] Hgb 13.7 11.4-15.1 NO [place] gm/dL [facility] Hct 39.4 % 36.0-46.0 NO [facility] MCV 94 fL 80-98 NO [facility] MCH 32.5 pg 26.0-34.0 [facility] MCHC 34.7 32.0-36.0 NO [place] gm/dL [facility] RDW 13.7 % 11.0-15.0 [facility] Platelet 263 150-400 NO [place] x10(3)/[facility] MPV 9.7 fL 8.5-13.0 [facility] ID Date Data Source [id number] 07/15/2019 10:00:00 PM EDT [facility] Name Value Range Interpretation Description Data Sup porting Code Source(s) Document(s ) Glucose Lvl 95 mg/dL 65-99 NO [facility] BUN 23.1 6.0-20.0 [place] mg/dL [facility] Creatinine 0.84 0.40-1.0 NO [place] mg/dL 0 [facility] BUN/Creat 27.5 7.0-29.0 NO [place] Ratio ratio [facility] Sodium Lvl 140 136-145 NO [place] mmol/L [facility] Potassium Lvl 3.9 3.5-5.1 NO [place] mmol/L [facility] Chloride 107 98-107 NO [place] mmol/L [facility] CO2 22 23-29 LO [place] mmol/L [facility] AGAP 11 5-15 [facility] Calcium Lvl 9.8 8.6-10.0 NO [place] mg/dL [facility] Total Protein 6.5 6.0-8.3 NO [place] gm/dL [facility] Albumin Lvl 4.6 3.5-5.0 NO [place] gm/dL [facility] Glob 1.9 2.0-4.5 LO [place] gm/dL [facility] A/G Ratio 2.4 1.0-2.2 HI [place] ratio [facility] Bili Total 0.5 0.3-1.2 NO [place] mg/dL [facility] Alk Phos 86 IU/L 38-126 [facility] AST 17 IU/L 15-41 [facility] ALT 14 IU/L 7-40 [facility] ID Date Data Source [id number] 07/15/2019 09:54:00 PM EDT [facility] Added by Discern Rule [id number] Name Value Range Interpretation Code Description Data Migdalia rce(s) Supporting Document(s ) eGFR-AA 84 >=60 NO [facility] mL/min/1.[address] The CKD-EPI equation for non- Breann [...] Mild decrease* G3a 45-59 Mild to moderate [id number] 30-44 Moderate to s evere decreaseG4 15-29 Severe decreaseG5 14 or less Kidney fa ilure eGFR-ELIZABETH 69 mL/min/1.73m2 >=60 NO [facility] The CKD-EPI equation for non- Breann [...] Mild decrease* G3a 45-59 Mild to moderate tsvownjhD2l 30-44 Moderate to s evere decreaseG4 15-29 [...] - 12:26:18 PM EDT tobacco tobacco (finding) [facility] (finding) [facility] Smoking 08/03/2019 Never smoked completed Never smoked [place] [facility] - 12:26:18 PM EDT tobacco tobacco (finding) [facility] (finding) [facility] Vital Signs ID Date Data Source UNK Name Value Range Interpretation Code Description Data Source(s) Diastolic blood 82 mm[Hg] 60-90 mmHg Normal (applies to 82 mm[Hg] N [facility] pressure non-numeric results) - [facility] Systolic blood 124 mm[Hg] 90-130 mmHg Normal (applies to 124 mm[Hg] [facility] pressure non-numeric results) - [facility] Oxygen therapy [place] [Minimum Data - [place] Set] [facility] Center Oxygen saturation 100 % 94-100 % Normal (applies to 100 % [facility] in Blood non-numeric results) - [facility] Pulse oximetry [facility] Diastolic blood 62 mm[Hg] 60-90 mmHg Normal (applies to 62 mm[Hg] [facility] pressure non-numeric results) - [facility] Systolic blood 116 mm[Hg] 90-130 mmHg Normal (applies to 116 mm[Hg] [facility] pressure non-numeric results) - [facility] Respiratory rate 18 br/min 14-20 Normal (applies to 18 br/min [facility] br/min non-numeric results) - [facility] Heart rate 64 bpm 60-100 bpm Normal (applies to 64 bpm [facility] non-numeric results) - [facility] Oral temperature 97.1 [degF] 96.4-99.1 Normal (applies to 97.1 [degF ] [facility] DegF non-numeric results) - [facility] Oxygen therapy [facility] [Minimum Data - [place] Set] Hospital Center Oxygen saturation 100 % 94-100 % Normal (applies to 100 % [facility] in Blood non-numeric results) - [facility] Pulse oximetry Center Diastolic blood 71 mm[Hg] 60-90 mmHg Normal (applies to 71 mm[Hg] [facility] pressure non-numeric results) - [facility] Systolic blood 109 mm[Hg] 90-130 mmHg Normal (applies to 109 mm[Hg] [facility] pressure non-numeric results) - [facility] Respiratory rate 18 br/min 14-20 Normal (applies to 18 br/min [facility] br/min non-numeric results) - [facility] Heart rate 67 bpm 60-100 bpm Normal (applies to 67 bpm [facility] non-numeric results) - [facility] Oral temperature 97.5 [degF] 96.4-99.1 Normal (applies to 97.5 [degF ] [facility] DegF non-numeric results) - [facility] Respiratory rate 18 br/min 14-20 Normal (applies to 18 br/min [facility] br/min non-numeric results) - [facility] Oral temperature 97.7 [degF] 96.4-99.1 Normal (applies to 97.7 [degF ] [facility] DegF non-numeric results) - [facility] Oxygen saturation 97 % 94-100 % Normal (applies to 97 % [facility] in Blood non-numeric results) - [facility] Postductal by [place] P[facility] oxim[facility]ter Heart rate 62 bpm 60-100 bpm Normal (applies to 62 bpm [facility] non-numeric results) - [facility] Diastolic blood 74 mm[Hg] 60-90 mmHg Normal (applies to 74 mm[Hg] N [facility] pressure non-numeric results) - [facility] Systolic blood 110 mm[Hg] 90-130 mmHg Normal (applies to 110 mm[Hg] N [facility] pressure non-numeric results) - [facility] Oxygen therapy [facility] [Minimum Data - [place] Set] [facility] Oral temperature 98.1 [degF] 96.4-99.1 Normal (applies to 98.1 [degF ] [facility] DegF non-numeric results) - [facility] Oxygen saturation 95 % 94-100 % Normal (applies to 95 % [facility] in Blood non-numeric results) - [facility] [place] P[facility]xim[facility] Heart rate 75 bpm 60-100 bpm Normal (applies to 75 bpm [facility] non-numeric results) - [facility] Mean blood 80 mm[Hg] 80 mm[Hg] [facility] pressure by - [place] Noninvasive [facility] Diastolic blood 67 mm[Hg] 60-90 mmHg Normal (applies to 67 mm[Hg] N [facility] pressure non-numeric results) - [facility] Systolic blood 106 mm[Hg] 90-130 mmHg Normal (applies to 106 mm[Hg] N [facility] pressure non-numeric results) - [facility] Oxygen therapy [facility] alth [Minimum Data - [place] Set] [facility] Respiratory rate 18 br/min 14-20 Normal (applies to 18 br/min [facility] br/min non-numeric results) - [facility] Oral temperature 98.4 [degF] 96.4-99.1 Normal (applies to 98.4 [degF ] [facility] DegF non-numeric results) - [facility] Oxygen saturation 99 % 94-100 % Normal (applies to 99 % [facility] in Blood non-numeric results) - [facility]ductal by [place] [facility]xim[facility] Heart rate 79 bpm 60-100 bpm Normal (applies to 79 bpm [facility] Health non-numeric results) - [facility] Mean blood 92 mm[Hg] 92 mm[Hg] [facility] pressure by - [place] Noninvasive [facility] Diastolic blood 77 mm[Hg] 60-90 mmHg Normal (applies to 77 mm[Hg] N [facility] pressure non-numeric results) - [facility] Systolic blood 122 mm[Hg] 90-130 mmHg Normal (applies to 122 mm[Hg] N [facility] pressure non-numeric results) - [facility] Respiratory rate 16 br/min 14-20 Normal (applies to 16 br/min [facility] br/min non-numeric results) - [facility] Body mass index 17.6 kg/m2 17.6 kg/m2 [facility] emeterio (BMI) [Ratio] - [facility] Body weight 46.75 kg 46.75 kg [facility] Measured - [facility] Body height [address] [facility] h - [facility] Body mass index 17.6 kg/m2 17.6 kg/m2 [facility] ealth (BMI) [Ratio] - [facility] Oxygen therapy No alth [Minimum Data - [place] Set] [facility] Patient Treatment Plan of Care Planned Activity Planned Date Details Description Data Source (s) Prazosin 1 MG Oral 08/12/2019 11:09:00 [facility] - Capsule AM [facility] olanzapine 10 mg oral 08/12/2019 11:09:00 [facility] - tablet AM EDT [facility] Lorazepam 2 MG Oral 08/12/2019 11:09:00 [facility] - Tablet AM EDT [facility] hydrOXYzine 08/12/2019 11:09:00 [facility] - AM EDT [facility] Vitamin D3 08/03/2019 10:52:00 [facility] - PM EDT [facility] Vitamin D3 08/03/2019 10:52:00 [facility] - PM EDT [facility] zonisamide 100 MG Oral 08/03/2019 04:21:00 [facility] - Capsule PM EDT [facility] zonisamide 100 MG Oral 08/03/2019 04:21:00 [facility] - Capsule PM EDT [facility] clobazam 20 MG Oral 08/03/2019 04:20:00 [facility] - Tablet PM EDT [facility] clobazam 20 MG Oral 08/03/2019 04:20:00 [facility] - Tablet PM EDT [facility] lacosamide 200 MG Oral 08/03/2019 04:19:00 [facility] - Tablet PM EDT [facility] lacosamide 200 MG Oral 08/03/2019 04:19:00 [facility] - Tablet PM EDT [facility]
[2020-02-23] MEDS ORDERED: SUCCINYLCHOLINE CHLORIDE 200 MG/10 ML SYRINGE ONE (08:43)
[2020-02-23] MEDS ORDERED: PROPOFOL 20 ML ONE (08:43)
[2020-02-23] MEDS ORDERED: KETAMINE HCL 500 MG/10 ML VIAL ONE (08:44)
[2020-02-23 09:52] VITALS: TEMP 98.2
[2020-02-23 12:54] VITALS: BP 133/65; PULSE 88
== END 2020-02-23 10:15 ==
LOC: FECT 06:05
PROVIDERS: ATTEND Psychiatry & Neurology Psychiatry
PROC: GZB4ZZZ Other Electroconvulsive Therapy (ICD-10-PCS; principal; 2020-02-23 08:30)
DX: F33.2 Major depressive disorder, recurrent severe without psychotic features (principal)
CPT/HCPCS: 90870; 94760; C9803; U0003

== ENCOUNTER 2020-03-01 05:42 | Day surgery (SDC) | payer OTHER ==
--- OUTSIDE RECORDS SUMMARY | 2020-02-17 08:15 | XMS ---
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 Range Interpretation Code Description Data Migdalia rce(s) Supporting Document(s ) 2018-nCoV [facility] RNA XXX ELIZABETH+probe- Imp This lab was ordered by [facility] and reported by [employer] ID Date Data Source [id number] 10/14/2019 12:00:00 AM EDT [facility] Name Value Range Interpretation Code Description Data Migdalia rce(s) Supporting Document(s ) 2019-nCoV [facility] RNA XXX ELIZABETH+probe- Imp This lab was ordered by [facility] and reported by [employer] ID Date Data Source [id number] 08/17/2019 08:19:00 AM EDT [facility] Name Value Range Interpretation Description Data Sup porting Code Source(s) Document(s ) Neut Auto 57.1 % 40.0-70.0 NO [facility] Lymph Auto 29.3 % 22.0-44.0 NO [facility] [place] Auto 10.5 % 4.0-11.0 NO [facility] Eos Auto 2.4 % 0.0-8.0 NO [facility] Baso Auto 0.7 % 0.0-3.0 NO [facility] Neut 2.3 1.8-7.7 NO [place] Absolute x10(3)/[facility] Lymph 1.2 1.0-4.8 NO [place] Absolute x10(3)/[facility] [place] 0.4 0.2-1.2 NO [place] Absolute x10(3)/[facility] Eos Absolute 0.1 0.0-0.9 NO [place] x10(3)/[facility] Baso 0.0 0.0-0.3 NO [place] Absolute x10(3)/[facility] ID Date Data Source [id number] 08/17/2019 08:19:00 AM EDT [facility] Name Value Range Interpretation Description Data Sup porting Code Source(s) Document(s ) WBC 3.9 4.5-11.0 LO [place] x10(3)/[facility] RBC 3.39 4.00-5.20 LO [place] x10(6)/[facility] Hgb 10.5 12.0-16.0 LO [place] gm/dL [facility] Hct 31.2 % 36.0-46.0 LO [facility] MCV 92 fL 80-100 [facility] MCH 31.0 pg 26.0-34.0 [facility] MCHC 33.8 31.0-37.0 VINOD [facility] orangemaryellen gm/dL [facility] RDW 13.3 % 11.5-14.5 [facility] Platelet 222 150-350 NO No x10(3)/[facility] MPV 7.8 fL 7.4-10.4 NO [facility] ID Date Data Source [id number] 08/16/2019 08:30:00 AM T [facility] Name Value Range Interpretation Description Data Sup porting Code Source(s) Document(s ) Magnesium 2.1 mg/dL 1.6-2.5 [facility] ID Date Data Source [id number] 08/16/2019 08:30:00 AM T [facility] Added by Discern Rule GLB_ADD_GFR_BMP Name Value Range Interpretation Code Description Data Migdalia rce(s) Supporting Document(s ) eGFR-AA >90 >=60 [facility] mL/min/[address] The CKD-EPI equation for non- [facility] rican individuals is used to [...] Mild decrease* G3a 45-59 Mild to moderate [id number] 30-44 Moderate to s evere decreaseG4 15-29 Severe decreaseG5 14 or less Kidney fa ilure eGFR-ELIZABETH >90 mL/min/1.73m2 >=60 NO Critical access hospital The CKD-EPI equation for non- [place] rican [...] Mild decrease* G3a 45-59 Mild to moderate djcdjrhdW0s 30-44 Moderate to s evere decreaseG4 15-29 Severe decreaseG5 14 or less Kidney fa ilure ID Date Data Source [id number] 08/16/2019 08:30:00 AM EDT [facility] Name Value Range Interpretation Description Data Sup porting Code Source(s) Document(s ) Glucose Lvl 97 mg/dL 65-99 NO [facility] BUN 13.0 7.0-21.0 NO [place] mg/dL [facility] Creatinine 0.66 0.40-1.0 NO [place] mg/dL [address] [facility] BUN/Creat 19.7 7.0-29.0 NO [place] Ratio ratio [facility] Sodium Lvl 136 136-146 NO [place] mmol/L [facility] Potassium Lvl 3.8 3.5-5.1 NO [place] mmol/L [facility] Chloride 104 98-109 NO [place] mmol/L [facility] CO2 23 17-33 NO [place] mmol/L [facility] AGAP 9 5-15 NO [facility] Calcium Lvl 8.3 8.3-10.2 NO [place] mg/dL [facility] ID Date Data Source [id number] 08/15/2019 04:31:00 PM EDT [place] [facility] Name Value Range Interpretation Code Description Data Supporting Source(s) Document(s ) Physician No [id number] QKJeL [facility] - [id number] [place] [id number] [id number] 5cGUv Center Qv2tiB9QHN NlRm9 hlV9DCWl8U XRpY2 UeEJ7mm9Lt bmcvV 4hoJQ7xzET uY29k wP7tDs2MJS 5kb2J qCjIgMCBvY moKPD wvRmlsdGVy L0ZsY VLjOMFgn2A lL0xl hng5hXUjTB 4+c3R yZWFtCnicK +QCAA VpIFuNGH6n c3RyZ WFtCmVuZG9 iagoz TYBvk6KnXm w8L0Z tsLTosd4Qf GF0ZU LhY49jNP3G ZW5nd GggNjk+PnN 0cmVh fXa1hYHP5O rk0o/ INFAwNFAIS eNyCu EyVDAAQkMF I1MLP XNTBQtDPQs jhZBc Vx4UjZFZfG h+Rad qEipRg3bTS yAXAL YyRx4ZAU9p c3RyZ WFtCmVuZG9 iago0 HNXwv5YmCx w8L1B wY8NQt1WlF 1VzZU 5vbmUvTmFt ZXMgN SAwIFIvVHl wZS9D LXWpzY7qJ6 91dGx pbmVzIDYgM CBSL1 SkL4JlNVil MCBSL 1ZpZXdlclB yZWZl zmYpS7TpYL ggMCB BQq1XWA3wi 2JqCj cgMCBvYmoK PDwvS 5jsu9q9DZF gUl0v CXrdWG9OZW dlcy9 Jf2ZcuNZkG 0lUWF CuTm9wBplg Pj4KZ C7vu6YhHbY gMCBv YmoKPDwvQ2 91bnQ vRN5AjGEuf CAxMC AwIFIvTGFz dCAxM CAwIFI+Pgp lbmRv YmoKMTEgMC BvYmo DId7GV0LPM XNlZC AxMiAwIFJd CmVuZ L5wmfniZkK wIG9i tol3HT7GiS x0ZXI vRmxhdGVEZ WNvZG VuOKUyB3Qw IDI1O TYvTiAzPj5 zdHJl PK1XkDfhkx dUU9k Wh8+9N71Qk hCKlN KweYEFPR29 SJEuK jEJEErAkAA iNkRU cERRkaYIMi jggKN DkbEiioUBU bHrBB nG0TOjGNlS SWStG d+8ee/Nm98 f935r r90R0Xwzpo a6AJD 8gwXCTFgJg AyhWB Ip57UAqIek YAcBD UOET9vT5TS zs0IW +NYNyKL50E xsmRP 5W706NjT7+ yrTP4 zBAP+flLlZ IjEAU JiM5/L42Vw ZF8k4 PVecJbdPyZ i2NE3 OMErOIlmCM laTc/ AgI7n2cIRA OfMyh UtYd1GR6oH w5Nwn 3034Cz6SwG AZF+c I+LkyviZjg 3RJhk DGb+SxGXxO NgAok syk8gWNIZk tY5Io GlKh20iE0U jJX/D YU3eZquINJ 8XOzF ouEiSniBkm XFOGj ZMTi+HPz03 ni8XM OX26gSBpFw iZGVk s6LHCXw/8W RR5bR myIjvYODk4 MG0tb u0n8C9d/Ju S93aW XoR/7hlEH/ jD9ld +xT3ToYFmz dn6h2 3uREDk3bSZ u/2Hz WAvAIqyvnU OfXEe unxeUsTiLG crq9z iNSpEj4ciD +jv+p 3Sh3DheY3Z vt3v5 EZ821W2ptX xQ143 tsO0oyYIwI 7icPk M5p+H+B8H/ nUeFh D2GX8BZ5PC RMumT CBMlrVbyBO IBZlC ryV1k0t1W5 P+pNm 5lona+BHQl lgCpS LtZC3nERqj ESAJe 6Xs8C17E9O [place]/nN g6HCyG76u4 L+fVe 1IM0YMfP/j mNHRD G9BwAB1Eb5 WgI0I ABFQAPqQBv oAxPA BLbAEbgAD+ ADAkE oiARxYDHgg hSQAU QgFxSAtaAY lIKtY CeoBnWgETS DNnAY tCSc7KB3Mb 6By2A X3REXGW8qc CnwCs xAEISFyBAV Uod0I EPIHLKFWJA b5AMF QxFQHJQIJU NCSAI VQOugUqgcq obqoW boW+godBq6 AA1Dt 1LHwKZ4IEr HIzAJ psFasBFsBb NgTzg IjoQXwcnwM jgfLo J4bAIsW2yT 7oRPw 0wjPBfDP0C nEYAQ ETqiizARFs JGQpF 4JAkRIauQE qQCaU ZxlY5xZ7yH SJGny FsUBkVFMVB MlAvK MqDN9cFZlG ahNqO qUQdQnag+1 FXUKG zP3DJDAcrx zdHO6 VE6SMfUaDu uRleg d4Ma9BBwOv Q4+hU Fx1TrbTUMH H9MHC YVswKzGbMb 0445h RnGjGGmsVi sOtYc 64oNxXKwYm wxtgp 2FXnJwsU5k n2DI+ R9rOB3N7j1 Togrx FXgWnAncFd wE7gZ vBLeEO+MD8 Xz8Mv xZfhGfA9+C D+Suzy XiW7uUfoPN QiphL uEG3YX1C8o LeEEk EvWITsRwoo C4hlh HPZU7Hmobd iVRSG YkNimBJCFt Ie0nn MVtUj6ox2t GZA9y PSeU0mKzCw 8h3ye /UaAqWCoEK PAUVi vUKHQqXFF4 pohXN AO8MUypyF2 YoXhE cUjxqRJeyU iJrcR DNtJZx3AH9 YbStD MI8TR9LEdS ebNyi /QU5WmBVHX I4kPh UYoo+yhnKG NUhKp MUSA99WDPG upZ6j gNQzOmBdBS aaW0b 2iDtCkVioq dSrRK nkqNynEVKR 2hG9E N0Jv6Gyez+ nX6O1 SiLI4Lcccu 1TbVK 3be9acexvz x1UrU 0gRJ3X8zH0 R91NP Bl8a1iu/TQ GmYaY Vx2Eqx5Qga 8XQOb D8IHT3aswr H59zW yNVKCOA4N2 ju0xz YjFhD5eUFn tKq0j on3WCgcp8w naq9Q /xA1yBKPmi NR6Cz Q+ekzmOGCs OTkc6 zQEQfmlL6s f11Jb y0maE0G5fJ elF6h Vylspk6Bcg s/ST9 Hfq9+lMGOg YhBgU CoDv4VbUUO MMUw1 2G/YavjYyN Yow2G HUZPTJWMw4 wzjdu Xr3dPjNyM0 lm0mB yzRRjyjJNM 91tet eLOqL4OgUh MRsyh 74hcRTof41 HLdAW ThZCiwaLG0 wS05O Qv6ldjtaZL YMtCy 70TH7PJJbN W22z6 dw1bR6evI5 daH3H mySPsWFt18 Pzq62 ENua6sbivB PJc37 pu77lNoL8z bse32 0Z3681sG4Q /wb7X /gNBe8NEzq 1h0tH HSbGy1wNTs 8YKY2 7biSaLV6j5 rXY65 mCL9bFL9Oi Y+RcX pmlvG9mRj0 nG8/j eUemImmm7h lzrXa GkSXvYt82t Unddd 457g/sDD30 PnkeT o5NxmLeb23 HPZ17 WXiKvDq/Xb Gf2Sv Yfe7Amd8yY e9CH4 hPlU+1z31f PN9m3 9LiGr49wvu 8pf7R /kP82/xsBW gHcgO aAqUDHwJWB fUGko LEF4OKZhe6 CRcE9 CTIYLQo8aL vzDec C60nOmsLR8 O2h98 OId4dIrX+O CQ8Lr wl/GGETURD Rv4C6 YMmClgWvIr 0iyyL wFHmKMmT5y xWjE6 Kbo1/HeMeU x0hjr YSBhz0W65t TxHXH Y+Mi34nwhy f6LNy 0jMqBRsW68 foi40 L1ov2y5lhz vvj4E sUlnCVHEtG JMYkt om42cQtSdv TSgKW 8K0p1eW2z5 hOeB2 1Gm8Mcsq/n TyS5J vDgGWr6Dn6 ePJni afBF9kKUOx QLnqf 8k6wsdk1QC duf9i g7Sn24T8nJ mHFUS BGmCfsytTP zMoez vMMIo0KTzB ftXDY iRfL5YKSTn 7K7xT BTg8EReUNw XjKa4 5ZTk/MmNzr 3SJ5y fsMnEBcD4c 3LJ/J 9879egVrBX dFboF xqwkF3dpkP +lXQq qWrelfrry5 aPb7G h77LmYD5uE t/KLQ iRO05aV1mO U+RVt AmnbD5gjhr ixWKR zB8EljgeLz I2ijY JJgb1hpdPS 9LeCU OK41IU5dft +Zuvv lLjEuJZ61m krRls McmsG1QiGf h1uvb 3LcdKFcuzy 8f2x6 jvNZKD6pLk pc7l+ p5VHTWAsyU sEuyS 1oZXNldZVC 1tep9 mTr8CN9RDN utZu2 r6uh6ctqe7 PHY01 leOCoj522o YO/Ne r/6zgajhop 9mH05 +h12Rdw4n1 36url Mz6x97gV+4 X7pgY yByc5Dcn7z mi1lr XCrpHXyYML By994 q8Oswsvis7 e3lx4 ChySHHn+b+ O31w0 GHe4+wjrR9 Z/hdb Vq7i8EL4fu eOdWV 0iXtjusePh p4tLf Oigzje6ql7 x/TPV CeAWB40AsV iaITn 07mn5w+lXX q6enk 79V8C3wnsO k9c60 vvG/wbNDZ8 +d8z5 3p9+w/ed71 /LELz nlKImEn1Dp kcKlz yM5u4kq0Jh oGHQY 1kxbGpt83T e4Znj x73un7boTN va+eu gRs8eOF/JH h61HX m02HjCY7ku v56Fb 8ucn2e10N5 FlzF3 695Z2RaMf4 mvcbf wU6yW0dTZ4 +6j06 2SCEgehc9E EnP2X /8P029YX7T cWEzk BaC7sGsiN4 Jy8/X vh4/EnWk5m nxT8r /5x2sECUj7 94/DI wFTs1/lz0/ NOvm1 +ov9j/0u5l 73TY9 D9EGh5lFjg 8UX9z 4C3rbf+7mH cTM7n qez4uA0c+6 PkY9P Oky1fHv52Z 94Tz+ wplbmRzdHJ lYW0K WK5zn0AfWu EzIDA nm3PbQmw1X 0NvbG 1gM0GvR8Me RGV2a LHqU0IpwS2 IZWln aHQgMjkvU3 VidHl dHH6NyUEhV S9GaW x6WZOsJqbs dGVEZ WNvZGUvVHl wZS9Y N6SvNVZ2R7 dpZHR zIWG3Cl4GD W5ndG ggMjgvQml0 c1Blc kNvbXBvbmV udCA4 Ka1zsDElCZ 0KeJz twTEBAAAAw qD+qW hBD9AEKQBV AB4G+ 2OKjwplbmR zdHJl MV3IWE1lu6 JqCjE 1UBEtp5IwT jw8L0 SndS2iM5Fh Y2VbL 5wJU7Fwh8K kIDEy IUCxQe7wJE VpZ2h 8BWH0P8E6I nR5cG SiNY3fS9Hy Rmlsd PPhV3YqPMP lRGVj e6QcY3F3oR UvWE9 hkvAwuC5OY WNvZG VQYXJtczw8 L0Nvb HVtbnMgMTg yL0Nv xW4rjmUyY0 ByZWR dV0LkdnMaF S9CaX FeKPXdT44l cG9uZ W50IDg+Pi9 XaWR0 aCAxODIvU0 1hc2s gMTMgMCBSL 0JpdH ZALUHPu61h b25lb eEaVP3IdjF lcnBv tIK8XGR7nv VlL0x buxl4cUN3S DQ1Pj 9xwOFbXQ9O eNrtm wlUVEfWx2/ iJHMm 0bhGWRqatW VzwSW OE+PESEKMi iua0T gaYjQRjQIa AiKgQ NN00/vCqoC ANoLs a3YWeeeHGw FlURF QUUFAQJRFY Kq6ka VodbbGK01A d97R4 +t671Xd+tW 9/3vr BC0tvLDCI3 r5x2e lG2d3XEFUu eTElf KHr65/12/X xaRXh IYMnEiO9As 4qOf/ alMo8cK1GC M/NQv 27Wo4XkAX0 zc9NW mZV0/Ps75G kRfLF Mx8FMcIkJr Eoj8X vX0DBltBqZ z+1fe cP9nQKeccB ChRQI eDBDkstb5d uL3+1 1zWk6RuFiN pJZWN Y96/hqbHqw +Gw6S wLR96zdfQJ ZbxM0 394EMHUHTZ 6hCDy P7vWxxwoKX Lc0Cd Qgq3rOkD4T K8rCv 3BjZqbHmam le12v FucQXCet2x 7uRl3 hGppTdrGl5 1/+qb Wr/RY9EgJS D0AkN S5MVF1uHv7 ARQp4 CuMAW7UWM6 5ojYe afADFeYQia fzJT4 aYtDLEwmgx I5ID7 /zUZE/JeZU xzo8E VWs8PoUHow XS6eJ cQb6t92e2O Xja2P UUzIz1zB5W LudVk /To5yR3S9z hyRlQ eigcAEJWpq boXUB mT/DCAwYDr N1f/3 NwWIoWbsRY R2shC 0OehkBOYNc 7/2xg MM4IFd1BcB 9tfcd f2Jt1PJYAl RL/YJ dzqnyrrXVp COPN/ IYxOtp5f53 SOLOMON+6 BL80qL0pXU EaCgk 2NQ8ljxr0b p2ujn WOmIuPrlix Gh+uc W1gnRkGERY QBl+u vv/bJdUaDH k4rIC lvKfNa78m1 h615u CQCFp7kZKc dr60G SGWD9UhNP8 giIFJ dhLRrkh1I+ zGkJM SBq2O81WPL 5/X+F aQ10Rcrk7k 4YUGM tU8YSL1aQ5 UKECH sMETHcGgT6 yKVxP mOsEnv54F0 BRXCk l92Csv+yfO ymJoC KO+mkAeo5H 4vInz dqjPaEgQYV JlrDF Hsl4xO+0cM 90FqQ jrInUHKBqW TQpxt jX8gfvMPoP SPzCJ jhjqXoLIHh 1rD97 lk/kdPRud0 hNS6z gzpNEt96UC 7vNOg ygOhGWHUiL vOa/N C50e4JhJlf SwkUl UYU9C807w7 UiCGX 8+5iSZcTlF gwbhF 5IJZ66Kpnb m+8L9 NOtxh438wG ZtPDU TCLDePtYJL 9B0s8 FceQ7uU3s+ 0/dlF gwIaPbGDCY TBgfr U33D+uoOtZ W298I cfCNNGIZgt I64QW 1KcbQUg2nq Wn3Bh VIOIiI1PH2 w+Xsa 5ZOiZo2Ol0 xxCY6 XCi2yr8hNX 2KTL0 lHCrm3r6+K zrvwn JexSmv7ua0 EvF1f IgEphQ/JV5 nKl1M r4+C4H2Fux +UNKq Awno/OKnmN OJN4Y qcrGLY9W2W mdh4j FPDWV8z58V JM40K eanGG8BLB5 5OGzN 5iWm6yZ2Me BywRk EoB8ohkCwl 1Wb2k SDtiuoc+Bj mkTjl iboKs6ZDb3 TgBID kF5hvzeDS5 p4pMM RR5kfhtYJ6 dwNJM GYL2oD9Afs GLRor 98BBRcgOsd klImv yIRqV9E5pO Q6ifx u/HUuWS6Y5 XBIA1 0ezPEgrAja 8GuvG ZEu8Yu+Joy IzNsW MSyG1kg4Lm eJJr6 buh88Q6Wrh ZiMEp juBDMHhedn 3U9BA +XegtlbA+Q PNN09 3aDCABLHyT dvhEC veS1yfvW68 qBGO8 X7GIBbReN2 aqt9L FuT3FhsTLh 538a/ gDXmlW0xy8 28ZSH JPl9L8obfQ MHYvA t/CIDJzmg+ 8MIdY kx60O+g6Ya iGP6V zB8Zu4MjIl UJFN1 JV8JtpE8QA Wqcj7 3SHQQMY31V 4xOVL 8nNZBdmcOG glspo pWL9jnzvND euDDN FfV2jCwJcD GaCCk r/6Mqm5Sn6 lJJ/A zSYoOB6+0G /DgA1 ZgybmDm1Yv 7fNAD KJMEi6Jtki empGB Eb/uUREEE5 s4YL5 eQlyTCMLI5 8iTo7 +PwASXV676 tfnEK TuE4+l+Wla l+UiC r+Ndaw39Ij FXTZu IIgwyV/rosales E3zIE kvXCM8tUrG YOu1A reimoz48bZ kPWCE 3tjZsFZXeR 60LO8 eA5tlNEu+w qod7E iIwkV+d4TD E6MXO 9UNPkVP+5p vfU3R jy7j/5UkcF RCqSb 8D5wlSBFDv uDczk 6GGCTe2EfQ wNH9r O+vbk6eQ/h 8hAIb bLbMErQUSN VVxxf +ivlXfrUAx Ck2HB SpMrasznYN q02B5 nC+VEZLtDC nbj+o J/8aW0MTi6 8Cwer AxECstrxDJ cApFx i/sp9HP9YP l9I2E 2uQG27f29a XMHyy Ad/janaImW 8Zk3y yrrRo+IHt/ EMsrr kNr4yQTPiq U6/aL Rdu7hk56c0 FH5xR egJYgG4+h9 SXq/C x0n5vL6BA0 XWa3d ZU9VV70ssp oVIkJ lhdVJ8rjTN Yf3X/ tzciGCchlc xGOFn i+DB8TaX8L IGPD1 RrZ1TniQFF 1NiSx Ieg57grnXN pGrt+ 4DgYZMtHJ/ tIzaJ awBHAQ4tS9 UQHEY UtOiTT1OBM 65ENH idWWKZ45l6 VICzc q9jUrzMdg5 JTWS4 r+tbZNtpFg HjVvo T4LaF1pv7u oRkZX 9gjZJ3KzcJ yILuW IvwhFekduL pIq8C P+zzBn3Ax3 4mjoM Io+k50WlLo SIo88 hCAJ5QRBa+ epnXZ 2OvulAYmIF o0Ttu /2CVagfcv5 qMzQ2 OJ6yuy5UWD 5Aruq aCnFSgDoxy QnAEc XNnDrSm6fi vh3Ka KY2qd1X4Wc YJ6fk Vmw+EgmGXO yl/tq FyNf1m6eRa LUTZM xEqDy3x+K9 LV2e6 N0rcmKQ6TH Fkc22 vNc9XFODJN 8y9bt 15P9TNK/Gp kYnOA 482TM9gAuL I1+Cp rnR373uj12 3IgrG cxmyLgLN0m 2jrdg WwQ127wJBg Alamg cqsx36axwN vxAit sIiy6BNsYl D0Uh4 Im+3/mCMnM OcYey VDh45k12Fz V8AkY 8dt9kRCguJ dWdUd qXQggdAN5Y IMSgk YupOdc0WvN AiOaN FRGejyIsQm QWldf J3+tqtuxOX C+D9w 99Ynampa+r NnL97 cblq+7q8yI mYIiR EYLbnJCO+v HURZQ pe+ef7jfd4 L+VFb NGpGRkaQ71 UM+qj k4GtUDa3Si U71wu eq7pB5g0RN IdD2o qM0Z2HKOSl KLyqt VyaBbJAo2l CXJhG AXVKbeOjwX JVpEX mjAKRh4+ei E1pzX 15RJLlnXKC qBapS K877hTq6+S ccizn kYqczxwkUB xFiBD bTeCuSAw5u +0dvb OxFtHhmTkl 97zQ0 dHatAjZL6K Y2J3M WTe6hm7vee 5vk13 w9PWYvDSCv 8DAQ8 WNalgo2ks9 YRoZI uIFrjSI23i FiL5H YcuPSFfXM5 z66/C 2OyS+JCLfO 56X09 CrLMPxatbm Oh6/O AIxG6YQeB9 NzQkd CYd9nGBARG 7i4GG kxUFc0IGfC JH+PP Dz5ZZg4KGd PI8mT z+Wm2hpuxm lyF9b hOFVrcHyjS ocwD0 Z9dPo5+iX0 iJa66 Ei1IQ2KOAJ hZZ4e eQtbzOnRBw U1Vh5 JZJVCjAUlR wI7tI QicaIaEmhB xRoSM IuMktR1GoG sFiMS OmwSe/3R5P kXo0d oErBjoEkOV Xup3I Ml7SosxZGs y2S3K U05pxAVYno kPFnl ZQtmPoWcbX G3mNQ XiHLIH6C7k iyHb0 zR+nwl1br8 2wJlj 3fJAankqV8 AQkzD j4xCxZa4vL xC8gT V0HKPI1ScK 0+hYQ Rdrwz4mbL0 7yzl3 EwA6Uq8mbh tl6mX Msw4rb8Mfn Z1EEB 2PcgHrcG5r YYQqR M0o6GjqaIY oYgZf P2mEFWDAMz rPe6B 97IF5tGxrx ZiOjx g9RKgd1cZ2 eU4TS WlM9lB8m0D m4POM oO9qma95jF ngcoU PjeXwm46Dt t/LGf Dn+Gd2VnVL O+CJS i0FfC8k6YZ lStyS 1yzQzNBN0A Ip/7X YGjkmNOl0F 9yksD SoM4sIlDcu uax6S c/p0sdRN/L FNUXa UjstoyUvxh 4uoDw 9j36Yaq7jh GKyX/ hsRPX+2Nxv k3Wli j7V27vGC0F CtrHh 99dVQgdb1/ aRftQ eTguiFKbvG eUy8K tKAstCLjsk vwR6Z aHEGYJKnwi ejhRG Ztg+TXkN/a xWC3R GLvYyQNqDL 107Ba ZLxM4ojEsZ wAJCH F/Bex6XxLe Z1yMh M+ida2Hua/ LXZ3d oU9c3ogOYJ brBOA yIAZlCvlD6 Tbk0j BypHItGJdK K+sK6 if4J9zMsxs jVK8m PQyvFmIFow 23YJ5 pPn15Xb2s6 Q5goy lSKY1MsX+c 4htff M605j3z5HL 5YA6+ KBzOY60aJX wMY0c KLntgnemkD ZYMKg H3VaiDTUv1 FlrE9 X80K3aVth7 yVpuH abdy1XLeJb uy80j rXApuv+73M LrDyz ZKRM/98S7L agN8j ckqplTQmD8 1YHvO MBMwR/akHh 4AxMJ amfPdmK1W4 rhIye WlhXP46CJ5 puOmx t9idTVw7Uw FAXH/ Vx28RYDEkc q9AXb zuhsEFbceX iIk05 i49h0qTSmV bzQZ5 gzkuKzb/Y9 ra0NK VYn/HGXGl1 1lf/O OcpVqD2FQU Gf0EC M5nUhOOCaM XFR4v jimSxyWB8v DT5Xb U32IbNpwJD wLKBr r/b8QWM0KI fISUl uFwVG9EM70 WhvSE pD76VXa67W A/6/d twLVZq9iQY TL/Oz e+/oXJjugs erzcM VKBTBj8jso 97Q/L h2SnBQt7x+ kQVTX HKYjL2ODZJ OuIJz Ga4ssFIhy0 DGx6Z Wp8BEJ/joq PH+8M 1FfFKPpr0O RApMd Y4OQe1w6xG FvmYj 0zBB9NGb2l 1PHku S69DNdq+oz ppq5G I7AD78VWA3 /SigJ UuNy7uYUru vRP9c azlI+mUX3t 9kfX4 PJbOvzS+0r G1HUt 0DJTcpGptb dlHOT Ta2AOoEKuN business development coordinator+l I2ibcF28o/ Hs3z+ GuSD0yhVOi fx4fP 8mbWlV/XuL eWj8H jwwhyF0BW0 v2dQ6 +WfX/lfvo2 ZtsU0 JTiiVeO/SX UJYyA ZwM2lYU8ms 9r7Is a+xTNzlnNF 37wH3 3S7e7urXil Gddar pF2xWR3cVs Q1+Jm waU0GE4/h0 VO6Ee bOMUQy38H6 rhO97 c9xfObSTPt LX3jt FjoBVTFjpj 7/M1a IiV+8R0Stp a2pbY Z2bVr2wDH+ WvOuw 1gqHTerMk0 r/e8A CPlpUlKBLE jE6p7 N9n74U0j/1 xB8P/ B2GAYdxicu gnJZe Q+fwyz2xSw bOJ1z M31zel/vCq u7VQ8 /bY+yO2/ce lVU2N G8xN1KOQEz ouNt5 XXzTB/UWkV d13Kh 6CEpUnJXos Y6dyG xrf/oWkbeH 5FHf/ Qoz54EYuuo B4Dp+ axqcn0bcYA ms0D/ LPhYfuuJ8H eTtgQ 3J77UTsqS4 CALKb mgwiQLKZEt O8pvS /2bYdE1V4q A552o tOitrmt+sn v8Plv BE7ZfbfoYq dHJlY N8ZNP5zq7F qCjE1 NOTjt7DlTi w8L0d km9EpXJboK y9Ucm Xuy0CworRd Y3kvS SR5sqUbV9u gZmFs k8OhS2OaXI EgMCB XUt9kP71cj GVudH NbMiAwIFIg MTYgM CBSIDMgMCB SXS9U aZLuR9QaG7 UvUmV ef3EjO4KdL DwvQ2 3ah4BXbSKs ZTw8L 4OpUxP6vCC SR0Ig MTEgMCBSPj 4vUHJ nY1YirXEgB 1BERi XpVOM8xKHl SW1hZ 3LHQJ4UeNL nZUMg J2rrCZcuCT 0vRm9 bfFv6X7ypC m8gMT blHVNSL6xm bHYgM NdjAEMPU0v pMCAx JQDjAb3UJQ 9iIDE 2LNLbFb7+L 1hPYm ycH3Y0VO3o bTM1M xI3MCI8WFK gUi90 SfJ7RmAlGJ IwIDA gUj4+Pj4vU GFyZW 50IDkgMCBS L01lZ DjnHq31WaU gMCA2 MTIgNzkyXT 4+CmV gHU3emxd1U DAgb2 MiPay2Y3kg ZHNbM TUgMCBSXS9 UeXBl T7RrR8ZnP4 NvdW5 0IDEvUGFyZ W50ID kvXCMRSr5A ZW5kb 2JqCjIwIDA gb2Jq Ajv2Y1puf7 VwPDw pPu8IfeYfx 3Bhcm HaI3xzB4Ac L0lDQ 4Paw8KuRSX yIDAg Ul0+Pi9TdW J0eXB qR7Cpvg3oZ mlsdG AvC6DjYODz RGVjb 8QpM6Y3qGR vWE9i mlKsqH0NCV RyaXh bMSAwIDAgM SAwID JnX2Zjcz0Q eXBlI QLnThUvv9Z yY2Vz PDwvUHJvY1 NldFs zMOOAG9Bnh HQvSW 1cY4ADO9qn YWdlQ u8LrDZhFIa dL1hP PbdeU9Q9MY 9pbTM 3HoU8RCN6O DAgUj 4+Bz5uJjXz eFswI DAgMTgyIDI 5XS9M XS8qmYpsNT k+PnN 6thOfcYm3b NPPzD I9NZd2PKHT BwARc gLfCmVuZHN 0cmVh bQplbmRvYm oKMTY gMCBvYmoKP DwvRm ezoGFoW7Rb YXRlR YKpg9HaD5s lbmd0 aLTaGMp5Nf 5zdHJ jLD4FoYeLQ Vtv2z YUfu+vILAX G6gVU ndlT/GlrYf ayWyn xbYMgyIztg ZdXF2 Stb9+R5RIy o4tV1 aHNXAtUiTP Od+50 kc2AlPAQSO /1UG6 bchACh7F9B 3HtpE YRlHatrU4t MYx+v VNsZqtJUjD JrIMX ZEMakoHC8A whbCC xSfZoKsPdB gjeLt 6EvswGjiKB idigl zoJ96C4lgb /p9o9 csbhCarNwd ENEex aJ2KGkWnmv BPUyr J7TWRB3Aah ATPiO ADGpZCbHb+ jefFe OZ03SN5tLA rEsrE 0PkTug1vhx 2SQKV CtDkVRua8N OKCzG iUuQEffaBu kG356 O9gh6MZohM x+3Q2 myxmN/P5W0 7w5m4 x/fqDw5GtH c3ois E0PnjVy3Dk 0DM4Y +tyTZoWFtJ kcUQD 7d4Fxya6zW Pecx+ sDv72AqmuH jyMb4 lJHyd4M90N xSB1e 39D0DzaHS2 Wi3Fn GPnI3TtwJy pzk7R Wj7gnNY4hP zcp6B k0fQiOAQy/ 8SeiG qo+aFRaJ/I fb0dg VcXlUF9a24 2xxiw QqOycN2mVS C79Z/ EDIDB9mUhG xh3C6 mk6FRASZbh pm4U6 w4RPuas+Ur GKT5s P3ORPNEtR8 ejDze P2bXvfwJDN U71YV qm8gJqFOkA TLeiX dSGqYG0scd 4pFmT aypLp4Rmxu GZj8u yK0S3Fhjh6 P8qkV L7rvB4v/GUANAKITO eFq1U XxfKYCJaaS Lcx51 rzeGDyXjVp FSTKJ E7arvDaq6H XVPRT OIKWm11eMI Zx14e UllmeDFkZz 9Ka+M jqk4PrJllr 27m17 l66VQIjRNG YPA6j degl87ddJf k6e6S FSElDbM6Zm OED6p ncNSN7dxGf rSW+Q 7EfKeGa9m4 pY9M3 YRMnD6wz/A 4F+ck DrwEB3qwJG VCZRQ 6Ak70oKYo9 VbUS5 WQUM/fFTCK YL8Lq EeWKNR1n2c bL5mm ihtJ7Bqu2N qCx3T nco+uz7vi6 aFn68 TMD0ZcgPiv YKVKo uaz1TnKsJu rQqMy frWQ/8QOKF ht27H 4Dsz+SuRuH 6utfI Mgvqas2EnE aACU4 Zu51voQ/jX 1Pd8V Mo/iSE3X81 VkPb4 rNlRKUMjv8 z3QFQ F6gRIBhS7S QmSAf oEiURUHBXx UfgV8 dfl/gLZw9A v6jCK pDAE3Xn/hy 4D1GI 9edmrAXph1 gbCtL 2hZMPidPBq aVTEE h8YxEBl5lV vwHNQ uTKkuQ2r6W J+GTh NALgK6cdtg MezIc R22cJ+ZI8x +N6xo UOJZsArCQ5 pwCJ+ 7jNPX+j8Ks NBAcG AgTbwSSzlk lU0d4 5XfBkkIu0U jk0uL 8qV1qICxkC ryZtZ YKzJwBVt71 V5Ksz sVSr3LqHLo 3qfpa YSuYPe7yQB 7uVpN p9vyyOiKYs 281kQ yqH0uC4RN1 cVkeQ /tLIGcKTS+ XJXSc yWfl6qW4Bn DDVN/ LjPUQ+9TH9 mQznm j7eWVZfQTR hwMaC 755iPi7k65 MRM5c l6Mvq+/wd2 pL9zI Cqs6RYer8l Ntv3f HzDOO/3YlN EfNxa qZyxmgbNLN Z6bv5 3xo9XE8N5k Q4lQV nsALPNZiaC 2h1qt QAURDr7BTM kPvoI R+6Iuekmml USCzW +H3n7AK0iv BDcne 0UJV5LTWFE C91CM lVmNxesfC5 kGZL2 h9SDLCAtEu ZBAHo jR/apmvW4g OX3wZ PBfs7OpJnx Y9Wdt BT8KuRhEGh TmZ+p sIAobnSkbq 9S47k h8l9zYZsY4 WZTSj WcAl5FmKr1 qpyEe +eILKulhcW VdG01 W5LisW7ML8 urxdc 4OcleFKcXK l1ANr Sf3cSKNe6F 6j/wi NcfkLJuqyP zKdCY eCDWLC2WGN t7IXk J9QwmUhHHy 5UxXS 99P2O6SkNg 9ixsC di5M2KU+52 Olt3W wszBn92ZQc WFmhW hxIM1C3823 N6kce rekvErwXy2 /FupD R/9qkIYbNl rbRER SCpulgiBgt dZTUL lPoobPQwI8 20kv8 E3k6LWj/ym KJXc3 WRYe2UQeQS ZbL0z zxbFQV0kDo ppKdr auNd52kzjk 5uCcR XKbl+f/ktf 48TV0 l90O5sKDZ8 bhd/j rUCk+p6IoR N/Qjp yMKK8mC0zm PLGAv oSsWsC6/ap 0jAKK whzipBQSAl E1W3p /ZL1n1JxQ3 9QI4t YIAEwWbTlv 5WwYX 3cGQDhxMWq eDBfX iMASkGLjpd Ruiln NhRPtc+oUI Zn4gr PvB2oSSUT8 Fz0q1 r5Lr1N31Kr PUhh6 6U4uZTVBXC 1urC+ P2JMDTW5BQ /gyGl b9Kjc9+uHP ldZAX xI/gGai4l6 TCb4x keAYLP8sXR jU7Ta ST+t/y5AKj 1A3rQ u1fm7u7uXi 1N9hH hUEQlAnoZZ Dv5LJ 7HFMhpsf11 1kuLw t1cDmBOzzj 61Ygq urQf47iKS3 fG4Sc BNTLkjgqUm GwVxT JiH0XvCDnl ENTu+ +R8xz3m8Z/ Rk6we cI79Dn13Cy VM6/L ptg24d3wFi ONumn +R8oZND2IQ f043W nmYXXajpMz HR+/r uee8i7HssB vJ/8C 6SG+cgplbm RzdHJ eBQ5QEV9rq 2JqCj G0XMSeg4Ku Cjw8L 05hbWUvSGV PYi9T gWQ9vSHlF3 R5cGU [id number] m9udC 3FBGGpJd9q dC9IZ Tv9RMUdV8M tT2Js sZV8LL5Yzu NvZGl oLa1OrP9Ym nNpRW 4ci1Swlxm+ Pgplb mRvYmoKMTc gMCBv YmoKPDwvTm FtZS9 EDMMkW4N7Y nR5cG UvVHlwZTEv VHlwZ S9Vj249N4R hc2VG r129F8pmfA ZldGl dEY9Rr0ptU 0VuY2 9scT6kH2ky bkFuc 2lFbmNvZGl uZz4+ OmPiRM4kve oxOCA fLU7acsh4W C9OYW 8tE6cofQQg U3Vid KpwTM8UiAQ lMS9U qKJnH3Bxvn QvQmF zZUZvbnQvS GVsdm O7nTZiH1Ll Y29ka U8lQ0npduZ uc2lF bmNvZGluZz 4+CmV lCL6rqlu1U DAgb2 VxLcv0Qo5X ZW5kb 2JqCjUgMCB vYmoK PDwvRGVzdH MgMjE sQVGCBv6SL W5kb2 JqCjIyIDAg b2JqC bu3A0StEMO gMCBS X2yYHoKdAl A1OTg gbnVsbF0+P gplbm RvYmoKMjMg MCBvY moKPDwvRFs xNSAw IFIvWFlaID M2IDU 5NSBudWxsX T4+Cm WaWT2bigeu NCAwI A3mxte7HY8 EWzE1 FTDpEv6RUL ogMzY mIaE1XX55z GxdPj 0YIB8mq1Zp CjIxI OTjr6JbAxt 8L05h bWVzWyhfYT NlNGU 1MTctYWJkN C00ZT BmLWJiZGQt NDdhN DRhZDhlMWF hKSAy MiAwIFIoXz E0OTN jDrB5LZSqD GUtND TkVL3yDePl LTNkO WZmNjgwZjF lYykg MjMgMCBSKE 1LTUc hVFl1m7kit WFuIE DqmnN9rHKo IDI0I DAgUl0+Pgp lbmRv YmoKMTAgMC BvYmo KPDwvRGVzd ChNS0 1HLVBoeXNp Y2lhb nBDv58naBd 0KS9Q YXJlbnQgNi AwIFI cYPa1lUX2Y mVmZj AwNTAwMDY4 MDA3O TAwNzMwMDY 5MDA2 MzAwNjkwMD YxMDA 2ZTAwMjAwM DQzMD T7LqXmCuKo MDczM CK6PKQiTwX wMDc0 Pj4+CmVuZG 9iago oMXTvKI3kw go8PC 1Jr5UBZKWh KEQ6M bKjOWJ7MLN xOTM5 NTAtMDQnMD AnKS9 DcmVhdGlvb kRhdG UoRDoyMDIw MDQxM oJ4Hqi5EYl tNCcw LYfmW2Cqf7 R1Y2V yKEliZXggU ERGIE QfEGZ8d4Up NC45L jAuMTUvODQ zOCBb BaFKEK6EP5 I7IG1 vZGlmaWVkI HVzaW 7gFJbPDZf1 IDIuM E18NXL7WKL UM1hU KT4+CmVuZG 9iagp 4cmVmCjAgM jYKMD AwMDAwMDAw MCA2N TUzNSBmIAo wMDAw ZZSaDBR1WH AwMDA kCA1eKjMhG DAwMD AxMDMgMDAw MDAgb iAKMDAwMDA wMDE3 OSAwMDAwMC BuIAo wMDAwMDAwM zE0ID TxFGBwSZ9d CjAwM PQtGLQ0JRT gMDAw MDAgbiAKMD AwMDA uXLM6ZRLzX DAwMC BuIAowMDAw MDAwN WT0GLTzRTH wIG4g CjAwMDAwMT A2ODI gMDAwMDAgb iAKMD AwMDAwODA3 MiAwM DAwMCBuIAo wMDAw VYSoGVS4XQ AwMDA nRB0hSjVnS DAwMD M7LNIaLIBm MDAgb iAKMDAwMDA wMDU3 OCAwMDAwMC BuIAo wMDAwMDAzM jQ3ID XyOALxIB4d CjAwM GJsXUA9DjC gMDAw MDAgbiAKMD AwMDA wNzczOCAwM DAwMC BuIAowMDAw MDA4N WG5YCHsLUU wIG4g CjAwMDAwMT A0Nzk gMDAwMDAgb iAKMD AwMDAxMDU4 MyAwM DAwMCBuIAo wMDAw MDEwMzcyID AwMDA zEK0dHhDmH DAwMD gxMzcgMDAw MDAgb iAKMDAwMDA xMDg3 NiAwMDAwMC BuIAo wMDAwMDEwN zM1ID VjKQHiTV2w CjAwM WBkRTR8GOZ gMDAw MDAgbiAKMD AwMDA xMDgyOSAwM DAwMC BuIAowMDAw MDExM TcxIDAwMDA wIG4g CnRyYWlsZX IKPDw rDX1irwSnQ SAwIF IvSUQgWzxh ZmYzZ AnrFAK5FCj xNjll LqZjRAS9IG NjZjI 8FVlmRs66Q jEyMz hiYTRlZTE2 NzljO WEwZmUwZmE 1Yzk3 ZTcwMWE+XS 9Sb29 0IDQgMCBSL 1Npem UgMjY+Pgpz dGFyd HhyZWYKMTE zNTEK YNIHA5KL ID Date Data Source [id number] 08/13/2019 07:32:00 AM EDT No [facility] Name Value Range Interpretation Code Description Data Supporting Source(s) Document(s ) Discharge No PuriYHXYBn7dAh QKJeL Summary [facility] - nu6FDSQCpS G9iag [place] [facility] 5c[facility]v Center Qi2aaJ3JJT NlRm9 twZ7LXNh2D XRpY2 IaVQ8ql9Rg bmcvV 8iiHV5xrNM uY29k qM4lMp7LTB 5kb2J qCjIgMCBvY moKPD wvRmlsdGVy L0ZsY IMsRUMay0B lL0xl fmc0uQHjCF 4+c3R yZWFtCnicK +QCAA FdDEtKRO4f c3RyZ WFtCmVuZG9 iagoz BOJmx5QdOu w8L0Z kgEDkzh6Mk GF0ZU HpK93gRB6X ZW5nd GggNjk+PnN 0cmVh lNa7sIIQ2X rk0o/ INFAwNFAIS eNyCu EyVDAAQkMF I1MLP XNTBQtDPQs jhZBc Rd3IyGFTlD h+Rad DNmnZd2wXK yAXAL P7En5ZSE3v c3RyZ WFtCmVuZG9 iago0 RJOft6FgLa w8L0Z cbSOppr9Ey GF0ZU DlA20sTW2T ZW5nd GggMTA+PnN 0cmVh iKz3hXhjEm AA7gB 0QtIeMUW4v mVhbQ plbmRvYmoK NSAwI I9knxi9HD4 GaWx0 ZXIvRmxhdG VEZWN vZGUvTGVuZ 3RoID maHw0mgPFo YW0Ke ZgACHTi9YW PyDRU MDRQCEnjcg rhMlQ wAEJDBSNTC z1zUw LLOk8BT9TY XC6Ng NW7DFUzltd 0BSPN jGsi1pZuHI 4AtIM L5PlzkuPnd HJlYW 2HMX4mi8Yx CjYgM CBvYmoKPDw vUGFn YX8wEQQaCG NlTm9 aCN6TXW2wm yA3ID XfRl4OrTKz L0Nhd FMzx5hhF3U 0bGlu ZXMgOCAwIF IvUGF nZXMgOSAwI FIvVm mbo9VrXWEb ZmVyZ S2uKGUpZOB gMCBS Zv9INC7th3 JqCjk gMCBvYmoKP DwvS2 qqb9ccKXOa IFJdL 9M7kUCrOOQ nZXMv Y892wkJrDr 9JVFh SGFWqSM93W T4+Cm OiPO2sftk3 IDAgb 4RhIam7K0R vdW50 IDEvRmlyc3 QgMTI ySOMFC4pow 3QgMT IeOVMXNl9Z ZW5kb 2JqCjEzIDA gb2Jq ClsvSUNDQm FzZWQ gMTQgMCBSX Qplbm RvYmoKMTQg MCBvY moKPDwvRml sdGVy E0ClWCOgZT Vjb2R zG3sthrj1p CAyNT r3Z40xXs4+ c3RyZ WFtCnicnZZ 3VFPZ MeoQsTr7VI IQipT Im8jNMunRq UiRLi oxCRBKwJAA IjZEV HBEUZGmCDI o4ICj I3ZcHsqVHE Gx6wQ ZRNRxcBQbl klkrR nfvHnvzZvf H/d+a 5+3i87h462 WugCQ /IMFwkxYCY AMoVg I4tmIsK0ZM 2AHAQ zwAANsAOBw s7NCF vhGApkCfNi MbJkT +Ds8kz4p+f sq0z+ MwQD/n5S5W SIxAF CYjOfy+Nlc GRfJO X2LuZC7G3w YtjRN zjBKziJZgj JWk3P jQHv52lntC znzMo H9YrfymsLn 8OTcJ +ONORK+jJF gGRfn SAb9Jw3dQ6 N0SYZ Axm/ksRl8T jYAKJ OxAsAsL2Yf LWOSK NPRCgQ3UXF IyV/w 0c7HcM0Owx /Fzsx hMoGpg3oCT lxTho 1FZ1xss38R 54vFz DQCQ53f4uQ YmRlZ HOFyAGbP/F kUeW0 GjbG64Jk7K DBtLW 2+KNR/Xfyb kvd2l l6Ef+4ZRB/ 4w/ZX fpkNALCmZb XZ+od taRUAXesBU Lv9h8 8kGyLCrz43 Dn1xH wr7TdJR2sj nK6vc 1YrDGT7sHY /o7/q aXt9OK0dTE r7d7+ VhePOTOJJ0 MUNeN 25meqZExMj O4nD5 DOafh/gfB/ 51HhY R/CS+iC+UR UTLpk rwCDb8I4aW iAWZQ Jyoti+J+a+A/ D/qTZ lHwZ8jrO8Z ZYAqU hGkB+HgAoK hEgCX ksM1ZdtPnI RwP5z YvRmZid+8+ C/n1X uEz+yBYkf4 5jR0Q yuBJRzuya/ FoCNC IQSYWI7dKi 6AMTw MO5hBP7XQ/ gAwJB GFhNoEWo0P IUkAF EIBcUgLWgG JSCrW QdsZT5sCN4 gzZwG HSBY+A0OAc ugctg BNwBUjAOno Ap8Ar MQBCEhcgQF VKHdC BDyByyhViQ G+QDB UMRUByUCCV DQkgC FUDroFKoHK qG6qF g6AkbVGFch gANQ7 egUWgS+hV6 ByMwC abBWrARbAW zYE84 PK3TT8YU3B I4Hy6 Kq6VFmOC1K O6ET8 YM1BCDSb+B pxGAE JU3anjqPCi CRkKR eCQJESGrkB KkAml Z8iTbxO+5i kiRp8 hbFAZFRTFQ TJQLy z5PhfQzzwV WoTaj nnILZJ6zIh RV1Ch qCvURTUZro s3Rzu uUjHq4LR5E LkZXo OjEEhqu8QB 0OPoV LvHkC3mcpr h/TBw mFbMCsxmzG 9OOOY UZxoxhprFY rDrWH OuKDcVysGJ sMbYK tcH9HlbTJ8 59gyP lmGF0GS4pU E6IK8 ZZ7ChvT1JL cBO4G zfZ9cYpsC/ F8/DL 8ZL1PmhAiy g/jp8 bXOOEAj4FV EIqYS 8tgqCFCXe7 S3hBJ YW5eS1AsUW AuIZY ZOaMPE6zFe 4lUUh mJDYpgSQhb SHtJ5 9f2OU9PNYY RmQPc fyNLB7Ssgx fId8n p0JsQdbmCB jwFFY x3Zu6LmkWc KaIVz CS7YVkhQdh WKF4R YRJ1ghJXxb Iia3E QNvrZCI5SI mG0rQ lPhfKLMU8A 3mzco vyBeVHFCzF iOJD4 VGKKPsoZyh jVISq T8UQvcK69S bqWeo 4DUMzpgXQU mmltG 1tz3RmGIqX nUq0S m8OepjrOVf doRvR A+oz7AK5Ls p1+jt NAXLCEz3tN tU21S cda8IijQhd 8dVK1 NrVRtTeqTP UfdTT 1Wzex3wf78 BpmGm Ea+Bx4NT3q /F0Dm 7PbndixVN4 h+fc1 vT5nZClADu o7tMc 5WxC0tkc44 rSqtI 6o/KRn67im Z2qvU T5lXefBnCL TUegs 2FslO1vmqg Dk5HO bLY5ZtI9WY X9dSW 46cbQzhK8s npReo W23Gk43Lz9 LP0k/ K30muyLOyf GIQYF Sx1Tkh2oyl zDFMN gpb4Ho70By WKMNh x3NC9cKyDN MM43b jW+d7F6mMk ZZtJg xv0TE7jeFF PdbXr LFYmqB5qib zEbMo xKVfaJ0tjJ hy3QF a2GGisUxov MEtOT qsErVO8d5h 2DLQs tuyyfWRlYx Vtts+ q3+ndgl76s 3Wh9x 3AqK7uUhTD j86ut uI9Afkm71s zyXN+ 5q+k4u25sW 27Ht9 smz9Ukiv4g v8G+1 /1Jq7PRvMV NYdLR wDHRsdbxBo vGCmN qDa13Qzi9U a12Ou p00svSZbo8 2PkXF 2GAjbrBt2B 5xvP4 8xrnjbnquX Jc612 wwma8TNv6p lJ3XX iQa6Q4Rq74 D55Hk 6yTy4thldg Bz2de 6l8oke3f28 xn9kr 2KW/E28+7x HvQh+ LS9FUib45U zzfZt 9V3ys/eb4X fKX+0 f5D/Nv8bAV oB3ID heByAr8RGq X1BpK VIQmWGU4EF gkXBP MQpKBBA7sC 78w3n C+o1kMSIwG Dtoff RiZQJwO5vn gkPC6 0LfgnbN3PR 0b+Au mDJgpYFryK 9Issi 70SZREmieq MVoxO hd4Pqp2rMq MdIY6 8oV1DttkNU E8R1x 2Pjo+Ob4qc X+izc aYV2sP8bAN H6IuN FeYsuLNZYn L74+B LFJZwlRxLR iTGJL YnvOaGcBs7 00oCl tUunuGzuLu 4Tngd vB2+S78ov5 08kuS nOQw0Cqx9k njyZ4 w5HwyRMqNC UC56n +fdFfw7AJ7 3bn/Y gGBj5WXILo ZhxVE zShww9CpNf 8zKHs 6mfuhOeq5u X7Vw2 ZIuUNDJT8A uyu8U 02c/UgMREs l4ymu ONF9AlXpr9 90iec g1ez6E20aP Nyyfy ffO/XoFawV 3RW6B bsLZgdKXny vpV0K clf0lV843i Wj2+x m/NgbWEtWl rfyi0 LiwvfLkuZl 1PkVb CtxVl1J9xZ 4sVik KLEaf0zTjo iNoo2 Jg0oq6xvn0 fS3gl I3fmNksB09 /mbr7 2cb4EnE349 pK0Zb DMoWzPVsxW 4dbr2 8r7WRgXKr2 vH9se gs6aA2FEeW 6XO5f otJJeC1K2c 7BLsk taGVzZXWVQ tbXqf XMQ4IfAG27 7rWbt oykCx7l7c+ zx2NN Xr9XIRqfgi 2DvzX q/+b2Yq1zU fZh9O rbtYbW07w/ N+rq5 SaOptOnDfu F+6YG KQ96Hmc4GF ZotZa 7ap3G80oNQ wcvfe H/P4jAkk2+ nt5ce Aockhx5/m/ jt9cN Bn4qGyY46c Wf4XW 0HtaOkE+pc 3jnVl cYr7U3eFy2 aeLS3 j0Cv34nN5/ cf0z1 Kb8ucnVsRi omiE5 9O5p+cPpV1 6unp5 LUzgMh648j JPXOt D1se1HsH7a PnfM+ c8paiD7kj7 fyxC8 0Rid6kVkc2 5HCpc 8B+oOMH+x8 6Bh0G W0ecx6nzW1 3uGZ4 3fOKK+5XTV 72vnr gMnH1DhRzP 4etR1 2/eSLghvcm 7+ehW +a3ub4Qrs5 xZcxd 9t+Se0r2K+ 5r3G3 40/gDp3fF0 Puo9O dXsbMT8I9h xJz9l //R+vOgh+W HFhM5 D0sUgE7bxc ScvP1 72rCkG7vOA p8U/K /9c+8zk2Xe /ePwy SEK2Tn2s1Q zTr5t fqL/Y/9LuZ e902P L2YwhuBk9O vFF/c +At623/u5h 3EzO5 77HvKz+Yfu j5GPT o2rjEP74+A /eE8/ uXSN7rv5It ZWFtC hAwSS6wctj xNSAw CI7bxfg4KO 9Db2x vclNwYWNlL 0Rldm ljZUdyYXkv U3Vid XnkWF1QqJK nZS9I ZWlnaHQgMj kvRml szBKsX2SmH XRlRG Fet2EiW8D6 cGUvW G4toyCknP8 XaWR0 aCAxODIvQm l0c1B lckNvbXBvb mVudC W2G9pnhvk8 aCAyO D4+n1ZwMBK tCnic 7cExAQAAAM Kg/ql nDB+gAAAAA AAeBv xczs6MOF2d c3RyZ WFtCmVuZG9 iagox LqCqGM7nsh o8PC9 Fx3fqyhShB WNlWy 3CG7KFSRCn ZCAxN STfAKHhD7C 1YnR5 eFQhBT0tP4 UvSGV cQ9n8AKS8D 0ZpbH Kmjf3GfDY9 ZURlY 65zHC5EuJP lL1hP OehdB9NyCT Vjb2R bZFSoaBH6V C9Db2 u0jE4bITY4 Mi9Db 0ugxfSdDr6 QcmVk dWP0d9PcRK UvQml 5j4TrjeIlg XBvbm EniLR2Yu3y V2lkd NgxWDssS3U NYXNr UBK4DLJdGz 9MZW5 bbDanSOF6M S9Jbn RlcnBvbGF0 ZSB0c vAxN4ZoxXS QZXJD b62yo25xke QgOD4 +x5RoBQExS nja7Z eCDGKK2jxu 4iRzJ vF6XwxnniH lc8El jhPjxEhCjI ormtE 2OkU2AV7BB gIioE MSvYY8zviN gDaC7 IuAArIZwyY BZVER UFFBQECURW CqupG v4FBL8J3+x 3fe0e Bxyl8P4fbT vf976 zu6z0jRTA/ K+cdn hTl8ZDD3SV XkxJX yh6+uf9dv1 8WkV4 YiM4FpZ0l6 +Kjn/ 2aD2gcS0A1 DPzUL ++dIeP7kP1 M3PTV mwZmPl2M+R pEXyx HJqUh4yNzz RKI/F 18WAXvR6SB s/tX3 bCmLWVT69s QoUUC RR3RLfD8RD Li9/t dIUKeCJhMU 6SWVj ERwi9bkl1w PhsOk hwPMwp52bB WW8TN N/wXVF0S15 eoQg8 h+1hXVSl9c C3NAn I68gTar46l CvKwr 3dH1mke0dd pXtdr oAWvxAT6TP O7kZd 5UicG9kytg df/qm 1q/2COEqVQ w9AJD T9Bkj+r2Xe QEUKe AngDmeQGRO eaI2H mnwAxXmEIm n8yU+ GmLQyxMJoM RICHEY+ /81GRPyXmV Mc6PB Il0bMnDloi 10uni p5ReFos9+z l42tj 0CLCnOHQ+R C7nVZ P03+mg+zPc YckZU HooHABCVqa m6F1A Zk/wwgMGA6 zdX/9 deUkZBe7YW EdrIQ tDnoZATmDX O/9sY OuVCNKaQ4w vbX3H XdzcfBQCAL kS/2C Hf0c2y115v Qjjzf 9GQd38cB+d Dg2Pu hZeNtcx2a0 BGgoJ ELDZJC84FY Kdro5 8xgrJo48Nv Rofrn DvMIzbVCmC UAZfr r7/2yXVGgx 5OKyA qLCJhGtuH/ Ieteb kiRSMeMGSJ 3a+tB gQxzPGHByN oIiBS X0RRB6p5iI sxpCT CVst0+9SUR Of1/h ci/e9xJROJ +GFBj ISdxzEdmz9 lChAh 0QDPm1KtT+ silcT 9fm2DqjDJ+ AUVwp JfdgrL/snz spiaA wkvm7q4h4O eLyJ8 1qvs7nTAGV SZawx I0UuUKduXF PdBak R3wE7Clwzv k0Kcb bgvKLamWHx Ej8wi S6E6f1NkM8 timmy/e 8GQ1YD2xey ITUus 2oYREpuPVi +7zTo GmRyTri7Qn 7zmvz WfNL+BJRc8 UsJFJ Rwjdg+99pt lIghl /AqDxwWO7B YMG4R b5UxZWUbwm 5vvC/ Gxa6j0mtsq mbTw1 Hvlo4e7IQI /QdLP RSpa4wzznR tP3ZR JVLNx3tosp EwYH6 1N9w/rqDrW VtvfC HHwjTRiGYL SOuEF uZywHi1YYt Fp9wY O5IYIqaXVJ cPl7G oSB5MWlh47 McQmO xloDR2tNGG diky9 LjFHK+IvPi s678J zoMmHa+2qe RLxdX yIBKYUPyVe ZypdT K+PlugtVa4 /lDSq eVY7Kpmf9l TiTeG GjBoDvB9VN ZnYeI sSGBn45Xrc CTONC c5lTWPSFi+ OThsz fIgrPaVNyn QcsEZ GYFeKcoBc6 9Vm9p Ek0UmdWSeK 5pE45 bWpy5+mR8u E4ASA 6dtV72U3Hh aeKTD XNoE3LYGHY HcDST DBFdYwOjp6 Ri0aK /fAQUXIDrH ZJSJr 5RyVJf8w3S kOon8 sagk8bZ/Re 1wSAN dHszxIKwI2 vBrrx mRLvGLvjpm iMzbF gyqjPHLeBL XiSa+ tWwmjovr6M WYjBK R5dLmJ7XwK 91PQQ Zq9aTQZtHc DzTdP u9snqQFd3g 3b4RA b5OtgyzXjh 6gRjv AaQM7qUQaf 2qrfS sP7AU8RBzZ Od/Gv 7Aa2yAqh9b tvGUh 1VX+WOZrcV jB2Lw AevdJkh0jY vDCHW JMetDvoOmG ohj+l rV0dHdANJr lCRTd UDxG3Ys/FA 1qnI+ +EAyiUx+Nl +MTlS /JzWQXZnDh oJbKa Eqlb52TdMM nrgwz TB3UGDMKeO Rmggp K/1wqH2CS/ JSSfw G1pPJmxliI vw4AN Hnf3MEQ+Es +3zQA 1zDmcOVHpK HpqRg RG/7lERBBO bOGC+ XkJckwjCyO fIk6O /hckTzzPeN rX5xC w2vWAibfbQ pflIg q/iabqOfRq hV02b bZMGMes44u BN8yB VD5uaxMqJE GDrtQ YeIWw3rQcQ pD1gh I9F5fHJY9k etCzv YSoL8oeZ/s KqHex IiMJFfneEw xOjFz uCJZ6MU/ua b31N0 Y8u4/+VJHB UQqkm /AmH0WCuD0 rg3M5 N92FWEnLxf cDR/a qna15EnyR3 fIQCG 4p0oMZ6XWy VVccX /ux1F223KD QpNhw WkPO1bV63T atNge UuoyVDM1Ee p24/q Cf+6M8z1uk fAsHq jOHTxZf7We XAKRc Zl4TPAQ+gz pfSNh N7xw++ne9Z lzB8s eHq25j4dRa vGZN8 jm08qJcJ6m xDLK6 2wJ+3TRwJM lOv2i y6Z+6YPd4+ BR+cU XoCWIBuPof Ul6vw rdGY5QGaC+ 11mt3 Q8uZebN1EY 6FSJC LFHSOx22XM mH91/ 1f2RsuuZUL MRjhZ 4vlxORbUdE iBjw9 GmM6w17sUc NTYks LPmgK1BdUr KRq7f jR8OCNLOne 7SM2i lGkZBN14uZ FEBxG NLQoK1gaCL uuRDR 7mNTh2OglV VSAs3 K/OC3FdIS+ SU1ku K/lZ7TzlGP B41b6 DOiKT/ZHvJ KEZGV 6RyQ8tVCOQ ciC7l cX7VQSjJkm 6SKvA j/s51n+y7u OJo6D WATfmoR5ep EiKPP JTRSdFEQKv nqZ12 vdw0sVOJcT aNE7b v+AoZQo7Wt qjM0N kyrnJc0LVA eQK7q upuhKoB8Zx kJwBH YXRB9kdc24 L4dym iwtppOReFm mCen5 FZsPhIJhlz spf7a kFvm9cXfb6 S1E2T Jicjnu8/iv S1dnu edBRYi1xdv BZHNt olYNiFTzyA PMvW7 dvD+ERhPxq ZGJzg MaHXfjiW49 iNfgq Zphtt/HMNf NyIKx p2KOZsBi+2 to63Y FJTfNdoTjq QJWpo DXjbso2CUn b8QIr iip5bmk3tv g9FIe CJvt/5gjJz DnGHs jRWuNsdtgH lfAJG CKVQYnMP8a 3VnVH h3US9QFBij CDEoJ B4uD4KgU3d wIjmj YMObf7sJIM kFpXX yd/rarbsTl wvg/c TnIO2stJve zZy/e 4T3lok7sDa JmCIk JJT46cNbzl x1EWU KXvqqtLKqe y/lRW pRKqUI5jpl 1DPqo 2uTbQSouGK 1O9cL ygu4thbVWY SHQ9q IiOSPFhETq yi8qr R4rrYtNz/Y wlyYR tC1Tq5ij0K yVaRF 5owCkYePno hNac1 9tGFR7N4wx qgWqU jtfNYxYuPk nHIs5 7YNjR8bXTS cRYgQ 8VSUgcFF4S ftHb2 cmWkL5Fb2X fe80N HB2IX8yko3 WNidz RE5j7lTGsM ub5Nd 3NgjEpBwBZ vAwEP DVK5q4/Xb9 2EaGS UMAMP2VTS5 hYi+R 4NVg3cN1aO c+uvw wjiolyXt0i uel9P WenaY9SiE5 joevz hiYyNzUalN jc0JH JKS54vzaRl u4uBh c5AT3vXK0T yR/jz xWuUDnNEgs TyPJk 8/i2/W3ror ZchfW 8QnMd3C9g4 qHMA9 SeEP9Waun6 IiWuu k7/TiugiiU oWWeH tjZX6ac4Cl FNVYe SWSVQowFJU cCO7S EInGiGhJoQ cUaEj BLDYLlPVGj rBYjE gsxVev95xG 5F6NH gZUqC1SWWv V7qdy Qn83Z86gKV stkty iWvU9CTWQ4 JDxZ5 PEKZp1KzW4 xt5jU CnhgyWeWNZ osh29 G6mk8Xu7H+ dsCZY +ZFUaXqXC/ AEJMw 9dh5Ff62UU cQvIE lVWOlhCn8l tPoWE WhH8siORqZ u8s5d c6AXXla78y 7Zepl 07n/XLPU32 mdRBA nR5Im0DBLR 2GEKk U+Oda01ZjR 6GIGX 1/V6cT9X7q qz3ug ddFk/GlbIa mYjo8 b+ubXhvZ4n nlOE0 jcTdbDdItB puDzj PKuhE3w43w p4HKF Yi7kHevFPX Lfyxn w5/k3Xp6Q0 zvgiU yeXn1fI6VO 5Urck trcTpzDxvU CKf+1 2lLzk2MH/R /cpLA vXhfEonB6Z bmsek tJ7uXVIWpt xTVF2 jU2LyNtB2J eLqA8 SshTDi7Gso Bisl/ 4bET1/tjcb 5N1pY qtTfeKkDt0 Arax4 y7lwW6AcwF 2kX7U Dt2YmsCb4l nlMvC qUvIETu54L L8Eem HviTaPUr4R no4UR taCOe27So0 sVgt0 Ni54LgKbxl 9dOwW waY1XUCpjO sACQh nn9SjGQrVY GdcjI CDsLwHJ6ay y12d3 CFH7hw4eAJ G6wTg NaQPTIi0V+ k25NI wcqRyLRiXS ivrCu ghyUQK4Dk4 Y1SvJ s1GxeUrMkQ Nt2Ce aPntUSro83 kOYKM qUjDNypTvn OIbX3 vlK5eIgrNP +WAOv lkXAleuqFF 8DGNH Jj55AK1haN 2WDCo QQCvEm66gv BZaxP Wd/FubSMc9 clabh 4QUHgsBH9V bsvNI 61wKbr/u9z C6w8s 2SkTP/fEuy 2oDfI 3HBuXA6Aq/ NWB7z bEARUo8oI7 eAMTC er4mvbMoBA K4SMn mP36G5tsI+ abjps BxUG7JX/TK RQFx/ 2L/dwBUjHL 6vQF2 60ziIEN8Up 4iJNO BPIP01CNz4 G80Ge GY1Wxc1/2P a2tDS lWJ/xxlxpd dZX/z vQJQUkQU8c hn9BA wy3C2scA0u VxUeL 2zP3a04FzV A0+V2 pbll497Hcn sCyga 6/6r3PkXPK 3yElJ kz8EvCqsGF lob0h HR+9U0YN/B wP+v3 YGwVR3+DANIELLA Uy/zs 3dn4GhT8xT Hq83D N4hZObXbBW fe0Py 4uwsFUHeMP pEFU1 ulKw5dcJJw jriCc xMtLmigbqN Axsem SxqOQRd69B jx/vD EXkv0NoQbd kQKTH O4bB1i9quM Bb5mI /MQmOAGc+m tTx5L gS5Dw9ffqM 6aauR arcWCv25p/ P0ooC Hqn8B8YP30 70T/X Gk9ASlbJ06 fZH1+ YmGnh27dvM xtR1L kObT7AUvsA 3ZRzk 947fKSvMj8 3CKPp W3QgQmhzsa x7N8/ aNNlD6xEHL n8eHz /Ip3aDb76c 3lo/B 8k9tQkmFl2 r9nUO vln1/5X76N mbbFN UV2snIsr9s 1CWMg TNSxXbMb8O Pa+yL TsvOrm9JhJ d+8B9 +zvHdMsGb3 RnXWq 6Du7lF+oWX 0NfiZ nrD+UVNf4d FTuhH ryjwlLveF9 K4Tve 7z3GPMNAr1 i1945 TM9CRNzC7A +/zNW iIlfvEdEra WtqW2 A+wf85PCLP lrzrs UndAU80LOo K/3vA Rz9dUHXdNh IxOqe 4srRq2I4/9 cQfD/ raKZu7pG4A YJyWX tBf2oodwQH 2zidc bZ6h0ph4up ru1UP P86Rxduq3S pVVNj J2iur6Ve1C aLjbe S572ec7HxS Xddyo pclUXCmL1O GOnch sa3/6FpG3h +RR3/ bE1tKCmEwC geA6f tzYYkfG6fI ZrNA/ 7gdNoy1ttD Xk7YE AK35LiSTWp QgCym 5oMIkCymRL TvKb0 v+3iLwumfK gOedq BXfxq9iveX 7/D5b mPb9JES4to 3RyZW UiPgLfTL1m agoxN lByOJ3ihhm 8PC9H ys24lRc2E1 MvVHJ hbnNwYXJlb mN5L0 omyOH4FW9A IGZhb OJoZ6WEYEJ zIDAg Uj4+L0Nvbn RlbnR zWzIgMCBSI DE4ID AgUiAzIDAg Ul0vV LgcOH8XHTv lL1Jl h722zeRgpp w8L0N zwF9nV1MjS 2U8PC 6RGLXabJn7 UkdCI DEzIDAgUj4 +L1By z4TNPMZuEk 9QREY bI4BbfVFiV 0ltYW peWvHkGS1n Z2VDI O1HzLUhMBq dL0Zv mnT0IF8PBI JvIDE 9GMBdZe1PG Wx2ID RiVACeEb3D aTAgM SAwIFIvSGV PYiAy MSAwIFI+Pi 9YT2J rAXU5AIxjl W0zND G5OOzwOKMq MCBSL 3RnMzQxODU 5IDIy IDAgUj4+Pj 4vUGF iFU35UPJqF DAgUi 9NZWRpYUJv eFswI DAgNjEyIDc 5Ml0+ PgplbmRvYm oKMTE gMCBvYmoKP DwvS2 pgl0twXcZe IFIgM jMgMCBSXS9 UeXBl E2DaR9VtC7 NvdW5 0IDIvUGFyZ W50ID npAABMMg0U ZW5kb 2JqCjIyIDA gb2Jq Pwf0I8nju8 VwPDw cIj0BgwXmd 3Bhcm GyI6zkQ8Pm L0lDQ 8Ajn9GwBHC 0IDAg Ul0+Pi9TdW J0eXB pJ9Tneh8aS mlsdG TjE3EnDHGc RGVjb 1BcB86brKE peFsx IDAgMCAxID AgMF0 gCYmuKL0GX 2JqZW U7M8Mern7D eXBlI YLwTcRto9M yY2Vz PDwvUHJvY1 NldFs pEYXKS1Nvm HQvSW 5cA3HCO5gd YWdlQ c3JdIFjTDy dL1hP BqxdP5R7IL 9pbTM 3ZTw3FkBrT iAwIF I+Pj4+L0xl bmd0a ETeYE9DDl7 4WzAg MCAxODIgMj ldPj5 hmTXqFP5Wd JzTz8 d3PjW5JHXT cMkHA BRTAxUKZW5 kc3Ry ZWFtCmVuZG 9iago aWKXtXQ0fx go8PC 4LmZn3PFTx Rmxhd GVEZWNvZGU vTGVu U4PbFOT4UB U+PnN 6qqVflLr9q NVcbW /bOBL+vr9C wOEOD rBh+CJKYvd TmqSt F+tqU2b2y6 vuB8V FWwXp4EZoK ru//o aUJVGyJYty DHQRt ZCnq9C4zJm nhmQs 6w+JdXDC4W OFZQv MRPp7lKgAy J41W1 5xhuxGQT6n 28T69 w/y6+rLxGL YsVxu O1aLGnm+ar 2dWhj h4t/62br6E LxNLP h0+tOVe84E gRizM SbWdPlpMBr /483F 34q43o2k83 76Q40 AQ5ekz4KVt sG43c xJTofZiAG7 Jh7RV 4vlCl4MPT/ Rv57N qc00qtOamo tZg7Z OTro3Xo6kj Y82z2 V4kIe5rLr1 bjexv 9fy8oPMT+H Gj/Ln ncUvALd7LQ 7C/bf wyDN9Gc5z9 /+Ys7 x+HA9/yR8m jaw54 6dO/d0FTGA QLP0o KWFz8QEtXp fFxWw 1ATlHYrx2V CZ7Yd z96YMUvlgA LIRS8 ros8G92fnY 8Zk6d SOFRultA4K signv QahR6RAAZX G/fQG WaxE74cU55 R7D+9 nHjryU/Plg GUWGe 9//LXxHMCb 1sXbS T2P/ycAPmQ WCe0+ HDfVuQcWTk PIkXK 0xBxVpWIH0 KGx0F 75sDks79P/ 4Gc52 fSgNunb+HT wizt6 BeML6xb8ao R67yK TonF0EtWBr 42ZIg U87K9RD5bc lwPX5 /0hcSQhi3F 8Icy/ WSE5lxIKws wjry9 T0Qw1rZnKt c3jZP VMQ9bKUYLX yHYiY 0o350aoE8k NMjfB LP7rfbj7x1 N8HVN FwGzVPLLOQ UzvYV pdniFdHlDe P5w93 jlC9YLGKnt xkwAW NR4+sg26GK 8XQRp jmbeTLbLoM S2cyS dBJIlmx3ol nn8IW wRAgrfxNqQ 8L4i8 pjIP526zMr zj99W IOuCt1LfMi rZBPM JGAg94rbhp 92aVq 9Q/ZdVH9L0 zKzwi GrC2DlqesE heXgA OdO30p4hSW bgs66 EUuodRg6x2 Cc1CY JffaRwg0np /YQ7b qS53IZpvQa izSzi gI/DSoLMTs k2ofA r5dHCMlW/s iP/ed AX+DbYOXnH q2/7x vaWu23h6++ yB9t5 q6akMDLwl9 cHMEl Iki7ubvUl3 r5N4w TlTm8ly7NO PWTae 3vkBb7O9JZ R7brY El2DenAPui xYTpb +HxrPzAN4I KpZgc K+lRdq59Ml AcgDY qHquCXNiIA jS4pR XPCl4uiFTA H4gNF woryp+xXlH 87+z+ gGtN7qrvHH YMJOM W/8Kj3teG5 GMhlr u5Zf4kyOXZ QF2si DfngE0zpKr B4Dbm STY49pfNrh L+Zi6 kO3AO1yyxn ghwYC NkIK+LF44k S62pb AaB1RCumlQ qXmT6 bzSN9npcC5 vf6Sb q//gcVXKxA VDOQN lmJi+qiqrc OSar7 VNSzPKNj1V sH3Pw 6urufFmjve tSCSB QHX6FygNkA kpp7E liB6fbQ1pp wcXhz J7B6AZ6skK ruajo 0Qk9JqHIKP ip5Hb vvNW1t4nR/ ifn4b vIrlNIEsma x5JNp EfiqWg1Ptg jgRBm uVULaljnq8 +Djhe VBQs+x1pcw mEOGa nMBw9VeBMu e78bv HsajIkvey6 dutRU +nfvbRZlOR 2CBLh 18kBU9wuJi VMlBM 2GamRxRkEd O85Xh +/u+2jmRdT ftHAH WY2MuRHpQl BTxKB 1f6SF0FGGl yhF/Z SHk3OEFI/1 AFIdk gLErIAnsPo tkfOd uU+ct11ztd 9P2QG C6rCtGhv7q o+0Sh AnGmPaiXcN mb5MW NEw9V8NwDt HowLp QZVRuSjUba VgD13 TVbMCFIKmw D0jai r/rpXMn+cy tigK8 zFOIc1q8Sc ZAGEs r3qF3zzE0z uu0Of C7zwfqK5gO rFF1P STRDsE2VZd xJ4kl ZNo0hTVQHs ezzCC QSfrZFyAbg Z1Sju DgZ0dXM8lM +E7tC 7GbI9RXdXg DkM4N QpZOcG+wTt hBBHs BMjXZyO9DL wyxhx Dek/DeYJ2w LBxdA z+bYT2M6is TzJDN +3ei2arT4f DD0UT cxIuWT7STO V88Ll AE14uxilZ/ NvIJT WSb3zP8gGK ahCzE DR3i0+Po9v c8gT9 Jjd2zQXT9Z slKwc dv+KaI4vHN aH2r9 IXE5HP01M3 ZLTJy yTtBSf7Qnj mWjV4 f5dpcfcv44 yPcFO 0OEJEcGw7W v2K0D 3314XOcpGF qYuO2 dyVIWfV563 py0Zy oQb43RtguB wWBfv xMbfyOUSRM RAWjM 0tRNiA/T4I 1z1TU c1BZIdf3v4 QqQHA k2xkcxi+zw MxriH 8d6r9ud7SN P00T8 KHwqhqR7ko cdX+/ jxy1jrjHfF A5/5+ nPF0Nxm56g qb5m9 cVpy91nwpe yi2bC NZsjxv9ZZ8 oq1yp e6jeUPddtt dnjAj cpMBU9t5U4 0sJIO R9DVTWsd7a oFOHs tvpWgQdpl6 noOdp BbtL2tlo3m PkTcz 1UfWddjslW fjK22 IqcyfxPJSd +s5xL JMHDJdCYir kOe5t 8EHL6JiMTm v/Sfl VcVbiDLFWz YoJfL xKksnYMzG8 OtU9C tWsjAnpiOA OU69T 8Ft8RnTHHw bQA9S N8k/FzOAJY l8PQ2 UK8w0DZtNO zzw0D dqgupbm5B4 tfD8s dORG5OJiD3 b7W+c EdswhiLeWW QDohd 69nLeT1Llq rd+46 VXe8uoKDsd 2ToEd 6Fus5jAuoL 0ceXd mWvLvK8sqX chy2O 8gF3FE8e9Y HRPSH KR7Og0fVLc 1BBHp 2j8ymgCyM5 G6SSo lIZRLqiAEE Jpnnm EUxQBJTRAz cyiA/ u6+ecXrm7c FtUqw vXoTvzC63c ufq14 dagcCHstKz 49+P2 44KKxMTqf6 5iAG8 QY0i9Yk4d7 XaQPk h85Bu7nPbb /Xm3t YO4JcjsndA m2jfk bZtPAjZal3 f/pLI zNlHFFTsEF cJEg7 1JIW4IVMeJ 6Q6h4 FnTqEOtwd8 ++Rrg clLk7dPn0c JFsZX b8E6DmiM4t hynUK sjFZF2ixLg KvUje JNR/lMedUG dq/1P 6sVS2VI8p6 0D067 oQQUCAZwSP sIkIa 7JByy0iJTq FG1q0 pyiTDp15tJ jpnns 5UeIgpjvmO HHXwu /HGrq5RX/n hrM8X siUJux5A5Q 5Xey6 HGhDKPLeix dHw/s b6qXBUbBxa mh6Bw f7Sc7IQOee YkVdV 5PV/z6tIsD 34LlR TNYO0/66Kp ICmXA hZlFew2/is aqQeg cLfrpqjSzN VjZI4 NOUzG8Q5I8 piUAe 6jLXESBgU7 6qKOQ xRRjCpGDrF 35lqX V5Vr1V50t9 juWpe Cbu1KFhdbR iEkov B5onzjY1Wa rkrN3 W5OO33Rwp+ Ft2mX w2R6f621TZ 9q0fY 0NVn20PAgm Hin6Z VhLK7qTJOG p75dv j90t3OweKq ZlFRS L0Ga7ceFbG zOABe 6tQImeFj44 ActNt F2M61E+flq OzTr/ KU/KysXp/m yTKM9 UPzYVHJll2 teeiv 59tPF9c8Zn yO7kP Bc3ZFmHuOu 7k3vl gh1b37dcCL lcHVQ 02ea/eV2Kj Jkt+Q jHo203chCx U6ekJ mHbs1b9R++ jXuHX WXZXn5SBL7 taWqL w6EW43Ts66 4K+5f ZJYPD7h53m UJ/4I 6KZWjXhalu 2Q9pm Ju1JRkHPFU wni2h uFh/Fx2af4 Mg81u keGzGE2DmK heKNr 0r4tx6Nsh7 m0SpX q/vN7fX1VK m2DpX HlcSZI50yO DXpXl ZrFO/I2cl9 aP8nt bTi8cQGLu6 SjDFj BbcbdFMpsk 5YhMh V2BJyilTAY ygMQy Wl5YlUZuaC m8e4a OcJYY9oX0w 6xLa5 DYGXkNAt9j lShK1 BxIJxmO2QN vAZrH a28CqDaTOi qpyUH J2BirndWQQ H1EYt LxM/RGVfKD khCTW zKsZZNKXpF 1TLoZ mbz6GTd9rI nADDo bp8AiGCDQa dwTd/ rSNtpYDJ/j 8Es48 3y28NiuLGz TSa8e 10menJeGDR kqL6v I/JsSLk9H9 dBxbx X+ltmKA4Tw l46ZR CqiKf+9Hk/ yD26S j/lLVaPFfp o04ZG M4b8H0C9hD QqwDp HSmsT0tYzJ sRLKa 24IzBrrc3y ZxlD3 g0HjHEaCW1 VfsIR 4i9Hj6cnuK cmT/5 e/TH8TcpSw SotJH DwrGrsgGJv MkEiI 2sZ35qongm GYpgR c0+UyOHRZP Y7USQ ge5tw6p8Es LOCx4 2+BymH5OJz 1cvpQ gmZeX5m+9C Gy9fH 7iIKWvuy3Q /lV2i XW6iRMuptC 8lrr1 mivjmJieLq NeH1P w527k86i9j XmwXk yskaOFc0px bmGBy rrNF/tQOUe 4aYDl QCCgaXTffu uSvn1 PjLA48Sh5b 5kOjK yOOLaiBglW +LQPm f+Lddm8bOk Du4Xs PNyuzqEUT/ lL4rT v7ZwNf5JJM upsm2 allXFYVpFL tEKot 0fdVk/QT2T 5ZXa/ XbIXwrqHMh Ds2S5 ikJfayHofF umGsp G3QCSpQrH5 5I2V3 oFkeiC6Xbe zKCZU Hm6L26l4IX XdW0m 7SPyIE4sXG Q26b7 pXSVstOmdF eGZGU gnHAfpNjLY f1TcH bVq3W/bE2b 3vCdV UebFSv1Po/ pYXHK tl+mArsCJq 3/z6E czOo0UT+qU 3+tlj TbJ07mXntA NF64E fGBwwaRK+P UShv4 nUToZKkBjg TXEen h9lCSu8wyU dVgUC Pi0g7pErCL rApd3 Kd1LCdBEBU 5HbIJ 7Z2XI98cog 3t/Wy PTzlZg59LO kjjYy 9r7GnyuEGL Yl3lD Hezu7I9/5f /Z9FE UJkOyNFK0p mVhbQ plbmRvYmoK MjEgM CBvYmoKPDw vTmFt TH7WWT0wG6 N1YnR 5cGUvVHlwZ TEvVH heEZ4Dz144 L0Jhc 3PQt635C0s lbHZl pNijPO1ZZk xpcXV mJ0HdD89pm W5nL1 pknzBuc2yS bmNvZ GluZz4+CmV uZG9i agoxOSAwIG 9iago 0WN7IUJ8kG 0hlQm 2oA2MqoRxh ZS9Ue BBoGM9PgLX lL0Zv bnQvQmFzZU ZvbnQ zMEZujrW0d WNhLU AojSWbEL2p b2Rpb aqaT3wyLV8 zaUVu K90ihQ1tMc 4KZW5 tm1VaAsQrX DAgb2 ZnAtd3G18c bWUvS KGdiz0EiLI 0eXBl L4R6qKTpV9 R5cGU xYf4bkK6GX XNlRm 0nsB5EMNo8 ZXRpY 6AsKQ8yh4P pbmcv U7otSJ8mvI VuY29 pkZ7rMc5OV W5kb2 RpBmX0CWFr b2JqC ux6N0XqiE3 yU3Bh O4MbNXQ5yG NlR3J mgC2SePX5k XBlL0 lzINcsU1ej aWdod ZGcWN0RqPu 0ZXIv RmxhdGVEZW NvZGU pLSrxXJ6CV 2JqZW D0W4udAWBg IDE4M h1YvDSgEDL yQ29t gK3eHB10GN gvTGV vZ7IzBAY2P j5zdH IfKW0FhPhn wTEBA AAAwqD+qWc MH6AA DPHVEJ9J+2 OKjwp lbmRzdHJlY W0KZW 7ya1TeDrY5 IDAgb 1EeHiw9C2F vbG9y C6SdM9EwG8 lDQ0J dm4RgVKS2H DAgUl 2kA7MuwHvm ZS9Jb WEkEM0XSOc naHQg MjkvRmlsdG VyL0Z sYXRlRGVjb 2RlL1 B4rYPhSB5f amVjd T6PUCMdULR QYXJt uur3P8UmtT VtbnM dFBhjD8Zcr G9ycy KoI6FqRFAs Y3Rvc yGaJY9SfGJ zUGVy E38ksN0vNG 50IDg +Xo9GmLS0n CAxOD EoQ98fo3de MjQgM YAMP4rsguj 0aCA0 SOU6Z3tcwN VycG9 sYXRlIHRyd WUvQm m1z7FypyLg bXBvb zHsyLW8Jq5 zdHJl VQ0LzLwyhy lUVEf Wx2/iJHMm0 bhGWR qatWVzwSWO E+PES BHOkcdm4Lv aYjQR jQIaAiKgQN N00/v CqoCANoLsi 4ACsh nDJgFlURFQ UUFAQ POHTZj3ckW phkbR M22Tc44E5+ t671X d+tW9/3vrC T1vzN AIQ0q6f7xh F7s5N LVYxeTElfK Hr65/ 12/XxaRXhC ZXxGd B1Im2tJr/y wHa6w L0TYM/NQv7 7Ad8L oVF8ka3JEx ZV0/P r76OoLlKFJ x9DLe ZwSdNpv8Te Q9VNw nYcSz+1few W5hYY rjjJChRQIs DRNao vi6mjP2+10 hQp4I mExTpJZWNY 96/hq bHqw+Gw6Sj MM15z jaSKOcwD60 94EMH AQZF4hONdY 7jEck trRKAr7KrB np8fK iT0DC9tPa1 BjZqb Fhoyti88tF sqDNB nm7r4kHg2d GppTd rGl51/+qbW r/YI4 BnAGH0ZnIB 0GSP6 oXg3PQFe2X eAOZ5 YBO77qrUzl fADFe BEcozeLA3z YtDLE zhnxO9CT9/ zUZE/ ZnFFnbm2BH Ht5Oc VXslEU0kJa Vm8a2 1h3GDex8IB IsKc4 dY5ETjtIp/ Tf6aD 4B1vedWeGs igcAE JWpqboXUBm T/DCA cLExQ3d/3N wWIoW qoSSP7orD5 OehkB OYNc7/2xgC Y5QEq 8TxR6dxfza 3Nx8F AIAuRL/YJd zqnyr rXVpCOPN/Y ImLvm 8s36ESO+6Q O02zJ 7dRYFaLys7 FY8df xu3vu6gmmJ OmIuP rlixGh+ucO 8wjNt UKYJQBl+uv v/bJd KmSJx1zUBi sImEa 93l5h914zZ JFIx4 kHCswc29JT DHM8Y kUM4lbMNEm tBQbu f3E+zGkJMJ Wy3T7 1JRE5/X+Fy L93Sk ss1q2XHPMn J3HMR 2rH1ADBRXd METHc OeG8jXJlEn NzRmy 86F7PUVWwe 92Csv +yfOymJoCK O+rnL qs6J5rMchu qjPaE gQYVJlrDFH sl4xO +4iY02GwNm rInUH KBqWTQpxtu C8otq ZYfESPzCJj hjqXo IKUz5dC11y k/kdP Jcl5aOT8uh hhESm 90MW1zZPmq gOhGW HUiLvOa/NZ 80v4E lFzxSwkUlH CN2D7 33q9JiLII9 +5iSZ cTlFgwbhF3 YPI48 Citvm+8L9S Cnib1 19rGZtPDUT CLDeP pLJP6V2j8Q eyT2r K9o+0/dlFg wIaPb GDCYTBgfrU 33D+u sFuZN590Dd fCNNG SXsjY17WD4 GyxGX d9jvGz0UeS RNZaR 8IE5w+Xsa9 VPhBd 7Xg6xnHY6P Zs4jm 8cKM1VCG9j MUcr4 i8+KzrvwnO gyYdr 7ma7CcX3jM gEphQ /ZV6yQs3Na 4+W6C 1Vrj+UNKqA wno/O NtqBICZ0Qj cvNOM 2G5Zuon5xX QZGD3 f06EVP43Yy ekQE5 UTA21WXxL3 iCs9p T7ZxJfiKiT gV4py vCwo8We4fI Dtiuo c+BjmkTjlt anLn6 RMm2QlAOBt V0bbt wMG2h4qCNZ Z5jpl qLL8gmFOXC EV1jA 7BhvBPQxb8 8BBRc gOsdklImvp OZdB3 C5dYT1vdtp /KXyZ Q4T9TTFE49 ezPEg fXqy4EdeIJ Eu8Yu +OmaIzNsWD KqM8c n6GpbDYr1n yl62J 2TgxZiMEpj uBDMH ijkg4Z8OZ+ Xegtl bA+WRZY348 aDCAB LHyTdvhECj wS6tq rG50gGKY1B 8EHWx TaG0wxy0EH rQ8Pw uVPr248h/h OPqgC 4qb495FHTY Vf5Y5 mtxWMHYvAt /CIDJ zmg+8MIdYk x60O+ y2EvvEL0Ha D3Ml0 AtJjPFKW1E V1Lcr B3QKSxdn34 QDKJT F10E4qCXJ5 nNZBd mcOGglspoi XJ3jx hoBGeuDDNU nY0hU hGhBGaCCkr /3Kof 9Gy9vOP/Az SYoOB 6+0G/DgA1C mjxlF b1Sm0qCSJH MOZw5 UekoempGBE b/uUR EGR9c8LH0z QlyTC CDV23nOj9+ FyRPP F155bkoZSJ uE4+l +Wlal+UiCr +Jpuo 59GqFXTZuI IgwyV /sqpH2hLNw bSCW8 hHqEHUk6Nt ccujx 87nXfGLPI9 tjZsF EMiM40QH5f Z1neT Ef+kdzi3Oj IwkV+ h4YIQ1LFZ0 UNPkV P+0ecjT5Se y7j/5 UkcFRCqSb8 S1ftI CYTuuDczk7 XZNFl 7KyBmVV4nR +vbk6 eQ/y0uIQfm LbMEr QUSNVVxxf+ ivlXf ePIeSx0NSE pMras lfIDk76R6b C+VEZ LtDCnbj+oJ /7hT2 ILx57PlceO xECst rxDJcApFxi /hg4A H4SWn7E8Q5 vHD76 l06qJUQneJ d/margarita cLuK1Bg7bg rrRo+ IHt/EMsrrb An7dN HAkyU6/aLL pn7pg 37d8XK8qRj gJYgG 4+h9SXq/Ce 4o3pM 9PU0VNr7tE R1SW8 7dcvoVIkJk llVJ3 unHCEh3I/t zciGC chlcxGOFni +XE5F mL3DHFPQ3A oT2Xf oAZT1GgBbV qu83g ipTApGrt+4 DgYZM tHJ/tIzaJt bFYND 2nE1TDGTFC dJsPS 1INV53VMKn sIOHU 64a1QTJenf 9kXhe Fjm9XSBE2n +tbZN tpFgHjVvoM 6IpP9 gb8bjWmAD2 ihHZ4 ZgkFyILuWI vwhFe abbWhKh0FY +znWf 0Up04ulcTW o+a20 QeDvNMj82j NFJ0U RAq+epnXZ2 OvulA WbKPf7Wyc/ 4LMwm yeq1tTkN6L G9oan 4CAP7Zlbac CnFSg DoxyQnAEcB BdDrC q0ibkv2AoP C2mk5 Q1ZjSU6pxK mw+Eg mGXOyl/tqI qKz2w 9qTxLUTZMm JyOe7 z+D1DU8w8Z 8xciL T6GNLql20r Vg2IV RXWC0k2wy8 8P4RG E/GpkYnOA5 81PJ9 wTjWI1+Cpm mG238 vf566DsmAm thkGt XD9m0ohynP lN812 hOOpAlamgx htt63 gdiNvxAitr Krq2O ZhPvG8Lg2R m+3/m CMnMOcYeyN Fa42x 90UpO1EuB6 ow9fF RjiXdWdUdv YMzwd DC8XMAGlbB mhTki 9XvDAiOaNF RGejy IsQmQWldfJ 3+tqt uxOXC+D9w9 9Ynam pa+eUjN32c blq+7 r2xYiWGnIM YLbnJ CO+vHURZQp e+qq0 sqp7L+VFbE ReRIv jG17UM+qja 5NtBK q1XaS06atx u3qF5 m5ZEBnR3wm I5I8W EROrKLyqtD ieYfJ Mm9dQPKxPD XVKbe OjwXJVpEXm jAKRh 4+fsG7kxH6 5RJLl nXKCqBapSO 181jF i4+Scciznk Yqczx wkUBxFiBDo EsWuI Yj0l+0dvbO xFtHh jZiw23cD6a DcpLj CG0MC6N3IF Hd3tw 2ezd1gy11z 2CMSk CSWe2YQX3N Urmrj 8ra3UImBGe UMkfR V93uQlX3EY cuPSF vNP9v19/C2 OyS+J ZUoQ18D20I rLMPx atbmOh6/OG JjI3N YfL5LbDeiL Ar3uK SWQM9w6XDk lADd1 NLxHJH+PPF a5QOc 9JOeXP9vTq +Lb9b dmpylmF8vx OFVrc WsmPqjgE6G 9dPo5 +hO5rZr22I v9OK6 GUYAxHD2gf QtbzO eHVgE2Pn8O ZJVCj JDvVqZ9tFF icaIa EmhBxRoSME sNguU 9UaOsFiMSO mwSe/ 4B9McUj5ac ErBjo AdFFJni3TJ z3Qrj xDBiq5D8IC 55nsJ QYbskPFnlZ QtmPo CexKA0fFXH eGDJZ 2O4uxpXl6c R+zll 5iu41cIkq1 kVRpe krD0NUgaZa 1zReP o9rLnO7jNO 0ILHE 6LqK0+hYQC orul9 blQ20emn0G xA1Gi 0beowo6wPZ uf9cs 0RswH9KXA3 TsyHw qI5vOCBqHZ 4t7Pf ozADoYgZfX 8bTFX ZUPvkTf2H1 0WT8a VshqZiOjxv 7GIlt 1vC1bB2NZO xN1sN 0j5Ep4BPZz N6dfy 33iCngcoUG vqJem 88Mct/LGfD n+Hk6 TsPXO+CJSd 8WrR4 p1HSsNcdL9 txOnM PG9QIp/7XW ZhprU Pt3G5ixqGD bK0iW oHjlidt2Jb /p0sd RN/LFNUXaU jstoy Rasj6czHs0 l00Gb f1ikRNuZ/h sRPX+ 1Vwbs0Hizk 1N94q BM3DRhqAq2 2zIDx hx8/aRftQe TguiF HldRqTm0Ev KAstC AlqnneB3Iv HEGYJ KnwiejhRGZ tg+TX kN/dbLZ6VN LvYyQ NaOF342McY MfU4g rCpSwAJCHF /Zmw1 GkIuE1yUnC +xik9 Pah/LXZ3dc I7h2r qMBAbrBOAy IAZlC rtB3Ccy1gB ypHIt GJdKK+sK6t q8I8r RhrlmNA7fE QyvFm XOit76DD4p Su88G d1f6W1fdkn SMM3K lO+u6eaohI 032k1 v6RR0FP2+W RcCV6 2nMNdDD0gI Lntgn emkDZYMKgM 8SsvH NRl1PxmY1T 38W5t Bbc2uDphZc owx3E OwEyel79rb XApuv +73MLrDyzZ KRM/9 2W5AwnE4sr kqplT VfV02NQbKS BMwR/ sbLi1ZtMGh rmCdx M4J9qeXvwT fvRH1 8SA5vmOzjr 4gjZN v5JyIFDG/Y v93AF FJemu8JJek uhsEF vggDdGy06v 44n3g YVgHvrQX4i zkuKz b/Q9vv4VVI Yn/HG QBo64ix/OY xcVjI 7EXIGf4CLQ 7xXiS JRiMEMG2rh tbSzz ZS6dVB8GoQ 52HnT oeDKwLKBrr /e3ZK A7HRuRLJvt ThWQ3 CX68IznAJy H71TR g38HA/6/dg bBVHf 4hFVTL/Oze +/oXJ jugserzcML TJEOk 6art69W/Li 7CwVQ d4w+kQVTXG EBvW6 AZPGOuIJzE y0uaK Juk2JTf2UJ p8BEJ /joqPH+8M5 OvPZC he1NZVmAhS 3ITe7 u2rUWvmEx7 xCY4A Jb0b8BExzD 30CTh t+eceqi3ON 2NE17 XSD8/SigJG eXc7o LCeurAF9oy zlI+m RY5o0opA7F JbOvz S+7uW8JNl9 DJTcp GptbdlHOTT f2QQy BCnXcIo+lP 0aciB 26l/Hs3z+F gKY7a bJQyvd8tL3 mbWlV /FlMyTz0Ai zxsvO 3RR1d0oO3+ WfX/l ige3RrxQ0N TiiVe O/SXUJYyAZ lN1jA C6gr8v5Vyi +xTNz wyVM34rA65 O8d0y wZvdGddaro O7uUX 6hZfQ1+Taqueria sP5RU 1/g0CS4Zfw KPCUu 41Z6nhV07b 3xhNg IONyOL1ogP joBVT Fjpj7/M1aI iV+8R 9Wega5nsEJ 5vLz0 lNU+WvOuw5 qcRTf xAl4r/e8AC PlpUl GXLIfI0o8A 6s23U 3z/1xB8P/O 0IKLq orgxgnJZeQ +rqal 1wYjeNG6cZ 31zel /iVej0WJ1/ bY+yO 2/qbjPB2JU 1uR7Y EZMgtdBz6E XzTB/ GOnRy65Nk0 CEpUn MUveW1pbEs rf/oW efmA8QIz/A jm04H VousJ3Yn+q ccai9 zrLKml1B/W WkVxz kZ0LeTnoB6 H31SY yuI0VQMSxa gwiQL PSBkL3rsN/ 7eIvC 6X4bM067cx Oitrm t+jpe1MssS G3Qpl bmRzdHJlYW 0KZW5 rw7PsZmLtF DAgb2 YfIpi6C7fh b3VwP FpbGe2HtyM uc3Bh jsMdG7oaGI B0cnV lM8yeFaBbm 2UvQ1 MgMTMgMCBS Pj4vQ 29udGVudHN bNCAw IFIgMjYgMC BSIDU eDGMAHR3Ey XBlL1 AyD8BqIjXj b3VyY 1ZfPXuwG66 sb3JT yNYgPKv2M7 RlZmF 7lUXFK0LbV TMgMC JSNc1yNJHe Y1Nld OCxJ6UJNxM vVGV4 kOEyZA4yB9 VCIC9 JbWFnZUMgL 0ltYW ovQY7aCv8u dDw8L 3aaXp8iLEy gMCBS P2ifhUDwGc AgMCB VY7lnL9ZqO jEgMC LNP3snQUJi IDAgU j4+R3tVKac lY3Q8 SI29UzG2RJ g2MiA yNyAwIFIva W0zND J6KnHhIiAp MCBSP j4+Qx3BHDN lbnQg MTEgMCBSL0 1lZGl aFp27TwLhB CA2MT IgNzkyXT4+ CmVuZ G2yqumvYnM wIG9i vop3HH6Pkp 91cDw 7W1HpQJIka nNwYX GbhnF4L3ID Wy9JQ 0NCYXNlZCA xNCAw GKEiJe3fU7 VidHl jKK2Hw8EpG 0ZpbH Sues5WfTL7 ZURlY 03lMC9KLEN yaXhb MSAwIDAgMS AwIDB sF8H9sWAsR E9iam XckK7Yj5Nf VHlwZ UMuF2Zhw13 1cmNl mnl2M0Uwz3 NTZXR qN7SGOj6MH Xh0L0 cnWMjaAb8E bWFnZ XExFR3fD9R JXS9Y X5IjQSC0GF wvaW0 sIMR1CvOwW jUgMC BSPj4+Pi9M ZW5nd GggMjAvQkJ veFsw IDAgMTgyID I5XT4 +y2UkUTNoZ nic08 /MNTYxtDAz UHDJB wAUPAMPCmV uZHN0 cmVhbQplbm RvYmo KMjYgMCBvY moKPD wvRmlsdGVy L0ZsY BMpZSGxf7N lL0xl dvl0dSIwWw Q4Pj5 qgPVrTY6Cc JzdWW 1v2zYQ/t5f QWDAY AOzzBdRIlv sQxJn b6v3LZ8tR8 sUgyK ztqT4MOkoR Pn1O8 oWJduRGskt hi1GY uTX0E3q3nZ 3ZBC6 W8OXsRBKZk KlxZF LHYvbUgqB/ Kifzp hNhEPRIEHv XunHs 4cJYthBLrc tShgm YT2EvdTFZK x+lzP Hz0YpFBK5p y9GDq OetBizMSZo En3qj MY/ve5+RpM /XiF0 Kro2u6TZk+ XfRQ/ ohfS3WnVbu 2yLgb oqHeFXRPCe DtciI lv/xPeTdZx 2UY+6 YoMjJQo9IU WC2ba v6Ks4dxMMy Kvhep 3GXpRzuUhW iyD1w ky5bsDHPpf NeYz2 n8IY1Rg6Ts m8/CV DoBT8Iq6TN zeVqj njx1L/rQsE OiryQ bRFC5O9qYo dFxs2 aRKrUAWzuS HbRTb gcB7mxtvGB DIzH4 NhcHVa9+ax 5qsTY nFSDtQ+FX0 iuai2 QYRYc7Ypon sEi4H ctPVj4eBVQ O3j48 owhd32O5wE hOflh /pCBE0tb5Y pR6l/ j0RC0ZRC08 R4dVm XZBydOY/Sx Qy9RH SLuOgMaF4I tH+zX z0v4JLLez5 UAVzL X+Tq3gwdCC xkfq7 vjufqn1jee fsE9y mmuDqSoCYd qWQwv Dm7OBn/fl5 NhVP6 m2idGfruGz SlgrF amOjI/T9W9 2u1Ms PhoJogVHUw 4zEAH IdiJjmrrbf HKLjW 8LceTQC8dm mngZe q/mJKHPC1C YQco9 vgD4evittf rxnPB +xMZS1QVQG 5TnXD WYcxec7Yos HR04o k75MUm8fl/ jpSRW nrR0PwRzVy NP4ST OGBoOgQFl4 alESC +NoGCYZ8to LtJM7 vPswD3+SVQ u9ima VHZ4w3BJ/V Mh9sy 4P7A4FmCL6 F06Ky gpPyQehlWe Ohixz csUxoftktH snarL M2kaHlzFAa VZBKF SQhFzk5wYV tLNrW CUvlBwttRl NmFqH eVzcZGr9d7 C6UFx apelhr/ZEX ezNVd xDLVfg8lX1 Pe+bq tiNsftvNhz Zzewy d8UqCEp5jf kukdL fW2AY/1fwr JKBHF hA8aJTDDvo LXd1t RXMBSrhluw LDbA8 0EWeTYoOVP /eWM2 Jra3ZOVtuI II8He Wl8rPUBkVR mYRd4 s4AGcEF8Bj 0qJYo IYre9uF+oJ VGYjz GgUg438i+I 5rD0A /oTxRACjvk d/w5f LZ3ZrMxlzd eERbI KERn1hW01s Bdi5M zdAoJrqIVM Cilcg zksT+bQMpk cdiVO bhPLAUGoRj hb3Ay CVPz1A1VZ0 hmwLz Wf3f8mtwBH eYdLS gB6wahN/f+ sgY0H dy9OarKVSI sfajb 8APHic2HNX OZSkB e/VkGYbz0r plrif lNzbOzq+Ms +2tXc tlwULRw9R5 RIuVu JYmfNvbcVd ufVeQ 5aycDPctIq L6Z7m bKChNuUtk4 RAFHa 0cVqvx1331 9Ie2/ NA/zk9qek3 XbhHe FNpcT3eNFS UrRc+ EC+vLawMBE 69Fuu aM6mQwtCQd HG2i7 kSTTvgzs8J 6hbDr VbaKaghOlZ KKLBV 0Pn7EQzVS6 EsJk5 EHAq361LO5 av90w BpvlFNMuvk v2mJv XusvYkVOkt tfEzI r+aFnFHBmq 46R6u q4H8gaVdnb zci/m gvOs47zlDA Yhsag I/TO68p+J0 qehuG xjgGZkXWOC Q9elw 9LH2QZhQNL yuIan lII0enMcp8 iprP/ /68BTEShPh 7YjUu /WfQ3FmwP1 ctayi NUC6hNgFCt 8KYs3 QzA4UqdPOi N1ZE1 dLf0Ut1V4f TnQLb 33NvZD6nYI ctjiV WjEAtDO79E O3ACc EZ4qlGWL2G RS+u7 hpQpvjltln sdX8l PklWQXxQaj VsPe9 jZttpi4w73 UtPA9 uo32icLOx6 pzrZf Lk+Rq5U/JZ DbDGo Tuca9vnJll WxcYK Zrf6MzrdRV MiWia T36y8GClLH I32ts duyzTwMYnV LDPC1 hTF+/AiR5T eCFbr BNbgnWjmBF twS0J Vc9FruP3ZB vXNi9 yoT5jm371P 9Yl81 lF9nMEgCDi WpUOE i/tgD2GtkG Hw6by E55Noz9wHJ J7EgT KjZn7ivafM 17YZF RocW3khce8 oxObf ns3MQv/PZn F0y1O RwPupro37F rFdSG NSHxxVHdNd 3dUkk fNQ+ekyiWF jEULe 5iRJKdC6WT rc5Ov I93OoERwfY bFmMP 0p2ALQEIga uwmiG GSFPlv2rZ5 PyxIb XgplbmRzdH JlYW0 ULO7kp3IvF jEwID Qjk4YoNcs5 Pj4KZ Q4hj5IgRdy gMCBv YmoKPDwvRG VzdHM gMjggMCBSP j4KZW 9cw8NuIaT8 IDAgb 4MdEzp8D0R bMTcg DENKO9oXGb AzNiA 2MTAgbnVsb F0+Pg plbmRvYmoK MzAgM CBvYmoKPDw vRFsx NyAwIFIvWF laIDM 2IDYxMCBud WxsXT 4+UiNbNO5y agozM KNsSS0dylm 8PC9E UuR3ELUqCb 9YWVo gMzYgNjEwI G51bG npHs8LRK2c b2JqC tHmAVSor5N qCjw8 H8VlQEemEW BSL1h FRyMoXkW2L TAgbn VsbF0+Pgpl bmRvY moKMzMgMCB vYmoK PDwvRFsxNy AwIFI nLTqcFZN0S DUyNC BudWxsXT4+ CmVuZ Q3vxxshOIP wIG9i rkl1UZ9IWr E3IDA vOl4KCYjgT zYgMT g6ZL44sSwl Pj4KZ M2ko2GrAjG 1IDAg z3VcYgd6O9 RbMTc yNUPIM5tWC iAzNi AzMjkgbnVs bF0+P gplbmRvYmo KMzYg MCBvYmoKPD wvRFs xNyAwIFIvW FlaID S0GQJ9XONv dWxsX T4+CmVuZG9 iagoz AwXnDV4eaf o8PC9 IKqZ5QZVgW i9YWV ogMzYgMzQ2 IG51b LrwIr7QDP1 kb2Jq TeC0QSCtz7 JqCjw 9V0TkVXjiT CBSL1 hZWiAzNiAz NTggb nVsbF0+Pgp lbmRv YmoKMzkgMC BvYmo KPDwvRFsxN yAwIF IvWFlaIDM2 IDYwN yBudWxsXT4 +CmVu RJ3fzcv8WU AwIG9 ghac5YM0QB zIzID ZaLt9DYWbi MzYgN sq3ZB33rAd dPj4K RG5ow9DwVk QxIDA qz9DfJsw4W 0RbMT vlYTRCD2cF WiAzN iAzNTggbnV sbF0+ PgplbmRvYm oKNDI gMCBvYmoKP DwvRF syMyAwIFIv WFlaI LG6FIXcBZA udWxs XT4+CmVuZG 9iago 2DfLxIY4ez go8PC 1ZUfT2NTHl Ui9YW VogMzYgNTc 5IG51 aWuwXk9BQR 5kb2J cCxX0BZQki 2JqCj m7M4RuBtWc MCBSL 1hZWiAzNiA 1MTQg bnVsbF0+Pg plbmR vYmoKNDUgM CBvYm oKPDwvRFsx NyAwI FIvWFlaIDQ zIDI5 MSBudWxsXT 4+CmV yLF5oyhv6H iAwIG 6nvmc9XX7K WzE3I JIqFq3ZLKp gMzYg MoG5KJ89sJ xdPj4 IHX0hm4HrS jQ3ID Gfx7GwUbp5 L0RbM HibVIUBJ4z ZWiAz NlU0DDMqnp VsbF0 +PgplbmRvY moKND ggMCBvYmoK PDwvR FsxNyAwIFI vWFla KZRkVJJ4ZL BudWx sXT4+CmVuZ G9iag s6OFXiTD7y ago8P R9FCeV2JPH gUi9Y WVogMzYgMz U4IG5 6kFmqGc0DY W5kb2 JqCjUwIDAg b2JqC ef1K1RwHRn gMCBS Z7uLErFrPm AzMjk gbnVsbF0+P gplbm RvYmoKNTEg MCBvY moKPDwvRFs xNyAw IFIvWFlaID M2IDM 1OCBudWxsX T4+Cm GlBE9bkks2 MiAwI J3zztn2EP2 EWzE3 LDHsGt8ABP ogMzY pFyS4PL78x GxdPj 3OEW5it9Gv CjUzI VXoj9CvExb 8L0Rb MTcgMCBSL1 hZWiA jCbW3SOZny nVsbF 0+PgplbmRv YmoKN TQgMCBvYmo KPDwv RFsxNyAwIF IvWFl pLDO1ADV2H CBudW xsXT4+CmVu ZG9ia og1OITkQL2 iago8 UO5NVbH0BR AgUi9 YWVogMzYgN TEwIG 40rOwaIo8F ZW5kb 3CnQbF7LCR gb2Jq Uzk7Z1CoVG cgMCB GP3dOZeMmC iA2MT AgbnVsbF0+ Pgplb mRvYmoKNTc gMCBv YmoKPDwvRF syMyA wIFIvWFlaI DM2ID UzNSBudWxs XT4+C uCoXX2vnrt 1OCAw MG4oftk1QB 9EWzE 5IUQeYw0DY VogMz InIsTlLC79 bGxdP i8SRJ5km9E qCjU5 RCObz9PgGi w8L0R bMTcgMCBSL 1hZWi V1ZnE9RuZe bnVsb F0+PgplbmR vYmoK NjAgMCBvYm oKPDw vRFsxNyAwI FIvWF yyNMQ2OGS3 NiBud WxsXT4+CmV uZG9i cjb5HPFaLL 9iago 4TQ2LIzB7Q DAgUi 9YWVogMzYg Mzg1I B18cNfpTw6 KZW5k c8VqYeWcAM Agb2J mIxs4A2DlO TcgMC EFN9jAStQu NiAzN TggbnVsbF0 +Pgpl bmRvYmoKNj MgMCB vYmoKPDwvR FsyMy AwIFIvWFla IDM2I DUxNCBudWx sXT4+ FkZtKS7sfp o2NCA xJY8ieuw9N C9EWz L7TZGhYd1G WVogM sJeOVF0GF1 1bGxd Jq9RSB7um7 JqCjY 7DAJre0SsH jw8L0 RbMjMgMCBS L1hZW bUuOeS2FeG gbnVs bF0+Pgplbm RvYmo KNjYgMCBvY moKPD wvRFsxNyAw IFIvW FxrLOU6KDH yNCBu dWxsXT4+Cm VuZG9 xmdc3IeDfF G9iag n7VC2TFiW4 IDAgU v0CXInqVnT gNTUy LI60jXdsCg 4KZW5 lw6NnMhN5U DAgb2 UeJlj6J7Tz MjMgM JAES3kWYhT zNiA1 MjUgbnVsbF 0+Pgp lbmRvYmoKN jkgMC BvYmoKPDwv RFsyM yAwIFIvWFl aIDM2 IDUzNSBudW xsXT4 +FxGlHT1rt go3MC JuNL3lset4 PC9EW iU5UVRwHd9 YWVog MzYgNjEwIG 51bGx fYx3MQX8rj 2JqCj ioEJIjd3Zy Cjw8L 0RbMTcgMCB SL1hZ YhCzZvS7QD ggbnV sbF0+Pgplb mRvYm oKNzIgMCBv YmoKP DwvRFsxNyA wIFIv HLgcGDA3JR YxMCB udWxsXT4+C mVuZG 8eftu8KqMk IG9ia or0DO4ULfH 3IDAg Jr1YAJqmNn YgMzU 5DM21dRlfZ j4KZW 2vy0LnQkd8 IDAgb 8WfUsw8N0N bMTcg EPUZE4pOKz AzNiA zNTggbnVsb F0+Pg plbmRvYmoK NzUgM CBvYmoKPDw vRFsx NyAwIFIvWF laIDM 2IDUxMCBud WxsXT 4+HsNvBC0b ago3N sExJE8pina 8PC9E WzIzIDAgUi 9YWVo gMzYgNjgwI G51bG xtGz2OKL0u b2JqC an9TLOye6Z qCjw8 D3NeURkwNH BSL1h XAgI2MvK8V DEgbn VsbF0+Pgpl bmRvY moKNzggMCB vYmoK PDwvRFsyMy AwIFI iZCjeYQW0Z DUzNS BudWxsXT4+ CmVuZ C6ptdl3HXP wIG9i aaq8XI1BGp IzIDA bFh5LDOqhV zYgNT W7RZ69pEjp Pj4KZ J3pq6SnLqf wIDAg d8RbKut6U8 RbMTc uSQHJR5mBZ iAzNi Q9JIRgjtUh bF0+P gplbmRvYmo KODEg MCBvYmoKPD wvRFs xNyAwIFIvW FlaID X2EIVpSXEp dWxsX T4+CmVuZG9 iago4 JtDlWE6ogk o8PC9 HHbZ4KJHpC i9YWV ogMzYgNTEw IG51b VgdZw2EIY4 kb2Jq CjgzIDAgb2 JqCjw 6O2IzOLeyK CBSL1 hZWiAzNiA2 MTAgb nVsbF0+Pgp lbmRv YmoKODQgMC BvYmo KPDwvRFsxN yAwIF IvWFlaIDM2 IDIyN CBudWxsXT4 +CmVu EB4cmiq9SN AwIG9 xejm4UR5TO zE3ID TzOu3LFZfe MzYgN ZFvJX15vXw dPj4K KF6qm6FcOu g2IDA ry6JtKka7Z 0RbMT qdOEABY7mP WiAzN iAzNDYgbnV sbF0+ PgplbmRvYm oKODc gMCBvYmoKP DwvRF sxNyAwIFIv WFlaI DD7KPF8THM udWxs XT4+CmVuZG 9iago lUNWjBP0xu go8PC 2MNQ5yk7su XzMwZ OU5KRA7DXW iY2Qt IHMaZh4oXu Q3LWV mIsFjMjV7A zNjZC kgMjkgMCBS KF81N sEiZNL9Zp8 xMTdm LTRlYWUtYT FhMS0 fYfu7HLwhU zZmZj EpIDMwIDAg UihfN zK5RNF4FjY tMzFj TL84XSFyIG hlMGM cQFS8R0VgL mE5MT G8BHUiFRVq IFIoX pK9LYd7RWN lLTZh OTYtNDVhOC 05YzB lKPpiEhV7Z jM5ZT UyMikgMzIg MCBSK T78HAIgNDM 1Yi1k NDViLTRiOG EtOTQ uAK2fHJN9E zVmND dkZjEpIDMz IDAgU yanKiT6JRD wYzIt PCHzJi02Ls A4LWI 4OTAtNWJmZ GQxYj liYTEzKSAz NCAwI FIoXzcxOGQ xZjQy WIA8S6QoRI FjNy1 eJXO3WGH6V GM0MD C0NUViTskf MzUgM UBELO40ESK jMmNj Ot36GEOoBW RiMDk jZeW2MX0xA TUyNG M6E9M8ScQh IDM2I DAgUihfMWN lNDkw YzgtMjZkNy 00MjV oGIc5NAFfF WFlZW T6KJq1EUGo KSAzN yAwIFIoXzF kYTI2 YmUzLTBmMz ktNDk 6Ed91OSX4F TQ2OD ejTae2KTOo NSkgM zggMCBSKF8 xNTk1 A0OlJk4xBi RkLTQ 3NDEtYWRhY S0yNz JfZln6I0B3 Y2YpI VJ4GAVcDdf fNjU5 B6N2CcWmUS MzMS0 0NDYyLTlmM WUtMT ZlMTdmYjYw ODI3K IS7QJTnUFL oXzc3 YWEzNDMwLW UyZDI gOXQtLy7pA 2Y4LT djZThkYmUz MWRhM ykgNDEgMCB SKF8z MjdCNjkxRS 1BNTU 4LTQyRDctQ jlFNS 6CTKCiPsW7 NDA2M DIpIDQyIDA gUihf PPh7NXJ7NU ItNjk sVH00DwYkQ ThjZD EtYTVmYWMx OWZhN 5CgODD6GhO wIFIo QrS4IASyUE gzLTJ kMjMtNDczM i1hOT q0XPIqOFV9 ODMwY pY1PPidTSG gMCBS KO6cXNOdLJ gwYi0 4YWFkLTRkO WUtYj J8DQ60GtEx OTJiN uH0BFDjIGZ 1IDAg UihfZGNmYz MyNjI wJkGwMF37L 2YyLW D0RUGtEfY5 N2ZmO TEyYzgyKSA 0NiAw IFIoXzVjYz kwNWV cTSI3SfrgY GI2MC 90ELBdATN9 NjNlN GNmMTAwNik gNDcg FWGZIH8fMm FhMDF cWD6bJOK4Q TQwM2 XgUbW3Yu0h NWM0M TcxYzAyMGI pIDQ4 IDAgUihfZm FhZTk wMWQtMzQxN y00ND MxLTgyODQt MjM2M zZmOWJkYmY 5KSA0 OSAwIFIoX2 NkYTU 5L8IcFTE6V TAtNG CbQE93EHZ3 LTkzM WK0REN2VPA jNykg NTAgMCBSKF 9kNzI 0EOnhQo98W TM2LT QzYjctOWUx My0yO Es5NOCcSnI zZGUp IDUxIDAgUi hfOWI 8ESSmB4DdJ Tg3Zi 31GWO3SXHy ODgtN ua4VAX0Pqy lMmUz RRP0AwWgLO IoXzk pNSS5UaNbE TgzMj BdVUWuKz8e NWYwL WYyMmUwMzZ hY2Q4 MSkgNTMgMC BSKF8 9YzG0VZI2T C03MW A1KAErTYEk YjdkN G86VAWlGeR zZmYx YvQdDQL0AW AgUih iLxyeWJX9N DgtND vtTJ00L8J1 LTlmM GMtYzgxZDQ 0MjY1 DRd1HZJ2EU AwIFI oXzQzMWYyM jA5LW R0HdkuTXiu My04N DFmLTIzYzA 2ZGY3 MzljOSkgNT YgMCB CHO1CXqXnA TQxMy 01ODgzLTRD MDMtO SR9WC0ZMRx 1MkM3 RTAxMjQpID U3IDA gUihfMGFjO DI0NW QrOCT1OQ61 ZjVkL WJlYmEtYWN jNmQy NBO5HgElIW A1OCA hVOSrX3PiI 2U0Ym J3EZKbN4Qv NDI3Z H93GBXeWWa lMmM3 HQzeVLN5Hu kgNTk rLJGORW9rW zFiMG I1JC1yEoAc LTQ4Y zgtYmViNy0 xZmM5 CbMaEMX6Al YpIDY wIDAgUihfN mNhYm EwMDEtMjUz Yi00M WMyLWFlOWI tOGEw WDZ5DAD0WR RiKSA 2MSAwIFIoX 2FhMT Q6OiPpMWTo NDQtN RJoUW49BTC jLWQx WwJrQpJ8UF k2ZCk gNjIgMCBSK F82Nj WaPZRdQz9n MzExL TQwZTYtODU zMS03 OGVlNDViNz FkMTg pIDYzIDAgU ihfYj DfYYY3VHSn MDJkY b63RVOaARP 0ZTgt R2YxYNPvYT dlMmN vLLI0GXFcI FIoXz o2JIRkRkK0 LTQ3Z GQtNDQwZi1 iZjEw QXSkXfN5Cc dhZTQ yMCkgNjUgM CBSKF 9mBDFnUcI6 Yy0yM mNmLTRmODM tODAx Fl7gQmNxEc Q2Njd tGIwmPUH5X DAgUi wcUPH2DIU7 YTUtM QR7Wm12MhC 0LWJm ZjctNWMxYW NhODV uIwZjKPT2V yAwIF KqP6OjAcep MjdkL TliMTYtNGJ hNC05 MmIyLTVkZD E0NmJ mMzgyYSkgN jggMC RHKZ6sMoHe ODRlZ U3fIgXxZQB zNGEt OPD2Kz0jXB E1OWZ jMGVmYmYpI DY5ID AgUihfNWRj NDYwZ XIdYuN2GV5 0YTE0 LTgwOWUtYj k4ZjM 0NTc2Y6OcC SA3MC AwIFIoTUtN Ry0gR LboU6ocqcu lIFN1 rJ9ctyspBB cxIDA gUihfNzhjN GE0Yj EhFbTxYW42 NTQ3L ThhZGYtOWU wYTI5 HOk2VQJ3YG A3MiA lRKKuR0N0B zNhYT PdBCY7F5Mw NDhlZ E31TmYkFUt 5YzA4 ZjNkNzQzYy kgNzM pETEUJW90B Tk2ZW Z8En15UPH8 LTQzN WMtOGUxMC0 xMjQ1 KGL4FRYhAD IpIDc 0IDAgUihfY TQ3Zj YxMDctODcw Ny00N SDhJFr4NJe tZDFh WCEfYwA9KP k5KSA 3NSAwIFIoX 2UzZm JhNzhhLWRl MzMtN VZiPm6eWpv hLWQw YXV4WrJ7EM JiNCk gNzYgMCBSK F81Nz F4LpBhHu88 ODk4L CW0YMCsMdn 5My03 CFLaW5K5Qa U2NTc rPSk5RQDbI ihfM2 FhOTFjNGQt YzllZ W93RsMkBFS 3NjUt NzIyNGZlOD A1ZGE lAGJ2MPCkX FIoXz e3VSX0ZKEt LTk5Q kItNDVDNS0 4MTk4 AIjJFiO6FS IwOTU xNSkgNzkgM CBSKF 41X0JcVIXd My1mM 2Q6DEHlQCI tODM3 Rw6hOkK3Xm U2MWU mY1PxSPawV DAgUi hfYzExZjk0 YmYtM mwnBw06ZWM jLWFi OBByI9I5WY Q1ZjQ 6HMfjGSF0U SAwIF SfY5WkS9Zk OWMyL FP1ZhSiNJW jYS04 YzdhLWRiMm M3YWV iMjgxMSkgO DIgMC SDTR63NLO9 NzA3O J5xFqsjWJM 0ZmQt MAe1OS7pQT E3MWQ 9KvM4YEFoX DgzID AgUihfYjc0 MTk3Z TctYmUxNy0 0ZWYy LWFmZWItMG ZjZDM 0ZjRlNTFjK SA4NC MaIRIlF7E1 MzZkY mIzLWNkOWI tNDhl IM55EBzzZT ZkOWY 5NTdiNmNkM SkgOD OoRKPXOA1m NjM2N QArYS91JAY 4LTRm MwMePEJ8Hl 1kNTc yNWIyMzYzN TkpID k5ADXcOwhw ZTI0M NN7I6JdHFP zNC00 OTdjLWIzZm QtYTI zAPZwQ4VrF jcxKS B8DmOrLUPy Pj4KZ D3ib3FwIuC yIDAg i0BaYhe4E6 Rlc3Q nPDqIXe4qC GlzY2 hhcmdlIFN1 bW1hc tnqW2KguSl lPGZl TeTjOXA5FU A2OTA wNzMwMDYzM DA2OD AwNjEwMDcy MDA2N zAwNjUwMDI wMDA1 MzAwNzUwMD ZkMDA 2ZDAwNjEwM DcyMD D8DR1iODLl ZW50I DggMCBSPj4 KZW5k m6TmNpf3LB Agb2J fJsk5L66mH ERhdG UoRDoyMDIw MDQyM jEwMzUxMy0 wNCcw DGzfQ8LvKG F0aW9 wOKA7MJlXS jIwMj AwNDIyMTAz NTEzK e25YcMbIhr vUHJv ZHVjZXIoSW JleCB CXPEtO6VfN XRvci P7KfwrYF5l NS84N LL0CJvNMHB BXVAv UlgycV6ngS ZpZWQ gdXNpbmcga VRleH AnQw9pEohv YnkgM VQzWFQpPj4 KZW5k s2BqElzcNO YKMCA 4OQowMDAwM DAwMD RyIFM4MMN6 IGYgC jAwMDAwMDA wMTUg MDAwMDAgbi AKMDA wMDAwMDEwM yAwMD AwMCBuIAow MDAwM KPlLSc0ASR wMDAw AH1vOnDsZB AwMDA zMTQgMDAwM DAgbi AKMDAwMDAw MDM5M CAwMDAwMCB uIAow MDAwMDAwNT I2IDA cDZBuPY0pW jAwMD AwMTkzOTAg MDAwM DAgbiAKMDA wMDAw MDcwNCAwMD AwMCB uIAowMDAwM DAwNj QwIDAwMDAw IG4gC jAwMDAwMTk zNjkg MDAwMDAgbi AKMDA iHFUdRKB6T SAwMD AwMCBuIAow MDAwM JG6DAQ6TIE wMDAw CA8qNiRjHG AwMDA 3NTcgMDAwM DAgbi AKMDAwMDAw MDc5M iAwMDAwMCB uIAow MDAwMDAzND YxIDA wAKIxWW9aC jAwMD RdTWG9TQEm MDAwM DAgbiAKMDA wMDAw Otl9OjXvKY AwMCB uIAowMDAwM DA4Nj UxIDAwMDAw IG4gC jAwMDAwMTI zMzIg MDAwMDAgbi AKMDA wMDAxMjQzN iAwMD AwMCBuIAow MDAwM ZPgJuD1EKE wMDAw JF6kDwBaUI AwMDg zNjIgMDAwM DAgbi AKMDAwMDAx NzAyN iAwMDAwMCB uIAow MDAwMDEyNT M1IDA sKUCmOH8xM jAwMD JdBBU3JAkx MDAwM DAgbiAKMDA wMDAx IhY5HqZeKH AwMCB uIAowMDAwM DE3Mz YzIDAwMDAw IG4gC jAwMDAwMjI xOTYg MDAwMDAgbi AKMDA wMDAxOTQyM yAwMD AwMCBuIAow MDAwM UJ8ZCxsIRJ wMDAw RJ7lNnChJZ AwMTk 1MTcgMDAwM DAgbi AKMDAwMDAx OTU2N CAwMDAwMCB uIAow LXBoLHP4Mc ExIDA eFHJwQA0lZ jAwMD TnXBo7SDmr MDAwM DAgbiAKMDA wMDAx OTcwNSAwMD AwMCB uIAowMDAwM DE5Nz UyIDAwMDAw IG4gC jAwMDAwMTk 3OTkg MDAwMDAgbi AKMDA nOBCqMOx8E iAwMD AwMCBuIAow MDAwM DW1SGhmGDY wMDAw GW7qEfJuKR AwMTk 5NDAgMDAwM DAgbi AKMDAwMDAx OTk4N yAwMDAwMCB uIAow MDAwMDIwMD M0IDA qYEZuGU2oS jAwMD AwMjAwODEg MDAwM DAgbiAKMDA wMDAy MDEyOCAwMD AwMCB uIAowMDAwM DIwMT c1HYZyNBYs IG4gC jAwMDAwMjA yMjIg MDAwMDAgbi AKMDA xTMTpUSE1G SAwMD AwMCBuIAow MDAwM EJaHpN2TPF wMDAw GY2zHhMkBJ AwMjA zNjMgMDAwM DAgbi AKMDAwMDAy MDQxM CAwMDAwMCB uIAow MDAwMDIwND U3IDA uWSFiDW3pT jAwMD IjIyW6BXAl MDAwM DAgbiAKMDA wMDAy JCG6OPPzAC AwMCB uIAowMDAwM DIwNT q2UAUgEUNl IG4gC jAwMDAwMjA 2NDUg MDAwMDAgbi AKMDA aYQCfXOC8P iAwMD AwMCBuIAow MDAwM MDjLmX1PCX wMDAw VZ5yKiJpPN AwMjA 3ODYgMDAwM DAgbi AKMDAwMDAy MDgzM yAwMDAwMCB uIAow MDAwMDIwOD gwIDA eRSShFL4iB jAwMD GhUfA1Gfhk MDAwM DAgbiAKMDA wMDAy LAw8LYOqAL AwMCB uIAowMDAwM DIxMD IxIDAwMDAw IG4gC jAwMDAwMjE wNjgg MDAwMDAgbi AKMDA wMDAyMTExN SAwMD AwMCBuIAow MDAwM DIxMTYyIDA wMDAw NV7hKtIcRZ AwMjE yMDkgMDAwM DAgbi AKMDAwMDAy MTI1N iAwMDAwMCB uIAow MDAwMDIxMz AzIDA tBCHcOY4nU jAwMD AwMjEzNTAg MDAwM DAgbiAKMDA wMDAy HFR1EfUeDB AwMCB uIAowMDAwM DIxND G8ZAPuJNHv IG4gC jAwMDAwMjE 0OTEg MDAwMDAgbi AKMDA wMDAyMTUzO CAwMD AwMCBuIAow MDAwM SKqPAl6UPJ wMDAw HG7mKfMgLM AwMjE 2MzIgMDAwM DAgbi AKMDAwMDAy MTY3O SAwMDAwMCB uIAow MDAwMDIxNz I2IDA qSIMwBQ9zJ jAwMD CfIxE9VoJi MDAwM DAgbiAKMDA wMDAy MTgyMCAwMD AwMCB uIAowMDAwM DIxOD V6ZFRrVMVl IG4gC jAwMDAwMjE 5MTQg MDAwMDAgbi AKMDA xAFRzYNa4P SAwMD AwMCBuIAow MDAwM MXuBDT5LUN wMDAw RI3eEoXsKN AwMjI wNTUgMDAwM DAgbi AKMDAwMDAy MjEwM iAwMDAwMCB uIAow MDAwMDIyMT Q5IDA gAMBzCE7zL jAwMD AwMjUwNjkg MDAwM DAgbiAKdHJ haWxl pso1IV6Aar ZvIDg 2YQEnPc2RW CBbPD L1ZAAwVBOf NzU3N GFyEbMlI3L 3MTA2 YjBkMzhjYj cyPjx kZmQwOWYyZ jZiNz YxYjQwOTA1 NTdjY 2VhNWYyMzM wND5d E2Xaf5IxAq AwIFI uX9b5OPP8R T4+Cn L4YHY1jSYr ZgoyN YC4KDwfYJF PRgo= ID Date Data Source [id number] 08/12/2019 12:12:00 PM EDT [facility] Name Value Range Interpretation Code Description Data Supporting Source(s) Document(s ) Physician No [id number] QKJeL [facility] - [id number] G9iag [place] [id number]9Q 5cGUv Center Cq9ypM5WOK NlRm9 zqX6CKGa6F XRpY2 RoZN4fd9Gu bmcvV 8yjBM1zqFD uY29k dV3nVj2ZAW 5kb2J qCjIgMCBvY moKPD wvRmlsdGVy L0ZsY CJqHDMqs0L lL0xl odx9mIXvJW 4+c3R yZWFtCnicK +QCAA YsEUjRTH6d c3RyZ WFtCmVuZG9 iagoz FKWhy8DmRh w8L0Z pqKNrnt4Ne GF0ZU CuK80iCR7D ZW5nd GggNjk+PnN 0cmVh tDk0zJHN2F rk0o/ INFAwNFAIS eNyCu EyVDAAQkMF I1MLP XNTBQtDPQs jhZBc Ct6HoHIBdN h+Rad uRtwGr4xDR yAXAL LpKa4KCT3m c3RyZ WFtCmVuZG9 iago0 SPAni9BnUk w8L1B aV7SVn5UiU 1VzZU 5vbmUvTmFt ZXMgN SAwIFIvVHl wZS9D MGSqsY2fO0 91dGx pbmVzIDYgM CBSL1 JhC9MpLApi MCBSL 1ZpZXdlclB yZWZl wjLeG3IqHV ggMCB RUm1UFM7ht 2JqCj cgMCBvYmoK PDwvS 1hfv2p3ATG gUl0v QUjzUK7ZDD dlcy9 Un9GmsMToS 0lUWF KzDb7yBxzz Pj4KZ S6dq3VqUsX gMCBv YmoKPDwvQ2 91bnQ vJW1HyPQkm CAxMC AwIFIvTGFz dCAxM CAwIFI+Pgp lbmRv YmoKMTEgMC BvYmo PYk5JX3HBH XNlZC AxMiAwIFJd CmVuZ D7qbiqqHdY wIG9i umh0XJ5PdR x0ZXI vRmxhdGVEZ WNvZG ZcKELdE0Vt IDI1O TYvTiAzPj5 zdHJl QK8OxHxklo dUU9k Wh8+9N71Qk hCKlN UymGKJWZ78 SJEuK jEJEErAkAA iNkRU cERRkaYIMi jggKN DkbEiioUBU bHrBB jR1IGnLKcW SWStG d+8ee/Nm98 f935r q86M7Udynq a6AJD 8gwXCTFgJg AyhWB Go97ACqJcq YAcBD XIST2kG1JW zs0IW +FLLaDY26S xsmRP 1N324SqE2+ yrTP4 zBAP+flLlZ IjEAU JiM5/L42Vw ZF8k4 PVecJbdPyZ i2NE3 OMErOIlmCM laTc/ SnI4j9hGTM OfMyh SkWl3EC0kU w5Nwn 8887Xx4AvC AZF+c I+LkyviZjg 3RJhk DGb+SxGXxO NgAok gko0bLHQLq tY5Io QxBb91kM8B jJX/D KM3nQkiCRK 8XOzF ouEiSniBkm XFOGj ZMTi+HPz03 ni8XM ZA05nHKnSg iZGVk h4EAWPm/8W RR5bR myIjvYODk4 MG0tb c9z6L5j/Ju S93aW XoR/7hlEH/ jD9ld +wP4KgYTka dn6h2 1gYJCe9wDJ u/2Hz WAvAIqyvnU OfXEe unxeUsTiLG crq9z aCAlPe4boR +jv+p 4Lt9NtgJ1I vt3v5 AN813I7uzP xQ143 yfW4glOOkW 7icPk M5p+H+B8H/ nUeFh A0AA3IR7BW RMumT CBMlrVbyBO IBZlC irZ6e2v8Z0 P+pNm 5lona+BHQl lgCpS BbPD0hTXgk ESAJe 6Wn1C59L5I [place]/nN y9RFmH10j0 L+fVe 1UI6JQbB/j mNHRD Z1EoTC7Sr7 WgI0I ABFQAPqQBv oAxPA BLbAEbgAD+ ADAkE oiARxYDHgg hSQAU QgFxSAtaAY lIKtY CeoBnWgETS DNnAY rAQj2TR8To 6By2A Q5WPUIC2wy CnwCs xAEISFyBAV Uod0I EPIHLKFWJA b5AMF QxFQHJQIJU NCSAI VQOugUqgcq obqoW boW+godBq6 AA1Dt 3DEgYF6ZPy HIzAJ psFasBFsBb NgTzg IjoQXwcnwM jgfLo L5aCWgH4yC 7oRPw 9frRDjET7E nEYAQ ETqiizARFs JGQpF 4JAkRIauQE qQCaU EroB5jK9nG SJGny FsUBkVFMVB MlAvK KsCP1fDAuG ahNqO qUQdQnag+1 FXUKG zN7IKGYojk zdHO6 UO6MToZwPx uRleg s3Ma2DRuOa Q4+hU Ij7YhxPBZH H9MHC YVswKzGbMb 0445h RnGjGGmsVi sOtYc 64oNxXKwYm wxtgp 9DJdEhbO0n n2DI+ M4hNK5H3w9 Togrx FXgWnAncFd wE7gZ vBLeEO+MD8 Xz8Mv xZfhGfA9+C D+Suzy VaX8qJwqRR QiphL pUM3SN5T7k LeEEk EvWITsRwoo C4hlh DLUC0Nxxqn iVRSG YkNimBJCFt Ie0nn BHoNe2np7y GZA9y TJtU1mByRf 8h3ye /UaAqWCoEK PAUVi vUKHQqXFF4 pohXN EH1OMvbdH7 YoXhE cUjxqRJeyU iJrcR HNoQOe2KH0 YbStD UQ4CW1PYuM ebNyi /ZY6PmRHPA I4kPh UYoo+yhnKG NUhKp RFGY87YRNF upZ6j gNQzOmBdBS aaW0b 2iDtCkVioq dSrRK nkqNynEVKR 2hG9E R6Tg7Gwzz+ nX6O1 TaYK9Ijymg 1TbVK 6ww5fxqpik x1UrU 8dNF9I4wZ6 R91NP Tx9r4ca/TQ GmYaY Ux8Jzu0Lfl 8XQOb F1MBG0klmg H59zW bRPLXQI2X9 ju0xz KlUlT8oUYd tKq0j ky2PVvga5k naq9Q /kF2mPSCgf NR6Cz Q+ekzmOGCs OTkc6 rEBEtecL6g f11Jb q2pkZ4O9xS elF6h Llrvmt7Pfp s/ST9 Hfq9+lMGOg YhBgU QiUr3UqECO MMUw1 2G/YavjYyN Yow2G HUZPTJWMw4 wzjdu Cj4aAhJuT6 lm0mB yzRRjyjJNM 91tet sGEoL2DtKl MRsyh 64pfYDuc02 HLdAW ThZCiwaLG0 wS05O Dl7tvmjvOJ YMtCy 00KJ6ZYWzB W22z6 gr5wE8aiL4 daH3H mfVJjYVo04 Pzq62 IKgg8tqnvN PJc37 mv23cFiO2d bse32 2O0407mH5L /wb7X /nEVv7CAau 1h0tH GGrIa0tVLv 8YKY2 9olXqOB3e8 rXY65 yWA6hNU4Bo Y+RcX pryiC6lNl5 nG8/j zDbtMnae6v lzrXa WyYAtWx94u Unddd 457g/sDD30 PnkeT v2YlhGns27 HPZ17 WXiKvDq/Xb Gf2Sv Rni1Lil5xJ e9CH4 hPlU+1z31f PN9m3 9NpGf64uxx 8pf7R /kP82/xsBW gHcgO aAqUDHwJWB fUGko JDU3WWWtz0 CRcE9 OUNGOJc1lD vzDec T48rOwvZW1 O2h98 XQh5cYtL+O CQ8Lr wl/GGETURD Rv4C6 YMmClgWvIr 0iyyL tTXxTGbV1h xWjE6 Kbo1/HeMeU x0hjr OUAtn9I44z TxHXH Y+Rw19vivt f6LNy 4jZrYDuV36 foi40 A5ad4y6nxn vvj4E sUlnCVHEtG JMYkt ak53nNfYuu TSgKW 6T8u0bT5s5 hOeB2 6Zb7Vggn/n TyS5J yQaWQo4Zw9 ePJni vtFI5pDPCo QLnqf 0i6ofjp7PB duf9i r9Co24U0hQ mHFUS BGmCfsytTP zMoez aKNFw3WCyU ftXDY gJyD5EERNd 7K7xT CWz8VTmGCe XjKa4 5ZTk/MmNzr 3SJ5y tiRcVBaX6u 3LJ/J 9879egVrBX dFboF ijpgB4dvkD +lXQq qWrelfrry5 aPb7G k99JjJF4wT t/KLQ iVO64bC7mS U+RVt AfkzF5fopc ixWKR zY4MbsrsSk I2ijY RAsj5htmJT 9LeCU NE32CS0jfn +Zuvv vAnSkWZ32d krRls RzevU6BcOi h1uvb 3LcdKFcuzy 8f2x6 nzSDZK5gMu pc7l+ l1ZCSQYrfY sEuyS 1oZXNldZVC 1tep9 kDo2GC6VXF utZu2 n5ti9qoty3 PHY01 xjMWzq291j YO/Ne r/6zgajhop 9mH05 +e62Inj2w4 36url Vg7x06xY+4 X7pgY hHck3Mnx6r mi1lr XCrpHXyYML By994 c3Pjsltld6 e3lx4 ChySHHn+b+ O31w0 GHe4+wjrR9 Z/hdb Ks9i1XN3zk eOdWV 0iXtjusePh p4tLf Thzkdu6ao3 x/TPV BcOBY88PwL iaITn 07mn5w+lXX q6enk 52S5L3avyO k9c60 vvG/wbNDZ8 +d8z5 3p9+w/ed71 /LELz qhSSjNo2Ch kcKlz pI5h9dh3Sq oGHQY 9vddJku30K e4Znj c60mw0rpLT va+eu qGa6sOZ/JH h61HX p48IzUT7sp v56Fb 7rjd6c51R8 FlzF3 075I0GbIq7 mvcbf kC8oA2vBZ2 +6j06 0UTJgwih5E EnP2X /1O187KN4W cWEzk ElP8aQjeM9 Jy8/X vh4/EnWk5m nxT8r /7h1gAPRq9 94/DI wFTs1/lz0/ NOvm1 +ov9j/0u5l 73TY9 F5QJn8iZwg 8UX9z 4C3rbf+7mH cTM7n bpv5iM8a+6 PkY9P Vlr3tGq93B 94Tz+ wplbmRzdHJ lYW0K QX0ks6XtNh EzIDA so1NfXau6V 0NvbG 5zE4OsL3Vx RGV2a IDgL8KmsC9 IZWln aHQgMjkvU3 VidHl lGU8LbRTjY S9GaW e8UXPuOqxh dGVEZ WNvZGUvVHl wZS9Y B6TbUGO5A7 dpZHR eAII1Zv0Rm XRzUG XuH69fxJ4k ZW50I FggJFCbH6K oIDI4 Gh2mhPPmRV 0KeJz twTEBAAAAw qD+qW bKU7GHWUSF AB4G+ 2OKjwplbmR zdHJl SO6HRK7li3 JqCjE 9LQHhw9BbP jw8L0 AtdE6nO8Bt Y2VbL 2aRO6Xnr9F kIDEy KENuCh3wNC VpZ2h 5FRS4P1W8V nR5cG VfDI7gY5Hg Rmlsd NSsK5EjMIH lRGVj p7QkH3SpR2 9kZVB hdf8dPPtnM 29sdW 1ucyAxODIv Q29sb 3JzIDMvUHJ lZGlj xU6lJSD0J8 JpdHN OSUZZq60ki 25lbn QgOD4+L1R5 cGUvW Z0vcqMwxF5 XaWR0 aCAxODIvU0 1hc2s gMTMgMCBSL 0JpdH UHOMKUa59n b25lb nKpFS4GypS lcnBv dMZ0UFN6ce VlL0x akvs1pEE9F DQ1Pj 3twRLsQM3E eNrtm wlUVEfWx2/ iJHMm 0bhGWRqatW VzwSW OE+PESEKMi iua0T gaYjQRjQIa AiKgQ NN00/vCqoC ANoLs q5LNbpeXNv FlURF QUUFAQJRFY Kq6ka BocwtKT98X d97R4 +t671Xd+tW 9/3vr JZ8qaMPAF7 r5x2e zX6h1QAJFu eTElf KHr65/12/X xaRXh FRUtVzO6Rr 4qOf/ jdCc2lB2SY M/NQv 40Sr3CkNQ5 zc9NW mZV0/Ps75G kRfLF Wg4MQbYwQx Eoj8X eY1WLdaRuU z+1fe hG9vYApolB ChRQI rHTEmabh6v uL3+1 3oMx7HqCdR pJZWN Y96/hqbHqw +Gw6S pFU13xheWM ZbxM0 394EMHUHTZ 6hCDy V0wRyfzqJI Lc0Cd Xbd3aUaE6I K8rCv 3BjZqbHmam le12v XpxQNLls1u 7uRl3 hGppTdrGl5 1/+qb Wr/BS4IgMF D0AkN T8YYW5fFe6 ARQp4 UcHND8ZEB5 5ojYe afADFeYQia fzJT4 aYtDLEwmgx I5ID7 /zUZE/JeZU xzo8E JUd0KaTXbu XS6eJ yVz5r47x1S Xja2P BWkSz1hF2L LudVk /Jw5vT7T5j hyRlQ eigcAEJWpq boXUB mT/DCAwYDr N1f/3 NwWIoWbsRY R2shC 0OehkBOYNc 7/2xg PZ1PUx9MlC 9tfcd w3Rf2JQVZb RL/YJ dzqnyrrXVp COPN/ EFbAsm3l57 SOLOMON+6 MN71pC1iOZ EaCgk 8AV4huck0o p2ujn WOmIuPrlix Gh+uc K4fiToRLNL QBl+u vv/bJdUaDH k4rIC crCgNa58v1 h615u CPYDy2zNMl dr60G QFIS8SvYY3 giIFJ qoGTshs6X+ zGkJM CUj6H06OWD 5/X+F lW93Xgsu2h 4YUGM mV9MOB7eP2 UKECH sMETHcGgT6 yKVxP jEmGhb75Y2 BRXCk l92Csv+yfO ymJoC KO+euDvw7D 4vInz dqjPaEgQYV JlrDF Hsl4xO+0cM 90FqQ jrInUHKBqW TQpxt tH0yfrDCzP SPzCJ jhjqXoLIHh 1rD97 lk/kdPRud0 hNS6z jrjUVq92CK 7vNOg ygOhGWHUiL vOa/N C12w0NlLbq SwkUl WYJ5Y457n4 UiCGX 8+5iSZcTlF gwbhF 4FJW02Lskw m+8L9 XKdkx715gS ZtPDU TCLDePtYJL 9B0s8 AacQ4gB4d+ 0/dlF gwIaPbGDCY TBgfr U33D+uoOtZ W298I cfCNNGIZgt I64QW 0ShpHSa2nx Wn3Bh FMRIhE3GB2 w+Xsa 6OPbSr1Ag9 xxCY6 FHe1ez0uRF 2KTL0 oIPxo0d7+K zrvwn WekZyz2bl6 EvF1f IgEphQ/JV5 nKl1M r4+L2F4Rww +UNKq Awno/OKnmN OJN4Y igvPHC9J8N mdh4j BSLIV6j11J JM40K odhEQ1FVZ6 5OGzN 5oAk4cJ0Ir BywRk SdB4lguIsm 1Wb2k SDtiuoc+Bj mkTjl eynWc6LYg4 TgBID xH7xsejJC9 p4pMM KI7crtxGX9 dwNJM QYW7wW3Zdd GLRor 98BBRcgOsd klImv gGYhO0V3lU Q6ifx u/FAsHL3Z7 XBIA1 0ezPEgrAja 8GuvG ZEu8Yu+Joy IzNsW JLcG8rl9Ur eJJr6 ctd59Y9Ycc ZiMEp juBDMHhedn 3U9BA +XegtlbA+Q PNN09 3aDCABLHyT dvhEC hrQ0tamQ02 qBGO8 O6PHQiUhT0 aqt9L GzA7TqtFHa 538a/ eTAhoQ7ky0 28ZSH UPs4Q4cihW MHYvA t/CIDJzmg+ 8MIdY kx60O+g6Ya iGP6V bJ2Sl1ItEg UJFN1 ER0FgiP1QW Wqcj7 9IGFVYI48E 4xOVL 8nNZBdmcOG glspo zDK2dphzND euDDN ZlG5oIwBhU GaCCk r/6Pry6Cn7 lJJ/A zSYoOB6+0G /DgA1 XqhpvDn6Yz 7fNAD JABXe5Fcsg empGB Eb/uUREEE5 s4YL5 eQlyTCMLI5 8iTo7 +HvWUFU166 tfnEK TuE4+l+Wla l+UiC r+Fwlf41Kp FXTZu IIgwyV/rosales E3zIE swMHZ0gMjQ YOu1A uakcyu00xU kPWCE 3tjZsFZXeR 60LO8 uS9igFDe+w qod7E iIwkV+d4TD E6MXO 9UNPkVP+5p vfU3R jy7j/5UkcF RCqSb 1E8shSJZJl uDczk 7DSUTx7TaW wNH9r O+vbk6eQ/h 8hAIb bLbMErQUSN VVxxf +ivlXfrUAx Ck2HB SpMrasznYN q02B5 nC+VEZLtDC nbj+o J/3eL4BNh8 8Cwer AxECstrxDJ cApFx i/ru6BI7ZV l9I2E 6xUW88z72e XMHyy Ad/janaImW 8Zk3y yrrRo+IHt/ EMsrr sXf7kOPGoc U6/aL Sec7rj86k7 FH5xR egJYgG4+h9 SXq/C w7p8yF5DM1 XWa3d ZG8UU45ady oVIkJ enyBO9ptNQ Yf3X/ tzciGCchlc xGOFn i+BY7XqG2K IGPD1 HwW1RbfRPE 1NiSx Ppm79wtlZT pGrt+ 4DgYZMtHJ/ tIzaJ cnDUFN5jB5 UQHEY WbYxRE9DLL 65ENH tpGHUV72h6 VICzc a0hTibZfr7 JTWS4 r+tbZNtpFg HjVvo D6GpX4sd2g oRkZX 2heIM8WuqH yILuW IvwhFekduL pIq8C P+pkHc0Jw1 4mjoM Io+z28BkMa SIo88 gAAG0TVYh+ epnXZ 2OvulAYmIF o0Ttu /2AIladmd1 qMzQ2 WK9nwf7CTW 5Aruq aCnFSgDoxy QnAEc DQfUvIp6ly vh3Ka JB1bk6X3Kh YJ6fk Vmw+EgmGXO yl/tq GaXx2i9sWs LUTZM iEfZk8e+K9 LV2e6 G5edsOI5ZX Fkc22 fFj2RHTQLB 8y9bt 50P3UNI/Gp kYnOA 977GD0qGoF I1+Cp kyX124hs15 3IgrG absbFjIF3k 2jrdg HiG651rZGd Alamg ywys28gzaC vxAit fYsl4JYjOk D0Uh4 Im+3/mCMnM OcYey RWq60p56Ht V8AkY 7nq8gOUprR dWdUd oVYuuuVX6E IMSgk AxwTnt5RsC AiOaN FRGejyIsQm QWldf J3+tqtuxOX C+D9w 99Ynampa+r NnL97 cblq+7q8yI mYIiR EYLbnJCO+v HURZQ pe+wk9snx6 L+VFb ENfCLkzN30 UM+qj z0RtRZi4Tu U71wu br4kU0v0UE IdD2o qW8K8XUNMl KLyqt RudCtGDq2s CXJhG AXVKbeOjwX JVpEX mjAKRh4+ei E1pzX 15RJLlnXKC qBapS L002wEe4+S ccizn kYqczxwkUB xFiBD nVzQhCZj7x +0dvb OxFtHhmTkl 97zQ0 vYreHrTG3E Y2J3M MXm3up4mwj 5vk13 n9JPXxOCSy 8DAQ8 WTkvbv8vt3 YRoZI vVDmfRJ19x FiL5H YcuPSFfXM5 z66/C 2OyS+JCLfO 56X09 CrLMPxatbm Oh6/O ZXvQ7GMdJ1 NzQkd AXh0lLVIWK 7i4GG diOBo5YRfH JH+PP Yr1HZs2BIw PI8mT z+Nk2ykygf lyF9b hOFVrcHyjS ocwD0 Z9dPo5+iX0 iJa66 Kg7ZP7GCCY hZZ4e eQtbzOnRBw U1Vh5 JZJVCjAUlR wI7tI QicaIaEmhB xRoSM ClAzdZ5CgU sFiMS OmwSe/3R5P kXo0d oErBjoEkOV Xup3I Tt5WpvpRCy y2S3K M58olTHSdb kPFnl ZQtmPoWcbX G3mNQ RfTOKY1A3w iyHb0 zR+lrx2yi1 2wJlj 2eVVlksgH7 AQkzD c8nKaAt5fT xC8gT D3ZYVP8VhN 0+hYQ Plbof3rlX2 7yzl3 IhH4Qm3qzx tl6mX Big1ds9Zat Z1EEB 5IufSgaJ8q YYQqR H7w4CyxuWZ oYgZf G9iNNZLPFk rPe6B 36LV4dIlwv ZiOjx f2OWft1iF3 eU4TS XyH2oG7t4G m4POM xI3lvc91aX ngcoU VdvNnx61Ap t/LGf Dn+Sw4JfZG O+CJS m3RhD1m3JH lStyS 5bvOpMTY1H Ip/7X MZcakDBj4S 9yksD DuZ8kSmBlx uax6S c/p0sdRN/L FNUXa UjstoyUvxh 4uoDw 5b08Cxm3mw GKyX/ hsRPX+2Nxv k3Wli a9T74zXZ3D CtrHh 30vPGrqw5/ aRftQ eTguiFKbvG eUy8K tKAstCLjsk vwR6Z aHEGYJKnwi ejhRG Ztg+TXkN/a xWC3R GLvYyQNqDL 107Ba MKmK9zbMbH wAJCH F/Mpt2VpGb Z1yMh M+sja8Nyj/ LXZ3d qM9j6tsPIE brBOA yIAZlCvlD6 Tbk0j BypHItGJdK K+sK6 fc1D3gBgoe jVK8m PQyvFmIFow 23YJ5 iZa32Cb6m3 Q5goy jGQC5HkS+c 4htff Y106x6p8ML 5YA6+ OEwIZ28eDG wMY0c KLntgnemkD ZYMKg K0JgsJZZo1 FlrE9 G24H2jBvt2 yVpuH auxq6UVvGo uy80j rXApuv+73M LrDyz ZKRM/98S7L agN8j ckqplTQmD8 1YHvO MBMwR/akHh 4AxMJ wmlCjxR0W4 rhIye DveMT65OW6 puOmx v3snFKl9Hj FAXH/ Ft05BTXAlk q9AXb zuhsEFbceX iIk05 t53g6vBKwD bzQZ5 gzkuKzb/Y9 ra0NK VYn/HGXGl1 1lf/O NfbUlI3KLP Gf0EC B5ePgAOUqU XFR4v zkxMrcNX6q DT5Xb R13TyXwkBV wLKBr r/g0BGD9AD fISUl rTkKX5LA73 WhvSE jJ61FJu09N A/6/d naIHRw3lVY TL/Oz e+/oXJjugs erzcM MMHFSd1qco 97Q/L l1LiVTw1z+ kQVTX ZBFrS2HSGR OuIJz Xi6mgZGuw2 DGx6Z Wp8BEJ/joq PH+8M 7QlXQIym4S RApMd L6BAk2a4fI FvmYj 4qIV7XVh7x 1PHku F81WNks+oz ppq5G W6OU72ZEY8 /SigJ MkTr7nRFln vRP9c azlI+mUX3t 9kfX4 PJbOvzS+0r G1HUt 0DJTcpGptb dlHOT Tg7KElGEvI business development coordinator+l S9seoA46m/ Hs3z+ StZO4goYCc fx4fP 8mbWlV/XuL eWj8H jvlejY0HL6 v2dQ6 +WfX/lfvo2 ZtsU0 JTiiVeO/SX UJYyA ExL3yER8bf 9r7Is a+xTNzlnNF 37wH3 2K3t5ofLqi Gddar wD4kUD6qJm Q1+Jm ecO0UW1/h0 VO6Ee aMFLVl68T9 rhO97 r2lwYlHTQk LX3jt FjoBVTFjpj 7/M1a IiV+8R0Stp a2pbY B1fFb2rHC+ WvOuw 5gjBRbpQa1 r/e8A CPlpUlKBLE jE6p7 S6s06X0m/1 xB8P/ D8IQOyhozb gnJZe Q+tunh9uUk bOJ1z M31zel/vCq u7VQ8 /bY+yO2/ce lVU2N G9dD1PNAEj ouNt5 XXzTB/UWkV d13Kh 6CEpUnJXos Y6dyG xrf/oWkbeH 5FHf/ Ufc97PEdrp B4Dp+ trsli1ohJY ms0D/ HMgUwhdP1U eTtgQ 3O12UUvfC0 CALKb mgwiQLKZEt O8pvS /8pDxU4N8o A552o tOitrmt+sn v8Plv XN3VuoucPi dHJlY B1NHJ0wr8R qCjE1 DIDyw2BgZm w8L0d lj1OcEErsJ y9Ucm Vor3ZfcvOf Y3kvS ZR8evBsP5m gZmFs w2VyS0DzFC EgMCB SYw8mK48or GVudH NbMiAwIFIg MTYgM CBSIDMgMCB SXS9U nLKmH4MyY7 UvUmV jt8VtI3UgK DwvQ2 4jj5YUwRSp ZTw8L 2KsXtO3eSZ SR0Ig MTEgMCBSPj 4vUHJ aT5LjbRNkC 1BERi RpKEX1pLYr SW1hZ 1VXFM2JuJO nZUMg X2kkBYhhAT 0vRm9 hfNv9L6fbZ m8gMT uoQLQBW8ha bHYgM MohVUXJR5a pMCAx CQIsSv4MPA 9iIDE 0RMAyXf3+L 1hPYm vvK0H1HU16 ZzEwN lR6RbLcRHU wIFIv jT0uXRFvAS EgMTQ gMCBSPj4+P i9QYX JlbnQgOSAw IFIvT KRaxDQLu0n bMCAw AAItUhI4DG JdPj4 EAD3ji7JxK jkgMC BvYmoKPDwv S2lkc 1sxNSAwIFJ dL1R5 cGUvUGFnZX MvQ29 1fsYhAS8CR XJlbn QgNyAwIFI+ Pgplb mRvYmoKMjA gMCBv YmoKPDwvR3 JvdXA 5GH3VE4CdQ W5zcG ZhPT9qgG5J U1svS UNDQmFzZWQ gMTIg MCBSXT4+L1 N1YnR 4rZFpBb7bh S9GaW b0SVUoCeqi dGVEZ WNvZGUvTWF 0cml4 WzEgMCAwID EgMCA oDV3XlKItB 1hPYm aiM0AlRl9h bVR5c DBrHB0NSZF vdXJj NZA6HW9Yie 9jU2V 8Cz9JSLIcC GV4dC 9JbWFnZUMv SW1hZ 0HXQ6dyFKm lSV0v SI5uzdYnsJ w8L2l bMBF0DVkxL DE0ID AgUj4+Pj4v TGVuZ 5WqBVBnZ1I Cb3hb QZNqWTD6Hs AyOV0 +QxY7moRyl Qp4nN JSjTD6ZIRx NFRwy QcAFBADCgp lbmRz pYNuSH4RUI 5kb2J lIoZ2WIEfd 2JqCj j9S8PxnJMr ci9Gb VF1DPXxX55 kZS9M TJ6cePvnAC QzND4 +b3EuFOExA nicvV zAc8n2AZ8y r9DMv ZiZYiTZkq3 2iQJt wAapC91e3t 43N65 NhugKEvM9i 39/a4 GdE0EL6C0e k1iyJ K963295csW 6hohP EYZfKpArbI Y8ym3 sOiO4IPu29 ieCOR YOGmbotzfF cDWYI Akw2GYAwbR BxIGh 0RONmM2A3+ YJ9W7 khwzB1+DRz MOoK2 zHcTEmKFj9 ZU1mv 7zr/I2CX98 gNAre wOE9gqbAo4 JDmXC VB51DtYD6q gNwdR jOp4DmAVFe E1+t3 4+ibJfmHdS lno+s Ffq6vwbcC6 R53K8 FOIQR2/61C Hc3A+ 8XXHG7vEaq jQyTf Zs221urEtQ axog/ d5KFhWexZ7 dvNWD /bjb+rDvzW mjmsL LBoDpCE7Js hYl8h IxsDL5W8fW jTZ6l UnRqd1T444 Eutr5 2XDTDnZHV9 jY2DG 8/NG1A5/LV CbEZq eZrj/o9Ilh DxmLc mkqieXsBxi B04Wb bHDkunOvzY xBuCj krrLIc4xB7 h24Ry qjbbQxaK/j PtwNI DwJ+BuPbad NZw4s DtBXWTMqF9 st9b1 iNmi8tljKX H7c4V wiYskOF2bV ky4tw ptInk4MGVl X1GQM lqCXGcDwf3 PRnn0 p5pmQJC/uB mx1xO MA5m3Kzn2G dFZkP T9MzoNM4fE e3pjs g8zyNICnzf GMAZ5 3ALZ0lWAqK uCvcI 7dG79pS+2G Yy14Q r2S9a/sMaY NcBs+ lRq1V2E0WO GgKKi e2x+v1EQCL E1xuA 5BVGUfMZp9 zyKLd SpZCJsqg/s fpttJ /sBtqOS3Tx TrM48 nLMP2X3YTL RyR8z qD98BiZE1h Glbjr QTbPoTW5Bi 3Ije4 fhvJ0V4AUR ofpoq ygECTdSUJ1 aDx3E TtXlVPz1rg IZDuz zsZMTTPjSb 6UpVO 4LMkS6vwPH OT6Nr 02CBsZxeuC RlNO1 okMt/IoENE 5045F 2biR/UmYhk +yGuC kRKx4C3ixx 6b1YP kue+iYk9/x ug5kq a2Dadr1smh E8A5s XYGkHx4FqH BJ7Pv C0zOw+t0zd /v1MF VPoJTarvAx 4agLS CIZy7sfVR/ ZxlEc Yh5CLbiqDS 8q1Wo LdM1EMcJFJ La769 oEFFAXwKgQ aIUYx BcQCbUFSnR v/0j0 6P3/BC1h6W f0O0o mH9n2k64OC 4PxGJ ugt9xHn3gm gaipz 2heGPiTNjL HOxgE isfYupXX6v mbk+p ScExeb20wh ZO5xO YwEYoRVoub bkuLq 7Jkmj71K+x P04q6 yg0LU8J1yo Qg+t1 1lv4Y/7MEm wgkJw xLTVdk8AQD 1atzl yg9EIDkRDv fXCv3 B/hH9CBkxb U/Lev kSr+1RLxsU x6VNK 2E0Lh51wKI rS/jw cicdupSpbX zqBeM X3W/pRXtqj pmrcB no/a2NEuZ9 EwT8X cn395DeU5/ hYCWN vRV+HdlhXq wvnSQ D+ItD06JCG 6gvjT kjVBL9nwXQ 7OPt7 OJqZHTovdz NyjcH p9Dcel79jI HOgyJ 1KAarif7XK 4KHoo hFyU7oxY4Q pdP2u 2x6oauiCy2 hP7/u eJQITArDX5 VqTDG 4ciGIkDPKJ VGjfd NVE2xRfAgF JDLYK ndaCzz3WeG AuurX R716Ae6X5I OyyPV bYd99BZhPN lRud2 gOyVlr9fNv 0rV3i RS7NmwB4Ku HOZ6I 4r9NrmWrHX qcqHE J4h8+GpUeD Fzpgf zicz2yDF44 L3lVd 6yr8a0iChh LXKnD mZsz4vcs5h LKIbS b9bFnBhLNx y5Jmz hHjaPV1qso d0868 LDkBnneXHa MXzMw x4Eo9mVV8i JctZ/ o/5k6DqCDG kyRbL TDKs3qfFRI Lk4PC MFyu20bKOY QC0JT OBuLyd3Ml/ cKIF7 2cHQUxyQ8z JS9JS Wl7+vKmtfG vctlC NOh3Ewr7n+ msxwh OmUIqRDt7I k6bw7 9M+cevhCVf Ev0x+ 5ewplbmRzd HJlYW 1KIZ6ls9Jk CjE5I UXeb6TqOpg 8L05h bWUvSGVPYi 9TdWJ 9xXAmB7M1v GUxL1 J0qNLvKk3z dC9CY VXaYz0yrN8 IZWx2 DGGvN5TuP7 JsaXF 0CR1PecDlC GluZy 6GqZ1CynSv RW5jb 2Rpbmc+Pgp lbmRv YmoKMTcgMC BvYmo KPDwvTmFtZ S9IZU MkS6J6EaG5 cGUvV HlwZTEvVHl wZS9G k439R6Dua2 VGb25 2A0bdmFAkn GljYS 3Wv1omN6Th Y29ka R5wD0dgguJ uc2lF bmNvZGluZz 4+CmV nOY9ysarcK CAwIG 5vzcl9PB2Y YW1lL 4qhsEJnJ4X idHlw PV2WlNXmYP 9UeXB xI0JfyuTdP mFzZU ZvbnQvSGVs dmV0a MDqH9EbN13 kaW5n Q3plwpDym0 lFbmN vZGluZz4+C mVuZG 3qkfl7CZIc b2JqC eo6Lp0IWM9 kb2Jq CjUgMCBvYm oKPDw vRGVzdHMgM jEgMC SVCo3HSY5k b2JqC fBbPKAuz9O qCjw8 X9CaWLMwLI BSL1h LMcDfAbP3M TAgbn VsbF0+Pgpl bmRvY moKMjMgMCB vYmoK PDwvRFsxNS AwIFI uDZefVTZ0Z DcwOC BudWxsXT4+ CmVuZ D9enujiJJC wIG9i pur7QD0XHa E1IDA sDu2MMVulH zYgNj W2CN51bUac Pj4KZ K5qv9HuRoX xIDAg p1CsRkt8M9 5hbWV iJdqeY1YaR jhiMG LdDWNgKQ14 ZmZiL ThmNmUtOWU 0NDY3 BNj3PGvuMG AyMiA wIFIoTUtNR y1QaH avaQDgTC8q Q29uc 3VsdCkgMjM gMCBS BV44W3FrCJ JiMi1 xHZA2ATGcA DctOD E6BD31YABz NzYwY 2ZlMTcpIDI 0IDAg Ul0+Pgplbm RvYmo KMTAgMCBvY moKPD wvRGVzdChN S01HL PLxdODzU1e hbiBD b45idCt7IL 9QYXJ lbnQgNiAwI FIvVG j3hXJ9ReGw ZjAwN UZfNDA9YBM 3OTAw LwUsTOF9MH A2MzA wNjkwMDYxM DA2ZT AwMjAwMDQz MDA2Z jAwNmUwMDc zMDA3 NTAwNmMwMD c0Pj4 +UqUhJC5xt goyNS EsGB6fvgm2 PC9Nb 2REYXRlKEQ 6MjAy ZER8QKRoFh EyMzA tMDQnMDAnK S9Dcm VhdGlvbkRh dGUoR DoyMDIwMDQ xMDEy MTIzMCstNC cwMCc eF1Lwh9E7Z 2VyKE liZXggUERG IENyZ ID5f0MfTI6 5LjAu MTUvODQzOC BbSkF ARJ3BH8F9V G1vZG lmaWVkIHVz aW5nI AuFPYu3ZXF uMS43 FCQ7BIRMP5 hUKT4 +ZuRfJC3ze gp4cm VmCjAgMjYK MDAwM DAwMDAwMCA 2NTUz NSBmIAowMD AwMDA yFDZ0DYPzO DAwIG 4gCjAwMDAw MDAxM DMgMDAwMDA gbiAK MDAwMDAwMD E3OSA wMDAwMCBuI AowMD AwMDAwMzE0 IDAwM PQeSM7bNvY wMDAw MTAyNjEgMD AwMDA gbiAKMDAwM DAwMD C5JAAoSPVh MCBuI AowMDAwMDA wNDI3 IDAwMDAwIG 4gCjA wMDAwMTAyN DEgMD AwMDAgbiAK MDAwM WYiZPW4DLK wMDAw MCBuIAowMD AwMDE kCJo1MTSaD DAwIG 4gCjAwMDAw MDA1N DMgMDAwMDA gbiAK MDAwMDAwMD U3OCA wMDAwMCBuI AowMD AwMDAzMjQ3 IDAwM MQwHZ9dJcH wMDAw AQW1OjZoCE AwMDA gbiAKMDAwM DAwNz czOCAwMDAw MCBuI AowMDAwMDA 4NDI4 IDAwMDAwIG 4gCjA wMDAwMTAwM zggMD AwMDAgbiAK MDAwM PCzMIK7LsJ wMDAw MCBuIAowMD AwMDA 5OTMxIDAwM DAwIG 4gCjAwMDAw MDgxM zkgMDAwMDA gbiAK MDAwMDAxMD QzNSA wMDAwMCBuI AowMD AwMDEwMjk0 IDAwM LPvIC0xMkY wMDAw MTAzNDEgMD AwMDA gbiAKMDAwM DAxMD Z1WLFrLIZc MCBuI AowMDAwMDE wNzMw IDAwMDAwIG 4gCnR yYWlsZXIKP DwvSW 5mbyAyNSAw IFIvS HOkQbfdI9F 4MzJm AxOvUHN8FA ExNjl qPaX4XDHuG 2VhYz JdIn90OvSg YTM2N rM7RIJnPnM mYjMz HDZuU1YzX1 UzYTA 4ODM+XS9Sb 290ID MgKIOJP1Kx emUgM jY+PgpzdGF ydHhy IHLSADD7EZ AKJSV FT0YK ID Date Data Source [id number] 08/12/2019 03:36:00 PM EDT [facility] Name Value Range Interpretation Code Description Data Migdalia rce(s) Supporting Document(s ) [id number] Negative [address] Test Performed by: [facility] Department of Pathology and Laboratory [address] [place], [place] [id number] LHUW# [id number] Colten Guzman MD, Director CD:[id number] [facility] ID Date Data Source [id number] 08/04/2019 12:22:00 AM EDT [facility] [id number]} [facility] Patient: BG DUTTA S Age: 63 years Sex: Female : 1955 Associated Diagnoses: None Author: Tiffany Hartman, Layton Biggs Basic Information Addendum: Pertinent history: While awaiting transf er, patient managed to evade her sitter and left the ED. KEVAN BRAYAN was called and juan linette was stopped across the street by hospital [...] will be a work up told h er billing is diff / she said she would advise reg 08/03/2019 09:57:52 Comment by: Ebony Pettit verbal consent from poa/ verf info ins from prev/ crime rosales per poa /papers put in pt chart Ebony Pettit [id number] [place] [address] [id number] [place] CHUYOAPRMITRA [id number] signed by Layton Allen MD 08/04/2019 00:22 EDTElectronically signed by Jennifer, Abdoulaye 08/03/2019 17:54 EDTElectronically signed by Jennifer, Abdoulaye 08/03/2019 18:11 EDT Name Value Range Interpretation Code Description Data Migdalia rce(s) Supporting Document(s ) ID Date Data Source [id number] 08/03/2019 11:46:00 AM EDT [facility] Patient Name: LUZMARIA INDIRA SMRN: [id number] General DiagnosticACCESSION EXAM DATE/TIME PROCEDURE ORDERING PROVIDER [id number] 08/03/2019 11:03 EDT XR Chest Portable Violeta DOSherrell Auth (Verified)Ione son For Exam(XR Chest Portable) Altered Mental [...] Supporting Document(s ) ID Date Data Source [id number] 08/04/2019 10:55:00 AM EDT [facility] Name Value Range Interpretation Code Description Data Migdalia rce(s) Supporting Document(s ) Hep B Core NA [facility] Test performed by:[employer] [place] Cindy Land M.D. ID Date Data Source [id number] 08/04/2019 08:51:00 AM EDT [facility] Name Value Range Interpretation Code Description Data Migdalia rce(s) Supporting Document(s ) Hep B Core NA [facility] Test performed by:[employer] [place], [place] [address]NezefsqjJose A Land M.D. ID Date Data Source [id number] 08/03/2019 05:07:00 PM EDT [facility] Name Value Range Interpretation Description Data Sup porting Code Source(s) Document(s ) Hep C Ab. Non Reactive NO [facility] Test performed on the Siemens ADVIA Cent aur XP using a diagnostic immunoassay. ID Date Data Source [id number] 08/03/2019 05:06:00 PM EDT [facility] Name Value Range Interpretation Description Data Sup porting Code Source(s) Document(s ) HIV Non Reactive [facility] 1/2,p24 [facility] This test was performed on [...] permitted by law ID Date Data Source [id number] 08/03/2019 12:36:00 PM EDT [facility] Name Value Range Interpretation Description Data Sup porting Code Source(s) Document(s ) Glucose Lvl 121 65-99 [facility] BUN 16.1 6.0-20.0 NO [place] mg/dL [facility] Creatinine 0.73 0.40-1.0 NO [place] mg/dL 0 [facility] BUN/Creat 22.1 7.0-29.0 NO [place] Ratio ratio [facility] Sodium Lvl 138 136-145 NO [place] mmol/L [facility] Potassium Lvl 4.2 3.5-5.1 NO [place] mmol/L [facility] Chloride 103 98-107 NO [place] mmol/L [facility] CO2 25 23-29 NO [place] mmol/L [facility] AGAP 10 5-15 NO [place] [facility] Calcium Lvl 9.4 8.6-10.0 NO [place] mg/dL [facility] Total Protein 6.9 6.0-8.3 NO [place] gm/dL [facility] Albumin Lvl 4.5 3.5-5.0 NO [place] gm/dL [facility] Glob 2.4 2.0-4.5 NO [place] gm/dL [facility] A/G Ratio 1.9 1.0-2.2 NO [place] ratio [facility] Bili Total 0.5 0.3-1.2 [place] mg/dL [facility] Alk Phos 63 IU/L 38-126 NO [facility] AST 19 IU/L 15-41 NO [facility] ALT 14 IU/L 7-40 NO [facility] ID Date Data Source [id number] 08/03/2019 12:29:00 PM EDT [facility] Added by Discern Rule [id number] Name Value Range Interpretation Code Description Data Migdalia rce(s) Supporting Document(s ) eGFR-AA >90 >=60 NO [facility] mL/min/1.[address] [place] [address] The CKD-EPI equation for non- Breann rican [...] Mild decrease* G3a 45-59 Mild to moderate gyvpmqihO8j 30-44 Moderate to s evere decreaseG4 15-29 Severe decreaseG5 14 or less Kidney fa ilure eGFR-ELIZABETH 81 mL/min/1.73m2 >=60 NO [facility] The CKD-EPI equation for non- Breann rican [...] Mild decrease* G3a 45-59 Mild to moderate erpygwshU2c 30-44 Moderate to s evere decreaseG4 15-29 Severe decreaseG5 14 or less Kidney fa ilure ID Date Data Source [id number] 08/03/2019 12:24:00 PM EDT [facility] Name Value Range Interpretation Description Data Sup porting Code Source(s) Document(s ) Hep C Ab. Non Reactive NO [facility] Test performed on the Siemens ADVIA Cent aur XP using a diagnostic immunoassay. ID Date Data Source [id number] 08/03/2019 12:21:00 PM EDT [facility] Name Value Range Interpretation Description Data Sup porting Code Source(s) Document(s ) HIV Non Reactive NA [facility]24 [facility] This test was performed on [...] permitted by law ID Date Data Source [id number] 08/03/2019 11:50:00 AM EDT [facility] Name Value Range Interpretation Code Description Data Migdalia rce(s) Supporting Document(s ) TSH 1.00 0.34-5.60 NO [facility] mcIU/mL [facility] ID Date Data Source [id number] 08/03/2019 11:36:00 AM EDT [facility] Name Value Range Interpretation Description Data Sup porting Code Source(s) Document(s ) Salicylate Lvl <4.0 4.0-29.9 LO [place] mg/dL [facility] ID Date Data Source [id number] 08/03/2019 11:36:00 AM EDT [facility] Name Value Range Interpretation Code Description Data Migdalia rce(s) Supporting Document(s ) Ethanol Lvl 0-9 [facility] Result created by Discern rule. ID Date Data Source [id number] 08/03/2019 11:35:00 AM EDT [facility] Name Value Range Interpretation Description Data Sup porting Code Source(s) Document(s ) Acetaminoph <10.0 10.0-30. LO [place] Lvl mcg/mL 0 [facility] ID Date Data Source [id number] 08/03/2019 11:35:00 AM EDT [facility] Name Value Range Interpretation Code Description Data Supporting Source(s) Document(s ) Troponin- <0.03 <=0.05 NO [place] I ng/mL [facility] ID Date Data Source [id number] 08/03/2019 11:32:00 AM EDT [facility] Name Value Range Interpretation Code Description Data Migdalia rce(s) Supporting Document(s ) Ammonia 27 mcmol/L 11-35 NO [facility] ID Date Data Source [id number] 08/03/2019 11:02:00 AM EDT [facility] Name Value Range Interpretation Description Data Sup porting Code Source(s) Document(s ) Neut Auto 75.7 % 50.0-80.0 NO [facility] Lymph Auto 12.7 % 14.0-44.0 LO [facility] [place] Auto 10.5 % 0.0-12.0 NO [facility] Eos Auto 0.5 % 0.0-7.0 NO [facility] Baso Auto 0.6 % 0.0-3.0 NO [facility] Neut 3.9 2.0-8.4 NO [place] Absolute x10(3)/[facility] Lymph 0.7 0.6-4.8 NO [place] Absolute x10(3)/[facility] [place] 0.5 0.0-1.1 NO [place] Absolute x10(3)/[facility] Eos Absolute 0.0 0.0-0.5 NO [place] x10(3)/[facility] Baso 0.0 0.0-0.3 NO [place] Absolute x10(3)/[facility] ID Date Data Source [id number] 08/03/2019 11:02:00 AM EDT [facility] Name Value Range Interpretation Description Data Sup porting Code Source(s) Document(s ) WBC 5.1 4.0-10.5 NO [place] x10(3)/[facility] RBC 4.05 3.80-5.20 NO [place] x10(6)/[facility] Hgb 12.9 11.4-15.1 NO [place] gm/dL [facility] Hct 37.7 % 36.0-46.0 NO [facility] MCV 93 fL 80-98 NO [facility] MCH 32.0 pg 26.0-34.0 NO [facility] MCHC 34.3 32.0-36.0 NO [place] gm/dL [facility] RDW 13.4 % 11.0-15.0 NO [facility] Platelet 266 150-400 NO [facility] x10(3)/[facility] MPV 8.5 fL 8.5-13.0 NO [facility] ID Date Data Source [id number] 08/03/2019 11:32:00 AM EDT [facility] Name Value Range Interpretation Description Data Sup porting Code Source(s) Document(s ) UA Color Yellow NO [facility] UA Appear Clear NO [facility] UA pH 5.0-8.0 NO [facility] UA Spec Grav 1.015 1.005-1.030 NO [facility] UA Glucose Negative NO [facility] UA Ketones Negative NO [facility] UA Urobilinogen 0.2-1.0 NO [facility] UA Bili Negative NO [facility] UA Blood Negative NO [facility] UA Protein Negative NO [facility] UA Nitrite Negative NO [facility] UA Leuk Est Negative NO [facility] ID Date Data Source [id number] 08/03/2019 11:31:00 AM EDT [facility] Name Value Range Interpretation Description Data Sup porting Code Source(s) Document(s ) U Amph Not Detected NA [facility] Result created by Discern rule.Substance of abuse cutoff levels:Amphetamine...................... .....1000 ng/mlBarbiturate........................ ....200 ng/mlBenzodiazepine..................... ....200 ng/mlCannibinoid........................ .....50 ng/mlCocaine............................ ....300 ng/mlOpiates............................ ....300 ng/mlPhencyclidine (PCP).....................25 ng/mlMethad one..............................300 ng/mlPropoxyphene....................... ....300 ng/mlPlease note: This is a urine screening test only.Positive results are not confirmed by a secondary method.Unconfirmed screening results are to be used only for medical purposes. U Yasemin Scr Not Detected NA [facility] Result created by Discern rule. U Benzodia Scr Not Detected AB [facility] Result created by Discern rule. U Cannab Scr Not Detected NA [facility] Result created by Discern rule. U Cocaine Scr Not Detected NA [facility] Result created by Discern rule. U Opiate Scr Not Detected NA [facility] Result created by Discern rule. U Phencyclidine Not Detected NA [facility] Result created by Discern rule. U Propoxyphene Not Detected NA [facility] Result created by Discern rule. U Methadone Not Detected NA [facility] Result created by Discern rule. ID Date Data Source [id number] 08/03/2019 10:20:00 AM EDT [facility] Patient Name: LUZMARIA AUGUST SMRN: [id number] Computed TomographyACCESSION EXAM DATE/TIME PROCEDURE ORDERING PROVIDER [id number] 08/03/2019 10:[address] Head WO Zen [...] evaluation of this patient. Final Dictate d: Lanie LAUREN, Rodo 08/03/19 10:16Signed: Rodo Dela Cruz MD 08/03/19 10:20Transcribed by: RK Name Value Range Interpretation Code Description Data Migdalia rce(s) Supporting Document(s ) ID Date Data Source {[id number] 08/07/2019 09:32:00 AM EDT [facility] [id number]} [facility] Patient: BG DUTTA S Age: [...] Family/ Social History Medical history: ResolvedFrozen shoulder ([id number]): Resolved.. Surgical history: removal of growth in [...] 75.7 % Lymph Auto 12.7 % LOW [place] Auto 10.5 % Eos Auto 0.5 % B aso Auto 0.6 % Neut Absolute 3.9 x10(3)/mcL Lymph Absolute 0.7 x10(3)/mc L [place] Absolute 0.5 x10(3)/mcL Eos Absolute 0.0 x10(3)/mcL [...] Hep C Ab . Non Reactive HIV 05/05,p24 Non Reactive 08/03/2019 10:16 EDT UA Color [...] psych admission. Will be alejandro sferred to [facility]. I personally saw and examined the patient. [...] n pt chart Ebony snyder [address] [place] [address] [id number] Cross [place] PPOAPRIL Z [id number] signed by Sherrell Eduardo DO 08/07/2019 09:32 EDTElectronically signed by Abdalla [facility], [facility] 08/03/2019 15:44 EDTElectr onically signed by Abdalla BS, [facility] 08/03/2019 15:45 EDT Name Value Range Interpretation Code Description Data Migdalia rce(s) Supporting Document(s ) ID Date Data Source [id number] 08/03/2019 09:37:00 AM EDT [facility] [id number]} [facility] Patient: BG DUTTA Age: 63 [...] Supporting Document(s ) ID Date Data Source [id number] 07/24/2019 01:44:00 PM EDT [facility] Name Value Range Interpretation Description Data Sup porting Code Source(s) Document(s ) Lacosamide Lvl [facility] Reference Range:Expected concentrations of lacosamide in patientsreceiving recommended daily dosages: Up to15.0 mcg /mL.Toxic range not establishedThis test was developed and its analytical performance characteristics have been determined by [employer] Manny Martinez. I t has not been cleared or approved by the USFood and Drug Administration. This ass ay has been validatedpursuant to the CLIA regulations and is used for clinicalpurp oses.This test performed by:[employer] [id number] [place] [address] ID Date Data Source [id number] 07/22/2019 03:27:00 AM EDT [facility] Name Value Range Interpretation Description Data Sup porting Code Source(s) Document(s ) Zonisamide Lvl 10.0-40.0 [facility] This test was developed and its analytic al performancecharacteristics have been determined by [employer] Kiarra yared Martinez. It has not been cleared or approved by the USFood and Drug Administ [facility]. This assay has been validatedpursuant to the CLIA regulations and is used for clinicalpurposes.This test performed by:[employer] [id number] [place] [address] ID Date Data Source [id number] 07/19/2019 08:37:00 AM EDT [facility] Name Value Range Interpretation Code Description Data Migdalia rce(s) Supporting Document(s ) MMA Qnt 87-318 [facility] Test performed by:[employer] [place], [place] Cindy Land M.D. Homocysteine Lvl <10.4 NA [facility] Homocysteine is increased by functional deficiency of folateor vitamin B12. Testing for methylmalonic aciddifferentiates bet ween these deficiencies. Other causesof increased homocysteine include renal charlotte lure, folateantagonists such as methotrexate and phenytoin, andexposure to nitrous ox walker.Nyla Puri, et al. Karol Choir Teacher Med. 1999;131(5):331-9.Test performed by:[place] [address]BjjssfkkJose A Land M.D. ID Date Data Source [id number] 07/16/2019 10:53:00 AM EDT [facility] Name Value Range Interpretation Description Data Sup porting Code Source(s) Document(s ) Hemoglobin A1C 5.6 % <=5.6 NO [facility] 5.7-6.4% Pre-diabetes> 6.4% Diagno stic for diabetes(Summarized from [place] [employer] 2018 Standards)This test was performed using the Se[employer]ore[employer] Hb 9210 Analyzer utilizing Boronate Affinity. ID Date Data Source [id number] 07/16/2019 02:28:00 AM EDT [facility] Name Value Range Interpretation Description Data Sup porting Code Source(s) Document(s ) Vitamin D 65.4 30.0-100. NO [facility] Lvl, Total ng/mL 0 [facility] Vitamin D is an immunoassay performed on the [employer]aur XP ID Date Data Source [id number] 07/15/2019 10:48:00 PM EDT [facility] Name Value Range Interpretation Description Data Sup porting Code Source(s) Document(s ) Vitamin B12 507 pg/mL 180-914 NO [place] ID Date Data Source [id number] 07/15/2019 10:15:00 PM EDT [facility] Name Value Range Interpretation Description Data Sup porting Code Source(s) Document(s ) Neut Auto 77.4 % 50.0-80.0 NO [facility] Lymph Auto 14.3 % 14.0-44.0 NO [facility] [place] Auto 6.6 % 0.0-12.0 NO [facility] Eos Auto 1.0 % 0.0-7.0 NO [facility] Baso Auto 0.7 % 0.0-3.0 NO [facility] Neut 6.5 2.0-8.4 NO [place] Absolute x10(3)/[facility] Lymph 1.2 0.6-4.8 NO [place] Absolute x10(3)/[facility] [place] 0.6 0.0-1.1 NO [place] Absolute x10(3)/[facility] Eos Absolute 0.1 0.0-0.5 NO [place] x10(3)/[facility] Baso 0.1 0.0-0.3 NO [place] Absolute x10(3)/[facility] ID Date Data Source [id number] 07/15/2019 10:15:00 PM EDT [facility] Name Value Range Interpretation Description Data Sup porting Code Source(s) Document(s ) WBC 8.4 4.0-10.5 NO [place] x10(3)/[facility] RBC 4.21 3.80-5.20 NO [place] x10(6)/[facility] Hgb 13.7 11.4-15.1 NO [place] gm/dL [facility] Hct 39.4 % 36.0-46.0 NO [facility] MCV 94 fL 80-98 NO [facility] MCH 32.5 pg 26.0-34.0 NO [facility] MCHC 34.7 32.0-36.0 NO [place] gm/dL [facility] RDW 13.7 % 11.0-15.0 NO [facility] Platelet 263 150-400 NO [place] x10(3)/[facility] MPV 9.7 fL 8.5-13.0 NO [facility] ID Date Data Source [id number] 07/15/2019 10:00:00 PM EDT [facility] Name Value Range Interpretation Description Data Sup porting Code Source(s) Document(s ) Glucose Lvl 95 mg/dL 65-99 NO [facility] BUN 23.1 6.0-20.0 HI [place] mg/dL [facility] Creatinine 0.84 0.40-1.0 NO [place] mg/dL 0 [facility] BUN/Creat 27.5 7.0-29.0 NO [place] Ratio ratio [facility] Sodium Lvl 140 136-145 NO [place] mmol/L [facility] Potassium Lvl 3.9 3.5-5.1 NO [place] mmol/L [facility] Chloride 107 98-107 NO [place] mmol/L [facility] CO2 22 23-29 LO [place] mmol/L [facility] AGAP 11 5-15 NO [facility] Calcium Lvl 9.8 8.6-10.0 NO [place] mg/dL [facility] Total Protein 6.5 6.0-8.3 NO [place] gm/dL [facility] Albumin Lvl 4.6 3.5-5.0 NO [place] gm/dL [facility] Glob 1.9 2.0-4.5 LO [place] gm/dL [facility] A/G Ratio 2.4 1.0-2.2 HI [place] ratio [facility] Bili Total 0.5 0.3-1.2 NO [place] mg/dL [facility] Alk Phos 86 IU/L 38-126 NO [facility] AST 17 IU/L 15-41 NO [facility] ALT 14 IU/L 7-40 NO [facility] ID Date Data Source [id number] 07/15/2019 09:54:00 PM EDT [facility] Added by Discern Rule [id number] Name Value Range Interpretation Code Description Data Migdalia rce(s) Supporting Document(s ) eGFR-AA 84 >=60 NO [facility] mL/min/[address] [place] [address] The CKD-EPI equation for non- Breann rican [...] Mild decrease* G3a 45-59 Mild to moderate [id number] 30-44 Moderate to s evere decreaseG4 15-29 Severe decreaseG5 14 or less Kidney fa ilure eGFR-ELIZABETH 69 mL/min/1.73m2 >=60 NO [facility] The CKD-EPI equation for non- Breann [...] Mild decrease* G3a 45-59 Mild to moderate [id number] 30-44 Moderate to s evere decreaseG4 15-29 Severe decreaseG5 14 or less Kidney fa ilure Procedure Social History Code Duration Value Status Description Data Source(s ) Smoking 08/03/2019 Never smoked completed Never smoked No alth - 12:26:18 PM EDT tobacco tobacco (finding) [facility] (finding) Center Smoking 08/03/2019 Never smoked completed Never smoked No alth - 12:26:18 PM EDT tobacco tobacco (finding) [facility] (finding) Center Smoking 08/03/2019 Never smoked completed Never smoked No alth - 12:26:18 PM EDT tobacco tobacco (finding) [facility] (finding) [facility] Smoking 08/03/2019 Never smoked completed Never smoked No alth - 12:26:18 PM EDT tobacco tobacco (finding) [facility] (finding) [facility] Vital Signs ID Date Data Source UNK Name Value Range Interpretation Code Description Data Source(s) Diastolic blood 82 mm[Hg] 60-90 mmHg Normal (applies to 82 mm[Hg] N [employer] pressure non-numeric results) - [facility] Systolic blood 124 mm[Hg] 90-130 mmHg Normal (applies to 124 mm[Hg] N [employer] [employer] pressure non-numeric results) - [facility] [Minimum Data - [place] Set] [facility] Center Oxygen saturation 100 % 94-100 % Normal (applies to 100 % [facility] in Blood non-numeric results) - [facility] Postductal by [facility] Pulse oximetry Center Diastolic blood 62 mm[Hg] 60-90 mmHg Normal (applies to 62 mm[Hg] N [facility] pressure non-numeric results) - [facility] Systolic blood 116 mm[Hg] 90-130 mmHg Normal (applies to 116 mm[Hg] [facility] pressure non-numeric results) - [facility] Respiratory rate 18 br/min 14-20 Normal (applies to 18 br/min [facility] br/min non-numeric results) - [facility] Heart rate 64 bpm 60-100 bpm Normal (applies to 64 bpm [facility] non-numeric results) - [facility] Oral temperature 97.1 [degF] 96.4-99.1 Normal (applies to 97.1 [degF ] [facility] DegF non-numeric results) - [facility] Oxygen therapy [facility] [Minimum Data - Navarro Set] [facility] Oxygen saturation 100 % 94-100 % Normal (applies to 100 % [facility] in Blood non-numeric results) - [facility] Postductal by [facility] Pulse oximetry Center Diastolic blood 71 mm[Hg] 60-90 mmHg Normal (applies to 71 mm[Hg] [facility] pressure non-numeric results) - [facility] Systolic blood 109 mm[Hg] 90-130 mmHg Normal (applies to 109 mm[Hg] [facility] pressure non-numeric results) - [facility] Respiratory rate 18 br/min 14-20 Normal (applies to 18 br/min [facility] br/min non-numeric results) - [facility] Heart rate 67 bpm 60-100 bpm Normal (applies to 67 bpm [facility] non-numeric results) - [facility] Oral temperature 97.5 [degF] 96.4-99.1 Normal (applies to 97.5 [degF ] [facility] DegF non-numeric results) - [facility] Respiratory rate 18 br/min 14-20 Normal (applies to 18 br/min [facility] br/min non-numeric results) - [facility] Oral temperature 97.7 [degF] 96.4-99.1 Normal (applies to 97.7 [degF ] [facility] DegF non-numeric results) - [facility] Oxygen saturation 97 % 94-100 % Normal (applies to 97 % [facility] in Blood non-numeric results) - [facility] [place] Pulse oximetry Medical Ce nter Heart rate 62 bpm 60-100 bpm Normal (applies to 62 bpm [facility] non-numeric results) - [facility] Diastolic blood 74 mm[Hg] 60-90 mmHg Normal (applies to 74 mm[Hg] [facility] pressure non-numeric results) - [facility] Systolic blood 110 mm[Hg] 90-130 mmHg Normal (applies to 110 mm[Hg] [facility] pressure non-numeric results) - [facility] Oxygen therapy [facility] [Minimum Data - [place] Set] [facility] Oral temperature 98.1 [degF] 96.4-99.1 Normal (applies to 98.1 [degF ] [facility] DegF non-numeric results) - [facility] Oxygen saturation 95 % 94-100 % Normal (applies to 95 % [facility] in Blood non-numeric results) - [facility] [place] Pulse oximetry Medical Ce nter Heart rate 75 bpm 60-100 bpm Normal (applies to 75 bpm [facility] non-numeric results) - [facility] Mean blood 80 mm[Hg] 80 mm[Hg] [facility] pressure by - [place] Noninvasive [facility] Diastolic blood 67 mm[Hg] 60-90 mmHg Normal (applies to 67 mm[Hg] [facility] pressure non-numeric results) - [facility] Systolic blood 106 mm[Hg] 90-130 mmHg Normal (applies to 106 mm[Hg] [facility] pressure non-numeric results) - [facility] Oxygen therapy [facility] [Minimum Data - Zurdo Set] [facility] Respiratory rate 18 br/min 14-20 Normal (applies to 18 br/min [facility] br/min non-numeric results) - [facility] Oral temperature 98.4 [degF] 96.4-99.1 Normal (applies to 98.4 [degF ] [facility] DegF non-numeric results) - [facility] Oxygen saturation 99 % 94-100 % Normal (applies to 99 % [facility] in Blood non-numeric results) - [facility] Postductal by [place] Pulse oximetry Medical nter Heart rate 79 bpm 60-100 bpm Normal (applies to 79 bpm [facility] e Health non-numeric results) - [facility] Mean blood 92 mm[Hg] 92 mm[Hg] [facility] pressure by - [place] Noninvasive [facility] Diastolic blood 77 mm[Hg] 60-90 mmHg Normal (applies to 77 mm[Hg] N [facility] pressure non-numeric results) - [facility] Systolic blood 122 mm[Hg] 90-130 mmHg Normal (applies to 122 mm[Hg] N [facility] pressure non-numeric results) - [facility] Respiratory rate 16 br/min 14-20 Normal (applies to 16 br/min [facility] br/min non-numeric results) - [facility] Body mass index 17.6 kg/m2 17.6 kg/m2 [facility] ([facility] [Ratio] - [facility] Body weight 46.[address] [facility] Measured - [facility] Body height [address] [facility] - [facility] Body mass index 17.6 kg/m2 17.6 kg/m2 [facility] ealth (BMI) [Ratio] - [facility] Oxygen therapy [facility] [[facility] Data - [place] Set] [facility] Patient Treatment Plan of Care Planned Activity Planned Date Details Description Data Source (s) Prazosin 1 MG Oral 08/12/2019 11:09:00 [facility] - Capsule [facility] olanzapine 10 mg oral 08/12/2019 11:09:00 [facility] - tablet [facility] Lorazepam 2 MG Oral 08/12/2019 11:09:00 N [facility] - Tablet [facility] hydrOXYzine 08/12/2019 11:09:00 [facility] - [facility] Vitamin D3 08/03/2019 10:52:00 [facility] - PM EDT [facility] Vitamin D3 08/03/2019 10:52:00 [facility] - PM EDT [facility] zonisamide 100 MG Oral 08/03/2019 04:21:00 [facility] - Capsule PM EDT [facility] zonisamide 100 MG Oral 08/03/2019 04:21:00 [facility] - Capsule PM EDT [facility] clobazam 20 MG Oral 08/03/2019 04:20:00 [facility] - Tablet PM EDT [facility] clobazam 20 MG Oral 08/03/2019 04:20:00 [facility] - Tablet PM EDT [facility] lacosamide 200 MG Oral 08/03/2019 04:19:00 [facility] - Tablet PM EDT [facility] lacosamide 200 MG Oral 08/03/2019 04:19:00 [facility] - Tablet PM EDT [facility]
--- OUTSIDE RECORDS SUMMARY | 2020-03-01 05:47 | XMS ---
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 porting Code Source(s) Document(s ) SARS [facility] coronavirus 2 RNA [facility] and reported by [facility]. ID Date Data Source [id number] 02/06/2020 08:50:00 AM EDT [facility] Name Value Range Interpretation Description Data Sup porting Code Source(s) Document(s ) SARS [facility] coronavirus 2 RNA [facility] and reported by [facility]. ID Date Data Source [id number] 02/02/2020 09:06:00 AM EDT [facility] Name Value Range Interpretation Description Data Sup porting Code Source(s) Document(s ) SARS [facility] coronavirus 2 RNA [facility] and reported by [facility]. ID Date Data Source [id number] 01/30/2020 09:01:00 AM EDT [facility] Name Value Range Interpretation Description Data Sup porting Code Source(s) Document(s ) SARS [facility] coronavirus 2 RNA [facility] and reported by [facility]. ID Date Data Source [id number] 01/27/2020 08:37:00 AM EDT [facility] Name Value Range Interpretation Description Data Sup porting Code Source(s) Document(s ) SARS [facility] coronavirus 2 RNA [facility] and reported by [facility]. ID Date Data Source [id number] 01/23/2020 08:41:00 AM EDT [facility] Name Value Range Interpretation Description Data Sup porting Code Source(s) Document(s ) SARS [facility] coronavirus 2 RNA [facility] and reported by [facility]. ID Date Data Source [id number] 01/20/2020 10:01:00 AM EDT [facility] Name Value Range Interpretation Description Data Sup porting Code Source(s) Document(s ) SARS [facility] coronavirus 2 RNA This lab was ordered by [facility] and reported by [facility]. ID Date Data Source [id number] 01/16/2020 08:30:00 AM EDT [facility] Name Value Range Interpretation Description Data Sup porting Code Source(s) Document(s ) SARS [facility] coronavirus 2 RNA [facility] lab [facility] and reported by [facility]. ID Date Data Source [id number] 01/13/2020 10:28:00 AM EDT [facility] Name Value Range Interpretation Description Data Sup porting Code Source(s) Document(s ) SARS [facility] coronavirus 2 RNA This lab was ordered by [facility] and reported by [facility]. ID Date Data Source [id number] 01/10/2020 01:20:00 PM EDT [facility] Name Value Range Interpretation Description Data Sup porting Code Source(s) Document(s ) SARS [facility] coronavirus 2 RNA This lab [facility] and reported by [facility]. ID Date Data Source [id number] 01/06/2020 08:55:00 AM EDT [facility] Name Value Range Interpretation Description Data Sup porting Code Source(s) Document(s ) SARS [facility] coronavirus 2 RNA This lab [facility] and reported by [facility]. ID Date Data Source [id number] 01/02/2020 08:21:00 AM EDT [facility] Name Value Range Interpretation Description Data Sup porting Code Source(s) Document(s ) SARS [facility] coronavirus 2 RNA This lab [facility] and reported by [facility]. ID Date Data Source [id number] 12/30/2019 10:00:00 AM EDT [facility] Name Value Range Interpretation Description Data Sup porting Code Source(s) Document(s ) SARS [facility] coronavirus 2 RNA [facility] lab [facility] and reported by [facility]. ID Date Data Source [id number] 12/28/2019 12:08:00 PM EDT [facility] Name Value Range Interpretation Description Data Sup porting Code Source(s) Document(s ) SARS [facility] coronavirus 2 RNA This lab was ordered by [facility] and reported by [facility]. ID Date Data Source [id number] 12/22/2019 11:30:00 AM EDT [facility] Name Value Range Interpretation Description Data Sup porting Code Source(s) Document(s ) SARS [facility] coronavirus 2 RNA [facility] lab [facility] and reported by [facility]. ID Date Data Source [id number] 12/19/2019 02:48:00 PM EDT [facility] Name Value Range Interpretation Description Data Sup porting Code Source(s) Document(s ) SARS [facility] coronavirus 2 RNA This lab was ordered by [facility] Mares [facility] and reported by [facility]. ID Date Data Source [id number] 12/15/2019 12:00:00 AM EDT [facility] Name Value Range Interpretation Code Description Data Migdalia rce(s) Supporting Document(s ) 2018-nCoV [facility] RNA XXX ELIZABETH+probe- Imp This lab was ordered by [facility] and reported by [employer] ID Date Data Source [id number] 10/14/2019 12:00:00 AM EDT [facility] Name Value Range Interpretation Code Description Data Migdalia rce(s) Supporting Document(s ) 2018-nCoV [facility] RNA XXX ELIZABETH+probe- Imp This lab was ordered by [facility] and reported by [employer] ID Date Data Source [id number] 08/17/2019 08:19:00 AM EDT [facility] Name Value Range Interpretation Description Data Sup porting Code Source(s) Document(s ) Neut Auto 57.1 % 40.0-70.0 NO [facility] Lymph Auto 29.3 % 22.0-44.0 NO [facility] Attala Auto 10.5 % 4.0-11.0 NO [facility] Eos Auto 2.4 % 0.0-8.0 NO [facility] Baso Auto 0.7 % 0.0-3.0 NO [facility] Neut 2.3 1.8-7.7 NO [place] Absolute x10(3)/[facility] Lymph 1.2 1.0-4.8 NO [place] Absolute x10(3)/[facility] Attala 0.4 0.2-1.2 NO [place] Absolute x10(3)/[facility] Eos Absolute 0.1 0.0-0.9 NO [place] x10(3)/[facility] Baso 0.0 0.0-0.3 NO [place] Absolute x10(3)/[facility] ID Date Data Source [id number] 08/17/2019 08:19:00 AM EDT [facility] Name Value Range Interpretation Description Data Sup porting Code Source(s) Document(s ) WBC 3.9 4.5-11.0 LO [place] x10(3)/[facility] RBC 3.39 4.00-5.20 LO [place] x10(6)/[facility] Hgb 10.5 12.0-16.0 LO [place] gm/dL [facility] Hct 31.2 % 36.0-46.0 [facility] MCV 92 fL 80-100 NO [facility] MCH 31.0 pg 26.0-34.0 NO [facility] MCHC 33.8 31.0-37.0 NO [place] gm/dL [facility] RDW 13.3 % 11.5-14.5 NO [facility] Platelet 222 150-350 NO [place] x10(3)/[facility] MPV 7.8 fL 7.4-10.4 NO [facility] ID Date Data Source [id number] 08/16/2019 08:30:00 AM EDT [facility] Name Value Range Interpretation Description Data Sup porting Code Source(s) Document(s ) Magnesium 2.1 mg/dL 1.6-2.5 NO [facility] ID Date Data Source [id number] 08/16/2019 08:30:00 AM T [facility] Added by Discern Rule GLB_ADD_GFR_BMP Name Value Range Interpretation Code Description Data Migdalia rce(s) Supporting Document(s ) eGFR-AA >90 >=60 [facility] mL/min/[address] [place] [address] The CKD-EPI equation for non- Breann rican [...] Mild decrease* G3a 45-59 Mild to moderate [id number] 30-44 Moderate to s evere decreaseG4 15-29 Severe decreaseG5 14 or less Kidney fa ilure eGFR-ELIZABETH >90 mL/min/1.73m2 >=60 NO [facility] The CKD-EPI equation for non- Breann rican [...] Mild decrease* G3a 45-59 Mild to moderate kydtdqcyL8f 30-44 Moderate to s evere decreaseG4 15-29 Severe decreaseG5 14 or less Kidney fa ilure ID Date Data Source [id number] 08/16/2019 08:30:00 AM EDT [facility] Name Value Range Interpretation Description Data Sup porting Code Source(s) Document(s ) Glucose Lvl 97 mg/dL 65-99 NO [facility] BUN 13.0 7.0-21.0 [place] mg/dL [facility] Creatinine 0.66 0.40-1.0 NO [place] mg/dL 0 [facility] BUN/Creat 19.7 7.0-29.0 NO [place] Ratio ratio [facility] Sodium Lvl 136 136-146 NO [facility] mmol/L [facility] Potassium Lvl 3.8 3.5-5.1 NO [place] mmol/L [facility] Chloride 104 98-109 [place] mmol/L [facility] CO2 23 17-33 [place] mmol/L [facility] AGAP 9 5-15 NO [facility] Calcium Lvl 8.3 8.3-10.2 NO [place] mg/dL [facility] ID Date Data Source [id number] 08/15/2019 04:31:00 PM EDT [facility] Name Value Range Interpretation Code Description Data Supporting Source(s) Document(s ) Physician No [id number] [id number] G9iag [place] [id number] [facility] 2G4eNDaH1H 5cGUv Center Mn1zsW2GLF NlRm9 vgI0AOHb6I XRpY2 PsEM0qh4Zg bmcvV 1fpWJ0qbVU uY29k wY8zQf1QYP 5kb2J qCjIgMCBvY moKPD wvRmlsdGVy L0ZsY RBkXNMrk9S lL0xl hmg8mCOhIF 4+c3R yZWFtCnicK +QCAA BmITbCDZ6g c3RyZ WFtCmVuZG9 iagoz NXAvy2ChEg w8L0Z ukQTyii7Jo GF0ZU JeI89eTX0S ZW5nd GggNjk+PnN 0cmVh cWt8hNEW3C rk0o/ INFAwNFAIS eNyCu EyVDAAQkMF I1MLP XNTBQtDPQs jhZBc Eo0PjSVMkS h+Rad iDgfQb2cZJ yAXAL JeDa5HNU5u c3RyZ WFtCmVuZG9 iago0 ZPOmi5FlRt w8L1B kG8GHz9HcJ 1VzZU 5vbmUvTmFt ZXMgN SAwIFIvVHl wZS9D YGZmlJ2jK5 91dGx pbmVzIDYgM CBSL1 JxB2HeCCve MCBSL 1ZpZXdlclB yZWZl ajPiU5PnEO ggMCB HMy5VZL7st 2JqCj cgMCBvYmoK PDwvS 1pqz1c8UPA gUl0v NZfhZY3DLX dlcy9 Mu5EfqSNjK 0lUWF QoYb8zKlhj Pj4KZ Y9in2FoWpI gMCBv YmoKPDwvQ2 91bnQ vOO5AeZEuc CAxMC AwIFIvTGFz dCAxM CAwIFI+Pgp lbmRv YmoKMTEgMC BvYmo YEl1CY4SMT XNlZC AxMiAwIFJd CmVuZ G2zhgilXlA wIG9i jay4WH4VqI x0ZXI vRmxhdGVEZ WNvZG QiYFDdF9Gg IDI1O TYvTiAzPj5 zdHJl EE8ErDjmka dUU9k Wh8+9N71Qk hCKlN LrqPNIGA57 SJEuK jEJEErAkAA iNkRU cERRkaYIMi jggKN DkbEiioUBU bHrBB xG9TLzIAmS SWStG d+8ee/Nm98 f935r o16M5Rqfqd a6AJD 8gwXCTFgJg AyhWB Um79YTtPyb YAcBD BJYL5wF3JB zs0IW +OZAbUD25L xsmRP 0B677OyV7+ yrTP4 zBAP+flLlZ IjEAU JiM5/L42Vw ZF8k4 PVecJbdPyZ i2NE3 OMErOIlmCM laTc/ CjL9a3sOGI OfMyh HhSf6YZ7dR w5Nwn 3130Vh5KtL AZF+c I+LkyviZjg 3RJhk DGb+SxGXxO NgAok rwp3kUUFFe tY5Io ExVe65wS8N jJX/D WH6zOpqAHK 8XOzF ouEiSniBkm XFOGj ZMTi+HPz03 ni8XM NJ22nDPwBy iZGVk a5OOXTc/8W RR5bR myIjvYODk4 MG0tb k9y8T3o/Ju S93aW XoR/7hlEH/ jD9ld +hM5CgXExi dn6h2 2zHRPy5wGY u/2Hz WAvAIqyvnU OfXEe unxeUsTiLG crq9z lUPxPb2pvN +jv+p 0Fb7IuqT9O vt3v5 VR471Y5dcT xQ143 dwH9ymAPxT 7icPk M5p+H+B8H/ nUeFh U4XT0KB6DP RMumT CBMlrVbyBO IBZlC dhV9z3h5P4 P+pNm 5lona+BHQl lgCpS YbEU6fSLlg ESAJe 0Fc4L16M1Q [place]/nN r7BFeC86l0 L+fVe 5TQ1POvK/j mNHRD Y6NgEV3Bc9 WgI0I ABFQAPqQBv oAxPA BLbAEbgAD+ ADAkE oiARxYDHgg hSQAU QgFxSAtaAY lIKtY CeoBnWgETS DNnAY nHEk8GN4Qv 6By2A A1RYNSP4ui CnwCs xAEISFyBAV Uod0I EPIHLKFWJA b5AMF QxFQHJQIJU NCSAI VQOugUqgcq obqoW boW+godBq6 AA1Dt 1ZNjEE6RBp HIzAJ psFasBFsBb NgTzg IjoQXwcnwM jgfLo N7eLIkU1gK 7oRPw 4clOBuGU1U nEYAQ ETqiizARFs JGQpF 4JAkRIauQE qQCaU MmrU0iU1pF SJGny FsUBkVFMVB MlAvK KtXN4aSDpT ahNqO qUQdQnag+1 FXUKG qX2DTBLvze zdHO6 OR0TUiExGy uRleg q4Ot9IZiTr Q4+hU Yo3QxzYJBY H9MHC YVswKzGbMb 0445h RnGjGGmsVi sOtYc 64oNxXKwYm wxtgp 5NBbPrlK7a n2DI+ P3sGI9X9e0 Togrx FXgWnAncFd wE7gZ vBLeEO+MD8 Xz8Mv xZfhGfA9+C D+Suzy UuK2eMmlUP QiphL fDF3RF5Q5d LeEEk EvWITsRwoo C4hlh SGBE8Iccsf iVRSG YkNimBJCFt Ie0nn LThQw7ap8p GZA9y GXyS9iJgRz 8h3ye /UaAqWCoEK PAUVi vUKHQqXFF4 pohXN ZI6HWdnrM5 YoXhE cUjxqRJeyU iJrcR HXxYHk0BZ8 YbStD NL3DE3RTqX ebNyi /AE4ByNNJT I4kPh UYoo+yhnKG NUhKp AHRO75GEPR upZ6j gNQzOmBdBS aaW0b 2iDtCkVioq dSrRK nkqNynEVKR 2hG9E F1Qd4Adxd+ nX6O1 ZkAV2Masbs 1TbVK 5li4nthbeg x1UrU 4dNB3T1dH7 R91NP Pr8e4ap/TQ GmYaY Pj4Bmr0Wve 8XQOb T2XID6xuiv H59zW tHPBVRK2O1 ju0xz GcRbM0uQQh tKq0j gx3GOzca6w naq9Q /kP5vSJZbd NR6Cz Q+ekzmOGCs OTkc6 kCYBlovN3o f11Jb v7adJ8B3bW elF6h Shegjn0Spx s/ST9 Hfq9+lMGOg YhBgU BlLs7KtWJU MMUw1 2G/YavjYyN Yow2G HUZPTJWMw4 wzjdu Re7zFaDbQ5 lm0mB yzRRjyjJNM 91tet xSQcG2ZcTg MRsyh 94syVXrt67 HLdAW ThZCiwaLG0 wS05O Zw6ekzjhIG YMtCy 98VQ5GKDpQ W22z6 xn1aI6rlD9 daH3H gyYBpBSl31 Pzq62 NJfy3brivV PJc37 li46pFnT6c bse32 4F3742bE3P /wb7X /pLHt5PTlh 1h0tH WNlDz0qVDp 8YKY2 2tuOmMC4i4 rXY65 dUT0uZU5Xu Y+RcX lnogI4yYn6 nG8/j bUxdOuzs7m lzrXa KxDUcDy20b Unddd 457g/sDD30 PnkeT u7UxbCxb19 HPZ17 WXiKvDq/Xb Gf2Sv Yrl2Wlr7nN e9CH4 hPlU+1z31f PN9m3 7BlUw68ijv 8pf7R /kP82/xsBW gHcgO aAqUDHwJWB fUGko CMW1NXBsh6 CRcE9 MRYGUSp1kN vzDec S20mQdsSH6 O2h98 YTw5bMrB+O CQ8Lr wl/GGETURD Rv4C6 YMmClgWvIr 0iyyL dFGtFDtF4i xWjE6 Kbo1/HeMeU x0hjr ULUhk8L00p TxHXH Y+Ta97xfce f6LNy 2rUfFZzO03 foi40 S8bt7s1eus vvj4E sUlnCVHEtG JMYkt cq52tNsFnz TSgKW 2G5t3iN5e8 hOeB2 5Dn6Sotm/n TyS5J bImFAk5Lo9 ePJni piEG6fKXNo QLnqf 7o4slhq5IK duf9i z4Eb13S2qV mHFUS BGmCfsytTP zMoez oKZIa9LAkU ftXDY eBkS8NUZVx 7K7xT UOz0FPoRLr XjKa4 5ZTk/MmNzr 3SJ5y maIsTDzV6t 3LJ/J 9879egVrBX dFboF izxcH1jswU +lXQq qWrelfrry5 aPb7G e23YpKV2sA t/KLQ iSH61yI9cA U+RVt VfrxP8hrjg ixWKR eZ2KqytqPy I2ijY VYfr0pgbXD 9LeCU SA26BP2dhm +Zuvv vKiDrCW28r krRls TkofT4CfYr h1uvb 3LcdKFcuzy 8f2x6 fpARPN9wMn pc7l+ q7TIMXHwkM sEuyS 1oZXNldZVC 1tep9 hOa0VG8SPQ utZu2 d3cd9bpkb6 PHY01 bkIRzo291r YO/Ne r/6zgajhop 9mH05 +v81Fyk6r8 36url Sz2c38jM+4 X7pgY xJwp2Iux3f mi1lr XCrpHXyYML By994 j6Utccyar7 e3lx4 ChySHHn+b+ O31w0 GHe4+wjrR9 Z/hdb Xw2r1IR5ky eOdWV 0iXtjusePh p4tLf Wwpcmn5pb9 x/TPV JtEPW04PuH iaITn 07mn5w+lXX q6enk 33N2T9bscX k9c60 vvG/wbNDZ8 +d8z5 3p9+w/ed71 /LELz sdEKlJc2Lf kcKlz iF5u1mr0Bg oGHQY 1mvwYpp78F e4Znj v10kr2kpVG va+eu uXa1rIW/JH h61HX r77NcAH9bn v56Fb 8mov5q46E0 FlzF3 536M9PdWg2 mvcbf aR8aF0eHL8 +6j06 3AQHsuvx8F EnP2X /1V016VA3Z cWEzk NuA2fDrhO1 Jy8/X vh4/EnWk5m nxT8r /2z0aBQTp9 94/DI wFTs1/lz0/ NOvm1 +ov9j/0u5l 73TY9 D8WDq8mAml 8UX9z 4C3rbf+7mH cTM7n jyj3gI0o+6 PkY9P Sba7dBy97H 94Tz+ wplbmRzdHJ lYW0K FI3wt2CzEg EzIDA st7WgQia6J 0NvbG 6fU8VpM7Ls RGV2a FFjI3HcxF7 IZWln aHQgMjkvU3 VidHl tSE8NhITtU S9GaW h8GILiQryd dGVEZ WNvZGUvVHl wZS9Y V3VgPON9U3 dpZHR aUZO2Bz2NX W5ndG ggMjgvQml0 c1Blc kNvbXBvbmV udCA4 Vb9fpYJfCK 0KeJz twTEBAAAAw qD+qW jMP7BMXMZL AB4G+ 2OKjwplbmR zdHJl JO7GEP4th3 JqCjE 4CKUqt6EtB jw8L0 SaaW0lG6Ae Y2VbL 6pSI9Gpf1K kIDEy PIXnHl5qGK VpZ2h 1UFM1C2Z1H nR5cG ZmAU4fB7Sv Rmlsd NKoD0BnDQG lRGVj n4PpA4P8pZ UvWE9 iehEylV1JT WNvZG VQYXJtczw8 L0Nvb HVtbnMgMTg yL0Nv rV5zdxXqF1 ByZWR gU2TlupZnB S9CaX YqIJKxJ48c cG9uZ W50IDg+Pi9 XaWR0 aCAxODIvU0 1hc2s gMTMgMCBSL 0JpdH QGTJHTw82n b25lb mEtTQ2DpkZ lcnBv iIB8ITQ5yw VlL0x mcor6oTS9Q DQ1Pj 2fvKLpOS6S eNrtm wlUVEfWx2/ iJHMm 0bhGWRqatW VzwSW OE+PESEKMi iua0T gaYjQRjQIa AiKgQ NN00/vCqoC ANoLs t9WFltxYDr FlURF QUUFAQJRFY Kq6ka GqgbdAM68O d97R4 +t671Xd+tW 9/3vr FC5luWZYL6 r5x2e kL4b0LMEWy eTElf KHr65/12/X xaRXh PIIxBrP3Po 4qOf/ ijGv1eD3NK M/NQv 93Ey5ZwNV0 zc9NW mZV0/Ps75G kRfLF Lr6NCmFrTa Eoj8X kF2TPgcUnZ z+1fe vK2oQBfflU ChRQI tEZCfoww3x uL3+1 1xBo9RzQwK pJZWN Y96/hqbHqw +Gw6S nZK11iypON ZbxM0 394EMHUHTZ 6hCDy Y9rWlatmTZ Lc0Cd Jiq3nBiB7L K8rCv 3BjZqbHmam le12v JhqVCYns5o 7uRl3 hGppTdrGl5 1/+qb Wr/LM3VkJQ D0AkN N4MJO5dYs6 ARQp4 SsMHR9XFU5 5ojYe afADFeYQia fzJT4 aYtDLEwmgx I5ID7 /zUZE/JeZU xzo8E RLo6DgAAjy XS6eJ eSv5e94o8V Xja2P EJzGq4nV8Z LudVk /Tv2sY0H4l hyRlQ eigcAEJWpq boXUB mT/DCAwYDr N1f/3 NwWIoWbsRY R2shC 0OehkBOYNc 7/2xg DR5KJx8RmS 9tfcd y6Hg7IPPMo RL/YJ dzqnyrrXVp COPN/ FNcNvg1s54 SOLOMON+6 QN75aI1qFL EaCgk 4HA8lgiw0z p2ujn WOmIuPrlix Gh+uc H7mjVlZJXV QBl+u vv/bJdUaDH k4rIC gdMfPg62q2 h615u TGKAj8tRJq dr60G OFWB7BzYO4 giIFJ hwCPubb8G+ zGkJM CYp9I48OZQ 5/X+F vS58Rsnr2r 4YUGM jN1ZEX6kZ8 UKECH sMETHcGgT6 yKVxP mSeGpg93L1 BRXCk l92Csv+yfO ymJoC KO+fuPpj0Q 4vInz dqjPaEgQYV JlrDF Hsl4xO+0cM 90FqQ jrInUHKBqW TQpxt bK4lsnGHyP SPzCJ jhjqXoLIHh 1rD97 lk/kdPRud0 hNS6z tddMPt51RU 7vNOg ygOhGWHUiL vOa/N C82e0FfJgc SwkUl MIN9X534q3 UiCGX 8+5iSZcTlF gwbhF 3XJP54Kspr m+8L9 YXyra949bV ZtPDU TCLDePtYJL 9B0s8 GdrG0zD8r+ 0/dlF gwIaPbGDCY TBgfr U33D+uoOtZ W298I cfCNNGIZgt I64QW 7AmsJQh0uw Wn3Bh MRFLbO9HA2 w+Xsa 8ZVlWu5Za5 xxCY6 PMt4vi3mQU 2KTL0 iABfe3z7+K zrvwn UdsTfb1bh0 EvF1f IgEphQ/JV5 nKl1M r4+U8Y2Inc +UNKq Awno/OKnmN OJN4Y mgmPWI2B0I mdh4j MOKQX0y69C JM40K knwPX5HAH7 5OGzN 6oTz6aQ5Gp BywRk GtD9ragInr 1Wb2k SDtiuoc+Bj mkTjl elzUq4OSs7 TgBID jX8fmwaOE3 p4pMM SK7upyaHI1 dwNJM MOZ9yG9Qhp GLRor 98BBRcgOsd klImv uPRxF0C1uD Q6ifx u/KLeBL1N7 XBIA1 0ezPEgrAja 8GuvG ZEu8Yu+Joy IzNsW QIaY2ee6Es eJJr6 woz73H7Kqh ZiMEp juBDMHhedn 3U9BA +XegtlbA+Q PNN09 3aDCABLHyT dvhEC sgY6sbwL15 qBGO8 A2PSPnQfG7 aqt9L FmK1OqjHAm 538a/ sIUqlC9nn2 28ZSH MUr1K8gekH MHYvA t/CIDJzmg+ 8MIdY kx60O+g6Ya iGP6V kX5It2UcEb UJFN1 GS2VzbW8EG Wqcj7 6GRQXRP94P 4xOVL 8nNZBdmcOG glspo cQP1odgvYU euDDN UiG0jAmHkB GaCCk r/7Ciw5Ny7 lJJ/A zSYoOB6+0G /DgA1 ZjelhHn2Sf 7fNAD BGUSy7Qpzs empGB Eb/uUREEE5 s4YL5 eQlyTCMLI5 8iTo7 +XqIQPP554 tfnEK TuE4+l+Wla l+UiC r+Wbhy70Io FXTZu IIgwyV/rosales E3zIE ehWOL6wRcU YOu1A jykwaf96tY kPWCE 3tjZsFZXeR 60LO8 lS7vzOEa+w qod7E iIwkV+d4TD E6MXO 9UNPkVP+5p vfU3R jy7j/5UkcF RCqSb 0U2jeADXVj uDczk 7BDWNw2DaH wNH9r O+vbk6eQ/h 8hAIb bLbMErQUSN VVxxf +ivlXfrUAx Ck2HB SpMrasznYN q02B5 nC+VEZLtDC nbj+o J/1aB6EBv2 8Cwer AxECstrxDJ cApFx i/qw8LD2QG l9I2E 2pJD23c96i XMHyy Ad/janaImW 8Zk3y yrrRo+IHt/ EMsrr tGq1dZXJlv U6/aL Thv1kz94k4 FH5xR egJYgG4+h9 SXq/C u1j1wX8RZ7 XWa3d UC7ET35faq oVIkJ vpmZZ2fpGC Yf3X/ tzciGCchlc xGOFn i+NP2WsM9Z IGPD1 DmB5BbzTMJ 1NiSx Mgf09tuqIN pGrt+ 4DgYZMtHJ/ tIzaJ yeTLMR1eL1 UQHEY WfKxNL8EBA 65ENH opETRC17l2 VICzc f2kIxwPmj6 JTWS4 r+tbZNtpFg HjVvo S6PaV0dl0f oRkZX 7naRF4OdnL yILuW IvwhFekduL pIq8C P+vyFi2Mx1 4mjoM Io+i74TgCu SIo88 hZAG2LNIe+ epnXZ 2OvulAYmIF o0Ttu /5NTdvkjc1 qMzQ2 KO2hlb2BQO 5Aruq aCnFSgDoxy QnAEc KGpFyMy6kz vh3Ka AY3ow8R2Ch YJ6fk Vmw+EgmGXO yl/tq RkJg9n7zAx LUTZM nFxAc5p+K9 LV2e6 N6uhdSZ7LJ Fkc22 mZx9ZQGISW 8y9bt 74B9GIA/Gp kYnOA 114OH8pRcG I1+Cp pjJ523tl42 3IgrG vduiFpUP4t 2jrdg QjL704sUHu Alamg dokx30wjiI vxAit bHre1UIiFi D0Uh4 Im+3/mCMnM OcYey ZMu93c48Dw V8AkY 4xq5bUVazQ dWdUd kETnpeYM5E IMSgk BpiOte4UjK AiOaN FRGejyIsQm QWldf J3+tqtuxOX C+D9w 99Ynampa+r NnL97 cblq+7q8yI mYIiR EYLbnJCO+v HURZQ pe+ny4mpj7 L+VFb RPsCKwiB45 UM+qj m7GaTSi8Zx U71wu dm3gY7x8QB IdD2o vI2I0EMZEk KLyqt CvePkJLi5r CXJhG AXVKbeOjwX JVpEX mjAKRh4+ei E1pzX 15RJLlnXKC qBapS U300wBi4+S ccizn kYqczxwkUB xFiBD iInQrNNz9j +0dvb OxFtHhmTkl 97zQ0 aXccGdNM4X Y2J3M VUu0rg0kjw 5vk13 x2IZBbVHXa 8DAQ8 BRvplw7dj2 YRoZI wMNfxDD59z FiL5H YcuPSFfXM5 z66/C 2OyS+JCLfO 56X09 CrLMPxatbm Oh6/O ISjS1FVwF9 NzQkd UTu7bJFHTZ 7i4GG kmBAa5IBrU JH+PP Wi3YNs3FLo PI8mT z+Qr9dznvm lyF9b hOFVrcHyjS ocwD0 Z9dPo5+iX0 iJa66 Xy6RM8JGFC hZZ4e eQtbzOnRBw U1Vh5 JZJVCjAUlR wI7tI QicaIaEmhB xRoSM HhDhkU5IhW sFiMS OmwSe/3R5P kXo0d oErBjoEkOV Xup3I Ba1VaxhQKq y2S3K H21klTSXuu kPFnl ZQtmPoWcbX G3mNQ EtDGNL4N8z iyHb0 zR+mmp0zz3 2wJlj 4bTCkidzA1 AQkzD u0mVhYd8hP xC8gT V6VXUH5YaC 0+hYQ Jytpk2oeE9 7yzl3 UxR7By6frt tl6mX Sdm4km5Cui Z1EEB 2TuuBcdI5a YYQqR C6d4VrbdNP oYgZf G3pINVHHTu rPe6B 95KB8cScef ZiOjx x0BGer7gO2 eU4TS SiY4cR9t9S m4POM tE8asv99yW ngcoU DpzQhb41Hm t/LGf Dn+Bm4RzZO O+CJS x0TuQ5r0YQ lStyS 2wuCqAJE7L Ip/7X KBpvlPMx9R 9yksD BdJ1lRgCdq uax6S c/p0sdRN/L FNUXa UjstoyUvxh 4uoDw 4e79Wpp8jr GKyX/ hsRPX+2Nxv k3Wli l5R53jVF9I CtrHh 88mJNjtp6/ aRftQ eTguiFKbvG eUy8K tKAstCLjsk vwR6Z aHEGYJKnwi ejhRG Ztg+TXkN/a xWC3R GLvYyQNqDL 107Ba IPxO2hfXjG wAJCH F/Zkr2YvLx Z1yMh M+zgq1Iza/ LXZ3d mZ6a3vcTJA brBOA yIAZlCvlD6 Tbk0j BypHItGJdK K+sK6 wv6F8iTdyu jVK8m PQyvFmIFow 23YJ5 sVr82Or0s6 Q5goy lNGF9QqK+c 4htff E224u3j0AV 5YA6+ GYrAJ10bJT wMY0c KLntgnemkD ZYMKg Q8MqzACCb9 FlrE9 [id number] yVpuH yvts3TQuSc uy80j rXApuv+73M LrDyz ZKRM/98S7L agN8j ckqplTQmD8 1YHvO MBMwR/akHh 4AxMJ kuiMkdZ9L1 rhIye QpwPZ01RH3 puOmx d2wdRNj2Rm FAXH/ Lc25MHLIvd q9AXb zuhsEFbceX iIk05 e64l6zEHkR bzQZ5 gzkuKzb/Y9 ra0NK VYn/HGXGl1 1lf/O YkyUjO9GUS Gf0EC O1mWjKSOwV XFR4v tdwEyyCA9s DT5Xb G21ThHzsKP wLKBr r/g3UOB9WI fISUl hWuZJ7AK71 WhvSE nY03YKm00A A/6/d pbATVu9jOJ TL/Oz e+/oXJjugs erzcM SWZOFn4unv 97Q/L y5NbARq1c+ kQVTX CNTmV9GWOR OuIJz Ta4pwBUof6 DGx6Z Wp8BEJ/joq PH+8M 8LwTJDal8L RApMd C3GSb1q1xF FvmYj 5eTD3FEj3p 1PHku A05LYbi+oz ppq5G R7JU34XJY8 /SigJ VtRn3mOWps vRP9c azlI+mUX3t 9kfX4 PJbOvzS+0r G1HUt 0DJTcpGptb dlHOT Pa5ZImEKpE research quality assurance analyst+l V4ixvZ28w/ Hs3z+ XfXU1baXDq fx4fP 8mbWlV/XuL eWj8H aurdvZ1TO5 v2dQ6 +WfX/lfvo2 ZtsU0 JTiiVeO/SX UJYyA DiA8kCY4jz 9r7Is a+xTNzlnNF 37wH3 9F9k3cmXji Gddar yV9vXP4jMp Q1+Jm vuP3RH9/h0 VO6Ee zNPEGn90G7 rhO97 g2qgHuBNPl LX3jt FjoBVTFjpj 7/M1a IiV+8R0Stp a2pbY U4vUp1lIW+ WvOuw 5pfMZrzHt4 r/e8A CPlpUlKBLE jE6p7 B2x37J4c/1 xB8P/ S5ZFDnksgp gnJZe Q+cfjs0yVk bOJ1z M31zel/vCq u7VQ8 /bY+yO2/ce lVU2N J1cH2APBYo ouNt5 XXzTB/UWkV d13Kh 6CEpUnJXos Y6dyG xrf/oWkbeH 5FHf/ Pxd33UIykf B4Dp+ jvjop2fsOZ ms0D/ ZYaCleyQ1A eTtgQ 6S92QBlgP6 CALKb mgwiQLKZEt O8pvS /5iCdT8I0d A552o tOitrmt+sn v8Plv RT1BxbaxLe dHJlY K2JZJ2bf9Q qCjE1 QJKbs0PgFe w8L0d fx2WvIFumH y9Ucm Dee8LelsAz Y3kvS QD5ecBwH3e gZmFs o3WqH9SbXG EgMCB EVw3vM14pt GVudH NbMiAwIFIg MTYgM CBSIDMgMCB SXS9U yGTvT0BbR1 UvUmV ec7JeY2KtK DwvQ2 6lt5NTdIKd ZTw8L 0AeBgH0mAG SR0Ig MTEgMCBSPj 4vUHJ fJ9YsyBFbJ 1BERi QmUCD7iUBl SW1hZ 0QHQJ8GkUG nZUMg M3iiDPmrGL 0vRm9 mpZa6Z2hiM m8gMT lmKNPDH9lk bHYgM SkwAWWQP9t pMCAx WPDuNr7AXH 9iIDE 3CPZuEt5+L 1hPYm ozQ7C0XI6z bTM1M lF8UHZ9ZGG gUi90 XrO4ScUwQH IwIDA gUj4+Pj4vU GFyZW 50IDkgMCBS L01lZ LyfYk97JtX gMCA2 MTIgNzkyXT 4+CmV dBG9fibu6H DAgb2 BfRcd6Q9mq ZHNbM TUgMCBSXS9 UeXBl X1JfP0TbL1 NvdW5 0IDEvUGFyZ W50ID jlKFSPCl8U ZW5kb 2JqCjIwIDA gb2Jq Eci0V5yro8 VwPDw cQj9ZzzKqn 3Bhcm AgN5ncC5Rd L0lDQ 6Iub4WlNZP yIDAg Ul0+Pi9TdW J0eXB pQ9Kjfi8eM mlsdG JbJ3YsMBYq RGVjb 3CzJ0N2dNB vWE9i lmZekY4SIU RyaXh bMSAwIDAgM SAwID BeO4Omvh6H eXBlI SRkJhUsw9R yY2Vz PDwvUHJvY1 NldFs eDJBQQ4Vyx HQvSW 4nA1ZMT8cp YWdlQ o4MdRCoXLj dL1hP YkccU5E0MG 9pbTM 2KqL8BSD4O DAgUj 4+Fc1sHqIy eFswI DAgMTgyIDI 5XS9M UR1fxInrBT k+PnN 3dnEpbPk6j NPPzD K9RZd0CSPM BwARc gLfCmVuZHN 0cmVh bQplbmRvYm oKMTY gMCBvYmoKP DwvRm hybYIkN1Pi YXRlR AXpd5YgC8i lbmd0 dWVkMEo1Kz 5zdHJ wHI4PsKfWV Vtv2z YUfu+vILAX G6gVU ndlT/GlrYf ayWyn xbYMgyIztg ZdXF2 Stb9+R5RIy o4tV1 aHNXAtUiTP Od+50 bh1HuJVMVW /1UG6 afiYTh2H9C 3HtpE OJyPluoY6m MYx+v VNsZqtJUjD JrIMX VZQsnlOH5E whbCC xSfZoKsPdB gjeLt 6EvswGjiKB idigl qwM54J5sct /p9o9 csbhCarNwd ENEex rB0EPkAwal BPUyr M6NZXP5Djt ATPiO ADGpZCbHb+ jefFe PS93QS0qFU rEsrE 0IqDep9kew 2SQKV EyFiGUes9N OKCzG iUuQEffaBu kG356 C1sq5NSmcC x+3Q2 myxmN/P5W0 7w5m4 x/ysBg6NwW c3ois W4SgcAu6Dz 0DM4Y +tyTZoWFtJ kcUQD 6w2Gpjs9yB Pecx+ hEr90RkdcK jyMb4 hXNlg6J91I xSB1e 25Y4SvtVO9 Wi3Fn AIoW4CioWi pzk7R Ei5vwCE9fK zcp6B a4gPjBCJr/ 8SeiG qo+aFRaJ/I fb0dg YnQnYU8j31 2xxiw WlXopA1mNA C79Z/ FPBSW5zHjB xh3C6 sc6JDHFIys pm4U6 x5ENpgw+Ur GKT5s X5VOULMoA6 ejDze I5vChuaFLK U71YV dg5yAgQNsG TLeiX tFBvDV1dqq 4pFmT tqxJq1Lcop GZj8u tJ8O6Rjov7 P8qkV M3biC7j/GUANAKITO eFq1U XxfKYCJaaS Lcx51 rzeGDyXjVp FSTKJ L2gwpBqv6M XVPRT MZLVk45bZL Zx14e UllmeDFkZz 9Ka+M iqt1RrDfpm 27m17 t76SNEvWFY YPA6j zhwr83ysWr k6e6S OYXfRhR2Uy OED6p lnEWS0ewVl rSW+Q 2SrKaXx6u1 pY9M3 FQZtX6eu/A 4F+ck RhoAY5pqPA VCZRQ 6Fg46wTBk0 VbUS5 WQUM/fFTCK YL8Lq VsJASS5d3o bL5mm dnfX6Mqw9O qCx3T nco+uz7vi6 aFn68 NYI6PzdFkv YKVKo wfj5EuGwDa rQqMy frWQ/8QOKF ht27H 4Dsz+SuRuH 6utfI Etuspl3GpC aACU4 Nf13ltM/jX 1Pd8V Mo/gKD3T25 VkPb4 rNlRKUMjv8 z3QFQ K5rYCDfB8D QmSAf oEiURUHBXx UfgV8 dfl/gLZw9A v6jCK gBHV3Mj/hy 4D1GI 4iuypZUuf5 gbCtL 2hZMPidPBq aVTEE k1JhIUy0aJ vwHNQ lYCgsV3u0O J+GTh OZNhP4ejsp MezIc R22cJ+ZI8x +N6xo UOJZsArCQ5 pwCJ+ 7jNPX+j8Ks NBAcG AgTbwSSzlk lU0d4 9NrKxqHc2U jk0uL 2cP4qKVezT ryZtZ KJvMnJMh19 V5Ksz xUDo2CxBAo 3qfpa URaXZw6mXH 7uVpN u8povJgHMd 281kQ gaJ2pP7TC3 cVkeQ /tLIGcKTS+ XJXSc uWho3eA1Df DDVN/ LjPUQ+9TH9 mQznm w7qXOYaFPC hwMaC 068lGa9v83 MRM5c l6Mvq+/wd2 pL9zI Raf3QRfp7y Ntv3f HzDOO/3YlN EfNxa qZyxmgbNLN Z6bv5 2ue2FH3F9d Q4lQV nsALPNZiaC 2h1qt LWQOJb2VDN kPvoI R+6Iuekmml USCzW +I9o3AO4eq BDcne 7TSF9LUHMS C91CM lVmNxesfC5 kGZL2 t7OJHBCmTh ZBAHo jR/tkxpT2z OX3wZ AHqj1MbXso Y9Wdt UZ5ZsLeGCn TmZ+p sIAobnSkbq 9S47k d5l4hWXcH4 WZTSj XgNd2UfUi7 qpyEe +eILKulhcW VdG01 Z2KhvG7WV1 urxdc 4OcleFKcXK l1ANr Mz0kASNt9R 6j/wi NcfkLJuqyP zKdCY kEOUQC0XQN t7IXk F8RawXuOWe 5UxXS 79K4T6ZgUu 9ixsC gy4O9CY+52 Olt3W bjfGy21IGa WFmhW bvKX9U2211 N6kce rekvErwXy2 /FupD R/9qkIYbNl rbRER SCpulgiBgt dZTUL lPoobPQwI8 20kv8 U4n6ZEk/ym KJXc3 MFNs5QRgYZ ZbL0z rchGOH9vJf ppKdr jkFg05kvul 5uCcR XKbl+f/ktf 48TV0 r85Q6iGWD4 bhd/j rUCk+p6IoR N/Qjp sSBC2xM0dp PLGAv oSsWsC6/ap 0jAKK whzipBQSAl E1W3p /CK0e5GvT4 9QI4t YIAEwWbTlv 5WwYX 3cGQDhxMWq eDBfX iMASkGLjpd Ruiln NhRPtc+oUI Zn4gr PiL8nREJZ2 Fz0q1 m2Xn2B37Bz PUhh6 6E4kOWQDLC 1urC+ H5YWVSP6JG /gyGl b9Kjc9+uHP ldZAX xI/nXnj9q7 TCb4x lsPXTG3xVM jU7Ta ST+t/y5AKj 1A3rQ f5zv5c0nGi 1N9hH hUEQlAnoZZ Dv5LJ 2MBSechr71 1kuLw r4lEzGTshk 61Ygq bhYm58aPL5 fG4Sc BNTLkjgqUm GwVxT ViD5MoLKus ENTu+ +N9gz0h7O/ Rk6we wR48Jg45Jj VM6/L gfi98a0tDy ONumn +P7vHIW7SF f043W nmYXXajpMz HR+/r tkx6t3PtiM vJ/8C 6SG+cgplbm RzdHJ jQN9LKX6hn 2JqCj W8RNInz7Wh Cjw8L 05hbWUvSGV PYi9T pGZ7dDKfV1 R5cGU xY0T2tIBnX m9udC 3PHQAzWv3z dC9IZ Ee5GTKyU8T tT2Js wTX5DF6Jgj NvZGl uZp9AeN7Xy nNpRW 5vu6Kmvra+ Pgplb mRvYmoKMTc gMCBv YmoKPDwvTm FtZS9 CCADvA6A1E nR5cG UvVHlwZTEv VHlwZ W8Sc284F5Y hc2VG w811I1jbqA ZldGl qLC1Cs5glB 0VuY2 2slO0pF4zt bkFuc 2lFbmNvZGl uZz4+ JvReVG4kzx oxOCA kOW4braj3D C9OYW 9mD2nxlZZx U3Vid GimUL5WbXM lMS9U xNCfZ5Vica QvQmF zZUZvbnQvS GVsdm T8pJDgP1Uy Y29ka Q0fL1clamA uc2lF bmNvZGluZz 4+CmV nJE8eqex2Q DAgb2 WpEpc8Ti4I ZW5kb 2JqCjUgMCB vYmoK PDwvRGVzdH MgMjE mHKMBQy5NX W5kb2 JqCjIyIDAg b2JqC yv0H6JuGAQ gMCBS E5jMLrHoWm A1OTg gbnVsbF0+P gplbm RvYmoKMjMg MCBvY moKPDwvRFs xNSAw IFIvWFlaID M2IDU 5NSBudWxsX T4+Cm YoAT0lentt NCAwI P1izcy6HB8 EWzE1 ZTImXh6RFV ogMzY iMxN8NE06p GxdPj 8NRI2cu9Zt CjIxI GKnp5RxHlw 8L05h bWVzWyhfYT NlNGU 1MTctYWJkN C00ZT BmLWJiZGQt NDdhN DRhZDhlMWF hKSAy MiAwIFIoXz E0OTN lIyY4MWVeX GUtND UjME4sYpZb LTNkO WZmNjgwZjF lYykg MjMgMCBSKE 1LTUc gNNc1p9wpj WFuIE DhezU9sZOz IDI0I DAgUl0+Pgp lbmRv YmoKMTAgMC BvYmo KPDwvRGVzd ChNS0 1HLVBoeXNp Y2lhb xARp77jvEi 0KS9Q YXJlbnQgNi AwIFI dAEn0rMJ6Y mVmZj AwNTAwMDY4 MDA3O TAwNzMwMDY 5MDA2 MzAwNjkwMD YxMDA 2ZTAwMjAwM DQzMD L5NkYdZmHh MDczM MU7LRZdBvK wMDc0 Pj4+CmVuZG 9iago xMIVxWG6pv go8PC 4Cg7BVYUDw KEQ6M mFnHJA0HVX xOTM5 NTAtMDQnMD AnKS9 DcmVhdGlvb kRhdG UoRDoyMDIw MDQxM tG9Fvo3XDx tNCcw BKywC5Ksi8 R1Y2V yKEliZXggU ERGIE UaHXM7t2Ir NC45L jAuMTUvODQ zOCBb JdRPXL0BT8 I7IG1 vZGlmaWVkI HVzaW 2oGFyDVXm8 IDIuM N19IXD0SJE UM1hU KT4+CmVuZG 9iagp 4cmVmCjAgM jYKMD AwMDAwMDAw MCA2N TUzNSBmIAo wMDAw ZTGbLAH7OF AwMDA nAF5vYfLsK DAwMD AxMDMgMDAw MDAgb iAKMDAwMDA wMDE3 OSAwMDAwMC BuIAo wMDAwMDAwM zE0ID EqOJKmDP2i CjAwM BWaODM7GYF gMDAw MDAgbiAKMD AwMDA eWCT9BTDmF DAwMC BuIAowMDAw MDAwN IW4ZRNyPRF wIG4g CjAwMDAwMT A2ODI gMDAwMDAgb iAKMD AwMDAwODA3 MiAwM DAwMCBuIAo wMDAw SSLcZLG9GE AwMDA eFC3vRqYvS DAwMD L2SIGvDFQj MDAgb iAKMDAwMDA wMDU3 OCAwMDAwMC BuIAo wMDAwMDAzM jQ3ID NhVHXuKF9v CjAwM PKrSOL6XfA gMDAw MDAgbiAKMD AwMDA wNzczOCAwM DAwMC BuIAowMDAw MDA4N IQ2BTUbNCA wIG4g CjAwMDAwMT A0Nzk gMDAwMDAgb iAKMD AwMDAxMDU4 MyAwM DAwMCBuIAo wMDAw MDEwMzcyID AwMDA kHA6aQlUsE DAwMD gxMzcgMDAw MDAgb iAKMDAwMDA xMDg3 NiAwMDAwMC BuIAo wMDAwMDEwN zM1ID JzHZBxKB2s CjAwM OBlNSS7JFS gMDAw MDAgbiAKMD AwMDA xMDgyOSAwM DAwMC BuIAowMDAw MDExM TcxIDAwMDA wIG4g CnRyYWlsZX IKPDw aAS1usjHuO SAwIF IvSUQgWzxh ZmYzZ XnwYOP3HQi xNjll FcIgGRI3UE NjZjI 3DTkrBi83U jEyMz hiYTRlZTE2 NzljO WEwZmUwZmE 1Yzk3 ZTcwMWE+XS 9Sb29 0IDQgMCBSL 1Npem UgMjY+Pgpz dGFyd HhyZWYKMTE zNTEK TDSWA2VE ID Date Data Source [id number] 08/13/2019 07:32:00 AM EDT [facility] Name Value Range Interpretation Code Description Data Supporting Source(s) Document(s ) Discharge [facility]9i[facility] [place] [id number] [facility] 0Z1jLPhW9D 5cGUv Center Po7dpD7NUK NlRm9 fdM1CJKl1N XRpY2 CuUH4sr3Rd bmcvV 6icLT4vxLZ uY29k cL5zVd1ODH 5kb2J qCjIgMCBvY moKPD wvRmlsdGVy L0ZsY YLsJETep3R lL0xl dti4vNZdQL 4+c3R yZWFtCnicK +QCAA GhADbYVE1u c3RyZ WFtCmVuZG9 iagoz SNVlm6QfTi w8L0Z mlCQbxl8Gq GF0ZU OsR32oXE6Z ZW5nd GggNjk+PnN 0cmVh qAt5dVRT0H rk0o/ INFAwNFAIS eNyCu EyVDAAQkMF I1MLP XNTBQtDPQs jhZBc Aw4HyOGMeD h+Rad NKmiHf2fJI yAXAL N7Ka6JWU5l c3RyZ WFtCmVuZG9 iago0 AGTzn6SqRk w8L0Z wlTRljh9Nu GF0ZU LcU76oPU8S ZW5nd GggMTA+PnN 0cmVh gFf6kDxfZk AA7gB 0LnOdLTM9w mVhbQ plbmRvYmoK NSAwI Z4hfjo0KM5 GaWx0 ZXIvRmxhdG VEZWN vZGUvTGVuZ 3RoID ngWh8kuNQu YW0Ke XrQBJUr9UB PyDRU MDRQCEnjcg rhMlQ wAEJDBSNTC z1zUw UFXw3ID2YH XC6Ng OB7KFMctus 0BSPN xKhd7xKnQL 4AtIM A9GpxzeCca HJlYW 6NPR8pe1Bj CjYgM CBvYmoKPDw vUGFn YX7fVOIqFZ NlTm9 eEX8APZ2fy yA3ID VcSy0UqNKp L0Nhd CDjn6yoL6D 0bGlu ZXMgOCAwIF IvUGF nZXMgOSAwI FIvVm xhd5WnVUWe ZmVyZ Y2sZTNuKON gMCBS Zz1FIQ4xa6 JqCjk gMCBvYmoKP DwvS2 hwj8kqUOLl IFJdL 5Z9rAPvMSB nZXMv V566ylAzCj 9JVFh MMKWzUC65Q T4+Cm OqKB0rzdj6 IDAgb 1NxAep9O4A vdW50 IDEvRmlyc3 QgMTI eFSOTJ1efo 3QgMT KnVNWNQs7A ZW5kb 2JqCjEzIDA gb2Jq ClsvSUNDQm FzZWQ gMTQgMCBSX Qplbm RvYmoKMTQg MCBvY moKPDwvRml sdGVy J3VjSIExGS Vjb2R bS2pides8p CAyNT m1E79xId8+ c3RyZ WFtCnicnZZ 3VFPZ JooYbFl9IY IQipT Pu7fJJamYw UiRLi oxCRBKwJAA IjZEV HBEUZGmCDI o4ICj T5CuHgmFQW Gx6wQ ZRNRxcBQbl klkrR nfvHnvzZvf H/d+a 5+3i16m053 WugCQ /IMFwkxYCY AMoVg B7veMyL3LV 2AHAQ zwAANsAOBw s7NCF vhGApkCfNi MbJkT +Qs4bu9o+f sq0z+ MwQD/n5S5W SIxAF CYjOfy+Nlc GRfJO G8JlQS1U7o YtjRN zjBKziJZgj JWk3P bWKw34jzbY znzMo B3BjcnnfGp 8OTcJ +ONORK+jJF gGRfn MBj1Yn9dR6 N0SYZ Axm/ksRl8T jYAKJ MtIlMjP3Fy LWOSK FANKnH8XEI IyV/w 0u6KlZ7Yfy /Fzsx jYjJgl5aES lxTho 0AQ2hmi76X 54vFz SHSN01u4cV YmRlZ HOFyAGbP/F kUeW0 CfbR38Ez5W DBtLW 2+KNR/Xfyb kvd2l l6Ef+4ZRB/ 4w/ZX fpkNALCmZb XZ+od taRUAXesBU Lv9h8 5lLgJGzj61 Dn1xH is2AvRR9ui nK6vc 0MeKYX5jRQ /o7/q kCk1GG6dEX r7d7+ VhePOTOJJ0 MUNeN 25meqZExMj O4nD5 DOafh/gfB/ 51HhY R/CS+iC+UR UTLpk xeOYa1O0vG iAWZQ Jyoti+J+a+A/ D/qTZ jBsT4gkW6Y ZYAqU hGkB+HgAoK hEgCX fbD8ZxpQkI RwP5z YvRmZid+8+ C/n1X uEz+yBYkf4 5jR0Q yuBJRzuya/ FoCNC RJRODX4lZy 6AMTw XU6uRC1VI/ gAwJB RHlEwEYj3C IUkAF EIBcUgLWgG JSCrW LzyVJ1hTG8 gzZwG HSBY+A0OAc ugctg BNwBUjAOno Ap8Ar MQBCEhcgQF VKHdC BDyByyhViQ G+QDB UMRUByUCCV DQkgC FUDroFKoHK qG6qF y8FbdBBUxe gANQ7 egUWgS+hV6 ByMwC abBWrARbAW zYE84 DL5HU7JQ9P I4Hy6 Hb6SCmTC3V O6ET8 OY2NAANq+B pxGAE AT0rwudQFs CRkKR eCQJESGrkB KkAml N9lGrhG+5i kiRp8 hbFAZFRTFQ TJQLy x0LgjQzjgZ WoTaj lcYIFC4kIj RV1Ch qCvURTUZro s3Rzu eDhVi9UV8P LkZXo UxQPerv3LH 0OPoV UvPlD4vhfj h/TBw mFbMCsxmzG 9OOOY UZxoxhprFY rDrWH OuKDcVysGJ sMbYK drR9YybXJ2 59gyP auGY2TQ3jN E6IK8 RN7FtsX1SG cBO4G hpK5vFslM/ F8/DL 6TZ4RybGxv g/jp8 cRHAFOn4XA EIqYS 8tneRYTJj7 S3hBJ EH7uK9ZfCR AuIZY DCeAAP4zRh 4lUUh mJDYpgSQhb SHtJ5 5v1HH0YUNU RmQPc ujGEQ7Mpfc fId8n m7NhPcjeNO jwFFY z3Zb7QyvAn KaIVz NO1COokBxg WKF4R PKD3jmCOmu Iia3E JYbgKTC5SE mG0rQ cCohRFDC9O 3mzco vyBeVHFCzF iOJD4 VGKKPsoZyh jVISq A1KJwjE01O bqWeo 4DUMzpgXQU mmltG 5sj4EtJIvA nUq0S b8ZudxeSHg doRvR A+yg7PA8Dj p1+jt NYBSUUh0zG tU21S bov8HyvHur 8dVK1 NrVRtTeqTP UfdTT 8Fejv0vw38 BpmGm Ea+Mn7AU7r /F0Dm 0UxyhjmTE1 h+fc1 cW3jNGhTWt o7tMc 3KsH9qvz41 rSqtI 6o/WAh05om Z2qvU Y2fPknBxSJ TUegs 7KdyA7ujjg Dk5HO iYY9XuQ1YR X9dSW 02uyHmrU6d npReo P34Op33Gu1 LP0k/ I98oqlWPtd GIQYF Qp9Idv0fao zDFMN lkk3Ct09Ty WKMNh j0XO9tRwKY MM43b jW+e6W0pXb ZZtJg kp8GC6qxGX PdbXr XSKkhR2fdi zEbMo jLVvuA5ihX hy3QF a7LRsgAnma MEtOT cdXpHR7r4o 2DLQs tuyyfWRlYx Vtts+ q3+psgf01g 3Wh9x 8QeO4bFkWC j86ut dQ0Jqcx19j zyXN+ 5q+e9r22aN 27Ht9 jue7Ezlf6z v8G+1 /0Ny6BCvIT NYdLR wDHRsdbxBo vGCmN wGr74Ith0A a12Ou j28iqUKyj6 2PkXF 2FFjvfXs1T 5xvP4 8xrnjbnquX Jc612 pzge5OQt6e lJ3XX cVy5I0Vr23 D55Hk 2oAm5kmqoq Bz2de 9e2iqy3r73 xn9kr 2KW/E28+7x HvQh+ WG8PLch49Z zzfZt 9V3ys/eb4X fKX+0 f5D/Nv8bAV oB3ID hgWiQe3YKy X1BpK HMSuCSX6TQ gkXBP DGgOWRR7uU 78w3n C+e9fZGQlV Dtoff YdWGFgN3ee gkPC6 2NyvrtM1TK 0b+Au mDJgpYFryK 9Issi 70SZREmieq MVoxO ty5Rja7vEb MdIY6 7nO1LfwuTD E8R1x 2Pjo+Ob4qc X+izc mZF5mX7wZE H6IuN FeYsuLNZYn L74+B LFJZwlRxLR iTGJL YnvOaGcBs7 00oCl tUunuGzuLu 4Tngd vB2+S78ov5 08kuS jZKr2Fjn8y njyZ4 f5YdpFSyNT UC56n +ulDva6WY1 3bn/Y nTJg2ASROs ZhxVE pVsos3ApUn 8zKHs 4uqqjZhu5k X7Vw2 XQkCAGFL2S uyu8U 02c/UgMREs l4ymu JEN3OfClb1 90iec o9gj7P42dS Nyyfy ffO/XoFawV 3RW6B bsLZgdKXny vpV0K qpr0oE529d Wj2+x m/NgbWEtWl rfyi0 LiwvfLkuZl 1PkVb IbgWz7W1mM 4sVik TRJfh7yGfg iNoo2 Cg0bx1zzs9 fS3gl E6fbLhpW84 /mbr7 4pg9RhG018 pK0Zb DMoWzPVsxW 4dbr2 3w7ZNtVTg9 vH9se fw6dC6HTzZ 6XO5f czWFoD2Z3o 7BLsk taGVzZXWVQ tbXqf OWK1OfJI59 7rWbt vuzYs7x3q+ zx2NN Yr8WHGpmxt 2DvzX q/+n6Kb4vV fZh9O tbhMcS55i/ N+rq5 SaOptOnDfu F+6YG AM44Imk0ZG ZotZa 1ag2V37pBL wcvfe H/Q8pCkk8+ nt5ce Aockhx5/m/ jt9cN To1mHoQ92b Wf4XW 0HtaOkE+pc 3jnVl kQm9J7dUm1 aeLS3 m0Cl95wQ6/ cf0z1 Er7zosChDq omiE5 9O5p+cPpV1 6unp5 IAncRg331s JPXOt T5ae1LqC3h PnfM+ x4vubS9lh4 fyxC8 6Uyn8kJqo5 5HCpc 8B+oOMH+x8 6Bh0G H6npk8iwS0 3uGZ4 3fOKK+5XTV 72vnr wOhK7WiTlX 4etR1 2/eSLghvcm 7+ehW +a8yo3Dkk9 xZcxd 9t+Se0r2K+ 5r3G3 40/jMq4cW7 Puo9O sUatNN4W3b xJz9l //R+vOgh+W HFhM5 H8iBsF1ewy ScvP1 31bTnN2zHA p8U/K /9c+8zk2Xe /ePwy AVL2Gu8c9B zTr5t fqL/Y/9LuZ e902P U5UynfVm3T vFF/c +At623/u5h 3EzO5 77HvKz+Yfu j5GPT c2bePN89+A /eE8/ kWGC5qe2Ng ZWFtC fIsQR4xtkm xNSAw ZS6vkbr4SH 9Db2x vclNwYWNlL 0Rldm ljZUdyYXkv U3Vid OdlUL5DsGU nZS9I ZWlnaHQgMj kvRml ceMDyB8MrL XRlRG Hea1UpZ5Z8 cGUvW P0oyqFjoB6 XaWR0 aCAxODIvQm l0c1B lckNvbXBvb mVudC Z3X5xsjee2 aCAyO D4+d7GnKKA tCnic 7cExAQAAAM Kg/ql nDB+gAAAAA AAeBv grth3SBC1q c3RyZ WFtCmVuZG9 iagox QgMrGV0eql o8PC9 Vu0jcniWfL WNlWy 3BK1WDQODh ZCAxN OGcTQOyC0C 1YnR5 hCIqYG1uU1 UvSGV bP6f9IET8A 0ZpbH Vdmp5BpUG8 ZURlY 30sJL3XcZJ lL1hP RbrwO8VuEL Vjb2R dXYWnpFX6C C9Db2 q6mG5gWXX5 Mi9Db 1cffdNcWm0 QcmVk mOW7i5LhNC UvQml 7m6VtgyVss XBvbm BjaLP0Nj3f V2lkd AidCXarV9U NYXNr GFK0PPTtWr 9MZW5 tlPlyJMJ3I S9Jbn RlcnBvbGF0 ZSB0c gQzA3VbvQV QZXJD l66yq66bmk QgOD4 +l3EjMQCoV nja7Z iGBNRF0eqp 4iRzJ dC9MzeunlJ lc8El jhPjxEhCjI ormtE 9DjM3NR8CG gIioE VQlTO0ehtB gDaC7 IuAArIZwyY BZVER UFFBQECURW CqupG b3UDH1G5+x 3fe0e Sxpn4F9ujY vf976 dg6z5iSYS/ K+cdn dWb1ZRO8KP XkxJX yh6+uf9dv1 8WkV4 PzF3InK0f7 +Kjn/ 0gB4jtP5G7 DPzUL ++aZqU0hK7 M3PTV fgWtJz5X+R pEXyx SLxUe3iItv RKI/F 19GZHpY7NB s/tX3 pWgBEVE53c QoUUC LZ0UMtS0FX Li9/t dIUKeCJhMU 6SWVj NWiz5hby2u PhsOk isRRcc99xM WW8TN N/eCFH6I89 eoQg8 h+6tKGXe6k C3NAn T60hEzm78p CvKwr 8pQ6ols0sw pXtdr kRIzbHD6QA O7kZd 2EpxN7npsl df/qm 1q/2COEqVQ w9AJD T9Bkj+r2Xe QEUKe AngDmeQGRO eaI2H mnwAxXmEIm n8yU+ GmLQyxMJoM RICHEY+ /81GRPyXmV Mc6PB Ih1lPhExes 10uni g6FvBif9+z l42tj 0CLCnOHQ+R C7nVZ P03+mg+zPc YckZU HooHABCVqa m6F1A Zk/wwgMGA6 zdX/9 hrTjEEa0CI EdrIQ tDnoZATmDX O/9sY NfQQSDxZ8v vbX3H XdzcfBQCAL kS/2C Qr4b0p638d Qjjzf 8QFp45zE+d Dg2Pu qMlUnug2t1 BGgoJ KNHEEX90IH Kdro5 3aylYf00Nx Rofrn DvMIzbVCmC UAZfr r7/2yXVGgx 5OKyA qLCJhGtuH/ Ieteb kiRSMeMGSJ 3a+tB gQxzPGHByN oIiBS H1HJX7d0gU sxpCT CVst0+9SUR Of1/h ci/x8aVEMI +GFBj ISdxzEdmz9 lChAh 8THSi1YhS+ silcT 5rj4KylSD+ AUVwp JfdgrL/snz spiaA aunf8u8b2O eLyJ8 7qhl0oVSFD SZawx R7EaRHoaFK PdBak S5aT9Ncixg k0Kcb bgvKLamWHx Ej8wi E4O7d9CmC7 timmy/e 2HG2XJ7emk ITUus 2oYREpuPVi +7zTo XpYhQnd2Dy 7zmvz WfNL+BJRc8 UsJFJ Rwjdg+99pt lIghl /IsJanPX8U YMG4R o3DuLHPrsq 5vvC/ Hid3r4ljdb mbTw1 Bnsu6e3OTX /QdLP XLbw1dfhiX tP3ZR GJFYh1dkmq EwYH6 1N9w/rqDrW VtvfC HHwjTRiGYL SOuEF aIoeGp2UNu Fp9wY D6ZKEivMXH cPl7G zAS2INto05 McQmO rujMC0zPJG diky9 LjFHK+IvPi s678J zoMmHa+2qe RLxdX yIBKYUPyVe ZypdT K+PlugtVa4 /lDSq xHQ3Xnwj4f TiTeG BiZoSnZ7PP ZnYeI jZTHz83Ugr CTONC a6eWWSBIl+ OThsz fIgrPaVNyn QcsEZ GYFeKcoBc6 9Vm9p Iz7UpoOZcK 5pE45 bWpy5+mR8u E4ASA 9igK15Q0Tm aeKTD DNjX3BHILA HcDST DBFdYwOjp6 Ri0aK /fAQUXIDrH ZJSJr 9KlEHm5d6G kOon8 wwox0iO/Re 1wSAN dHszxIKwI2 vBrrx mRLvGLvjpm iMzbF gyqjPHLeBL XiSa+ hVtuxhvt4N WYjBK Q3tQyA7YjH 91PQQ Vy4wIGUbRr DzTdP x4oxsAWf6e 3b4RA j9MwowlOdv 6gRjv HiLS0yLOro 2qrfS xJ9VF8NLuW Od/Gv 8Pi8nVhr5h tvGUh 1VX+WOZrcV jB2Lw ZgebWjh8iM vDCHW JMetDvoOmG ohj+l gL6kQgGRLx lCRTd WQcD1Ud/FA 1qnI+ +EAyiUx+Nl +MTlS /JzWQXZnDh oJbKa Lmrs40GoWM nrgwz HB7GDJLRvB Rmggp K/8mtY1OF/ JSSfw X2jZSgwudM vw4AN Azr9KGC+Es +3zQA 1zDmcOVHpK HpqRg RG/7lERBBO bOGC+ XkJckwjCyO fIk6O /hckTzzPeN rX5xC i3zETwxrtN pflIg q/iabqOfRq hV02b hSIXIwf65z BN8yB PU0berOjLI GDrtQ ReNYm9kVzH pD1gh Q6N9nZHH1e etCzv CHfP8usP/s KqHex IiMJFfneEw xOjFz lUAI7WF/ua b31N0 Y8u4/+VJHB UQqkm /LgA8CUyW9 rg3M5 A19SGCnXqf cDR/a pjv45MirH4 fIQCG 8g1uDC6EMs VVccX /jw6K700BW QpNhw LpFS8jN80S atNge GoajELZ2On p24/q Cf+2M7s4dq fAsHq mPLQlRr7Pd XAKRc Hn5QDPW+gz pfSNh N7xw++ne9Z lzB8s sQt13i9xRe vGZN8 xx11zIsD7f xDLK6 2wJ+3TRwJM lOv2i y6Z+6YPd4+ BR+cU XoCWIBuPof Ul6vw adTD9ONsE+ 11mt3 F1cMvjJ0RL 6FSJC CQWJJp64XG mH91/ 3p2TudjOXK MRjhZ 4vlxORbUdE iBjw9 KgD6n94aHr NTYks TUmcL2FzKg KRq7f zM9RVWVEib 7SM2i dTpDJA76vT FEBxG VBTzK8jmRM uuRDR 2lVJx3IokQ VSAs3 K/IY5KqYV+ SU1ku K/eG6AouCW B41b6 DOiKT/ZHvJ KEZGV 6RiJ4wENFN ciC7l cA6PBDjUki 6SKvA j/s51n+y7u OJo6D RKDnwqA7hr EiKPP JTRSdFEQKv nqZ12 sjm5uAWUlJ aNE7b v+CdOSg7Zg qjM0N xsgkDk3HQF eQK7q brnwAuS3Ld kJwBH TSZS7cbn96 L4dym iwtppOReFm mCen5 FZsPhIJhlz spf7a jHia8gKek5 S1E2T Jicjnu8/iv S1dnu mfJNEb2mrc BZHNt olYNiFTzyA PMvW7 dvD+ERhPxq ZGJzg GmWAfkzK83 iNfgq Zphtt/HMNf NyIKx o4ZBEiSd+2 to63Y FJTfNdoTjq QJWpo AIglyd0ZPz b8QIr zsr8mlf2jm g9FIe CJvt/5gjJz DnGHs jRWuNsdtgH lfAJG WLGOCkJT5u 3VnVH x9SG7JYZur CDEoJ W5cZ5CkT6r wIjmj MKHpe0wTNK kFpXX yd/rarbsTl wvg/c DhWT8yfDho zZy/e 0K8elj3kGr JmCIk XRI83oFoaf x1EWU KXvqqtLKqe y/lRW sKNpXU6cfj 1DPqo 2uTbQSouGK 1O9cL gtm3kfaRLN SHQ9q IiOSPFhETq yi8qr B4ptSpEa/Y wlyYR iY6Iz3nr0F yVaRF 5owCkYePno hNac1 2pNWF6G5hp qgWqU jtfNYxYuPk nHIs5 0MHmR3fOHX cRYgQ 2HQIkeLI8E ftHb2 ofSaX0Bg8I fe80N JN6AH6srl6 WNidz KW3g9cSMfI ub5Nd 3NgjEpBwBZ vAwEP DVK5q4/Xb9 2EaGS REJNJ2EBU2 hYi+R 6HRa5iM3pH c+uvw evoyolCb2j uel9P NjigC7MyH2 joevz hiYyNzUalN jc0JH XER71cvjZv u4uBh v6MM9tBW8Z yR/jz xWuUDnNEgs TyPJk 8/i2/W3ror ZchfW 4VcPg1P0f9 qHMA9 VsJQ0Txzm8 IiWuu k7/TiugiiU oWWeH xcQO3gj1Ou FNVYe SWSVQowFJU cCO7S EInGiGhJoQ cUaEj BLDYLlPVGj rBYjE zgdKpo53wI 5F6NH rGSdV2IIQm V7qdy Ak39E10oOQ stkty tTiG9GRDM6 JDxZ5 CIGJq9RkA1 xt5jU CnhgyWeWNZ osh29 H0nq0Bo0L+ dsCZY +ZFUaXqXC/ AEJMw 5tt7Lb54TH cQvIE pVDSlvBa7n tPoWE DkO0foLUxM u8s5d k9LYEhv24s 7Zepl 07n/XLPU32 mdRBA eC0Aa1IYRJ 2GEKk U+Jyu21ExF 6GIGX 1/F9eR4K3w qz3ug ddFk/GlbIa mYjo8 b+gvWpkQ8m nlOE0 jcTdbDdItB puDzj TSpoT1d26i p4HKF Fq9xYsvLNQ Lfyxn w5/w2Hf6B2 zvgiU vqRt4jA0KD 5Urck trcTpzDxvU CKf+1 3sBnl1PK/R /cpLA rXdkKnrQ4T bmsek rY1lCPMHqz xTVF2 eR5LpGbR6X eLqA8 DxqECg3Pwz Bisl/ 4bET1/tjcb 5N1pY qtTfeKkDt0 Arax4 h4acS6HohU 2kX7U Yy7NamEt6b nlMvC eKpDJZe88T L8Eem XtlNxAYq2Y no4UR dyNNw42Cp7 sVgt0 Kd87TsIepf 9dOwW hxN3MIWkzR sACQh fm7HoWHgDS GdcjI HYdCpWJ8oo y12d3 OVZ6lo1oBS G6wTg DvZJOUp8R+ k25NI wcqRyLRiXS ivrCu dzyHRA8Jp3 Y1SvJ g0YowShIsX Nt2Ce eHaiNHvf15 kOYKM qUjDNypTvn OIbX3 npO7jHpaNQ +WAOv lkXAleuqFF 8DGNH Ia35JM2sqX 2WDCo QSWtOv01ey BZaxP Wd/FubSMc9 clabh 0YOLipBQ2N bsvNI 61wKbr/u9z C6w8s 2SkTP/fEuy 2oDfI 4XHoFY9Nk/ NWB7z yOYPZe0sF3 eAMTC yw2cuyEuIT K4SMn gJ37R6keG+ abjps NiIL9IK/TK RQFx/ 2L/dwBUjHL 6vQF2 20weHSA1Xq 4iJNO CSIS47AAb4 G80Ge GZ9Ofc5/2P a2tDS lWJ/xxlxpd dZX/z wCLFFkVT4l hn9BA xw4E3pdS4o VxUeL 9iI5u52XuT A0+V2 qmcj310Nss sCyga 6/0x5FcBAD 3yElJ ad2QyAyyDU lob0h HR+9U0YN/B wP+v3 YGwVR3+DANIELLA Uy/zs 3wq3HpE6kR Hq83D E6fLFpKcWP fe0Py 4uwsFUHeMP pEFU1 waKf0jeTQn jriCc xMtLmigbqN Axsem OmhPBJj79Y jx/vD NLds1UaWql kQKTH U6hF5g6ujU Bb5mI /MQmOAGc+m tTx5L lO1Mq5lftT 6aauR gijCNl36p/ P0ooC Gyw6I6OW72 70T/X Rs0GZkzZ95 fZH1+ UiSno76gnL xtR1L dLlR0FHxjC 3ZRzk 246yPHjEr3 3CKPp C3PwNiowul x7N8/ mDTiI0fSJV n8eHz /Fj9iQa05q 3lo/B 9b5oPxlUm7 r9nUO vln1/5X76N mbbFN YY2diJzd6g 1CWMg XBRcQwUf8J Pa+yL QmkWef3IgB d+8B9 +zvHdMsGb3 RnXWq 6Du7lF+oWX 0NfiZ nrD+UVNf4d FTuhH ryjwlLveF9 K4Tve 0e2CYDZOd5 i1945 JW0DXRcG4Y +/zNW iIlfvEdEra WtqW2 A+al40ESEY lrzrs KbhWK37NFc K/3vA Kl0gJNAlJk IxOqe 5vjOg6D1/9 cQfD/ fkQAt4cZ8X YJyWX aVq9zsoeOT 2zidc lV0d9ts5nl ru1UP R74Cbhdo1L pVVNj R6yjz4Pc4T aLjbe Q809ml1KbL Xddyo udjQXSvM1D GOnch sa3/6FpG3h +RR3/ sE0qLKjJxF geA6f czLUicC5qY ZrNA/ 1viUda8adZ Xk7YE LA80KtJIJh QgCym 5oMIkCymRL TvKb0 v+3iLwumfK gOedq JKnrv9jnkC 7/D5b cZg6FPE6dv 3RyZW NmKzKzCI5l agoxN kIfYY8htel 8PC9H rb90gAc6E9 MvVHJ hbnNwYXJlb mN5L0 yofFH0IL3X IGZhb NPgD0RBRBZ zIDAg Uj4+L0Nvbn RlbnR zWzIgMCBSI DE4ID AgUiAzIDAg Ul0vV SpsJO3EDTz lL1Jl c306viSkfc w8L0N faV6fF8NtG 2U8PC 3IPTIwaMo5 UkdCI DEzIDAgUj4 +L1By l7RICEDtJc 9QREY rZ5DjsGOfU 0ltYW qaJvXbXX1m Z2VDI I3DlMMuYIm dL0Zv nuN1EP2XSI JvIDE 4FIRxQb4BJ Wx2ID UcOMGkKh0P aTAgM SAwIFIvSGV PYiAy MSAwIFI+Pi 9YT2J fPXF6PEdwr W0zND U5ZZtpXDYk MCBSL 3RnMzQxODU 5IDIy IDAgUj4+Pj 4vUGF aIO10YSQaP DAgUi 9NZWRpYUJv eFswI DAgNjEyIDc 5Ml0+ PgplbmRvYm oKMTE gMCBvYmoKP DwvS2 pvi4ecJlSs IFIgM jMgMCBSXS9 UeXBl A8IrI0LaF9 NvdW5 0IDIvUGFyZ W50ID vlNWHUEc6E ZW5kb 2JqCjIyIDA gb2Jq Djt0G1vhd0 VwPDw eBo3RruHig 3Bhcm AcG4flU9Sl L0lDQ 6Bgd1IuMBN 0IDAg Ul0+Pi9TdW J0eXB bA6Izjp8zF mlsdG SpW1FhDFOw RGVjb 6BjB18nbNF peFsx IDAgMCAxID AgMF0 qNGioJQ9AX 2JqZW I8G2Bxff9S eXBlI JIhXsLbv7E yY2Vz PDwvUHJvY1 NldFs sNEUZE6Cor HQvSW 2lQ6EVW4wt YWdlQ b1DtFLyPDy dL1hP MirdG3M1PR 9pbTM 4AEu9KaAcV iAwIF I+Pj4+L0xl bmd0a AEzKN0HAx7 4WzAg MCAxODIgMj ldPj5 veHNnBO8Ad JzTz8 v2OfN0MGXM cMkHA BRTAxUKZW5 kc3Ry ZWFtCmVuZG 9iago dRJPoGR6lt go8PC 7TyMg6VTWq Rmxhd GVEZWNvZGU vTGVu E4CgMRT0IX U+PnN 8lbIodYh6t NVcbW /bOBL+vr9C wOEOD rBh+CJKYvd TmqSt F+puR4w2x2 vuB8V ZHlKj8NXbZ ru//o aUJVGyJYty DHQRt KOco4L3hLh nhmQs 6w+LeHHW5D OFZQv BPHu8pGyBm J41W1 2nwgeHUF8m 28T69 w/y6+rLxGL YsVxu N8eRMwr+ar 2dWhj h4t/62br6E LxNLP h0+uGXb20W gRizM SbWdPlpMBr /483F 08w36y8v11 76Q40 TQ4jum6JNz sG43c xJTofZiAG7 Jh7RV 2hsXk2GNH/ Rv57N da52nxRgwx tZg7Z RPcn5Tk2cn Y82z2 E8kGr5fAz9 bjexv 1fi2uRZK+H Gj/Ln ewBwDKs5ZF 7C/bf vvIU1Ed7t3 /+Ys7 x+HA9/yR8m jaw54 6dO/d0FTGA QLP0o HSXo6EVoOs fFxWw 1BHbZNxh1D CZ7Yd j97WEKuqjY LIRS8 fwj1N46xsW 8Zk6d CUKKjtkR9K signv PulL1EFQZU G/fQG ObjK32uK57 R7D+9 nHjryU/Plg GUWGe 9//LXxHMCb 1sXbS T2P/ycAPmQ WCe0+ HDfVuQcWTk PIkXK 5rYaYvUQH7 KGx0F 05mZjb22R/ 4Gc52 fSgNunb+HT wizt6 VlXH3lg0dv R67yK RumM3ZxAVp 42ZIg B34Y4EV5aw lwPX5 /1xaWGjn5T 8Icy/ UAY2zzROzm wjry9 D2Mh4oYdQd c3jZP FZE2qKCYAP yHYiY 1i034yjE3b NMjfB ZI3gdyc3x2 N8HVN FwGzVPLLOQ UzvYV pdniFdHlDe P5w93 yqZ5UVAZvu xkwAW NR4+sg26GK 8XQRp jmbeTLbLoM S2cyS yWINfrg9lp nn8IW wRAgrfxNqQ 8L4i8 vqCF074lKx zj99W QMpZr2LiHc rZBPM OFId23edff 92aVq 9Q/EgWG5A5 zKzwi QrZ7UsgvpY heXgA PlC50a6wYG bgs66 JMiqsSz5o5 Cc1CY JthqEnc4fw /YQ7b eS19AGgvYo izSzi gI/DSoLMTs k2ofA u0bYXQdZ/s iP/ed AX+DbYOXnH q2/7x rrRl14e5++ yB9t5 l3bhGYQgr1 cHMEl Fmo6khyQb8 r5N4w NsJn2fo1JR PWTae 5amEy6T5KQ R7brY Yq4WvrSLqo xYTpb +OuwSrAO5S KpZgc K+gPoh95Iu AcgDY qHquCXNiIA jS4pR LQCn9aqPIL H4gNF woryp+xXlH 87+z+ wNzL5revSD YMJOM W/3Bz9skL0 GMhlr x9Jb3mqRWZ QF2si HuawV0rfZl B4Dbm NSV82axYjz L+Zi6 jR9IV5adpa ghwYC NkIK+LF44k S62pb EvA9PVnjcN qXmT6 rjTS9siuP5 vf6Sb q//gcVXKxA VDOQN lmJi+qiqrc OSar7 OODzTNTg3U sH3Pw 6urufFmjve tSCSB RVN4EdkAoT kpp7E iwD8azO7an wcXhz F9U9JG1zfO ruajo 3Sd0KcPTIK ip5Hb alRF4n8jK/ ifn4b vIrlNIEsma x5JNp RwnxEe7Kws jgRBm uVULaljnq8 +Djhe VBQs+x1pcw mEOGa vVSz9TuAIj e78bv HsajIkvey6 dutRU +nfvbRZlOR 2CBLh 66bPQ5vcNx VMlBM 2GamRxRkEd O85Xh +/u+2jmRdT ftHAH XO4TnHTqHg BTxKB 6h8YM1GHHk yhF/Z EFd8YUOJ/1 AFIdk gLErIAnsPo tkfOd uU+ci12bpz 9P2QG V8aDqYxo6r o+0Sh AnGmPaiXcN mb5MW MLo6V6LiQy HowLp QZVRuSjUba VgD13 TVbMCFIKmw D0jai r/rpXMn+cy tigK8 zFMDf8y4Zm ZAGEs o5uY0zvB4j uu0Of E7qoxzA4vW rFF1P ABZVaR5QEn xJ4kl DUm1rEHLWe ezzCC QSfrZFyAbg Z1Sju ZrA5gOY4vZ +E7tC 2OcL0CTkLq DkM4N QpZOcG+wTt hBBHs ZQfJTjM6OC wyxhx Dek/DeYJ2w LBxdA z+rKM8C3ez TzJDN +7vp9tgZ7b DD0UT peEbKU4GHX V88Ll YJ24keldM/ NvIJT YJa6yC5sQE ahCzE DR3i0+Po9v c8gT9 Dcn9eAVV3U slKwc dv+TeS4dDV aH2r9 OWG7ST18W0 ZLTJy kGlAXy2Nca mWjV4 m5kdgmlw82 yPcFO 0HRVRvZo2T v2K0D 3314XOcpGF qYuO2 psPQKlX954 py0Zy eEb40AjndX wWBfv xMbfyOUSRM RAWjM 0tRNiA/T4I 1z1TU v1FHZuo6p7 QqQHA p7duyvy+zw MxriH 9y6d4ny1JZ P00T8 SGvzdcW9cj cdX+/ ipc9yybAsY A5/5+ oOP3Fhb66b qb5m9 cQnx84fnoj yi2bC CZxcus8CO7 oq1yp h3thIVbrlg dnjAj nzXFJ2k9U8 0sJIO V7AVWYvr8a oFOHs tvpWgQdpl6 noOdp ShwU1okz7m PkTcz 1UfWddjslW fjK22 IqcyfxPJSd +s5xL JMHDJdCYir kOe5t 2GQC0FuKCh v/Sfl VcVbiDLFWz YoJfL xKksnYMzG8 OtU9C tWsjAnpiOA OU69T 9Yp2ToHZCh bQA9S N8k/FzOAJY l8PQ2 OK2m9UOwEP zzw0D cinwbvu9S7 tfD8s xSHH3CVcR1 b7W+c EdswhiLeWW QDohd 77qIpS2Ndf rd+46 UKc4umCQws 2ToEd 8Xsk1uWeeD 0ceXd kTdHeA5juM chy2O 9uH9FX2f3D HRPSH DD2Rg4vBFj 1BBHp 7h5qgbUtV9 G6SSo lIZRLqiAEE Jpnnm EUxQBJTRAz cyiA/ u6+xoLlb1u FtUqw eDvQebO54w ufq14 dagcCHstKz 49+P2 05WAnYJxw6 5iAG8 NP4w3Tq7q8 XaQPk q32Wj3uEhr /Xm3t ZN0IstcogN m2jfk bZtPAjZal3 f/pLI zNlHFFTsEF cJEg7 9SOV8ZWElQ 6Q6h4 FnTqEOtwd8 ++Rrg jyFq3fPi9m JFsZX a0S5WdzS4l hynUK fxIVG5skMa KvUje JNR/lMedUG dq/1P 8aVY9XS6z2 0D067 oQQUCAZwSP sIkIa 7CCcf2wBSt FG1q0 lxuBCr60aZ jpnns 5UeIgpjvmO HHXwu /JXgn1IR/n hrM8X jcWGhq6B3J 5Xey6 HGhDKPLeix dHw/s x6pQJLpAcg mh6Bw l4Rq6KTMph YkVdV 5PV/z6tIsD 34LlR TNYO0/66Kp ICmXA hZlFew2/is aqQeg cLfrpqjSzN VjZI4 OMKzS7B1N1 piUAe 2vLSXLYwD4 6qKOQ xRRjCpGDrF 35lqX Q8En3J89d6 juWpe Xol4RMkwhF iEkov G1wnytS4Hm rkrN3 U0TV83Riy+ Ft2mX k1C3q330MP 9q0fY 2NAd91GUrv Hin6Z MnMQ6dWIGT p75dv i72s7AepCj ZlFRS Y0Hj7ayNzK zOABe 3yTQsmWb16 ActNt F2M61E+flq OzTr/ KU/KysXp/m yTKM9 UPzYVHJll2 teeiv 96wSW2b4Dl yO7kP Ab5YFeCnHy 7k3vl dm7l32zbOE lcHVQ 02ea/eV2Kj Jkt+Q oNs162vtVv U6ekJ sOce6f5V++ jXuHX RQKCt1FOF4 taWqL k2CO87Tx84 4K+5f PEDLU2n95p UJ/4I 6KZWjXhalu 2Q9pm Zi8KVoCZVM wni2h uFh/Fx2af4 Mg81u taZeDJ3WaT heKNr 7x6wi7Drs7 m0SpX q/wL1nO4NW m2DpX UskCXI44iJ DXpXl ZrFO/I2cl9 aP8nt oNn5zYPSs1 SjDFj BbcbdFMpsk 5YhMh T4RUombQVE ygMQy Ea4MfACflV m8e4a DnUJB2rK3f 6xLa5 MHHLbINq4b lShK1 PhPUqqK1RJ vAZrH d83MdKnCVf qpyUH Q3IjkzvVHM H1EYt LxM/RGVfKD khCTW zKsZZNKXpF 1TLoZ bzi8MBk6hI nADDo rv3MfSVDSn dwTd/ rSNtpYDJ/j 8Es48 0t46JlkXBw TSa8e 10menJeGDR kqL6v I/EcGEh4F1 dBxbx X+zdlUC6Pr l46ZR CqiKf+9Hk/ yD26S j/lLVaPFfp o04ZG G9c4M6V0wY QqwDp HUxyD4pLgB sRLKa 00TxTxgq1m ZxlD3 o9CqYSvJI3 VfsIR 9j3Tw0agkU cmT/5 e/QC0XihSu SotJH DwrGrsgGJv MkEiI 6jU97amsjb GYpgR c0+UyOHRZP Y7USQ ht5qs2r8Fy LOCx4 2+SziU8IAj 1cvpQ iaToV3i+9C Gy9fH 0pXVChbq2P /lV2i BH1kPDhgmV 8lrr1 mivjmJieLq NeH1P k160z64u4d XmwXk zkggQHt7ry bmGBy rrNF/tQOUe 4aYDl QCCgaXTffu uSvn1 IwHK02Wt9z 5kOjK yOOLaiBglW +LQPm f+Uxcq4jKq Du4Xs PNyuzqEUT/ lL4rT e9GxTw9DUJ upsm2 allXFYVpFL tEKot 0fdVk/QT2T 5ZXa/ XbIXwrqHMh Ds2S5 ikJfayHofF umGsp G6LOIqSfE7 5I2V3 pYvuuH5Txj zKCZU Dd4Y66t3BQ XdW0m 0ILsPP6nGO Q26b7 pXSVstOmdF eGZGU gnHAfpNjLY f1TcH bVq3W/bE2b 3vCdV OsqOZs3Ry/ pYXHK tl+mArsCJq 3/z6E lxUp9HF+qU 3+tlj AaX35bXjiJ NF64E fGBwwaRK+P UShv4 nUToZKkBjg TXEen a9uHXm8neZ dVgUC Uj2a7jBuID rApd3 Ej4AQpYOIE 5HbIJ 2U9TP15bob 3t/Wy AQyvFe78LE kjjYy 7l4HcjxRKS Yl3lD Uyao9R5/5f /Z9FE BTcOxHNE8b mVhbQ plbmRvYmoK MjEgM CBvYmoKPDw vTmFt UV1RIO1gS3 N1YnR 5cGUvVHlwZ TEvVH gzBE4Js009 L0Jhc 9JKx797S2x lbHZl mUnyAP2PSf xpcXV yS1MzH13kx W5nL1 hbeeQbp4sS bmNvZ GluZz4+CmV uZG9i agoxOSAwIG 9iago 7CO8EXX2qM 0hlQm 9vI3YlqUnn ZS9Ue OTiGB2HxAK lL0Zv bnQvQmFzZU ZvbnQ vGTZanvI9j WNhLU QxzDCcLX0g b2Rpb lnqO6ssWO8 zaUVu I79vwT9wId 4KZW5 uo8KnRqLmA DAgb2 DyPen4R83t bWUvS UJcoa0GdPE 0eXBl L1D0qYXfY1 R5cGU dGk7kjK3RO XNlRm 4osD6BIXs9 ZXRpY 3LoJV7je1X pbmcv W0tlSQ4hoQ VuY29 znY3pAu0EP W5kb2 KsCyR9KDYs b2JqC qw5J7PvmG5 yU3Bh F8KdTYL0kU NlR3J mnL7LeBR9i XBlL0 jqIJjwN5ke aWdod XGpWG1AhHc 0ZXIv RmxhdGVEZW NvZGU oECisSV4BR 2JqZW O0F3koEVEd IDE4M o4OiKQmOVH yQ29t pB7sZY63DS gvTGV eB3XuBFW2T j5zdH YtON2CqGgp wTEBA AAAwqD+qWc MH6AA VKVNJA5U+2 OKjwp lbmRzdHJlY W0KZW 5de4SjRtC0 IDAgb 6IcOlz7I3Q vbG9y F8ElV1OiG2 lDQ0J el5AhFWM1N DAgUl 1dA7StcGxb ZS9Jb NMgHJ7KAJg naHQg MjkvRmlsdG VyL0Z sYXRlRGVjb 2RlL1 O0aTPkHN1s amVjd G1CIXBzXBY QYXJt ocn6W0PcdY VtbnM fSRdgQ6Fjz G9ycy UnC6DcPTLi Y3Rvc bWvDP0QxVO zUGVy G04bqI4lEG 50IDg +Qk7DqIB7b CAxOD DkA62qj2uk MjQgM KKIJ7gyegb 0aCA0 UBG0Z7gnyK VycG9 sYXRlIHRyd WUvQm m8x0TmfhIc bXBvb iRytRW7Gi0 zdHJl PV9IuCjgkz lUVEf Wx2/iJHMm0 bhGWR qatWVzwSWO E+PES ZFHlrrk7Cq aYjQR jQIaAiKgQN N00/v CqoCANoLsi 4ACsh nDJgFlURFQ UUFAQ CWZVAo7jtI phkbR A35Lz12J9+ t671X d+tW9/3vrC T1vzN TTM3u2j3ll F7s5N LVYxeTElfK Hr65/ 12/XxaRXhC ZXxGd Z8Ug3jKg/y wHa6w L0TYM/NQv7 7Ad8L yJH9gl9AMi ZV0/P p13KsTxEVW x9DLe YvWeKxa5La Q9VNw nYcSz+1few W5hYY rjjJChRQIs DRNao xm4vyM3+10 hQp4I mExTpJZWNY 96/hq bHqw+Gw6Sj MM15z umRZIyvK76 94EMH FNHR8xBSjD 7jEck pfUFIy1JqD np8fK lX4OY1qUg5 BjZqb Tqhxll83wR sqDNB pg4m1vAl2i GppTd rGl51/+qbW r/YI4 JvNYZ6OrVV 0GSP6 xQr4JFBq3B eAOZ5 ZSS87lfOqj fADFe CWxfmaGU7c YtDLE avdvY8BU1/ zUZE/ BeGGosv5DH Ht5Oc CZbhSQ6rBj Vm8a2 4l1CPvx7WC IsKc4 bA8ABdpUv/ Tf6aD 3K0aewCrVm igcAE JWpqboXUBm T/DCA lEPrO0z/3N wWIoW myTIQ1ijO0 OehkB OYNc7/2xgC Y5QEq 2EoL3vsjyn 3Nx8F AIAuRL/YJd zqnyr rXVpCOPN/Y ImLvm 0n44WQG+6Q O02zJ 8wBLLiGpp7 FY8df ci0wo5dauP OmIuP rlixGh+ucO 8wjNt UKYJQBl+uv v/bJd NoMQp1xOLu sImEa 85t3c612vH JFIx4 tTRkga81YZ DHM8Y fGO7sgHYEs tBQbu f3E+zGkJMJ Wy3T7 1JRE5/X+Fy L93Sk wo9x6SERGp J3HMR 6fD3UXFGVr METHc PcN4nNIuBf NzRmy 44I6PHRLgs 92Csv +yfOymJoCK O+rnL qw3K2jBzku qjPaE gQYVJlrDFH sl4xO +9oO17FuMi rInUH KBqWTQpxtu C8otq ZYfESPzCJj hjqXo QSNx1jW33n k/kdP Rtu1aUR2xh hhESm 28YU3wNXva gOhGW HUiLvOa/NZ 80v4E lFzxSwkUlH CN2D7 38k4TpAOA6 +5iSZ cTlFgwbhF3 YPI48 Citvm+8L9S Cnib1 19rGZtPDUT CLDeP rITX7J6m3L eyT2r K9o+0/dlFg wIaPb GDCYTBgfrU 33D+u rBiGO662Do fCNNG TVqzH14NN7 GyxGX g2bfIi7DsS RNZaR 8IE5w+Xsa9 VPhBd 2He5yaUV9Y Zs4jm 2sOV2XHN1b MUcr4 i8+KzrvwnO gyYdr 5cm4NmS3zO gEphQ /HD4lUi4Gm 4+W6C 1Vrj+UNKqA wno/O XljBTAM1Qa cvNOM 4E5Oxam3qD QZGD3 m83LVA37Hv ekQE5 RYK91HPfI7 iCs9p C3QgKbvAwF gV4py gDcn2Mw0sF Dtiuo c+BjmkTjlt anLn6 URz0SfYHPh V0bbt lIN2t9gSLM Z5jpl fBV5zeITJP EV1jA 2UjuKBPvm5 8BBRc gOsdklImvp OZdB3 K2oKL3zadj /KXyZ X2R1AMUK70 ezPEg bOuk2BlgYL Eu8Yu +OmaIzNsWD KqM8c s7JwiCJz7f yl62J 2TgxZiMEpj uBDMH qpmb1R2HK+ Xegtl bA+OCWA594 aDCAB LHyTdvhECj wS6tq fY56tCJU4A 8EHWx RaV0nbe2NS rQ8Pw gGKh218k/h OPqgC 2xn293HNRJ Vf5Y5 mtxWMHYvAt /CIDJ zmg+8MIdYk x60O+ m6YogJW8Nd D3Ml0 LzPdOHWA9J V1Lcr B2PEEkda14 QDKJT C00C7hHOK2 nNZBd mcOGglspoi XJ3jx hoBGeuDDNU nY0hU hGhBGaCCkr /3Kof 1Yh8hTB/Az SYoOB 6+0G/DgA1C mjxlF s4Vl6eAMHB MOZw5 UekoempGBE b/uUR XAJ1p3PH6j QlyTC MDC99lZz5+ FyRPP D887nwkVDO uE4+l +Wlal+UiCr +Jpuo 59GqFXTZuI IgwyV /qyfJ2oWZi bSCW8 uEuVGMk9Ij ccujx 82nFqNUAP9 tjZsF KJcH67NU5c Z1neT Ef+xepy3Iy IwkV+ q9AKY0BBA6 UNPkV P+9vlpI4Zz y7j/5 UkcFRCqSb8 S1ftI CYTuuDczk7 XZNFl 4BcGqIP2aQ +vbk6 eQ/f7oCZex LbMEr QUSNVVxxf+ ivlXf uDTpBe0RNF pMras ixRIt65T0d C+VEZ LtDCnbj+oJ /7hT2 HXe05VfsoZ xECst rxDJcApFxi /hg4A K4XNh8V0A1 vHD76 y76yRGJeaM d/margarita lNsI5Hu3cf rrRo+ IHt/EMsrrb An7dN HAkyU6/aLL pn7pg 89z3AN2aMx gJYgG 4+h9SXq/Ce 4o3pM 6AT1JVx5eJ R1SW8 7dcvoVIkJk llVJ3 plBABu7Q/t zciGC chlcxGOFni +XE5F nL2WKAHF8O oT2Xf dOOI3JpVrB qu83g ipTApGrt+4 DgYZM tHJ/tIzaJt bFYND 5kA6WAQQDJ dJsPS 6NCM53WJHs sIOHU 43q7BJVzom 9kXhe Jen3CTFR8t +tbZN tpFgHjVvoM 6IpP9 az8pqYrTN2 ihHZ4 ZgkFyILuWI vwhFe antIhDz1OB +znWf 9Sq90xacDH o+a20 TzPwADr34e NFJ0U RAq+epnXZ2 OvulA RbKMw9Hka/ 4LMwm ghw7kSxK1H G9oan 4LBN2Pgsps CnFSg DoxyQnAEcB BdDrC u9fzvu3YnO C2mk5 P8HfKD9mmJ mw+Eg mGXOyl/tqI qKz2w 9qTxLUTZMm JyOe7 z+Q3UO1o4C 8xciL M1GVWgp71w Vg2IV SJAI9e3do0 8P4RG E/GpkYnOA5 81PJ9 wTjWI1+Cpm mG238 jg377JjdCz thkGt FD9p4ezgmX lN812 hOOpAlamgx htt63 gdiNvxAitr Krq2O SuPcV0Uz8R m+3/m CMnMOcYeyN Fa42x 83WzM8EgN8 ow9fF RjiXdWdUdv YMzwd WG8GICHfvH mhTki 9XvDAiOaNF RGejy IsQmQWldfJ 3+tqt uxOXC+D9w9 9Ynam pa+tMcR55d blq+7 r3oFrFPvIR YLbnJ CO+vHURZQp e+qq0 sqp7L+VFbE ReRIv jG17UM+qja 5NtBK x9FnT05bxb u3qF5 i0DUDuV0wo I5I8W EROrKLyqtD ieYfJ Pn6cWDZkYU XVKbe OjwXJVpEXm jAKRh 4+trI1hsC2 5RJLl nXKCqBapSO 181jF i4+Scciznk Yqczx wkUBxFiBDo EsWuI Yj0l+0dvbO xFtHh fLpe18cN1a DcpLj PT9FP1T0QJ Hd3tw 2dqf3hx97p 2CMSk BOLo6GGA1P Urmrj 2lj7HKuMJv UMkfR N59pSdP4IT cuPSF vJY4t58/C2 OyS+J CFnM16H97E rLMPx atbmOh6/OG JjI3N XqN3WsAwnL Ar3uK DYRX7c6NJi lADd1 NLxHJH+PPF a5QOc 4UJwEN9kNd +Lb9b wevnpfO6tr OFVrc EugSzqpQ9R 9dPo5 +lH9jFc62N v9OK6 UAITsRJ6gt QtbzO pCMxV5Tz9L ZJVCj XAdBuB5mWM icaIa EmhBxRoSME sNguU 9UaOsFiMSO mwSe/ 5I2WiRb1av ErBjo PxFMMuf7YD z3Qrj gEYkg1T7SR 55nsJ QYbskPFnlZ QtmPo AkbBV4fTOF eGDJZ 4W7bkgGs7g R+zll 4sr49sLip6 kVRpe ykB2YGinOn 1zReP g2kTtM4rAQ 0ILHE 6LqK0+hYQC orul9 oqR09xbf0F xA1Gi 1maxcm7rGK uf9cs 9DqwD7HWK4 TsyHw uP2wRNDpCB 4t7Pf ozADoYgZfX 8bTFX LPRaeAc7D6 0WT8a VshqZiOjxv 7GIlt 3qD9mU0BBQ xN1sN 2k1Ae9AMYi N6dfy 33iCngcoUG vqJem 88Mct/LGfD n+Hk6 TsPXO+CJSd 8WrR4 j7UWqTtbH8 txOnM PG9QIp/7XW ZhprU To5Y3xnfXT bK0iW dUlgkkj2Ax /p0sd RN/LFNUXaU jstoy Ryax1yeBh7 l00Gb q5nvHWkW/h sRPX+ 5Knrg4Xknc 1N94q CI0BOznNh2 2zIDx hx8/aRftQe TguiF QauCjOm3Fs KAstC ZnrxvhG9Fv HEGYJ KnwiejhRGZ tg+TX kN/oxCS6ZJ LvYyQ QlFY937ZmH MfU4g rCpSwAJCHF /Zmw1 PnVuU5oHtS +xik9 Pah/LXZ3dc I7h2r qMBAbrBOAy IAZlC geA2Nbv6jR ypHIt GJdKK+sK6t q8I8r UmggyLY5tB QyvFm OGsm31OP1t Su88G m0u1Z9pabs SMM3K lO+g0ombgK 032k1 y1KM9SK0+W RcCV6 5iXJlZN3mU Lntgn emkDZYMKgM 8SsvH XRy5LggB5B 38W5t Eyz0rYxjTp owx3E PdIczb36gm XApuv +73MLrDyzZ KRM/9 0R5VmoD4uf kqplT LwD94DKyKB BMwR/ fhXq7LrYBy rmCdx M7L7glIhiL fvRH1 2UU5poYcqq 4gjZN t8MhOKSU/Y v93AF CSqht5UWby uhsEF wljDhIt14k 44n3g BJxZemGW6a zkuKz b/N2cj4YER Yn/HG WXp28ky/OY xcVjI 8NSEKz2ZMV 7xXiS IGpGGDZ0hv tbSzz FZ6cFC2LlC 52HnT oeDKwLKBrr /e3ZK M6QRtGOQku ThWQ3 NY51KhnIYp H71TR g38HA/6/dg bBVHf 4hFVTL/Oze +/oXJ jugserzcML TJEOk 8adz24Y/Li 7CwVQ d4w+kQVTXG EBvW6 AZPGOuIJzE y0uaK Fkd7VHx6FY p8BEJ /joqPH+8M5 OvPZC fd5EZFnJuR 3ITe7 y3gYVuyDv9 xCY4A Oc0w1CQczU 30CTh t+uxtln4PS 2NE17 XSD8/SigJG eXc7o COoqyYA8ms zlI+m ST5s4yhF3X JbOvz S+3wN8WLl7 DJTcp GptbdlHOTT f2QQy BCnXcIo+lP 0aciB 26l/Hs3z+F gKY7a zGLjfr0mV7 mbWlV /BdIiOl7Hv zxsvO 6TM1u0bO0+ WfX/l pth9OztL2Q TiiVe O/SXUJYyAZ lN1jA C9yo2c1Mep +xTNz wzKK60xH34 O8d0y wZvdGddaro O7uUX 6hZfQ1+Taqueria sP5RU 1/v6LQ3Vnj KPCUu 62A2ntO08c 3xhNg VBFdIO8doY joBVT Fjpj7/M1aI iV+8R 1Ruyj8qlOR 5vLz0 lNU+WvOuw5 qcRTf xAl4r/e8AC PlpUl RDPIgZ8v4Z 6s23U 3z/1xB8P/O 0IKLq orgxgnJZeQ +rqal 4iErkGV7kP 31zel /kYes3MN7/ bY+yO 2/tapPF8IB 1uR7Y YAZvmkRh1V XzTB/ LIcNm96Ce1 CEpUn GYpfF4mgSz rf/oW vzjM5MWk/A jm04H RzvzT2Jq+q ccai9 ulLYrg3K/W WkVxz yJ7XnJcvV8 H31SY gxI6IADUhv gwiQL DVPmO0qnL/ 7eIvC 9O5hD229uu Oitrm t+omf3PquL G3Qpl bmRzdHJlYW 0KZW5 rg4VhXqBxT DAgb2 PrQxp7H0bs b3VwP RqbBr5ZkpN uc3Bh tsCgF4phAS B0cnV tX9wjKuQor 2UvQ1 MgMTMgMCBS Pj4vQ 29udGVudHN bNCAw IFIgMjYgMC BSIDU bZQBPWG3Vy XBlL1 YiZ4CiNwJx b3VyY 9LvFVmmX35 sb3JT mQWvDLj2P0 RlZmF 1bDBXT1JnZ TMgMC DDLf5pETVc Y1Nld YFoC7VNMwA vVGV4 hPGrFT9bQ7 VCIC9 JbWFnZUMgL 0ltYW oxML8iPa7y dDw8L 8caPk8kCGt gMCBS A2ulpYRgMk AgMCB XS6ucY7DvN jEgMC MAU9fwFMWb IDAgU j4+P8kLGim lY3Q8 QP12KtG4TM g2MiA yNyAwIFIva W0zND F3TxPvMvTe MCBSP j4+Id1QFCS lbnQg MTEgMCBSL0 1lZGl lFy09NzHqU CA2MT IgNzkyXT4+ CmVuZ V7pppwqXzA wIG9i kdl7SD8Jps 91cDw 7P4FnBIQon nNwYX LaznN8H6UM Wy9JQ 0NCYXNlZCA xNCAw INUnRa4yH6 VidHl dYT9Vt1PcS 0ZpbH Qyhq5VkCT8 ZURlY 80oBQ9UYSN yaXhb MSAwIDAgMS AwIDB bV2J2fMCeD E9iam LauM6Be0Om VHlwZ CNqI0Ndc62 1cmNl rfw6O8Bfx5 NTZXR oB9OUWo6JZ Xh0L0 csYEljEp1G bWFnZ BEgKK3eM3S JXS9Y Z5NmQMX4YH wvaW0 yZHA9UoUdV jUgMC BSPj4+Pi9M ZW5nd GggMjAvQkJ veFsw IDAgMTgyID I5XT4 +a5DyHESxQ nic08 /MNTYxtDAz UHDJB wAUPAMPCmV uZHN0 cmVhbQplbm RvYmo KMjYgMCBvY moKPD wvRmlsdGVy L0ZsY OQhTTWwn9T lL0xl ghi7lUXpDh Q4Pj5 fjLXxRM5Ey JzdWW 1v2zYQ/t5f QWDAY AOzzBdRIlv sQxJn e7o8TT5pF8 sUgyK kleM9GQsqT Pn1O8 oWJduRGskt hi1GY nTW2V1b1jB 3ZBC6 K6UPgPIRWg KlxZF LHYvbUgqB/ Kifzp hNhEPRIEHv XunHs 4cJYthBLrc tShgm GJ5BaxGRJO x+lzP Ip2IuTLA1c y9GDq OetBizMSZo En3qj MY/ve5+RpM /XiF0 Xbk1a0VNr+ XfRQ/ qcfK5OiJed 2yLgb oqHeFXRPCe DtciI lv/xPeTdZx 2UY+6 VgCiXNw4BA WC2ba q7Gc3hzSHd Kvhep 3GXpRzuUhW iyD1w um8zvWENgl NeYz2 y1IQ8Zl3Pk m8/CV PuBI8Rp7BT zeVqj njx1L/rQsE OiryQ zCPA3X5aAh dFxs2 aRKrUAWzuS HbRTb hlP9unbzVA DIzH4 NhcHVa9+ax 5qsTY nFSDtQ+FX0 iuai2 CJUIy3Hpwp sEi4H rjSMi9oSKP O3j48 vfov80C4aY hOflh /bLEW7xh7I pR6l/ x7RT3FAN61 R4dVm XZBydOY/Sx Qy9RH JQvEbUrT3R tH+zX p5z6SJXtn1 UAVzL X+Hf0cklHL xkfq7 fwiocr7syr fsE9y mmuDqSoCYd qWQwv Dm7OBn/fl5 NhVP6 b8juGuhqXh SlgrF amOjI/T9W9 2u1Ms PhoJogVHUw 4zEAH IdiJjmrrbf HKLjW 7LbqIHV7fh mngZe q/zPZDRT4G YQco9 otC3wloxqo rxnPB +dWTC7WMTD 5TnXD YDysqn7Oxh HR04o z13CYk8kp/ jpSRW dxM0RoOwOx NP4ST OGBoOgQFl4 alESC +SuVGAN4sa LtJM7 vPswD3+SVQ u9ima CDA8b2LN/V Mh9sy 3K0X1JqSD9 F06Ky gpPyQehlWe Ohixz csUxoftktH snarL D3utNrlRDv VZBKF PXiHkz3nIK tLNrW CUvlBwttRl NmFqH mHcdFLz0a4 C6UFx apelhr/ZEX ezNVd pPYNsa6vM9 Pe+bq tiNsftvNhz Zzewy o5FyXXb0rm kukdL fW2AY/1fwr JKBHF hQ1eNEJJar LXd1t RXMBSrhluw LDbA8 0EWeTYoOVP /eWM2 Toc7UXJipO II8He Ux5sYEGrJX mYRd4 h5DOiTD9Kv 0qJYo IEiw5iJ+oJ VGYjz YmSw889k+I 5rD0A /oTxRACjvk d/w5f GW8WrWzcth eERbI SUQm8pV02c Bdi5M zdAoJrqIVM Cilcg zksT+bQMpk cdiVO bhPLAUGoRj hb3Ay CTNb0R2YT3 hmwLz Cy2s0fghWE eYdLS oI1jxrD/f+ sgY0H sy8GptUEQG sfajb 5FSIqp6UWQ OZSkB e/FnQTqb6m plrif lNzbOzq+Ms +2tXc voyHFNt6D8 RIuVu JYmfNvbcVd ufVeQ 5aycDPctIq L6Z7m bKChNuUtk4 RAFHa 5hGizw5491 9Ie2/ NA/pi5cwr9 XbhHe GPjjV2mUQO UrRc+ EC+vLawMBE 69Fuu cD1zCyeZIy HG2i7 nVDOslfa4R 6hbDr VbaKaghOlZ KKLBV 6Mb3WClEU7 EsJk5 CTZz743NN6 av90w BpvlFNMuvk v2mJv XusvYkVOkt tfEzI r+aFnFHBmq 46R6u b2B7niThyu zci/m uhGp35fhXL Yhsag I/TO68p+J0 qehuG xjgGZkXWOC Q9elw 8PQ7KQaJPT yuIan qZS0hzShc3 iprP/ /68BTEShPh 7YjUu /SbV6NusD4 ctayi WCA1iOsLUj 8KYs3 FmX3ZxyDXj N1ZE1 xTl5Nj9V9b TnQLb 37HxKF4wZA ctjiV SsDQqGU94D O3ACc MB7bwEWJ7F RS+u7 hpQpvjltln sdX8l PklWQXxQaj VsPe9 bKejod2y46 UtPA9 ch00vyQZh9 pzrZf Lk+Rq5U/JZ DbDGo Wbog8fsIba WxcYK Mig0ObyhCQ MiWia A13h4ODqZE I32ts duyzTwMYnV LDPC1 hTF+/AiR5T eCFbr BNbgnWjmBF twS0J Jg7JerU5FE vXNi9 hbY7qy550N 9Yl81 zC5mQLxGBk WpUOE i/vvO5YyiJ Hw6by L14Nqt5qLS J7EgT YqHa6jvivW 17YZF ZhlS3qdwh1 oxObf ns3MQv/PZn F0y1O JaOuqjy74P rFdSG NSHxxVHdNd 3dUkk fNQ+ekyiWF jEULe 9wYDLfG5NA rc5Ov I61ZhOOvbB bFmMP 1j9WMZWYsi uwmiG ZARYct2qY2 PyxIb XgplbmRzdH JlYW0 VTY5nx1WzW jEwID Tno3XlAll5 Pj4KZ C7ig9YtVir gMCBv YmoKPDwvRG VzdHM gMjggMCBSP j4KZW 5vv7GuWpB6 IDAgb 9MxTuj6R1E bMTcg CGSBJ9nPSe AzNiA 2MTAgbnVsb F0+Pg plbmRvYmoK MzAgM CBvYmoKPDw vRFsx NyAwIFIvWF laIDM 2IDYxMCBud WxsXT 4+ZmBdGS8p agozM RDgWX0muod 8PC9E WoT5HUNzGt 9YWVo gMzYgNjEwI G51bG lwHc8ISW0l b2JqC sGrSEAqp4H qCjw8 X3AiLObrOL BSL1h HHnWoPrL5T TAgbn VsbF0+Pgpl bmRvY moKMzMgMCB vYmoK PDwvRFsxNy AwIFI rYBrlIJT6F DUyNC BudWxsXT4+ CmVuZ Q9wczqrYCR wIG9i mkt9BN9MPy E3IDA iJs1DLUanA zYgMT x5TD31uApk Pj4KZ A2xi4YxLpC 1IDAg l3VrYys8Q8 RbMTc gBJYGI1oSY iAzNi AzMjkgbnVs bF0+P gplbmRvYmo KMzYg MCBvYmoKPD wvRFs xNyAwIFIvW FlaID X3DKR2KAZi dWxsX T4+CmVuZG9 iagoz CaCfEV6tpl o8PC9 CVqG8XPBqP i9YWV ogMzYgMzQ2 IG51b AcdKg7FFY6 kb2Jq FhV1ILAim8 JqCjw 3D6LsEJnqY CBSL1 hZWiAzNiAz NTggb nVsbF0+Pgp lbmRv YmoKMzkgMC BvYmo KPDwvRFsxN yAwIF IvWFlaIDM2 IDYwN yBudWxsXT4 +CmVu UA6amto8EG AwIG9 drsf1DV6UK zIzID CsGf1AANjr MzYgN zo0FI96mKh dPj4K TT6pc0UoPr QxIDA bp0IyVgx7D 0RbMT qxHNXMB8zF WiAzN iAzNTggbnV sbF0+ PgplbmRvYm oKNDI gMCBvYmoKP DwvRF syMyAwIFIv WFlaI KN8EXAmVMT udWxs XT4+CmVuZG 9iago 8JpWsYH3rn go8PC 5DCqQ1WPIi Ui9YW VogMzYgNTc 5IG51 zZrsTv7ZVL 5kb2J xFlA0EFIzj 2JqCj g9A9YjZtGg MCBSL 1hZWiAzNiA 1MTQg bnVsbF0+Pg plbmR vYmoKNDUgM CBvYm oKPDwvRFsx NyAwI FIvWFlaIDQ zIDI5 MSBudWxsXT 4+CmV jVA0kkej0G iAwIG 2rogy6VF9N WzE3I BQjPl0XFWg gMzYg CpA1TD94uT xdPj4 GDF9ol0CqT jQ3ID Kqe5VoRlj9 L0RbM SecQKVSL9t ZWiAz WxL6LLHtwh VsbF0 +PgplbmRvY moKND ggMCBvYmoK PDwvR FsxNyAwIFI vWFla RGUnEJA7ZV BudWx sXT4+CmVuZ G9iag a6XZMnAG5o ago8P Q1YYfU3GOU gUi9Y WVogMzYgMz U4IG5 5hQxkJe6FP W5kb2 JqCjUwIDAg b2JqC ob7S9NpUYc gMCBS T8uWPfWcVo AzMjk gbnVsbF0+P gplbm RvYmoKNTEg MCBvY moKPDwvRFs xNyAw IFIvWFlaID M2IDM 1OCBudWxsX T4+Cm XpZO0anwk4 MiAwI H4fjex4ML2 EWzE3 EOAxKy9OMD ogMzY jCjZ3DD67z GxdPj 9NLX2er2Or CjUzI URyj4EwCoi 8L0Rb MTcgMCBSL1 hZWiA zOmJ2JHWyb nVsbF 0+PgplbmRv YmoKN TQgMCBvYmo KPDwv RFsxNyAwIF IvWFl tBKZ2UEA6C CBudW xsXT4+CmVu ZG9ia ok2ZHVpAP8 iago8 VW0TFcB0LN AgUi9 YWVogMzYgN TEwIG 57yQycIm9O ZW5kb 8ZkVrL2HWT gb2Jq Kym3Y3CqFV cgMCB BE8qHClMkV iA2MT AgbnVsbF0+ Pgplb mRvYmoKNTc gMCBv YmoKPDwvRF syMyA wIFIvWFlaI DM2ID UzNSBudWxs XT4+C yEiZS9iyyk 1OCAw NN1wzty3WR 9EWzE 5ZEHgUw3EZ VogMz UrOzXmXF66 bGxdP y3IRN4iv8O qCjU5 MZEfi0FeEh w8L0R bMTcgMCBSL 1hZWi Z5EvU6YaUj bnVsb F0+PgplbmR vYmoK NjAgMCBvYm oKPDw vRFsxNyAwI FIvWF btYDV6STD9 NiBud WxsXT4+CmV uZG9i wss5ONWmZP 9iago 2WQ6SQwX1Q DAgUi 9YWVogMzYg Mzg1I V05hUxdDk6 KZW5k y6BhZuTkXM Agb2J pGsd3C3LaY TcgMC XDZ1lWPxFw NiAzN TggbnVsbF0 +Pgpl bmRvYmoKNj MgMCB vYmoKPDwvR FsyMy AwIFIvWFla IDM2I DUxNCBudWx sXT4+ WyHwWF2eyq o2NCA yRS7murc5U C9EWz B4TUVcRv1H WVogM gRbENZ1JB4 1bGxd Oa9CQD1iu0 JqCjY 9EPHwm3IzU jw8L0 RbMjMgMCBS L1hZW mSmVbC9VrN gbnVs bF0+Pgplbm RvYmo KNjYgMCBvY moKPD wvRFsxNyAw IFIvW RpqOLK6HDL yNCBu dWxsXT4+Cm VuZG9 vvex9BpRuS G9iag k1TX1RIfB7 IDAgU e2TIPyjQwS gNTUy DW25iKaqJv 4KZW5 wu6RrTnT0N DAgb2 JtDvy5F7Az MjMgM GCYY7iCUcG zNiA1 MjUgbnVsbF 0+Pgp lbmRvYmoKN jkgMC BvYmoKPDwv RFsyM yAwIFIvWFl aIDM2 IDUzNSBudW xsXT4 +XwKuSN5sj go3MC FeBC3gaqo6 PC9EW vE1UAVeJr8 YWVog MzYgNjEwIG 51bGx nMt1HUC3du 2JqCj wwXLIrr5Lz Cjw8L 0RbMTcgMCB SL1hZ RuEvWpD3MW ggbnV sbF0+Pgplb mRvYm oKNzIgMCBv YmoKP DwvRFsxNyA wIFIv JXwuAJM4YQ YxMCB udWxsXT4+C mVuZG 0fvuo3CzBe IG9ia uu3QO7SRfJ 3IDAg Ns3KNQawIn YgMzU 9MB43cIsuA j4KZW 8fv9AdBxq6 IDAgb 1ApFfj6L0J bMTcg YZXCO7jWPg AzNiA zNTggbnVsb F0+Pg plbmRvYmoK NzUgM CBvYmoKPDw vRFsx NyAwIFIvWF laIDM 2IDUxMCBud WxsXT 4+TjWnTU0r ago3N gZkQT5wnvg 8PC9E WzIzIDAgUi 9YWVo gMzYgNjgwI G51bG wkId3VKU8i b2JqC yx8OZHqp6R qCjw8 N1AfUFtbTM BSL1h GAjJ1RyX9Y DEgbn VsbF0+Pgpl bmRvY moKNzggMCB vYmoK PDwvRFsyMy AwIFI hILpbUXC5K DUzNS BudWxsXT4+ CmVuZ P8mzcm0IXY wIG9i dyv3VI5EPy IzIDA iGh1QWLdtD zYgNT P1SO85lJce Pj4KZ W5wz9NqOcs wIDAg i5PfDqg0E4 RbMTc zQSBVG2oIJ iAzNi O6TEGlrzDs bF0+P gplbmRvYmo KODEg MCBvYmoKPD wvRFs xNyAwIFIvW FlaID G2XHFcUILl dWxsX T4+CmVuZG9 iago4 GqZgMQ0hdh o8PC9 YJxS0WIRlE i9YWV ogMzYgNTEw IG51b FoqJy7FSP7 kb2Jq CjgzIDAgb2 JqCjw 3K1KnNVwtG CBSL1 hZWiAzNiA2 MTAgb nVsbF0+Pgp lbmRv YmoKODQgMC BvYmo KPDwvRFsxN yAwIF IvWFlaIDM2 IDIyN CBudWxsXT4 +CmVu HM0noop5II AwIG9 hcxy6DZ4LQ zE3ID PoDw8MYUeb MzYgN JMpKK83zEs dPj4K RV8cn2BwDt g2IDA lj5RjDky4E 0RbMT gaDTHZW6pC WiAzN iAzNDYgbnV sbF0+ PgplbmRvYm oKODc gMCBvYmoKP DwvRF sxNyAwIFIv WFlaI TU5DMU6GYX udWxs XT4+CmVuZG 9iago sZUBxQS5ng go8PC 5KPL7cf8ug XzMwZ EB6HBD1ELC iY2Qt JFYlLc3vBk Q3LWV cNqUaSfV6E zNjZC kgMjkgMCBS KF81N zCgTZJ0Us8 xMTdm LTRlYWUtYT FhMS0 wDgd8UTfzW zZmZj EpIDMwIDAg UihfN vV2XPN3QhX tMzFj LW39SXGsVT hlMGM iCWT4W2EuD mE5MT U4IZOcFLAr IFIoX iF6MJq1BXV lLTZh OTYtNDVhOC 05YzB mPEwsDxL1B jM5ZT UyMikgMzIg MCBSK F26WXQiSEF 1Yi1k NDViLTRiOG EtOTQ rIC5nYFI1K zVmND dkZjEpIDMz IDAgU iifMqF8LML wYzIt VSVvSu83Cb A4LWI 4OTAtNWJmZ GQxYj liYTEzKSAz NCAwI FIoXzcxOGQ xZjQy ONH3N8VuQC FjNy1 oKDY1XYM1T GM0MD T9LRIvNvry MzUgM RPLDB61FEA jMmNj Km14PEEiGR RiMDk gBxC6LP0nR TUyNG F0N4G9TsNm IDM2I DAgUihfMWN lNDkw YzgtMjZkNy 00MjV nEQw2BJKqL WFlZW X6HIy7VRAm KSAzN yAwIFIoXzF kYTI2 YmUzLTBmMz ktNDk 6Jm27NSX5Q TQ2OD omUnf7AXOy NSkgM zggMCBSKF8 xNTk1 X7LsIe8xNp RkLTQ 3NDEtYWRhY S0yNz EfLjt7J3X5 Y2YpI BN1SHXuNrz fNjU5 N5M6TrUkGH MzMS0 0NDYyLTlmM WUtMT ZlMTdmYjYw ODI3K IR5ONOlXHI oXzc3 YWEzNDMwLW UyZDI yRDCdMb4cU 2Y4LT djZThkYmUz MWRhM ykgNDEgMCB SKF8z MjdCNjkxRS 1BNTU 4LTQyRDctQ jlFNS 1UABKiYrN1 NDA2M DIpIDQyIDA gUihf YLs3HYM1LR ItNjk mRR18AaMmZ ThjZD EtYTVmYWMx OWZhN 9MpTUH7CrX wIFIo NmX3SFPiIT gzLTJ kMjMtNDczM i1hOT m8EBUnQZK0 ODMwY nM1JRywCXJ gMCBS CU8nONXsMI gwYi0 4YWFkLTRkO WUtYj M8KO51DbOu OTJiN iK2LKRqGDU 1IDAg UihfZGNmYz MyNjI aPpFxRI74L 2YyLW H1RJTmLhM5 N2ZmO TEyYzgyKSA 0NiAw IFIoXzVjYz kwNWV mPZA3CvhbC GI2MC 81XZFxWJM7 NjNlN GNmMTAwNik gNDcg YUMWPT4rQc FhMDF pUY1pBTV5O TQwM2 CmNtP0Ke0i NWM0M TcxYzAyMGI pIDQ4 IDAgUihfZm FhZTk wMWQtMzQxN y00ND MxLTgyODQt MjM2M zZmOWJkYmY 5KSA0 OSAwIFIoX2 NkYTU 6T0QwGAV7U TAtNG NbIQ07CAF7 LTkzM DT1RHY8XQD jNykg NTAgMCBSKF 9kNzI 8XQazZa06C TM2LT QzYjctOWUx My0yO By9NLFzSmC zZGUp IDUxIDAgUi hfOWI 6XXThU3ItZ Tg3Zi 28HJA5TIQr ODgtN oj5KIL8Pvw lMmUz BRN3AxZyGU IoXzk sDHD4RySaP TgzMj RrOGJuKy6a NWYwL WYyMmUwMzZ hY2Q4 MSkgNTMgMC BSKF8 7ZrG2OXJ0V C03MW Q5BJMmSOSk YjdkN K63EQHvShB zZmYx LbDiPOG6WT AgUih jAvhvWIQ2K DgtND dsVN62R3W0 LTlmM GMtYzgxZDQ 0MjY1 KWw5TSZ8WX AwIFI oXzQzMWYyM jA5LW Z3DqsaMZjz My04N DFmLTIzYzA 2ZGY3 MzljOSkgNT YgMCB BXJ6ZTgHlF TQxMy 01ODgzLTRD MDMtO KF3EY1TLHw 1MkM3 RTAxMjQpID U3IDA gUihfMGFjO DI0NW BzTYN7KN35 ZjVkL WJlYmEtYWN jNmQy FVD5OeVoJW A1OCA oUYOxI7YcU 2U0Ym Z1QFWhX5Bn NDI3Z R15KICfAFx lMmM3 ABcfAUE5Ft kgNTk uMUJJMM2nM zFiMG W1XV8vYvBf LTQ4Y zgtYmViNy0 xZmM5 GdNrROD0Vw YpIDY wIDAgUihfN mNhYm EwMDEtMjUz Yi00M WMyLWFlOWI tOGEw FXT2WXG9CI RiKSA 2MSAwIFIoX 2FhMT Z2UuEhFRCr NDQtN RIuZW74AFQ jLWQx RtRtPtB5ID k2ZCk gNjIgMCBSK F82Nj AyZHXjIx7t MzExL TQwZTYtODU zMS03 OGVlNDViNz FkMTg pIDYzIDAgU ihfYj XkAVA0HKZd MDJkY m64BNBxMNL 0ZTgt C9QfXKFaEX dlMmN dFNF5YKDtT FIoXz z5SQSuDyA1 LTQ3Z GQtNDQwZi1 iZjEw EUMdTwJ7Tm dhZTQ yMCkgNjUgM CBSKF 0gACMoVyM9 Yy0yM mNmLTRmODM tODAx Dr8lOeZjFz Q2Njd oYWpsUYU5Q DAgUi vzGTW7QSU1 YTUtM PD8Iz70ZrC 0LWJm ZjctNWMxYW NhODV kEiNgVYY5C yAwIF AhJ7EgOrsf MjdkL TliMTYtNGJ hNC05 MmIyLTVkZD E0NmJ mMzgyYSkgN jggMC AVNR8cZtPm ODRlZ P8aWiRrJHT zNGEt UGO2Wi4vFN E1OWZ jMGVmYmYpI DY5ID AgUihfNWRj NDYwZ YIvNiS8BO7 0YTE0 LTgwOWUtYj k4ZjM 6ILs1Y5SgM SA3MC AwIFIoTUtN Ry0gR WpqZ9faloj lIFN1 xP6xosamDQ cxIDA gUihfNzhjN GE0Yj VqWaSxZW45 NTQ3L ThhZGYtOWU wYTI5 TLt1NPE9NL A3MiA nIVJpG9U7X zNhYT NeFXN5X9Sq NDhlZ T04DiSwXNw 5YzA4 ZjNkNzQzYy kgNzM mJRZONI63U Tk2ZW I3Ad84KFC4 LTQzN WMtOGUxMC0 xMjQ1 MSL3YNXnWO IpIDc 0IDAgUihfY TQ3Zj YxMDctODcw Ny00N PUcDXp9RNg tZDFh CRRgMrX7EQ k5KSA 3NSAwIFIoX 2UzZm JhNzhhLWRl MzMtN XIhNx2vTdd hLWQw DMY9YxD5RB JiNCk gNzYgMCBSK F81Nz X9BeImLd36 ODk4L EA2PGTfQdy 5My03 CURfP9A0Nr U2NTc iVVu2JWGsN ihfM2 FhOTFjNGQt YzllZ O35MrAkIZL 3NjUt NzIyNGZlOD A1ZGE lPQH2PVRnO FIoXz g5RWK1IEJj LTk5Q kItNDVDNS0 4MTk4 HKmOSwL0YM IwOTU xNSkgNzkgM CBSKF 77Q4JqBBRl My1mM 3G1BDUdBIM tODM3 Lx4uGoJ2Uo U2MWU xW8AtTZhlY DAgUi hfYzExZjk0 YmYtM uyiMj11LOQ jLWFi ALCnO7M8TR Q1ZjQ 4QZnnPOF8X SAwIF JbX1DoS2Ow OWMyL MI3NtOmJFH jYS04 YzdhLWRiMm M3YWV iMjgxMSkgO DIgMC YQHV07EAD5 NzA3O X7jUqjzBWE 0ZmQt EQj1JE8tQZ E3MWQ 1KfD1ULUaM DgzID AgUihfYjc0 MTk3Z TctYmUxNy0 0ZWYy LWFmZWItMG ZjZDM 0ZjRlNTFjK SA4NC CfCJFiL6A8 MzZkY mIzLWNkOWI tNDhl RI65GXwwET ZkOWY 5NTdiNmNkM SkgOD XbAVCERS6o NjM2N IFaTV81SMA 4LTRm AwVnQKX6Eh 1kNTc yNWIyMzYzN TkpID u3PQBwQpev ZTI0M GM4U4YaYCI zNC00 OTdjLWIzZm QtYTI vDOHaN2HeS jcxKS O2YmJxCUDa Pj4KZ C4ba9VuMnE yIDAg k4KyWbx5T3 Rlc3Q uZSvITo7pB GlzY2 hhcmdlIFN1 bW1hc cxqV2GecAq lPGZl VuEdLDD4MG A2OTA wNzMwMDYzM DA2OD AwNjEwMDcy MDA2N zAwNjUwMDI wMDA1 MzAwNzUwMD ZkMDA 2ZDAwNjEwM DcyMD E8PU9qPCTc ZW50I DggMCBSPj4 KZW5k q8XyQya3UN Agb2J uDpr8W80dV ERhdG UoRDoyMDIw MDQyM jEwMzUxMy0 wNCcw OGufS3KxWA F0aW9 aQXX5YMrUJ jIwMj AwNDIyMTAz NTEzK k28JfOtZtg vUHJv ZHVjZXIoSW JleCB CZHFxE8HgL XRvci Z9QznvYB2q NS84N KN2BPzOMMF BXVAv CzcnuV2mjR ZpZWQ gdXNpbmcga VRleH JtLb6cEetn YnkgM VQzWFQpPj4 KZW5k a7HoRlndOL YKMCA 4OQowMDAwM DAwMD ElEGY4MSC5 IGYgC jAwMDAwMDA wMTUg MDAwMDAgbi AKMDA wMDAwMDEwM yAwMD AwMCBuIAow MDAwM BZdFTn1DYI wMDAw RT3lOdHsNK AwMDA zMTQgMDAwM DAgbi AKMDAwMDAw MDM5M CAwMDAwMCB uIAow MDAwMDAwNT I2IDA qAIIlVU9gL jAwMD AwMTkzOTAg MDAwM DAgbiAKMDA wMDAw MDcwNCAwMD AwMCB uIAowMDAwM DAwNj QwIDAwMDAw IG4gC jAwMDAwMTk zNjkg MDAwMDAgbi AKMDA yCWFlYZK2F SAwMD AwMCBuIAow MDAwM RG6VGB8MFD wMDAw MT2pJaYhDQ AwMDA 3NTcgMDAwM DAgbi AKMDAwMDAw MDc5M iAwMDAwMCB uIAow MDAwMDAzND YxIDA mXEJiCY4vO jAwMD UaZSS9QTEb MDAwM DAgbiAKMDA wMDAw Aqx0InBoXD AwMCB uIAowMDAwM DA4Nj UxIDAwMDAw IG4gC jAwMDAwMTI zMzIg MDAwMDAgbi AKMDA wMDAxMjQzN iAwMD AwMCBuIAow MDAwM DDaFbR7UDZ wMDAw CT1sTxCqRV AwMDg zNjIgMDAwM DAgbi AKMDAwMDAx NzAyN iAwMDAwMCB uIAow MDAwMDEyNT M1IDA pJPYeTF4fU jAwMD FfGYX4JZow MDAwM DAgbiAKMDA wMDAx NfY0SnJoHY AwMCB uIAowMDAwM DE3Mz YzIDAwMDAw IG4gC jAwMDAwMjI xOTYg MDAwMDAgbi AKMDA wMDAxOTQyM yAwMD AwMCBuIAow MDAwM IM0HFdnIEY wMDAw FG2pXgUtES AwMTk 1MTcgMDAwM DAgbi AKMDAwMDAx OTU2N CAwMDAwMCB uIAow IQAeVNX1Qs ExIDA sUQOnUH4jE jAwMD McNEf5OSoq MDAwM DAgbiAKMDA wMDAx OTcwNSAwMD AwMCB uIAowMDAwM DE5Nz UyIDAwMDAw IG4gC jAwMDAwMTk 3OTkg MDAwMDAgbi AKMDA hMHAcMOc4K iAwMD AwMCBuIAow MDAwM FD4IKviYHC wMDAw LD6jVhIpNX AwMTk 5NDAgMDAwM DAgbi AKMDAwMDAx OTk4N yAwMDAwMCB uIAow MDAwMDIwMD M0IDA jJNBiMR2mK jAwMD AwMjAwODEg MDAwM DAgbiAKMDA wMDAy MDEyOCAwMD AwMCB uIAowMDAwM DIwMT u6LNGbJRCb IG4gC jAwMDAwMjA yMjIg MDAwMDAgbi AKMDA iGGOeXQR4U SAwMD AwMCBuIAow MDAwM TTmMcF9THB wMDAw CQ3oWaIuPW AwMjA zNjMgMDAwM DAgbi AKMDAwMDAy MDQxM CAwMDAwMCB uIAow MDAwMDIwND U3IDA mUWTuAD0xW jAwMD OjNvR2ZQLm MDAwM DAgbiAKMDA wMDAy RVE5YTWtYO AwMCB uIAowMDAwM DIwNT w2HGRmZECl IG4gC jAwMDAwMjA 2NDUg MDAwMDAgbi AKMDA gFRAhQIW3R iAwMD AwMCBuIAow MDAwM EHfRpF5ZIZ wMDAw TM1pWcPgAV AwMjA 3ODYgMDAwM DAgbi AKMDAwMDAy MDgzM yAwMDAwMCB uIAow MDAwMDIwOD gwIDA sOFEiDD1tP jAwMD LqFmQ6Rycz MDAwM DAgbiAKMDA wMDAy RUq4OJMoRL AwMCB uIAowMDAwM DIxMD IxIDAwMDAw IG4gC jAwMDAwMjE wNjgg MDAwMDAgbi AKMDA wMDAyMTExN SAwMD AwMCBuIAow MDAwM DIxMTYyIDA wMDAw QS2fXvVlDX AwMjE yMDkgMDAwM DAgbi AKMDAwMDAy MTI1N iAwMDAwMCB uIAow MDAwMDIxMz AzIDA hQTOgWK7cJ jAwMD AwMjEzNTAg MDAwM DAgbiAKMDA wMDAy NQD6XsChCG AwMCB uIAowMDAwM DIxND N1NPWdHIFn IG4gC jAwMDAwMjE 0OTEg MDAwMDAgbi AKMDA wMDAyMTUzO CAwMD AwMCBuIAow MDAwM HYsZYv5JPE wMDAw TR4oEwJbQI AwMjE 2MzIgMDAwM DAgbi AKMDAwMDAy MTY3O SAwMDAwMCB uIAow MDAwMDIxNz I2IDA xFQIbPN2iC jAwMD JgEjS5TqGs MDAwM DAgbiAKMDA wMDAy MTgyMCAwMD AwMCB uIAowMDAwM DIxOD V9TJPdYYDx IG4gC jAwMDAwMjE 5MTQg MDAwMDAgbi AKMDA wPTZvXDd2H SAwMD AwMCBuIAow MDAwM WFdJIF3JWM wMDAw TP4tJdEsYV AwMjI wNTUgMDAwM DAgbi AKMDAwMDAy MjEwM iAwMDAwMCB uIAow MDAwMDIyMT Q5IDA jRSNfSV7qK jAwMD AwMjUwNjkg MDAwM DAgbiAKdHJ haWxl zbh7YE6Hde ZvIDg 2PEFsMa0FN CBbPD G9QLXtCTCd NzU3N KYlCvUtZ5L 3MTA2 YjBkMzhjYj cyPjx kZmQwOWYyZ jZiNz YxYjQwOTA1 NTdjY 2VhNWYyMzM wND5d G5Kre0LaMo AwIFI dT2e0DCJ0F T4+Cn Y4GIM5uEDp ZgoyN HY0OYetIIZ PRgo= ID Date Data Source [id number] 08/12/2019 12:12:00 PM EDT [facility] Name Value Range Interpretation Code Description Data Supporting Source(s) Document(s ) Physician No [id number] QKJeL [facility] - [id number] [facility] [place] [id number] 5cGUv Center Rb7kkC7LBV NlRm9 dxQ9DOAz4Z XRpY2 KtRD8kr0Lr bmcvV 3stNH2aoUC uY29k cA5aWr7OPJ 5kb2J qCjIgMCBvY moKPD wvRmlsdGVy L0ZsY GQoMIHyn6F lL0xl mwi1sHAuUG 4+c3R yZWFtCnicK +QCAA NgQReUBR2m c3RyZ WFtCmVuZG9 iagoz OBHye7TmRc w8L0Z yeXDsuj7Jd GF0ZU RhD77vOY3J ZW5nd GggNjk+PnN 0cmVh zSy8oMVK5Y rk0o/ INFAwNFAIS eNyCu EyVDAAQkMF I1MLP XNTBQtDPQs jhZBc Bg9VaTJRjQ h+Rad zNioXf9bBI yAXAL XuLi9ULI7u c3RyZ WFtCmVuZG9 iago0 VFWxd8YkQq w8L1B fR0BCv1UtU 1VzZU 5vbmUvTmFt ZXMgN SAwIFIvVHl wZS9D WMHemV4oD9 91dGx pbmVzIDYgM CBSL1 LkZ3PkCSri MCBSL 1ZpZXdlclB yZWZl jkDcY2OsLS ggMCB YHz9PHZ6oa 2JqCj cgMCBvYmoK PDwvS 7plk0e5NDD gUl0v XCcuOE1KYO dlcy9 Jf5DfuWYeE 0lUWF NeVu1aAmde Pj4KZ W3xp1ZvNqC gMCBv YmoKPDwvQ2 91bnQ bQN2KrKJqy CAxMC AwIFIvTGFz dCAxM CAwIFI+Pgp lbmRv YmoKMTEgMC BvYmo FMl7SV4MKC XNlZC AxMiAwIFJd CmVuZ H0kllfoAiL wIG9i rur5EG7WrX x0ZXI vRmxhdGVEZ WNvZG VwKWDxX5Oj IDI1O TYvTiAzPj5 zdHJl ZM1NdFcasa dUU9k Wh8+9N71Qk hCKlN CsiWUYRY93 SJEuK jEJEErAkAA iNkRU cERRkaYIMi jggKN DkbEiioUBU bHrBB cQ3VZkAChZ SWStG d+8ee/Nm98 f935r b64E2Dbgyq a6AJD 8gwXCTFgJg AyhWB Mv39GWcKyv YAcBD FYIQ7iF1OC zs0IW +OWWtRE06A xsmRP 3A201XmC5+ yrTP4 zBAP+flLlZ IjEAU JiM5/L42Vw ZF8k4 PVecJbdPyZ i2NE3 OMErOIlmCM laTc/ BaI1j9gNSD OfMyh EyTc7AC1sF w5Nwn 9879Qq6MdI AZF+c I+LkyviZjg 3RJhk DGb+SxGXxO NgAok arj7tJXKKi tY5Io SzSh28uM8E jJX/D PL0bYjnDRG 8XOzF ouEiSniBkm XFOGj ZMTi+HPz03 ni8XM XG50uLAuFd iZGVk r0SPMXb/8W RR5bR myIjvYODk4 MG0tb u4o0G6d/Ju S93aW XoR/7hlEH/ jD9ld +mR7SxZOaw dn6h2 2eBDZf6xCF u/2Hz WAvAIqyvnU OfXEe unxeUsTiLG crq9z jPErSw2uyX +jv+p 1Dm5HjmF8R vt3v5 XR061G8zwF xQ143 mwV0pdKZnS 7icPk M5p+H+B8H/ nUeFh O3OR3VU0EH RMumT CBMlrVbyBO IBZlC okJ4k7l1E3 P+pNm 5lona+BHQl lgCpS JeON8mXDeq ESAJe 1Sf4G19D4Z [place]/nN z5DIdQ06y8 L+fVe 0FK7HApU/j mNHRD T9LhTK1Tx4 WgI0I ABFQAPqQBv oAxPA BLbAEbgAD+ ADAkE oiARxYDHgg hSQAU QgFxSAtaAY lIKtY CeoBnWgETS DNnAY sJMv0SX8Lb 6By2A Q6LWZVP7fu CnwCs xAEISFyBAV Uod0I EPIHLKFWJA b5AMF QxFQHJQIJU NCSAI VQOugUqgcq obqoW boW+godBq6 AA1Dt 5VUcEH4PQt HIzAJ psFasBFsBb NgTzg IjoQXwcnwM jgfLo T8lSTyA3rS 7oRPw 9mhDRnUW5O nEYAQ ETqiizARFs JGQpF 4JAkRIauQE qQCaU RopN8cM2jL SJGny FsUBkVFMVB MlAvK YxUP2cXTlZ ahNqO qUQdQnag+1 FXUKG dO6XDHEymc zdHO6 QP3QLvYpFx uRleg f0Yr3MTuAn Q4+hU Yn4ImzLVPH H9MHC YVswKzGbMb 0445h RnGjGGmsVi sOtYc 64oNxXKwYm wxtgp 6OZuRokK6p n2DI+ S9xWG2I5m8 Togrx FXgWnAncFd wE7gZ vBLeEO+MD8 Xz8Mv xZfhGfA9+C D+Suzy OdS5nQssOA QiphL fRX7AD7E4a LeEEk EvWITsRwoo C4hlh IHTK2Bchbn iVRSG YkNimBJCFt Ie0nn XTcEt5hb0j GZA9y MJeN4oLjPn 8h3ye /UaAqWCoEK PAUVi vUKHQqXFF4 pohXN LB6UCmjmN9 YoXhE cUjxqRJeyU iJrcR KBqXAh2ZX0 YbStD PF9YL1AVrS ebNyi /PP2HfMXWA I4kPh UYoo+yhnKG NUhKp FWON27PAHG upZ6j gNQzOmBdBS aaW0b 2iDtCkVioq dSrRK nkqNynEVKR 2hG9E A1Ag4Gqgq+ nX6O1 UvUT0Kqpva 1TbVK 9yw5wtxmly x1UrU 2qRO2Z9fT2 R91NP Gf7g1mr/TQ GmYaY Yi0Kon6Qgk 8XQOb E3FZT6yauy H59zW gCBKXXO5P3 ju0xz IxTeS9pCHt tKq0j in7ITqxn3x naq9Q /oS0tJRRgr NR6Cz Q+ekzmOGCs OTkc6 cLPDdwjT8w f11Jb b6snZ0Z0yU elF6h Uundjk7Lsn s/ST9 Hfq9+lMGOg YhBgU XpUj4UzRES MMUw1 2G/YavjYyN Yow2G HUZPTJWMw4 wzjdu Lo2rTfKqJ6 lm0mB yzRRjyjJNM 91tet zIKhK0QoXb MRsyh 74bxFLzg17 HLdAW ThZCiwaLG0 wS05O Te1onjraMC YMtCy 21FT0LNWqM W22z6 ho3sK5toQ2 daH3H tqHLrJEi35 Pzq62 GJuw9xbuaK PJc37 lj27tQgY2g bse32 5V0289sE6K /wb7X /mUVn5LSon 1h0tH PWeGs7sDTh 8YKY2 8koZuZZ7i2 rXY65 mXH6fGC7Db Y+RcX qymqP7eCa4 nG8/j hTldGrpx7i lzrXa TwBClGh76p Unddd 457g/sDD30 PnkeT n5UpfZtl37 HPZ17 WXiKvDq/Xb Gf2Sv Kmr7Lxp3wM e9CH4 hPlU+1z31f PN9m3 4FlOr65rlf 8pf7R /kP82/xsBW gHcgO aAqUDHwJWB fUGko OKQ6WCCop5 CRcE9 TWWSTLu8qO vzDec U56eGkgIT1 O2h98 QJc9xWzQ+O CQ8Lr wl/GGETURD Rv4C6 YMmClgWvIr 0iyyL fRChWZsA2y xWjE6 Kbo1/HeMeU x0hjr PXNke1L36y TxHXH Y+Wm78fmxp f6LNy 1vRqMOuT06 foi40 Q1is9k3brc vvj4E sUlnCVHEtG JMYkt vb89dHwZmp TSgKW 1L4v0oD8t3 hOeB2 1Oc6Vqyx/n TyS5J gGsGFi6Cm5 ePJni grYK5gZPTv QLnqf 2g2ynud6MB duf9i g8Kk38N5eD mHFUS BGmCfsytTP zMoez jPIAy7FIcY ftXDY qAtI6EOSHo 7K7xT XDp9RDeXHy XjKa4 5ZTk/MmNzr 3SJ5y tjMbTKiO2f 3LJ/J 9879egVrBX dFboF sgwkJ4bcaL +lXQq qWrelfrry5 aPb7G x60ZpBX3hM t/KLQ mEK70aV0rT U+RVt LxdhA4yhhp ixWKR oB6ProgqBh I2ijY OJcc4uuzVM 9LeCU LD37YG9jio +Zuvv wDrDoQH15v krRls ElowC3OwLs h1uvb 3LcdKFcuzy 8f2x6 kaHTPL0cAx pc7l+ o3PQLOHwvH sEuyS 1oZXNldZVC 1tep9 iYc8CI2RQF utZu2 a0by3lxzt4 PHY01 mbXXdk896p YO/Ne r/6zgajhop 9mH05 +s83Oal7a6 36url Ts7z08kY+4 X7pgY sXnq8Vey1v mi1lr XCrpHXyYML By994 i8Pjemltj7 e3lx4 ChySHHn+b+ O31w0 GHe4+wjrR9 Z/hdb Zz8m0WF6rn eOdWV 0iXtjusePh p4tLf Ssxbhu3sg5 x/TPV DrRPC22JrR iaITn 07mn5w+lXX q6enk 00O8M6bxqK k9c60 vvG/wbNDZ8 +d8z5 3p9+w/ed71 /LELz ebHAnTq7Tf kcKlz jX7e3iz9Nz oGHQY 8ucoMnf58D e4Znj b29dr2hoMR va+eu rWr6nOX/JH h61HX t67QhEV9cc v56Fb 2hto5g70D2 FlzF3 052Q7ZgKt6 mvcbf iH4lN6bXZ5 +6j06 8IYHprik0X EnP2X /7G019RQ0L cWEzk GpW8mTtnY4 Jy8/X vh4/EnWk5m nxT8r /9r7zGWUo8 94/DI wFTs1/lz0/ NOvm1 +ov9j/0u5l 73TY9 Y0LGc8iMob 8UX9z 4C3rbf+7mH cTM7n fbl6pW2g+6 PkY9P Nsm1gUg01L 94Tz+ wplbmRzdHJ lYW0K CZ7kt5QfOs EzIDA rn2ZeHsz4U 0NvbG 6hU4DqS9Yn RGV2a PHmL3BfxM3 IZWln aHQgMjkvU3 VidHl lCC0NzQWhU S9GaW y4ERXlSuja dGVEZ WNvZGUvVHl wZS9Y W8CmJEB4W0 dpZHR oLYG8Sb5Og XRzUG PgJ46lrN2j ZW50I SbiKMUvN4I oIDI4 Eu4bmYMpTM 0KeJz twTEBAAAAw qD+qW tWR0CIJABD AB4G+ 2OKjwplbmR zdHJl GN6RHK6li3 JqCjE 2QEKvd5MjT jw8L0 MteJ9mJ2Xh Y2VbL 0aRV0Lwq2J kIDEy PQMcPz2fAU VpZ2h 2CVG1B5Y7Q nR5cG YqGL0oJ9By Rmlsd ULeK8VrGTU lRGVj y5JmN3JdU9 9kZVB bkk9iKOifI 29sdW 1ucyAxODIv Q29sb 3JzIDMvUHJ lZGlj jX6cSSJ9Z3 JpdHN KJLBRr47ms 25lbn QgOD4+L1R5 cGUvW Y2jyiTdoS7 XaWR0 aCAxODIvU0 1hc2s gMTMgMCBSL 0JpdH PLRDKJo52p b25lb gIcHI1FewZ lcnBv xIH2SCJ2oy VlL0x txxb6lIE8C DQ1Pj 4zgFTkWX5E eNrtm wlUVEfWx2/ iJHMm 0bhGWRqatW VzwSW OE+PESEKMi iua0T gaYjQRjQIa AiKgQ NN00/vCqoC ANoLs m1CFfzxOKz FlURF QUUFAQJRFY Kq6ka ErrweKA60H d97R4 +t671Xd+tW 9/3vr QK8pmCXCH4 r5x2e lH1y8ZPLIm eTElf KHr65/12/X xaRXh VENoRzO7Hu 4qOf/ zgZa4uZ4YX M/NQv 08Iq1BwZU3 zc9NW mZV0/Ps75G kRfLF Xz7KJzTaQl Eoj8X yP4LXneDpN z+1fe eZ2uOKdfzE ChRQI lXXMinxg0e uL3+1 3pMp2VzLmU pJZWN Y96/hqbHqw +Gw6S uBL25zarFE ZbxM0 394EMHUHTZ 6hCDy G0oGwovoVS Lc0Cd Neh7zJjH9Y K8rCv 3BjZqbHmam le12v PpeOSQbe7h 7uRl3 hGppTdrGl5 1/+qb Wr/OK1RzDW D0AkN L6BTB8uUy5 ARQp4 UtJGB1DEF6 5ojYe afADFeYQia fzJT4 aYtDLEwmgx I5ID7 /zUZE/JeZU xzo8E QQl7IfTVtt XS6eJ kRd4l99r4K Xja2P AAgFx7pK7O LudVk /Ss5pE8G0c hyRlQ eigcAEJWpq boXUB mT/DCAwYDr N1f/3 NwWIoWbsRY R2shC 0OehkBOYNc 7/2xg LD7WWg2PzC 9tfcd a7Di1TYNVc RL/YJ dzqnyrrXVp COPN/ IVnIyb6z78 SOLOMON+6 UB45nN4oJY EaCgk 5VE6lavs2i p2ujn WOmIuPrlix Gh+uc H8rgCnFKCC QBl+u vv/bJdUaDH k4rIC uxGsEc73b1 h615u KHZBd9yLZj dr60G GIYY5VkFV9 giIFJ ggKDnnq2Z+ zGkJM WQz5R58FMM 5/X+F iL00Qqrr9c 4YUGM uD7XQA4aQ1 UKECH sMETHcGgT6 yKVxP zQlEge68S4 BRXCk l92Csv+yfO ymJoC KO+qwYie9J 4vInz dqjPaEgQYV JlrDF Hsl4xO+0cM 90FqQ jrInUHKBqW TQpxt xY2tvkTHkY SPzCJ jhjqXoLIHh 1rD97 lk/kdPRud0 hNS6z dzzXJw02JX 7vNOg ygOhGWHUiL vOa/N Y34g7JyCiq SwkUl TXL6O130a5 UiCGX 8+5iSZcTlF gwbhF 0DFH25Imzx m+8L9 RKrvh132xE ZtPDU TCLDePtYJL 9B0s8 RhuI8pC6w+ 0/dlF gwIaPbGDCY TBgfr U33D+uoOtZ W298I cfCNNGIZgt I64QW 9VuaVLd7be Wn3Bh SBVTrU2EJ6 w+Xsa 7SPcWx6Xi3 xxCY6 MCj4pm1cZR 2KTL0 mRXjm2r9+K zrvwn EmtJct9fw5 EvF1f IgEphQ/JV5 nKl1M r4+I1S6Rts +UNKq Awno/OKnmN OJN4Y cwnHZR3A9D mdh4j MUJOW3p89N JM40K wwnYO2PBJ5 5OGzN 6wKu3qM3Ql BywRk NkI5bdyGrs 1Wb2k SDtiuoc+Bj mkTjl syvJc9AKe9 TgBID aA3hcfgJN5 p4pMM XN7xolvOM1 dwNJM FSG1eP3Vqo GLRor 98BBRcgOsd klImv sCKaR4D8kP Q6ifx u/FEcIY7F3 XBIA1 0ezPEgrAja 8GuvG ZEu8Yu+Joy IzNsW KLnK3nz6Ec eJJr6 itf31O9Isj ZiMEp juBDMHhedn 3U9BA +XegtlbA+Q PNN09 3aDCABLHyT dvhEC nrN4jptG07 qBGO8 V6JSDtHyW3 aqt9L UsJ0NqwKDn 538a/ lJCltI4bk1 28ZSH NWd2N5nmpG MHYvA t/CIDJzmg+ 8MIdY kx60O+g6Ya iGP6V eV7Mr9CbLs UJFN1 JC9NiuV9ZB Wqcj7 5DHVMTC82G 4xOVL 8nNZBdmcOG glspo vTB8qzrsTC euDDN OvQ8bAtIsV GaCCk r/4Iwa0Rg9 lJJ/A zSYoOB6+0G /DgA1 QjgaoDm2Yx 7fNAD JYGYv1Rshi empGB Eb/uUREEE5 s4YL5 eQlyTCMLI5 8iTo7 +OyZQCG603 tfnEK TuE4+l+Wla l+UiC r+Pitl19Au FXTZu IIgwyV/rosales E3zIE zaLCJ7bQdF YOu1A zipldi65dH kPWCE 3tjZsFZXeR 60LO8 kW2lkYWg+w qod7E iIwkV+d4TD E6MXO 9UNPkVP+5p vfU3R jy7j/5UkcF RCqSb 3J2pmGZEBy uDczk 2MZOYn9AsG wNH9r O+vbk6eQ/h 8hAIb bLbMErQUSN VVxxf +ivlXfrUAx Ck2HB SpMrasznYN q02B5 nC+VEZLtDC nbj+o J/9dI0AVg9 8Cwer AxECstrxDJ cApFx i/ha2AB9NX l9I2E 5hNV09d99j XMHyy Ad/janaImW 8Zk3y yrrRo+IHt/ EMsrr uRz1aVAAsl U6/aL Lfz8sm10h9 FH5xR egJYgG4+h9 SXq/C v2q2oN5TL2 XWa3d HA4GK98onj oVIkJ klaCM5skHN Yf3X/ tzciGCchlc xGOFn i+QJ9TvK8F IGPD1 ChU0DgqVSB 1NiSx Jtw33tipTY pGrt+ 4DgYZMtHJ/ tIzaJ xcKHTW2iF6 UQHEY WhRzYJ0HVL 65ENH uxVMUI05e3 VICzc d9hKxdIzx2 JTWS4 r+tbZNtpFg HjVvo U9TiY5py4f oRkZX 5bbXJ2FtbI yILuW IvwhFekduL pIq8C P+hcYv4Bc1 4mjoM Io+g16YzSo SIo88 dUPO1WEZk+ epnXZ 2OvulAYmIF o0Ttu /0UJbpeuz6 qMzQ2 LI0qcz4ZEI 5Aruq aCnFSgDoxy QnAEc CHaKjQd3hg vh3Ka VW4fa1U0Ah YJ6fk Vmw+EgmGXO yl/tq LrSl6s8iBq LUTZM bZfNp6c+K9 LV2e6 E1hmbWF0HO Fkc22 oXm6BVOWMP 8y9bt 68W7JGR/Gp kYnOA 772AT0cAiK I1+Cp fuJ089rg54 3IgrG sakqQzOV7a 2jrdg OfX416rZKi Alamg syrf65rpiQ vxAit vRuk1FGfLk D0Uh4 Im+3/mCMnM OcYey BEb38b52Jo V8AkY 5ak5yRHlxW dWdUd kFZurnHA4S IMSgk AzeUmz3TyN AiOaN FRGejyIsQm QWldf J3+tqtuxOX C+D9w 99Ynampa+r NnL97 cblq+7q8yI mYIiR EYLbnJCO+v HURZQ pe+qb1ysi2 L+VFb OFcYGldC03 UM+qj n2JwMZc1Hy U71wu wb6sT7c4EK IdD2o rP6Y5DPUFc KLyqt SmfWnFUz5o CXJhG AXVKbeOjwX JVpEX mjAKRh4+ei E1pzX 15RJLlnXKC qBapS A811kZx1+S ccizn kYqczxwkUB xFiBD bEqYnWEf2q +0dvb OxFtHhmTkl 97zQ0 sEgpIfSY5T Y2J3M VFe0ib4xjh 5vk13 w0OJAzMYJh 8DAQ8 KLgovs6xu7 YRoZI fXEvjDV06e FiL5H YcuPSFfXM5 z66/C 2OyS+JCLfO 56X09 CrLMPxatbm Oh6/O WClK1TOiM8 NzQkd NOz6oNVXMR 7i4GG erPEl0OZoV JH+PP Bn6SBq1VHy PI8mT z+Lu8shono lyF9b hOFVrcHyjS ocwD0 Z9dPo5+iX0 iJa66 Ix1VC2WAMX hZZ4e eQtbzOnRBw U1Vh5 JZJVCjAUlR wI7tI QicaIaEmhB xRoSM PgGcnS1GcZ sFiMS OmwSe/3R5P kXo0d oErBjoEkOV Xup3I Qy1FqmyODu y2S3K T77wfWFRtu kPFnl ZQtmPoWcbX G3mNQ UlFZDT8S2e iyHb0 zR+hsc6vr9 2wJlj 4oXAqevxR2 AQkzD x5nJfYc0xJ xC8gT N1MFQW6PqC 0+hYQ Hhlcn1knP7 7yzl3 OmC7Xy7syl tl6mX Fkp0ii4Okc Z1EEB 2RigGykD8a YYQqR O4n0VjikEO oYgZf W5uUZEQYGw rPe6B 03VI1eObes ZiOjx j0IQqy5qU7 eU4TS QtQ1uF5t3D m4POM cU4qmg34bN ngcoU BtsCsb25Qw t/LGf Dn+Ga9MySJ O+CJS p8OlM1w2TV lStyS 9riDdWBZ3X Ip/7X PZodwYJm5U 9yksD XuX2oUbFtw uax6S c/p0sdRN/L FNUXa UjstoyUvxh 4uoDw 1j59Pkz0fh GKyX/ hsRPX+2Nxv k3Wli g2L46fSE6Q CtrHh 79uBIfnf1/ aRftQ eTguiFKbvG eUy8K tKAstCLjsk vwR6Z aHEGYJKnwi ejhRG Ztg+TXkN/a xWC3R GLvYyQNqDL 107Ba IGdP2xsYnB wAJCH F/Paj8TuTx Z1yMh M+ary7Xrl/ LXZ3d lF4s3aoVSQ brBOA yIAZlCvlD6 Tbk0j BypHItGJdK K+sK6 qg2S0kAwir jVK8m PQyvFmIFow 23YJ5 iYj54Vf8a0 Q5goy pZMH1NaS+c 4htff N652h4g6DG 5YA6+ KHzHO20tOB wMY0c KLntgnemkD ZYMKg N6ZnbNNSq7 FlrE9 Q19O1dHnt4 yVpuH firn4VLlVn uy80j rXApuv+73M LrDyz ZKRM/98S7L agN8j ckqplTQmD8 1YHvO MBMwR/akHh 4AxMJ olpQvfD0O0 rhIye RjzRB37WS3 puOmx f5phURu1Jl FAXH/ Vt73TVPKwi q9AXb zuhsEFbceX iIk05 t20v9xSFsF bzQZ5 gzkuKzb/Y9 ra0NK VYn/HGXGl1 1lf/O AvxQrL8JXE Gf0EC I2aKrGZDkY XFR4v llaXbaMM3a DT5Xb E34XbXfzML wLKBr r/c9WUX6MU fISUl oSzUI1RF67 WhvSE gH06URe66P A/6/d cjUEDc0wJY TL/Oz e+/oXJjugs erzcM RYVKIh6dff 97Q/L y6CkZCx7e+ kQVTX QWZtY2PMWD OuIJz Xi8dgVVng7 DGx6Z Wp8BEJ/joq PH+8M 5TsPZUhd6O RApMd B9PFe0g7bK FvmYj 9qPR7SZz8o 1PHku Z74PRap+oz ppq5G F1WF84JFD9 /SigJ IfDm4gYFuo vRP9c azlI+mUX3t 9kfX4 PJbOvzS+0r G1HUt 0DJTcpGptb dlHOT Oo3RZfUJqS research quality assurance analyst+l R5smvW72r/ Hs3z+ NvPC0kuRMh fx4fP 8mbWlV/XuL eWj8H lkeamR6JQ6 v2dQ6 +WfX/lfvo2 ZtsU0 JTiiVeO/SX UJYyA VlC7hKW6hp 9r7Is a+xTNzlnNF 37wH3 4E5t9xdIal Gddar cD1lIC7iQr Q1+Jm qyE9QN3/h0 VO6Ee tTCUTw78K8 rhO97 c0sgQkKSLa LX3jt FjoBVTFjpj 7/M1a IiV+8R0Stp a2pbY C9vWx9mMC+ WvOuw 2bbHEozAn2 r/e8A CPlpUlKBLE jE6p7 D8n07M9o/1 xB8P/ F1WXAlxzfm gnJZe Q+lbco4zFo bOJ1z M31zel/vCq u7VQ8 /bY+yO2/ce lVU2N D9pP9UEUNe ouNt5 XXzTB/UWkV d13Kh 6CEpUnJXos Y6dyG xrf/oWkbeH 5FHf/ Vnz16TOviu B4Dp+ qhfov5zoVG ms0D/ HAaSkunH0L eTtgQ 7N83CLtfP4 CALKb mgwiQLKZEt O8pvS /4gSrW0A8m A552o tOitrmt+sn v8Plv AR8AhhjiEa dHJlY R1MFL2gt3V qCjE1 OJUxi6NpCa w8L0d ei7CzUAwoU y9Ucm Hzu5QbocRq Y3kvS EJ9seLqD4b gZmFs c3FmK8GcYA EgMCB ESu6zX03za GVudH NbMiAwIFIg MTYgM CBSIDMgMCB SXS9U jNVpP7RwW5 UvUmV ks7LuZ9GqU DwvQ2 7wf8CUlWFl ZTw8L 8YsUcX1lMA SR0Ig MTEgMCBSPj 4vUHJ kF9QrgCGgY 1BERi IrLBT4hROq SW1hZ 7MBGN6WaRA nZUMg F9mvEBkzQV 0vRm9 rsPs5C6bfX m8gMT ysYHSQK4sp bHYgM CbhURHOJ3d pMCAx XWWxCs0OAZ 9iIDE 8JWMwUj4+L 1hPYm eyW5J4DP64 ZzEwN tU7ZqRvTGX wIFIv yJ7xBPOoPS EgMTQ gMCBSPj4+P i9QYX JlbnQgOSAw IFIvT KNnhSOBy5a bMCAw WDHkAmP2EO JdPj4 XJA5kz6CrL jkgMC BvYmoKPDwv S2lkc 1sxNSAwIFJ dL1R5 cGUvUGFnZX MvQ29 3hbKmVE2KN XJlbn QgNyAwIFI+ Pgplb mRvYmoKMjA gMCBv YmoKPDwvR3 JvdXA 8PT1YM6YtG W5zcG YuDZ7leV5P U1svS UNDQmFzZWQ gMTIg MCBSXT4+L1 N1YnR 4pWOtOt6bw S9GaW l0MQOqLaco dGVEZ WNvZGUvTWF 0cml4 WzEgMCAwID EgMCA qHW8QlCQyI 1hPYm gsA9DhYs3n bVR5c OHtZV1PVNP vdXJj BQP2SA8Gmq 9jU2V 9Ai7VIMIrF GV4dC 9JbWFnZUMv SW1hZ 0GOH7srKAs lSV0v HJ0zrcWfyZ w8L2l eTXQ9QFgoN DE0ID AgUj4+Pj4v TGVuZ 4YyWTMyZ2C Cb3hb SBPhIQC5Uw AyOV0 +XcE2dmPmw Qp4nN BVbGS2TZBv NFRwy QcAFBADCgp lbmRz aTJhQX1YKC 5kb2J xYyY7MNCjp 2JqCj c5G7BjrXLx ci9Gb QK8OLItT53 kZS9M TF7fvTipTF QzND4 +y1LgLTRcA nicvV uTw4w1MW2a r9DMv ZiZYiTZkq3 2iQJt aBknG33i2o 43N65 HortRZpW2s 39/a4 ExP6BE3P9j k1iyJ D021282fhD 6hohP EYZfKpArbI Y8ym3 bIlZ0GTd95 ieCOR YOGmbotzfF cDWYI Ere2GVGihO BxIGh 2IJDiN5T3+ YJ9W7 khwzB1+DRz MOoK2 zHcTEmKFj9 ZU1mv 7zr/I2CX98 gNAre pAD9zmiDm1 JDmXC KO90RlTQ0d gNwdR lIq0ViQQXa E1+t3 4+ibJfmHdS lno+s Dnu1gqczH1 R53K8 FOIQR2/61C Hc3A+ 1AVOZ8oHjr jQyTf Ds911ggMxY axog/ i2UXjMimK6 dvNWD /bjb+rDvzW mjmsL ZQnKrXH7Mk hYl8h OakPP5I1gD jTZ6l MaAxh6Q915 Eutr5 3QXBTxFPW8 jY2DG 8/NG1A5/LV CbEZq eZrj/o9Ilh DxmLc mkqieXsBxi B04Wb bHDkunOvzY xBuCj cwfMFq4mJ8 h24Ry qjbbQxaK/j PtwNI DwJ+BuPbad NZw4s DtBXWTMqF9 st9b1 rKjy9qjcTP H7c4V jvTdhPL2yA ky4tw cmSnk7QBVq X1GQM lqCXGcDwf3 PRnn0 k6xyQVP/uB mx1xO YD5t2Omo3V dFZkP Z3YjuUJ6wD e3pjs a1uvIKXovn GMAZ5 0OIH4jYFuH uCvcI 0vW05aE+2G Yy14Q r2S9a/sMaY NcBs+ xZy1N0G4MA GgKKi e2x+v1EQCL E1xuA 1XLUDuMTl0 zyKLd SpZCJsqg/s fpttJ /mArpXO9Sb TrM48 uIGV0V0IWY RyR8z mN36CkYR1b Glbjr LKmNtFR7Ja 3Ije4 uopY9K5DQI ofpoq ygECTdSUJ1 aDx3E SsNfKMj7qp IZDuz zsZMTTPjSb 6UpVO 4YLaP1dtTY OT6Nr 02CBsZxeuC RlNO1 okMt/IoENE 5045F 2biR/UmYhk +yGuC rTIu4X2hfq 6b1YP kue+iYk9/x ug5kq d4Llds7zui E8A5s XRNoMo6OwX BJ7Pv C0zOw+t0zd /v1MF VPoJTarvAx 4agLS AKSm0uiFM/ ZxlEc Nd3YQdkyIZ 8q1Wo MsU5AKmAYK La769 oEFFAXwKgQ aIUYx BcQCbUFSnR v/0j0 6P3/BC1h6W f0O0o tN7z7n56PQ 4PxGJ tln7qQz9tt gaipz 2heGPiTNjL HOxgE sxfRykTJ2j mbk+p FpGlhu03ig ZO5xO YwEYoRVoub bkuLq 0Veao54K+x P04q6 lw0NM3Y1hc Qg+t1 1lv4Y/7MEm wgkJw yQOKgk0LGL 1atzl nb5BQQfZAn fXCv3 B/xR8ALjoz U/Lev kSr+1RLxsU x6VNK 8R2Nw06nXM rS/jw cicdupSpbX zqBeM X3W/pRXtqj pmrcB no/q2GRoP4 EwT8X nv035PyY3/ hYCWN vRV+HdlhXq wvnSQ D+CdM47DDF 6gvjT lkFIB3crUP 7OPt7 OJqZHTovdz NyjcH l4Ujmn89hG HOgyJ 1KOiown6SC 4KHoo qDmZ9trN5B pdP2u 7f6inydIf6 hP7/u eJQITArDX5 VqTDG 4ciGIkDPKJ VGjfd BVO4yImZbK JDLYK tabWfk6OzZ AuurX T857Aq1I2D OyyPV fWd22XJbBM lRud2 jDoFmv7lWo 0rV3i OZ8PydY3Gu HOZ6I 5f9NdaNwTR qcqHE J4h8+GpUeD Fzpgf cpuk7tSG11 L3lVd 9ll9s8wIdt LXKnD kMhr9udd1m LKIbS i6oZyXtRMd y5Jmz rZmwWK7gvt d0868 LDkBnneXHa MXzMw m4Xt6fBZ0m JctZ/ o/1u1GfIJJ kyRbL GYQg2tqCXD Lk4PC OPnf30dYLS QC0JT TQmLqg7Ue/ cKIF7 4lEFKhcR0f JS9JS Wl7+vKmtfG vctlC DUc7Gtj6g+ msxwh IuQQkQIw6O k6bw7 9M+cevhCVf Ev0x+ 5ewplbmRzd HJlYW 7JIZ0sb4Cp CjE5I KBnw0YkHbg 8L05h bWUvSGVPYi 9TdWJ 6hRYzZ1F9q GUxL1 L1fGHkXk2v dC9CY BFaTm7baR1 IZWx2 ZJAvY4QxP1 JsaXF 3II0YvaAwY GluZy 2EpW0OqwKw RW5jb 2Rpbmc+Pgp lbmRv YmoKMTcgMC BvYmo KPDwvTmFtZ S9IZU JmS4R3OvN8 cGUvV HlwZTEvVHl wZS9G e734J4Ccs7 VGb25 6B6sbzXMij GljYS 5Uo4unV1Vz Y29ka I3zF2hklfN uc2lF bmNvZGluZz 4+CmV eNV1bmbmbD CAwIG 2thwi0VJ0P YW1lL 9hhzGCsI6Q idHlw WJ3QzIUiUQ 9UeXB oL8OqoeGcT mFzZU ZvbnQvSGVs dmV0a PBdF0AdM25 kaW5n F0fdzoJhu8 lFbmN vZGluZz4+C mVuZG 3pape2DKTe b2JqC ll0Oq4IPY4 kb2Jq CjUgMCBvYm oKPDw vRGVzdHMgM jEgMC BKYt4OOY3k b2JqC pWcZEYov2C qCjw8 L9SaMRUoIV BSL1h AXdXpEwX0B TAgbn VsbF0+Pgpl bmRvY moKMjMgMCB vYmoK PDwvRFsxNS AwIFI lNBjjQIZ7Z DcwOC BudWxsXT4+ CmVuZ B6jtknjOSB wIG9i gvg0EP0EBk E1IDA rFo4YWMlyK zYgNj V4EX99kAqd Pj4KZ K7ws7NkJcI xIDAg a5LySgg5H8 5hbWV vKajrK6CpM jhiMG CbVZWpZW21 ZmZiL ThmNmUtOWU 0NDY3 IIa6TBvwUM AyMiA wIFIoTUtNR y1QaH jkxTTbTI2a Q29uc 3VsdCkgMjM gMCBS SD79P1QkXY JiMi1 hHZV0FEItI DctOD B6GT03ZDGe NzYwY 2ZlMTcpIDI 0IDAg Ul0+Pgplbm RvYmo KMTAgMCBvY moKPD wvRGVzdChN S01HL YYrcBUxG9s hbiBD w34kwYj2ZA 9QYXJ lbnQgNiAwI FIvVG h3jID6WqTy ZjAwN UGcPSU3DFR 3OTAw YxMcFFC8AU A2MzA wNjkwMDYxM DA2ZT AwMjAwMDQz MDA2Z jAwNmUwMDc zMDA3 NTAwNmMwMD c0Pj4 +DzDbIM8ap goyNS DzUU9dzvb3 PC9Nb 2REYXRlKEQ 6MjAy MAX3EVChJg EyMzA tMDQnMDAnK S9Dcm VhdGlvbkRh dGUoR DoyMDIwMDQ xMDEy MTIzMCstNC cwMCc xC5Wzd3T0T 2VyKE liZXggUERG IENyZ RI0l2SzDT5 5LjAu MTUvODQzOC BbSkF KVD8XO2X0H G1vZG lmaWVkIHVz aW5nI FaXOEt8BVH uMS43 SBY5CZXRS6 hUKT4 +JrKpIL3qz gp4cm VmCjAgMjYK MDAwM DAwMDAwMCA 2NTUz NSBmIAowMD AwMDA jXKA8QXMiT DAwIG 4gCjAwMDAw MDAxM DMgMDAwMDA gbiAK MDAwMDAwMD E3OSA wMDAwMCBuI AowMD AwMDAwMzE0 IDAwM CZeIZ1yItC wMDAw MTAyNjEgMD AwMDA gbiAKMDAwM DAwMD R4VNZpLLIr MCBuI AowMDAwMDA wNDI3 IDAwMDAwIG 4gCjA wMDAwMTAyN DEgMD AwMDAgbiAK MDAwM DRmXUA2QHE wMDAw MCBuIAowMD AwMDE gJWa4XBLeJ DAwIG 4gCjAwMDAw MDA1N DMgMDAwMDA gbiAK MDAwMDAwMD U3OCA wMDAwMCBuI AowMD AwMDAzMjQ3 IDAwM VOkAV3sAnQ wMDAw VFE0RwQdED AwMDA gbiAKMDAwM DAwNz czOCAwMDAw MCBuI AowMDAwMDA 4NDI4 IDAwMDAwIG 4gCjA wMDAwMTAwM zggMD AwMDAgbiAK MDAwM WSgTVV3DtA wMDAw MCBuIAowMD AwMDA 5OTMxIDAwM DAwIG 4gCjAwMDAw MDgxM zkgMDAwMDA gbiAK MDAwMDAxMD QzNSA wMDAwMCBuI AowMD AwMDEwMjk0 IDAwM HYoAL0cLsO wMDAw MTAzNDEgMD AwMDA gbiAKMDAwM DAxMD K6YCAoHAOt MCBuI AowMDAwMDE wNzMw IDAwMDAwIG 4gCnR yYWlsZXIKP DwvSW 5mbyAyNSAw IFIvS UFmFwscU9S 4MzJm GhGtYQO4IP ExNjl yRpX4XZJhV 2VhYz AxLr52PlQp YTM2N pX3CEXbObF mYjMz KALvK7PyR1 UzYTA 4ODM+XS9Sb 290ID TjNOEMO0Bs emUgM jY+PgpzdGF ydHhy YVIYTUV1YO AKJSV FT0YK ID Date Data Source [id number] 08/12/2019 03:36:00 PM EDT [facility] Name Value Range Interpretation Code Description Data Migdalia rce(s) Supporting Document(s ) CD:[id number] Negative [address] Test Performed by: [facility] Department of Pathology and Laboratory [address] [place] [address] GRBI# [id number] Colten Guzman MD, Director CD:[id number] [facility]ly [facility], [facility] ID Date Data Source [id number] 08/04/2019 12:22:00 AM EDT [facility] [id number]} [facility] Patient: BG DUTTA S Age: 63 [...] put in pt chart Ebony Pettit [address] [place] [address] [id number] PPOAPRIL [id number] signed by Layton Allen MD 08/04/2019 00:22 EDTElectronically signed by Abdoulaye Rodriguez 08/03/2019 17:54 EDTElectronically signed by DanAbdoulaye coleman 08/03/2019 18:11 EDT Name Value Range Interpretation Code Description Data Migdalia rce(s) Supporting Document(s ) ID Date Data Source [id number] 08/03/2019 11:46:00 AM EDT [facility] Patient Name: LUZMARIA INDIRA SMRN: [id number] General DiagnosticACCESSION EXAM DATE/TIME PROCEDURE ORDERING PROVIDER [id number] 08/03/2019 11:03 EDT XR Chest Portable Sherrell [...] Supporting Document(s ) ID Date Data Source [id number] 08/04/2019 10:55:00 AM EDT [facility] Name Value Range Interpretation Code Description Data Migdalia rce(s) Supporting Document(s ) Hep B Core [facility] Test performed by:[facility] [place], [place] [address]YdowwwppCalderon Land M.D. ID Date Data Source [id number] 08/04/2019 08:51:00 AM EDT [facility] Name Value Range Interpretation Code Description Data Migdalia rce(s) Supporting Document(s ) Hep B Core [facility] Test performed by:[facility] [place], [place] [address]RlugrbxuCalderon Land M.D. ID Date Data Source [id number] 08/03/2019 05:07:00 PM EDT [facility] Name Value Range Interpretation Description Data Sup porting Code Source(s) Document(s ) Hep C Ab. Non Reactive NO [facility] Test performed on the Siemens ADVIA Cent aur XP using a diagnostic immunoassay. ID Date Data Source [id number] 08/03/2019 05:06:00 PM EDT [facility] Name Value Range Interpretation Description Data Sup porting Code Source(s) Document(s ) HIV Non Reactive NA [facility] 1/2,p24 [facility] This test was performed on the Siemens A EBR Systemsia Centaur XP using a two-wash antigen/antibody sandwich [...] permitted by law ID Date Data Source [id number] 08/03/2019 12:36:00 PM EDT [facility] Name Value Range Interpretation Description Data Sup porting Code Source(s) Document(s ) Glucose Lvl 121 65-99 [place] mg/dL [facility] BUN 16.1 6.0-20.0 [place] mg/dL [facility] Creatinine 0.73 0.40-1.0 [place] mg/dL 0 [facility] BUN/Creat 22.1 7.0-29.0 [place] Ratio ratio [facility] Sodium Lvl 138 136-145 [place] mmol/L [facility] Potassium Lvl 4.2 3.5-5.1 [place] mmol/L [facility] Chloride 103 98-107 [place] mmol/L [facility] CO2 25 23-29 [place] mmol/L [facility] AGAP 10 5-15 NO [facility] Calcium Lvl 9.4 8.6-10.0 [place] mg/dL [facility] Total Protein 6.9 6.0-8.3 [place] gm/dL [facility] Albumin Lvl 4.5 3.5-5.0 [place] gm/dL [facility] Glob 2.4 2.0-4.5 [place] gm/dL [facility] A/G Ratio 1.9 1.0-2.2 [place] ratio [facility] Bili Total 0.5 0.3-1.2 [place] mg/dL [facility] Alk Phos 63 IU/L 38-126 NO [facility] AST 19 IU/L 15-41 NO [facility] ALT 14 IU/L 7-40 NO [facility] ID Date Data Source [id number] 08/03/2019 12:29:00 PM EDT [facility] Added by Discern Rule [email or web address] Name Value Range Interpretation Code Description Data Migdalia rce(s) Supporting Document(s ) eGFR-AA >90 >=60 NO [facility] mL/min/1.[address] [place] [address] The CKD-EPI equation for non- Breann rican [...] Mild decrease* G3a 45-59 Mild to moderate [id number] 30-44 Moderate to s evere decreaseG4 15-29 Severe decreaseG5 14 or less Kidney fa ilure eGFR-ELIZABETH 81 mL/min/1.73m2 >=60 NO [facility] The CKD-EPI equation for non- [...] Mild decrease* G3a 45-59 Mild to moderate [id number] 30-44 Moderate to s evere decreaseG4 15-29 Severe decreaseG5 14 or less Kidney fa ilure ID Date Data Source [id number] 08/03/2019 12:24:00 PM EDT [facility] Name Value Range Interpretation Description Data Sup porting Code Source(s) Document(s ) Hep C Ab. Non Reactive NO [facility] Test performed on the Siemens ADVIA Cent aur XP using a diagnostic immunoassay. ID Date Data Source [id number] 08/03/2019 12:21:00 PM EDT [facility] Name Value Range Interpretation Description Data Sup porting Code Source(s) Document(s ) HIV Non Reactive NA [facility] 1/2,p24 [facility] This test was performed on the Siemens A EBR [employer] Centaur XP using a two-wash antigen/antibody sandwich [...] permitted by law ID Date Data Source [id number] 08/03/2019 11:50:00 AM EDT [facility] Name Value Range Interpretation Code Description Data Migdalia rce(s) Supporting Document(s ) TSH 1.00 0.34-5.60 NO [facility] mcIU/mL [facility] ID Date Data Source [id number] 08/03/2019 11:36:00 AM EDT [facility] Name Value Range Interpretation Description Data Sup porting Code Source(s) Document(s ) Salicylate Lvl <4.0 4.0-29.9 [place] mg/dL [facility] ID Date Data Source [id number] 08/03/2019 11:36:00 AM EDT [facility] Name Value Range Interpretation Code Description Data Migdalia rce(s) Supporting Document(s ) Ethanol Lvl 0-9 NA [facility] Result created by Discern rule. ID Date Data Source [id number] 08/03/2019 11:35:00 AM EDT [facility] Name Value Range Interpretation Description Data Sup porting Code Source(s) Document(s ) Acetaminoph <10.0 10.0-30. LO [place] Lvl mcg/mL 0 [facility] ID Date Data Source [id number] 08/03/2019 11:35:00 AM EDT [facility] Name Value Range Interpretation Code Description Data Supporting Source(s) Document(s ) Troponin- <0.03 <=0.05 NO [place] I ng/mL [facility] ID Date Data Source [id number] 08/03/2019 11:32:00 AM EDT [facility] Name Value Range Interpretation Code Description Data Migdalia rce(s) Supporting Document(s ) Ammonia 27 mcmol/L 11-35 NO [place] [facility] ID Date Data Source [id number] 08/03/2019 11:02:00 AM EDT [facility] Name Value Range Interpretation Description Data Sup porting Code Source(s) Document(s ) Neut Auto 75.7 % 50.0-80.0 NO [facility] Lymph Auto 12.7 % 14.0-44.0 LO [facility] [place] Auto 10.5 % 0.0-12.0 NO [facility] Eos Auto 0.5 % 0.0-7.0 NO [facility] Baso Auto 0.6 % 0.0-3.0 NO [facility] Neut 3.9 2.0-8.4 NO [place] Absolute x10(3)/[facility] Lymph 0.7 0.6-4.8 NO [place] Absolute x10(3)/[facility] Attala 0.5 0.0-1.1 NO [place] Absolute x10(3)/[facility] Eos Absolute 0.0 0.0-0.5 NO [place] x10(3)/[facility] Baso 0.0 0.0-0.3 NO [place] Absolute x10(3)/[facility] ID Date Data Source [id number] 08/03/2019 11:02:00 AM EDT [facility] Name Value Range Interpretation Description Data Sup porting Code Source(s) Document(s ) WBC 5.1 4.0-10.5 NO [place] x10(3)/[facility] RBC 4.05 3.80-5.20 NO [place] x10(6)/[facility] Hgb 12.9 11.4-15.1 NO [place] gm/dL [facility] Hct 37.7 % 36.0-46.0 NO [facility] MCV 93 fL 80-98 NO [facility] MCH 32.0 pg 26.0-34.0 NO [facility] MCHC 34.3 32.0-36.0 NO No gm/dL [facility] RDW 13.4 % 11.0-15.0 NO [facility] Platelet 266 150-400 NO No x10(3)/[facility] MPV 8.5 fL 8.5-13.0 NO [facility] ID Date Data Source [id number] 08/03/2019 11:32:00 AM EDT [facility] Name Value Range Interpretation Description Data Sup porting Code Source(s) Document(s ) UA Color Yellow NO [facility] UA Appear Clear NO [facility] UA pH 5.0-8.0 NO [facility] UA Spec Grav 1.015 1.005-1.030 NO [facility] UA Glucose Negative NO [facility] UA Ketones Negative NO [facility] UA Urobilinogen 0.2-1.0 NO [facility] UA Bili Negative NO [facility] UA Blood Negative NO [facility] UA Protein Negative NO [facility] UA Nitrite Negative NO [facility] UA Leuk Est Negative NO [facility] ID Date Data Source [id number] 08/03/2019 11:31:00 AM EDT [facility] Name Value Range Interpretation Description Data Sup porting Code Source(s) Document(s ) U Amph Not Detected NA [facility] Result created by Instant BioScan.Substance of abuse cutoff levels:Amphetamine...................... .....1000 ng/mlBarbiturate........................ ....200 ng/mlBenzodiazepine..................... ....200 ng/mlCannibinoid........................ .....50 ng/mlCocaine............................ ....300 ng/mlOpiates............................ ....300 ng/mlPhencyclidine (PCP).....................25 ng/mlMethad one..............................300 ng/mlPropoxyphene....................... ....300 ng/mlPlease note: This is a urine screening test only.Positive results are not confirmed by a secondary method.Unconfirmed screening results are to be used only for medical purposes. U Yasemin Scr Not Detected NA [facility] Result created by Instant BioScan. U Benzodia Scr Not Detected AB [facility] Result created by Antavo rule. U Cannab Scr Not Detected [facility] Result created by Antavo rule. U Cocaine Scr Not Detected NA [facility] Result created by Antavo rule. U Opiate Scr Not Detected NA [facility] Result created by Discern rule. U Phencyclidine Not Detected NA [facility] Result created by Discern rule. U Propoxyphene Not Detected NA [facility] Result created by Discern rule. U Methadone Not Detected NA [facility] Result created by Discern rule. ID Date Data Source [id number] 08/03/2019 10:20:00 AM EDT [facility] Patient Name: LUZMARIA AUGUST SMRN: [id number] Computed TomographyACCESSION EXAM DATE/TIME PROCEDURE ORDERING PROVIDER [id number] 08/03/2019 10:[address] Head WO Zen [...] Supporting Document(s ) ID Date Data Source [id number] 08/07/2019 09:32:00 AM EDT [facility] Zurdo Nolen [id number] Patient: BG DUTTA S Age: 63 years [...] Family/ Social History Medical history: ResolvedFrozen shoulder ([id number]): Resolved.. Surgical history: removal of growth in [...] 75.7 % Lymph Auto 12.7 % LOW [place] Auto 10.5 % Eos Auto 0.5 % B aso Auto 0.6 % Neut Absolute 3.9 x10(3)/mcL Lymph Absolute 0.7 x10(3)/mc L [place] Absolute 0.5 x10(3)/mcL Eos Absolute 0.0 x10(3)/mcL [...] psych admission. Will be alejandro sferred to [place]. I personally saw and examined the patient. [...] n pt chart Ebony snyder [address] [place] [address] [id number] Cross Saline PPOAPRIL Z [id number] signed by Sherrell Eduardo DO 08/07/2019 09:32 EDTElectronically signed by Zen Edwards 08/03/2019 15:44 EDTElectr onically signed by Zen Edwards 08/03/2019 15:45 EDT Name Value Range Interpretation Code Description Data Migdalia rce(s) Supporting Document(s ) ID Date Data Source [id number] 08/03/2019 09:37:00 AM EDT [facility] [id number]} [facility] Patient: BG DUTTA S Age: 63 years [...] Supporting Document(s ) ID Date Data Source [id number] 07/24/2019 01:44:00 PM EDT [facility] Name Value Range Interpretation Description Data Sup porting Code Source(s) Document(s ) Lacosamide Lvl [facility] Reference Range:Expected concentrations of lacosamide in patientsreceiving recommended daily dosages: Up to15.0 mcg /mL.Toxic range not establishedThis test was developed and its analytical performance characteristics have been determined by [employer] Manny Martinez. I t has not been cleared or approved by the USFood and Drug Administration. This ass ay has been validatedpursuant to the CLIA regulations and is used for clinicalpurp oses.This test performed by:[facility] [id number] [place] [address] ID Date Data Source [id number] 07/22/2019 03:27:00 AM EDT [facility] Name Value Range Interpretation Description Data Sup porting Code Source(s) Document(s ) Zonisamide Lvl 10.0-40.0 [facility] This test was developed and its analytic al performancecharacteristics have been determined by [facility] Kiarra yared Martinez. It has not been cleared or approved by the USFood and Drug Administ ration. This assay has been validatedpursuant to the CLIA regulations and is used for clinicalpurposes.This test performed by:[facility] [address] [place] [address] ID Date Data Source [id number] 07/19/2019 08:37:00 AM EDT [facility] Name Value Range Interpretation Code Description Data Migdalia rce(s) Supporting Document(s ) MMA Qnt 87-318 [facility] Test performed by:BoxbeAxel jewell [facility] [place] [id number] Land M.D. Homocysteine Lvl <10.4 [facility] Homocysteine is increased by functional deficiency of folateor vitamin B12. Testing for methylmalonic aciddifferentiates bet ween these deficiencies. Other causesof increased homocysteine include renal charoltte lure, folateantagonists such as methotrexate and phenytoin, andexposure to nitrous ox walker.Nyla uPri, et al. Karol Grinder [employer] Med. 1999;131(5):331-9.Test performed by:[place], [place] [address]ZvdeksgmCalderon Land M.D. ID Date Data Source [id number] 07/16/2019 10:53:00 AM EDT [facility] Name Value Range Interpretation Description Data Sup porting Code Source(s) Document(s ) Hemoglobin A1C 5.6 % <=5.6 NO [facility] 5.7-6.4% Pre-diabetes> 6.4% Diagno stic for diabetes(Summarized from [place] [employer] 2018 Standards)This test was performed using the [employer] Hb 9210 Analyzer utilizing Boronate Affinity. ID Date Data Source [id number] 07/16/2019 02:28:00 AM EDT [facility] Name Value Range Interpretation Description Data Sup porting Code Source(s) Document(s ) Vitamin D 65.4 30.0-100. NO [facility], Total ng/mL 0 [facility] Vitamin D is an immunoassay performed on the [employer] XP ID Date Data Source [id number] 07/15/2019 10:48:00 PM EDT [facility] Name Value Range Interpretation Description Data Sup porting Code Source(s) Document(s ) Vitamin B12 507 pg/mL 180-914 [facility] ID Date Data Source [id number] 07/15/2019 10:15:00 PM EDT [facility] Name Value Range Interpretation Description Data Sup porting Code Source(s) Document(s ) Neut Auto 77.4 % 50.0-80.0 NO [facility] Lymph Auto 14.3 % 14.0-44.0 NO [facility] [place] Auto 6.6 % 0.0-12.0 NO [facility] Eos Auto 1.0 % 0.0-7.0 NO [facility] Baso Auto 0.7 % 0.0-3.0 NO [facility] Neut 6.5 2.0-8.4 NO [place] Absolute x10(3)/[facility] Lymph 1.2 0.6-4.8 NO [place] Absolute x10(3)/[facility] Attala 0.6 0.0-1.1 NO [place] Absolute x10(3)/[facility] Eos Absolute 0.1 0.0-0.5 NO [place] x10(3)/[facility] Baso 0.1 0.0-0.3 NO [place] Absolute x10(3)/[facility] ID Date Data Source [id number] 07/15/2019 10:15:00 PM EDT [facility] Name Value Range Interpretation Description Data Sup porting Code Source(s) Document(s ) WBC 8.4 4.0-10.5 NO [place] x10(3)/[facility] RBC 4.21 3.80-5.20 NO [place] x10(6)/[facility] Hgb 13.7 11.4-15.1 NO [place] gm/dL [facility] Hct 39.4 % 36.0-46.0 NO [facility] MCV 94 fL 80-98 NO [facility] MCH 32.5 pg 26.0-34.0 NO [facility] MCHC 34.7 32.0-36.0 NO [place] gm/dL [facility] RDW 13.7 % 11.0-15.0 NO [facility] Platelet 263 150-400 NO [place] x10(3)/mc [facility] MPV 9.7 fL 8.5-13.0 NO [facility] ID Date Data Source [id number] 07/15/2019 10:00:00 PM EDT No [facility] Name Value Range Interpretation Description Data Sup porting Code Source(s) Document(s ) Glucose Lvl 95 mg/dL 65-99 NO [facility] BUN 23.1 6.0-20.0 [place] mg/dL [facility] Creatinine 0.84 0.40-1.0 NO [place] mg/dL 0 [facility] BUN/Creat 27.5 7.0-29.0 NO [place] Ratio ratio [facility] Sodium Lvl 140 136-145 NO [place] mmol/L [facility] Potassium Lvl 3.9 3.5-5.1 NO [place] mmol/L [facility] Chloride 107 98-107 NO [place] mmol/L [facility] CO2 22 23-29 LO [place] mmol/L [facility] AGAP 11 5-15 NO [facility] Calcium Lvl 9.8 8.6-10.0 NO [place] mg/dL [facility] Total Protein 6.5 6.0-8.3 NO [place] gm/dL [facility] Albumin Lvl 4.6 3.5-5.0 NO [place] gm/dL [facility] Glob 1.9 2.0-4.5 LO [place] gm/dL [facility] A/G Ratio 2.4 1.0-2.2 HI [place] ratio [facility] Bili Total 0.5 0.3-1.2 NO [place] mg/dL [facility] Alk Phos 86 IU/L 38-126 [facility] AST 17 IU/L 15-41 NO [facility] ALT 14 IU/L 7-40 NO [facility] ID Date Data Source [id number] 07/15/2019 09:54:00 PM EDT [facility] Added by Discern Rule [id number] Name Value Range Interpretation Code Description Data Migdalia rce(s) Supporting Document(s ) eGFR-AA 84 >=60 NO [facility] mL/min/1.[address] The CKD-EPI equation for non- Breann [...] Mild decrease* G3a 45-59 Mild to moderate [id number] 30-44 Moderate to s evere decreaseG4 15-29 Severe decreaseG5 14 or less Kidney fa ilure eGFR-ELIZABETH 69 mL/min/1.73m2 >=60 NO [facility] The CKD-EPI equation for non- [...] Mild decrease* G3a 45-59 Mild to moderate [id number] 30-44 Moderate to s evere decreaseG4 15-29 Severe decreaseG5 14 or less Kidney fa ilure Procedure Social History Code Duration Value Status Description Data Source(s ) Smoking 08/03/2019 Never smoked completed Never smoked No [facility] - 12:26:18 PM EDT tobacco tobacco (finding) [facility] (finding) Center Smoking 08/03/2019 Never smoked completed Never smoked [facility] Jacobs [facility] - 12:26:18 PM EDT tobacco tobacco (finding) [facility] (finding) Center Smoking 08/03/2019 Never smoked completed Never smoked [facility] Reynaldo alth - 12:26:18 PM EDT tobacco tobacco (finding) [facility] (finding) [facility] Center Smoking 08/03/2019 Never smoked completed Never smoked [place] Jacobs [facility] - 12:26:18 PM EDT tobacco tobacco (finding) [facility] (finding) [facility] Vital Signs ID Date Data Source UNK Name Value Range Interpretation Code Description Data Source(s) Diastolic blood 82 mm[Hg] 60-90 mmHg Normal (applies to 82 mm[Hg] [email or web address] pressure non-numeric results) - [facility] Systolic blood 124 mm[Hg] 90-130 mmHg Normal (applies to 124 mm[Hg] [email or web address] pressure non-numeric results) - [facility] Oxygen therapy [place] [facility] [Minimum Data - [place] Set] [facility] Center Oxygen saturation 100 % 94-100 % Normal (applies to 100 % [employer] in Blood non-numeric results) - [facility] Postductal by Hospital Pulse oximetry Center Diastolic blood 62 mm[Hg] 60-90 mmHg Normal (applies to 62 mm[Hg] [email or web address] pressure non-numeric results) - [facility] Systolic blood 116 mm[Hg] 90-130 mmHg Normal (applies to 116 mm[Hg] [email or web address] pressure non-numeric results) - [facility] Respiratory rate 18 br/min 14-20 Normal (applies to 18 br/min [place] [facility] br/min non-numeric results) - [facility] Heart rate 64 bpm 60-100 bpm Normal (applies to 64 bpm [place] [facility] non-numeric results) - [facility] Oral temperature 97.1 [degF] 96.4-99.1 Normal (applies to 97.1 [degF ] [place] DegF non-numeric results) - [facility] Oxygen therapy [place] alth [Minimum Data - [place] Set] [facility] Oxygen saturation 100 % 94-100 % Normal (applies to 100 % [place] [facility] in Blood non-numeric results) - [facility] [place] Diastolic blood 71 mm[Hg] 60-90 mmHg Normal (applies to 71 mm[Hg] [facility] pressure non-numeric results) - [facility] Systolic blood 109 mm[Hg] 90-130 mmHg Normal (applies to 109 mm[Hg] [facility] pressure non-numeric results) - [facility] Respiratory rate 18 br/min 14-20 Normal (applies to 18 br/min [place] [facility] br/min non-numeric results) - [facility] Heart rate 67 bpm 60-100 bpm Normal (applies to 67 bpm [facility] non-numeric results) - [facility] Oral temperature 97.5 [degF] 96.4-99.1 Normal (applies to 97.5 [degF ] [facility] DegF non-numeric results) - [facility] Respiratory rate 18 br/min 14-20 Normal (applies to 18 br/min [facility] br/min non-numeric results) - [facility] Oral temperature 97.7 [degF] 96.4-99.1 Normal (applies to 97.7 [degF ] [facility] DegF non-numeric results) - [facility] Oxygen saturation 97 % 94-100 % Normal (applies to 97 % [facility] in Blood non-numeric results) - [facility] Postductal by [place] Pulse oximetry [facility] nt Heart rate 62 bpm 60-100 bpm Normal (applies to 62 bpm [facility] non-numeric results) - [facility] Diastolic blood 74 mm[Hg] 60-90 mmHg Normal (applies to 74 mm[Hg] [facility] pressure non-numeric results) - [facility] Systolic blood 110 mm[Hg] 90-130 mmHg Normal (applies to 110 mm[Hg] [facility] pressure non-numeric results) - [facility] Oxygen therapy [place] [facility] al[facility] [Minimum Data - [place] Set] [facility] Oral temperature 98.1 [degF] 96.4-99.1 Normal (applies to 98.1 [degF ] [facility] DegF non-numeric results) - [facility] Oxygen saturation 95 % 94-100 % Normal (applies to 95 % [facility] in Blood non-numeric results) - [facility] Postductal by [place] Pulse oximetry [facility] Heart rate 75 bpm 60-100 bpm Normal (applies to 75 bpm [facility] non-numeric results) - [facility] Mean blood 80 mm[Hg] 80 mm[Hg] [facility] pressure by - [place] Noninvasive [facility] Diastolic blood 67 mm[Hg] 60-90 mmHg Normal (applies to 67 mm[Hg] [facility] pressure non-numeric results) - [facility] Systolic blood 106 mm[Hg] 90-130 mmHg Normal (applies to 106 mm[Hg] [facility] pressure non-numeric results) - [facility] Oxygen therapy [place] [facility] [Minimum Data - [place] Set] [facility] Respiratory rate 18 br/min 14-20 Normal (applies to 18 br/min [facility] br/min non-numeric results) - [facility] Oral temperature 98.4 [degF] 96.4-99.1 Normal (applies to 98.4 [degF ] [facility] DegF non-numeric results) - [facility] Oxygen saturation 99 % 94-100 % Normal (applies to 99 % [facility] in Blood non-numeric results) - [facility] Postductal by [place] Pulse oximetry [facility] Heart rate 79 bpm 60-100 bpm Normal (applies to 79 bpm [facility] non-numeric results) - [facility] Mean blood 92 mm[Hg] 92 mm[Hg] [place] pressure by - [place] Noninvasive [facility] Diastolic blood 77 mm[Hg] 60-90 mmHg Normal (applies to 77 mm[Hg] [facility] pressure non-numeric results) - [facility] Systolic blood 122 mm[Hg] 90-130 mmHg Normal (applies to 122 mm[Hg] N [facility] pressure non-numeric results) - [facility] Respiratory rate 16 br/min 14-20 Normal (applies to 16 br/min [facility] br/min non-numeric results) - [facility] Body mass index 17.6 kg/m2 17.6 kg/m2 [facility] ealth (BMI) [Ratio] - [facility] Body weight 46.75 kg 46.75 kg [facility] h Measured - [facility] Body height 163 cm 163 cm [facility] h - [facility] Body mass index 17.6 kg/m2 17.6 kg/m2 [facility] ealth (BMI) [Ratio] - [facility] Oxygen therapy [facility] alth [Minimum Data - [facility]] [facility] ID Date Data Source [id number] 02/28/2020 11:18:24 AM EDT [facility] l Name Value Range Interpretation Code Description Data Source(s) status N N Eduardo hayes [Interpretation] - Reported status N N Eduardo hayes [Interpretation] - Reported Patient Treatment Plan of Care Planned Activity Planned Date Details Description Data Source (s) Prazosin 1 MG Oral 08/12/2019 11:09:00 [facility] - Capsule AM [facility] olanzapine 10 mg oral 08/12/2019 11:09:00 [facility] - tablet AM [facility] Lorazepam 2 MG Oral 08/12/2019 11:09:00 [facility] - Tablet AM [facility] hydrOXYzine 08/12/2019 11:09:00 [facility] - AM EDT [facility] Vitamin D3 08/03/2019 10:52:00 [facility] 08/03/2019 10:52:00 [facility] - PM EDT [facility] zonisamide 100 MG Oral 08/03/2019 04:21:00 [facility] - Capsule PM [facility] zonisamide 100 MG Oral 08/03/2019 04:21:00 [facility] - Capsule PM EDT [facility] clobazam 20 MG Oral 08/03/2019 04:20:00 [facility] - Tablet PM EDT [facility] clobazam 20 MG Oral 08/03/2019 04:20:00 [facility] - Tablet PM EDT [facility] lacosamide 200 MG Oral 08/03/2019 04:19:00 [facility] - Tablet PM EDT [facility] lacosamide 200 MG Oral 08/03/2019 04:19:00 [facility] - Tablet PM EDT [facility]
[2020-03-01 06:28] VITALS: BMI 16.9
[2020-03-01] MEDS ORDERED: KETAMINE HCL 500 MG/10 ML VIAL ONE (07:18)
[2020-03-01] MEDS ORDERED: PROPOFOL 20 ML ONE (07:21)
[2020-03-01] MEDS ORDERED: SUCCINYLCHOLINE CHLORIDE 200 MG/10 ML SYRINGE ONE (07:21)
[2020-03-01 07:56] VITALS: TEMP 98.4
[2020-03-01 08:47] VITALS: BP 121/77; PULSE 72
== END 2020-03-01 09:00 ==
LOC: FECT 05:42
PROVIDERS: ATTEND Psychiatry & Neurology Psychiatry
PROC: GZB4ZZZ Other Electroconvulsive Therapy (ICD-10-PCS; principal; 2020-03-01 07:30)
DX: F32.9 Major depressive disorder, single episode, unspecified (principal)
CPT/HCPCS: 90870; 94760; C9803; U0003

== ENCOUNTER 2020-03-15 05:44 | Day surgery (SDC) | payer OTHER ==
[2020-03-12 15:40] VITALS: BMI 16.9
[2020-03-15 06:49] VITALS: TEMP 98.1
[2020-03-15] MEDS ORDERED: KETAMINE HCL 500 MG/10 ML VIAL ONE (07:58)
[2020-03-15 09:10] VITALS: BP 115/79; PULSE 76
== END 2020-03-15 09:25 ==
LOC: FECT 05:44
PROVIDERS: ATTEND Psychiatry & Neurology Psychiatry
PROC: GZB4ZZZ Other Electroconvulsive Therapy (ICD-10-PCS; principal; 2020-03-15 08:30)
DX: F32.9 Major depressive disorder, single episode, unspecified (principal)
CPT/HCPCS: 90870; 94760; C9803; U0003

== ENCOUNTER 2020-03-19 06:00 | Day surgery (SDC) | payer OTHER ==
[2020-03-15 15:39] VITALS: BMI 16.9
[2020-03-19] MEDS ORDERED: KETAMINE HCL 500 MG/10 ML VIAL ONE (07:04)
[2020-03-19 08:27] VITALS: TEMP 97.8
[2020-03-19 09:04] VITALS: BP 106/51; PULSE 68
== END 2020-03-19 09:07 | disposition home or self-care (01) ==
LOC: FECT 06:00
PROVIDERS: ATTEND Psychiatry & Neurology Psychiatry
PROC: GZB4ZZZ Other Electroconvulsive Therapy (ICD-10-PCS; principal; 2020-03-19 08:00)
DX: F32.9 Major depressive disorder, single episode, unspecified (principal)
CPT/HCPCS: 90870; 94760; C9803; U0003

== ENCOUNTER 2020-03-22 05:58 | Day surgery (SDC) | payer OTHER ==
[2020-03-15 15:42] VITALS: BMI 16.9
[2020-03-22] MEDS ORDERED: KETAMINE HCL 500 MG/10 ML VIAL ONE (07:35)
[2020-03-22 08:48] VITALS: TEMP 98.6
[2020-03-22 09:36] VITALS: BP 110/61; PULSE 68
== END 2020-03-22 09:50 ==
LOC: FECT 05:58
PROVIDERS: ATTEND Psychiatry & Neurology Psychiatry
PROC: GZB4ZZZ Other Electroconvulsive Therapy (ICD-10-PCS; principal; 2020-03-22 09:30)
DX: F32.9 Major depressive disorder, single episode, unspecified (principal)
CPT/HCPCS: 90870; 94760

== ENCOUNTER 2020-04-09 06:03 | Day surgery (SDC) | payer OTHER ==
[2020-04-03 18:08] VITALS: BMI 16.9
[2020-04-09] MEDS ORDERED: SUCCINYLCHOLINE CHLORIDE 200 MG/10 ML SYRINGE ONE (07:27)
[2020-04-09] MEDS ORDERED: PROPOFOL 20 ML ONE (07:27)
[2020-04-09] MEDS ORDERED: KETAMINE HCL 500 MG/10 ML VIAL ONE (08:03)
[2020-04-09 09:39] VITALS: TEMP 98.5
[2020-04-09 09:41] VITALS: BP 126/70; PULSE 78
== END 2020-04-09 09:35 ==
LOC: FECT 06:03
PROVIDERS: ATTEND Psychiatry & Neurology Psychiatry
PROC: GZB4ZZZ Other Electroconvulsive Therapy (ICD-10-PCS; principal; 2020-04-09 08:30)
DX: F32.9 Major depressive disorder, single episode, unspecified (principal)
CPT/HCPCS: 90870; 94760; C9803; U0003

== ENCOUNTER 2020-04-12 06:23 | Day surgery (SDC) | payer OTHER ==
[2020-04-11 14:36] VITALS: BMI 16.9
[2020-04-12] MEDS ORDERED: PROPOFOL 20 ML ONE (07:32)
[2020-04-12] MEDS ORDERED: KETAMINE HCL 500 MG/10 ML VIAL ONE (07:39)
[2020-04-12] MEDS ORDERED: MIDAZOLAM HCL 2 MG/2 ML SINGLE DOSE VIAL IVPUSH ONE ×2 (08:05→08:42)
[2020-04-12] MEDS ORDERED: MIDAZOLAM HCL 2 MG/2 ML SINGLE DOSE VIAL ONE (08:07)
[2020-04-12 09:11] VITALS: BP 104/74; PULSE 66; TEMP 98
== END 2020-04-12 09:30 ==
LOC: FECT 06:23
PROVIDERS: ATTEND Psychiatry & Neurology Psychiatry
PROC: GZB4ZZZ Other Electroconvulsive Therapy (ICD-10-PCS; principal; 2020-04-12 08:00)
DX: F32.9 Major depressive disorder, single episode, unspecified (principal)
CPT/HCPCS: 90870; 94760; C9803; U0003

== ENCOUNTER 2020-04-16 05:58 | Day surgery (SDC) | payer OTHER ==
[2020-04-12 18:29] VITALS: BMI 16.9
[2020-04-16] MEDS ORDERED: KETAMINE HCL 500 MG/10 ML VIAL ONE (07:28)
[2020-04-16 08:44] VITALS: BP 117/58; PULSE 71; TEMP 98.7
== END 2020-04-16 09:10 ==
LOC: FECT 05:58
PROVIDERS: ATTEND Psychiatry & Neurology Psychiatry
PROC: GZB4ZZZ Other Electroconvulsive Therapy (ICD-10-PCS; principal; 2020-04-16 07:30)
DX: F32.9 Major depressive disorder, single episode, unspecified (principal)
CPT/HCPCS: 90870; 94760; C9803; U0003

== ENCOUNTER 2020-07-06 06:03 | Day surgery (SDC) | payer OTHER ==
[2020-06-25 13:45] VITALS: BMI 18.8
[2020-07-06] MEDS ORDERED: KETAMINE HCL 500 MG/10 ML VIAL ONE (07:36)
[2020-07-06 08:24] VITALS: TEMP 98.7
[2020-07-06 09:04] VITALS: BP 122/61; PULSE 69
== END 2020-07-06 09:05 | disposition home or self-care (01) ==
LOC: FECT 06:03
PROVIDERS: ATTEND Psychiatry & Neurology Psychiatry
PROC: GZB4ZZZ Other Electroconvulsive Therapy (ICD-10-PCS; principal; 2020-07-06 07:30)
DX: F32.9 Major depressive disorder, single episode, unspecified (principal)
CPT/HCPCS: 90870; 94760

== ENCOUNTER 2020-07-19 06:10 | Day surgery (SDC) | payer OTHER ==
[2020-07-19 06:47] VITALS: BMI 20.9
[2020-07-19] MEDS ORDERED: KETAMINE HCL 500 MG/10 ML VIAL ONE (07:21)
[2020-07-19 08:50] VITALS: TEMP 98.4
[2020-07-19 09:00] VITALS: BP 130/68; PULSE 80
== END 2020-07-19 08:50 | disposition home or self-care (01) ==
LOC: FECT 06:10
PROVIDERS: ATTEND Psychiatry & Neurology Psychiatry
PROC: GZB4ZZZ Other Electroconvulsive Therapy (ICD-10-PCS; principal; 2020-07-19 07:30)
DX: F32.9 Major depressive disorder, single episode, unspecified (principal)
CPT/HCPCS: 90870; 94760; C9803; U0003

== ENCOUNTER 2020-07-23 06:01 | Day surgery (SDC) | payer OTHER, BC ==
[2020-07-19 15:23] VITALS: BMI 18.8
[2020-07-23] MEDS ORDERED: KETAMINE HCL 500 MG/10 ML VIAL ONE (08:16)
[2020-07-23 09:44] VITALS: BP 119/62; PULSE 82; TEMP 98.6
== END 2020-07-23 09:40 | disposition home or self-care (01) ==
LOC: FECT 06:01
PROVIDERS: ATTEND Psychiatry & Neurology Psychiatry
PROC: GZB4ZZZ Other Electroconvulsive Therapy (ICD-10-PCS; principal; 2020-07-23 08:30)
DX: F32.9 Major depressive disorder, single episode, unspecified (principal)
CPT/HCPCS: 90870; 94760

== ENCOUNTER 2020-07-30 07:00 | Day surgery (SDC) | payer OTHER, BC ==
[2020-07-30 07:33] VITALS: BMI 21.3
[2020-07-30] MEDS ORDERED: KETAMINE HCL 500 MG/10 ML VIAL ONE (08:24)
[2020-07-30 09:44] VITALS: TEMP 98.1
[2020-07-30 09:58] VITALS: BP 118/69; PULSE 77
[2020-07-30] MEDS ORDERED: PROMETHAZINE HCL 25 MG/1 ML VIAL IVPUSH PRN (10:18)
[2020-07-30] MEDS ORDERED: ACETAMINOPHEN 325 MG TABLET (FP) PO PRN (10:18)
[2020-07-30] MEDS ORDERED: LACTATED RINGERS SOLUTION 1,000 ML IV SCH (10:30)
== END 2020-07-30 10:05 | disposition home or self-care (01) ==
LOC: FASU 07:00
PROVIDERS: ATTEND Psychiatry & Neurology Psychiatry
PROC: GZB4ZZZ Other Electroconvulsive Therapy (ICD-10-PCS; principal; 2020-07-30 09:30)
DX: F32.9 Major depressive disorder, single episode, unspecified (principal)
CPT/HCPCS: 90870; 94760

== ENCOUNTER 2020-08-06 08:00 | Day surgery (SDC) | payer OTHER, BC ==
[2020-07-31 11:22] VITALS: BMI 21.3
[2020-08-06] MEDS ORDERED: KETAMINE HCL 500 MG/10 ML VIAL ONE (09:27)
[2020-08-06 10:52] VITALS: TEMP 98.8
[2020-08-06 11:04] VITALS: BP 138/66; PULSE 84
== END 2020-08-06 11:00 | disposition home or self-care (01) ==
LOC: FECT 08:00
PROVIDERS: ATTEND Psychiatry & Neurology Psychiatry
PROC: GZB4ZZZ Other Electroconvulsive Therapy (ICD-10-PCS; principal; 2020-08-06 09:30)
DX: F32.9 Major depressive disorder, single episode, unspecified (principal)
CPT/HCPCS: 90870; 94760

== ENCOUNTER 2020-08-20 08:03 | Day surgery (SDC) | payer OTHER, BC ==
[2020-08-07 14:46] VITALS: BMI 21.3
[2020-08-20] MEDS ORDERED: KETAMINE HCL 500 MG/10 ML VIAL ONE (09:37)
[2020-08-20 10:11] VITALS: TEMP 98.6
[2020-08-20 10:52] VITALS: BP 121/76; PULSE 77
== END 2020-08-20 11:00 | disposition home or self-care (01) ==
LOC: FECT 08:03
PROVIDERS: ATTEND Psychiatry & Neurology Psychiatry
PROC: GZB4ZZZ Other Electroconvulsive Therapy (ICD-10-PCS; principal; 2020-08-20 09:30)
DX: F32.9 Major depressive disorder, single episode, unspecified (principal)
CPT/HCPCS: 90870; 94760

== ENCOUNTER 2020-09-03 06:03 | Day surgery (SDC) | payer OTHER, BC ==
[2020-09-03 07:20] VITALS: BMI 21.3
[2020-09-03] MEDS ORDERED: KETAMINE HCL 500 MG/10 ML VIAL ONE (08:26)
[2020-09-03 09:07] VITALS: PULSE 74
[2020-09-03 09:21] VITALS: TEMP 98.4
[2020-09-03 09:43] VITALS: BP 116/56
== END 2020-09-03 09:50 | disposition home or self-care (01) ==
LOC: FECT 06:03
PROVIDERS: ATTEND Psychiatry & Neurology Psychiatry
PROC: GZB4ZZZ Other Electroconvulsive Therapy (ICD-10-PCS; principal; 2020-09-03 08:30)
DX: F32.9 Major depressive disorder, single episode, unspecified (principal)
CPT/HCPCS: 90870; 94760

== ENCOUNTER 2020-09-10 06:09 | Day surgery (SDC) | payer OTHER, BC ==
[2020-08-21 07:35] VITALS: BMI 21.2
[2020-09-10] MEDS ORDERED: SUCCINYLCHOLINE CHLORIDE 200 MG/10 ML SYRINGE ONE (08:05)
[2020-09-10] MEDS ORDERED: PROPOFOL 20 ML ONE ×2 (08:05)
[2020-09-10] MEDS ORDERED: KETAMINE HCL 500 MG/10 ML VIAL ONE (08:26)
[2020-09-10] MEDS ORDERED: KETOROLAC TROMETHAMINE 30 MG/1 ML VIAL ONE (08:30)
[2020-09-10] MEDS ORDERED: DEXAMETHASONE SOD PHOSPHATE 4 MG/1 ML VIAL ONE (08:30)
[2020-09-10] MEDS ORDERED: ONDANSETRON 4 MG/2 ML VIAL ONE (08:30)
[2020-09-10 09:00] VITALS: TEMP 98.7
[2020-09-10 09:27] VITALS: BP 120/72; PULSE 68
== END 2020-09-10 09:35 | disposition home or self-care (01) ==
LOC: FECT 06:09
PROVIDERS: ATTEND Psychiatry & Neurology Psychiatry
PROC: GZB4ZZZ Other Electroconvulsive Therapy (ICD-10-PCS; principal; 2020-09-10 08:30)
DX: F32.9 Major depressive disorder, single episode, unspecified (principal)
CPT/HCPCS: 90870; 94760

== ENCOUNTER 2020-10-15 09:13 | Day surgery (SDC) | payer OTHER, BC ==
[2020-10-15 10:46] VITALS: BMI 21.3
[2020-10-15] MEDS ORDERED: KETAMINE HCL 500 MG/10 ML VIAL ONE (11:36)
[2020-10-15 12:50] VITALS: TEMP 98
[2020-10-15 13:04] VITALS: BP 112/62; PULSE 74
== END 2020-10-15 13:05 | disposition home or self-care (01) ==
LOC: FECT 09:13
PROVIDERS: ATTEND Psychiatry & Neurology Psychiatry
PROC: GZB4ZZZ Other Electroconvulsive Therapy (ICD-10-PCS; principal; 2020-10-15 11:00)
DX: F32.9 Major depressive disorder, single episode, unspecified (principal)
CPT/HCPCS: 90870; 94760

== ENCOUNTER 2020-10-22 09:11 | Day surgery (SDC) | payer OTHER, BC ==
[2020-10-19 09:42] VITALS: BMI 21.3
[2020-10-22 12:42] VITALS: BP 118/73; PULSE 77; TEMP 98
== END 2020-10-22 12:45 | disposition home or self-care (01) ==
LOC: FECT 09:11
PROVIDERS: ATTEND Psychiatry & Neurology Psychiatry
PROC: GZB4ZZZ Other Electroconvulsive Therapy (ICD-10-PCS; principal; 2020-10-22 11:30)
DX: F33.2 Major depressive disorder, recurrent severe without psychotic features (principal)
CPT/HCPCS: 90870; 94760

== ENCOUNTER 2020-10-29 08:03 | Day surgery (SDC) | payer OTHER, BC ==
[2020-10-24 13:43] VITALS: BMI 21.2
[2020-10-29] MEDS ORDERED: KETAMINE HCL 500 MG/10 ML VIAL ONE (09:33)
[2020-10-29] MEDS ORDERED: PROMETHAZINE HCL 25 MG/1 ML VIAL IVPB PRN (10:34)
[2020-10-29] MEDS ORDERED: ACETAMINOPHEN 325 MG TABLET (FP) PO PRN (10:34)
[2020-10-29 10:45] VITALS: TEMP 98.6
[2020-10-29] MEDS ORDERED: LACTATED RINGERS SOLUTION 1,000 ML IV SCH (10:45)
[2020-10-29 10:46] VITALS: BP 115/77; PULSE 66
== END 2020-10-29 10:45 | disposition home or self-care (01) ==
LOC: FECT 08:03
PROVIDERS: ATTEND Psychiatry & Neurology Psychiatry
PROC: GZB4ZZZ Other Electroconvulsive Therapy (ICD-10-PCS; principal; 2020-10-29 08:30)
DX: F33.2 Major depressive disorder, recurrent severe without psychotic features (principal)
CPT/HCPCS: 90870; 94760

== ENCOUNTER 2020-11-06 06:11 | Day surgery (SDC) | payer OTHER ==
[2020-11-06 07:09] VITALS: BMI 21.2
[2020-11-06] MEDS ORDERED: KETAMINE HCL 500 MG/10 ML VIAL ONE (07:47)
[2020-11-06 08:33] VITALS: TEMP 98
[2020-11-06 08:57] VITALS: BP 122/66; PULSE 69
== END 2020-11-06 09:00 | disposition home or self-care (01) ==
LOC: FECT 06:11
PROVIDERS: ATTEND Psychiatry & Neurology Psychiatry
PROC: GZB4ZZZ Other Electroconvulsive Therapy (ICD-10-PCS; principal; 2020-11-06 08:30)
DX: F32.9 Major depressive disorder, single episode, unspecified (principal)
CPT/HCPCS: 90870; 94760

== ENCOUNTER 2020-11-26 07:49 | Day surgery (SDC) | payer OTHER, BC ==
[2020-11-08 11:06] VITALS: BMI 21.2
[2020-11-26] MEDS ORDERED: KETAMINE HCL 500 MG/10 ML VIAL ONE (11:00)
[2020-11-26 12:52] VITALS: TEMP 98.4
[2020-11-26 12:59] VITALS: BP 133/64; PULSE 88
== END 2020-11-26 12:45 | disposition home or self-care (01) ==
LOC: FECT 07:49
PROVIDERS: ATTEND Psychiatry & Neurology Psychiatry
PROC: GZB4ZZZ Other Electroconvulsive Therapy (ICD-10-PCS; principal; 2020-11-26 11:30)
DX: F32.9 Major depressive disorder, single episode, unspecified (principal)
CPT/HCPCS: 90870; 94760

== ENCOUNTER 2020-12-03 08:09 | Day surgery (SDC) | payer OTHER ==
[2020-11-26 14:51] VITALS: BMI 21.2
[2020-12-03] MEDS ORDERED: KETAMINE HCL 500 MG/10 ML VIAL ONE (09:46)
[2020-12-03 11:00] VITALS: TEMP 98.1
[2020-12-03 11:16] VITALS: BP 122/72; PULSE 75
== END 2020-12-03 11:20 | disposition home or self-care (01) ==
LOC: FECT 08:09 → FASU 08:09
PROVIDERS: ATTEND Psychiatry & Neurology Psychiatry
PROC: GZB4ZZZ Other Electroconvulsive Therapy (ICD-10-PCS; principal; 2020-12-03 10:30)
DX: F32.9 Major depressive disorder, single episode, unspecified (principal)
CPT/HCPCS: 90870; 94760

== ENCOUNTER 2020-12-10 08:03 | Day surgery (SDC) | payer OTHER ==
[2020-12-10 08:47] VITALS: BMI 21.2
[2020-12-10] MEDS ORDERED: SUCCINYLCHOLINE CHLORIDE 200 MG/10 ML SYRINGE ONE (10:59)
[2020-12-10] MEDS ORDERED: PROPOFOL 20 ML ONE (10:59)
[2020-12-10] MEDS ORDERED: KETAMINE HCL 500 MG/10 ML VIAL ONE (10:59)
[2020-12-10] MEDS ORDERED: ONDANSETRON 4 MG/2 ML VIAL ONE (11:02)
[2020-12-10] MEDS ORDERED: LIDOCAINE HCL/PF 2% SDV 5ML VIAL ONE (11:02)
[2020-12-10] MEDS ORDERED: DEXAMETHASONE SOD PHOSPHATE 4 MG/1 ML VIAL ONE (11:02)
[2020-12-10 11:59] VITALS: TEMP 98
[2020-12-10 12:18] VITALS: BP 121/77; PULSE 69
== END 2020-12-10 12:20 | disposition home or self-care (01) ==
LOC: FECT 08:03
PROVIDERS: ATTEND Psychiatry & Neurology Psychiatry
PROC: GZB4ZZZ Other Electroconvulsive Therapy (ICD-10-PCS; principal; 2020-12-10 10:30)
DX: F32.9 Major depressive disorder, single episode, unspecified (principal)
CPT/HCPCS: 90870; 94760

== ENCOUNTER 2020-12-17 09:15 | Day surgery (SDC) | payer OTHER ==
[2020-12-13 14:51] VITALS: BMI 21.2
[2020-12-17] MEDS ORDERED: KETAMINE HCL 500 MG/10 ML VIAL ONE (10:02)
[2020-12-17 11:40] VITALS: TEMP 97.8
[2020-12-17 11:45] VITALS: BP 102/68; PULSE 81
== END 2020-12-17 11:30 | disposition home or self-care (01) ==
LOC: FECT 09:15
PROVIDERS: ATTEND Psychiatry & Neurology Psychiatry
PROC: GZB4ZZZ Other Electroconvulsive Therapy (ICD-10-PCS; principal; 2020-12-17 10:30)
DX: F32.9 Major depressive disorder, single episode, unspecified (principal)
CPT/HCPCS: 90870; 94760

== ENCOUNTER 2021-01-14 06:55 | Day surgery (SDC) | payer OTHER ==
[2021-01-14 08:10] LABS: BASO % 0.8 % (0-2.0); EOS % 1.9 % (0-4.5); HEMATOCRIT 39.3 % (32.4-45.2); HEMOGLOBIN 13.4 GM/dl (10.7-15.3); LYMPH % 26.2 % (8-40); MCH 30.2 pg (25.7-33.7); MEAN PLT VOLUME 8.1 fl (7.5-11.1); MONO % 9.9 % (3.8-10.2); NEUT % 61.2 % (42.8-82.8); PLATELET COUNT 254 10^3/uL (134-434); RBC 4.42 M/mm3 (3.60-5.2); RDW 13.1 % (11.6-15.6); WHITE BLOOD COUNT 6.2 K/mm3 (4.0-10.8)
[2021-01-14 08:23] LABS: ALBUMIN 4.3 g/dl (3.4-5.0); BILIRUBIN,TOTAL 0.8 mg/dl (0.2-1); CALCIUM 9.2 mg/dl (8.5-10); CREATININE 0.8 mg/dl (0.55-1.3)
[2021-01-14 10:20] VITALS: BMI 21.2
[2021-01-14] MEDS ORDERED: KETAMINE HCL 500 MG/10 ML VIAL ONE (10:46)
[2021-01-14 11:43] VITALS: TEMP 98
[2021-01-14 12:23] VITALS: BP 121/71; PULSE 64
== END 2021-01-14 12:15 | disposition home or self-care (01) ==
LOC: FECT 06:55
PROVIDERS: ATTEND Psychiatry & Neurology Psychiatry
PROC: GZB4ZZZ Other Electroconvulsive Therapy (ICD-10-PCS; principal; 2021-01-14 11:00)
DX: F32.9 Major depressive disorder, single episode, unspecified (principal)
CPT/HCPCS: 36415; 80053; 85025; 90870; 93005; 94760